=== PATIENT | male | born 1965 | race Caucasian/White ===

== ENCOUNTER → 2020-02-16 16:06 | Outpatient (BNVA) | payer BC, SELFPAY | PROVIDERS: Family Provider Family Medicine; PCP Family Medicine; Visit Provider Internal Medicine | DX: K70.31 Alcoholic cirrhosis of liver with ascites (principal); B19.20 Unspecified viral hepatitis C without hepatic coma; F10.10 Alcohol abuse, uncomplicated; K72.90 Hepatic failure, unspecified without coma | CPT/HCPCS: 80053; 82105; 85025 ==

== ENCOUNTER → 2020-02-18 09:19 | Day surgery (SDC) | payer BC, SELFPAY ==
--- NOTE | 2020-02-18 09:30 | US_ITS ---
WS: [id number] US abdomen lmt fluid [id number] REASON FOR EXAM: MIREYA FOR PARA FINDINGS: Ultrasound guidance for localization of ascites. Utilizing ultrasound at a depth of 2.13 cm and 4.51 cm paracentesis was performed. US/US abdomen lmt fluid [id number] IMPRESSION: Ultrasound localization for paracentesis.
[2020-02-18 09:59] VITALS: BP 116/68; PULSE 129; RESP 18; TEMP 36.9; BMI 41.5
--- NOTE | 2020-02-21 09:44 | PM.ACPR ---
Acute Procedures Paracentesis: Time out performed: Yes Indication: Ascites Procedure: therapeutic paracentesis Location: RLQ Local anesthetic used: lidocaine 1% Bedside ultrasound used: yes, Ascites confirmed and location marked Preparation: sterile prep and drape and 11 blade used to make angela in skin Amount of fluid obtained (ml): 4,200 Fluid: clear Post procedure exam: awake, alert Patient tolerated procedure: well
== END ==
PROVIDERS: Family Provider Family Medicine; PCP Family Medicine; Visit Provider Internal Medicine
DX: K70.31 Alcoholic cirrhosis of liver with ascites (principal)
CPT/HCPCS: 12345; 49082; 76705

== ENCOUNTER → 2020-05-05 11:19 | Day surgery (SDC) | payer BC, SELFPAY ==
--- NOTE | 2020-05-05 11:21 | US_ITS ---
WS: [id number] Abdominal ultrasound, limited. History: Evaluate for ascites. Comparison: None. All 4 quadrants are imaged by ultrasound to evaluate for ascites. Large amount of peritoneal ascites is identified. Abdominal wall is marked for paracentesis for Dr. Villalobos. US/US abdomen limited [id number] IMPRESSION: Large amount of ascites.
[2020-05-05 11:30] VITALS: BP 150/100; PULSE 97; RESP 20; TEMP 36.3; O2SAT 97; BMI 41.5
[2020-05-05 12:20] VITALS: BP 116/75; PULSE 81; RESP 20; O2SAT 96
[2020-05-05 13:21] VITALS: BP 146/84; PULSE 85; RESP 18; TEMP 36.3; O2SAT 98
--- NOTE | 2020-05-12 14:08 | PM.ACPR ---
Acute Procedures Paracentesis: Time out performed: Yes Indication: Ascites Procedure: therapeutic paracentesis Location: RLQ Local anesthetic used: lidocaine 1% Amount of anesthesia used (ml): 10 Bedside ultrasound used: yes, Ascites confirmed and location marked Preparation: sterile prep and drape Amount of fluid obtained (ml): 9,500 Fluid: clear Post procedure exam: awake, alert Patient tolerated procedure: well Complications: none
== END ==
PROVIDERS: PCP Family Medicine; Visit Provider Internal Medicine
DX: R18.8 Other ascites (principal)
CPT/HCPCS: 12345; 49082; 76705; J1100; J2405; J2704; J2710; J3010; J3490

== ENCOUNTER 2020-05-06 15:34 | Emergency (ER) | payer BC, SELFPAY ==
[2020-05-06 16:22] VITALS: BP 121/71; PULSE 97; RESP 19; TEMP 36.5; O2SAT 98; BMI 39.5
--- NOTE | 2020-05-06 17:06 | PC.NURSE ---
Read and agree with assessment
--- NOTE | 2020-05-06 17:29 | ED_ITS ---
HPI - General Adult General: Chief complaint: General Medical Stated complaint: leaking paracentesis site Time Seen by Provider: 05/06/20 16:52 Source: patient Mode of arrival: ambulatory Limitations: no limitations History of Present Illness: HPI narrative: Patient had a paracentesis performed yesterday by Dr. Villalobos. This is routine done for liver disease. Patient states since that time he has had persistent leaking of the fluid from his abdomen. He denies any lightheadedness, dizziness, fever, abdominal pain, chills or other complaints. He just has this persistent leak. Because he could not get it to stop he chose to come here for further evaluation and care. Associated symptoms: Deny chest pain, dyspnea, headache(s), nausea, rash, palpitations, syncope or vomiting Review of Systems Const: Denies: fever(s) Eyes: Denies: change in vision or blurry vision ENMT: Denies: throat pain or hoarseness Card: Denies: chest pain, palpitations, syncope, pre-syncope or dyspnea on exertion Resp: Denies: dyspnea, productive cough or non-productive cough GI: Denies: abdominal pain, nausea, vomiting or diarrhea : Denies: flank pain, dysuria, urinary frequency or urinary urgency Musc: Denies: neck pain, back pain or extremity pain Skin/Breast: Denies: rash or pruritus Neuro: Denies: headache(s), numbness in extremities, weakness in extremities or dizziness PFSH ED PFSH: Medical History Charcot's arthropathy Erectile dysfunction History of abdominal paracentesis Hx of esophageal varices Neuropathy Peyronie disease PVD (peripheral vascular disease) Surgical History Hx of umbilical hernia repair Hx of vasectomy Family History Grandfather CAD (coronary artery disease) Grandmother CAD (coronary artery disease) Cancer Father Cancer Social History Smoking and tobacco status: light tobacco smoker Alcohol intake: current Alcohol intake frequency: 0-2 Drinks per Day Alcohol type: beer Substance/Drug Use: never Adopted: No Caregiver/support person: No Lives independently: No Marital status: Current occupational status: employed History of recent travel: No Current gender identity: Male Physical Exam Const: COMMON NORMALS: no acute distress, patient oriented x3, no limitations, healthy appearing and well nourished GENERAL APPEARANCE: cooperative, well kempt and well developed HENMT: COMMON NORMALS: normocephalic, atraumatic, external ears normal, EAC's normal and Normal external nose present HEAD & SCALP: normal to inspection, normocephalic and atraumatic FACE & SINUS: normal facial exam and face symmetric NOSE: Normal external nose present and Normal nares present EXTERNAL EAR: Yes external ears normal EXTERNAL AUDITORY CANAL: EAC's normal MOUTH: Normal oral and palatal mucosa present, lip normal and tongue normal Eye: COMMON NORMALS: Equal, round and reactive pupils present and conjunctivae normal GENERAL EYE: appearance normal, both eyes and all related structures ALIGNMENT: Yes alignment normal PERIORBITAL: periorbital findings normal EYELID: eyelids normal CONJUNCTIVA: Yes conjunctivae normal SCLERA: sclerae normal PUPIL: Yes Equal, round and reactive pupils present Neck/C-Spine: COMMON NORMALS: full ROM, no lymphadenopathy, supple, no meningeal signs and no JVD GENERAL: Yes normal visual inspection and Yes trachea midline Chest: COMMONS NORMALS: normal inspection of the chest and normal palpation of entire chest wall Resp: COMMON NORMALS: normal respiratory effort, No retractions, No use of accessory muscles and clear to auscultation bilaterally EFFORT & INSPECTION: Yes able to speak in complete sentences and Yes symmetric chest movement AUSCULTATION: clear to auscultation bilaterally, no crackles, no rales, no rhonchi and no wheezes Cardio: COMMON NORMALS: no JVD, regular rate, regular rhythm, S1 normal heart sound present and S2 normal heart sound present RATE: regular rate RHYTHM: regular rhythm HEART SOUNDS: S1 normal heart sound present, S2 normal heart sound present, no click, no gallops, no murmurs, no rubs and abnormal split S2 GI: COMMON NORMALS: Soft to palpation and No hepatosplenomegaly present INSPECTION: Yes other (Small steady ascitic fluid leak from right lower quadrant of the abdomen) PALPATION: Yes Soft to palpation, No Tenderness to palpation present (GI), No Guarding due to palpation present (GI), No Rigid due to palpation, Yes No hepatosplenomegaly present, No Hernia present, No Palpable mass present and No Pulsatile mass present : COMMON NORMALS: Yes no CVA tenderness BLADDER/KIDNEY EXAM: Yes no CVA tenderness Back/Pelvis: COMMON NORMALS: no CVA tenderness, thoracic and lumbar spine normal to inspection, no thoracic nor lumbar tenderness and thoraco-lumbar ROM normal Extremity: COMMON NORMALS: normal to inspection, full ROM, capillary refill normal, no joint enlargement, no clubbing, cyanosis or edema and no calf tenderness Neuro: COMMON NORMALS: patient oriented x3, CN's II-XII intact bilaterally, moves all extremities, no focal motor deficits and no sensory deficits noted MENINGEAL SIGNS: Yes no meningeal signs SPEECH: speech normal Psych: COMMON NORMALS: mental status grossly normal, Normal thought process present, cooperative, normal affect, speech normal and activity/motor behavior normal APPEARANCE: Yes well kempt SPEECH: Yes normal speech THOUGHT PROCESS: Normal thought process present Skin: COMMON NORMALS: no rashes or lesions noted, turgor normal, no jaundice, no petechiae and no mottling GENERAL SKIN EXAM: no rashes or lesions noted and turgor normal Procedures Laceration Laceration 1: Description: stellate Depth: simple, single layer Local Anesthetic: lidocaine 1% Amount of anesthesia used (mL): 10 Skin layer closed with: nylon Size (cm): 4-0 Number of sutures: 1 Technique: other ([id number]) Course Vital Signs: Vital signs: Vital Signs Temperature 97.7 F 05/06/20 16:22 Pulse Rate 97 05/06/20 16:22 Respiratory Rate 19 H 05/06/20 16:22 Blood Pressure 121/71 05/06/20 16:22 Pulse Oximetry 98 05/06/20 16:22 MDM - General Adult MDM Narrative: Medical decision making narrative: Patient tolerated the [id number] stitch well. There is no further leaking or bleeding present. Patient was advised to return to the ER in 7 days to have this removed or to follow-up with Dr. Villalobos for removal. Discharge Plan Discharge Patient Disposition: Home Clinical Impression: Status post abdominal paracentesis Condition: Stable Prescriptions: New ciprofloxacin HCl [Cipro] 500 mg tablet 500 mg PO BID Qty: 20 RF: 0 metronidazole [Flagyl] 500 mg tablet 500 mg PO TID 10 Days Qty: 30 RF: 0 No Action vitamin E (dl, acetate) 400 unit capsule 400 unit PO DAILY RF: 0 pentoxifylline 400 mg tablet extended release 400 mg PO TID RF: 0 sildenafil 100 mg tablet 100 mg PO DAILY PRN (Reason: OTHER) RF: 0 potassium chloride [Klor-Con M20] 20 mEq tablet,ER particles/crystals 20 meq PO DAILY RF: 0 furosemide [Lasix] 40 mg tablet 40 mg PO BID RF: 0 ferrous sulfate 325 mg (65 mg iron) tablet 325 mg PO DAILY RF: 0 folic acid 400 mcg tablet 0.4 mg PO DAILY RF: 0 pantoprazole 40 mg tablet,delayed release (DR/EC) 40 mg PO DAILY RF: 0 meloxicam 7.5 mg tablet 7.5 mg PO DAILY RF: 0 vitamin B complex [B Complex-Vitamin B12] Tablet 1 tab PO DAILY RF: 0 thiamine HCl (vitamin B1) 500 mg tablet 500 mg PO DAILY RF: 0 spironolactone [Aldactone] 100 mg tablet 100 mg PO DAILY Qty: 90 RF: 3 tadalafil 20 mg tablet 20 mg PO DAILY PRN (Reason: sexual activity) Qty: 20 RF: 12 Cardizem 120 mg PO RF: 0 tramadol 50 mg PO DAILY RF: 0 Referrals: Yosvany Segovia MD [Primary Care Provider] - 7-10 days Jerry Villalobos MD [Physician] - 7-10 days Discharge Diet: Usual diet Discharge Activity: Increase activity as tolerated Patient Instructions: Laceration (ED) Activity Restrictions/Additional Instructions: Please return to the ER immediately for any of the signs or symptoms listed on your discharge instruction sheets, worsening/changing of your symptoms, you are not getting better as quickly as expected, or for ANY other cause or concerns. Return here, see Dr. Segovia or Dr. Villalobos for removal of your stitches in 7 to 10 days. Return to the ER for fever, return of leaking, or for any other cause for concern. 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
[2020-05-06] MEDS: lidocaine 1% INJ 20 mL INJECTION (17:56)
[2020-05-06 17:57] VITALS: BP 142/88; PULSE 96; RESP 18; O2SAT 96
== END 2020-05-06 18:00 | disposition home or self-care (01) ==
PROVIDERS: Emergency Provider Emergency Medicine; PCP Family Medicine
DX: T81.89XA Other complications of procedures, not elsewhere classified, initial encounter (principal); F17.210 Nicotine dependence, cigarettes, uncomplicated
CPT/HCPCS: 12001; 12345; 99281; 99282

== ENCOUNTER → 2020-05-12 11:13 | Day surgery (SDC) | payer BC, SELFPAY ==
--- NOTE | 2020-05-12 11:37 | US_ITS ---
WS: [id number] Limited abdomen ultrasound, 05/12/2020 Clinical Data: ascites Comparison: Limited abdomen ultrasound, 05/05/2020. Findings: There was a large amount of ascites in all 4 quadrants of the abdomen. Dr. Villalobos will perform the p aracentesis. US/US abdomen limited [id number] Impression: Large amount of ascites.
[2020-05-12 11:49] VITALS: BP 125/80; PULSE 101; RESP 18; TEMP 36.5; O2SAT 98; BMI 39.5
--- NOTE | 2020-05-12 14:05 | PM.ACPR ---
Acute Procedures Paracentesis: Time out performed: Yes Indication: Ascites Procedure: therapeutic paracentesis Location: LLQ Local anesthetic used: lidocaine 1% Amount of anesthesia used (ml): 10 Bedside ultrasound used: yes, Ascites confirmed and location marked Amount of fluid obtained (ml): 11,000 Fluid: clear Post procedure exam: awake, alert Patient tolerated procedure: well Complications: none Additional comments: Since he has a propensity towards leakage after his procedure I closed the stoma with 1 vertical mattress suture with 2-0 suture.
== END ==
LOC: RAD 11:17 → OPS 11:41
PROVIDERS: PCP Family Medicine; Visit Provider Internal Medicine
DX: R18.8 Other ascites (principal)
CPT/HCPCS: 12345; 49082; 76705

== ENCOUNTER → 2020-05-19 12:42 | Outpatient (BNVA) | payer BC, SELFPAY | PROVIDERS: PCP Family Medicine | DX: Z01.818 Encounter for other preprocedural examination (principal); K72.90 Hepatic failure, unspecified without coma; Z20.828 Contact with and (suspected) exposure to other viral communicable diseases | CPT/HCPCS: 87635 ==

== ENCOUNTER 2020-05-24 07:06 | Day surgery (SDC) | payer BC, SELFPAY ==
[2020-05-23 14:44] VITALS: BMI 40.6
[2020-05-24] VITALS (12 sets, daily range): BP systolic 98–142; BP diastolic 67–86; PULSE 94–118; RESP 12–20; TEMP 36.1–36.6; O2SAT 95–98
[2020-05-24] MEDS: sodium chloride 0.9% 1,000 ML 30 ML IV (07:53)
[2020-05-24] MEDS: vancomycin 1,000 MG in sodium chloride 0.9% 250 ML 250 MG IV (07:53)
--- NOTE | 2020-05-24 07:58 | P.ANESASSM_ITS ---
Pre-Anesthetic Assessment Pre-Anesthetic Assessment: Height/Weight: Height 1.83 m Weight 136.078 kg Temp Pulse Resp BP Pulse Ox 97.7 F 100 18 139/86 98 05/24/20 07:25 05/24/20 07:25 05/24/20 07:25 05/24/20 07:25 05/24/20 07:25 Preop Diagnosis: Ascites Proposed Procedure: Operation Date: 05/24/20 08:20 Proposed Procedures p Peritoneal Catheter [id number]/ K70.310 ascites(Not Applicable) - Keith Brown MD Familial anesthetic complications: Said he developed irregular heartbeat during his egd w/ banding of his varices Was Beta Rosana taken within 24 hours: N/A Last intake: Intake Last Liquid Date 05/24/20 Last Liquid Time 06:00 Last Solid Date 05/23/20 Last Solid Time 18:30 Social: Social History: Alcohol and Tobacco Comment: heavy drinker in past (cirrhosis) Exam: Pre-Anes Outpt Exam: alert, oriented x 3, clear to auscultation b ilaterally and regular rate & rhythm Airway: Cervical ROM: WNL MP: 2 Dentition: Chipped Additional comments: large neck circumference CV/HEM: CV/HEM: Afib, HTN and PVD : : None reported Hepatic: Hepatic: Cirrohsis Comments: esophageal varices Metabolic: Metabolic: Morbid obesity and Thyroid Musc/skel: Musc/skel: OA/DJD Neuropsych: Neuropsych: Neuropathy and Seizure (several years ago d/t etoh withdrawal) Anesthetic Plan: ASA status: 4 Anesthesia: MAC Risk of > 500 ml blood loss (7ml/kg in children): No Meds/Allergies Current Medications: Current Medications Generic Name Dose Route Start Last Admin Trade Name Freq PRN Reason Stop Dose Admin Vancomycin HCl 1,0 00 mg/ 250 mls @ 250 mls /hr 05/24/20 07:04 05/24/20 07:53 Sodium Chloride IV 05/24/20 08:03 250 mls/hr ONCE ONE Administration Protocol Sodium Chloride 1,000 mls @ 30 ml s/hr 05/24/20 07:15 05/24/20 07:53 Sodium Chloride 0.9% IV 05/25/20 07:14 30 mls/hr .Q24H DHAVAL Administration PFSH Anesthesia PFSH: Medical History Charcot's arthropathy End-stage liver disease Erectile dysfunction History of abdominal paracentesis Hx of esophageal varices Neuropathy Peyronie disease PVD (peripheral vascular disease) Surgical History H/O colonoscopy 10-12 yrs H/O esophagogastroduodenoscopy History of tonsillectomy Hx of umbilical hernia repair Hx of vasectomy Family History Grandfather CAD (coronary artery disease) Grandmother CAD (coronary artery disease) Cancer Father Cancer Denies family history of Anesthesia complication Bleeding disorder Social History Smoking and tobacco status: light tobacco smoker Alcohol intake: current Alcohol intake frequency: 0-2 Drinks per Day Alcohol type: beer Adopted: No Caregiver/support person: No Lives independently: No Marital status: Current occupational status: employed History of recent travel: No Current gender identity: Male Data Anesthesia CBC & Chem 7: 05/24/20 07:51 05/24/20 07:51 Cardiac Studies: No Data to Display
[2020-05-24 07:59] LABS: Basophils # 0.1 10^3/uL (0.0-0.1); Basophils % 0.9 %; Eosinophils # 0.1 10^3/uL (0.0-0.8); Eosinophils % 1.7 %; Hematocrit 39.6 % (42.0-52.0); Hemoglobin 13.9 g/dL (11.7-16.6); Lymphocytes # 0.9 10^3/uL (0.8-4.8); Lymphocytes % 11.5 %; Mean Corpuscular HGB Conc 35.1 g/dL (30.0-36.0); Mean Corpuscular Hemoglobin 36.1 pg (28.0-34.0); Mean Corpuscular Volume 102.9 fL (80-94); Mean Platelet Volume 9.7 fL (7.4-10.4); Monocytes # 1.1 10^3/uL (0.2-0.9); Monocytes % 14.8 %; Neutrophils # 5.35 10^3/uL (1.8-7.7); Neutrophils % 70.8 %; Nucleated Red Blood Cells % 0 %; Platelet Count 131 10^3/cmm (130-400); Red Blood Count 3.85 10^6/uL (4.1-5.3); Red Cell Distribution Width 13.6 % (12.1-15.1); White Blood Count 7.6 10^3/uL (4.0-10.0)
--- NOTE | 2020-05-24 08:00 | ECG_ITS ---
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 Measurements Intervals [place] Rate: 110 P: VT: -1 QRS: 75 QRSD: 102 T: 33 QT: 349 QTc: 474 Interpretive Statements ATRIAL FIBRILLATION WITH RAPID VENTRICULAR RESPONSE LOW QRS VOLTAGE [QRS DEFLECTION < 0.5/1.0 mV IN LIMB/CHEST LEADS] Compared to ECG 06/19/2018 15:25:26 Sinus rhythm no longer present Myocardial infarct finding no longer present Electronically Signed On 05-24-2020 19:38:03 CDT by Odin Eddy M.D. [id number]
[2020-05-24 08:23] LABS: Blood Urea Nitrogen 26 mg/dL (6-20); Calcium 8.6 mg/dL (8.5-10.5); Carbon Dioxide 26 mmol/L (22-29); Chloride 88 mmol/L (98-107); Glomerular Filtration Rate 44.9 mL/min (90-130); Glucose 105 mg/dL (65-115); Osmolality Calculated 251 mOsm/kg (285-295); Sodium 122 mmol/L (136-145)
--- NOTE | 2020-05-24 08:46 | W.PM.OPSUD ---
Surgery/Procedure H&P Update DATE OF PROCEDURE: May 24, 2020 DATE H&P PERFORMED: 05/19/20 H&P UPDATE INFORMATION: I have reviewed H&P completed within last 30 days, I have examined patient prior to procedure and No changes to prior documentation PREOP DIAGNOSIS: Ascites PLANNED PROCEDURE: Operation Date: 05/24/20 08:20 Proposed Procedures p Peritoneal Catheter [id number]/ K70.310 ascites(Not Applicable) - Keith Brown MD
--- NOTE | 2020-05-24 09:48 | ECG_ITS ---
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 Measurements Intervals [place] Rate: 106 P: CO: -1 QRS: 71 QRSD: 100 T: 17 QT: 345 QTc: 460 Interpretive Statements ATRIAL FIBRILLATION WITH RAPID VENTRICULAR RESPONSE LOW QRS VOLTAGE IN EXTREMITY LEADS [QRS DEFLECTION < 0.5 mV IN LIMB LEADS] POSSIBLE ANTERIOR MYOCARDIAL INFARCTION [30 ms Q WAVE IN V3/V4, OR R < 0.2 mV IN V4], PROBABLY OLD ABNORMAL RHYTHM ECG Compared to ECG 05/24/2020 08:28:50 Myocardial infarct finding now present Electronically Signed On 05-24-2020 19:41:49 CDT by Odin Eddy M.D. [id number]
--- NOTE | 2020-05-24 09:51 | PM.OP ---
Operative Report Date of procedure: May 24, 2020 Pre-op Diagnosis: Ascites secondary to end-stage liver disease Post-op diagnosis: same Post-op Diagnosis: 9 L of ascites fluid drained Procedure Done: Placement of tunneled peritoneal catheter for ascites Pathology: none sent Surgeon: Keith Brown Anesthesia: General Condition: stable Disposition: PACU Procedure: The patient was taken to the operating room and intubated under general anesthesia after IV antibiotic had been administered. The abdomen was prepped and draped in a sterile manner. Under ultrasound guidance an introducer needle was used to access the peritoneal cavity with drainage of ascitic fluid. A guidewire was passed through the introducer needle and the introducer needle was removed. The skin incision was extended using 11 blade and a dilator sheath was passed over the guidewire and inner dilator and the guidewire was removed. A peritoneal catheter was introduced as a dilator peel-away sheath was removed. The proximal end of the catheter was attached to a tunneler and a subcutaneous tunnel was created to exit the catheter site about 5 cm from the entry site into the peritoneal cavity. 9 L of ascites fluid was drained. The skin incision was closed with 4-0 Monocryl and surgical glue. The patient was extubated and transferred to recovery room in stable condition.
[2020-05-24] MEDS: dilTIAZem ER (24HR) 120 mg Capsule PO (10:20)
--- NOTE | 2020-05-24 11:12 | P.ANESPOST_ITS ---
Inpatient post-anesthesia follow up: Airway intact: Yes Vital signs: Temperature 97.9 F Pulse Rate 101 Respiratory Rate 18 Blood Pressure 114/75 Pulse Oximetry 96 Oxygen Delivery Me thod Room Air Oxygen Flow Rate 8 Fraction of Inspir ed Oxygen Hydration adequate: Yes Nausea and vomiting: No Pain level: 1 Mental status: Baseline Additional Comments: Patient had increased tachycardia immediately post op. Given esmolol 70 mg in divided doses and diltazem ER 120 mg PO. Repeat EKG concerning for mention of Q waves, but non seen by this provider. Consulted Dr. Sanchez automotive repair technician collections technician to evaluate EKG. he agreed with no Q waves. Patients HR remained < 110 in phase II. Patient was discharged with instructions to f/u with primary care provider regarding his afib and Scr and instructed to merchandise pickup/receiving associate his refill for diltiazem
--- NOTE | 2020-05-24 11:44 | SUR.PHASEII ---
1105 dressing removed from peritoneal catheter from abdomen per lakia ely combination technician and instructed pt and mother on how to drain fluid from abdomen and new dsg with 4x4's and tegederm applied, pt and mother verbalized understanding
--- NOTE | 2020-05-24 11:50 | SUR.PHASEII ---
1130 instructed pt to f/u with dr li if needed and to call for any problems and verbalized understanding
== END 2020-05-24 11:30 | disposition home or self-care (01) ==
PROVIDERS: Anesthesiology; PCP Family Medicine; Visit Provider Surgery
PROC: (CPT 49421; principal; 2020-05-24 08:20)
DX: R18.8 Other ascites (principal); K72.90 Hepatic failure, unspecified without coma; I48.91 Unspecified atrial fibrillation; I10 Essential (primary) hypertension; I73.9 Peripheral vascular disease, unspecified; E66.01 Morbid (severe) obesity due to excess calories; M19.90 Unspecified osteoarthritis, unspecified site; F17.210 Nicotine dependence, cigarettes, uncomplicated; M14.60 Charcot's joint, unspecified site; N52.9 Male erectile dysfunction, unspecified; G62.9 Polyneuropathy, unspecified
CPT/HCPCS: 49421; 12345; 36415; 80048; 85025; 93005; 96365; C1750; J3370; J3490; J7030; J7050

== ENCOUNTER 2020-05-28 20:24 | Inpatient (IN) | payer BC, SELFPAY ==
[2020-05-28 20:24] VITALS: BP 132/72; PULSE 91; RESP 18; O2SAT 96
[2020-05-28 20:27] VITALS: BP 114/79; PULSE 112; RESP 18; TEMP 36.7; O2SAT 99; BMI 40.6
--- NOTE | 2020-05-28 20:34 | W.ED.GENADLT ---
HPI - General Adult General: Chief complaint: General Medical Stated complaint: Abd Drain Complication Time Seen by Provider: 05/28/20 20:29 Source: patient and EMS Mode of arrival: EMS Limitations: no limitations History of Present Illness: HPI narrative: 55-year-old male who has a history of end-stage liver disease. Patient states that he has had leakage from his peritoneal drainage tube that was placed last week. He states that a slight leakage around it. He denies any pain or fever. Denies any worsening or improving factors. Is no leaking at the time. Associated symptoms: Deny chest pain, dyspnea, headache(s), nausea, rash or vomiting Review of Systems Const: Denies: fever(s), chills, body aches or change in appetite Eyes: Denies: blurry vision or eye discomfort ENMT: Denies: throat pain or dental pain Card: Denies: chest pain Resp: Denies: dyspnea GI: Denies: abdominal pain, nausea, vomiting or diarrhea : Denies: dysuria Musc: Denies: neck pain or back pain Skin/Breast: Denies: rash Neuro: Denies: headache(s) Psych: Denies: depression Avinash/Lymph: Denies: easy bruising All/Imm: Denies: urticaria PFSH ED PFSH: Medical History (Updated 05/29/20 @ 09:13 by Wanda Salazar MD) Charcot's arthropathy End-stage liver disease Erectile dysfunction History of abdominal paracentesis Hx of esophageal varices Neuropathy Peyronie disease PVD (peripheral vascular disease) Surgical History (Updated 05/29/20 @ 09:16 by Wanda Salazar MD) H/O colonoscopy 10-12 yrs H/O esophagogastroduodenoscopy History of tonsillectomy Hx of umbilical hernia repair Hx of vasectomy Status post surgery (05/24/20) peritoneal catheter for ascites Family History Grandfather CAD (coronary artery disease) Grandmother CAD (coronary artery disease) Cancer Father Cancer Denies family history of Anesthesia complication Bleeding disorder Social History Smoking and tobacco status: light tobacco smoker Alcohol intake: current Alcohol intake frequency: 0-2 Drinks per Day Alcohol type: beer Adopted: No Caregiver/support person: No Lives independently: No Marital status: Current occupational status: employed History of recent travel: No Current gender identity: Male Physical Exam Const: COMMON NORMALS: no acute distress, patient oriented x3 and healthy appearing HENMT: COMMON NORMALS: normocephalic and atraumatic HEAD & SCALP: normocephalic and atraumatic Eye: COMMON NORMALS: Equal, round and reactive pupils present and EOMs intact bilaterally PUPIL: Yes Equal, round and reactive pupils present Neck/C-Spine: COMMON NORMALS: full ROM and supple Chest: COMMONS NORMALS: normal inspection of the chest and normal palpation of entire chest wall Resp: COMMON NORMALS: normal respiratory effort, No retractions, No use of accessory muscles and clear to auscultation bilaterally AUSCULTATION: clear to auscultation bilaterally Cardio: COMMON NORMALS: regular rate, regular rhythm and No murmurs present (Cardio) RATE: regular rate RHYTHM: regular rhythm GI: COMMON NORMALS: Normal to inspection, nondistended, normoactive bowel sounds present, Soft to palpation, non-tender and no masses PALPATION: Yes Soft to palpation OTHER: Peritoneal drain placed in the right lower quadrant with no drainage at this time. Extremity: COMMON NORMALS: normal to inspection and full ROM Neuro: COMMON NORMALS: patient oriented x3, moves all extremities and no focal motor deficits Psych: COMMON NORMALS: mental status grossly normal, Normal thought process present and cooperative THOUGHT PROCESS: Normal thought process present Skin: COMMON NORMALS: no rashes or lesions noted and no wounds GENERAL SKIN EXAM: no rashes or lesions noted Course Vital Signs: Vital signs: Vital Signs Temperature 98.5 F 05/29/20 11:44 Pulse Rate 92 05/29/20 11:44 Respiratory Rate 20 H 05/29/20 11:44 Blood Pressure 128/70 05/29/20 11:44 Pulse Oximetry 98 05/29/20 11:44 MDM - General Adult MDM Narrative: Medical decision making narrative: Patient presents here with end-stage liver disease also has draining from his paracentesis site. Patient is well-appearing here. He does have a hyponatremia and when I walked him he was quite ataxic. This is been going on for days. His CT head here is normal. I spoke to hospitalist and will admit for observation. Lab Data: Labs: Lab Results 05/28/20 05/28/20 05/28/20 Range/Units 20:40 20:40 20:40 WBC 8.2 (4.0-10.0) 10^3/ uL RBC 3.90 L (4.1-5.3) 10^6/u L Hgb 14.2 (11.7-16.6) g/dL Hct 40.3 L (42.0-52.0) % MCV 103.3 H (80-94) fL MCH 36.4 H (28.0-34.0) pg MCHC 35.2 (30.0-36.0) g/dL RDW 14.1 (12.1-15.1) % Plt Count 124 L (130-400) 10^3/c mm MPV 9.9 (7.4-10.4) fL Neut % (Auto) 82.9 % Lymph % (Auto) 6.2 % Spencer % (Auto) 9.0 % Eos % (Auto) 0.9 % Baso % (Auto) 0.5 % Neut # (Auto) 6.78 (1.8-7.7) 10^3/u L Lymph # (Auto) 0.5 L (0.8-4.8) 10^3/u L Spencer # (Auto) 0.7 (0.2-0.9) 10^3/u L Eos # (Auto) 0.1 (0.0-0.8) 10^3/u L Baso # (Auto) 0.0 (0.0-0.1) 10^3/u L Nucleated RBC % (a uto) 0 % Nucleated RBCs # 0.0 /100WBC Sodium 126 L (136-145) mmol/L Potassium 4.9 (3.5-5.1) mmol/L Chloride 92 L (98-107) mmol/L Carbon Dioxide 26 (22-29) mmol/L Anion Gap 12.9 (5-19) BUN 25 H (6-20) mg/dL Creatinine 1.6 H (0.7-1.2) mg/dL GFR Calculation 44.9 L (90-130) mL/min Glucose 109 (65-115) mg/dL Calculated Osmolal ity 259 L (285-295) mOsm/k g Calcium 8.7 (8.5-10.5) mg/dL Total Bilirubin 2.4 H (0.15-1.2) mg/dL AST 57 H (0-40) U/L ALT 42 H (0-41) U/L Alkaline Phosphata se 92 (40-130) IU/L Ammonia 38 (16-60) umol/L Total Protein 6.7 (6.6-8.7) g/dL Albumin 3.4 L (3.5-5.2) g/dL Globulin 3.3 (1.3-4.6) g/dL Ethyl Alcohol (0-10) mg/dL 05/28/20 Range/Units 20:40 WBC (4.0-10.0) 10^3/ uL RBC (4.1-5.3) 10^6/u L Hgb (11.7-16.6) g/dL Hct (42.0-52.0) % MCV (80-94) fL MCH (28.0-34.0) pg MCHC (30.0-36.0) g/dL RDW (12.1-15.1) % Plt Count (130-400) 10^3/c mm MPV (7.4-10.4) fL Neut % (Auto) % Lymph % (Auto) % Spencer % (Auto) % Eos % (Auto) % Baso % (Auto) % Neut # (Auto) (1.8-7.7) 10^3/u L Lymph # (Auto) (0.8-4.8) 10^3/u L Spencer # (Auto) (0.2-0.9) 10^3/u L Eos # (Auto) (0.0-0.8) 10^3/u L Baso # (Auto) (0.0-0.1) 10^3/u L Nucleated RBC % (a uto) % Nucleated RBCs # /100WBC Sodium (136-145) mmol/L Potassium (3.5-5.1) mmol/L Chloride (98-107) mmol/L Carbon Dioxide (22-29) mmol/L Anion Gap (5-19) BUN (6-20) mg/dL Creatinine (0.7-1.2) mg/dL GFR Calculation (90-130) mL/min Glucose (65-115) mg/dL Calculated Osmolal ity (285-295) mOsm/k g Calcium (8.5-10.5) mg/dL Total Bilirubin (0.15-1.2) mg/dL AST (0-40) U/L ALT (0-41) U/L Alkaline Phosphata se (40-130) IU/L Ammonia (16-60) umol/L Total Protein (6.6-8.7) g/dL Albumin (3.5-5.2) g/dL Globulin (1.3-4.6) g/dL Ethyl Alcohol < 10 (0-10) mg/dL Discharge Plan Discharge Patient Disposition: Admitted As Inpatient Admit Provider: Wanda Salazar Clinical Impression: End-stage liver disease, Ataxia, Acute hyponatremia Condition: Stable Referrals: Yosvany Segovia MD [Primary Care Provider] - Discharge Date/Time: 05/29/20 05:00 Coding Level of Care Code ED Service Mechanic for Chg Fwd Exam Comprehensive
[2020-05-28 20:45] LABS: Basophils % 0.5 %; Eosinophils # 0.1 10^3/uL (0.0-0.8); Eosinophils % 0.9 %; Hematocrit 40.3 % (42.0-52.0); Hemoglobin 14.2 g/dL (11.7-16.6); Lymphocytes # 0.5 10^3/uL (0.8-4.8); Lymphocytes % 6.2 %; Mean Corpuscular HGB Conc 35.2 g/dL (30.0-36.0); Mean Corpuscular Hemoglobin 36.4 pg (28.0-34.0); Mean Corpuscular Volume 103.3 fL (80-94); Mean Platelet Volume 9.9 fL (7.4-10.4); Monocytes # 0.7 10^3/uL (0.2-0.9); Neutrophils # 6.78 10^3/uL (1.8-7.7); Neutrophils % 82.9 %; Nucleated Red Blood Cells % 0 %; Platelet Count 124 10^3/cmm (130-400); Red Cell Distribution Width 14.1 % (12.1-15.1); White Blood Count 8.2 10^3/uL (4.0-10.0)
[2020-05-28 21:11] LABS: Alanine Aminotransferase 42 U/L (0-41); Albumin Level 3.4 g/dL (3.5-5.2); Alkaline Phosphatase 92 IU/L (40-130); Ammonia 38 umol/L (16-60); Anion Gap 12.9 (5-19); Aspartate Amino Transferase 57 U/L (0-40); Blood Urea Nitrogen 25 mg/dL (6-20); Calcium 8.7 mg/dL (8.5-10.5); Carbon Dioxide 26 mmol/L (22-29); Chloride 92 mmol/L (98-107); Globulin 3.3 g/dL (1.3-4.6); Glomerular Filtration Rate 44.9 mL/min (90-130); Glucose 109 mg/dL (65-115); Osmolality Calculated 259 mOsm/kg (285-295); Potassium 4.9 mmol/L (3.5-5.1); Sodium 126 mmol/L (136-145); Total Bilirubin 2.4 mg/dL (0.15-1.2); Total Protein 6.7 g/dL (6.6-8.7)
[2020-05-28 21:24] VITALS: BP 124/83; PULSE 84; RESP 17; O2SAT 96
[2020-05-28 22:21] VITALS: BP 139/82; PULSE 97; RESP 18; O2SAT 97
--- NOTE | 2020-05-28 22:21 | CTR_ITS ---
PROCEDURE INFORMATION: Exam: CT Head Without Contrast Exam date and time: 05/28/2020 10:29 PM Age: 55 years old Clinical indication: Dizziness; Additional info: Dizzy TECHNIQUE: Imaging protocol: Computed tomography of the head without contrast. Radiation optimization: All CT scans at this facility use at least one of these dose optimization techniques: automated exposure control; mA and/or kV adjustment per patient size (includes targeted exams where dose is matched to clinical indication); or iterative reconstruction. Other technique: STROKE PROTOCOL was implemented. COMPARISON: CT head wo con* [id number] 2018-06-19 16:27 RADIATION DOSE METRICS: Total DLP (mGy-cm): 720.55 FINDINGS: Brain: Normal. No hemorrhage. Unremarkable white matter. No mass effect. Ventricles: No ventriculomegaly. Bones/joints: Chronic left orbital floor fracture. Paranasal sinuses: Visualized sinuses are unremarkable. No fluid levels. Mastoid air cells: Visualized mastoid air cells are well aerated. Soft tissues: Unremarkable. CT/CT head wo con* [id number] IMPRESSION: 1. No acute intracranial abnormality. 2. [place] Stroke Program Early CT Score (ASPECTS) = 10. 3. Chronic left orbital floor fracture. Radiation Dose CTDIVOL = (mGy): DLP = 720.55 (mGy-cm)
[2020-05-28] MEDS: sodium chloride 0.9% 500 ML 999 ML IV (23:06)
[2020-05-28 23:53] LABS: Alcohol Level < 10 mg/dL (0-10)
--- NOTE | 2020-05-29 00:10 | P.HP_ITS ---
Providers/Chief Complaint Primary Care Provider: Yosvany Segovia MD Chief Complaint: Abd Drain Complication History of Present Illness Yosvany Soto is a 55 year old male who presented to the emergency room due to alteration of mental status. He has been excessively sleepy the last day or 2 and today just would not wake up. His mother kept trying to reach him and eventually had somebody go check on him. He had a peritoneal drain placed recently and he has continued to leak fluid around the drain causing him to be constantly wet. He has had increasing difficulty with his gait which on talking with him has progressively worsened over the last few months as well as increasing shaking in his hands. I am unable to get a specific last date of alcohol intake from him. He states that he has quit and will tell me that it is sometime recently. In the emergency room he was noted to have a normal ammonia level. His sodium was found to be low and he received some IV fluids and initially plan was for him to be discharged home however he was quite ataxic. He lives alone and was not felt safe for discharge. He reports taking his medication as prescribed. No recent fever. Denies abdominal pain beyond some discomfort at the site where the drain is. He has continued to have output from his peritoneal drain but I am unable to get a clear sense of how often and how much is being drained. Patient was seen at 11:45 PM in the emergency room on May 28 Review of Systems Const: Reports: change in appetite, change in weight, fatigue and malaise; Denies: fever(s) or chills Eyes: Denies: change in vision ENMT: Reports: nasal congestion; Denies: throat pain or dry mouth Card: Reports: edema and dyspnea on exertion; Denies: chest pain or palpitations Resp: Denies: productive cough or non-productive cough GI: Reports: other (Frequent draining of clear fluid from the drain site); Denies: nausea, vomiting, diarrhea or constipation : Denies: difficulty urinating Musc: Reports: other (Mild aches and pains, nothing specific) Skin/Breast: Denies: rash or pruritus Neuro: Reports: weakness in extremities, difficulty walking, dizziness and confusion; Denies: headache(s), numbness in extremities or frequent falls Psych: Denies: anxiety or depression Avinash/Lymph: Denies: easy bruising or easy bleeding Medications/Allergies Home Medications Medication Instructions Recorded Confirmed Last Taken Type ferrous sulfate 325 mg (65 mg 325 mg PO DAILY 01/04/20 05/24/20 05/22/20 History iron) tablet folic acid 400 mcg tablet 0.4 mg PO DAILY 01/04/20 05/24/20 05/23/20 History furosemide 40 mg tablet 60 mg PO BID 01/04/20 05/24/20 05/23/20 History meloxicam 7.5 mg tablet 7.5 mg PO DAILY 01/04/20 05/24/20 05/23/20 History pantoprazole 40 mg tablet,delayed 40 mg PO DAILY 01/04/20 05/24/20 05/23/20 History release pentoxifylline 400 mg 400 mg PO TID 01/04/20 05/24/20 05/23/20 History tablet,extended release potassium chloride 20 mEq 20 meq PO DAILY 01/04/20 05/24/20 05/23/20 History tablet,extended release(part/cryst) sildenafil 100 mg tablet 100 mg PO DAILY PRN 01/04/20 05/23/20 Unknown History thiamine HCl (vitamin B1) 500 mg 500 mg PO DAILY 01/04/20 05/24/20 05/23/20 History tablet vitamin B complex 1 tab PO DAILY 01/04/20 05/24/20 05/23/20 History vitamin E (dl, acetate) 400 unit 400 unit PO DAILY 01/04/20 05/24/20 05/23/20 History capsule tadalafil 20 mg tablet 20 mg PO DAILY PRN #20 tab 01/10/20 05/23/20 Unknown Rx spironolactone 100 mg tablet 100 mg PO DAILY #90 tab 02/16/20 05/24/20 05/23/20 Rx tramadol 50 mg PO BID PRN 05/05/20 05/24/20 05/23/20 History diltiazem HCl 120 mg PO Q6H 05/12/20 05/24/20 05/23/20 06:00 History levothyroxine 25 mcg PO DAILY 05/12/20 05/24/20 05/22/20 History Allergies Allergy/AdvReac Type Severity Reaction Status Date / Time Penicillins Allergy ALGY-Difficulty Verified 05/24/20 07:25 Breathing Sulfa (Sulfonamide Allergy Unknown Verified 05/24/20 07:25 Antibiotics) PFSH Acute PFSH: Medical History Charcot's arthropathy End-stage liver disease Erectile dysfunction History of abdominal paracentesis Hx of esophageal varices Neuropathy Peyronie disease PVD (peripheral vascular disease) Surgical History H/O colonoscopy 10-12 yrs H/O esophagogastroduodenoscopy History of tonsillectomy Hx of umbilical hernia repair Hx of vasectomy Status post surgery (05/24/20) peritoneal catheter for ascites Family History Grandfather CAD (coronary artery disease) Grandmother CAD (coronary artery disease) Cancer Father Cancer Denies family history of Anesthesia complication Bleeding disorder Social History Smoking and tobacco status: light tobacco smoker Alcohol intake: current Alcohol intake frequency: 0-2 Drinks per Day Alcohol type: beer Adopted: No Caregiver/support person: No Lives independently: No Marital status: Current occupational status: employed History of recent travel: No Current gender identity: Male Vitals/I&O/Wt Last Vital Signs Temp 98.1 F 05/28/20 20:27 Pulse 97 05/28/20 22:21 Resp 18 05/28/20 22:21 BP 139/82 05/28/20 22:21 Pulse Ox 97 05/28/20 22:21 Weight last 48 hrs Weight 136.078 kg Physical Exam Const: OTHER: Alert, oriented x3, cooperative HENMT: OTHER: Normocephalic atraumatic, moist mucus membranes Eye: OTHER: Pupils equally round and reactive to light Neck/C-Spine: OTHER: Supple, no thyromegaly or lymphadenopathy Resp: OTHER: Clear to auscultation bilaterally although with some decreased in aeration, no rales, rhonchi or wheezes noted, no accessory muscle use noted. Able to lie flatter than I would expect based on the degree of edema that he has Cardio: OTHER: Regular rate and rhythm, no murmurs gallops or rubs. Heart sounds are slightly distant GI: OTHER: Abdomen is soft, there is some mild tenderness around the drain site but there is no erythema, no rebound or guarding. Patient has a peritoneal drain in the right lower quadrant with oozing of serous material by pressing on the abdomen. The abdominal pannus is peau d'orange in appearance and edematous. There is no ecchymoses noted. Bowel sounds are positive. : OTHER: There is some scrotal edema as well as penile edema noted the penile edema primarily involves the foreskin but the urethral meatus is visible. Despite the edema of the foreskin is retractable. Extremity: NARRATIVE EXTREMITY EXAM: Pitting edema noted to both lower extremities Neuro: OTHER: Face is symmetric, speech is clear when he does talk though he is a little bit confused at times, handgrip is equal. He has some flapping asterixis. I did not currently assess gait. Psych: OTHER: Sleepy, tries to answer questions appropriately but cannot find the answers all the time. Cooperative when he is awake enough to be so Skin: OTHER: Chronic stasis changes noted to lower extremity Data : 05/28/20 20:40 05/28/20 20:40 Other Labs: Liver Function 05/28/20 Range/Units 20:40 Total Bilirubin 2.4 H (0.15-1.2) mg/dL AST 57 H (0-40) U/L ALT 42 H (0-41) U/L Alkaline Phosphatase 92 (40-130) IU/L Albumin 3.4 L (3.5-5.2) g/dL A&P Assessment and plan (1) Acute encephalopathy: I suspect this is metabolic in nature related to acute renal failure. No current evidence of hepatic encephalopathy or acute alcohol intoxication. Patient sodium is slightly low but not low enough that I would expect it to cause no alteration in mental status described Status: Acute (2) Acute renal failure: Patient reports being hospitalized within the past month and [facility]. He says he had some type of a CT scan done there. In February of this year his creatinine was 0.4 and today it is up to 1.6. Blood pressures are currently okay but 1 does wonder if he has been having hypotension and some ATN. Contrast-induced nephropathy is another consideration and do have to keep in mind the possibility of hepatorenal syndrome. Urinalysis is still pending as well. Status: Acute Qualifiers: Acute renal failure type: with acute tubular necrosis Qualified Code(s): N17.0 - Acute kidney failure with tubular necrosis (3) Ataxia: According to the mother this is a new finding but in talking with the pat ient has been progressively worsening over time. He describes a unsteady gait. In addition he has had increasing flapping tremors of his upper extremities. My strong suspicion is that this is related to chronic alcohol use. Status: Acute (4) Ascites due to alcoholic cirrhosis: Status post recent peritoneal drain placement. He has continued to have oozing around the peritoneal drain site fairly continuously. Is not known how much he is draining or what the schedule is at home. Status: Chronic (5) End-stage liver disease: Related to chronic alcohol use. He has chronically elevated liver enzymes, slightly low albumin, some mild thrombocytopenia, macrocytosis, ascites, as well as esophageal varices. Status: Chronic (6) ETOH abuse: History of chronic alcoholism though patient denies current alcohol use. Blood alcohol level was negative today. I am not sure exactly when he quit. Status: Chronic Additional A&P Information Observation admission presently Serial neuro exams Received thiamine in the emergency room, will continue along with folate and multivitamin Patient received some IV fluids in the emergency room but he clinically appears to be total body volume overloaded to me We will give him a dose of Lasix and see how he responds to this PT evaluation in the morning We will need to clarify home medications and resume as appropriate, begin mind current renal dysfunction Consider discussing with Dr. Brown for continued fluid leak from the peritoneal drain site as well as to clarify instructions for her chronic drainage needs Strict I's and O's and daily weights Urinalysis has been ordered Fluid restricted diet I have requested medical records from [facility] where patient has been hospitalized within the past month to get an idea of how he was there and what they did. His mother describes him having some banding of his esophageal varices. She states they were not bleeding. Subcu heparin for DVT prophylaxis Protonix Supportive care otherwise Plans discussed with patient as well as his mother and both were given an opp ortunity to ask questions Full code Attestations Medical Necessity Statement*: Currently anticipated stay less than 2 midnights in gentleman with a history of alcoholic cirrhosis associated with ascites p resenting with some alteration of mental status and ataxia. Sounds like some of this is been present to some degree over the last few months but worse in the last couple of days. He does have some significant edema on examination as well as evidence of some acute renal failure compared to our prior available labs from February of this year. We will see if he improves after some IV diuresis. His mother states that this is very different for him so he may ultimately require transition to inpatient depending on clinical course Coding Level of Care Code Acute Finance Mgr for [facility] Fwd Diagnoses Acute encephalopathy G93.40 Acute renal failure N17.0 Acute renal failure type: with acute tubular necrosis Ataxia R27.0 Ascites due to alcoholic cirrhosis K70.31 End-stage liver disease K72.90 ETOH abuse F10.10
--- NOTE | 2020-05-29 00:10 | PC.NURSE ---
REPORT GIVEN TO KAREY .
[2020-05-29 05:08] VITALS: BP 134/83; BP 136/78; PULSE 102; PULSE 74; RESP 18; RESP 20; TEMP 36.6; O2SAT 98; O2SAT 99
[2020-05-29] MEDS: heparin 5,000 unit/mL INJ 1 mL 5000 UNIT SUBCUT ×2 (05:25→17:23)
[2020-05-29] MEDS: FUROsemide 10 mg/mL SDV 4mL 40 MG IVP (05:26)
[2020-05-29 06:29] LABS: Add Urine Microscopic? NO; Urine Color Yellow (Yellow)
[2020-05-29 06:30] LABS: Bilirubin Urine Neg (Negative); Blood Urine Neg (Negative); Glucose Urine UA Norm (Normal); Ketones Urine Negative (Negative); Leukocyte Esterase Urine Negative (Negative); Nitrate Urine Negative (Negative); Protein Urine Neg (Negative); Urine Appearance Clear (CLEAR); Urobilinogen Urine Norm (Negative); pH Urine 6.5 (5-7)
[2020-05-29 07:54] VITALS: BP 122/72; PULSE 96; RESP 18; TEMP 36.9; O2SAT 99
[2020-05-29] MEDS: multivitamin therapeutic Tablet 1 TAB PO (10:10)
[2020-05-29] MEDS: pantoprazole DR 40 mg Tablet PO (10:10)
[2020-05-29] MEDS: folic acid 1 mg Tablet PO (10:10)
[2020-05-29] MEDS: thiamine 100 mg Tablet PO (10:10)
[2020-05-29 11:06] LABS: Basophils # 0.1 10^3/uL (0.0-0.1); Basophils % 0.9 %; Eosinophils # 0.2 10^3/uL (0.0-0.8); Eosinophils % 2.5 %; Hematocrit 37.3 % (42.0-52.0); Hemoglobin 12.9 g/dL (11.7-16.6); Lymphocytes # 1.1 10^3/uL (0.8-4.8); Lymphocytes % 13.3 %; Mean Corpuscular HGB Conc 34.6 g/dL (30.0-36.0); Mean Corpuscular Hemoglobin 36.4 pg (28.0-34.0); Mean Corpuscular Volume 105.4 fL (80-94); Mean Platelet Volume 10.2 fL (7.4-10.4); Monocytes # 1.1 10^3/uL (0.2-0.9); Monocytes % 13.4 %; Neutrophils # 5.58 10^3/uL (1.8-7.7); Neutrophils % 69.4 %; Nucleated Red Blood Cells % 0 %; Platelet Count 117 10^3/cmm (130-400); Red Blood Count 3.54 10^6/uL (4.1-5.3); Red Cell Distribution Width 14.2 % (12.1-15.1)
--- NOTE | 2020-05-29 11:17 | PC.NURSE ---
notified Dr Watson that patient is requesting pain medication and a nicotine patch because he chews.
[2020-05-29 11:24] LABS: Alanine Aminotransferase 35 U/L (0-41); Albumin Level 2.8 g/dL (3.5-5.2); Alkaline Phosphatase 81 IU/L (40-130); Anion Gap 13.3 (5-19); Aspartate Amino Transferase 49 U/L (0-40); Blood Urea Nitrogen 23 mg/dL (6-20); Calcium 8.4 mg/dL (8.5-10.5); Carbon Dioxide 25 mmol/L (22-29); Chloride 95 mmol/L (98-107); Globulin 3.1 g/dL (1.3-4.6); Glomerular Filtration Rate 52.4 mL/min (90-130); Glucose 110 mg/dL (65-115); INR 1.18 (0.8-1.2); Osmolality Calculated 265 mOsm/kg (285-295); Potassium 4.3 mmol/L (3.5-5.1); Sodium 129 mmol/L (136-145); Total Protein 5.9 g/dL (6.6-8.7)
[2020-05-29 11:44] VITALS: BP 128/70; PULSE 92; RESP 20; TEMP 36.9; O2SAT 98
--- NOTE | 2020-05-29 12:06 | PC.RESP ---
Smoking Cessation information and a schedule of classes to patient.
[2020-05-29] MEDS: nicotine 14 mg Patch 1 PATCH TRANSDERMA (12:41)
[2020-05-29] MEDS: TRAMadol 50 mg Tablet PO (12:41)
[2020-05-29] MEDS: dilTIAZem 60 mg Tablet PO ×2 (12:41→17:23)
--- NOTE | 2020-05-29 13:21 | PC.CHAP ---
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 clinical therapist visit [] Patient/Family/Request visit [] Outpatient visit [] Follow-up visit [] Physician referral [] Code/Alert [x] Routine visit [] Staff referral [] Actively dying [] Patient sleeping [] Family support [] [] Out of room [] Palliative care [] [] Receiving care in room [] Pre-surgical visit [] Trauma [] Long length of stay [] ICU visit [] Other: Relational/Emotional Strength [x] Patient feels connected with others/family/visitors/staff [] Distress [] Loneliness/isolation [] Abandonment Spirituality of Patient [] Person of Jana [] Attends Judaism of their Jana [x] Believes in Prayer [] Reads Bible or Rastafarian materials [] There are Spiritual issues to be addressed Bobbin Cleaner Interventions [x] Prayer [x] Active listening [x] Non-anxious presence [x] Spiritual/emotional support [] Crisis/trauma care [] Spiritual counseling [] Bereavement support [] Provided bereavement packet [] Provided Bible/devotional materials [] Provided toy/stuffed animal, coloring book to patient or family member [] Provided Communion [] Anointing/[place] [] Salvation [] Completed spiritual assessment [] Other: Impact on Illness or Injury [] Angry [] Fearful [] Anxious [] Often cries [] Exhaustion [] Unable to work [] Unable to attend yazidi [] Unable to walk/stand [] Unable to read [] Unable to drive [] Unable to eat/drink [] Unable to sleep [x] Unable to be with family [] Patient intubated [] Other: Summary Patient explained the events that lead to him being hospitalized but stated that he doesn't have any memory of those events happening to him. He stated that he felt good and was waiting to hear from medical staff as to what may have caused the incident. Bobbin Cleaner visited with patient and then prayed with him. Patient was visited by Bobbin Cleaner Yobani De La Rosa. Time spent with patient 8 minutes
[2020-05-29 15:46] VITALS: BP 124/73; PULSE 96; RESP 18; TEMP 36.6; O2SAT 97
--- NOTE | 2020-05-29 16:36 | P.CONIM_ITS ---
Providers/Reason For Consult Consulting Physican/Specialty*: Dr. Watson Reason for Consult*: Leaking around peritoneal catheter for ascites Attending Physician: Marlene Watson MD Primary Care Provider: Yosvany Segovia MD History of Present Illness History of Present Illness Yosvany Soto is a 55 year old male who had undergone peritoneal catheter for ascites secondary to alcoholic liver disease. Patient was admitted to the hospital with altered mental status. I was consulted for leakage around the peritoneal catheter. Patient denies any significant pain and states that the catheter has been functioning well Review of Systems General: Reports: 10 or more systems reviewed and unremarkable except in HPI and below Meds/Allergies Home Medications and Allergies Home Medications Medication Instructions Recorded Confirmed Last Taken Type ferrous sulfate 325 mg (65 mg 325 mg PO DAILY 01/04/20 05/29/20 05/22/20 History iron) tablet folic acid 400 mcg tablet 0.4 mg PO DAILY 01/04/20 05/29/20 05/23/20 History furosemide 40 mg tablet 60 mg PO BID 01/04/20 05/29/20 05/23/20 History meloxicam 7.5 mg tablet 7.5 mg PO DAILY 01/04/20 05/29/20 05/23/20 History pantoprazole 40 mg tablet,delayed 40 mg PO DAILY 01/04/20 05/29/20 05/23/20 History release pentoxifylline 400 mg 400 mg PO TID 01/04/20 05/29/20 05/23/20 History tablet,extended release potassium chloride 20 mEq 20 meq PO DAILY 01/04/20 05/29/20 05/23/20 History tablet,extended release(part/cryst) sildenafil 100 mg tablet 100 mg PO DAILY PRN 01/04/20 05/29/20 Unknown History thiamine HCl (vitamin B1) 500 mg 500 mg PO DAILY 01/04/20 05/29/20 05/23/20 History tablet vitamin B complex 1 tab PO DAILY 01/04/20 05/29/20 05/23/20 History vitamin E (dl, acetate) 400 unit 400 unit PO BID 01/04/20 05/29/20 05/23/20 History capsule tadalafil 20 mg tablet 20 mg PO DAILY PRN #20 tab 01/10/20 05/29/20 Unknown Rx spironolactone 100 mg tablet 100 mg PO DAILY #90 tab 02/16/20 05/29/20 05/23/20 Rx tramadol 50 mg PO BID PRN 05/05/20 05/29/20 05/23/20 History diltiazem HCl 120 mg PO Q6H 05/12/20 05/29/20 05/23/20 06:00 History levothyroxine 25 mcg PO DAILY 05/12/20 05/29/20 05/22/20 History Allergies Allergy/AdvReac Type Severity Reaction Status Date / Time Penicillins Allergy ALGY-Difficulty Verified 05/24/20 07:25 Breathing Sulfa (Sulfonamide Allergy Unknown Verified 05/24/20 07:25 Antibiotics) Current Medications Current Medications Generic Name Dose Route Start Last Admin Trade Name Freq PRN Reason Stop Dose Admin Diltiazem HCl 60 mg 05/29/20 13:00 05/29/20 12:41 Cardizem PO 60 mg Q6H DHAVAL Administration Folic Acid 1 mg 05/29/20 09:30 05/29/20 10:10 Folic Acid PO 1 mg DAILY DHAVAL Administration Heparin Sodium (Beef Lung) 5,000 unit 05/29/20 05:08 05/29/20 05:25 Heparin SUBCUT 5,000 unit Q12H DHAVAL Administration Multivitamins Therapeutic 1 tab 05/29/20 09:30 05/29/20 10:10 Multivitamin Tab PO 1 tab DAILY DHAVAL Administration Nicotine 1 patch 05/29/20 12:15 05/29/20 12:41 Nicoderm 14 Mg Patch TRANSDERMA 1 patch DAILY DHAVAL Administration Non-Formulary Medication 400 mg 05/29/20 15:00 05/29/20 15:48 Pentoxifylline PO Not Given TID DHAVAL Pantoprazole Sodium 40 mg 05/29/20 09:00 05/29/20 10:10 Protonix PO 40 mg DAILY DHAVAL Administration Thiamine Mononitrate 100 mg 05/29/20 09:30 05/29/20 10:10 Vitamin B-1 PO 100 mg DAILY DHAVAL Administration Tramadol HCl 50 mg 05/29/20 12:12 05/29/20 12:41 Ultram PO 50 mg BID PRN Administration Pain PFSH Acute PFSH: Medical History Charcot's arthropathy End-stage liver disease Erectile dysfunction History of abdominal paracentesis Hx of esophageal varices Neuropathy Peyronie disease PVD (peripheral vascular disease) Surgical History H/O colonoscopy 10-12 yrs H/O esophagogastroduodenoscopy History of tonsillectomy Hx of umbilical hernia repair Hx of vasectomy Status post surgery (05/24/20) peritoneal catheter for ascites Family History Grandfather CAD (coronary artery disease) Grandmother CAD (coronary artery disease) Cancer Father Cancer Denies family history of Anesthesia complication Bleeding disorder Social History Smoking and tobacco status: light tobacco smoker Alcohol intake: current Alcohol intake frequency: 0-2 Drinks per Day Alcohol type: beer Adopted: No Caregiver/support person: No Lives independently: No Marital status: Current occupational status: employed History of recent travel: No Current gender identity: Male Vitals/I&O/Wt Last Vital Signs Temp 97.9 F 05/29/20 15:46 Pulse 96 05/29/20 15:46 Resp 18 05/29/20 15:46 BP 124/73 05/29/20 15:46 Pulse Ox 97 05/29/20 15:46 05/29/20 05/29/20 05/29/20 06:59 14:59 22:59 Intake Total 240 / 240 Output Total 1175 / 1175 Balance -935 / -935 Weight last 48 hrs Weight 282 lb 3.2 oz Weight 300 lb Physical Exam Narrative: EXAM NARRATIVE: HEENT: Normocephalic Eye: Sclera /conjunctiva normal Abdomen: Soft to palpation peritoneal catheter right lower quadrant, no erythema, mild amount of ascites fluid draining around the catheter, abdomen distended Neurological: Oriented to place person and time Skin: Intact, no lesions appreciated on gross exam A&P Assessment and plan (1) Status post surgery: 55-year-old gentleman with tunneled peritoneal catheter for drainage of ascites secondary to alcoholic liver disease, has been complaining of leakage around the catheter. No evidence of dislodgment of the catheter or concerns about infection. I have therefore recommended that the abdomen be decompressed by attaching the catheter to a drainage bag, to enable the subcutaneous tissue to heal around the catheter. No further surgical intervention required Status: Acute Coding Level of Care Code Acute Gaming Surveillance Observer for Chg Fwd Diagnoses Status post surgery Z98.890
[2020-05-29] MEDS: FUROsemide 40 mg Tablet PO (17:23)
[2020-05-29 20:00] VITALS: BP 120/73; PULSE 112; RESP 18; TEMP 37.1; O2SAT 98
--- NOTE | 2020-05-29 21:29 | PM.PN ---
Subjective Subjective: Interval history: patient is alert and awake when examined at 1pm this afternoon. States he does not recall the events leading up to admission. His mother had noted him to be more somnolent and was concerned therefore brought him here. He is currently orriented x 3 with no acute distress Medications: Reviewed: Yes Vitals/I&O/Wt Last Vital Signs Temp 98.8 F 05/29/20 20:00 Pulse 112 H 05/29/20 20:00 Resp 18 05/29/20 20:00 BP 120/73 05/29/20 20:00 Pulse Ox 98 05/29/20 20:00 05/29/20 05/29/20 05/29/20 06:59 14:59 22:59 Intake Total 240 / 240 Output Total 1175 / 1175 700 / 1875 Balance -935 / -935 -700 / -1635 Weight last 48 hrs Weight 128.004 kg Weight 136.078 kg Physical Exam Narrative: EXAM NARRATIVE: GEN: Awake, alert and oriented, no acute distress CVS: S1S2 N RS: CTA B/L Abd: Soft, nt/nd , bs+ MICROWAVE REMOTE SENSING SCIENTIST: no focal neuro deficits Data : 05/29/20 10:57 05/29/20 10:57 A&P Assessment and plan (1) Acute encephalopathy: Now resolved. Patient is alert and awake , oriented x 3, does not know why he is at the hospital. may have been related to hyponatremia Status: Acute (2) Acute renal failure: May be relate dto transient hypotension vs ATN Status: Acute Qualifiers: Acute renal failure type: with acute tubular necrosis Qualified Code(s): N17.0 - Acute kidney failure with tubular necrosis (3) Ataxia: May be related to underlying chronic liver failure. Continue thiamine supplementation. Pt/ot assessment Status: Acute (4) Ascites due to alcoholic cirrhosis: Status post recent peritoneal drain placement. He has continued to have oozing around the peritoneal drain site fairly continuously. I Status: Chronic (5) End-stage liver disease: Related to chronic alcohol use. He has chronically elevated liver enzymes, slightly low albumin, some mild thrombocytopenia, macrocytosis, ascites, as well as esophageal varices. Status: Chronic (6) ETOH abuse: History of chronic alcoholism though patient denies current alcohol use. Blood alcohol level was negative today. I am not sure exactly when he quit. Status: Chronic Additional A&P Information Surgery consult for peritoneal drain leakge which has been bothersome for the patient Serial neuro exams Received thiamine in the emergency room, will continue along with folate and multivitamin PT evaluation Strict I's and O's and daily weights Fluid restricted diet Plans discussed with patient as well as his mother Full code Attestations Medical Necessity Statement*: continued observation for mentation changes, surgical drain assessment Coding Level of Care Code Acute Preparation Plant Repairer for g Fwd Diagnoses Acute encephalopathy G93.40 Acute renal failure N17.0 Acute renal failure type: with acute tubular necrosis Ataxia R27.0 Ascites due to alcoholic cirrhosis K70.31 End-stage liver disease K72.90 ETOH abuse F10.10
[2020-05-30] VITALS (146 sets, daily range): BP systolic 81–149; BP diastolic 58–115; PULSE 93–138; RESP 9–19; TEMP 36.2–37.3; O2SAT 94–100
[2020-05-30 01:49] LABS: Glucose Point of Care 105 mg/dL (70-110)
[2020-05-30] MEDS: etomidate 20 ML 20 MG (02:10)
[2020-05-30] MEDS: rocuronium 10 mg/mL INJ 5mL 100 MG (02:10)
[2020-05-30 02:27] LABS: Basophils % 0.4 %; Eosinophils # 0.1 10^3/uL (0.0-0.8); Eosinophils % 1.2 %; Hematocrit 42.3 % (42.0-52.0); Lymphocytes # 0.8 10^3/uL (0.8-4.8); Lymphocytes % 7.5 %; Mean Corpuscular HGB Conc 35.5 g/dL (30.0-36.0); Mean Corpuscular Hemoglobin 36.1 pg (28.0-34.0); Mean Corpuscular Volume 101.9 fL (80-94); Mean Platelet Volume 10.4 fL (7.4-10.4); Monocytes # 1.1 10^3/uL (0.2-0.9); Monocytes % 11.3 %; Neutrophils # 7.87 10^3/uL (1.8-7.7); Neutrophils % 79.1 %; Nucleated Red Blood Cells % 0 %; Platelet Count 148 10^3/cmm (130-400); Red Blood Count 4.15 10^6/uL (4.1-5.3); Red Cell Distribution Width 14.4 % (12.1-15.1)
[2020-05-30] MEDS: propofol 1,000 MG/100 ML INJ 23 MG IV ×2 (02:30→06:36)
--- NOTE | 2020-05-30 02:30 | XR_ITS ---
WS: [id number] EXAM: AP CHEST: PORTABLE SUPINE DATE OF EXAM: 05/30/2020, 0226 hours COMPARISON: Chest x-ray from 07/04/2018. HISTORY: Patient is 55 years old with alcohol involvement. Respiratory failure. Status post intubation and ent srini tube placement.. FINDINGS: The cardiac silhouette is stable. Considered upper limits of normal in size. The mediastinal contou rs show an endotracheal tube ending about 1 cm above the level of the scottie. Enteric tube crosses t he thoracic esophagus overlies the area of the stomach. The pulmonary vascularity is normal. Lung volume is poor. Lungs are clear of consolidation. Right costophrenic angle has been excluded from the image. There is no effusion or pneumothorax. No acute bony abnormality is seen. XR/XR chest 1V portable [id number] IMPRESSION: Endotracheal tube ending slightly above the scottie. Withdrawing slightly recomm ended. Enteric tube in satisfactory position. No definite pulmonary edema or pulmonary infiltrate
--- NOTE | 2020-05-30 02:39 | PC.NURSE ---
AT THE BEGINNIING OF SHIFT THIS NURSE CHECKED NEURO'S ON PT. NEURO'S WERE GOOD, HE TOLD ME HIS NAME, ANSWERED QUESTIONS, BUT WAS A LITTLE LETHARGIC. THIS NURSE ROUNDED THROUGHOUT THE NIGHT AND PT APPEARED TO BE SLEEPING, EYES CLOSED AND SNORING. AT AROUND 0100 THE HYDRO PNEUMATIC TESTER WAS FINISHING UP ON VITALS AND MENTIONED THE PT WAS NOT WAKING UP DURING VITALS, BUT WAS SNORING AND VITALS WERE GOOD. THIS NURSE WENT TO ASSESS THE PT, HIS EYES WERE OPEN BUT ROLLING BACK AND FORTH AND WERE NOT RESPONSIVE TO LIGHT, HE WAS SNORING, BUT WHEN AN ATTEMPT WAS MADE TO GET HIM TO ANSWER QUESTIONS HE WAS UNRESPONSIVE AND WOULD NOT ANSWER. NURSE THEN DID A STERNAL RUB AND LOUDLY SAID HIS NAME. STILL NO RESPONSE. VITALS WERE OBTAINED AND WERE FOLLOWS: BP-149/87, HR-114, RR-16, O2- 95% ROOM AIR. THE CHARGE NURSE, PLASTIC SHEETING CUTTER, AND DOCTOR DENIA WAS NOTIFIED. THE DOCTOR ORDERED AN ABG AND GLUCOSE LEVEL AND THEN BOTH CAME TO THE FLOOR TO ASSESS THE PATIENT. AT THIS TIME ANOTHER IV WAS OBTAINED, THE DOCTOR WAS SHOWN THE RESULTS OF THE ABG, AND DECISION TO TRANSFER PT TO ICU WAS MADE. PT WAS IMMEDIATELY TRANSFERRED TO ICU, AND BEDSIDE REPORT WAS GIVEN.
[2020-05-30 02:46] LABS: Alanine Aminotransferase 43 U/L (0-41); Albumin Level 3.4 g/dL (3.5-5.2); Alkaline Phosphatase 122 IU/L (40-130); Aspartate Amino Transferase 59 U/L (0-40); Blood Urea Nitrogen 22 mg/dL (6-20); Calcium 8.8 mg/dL (8.5-10.5); Carbon Dioxide 22 mmol/L (22-29); Chloride 93 mmol/L (98-107); Globulin 3.7 g/dL (1.3-4.6); Glomerular Filtration Rate 52.4 mL/min (90-130); Glucose 130 mg/dL (65-115); Osmolality Calculated 264 mOsm/kg (285-295); Partial Thromboplastin Time 32.1 SECONDS (23.9-36.7); Sodium 128 mmol/L (136-145); Total Bilirubin 2.1 mg/dL (0.15-1.2); Total Protein 7.1 g/dL (6.6-8.7)
--- NOTE | 2020-05-30 02:55 | PM.ACPR ---
Procedure/Consent Consent: Consent for Procedure: Consent obtained from other (indicate) Additional Consent Information: Mother Procedure Narrative: Patient required intubation for GCS of 7 Hepatic encephalopathy Consent taken from his mother Decision was made to intubate the patient for GCS of 7 for airway protection, he was transferred to ICU and was intubated [place] scope assisted intubation Acute Procedures Intubation: Time out performed: Yes Sedative: etomidate Mg given: 30 Paralytic: rocuronium Mg given: 100 Laryngoscope: Eric ET tube size: 8 Tube secured depth (cm): 23 Tube secured location: teeth Tube placement confirmation: visualized tube passing through cords, equal breath sounds bilaterally, no breath sounds over epigastrium and color change noted Patient tolerated procedure: no complications Intubation complications: none Additional comments: ET confirmed via chest xray OG advanced 3cm
[2020-05-30 03:26] LABS: ABG PCO2 33.4 mmHg (35-45); ABG PH Result 7.46 (7.35-7.45); Arterial Blood Gas Hematocrit 44.7 % (42-52); Base Excess ABG 0.8 mmol/L (-2.0-2.0); Blood Gas Allen Test Pos; Blood Gas Sample Site Radial, right; Blood Gas Sample Type Arterial; Blood Gas Tidal Volume 0.55; Oxygen Device VENT
[2020-05-30 03:29] LABS: ABG PCO2 30.6 mmHg (35-45); Arterial Blood Gas Hematocrit 46.6 % (42-52); Base Excess ABG 1.7 mmol/L (-2.0-2.0); Blood Gas Allen Test POS; Blood Gas Sample Type ARTERIAL; Oxygen Device ROOM AIR; PO2 ABG 77.1 mmHg (80.0-100.0)
[2020-05-30 04:46] LABS: Alanine Aminotransferase 40 U/L (0-41); Albumin Level 3.1 g/dL (3.5-5.2); Alkaline Phosphatase 108 IU/L (40-130); Anion Gap 16.7 (5-19); Aspartate Amino Transferase 56 U/L (0-40); Blood Urea Nitrogen 22 mg/dL (6-20); Calcium 8.5 mg/dL (8.5-10.5); Carbon Dioxide 23 mmol/L (22-29); Chloride 94 mmol/L (98-107); Globulin 3.4 g/dL (1.3-4.6); Glomerular Filtration Rate 48.4 mL/min (90-130); Glucose 128 mg/dL (65-115); Magnesium 1.8 mg/dL (1.7-2.3); Osmolality Calculated 266 mOsm/kg (285-295); Phosphorus 4.4 mg/dL (2.5-4.5); Potassium 4.7 mmol/L (3.5-5.1); Sodium 129 mmol/L (136-145); Total Bilirubin 2.1 mg/dL (0.15-1.2); Total Protein 6.5 g/dL (6.6-8.7)
[2020-05-30] MEDS: cefTRIAXone 1,000 MG in sodium chloride 0.9% (plus) 50 ML 100 MG IV (05:09)
[2020-05-30] MEDS: bumetanide 0.25 mg/mL SDV 10 mL 1 MG IV (05:10)
--- NOTE | 2020-05-30 05:42 | PC.NURSE ---
0210 Pt transfered from floor to room ICU 8. Pt obtunded no response to pain. Loud snoring breathing. Dr. Cardona at bedside plans for intubation. 021 Administered Etomidate and Dev IVP. RT at bedside. ETT 8.0 placed. Diprivan started. Called for Xray. Restraints ordered. Placed Weir catheter. VSS see full assessment
--- NOTE | 2020-05-30 08:14 | ECG_ITS ---
[facility] Test Date: 2020-05-30 Pat Name: Yosvany Soto Department: Room: ICU08 Gender: Male Car Lubricator: : 1965 Requested By: Marlene Watson Order Number: [id number] Cade MD: Binta Pitt M.D. Measurements Intervals [place] Rate: 115 P: [place]: -1 QRS: 88 QRSD: 93 T: 64 QT: 333 QTc: 462 Interpretive Statements ATRIAL FIBRILLATION WITH RAPID VENTRICULAR RESPONSE LOW QRS VOLTAGE IN EXTREMITY LEADS [QRS DEFLECTION < 0.5 mV IN LIMB LEADS] ANTEROSEPTAL MYOCARDIAL INFARCTION [40+ ms Q WAVE IN V1-V4], PROBABLY OLD Compared to ECG 05/24/2020 09:51:47 No significant changes Electronically Signed On 05-30-2020 14:57:50 CDT by Binta Pitt M.D. [id number]
--- NOTE | 2020-05-30 08:33 | CT_ITS ---
WS: [id number] CT HEAD NONCONTRAST HISTORY: change in mental status TECHNIQUE: Contiguous axial imaging performed through the brain in 2.5 mm imaging. Bone and soft tiss ue windows. Sagittal and coronal reformats reviewed. All CT scans at [facility] use at ast one of these dose optimization techniques: automated exposure control; mA and/or kV adjustment pe r patient size (includes targeted exams where dose is matched to clinical indication); or iterative r econstruction. DLP: 888.79 mGy.cm COMPARISON: 05/28/2020 No acute intracranial hemorrhage, midline shift or mass effect. Mild atrophy and mild chronic microvascular ischemic disease. No sulcal effacement. Ventricles: Normal size with no hydrocephalus. Paranasal sinuses: Findings cavities are otherwise clear. Chronic LEFT orbital floor fracture with he rniation of orbital fat. Mastoid air cells: Well pneumatized. Calvarium and scalp: Skull is intact with no soft tissue edema or swelling. CT/CT head wo con* [id number] IMPRESSION: Mild atrophy and chronic microvascular ischemic disease. No acute interval vargas app2you.
--- NOTE | 2020-05-30 08:36 | CT_ITS ---
WS: [id number] EXAM: CT OF THE ABDOMEN AND PELVIS WITHOUT CONTRAST DATE OF EXAMINATION: 05/30/2020, 0906 hours COMPARISON: Prior CT from 11/23/2018 HISTORY: 55 years old with elevated creatinine. Abdominal drain in place. Patient is intubated and unresponsiv e. Evaluate for obstructive uropathy secondary to the elevated creatinine level. TECHNIQUE: Transaxial computed tomography images obtained through the abdomen and pelvis without utilization of contrast viewed in multiple windows with reconstructions. DLP: 2285.[address] scans at [facility] use at least one of these dose optimization techniques: automat ed exposure control; mA and/or kV adjustment per patient size (includes targeted exams where dose is matched to clinical indication); or iterative reconstruction. FINDINGS: There are findings of slight bilateral lower lobe and lingular infiltrates. Vast majority is most lik kaylynn atelectasis. Small left pleural effusion. Trace right pleural fluid. Heart size is normal. Calcif ied lymph nodes in the right hilar and subcarinal region. Enteric tube crosses the distal thoracic es ophagus and ends in the C-loop of the duodenum. The aorta is normal in caliber. Without IV contrast e valuation of the lumen is considered inadequate. Liver is small in size with extensive irregular sero dali surface consistent with extensive cirrhosis. No mass within the liver is seen within the limits o f no IV contrast. Gallbladder is normally distended. No pericholecystic inflammatory changes are seen . No biliary dilatation is noted. Spleen is enlarged 15 cm in length. The pancreas is normal appearance. Slight adrenal hyperplasia bilaterally. Both kidneys are normal in size and attenuation. Minimal perinephric stranding most likely related to chronic change. No renal or ureteral calculi. No obstructive uropathy. There are extensive paraesophageal varices in the lower chest. Additional varices in the area of the falciform ligament, portal kasia hepatis region, splenorenal varices as well as varices in the mesent tori. Stomach is decompressed. Small bowel is normal in caliber. Colon is fairly normal in caliber. Th ere are scattered diverticulosis changes most concentrated in the sigmoid colon region. No bowel obst ruction seen. The amount of ascites is slightly increased as compared to the prior exam. There has be en interval placement of a Tenckhoff type catheter in the right false pelvis region. Presumably for p eritoneal dialysis. Please correlate. The umbilical hernia has been reduced. No groin hernia. No intraperitoneal or retroperitoneal adenopathy or masses seen. Bladder is decompressed by a Weir. Otherwise unremarkable. Small amount of air in the bladder lumen is presumably iatrogenic. Prostate is essentially absent. Scattered degenerative changes are seen in the spine. Bilateral L4 pars interarticularis defects are demonstrated with a grade 1 anterolisthesis of L4 on 5. No central canal stenosis at this level. Ther e are however findings of bilateral neural foraminal stenosis at this level. CT/CT kidney stone [id number] IMPRESSION: Findings of fairly extensive liver cirrhosis with portal hypertension and varic es. Amount of fluid within the abdomen has increased in the interim. There is a drainage catheter in the right false pelvis region presumably a Tenckhoff cath eter for peritoneal dialysis. Please correlate. No findings of renal or uretera l calculus or obstructive uropathy. Bibasilar infiltrates as well as small effusions. Other nonemergent findings as described in the body of the report.
--- NOTE | 2020-05-30 08:36 | PM.PN ---
Subjective Subjective: Interval history: Patient became unresponsive last night with a GCS of 7 and was intubated and transferred to the ICU. His abdomen is slightly distended, minimal drainage around the peritoneal catheter Vitals/I&O/Wt Last Vital Signs Temp 98.6 F 05/30/20 03:58 Pulse 123 H 05/30/20 03:55 Resp 14 05/30/20 08:13 BP 132/92 05/30/20 03:55 Pulse Ox 100 05/30/20 03:55 05/29/20 05/30/20 05/30/20 22:59 06:59 14:59 Intake Total 60 / 394.3 94.3 / 394.3 Output Total 700 / 2175 300 / 2175 Balance -640 / -1780.7 -205.7 / -1780.7 Weight last 48 hrs Weight 279 lb Weight 282 lb 3.2 oz Weight 300 lb Physical Exam Narrative: EXAM NARRATIVE: Abdomen: Soft, distended, ascites present Urinary Catheter Management^: Weir: Cath Placed During This Visit: yes Urinary Catheter Date of Insertion: 05/30/20 Urinary Catheter Time of Insertion: 02:30 Data : 05/30/20 02:10 05/30/20 03:20 A&P Assessment and plan (1) Ascites due to alcoholic cirrhosis: 55-year-old gentleman with ascites secondary to alcoholic liver disease on home I will place the tunneled peritoneal catheter for drainage of ascites couple of weeks ago. Patient has been having drainage around the catheter suggesting that the catheter has not had a time to heal around it. We will therefore leave the catheter to drainage to limit drainage around the catheter Status: Chronic Attestations Medical Necessity Statement*: Acute encephalopathy requiring continued ICU stay Coding Level of Care Code Acute Marine Driller for Tay Rust Diagnoses Ascites due to alcoholic cirrhosis K70.31
[2020-05-30 09:28] LABS: Troponin(5th) Baseline 22 ng/L (0-15)
[2020-05-30] MEDS: folic acid 1 mg Tablet PO (09:43)
[2020-05-30] MEDS: multivitamin therapeutic Tablet 1 TAB PO (09:43)
[2020-05-30] MEDS: thiamine 100 mg Tablet PO (09:43)
[2020-05-30] MEDS: levothyroxine 25 mcg Tablet PO (09:43)
[2020-05-30] MEDS: pantoprazole 40 mg SDV IVP (09:43)
--- NOTE | 2020-05-30 10:38 | ECG_ITS ---
[facility] Test Date: 2020-05-30 Pat Name: Yosvany Soto Department: Room: ICU08 Gender: Male It Support Technician: : 1965 Requested By: Marlene Watson Order Number: [id number] Cade MD: Binta Pitt M.D. Measurements Intervals [place] Rate: 110 P: [place]: -1 QRS: 96 QRSD: 98 T: 35 QT: 362 QTc: 491 Interpretive Statements ATRIAL FIBRILLATION WITH RAPID VENTRICULAR RESPONSE BORDERLINE RIGHT AXIS DEVIATION [QRS AXIS > 90] LOW QRS VOLTAGE [QRS DEFLECTION < 0.5/1.0 mV IN LIMB/CHEST LEADS] ANTEROSEPTAL MYOCARDIAL INFARCTION [40+ ms Q WAVE IN V1-V4], PROBABLY OLD Compared to ECG 05/30/2020 08:28:33 No significant changes Electronically Signed On 05-30-2020 14:56:56 CDT by Binta Pitt M.D. [id number]
[2020-05-30] MEDS: dexmedetomidine 400 MCG in sodium chloride 0.9% (100 ml) 100 ML IV (10:47)
[2020-05-30] MEDS: FUROsemide 10 mg/mL SDV 4mL 40 MG IVP ×2 (12:08→20:44)
[2020-05-30 12:09] LABS: Troponin 5 2HR 20.23 ng/L (0-15)
[2020-05-30 12:49] LABS: Troponin 5 2HR Delta -1.77 ABS# (0-10)
--- NOTE | 2020-05-30 14:38 | ECG_ITS ---
[facility] Test Date: 2020-05-30 Pat Name: Yosvany Soto Department: Room: ICU08 Gender: Male Clinical Editor: : 1965 Requested By: Marlene Watson Order Number: [id number] Cade MD: Binta Pitt M.D. Measurements Intervals [place] Rate: 132 P: [place]: -1 QRS: 93 QRSD: 94 T: 30 QT: 314 QTc: 466 Interpretive Statements ATRIAL FIBRILLATION WITH RAPID VENTRICULAR RESPONSE BORDERLINE RIGHT AXIS DEVIATION [QRS AXIS > 90] LOW QRS VOLTAGE [QRS DEFLECTION < 0.5/1.0 mV IN LIMB/CHEST LEADS] ANTEROSEPTAL MYOCARDIAL INFARCTION [40+ ms Q WAVE IN V1-V4], PROBABLY OLD Compared to ECG 05/30/2020 11:40:04 No significant changes Electronically Signed On 05-30-2020 14:56:18 CDT by Binta Pitt M.D. [id number]
[2020-05-30 15:39] LABS: Troponin 5 6HR 20.65 ng/L (0-15)
[2020-05-30 16:16] LABS: Troponin 5 6HR Delta -1.35 ng/L (0-12)
[2020-05-30 16:38] LABS: Glucose Point of Care 115 mg/dL (70-110)
[2020-05-30 17:08] LABS: Ammonia 76 umol/L (16-60)
--- NOTE | 2020-05-30 17:59 | P.PN_ITS ---
Subjective Subjective: Interval history: Overnight events noted, patient overnight noted to be obtunded to GCS7 following which he was intubated for airway protection. No other details available at this time. Also with new onset A fib with RVR Medications: Reviewed: Yes Vitals/I&O/Wt Last Vital Signs Temp 97.2 F L 05/30/20 11:20 Pulse 100 05/30/20 16:50 Resp 11 L 05/30/20 17:03 BP 81/61 05/30/20 16:50 Pulse Ox 98 05/30/20 16:50 05/30/20 05/30/20 05/30/20 06:59 14:59 22:59 Intake Total 94.3 / 394.3 750 / 750 Output Total 300 / 2175 4550 / 4550 200 / 4750 Balance -205.7 / -1780.7 -3800 / -3800 -200 / -4000 Weight last 48 hrs Weight 126.552 kg Weight 128.004 kg Weight 136.078 kg Physical Exam Narrative: EXAM NARRATIVE: GEN: intubated, sedated CVS: S1S2 N RS: CTA B/L Abd: Soft,distended, bS+ PLATE GLASS GRINDER: unable to assess Urinary Catheter Management^: Weir: Cath Placed During This Visit: yes Reason for Continuing Indwelling Catheter: Accurate Measurement of Urinary Output in Critically Ill Patients Urinary Catheter Date of Insertion: 05/30/20 Urinary Catheter Time of Insertion: 02:30 Data : 05/30/20 02:10 05/30/20 03:20 A&P Assessment and plan (1) Acute encephalopathy: yesetrday evening patient was AAOx3, then overnight suddenly found with GCS [address] head stat, stat ammonia level, EEG for possibility of withdrawal seziures d/c propofol, start precedex instaed and monitor for improvement in mentation Na correction 126-->129 over 2 days, less likely to be pontine myelinolysis Status: Acute (2) Acute renal failure: May be relate dto transient hypotension vs ATN cr rising today, check CT renal to evalute for obstruction Status: Acute Qualifiers: Acute renal failure type: with acute tubular necrosis Qualified Code(s): N17.0 - Acute kidney failure with tubular necrosis (3) Ataxia: May be related to underlying chronic liver failure. Continue thiamine supplementation. Pt/ot assessment Status: Acute (4) Ascites due to alcoholic cirrhosis: Status post recent peritoneal drain placement. He has continued to have oozing around the peritoneal drain site fairly continuously. Appreciate surgical evalutaion Status: Chronic (5) End-stage liver disease: Related to chronic alcohol use. He has chronically elevated liver enzymes, slightly low albumin, some mild thrombocytopenia, macrocytosis, ascites, as well as esophageal varices. Status: Chronic (6) ETOH abuse: History of chronic alcoholism, per son today still actively drinking 6-8 beers per day Status: Chronic (7) Atrial fibrillation with RVR: start cardizem infusion check EKG and troponin series 2d echocardiogram Status: Acute Additional A&P Information Serial neuro exams Received thiamine in the emergency room, will continue along with folate and multivitamin PT evaluation Strict I's and O's and daily weights Full code Attestations Medical Necessity Statement*: requiring ventilator for respiratory support, acute change in mental status Coding Level of Care Code Acute Boom Worker for [facility] Fwd Diagnoses Acute encephalopathy G93.40 Acute renal failure N17.0 Acute renal failure type: with acute tubular necrosis Ataxia R27.0 Ascites due to alcoholic cirrhosis K70.31 End-stage liver disease K72.90 ETOH abuse F10.10 Atrial fibrillation with RVR I48.91
[2020-05-30] MEDS: lactulose oral liq 20 gm/30 mL UDC PO (18:38)
--- NOTE | 2020-05-30 20:22 | PC.NURSE ---
CIWA difficult to assess due to intubation, GCS 6, did not observe tremor, perspiration or anxiety
--- NOTE | 2020-05-30 22:28 | PC.NURSE ---
Mental status eyes opened spontaneously to verbal command. Pt start thrashing head side to side , disconnecting tubing from ET tube several times. thrashing arms and legs. Pt is still not follow commands at this time. Precedex at 0.3mcg/kg/min. Dr. Cardona was called and recommended consult with RT and if patient is able to stay alert then can extubate. After speaking with Dr. Cardona entered patient room and he is again lethargic and difficult to arouse. Precedex titrated to 0.2mcg/kg/hr. Will continue to monitor mental status.
[2020-05-31] VITALS (15 sets, daily range): BP systolic 88–121; BP diastolic 39–76; PULSE 77–105; RESP 13–18; TEMP 36.6–37.2; O2SAT 93–100
[2020-05-31] MEDS: lactulose oral liq 20 gm/30 mL UDC PO ×5 (00:08→23:17)
[2020-05-31] MEDS: dexmedetomidine 400 MCG in sodium chloride 0.9% (100 ml) 100 ML 6.6 MCG IV (02:33)
--- NOTE | 2020-05-31 03:00 | PC.NURSE ---
Mental Status Pt awakened to verbal stimuli. Pt is anxious while awake on ventilator. Voiced with lips around ET tube I can't breathe .Explained to patient needs to be able to stay aroused and follow commands prior to extubation. Pt then squeezed hands when commanded to.
[2020-05-31] MEDS: cefTRIAXone 1,000 MG in sodium chloride 0.9% (plus) 50 ML 100 MG IV (03:28)
[2020-05-31 04:26] LABS: Basophils % 0.4 %; Eosinophils # 0.1 10^3/uL (0.0-0.8); Eosinophils % 1.2 %; Hematocrit 38.2 % (42.0-52.0); Hemoglobin 13.4 g/dL (11.7-16.6); Lymphocytes % 10.3 %; Mean Corpuscular HGB Conc 35.1 g/dL (30.0-36.0); Mean Corpuscular Volume 102.7 fL (80-94); Mean Platelet Volume 10.7 fL (7.4-10.4); Monocytes # 1.2 10^3/uL (0.2-0.9); Monocytes % 12.9 %; Neutrophils # 6.96 10^3/uL (1.8-7.7); Neutrophils % 74.8 %; Nucleated Red Blood Cells % 0 %; Platelet Count 122 10^3/cmm (130-400); Red Blood Count 3.72 10^6/uL (4.1-5.3); Red Cell Distribution Width 14.1 % (12.1-15.1); White Blood Count 9.3 10^3/uL (4.0-10.0)
[2020-05-31 04:50] LABS: Alanine Aminotransferase 31 U/L (0-41); Albumin Level 2.7 g/dL (3.5-5.2); Alkaline Phosphatase 81 IU/L (40-130); Anion Gap 19.3 (5-19); Aspartate Amino Transferase 38 U/L (0-40); Blood Urea Nitrogen 32 mg/dL (6-20); Calcium 8.9 mg/dL (8.5-10.5); Carbon Dioxide 22 mmol/L (22-29); Chloride 97 mmol/L (98-107); Globulin 3.3 g/dL (1.3-4.6); Glomerular Filtration Rate 36.9 mL/min (90-130); Glucose 115 mg/dL (65-115); Osmolality Calculated 276 mOsm/kg (285-295); Potassium 4.3 mmol/L (3.5-5.1); Sodium 134 mmol/L (136-145); Total Bilirubin 2.8 mg/dL (0.15-1.2)
--- NOTE | 2020-05-31 05:30 | PC.NURSE ---
Extubated Pt more alert kicking legs, eyes open and following commands. Pt increasingly agitated, communicating with lip movements around ET tube I can't breathe . Pt extubated by RT at 0530 to 2L NC. Pt tolerated well, lungs clear and diminished throughout. Pt awake and oriented to person and place. Some confusion is still present. Breathing is even and non-labored. Shallow with RR 16. O2 sat 94%.
--- NOTE | 2020-05-31 08:39 | USCV_ITS ---
Yosvany Soto Age: 55 Gender: M : 1965 Exam Date: 05/31/2020 06:40 Ordering Phys: Marlene Watson MD Technologist: Mandeep Arroyo [place]am Location[place] [facility] [place]: AFIB BP: 100 / 67 HR: 107 Rhythm: Sinus Technical Quality: Very technically difficult study MEASUREMENTS (Male / Female) Normal Values 2D ECHO LV Diastolic Diameter PLAX 4.1 cm 4.2 - 5.9 / 3.9 - 5.3 cm LV Systolic Diameter PLAX 2.2 cm IVS Diastolic Thickness 1.1 cm 0.6 - 1.0 / 0.6 - 0.9 cm IVS Systolic Thickness 1.5 cm LVPW Diastolic Thickness 1.1 cm 0.6 - 1.0 / 0.6 - 0.9 cm LVPW Systolic Thickness 1.5 cm LVOT Diameter 2.0 cm LV Ejection Fraction 2D Teich 79.0 % LV Ejection Fraction MOD 2C 63.8 % LV Ejection Fraction 2C AL 65.7 % LA Diameter 5.1 cm LA Width 4.2 cm LA Height 5.4 cm RA Width 4.2 cm RA Height 5.5 cm M-MODE LV Diastolic Diameter MM 5.4 cm 4.2 - 5.9 / 3.9 - 5.3 cm LV Systolic Diameter MM 3.8 cm LV Ejection Fraction MM Teich 54.8 % IVS Diastolic Thickness MM 1.4 cm 0.6 - 1.0 / 0.6 - 0.9 cm IVS Systolic Thickness MM 1.8 cm LVPW Diastolic Thickness MM 1.4 cm 0.6 - 1.0 / 0.6 - 0.9 cm LVPW Systolic Thickness MM 1.7 cm RV Diastolic Diameter MM 1.9 cm Aortic Annulus Diameter 3.5 cm LA Ao Ratio MM 1.5 MV E Point Septal Separation 2.3 cm DOPPLER AV Peak Velocity 98.0 cm/s LVOT Peak Velocity 71.0 cm/s AV Area Cont Eq vti 1.8 cm squared AV Area Cont Eq pk 2.3 cm squared MV Area PHT 5.0 cm squared Mitral E to A Ratio 3.4 MV E' Velocity 13.0 cm/s Mitral E to MV E' Ratio 4.9 Mitral E to LV E' Lateral Ratio 4.3 Mitral E to LV E' Septal Ratio 5.6 TR Peak Velocity 137.0 cm/s TR Peak Gradient 7.6 mmHg Right Atrial Pressure 3.0 mmHg Pulmonary Artery Systolic Pressu 10.5 mmHg FINDINGS Left Ventricle Because of the poor ultrasonic window and the arrhythmia, the segmental wall motion analysis difficult. The septum, anteroseptum and the inferior wall segments appear to be hypokinetic. Overall ejection fraction around 40-45% Right Ventricle Possibly of normal size ejection fraction Right Atrium Mildly dilated Left Atrium Mildly increased left atrial size. Mitral Valve Thickened mitral valve. Aortic Valve No gross abnormalities noted Tricuspid Valve Not visualized well Pulmonic Valve Pulmonic valve not well visualized. Pericardium No pericardial effusion. Aorta Normal aortic annulus size. CONCLUSIONS Possibly of normal LV size with diminished ejection fraction of 40 to 45%. Wall motion normalities as mentioned above. Mild biatrial enlargement Minimally thickened mitral valves. There is no pericardial effusion. Technically difficult study because of the poor ultrasonic window. No previous study is available for comparison. Dr Odni Eddy MD FACC (Electronically Signed) Final Date: 31 May 2020 08:44 S
[2020-05-31] MEDS: FUROsemide 10 mg/mL SDV 4mL 40 MG IVP ×2 (09:06→20:17)
[2020-05-31] MEDS: pantoprazole 40 mg SDV IVP (09:06)
[2020-05-31] MEDS: levothyroxine 25 mcg Tablet PO (09:07)
[2020-05-31] MEDS: multivitamin therapeutic Tablet 1 TAB PO (09:07)
[2020-05-31] MEDS: thiamine 100 mg Tablet PO (09:07)
[2020-05-31] MEDS: folic acid 1 mg Tablet PO (09:07)
--- NOTE | 2020-05-31 10:40 | PC.NURSE ---
Weir cath removed, after removing 10 ml from balloon. Cath tip intact, no discharge noted. Pt tolerated.
--- NOTE | 2020-05-31 12:15 | PC.NURSE ---
Report faxed to CSU . Further verbal report given to Eda Monroe. Pt going to finish lunch, then transfer.
--- NOTE | 2020-05-31 12:35 | PC.NURSE ---
Pt transfered to [place] [id number] via W/C. All personal belongings with pt.
--- NOTE | 2020-05-31 13:12 | PC.NURSE ---
pt received from icu. pt helped to bathroom using walker. after pt was finished, assisted back to bed. vitals taken. needs within reach. pt denies needing anything else at this time. call light within reach. will continue to monitor.
[2020-05-31] MEDS: albumin 12.5 GM/250 ML VIAL IV (13:29)
--- NOTE | 2020-05-31 16:44 | P.PN_ITS ---
Subjective Subjective: Interval history: Elevated at 5:30 AM this morning. Since extubation he is having well otherwise. His heart rate is much better controlled now between 110. He is on Cardizem 5 mg/h. He is currently alert awake and oriented. He has had 2-3 bowel movements with lactulose. Medications: Reviewed: Yes Vitals/I&O/Wt Last Vital Signs Temp 97.8 F 05/31/20 14:45 Pulse 87 05/31/20 14:45 Resp 18 05/31/20 14:45 BP 94/39 05/31/20 14:45 Pulse Ox 98 05/31/20 14:45 05/31/20 05/31/20 05/31/20 06:59 14:59 22:59 Intake Total 132.555 / 882.555 863.465 / 863.465 Output Total 875 / 6425 700 / 700 Balance -742.445 / -5542.445 163.465 / 163.465 Weight last 48 hrs Weight 127.142 kg Weight 126.552 kg Physical Exam Narrative: EXAM NARRATIVE: GEN: awake, alert and oriented x3 , no acute distress CVS: S1S2 N RS: CTA B/L Abd: Soft,distended, bS+ WOUND TREATMENT RN: awake, alert and oriented. no focal motor deficits Urinary Catheter Management^: Weir: Cath Placed During This Visit: yes, but has since been removed by the nurse Reason for Continuing Indwelling Catheter: Decision to DC Catheter Urinary Catheter Date of Insertion: 05/30/20 Urinary Catheter Time of Insertion: 02:30 Date Urinary Catheter Removed: 05/31/20 Time Urinary Catheter Discontinued: 10:39 Data : 05/31/20 04:08 05/31/20 04:08 A&P Assessment and plan (1) Acute encephalopathy: 2 nights ago patient was noted to have a GCS of 7, following which he was intubated. Thereafter CT head was normal. Ammonia had been increased to 78. Lactulose patient has been much more alert. He was extubated successfully at 5:30 AM this morning. At this present time he is alert awake and oriented. Continue lactulose. It is possible that may he may have been experiencing alcohol withdrawal and po ssibly seizures with postictal state. However because no seizure has been witnessed, will hold off on starting Keppra at this time. Status: Acute (2) Acute renal failure: May be relate dto transient hypotension vs ATN Creatinine 1.9 today. No obstruction noted on CT of the abdomen. Fairly extensive liver cirrhosis with portal hypertension and varices are seen. Status: Acute Qualifiers: Acute renal failure type: with acute tubular necrosis Qualified C ode(s): N17.0 - Acute kidney failure with tubular necrosis (3) Ataxia: May be related to underlying chronic liver failure. Continue thiamine supplementation. Pt/ot assessment Status: Acute (4) Ascites due to alcoholic cirrhosis: Status post recent peritoneal drain placement. He has continued to have oozing around the peritoneal drain site fairly continuously. Appreciate surgical evalutaion Status: Chronic (5) End-stage liver disease: Related to chronic alcohol use. He has chronically elevated liver enzymes, slightly low albumin, some mild thrombocytopenia, macrocytosis, ascite s, as well as esophageal varices. Status: Chronic (6) ETOH abuse: History of chronic alcoholism, per son today still actively drinking 6-8 beers per day Status: Chronic (7) Atrial fibrillation with RVR: Patient continues on Cardizem infusion heart rate is currently rate 100-1 20, he is on 5 mg/h infusion. Restart oral Cardizem and overlap with the IV drip. To improve blood pressure we will give him albumin. Echocardiogram shows normal LV size with diminished EF of 40-40. There is noted to be some hypokinesis of the inferior wall segments. Mild biatrial enlargement. Status: Acute Additional A&P Information Serial neuro exams Received thiamine in the emergency room, will continue along with folate and multivitamin PT evaluation Strict I's and O's and daily weights Full code Attestations Medical Necessity Statement*: Extubated today, needs close monitoring of respiratory status and neuro checks while patient is here. Also needs to be titrated off of Cardizem drip. 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
[2020-05-31] MEDS: heparin 5,000 unit/mL INJ 1 mL 5000 UNIT SUBCUT (17:09)
[2020-05-31] MEDS: FUROsemide 40 mg Tablet PO (17:09)
[2020-05-31] MEDS: TRAMadol 50 mg Tablet PO (17:09)
--- NOTE | 2020-05-31 20:00 | PC.NURSE ---
Called Dr. Cardona and verified MAR order of PO cardizem concurrent with the Cardizem drip, Dr gave telephone verbal orders to administer PO cardizem as scheduled and titrate drip to turn off. Continue care
[2020-05-31] MEDS: dilTIAZem 60 mg Tablet PO (20:17)
--- NOTE | 2020-05-31 21:15 | PC.NURSE ---
Patient resting in semi fowlers position in bed. Patient is alert and orientated x3. Patient requesting frequent snacks and consumed a sandwich, pudding, applesauce, icy, and requested more snacks whenever staff had time. Patient is cooperative with cares, nurse emptied 325 mL from intraperitoneal drain bag, Patient did have an episode of bowel incontinence so far thus shift and staff assisted with clean up. Cardizem running at 5 mg, patient still in afib, Patients lung sounds are clear in all lobes. Continue care
--- NOTE | 2020-05-31 23:11 | PC.NURSE ---
Called Dr Cardona to verify administration on BID order for tramadol. Doctor ok with administration of tramadol for pain control.
[2020-06-01] VITALS: BP 122/73; PULSE 102; RESP 22; TEMP 36.8; O2SAT 100
[2020-06-01] MEDS: dilTIAZem 60 mg Tablet PO ×2 (00:17→06:07)
--- NOTE | 2020-06-01 00:38 | PC.NURSE ---
Patient very reliant on staff for ADL's when patient is able to perform most with supervision. Patient can void in urinal unassisted but if staff is present, patient asks staff to help uncover self, and help position urinal. Nurse emptied 300 mL's of fluid from peritoneal drain. Continue care.
[2020-06-01] MEDS: TRAMadol 50 mg Tablet PO (01:56)
[2020-06-01] MEDS: cefTRIAXone 1,000 MG in sodium chloride 0.9% (plus) 50 ML 100 MG IV (02:37)
--- NOTE | 2020-06-01 02:43 | PC.NURSE ---
Patient states his right great proximal toe joint is hurting and feels like he may be having a gout flareup. Patient doesn't like to take allpurinol due to being hard on the liver and would like to talk to the doctor about an alternative medication to help alleviate gout pain. Continue care.
[2020-06-01 03:14] VITALS: BP 113/69; PULSE 102; RESP 16; TEMP 36.8; O2SAT 100
--- NOTE | 2020-06-01 03:57 | PC.NURSE ---
Patient is also interested in receiving some kind of topical ointment for his gout flare up on right foot. Continue care.
[2020-06-01] MEDS: heparin 5,000 unit/mL INJ 1 mL 5000 UNIT SUBCUT (04:08)
[2020-06-01] MEDS: lactulose oral liq 20 gm/30 mL UDC PO ×2 (05:18→12:05)
--- NOTE | 2020-06-01 05:24 | PC.NURSE ---
Patient also requested crackers and some chips, staff informed patient that we did not have any chips but try to find something else for him to eat. Patient has made several requests from staff tonight and staff has obliged. Patient has had 1 ham sandwich, 2 cartons of milk, two boxes of cheerios, 2 chocolate puddings, 2 apple sauces, 2 jello's, 2 ice creams. Patient is very reliant on staff and does not like to perform any ADL's or movements on his own, including urinating, rolling over in bed, unwrapping coban dressings, plug cell phone in, move bedside table up and down, hold his water cup to get a drink of water. Patient needs to work on performing ADL's and tasks more independently when possible.
--- NOTE | 2020-06-01 05:36 | PC.NURSE ---
Patient continues to run afib with cardizem gtt at 5 mg, and cardizem PO 60 mg every 6 hours. Patient's heart rate currently running 110-120
--- NOTE | 2020-06-01 06:23 | PC.NURSE ---
Patient up to BSC, medium sized BM, fresh lines, gown, and blankets all changed, and patient weighed, drain bag emptied, Patient back in bed. Continue care.
[2020-06-01 06:56] VITALS: BP 118/85; PULSE 102; RESP 18; TEMP 37; O2SAT 98
[2020-06-01] MEDS: ferrous sulfate EC 325 mg Tablet PO (08:54)
[2020-06-01] MEDS: thiamine 100 mg Tablet PO (08:54)
[2020-06-01] MEDS: levothyroxine 25 mcg Tablet PO (08:54)
[2020-06-01] MEDS: nicotine 14 mg Patch 1 PATCH TRANSDERMA (08:56)
[2020-06-01] MEDS: dilTIAZem 60 mg Tablet 90 MG PO (10:34)
[2020-06-01] MEDS: FUROsemide 40 mg Tablet PO (10:35)
[2020-06-01] MEDS: pantoprazole DR 40 mg Tablet PO (11:18)
[2020-06-01] MEDS: folic acid 1 mg Tablet PO (11:18)
[2020-06-01] MEDS: multivitamin therapeutic Tablet 1 TAB PO (11:19)
[2020-06-01 12:00] VITALS: BP 132/85; PULSE 106; RESP 20; TEMP 37; O2SAT 96
--- NOTE | 2020-06-01 12:07 | PC.NURSE ---
cardizem drip turned off at this time.
[2020-06-01 15:05] VITALS: BP 122/71; PULSE 95; RESP 24; TEMP 36.9; O2SAT 95
--- NOTE | 2020-06-01 15:30 | P.DS_ITS ---
Discharge Providers Date of Admission: 05/30/20 02:55 Date of Discharge: June 01, 2020 Attending Provider at Admission: Wanda Salazar MD Attending Provider at Discharge: Marlene Watson MD Primary Care Provider: Yosvany Segovia MD Diagnoses at Discharge Discharge Diagnosis (1) Status post surgery: Status: Acute Problem details: peritoneal catheter for ascites Reason for Visit Reason for Visit: Abd Drain Complication Hospital Course Discharge Summary: Yosvany Soto is a 55-year-old male with a past medical history of end-stage liver disease, portal hypertension, extensive diuresis, chronic ascites with a recent placement of peritoneal drain on May 24, 2020 who presented to the emergency room after being noted to have altered mental status. Per his mother who had been trying to reach him, she states that patient had been excessively sleepy for the past 2 days and she was unable to wake him up and eventually brought him to the ER. On presentation here he was initially noted to be obtunded but by the next morning he was alert awake and oriented x3. Per further history obtained from the son patient is still drinking alcohol about 6-8 beers per day. Surgical consult was sought because of constant drainage around the peritoneal drain which he had been complaining of. He was evaluated by surgery and it was felt that the leakage. Once the family has had a chance to heal over. On the night of , patient was again noted to have altered mental status on the floor suddenly. His GCS was 7 following which she was intubated for airway protection. Thereafter CT head was normal, on the ammonia which was normal on arrival had increased to 78. He was started on lactulose every 6 hours and his mental status improved significantly. He was successfully extubated on the morning of at 5:30 AM. Since then he has remained alert awake and oriented. No seizure activity was ever noted. It is possible that he may have been experiencing alcohol withdrawal. He was also noted to have acute kidney injury, likely secondary to third spacing, creatinine peaked at 1.9. Meloxicam which she had been taking as an outpatient was discontinued. Spironolactone was also discontinued for this reason. It is also possible he may have had ATN related to transient hypotension. CT of the abdomen did not cigar packer and picker any obstruction of the tract. Extensive liver cirrhosis with portal hypertension and releases were seen. He is recommended to continue thiamine and folic acid supplementation on discharge to minimize the risk of Wernicke's encephalopathy. Hospital course was also complicated by Laura. marta with RVR, which was resolved after being placed on Cardizem drip for around 24 hours. It was finally able to be weaned off on the morning of 917 and has been overlapped with his p.o. Cardizem. At the time of discharge his heart rate is in the 90s and blood pressure is within range. He is being discharged in a chronically ill but currently stable condition. Active issues have resolved. He is being discharged to go home and will live with his son. Physical Exam Narrative: EXAM NARRATIVE: GEN: Awake, alert and oriented, no acute distress CVS: S1S2 N RS: CTA B/L Abd: Soft, distended, peritoneal drain with bag attached draining clear fluid. DOLL DRESSER: no focal neuro deficits Urinary Catheter Management^: Weir: Cath Placed During This Visit: yes, but has since been removed by the nurse Reason for Continuing Indwelling Catheter: Decision to DC Catheter Urinary Catheter Date of Insertion: 05/30/20 Urinary Catheter Time of Insertion: 02:30 Date Urinary Catheter Removed: 05/31/20 Time Urinary Catheter Discontinued: 10:39 Discharge Data Data Completed and Pending: Completed Studies During Hospitalization Category Date Time Status CT head wo con* 7 0450 Stat Cat Scan 05/30/20 08:[address] head wo con* 7 0450 Urgent Cat Scan 05/28/20 22:[address] kidney stone 7 4176 Routine Cat Scan 05/30/20 08:36 Completed XR chest 1V kasia ble [id number] Routine Exams 05/30/20 02:30 Completed CV echo complete* [id number] Routine Ultrasound 05/31/20 08:39 Completed Pending at discharge Category Date Time Status EEG electroenceph alogram Routine Exams 05/30/20 08:33 Ordered Sputum Culture Ro utine Lab 05/30/20 17:00 Results Vitals: Last Vital Signs Temp 98.4 F 06/01/20 15:05 Pulse 95 06/01/20 15:05 Resp 24 H 06/01/20 15:05 BP 122/71 06/01/20 15:05 Pulse Ox 95 06/01/20 15:05 Discharge Plan Discharge Patient Disposition: Home Condition: Stable Prescriptions: New lactulose 20 gram/30 mL Solution 20 g PO Q6H 30 Days Qty: 3600 RF: 0 thiamine mononitrate (vit B1) [Vitamin B-1 (mononitrate)] 100 mg Tablet 100 mg PO DAILY Qty: 0 RF: 0 Continued vitamin E (dl, acetate) 400 unit capsule 400 unit PO BID RF: 0 pentoxifylline 400 mg tablet extended release 400 mg PO TID RF: 0 sildenafil 100 mg tablet 100 mg PO DAILY PRN (Reason: OTHER) RF: 0 potassium chloride [Klor-Con M20] 20 mEq tablet,ER particles/crystals 20 meq PO DAILY RF: 0 ferrous sulfate 325 mg (65 mg iron) tablet 325 mg PO DAILY RF: 0 folic acid 400 mcg tablet 0.4 mg PO DAILY RF: 0 pantoprazole 40 mg tablet,delayed release (DR/EC) 40 mg PO DAILY RF: 0 meloxicam 7.5 mg tablet 7.5 mg PO DAILY RF: 0 vitamin B complex [B Complex-Vitamin B12] Tablet 1 tab PO DAILY RF: 0 thiamine HCl (vitamin B1) 500 mg tablet 500 mg PO DAILY RF: 0 tadalafil 20 mg tablet 20 mg PO DAILY PRN (Reason: sexual activity) Qty: 20 RF: 12 tramadol 50 mg Tablet 50 mg PO BID PRN (Reason: Pain) RF: 0 levothyroxine 25 mcg tablet 25 mcg PO DAILY RF: 0 diltiazem HCl 120 mg tablet 120 mg PO Q6H RF: 0 Changed furosemide [Lasix] 40 mg tablet 40 mg PO BID Qty: 0 RF: 0 Discontinued spironolactone [Aldactone] 100 mg tablet 100 mg PO DAILY Qty: 90 RF: 3 Discharge Orders: Discharge Order (Routine); Ordered 06/01/20 Ordered By: Marlene Watson Referrals: Yosvany Segovia MD [Primary Care Provider] - 7-10 days Discharge Diet: Usual diet Discharge Activity: Resume usual activity Discharge Attestations Time Spent in Discharge Care*: greater than 30 min Quality Metrics Clinical Quality Measures During this hospital stay, did patient experience: None Coding Level of Care Code Acute [place] Instructor for [facility] Diagnoses Status post surgery Z98.890
[2020-06-01 16:33] VITALS: BP 122/71; PULSE 95; RESP 24; TEMP 36.9; O2SAT 95
== END 2020-06-01 16:56 | disposition home or self-care (01) | DRG 432 ==
LOC: ER 23:01 → MEDSURG 05-29 01:38 → ICU 05-30 07:14 → CSU 05-31 12:28
PROVIDERS: Internal Medicine; Admitting Provider Hospitalist; Emergency Provider Emergency Medicine; PCP Family Medicine; Visit Provider Student in an Organized Health Care Education/Training Program
DX: K70.31 Alcoholic cirrhosis of liver with ascites (principal); N17.0 Acute kidney failure with tubular necrosis; E51.2 Wernicke's encephalopathy; K76.6 Portal hypertension; I48.91 Unspecified atrial fibrillation; K72.90 Hepatic failure, unspecified without coma; M14.60 Charcot's joint, unspecified site; I73.9 Peripheral vascular disease, unspecified; F17.210 Nicotine dependence, cigarettes, uncomplicated
CPT/HCPCS: 12345; 36415; 36416; 36600; 51702; 70450; 71045; 74176; 80053; 80307; 81003; 82140; 82803; 82962; 83735; 84100; 84484; 85025; 85610; 85730; 87070; 93005; 93306; 94002; 94799; 96372; 96375; 97161; 97530; 99281; C9113; G0378; J0696; J1644; J1940; J2704; J3411; J3490; J7040; P9041

== ENCOUNTER 2020-06-08 13:13 | Emergency (ER) | payer BC, SELFPAY ==
[2020-06-08 13:14] VITALS: BP 109/58; PULSE 82; RESP 16; TEMP 36.8; O2SAT 100; BMI 34.8
--- NOTE | 2020-06-08 13:17 | XR_ITS ---
WS: [id number] TAWANDA, 06/08/2020 Clinical Data: paracentesis drain Comparison: None. Findings: No abnormal intraabdominal masses or calcifications are seen. There is no dilatated small bowel or ev idence of obstruction. Result large amount of fecal material throughout the colon. Degenerative change of the L3-L4 level is seen. XR/XR KUB [id number] Impression: Large amount of fecal material throughout colon.
--- NOTE | 2020-06-08 13:18 | ED_ITS ---
HPI - General Adult General: Chief complaint: General Medical Stated complaint: G TUBE PULLED OUT Time Seen by Provider: 06/08/20 13:14 Source: patient and EMS Mode of arrival: EMS Limitations: no limitations History of Present Illness: HPI narrative: 55-year-old male that has a paracentesis drain in place the right side of the abdomen. He states that he pulled a portion of it out today on accident. He still has some in place. He denies any pain. Denies any fever. Dr. Brown did place the drain. Associated symptoms: Deny chest pain, dyspnea, headache(s), nausea, rash or vomiting Review of Systems Const: Denies: fever(s), chills, body aches or change in appetite Eyes: Denies: blurry vision or eye discomfort ENMT: Denies: throat pain or dental pain Card: Denies: chest pain Resp: Denies: dyspnea GI: Denies: abdominal pain, nausea, vomiting or diarrhea : Denies: dysuria Musc: Denies: neck pain or back pain Skin/Breast: Denies: rash Neuro: Denies: headache(s) Psych: Denies: depression Avinash/Lymph: Denies: easy bruising All/Imm: Denies: urticaria PFSH ED PFSH: Medical History Charcot's arthropathy End-stage liver disease Erectile dysfunction History of abdominal paracentesis Hx of esophageal varices Neuropathy Peyronie disease PVD (peripheral vascular disease) Surgical History H/O colonoscopy 10-12 yrs H/O esophagogastroduodenoscopy History of tonsillectomy Hx of umbilical hernia repair Hx of vasectomy Status post surgery (05/24/20) peritoneal catheter for ascites Family History Grandfather CAD (coronary artery disease) Grandmother CAD (coronary artery disease) Cancer Father Cancer Denies family history of Anesthesia complication Bleeding disorder Social History Smoking and tobacco status: light tobacco smoker Alcohol intake: current Alcohol intake frequency: 0-2 Drinks per Day Alcohol type: beer Adopted: No Caregiver/support person: No Lives independently: No Marital status: Current occupational status: employed History of recent travel: No Current gender identity: Male Physical Exam Const: COMMON NORMALS: no acute distress, patient oriented x3 and healthy appearing HENMT: COMMON NORMALS: normocephalic and atraumatic HEAD & SCALP: normocephalic and atraumatic Eye: COMMON NORMALS: Equal, round and reactive pupils present and EOMs intact bilaterally PUPIL: Yes Equal, round and reactive pupils present Neck/C-Spine: COMMON NORMALS: full ROM and supple Chest: COMMONS NORMALS: normal inspection of the chest and normal palpation of entire chest wall Resp: COMMON NORMALS: normal respiratory effort, No retractions, No use of accessory muscles and clear to auscultation bilaterally AUSCULTATION: clear to auscultation bilaterally Cardio: COMMON NORMALS: regular rate, regular rhythm and No murmurs present (Cardio) RATE: regular rate RHYTHM: regular rhythm GI: COMMON NORMALS: Soft to palpation, non-tender and no masses PALPATION: Yes Soft to palpation OTHER: Drain in place to right lower abdomen is slightly further out but is still in place. Extremity: COMMON NORMALS: normal to inspection and full ROM Neuro: COMMON NORMALS: patient oriented x3, moves all extremities and no focal motor deficits Psych: COMMON NORMALS: mental status grossly normal, Normal thought process present and cooperative THOUGHT PROCESS: Normal thought process present Skin: COMMON NORMALS: no rashes or lesions noted and no wounds GENERAL SKIN EXAM: no rashes or lesions noted Course Vital Signs: Vital signs: Vital Signs Temperature 98.2 F 06/08/20 13:14 Pulse Rate 82 06/08/20 13:14 Respiratory Rate 16 06/08/20 13:14 Blood Pressure 109/58 06/08/20 13:14 Pulse Oximetry 100 06/08/20 13:14 MDM - General Adult MDM Narrative: Medical decision making narrative: Patient presents here with dislodgment of his paracentesis tube. He while he was here totally removed it. Patient had a lot of drainage from the sites I did place a [id number] stitch and he no longer has any drainage. I spoke to Dr. Brown who placed the paracentesis tube and he did recommend a [id number] stitch and he will follow him up in clinic in 1 to 2 days. Patient is to return if worsening. Discharge Plan Discharge Patient Disposition: Home Clinical Impression: Abdominal ascites Qualifiers: Ascites type: other type Qualified Code(s): R18.8 - Other ascites Condition: Stable Prescriptions: No Action vitamin E (dl, acetate) 400 unit capsule 400 unit PO BID RF: 0 pentoxifylline 400 mg tablet extended release 400 mg PO TID RF: 0 sildenafil 100 mg tablet 100 mg PO DAILY PRN (Reason: OTHER) RF: 0 potassium chloride [Klor-Con M20] 20 mEq tablet,ER particles/crystals 20 meq PO DAILY RF: 0 ferrous sulfate 325 mg (65 mg iron) tablet 325 mg PO DAILY RF: 0 folic acid 400 mcg tablet 0.4 mg PO DAILY RF: 0 pantoprazole 40 mg tablet,delayed release (DR/EC) 40 mg PO DAILY RF: 0 meloxicam 7.5 mg tablet 7.5 mg PO DAILY RF: 0 vitamin B complex [B Complex-Vitamin B12] Tablet 1 tab PO DAILY RF: 0 thiamine HCl (vitamin B1) 500 mg tablet 500 mg PO DAILY RF: 0 tadalafil 20 mg tablet 20 mg PO DAILY PRN (Reason: sexual activity) Qty: 20 RF: 12 tramadol 50 mg Tablet 50 mg PO BID PRN (Reason: Pain) RF: 0 levothyroxine 25 mcg tablet 25 mcg PO DAILY RF: 0 diltiazem HCl 120 mg tablet 120 mg PO Q6H RF: 0 Vitamin B-1 (mononitrate) 100 mg Tablet 100 mg PO DAILY Qty: 0 RF: 0 lactulose 20 gram/30 mL Solution 20 g PO Q6H 30 Days Qty: 3600 RF: 0 Lasix 40 mg tablet 40 mg PO BID Qty: 0 RF: 0 Discharge Orders: Discharge Order (Routine); Ordered 06/08/20 Ordered By: Melanie Aldana Referrals: Keith Brown MD [Physician] - 1-3 days Yosvany Segovia MD [Primary Care Provider] - Discharge Diet: Advance as tolerated Discharge Activity: Resume usual activity Patient Instructions: Ascites (ED) Coding Level of Care Code ED Family Medicine Physician Assistant for Chg Fwd Exam Comprehensive
--- NOTE | 2020-06-08 14:05 | PC.NURSE ---
Took patient to the restroom. Some how will transferring patient the Peritoneal drain was pulled completely out.
[2020-06-08] MEDS: HYDROcodone-acetaminophen 5-325 mg Tablet 1 TAB PO (14:21)
[2020-06-08] MEDS: ondansetron 4 MG Tablet PO (14:21)
[2020-06-08 14:24] VITALS: BP 100/86; PULSE 92; RESP 18; O2SAT 99
--- NOTE | 2020-06-09 09:18 | DCPLANNER ---
heavy equipment service manager had message to schedule a follow up appointment for patient with Dr. Brown at [facility]. heavy equipment service manager called the [facility], spoke with Marilee. heavy equipment service manager was told that patients information would be printed and given to Maddy for review. Clinic will call patient with appointment information.
--- NOTE | 2020-06-12 07:58 | DCPLANNER ---
Patient had follow up appointment scheduled for 06.09.20 with [facility] - patient did attend appointment.
== END 2020-06-08 14:45 | disposition home or self-care (01) ==
PROVIDERS: Emergency Provider Emergency Medicine; PCP Family Medicine
DX: R18.8 Other ascites (principal); F17.210 Nicotine dependence, cigarettes, uncomplicated
CPT/HCPCS: 12345; 74018; 99282; 99283; Q0162

== ENCOUNTER → 2020-06-11 17:07 | Outpatient (BNVA) | payer BC, SELFPAY | PROVIDERS: PCP Family Medicine; Visit Provider Nurse Practitioner | DX: K70.31 Alcoholic cirrhosis of liver with ascites (principal) | CPT/HCPCS: 87635 ==

== ENCOUNTER 2020-06-13 13:06 | Inpatient (IN) | payer BC, SELFPAY ==
[2020-06-13] VITALS (16 sets, daily range): BP systolic 106–131; BP diastolic 55–76; PULSE 61–104; RESP 12–23; TEMP 36.7–36.8; O2SAT 93–100; BMI 34.7
[2020-06-13 13:30] LABS: Basophils # 0.1 10^3/uL (0.0-0.1); Basophils % 0.5 %; Eosinophils # 0.1 10^3/uL (0.0-0.8); Eosinophils % 1.1 %; Hemoglobin 13.8 g/dL (11.7-16.6); Lymphocytes # 1.1 10^3/uL (0.8-4.8); Lymphocytes % 9.2 %; Mean Corpuscular HGB Conc 36.3 g/dL (30.0-36.0); Mean Corpuscular Hemoglobin 35.9 pg (28.0-34.0); Mean Platelet Volume 9.9 fL (7.4-10.4); Monocytes # 1.3 10^3/uL (0.2-0.9); Monocytes % 11.1 %; Neutrophils # 8.87 10^3/uL (1.8-7.7); Neutrophils % 77.3 %; Nucleated Red Blood Cells % 0 %; Platelet Count 195 10^3/cmm (130-400); Red Blood Count 3.84 10^6/uL (4.1-5.3); Red Cell Distribution Width 12.5 % (12.1-15.1); White Blood Count 11.5 10^3/uL (4.0-10.0)
--- NOTE | 2020-06-13 13:42 | W.ED.GENADLT ---
Documented by User: Melanie Aldana MD 06/13/20 14:49 HPI - General Adult General: Source: patient Mode of arrival: ambulatory Limitations: no limitations History of Present Illness: HPI narrative: 55-year-old male with a history of cirrhosis along with ascites. Patient seen his PCP and had outpatient labs drawn with a sodium level of 116. I had seen patient roughly a week ago and his sodium at that time was 134. Patient states that his abdominal swelling is improved. He has had some slight weakness. He has no confusion at this time. He denies any fever or abdominal pain. Associated symptoms: Deny chest pain, dyspnea, headache(s), nausea, rash or vomiting Review of Systems Const: Denies: fever(s), chills, body aches or change in appetite Eyes: Denies: blurry vision or eye discomfort ENMT: Denies: throat pain or dental pain Card: Denies: chest pain Resp: Denies: dyspnea GI: Denies: abdominal pain, nausea, vomiting or diarrhea : Denies: dysuria Musc: Denies: neck pain or back pain Skin/Breast: Denies: rash Neuro: Denies: headache(s) Psych: Denies: depression Avinash/Lymph: Denies: easy bruising All/Imm: Denies: urticaria PFSH ED PFSH: Medical History (Updated 07/05/20 @ 08:16 by Keith Brown MD) Atrial fibrillation and flutter Atrial fibrillation with RVR Charcot's arthropathy End-stage liver disease Erectile dysfunction History of abdominal paracentesis Hx of esophageal varices Neuropathy Peyronie disease PVD (peripheral vascular disease) Surgical History (Updated 07/05/20 @ 08:16 by Keith Brown MD) H/O colonoscopy 10-12 yrs H/O esophagogastroduodenoscopy History of tonsillectomy Hx of umbilical hernia repair Hx of vasectomy Status post surgery (07/05/20) peritoneal catheter for ascites Family History Grandfather CAD (coronary artery disease) Grandmother CAD (coronary artery disease) Cancer Father Cancer Denies family history of Anesthesia complication Bleeding disorder Social History Smoking and tobacco status: light tobacco smoker Alcohol intake: current Alcohol intake frequency: 0-2 Drinks per Day Alcohol type: beer Adopted: No Caregiver/support person: No Lives independently: No Marital status: Current occupational status: employed History of recent travel: No Current gender identity: Male Physical Exam Const: COMMON NORMALS: no acute distress, patient oriented x3 and healthy appearing HENMT: COMMON NORMALS: normocephalic and atraumatic HEAD & SCALP: normocephalic and atraumatic Eye: COMMON NORMALS: Equal, round and reactive pupils present and EOMs intact bilaterally PUPIL: Yes Equal, round and reactive pupils present Neck/C-Spine: COMMON NORMALS: full ROM and supple Chest: COMMONS NORMALS: normal inspection of the chest and normal palpation of entire chest wall Resp: COMMON NORMALS: normal respiratory effort, No retractions, No use of accessory muscles and clear to auscultation bilaterally AUSCULTATION: clear to auscultation bilaterally Cardio: COMMON NORMALS: regular rate, regular rhythm and No murmurs present (Cardio) RATE: regular rate RHYTHM: regular rhythm GI: COMMON NORMALS: Normal to inspection, nondistended, normoactive bowel sounds present, Soft to palpation, non-tender and no masses PALPATION: Yes Soft to palpation Extremity: COMMON NORMALS: normal to inspection and full ROM Neuro: COMMON NORMALS: patient oriented x3, moves all extremities and no focal motor deficits Psych: COMMON NORMALS: mental status grossly normal, Normal thought process present and cooperative THOUGHT PROCESS: Normal thought process present Skin: COMMON NORMALS: no rashes or lesions noted and no wounds GENERAL SKIN EXAM: no rashes or lesions noted Course Vital Signs: Vital signs: Vital Signs Temperature 98.6 F 06/17/20 11:05 Pulse Rate 84 06/17/20 11:05 Respiratory Rate 18 06/17/20 11:05 Blood Pressure 116/70 06/17/20 11:05 Pulse Oximetry 97 06/17/20 11:05 MDM - General Adult MDM Narrative: Medical decision making narrative: Patient presents here with hyponatremia that is severe in nature. Patient is asymptomatic here. Spoke to hospitalist will admit to the ICU. Patient given Lasix here. He has no signs of peritonitis. Lab Data: Labs: Lab Results 06/13/20 06/13/20 Range/Units 13:21 13:21 WBC 11.5 H (4.0-10.0) 10^3/ uL RBC 3.84 L (4.1-5.3) 10^6/u L Hgb 13.8 (11.7-16.6) g/dL Hct 38.0 L (42.0-52.0) % MCV 99.0 H (80-94) fL MCH 35.9 H (28.0-34.0) pg MCHC 36.3 H (30.0-36.0) g/dL RDW 12.5 (12.1-15.1) % Plt Count 195 (130-400) 10^3/c mm MPV 9.9 (7.4-10.4) fL Neut % (Auto) 77.3 % Lymph % (Auto) 9.2 % Wilkes % (Auto) 11.1 % Eos % (Auto) 1.1 % Baso % (Auto) 0.5 % Neut # (Auto) 8.87 H (1.8-7.7) 10^3/u L Lymph # (Auto) 1.1 (0.8-4.8) 10^3/u L Wilkes # (Auto) 1.3 H (0.2-0.9) 10^3/u L Eos # (Auto) 0.1 (0.0-0.8) 10^3/u L Baso # (Auto) 0.1 (0.0-0.1) 10^3/u L Nucleated RBC % (a uto) 0 % Nucleated RBCs # 0.0 /100WBC Sodium 115 L* (136-145) mmol/L Potassium 4.4 (3.5-5.1) mmol/L Chloride 81 L (98-107) mmol/L Carbon Dioxide 21 L (22-29) mmol/L Anion Gap 17.4 (5-19) BUN 15 (6-20) mg/dL Creatinine 1.2 (0.7-1.2) mg/dL GFR Calculation 62.6 L (90-130) mL/min Glucose 142 H (65-115) mg/dL Calculated Osmolal ity 243 L (285-295) mOsm/k g Calcium 9.2 (8.5-10.5) mg/dL Total Bilirubin 1.8 H (0.15-1.2) mg/dL AST 51 H (0-40) U/L ALT 38 (0-41) U/L Alkaline Phosphata se 139 H (40-130) IU/L Total Protein 6.4 L (6.6-8.7) g/dL Albumin 3.3 L (3.5-5.2) g/dL Globulin 3.1 (1.3-4.6) g/dL Critical Care Time Critical Care Time: Critical Care Time: Yes Total Critical Care Time: 36 Attestation: This case had a high probability of a clinically significant, sudden, or life threatening deterioration of this patient's condition which required my full and direct attention, intervention and personal management. Discharge Plan Discharge Patient Disposition: Admitted As Inpatient Admit Provider: Warren Weir Clinical Impression: End-stage liver disease, Acute hyponatremia Condition: Stable Referrals: Yosvany Segovia MD [Primary Care Provider] - 06/21/20 9:15 am Discharge Diet: Cardiac Discharge Activity: Increase activity as tolerated Patient Instructions: Furosemide (By mouth), Hyponatremia (GEN) Additional Instructions: Follow-up with primary care provider by Friday with a [facility] Fluid restriction 1200 cc max Take Lasix 60 mg twice daily Discharge Date/Time: 06/13/20 16:11 Coding Level of Care Code ED Bioinformatics Analyst for Chg Fwd Exam Comprehensive Documented by User: Marlene Watson MD 07/12/20 21:01 [facility] ED PFS: Medical History (Updated 07/05/20 @ 08:16 by Keith Brown MD) Atrial fibrillation and flutter Atrial fibrillation with RVR Charcot's arthropathy End-stage liver disease Erectile dysfunction History of abdominal paracentesis Hx of esophageal varices Neuropathy Peyronie disease PVD (peripheral vascular disease) Surgical History (Updated 07/05/20 @ 08:16 by Keith Brown MD) H/O colonoscopy 10-12 yrs H/O esophagogastroduodenoscopy History of tonsillectomy Hx of umbilical hernia repair Hx of vasectomy Status post surgery (07/05/20) peritoneal catheter for ascites Family History Grandfather CAD (coronary artery disease) Grandmother CAD (coronary artery disease) Cancer Father Cancer Denies family history of Anesthesia complication Bleeding disorder Social History Smoking and tobacco status: light tobacco smoker Alcohol intake: current Alcohol intake frequency: 0-2 Drinks per Day Alcohol type: beer Adopted: No Caregiver/support person: No Lives independently: No Marital status: Current occupational status: employed History of recent travel: No Current gender identity: Male Course Consultations: Consultation #1: Added by Dr. Marlene Watson: For unclear reason, patient's note showed up in my sign queue to cosign and listed under deficient documents. This note attests that I was not involved in the patient's care on this visit. I have not seen or examined the patient or otherwise discussed care with other physicians. There does not appear to be a way to remove this visit from my list after discussion with IT, hence this note added. Vital Signs: Vital signs: Vital Signs Temperature 98.6 F 06/17/20 11:05 Pulse Rate 84 06/17/20 11:05 Respiratory Rate 18 06/17/20 11:05 Blood Pressure 116/70 06/17/20 11:05 Pulse Oximetry 97 06/17/20 11:05 MDM - General Adult Lab Data: Labs: Lab Results 06/13/20 06/13/20 Range/Units 13:21 13:21 WBC 11.5 H (4.0-10.0) 10^3/ uL RBC 3.84 L (4.1-5.3) 10^6/u L Hgb 13.8 (11.7-16.6) g/dL Hct 38.0 L (42.0-52.0) % MCV 99.0 H (80-94) fL MCH 35.9 H (28.0-34.0) pg MCHC 36.3 H (30.0-36.0) g/dL RDW 12.5 (12.1-15.1) % Plt Count 195 (130-400) 10^3/c mm MPV 9.9 (7.4-10.4) fL Neut % (Auto) 77.3 % Lymph % (Auto) 9.2 % Wilkes % (Auto) 11.1 % Eos % (Auto) 1.1 % Baso % (Auto) 0.5 % Neut # (Auto) 8.87 H (1.8-7.7) 10^3/u L Lymph # (Auto) 1.1 (0.8-4.8) 10^3/u L Wilkes # (Auto) 1.3 H (0.2-0.9) 10^3/u L Eos # (Auto) 0.1 (0.0-0.8) 10^3/u L Baso # (Auto) 0.1 (0.0-0.1) 10^3/u L Nucleated RBC % (a uto) 0 % Nucleated RBCs # 0.0 /100WBC Sodium 115 L* (136-145) mmol/L Potassium 4.4 (3.5-5.1) mmol/L Chloride 81 L (98-107) mmol/L Carbon Dioxide 21 L (22-29) mmol/L Anion Gap 17.4 (5-19) BUN 15 (6-20) mg/dL Creatinine 1.2 (0.7-1.2) mg/dL GFR Calculation 62.6 L (90-130) mL/min Glucose 142 H (65-115) mg/dL Calculated Osmolal ity 243 L (285-295) mOsm/k g Calcium 9.2 (8.5-10.5) mg/dL Total Bilirubin 1.8 H (0.15-1.2) mg/dL AST 51 H (0-40) U/L ALT 38 (0-41) U/L Alkaline Phosphata se 139 H (40-130) IU/L Total Protein 6.4 L (6.6-8.7) g/dL Albumin 3.3 L (3.5-5.2) g/dL Globulin 3.1 (1.3-4.6) g/dL Discharge Plan Discharge Patient Disposition: Admitted As Inpatient Admit Provider: Warren Weir Clinical Impression: End-stage liver disease, Acute hyponatremia Condition: Stable Referrals: Yosvany Segovia MD [Primary Care Provider] - 06/21/20 9:15 am Discharge Diet: Cardiac Discharge Activity: Increase activity as tolerated Patient Instructions: Furosemide (By mouth), Hyponatremia (GEN) Additional Instructions: Follow-up with primary care provider by Friday with a BMP Fluid restriction 1200 cc max Take Lasix 60 mg twice daily Discharge Date/Time: 06/13/20 16:11 Coding Level of Care Code ED Bioinformatics Analyst for Chg Fwd Exam Comprehensive
[2020-06-13 13:50] LABS: Alanine Aminotransferase 38 U/L (0-41); Albumin Level 3.3 g/dL (3.5-5.2); Alkaline Phosphatase 139 IU/L (40-130); Anion Gap 17.4 (5-19); Aspartate Amino Transferase 51 U/L (0-40); Blood Urea Nitrogen 15 mg/dL (6-20); Calcium 9.2 mg/dL (8.5-10.5); Carbon Dioxide 21 mmol/L (22-29); Chloride 81 mmol/L (98-107); Globulin 3.1 g/dL (1.3-4.6); Glomerular Filtration Rate 62.6 mL/min (90-130); Glucose 142 mg/dL (65-115); Osmolality Calculated 243 mOsm/kg (285-295); Potassium 4.4 mmol/L (3.5-5.1); Total Bilirubin 1.8 mg/dL (0.15-1.2); Total Protein 6.4 g/dL (6.6-8.7)
[2020-06-13 13:53] LABS: Sodium 115 mmol/L (136-145)
[2020-06-13] MEDS: morphine 4 mg/mL SDV 1 mL IVP (14:45)
[2020-06-13] MEDS: FUROsemide 10 mg/mL SDV 4mL 40 MG IVP (15:39)
--- NOTE | 2020-06-13 16:40 | PM.HP ---
Providers/Chief Complaint Admitting Physician: Warren Weir MD Primary Care Provider: Yosvany Segovia MD Chief Complaint: LOW SODIUM History of Present Illness Yosvany Soto is a 55 year old male that presented to the emergency department with history of abnormal labs. According to the patient he was called by his primary care provider and told he had a sodium level of 116. He was referred to the ER. Patient reports he has been feeling okay. He reports he feels little tired and dizzy when he stands up. No shortness of breath, chest pain, significant swelling. Last alcohol intake shot of hard liquor 1 or 2 days ago. Reports his alcohol use is very infrequent currently. He reports he is not on any fluid restriction. He does report he has been taking his diuretic Lasix but does not take Aldactone. No fever, abdominal pain, exposure to COVID, personal history of COVID. Recently discharged from the hospital June 01 at which time he had encephalopathy and need for intubation for airway protection, acute kidney injury, episode of atrial fibrillation. Review of Systems General: Reports: 10 or more systems reviewed and unremarkable except in HPI and below Const: Denies: fever(s) Eyes: Denies: change in vision ENMT: Denies: throat pain Card: Denies: chest pain Resp: Denies: dyspnea GI: Denies: abdominal pain : Denies: flank pain Musc: Denies: neck pain Skin/Breast: Denies: rash Psych: Denies: anxiety Endo: Denies: polyuria Avinash/Lymph: Denies: easy bruising All/Imm: Denies: urticaria Medications/Allergies Home Medications Medication Instructions Recorded Confirmed Last Taken Type ferrous sulfate 325 mg (65 mg 325 mg PO DAILY 01/04/20 06/13/20 06/12/20 History iron) tablet folic acid 400 mcg tablet 0.4 mg PO DAILY 01/04/20 06/13/20 06/12/20 History meloxicam 7.5 mg tablet 7.5 mg PO DAILY 01/04/20 06/13/20 05/23/20 History pantoprazole 40 mg tablet,delayed 40 mg PO DAILY 01/04/20 06/13/20 06/13/20 History release pentoxifylline 400 mg 400 mg PO TID 01/04/20 06/13/20 06/13/20 History tablet,extended release potassium chloride 20 mEq 20 meq PO DAILY 01/04/20 06/13/20 05/23/20 History tablet,extended release(part/cryst) sildenafil 100 mg tablet 100 mg PO DAILY PRN 01/04/20 06/13/20 Unknown History thiamine HCl (vitamin B1) 500 mg 500 mg PO DAILY 01/04/20 06/13/20 06/13/20 History tablet vitamin B complex 1 tab PO DAILY 01/04/20 06/13/20 06/13/20 History vitamin E (dl, acetate) 400 unit 400 unit PO BID 01/04/20 06/13/20 06/13/20 History capsule tadalafil 20 mg tablet 20 mg PO DAILY PRN #20 tab 01/10/20 06/13/20 Unknown Rx tramadol 50 mg PO BID PRN 05/05/20 06/13/20 06/13/20 History diltiazem HCl 120 mg PO Q6H 05/12/20 06/13/20 06/13/20 History levothyroxine 25 mcg PO DAILY 05/12/20 06/13/20 05/22/20 History furosemide [Lasix] 40 mg PO BID #0 tab 06/01/20 06/13/20 06/13/20 Rx lactulose 20 g PO Q6H 30 Days #3600 ml 06/01/20 06/13/20 06/13/20 Rx thiamine mononitrate (vit B1) 100 mg PO DAILY #0 tab 06/01/20 06/13/20 06/12/20 Rx [Vitamin B-1 (mononitrate)] spironolactone 100 mg PO DAILY 06/13/20 06/13/20 Unknown History Allergies Allergy/AdvReac Type Severity Reaction Status Date / Time Penicillins Allergy ALGY-Difficulty Verified 06/13/20 13:48 Breathing Sulfa (Sulfonamide Allergy Unknown Verified 06/13/20 13:48 Antibiotics) PFSH Acute PFSH: Medical History Atrial fibrillation with RVR Charcot's arthropathy End-stage liver disease Erectile dysfunction History of abdominal paracentesis Hx of esophageal varices Neuropathy Peyronie disease PVD (peripheral vascular disease) Surgical History H/O colonoscopy 10-12 yrs H/O esophagogastroduodenoscopy History of tonsillectomy Hx of umbilical hernia repair Hx of vasectomy Status post surgery (05/24/20) peritoneal catheter for ascites Family History Grandfather CAD (coronary artery disease) Grandmother CAD (coronary artery disease) Cancer Father Cancer Denies family history of Anesthesia complication Bleeding disorder Social History Smoking and tobacco status: light tobacco smoker Alcohol intake: current Alcohol intake frequency: 0-2 Drinks per Day Alcohol type: beer Adopted: No Caregiver/support person: No Lives independently: No Marital status: Current occupational status: employed History of recent travel: No Current gender identity: Male Vitals/I&O/Wt Last Vital Signs Temp 98.1 F 06/13/20 13:13 Pulse 104 H 06/13/20 16:35 Resp 19 H 06/13/20 16:35 BP 120/70 06/13/20 16:35 Pulse Ox 93 06/13/20 16:35 Weight last 48 hrs Weight 119.295 kg Physical Exam Narrative: EXAM NARRATIVE: General exam is a white male, no apparent distress, conversant HEENT: Pupils equally round. Oropharynx clear. Neck is supple no lymphadenopathy or thyromegaly Cardiovascular regular rate and rhythm without murmur Lungs clear no wheezing or crackles Abdomen is soft. No tenderness. Positive bowel sounds. Enlarged liver and spleen palpable. Probable mild ascites with fluid wave. Extremities no cyanosis clubbing or edema Skin without rash Neuro no obvious focal deficits Data : 06/13/20 13:21 06/13/20 13:21 Other data: Bilirubin 1.8, AST 51, ALT 38, alk phos 139, albumin 3.3 A&P Assessment and plan (1) Acute hyponatremia: At this point we will repeat his sodium, in 4 hours I believe he has some extra volume, in the form of ascites. Lasix 40 mg IV x1 fluid restriction 1000 cc Further treatment depending upon repeat sodium Initially placed in the ICU secondary to his protracted last hospital course of atrial fibrillation, encephalopathy, intubation, etc. Status: Acute (2) End-stage liver disease: Continue close monitoring of liver function Status: Chronic (3) ETOH abuse: Discussed with him to avoid all alcohol Monitor for withdrawal Thiamine daily Status: Chronic Additional A&P Information History of atrial fibrillation. Continue diltiazem. He is taking 120 mg every 8 hours per his reed polisher. History of hepatic encephalopathy. Continue lactulose History of hypothyroidism History of peripheral vascular disease Full code Heparin for DVT prophylaxis. Attestations Medical Necessity Statement*: Will need greater than 2 midnight stay for treatment of hyponatremia, severe Time Spent in Patient Care: Greater than 35 minutes Coding Level of Care Code Acute Blower And Compressor Assembler for Tay Rust Diagnoses Acute hyponatremia E87.1 End-stage liver disease K72.90 ETOH abuse F10.10
[2020-06-13] MEDS: dilTIAZem 60 mg Tablet 120 MG PO (17:42)
[2020-06-13] MEDS: FUROsemide 40 mg Tablet PO (17:42)
[2020-06-13] MEDS: heparin 5,000 unit/mL INJ 1 mL 5000 UNIT SUBCUT (17:43)
[2020-06-13] MEDS: lactulose oral liq 20 gm/30 mL UDC PO ×2 (17:43→23:39)
--- NOTE | 2020-06-13 18:12 | PC.NURSE ---
Home Meds removed from Pyxis, placed at bedside for impending transfer.
[2020-06-13 19:04] LABS: Anion Gap 16.3 (5-19); Blood Urea Nitrogen 15 mg/dL (6-20); Calcium 9.4 mg/dL (8.5-10.5); Carbon Dioxide 24 mmol/L (22-29); Chloride 80 mmol/L (98-107); Glomerular Filtration Rate 62.6 mL/min (90-130); Glucose 116 mg/dL (65-115); Osmolality Calculated 244 mOsm/kg (285-295); Potassium 4.3 mmol/L (3.5-5.1)
[2020-06-13 19:13] LABS: Sodium 116 mmol/L (136-145)
[2020-06-13 22:46] LABS: Potassium, Radom Urine 37 mmol/L; Urine Random Chloride 35 mmol/L
[2020-06-13 22:57] LABS: Urine Random Sodium < 10 mmol/L
[2020-06-13 23:05] LABS: Anion Gap 13.7 (5-19); Blood Urea Nitrogen 17 mg/dL (6-20); Calcium 8.8 mg/dL (8.5-10.5); Carbon Dioxide 26 mmol/L (22-29); Chloride 83 mmol/L (98-107); Glomerular Filtration Rate 62.6 mL/min (90-130); Glucose 113 mg/dL (65-115); Osmolality Calculated 248 mOsm/kg (285-295); Potassium 4.7 mmol/L (3.5-5.1)
[2020-06-13 23:33] LABS: Sodium 118 mmol/L (136-145)
[2020-06-14] VITALS (21 sets, daily range): BP systolic 99–144; BP diastolic 58–89; PULSE 60–88; RESP 10–23; TEMP 36.4–36.9; O2SAT 96–100
[2020-06-14] MEDS: heparin 5,000 unit/mL INJ 1 mL 5000 UNIT SUBCUT ×3 (01:56→17:44)
[2020-06-14] MEDS: dilTIAZem 60 mg Tablet 120 MG PO ×3 (01:56→17:42)
--- NOTE | 2020-06-14 02:47 | PC.NURSE ---
DRAIN SITE Patient's abdominal drain site is draining large amounts of fluid and saturating through dressings and bed linens. This nurse applied ostomy bag to site to collect fluid.
[2020-06-14 03:36] LABS: Basophils # 0.1 10^3/uL (0.0-0.1); Basophils % 0.8 %; Eosinophils # 0.2 10^3/uL (0.0-0.8); Eosinophils % 1.8 %; Hematocrit 34.9 % (42.0-52.0); Hemoglobin 12.6 g/dL (11.7-16.6); Lymphocytes # 0.8 10^3/uL (0.8-4.8); Lymphocytes % 8.5 %; Mean Corpuscular HGB Conc 36.1 g/dL (30.0-36.0); Mean Corpuscular Volume 99.7 fL (80-94); Mean Platelet Volume 10.3 fL (7.4-10.4); Monocytes # 1.3 10^3/uL (0.2-0.9); Monocytes % 12.7 %; Neutrophils # 7.51 10^3/uL (1.8-7.7); Neutrophils % 75.5 %; Nucleated Red Blood Cells % 0 %; Platelet Count 164 10^3/cmm (130-400); Red Cell Distribution Width 12.8 % (12.1-15.1); White Blood Count 9.9 10^3/uL (4.0-10.0)
[2020-06-14 03:58] LABS: Alanine Aminotransferase 38 U/L (0-41); Albumin Level 3.2 g/dL (3.5-5.2); Alkaline Phosphatase 125 IU/L (40-130); Anion Gap 13.1 (5-19); Aspartate Amino Transferase 44 U/L (0-40); Blood Urea Nitrogen 17 mg/dL (6-20); Calcium 8.7 mg/dL (8.5-10.5); Carbon Dioxide 25 mmol/L (22-29); Chloride 84 mmol/L (98-107); Globulin 2.8 g/dL (1.3-4.6); Glomerular Filtration Rate 62.6 mL/min (90-130); Glucose 116 mg/dL (65-115); Osmolality Calculated 249 mOsm/kg (285-295); Potassium 4.1 mmol/L (3.5-5.1); Total Bilirubin 1.8 mg/dL (0.15-1.2)
[2020-06-14 04:07] LABS: Sodium 118 mmol/L (136-145)
--- NOTE | 2020-06-14 05:51 | PC.NURSE ---
DRAIN SITE Emptied 600 mL out of ostomy bag covering drain site for PM shift 06/13/20. This was charted under other on output for I/O flow sheet.
[2020-06-14] MEDS: thiamine 100 mg Tablet PO (08:19)
[2020-06-14] MEDS: levothyroxine 25 mcg Tablet PO (08:19)
[2020-06-14] MEDS: pantoprazole DR 40 mg Tablet PO (08:20)
[2020-06-14] MEDS: FUROsemide 40 mg Tablet PO ×2 (08:20→17:42)
[2020-06-14] MEDS: lactulose oral liq 20 gm/30 mL UDC PO ×2 (11:52→17:46)
[2020-06-14] MEDS: acetaminophen 325 mg Tablet 650 MG PO (13:44)
[2020-06-14 14:02] LABS: Anion Gap 15.1 (5-19); Blood Urea Nitrogen 17 mg/dL (6-20); Carbon Dioxide 23 mmol/L (22-29); Chloride 85 mmol/L (98-107); Glomerular Filtration Rate 57.1 mL/min (90-130); Glucose 119 mg/dL (65-115); Osmolality Calculated 251 mOsm/kg (285-295); Potassium 4.1 mmol/L (3.5-5.1)
--- NOTE | 2020-06-14 14:19 | P.PN_ITS ---
Subjective Subjective: Interval history: Zhou reports no significant symptoms overnight. No nausea. Denies any dizziness currently. Medications: Reviewed: Yes Vitals/I&O/Wt Last Vital Signs Temp 98.2 F 06/14/20 10:00 Pulse 88 06/14/20 12:00 Resp 17 06/14/20 12:00 BP 133/76 06/14/20 12:00 Pulse Ox 98 06/14/20 12:00 06/13/20 06/14/20 06/14/20 22:59 06:59 14:59 Intake Total 240 / 240 290 / 290 Output Total 750 / 750 875 / 1625 700 / 700 Balance -750 / -750 -635 / -1385 -410 / -410 Weight last 48 hrs Weight 120.4 kg Weight 119.295 kg Physical Exam Narrative: EXAM NARRATIVE: General exam no apparent distress Cardiovascular regular rate and rhythm without murmur Lungs clear no wheezing or crackles Abdomen is soft. No tenderness. Positive bowel sounds. Enlarged liver and spleen palpable. Probable mild ascites with fluid wave. Extremities no cyanosis clubbing or edema Data : 06/14/20 03:15 06/14/20 13:15 A&P Assessment and plan (1) Acute hyponatremia: Awaiting repeat sodium this afternoon. I visited with him earlier this morning as well. If sodium is slightly better we will transfer out of ICU Continue oral Lasix Continue fluid restriction Status: Acute (2) End-stage liver disease: Continue close monitoring of liver function Status: Chronic (3) ETOH abuse: Discussed with him to avoid all alcohol Monitor for withdrawal Thiamine daily Status: Chronic Additional A&P Information History of atrial fibrillation. Continue diltiazem. 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 History of hepatic encephalopathy. Continue lactulose History of hypothyroidism History of peripheral vascular disease Full code Heparin for DVT prophylaxis. Attestations Medical Necessity Statement*: Needs continued hospitalization for close monitoring secondary to significant severe hyponatremia Coding Level of Care Code Acute Casualty Claims Supervisor for Chg Fwd Diagnoses Acute hyponatremia E87.1 End-stage liver disease K72.90 ETOH abuse F10.10
[2020-06-14 14:22] LABS: Sodium 119 mmol/L (136-145)
[2020-06-15] VITALS (8 sets, daily range): BP systolic 101–123; BP diastolic 61–81; PULSE 67–103; RESP 16–20; TEMP 36.5–37; O2SAT 96–99
[2020-06-15] MEDS: lactulose oral liq 20 gm/30 mL UDC PO ×5 (00:13→23:59)
[2020-06-15] MEDS: heparin 5,000 unit/mL INJ 1 mL 5000 UNIT SUBCUT ×3 (00:13→18:28)
[2020-06-15] MEDS: dilTIAZem 60 mg Tablet 120 MG PO ×3 (00:14→18:27)
[2020-06-15 05:41] LABS: Alanine Aminotransferase 43 U/L (0-41); Albumin Level 3.4 g/dL (3.5-5.2); Alkaline Phosphatase 131 IU/L (40-130); Anion Gap 14.1 (5-19); Aspartate Amino Transferase 50 U/L (0-40); Blood Urea Nitrogen 20 mg/dL (6-20); Calcium 8.7 mg/dL (8.5-10.5); Carbon Dioxide 26 mmol/L (22-29); Chloride 86 mmol/L (98-107); Glomerular Filtration Rate 52.4 mL/min (90-130); Glucose 97 mg/dL (65-115); Osmolality Calculated 257 mOsm/kg (285-295); Potassium 4.1 mmol/L (3.5-5.1); Sodium 122 mmol/L (136-145); Total Protein 6.4 g/dL (6.6-8.7)
[2020-06-15] MEDS: FUROsemide 40 mg Tablet PO ×2 (08:55→18:27)
[2020-06-15] MEDS: levothyroxine 25 mcg Tablet PO (08:56)
[2020-06-15] MEDS: pantoprazole DR 40 mg Tablet PO (08:56)
[2020-06-15] MEDS: thiamine 100 mg Tablet PO (08:56)
--- NOTE | 2020-06-15 16:16 | PM.PN ---
Subjective Subjective: Interval history: Panchito reports he is feeling okay today. No specific symptoms. No dizziness. Trying to stick with his fluid restriction. Medications: Reviewed: Yes Vitals/I&O/Wt Last Vital Signs Temp 98.6 F 06/15/20 15:28 Pulse 78 06/15/20 15:28 Resp 16 06/15/20 15:28 BP 105/66 06/15/20 15:28 Pulse Ox 99 06/15/20 15:28 06/15/20 06/15/20 06/15/20 06:59 14:59 22:59 Intake Total 480 / 480 Output Total 350 / 1500 Balance -350 / -923 480 / 480 Weight last 48 hrs Weight 120.202 kg Weight 120.4 kg Physical Exam Narrative: EXAM NARRATIVE: General exam no apparent distress Cardiovascular regular rate and rhythm without murmur Lungs clear no wheezing or crackles Abdomen is soft. No tenderness. Positive bowel sounds. Enlarged liver and spleen palpable. Probable mild ascites with fluid wave. Extremities no cyanosis clubbing or edema Data : 06/14/20 03:15 06/15/20 04:43 A&P Assessment and plan (1) Acute hyponatremia: Sodium is slowly improving Continue oral Lasix Continue fluid restriction If sodium continues to improve we will discharge tomorrow He will need to continue to follow fluid restriction at home. Status: Acute (2) End-stage liver disease: Continue close monitoring of liver function Status: Chronic (3) ETOH abuse: Discussed with him to avoid all alcohol Monitor for withdrawal Thiamine daily Status: Chronic Additional A&P Information History of atrial fibrillation. Continue diltiazem. He is taking 120 mg every 8 hours per his shift superintendent. History of hepatic encephalopathy. Continue lactulose History of hypothyroidism History of peripheral vascular disease Full code Heparin for DVT prophylaxis. Attestations Medical Necessity Statement*: Needs continued hospitalization for close follow-up of his hyponatremia Coding Level of Care Code Acute Associate Justice for Chg Fwd Diagnoses Acute hyponatremia E87.1 End-stage liver disease K72.90 ETOH abuse F10.10
[2020-06-15 16:57] LABS: Blood Urea Nitrogen 19 mg/dL (6-20); Calcium 8.3 mg/dL (8.5-10.5); Carbon Dioxide 24 mmol/L (22-29); Chloride 89 mmol/L (98-107); Glomerular Filtration Rate 69.2 mL/min (90-130); Glucose 102 mg/dL (65-115); Osmolality Calculated 258 mOsm/kg (285-295); Sodium 123 mmol/L (136-145)
[2020-06-15 17:05] LABS: Anion Gap 13.9 (5-19); Potassium 3.9 mmol/L (3.5-5.1)
[2020-06-16] VITALS (7 sets, daily range): BP systolic 101–127; BP diastolic 55–79; PULSE 79–95; RESP 18–20; TEMP 36.5–37; O2SAT 95–100
[2020-06-16] MEDS: dilTIAZem 60 mg Tablet 120 MG PO ×3 (00:01→17:48)
[2020-06-16 05:29] LABS: Alanine Aminotransferase 32 U/L (0-41); Albumin Level 2.8 g/dL (3.5-5.2); Alkaline Phosphatase 129 IU/L (40-130); Anion Gap 13.8 (5-19); Aspartate Amino Transferase 44 U/L (0-40); Blood Urea Nitrogen 19 mg/dL (6-20); Calcium 8.6 mg/dL (8.5-10.5); Carbon Dioxide 22 mmol/L (22-29); Chloride 89 mmol/L (98-107); Globulin 2.6 g/dL (1.3-4.6); Glomerular Filtration Rate 41.9 mL/min (90-130); Glucose 122 mg/dL (65-115); Osmolality Calculated 256 mOsm/kg (285-295); Potassium 3.8 mmol/L (3.5-5.1); Sodium 121 mmol/L (136-145); Total Bilirubin 1.3 mg/dL (0.15-1.2); Total Protein 5.4 g/dL (6.6-8.7)
[2020-06-16] MEDS: lactulose oral liq 20 gm/30 mL UDC PO ×3 (05:54→17:47)
[2020-06-16 07:15] LABS: Cortisol Random 6.84 ug/mL (2.47-19.5)
[2020-06-16 07:16] LABS: Thyroid Stimulating Hormone 4.78 uIU/mL (0.27-4.20)
[2020-06-16] MEDS: levothyroxine 25 mcg Tablet PO (09:19)
[2020-06-16] MEDS: pantoprazole DR 40 mg Tablet PO (09:19)
[2020-06-16] MEDS: FUROsemide 40 mg Tablet PO (09:20)
[2020-06-16] MEDS: thiamine 100 mg Tablet PO (09:20)
[2020-06-16] MEDS: heparin 5,000 unit/mL INJ 1 mL 5000 UNIT SUBCUT ×3 (09:20→17:48)
[2020-06-16] MEDS: acetaminophen 325 mg Tablet 650 MG PO (11:03)
[2020-06-16 12:21] LABS: Bilirubin Urine Neg (Negative); Blood Urine Neg (Negative); Glucose Urine UA Norm (Normal); Ketones Urine Negative (Negative); Leukocyte Esterase Urine Negative (Negative); Nitrate Urine Negative (Negative); Protein Urine Neg (Negative); Specific Gravity, Urine 1.015 (1.005-1.030); Urine Appearance Clear (CLEAR); Urine Color Yellow (Yellow); Urobilinogen Urine Neg (Negative); pH Urine 5 (5-7)
[2020-06-16 12:30] LABS: Add Urine Culture? No; Bacteria Urine TRACE /hpf; Squamous Epithelial Cell Urine 0-4 /hpf (0-5); WBC Urine 0-4 /hpf (0-5)
[2020-06-16 13:36] LABS: Anion Gap 13.8 (5-19); Blood Urea Nitrogen 19 mg/dL (6-20); Calcium 8.6 mg/dL (8.5-10.5); Carbon Dioxide 23 mmol/L (22-29); Chloride 88 mmol/L (98-107); Glomerular Filtration Rate 62.6 mL/min (90-130); Glucose 120 mg/dL (65-115); Osmolality Calculated 255 mOsm/kg (285-295); Potassium 3.8 mmol/L (3.5-5.1); Sodium 121 mmol/L (136-145)
--- NOTE | 2020-06-16 14:47 | P.PN_ITS ---
Subjective Subjective: Interval history: Panchito is feeling okay. No concerns. Medications: Reviewed: Yes Vitals/I&O/Wt Last Vital Signs Temp 97.7 F 06/16/20 11:37 Pulse 84 06/16/20 11:37 Resp 20 H 06/16/20 11:37 BP 107/71 06/16/20 11:37 Pulse Ox 98 06/16/20 11:37 06/15/20 06/16/20 06/16/20 22:59 06:59 14:59 Intake Total 240 / 720 716 / 716 Output Total 560 / 560 200 / 200 Balance 240 / 720 -560 / 160 516 / 516 Weight last 48 hrs Weight 122.697 kg Weight 120.202 kg Physical Exam Narrative: EXAM NARRATIVE: General exam no apparent distress Cardiovascular regular rate and rhythm without murmur Lungs clear no wheezing or crackles Abdomen is soft. No tenderness. Positive bowel sounds. Enlarged liver and spleen palpable. Probable mild ascites with fluid wave. Peritoneal leak he had, right abdomen has stopped Extremities no cyanosis clubbing or edema Data : 06/14/20 03:15 06/16/20 13:10 A&P Assessment and plan (1) Acute hyponatremia: Sodium decreased slightly from yesterday. Hold p.o. Lasix this afternoon Lasix 40 mg IV now Continue fluid restriction BMP in the morning, potential discharge Status: Acute (2) End-stage liver disease: Continue close monitoring of liver function Status: Chronic (3) ETOH abuse: Discussed with him to avoid all alcohol Monitor for withdrawal Thiamine daily Status: Chronic Additional A&P Information History of atrial fibrillation. Continue diltiazem. He is taking 120 mg every 8 hours per his marine plumber. History of hepatic encephalopathy. Continue lactulose History of hypothyroidism History of peripheral vascular disease Full code Heparin for DVT prophylaxis. Attestations Medical Necessity Statement*: Needs continued hospitalization for moderate hyponatremia Coding Level of Care Code Acute Senior Maintenance Technician for Tay Fwbrenda Diagnoses Acute hyponatremia E87.1 End-stage liver disease K72.90 ETOH abuse F10.10
[2020-06-16] MEDS: FUROsemide 10 mg/mL SDV 4mL 40 MG IVP (15:14)
--- NOTE | 2020-06-16 18:36 | PC.NURSE ---
Pt has had 960 fluids in this shift, pt has had complained of pain in hips and legs rating 6/10, prn tylenol was given which brought pain down to a 3-4/10 per pt. pt has had no other complaints of pain or discomfort this shift.
[2020-06-17] VITALS: BP 112/71; PULSE 80; RESP 20; TEMP 37; O2SAT 99
[2020-06-17] MEDS: dilTIAZem 60 mg Tablet 120 MG PO ×2 (00:21→08:44)
[2020-06-17] MEDS: heparin 5,000 unit/mL INJ 1 mL 5000 UNIT SUBCUT ×2 (00:21→08:43)
[2020-06-17] MEDS: lactulose oral liq 20 gm/30 mL UDC PO ×3 (00:21→11:32)
[2020-06-17 04:00] VITALS: BP 120/69; PULSE 74; RESP 18; TEMP 37.2; O2SAT 96
[2020-06-17] MEDS: ondansetron 2 mg/ML SDV 2 mL 4 MG IVP (05:15)
[2020-06-17 05:40] LABS: Anion Gap 11.2 (5-19); Blood Urea Nitrogen 20 mg/dL (6-20); Calcium 8.2 mg/dL (8.5-10.5); Carbon Dioxide 23 mmol/L (22-29); Chloride 93 mmol/L (98-107); Creatinine Clr Calc Pharmacy 102.8987; Glomerular Filtration Rate 69.2 mL/min (90-130); Glucose 105 mg/dL (65-115); Osmolality Calculated 259 mOsm/kg (285-295); Potassium 4.2 mmol/L (3.5-5.1); Sodium 123 mmol/L (136-145)
[2020-06-17 08:00] VITALS: BP 116/70; PULSE 84; RESP 18; TEMP 37; O2SAT 97
[2020-06-17] MEDS: pantoprazole DR 40 mg Tablet PO (08:44)
[2020-06-17] MEDS: levothyroxine 25 mcg Tablet PO (08:44)
[2020-06-17] MEDS: thiamine 100 mg Tablet PO (08:44)
--- NOTE | 2020-06-17 10:46 | PM.DCS ---
Discharge Providers Date of Admission: 06/13/20 14:40 Date of Discharge: June 17, 2020 Attending Provider at Admission: Warren Weir MD Attending Provider at Discharge: Warren Weir MD Primary Care Provider: Yosvany Segovia MD Diagnoses at Discharge Discharge Diagnosis (1) Acute hyponatremia: Status: Acute Problem details: Improved, 123 on discharge. (2) End-stage liver disease: Status: Chronic (3) ETOH abuse: Status: Chronic Reason for Visit Reason for Visit: LOW SODIUM Hospital Course Hospital Course: Panchito presented to the hospital with severe hyponatremia, checked by his physician's office. He was not following any fluid restriction. He was not taking his Aldactone. He reported he occasionally would miss his Lasix dose. He was still drinking alcohol. While in the hospital he was placed on fluid restriction. He was given his Lasix. Sodium slowly climbed. At the end of hospitalization and seem to stagnate and drop back, therefore an IV dose of Lasix was given and oral Lasix was increased. At discharge I discussed with him multiple times regarding fluid restriction and the importance thereof. I did not restart his Aldactone as he does not seem to want to take it. He did not have recurrence of significant ascites while he was inpatient. He had no evidence of alcohol withdrawal. I believe if he is compliant with treatment he will not need a peritoneal tube for draining of ascites, and his sodium will continue to increase. The plan is to recheck his electrolytes in approximately 3 days. Lasix was increased to 60 mg twice a day Physical Exam Narrative: EXAM NARRATIVE: General exam no apparent distress Cardiovascular regular rate and rhythm without murmur Lungs clear Abdomen is soft, positive bowel sounds, no real significant ascites today. Extremities no cyanosis clubbing or edema Discharge Data Data Completed and Pending: Labs from last 24 hours 06/17/20 06/16/20 06/16/20 04:35 13:10 11:55 Sodium 123 L 121 L Potassium 4.2 3.8 Chloride 93 L 88 L Carbon Dioxide 23 23 Anion Gap 11.2 13.8 BUN 20 19 Creatinine 1.1 1.2 GFR Calculation 69.2 L 62.6 L Glucose 105 120 H Calculated Osmolal ity 259 L 255 L Calcium 8.2 L 8.6 Urine Color Yellow Urine Appearance Clear Urine pH 5 Ur Specific Gravit y 1.015 Urine Protein Neg Urine Glucose (UA) Norm Urine Ketones Negative Urine Blood Neg Urine Nitrate Negative Urine Bilirubin Neg Urine Urobilinogen Neg Ur Leukocyte Kristy ase Negative Urine RBC None Urine WBC 0-4 H Ur Squamous Epith Cells 0-4 H Amorphous Sediment Not Reportable Urine Bacteria Trace Vitals: Last Vital Signs Temp 98.6 F 06/17/20 08:00 Pulse 84 06/17/20 08:00 Resp 18 06/17/20 08:00 BP 116/70 06/17/20 08:00 Pulse Ox 97 06/17/20 08:00 Discharge Plan Discharge Patient Disposition: Home Condition: Stable Prescriptions: New furosemide [Lasix] 40 mg tablet 60 mg PO BID Qty: 90 RF: 0 Continued vitamin E (dl, acetate) 400 unit capsule 400 unit PO BID RF: 0 pentoxifylline 400 mg tablet extended release 400 mg PO TID RF: 0 sildenafil 100 mg tablet 100 mg PO DAILY PRN (Reason: OTHER) RF: 0 potassium chloride [Klor-Con M20] 20 mEq tablet,ER particles/crystals 20 meq PO DAILY RF: 0 ferrous sulfate 325 mg (65 mg iron) tablet 325 mg PO DAILY RF: 0 folic acid 400 mcg tablet 0.4 mg PO DAILY RF: 0 pantoprazole 40 mg tablet,delayed release (DR/EC) 40 mg PO DAILY RF: 0 vitamin B complex [B Complex-Vitamin B12] Tablet 1 tab PO DAILY RF: 0 thiamine HCl (vitamin B1) 500 mg tablet 500 mg PO DAILY RF: 0 tadalafil 20 mg tablet 20 mg PO DAILY PRN (Reason: sexual activity) Qty: 20 RF: 12 tramadol 50 mg Tablet 50 mg PO BID PRN (Reason: Pain) RF: 0 levothyroxine 25 mcg tablet 25 mcg PO DAILY RF: 0 thiamine mononitrate (vit B1) [Vitamin B-1 (mononitrate)] 100 mg Tablet 100 mg PO DAILY Qty: 0 RF: 0 lactulose 20 gram/30 mL Solution 20 g PO Q6H 30 Days Qty: 3600 RF: 0 Changed diltiazem HCl 120 mg tablet 120 mg PO Q8H Qty: 0 RF: 0 Discontinued meloxicam 7.5 mg tablet 7.5 mg PO DAILY RF: 0 furosemide [Lasix] 40 mg tablet 40 mg PO BID Qty: 0 RF: 0 spironolactone 100 mg tablet 100 mg PO DAILY RF: 0 Referrals: Roylance,Yosvany F, MD [Primary Care Provider] - 1-3 days Discharge Diet: Cardiac Discharge Activity: Increase activity as tolerated Activity Restrictions/Additional Instructions: Follow-up with primary care provider by Friday with a BMP Fluid restriction 1200 cc max Take Lasix 60 mg twice daily Discharge Attestations Time Spent in Discharge Care*: greater than 30 min Quality Metrics Clinical Quality Measures During this hospital stay, did patient experience: None Coding Level of Care Code Acute Multiple Resaw Operator for Tay Fwd Diagnoses Acute hyponatremia E87.1 End-stage liver disease K72.90 ETOH abuse F10.10
[2020-06-17 11:05] VITALS: BP 116/70; PULSE 84; RESP 18; TEMP 37; O2SAT 97
[2020-06-17] MEDS: FUROsemide 40 mg Tablet 60 MG PO (11:36)
--- NOTE | 2020-06-17 11:48 | PC.NURSE ---
Discharge instructions provided and paperwork signed. Discussed medication changes in detail, as well as follow-up appointment. All questions answered. IV removed. Belongings placed in bags. Pt to be transported via wheelchair to hospital entrance, where his ride is waiting. No s/s distress; pt denied any further questions or concerns at this time.
== END 2020-06-17 12:15 | disposition home or self-care (01) | DRG 641 ==
LOC: ER 14:31 → ICU 15:07 → MEDSURG 06-14 16:32
PROVIDERS: Emergency Medicine; Admitting Provider Internal Medicine; PCP Family Medicine; Visit Provider Internal Medicine
DX: E87.1 Hypo-osmolality and hyponatremia (principal); K72.90 Hepatic failure, unspecified without coma; F10.10 Alcohol abuse, uncomplicated; I48.91 Unspecified atrial fibrillation; N52.9 Male erectile dysfunction, unspecified; I73.9 Peripheral vascular disease, unspecified; G62.9 Polyneuropathy, unspecified; F17.210 Nicotine dependence, cigarettes, uncomplicated; E03.9 Hypothyroidism, unspecified
CPT/HCPCS: 12345; 36415; 80048; 80053; 81001; 82436; 82533; 84133; 84300; 84443; 85025; 96372; 96375; 99281; J1644; J1940; J2270; J2405

== ENCOUNTER → 2020-06-30 13:32 | Outpatient (BNVA) | payer BC, SELFPAY | PROVIDERS: PCP Family Medicine; Visit Provider Surgery | DX: Z11.59 Encounter for screening for other viral diseases (principal) | CPT/HCPCS: 87635 ==

== ENCOUNTER 2020-07-05 06:24 | Day surgery (SDC) | payer BC, SELFPAY ==
[2020-07-04 13:44] VITALS: BMI 35.6
[2020-07-05 06:44] VITALS: BP 115/84; PULSE 106; RESP 18; TEMP 36.9; O2SAT 98
--- NOTE | 2020-07-05 06:54 | W.PM.OPSUD ---
Surgery/Procedure H&P Update DATE OF PROCEDURE: July 05, 2020 DATE H&P PERFORMED: 06/30/20 H&P UPDATE INFORMATION: I have reviewed H&P completed within last 30 days, I have examined patient prior to procedure and No changes to prior documentation PREOP DIAGNOSIS: Ascites PLANNED PROCEDURE: Operation Date: 07/05/20 08:05 Proposed Procedures p Peritoneal Catheter Insertion [id number] R18.8(Not Applicable) - Keith Brown MD
--- NOTE | 2020-07-05 07:04 | ANES.PREANE2 ---
Pre-Anesthetic Assessment Pre-Anesthetic Assessment: Height/Weight: Height 1.85 m Weight 122.47 kg Temp Pulse Resp BP Pulse Ox 98.4 F 106 H 18 115/84 98 07/05/20 06:44 07/05/20 06:44 07/05/20 06:44 07/05/20 06:44 07/05/20 06:44 Preop Diagnosis: Ascites Proposed Procedure: Operation Date: 07/05/20 08:05 Proposed Procedures p Peritoneal Catheter Insertion [id number] R18.8(Not Applicable) - Keith Brown MD Familial anesthetic complications: None Was Beta Rosana taken within 24 hours: N/A Last intake: Intake Last Liquid Date 07/04/20 Last Liquid Time 23:00 Last Solid Date 07/04/20 Last Solid Time 20:00 Social: Social History: Alcohol (past etoh abuse (cirrhosis)) and Tobacco Exam: Pre-Anes Outpt Exam: alert, oriented x 3 and clear to auscultation bilaterally Additional Exam Findings (including area of procedure): a fib Airway: Cervical ROM: WNL MP: 2 Dentition: Chipped Additional comments: large neck circumference CV/HEM: CV/HEM: Afib, HTN and PVD Hepatic: Hepatic: Cirrohsis GI: Comments: esophageal varices Metabolic: Metabolic: Morbid obesity and Thyroid Neuropsych: Neuropsych: Neuropathy and Seizure (d/t etoh withdrawal) Anesthetic Plan: ASA status: 4 Anesthesia: General Risk of > 500 ml blood loss (7ml/kg in children): No PFSH Anesthesia PFSH: Medical History Atrial fibrillation with RVR Charcot's arthropathy End-stage liver disease Erectile dysfunction History of abdominal paracentesis Hx of esophageal varices Neuropathy Peyronie disease PVD (peripheral vascular disease) Surgical History H/O colonoscopy 10-12 yrs H/O esophagogastroduodenoscopy History of tonsillectomy Hx of umbilical hernia repair Hx of vasectomy Status post surgery (05/24/20) peritoneal catheter for ascites Family History Grandfather CAD (coronary artery disease) Grandmother CAD (coronary artery disease) Cancer Father Cancer Denies family history of Anesthesia complication Bleeding disorder Social History Smoking and tobacco status: light tobacco smoker Alcohol intake: current Alcohol intake frequency: 0-2 Drinks per Day Alcohol type: beer Adopted: No Caregiver/support person: No Lives independently: No Marital status: Current occupational status: employed History of recent travel: No Current gender identity: Male Data Anesthesia Cardiac Studies: No Data to Display
[2020-07-05] MEDS: sodium chloride 0.9% 1,000 ML 30 ML IV (07:08)
[2020-07-05] MEDS: vancomycin 1,000 MG in sodium chloride 0.9% 250 ML 250 MG IV (07:33)
--- NOTE | 2020-07-05 08:17 | P.OP_ITS ---
Operative Report Date of procedure: July 05, 2020 Pre-op Diagnosis: Ascites secondary to end-stage liver disease Post-op diagnosis: same Procedure Done: Placement of peritoneal catheter for ascites Ultrasound guidance and interpretation for placement of catheter in the peritoneal cavity Surgeon: Keith Brown Condition: stable Procedure: The patient was taken to the operating room and placed under MAC after IV antibiotic had been administered. The abdomen was prepped and draped in a sterile manner. Under ultrasound guidance an introducer needle was used to access the peritoneal cavity with drainage of ascites fluid in the right lower quadrant. A guidewire was passed through the introducer needle and the introducer needle was removed. The skin incision was extended using 11 blade and a dilator sheath was passed over the guidewire and inner dilator and the guidewire was removed. A peritoneal catheter was introduced as a dilator peel- away sheath was removed. The proximal end of the catheter was attached to a tunneler and a subcutaneous tunnel was created to exit the catheter site about 5 cm from the entry site into the peritoneal cavity. Subcutaneous tissues were approximated using 3-0 Vicryl suture and skin incision was closed with 4-0 Monocryl and surgical glue. The catheter exit site was closed with a pursestrin g 3-0 Prolene suture. The patient was transferred to recovery room in stable condition.
[2020-07-05 08:25] VITALS: BP 109/68; PULSE 95; RESP 18; TEMP 36.3; O2SAT 98
[2020-07-05 08:33] VITALS: BP 118/75; PULSE 83; RESP 18; TEMP 36.5; O2SAT 98
[2020-07-05 09:09] VITALS: BP 115/67; PULSE 82; RESP 18; TEMP 36.5; O2SAT 97
--- NOTE | 2020-07-05 09:55 | ANE.PACU2 ---
Inpatient post-anesthesia follow up: Airway intact: Yes Vital signs: Temperature 97.7 F Pulse Rate 82 Respiratory Rate 18 Blood Pressure 115/67 Pulse Oximetry 97 Oxygen Delivery Me thod Room Air Oxygen Flow Rate Fraction of Inspir ed Oxygen Hydration adequate: Yes Nausea and vomiting: No Pain level: 1 Mental status: Baseline
== END 2020-07-05 09:58 | disposition home or self-care (01) ==
PROVIDERS: PCP Family Medicine; Visit Provider Surgery
PROC: (CPT 49421; principal; 2020-07-05 08:05)
DX: N18.6 End stage renal disease (principal); R18.8 Other ascites; I48.91 Unspecified atrial fibrillation; I10 Essential (primary) hypertension; E66.01 Morbid (severe) obesity due to excess calories; Z68.35 Body mass index [BMI] 35.0-35.9, adult; F17.210 Nicotine dependence, cigarettes, uncomplicated
CPT/HCPCS: 49421; 12345; 96365; C1750; J2250; J2704; J3010; J3370; J3490; J7030; J7050

== ENCOUNTER → 2020-07-13 10:28 | Outpatient (BNVA) | payer BC, SELFPAY | PROVIDERS: PCP Family Medicine; Visit Provider Podiatrist Foot & Ankle Surgery | DX: M79.673 Pain in unspecified foot (principal) | CPT/HCPCS: 73630 ==

== ENCOUNTER 2020-07-13 11:13 | Outpatient (CLI) | payer BC, SELFPAY | END 2020-07-13 11:14 | disposition home or self-care (01) | LOC: SPT 11:14 | PROVIDERS: PCP Family Medicine; Visit Provider Podiatrist Foot & Ankle Surgery | DX: Z46.89 Encounter for fitting and adjustment of other specified devices (principal); M14.679 Charcot's joint, unspecified ankle and foot | CPT/HCPCS: 97760; L4361 ==

== ENCOUNTER 2020-08-04 14:17 | Emergency (ER) | payer BC, SELFPAY ==
[2020-08-04 14:22] VITALS: BP 107/70; PULSE 84; RESP 24; TEMP 36.9; O2SAT 97; BMI 34.9
--- NOTE | 2020-08-04 14:25 | ECG_ITS ---
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 Measurements Intervals [place] Rate: 70 P: [place]: QRS: 49 QRSD: 81 T: 51 QT: 379 QTc: 410 Interpretive Statements ATRIAL FIBRILLATION LOW QRS VOLTAGE IN PRECORDIAL LEADS [QRS DEFLECTION < 1.0 mV IN CHEST LEADS] SEPTAL MYOCARDIAL INFARCTION [40+ ms Q WAVE IN V1/V2], PROBABLY OLD Compared to ECG 05/30/2020 14:26:27 No significant changes Electronically Signed On 08-04-2020 19:47:25 ENGINEERING SYSTEMS ANALYST by Binta Pitt M.D. [email or web address] [email or web address] medical [email or web address] Masterour lady of mercy hospital.[id number]
--- NOTE | 2020-08-04 15:13 | XR_ITS ---
WS: [id number] Exam: XR chest 1V portable [id number] Date/Time of Exam: 08/04/2020 3:13 PM Reason For Exam: dyspnea/cough Comparison 05/30/2020. There is consolidation and atelectasis in the left lower lobe. Small left pleural effusion is noted. Heart size is normal. The right lung is clear and fully expanded. The mediastinum is not widened. Thi ckening and probably fluid in the left major fissure. Old fracture of the posterior right eighth rib. XR/XR chest 1V portable [id number] IMPRESSION: 1. Left lower lobe atelectasis and probable infiltrate. Small left pleural effu tomi.
[2020-08-04 15:52] LABS: ABG PCO2 38.5 mmHg (35-45); ABG PH Result 7.43 (7.35-7.45); Alveolar-Arterial Oxygen Gradi 2.3 mmHg (5-10); Arterial Blood Gas Hematocrit 37.9 % (42-52); Base Excess ABG 0.9 mmol/L (-2.0-2.0); Blood Gas Allen Test Pos; Blood Gas Operator Identificat CAK; Blood Gas Sample Site Brachial, left; Blood Gas Sample Type Arterial; Carboxyhemoglobin 1.8 %THgb (0.4-20.1); HCO3 ABG 25.3 mmol/L (22-26); HGB O2 Sat 94.4 % (95-100); Ionized Calcium Level - ABG 1.1 mmol/L (1.1-1.4); Methemoglobin 0.6 % (0.4-1.5); Oxygen Device ROOM AIR; Oxygen Saturation ABG 96.8; Potassium Level - ABG 4.6 mmol/L (3.5-5.0); Total Hemoglobin 12.4 g/dL (14-18)
[2020-08-04 16:33] VITALS: BP 106/78; PULSE 76; RESP 18; O2SAT 97
--- NOTE | 2020-08-04 16:38 | W.ED.SOB ---
HPI - SOB/Dyspnea General: Chief Complaint: Shortness of Breath/Dyspnea Stated Complaint: SOB Time Seen by Provider: 08/04/20 15:11 History of Present Illness: HPI Narrative: 55-year-old male presents emergency room complaining of shortness of breath. Has been increasing for the last 4 days. Denies fever sweats chills myalgias. Is not had any diarrhea. He has had this intermittently in the past as well as quite a bit worse today he says than usual has not had any chest pain. He denies any GI or symptoms. MD elicited complaint: shortness of breath and cough Pertinent past history: other (Atrial fibrillation) Onset (ago): day(s) (4) Context: occurred during exertion Timing: intermittent Severity: moderate Exacerbating factors: exertion Relieving factors: rest Associated symptoms: Reports chest congestion; Deny abdominal pain, chest pain, cough, diaphoresis, dizziness, extremity pain, fever(s), hemoptysis, lightheadedness, myalgias, nausea, orthopnea, palpitations, paresthesias, polydipsia, polyuria, rash, sense of impending doom, syncope or vomiting Treatment prior to arrival: none Review of Systems Const: Denies: fever(s) or diaphoresis ENMT: Denies: throat pain, ear or mastoid pain, nasal discharge or nasal congestion Card: Denies: chest pain, palpitations, lightheadedness, syncope or orthopnea Resp: Reports: chest congestion; Denies: hemoptysis GI: Denies: abdominal pain, nausea or vomiting : Denies: flank pain, dysuria, urinary frequency or urinary urgency Musc: Denies: extremity pain Skin/Breast: Denies: rash or pruritus Endo: Denies: polyuria or polydipsia [facility] PFSH: Medical History (Updated 08/04/20 @ 17:13 by Ghassan Cedeno DO) Atrial fibrillation and flutter Atrial fibrillation with RVR Charcot's arthropathy End-stage liver disease Erectile dysfunction History of abdominal paracentesis Hx of esophageal varices Neuropathy Peyronie disease PVD (peripheral vascular disease) Surgical History H/O colonoscopy 10-12 yrs H/O esophagogastroduodenoscopy History of tonsillectomy Hx of umbilical hernia repair Hx of vasectomy Status post surgery (07/05/20) peritoneal catheter for ascites Family History Grandfather CAD (coronary artery disease) Grandmother CAD (coronary artery disease) Cancer Father Cancer Denies family history of Anesthesia complication Bleeding disorder Social History Smoking and tobacco status: light tobacco smoker Alcohol intake: current Alcohol intake frequency: 0-2 Drinks per Day Alcohol type: beer Adopted: No Caregiver/support person: No Lives independently: No Marital status: Current occupational status: employed History of recent travel: No Current gender identity: Male Physical Exam Const: COMMON NORMALS: no acute distress GENERAL APPEARANCE: cooperative and comfortable ORIENTATION/CONSCIOUSNESS: Yes awake, Yes oriented to person, Yes oriented to place and Yes oriented to time HENMT: COMMON NORMALS: normocephalic, atraumatic and hearing grossly normal bilaterally HEAD & SCALP: normocephalic and atraumatic Eye: COMMON NORMALS: Equal, round and reactive pupils present, EOMs intact bilaterally, conjunctivae normal and no scleral icterus CONJUNCTIVA: Yes conjunctivae normal PUPIL: Yes Equal, round and reactive pupils present Neck/C-Spine: COMMON NORMALS: full ROM, no lymphadenopathy, supple and no JVD Lymph: LYMPHATIC: no lymphadenopathy noted and no lymphedema noted Resp: COMMON NORMALS: normal respiratory effort, No retractions, No use of accessory muscles and clear to auscultation bilaterally AUSCULTATION: clear to auscultation bilaterally Cardio: COMMON NORMALS: no JVD, regular rate, regular rhythm and No murmurs present (Cardio) RATE: regular rate RHYTHM: regular rhythm GI: COMMON NORMALS: Soft to palpation and No hepatosplenomegaly present AUSCULTATION: Yes normoactive bowel sounds PALPATION: Yes Soft to palpation, No Tenderness to palpation present (GI), No Guarding due to palpation present (GI) and Yes No hepatosplenomegaly present Extremity: COMMON NORMALS: normal to inspection, capillary refill normal and no calf tenderness GENERAL: Yes edema (+1) Neuro: SENSORIUM/ORIENTATION: Yes oriented to person, Yes oriented to place and Yes oriented to time Skin: COMMON NORMALS: no rashes or lesions noted GENERAL SKIN EXAM: no rashes or lesions noted Course Vital Signs: Vital signs: Vital Signs Temperature 98.4 F 08/04/20 14:22 Pulse Rate 84 08/04/20 14:22 Respiratory Rate 24 H 08/04/20 14:22 Blood Pressure 107/70 08/04/20 14:22 Pulse Oximetry 97 08/04/20 14:22 MDM - SOB/Dyspnea MDM Narrative: Medical decision making narrative: This x-ray shows left lower lobe pneumonia we will treat with IV antibiotics here for an initial dose then start on oral antibiotics beginning tomorrow for 1 week. Discharge home with an albuterol inhaler if not improving return or follow-up with primary care next week. Lab Data: Labs: Lab Results 08/04/20 08/04/20 08/04/20 Range/Units 15:40 16:31 16:31 WBC 6.8 (4.0-10.0) 10^3/ uL RBC 3.18 L (4.1-5.3) 10^6/u L Hgb 11.9 (11.7-16.6) g/dL Hct 35.0 L (42.0-52.0) % MCV 110.1 H (80-94) fL MCH 37.4 H (28.0-34.0) pg MCHC 34.0 (30.0-36.0) g/dL RDW 14.0 (12.1-15.1) % Plt Count 136 (130-400) 10^3/c mm MPV 9.1 (7.4-10.4) fL Neut % (Auto) 68.1 % Lymph % (Auto) 14.8 % Hudspeth % (Auto) 11.7 % Eos % (Auto) 3.6 % Baso % (Auto) 1.2 % Neut # (Auto) 4.60 (1.8-7.7) 10^3/u L Lymph # (Auto) 1.0 (0.8-4.8) 10^3/u L [place]eth # (Auto) 0.8 (0.2-0.9) 10^3/u L Eos # (Auto) 0.2 (0.0-0.8) 10^3/u L Baso # (Auto) 0.1 (0.0-0.1) 10^3/u L Nucleated RBC % (a uto) 0 % Nucleated RBCs # 0.0 /100WBC Specimen Type Arterial Sample Site Brachial, left ABG pH 7.43 (7.35-7.45) ABG pCO2 38.5 (35-45) mmHg ABG pO2 85.0 (80.0-100.0) mmH g ABG HCO3 25.3 (22-26) mmol/L ABG O2 Saturation 96.8 ABG Base Excess 0.9 (-2.0-2.0) mmol/ L Marcelo Test Pos A-a O2 Gradient 2.3 L (5-10) mmHg Hematocrit 37.9 L (42-52) % Hgb O2 Saturation 94.4 L (95-100) % Carboxyhemoglobin 1.8 (0.4-20.1) %THgb Methemoglobin 0.6 (0.4-1.5) % Total Hemoglobin 12.4 L (14-18) g/dL Sodium 128.0 L 125 L (131-143) mmol/L Potassium 4.6 4.3 (3.5-5.0) mmol/L Glucose 98.0 104 (70-115) mg/dL Ionized Calcium 1.1 (1.1-1.4) mmol/L O2 Delivery Device Room air FiO2 21.0 % Engine Wiper ID Cak Chloride 93 L (98-107) mmol/L Carbon Dioxide 24 (22-29) mmol/L Anion Gap 12.3 (5-19) BUN 12 (6-20) mg/dL Creatinine 1.1 (0.7-1.2) mg/dL GFR Calculation 69.2 L (90-130) mL/min Calculated Osmolal ity 260 L (285-295) mOsm/k g Lactic Acid (0.5-2.2) mmol/L Calcium 8.0 L (8.5-10.5) mg/dL Total Bilirubin 1.1 (0.15-1.2) mg/dL AST 36 (0-40) U/L ALT 22 (0-41) U/L Alkaline Phosphata se 135 H (40-130) IU/L Creatine Kinase 65 (39-308) U/L Total Protein 5.6 L (6.6-8.7) g/dL Albumin 3.1 L (3.5-5.2) g/dL Globulin 2.5 (1.3-4.6) g/dL Lipase 19 (13-60) U/L SARS-CoV-2 Ag (Rap id) (Negative) 08/04/20 08/04/20 Range/Units 16:31 16:35 WBC (4.0-10.0) 10^3/ uL RBC (4.1-5.3) 10^6/u L Hgb (11.7-16.6) g/dL Hct (42.0-52.0) % MCV (80-94) fL MCH (28.0-34.0) pg MCHC (30.0-36.0) g/dL RDW (12.1-15.1) % Plt Count (130-400) 10^3/c mm MPV (7.4-10.4) fL Neut % (Auto) % Lymph % (Auto) % [place] % (Auto) % Eos % (Auto) % Baso % (Auto) % Neut # (Auto) (1.8-7.7) 10^3/u L Lymph # (Auto) (0.8-4.8) 10^3/u L [place]ud[place]eth # (Auto) (0.2-0.9) 10^3/u L Eos # (Auto) (0.0-0.8) 10^3/u L Baso # (Auto) (0.0-0.1) 10^3/u L Nucleated RBC % (a uto) % Nucleated RBCs # /100WBC Specimen Type Sample Site ABG pH (7.35-7.45) ABG pCO2 (35-45) mmHg ABG pO2 (80.0-100.0) mmH g ABG HCO3 (22-26) mmol/L ABG O2 Saturation ABG Base Excess (-2.0-2.0) mmol/ L Marcelo Test A-a O2 Gradient (5-10) mmHg Hematocrit (42-52) % Hgb O2 Saturation (95-100) % Carboxyhemoglobin (0.4-20.1) %THgb Methemoglobin (0.4-1.5) % Total Hemoglobin (14-18) g/dL Sodium (131-143) mmol/L Potassium (3.5-5.0) mmol/L Glucose (70-115) mg/dL Ionized Calcium (1.1-1.4) mmol/L O2 Delivery Device FiO2 % Engine Wiper ID Chloride (98-107) mmol/L Carbon Dioxide (22-29) mmol/L Anion Gap (5-19) BUN (6-20) mg/dL Creatinine (0.7-1.2) mg/dL GFR Calculation (90-130) mL/min Calculated Osmolal ity (285-295) mOsm/k g Lactic Acid 1.1 (0.5-2.2) mmol/L Calcium (8.5-10.5) mg/dL Total Bilirubin (0.15-1.2) mg/dL AST (0-40) U/L ALT (0-41) U/L Alkaline Phosphata se (40-130) IU/L Creatine Kinase (39-308) U/L Total Protein (6.6-8.7) g/dL Albumin (3.5-5.2) g/dL Globulin (1.3-4.6) g/dL Lipase (13-60) U/L SARS-CoV-2 Ag (Rap id) Negative (Negative) Discharge Plan Discharge Patient Disposition: Home Clinical Impression: Community acquired pneumonia Condition: Stable Prescriptions: New albuterol sulfate 90 mcg/actuation HFA aerosol inhaler 2 inh INHALATION Q4H PRN (Reason: shortness of breath or wheezing) Qty: 18 RF: 0 levofloxacin 750 mg tablet 750 mg PO DAILY 7 Days RF: 0 No Action vitamin E (dl, acetate) 400 unit capsule 400 unit PO BID RF: 0 pentoxifylline 400 mg tablet extended release 400 mg PO TID RF: 0 sildenafil 100 mg tablet 100 mg PO DAILY PRN (Reason: OTHER) RF: 0 potassium chloride [Klor-Con M20] 20 mEq tablet,ER particles/crystals 20 meq PO BID RF: 0 ferrous sulfate 325 mg (65 mg iron) tablet 325 mg PO DAILY RF: 0 folic acid 400 mcg tablet 0.4 mg PO DAILY RF: 0 pantoprazole 40 mg tablet,delayed release (DR/EC) 40 mg PO DAILY RF: 0 vitamin B complex [B Complex-Vitamin B12] Tablet 1 tab PO DAILY RF: 0 (DME) [employer] See Rx Instructions .ROUTE .MEDSUPPLY Qty: 1 RF: 0 (DME) [place] [employer] See Rx Instructions .Route .MEDSUPPLY Qty: 1 RF: 0 mupirocin 2 % ointment 1 applic TOPICAL BID Qty: 22 RF: 0 tadalafil 20 mg tablet 20 mg PO DAILY PRN (Reason: sexual activity) Qty: 20 RF: 12 tramadol 50 mg Tablet 50 mg PO BID PRN (Reason: Pain) RF: 0 meloxicam 7.5 mg tablet 7.5 mg PO DAILY RF: 0 Ocuvite Adult 50 Plus 250-5-1 mg Capsule 1 cap PO DAILY RF: 0 thiamine mononitrate (vit B1) [Vitamin B-1 (mononitrate)] 100 mg Tablet 100 mg PO DAILY Qty: 0 RF: 0 furosemide [Lasix] 40 mg tablet 60 mg PO BID Qty: 90 RF: 0 diltiazem HCl 120 mg tablet 120 mg PO Q8H Qty: 0 RF: 0 Discharge Orders: Discharge Order (Routine); Ordered 08/04/20 Ordered By: Ghassan Cedeno Referrals: Yosvany Segovia MD [Primary Care Provider] - Activity Restrictions/Additional Instructions: Follow-up with your doctor early next week if you are not improving. If you worsen significantly return to the emergency room at any time. 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
[2020-08-04 16:51] LABS: Basophils # 0.1 10^3/uL (0.0-0.1); Basophils % 1.2 %; Eosinophils # 0.2 10^3/uL (0.0-0.8); Eosinophils % 3.6 %; Hemoglobin 11.9 g/dL (11.7-16.6); Lymphocytes % 14.8 %; Mean Corpuscular Hemoglobin 37.4 pg (28.0-34.0); Mean Corpuscular Volume 110.1 fL (80-94); Mean Platelet Volume 9.1 fL (7.4-10.4); Monocytes # 0.8 10^3/uL (0.2-0.9); Monocytes % 11.7 %; Neutrophils % 68.1 %; Nucleated Red Blood Cells % 0 %; Platelet Count 136 10^3/cmm (130-400); Red Blood Count 3.18 10^6/uL (4.1-5.3); White Blood Count 6.8 10^3/uL (4.0-10.0)
[2020-08-04 17:00] VITALS: BP 121/74; PULSE 73; RESP 18; O2SAT 96
[2020-08-04 17:02] LABS: SARS Covid-2 Antigen Negative (Negative)
[2020-08-04 17:03] LABS: Lactic Sepsis W/Reflex 1.1 mmol/L (0.5-2.2)
[2020-08-04 17:04] LABS: Alanine Aminotransferase 22 U/L (0-41); Albumin Level 3.1 g/dL (3.5-5.2); Alkaline Phosphatase 135 IU/L (40-130); Anion Gap 12.3 (5-19); Aspartate Amino Transferase 36 U/L (0-40); Blood Urea Nitrogen 12 mg/dL (6-20); Carbon Dioxide 24 mmol/L (22-29); Chloride 93 mmol/L (98-107); Creatine Phosphokinase 65 U/L (39-308); Globulin 2.5 g/dL (1.3-4.6); Glomerular Filtration Rate 69.2 mL/min (90-130); Glucose 104 mg/dL (65-115); Lipase 19 U/L (13-60); Osmolality Calculated 260 mOsm/kg (285-295); Potassium 4.3 mmol/L (3.5-5.1); Sodium 125 mmol/L (136-145); Total Bilirubin 1.1 mg/dL (0.15-1.2); Total Protein 5.6 g/dL (6.6-8.7)
[2020-08-04] MEDS: levofloxacin-dextrose 5 % 750 MG/150 ML PREMIX 100 MG IV (17:30)
[2020-08-04 18:00] VITALS: BP 107/68; PULSE 93; RESP 18; O2SAT 97
[2020-08-04 19:00] VITALS: BP 123/79; PULSE 94; RESP 18; O2SAT 98
[2020-08-04 19:10] VITALS: BP 123/79; PULSE 81; RESP 20; O2SAT 98
== END 2020-08-04 19:19 | disposition home or self-care (01) ==
PROVIDERS: Emergency Provider Family Medicine; PCP Family Medicine
DX: J18.9 Pneumonia, unspecified organism (principal); I48.91 Unspecified atrial fibrillation; F17.210 Nicotine dependence, cigarettes, uncomplicated
CPT/HCPCS: 12345; 36600; 71045; 80051; 80053; 82330; 82550; 82805; 83605; 83690; 85025; 87426; 93005; 96365; 99282; 99284; J1956

== ENCOUNTER 2020-08-23 10:01 | Inpatient (IN) | payer BC, SELFPAY ==
[2020-08-23] VITALS (14 sets, daily range): BP systolic 110–122; BP diastolic 62–83; PULSE 75–92; RESP 16–20; TEMP 35.9–37.3; O2SAT 91–99; BMI 34.9
--- NOTE | 2020-08-23 10:19 | W.ED.PSYCH ---
HPI - Psych General: Chief Complaint: Alcohol Stated Complaint: Alcohol/Self Harm Time Seen by Provider: 08/23/20 10:12 Source: patient Mode of arrival: ambulatory Limitations: no limitations History of Present Illness: HPI Narrative: 55-year-old male has a long history of alcoholism states he has been having increased depression. His son is here and states that he had made suicidal statements and told her son he wanted him just to shoot him but he manages misery. Patient is voluntarily wanting to get help. He denies any specific plan today but states he does have severe depression. Denies any worsening or improving factors. Associated symptoms: Reports depression and suicidal ideation Review of Systems Const: Denies: fever(s), chills, body aches or change in appetite Eyes: Denies: blurry vision or eye discomfort ENMT: Denies: throat pain or dental pain Card: Denies: chest pain Resp: Denies: dyspnea GI: Denies: abdominal pain, nausea, vomiting or diarrhea : Denies: dysuria Musc: Denies: neck pain or back pain Skin/Breast: Denies: rash Neuro: Denies: headache(s) Psych: Reports: depression and suicidal ideation Avinash/Lymph: Denies: easy bruising All/Imm: Denies: urticaria PFSH ED PFSH: Medical History (Updated 08/23/20 @ 13:01 by Melanie Aldana MD) Atrial fibrillation and flutter Atrial fibrillation with RVR Charcot's arthropathy End-stage liver disease Erectile dysfunction History of abdominal paracentesis Hx of esophageal varices Neuropathy Peyronie disease PVD (peripheral vascular disease) Surgical History H/O colonoscopy 10-12 yrs H/O esophagogastroduodenoscopy History of tonsillectomy Hx of umbilical hernia repair Hx of vasectomy Status post surgery (07/05/20) peritoneal catheter for ascites Family History Grandfather CAD (coronary artery disease) Grandmother CAD (coronary artery disease) Cancer Father Cancer Denies family history of Anesthesia complication Bleeding disorder Social History (Updated 08/23/20 @ 10:21 by Mohinder Iglesias RN) Smoking and tobacco status: former smoker Alcohol intake: current Alcohol intake frequency: 3 or more drinks per day Alcohol type: beer Substance/Drug Use: never Adopted: No Caregiver/support person: No Lives independently: No Marital status: Current occupational status: employed History of recent travel: No Current gender identity: Male Physical Exam Const: COMMON NORMALS: no acute distress, patient oriented x3 and healthy appearing HENMT: COMMON NORMALS: normocephalic and atraumatic HEAD & SCALP: normocephalic and atraumatic Eye: COMMON NORMALS: Equal, round and reactive pupils present and EOMs intact bilaterally PUPIL: Yes Equal, round and reactive pupils present Neck/C-Spine: COMMON NORMALS: full ROM and supple Chest: COMMONS NORMALS: normal inspection of the chest and normal palpation of entire chest wall Resp: COMMON NORMALS: normal respiratory effort, No retractions, No use of accessory muscles and clear to auscultation bilaterally AUSCULTATION: clear to auscultation bilaterally Cardio: COMMON NORMALS: regular rate, regular rhythm and No murmurs present (Cardio) RATE: regular rate RHYTHM: regular rhythm GI: COMMON NORMALS: Normal to inspection, nondistended, normoactive bowel sounds present, Soft to palpation, non-tender and no masses PALPATION: Yes Soft to palpation Extremity: COMMON NORMALS: normal to inspection and full ROM Neuro: COMMON NORMALS: patient oriented x3, moves all extremities and no focal motor deficits Psych: COMMON NORMALS: mental status grossly normal, Normal thought process present and cooperative MOOD & AFFECT: Yes depressed mood THOUGHT PROCESS: Normal thought process present Skin: COMMON NORMALS: no rashes or lesions noted and no wounds GENERAL SKIN EXAM: no rashes or lesions noted MDM - Psych MDM Narrative: Medical decision making narrative: Patient presents for suicidal ideations and depression. He does have a history of alcoholism he denies no signs of withdrawals here. Spoke to psychiatrist and will admit to the psych unit. He does have chronic hyponatremia and had patient seen by hospitalist down the ER who cleared him for admission to the psych unit. Lab Data: Labs: Lab Results 08/23/20 08/23/20 Range/Units 10:35 10:35 WBC 5.5 (4.0-10.0) 10^3/ uL RBC 3.39 L (4.1-5.3) 10^6/u L Hgb 12.8 (11.7-16.6) g/dL Hct 35.4 L (42.0-52.0) % MCV 104.4 H (80-94) fL MCH 37.8 H (28.0-34.0) pg MCHC 36.2 H (30.0-36.0) g/dL RDW 13.4 (12.1-15.1) % Plt Count 153 (130-400) 10^3/c mm MPV 9.6 (7.4-10.4) fL Neut % (Auto) 66.8 % Lymph % (Auto) 16.0 % Hutchinson % (Auto) 12.1 % Eos % (Auto) 3.3 % Baso % (Auto) 1.1 % Neut # (Auto) 3.64 (1.8-7.7) 10^3/u L Lymph # (Auto) 0.9 (0.8-4.8) 10^3/u L [place]inson # (Auto) 0.7 (0.2-0.9) 10^3/u L Eos # (Auto) 0.2 (0.0-0.8) 10^3/u L Baso # (Auto) 0.1 (0.0-0.1) 10^3/u L Nucleated RBC % (a uto) 0 % Nucleated RBCs # 0.0 /100WBC Sodium 121 L (136-145) mmol/L Potassium 4.3 (3.5-5.1) mmol/L Chloride 84 L (98-107) mmol/L Carbon Dioxide 25 (22-29) mmol/L Anion Gap 16.3 (5-19) BUN 11 (6-20) mg/dL Creatinine 1.4 H (0.7-1.2) mg/dL GFR Calculation 52.4 L (90-130) mL/min Glucose 91 (65-115) mg/dL Calculated Osmolal ity 251 L (285-295) mOsm/k g Calcium 8.7 (8.5-10.5) mg/dL Total Bilirubin 1.3 H (0.15-1.2) mg/dL AST 40 (0-40) U/L ALT 23 (0-41) U/L Alkaline Phosphata se 152 H (40-130) IU/L Total Protein 6.2 L (6.6-8.7) g/dL Albumin 3.5 (3.5-5.2) g/dL Globulin 2.7 (1.3-4.6) g/dL Salicylates < 0.3 L (3-10) mg/dL Acetaminophen < 5.0 L (10-30) ug/mL Ethyl Alcohol 202 H (0-10) mg/dL Discharge Plan Discharge Patient Disposition: Admitted As Inpatient Clinical Impression: ETOH abuse, Depression, Hyponatremia Condition: Stable Coding Level of Care Code ED Director Of Distance Learning for Tay Fwd Exam Comprehensive
[2020-08-23] MEDS: multivitamin therapeutic Tablet 1 TAB PO (10:43)
[2020-08-23 11:13] LABS: Basophils # 0.1 10^3/uL (0.0-0.1); Basophils % 1.1 %; Eosinophils # 0.2 10^3/uL (0.0-0.8); Eosinophils % 3.3 %; Hematocrit 35.4 % (42.0-52.0); Hemoglobin 12.8 g/dL (11.7-16.6); Lymphocytes # 0.9 10^3/uL (0.8-4.8); Mean Corpuscular HGB Conc 36.2 g/dL (30.0-36.0); Mean Corpuscular Hemoglobin 37.8 pg (28.0-34.0); Mean Corpuscular Volume 104.4 fL (80-94); Mean Platelet Volume 9.6 fL (7.4-10.4); Monocytes # 0.7 10^3/uL (0.2-0.9); Monocytes % 12.1 %; Neutrophils # 3.64 10^3/uL (1.8-7.7); Neutrophils % 66.8 %; Nucleated Red Blood Cells % 0 %; Platelet Count 153 10^3/cmm (130-400); Red Blood Count 3.39 10^6/uL (4.1-5.3); Red Cell Distribution Width 13.4 % (12.1-15.1); White Blood Count 5.5 10^3/uL (4.0-10.0)
[2020-08-23 11:50] LABS: Alanine Aminotransferase 23 U/L (0-41); Albumin Level 3.5 g/dL (3.5-5.2); Alcohol Level 202 mg/dL (0-10); Alkaline Phosphatase 152 IU/L (40-130); Anion Gap 16.3 (5-19); Aspartate Amino Transferase 40 U/L (0-40); Blood Urea Nitrogen 11 mg/dL (6-20); Calcium 8.7 mg/dL (8.5-10.5); Carbon Dioxide 25 mmol/L (22-29); Chloride 84 mmol/L (98-107); Globulin 2.7 g/dL (1.3-4.6); Glomerular Filtration Rate 52.4 mL/min (90-130); Glucose 91 mg/dL (65-115); Osmolality Calculated 251 mOsm/kg (285-295); Potassium 4.3 mmol/L (3.5-5.1); Sodium 121 mmol/L (136-145); Total Bilirubin 1.3 mg/dL (0.15-1.2); Total Protein 6.2 g/dL (6.6-8.7)
[2020-08-23 11:51] LABS: Acetaminophen < 5.0 ug/mL (10-30); Salicylate < 0.3 mg/dL (3-10)
--- NOTE | 2020-08-23 13:21 | PM.CONSULT ---
Providers/Reason For Consult Consulting Physican/Specialty*: Marlene Watson MD/Hospitalist Reason for Consult*: hyponatremia Attending Physician: Nikunj Dickey MD Primary Care Provider: Yosvany Segovia MD History of Present Illness History of Present Illness Yosvany Soto is a 55 year old male past medical history of end-stage liver disease, portal hypertension, extensive varices, chronic ascites, chronic Afib, chronic hyponatremia, alcohol dependence, h/o hepatic encephalopathy who presented today to ER for depression, SI and voluntary psych admission. Medicine service consulted for hyponatremia. Per review of past values, patient has had chronic hyponatremia ranging between 116-129 since 02/2020. No recent changes in diuretic regimen, states he sometimes forgets to take lasix BID but consistently takes it once a day. He is no longer on aldactone. He drains his peritoneal fluid twice a week, approx 4L removed each time. Last drainage was 2 days ago. He is currently awake, alert and oriented. No headaches, no confusion. He has not been taking lactulose as it gives him bothersome diarrhea. Bowel movements are regular soft brown. no current c/o chest pain, dyspnea, palpitations. He continues to consume alcohol, 2-3 hard lemonade everyday Review of Systems General: Reports: 10 or more systems reviewed and unremarkable except in HPI and below Const: Denies: fever(s), chills or body aches Eyes: Denies: change in vision, blurry vision or photophobia ENMT: Reports: hoarseness; Denies: throat pain, enlarged tonsils, odynophagia or nasal congestion Card: Denies: chest pain, palpitations, irregular heart rhythm, edema, swelling of feet/ankles, lightheadedness, pre-syncope, dyspnea on exertion or orthopnea Resp: Denies: dyspnea, productive cough, non-productive cough, wheezing, stridor, pain on inspiration, change in phlegm color, hemoptysis or chest congestion GI: Denies: abdominal pain, nausea, vomiting, hematemesis, coffee ground emesis, dysphagia, heartburn, diarrhea, constipation, GI cramping, change in stool character, hematochezia or melena : Denies: flank pain, dysuria, urinary frequency, urinary urgency, urinary hesitancy or hematuria Musc: Denies: neck pain, back pain, extremity pain, joint swelling, joint warmth or deformity Neuro: Denies: headache(s), numbness in extremities, weakness in extremities, sensory changes, difficulty walking, frequent falls, dizziness, vertigo, behavioral changes, Slurred speech present or seizure-like activity Psych: Denies: anxiety, depression, suicidal ideation or homicidal ideation Endo: Denies: polyuria, polydipsia, tired all the time, cold intolerance or hot flashes Avinash/Lymph: Denies: easy bruising or easy bleeding Meds/Allergies Home Medications and Allergies Home Medications Medication Instructions Recorded Confirmed Last Taken Type ferrous sulfate 325 mg (65 mg 325 mg PO DAILY@16 01/04/20 08/23/20 08/22/20 History iron) tablet pantoprazole 40 mg tablet,delayed 40 mg PO DAILY@10 01/04/20 08/23/20 08/22/20 History release potassium chloride 20 mEq 20 meq PO BID@10,01/04/20 08/23/20 08/23/20 History tablet,extended release(part/cryst) sildenafil 100 mg tablet 100 mg PO DAILY PRN 01/04/20 08/23/20 Unknown History vitamin B complex 1 tab PO DAILY@16 01/04/20 08/23/20 08/22/20 History tadalafil 20 mg tablet 20 mg PO DAILY PRN #20 tab 01/10/20 08/23/20 Unknown Rx tramadol 50 mg PO BID PRN 05/05/20 08/23/20 08/03/20 History diltiazem HCl 120 mg PO Q8H #0 tab 06/17/20 08/23/20 08/23/20 Rx C,E,zinc,copper [id number] 2 cap PO DAILY@10 08/04/20 08/23/20 08/22/20 History [Ocuvite Adult 50 Plus] albuterol sulfate 2 inh INHALATION Q4H PRN #18 gm 08/04/20 08/23/20 Unknown Rx meloxicam 7.5 mg PO DAILY PRN 08/04/20 08/23/20 08/03/20 History Lasix 60 mg PO BID@10,16 08/23/20 08/23/20 08/22/20 History Vitamin B-1 (mononitrate) 100 mg PO DAILY@10 08/23/20 08/23/2008/22/20 History folic acid 1 mg PO DAILY@10 08/23/20 08/23/20 08/22/20 History Allergies Allergy/AdvReac Type Severity Reaction Status Date / Time Penicillins Allergy ALGY-Difficulty Verified 08/03/20 14:27 Breathing Sulfa (Sulfonamide Allergy Unknown Verified 08/03/20 14:27 Antibiotics) PFSH Acute PFSH: Medical History Atrial fibrillation and flutter Atrial fibrillation with RVR Charcot's arthropathy End-stage liver disease Erectile dysfunction History of abdominal paracentesis Hx of esophageal varices Neuropathy Peyronie disease PVD (peripheral vascular disease) Surgical History H/O colonoscopy 10-12 yrs H/O esophagogastroduodenoscopy History of tonsillectomy Hx of umbilical hernia repair Hx of vasectomy Status post surgery (07/05/20) peritoneal catheter for ascites Family History Grandfather CAD (coronary artery disease) Grandmother CAD (coronary artery disease) Cancer Father Cancer Denies family history of Anesthesia complication Bleeding disorder Social History Smoking and tobacco status: former smoker Alcohol intake: current Alcohol intake frequency: 3 or more drinks per day Alcohol type: beer Substance/Drug Use: never Adopted: No Caregiver/support person: No Lives independently: No Marital status: Current occupational status: employed History of recent travel: No Current gender identity: Male Vitals/I&O/Wt Last Vital Signs Temp 97.7 F 08/23/20 10:10 Pulse 82 08/23/20 12:58 Resp 16 08/23/20 12:58 BP 122/64 08/23/20 12:58 Pulse Ox 91 08/23/20 12:58 Weight last 48 hrs Weight 120.202 kg Physical Exam Narrative: EXAM NARRATIVE: GEN: Awake, alert and oriented, no acute distress CVS: S1S2 N RS: CTA B/L Abd: Soft, distended, peritoneal drain in place, bs+ 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 Hypotonic hyponatremia in this case most likely related to chronic liver disease and extensive third spacing He is currently asymptomatic in this regard and as such does not need directed treatment at this time Continue Lasix 60mg po BID at home dose Continue other home medications including cardizem 120mg TID tramadol prn for pain control Status: Acute (2) End-stage liver disease: Status: Chronic (3) Ascites due to alcoholic cirrhosis: Status: Chronic Coding Level of Care Code Acute S[employer] for Tya Rust Diagnoses Hyponatremia E87.1 End-stage liver disease K72.90 Ascites due to alcoholic cirrhosis K70.31
[2020-08-23 14:05] LABS: Amphetamines Screen Urine Negative (Negative); Barbiturates Screen Urine Negative (Negative); Benzodiazepines Screen Urine Negative (Negative); Cocaine Screen Urine Negative (Negative); Opiate Screen Urine Negative (Negative); PCP Screen Urine Negative (Negative); THC Screen Urine Negative (Negative)
[2020-08-23] MEDS: dilTIAZem 60 mg Tablet 120 MG PO ×2 (15:44→21:30)
[2020-08-23] MEDS: potassium chloride ER 20 mEq Tablet PO (15:44)
[2020-08-23] MEDS: FUROsemide 40 mg Tablet 60 MG PO (15:44)
[2020-08-23] MEDS: ferrous sulfate EC 325 mg Tablet PO (15:44)
[2020-08-23 16:29] LABS: Chol HDL Ratio 1.63 mg/dL (1.0-5.00); Cholesterol 150 mg/dL (0-200); HDL Cholesterol 92 mg/dL (60-100); LDL Cholesterol Calculated 47 mg/dL (50-129); LDL HDL Ratio 0.51 RATIO (0.00-3.22); Triglycerides 55 mg/dL (0-150)
--- NOTE | 2020-08-23 16:31 | PC.NURSE ---
Per Dr Dickey no need to order a sitter for patient with paracentesis catheter at this time.
[2020-08-23] MEDS: albuterol 8 gm MDI 1 PUFF INHALATION ×2 (17:27→21:25)
[2020-08-23] MEDS: nicotine 2 mg Gum BUCCAL (18:10)
--- NOTE | 2020-08-23 21:42 | PC.NURSE ---
Pm assessment Pt reports having a drinking problem and needing rehab. Pt states he will have to perform paracentesis on himself in the morning and will need a drainage container. Pt reports both kidney/liver malfunction. Both of his knees give him trouble while walking. Pt reports falling many times at home and knows that the drinking is a factor in the number of times that he falls. Pt is using his wheelchair but reports the ability to walk on his own with an unsteady gait. Pt denies AH/VH/SI/HI at this time. Will continue to monitor this pt.
--- NOTE | 2020-08-23 21:50 | NUR.SHIFT ---
CIWA is a 0
[2020-08-23] MEDS: trazodone 50 mg Tablet PO (22:40)
[2020-08-24 06:00] VITALS: BP 105/69; PULSE 90; RESP 18; TEMP 37.6; O2SAT 94
[2020-08-24 08:01] VITALS: PULSE 90; RESP 18; O2SAT 94
[2020-08-24] MEDS: albuterol 8 gm MDI 1 PUFF INHALATION ×2 (08:01→20:12)
[2020-08-24] MEDS: dilTIAZem 60 mg Tablet 120 MG PO ×3 (08:33→20:34)
[2020-08-24] MEDS: thiamine 100 mg Tablet PO (08:34)
[2020-08-24] MEDS: potassium chloride ER 20 mEq Tablet PO ×2 (08:34→14:27)
[2020-08-24] MEDS: multivitamin therapeutic Tablet 1 TAB PO (08:34)
[2020-08-24] MEDS: pantoprazole DR 40 mg Tablet PO (08:34)
[2020-08-24] MEDS: folic acid 1 mg Tablet PO (08:35)
[2020-08-24] MEDS: FUROsemide 40 mg Tablet 60 MG PO ×2 (08:35→14:27)
--- NOTE | 2020-08-24 10:00 | PM.NHP ---
Providers/Chief Complaint Admitting Physician: Nikunj Dickey MD Primary Care Provider: Yosvany Segovia MD Chief Complaint: Alcohol/Self Harm HPI NPU History of Present Illness Yosvany Soto is a 55 year old male who presents to the emergency department with the following report: Chief Complaint: Alcohol Stated Complaint: Alcohol/Self Harm Time Seen by Provider: 08/23/20 10:12 Source: patient Mode of arrival: ambulatory Limitations: no limitations History of Present Illness: HPI Narrative: 55-year-old male has a long history of alcoholism states he has been having increased depression. His son is here and states that he had made suicidal statements and told her son he wanted him just to shoot him but he manages misery. Patient is voluntarily wanting to get help. He denies any specific plan today but states he does have severe depression. Denies any worsening or improving factors. Associated symptoms: Reports depression and suicidal ideation. He was admitted to the neuropsychiatric unit for definitive treatment of those issues. He reports that recently his oldest son has been coming to see him because he has been having frequent falls. He reports that it is secondary to weakness in his legs. However his son and his family had concerns that it had to do with his alcohol use. He reports that he had a really rough time with alcohol in the past. He had about 2 years sober but then about 8-9 months ago he started drinking whiskey. Last 2-4 months he has been drinking like Zhou's hard lemonade 3-4 16 ounce cans daily. His family essentially had an intervention and his mother and son felt strongly if he stopped drinking he would stop having falls. They decided they would no longer enable him to either he needed to go get help or they were not helping anymore and so that how he ended up at [facility]. He reports that he does not smoke cigarettes, smoked marijuana or use any other illicit drugs. He's never been to rehabilitation and he did have one DUI on his records starting in 1983 but he has had 2 other charges that were reduced away from DUI. He endorses financial issues having not worked since February. He denies any need for any medications for depression or anxiety or any other mental health issues. He did report an openness to work with the social worker psychiatric to possibly get some options in place and we discussed possible discharge planning for tomorrow morning. Psychiatric history: As above. He's never had any inpatient psychiatric services in the past. Substance abuse history: As above. Family history: He denies any family history of addiction or mental health issues except addiction on his mother's side. He denies any suicide attempts or completions. He denies any he's ever had any suicide attempts. Development history: He denies any problems with his mom's or delivery at home, he learned a walk and talk him at his developmental milestones on time, he reports that he did not need speech therapy, learning support, emotional support for special education classes during his school years. Psychosocial history: 's mother father were together when he was born and they have 3 sons together. He reports that his childhood was excellent and he denied emotional, physical or sexual abuse. He graduated from high school and got an Associates degree. He endorses being a heterosexual with his Joshua relationship being 15 years. He's been 2 times and twice. He has 3 children. 34-year-old son from his first marriage and a 19-year-old daughter and 17-year-old son from his second marriage. 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 He reports that he has always been gainfully employed during his life. He currently lives in a house alone. Legal history: He's been a retirement one time overnight for the DWI. Medical history: Please see the ED note for details of his significant medical history. Meds NPU Home Medications Medication Instructions Recorded Confirmed Last Taken Type ferrous sulfate 325 mg (65 mg 325 mg PO DAILY@16 01/04/20 08/23/20 08/22/20 History iron) tablet pantoprazole 40 mg tablet,delayed 40 mg PO DAILY@10 01/04/20 08/23/20 08/22/20 History release potassium chloride 20 mEq 20 meq PO BID@10,16 01/04/20 08/23/20 08/23/20 History tablet,extended release(part/cryst) sildenafil 100 mg tablet 100 mg PO DAILY PRN 01/04/20 08/23/20 Unknown History vitamin B complex 1 tab PO DAILY@16 01/04/20 08/23/20 08/22/20 History tadalafil 20 mg tablet 20 mg PO DAILY PRN #20 tab 01/10/20 08/23/20 Unknown Rx tramadol 50 mg PO BID PRN 05/05/20 08/23/20 08/03/20 History diltiazem HCl 120 mg PO Q8H #0 tab 06/17/20 08/23/20 08/23/20 Rx C,E,zinc,copper [id number] 2 cap PO DAILY@10 08/04/20 08/23/20 08/22/20 History [Ocuvite Adult 50 Plus] albuterol sulfate 2 inh INHALATION Q4H PRN #18 gm 08/04/20 08/23/20 Unknown Rx meloxicam 7.5 mg PO DAILY PRN 08/04/20 08/23/20 08/03/20 History Lasix 60 mg PO BID@,16 08/23/20 08/23/20 08/22/20 History Vitamin B-1 (mononitrate) 100 mg PO DAILY@10 08/23/20 08/23/20 08/22/20 History folic acid 1 mg PO DAILY@10 08/23/20 08/23/20 08/22/20 History Allergies Allergy/AdvReac Type Severity Reaction Status Date / Time Penicillins Allergy ALGY-Difficulty Verified 08/03/20 14:27 Breathing Sulfa (Sulfonamide Allergy Unknown Verified 08/03/20 14:27 Antibiotics) PFSH NPU PFSH: Medical History Atrial fibrillation and flutter Atrial fibrillation with RVR Charcot's arthropathy End-stage liver disease Erectile dysfunction History of abdominal paracentesis Hx of esophageal varices Neuropathy Peyronie disease PVD (peripheral vascular disease) Surgical History H/O colonoscopy 10-12 yrs H/O esophagogastroduodenoscopy History of tonsillectomy Hx of umbilical hernia repair Hx of vasectomy Status post surgery (07/05/20) peritoneal catheter for ascites Family History Grandfather CAD (coronary artery disease) Grandmother CAD (coronary artery disease) Cancer Father Cancer Denies family history of Anesthesia complication Bleeding disorder Social History Smoking and tobacco status: former smoker Alcohol intake: current Alcohol intake frequency: 3 or more drinks per day Alcohol type: beer Substance/Drug Use: never Adopted: No Caregiver/support person: No Lives independently: No Marital status: Current occupational status: employed History of recent travel: No Current gender identity: Male Mental Status Exam MSE Comments: This is an obese white male with hospital scrubs on, with adequate grooming contact. Significant rash on his exposed arms. No abnormal movements except for mild psychomotor retardation. Cooperative with exam in no acute distress. Speech was decreased rate normal volume. Mood described as okay, affect slightly subdued. Thought process organized. Thought content: Patient denied any suicidal or homicidal ideations, there were no delusions reported noted, he denied any auditory or visual hallucinations. Attention and concentration were intact and memory was mostly reliable but no more formally tested. He is alert and oriented ?3. Insight and judgment appeared fair, impulse control was impaired. Vitals/I&O/Wt Last Vital Signs Temp 99.7 F H 08/24/20 06:00 Pulse 90 08/24/20 08:01 Resp 18 08/24/20 08:01 BP 105/69 08/24/20 06:00 Pulse Ox 94 08/24/20 08:01 Weight last 48 hrs Weight 120.202 kg Data NPU : 08/23/20 10:35 08/23/20 10:35 A&P Assessment and plan (1) Depression: Status: Acute (2) Hyponatremia: Status: Acute (3) Non-pressure chronic ulcer of other part of left foot limited to breakdown of skin: Status: Acute (4) Charcot's joint of left foot: Status: Acute (5) Acute hyponatremia: Status: Acute (6) Acute encephalopathy: Status: Acute (7) Acute renal failure: Status: Acute Qualifiers: Acute renal failure type: with acute tubular necrosis Qualified Code(s): N17.0 - Acute kidney failure with tubular necrosis (8) Ataxia: Status: Acute (9) End-stage liver disease: Status: Chronic (10) Ascites due to alcoholic cirrhosis: Status: Chronic (11) ETOH abuse: Status: Chronic (12) Erectile dysfunction: Status: Chronic Qualifiers: Erectile dysfunction type: due to other cause Qualified Code(s): N52.8 - Other male erectile dysfunction (13) Peyronie disease: Status: Chronic Additional A&P Information This is an obese white male with a long history of alcohol use and sequela from the alcohol addiction with recent increase in falls at home with concerns for safety by the family, economic challenges and some depression reported that not currently wanting to start antidepressant. He endorses a plan to be connected with treatment for his alcohol addiction. 1. Continue current medication. We'll continue to offer antidepressant. 2. Continue every 15 minute checks for safety. 3. Continue CIWA protocol. 4. Encourage individual, group and milieu therapy. 5. Encourage sober living treatment after discharge at the highest level of care to which he is willing to commit. Involuntary Hold Information 96 Hour Hold: 96 Hour Involuntary Admission: No Attestations NPU Medical Necessity Statement*: Inpatient hospitalization is medically necessary and clinically appropriate interventions at this time. We will monitor medications and make changes as indicated. He will be in the hospital for over to midnight. Likely length of stay 1-3 days. Coding Level of Care Code Acute Nutrition Services Worker for Tay Rust Diagnoses Depression F32.9 Hyponatremia E87.1 Non-pressure chronic ulcer of other part of left foot limited to breakdown of skin L97.521 Charcot's joint of left foot M14.672 Acute hyponatremia E87.1 Acute encephalopathy G93.40 Acute renal failure N17.0 Acute renal failure type: with acute tubular necrosis Ataxia R27.0 End-stage liver disease K72.90 Ascites due to alcoholic cirrhosis K70.31 ETOH abuse F10.10 Erectile dysfunction N52.8 Erectile dysfunction type: due to other cause Peyronie disease N48.6
[2020-08-24] MEDS: TRAMadol 50 mg Tablet PO (11:53)
[2020-08-24 14:00] VITALS: BP 126/83; PULSE 97; RESP 20; TEMP 36.5; O2SAT 93
[2020-08-24] MEDS: ferrous sulfate EC 325 mg Tablet PO (14:27)
[2020-08-24 19:27] VITALS: BP 129/74; PULSE 82; RESP 18; TEMP 36.9; O2SAT 95
[2020-08-24 20:13] VITALS: PULSE 104; RESP 16; O2SAT 96
[2020-08-24] MEDS: trazodone 50 mg Tablet PO (20:35)
--- NOTE | 2020-08-24 20:35 | PC.NURSE ---
PRN TRAZODONE ADMINISTERED TRAZODONE 50MG PO PER PT REQUEST FOR SLEEP AID. WILL MONITOR FOR MEDICATION EFFECTIVENESS.
--- NOTE | 2020-08-24 21:10 | PC.NURSE ---
PM assessment Pt is calm this evening, he does complain that his arms are tired from using the wheelchair to move around. He denies HI/SI. Pt is now sitting in his room quietly working on word puzzles. He is smiling and interacts with staff well. He requested Trazodone for sleep this evening. Med nurse notified.
--- NOTE | 2020-08-24 21:13 | PC.NURSE ---
CIWA 0
--- NOTE | 2020-08-25 03:41 | PC.NURSE ---
Follow up Pt did not choose to use the paracentesis drainage containers this evening. He believes that he will be discharged soon and will self treat when he is home unless he experiences any discomfort from fluid while he is here. Pt has used his wheelchair all night but is fatigued when he uses it from the room to the dayroom. Pt has slept well this evening with the trazodone and continues to sleep. He has been up to the bathroom one time this evening. Pt does not seem to be experiencing any alcohol withdrawl s/s at this time. Will continue to monitor.
[2020-08-25 06:00] VITALS: BP 133/102; PULSE 67; RESP 17; TEMP 36.6; O2SAT 93
[2020-08-25] MEDS: multivitamin therapeutic Tablet 1 TAB PO (07:50)
[2020-08-25] MEDS: potassium chloride ER 20 mEq Tablet PO (07:50)
[2020-08-25] MEDS: pantoprazole DR 40 mg Tablet PO (07:51)
[2020-08-25] MEDS: FUROsemide 40 mg Tablet 60 MG PO (07:51)
[2020-08-25] MEDS: dilTIAZem 60 mg Tablet 120 MG PO ×2 (09:35→14:34)
--- NOTE | 2020-08-25 12:37 | PM.NDC ---
Diagnoses at Discharge Discharge Diagnosis (1) Depression: Status: Resolved (2) Hyponatremia: Status: Acute (3) Non-pressure chronic ulcer of other part of left foot limited to breakdown of skin: Status: Acute (4) Charcot's joint of left foot: Status: Acute (5) Acute hyponatremia: Status: Acute Permanent problem details: Improved, 123 on discharge. (6) Acute encephalopathy: Status: Acute (7) Acute renal failure: Status: Acute Qualifiers: Acute renal failure type: with acute tubular necrosis Qualified Code(s): N17.0 - Acute kidney failure with tubular necrosis (8) Ataxia: Status: Acute (9) End-stage liver disease: Status: Chronic (10) Ascites due to alcoholic cirrhosis: Status: Chronic (11) ETOH abuse: Status: Chronic (12) Erectile dysfunction: Status: Chronic Qualifiers: Erectile dysfunction type: due to other cause Qualified Code(s): N52.8 - Other male erectile dysfunction (13) Peyronie disease: Status: Chronic Reason for Visit Reason for Visit: Alcohol/Self Harm Brief History: History of Present Illness Yosvany Soto is a 55 year old male who presents to the emergency department with the following report: Chief Complaint: Alcohol Stated Complaint: Alcohol/Self Harm Time Seen by Provider: 08/23/20 10:12 Source: patient Mode of arrival: ambulatory Limitations: no limitations History of Present Illness: HPI Narrative: 55-year-old male has a long history of alcoholism states he has been having increased depression. His son is here and states that he had made suicidal statements and told her son he wanted him just to shoot him but he manages misery. Patient is voluntarily wanting to get help. He denies any specific plan today but states he does have severe depression. Denies any worsening or improving factors. Associated symptoms: Reports depression and suicidal ideation. He was admitted to the neuropsychiatric unit for definitive treatment of those issues. He reports that recently his oldest son has been coming to see him because he has been having frequent falls. He reports that it is secondary to weakness in his legs. However his son and his family had concerns that it had to do with his alcohol use. He reports that he had a really rough time with alcohol in the past. He had about 2 years sober but then about 8-9 months ago he started drinking whiskey. Last 2-4 months he has been drinking like [employer]'s hard lemonade 3-4 16 ounce cans daily. His family essentially had an intervention and his mother and son felt strongly if he stopped drinking he would stop having falls. They decided they would no longer enable him to either he needed to go get help or they were not helping anymore and so that how he ended up at [facility]. He reports that he does not smoke cigarettes, smoked marijuana or use any other illicit drugs. He's never been to rehabilitation and he did have one DUI on his records starting in 1983 but he has had 2 other charges that were reduced away from DUI. He endorses financial issues having not worked since February. He denies any need for any medications for depression or anxiety or any other mental health issues. He did report an openness to work with the drug abuse social worker to possibly get some options in place and we discussed possible discharge planning for tomorrow morning. Psychiatric history: As above. He's never had any inpatient psychiatric services in the past. Substance abuse history: As above. Family history: He denies any family history of addiction or mental health issues except addiction on his mother's side. He denies any suicide attempts or completions. He denies any he's ever had any suicide attempts. Development history: He denies any problems with his mom's or delivery at home, he learned a walk and talk him at his developmental milestones on time, he reports that he did not need speech therapy, learning support, emotional support for special education classes during his school years. Psychosocial history: 's mother father were together when he was born and they have 3 sons together. He reports that his childhood was excellent and he denied emotional, physical or sexual abuse. He graduated from high school and got an Associates degree. He endorses being a heterosexual with his Joshua relationship being 15 years. He's been 2 times and twice. He has 3 children. 34-year-old son from his first marriage and a 19-year-old daughter and 17-year-old son from his second marriage. He's never been in the and he endorses being a [employer] attending [employer]. He reports that he has always been gainfully employed during his life. He currently lives in a house alone. Legal history: He's been a shelter one time overnight for the DWI. Medical history: Please see the ED note for details of his significant medical history. Hospital Course Hospital Course Yosvany presented to the emergency department on behalf of his family with great concerns about his falls, alcohol use and possible lethality. He endorsed some concerns at the emergency department and was admitted to the neuropsychiatric unit for definitive treatment of those issues. However on evaluation he was very resistant to there being any significant issues that needed addressed. Reported that his family was concerned but he denied there being a reason for concern. He vacillated between endorsing some depression and denying significant difficulties. He had no interest in remaining in the hospital and was not on hold. He was able to contract for safety prior to discharge. During The hospitalization, the patient had routine laboratory studies which were within normal limits except for a few outliers. Additionally there was a general medical evaluation, which was also within normal limits revealed no processes. Discharge summary: At the time of discharge the patient was absent lethality, there was no psychosis reported or noted. Mood and anxiety were well managed. The patient endorsed the plan to avoid all drugs of abuse and follow-up with the recommendations of the treatment team. The patient was evaluated and deemed to be absent credible lethality, and had achieved the maximum benefit from an inpatient hospitalization, so he/she was discharged. Involuntary Hold Information 96 Hour Hold: 96 Hour Involuntary Admission: No Mental Status Exam MSE Comments: This is an obese white male with hospital scrubs on, with adequate grooming contact. Significant rash on his exposed arms. No abnormal movements except for mild psychomotor retardation. Cooperative with exam in no acute distress. Speech was more normal rate normal volume. Mood described as pretty good, affect slightly brighter. Thought process organized. Thought content: Patient denied any suicidal or homicidal ideations, there were no delusions reported noted, he denied any auditory or visual hallucinations. Attention and concentration were intact and memory was mostly reliable but no more formally tested. He is alert and oriented ?3. Insight and judgment appeared fair, impulse control was impaired. Discharge Data Vitals: Last Vital Signs Temp 97.9 F 08/25/20 06:00 Pulse 67 08/25/20 06:00 Resp 17 08/25/20 06:00 BP 133/102 08/25/20 06:00 Pulse Ox 93 08/25/20 06:00 Discharge Plan Discharge Patient Disposition: Home Condition: Stable Prescriptions: Continued sildenafil 100 mg tablet 100 mg PO DAILY PRN (Reason: OTHER) RF: 0 potassium chloride [Klor-Con M20] 20 mEq tablet,ER particles/crystals 20 meq PO BID@10,16 RF: 0 ferrous sulfate 325 mg (65 mg iron) tablet 325 mg PO DAILY@16 RF: 0 pantoprazole 40 mg tablet,delayed release (DR/EC) 40 mg PO DAILY@10 RF: 0 vitamin B complex [B Complex-Vitamin B12] Tablet 1 tab PO DAILY@16 RF: 0 tadalafil 20 mg tablet 20 mg PO DAILY PRN (Reason: sexual activity) Qty: 20 RF: 12 tramadol 50 mg Tablet 50 mg PO BID PRN (Reason: Pain) RF: 0 meloxicam 7.5 mg tablet 7.5 mg PO DAILY PRN (Reason: Pain) RF: 0 Ocuvite Adult 50 Plus 250-5-1 mg Capsule 2 cap PO DAILY@10 RF: 0 albuterol sulfate 90 mcg/actuation HFA aerosol inhaler 2 inh INHALATION Q4H PRN (Reason: shortness of breath or wheezing) Qty: 18 RF: 0 folic acid 1 mg tablet 1 mg PO DAILY@10 RF: 0 Lasix 40 mg tablet 60 mg PO BID@10,16 RF: 0 Vitamin B-1 (mononitrate) 100 mg tablet 100 mg PO DAILY@10 RF: 0 diltiazem HCl 120 mg tablet 120 mg PO Q8H Qty: 0 RF: 0 No Action (DME) [place] boot See Rx Instructions .Route .MEDSUPPLY Qty: 1 RF: 0 Discharge Orders: Discharge Order (Routine); Ordered 08/25/20 Ordered By: Nikunj Dickey Referrals: [facility] [place] [facility] [Outside] (If interested, [facility] provides individual therapy. Call and request initial intake to start services.) [facility] [Outside] ([facility] provides outpatient and residential treatment for substance abuse. call for intake if you are interested) Yosvany Segovia MD [Primary Care Provider] - (follow-up with your primary care provider as needed and as already directed. Also, follow with all your current providers as scheduled. ) Discharge Diet: Cardiac and Low Salt Discharge Activity: Resume usual activity Activity Restrictions/Additional Instructions: Options to possibly help recovery: Group [facility] (0.1 mi) [address] [place] [address] contact: Al Chacko Meeting Time: 7:00 PM AA meeting in [place], [place] Friday 7 p.m. Friday no meeting Friday 7 p.m. 7 p.m. Friday 7 p.m. Friday noon Friday 7 p.m. AA [address] [place] [address] Discharge Attestations NPU Time Spent in Discharge Care*: less than 30 min Specific Discharge Activities: Specific discharge activities: educating patient, discussing with caseworker protective services/social workers/dc planners, documenting/other paperwork and evaluating patient/reviewing data Coding Level of Care Code Acute Safety Professional for Chg Fwd Diagnoses Depression F32.9 Hyponatremia E87.1 Non-pressure chronic ulcer of other part of left foot limited to breakdown of skin L97.521 Charcot's joint of left foot M14.672 Acute hyponatremia E87.1 Acute encephalopathy G93.40 Acute renal failure N17.0 Acute renal failure type: with acute tubular necrosis Ataxia R27.0 End-stage liver disease K72.90 Ascites due to alcoholic cirrhosis K70.31 ETOH abuse F10.10 Erectile dysfunction N52.8 Erectile dysfunction type: due to other cause Peyronie disease N48.6
[2020-08-25 13:01] VITALS: BP 133/102; PULSE 67; RESP 17; TEMP 36.6; O2SAT 93
[2020-08-25 13:12] VITALS: BP 117/57; PULSE 98; RESP 18; TEMP 36.9; O2SAT 98
== END 2020-08-25 15:25 | disposition home or self-care (01) | DRG 881 ==
LOC: ER 10:19 → NP 13:06
PROVIDERS: Student in an Organized Health Care Education/Training Program; Admitting Provider Psychiatry & Neurology Psychiatry; Emergency Provider Emergency Medicine; PCP Family Medicine; Visit Provider Psychiatry & Neurology Psychiatry
DX: F32.9 Major depressive disorder, single episode, unspecified (principal); N17.0 Acute kidney failure with tubular necrosis; K76.6 Portal hypertension; I48.20 Chronic atrial fibrillation, unspecified; E87.1 Hypo-osmolality and hyponatremia; R45.851 Suicidal ideations; G93.40 Encephalopathy, unspecified; K72.90 Hepatic failure, unspecified without coma; K70.31 Alcoholic cirrhosis of liver with ascites; F10.20 Alcohol dependence, uncomplicated; M14.60 Charcot's joint, unspecified site; N52.9 Male erectile dysfunction, unspecified; G62.9 Polyneuropathy, unspecified; N48.6 Induration penis plastica; I73.9 Peripheral vascular disease, unspecified; Z87.891 Personal history of nicotine dependence; R29.6 Repeated falls; L97.521 Non-pressure chronic ulcer of other part of left foot limited to breakdown of skin; E66.9 Obesity, unspecified; Z68.35 Body mass index [BMI] 35.0-35.9, adult; R27.0 Ataxia, unspecified
CPT/HCPCS: 12345; 80053; 80061; 80306; 80307; 85025; 94640; 96372; 99281; J3411; J3535

== ENCOUNTER 2020-09-08 12:05 | Emergency (ER) | payer BC, SELFPAY ==
[2020-09-08] VITALS (9 sets, daily range): BP systolic 98–135; BP diastolic 56–98; PULSE 73–103; RESP 17–24; TEMP 36.7–36.9; O2SAT 96–100; BMI 33.1
--- NOTE | 2020-09-08 12:22 | XRR_ITS ---
PROCEDURE INFORMATION: Exam: XR Chest, 1 View Exam date and time: 09/08/2020 1:01 PM Age: 55 years old Clinical indication: Chest pain; Additional info: Dyspnea TECHNIQUE: Imaging protocol: XR of the chest Views: 1 view. COMPARISON: CR XR chest 1V portable [id number] 2020-08-04 15:16 FINDINGS: Limitations: Limited by patient's body habitus. Lungs: See Pleural space finding. Pleural space: Large left-sided pleural effusion and associated atelectasis. Heart/Mediastinum: Unremarkable. No cardiomegaly. Bones/joints: Unremarkable. XR/XR chest 1V portable [id number] IMPRESSION: Large left-sided pleural effusion and associated atelectasis.
--- NOTE | 2020-09-08 12:29 | ECG_ITS ---
[facility] Test Date: 2020-09-08 Pat Name: Yosvany Soto Department: Room: Gender: Male Retail Support Manager: : 1965 Requested By: Sang Hernandez Order Number: [id number] Mohamud MD: Compa Escamilla M.D. Measurements Intervals [place] Rate: 80 P: SD: QRS: 28 QRSD: 94 T: 33 QT: 388 QTc: 448 Interpretive Statements ATRIAL FIBRILLATION LOW QRS VOLTAGE IN PRECORDIAL LEADS [QRS DEFLECTION < 1.0 mV IN CHEST LEADS] ANTEROSEPTAL MYOCARDIAL INFARCTION , PROBABLY OLD [40+ ms Q WAVE IN V1-V4] Compared to ECG 08/04/2020 14:29:08 No significant changes Electronically Signed On 09-08-2020 17:51:51 CORPORATE RECYCLING MANAGER by Compa Escamilla M.D. [id number]
[2020-09-08 12:55] LABS: Basophils # 0.1 10^3/uL (0.0-0.1); Basophils % 1.3 %; Eosinophils # 0.1 10^3/uL (0.0-0.8); Eosinophils % 1.2 %; Hematocrit 38.5 % (42.0-52.0); Hemoglobin 13.3 g/dL (11.7-16.6); Lymphocytes # 0.8 10^3/uL (0.8-4.8); Lymphocytes % 12.3 %; Mean Corpuscular HGB Conc 34.5 g/dL (30.0-36.0); Mean Corpuscular Hemoglobin 35.9 pg (28.0-34.0); Mean Corpuscular Volume 104.1 fL (80-94); Mean Platelet Volume 8.8 fL (7.4-10.4); Monocytes # 0.6 10^3/uL (0.2-0.9); Monocytes % 8.8 %; Neutrophils # 5.19 10^3/uL (1.8-7.7); Nucleated Red Blood Cells % 0 %; Platelet Count 203 10^3/cmm (130-400); Red Cell Distribution Width 12.7 % (12.1-15.1); White Blood Count 6.8 10^3/uL (4.0-10.0)
[2020-09-08 13:03] LABS: INR 1.12 (0.8-1.2)
[2020-09-08 13:09] LABS: Alanine Aminotransferase 24 U/L (0-41); Albumin Level 3.3 g/dL (3.5-5.2); Alkaline Phosphatase 175 IU/L (40-130); Anion Gap 14.5 (5-19); Aspartate Amino Transferase 35 U/L (0-40); Blood Urea Nitrogen 6 mg/dL (6-20); Calcium 8.3 mg/dL (8.5-10.5); Carbon Dioxide 27 mmol/L (22-29); Chloride 90 mmol/L (98-107); Globulin 2.8 g/dL (1.3-4.6); Glomerular Filtration Rate 69.2 mL/min (90-130); Glucose 136 mg/dL (65-115); Lactate (Lactic Acid level) 2.4 mmol/L (0.5-2.2); Osmolality Calculated 264 mOsm/kg (285-295); Potassium 4.5 mmol/L (3.5-5.1); Sodium 127 mmol/L (136-145); Total Protein 6.1 g/dL (6.6-8.7)
[2020-09-08 13:11] LABS: Troponin(5th) Baseline 24 ng/L (0-15)
[2020-09-08 13:17] LABS: Alcohol Level 390 mg/dL (0-10)
--- NOTE | 2020-09-08 14:35 | W.ED.WEAKNES ---
HPI - Weakness General: Chief complaint: Weakness Stated complaint: dehydration Time Seen by Provider: 09/08/20 12:08 History of Present Illness: HPI Narrative: The patient is a 55-year-old male with chronic liver failure/end-stage liver disease related to alcoholism. He also has atrial fibrillation. He comes to the ER this morning because his son visited him and said he was not responding. He says he thinks he was asleep. He says he drank a lot of alcohol yesterday and he thinks it was too much perhaps that is what is causing this. Denies chest pain but he does admit shortness of breath. Complaint: lack of energy Duration: intermittent Location: generalized Severity: moderate Associated symptoms: Reports short of breath; Denies chest pain, chills, fever(s), headache(s), nausea, syncope or vomiting Review of Systems General: Reports: 10 or more systems reviewed and unremarkable except in HPI and below Const: Denies: fever(s) or chills Eyes: Denies: change in vision, blurry vision or eye redness ENMT: Denies: throat pain, swelling of lips/tongue, ear or mastoid pain or nasal congestion Card: Denies: chest pain or syncope Resp: Denies: dyspnea, productive cough or non-productive cough GI: Denies: nausea or vomiting : Denies: flank pain, urinary frequency or urinary urgency Musc: Denies: neck pain, back pain, extremity pain, joint pain, joint redness, limited range of motion or muscle weakness Skin/Breast: Denies: rash, pruritus, erythema, skin pain or skin tenderness Neuro: Denies: headache(s) Psych: Denies: anxiety or depression Endo: Denies: polyuria All/Imm: Denies: urticaria, throat swelling or tongue swelling PFSH ED PFSH: Medical History (Updated 09/08/20 @ 22:51 by Sang Hernandez MD) Atrial fibrillation and flutter Atrial fibrillation with RVR Charcot's arthropathy End-stage liver disease Erectile dysfunction History of abdominal paracentesis Hx of esophageal varices Neuropathy Peyronie disease PVD (peripheral vascular disease) Surgical History H/O colonoscopy 10-12 yrs H/O esophagogastroduodenoscopy History of tonsillectomy Hx of umbilical hernia repair Hx of vasectomy Status post surgery (07/05/20) peritoneal catheter for ascites Family History Grandfather CAD (coronary artery disease) Grandmother CAD (coronary artery disease) Cancer Father Cancer Denies family history of Anesthesia complication Bleeding disorder Social History Smoking and tobacco status: former smoker Alcohol intake: current Alcohol intake frequency: 3 or more drinks per day Alcohol type: beer Adopted: No Caregiver/support person: No Lives independently: No Marital status: Current occupational status: employed History of recent travel: No Current gender identity: Male Physical Exam Const: COMMON NORMALS: no acute distress, average body habitus, patient oriented x3, no limitations, healthy appearing, alert and well nourished GENERAL APPEARANCE: cooperative, comfortable, well kempt and well developed ORIENTATION/CONSCIOUSNESS: Yes awake, Yes oriented to person, Yes oriented to place and Yes oriented to time HENMT: COMMON NORMALS: normocephalic, external ears normal and Normal external nose present HEAD & SCALP: normal to inspection and normocephalic NOSE: Normal external nose present EXTERNAL EAR: Yes external ears normal MOUTH: Normal oral and palatal mucosa present THROAT: posterior oropharynx normal Eye: COMMON NORMALS: Equal, round and reactive pupils present and EOMs intact bilaterally GENERAL EYE: appearance normal, both eyes and all related structures PUPIL: Yes Equal, round and reactive pupils present Neck/C-Spine: COMMON NORMALS: full ROM, no lymphadenopathy, no meningeal signs and no JVD GENERAL: Yes normal visual inspection Lymph: LYMPHATIC: no lymphadenopathy noted Chest: COMMONS NORMALS: normal inspection of the chest and normal palpation of entire chest wall Resp: COMMON NORMALS: normal respiratory effort, No retractions, No use of accessory muscles, clear to auscultation bilaterally and percussion normal EFFORT & INSPECTION: Yes able to speak in complete sentences AUSCULTATION: clear to auscultation bilaterally PERCUSSION: percussion normal Cardio: COMMON NORMALS: no JVD, regular rate, regular rhythm, S1 normal heart sound present, S2 normal heart sound present and Peripheral pulses 2+ throughout RATE: regular rate RHYTHM: regular rhythm HEART SOUNDS: S1 normal heart sound present and S2 normal heart sound present PERIPHERAL PULSES: Peripheral pulses 2+ throughout GI: COMMON NORMALS: Soft to palpation, non-tender and no masses INSPECTION: Yes normal to inspection (He has a valve to release his ascites. clean non-tender. mild distension) and Yes caput medusae present PALPATION: Yes Soft to palpation : COMMON NORMALS: Yes no CVA tenderness BLADDER/KIDNEY EXAM: Yes no CVA tenderness Back/Pelvis: COMMON NORMALS: no CVA tenderness, thoracic and lumbar spine normal to inspection, no thoracic nor lumbar tenderness and thoraco-lumbar ROM normal Extremity: COMMON NORMALS: normal to inspection, full ROM, capillary refill normal, no joint enlargement and no pedal edema GENERAL: Yes normal exam except as noted Neuro: COMMON NORMALS: patient oriented x3, CN's II-XII intact bilaterally, moves all extremities, no focal motor deficits, no sensory deficits noted and gait normal SENSORIUM/ORIENTATION: Yes alert, Yes oriented to person, Yes oriented to place and Yes oriented to time MENINGEAL SIGNS: Yes no meningeal signs Psych: COMMON NORMALS: mental status grossly normal, Normal thought process present, cooperative, normal affect and speech normal APPEARANCE: Yes well kempt ATTITUDE: Yes calm SPEECH: Yes normal speech THOUGHT PROCESS: Normal thought process present Skin: COMMON NORMALS: no rashes or lesions noted GENERAL SKIN EXAM: no rashes or lesions noted Course Vital Signs: Vital signs: Vital Signs Temperature 98.5 F 09/08/20 18:08 Pulse Rate 80 09/08/20 18:08 Respiratory Rate 18 09/08/20 18:08 Blood Pressure 127/74 09/08/20 18:08 Pulse Oximetry 98 09/08/20 18:08 MDM - Weakness MDM Narrative: Medical decision making narrative: The patient has severe end-stage liver disease with a peritoneal port. He came in intoxicated which is likely the reason he was not responding to his son this morning however he also has an increasing and large pleural effusion on the left side. He is also complaining of shortness of breath. It is worrisome to send him home with that as it could severely worsen quickly and cause problems at home. I discussed with the hospitalist upstairs and we do not have the recommended specialist available to care for this patient. I discussed with [facility] hospitalist Dr. Gardner who accepted for his care and the patient was transported to [facility]. Differential Diagnosis: Weakness Differential Diagnosis: Likely acute myocardial infarction, sepsis and dehydration Lab Data: Labs: Lab Results 09/08/20 09/08/20 09/08/20 Range/Units 12:40 12:40 12:40 WBC 6.8 (4.0-10.0) 10^3/ uL RBC 3.70 L (4.1-5.3) 10^6/u L Hgb 13.3 (11.7-16.6) g/dL Hct 38.5 L (42.0-52.0) % MCV 104.1 H (80-94) fL MCH 35.9 H (28.0-34.0) pg MCHC 34.5 (30.0-36.0) g/dL RDW 12.7 (12.1-15.1) % Plt Count 203 (130-400) 10^3/c mm MPV 8.8 (7.4-10.4) fL Neut % (Auto) 76.0 % Lymph % (Auto) 12.3 % [place] % (Auto) 8.8 % Eos % (Auto) 1.2 % Baso % (Auto) 1.3 % Neut # (Auto) 5.19 (1.8-7.7) 10^3/u L Lymph # (Auto) 0.8 (0.8-4.8) 10^3/u L [place] # (Auto) 0.6 (0.2-0.9) 10^3/u L Eos # (Auto) 0.1 (0.0-0.8) 10^3/u L Baso # (Auto) 0.1 (0.0-0.1) 10^3/u L Nucleated RBC % (a uto) 0 % Nucleated RBCs # 0.0 /100WBC PT 14.80 (12.1-14.9) SECO NDS INR 1.12 (0.8-1.2) Sodium 127 L (136-145) mmol/L Potassium 4.5 (3.5-5.1) mmol/L Chloride 90 L (98-107) mmol/L Carbon Dioxide 27 (22-29) mmol/L Anion Gap 14.5 (5-19) BUN 6 (6-20) mg/dL Creatinine 1.1 (0.7-1.2) mg/dL GFR Calculation 69.2 L (90-130) mL/min Glucose 136 H (65-115) mg/dL Calculated Osmolal ity 264 L (285-295) mOsm/k g Lactate (0.5-2.2) mmol/L Calcium 8.3 L (8.5-10.5) mg/dL Total Bilirubin 2.0 H (0.15-1.2) mg/dL AST 35 (0-40) U/L ALT 24 (0-41) U/L Alkaline Phosphata se 175 H (40-130) IU/L Ammonia (16-60) umol/L Troponin T Baselin e (0-15) ng/L Total Protein 6.1 L (6.6-8.7) g/dL Albumin 3.3 L (3.5-5.2) g/dL Globulin 2.8 (1.3-4.6) g/dL Ethyl Alcohol 390 H* (0-10) mg/dL 09/08/20 09/08/20 09/08/20 Range/Units 12:40 12:40 15:42 WBC (4.0-10.0) 10^3/ uL RBC (4.1-5.3) 10^6/u L Hgb (11.7-16.6) g/dL Hct (42.0-52.0) % MCV (80-94) fL MCH (28.0-34.0) pg MCHC (30.0-36.0) g/dL RDW (12.1-15.1) % Plt Count (130-400) 10^3/c mm MPV (7.4-10.4) fL Neut % (Auto) % Lymph % (Auto) % [place] % (Auto) % Eos % (Auto) % Baso % (Auto) % Neut # (Auto) (1.8-7.7) 10^3/u L Lymph # (Auto) (0.8-4.8) 10^3/u L [place] # (Auto) (0.2-0.9) 10^3/u L Eos # (Auto) (0.0-0.8) 10^3/u L Baso # (Auto) (0.0-0.1) 10^3/u L Nucleated RBC % (a uto) % Nucleated RBCs # /100WBC PT (12.1-14.9) SECO NDS INR (0.8-1.2) Sodium (136-145) mmol/L Potassium (3.5-5.1) mmol/L Chloride (98-107) mmol/L Carbon Dioxide (22-29) mmol/L Anion Gap (5-19) BUN (6-20) mg/dL Creatinine (0.7-1.2) mg/dL GFR Calculation (90-130) mL/min Glucose (65-115) mg/dL Calculated Osmolal ity (285-295) mOsm/k g Lactate 2.4 H (0.5-2.2) mmol/L Calcium (8.5-10.5) mg/dL Total Bilirubin (0.15-1.2) mg/dL AST (0-40) U/L ALT (0-41) U/L Alkaline Phosphata se (40-130) IU/L Ammonia 52 (16-60) umol/L Troponin T Baselin e 24 H (0-15) ng/L Total Protein (6.6-8.7) g/dL Albumin (3.5-5.2) g/dL Globulin (1.3-4.6) g/dL Ethyl Alcohol (0-10) mg/dL Discharge Plan Discharge Patient Disposition: Xfer Other Clinical Impression: Hyponatremia, ETOH abuse, End-stage liver disease Condition: Stable Referrals: Yosvany Segovia MD [Primary Care Provider] - Activity Restrictions/Additional Instructions: pt transferred to [facility] for further care. Coding Level of Care Code ED Radiology Assistant for Chg Fwd Exam Comprehensive
[2020-09-08 16:03] LABS: Ammonia 52 umol/L (16-60)
== END 2020-09-08 18:12 | disposition other institution (70) ==
LOC: ER 12:19
PROVIDERS: Emergency Provider Family Medicine; PCP Family Medicine
DX: K72.90 Hepatic failure, unspecified without coma (principal); F10.10 Alcohol abuse, uncomplicated; E87.1 Hypo-osmolality and hyponatremia; Y90.8 Blood alcohol level of 240 mg/100 ml or more; I48.91 Unspecified atrial fibrillation; Z87.891 Personal history of nicotine dependence
CPT/HCPCS: 12345; 71045; 80053; 80307; 82140; 83605; 84484; 85025; 85610; 93005; 99283

== ENCOUNTER → 2020-10-02 15:04 | Outpatient (BNVA) | payer OTHER, SELFPAY | PROVIDERS: PCP Family Medicine; Visit Provider Podiatrist Foot & Ankle Surgery | DX: S92.322A Displaced fracture of second metatarsal bone, left foot, initial encounter for closed fracture (principal); S92.332A Displaced fracture of third metatarsal bone, left foot, initial encounter for closed fracture; M79.672 Pain in left foot; X58.XXXA Exposure to other specified factors, initial encounter | CPT/HCPCS: 73630 ==

== ENCOUNTER 2020-10-02 16:20 | Outpatient (CLI) | payer OTHER, SELFPAY | END 2020-10-02 16:21 | disposition home or self-care (01) | LOC: SPT 16:20 | PROVIDERS: PCP Family Medicine; Visit Provider Podiatrist Foot & Ankle Surgery | DX: Z46.89 Encounter for fitting and adjustment of other specified devices (principal); M14.672 Charcot's joint, left ankle and foot | CPT/HCPCS: L4361 ==

== ENCOUNTER → 2020-10-06 13:17 | Outpatient (BNVA) | payer OTHER, SELFPAY | PROVIDERS: PCP Family Medicine; Visit Provider Podiatrist Foot & Ankle Surgery | DX: S92.325A Nondisplaced fracture of second metatarsal bone, left foot, initial encounter for closed fracture (principal); S92.335A Nondisplaced fracture of third metatarsal bone, left foot, initial encounter for closed fracture; X58.XXXA Exposure to other specified factors, initial encounter; M19.072 Primary osteoarthritis, left ankle and foot; M21.42 Flat foot [pes planus] (acquired), left foot; R22.42 Localized swelling, mass and lump, left lower limb | CPT/HCPCS: 73630 ==

== ENCOUNTER → 2020-10-11 11:09 | Outpatient (BNVA) | payer OTHER, SELFPAY | PROVIDERS: PCP Family Medicine; Visit Provider Podiatrist Foot & Ankle Surgery | DX: S92.345D Nondisplaced fracture of fourth metatarsal bone, left foot, subsequent encounter for fracture with routine healing (principal); S92.335D Nondisplaced fracture of third metatarsal bone, left foot, subsequent encounter for fracture with routine healing; S92.325D Nondisplaced fracture of second metatarsal bone, left foot, subsequent encounter for fracture with routine healing; W19.XXXD Unspecified fall, subsequent encounter; M14.672 Charcot's joint, left ankle and foot | CPT/HCPCS: 73630 ==

== ENCOUNTER → 2020-10-27 15:13 | Outpatient (BNVA) | payer OTHER, SELFPAY | PROVIDERS: PCP Family Medicine; Visit Provider Podiatrist Foot & Ankle Surgery | DX: S91.312D Laceration without foreign body, left foot, subsequent encounter (principal); S92.345D Nondisplaced fracture of fourth metatarsal bone, left foot, subsequent encounter for fracture with routine healing; S92.335D Nondisplaced fracture of third metatarsal bone, left foot, subsequent encounter for fracture with routine healing; S92.325D Nondisplaced fracture of second metatarsal bone, left foot, subsequent encounter for fracture with routine healing; M79.89 Other specified soft tissue disorders; X58.XXXD Exposure to other specified factors, subsequent encounter | CPT/HCPCS: 73630 ==

== ENCOUNTER 2020-11-23 00:18 | Inpatient (IN) | payer OTHER, SELFPAY ==
[2020-11-23] VITALS (42 sets, daily range): BP systolic 94–149; BP diastolic 62–86; PULSE 67–112; RESP 10–28; TEMP 36.6–36.9; O2SAT 91–100
--- NOTE | 2020-11-23 00:25 | XR_ITS ---
WS: [id number] Portable AP supine chest, 11/23/2020 Clinical Data: sob Comparison: PA and lateral chest, 11/16/2020. Findings: There is a large left pleural effusion which has accumulated since the prior x-ray. Underly ing consolidation may be present. The right lung is clear. The heart size is normal. XR/XR chest 1V portable [id number] Impression: 1. Accumulation of large left pleural effusion. 2. Clear right lung.
--- NOTE | 2020-11-23 00:25 | ECG_ITS ---
[facility] Test Date: 2020-11-23 Pat Name: Yosvany Soto Department: Room: Gender: Male Security Guard: : 1965 Requested By: Melanie Aldana Order Number: [id number] Cade MD: Compa Escamilla M.D. Measurements Intervals [place] Rate: 84 P: ID: QRS: 34 QRSD: 85 T: 64 QT: 365 QTc: 432 Interpretive Statements ATRIAL FIBRILLATION LOW QRS VOLTAGE [QRS DEFLECTION < 0.5/1.0 mV IN LIMB/CHEST LEADS] ANTEROSEPTAL MYOCARDIAL INFARCTION , PROBABLY OLD [40+ ms Q WAVE IN V1-V4] Compared to ECG 09/08/2020 12:39:51 No significant changes Electronically Signed On 11-23-2020 17:15:20 AUTOMOTIVE HEAVY MECHANIC by Compa Escamilla M.D. [id number]
--- NOTE | 2020-11-23 00:36 | PC.NURSE ---
Initial EKG done at 0030 and shown to ER doctor. He requested a repeat, it was done at 0034 and shown to ER doctor.
--- NOTE | 2020-11-23 00:42 | W.ED.SOB ---
HPI - SOB/Dyspnea General: Chief Complaint: Shortness of Breath/Dyspnea Stated Complaint: diff breathing Time Seen by Provider: 11/23/20 00:22 Source: patient and EMS Mode of arrival: EMS Limitations: no limitations History of Present Illness: HPI Narrative: 55-year-old male who has a history of cirrhosis and ascites states he has been having increasing shortness of breath today. EMS states he was 94% on room air but did have some wheezing. He does have a peritoneal drain states he drained 3 L 2 days ago and has not drained recently. He does have some distention in his abdomen. He states his dyspnea is worse when he lays flat and improved if he sits up. He denies any cough or fever. Associated symptoms: Deny abdominal pain, chest pain, fever(s), nausea or vomiting Review of Systems Const: Denies: fever(s), chills, body aches or change in appetite Eyes: Denies: blurry vision or eye discomfort ENMT: Denies: throat pain or dental pain Card: Denies: chest pain Resp: Reports: dyspnea GI: Denies: abdominal pain, nausea, vomiting or diarrhea : Denies: dysuria Musc: Denies: neck pain or back pain Skin/Breast: Denies: rash Neuro: Denies: headache(s) Psych: Denies: depression Avinash/Lymph: Denies: easy bruising All/Imm: Denies: urticaria PFSH ED PFSH: Medical History (Updated 11/23/20 @ 02:44 by Melanie Aldana MD) Atrial fibrillation and flutter Atrial fibrillation with RVR Charcot's arthropathy End-stage liver disease Erectile dysfunction History of abdominal paracentesis Hx of esophageal varices Neuropathy Peyronie disease PVD (peripheral vascular disease) Surgical History H/O colonoscopy 10-12 yrs H/O esophagogastroduodenoscopy History of tonsillectomy Hx of umbilical hernia repair Hx of vasectomy Status post surgery (07/05/20) peritoneal catheter for ascites Family History Grandfather CAD (coronary artery disease) Grandmother CAD (coronary artery disease) Cancer Father Cancer Denies family history of Anesthesia complication Bleeding disorder Social History Smoking and tobacco status: former smoker Alcohol intake: current Alcohol intake frequency: 3 or more drinks per day Alcohol type: beer Adopted: No Caregiver/support person: No Lives independently: No Marital status: Current occupational status: employed History of recent travel: No Current gender identity: Male Physical Exam Const: COMMON NORMALS: no acute distress, patient oriented x3 and healthy appearing HENMT: COMMON NORMALS: normocephalic and atraumatic HEAD & SCALP: normocephalic and atraumatic Eye: COMMON NORMALS: Equal, round and reactive pupils present and EOMs intact bilaterally PUPIL: Yes Equal, round and reactive pupils present Neck/C-Spine: COMMON NORMALS: full ROM and supple Chest: COMMONS NORMALS: normal inspection of the chest and normal palpation of entire chest wall Resp: COMMON NORMALS: normal respiratory effort, No retractions and No use of accessory muscles AUSCULTATION: wheezes OTHER: Decreased breath sounds to the left lung Cardio: COMMON NORMALS: regular rate, regular rhythm and No murmurs present (Cardio) RATE: regular rate RHYTHM: regular rhythm GI: COMMON NORMALS: Soft to palpation, non-tender and no masses PALPATION: Yes Soft to palpation and Yes Ascites present Extremity: COMMON NORMALS: normal to inspection and full ROM Neuro: COMMON NORMALS: patient oriented x3, moves all extremities and no focal motor deficits Psych: COMMON NORMALS: mental status grossly normal, Normal thought process present and cooperative THOUGHT PROCESS: Normal thought process present Skin: COMMON NORMALS: no rashes or lesions noted and no wounds GENERAL SKIN EXAM: no rashes or lesions noted Course Vital Signs: Vital signs: Vital Signs Temperature 98.2 F 11/23/20 00:23 Pulse Rate 84 11/23/20 01:07 Respiratory Rate 18 11/23/20 01:02 Blood Pressure 127/85 11/23/20 00:23 Pulse Oximetry 97 11/23/20 01:02 MDM - SOB/Dyspnea MDM Narrative: Medical decision making narrative: Patient presents here with shortness of breath. His x-ray and CT shows a large pleural effusion likely causing his dyspnea. Patient has possible pneumonia as well and will treat with IV antibiotics. I spoke to the hospitalist and will admit at this time. Lab Data: Labs: Lab Results 11/23/20 11/23/20 11/23/20 Range/Units 00:39 00:39 00:39 WBC 7.5 (4.0-10.0) 10^3/ uL RBC 3.46 L (4.1-5.3) 10^6/u L Hgb 11.4 L (11.7-16.6) g/dL Hct 32.5 L (42.0-52.0) % MCV 93.9 (80-94) fL MCH 32.9 (28.0-34.0) pg MCHC 35.1 (30.0-36.0) g/dL RDW 13.8 (12.1-15.1) % Plt Count 228 (130-400) 10^3/c mm MPV 9.5 (7.4-10.4) fL Neut % (Auto) 72.7 % Lymph % (Auto) 13.6 % [place] % (Auto) 11.3 % Eos % (Auto) 0.9 % Baso % (Auto) 0.8 % Neut # (Auto) 5.45 (1.8-7.7) 10^3/u L Lymph # (Auto) 1.0 (0.8-4.8) 10^3/u L [place] # (Auto) 0.9 (0.2-0.9) 10^3/u L Eos # (Auto) 0.1 (0.0-0.8) 10^3/u L Baso # (Auto) 0.1 (0.0-0.1) 10^3/u L Nucleated RBC % (a uto) 0 % Nucleated RBCs # 0.0 /100WBC Sodium 119 L* (136-145) mmol/L Potassium 4.2 (3.5-5.1) mmol/L Chloride 82 L (98-107) mmol/L Carbon Dioxide 26 (22-29) mmol/L Anion Gap 15.2 (5-19) BUN 8 (6-20) mg/dL Creatinine 1.2 (0.7-1.2) mg/dL GFR Calculation 62.6 L (90-130) mL/min Glucose 134 H (65-115) mg/dL Calculated Osmolal ity 248 L (285-295) mOsm/k g Calcium 7.9 L (8.5-10.5) mg/dL Total Bilirubin 1.3 H (0.15-1.2) mg/dL AST 36 (0-40) U/L ALT 22 (0-41) U/L Alkaline Phosphata se 156 H (40-130) IU/L NT-Pro-B Natriuret Pep 255 H (0-125) pg/mL Total Protein 6.2 L (6.6-8.7) g/dL Albumin 3.0 L (3.5-5.2) g/dL Globulin 3.2 (1.3-4.6) g/dL Influenza Type A A g Negative (Negative) Influenza Type B A g Negative (Negative) SARS-CoV-2 Ag (Rap id) (Negative) 11/23/20 Range/Units 00:39 WBC (4.0-10.0) 10^3/ uL RBC (4.1-5.3) 10^6/u L Hgb (11.7-16.6) g/dL Hct (42.0-52.0) % MCV (80-94) fL MCH (28.0-34.0) pg MCHC (30.0-36.0) g/dL RDW (12.1-15.1) % Plt Count (130-400) 10^3/c mm MPV (7.4-10.4) fL Neut % (Auto) % Lymph % (Auto) % [place] % (Auto) % Eos % (Auto) % Baso % (Auto) % Neut # (Auto) (1.8-7.7) 10^3/u L Lymph # (Auto) (0.8-4.8) 10^3/u L [place] # (Auto) (0.2-0.9) 10^3/u L Eos # (Auto) (0.0-0.8) 10^3/u L Baso # (Auto) (0.0-0.1) 10^3/u L Nucleated RBC % (a uto) % Nucleated RBCs # /100WBC Sodium (136-145) mmol/L Potassium (3.5-5.1) mmol/L Chloride (98-107) mmol/L Carbon Dioxide (22-29) mmol/L Anion Gap (5-19) BUN (6-20) mg/dL Creatinine (0.7-1.2) mg/dL GFR Calculation (90-130) mL/min Glucose (65-115) mg/dL Calculated Osmolal ity (285-295) mOsm/k g Calcium (8.5-10.5) mg/dL Total Bilirubin (0.15-1.2) mg/dL AST (0-40) U/L ALT (0-41) U/L Alkaline Phosphata se (40-130) IU/L NT-Pro-B Natriuret Pep (0-125) pg/mL Total Protein (6.6-8.7) g/dL Albumin (3.5-5.2) g/dL Globulin (1.3-4.6) g/dL Influenza Type A A g (Negative) Influenza Type B A g (Negative) SARS-CoV-2 Ag (Rap id) Negative (Negative) Imaging Data^: CT Chest: Radiologist's impression: [address] [address] [address] Scan Report Signed Patient: Yosvany Soto Unit #: [id number] : 1965 Age/Sex: 55 / M ADM Date: 11/23/20 Loc: ER Room/Bed: Attending Dr: Ordering Provider/Ordering MD: Melanie Aldana MD Date of Service: 11/23/20 Procedure(s): CT angio chest w abd pel w con Accession Number(s): [id number] Report Number: [id number] PROCEDURE INFORMATION: Exam: CT Angiography Chest With Contrast Exam date and time: 11/23/2020 12:58 AM Age: 55 years old Clinical indication: Bloating; Cough and shortness of breath; Prior surgery; Surgery type: Peritoneal drain; Patient HX: Cough with SOB. Distended abdomen. History of cirrhosis. TECHNIQUE: Imaging protocol: Computed tomographic angiography of the chest with contrast. 3D rendering (Not supervised by radiologist): MIP and/or 3D reconstructed images were created by the technologist. Radiation optimization: All CT scans at this facility use at least one of these dose optimization techniques: automated exposure control; mA and/or kV adjustment per patient size (includes targeted exams where dose is matched to clinical indication); or iterative reconstruction. Contrast material: OMNI 350; Contrast volume: 95 ml; Contrast route: INTRAVENOUS (IV); COMPARISON: CTA Chest-Pulmonary Emb [id number] 01/25/2015 1:27 PM RADIATION DOSE METRICS: Total DLP (mGy-cm): 2465.22 FINDINGS: Pulmonary arteries: No pulmonary embolism. Aorta: Unremarkable. No aortic aneurysm. No aortic dissection. Lungs: There is consolidation portions of the left upper and left lower lobes. Pleural spaces: Large left pleural effusion Heart: Unremarkable. No cardiomegaly. No pericardial effusion. Mediastinal space: Large varices are present in the lower mediastinum. Lymph nodes: Unremarkable. No enlarged lymph nodes. Bones/joints: Unremarkable. No acute fracture. Soft tissues: Unremarkable. IMPRESSION: 1. Large left pleural effusion 2. No pulmonary embolism. 3. Consolidation in the left upper lower lobes which could be secondary to pneumonia versus atelectasis. PROCEDURE INFORMATION: Exam: CT Abdomen And Pelvis With Contrast Exam date and time: 11/23/2020 12:58 AM Age: 55 years old Clinical indication: Bloating; Cough and shortness of breath; Prior surgery; Surgery type: Peritoneal drain; Patient HX: Cough with SOB. Distended abdomen. History of cirrhosis. TECHNIQUE: Imaging protocol: Computed tomography of the abdomen and pelvis with contrast. Radiation optimization: All CT scans at this facility use at least one of these dose optimization techniques: automated exposure control; mA and/or kV adjustment per patient size (includes targeted exams where dose is matched to clinical indication); or iterative reconstruction. Contrast material: OMNI 350; Contrast volume: 95 ml; Contrast route: INTRAVENOUS (IV); COMPARISON: CTA Chest-Pulmonary Emb [id number] 01/25/2015 1:27 PM RADIATION DOSE METRICS: Total DLP (mGy-cm): 2465.22 FINDINGS: Tubes, catheters and devices: There is a right-sided drainage catheter coiled in the anterior abdomen. Lungs: The lung bases are clear. No effusion Liver: There is cirrhotic morphology of the liver. Gallbladder and bile ducts: No wall thickening, pericholecystic fluid or stones. Pancreas: Normal. No ductal dilation. Spleen: Normal. No splenomegaly. Adrenal glands: Normal. No mass. Kidneys and ureters: Normal. No hydronephrosis. Stomach and bowel: Diverticulosis without diverticulitis. Appendix: No evidence of appendicitis. Intraperitoneal space: Moderate amount of ascites is present in the abdomen and pelvis. Vasculature: Unremarkable. No abdominal aortic aneurysm. Lymph nodes: Unremarkable. No enlarged lymph nodes. Urinary bladder: Unremarkable as visualized. Reproductive: Unremarkable as visualized. Bones/joints: Unremarkable. No acute fracture. Soft tissues: Unremarkable. CT/CT angio chest w abd pel w con IMPRESSION: 1. Moderate amount of ascites is present in the abdomen and pelvis. 2. Diverticulosis without diverticulitis. 3. Cirrhosis with portal venous hypertension and large mediastinal varices. EKG Data^: EKG 1: Attestation: I personally reviewed and interpreted this EKG as follows: EKG Interpretation Date: 11/23/20 EKG interpretation time: 00:31 Interpretation: afib hr [address] or t wave abnormalities qrs 85 Discharge Plan Discharge Patient Disposition: Admitted As Inpatient Clinical Impression: Pleural effusion, Acute dyspnea, Ascites Condition: Stable Coding Level of Care Code ED Senior Marketing Engineer for g Fwd Exam Comprehensive
--- NOTE | 2020-11-23 00:52 | CTR_ITS ---
PROCEDURE INFORMATION: Exam: CT Angiography Chest With Contrast Exam date and time: 11/23/2020 12:58 AM Age: 55 years old Clinical indication: Bloating; Cough and shortness of breath; Prior surgery; Surgery type: Peritoneal drain; Patient HX: Cough with SOB. Distended abdomen. History of cirrhosis. TECHNIQUE: Imaging protocol: Computed tomographic angiography of the chest with contrast. 3D rendering (Not supervised by radiologist): MIP and/or 3D reconstructed images were created by the technologist. Radiation optimization: All CT scans at this facility use at least one of these dose optimization techniques: automated exposure control; mA and/or kV adjustment per patient size (includes targeted exams where dose is matched to clinical indication); or iterative reconstruction. Contrast material: OMNI 350; Contrast volume: 95 ml; Contrast route: INTRAVENOUS (IV); COMPARISON: CTA Chest-Pulmonary Emb [id number] 01/25/2015 1:27 PM RADIATION DOSE METRICS: Total DLP (mGy-cm): 2465.22 FINDINGS: Pulmonary arteries: No pulmonary embolism. Aorta: Unremarkable. No aortic aneurysm. No aortic dissection. Lungs: There is consolidation portions of the left upper and left lower lobes. Pleural spaces: Large left pleural effusion Heart: Unremarkable. No cardiomegaly. No pericardial effusion. Mediastinal space: Large varices are present in the lower mediastinum. Lymph nodes: Unremarkable. No enlarged lymph nodes. Bones/joints: Unremarkable. No acute fracture. Soft tissues: Unremarkable. IMPRESSION: 1. Large left pleural effusion 2. No pulmonary embolism. 3. Consolidation in the left upper lower lobes which could be secondary to pneumonia versus atelectasis. PROCEDURE INFORMATION: Exam: CT Abdomen And Pelvis With Contrast Exam date and time: 11/23/2020 12:58 AM Age: 55 years old Clinical indication: Bloating; Cough and shortness of breath; Prior surgery; Surgery type: Peritoneal drain; Patient HX: Cough with SOB. Distended abdomen. History of cirrhosis. TECHNIQUE: Imaging protocol: Computed tomography of the abdomen and pelvis with contrast. Radiation optimization: All CT scans at this facility use at least one of these dose optimization techniques: automated exposure control; mA and/or kV adjustment per patient size (includes targeted exams where dose is matched to clinical indication); or iterative reconstruction. Contrast material: OMNI 350; Contrast volume: 95 ml; Contrast route: INTRAVENOUS (IV); COMPARISON: CTA Chest-Pulmonary Emb [id number] 01/25/2015 1:27 PM RADIATION DOSE METRICS: Total DLP (mGy-cm): 2465.22 FINDINGS: Tubes, catheters and devices: There is a right-sided drainage catheter coiled in the anterior abdomen. Lungs: The lung bases are clear. No effusion Liver: There is cirrhotic morphology of the liver. Gallbladder and bile ducts: No wall thickening, pericholecystic fluid or stones. Pancreas: Normal. No ductal dilation. Spleen: Normal. No splenomegaly. Adrenal glands: Normal. No mass. Kidneys and ureters: Normal. No hydronephrosis. Stomach and bowel: Diverticulosis without diverticulitis. Appendix: No evidence of appendicitis. Intraperitoneal space: Moderate amount of ascites is present in the abdomen and pelvis. Vasculature: Unremarkable. No abdominal aortic aneurysm. Lymph nodes: Unremarkable. No enlarged lymph nodes. Urinary bladder: Unremarkable as visualized. Reproductive: Unremarkable as visualized. Bones/joints: Unremarkable. No acute fracture. Soft tissues: Unremarkable. CT/CT angio chest w abd pel w con IMPRESSION: 1. Moderate amount of ascites is present in the abdomen and pelvis. 2. Diverticulosis without diverticulitis. 3. Cirrhosis with portal venous hypertension and large mediastinal varices. Radiation Dose CTDIVOL = (mGy): DLP = 2465.22~2465.22 (mGy-cm)
[2020-11-23] MEDS: ipratropium-albuterol 3 mL Neb INHALATION ×2 (01:05→06:34)
[2020-11-23 01:06] LABS: Influenza A by IFA Negative (Negative); Influenza B by IFA Negative (Negative)
[2020-11-23 01:07] LABS: SARS Covid-2 Antigen Negative (Negative)
[2020-11-23 01:16] LABS: Alanine Aminotransferase 22 U/L (0-41); Alkaline Phosphatase 156 IU/L (40-130); Anion Gap 15.2 (5-19); Aspartate Amino Transferase 36 U/L (0-40); Blood Urea Nitrogen 8 mg/dL (6-20); Calcium 7.9 mg/dL (8.5-10.5); Carbon Dioxide 26 mmol/L (22-29); Chloride 82 mmol/L (98-107); Creatinine Clr Calc Pharmacy 123.4781; Globulin 3.2 g/dL (1.3-4.6); Glomerular Filtration Rate 62.6 mL/min (90-130); Glucose 134 mg/dL (65-115); NT Pro B Type Natriuretic Pept 255 pg/mL (0-125); Osmolality Calculated 248 mOsm/kg (285-295); Potassium 4.2 mmol/L (3.5-5.1); Total Bilirubin 1.3 mg/dL (0.15-1.2); Total Protein 6.2 g/dL (6.6-8.7)
[2020-11-23 01:20] LABS: Sodium 119 mmol/L (136-145)
[2020-11-23 01:26] LABS: Basophils # 0.1 10^3/uL (0.0-0.1); Basophils % 0.8 %; Eosinophils # 0.1 10^3/uL (0.0-0.8); Eosinophils % 0.9 %; Hematocrit 32.5 % (42.0-52.0); Hemoglobin 11.4 g/dL (11.7-16.6); Lymphocytes % 13.6 %; Mean Corpuscular HGB Conc 35.1 g/dL (30.0-36.0); Mean Corpuscular Hemoglobin 32.9 pg (28.0-34.0); Mean Corpuscular Volume 93.9 fL (80-94); Mean Platelet Volume 9.5 fL (7.4-10.4); Monocytes # 0.9 10^3/uL (0.2-0.9); Monocytes % 11.3 %; Neutrophils # 5.45 10^3/uL (1.8-7.7); Neutrophils % 72.7 %; Nucleated Red Blood Cells % 0 %; Platelet Count 228 10^3/cmm (130-400); Red Blood Count 3.46 10^6/uL (4.1-5.3); Red Cell Distribution Width 13.8 % (12.1-15.1); White Blood Count 7.5 10^3/uL (4.0-10.0)
[2020-11-23] MEDS: iohexol 350 mg/mL 100 mL Btl IV (01:42)
--- NOTE | 2020-11-23 02:28 | PC.NURSE ---
One liter of peritoneal fluid drained from abdominal drain at this time.
[2020-11-23] MEDS: aztreonam 2,000 MG in sodium chloride 0.9% (plus) 100 ML 200 MG IV (03:24)
[2020-11-23] MEDS: vancomycin 1,000 MG in sodium chloride 0.9% 250 ML 250 MG IV (03:57)
--- NOTE | 2020-11-23 04:36 | PM.HP ---
Providers/Chief Complaint Admitting Physician: Girish Hansen MD Primary Care Provider: Yosvany Segovia MD Chief Complaint: diff breathing History of Present Illness Yosvany Soto is a 55 year old male with a past medical history of end-stage liver disease, with peritoneal catheter for ascites, history of esophageal varices, continued alcohol use last drink yesterday afternoon, history of atrial fibrillation not on anticoagulation due to risk of bleeding, chronic hyponatremia secondary to liver disease, alcoholism and noncompliance with Lasix therapy, who presents to [facility] due to shortness of breath. Patient tells me that he has a history of liver cirrhosis, the last time he had his ascites drains was a few days ago, he does not remember how much fluid was taken off, but roughly 3 L, he also had some fluid taken off in the emergency room which did not help his shortness of breath. No fevers, no chills, no nausea, no vomiting, no chest pain, no palpitations, no lightheadedness, dizziness, no cough, no known exposure to COVID-19. Patient tells me that he lives alone, he has been feeling more weak, but no falls. He does have a fracture of the left foot, managed by Dr. Carrera. In the emergency room he was found to have a fairly extensive left pleural effusion. Hospitalist team was called for admission, he was also given vancomycin and aztreonam for possible pneumonia. He is found to be hyponatremic serum 119 Review of Systems Const: Denies: fever(s), chills, fatigue or malaise Eyes: Denies: change in vision or blurry vision ENMT: Denies: nasal congestion Card: Denies: chest pain or palpitations Resp: Reports: dyspnea; Denies: productive cough, non-productive cough or wheezing GI: Denies: abdominal pain, nausea, vomiting, hematemesis, diarrhea, constipation, hematochezia or melena : Denies: flank pain, difficulty urinating, dysuria or urinary frequency Musc: Denies: neck pain or back pain Skin/Breast: Denies: rash Neuro: Denies: headache(s), dizziness or vertigo Endo: Denies: polyuria or polydipsia Medications/Allergies Home Medications Medication Instructions Recorded Confirmed Last Taken Type ferrous sulfate 325 mg (65 mg 325 mg PO DAILY@16 01/04/20 11/20/20 09/07/20 History iron) tablet pantoprazole 40 mg tablet,delayed 40 mg PO DAILY@10 01/04/20 11/20/20 09/07/20 History release potassium chloride 20 mEq 20 meq PO BID@,01/04/20 11/20/20 09/07/20 History tablet,extended release(part/cryst) sildenafil 100 mg tablet 100 mg PO DAILY PRN 01/04/20 11/20/20 Unknown History vitamin B complex 1 tab PO DAILY@01/04/20 11/20/20 09/07/20 History tadalafil 20 mg tablet 20 mg PO DAILY PRN #20 tab 01/10/20 11/20/20 Unknown Rx tramadol 50 mg PO BID PRN 05/05/20 11/20/20 09/07/20 History diltiazem HCl 120 mg PO Q8H #0 tab 06/17/20 11/20/20 09/07/20 Rx Ocuvite Adult 50 Plus 2 cap PO DAILY@08/04/20 11/20/20 09/07/20 History albuterol sulfate 2 inh INHALATION Q4H PRN #18 gm 08/04/20 11/20/20 09/07/20 Rx meloxicam 7.5 mg PO DAILY PRN 08/04/20 11/20/20 09/07/20 History folic acid 1 mg PO DAILY@08/23/20 11/20/20 09/07/20 History furosemide [Lasix] 60 mg PO BID@,08/23/20 11/20/20 09/07/20 History thiamine mononitrate (vit B1) 100 mg PO DAILY@08/23/20 11/20/20 09/07/20 History [Vitamin B-1 (mononitrate)] Mcgrath boot #1 ea 09/01/20 11/20/20 Unknown Rx fluticasone propionate See Rx Instructions .ROUTE .COMPLEX 09/08/20 11/20/20 Unknown History Eliezer Hagen #1 ea NS 10/02/20 11/20/20 Unknown Rx doxycycline hyclate 100 mg tablet 100 mg PO BID #28 tab 11/14/20 11/20/20 Unknown Rx Allergies Allergy/AdvReac Type Severity Reaction Status Date / Time Penicillins Allergy ALGY-Difficulty Verified 11/23/20 00:26 Breathing Sulfa (Sulfonamide Allergy Unknown Verified 11/23/20 00:26 Antibiotics) PFSH Acute PFSH: Medical History (Updated 11/23/20 @ 04:47 by Girish Hansen MD) Atrial fibrillation and flutter Atrial fibrillation with RVR Charcot's arthropathy End-stage liver disease Erectile dysfunction History of abdominal paracentesis Hx of esophageal varices Neuropathy Peyronie disease PVD (peripheral vascular disease) Surgical History H/O colonoscopy 10-12 yrs H/O esophagogastroduodenoscopy History of tonsillectomy Hx of umbilical hernia repair Hx of vasectomy Status post surgery (07/05/20) peritoneal catheter for ascites Family History Grandfather CAD (coronary artery disease) Grandmother CAD (coronary artery disease) Cancer Father Cancer Denies family history of Anesthesia complication Bleeding disorder Social History Smoking and tobacco status: former smoker Alcohol intake: current Alcohol intake frequency: 3 or more drinks per day Alcohol type: beer Adopted: No Caregiver/support person: No Lives independently: No Marital status: Current occupational status: employed History of recent travel: No Current gender identity: Male Vitals/I&O/Wt Last Vital Signs Temp 98.2 F 11/23/20 00:23 Pulse 98 11/23/20 03:55 Resp 18 11/23/20 03:55 BP 108/65 11/23/20 03:55 Pulse Ox 98 11/23/20 03:55 11/22/20 11/22/20 11/23/20 14:59 22:59 06:59 Intake Total 100 / 100 Balance 100 / 100 Weight last 48 hrs Weight 127.006 kg Physical Exam Const: COMMON NORMALS: no acute distress and patient oriented x3 GENERAL APPEARANCE: cooperative and comfortable HENMT: COMMON NORMALS: normocephalic HEAD & SCALP: normocephalic Eye: COMMON NORMALS: Equal, round and reactive pupils present and EOMs intact bilaterally GENERAL EYE: appearance normal, both eyes and all related structures PUPIL: Yes Equal, round and reactive pupils present Neck/C-Spine: COMMON NORMALS: full ROM, no lymphadenopathy, no JVD and Thyroid normal THYROID: Thyroid normal Lymph: LYMPHATIC: no lymphadenopathy noted Resp: COMMON NORMALS: normal respiratory effort, No retractions, No use of accessory muscles and clear to auscultation bilaterally AUSCULTATION: diminished lung sounds on the left Cardio: COMMON NORMALS: no JVD, regular rate, regular rhythm, S1 normal heart sound present, S2 normal heart sound present, No gallops present (Cardio), No clicks present (Cardio) and No murmurs present (Cardio) RATE: regular rate RHYTHM: regular rhythm HEART SOUNDS: S1 normal heart sound present and S2 normal heart sound present GI: COMMON NORMALS: Normal to inspection, nondistended, normoactive bowel sounds present, Soft to palpation, non-tender and No hepatosplenomegaly present INSPECTION: Yes abdominal distension PALPATION: Yes Soft to palpation Extremity: COMMON NORMALS: normal to inspection, full ROM and no pedal edema OTHER: Left lower extremity wrapped Neuro: COMMON NORMALS: patient oriented x3, CN's II-XII intact bilaterally, moves all extremities and no focal motor deficits Psych: COMMON NORMALS: mental status grossly normal, Normal thought process present and cooperative THOUGHT PROCESS: Normal thought process present Data : 11/23/20 00:39 11/23/20 00:39 Micro: Microbiology 11/23/20 01:30 Blood Culture - Preliminary Blood SPECIMEN COLLECTED 11/23/20 01:07 Blood Culture - Preliminary Blood SPECIMEN COLLECTED A&P Assessment and plan (1) Pleural effusion: Large left pleural effusion 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 Plan: -Consult radiology in the morning for thoracocentesis Status: Acute (2) Pneumonia: -Patient has consolidation of left upper and left lower lobes, possible atelectasis versus pneumonia -Patient already received vancomycin aztreonam -Switch to Levaquin Status: Acute (3) Ascites: Recurrent ascites secondary to alcoholic liver cirrhosis, peritoneal catheter in place, was drained in the ER Status: Acute (4) Hyponatremia: Acute on chronic hyponatremia secondary to liver cirrhosis, beers Poto jefferson, Lasix noncompliance Plan: -Continue Lasix 60 twice daily, fluid restrictions, serum sodiums every 6 hours Status: Acute (5) Fracture of fourth metatarsal bone of left foot: Status: Acute Qualifiers: Encounter type: subsequent encounter Fracture type: closed Fracture alignment: nondisplaced Fracture healing: with routine healing Qualified Code(s): S92.345D - Nondisplaced fracture of fourth metatarsal bone, left foot, subsequent encounter for fracture with routine healing (6) End-stage liver disease: Status: Chronic (7) ETOH abuse: [facility] protocol Status: Chronic Additional A&P Information PT OT, full code, SCDs for DVT prophylaxis, anticoagulation contraindicated given liver cirrhosis and varices Attestations Medical Necessity Statement*: Patient requires hospitalization, inpatient, greater than 2 midnights, for large left pleural effusion, pneumonia, ascites, ethanol abuse Coding Level of Care Code Acute 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
--- NOTE | 2020-11-23 04:48 | US_ITS ---
WS: [id number] ULTRASOUND-GUIDED THORACENTESIS CLINICAL INFORMATION: left pleural eff COMPARISON: None. PROCEDURE: Informed consent: The risks, benefits, and alternatives of the procedure were discussed with the doug ent. Verbal and written consent was obtained. Timeout: A timeout was performed to confirm the correct patient, procedure, and site. Site: LEFT Preparation: A suitable skin site was identified. The patient was prepped and draped in usual sterile fashion. Lidocaine 1% was used for local anesthesia. Catheter: 4 Bengali One-Step catheter. Fluid Volume: 1000 ml Color: Yellow Discarded safely. Complications: None. US/ thoracentesis [id number] IMPRESSION: Uncomplicated ultrasound-guided thoracentesis. Removal 1000cc pleural fluid
[2020-11-23] MEDS: TRAMadol 50 mg Tablet PO (06:02)
[2020-11-23] MEDS: dilTIAZem 60 mg Tablet 120 MG PO ×3 (06:02→22:26)
[2020-11-23] MEDS: FUROsemide 40 mg Tablet 60 MG PO ×2 (06:02→16:33)
[2020-11-23 06:15] LABS: Procalcitonin 0.14 ng/mL (0-0.5)
[2020-11-23 06:27] LABS: Sodium 120 mmol/L (136-145)
[2020-11-23 06:55] LABS: Thyroid Stimulating Hormone 6.81 uIU/mL (0.27-4.20)
[2020-11-23] MEDS: levofloxacin-dextrose 5 % 750 MG/150 ML PREMIX 100 MG IV (09:14)
[2020-11-23] MEDS: multivitamin therapeutic Tablet 1 TAB PO (09:14)
[2020-11-23] MEDS: potassium chloride ER 20 mEq Tablet PO ×2 (09:14→16:34)
[2020-11-23] MEDS: pantoprazole DR 40 mg Tablet PO (09:14)
[2020-11-23] MEDS: thiamine 100 mg Tablet PO (09:14)
[2020-11-23] MEDS: folic acid 1 mg Tablet PO (09:14)
[2020-11-23 09:19] LABS: INR 1.26 (0.8-1.2)
--- NOTE | 2020-11-23 11:22 | PM.PN ---
Subjective Subjective: Interval history: Overnight labs and H&P reviewed, underwent thoracentesis with removal of 1 L of fluid earlier today. Tolerated procedure well Medications: Reviewed: Yes Vitals/I&O/Wt Last Vital Signs Temp 97.8 F 11/23/20 08:00 Pulse 80 11/23/20 10:00 Resp 23 H 11/23/20 10:00 BP 110/74 11/23/20 08:00 Pulse Ox 98 11/23/20 10:00 11/22/20 11/23/20 11/23/20 22:59 06:59 14:59 Intake Total 350 / 350 300 / 300 Balance 350 / 350 300 / 300 Weight last 48 hrs Weight 127.006 kg Data : 11/23/20 Unknown Micro: Microbiology 11/23/20 01:30 Blood Culture - Preliminary Blood SPECIMEN COLLECTED 11/23/20 01:07 Blood Culture - Preliminary Blood SPECIMEN COLLECTED A&P Assessment and plan (1) Pleural effusion: Large left pleural effusion 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 Awaiting pleural fluid analysis Patient reports some improvement, though still complaining of dyspnea, may need more paracentesis, check chest x-ray tomorrow morning anasarca. Status: Acute (2) Pneumonia: -Patient has consolidation of left upper and left lower lobes, possible atelectasis versus pneumonia -Patient already received vancomycin aztreonam -Switch to Levaquin, continue until Gram stain culture and pleural fluid analysis available Status: Acute (3) Ascites: Recurrent ascites secondary to alcoholic liver cirrhosis, peritoneal catheter in place, was drained in the ER, large volume removal to be attempted again today Status: Acute (4) Hyponatremia: Acute on chronic hyponatremia secondary to liver cirrhosis, beers Poto jefferson, Lasix noncompliance Plan: -Continue Lasix 60 twice daily, fluid restrictions, serum sodiums every 6 hours Status: Acute (5) Fracture of fourth metatarsal bone of left foot: Status: Acute Qualifiers: Encounter type: subsequent encounter Fracture type: closed Fracture alignment: nondisplaced Fracture healing: with routine healing Qualified Code(s): S92.345D - Nondisplaced fracture of fourth metatarsal bone, left foot, subsequent encounter for fracture with routine healing (6) End-stage liver disease: Status: Chronic (7) ETOH abuse: [facility] protocol Status: Chronic Additional A&P Information PT OT, full code, SCDs for DVT prophylaxis, anticoagulation contraindicated given liver cirrhosis and varices Attestations Medical Necessity Statement*: Status post thoracentesis today, monitor for improvement in respiratory status, may need repeat thoracentesis pending chest x-ray in a.m. 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
[2020-11-23] MEDS: ondansetron 2 mg/ML SDV 2 mL 4 MG IVP (11:29)
[2020-11-23] MEDS: morphine 4 mg/mL SDV 1 mL 2 MG IVP (11:29)
--- NOTE | 2020-11-23 11:43 | PC.NURSE ---
Consent signed for thoracentesis. Patient assisted to the sitting position for procedure. Will be present in the room, monitoring the patient through out the procedure.
[2020-11-23 11:50] LABS: Sodium 118 mmol/L (136-145)
--- NOTE | 2020-11-23 11:57 | XR_ITS ---
WS: [id number] CHEST XRAY TECHNIQUE: Portable chest. CLINICAL INFORMATION: post thoracentesis COMPARISON: November 23, 2020 FINDINGS: Heart: Cardiomegaly. Lungs: Improved left pleural effusion status post thoracentesis. Small residual left pleural effusion with subsegmental atelectasis. Right lung is well aerated. No pneumothorax. Bones: Normal visualized bony structures. XR/XR chest 1V [id number] IMPRESSION: 1. Improved left pleural effusion status post thoracentesis. Residual small la yering left pleural effusion with subsegmental atelectasis. 2. No pneumothorax.
[2020-11-23] MEDS: TRAMadol 50 mg Tablet 100 MG PO (14:28)
[2020-11-23] MEDS: LORazepam 2 mg Tablet PO (14:29)
[2020-11-23 15:09] LABS: Appearance, Pleural Fluid CLEAR (CLEAR); Color, Pleural Fluid Colorless (Pale Yellow); Creatinine Body Fluid 1.07 (0.7-1.2); Pleural Fluid Albumin 0.3 g/dL; Triglycerides, Pleural Fluid 52 mg/dL; WBC Pleural Fluid 92 /uL (0-1000)
[2020-11-23 15:10] LABS: LDH Pleural Fluid 38 U/L; Mononuclear %, Pleural Fluid 71 %; PATH Referal YES; Polynuclear Cells, Pleural % 29 %; Total Protein Pleural Fluid 0.6 g/dL
[2020-11-23] MEDS: ferrous sulfate EC 325 mg Tablet PO (16:33)
[2020-11-23] MEDS: LORazepam 2 mg/mL INJ 1 mL IM (16:46)
[2020-11-23 17:53] LABS: Sodium 116 mmol/L (136-145)
[2020-11-23 23:07] LABS: Sodium 118 mmol/L (136-145)
[2020-11-24] VITALS (11 sets, daily range): BP systolic 121–160; BP diastolic 63–89; PULSE 78–93; RESP 14–20; TEMP 36.4–36.9; O2SAT 93–96
[2020-11-24] MEDS: TRAMadol 50 mg Tablet 100 MG PO ×2 (00:36→16:20)
[2020-11-24] MEDS: LORazepam 2 mg Tablet PO (03:19)
[2020-11-24 05:13] LABS: Basophils % 0.4 %; Eosinophils % 0.4 %; Hematocrit 30.6 % (42.0-52.0); Hemoglobin 10.5 g/dL (11.7-16.6); Lymphocytes # 0.7 10^3/uL (0.8-4.8); Lymphocytes % 10.4 %; Mean Corpuscular HGB Conc 34.3 g/dL (30.0-36.0); Mean Corpuscular Hemoglobin 32.8 pg (28.0-34.0); Mean Corpuscular Volume 95.6 fL (80-94); Mean Platelet Volume 8.9 fL (7.4-10.4); Monocytes # 0.8 10^3/uL (0.2-0.9); Neutrophils # 5.35 10^3/uL (1.8-7.7); Neutrophils % 77.2 %; Nucleated Red Blood Cells % 0 %; Platelet Count 158 10^3/cmm (130-400); White Blood Count 6.9 10^3/uL (4.0-10.0)
[2020-11-24] MEDS: FUROsemide 40 mg Tablet 60 MG PO ×2 (05:21→16:20)
[2020-11-24] MEDS: dilTIAZem 60 mg Tablet 120 MG PO ×3 (05:22→20:53)
[2020-11-24 05:46] LABS: INR 1.29 (0.8-1.2)
[2020-11-24 05:57] LABS: Alanine Aminotransferase 21 U/L (0-41); Albumin Level 2.7 g/dL (3.5-5.2); Alkaline Phosphatase 144 IU/L (40-130); Ammonia 65 umol/L (16-60); Anion Gap 10.7 (5-19); Aspartate Amino Transferase 34 U/L (0-40); Blood Urea Nitrogen 9 mg/dL (6-20); Calcium 7.9 mg/dL (8.5-10.5); Carbon Dioxide 29 mmol/L (22-29); Chloride 83 mmol/L (98-107); Creatinine Clr Calc Pharmacy 134.7033; Globulin 3.2 g/dL (1.3-4.6); Glomerular Filtration Rate 69.2 mL/min (90-130); Glucose 92 mg/dL (65-115); Magnesium 1.5 mg/dL (1.7-2.3); Osmolality Calculated 244 mOsm/kg (285-295); Phosphorus 3.6 mg/dL (2.5-4.5); Potassium 4.7 mmol/L (3.5-5.1); Total Bilirubin 2.3 mg/dL (0.15-1.2); Total Protein 5.9 g/dL (6.6-8.7)
[2020-11-24 06:00] LABS: Sodium 118 mmol/L (136-145)
[2020-11-24] MEDS: thiamine 100 mg Tablet PO (12:25)
[2020-11-24] MEDS: potassium chloride ER 20 mEq Tablet PO ×2 (12:26→16:19)
[2020-11-24] MEDS: multivitamin therapeutic Tablet 1 TAB PO (12:26)
[2020-11-24] MEDS: fluticasone nasal spray 16gm Btl 1 SPRAY INTRANASAL (12:26)
[2020-11-24] MEDS: levofloxacin-dextrose 5 % 750 MG/150 ML PREMIX 100 MG IV (12:26)
[2020-11-24] MEDS: pantoprazole DR 40 mg Tablet PO (12:26)
[2020-11-24] MEDS: folic acid 1 mg Tablet PO (12:26)
--- NOTE | 2020-11-24 13:22 | XR_ITS ---
WS: [id number] Portable AP upright chest, 11/24/2020 Clinical Data: f/up pleural effusion Comparison: Portable chest, 11/23/2020. Findings: The patient has reaccumulated the left pleural effusion. There is only a small amount of ae rated left lung. The right lung is clear. XR/XR chest 1V portable [id number] Impression: Increasing left pleural effusion.
--- NOTE | 2020-11-24 14:04 | PC.CHAP ---
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 illustrator set visit [] Patient/Family/Request visit [] Outpatient visit [] Follow-up visit [] Physician referral [] Code/Alert [] Routine visit [] Staff referral [] Actively dying [xx] Patient sleeping [] Family support [] [] Out of room [] Palliative care [] [] Receiving care in room [] Pre-surgical visit [] Trauma [] Long length of stay [] ICU visit [] Other: Relational/Emotional Strength [] Patient feels connected with others/family/visitors/staff [] Distress [] Loneliness/isolation [] Abandonment Spirituality of Patient [] Person of Jana [] Attends Voodoo of their Jana [] Believes in Prayer [] Reads Bible or Taoism materials [] There are Spiritual issues to be addressed Contact Worker Lithography Interventions [] Prayer [] Active listening [] Non-anxious presence [] Spiritual/emotional support [] Crisis/trauma care [] Spiritual counseling [] Bereavement support [] Provided bereavement packet [] Provided Bible/devotional materials [] Provided toy/stuffed animal, coloring book to patient or family member [] Provided Communion [] Anointing/[place] [] Salvation [] Completed spiritual assessment [] Other: Impact on Illness or Injury [] Angry [] Fearful [] Anxious [] Often cries [] Exhaustion [] Unable to work [] Unable to attend christianity [] Unable to walk/stand [] Unable to read [] Unable to drive [] Unable to eat/drink [] Unable to sleep [] Unable to be with family [] Patient intubated [] Other: Summary Patient sedated. Follow up needed Time spent with patient 2 minutes
[2020-11-24] MEDS: ferrous sulfate EC 325 mg Tablet PO (16:20)
--- NOTE | 2020-11-24 17:21 | P.PN_ITS ---
Subjective Subjective: Interval history: States that breathing is improved, continues on 2 L/min nasal cannula, transudative fluid per lights criteria, patient unable to drain from his peritoneal drain yesterday, will attempt again today. Chest x- ray shows increasing left pleural effusion, reaccumulated. Medications: Reviewed: Yes Vitals/I&O/Wt Last Vital Signs Temp 98.4 F 11/24/20 16:00 Pulse 78 11/24/20 16:00 Resp 18 11/24/20 16:00 BP 128/63 11/24/20 16:00 Pulse Ox 94 11/24/20 15:30 11/24/20 11/24/20 11/24/20 06:59 14:59 22:59 Intake Total 1180 / 1180 150 / 1330 Output Total 300 / 2400 200 / 200 225 / 425 Balance -300 / -1450 980 / 980 -75 / 905 Weight last 48 hrs Weight 127.006 kg Physical Exam Narrative: EXAM NARRATIVE: GEN: Awake, alert and oriented, no acute distress, patient has been noted to be lying flat, no gross respiratory distress, oxygen requirements remain stable CVS: S1S2 N RS: Reduced air entry at lung bases bilaterally Abd: Soft, nt/nd , bs+ 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: 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 neuro deficits Extremities anasarca present Data : 11/24/20 04:58 11/24/20 04:58 Micro: Microbiology 11/23/20 Unknown Gram Stain - Final Pleural Fluid Body Fluid Culture - Preliminary 11/23/20 01:30 Blood Culture - Preliminary Blood NEGATIVE TO DATE 11/23/20 01:07 Blood Culture - Preliminary Blood NEGATIVE TO DATE A&P Assessment and plan (1) Pleural effusion: Large left pleural effusion 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 Patient reports that he has been noncompliant with draining the peritoneum, he often goes 2 to 3 weeks without draining anything. Lites criteria shows transudate of effusion, no other signs of pneumonia, discontinue empiric antibiotics. Plan to perform large-volume paracentesis from already existing peritoneal drain. Status: Acute (2) Pneumonia: -Pneumonia is now excluded. Pleural fluid analysis does not show exudative effusion. Fluid analysis is with transudate of effusion. Discontinue antibiotics. Status: Acute (3) Ascites: Recurrent ascites secondary to alcoholic liver cirrhosis, peritoneal catheter in place, was drained in the ER, large volume removal to be attempted again today, patient did not perform paracentesis as advised yesterday. He has been counseled extensively that translocation of fluid between the abdomen and will pleural can only be effectively reduced if he performs frequent paracentesis. Status: Acute (4) Hyponatremia: Acute on chronic hyponatremia secondary to liver cirrhosis, beers Poto jefferson, Lasix noncompliance Plan: -Continue Lasix 60 twice daily, fluid restrictions Status: Acute (5) Fracture of fourth metatarsal bone of left foot: Status: Acute Qualifiers: Encounter type: subsequent encounter Fracture type: closed Fracture alignment: nondisplaced Fracture healing: with routine healing Qualified Code(s): S92.345D - Nondisplaced fracture of fourth metatarsal bone, left foot, subsequent encounter for fracture with routine healing (6) End-stage liver disease: Status: Chronic (7) ETOH abuse: [facility] protocol Status: Chronic Additional A&P Information PT OT, full code, SCDs for DVT prophylaxis, anticoagulation contraindicated given liver cirrhosis and varices Attestations Medical Necessity Statement*: Large-volume paracentesis today, monitor respiratory status over the next 24 hours, discontinue antibiotics Coding Level of Care Code 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
--- NOTE | 2020-11-24 19:09 | PC.OT ---
OT tx attempted. Pt lying flat in bed and declines to participate in OT stating he was not feeling well and having difficulty breathing. Nursing came in to start an IV. Therapist talking to pt's mother who was in the room, regarding pts bathing setup at home. Mother asking if son could get help bathing when he goes home as he is afraid of transferring by himself. OT was planning on working with pt on bath bench transfers today but he declined. OT to try again tomorrow to work on bath bench transfers to assess pts skill level and make recommendations for increased safety.
[2020-11-25] VITALS (12 sets, daily range): BP systolic 111–129; BP diastolic 72–84; PULSE 81–102; RESP 17–20; TEMP 36.4–37.2; O2SAT 92–97
[2020-11-25 05:28] LABS: Ammonia 30 umol/L (16-60)
[2020-11-25 05:29] LABS: Alanine Aminotransferase 19 U/L (0-41); Albumin Level 2.6 g/dL (3.5-5.2); Alkaline Phosphatase 134 IU/L (40-130); Aspartate Amino Transferase 35 U/L (0-40); Blood Urea Nitrogen 13 mg/dL (6-20); Carbon Dioxide 30 mmol/L (22-29); Chloride 81 mmol/L (98-107); Creatinine Clr Calc Pharmacy 123.4781; Globulin 3.2 g/dL (1.3-4.6); Glomerular Filtration Rate 62.6 mL/min (90-130); Glucose 95 mg/dL (65-115); Magnesium 1.6 mg/dL (1.7-2.3); Osmolality Calculated 244 mOsm/kg (285-295); Phosphorus 3.2 mg/dL (2.5-4.5); Total Bilirubin 2.3 mg/dL (0.15-1.2); Total Protein 5.8 g/dL (6.6-8.7)
[2020-11-25 05:32] LABS: Basophils % 0.6 %; Eosinophils % 0.6 %; Hematocrit 29.8 % (42.0-52.0); Hemoglobin 10.1 g/dL (11.7-16.6); Lymphocytes # 0.9 10^3/uL (0.8-4.8); Lymphocytes % 12.9 %; Mean Corpuscular HGB Conc 33.9 g/dL (30.0-36.0); Mean Corpuscular Hemoglobin 32.8 pg (28.0-34.0); Mean Corpuscular Volume 96.8 fL (80-94); Mean Platelet Volume 9.2 fL (7.4-10.4); Monocytes # 0.7 10^3/uL (0.2-0.9); Monocytes % 11.1 %; Neutrophils % 74.3 %; Nucleated Red Blood Cells % 0 %; Platelet Count 138 10^3/cmm (130-400); Red Blood Count 3.08 10^6/uL (4.1-5.3); Red Cell Distribution Width 14.1 % (12.1-15.1); White Blood Count 6.6 10^3/uL (4.0-10.0)
[2020-11-25 05:35] LABS: Anion Gap 11.2 (5-19); Potassium 5.2 mmol/L (3.5-5.1)
[2020-11-25 05:37] LABS: Sodium 117 mmol/L (136-145)
[2020-11-25] MEDS: fluticasone nasal spray 16gm Btl 1 SPRAY INTRANASAL (08:17)
[2020-11-25] MEDS: dilTIAZem 60 mg Tablet 120 MG PO ×3 (08:17→23:58)
[2020-11-25] MEDS: multivitamin therapeutic Tablet 1 TAB PO (08:17)
[2020-11-25] MEDS: FUROsemide 40 mg Tablet 60 MG PO ×2 (08:17→21:26)
[2020-11-25] MEDS: TRAMadol 50 mg Tablet 100 MG PO ×2 (08:18→21:29)
[2020-11-25] MEDS: levofloxacin-dextrose 5 % 750 MG/150 ML PREMIX 100 MG IV (08:19)
[2020-11-25] MEDS: potassium chloride ER 20 mEq Tablet PO (10:53)
[2020-11-25] MEDS: thiamine 100 mg Tablet PO (10:53)
[2020-11-25] MEDS: pantoprazole DR 40 mg Tablet PO (10:53)
--- NOTE | 2020-11-25 15:07 | P.PN_ITS ---
Subjective Subjective: Interval history: Patient stated he felt slightly better today after paracentesis, was weaning off oxygen. No fever, or chills overnight. No nausea or vomiting. 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 Extremities anasarca present Data : 11/25/20 04:40 11/25/20 04:40 Micro: Microbiology 11/23/20 Unknown Gram Stain - Final Pleural Fluid Body Fluid Culture - Preliminary A&P Assessment and plan (1) Pleural effusion: Large recurrent left pleural effusion s/p thoracentesis Repeat chest-xray on 11/24 - increasing left pleural effusion Weaning off oxygen Plan for repeat thoracentesis outpatient - to follow up with Home o2 eval prior to d/c Repeat chest x-ray in am No clear evidence of underlying infection Monitoring off abx Status: Acute (2) Pneumonia: -Low suspicion of underlying pneumonia - Fluid consistent with transudative - Continue to monitor off abx Status: Acute (3) Ascites: S/p Paracentesis Status: Acute (4) Hyponatremia: Acute on chronic hyponatremia secondary to liver cirrhosis, beers Poto jefferson, Lasix noncompliance Plan: -Continue Lasix 60 twice daily, fluid restrictions -Consider addition of aldactone one hyperkalemia resolved. -May also consider adding -valptan at discharge - not on hospital formulary Status: Acute (5) Fracture of fourth metatarsal bone of left foot: Status: Acute Qualifiers: Encounter type: subsequent encounter Fracture type: closed Fracture alignment: nondisplaced Fracture healing: with routine healing Qualified Code(s): S92.345D - Nondisplaced fracture of fourth metatarsal bone, left foot, subsequent encounter for fracture with routine healing (6) End-stage liver disease: Status: Chronic (7) ETOH abuse: [facility] protocol Status: Chronic (8) Hyponatremia with excess extracellular fluid volume: Management as noted abovel Status: Acute (9) Hyperkalemia: Kayelelate 15g PO x 1 Status: Acute Additional A&P Information PT OT, full code, SCDs for DVT prophylaxis, anticoagulation contraindicated given liver cirrhosis and varices Attestations Medical Necessity Statement*: Will require further hospitalization for management of anasarca, hyperkalemia, hyponatremia Time Spent in Patient Care: Greater than 35 minutes (>than 50% of time spent in counselling and/or direct pt care on unit) . 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
[2020-11-25] MEDS: ferrous sulfate EC 325 mg Tablet PO (17:19)
[2020-11-26] VITALS (10 sets, daily range): BP systolic 101–165; BP diastolic 63–77; PULSE 79–102; RESP 17–20; TEMP 36.3–37.1; O2SAT 95–98
[2020-11-26 06:47] LABS: INR 1.28 (0.8-1.2)
[2020-11-26 07:02] LABS: Alanine Aminotransferase 16 U/L (0-41); Albumin Level 2.4 g/dL (3.5-5.2); Alkaline Phosphatase 131 IU/L (40-130); Anion Gap 10.4 (5-19); Aspartate Amino Transferase 32 U/L (0-40); Blood Urea Nitrogen 15 mg/dL (6-20); Calcium 8.2 mg/dL (8.5-10.5); Carbon Dioxide 28 mmol/L (22-29); Chloride 83 mmol/L (98-107); Creatinine Clr Calc Pharmacy 123.4781; Globulin 3.3 g/dL (1.3-4.6); Glomerular Filtration Rate 62.6 mL/min (90-130); Glucose 95 mg/dL (65-115); Magnesium 1.6 mg/dL (1.7-2.3); Osmolality Calculated 245 mOsm/kg (285-295); Phosphorus 3.2 mg/dL (2.5-4.5); Potassium 4.4 mmol/L (3.5-5.1); Total Bilirubin 1.5 mg/dL (0.15-1.2); Total Protein 5.7 g/dL (6.6-8.7)
[2020-11-26 07:05] LABS: Sodium 117 mmol/L (136-145)
--- NOTE | 2020-11-26 07:06 | PC.NURSE ---
notified Dr Mcgovern that patient has critical Sodium of 117.
[2020-11-26 07:10] LABS: Ammonia 65 umol/L (16-60)
[2020-11-26] MEDS: dilTIAZem 60 mg Tablet 120 MG PO ×3 (09:19→23:27)
[2020-11-26] MEDS: thiamine 100 mg Tablet PO (09:19)
[2020-11-26] MEDS: folic acid 1 mg Tablet PO (09:19)
[2020-11-26] MEDS: fluticasone nasal spray 16gm Btl 1 SPRAY INTRANASAL (09:19)
[2020-11-26] MEDS: FUROsemide 40 mg Tablet 60 MG PO ×2 (09:20→19:21)
[2020-11-26] MEDS: pantoprazole DR 40 mg Tablet PO (09:20)
[2020-11-26] MEDS: multivitamin therapeutic Tablet 1 TAB PO (09:20)
[2020-11-26 09:34] LABS: Basophils # 0.1 10^3/uL (0.0-0.1); Basophils % 0.7 %; Eosinophils # 0.1 10^3/uL (0.0-0.8); Eosinophils % 1.4 %; Hematocrit 32.5 % (42.0-52.0); Lymphocytes # 0.8 10^3/uL (0.8-4.8); Mean Corpuscular HGB Conc 30.8 g/dL (30.0-36.0); Mean Corpuscular Hemoglobin 33.2 pg (28.0-34.0); Mean Platelet Volume 9.2 fL (7.4-10.4); Monocytes # 0.8 10^3/uL (0.2-0.9); Monocytes % 11.7 %; Neutrophils % 74.5 %; Nucleated Red Blood Cells % 0 %; Platelet Count 124 10^3/cmm (130-400); Red Blood Count 3.01 10^6/uL (4.1-5.3); Red Cell Distribution Width 14.4 % (12.1-15.1); White Blood Count 7.1 10^3/uL (4.0-10.0)
[2020-11-26 10:06] LABS: Albumin Level 2.2 g/dL (3.5-5.2); Alkaline Phosphatase 116 IU/L (40-130); Blood Urea Nitrogen 14 mg/dL (6-20); Calcium 7.9 mg/dL (8.5-10.5); Carbon Dioxide 24 mmol/L (22-29); Chloride 83 mmol/L (98-107); Globulin 3.2 g/dL (1.3-4.6); Glomerular Filtration Rate 57.1 mL/min (90-130); Glucose 109 mg/dL (65-115); Osmolality Calculated 241 mOsm/kg (285-295); Total Bilirubin 1.3 mg/dL (0.15-1.2); Total Protein 5.4 g/dL (6.6-8.7)
[2020-11-26 10:12] LABS: Alanine Aminotransferase 16 U/L (0-41); Anion Gap 12.4 (5-19); Aspartate Amino Transferase 38 U/L (0-40); Potassium 4.4 mmol/L (3.5-5.1)
[2020-11-26 10:13] LABS: Sodium 115 mmol/L (136-145)
--- NOTE | 2020-11-26 10:14 | PC.NURSE ---
Patient Sodium level is 115 this morning. sba underwriter notified Dr Watson
--- NOTE | 2020-11-26 11:35 | PC.NURSE ---
Notified Dr Watson patient has order for Kayexalate scheduled for this morning. He is getting Lasix also and his potassium is 4.4. Just wanted to make sure you wanted him to have the Kayexalate this morning. Per Dr Watson, hold Kayexalate this morning
[2020-11-26] MEDS: ferrous sulfate EC 325 mg Tablet PO (16:23)
--- NOTE | 2020-11-26 16:44 | PC.NURSE ---
patient requesting lidocaine shot for shoulder and neck. Clipper Machine notified Dr Watson of request. Per Dr Watson, we don't do lidocaine shots inpatient. Patient then requesting additional pain meds and states Tramadol doesn't work. Dr Watson said to ask patient if now that his mother is here if he is going to be able to take him home today. Clipper Machine talked to patient and he said his mother wouldn't have enough time to take him home prior to going to sikhism so he said he was staying. Clipper Machine notified Dr Watson of response.
--- NOTE | 2020-11-26 17:18 | PM.PN ---
Subjective Subjective: Interval history: Sodium dropped to 115 today. No mental status changes. Drained approximately 4 L of peritoneal fluid yesterday. Currently on room air. 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 Extremities anasarca present Data : 11/26/20 09:16 11/26/20 09:16 Micro: Microbiology 11/23/20 Unknown Mycobacterial Smear - Preliminary Body Fluids - Pleura 11/23/20 Unknown Gram Stain - Final Pleural Fluid Body Fluid Culture - Preliminary A&P Assessment and plan (1) Pleural effusion: Large left pleural effusion 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 Patient reports that he has been noncompliant with draining the peritoneum, he often goes 2 to 3 weeks without draining anything. Lites criteria shows transudate of effusion, no other signs of pneumonia, discontinued empiric antibiotics. Perform paracentesis on November 24 with removal of 4 L of fluid. Attempt again today Chest x-ray in a.m. Discussed with patient that we will arrange for outpatient follow-up with pulmonology for follow-up of the left pleural effusion and if he needs further larger volume thoracentesis this can be assessed after the consultation, however patient states that if he leaves the hospital he does not have a way of returning for outpatient follow-up and would rather get pulm opinion as inpatient. continue lasix Status: Acute (2) Pneumonia: -Low suspicion of underlying pneumonia - Fluid consistent with transudative - Continue to monitor off abx Status: Acute (3) Ascites: S/p Paracentesis on 11/24 Status: Acute (4) Hyponatremia: Acute on chronic hyponatremia secondary to liver cirrhosis, beers Poto jefferson, Lasix noncompliance Plan: -Continue Lasix 60 twice daily, fluid restrictions -holding aldactone due to hyperkalemia 5.2 on 11/25 - start po salt tablets once daily as reduced to 115 today Status: Acute (5) Fracture of fourth metatarsal bone of left foot: Status: Acute Qualifiers: Encounter type: subsequent encounter Fracture type: closed Fracture alignment: nondisplaced Fracture healing: with routine healing Qualified Code(s): S92.345D - Nondisplaced fracture of fourth metatarsal bone, left foot, subsequent encounter for fracture with routine healing (6) End-stage liver disease: Status: Chronic (7) ETOH abuse: [facility] protocol Status: Chronic (8) Hyponatremia with excess extracellular fluid volume: Management as noted abovel Status: Acute (9) Hyperkalemia: Status: Acute Additional A&P Information PT OT, full code, SCDs for DVT prophylaxis, anticoagulation contraindicated given liver cirrhosis and varices Attestations Medical Necessity Statement*: Na dropped 115, added salt supplements, pulomonary eval to assess for further thoracentsis Coding Level of Care Code Acute Concrete 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
[2020-11-26] MEDS: TRAMadol 50 mg Tablet 100 MG PO ×2 (18:10→23:29)
[2020-11-26] MEDS: sodium chloride 1 gm Tablet PO (18:10)
[2020-11-27] VITALS (7 sets, daily range): BP systolic 115–135; BP diastolic 57–72; PULSE 88–102; RESP 17–19; TEMP 35.8–36.9; O2SAT 92–98
--- NOTE | 2020-11-27 04:00 | XR_ITS ---
WS: [id number] XR chest 1V portable [id number] REASON FOR EXAM: left pleural effusion FINDINGS: Compared to the previous examination of 11/24/2020 there appears to be a decreased amount of pleural f luid and an increased amount of expanded lung. Considerable pleural effusion and lung atelectasis rem ain in the left hemithorax. The right hemithorax remains clear. XR/XR chest 1V portable [id number] IMPRESSION: Left pleural effusion as above.
[2020-11-27 06:42] LABS: Alanine Aminotransferase 16 U/L (0-41); Albumin Level 2.7 g/dL (3.5-5.2); Alkaline Phosphatase 115 IU/L (40-130); Anion Gap 11.5 (5-19); Aspartate Amino Transferase 31 U/L (0-40); Blood Urea Nitrogen 13 mg/dL (6-20); Calcium 8.2 mg/dL (8.5-10.5); Carbon Dioxide 32 mmol/L (22-29); Chloride 84 mmol/L (98-107); Globulin 3.1 g/dL (1.3-4.6); Glomerular Filtration Rate 57.1 mL/min (90-130); Glucose 90 mg/dL (65-115); Osmolality Calculated 258 mOsm/kg (285-295); Potassium 3.5 mmol/L (3.5-5.1); Sodium 124 mmol/L (136-145); Total Bilirubin 1.2 mg/dL (0.15-1.2); Total Protein 5.8 g/dL (6.6-8.7)
[2020-11-27] MEDS: dilTIAZem 60 mg Tablet 120 MG PO (08:27)
[2020-11-27] MEDS: multivitamin therapeutic Tablet 1 TAB PO (08:28)
[2020-11-27] MEDS: FUROsemide 40 mg Tablet 60 MG PO (08:28)
[2020-11-27] MEDS: pantoprazole DR 40 mg Tablet PO (08:28)
[2020-11-27] MEDS: sodium chloride 1 gm Tablet PO (08:28)
[2020-11-27] MEDS: folic acid 1 mg Tablet PO (08:29)
[2020-11-27] MEDS: thiamine 100 mg Tablet PO (08:29)
[2020-11-27] MEDS: fluticasone nasal spray 16gm Btl 1 SPRAY INTRANASAL (08:32)
[2020-11-27] MEDS: TRAMadol 50 mg Tablet 100 MG PO (08:32)
--- NOTE | 2020-11-27 09:30 | PM.CONSULT ---
Providers/Reason For Consult Consulting Physican/Specialty*: John Del Valle M.D / Pulmonary Critical Care Reason for Consult*: Hepatic Hydrothorax Requesting Physcian: Marlene Watson MD Attending Physician: Matthew Koroma MD Primary Care Provider: Yosvany Segovia MD History of Present Illness History of Present Illness Yosvany Soto is a 55 year old male PMH end-stage liver disease with peritoneal catheter for ascites, h/O of esophageal varices, continued alcohol use last drink yesterday afternoon, h/o atrial fibrillation not on anticoagulation due to risk of bleeding, chronic hyponatremia secondary to liver disease, alcoholism and noncompliance with Lasix therapy, presented to [facility] due to shortness of breath. Patient reported had end-stage liver disease due to chronic alcoholism and had several episodes of paracentesis. He quits taking alcohol for 2 years and did not have much ascitic fluid during those 2 years. Recently started drinking alcohol again and had recurrent ascites for which a peritoneal catheter was placed in [place]. In August 2020 he had left-sided thoracentesis and 2 L of fluid was taken out. Patient reported that he drains his peritoneal catheter infrequently as he does not see any visible ascites. This time during admission imaging showed significant left pleural effusion causing dyspnea requiring 3 L nasal cannula initially and so underwent thoracentesis and 1 L of fluid was removed. Fluid analysis shows transudative and patient was on Lasix and spironolactone. Spironolactone held due to hyperkalemia and also patient had hyponatremia and was getting salt tablets. Mentation is intact since his admission and he denied fevers, no chills, no nausea, no vomiting, no chest pain, no palpitations, no lightheadedness, dizziness, no cough, no known exposure to COVID-19. He does have a fracture of the left foot, managed by Dr. Carrera. Patient aware sure that all of the fluid on the left side was not taken out and wanted to talk to director internal control before he was discharged regarding his pleural effusion and hence consult was placed. Patient seen at bedside today morning. Denied any new complaints and is saturating more than 92% on room air. He is concerned about his left over left pleural effusion and the definitive plan to stop pleural effusion from recurring. Labs and imaging reviewed Review of Systems General: Reports: 10 or more systems reviewed and unremarkable except in HPI and below Meds/Allergies Home Medications and Allergies Home Medications Medication Instructions Recorded Confirmed Last Taken Type ferrous sulfate 325 mg (65 mg 325 mg PO DAILY@01/04/20 11/23/20 09/07/20 History iron) tablet pantoprazole 40 mg tablet,delayed 40 mg PO DAILY@01/04/20 11/23/20 09/07/20 History release potassium chloride 20 mEq 20 meq PO DAILY@01/04/20 11/23/20 09/07/20 History tablet,extended release(part/cryst) sildenafil 100 mg tablet 100 mg PO DAILY PRN 01/04/20 11/23/20 Unknown History vitamin B complex 1 tab PO DAILY@01/04/20 11/23/20 09/07/20 History tadalafil 20 mg tablet 20 mg PO DAILY PRN #20 tab 01/10/20 11/23/20 Unknown Rx tramadol 50 mg PO BID PRN 05/05/20 11/23/20 09/07/20 History diltiazem HCl 120 mg PO Q8H #0 tab 06/17/20 11/23/20 09/07/20 Rx Ocuvite Adult 50 Plus 2 cap PO DAILY@08/04/20 11/23/20 09/07/20 History albuterol sulfate 2 inh INHALATION Q4H PRN #18 gm 08/04/20 11/23/20 09/07/20 Rx folic acid 1 mg PO DAILY@08/23/20 11/23/20 09/07/20 History furosemide [Lasix] 60 mg PO DAILY@08/23/20 11/23/20 09/07/20 History Cachil Dehe boot #1 ea 09/01/20 11/23/20 Unknown Rx fluticasone propionate See Rx Instructions .ROUTE .COMPLEX 09/08/20 11/23/20 Unknown History Cam Walker #1 ea NS 10/02/20 11/23/20 Unknown Rx doxycycline hyclate 100 mg tablet 100 mg PO BID #28 tab 11/14/20 11/23/20 Unknown Rx spironolactone 25 mg PO DAILY@10 11/23/20 11/23/20 Unknown History Allergies Allergy/AdvReac Type Severity Reaction Status Date / Time Penicillins Allergy ALGY-Difficulty Verified 11/23/20 00:26 Breathing Sulfa (Sulfonamide Allergy Unknown Verified 11/23/20 00:26 Antibiotics) Current Medications Current Medications Generic Name Dose Route Start Last Admin Trade Name Freq PRN Reason Stop Dose Admin Albuterol/Ipratropium 3 ml 11/23/20 06:26 11/23/20 06:34 Ipratropium-Albuterol 3 Ml Neb INHALATION 3 ml Q4H.RESPIRATORY PRN Administration SHORTNESS OF BREATH Diltiazem HCl 120 mg 11/23/20 05:30 11/27/20 08:27 Diltiazem 60 Mg Tablet PO 120 mg Q8H DHAVAL Administration Ferrous Sulfate 325 mg 11/23/20 16:00 11/26/20 16:23 Ferrous Sulfate Ec 325 Mg Tablet PO 325 mg DAILY@16 DHAVAL Administration Fluticasone Propionate 1 spray 11/23/20 09:00 11/27/20 08:32 Fluticasone Nasal [place] 16gm Btl INTRANASAL 1 spray DAILY DHAVAL Administration Folic Acid 1 mg 11/23/20 10:00 11/27/20 08:29 Folic Acid 1 Mg Tablet PO 1 mg DAILY@10 DHAVAL Administration Furosemide 60 mg 11/23/20 04:48 11/27/20 08:28 Furosemide 40 Mg Tablet PO 60 mg Q12H DHAVAL Administration Multivitamins Therapeutic 1 tab 11/23/20 09:00 11/27/20 08:28 Multivitamin Therapeutic Tablet PO 1 tab DAILY DHAVAL Administration Ondansetron HCl 4 mg 11/23/20 04:48 11/23/20 11:29 Ondansetron 2 Mg/Ml Sdv 2 Ml IVP 4 mg Q8H PRN Administration vomiting, or N/V if npo Pantoprazole Sodium 40 mg 11/23/20 10:00 11/27/20 08:[address] 40 Mg Tablet PO 40 mg DAILY@10 DHAVAL Administration Sodium Chloride 1 gm 11/26/20 17:20 11/27/20 08:28 Sodium Chloride 1 Gm Tablet PO 1 gm DAILY DHAVAL Administration Sodium Polystyrene Sulfonate 15 gm 11/26/20 09:00 11/26/20 11:36 Sodium Polystyrene Sulfonate 15 Gm/60 Ml Btl PO Not Given DAILY DHAVAL Thiamine Mononitrate 100 mg 11/23/20 10:00 11/27/20 08:29 Thiamine 100 Mg Tablet PO 100 mg DAILY@10 DHAVAL Administration Tramadol HCl 100 mg 11/23/20 10:41 11/27/20 08:32 Tramadol 50 Mg Tablet PO 100 mg TID PRN Administration MODERATE PAIN PFSH Acute PFSH: Medical History Atrial fibrillation and flutter Atrial fibrillation with RVR Charcot's arthropathy End-stage liver disease Erectile dysfunction History of abdominal paracentesis Hx of esophageal varices Neuropathy Peyronie disease PVD (peripheral vascular disease) Surgical History H/O colonoscopy 10-12 yrs H/O esophagogastroduodenoscopy History of tonsillectomy Hx of umbilical hernia repair Hx of vasectomy Status post surgery (07/05/20) peritoneal catheter for ascites Family History Grandfather CAD (coronary artery disease) Grandmother CAD (coronary artery disease) Cancer Father Cancer Denies family history of Anesthesia complication Bleeding disorder Social History Smoking and tobacco status: former smoker Alcohol intake: current Alcohol intake frequency: 3 or more drinks per day Alcohol type: beer Adopted: No Caregiver/support person: No Lives independently: No Marital status: Current occupational status: employed History of recent travel: No Current gender identity: Male Vitals/I&O/Wt Last Vital Signs Temp 97.7 F 11/27/20 07:32 Pulse 88 11/27/20 09:29 Resp 18 11/27/20 09:29 BP 135/65 11/27/20 07:32 Pulse Ox 96 11/27/20 09:29 11/26/20 11/27/20 11/27/20 22:59 06:59 14:59 Intake Total 240 / 790 Output Total 550 / 550 1500 / 0 375 / 375 Balance -310 / 240 -1500 / -1260 -375 / -375 Physical Exam Narrative: EXAM NARRATIVE: General: alert, NAD HEENT: conj clear, EOMI, PERRL, mmm, Neck: supple, no meningismus Heme: no cervical LAP Pulmonary: Reduced the left lower lung breath sounds, otherwise normal air entry with no wheeze, crepitations, rhonchi Cardiovascular: rrr, nl s1s2, no mrg Abdomen: soft, nt, nd, no r/g, bs+ Extremities: pulses +, 1+ pitting edema, no c/c : no CVA tenderness Skin: intact, no rash MSK: no back or neck pain Neurologic: grossly intact Data Labs: Other Labs: Laboratory Results WBC 7.1 10^3/uL (4.0- 10.0) 11/26/20 09:16 Corrected WBC Cancelled 11/26/20 06:08 RBC 3.01 10^6/uL (4.1 -5.3) L 11/26/20 09:16 Hgb 10.0 g/dL (11.7-1 6.6) L 11/26/20 09:16 Hct 32.5 % (42.0-52.0 ) L 11/26/20 09:16 MCV 108.0 fL (80-94) H 11/26/20 09:16 MCH 33.2 pg (28.0-34. 0) 11/26/20 09:16 MCHC 30.8 g/dL (30.0-3 6.0) 11/26/20 09:16 RDW 14.4 % (12.1-15.1 ) 11/26/20 09:16 Plt Count 124 10^3/cmm (130 -400) L 11/26/20 09:16 MPV 9.2 fL (7.4-10.4) 11/26/20 09:16 Gran % Cancelled 11/26/20 06:08 Neut % (Auto) 74.5 % 11/26/20 09:16 Lymph % (Auto) 11.0 % 11/26/20 09:16 [place] % (Auto) 11.7 % 11/26/20 09:16 Eos % (Auto) 1.4 % 11/26/20 09:16 Baso % (Auto) 0.7 % 11/26/20 09:16 Neut # (Auto) 5.30 10^3/uL (1.8 -7.7) 11/26/20 09:16 Lymph # (Auto) 0.8 10^3/uL (0.8- 4.8) 11/26/20 09:16 [place] # (Auto) 0.8 10^3/uL (0.2- 0.9) 11/26/20 09:16 Eos # (Auto) 0.1 10^3/uL (0.0- 0.8) 11/26/20 09:16 Baso # (Auto) 0.1 10^3/uL (0.0- 0.1) 11/26/20 09:16 Absolute Gran (aut o) Cancelled 11/26/20 06:08 Nucleated RBC % (a uto) 0 % 11/26/20 09:16 Total Counted Not Reportable 11/23/20 04:48 Nucleated RBCs # 0.0 /100WBC 11/26/20 09:16 Differential Comme nt Cancelled 11/23/20 Unknown PT 16.40 SECONDS (12 .1-14.9) H 11/26/20 06:08 INR 1.28 (0.8-1.2) H 11/26/20 06:08 Sodium 124 mmol/L (136-1 45) L 11/27/20 05:25 Potassium 3.5 mmol/L (3.5-5 .1) 11/27/20 05:25 Chloride 84 mmol/L (98-107 ) L 11/27/20 05:25 Carbon Dioxide 32 mmol/L (22-29) H 11/27/20 05:25 Anion Gap 11.5 (5-19) 11/27/20 05:25 BUN 13 mg/dL (6-20) 11/27/20 05:25 Creatinine 1.3 mg/dL (0.7-1. 2) H 11/27/20 05:25 GFR Calculation 57.1 mL/min (90-1 30) L 11/27/20 05:25 Glucose 90 mg/dL (65-115) 11/27/20 05:25 Calculated Osmolal ity 258 mOsm/kg (285- 295) L 11/27/20 05:25 Calcium 8.2 mg/dL (8.5-10 .5) L 11/27/20 05:25 Phosphorus 3.2 mg/dL (2.5-4. 5) 11/26/20 06:08 Magnesium 1.6 mg/dL (1.7-2. 3) L 11/26/20 06:08 Total Bilirubin 1.2 mg/dL (0.15-1 .2) 11/27/20 05:25 AST 31 U/L (0-40) 11/27/20 05:25 ALT 16 U/L (0-41) 11/27/20 05:25 Alkaline Phosphata se 115 IU/L (40-130) 11/27/20 05:25 Ammonia 65 umol/L (16-60) H 11/26/20 06:08 NT-Pro-B Natriuret Pep 255 pg/mL (0-125) H 11/23/20 00:39 Total Protein 5.8 g/dL (6.6-8.7 ) L 11/27/20 05:25 Albumin 2.7 g/dL (3.5-5.2 ) L 11/27/20 05:25 Globulin 3.1 g/dL (1.3-4.6 ) 11/27/20 05:25 Procalcitonin 0.14 ng/mL (0-0.5 ) 11/23/20 05:31 TSH 6.81 uIU/mL (0.27 -4.20) H 11/23/20 05:31 Fluid Color Cancelled 11/23/20 Unknown Fluid Appearance Cancelled 11/23/20 Unknown Fluid WBC Cancelled 11/23/20 Unknown Fluid RBC Cancelled 11/23/20 Unknown Fluid Tot Cell Cou nt Cancelled 11/23/20 Unknown Fld Polynuclear WB Cs # Cancelled 11/23/20 Unknown Fld Polynuclear WB Cs % Cancelled 11/23/20 Unknown Fl Mononucl WBCs # (Auto) Cancelled 11/23/20 Unknown Fl Mononuclear % A uto Cancelled 11/23/20 Unknown Fluid Albumin Cancelled 11/23/20 Unknown Fluid Creatinine Cancelled 11/23/20 Unknown Pleural Color Colorless (Pale Yellow) 11/23/20 04:48 Pleural Appearance Clear (CLEAR) 11/23/20 04:48 Pleural pH Cancelled 11/23/20 Unknown Pleural WBC 92 /uL (0-1000) 11/23/20 04:48 Pleural RBC 0.000 10^3/uL 11/23/20 04:48 Pleural Other Cell s Not Reportable 11/23/20 04:48 Pleural Polynuclea r % 29 % 11/23/20 04:48 Pleural Mononuclea r % 71 % 11/23/20 04:48 Pleural Total Prot ein Cancelled 11/23/20 Unknown Pleural Albumin 0.3 g/dL 11/23/20 04:48 Pleural LDH Cancelled 11/23/20 Unknown Pleural Glucose Cancelled 11/23/20 Unknown Pleural Amylase Cancelled 11/23/20 Unknown Pleural Triglyceri augusto Cancelled 11/23/20 Unknown Influenza Type A A g Negative (Negati ve) 11/23/20 00:39 Influenza Type B A g Negative (Negati ve) 11/23/20 00:39 SARS-CoV-2 Ag (Rap id) Negative (Negati ve) 11/23/20 00:39 Path Cons w/Slide Yes 11/23/20 04:48 Impressions Chest/Abdomen/Pelvis CT 11/23/20 00:52 IMPRESSION: 1. Moderate amount of ascites is present in the abdomen and pelvis. 2. Diverticulosis without diverticulitis. 3. Cirrhosis with portal venous hypertension and large mediastinal varices. Radiation Dose CTDIVOL = (mGy): DLP = 2465.22~2465.22 (mGy-cm) Thoracentesis Ultrasound 11/23/20 04:48 IMPRESSION: Uncomplicated ultrasound-guided thoracentesis. Removal 1000cc pleural fluid Chest X-Ray 11/27/20 04:00 IMPRESSION: Left pleural effusion as above. Micro: Micro: Microbiology 11/23/20 Unknown Gram Stain - Final Pleural Fluid Body Fluid Culture - Final 11/23/20 Unknown Mycobacterial Smea r - Preliminary Body Fluids - Ple ura A&P Assessment and plan (1) Pleural effusion: Status: Acute (2) Hyponatremia with excess extracellular fluid volume: Status: Acute (3) Acute dyspnea: Status: Acute (4) Ascites due to alcoholic cirrhosis: Status: Chronic (5) End-stage liver disease: Status: Chronic (6) ETOH abuse: Status: Chronic #Acute dyspnea due to left pleural effusion #Pleural effusion-most likely hepatic hydrothorax in patient with ascites due to end-stage liver disease due to alcoholic liver cirrhosis #Counseling for EtOH abuse #Hyponatremia-secondary to end-stage liver disease-improved with salt tablets -Currently on room air saturating well with no signs of dyspnea -S/p thoracentesis on November 24-1000 cc transudative fluid -Bedside ultrasound 11/27/2020 showed moderate left pleural effusion -Drained 4 L of ascitic fluid on November 24, 2020 and again 1. 2 L on 11/26/2020 -Recommended to drain ascitic fluid once in every 2 to 3 days to prevent hepatic hydrothorax -Once hyponatremia corrected, recommended to follow salt restriction less than 2 to 4 g/day -Continue diuretics with Lasix 60 mg every 12 and add spironolactone 25 mg p.o. daily -Counseled extensively to quit alcohol. -Follow-up in pulmonary clinic in 2 weeks to evaluate for left pleural effusion -For recurrent hepatic hydrothorax chest tube placement has been avoided due to risk of complications and poor outcomes. -For refractory hepatic hydrothorax, one of the long-term strategies to consider is TIPS placement and is beneficial in patients during the early stages. Although there are several serious complications like cardiac arrhythmias, traversal of liver capsule, portosystemic encephalopathy and TIPS stenosis, selected patients with child-wharton score < 13 (patient score 9), patient's younger than 70 years of age(patient is 55 years old) and with no hepatic encephalopathy. - Once child wharton score is > 10 -there is high morbidity and mortality. -However with indwelling peritoneal catheter-placement of TIPS is controversial -Another option will be chemical pleurodesis-little information is available to guide and management of recurrent symptomatic nonmalignant pleural effusions. Based on clinical experience hepatic hydrothorax is more difficult form of nonmalignant pleural effusion to treat with chemical pleurodesis -Diaphragmatic repair involving pleural flap and surgical mesh has been described but experience is limited. This approach may be an option for patients or not candidate for TIPS but have low meld scores. -Liver transplantation is the definitive treatment of hepatic hydrothorax. Patient being a an active alcoholic he may not be a candidate for liver transplant at this point of time. Counseled extensively to quit alcohol and would benefit from referral to [facility] for TIPS & Liver transplant Medical condition, labs, investigations, medications, counseling regarding medication compliance, side effects, importance of follow-up appointments, alcohol consumption-its adverse effects and importance of cessation and plan of care-everything explained in detail to the patient. Patient verbalized understanding and agreed with the plan of care. Reviewed old medical records and summarized as above Reviewed medications in detail and reconciled as necessary Reviewed the labs in detail with the patient Recommendations conveyed to hospitalist covering the patient Consult Attestations Medical Necessity Statement: Recurrent left pleural effusion in patient with refractory ascites due to alcoholic liver cirrhosis end-stage liver disease Time Spent in Patient Care: Greater than 35 minutes (>than 50% of time spent in counselling and/or direct pt care on unit). Including bedside ultrasound examination Critical Care Time: Including bedside ultrasound examination Critical Care Time (min): 45 Procedures Procedure Narrative Mild to moderate left PLEURAL EFFUSION; on inspiration movement of lung towards diaphragm making it difficult for optimal window to tap Coding Level of Care Code New Pt Acute Paper Testing Supervisor for Chg Fwd Patient Type New History Comprehensive Exam Comprehensive Medical Decision Making Moderate Complexity Diagnoses Pleural effusion J90 Hyponatremia with excess extracellular fluid volume E87.1 Acute dyspnea R06.00 Ascites due to alcoholic cirrhosis K70.31 End-stage liver disease K72.90 ETOH abuse F10.10 Time Spent (min) 45
--- NOTE | 2020-11-27 11:00 | P.DS_ITS ---
Discharge Providers Date of Admission: 11/23/20 02:41 Date of Discharge: November 27, 2020 Attending Provider at Admission: Girish Hansen MD Attending Provider at Discharge: Matthew Koroma MD Primary Care Provider: Yosvany Segovia MD Diagnoses at Discharge Discharge Diagnosis (1) Pleural effusion: Status: Chronic Permanent problem details: S/P Left thoracentesis wit removal of 1L,Transduative fluid (2) Hyponatremia with excess extracellular fluid volume: Status: Chronic (3) Acute dyspnea: Status: Resolved (4) Ascites due to alcoholic cirrhosis: Status: Chronic (5) End-stage liver disease: Status: Chronic (6) ETOH abuse: Status: Chronic Reason for Visit Reason for Visit: diff breathing Hospital Course Hospital Course 55 year old male with a past medical history of end-stage liver disease, with peritoneal catheter for ascites, history of esophageal varices, continued alcohol use, history of atrial fibrillation not on anticoagulation due to risk of bleeding, chronic hyponatremia secondary to liver disease, alcoholism and noncompliance with Lasix therapy, who presents to [facility] due to shortness of breath. Patient tells that he has a history of liver cirrhosis, the last time he had his ascites drains was a few days ago, prior to that admission he does not remember how much fluid was taken off, but roughly 3 L. 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 Patient reports that he has been noncompliant with draining the peritoneum, he often goes 2 to 3 weeks without draining anything. Lights criteria showed transudate of effusion, no other signs of pneumonia, discontinued empiric antibiotics. On admission he was started on vancomycin aztreonam and was then switched to levofloxacin.at the time of discharge bedside ultrasound showed mild to moderate left pleural effusion. Paracentesis was also performed on November 24 with removal of 4 L of fluid. Patient insisted to see pulmonary as an inpatient for the chronic management of pleural effusion.Dr. Duke saw the patient in house advised him to continue with the routine paracentesis and avoid being noncompliant, wanted to continue with spironolactone as well as Lasix.He will follow as an outpatient in 2 weeks.Acute on chronic hyponatremia secondary to liver cirrhosis, beers [place], Lasix noncompliance he was continued Lasix 60 twice daily, fluid restrictions.He is being discharged on Lasix 60 p.o. daily to avoid overdiuresis. At the time of discharge acute hyponatremia has resolved, patient was at the baseline of serum sodium which usually range in the upper 120s. Patient responded well to the above medical management and he will follow pulmonary as an outpatient, and likely will need referral to [facility] as an outpatient, once he is sober. Physical Exam Const: COMMON NORMALS: patient oriented x3 HENMT: COMMON NORMALS: normocephalic and atraumatic HEAD & SCALP: normocephalic and atraumatic Chest: COMMONS NORMALS: normal inspection of the chest and normal palpation of entire chest wall CHEST: Yes Symmetrical chest wall rise Resp: COMMON NORMALS: normal respiratory effort, No retractions and No use of accessory muscles EFFORT & INSPECTION: Yes symmetric chest movement OTHER: Diminished air entry bilaterally left greater than right Cardio: COMMON NORMALS: regular rate, regular rhythm, S1 normal heart sound present, S2 normal heart sound present, No gallops present (Cardio), No murmurs present (Cardio), No rub (Cardio) and Peripheral pulses 2+ throughout RATE: regular rate RHYTHM: regular rhythm HEART SOUNDS: S1 normal heart sound present and S2 normal heart sound present PERIPHERAL PULSES: Peripheral pulses 2+ throughout GI: COMMON NORMALS: Normal to inspection, nondistended, normoactive bowel sounds present, Soft to palpation, non-tender, No hepatosplenomegaly present and no masses AUSCULTATION: Yes normoactive bowel sounds PALPATION: Yes Soft to palpation and Yes No hepatosplenomegaly present RECTAL EXAM: Yes deferred Extremity: NARRATIVE EXTREMITY EXAM: 1+ bilateral lower extremity pitting edema Neuro: COMMON NORMALS: patient oriented x3 Discharge Data Data Completed and Pending: Completed Studies During Hospitalization Category Date Time Status CT angio chest w abd pel w con Urge nt Cat Scan 11/23/20 00:52 Completed XR chest 1V [id number] Routine Exams 11/23/20 11:57 Completed XR chest 1V kasia ble [id number] AM LABS Exams 11/27/20 04:00 Completed XR chest 1V kasia ble [id number] Stat Exams 11/24/20 13:22 Completed XR chest 1V kasia ble [id number] Urgent Exams 11/23/20 00:25 Completed US thoracentesis [id number] Routine Ultrasound 11/23/20 04:48 Completed Pending at discharge Category Date Time Status Blood Culture Sta t Lab 11/23/20 01:30 Results Mycobacteria, Cul ture w/Fluor Routi ne Lab 11/23/20 Results Labs from last 24 hours 11/27/20 05:25 Sodium 124 L Potassium 3.5 Chloride 84 L Carbon Dioxide 32 H Anion Gap 11.5 BUN 13 Creatinine 1.3 H GFR Calculation 57.1 L Glucose 90 Calculated Osmolal ity 258 L Calcium 8.2 L Total Bilirubin 1.2 AST 31 ALT 16 Alkaline Phosphata se 115 Total Protein 5.8 L Albumin 2.7 L Globulin 3.1 Vitals: Last Vital Signs Temp 97.7 F 11/27/20 07:32 Pulse 88 11/27/20 09:29 Resp 18 11/27/20 09:29 BP 135/65 11/27/20 07:32 Pulse Ox 96 11/27/20 09:29 Discharge Plan Discharge Patient Disposition: Home Condition: Stable Prescriptions: Continued sildenafil 100 mg tablet 100 mg PO DAILY PRN (Reason: OTHER) RF: 0 ferrous sulfate 325 mg (65 mg iron) tablet 325 mg PO DAILY@16 RF: 0 pantoprazole 40 mg tablet,delayed release (DR/EC) 40 mg PO DAILY@10 RF: 0 vitamin B complex [B Complex-Vitamin B12] Tablet 1 tab PO DAILY@16 RF: 0 (DME) [facility] See Rx Instructions .Route .MEDSUPPLY Qty: 1 RF: 0 tadalafil 20 mg tablet 20 mg PO DAILY PRN (Reason: sexual activity) Qty: 20 RF: 12 (DME) [place] See Rx Instructions .Route .MEDSUPPLY Qty: 1 RF: 0 tramadol 50 mg Tablet 50 mg PO BID PRN (Reason: Pain) RF: 0 Ocuvite Adult 50 Plus 250-5-1 mg Capsule 2 cap PO DAILY@10 RF: 0 albuterol sulfate 90 mcg/actuation HFA aerosol inhaler 2 inh INHALATION Q4H PRN (Reason: shortness of breath or wheezing) Qty: 18 RF: 0 folic acid 1 mg tablet 1 mg PO DAILY@10 RF: 0 furosemide [Lasix] 40 mg tablet 60 mg PO DAILY@10 RF: 0 spironolactone 25 mg Tablet 25 mg PO DAILY@10 RF: 0 diltiazem HCl 120 mg tablet 120 mg PO Q8H Qty: 0 RF: 0 fluticasone propionate 50 mcg/actuation spray,suspension See Rx Instructions .ROUTE .COMPLEX RF: 0 Discontinued potassium chloride [Klor-Con M20] 20 mEq tablet,ER particles/crystals 20 meq PO DAILY@10 RF: 0 doxycycline hyclate 100 mg tablet 100 mg PO BID Qty: 28 RF: 0 Referrals: John Del Valle MD [Physician] - 2 weeks Yosvany Segovia MD [Primary Care Provider] - Discharge Activity: Resume usual activity Discharge Attestations Time Spent in Discharge Care*: less than 30 min Specific Discharge Activities: educating patient, educating and/or supporting family/caregiver, discussing with pcp/other providers, discussing with rehabilitation caseworker/social workers/dc planners, documenting/other paperwork and evaluating patient/reviewing data Status at Discharge: Cognitive status at discharge: cognitively intact , Behavioral status at discharge: cooperative , Functional status at discharge: independent ambulation Overall status at discharge: patient is back to baseline Quality Metrics Clinical Quality Measures During this hospital stay, did patient experience: None Coding Level of Care Code Acute Chg FW DC note Diagnoses Pleural effusion J90 Hyponatremia with excess extracellular fluid volume E87.1 Acute dyspnea R06.00 Ascites due to alcoholic cirrhosis K70.31 End-stage liver disease K72.90 ETOH abuse F10.10
--- NOTE | 2020-11-27 13:18 | PC.NURSE ---
Patient drained his peritoneum at 0715 this morning and drained 1200ml. Notified Dr Del Valle and Dr Koroma of amount drained.
--- NOTE | 2020-11-27 14:37 | PC.NURSE ---
called and updated patient's mother that patient is being discharged today. she said she will pick him up.
--- NOTE | 2020-11-27 14:59 | PC.NURSE ---
Patient has been asked several times by staff if we can assist him with a shower or bath. Patient refused all times.
--- NOTE | 2020-11-27 15:23 | PC.NURSE ---
patient and mother given discharge instructions and both verbalized understanding of instructions. patient taken to private vehicle via wheelchair by staff.
== END 2020-11-27 15:40 | disposition home or self-care (01) | DRG 187 ==
LOC: ER 02:44 → ICU 02:58 → MEDSURG 20:39
PROVIDERS: Hospitalist; Radiology Neuroradiology; Student in an Organized Health Care Education/Training Program; Admitting Provider Family Medicine; Emergency Provider Emergency Medicine; PCP Family Medicine; Visit Provider Internal Medicine
DX: J90 Pleural effusion, not elsewhere classified (principal); E87.1 Hypo-osmolality and hyponatremia; K72.90 Hepatic failure, unspecified without coma; K70.31 Alcoholic cirrhosis of liver with ascites; F10.10 Alcohol abuse, uncomplicated; I48.91 Unspecified atrial fibrillation; S92.342D Displaced fracture of fourth metatarsal bone, left foot, subsequent encounter for fracture with routine healing; X58.XXXD Exposure to other specified factors, subsequent encounter; M14.60 Charcot's joint, unspecified site; N52.9 Male erectile dysfunction, unspecified; G62.9 Polyneuropathy, unspecified; N48.6 Induration penis plastica; I73.9 Peripheral vascular disease, unspecified; Z87.891 Personal history of nicotine dependence; R06.03 Acute respiratory distress; Z91.19 Patient's noncompliance with other medical treatment and regimen; E87.5 Hyperkalemia
CPT/HCPCS: 32555; 36415; 71045; 71275; 74177; 80053; 80500; 82042; 82140; 82150; 82570; 82945; 83615; 83735; 83880; 83986; 84100; 84145; 84157; 84295; 84443; 84478; 85014; 85025; 85610; 87015; 87040; 87070; 87075; 87116; 87205; 87206; 87426; 87801; 87804; 89050; 93005; 94640; 94664; 96365; 96367; 96372; 97161; 97165; 97530; 97535; 99285; J1956; J2060; J2270; J2405; J3370; J3411; J3490; J7050; Q9967

== ENCOUNTER → 2020-12-04 15:48 | Outpatient (BNVA) | payer OTHER, SELFPAY | PROVIDERS: PCP Family Medicine; Visit Provider Podiatrist Foot & Ankle Surgery | DX: S91.312D Laceration without foreign body, left foot, subsequent encounter (principal); S92.325D Nondisplaced fracture of second metatarsal bone, left foot, subsequent encounter for fracture with routine healing; S92.335D Nondisplaced fracture of third metatarsal bone, left foot, subsequent encounter for fracture with routine healing; S92.345D Nondisplaced fracture of fourth metatarsal bone, left foot, subsequent encounter for fracture with routine healing | CPT/HCPCS: 73630 ==

== ENCOUNTER 2020-12-11 01:42 | Inpatient (IN) | payer OTHER, SELFPAY ==
[2020-12-11] VITALS (22 sets, daily range): BP systolic 107–142; BP diastolic 60–90; PULSE 69–87; RESP 14–22; TEMP 36.7–37.6; O2SAT 74–98; BMI 35.9
--- NOTE | 2020-12-11 01:56 | XRR_ITS ---
PROCEDURE INFORMATION: Exam: XR Chest Exam date and time: 12/11/2020 2:05 AM Age: 55 years old Clinical indication: Chest pain; Type not specified TECHNIQUE: Imaging protocol: XR of the chest Views: 1 view. COMPARISON: CR XR chest 1V portable [id number] 11/27/2020 6:20 AM FINDINGS: Lungs: Minor interstitial opacity of right lower lung. Pleural spaces: No pneumothorax. Heart/Mediastinum: Accentuation of the cardiac silhouette. Bones/joints: Unremarkable. Soft tissues: Increasing hazy density of the left chest diffusely most suspicious for pleural effusion with underlying left perihilar consolidation. XR/XR chest 1V portable [id number] IMPRESSION: 1. Increasing suspected moderate to large left effusion and underlying left perihilar pulmonary consolidation. 2. Interstitial opacity of right lower lung.
--- NOTE | 2020-12-11 01:57 | ECG_ITS ---
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 Measurements Intervals [place] Rate: 65 P: [place]: QRS: 47 QRSD: 93 T: 62 QT: 366 QTc: 383 Interpretive Statements ATRIAL FIBRILLATION LOW QRS VOLTAGE [QRS DEFLECTION < 0.5/1.0 mV IN LIMB/CHEST LEADS] ANTEROSEPTAL MYOCARDIAL INFARCTION [40+ ms Q WAVE IN V1-V4], PROBABLY OLD Compared to ECG 11/23/2020 00:31:54 No significant changes Electronically Signed On 12-11-2020 19:15:46 CDT by Compa Escamilla M.D. [email or web address]
--- NOTE | 2020-12-11 02:19 | W.ED.CHESTPA ---
Documented by User: YASMIN Argueta 12/11/20 02:55 HPI - Chest Pain General: Chief Complaint: Chest Pain Stated Complaint: chest pain Time Seen by Provider: 12/11/20 01:56 Source: patient and EMS Mode of arrival: ambulatory Limitations: no limitations History of Present Illness: HPI narrative: 55-year-old male patient presents to the emergency department via EMS transport with complaints of left rib pain that radiates to the middle of his chest. He reports onset started approximately 1 day ago, comes and goes, states lay down at approximately 9 PM tonight when the pain woke him up. He denies fever, reports chills, he reports shortness of breath but is chronic and has not increased. He reports nausea, denies vomiting or diarrhea. He reports history of atrial fibrillation and asthma. He reports use of his inhaler due to wheezing, could use an inhaler now . He denies cough or change of sputum. He continues with tobacco abuse, smokes 1 cigarette every 2 to 3 days. He has liver drain, last drained 3 to 4 days ago. He denies abdominal pain or change of skin color, increased abdominal girth. MD complaint: chest pain, chest discomfort and other Pertinent past history: other (Atrial fibrillation) Onset (ago): day(s) (1) Timing of current episode: episodic and still present Onset: during rest Pain location: left chest Pain radiation: other (Left rib to the center chest) Quality: sharp Relieving factors: nothing Exacerbating factors: nothing Associated symptoms: Reports dyspnea (Chronic) and nausea; Deny abdominal pain, diaphoresis, fever(s), palpitations or vomiting Review of Systems General: Reports: 10 or more systems reviewed and unremarkable except in HPI and below Const: Reports: fatigue and malaise; Denies: fever(s), chills or diaphoresis Eyes: Denies: change in vision, blurry vision, eye discomfort or eye redness ENMT: Denies: throat pain, dental pain, disequilibrium, nasal discharge, nasal congestion or nasal obstruction Card: Reports: chest pain, irregular heart rhythm (History of atrial fibrillation), dyspnea on exertion (Chronic) and orthopnea (Chronic not increased); Denies: palpitations, swelling of feet/ankles or lightheadedness Resp: Reports: dyspnea (Chronic) and wheezing (Chronic); Denies: productive cough, non-productive cough, hemoptysis or chest congestion GI: Reports: nausea; Denies: abdominal pain, vomiting, diarrhea, constipation or pain on defecation : Denies: dysuria Musc: Denies: neck pain or back pain Skin/Breast: Denies: rash, pruritus, erythema, skin tenderness or changes in skin color Neuro: Denies: headache(s), weakness in extremities or behavioral changes Psych: Denies: anxiety, depression or irritability Avinash/Lymph: Denies: easy bruising PFSH ED PFSH: Medical History Acute dyspnea Ascites Ascites due to alcoholic cirrhosis Atrial fibrillation and flutter Atrial fibrillation with RVR Charcot's arthropathy End-stage liver disease Erectile dysfunction ETOH abuse Fracture of fourth metatarsal bone of left foot History of abdominal paracentesis Hx of esophageal varices Hyperkalemia Hyponatremia Hyponatremia with excess extracellular fluid volume Neuropathy Peyronie disease Pleural effusion S/P Left thoracentesis wit removal of 1L,Transduative fluid Pneumonia PVD (peripheral vascular disease) Surgical History H/O colonoscopy 10-12 yrs H/O esophagogastroduodenoscopy History of tonsillectomy Hx of umbilical hernia repair Hx of vasectomy Status post surgery (07/05/20) peritoneal catheter for ascites Family History Grandfather CAD (coronary artery disease) Grandmother CAD (coronary artery disease) Cancer Father Cancer Denies family history of Anesthesia complication Bleeding disorder Social History Smoking and tobacco status: former smoker Alcohol intake: current Alcohol intake frequency: 3 or more drinks per day Alcohol type: beer Adopted: No Caregiver/support person: No Lives independently: No Marital status: Current occupational status: employed History of recent travel: No Current gender identity: Male Physical Exam Const: COMMON NORMALS: no acute distress, patient oriented x3 and alert GENERAL APPEARANCE: cooperative and well hydrated; not anxious and not ill appearing NUTRITIONAL APPEARANCE: obese ORIENTATION/CONSCIOUSNESS: Yes awake, Yes oriented to person, Yes oriented to place and Yes oriented to time HENMT: COMMON NORMALS: normocephalic, atraumatic, Normal external nose present and moist oral mucous membranes HEAD & SCALP: normocephalic and atraumatic FACE & SINUS: normal facial exam and face symmetric NOSE: Normal external nose present Eye: COMMON NORMALS: Equal, round and reactive pupils present and EOMs intact bilaterally GENERAL EYE: appearance normal, both eyes and all related structures PUPIL: Yes Equal, round and reactive pupils present Neck/C-Spine: COMMON NORMALS: full ROM, no lymphadenopathy and supple GENERAL: Yes normal visual inspection and Yes trachea midline CERVICAL SPINE: Yes cervical ROM normal Lymph: LYMPHATIC: no lymphadenopathy noted Chest: COMMONS NORMALS: normal inspection of the chest and normal palpation of entire chest wall CHEST: Yes Symmetrical chest wall rise and No localized rib tenderness with anteroposterior compression Resp: EFFORT & INSPECTION: Yes able to speak in complete sentences, Yes symmetric chest movement, No tachypneic, No respiratory distress, No labored, No retractions and Yes audible wheezes AUSCULTATION: wheezes Cardio: COMMON NORMALS: S1 normal heart sound present, S2 normal heart sound present and Peripheral pulses 2+ throughout RHYTHM: abnormal rhythm irregularly irregular HEART SOUNDS: S1 normal heart sound present and S2 normal heart sound present PERIPHERAL PULSES: Peripheral pulses 2+ throughout GI: COMMON NORMALS: Soft to palpation and non-tender INSPECTION: No Abdominal wall edema, No Anasarca, No abdominal distension, Yes central obesity, No visible pulsation, Yes Fluid wave present, No Localized GI swelling present and Yes GI ostomy present (hepatic) PALPATION: Yes Soft to palpation PERCUSSION: Fluid wave present : COMMON NORMALS: Yes no CVA tenderness BLADDER/KIDNEY EXAM: Yes no CVA tenderness Back/Pelvis: COMMON NORMALS: no CVA tenderness and thoracic and lumbar spine normal to inspection Extremity: COMMON NORMALS: normal to inspection and capillary refill normal Neuro: COMMON NORMALS: patient oriented x3 and no focal motor deficits SENSORIUM/ORIENTATION: Yes alert, Yes oriented to person, Yes oriented to place and Yes oriented to time Psych: COMMON NORMALS: mental status grossly normal, Normal thought process present and cooperative ACTIVITY/MOTOR BEHAVIOR: Yes appropriate eye contact THOUGHT PROCESS: Normal thought process present Skin: COMMON NORMALS: no rashes or lesions noted and turgor normal GENERAL SKIN EXAM: no rashes or lesions noted and turgor normal Course Vital Signs: Vital signs: Vital Signs Temperature 98.4 F 12/11/20 01:47 Pulse Rate 79 12/11/20 04:00 Respiratory Rate 19 H 12/11/20 04:00 Blood Pressure 116/90 12/11/20 04:00 Pulse Oximetry 94 12/11/20 04:00 MDM - Chest Pain MDM Narrative: Medical decision making narrative: 55-year-old male patient presents to the emergency department with complaints of left rib pain with radiation to the left center chest. He reports onset x1 day, pain is described on and off until worsening during the night. Chest x-ray reveals opacity left upper and lower lobe, CTA chest pending, history of pleural effusion with thoracentesis. Remaining labs are pending, transfer of care to Dr. Dupont as potential for admission is high. DuoNeb administered for wheezing. Lab Data: Labs: Lab Results 12/11/20 12/11/20 12/11/20 Range/Units 02:50 02:50 02:50 WBC 8.9 (4.0-10.0) 10^3/ uL RBC 3.52 L (4.1-5.3) 10^6/u L Hgb 11.8 (11.7-16.6) g/dL Hct 31.9 L (42.0-52.0) % MCV 90.6 (80-94) fL MCH 33.5 (28.0-34.0) pg MCHC 37.0 H (30.0-36.0) g/dL RDW 14.2 (12.1-15.1) % Plt Count 228 (130-400) 10^3/c mm MPV 9.0 (7.4-10.4) fL Neut % (Auto) 84.5 % Lymph % (Auto) 5.9 % Webster % (Auto) 8.3 % Eos % (Auto) 0.3 % Baso % (Auto) 0.3 % Neut # (Auto) 7.49 (1.8-7.7) 10^3/u L Lymph # (Auto) 0.5 L (0.8-4.8) 10^3/u L Webster # (Auto) 0.7 (0.2-0.9) 10^3/u L Eos # (Auto) 0.0 (0.0-0.8) 10^3/u L Baso # (Auto) 0.0 (0.0-0.1) 10^3/u L Nucleated RBC % (a uto) 0 % Nucleated RBCs # 0.0 /100WBC D-Dimer 2.91 H (0-0.59) ug/mIFE U Sodium 114 L* (136-145) mmol/L Potassium 3.0 L (3.5-5.1) mmol/L Chloride 71 L (98-107) mmol/L Carbon Dioxide 29 (22-29) mmol/L Anion Gap 17.0 (5-19) BUN 12 (6-20) mg/dL Creatinine 1.2 (0.7-1.2) mg/dL GFR Calculation 62.6 L (90-130) mL/min Glucose 108 (65-115) mg/dL Calculated Osmolal ity 238 L (285-295) mOsm/k g Calcium 8.4 L (8.5-10.5) mg/dL Total Bilirubin 2.3 H (0.15-1.2) mg/dL AST 31 (0-40) U/L ALT 16 (0-41) U/L Alkaline Phosphata se 138 H (40-130) IU/L Troponin T Baselin e (0-15) ng/L Total Protein 6.3 L (6.6-8.7) g/dL Albumin 2.9 L (3.5-5.2) g/dL Globulin 3.4 (1.3-4.6) g/dL Lipase 17 (13-60) U/L 12/11/ Range/Units 02:50 WBC (4.0-10.0) 10^3/ uL RBC (4.1-5.3) 10^6/u L Hgb (11.7-16.6) g/dL Hct (42.0-52.0) % MCV (80-94) fL MCH (28.0-34.0) pg MCHC (30.0-36.0) g/dL RDW (12.1-15.1) % Plt Count (130-400) 10^3/c mm MPV (7.4-10.4) fL Neut % (Auto) % Lymph % (Auto) % Webster % (Auto) % Eos % (Auto) % Baso % (Auto) % Neut # (Auto) (1.8-7.7) 10^3/u L Lymph # (Auto) (0.8-4.8) 10^3/u L Webster # (Auto) (0.2-0.9) 10^3/u L Eos # (Auto) (0.0-0.8) 10^3/u L Baso # (Auto) (0.0-0.1) 10^3/u L Nucleated RBC % (a uto) % Nucleated RBCs # /100WBC D-Dimer (0-0.59) ug/mIFE U Sodium (136-145) mmol/L Potassium (3.5-5.1) mmol/L Chloride (98-107) mmol/L Carbon Dioxide (22-29) mmol/L Anion Gap (5-19) BUN (6-20) mg/dL Creatinine (0.7-1.2) mg/dL GFR Calculation (90-130) mL/min Glucose (65-115) mg/dL Calculated Osmolal ity (285-295) mOsm/k g Calcium (8.5-10.5) mg/dL Total Bilirubin (0.15-1.2) mg/dL AST (0-40) U/L ALT (0-41) U/L Alkaline Phosphata se (40-130) IU/L Troponin T Baselin e 20 H (0-15) ng/L Total Protein (6.6-8.7) g/dL Albumin (3.5-5.2) g/dL Globulin (1.3-4.6) g/dL Lipase (13-60) U/L Discharge Plan Discharge Clinical Impression: Acute hyponatremia, Pleural effusion associated with hepatic disorder, Acute hypokalemia Chest pain Qualifiers: Chest pain type: unspecified Qualified Code(s): R07.9 - Chest pain, unspecified Condition: Stable Prescriptions: No Action sildenafil 100 mg tablet 100 mg PO DAILY PRN (Reason: OTHER) RF: 0 ferrous sulfate 325 mg (65 mg iron) tablet 325 mg PO DAILY@16 RF: 0 pantoprazole 40 mg tablet,delayed release (DR/EC) 40 mg PO DAILY@10 RF: 0 vitamin B complex [B Complex-Vitamin B12] Tablet 1 tab PO DAILY@16 RF: 0 (DME) Cam Walker See Rx Instructions .Route .MEDSUPPLY Qty: 1 RF: 0 tadalafil 20 mg tablet 20 mg PO DAILY PRN (Reason: sexual activity) Qty: 20 RF: 12 (DME) [place] See Rx Instructions .Route .MEDSUPPLY Qty: 1 RF: 0 tramadol 50 mg Tablet 50 mg PO BID PRN (Reason: Pain) RF: 0 Ocuvite Adult 50 Plus 250-5-1 mg Capsule 2 cap PO DAILY@10 RF: 0 albuterol sulfate 90 mcg/actuation HFA aerosol inhaler 2 inh INHALATION Q4H PRN (Reason: shortness of breath or wheezing) Qty: 18 RF: 0 folic acid 1 mg tablet 1 mg PO DAILY@10 RF: 0 furosemide [Lasix] 40 mg tablet 60 mg PO DAILY@10 RF: 0 spironolactone 25 mg Tablet 25 mg PO DAILY@10 RF: 0 diltiazem HCl 120 mg tablet 120 mg PO Q8H Qty: 0 RF: 0 fluticasone propionate 50 mcg/actuation spray,suspension See Rx Instructions .ROUTE .COMPLEX RF: 0 Referrals: Yosvany Segovia MD [Primary Care Provider] - Coding Level of Care Code ED Paste Mixing Supervisor for Chg Fwd Exam Comprehensive Documented by User: Reji Dupont DO 12/11/20 04:51 HPI - Chest Pain General: Chief Complaint: Chest Pain Stated Complaint: chest pain Time Seen by Provider: 12/11/20 01:56 PFSH ED PFSH: Medical History Acute dyspnea Ascites Ascites due to alcoholic cirrhosis Atrial fibrillation and flutter Atrial fibrillation with RVR Charcot's arthropathy End-stage liver disease Erectile dysfunction ETOH abuse Fracture of fourth metatarsal bone of left foot History of abdominal paracentesis Hx of esophageal varices Hyperkalemia Hyponatremia Hyponatremia with excess extracellular fluid volume Neuropathy Peyronie disease Pleural effusion S/P Left thoracentesis wit removal of 1L,Transduative fluid Pneumonia PVD (peripheral vascular disease) Surgical History H/O colonoscopy 10-12 yrs H/O esophagogastroduodenoscopy History of tonsillectomy Hx of umbilical hernia repair Hx of vasectomy Status post surgery (07/05/20) peritoneal catheter for ascites Family History Grandfather CAD (coronary artery disease) Grandmother CAD (coronary artery disease) Cancer Father Cancer Denies family history of Anesthesia complication Bleeding disorder Social History Smoking and tobacco status: former smoker Alcohol intake: current Alcohol intake frequency: 3 or more drinks per day Alcohol type: beer Adopted: No Caregiver/support person: No Lives independently: No Marital status: Current occupational status: employed History of recent travel: No Current gender identity: Male Course Vital Signs: Vital signs: Vital Signs Temperature 98.4 F 12/11/20 01:47 Pulse Rate 79 12/11/20 04:00 Respiratory Rate 19 H 12/11/20 04:00 Blood Pressure 116/90 12/11/20 04:00 Pulse Oximetry 94 12/11/20 04:00 MDM - Chest Pain MDM Narrative: Medical decision making narrative: 55-year-old male originally seen by ValerieFÉLIX. I agree with her history, evaluation, and treatment. This gentleman has pleuritic left-sided chest pain his hemoglobin is 11.8. His white blood cell count is 8.9. His sodium is down to 114 again. His potassium is low at 3.0 chest x-ray shows return of a left-sided effusion. CT without contrast, shows a moderate to large left pleural effusion. There is also ascites in the belly. With hyponatremia, hypokalemia, and return of effusion, he will be admitted. Lab Data: Labs: Lab Results 12/11/20 12/11/20 12/11/20 Range/Units 02:50 02:50 02:50 WBC 8.9 (4.0-10.0) 10^3/ uL RBC 3.52 L (4.1-5.3) 10^6/u L Hgb 11.8 (11.7-16.6) g/dL Hct 31.9 L (42.0-52.0) % MCV 90.6 (80-94) fL MCH 33.5 (28.0-34.0) pg MCHC 37.0 H (30.0-36.0) g/dL RDW 14.2 (12.1-15.1) % Plt Count 228 (130-400) 10^3/c mm MPV 9.0 (7.4-10.4) fL Neut % (Auto) 84.5 % Lymph % (Auto) 5.9 % Webster % (Auto) 8.3 % Eos % (Auto) 0.3 % Baso % (Auto) 0.3 % Neut # (Auto) 7.49 (1.8-7.7) 10^3/u L Lymph # (Auto) 0.5 L (0.8-4.8) 10^3/u L Webster # (Auto) 0.7 (0.2-0.9) 10^3/u L Eos # (Auto) 0.0 (0.0-0.8) 10^3/u L Baso # (Auto) 0.0 (0.0-0.1) 10^3/u L Nucleated RBC % (a uto) 0 % Nucleated RBCs # 0.0 /100WBC D-Dimer 2.91 H (0-0.59) ug/mIFE U Sodium 114 L* (136-145) mmol/L Potassium 3.0 L (3.5-5.1) mmol/L Chloride 71 L (98-107) mmol/L Carbon Dioxide 29 (22-29) mmol/L Anion Gap 17.0 (5-19) BUN 12 (6-20) mg/dL Creatinine 1.2 (0.7-1.2) mg/dL GFR Calculation 62.6 L (90-130) mL/min Glucose 108 (65-115) mg/dL Calculated Osmolal ity 238 L (285-295) mOsm/k g Calcium 8.4 L (8.5-10.5) mg/dL Total Bilirubin 2.3 H (0.15-1.2) mg/dL AST 31 (0-40) U/L ALT 16 (0-41) U/L Alkaline Phosphata se 138 H (40-130) IU/L Troponin T Baselin e (0-15) ng/L Total Protein 6.3 L (6.6-8.7) g/dL Albumin 2.9 L (3.5-5.2) g/dL Globulin 3.4 (1.3-4.6) g/dL Lipase 17 (13-60) U/L 12/11/20 Range/Units 02:50 WBC (4.0-10.0) 10^3/ uL RBC (4.1-5.3) 10^6/u L Hgb (11.7-16.6) g/dL Hct (42.0-52.0) % MCV (80-94) fL MCH (28.0-34.0) pg MCHC (30.0-36.0) g/dL RDW (12.1-15.1) % Plt Count (130-400) 10^3/c mm MPV (7.4-10.4) fL Neut % (Auto) % Lymph % (Auto) % Webster % (Auto) % Eos % (Auto) % Baso % (Auto) % Neut # (Auto) (1.8-7.7) 10^3/u L Lymph # (Auto) (0.8-4.8) 10^3/u L Webster # (Auto) (0.2-0.9) 10^3/u L Eos # (Auto) (0.0-0.8) 10^3/u L Baso # (Auto) (0.0-0.1) 10^3/u L Nucleated RBC % (a uto) % Nucleated RBCs # /100WBC D-Dimer (0-0.59) ug/mIFE U Sodium (136-145) mmol/L Potassium (3.5-5.1) mmol/L Chloride (98-107) mmol/L Carbon Dioxide (22-29) mmol/L Anion Gap (5-19) BUN (6-20) mg/dL Creatinine (0.7-1.2) mg/dL GFR Calculation (90-130) mL/min Glucose (65-115) mg/dL Calculated Osmolal ity (285-295) mOsm/k g Calcium (8.5-10.5) mg/dL Total Bilirubin (0.15-1.2) mg/dL AST (0-40) U/L ALT (0-41) U/L Alkaline Phosphata se (40-130) IU/L Troponin T Baselin e 20 H (0-15) ng/L Total Protein (6.6-8.7) g/dL Albumin (3.5-5.2) g/dL Globulin (1.3-4.6) g/dL Lipase (13-60) U/L Discharge Plan Discharge Clinical Impression: Acute hyponatremia, Pleural effusion associated with hepatic disorder, Acute hypokalemia Chest pain Qualifiers: Chest pain type: unspecified Qualified Code(s): R07.9 - Chest pain, unspecified Condition: Stable Prescriptions: No Action sildenafil 100 mg tablet 100 mg PO DAILY PRN (Reason: OTHER) RF: 0 ferrous sulfate 325 mg (65 mg iron) tablet 325 mg PO DAILY@16 RF: 0 pantoprazole 40 mg tablet,delayed release (DR/EC) 40 mg PO DAILY@10 RF: 0 vitamin B complex [B Complex-Vitamin B12] Tablet 1 tab PO DAILY@16 RF: 0 (DME) [place] [employer] See Rx Instructions .Route .MEDSUPPLY Qty: 1 RF: 0 tadalafil 20 mg tablet 20 mg PO DAILY PRN (Reason: sexual activity) Qty: 20 RF: 12 (DME) [place] See Rx Instructions .Route .MEDSUPPLY Qty: 1 RF: 0 tramadol 50 mg Tablet 50 mg PO BID PRN (Reason: Pain) RF: 0 Ocuvite Adult 50 Plus 250-5-1 mg Capsule 2 cap PO DAILY@10 RF: 0 albuterol sulfate 90 mcg/actuation HFA aerosol inhaler 2 inh INHALATION Q4H PRN (Reason: shortness of breath or wheezing) Qty: 18 RF: 0 folic acid 1 mg tablet 1 mg PO DAILY@10 RF: 0 furosemide [Lasix] 40 mg tablet 60 mg PO DAILY@10 RF: 0 spironolactone 25 mg Tablet 25 mg PO DAILY@10 RF: 0 diltiazem HCl 120 mg tablet 120 mg PO Q8H Qty: 0 RF: 0 fluticasone propionate 50 mcg/actuation spray,suspension See Rx Instructions .ROUTE .COMPLEX RF: 0 Referrals: Yosvany Segovia MD [Primary Care Provider] - Coding Level of Care Code ED Paste Mixing Supervisor for Chg Fwd Exam Comprehensive
[2020-12-11] MEDS: ondansetron 2 mg/ML SDV 2 mL 4 MG IVP ×3 (02:26→21:30)
[2020-12-11] MEDS: ipratropium-albuterol 3 mL Neb INHALATION ×3 (02:34→23:33)
--- NOTE | 2020-12-11 02:34 | CTR_ITS ---
PROCEDURE INFORMATION: Exam: CT Chest Without Contrast; Diagnostic Exam date and time: 12/11/2020 2:49 AM Age: 55 years old Clinical indication: Pain and condition or disease; Lung condition and disease; Pleural effusion; Other: Unknown; Chest pain; Additional info: Pleural effusion, chest pain TECHNIQUE: Imaging protocol: Diagnostic computed tomography of the chest without contrast. Radiation optimization: All CT scans at this facility use at least one of these dose optimization techniques: automated exposure control; mA and/or kV adjustment per patient size (includes targeted exams where dose is matched to clinical indication); or iterative reconstruction. COMPARISON: CT angio chest w abd pel w con 11/23/2020 1:55 AM RADIATION DOSE METRICS: Total DLP (mGy-cm): 1061.71 FINDINGS: Lungs: Unremarkable. No consolidation. No masses. Pleural spaces: Moderate to large left pleural effusion. Heart: Unremarkable. No cardiomegaly. No pericardial effusion. Mediastinal space: Multiple upper abdominal collateral vessels are present. Esophageal varices are present. Multiple old right-sided rib fractures are present. Aorta: Unremarkable. No aortic aneurysm. Lymph nodes: Unremarkable. No enlarged lymph nodes. Liver: There is cirrhotic morphology of the liver. Intraperitoneal space: There is a moderate amount of ascites . Bones/joints: See Mediastinal space finding. Soft tissues: Unremarkable. CT/CT chest con [id number] IMPRESSION: 1. Moderate to large left pleural effusion. 2. There is a moderate amount of ascites . 3. Cirrhosis. Radiation Dose CTDIVOL = (mGy): DLP = 1061.71 (mGy-cm)
[2020-12-11 02:57] LABS: Basophils % 0.3 %; Eosinophils % 0.3 %; Hematocrit 31.9 % (42.0-52.0); Hemoglobin 11.8 g/dL (11.7-16.6); Lymphocytes # 0.5 10^3/uL (0.8-4.8); Lymphocytes % 5.9 %; Mean Corpuscular Hemoglobin 33.5 pg (28.0-34.0); Mean Corpuscular Volume 90.6 fL (80-94); Monocytes # 0.7 10^3/uL (0.2-0.9); Monocytes % 8.3 %; Neutrophils # 7.49 10^3/uL (1.8-7.7); Neutrophils % 84.5 %; Nucleated Red Blood Cells % 0 %; Platelet Count 228 10^3/cmm (130-400); Red Blood Count 3.52 10^6/uL (4.1-5.3); Red Cell Distribution Width 14.2 % (12.1-15.1); White Blood Count 8.9 10^3/uL (4.0-10.0)
[2020-12-11 03:08] LABS: D Dimer 2.91 ug/mIFEU (0-0.59)
[2020-12-11 03:11] LABS: Alanine Aminotransferase 16 U/L (0-41); Albumin Level 2.9 g/dL (3.5-5.2); Alkaline Phosphatase 138 IU/L (40-130); Aspartate Amino Transferase 31 U/L (0-40); Blood Urea Nitrogen 12 mg/dL (6-20); Calcium 8.4 mg/dL (8.5-10.5); Carbon Dioxide 29 mmol/L (22-29); Chloride 71 mmol/L (98-107); Globulin 3.4 g/dL (1.3-4.6); Glomerular Filtration Rate 62.6 mL/min (90-130); Glucose 108 mg/dL (65-115); Lipase 17 U/L (13-60); Osmolality Calculated 238 mOsm/kg (285-295); Total Bilirubin 2.3 mg/dL (0.15-1.2); Total Protein 6.3 g/dL (6.6-8.7)
[2020-12-11 03:14] LABS: Troponin(5th) Baseline 20 ng/L (0-15)
[2020-12-11 03:17] LABS: Sodium 114 mmol/L (136-145)
--- NOTE | 2020-12-11 03:57 | ECG_ITS ---
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 Measurements Intervals Stringer Rate: 81 P: DC: QRS: 46 QRSD: 93 T: 70 QT: 351 QTc: 408 Interpretive Statements ATRIAL FIBRILLATION LOW QRS VOLTAGE [QRS DEFLECTION < 0.5/1.0 mV IN LIMB/CHEST LEADS] MINIMAL ST DEPRESSION [0.025+ mV ST DEPRESSION] Compared to ECG 12/11/2020 01:55:21 ST (T wave) deviation now present Myocardial infarct finding no longer present Electronically Signed On 12-11-2020 19:23:17 CDT by Compa Escamilla M.D. [email or web address]
--- NOTE | 2020-12-11 04:43 | PM.HP ---
Providers/Chief Complaint Primary Care Provider: Yosvany Segovia MD Chief Complaint: chest pain History of Present Illness Yosvany Soto is a 55 year old male who has history of end-stage renal disease with peritoneal catheter for ascites history of esophageal varices atrial fibrillation not on any long-term anticoagulation due to risk of bleeding in the past history of hyponatremia secondary to liver disease alcoholism and noncompliance was recently discharged from the hospital after 1 L left-sided thoracentesis on 11/23 with reaccumulation. He has been noncompliant with his medication and did not drain his peritoneum very well in the past. He also has chronic hyponatremia secondary to volume overload from liver cirrhosis and beer portomania, sodium improved with Lasix and fluid restriction on last visit. Patient is stating that today he started experiencing left-sided chest discomfort, initially it was located around left side of his chest and then later it started radiating towards anterior of his chest at that time and said to come to the hospital. This chest discomfort was associated with shortness of breath however he is denying fever, sinus infection, recent diarrhea change in bowel movement. He is endorsing drinking 50 ounces of alcohol almost daily. Compliance with medication is also questionable. In the ER he had normal hemodynamics normal CBC stable hemoglobin, high D-dimer 2.9, hyponatremia 114 hypokalemia hypochloremia however no recurrent nausea or vomiting endorsed by the patient, bilirubin 2.3, I have requested alcohol level and drug screen, he is afebrile, saturating well on room air, EKG unremarkable CT chest chest x-ray unremarkable other than recurrence of left-sided pleural effusion Review of Systems Const: Reports: chills, body aches, fatigue and malaise; Denies: fever(s) Eyes: Denies: change in vision ENMT: Denies: throat pain Card: Reports: chest pain, dyspnea on exertion and orthopnea Resp: Reports: dyspnea and non-productive cough GI: Denies: abdominal pain : Denies: flank pain Musc: Denies: neck pain Skin/Breast: Denies: rash Neuro: Denies: weakness in extremities Psych: Denies: anxiety Endo: Denies: polyuria or cold intolerance Avinash/Lymph: Denies: easy bruising or easy bleeding All/Imm: Denies: urticaria Medications/Allergies Home Medications Medication Instructions Recorded Confirmed Last Taken Type ferrous sulfate 325 mg (65 mg 325 mg PO DAILY@16 01/04/20 12/04/20 09/07/20 History iron) tablet pantoprazole 40 mg tablet,delayed 40 mg PO DAILY@10 01/04/20 12/04/20 09/07/20 History release sildenafil 100 mg tablet 100 mg PO DAILY PRN 01/04/20 12/04/20 Unknown History vitamin B complex 1 tab PO DAILY@16 01/04/20 12/04/20 09/07/20 History tadalafil 20 mg tablet 20 mg PO DAILY PRN #20 tab 01/10/20 12/04/20 Unknown Rx tramadol 50 mg PO BID PRN 05/05/20 12/04/20 09/07/20 History diltiazem HCl 120 mg PO Q8H #0 tab 06/17/20 12/04/20 09/07/20 Rx Ocuvite Adult 50 Plus 2 cap PO DAILY@10 08/04/20 12/04/20 09/07/20 History albuterol sulfate 2 inh INHALATION Q4H PRN #18 gm 08/04/20 12/04/20 09/07/20 Rx folic acid 1 mg PO DAILY@10 08/23/20 12/04/20 09/07/20 History furosemide [Lasix] 60 mg PO DAILY@08/23/20 12/04/20 09/07/20 History [place] boot #1 ea 09/01/20 12/04/20 Unknown Rx fluticasone propionate See Rx Instructions .ROUTE .COMPLEX 09/08/20 12/04/20 Unknown History [place] #1 ea NS 10/02/20 12/04/20 Unknown Rx spironolactone 25 mg PO DAILY@10 11/23/20 12/04/20 Unknown History Allergies Allergy/AdvReac Type Severity Reaction Status Date / Time Penicillins Allergy ALGY-Difficulty Verified 12/11/20 01:54 Breathing Sulfa (Sulfonamide Allergy Unknown Verified 12/11/20 01:54 Antibiotics) PFSH Acute PFSH: Medical History (Updated 12/11/20 @ 06:31 by Abdiel Cardona MD) Acute dyspnea Ascites Ascites due to alcoholic cirrhosis Atrial fibrillation and flutter Atrial fibrillation with RVR Charcot's arthropathy End-stage liver disease Erectile dysfunction ETOH abuse Fracture of fourth metatarsal bone of left foot History of abdominal paracentesis Hx of esophageal varices Hyperkalemia Hyponatremia Hyponatremia with excess extracellular fluid volume Neuropathy Peyronie disease Pleural effusion S/P Left thoracentesis wit removal of 1L,Transduative fluid Pneumonia PVD (peripheral vascular disease) Surgical History H/O colonoscopy 10-12 yrs H/O esophagogastroduodenoscopy History of tonsillectomy Hx of umbilical hernia repair Hx of vasectomy Status post surgery (07/05/20) peritoneal catheter for ascites Family History Grandfather CAD (coronary artery disease) Grandmother CAD (coronary artery disease) Cancer Father Cancer Denies family history of Anesthesia complication Bleeding disorder Social History Smoking and tobacco status: former smoker Alcohol intake: current Alcohol intake frequency: 3 or more drinks per day Alcohol type: beer Adopted: No Caregiver/support person: No Lives independently: No Marital status: Current occupational status: employed History of recent travel: No Current gender identity: Male Vitals/I&O/Wt Last Vital Signs Temp 98.4 F 12/11/20 01:47 Pulse 79 12/11/20 04:00 Resp 19 H 12/11/20 04:00 BP 116/90 12/11/20 04:00 Pulse Ox 94 12/11/20 04:00 Weight last 48 hrs Weight 120.202 kg Physical Exam Narrative: EXAM NARRATIVE: Patient was laying comfortably in his bed in supine position was saturating well on room air No active chest pain fever or headache S1, S2 variable with signs of heart failure Looks fluid overloaded, appears more than stated age Abdomen is soft distended no active tenderness on deep palpation peritoneal drain in place without any active drainage. Left second toe with good granulation tissue without any active signs of cellulitis on dorsal side Patient is wearing compression stockings Noticed venous stasis dermatitis EOMI, PERRLA No neurological deficit Data : 12/11/20 02:50 12/11/20 02:50 A&P Assessment and plan (1) Chest pain: Status: Acute Qualifiers: Chest pain type: unspecified Qualified Code(s): R07.9 - Chest pain, unspecified (2) Chronic hyponatremia: Status: Acute (3) Pleural effusion associated with hepatic disorder: Status: Acute (4) Laceration of left foot: Status: Acute Qualifiers: Encounter type: subsequent encounter Qualified Code(s): S91.312D - Laceration without foreign body, left foot, subsequent encounter Additional A&P Information Pleuritic chest Patient recently had 1 L left-sided thoracentesis Recurrence of left-sided pleural effusion, I do believe he will benefit from a cardiothoracic consult for pleurodesis versus drain placement We will keep him on low-dose Lasix because of hypokalemia No active chest pain, EKG without ischemic or infarctive changes, troponin not similarly high Chronic hyponatremia Sodium check every every 6 hours No active neurological signs or symptoms Patient is drinking 50 ounces of beer every day which seems to be the etiology I would not repeat hyponatremia work-up Check alcohol level Fluid restriction along with use of Lasix Laceration of left foot Good granulation tissue without any active signs related Chronic liver disease without acute decompensation No active hepatic encephalopathy I will keep him on lactulose and rifaximin along ceftriaxone Patient manages his peritoneal catheter for recurrent ascites Abdomen nontender, SBP less likely Hypokalemia: Repleted Cardiac diet DVT prophylaxis currently on hold in case he would go for any intervention we will keep him on SCDs for now Resume anticoagulating agent after the procedure Full code Attestations Medical Necessity Statement*: Anticipating stay in the hospital cross on the 2 midnights for acute on chronic hyponatremia and pleuritic chest pain Time Spent in Patient Care: (>than 50% of time spent in counselling and/or direct pt care on unit). 40mins Coding Level of Care Code Acute Integration Manager for Chg Fwd Diagnoses Chest pain R07.9 Chest pain type: unspecified Chronic hyponatremia E87.1 Pleural effusion associated with hepatic disorder K76.9; J91.8 Laceration of left foot S91.312D Encounter type: subsequent encounter
[2020-12-11] MEDS: potassium chloride ER 20 mEq Tablet 60 MEQ PO (05:10)
[2020-12-11 05:31] LABS: INR 1.15 (0.8-1.2)
[2020-12-11 05:46] LABS: Alcohol Level 59 mg/dL (0-10)
[2020-12-11] MEDS: dilTIAZem 60 mg Tablet 120 MG PO ×3 (06:19→23:44)
[2020-12-11 06:50] LABS: Troponin 5 2HR 19.89 ng/L (0-15)
[2020-12-11 06:52] LABS: Troponin 5 2HR Delta -0.11 ABS# (0-10)
[2020-12-11 07:36] LABS: Sodium 114 mmol/L (136-145)
--- NOTE | 2020-12-11 07:57 | ECG_ITS ---
[facility] ED Test Date: 2020-12-11 Pat Name: Yosvany Soto Department: Room: 255 Gender: Male Books Salesperson: : 1965 Requested By: Mariana Sherwood Order Number: [id number] Cade MD: Binta Pitt M.D. Measurements Intervals [place] Rate: 73 P: NV: QRS: 44 QRSD: 92 T: 41 QT: 399 QTc: 443 Interpretive Statements ATRIAL FIBRILLATION LOW QRS VOLTAGE [QRS DEFLECTION < 0.5/1.0 mV IN LIMB/CHEST LEADS] ANTEROSEPTAL MYOCARDIAL INFARCTION [40+ ms Q WAVE IN V1-V4], PROBABLY OLD Compared to ECG 12/11/2020 05:04:59 Myocardial infarct finding now present ST (T wave) deviation no longer present Electronically Signed On 12-14-2020 22:43:26 CDT by Binta Pitt M.D. [email or web address]
--- NOTE | 2020-12-11 09:36 | PM.PN ---
Subjective Subjective: Interval history: Patient was seen and examined this morning, currently he is complaining of ongoing lt sided chest pain, though he clearly don not give history consistent with pleuritic component.Currently he was seen comfortably eating his breakfast. Saturating well on R/A. Bedside ultrasound done: Moderate to large left-sided pleural effusion Vitals/I&O/Wt Last Vital Signs Temp 98.0 F 12/11/20 07:44 Pulse 73 12/11/20 08:10 Resp 15 12/11/20 08:10 BP 111/60 12/11/20 07:44 Pulse Ox 94 12/11/20 08:10 12/10/20 12/11/20 12/11/20 22:59 06:59 14:59 Intake Total 120 / 120 Balance 120 / 120 Weight last 48 hrs Weight 120.202 kg Physical Exam Const: COMMON NORMALS: patient oriented x3 HENMT: COMMON NORMALS: normocephalic and atraumatic HEAD & SCALP: normocephalic and atraumatic Chest: CHEST: Yes Symmetrical chest wall rise Resp: COMMON NORMALS: normal respiratory effort EFFORT & INSPECTION: Yes symmetric chest movement OTHER: Diminished air entry b/l lt > rt Cardio: COMMON NORMALS: regular rate, regular rhythm, S1 normal heart sound present, S2 normal heart sound present, No gallops present (Cardio), No murmurs present (Cardio), No rub (Cardio) and Peripheral pulses 2+ throughout RATE: regular rate RHYTHM: regular rhythm HEART SOUNDS: S1 normal heart sound present and S2 normal heart sound present PERIPHERAL PULSES: Peripheral pulses 2+ throughout GI: COMMON NORMALS: Normal to inspection, nondistended, normoactive bowel sounds present, Soft to palpation, non-tender, No hepatosplenomegaly present and no masses AUSCULTATION: Yes normoactive bowel sounds PALPATION: Yes Soft to palpation and Yes No hepatosplenomegaly present RECTAL EXAM: Yes deferred Extremity: COMMON NORMALS: no clubbing, cyanosis or edema and no pedal edema Neuro: COMMON NORMALS: patient oriented x3 Data : 12/11/20 02:50 12/11/20 12:18 A&P Assessment and plan (1) Chest pain: Status: Acute Qualifiers: Chest pain type: unspecified Qualified Code(s): R07.9 - Chest pain, unspecified (2) Chronic hyponatremia: Status: Acute (3) Pleural effusion associated with hepatic disorder: Status: Acute (4) Ascites: Status: Acute (5) Atrial fibrillation and flutter: Status: Acute (6) Laceration of left foot: Status: Acute Qualifiers: Encounter type: subsequent encounter Qualified Code(s): S91.312D - Laceration without foreign body, left foot, subsequent encounter Additional A&P Information Pleuritic chest Patient recently had 1 L left-sided thoracentesis. Will Plan for lt sided thoracentesis Recurrence of left-sided pleural effusion, will consider cardiothoracic consult for pleurodesis versus drain placement No active chest pain, EKG without ischemic or infarctive changes, troponin not similarly high Bedside ultrasound done: Moderate to large left-sided simple pleural effusion. Lasix 40 mg I.V Q12 H Daily Acute on chronic asymptomatic hypervolemic hyponatremia: Sodium check every every 6 hours No active neurological signs or symptoms Patient is drinking 50 ounces of beer every day which seems to be the etiology I would not repeat hyponatremia work-up Check alcohol level Fluid restriction along with use of Lasix #A.fib : Currently in sinus Not on Ac Due to high risk for bleeding # Ascites : Patient manages his peritoneal catheter for recurrent ascites Lasix 40 mg I.V Q12 H Daily Spironolactone 25 mg p.o. 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 Continue lasix 40 mg I.V Q12 H Daily Daily I/O Daily weight 2D ECHO : 05/2020: The septum, anteroseptum and the inferior wall segments appear to be hypokinetic.Overall ejection fraction around 40-45%. Repeat Echo. Repeat 2D echo Laceration of left foot Good granulation tissue without any active signs related #Chronic liver disease without acute decompensation No active hepatic encephalopathy lactulose 30 mg po TID and rifaximin Patient manages his peritoneal catheter for recurrent ascites Abdomen nontender, SBP less likely #Hypokalemia: Repleted Cardiac diet DVT prophylaxis currently on hold in case he would go for any intervention we will keep him on SCDs for now Resume anticoagulating agent after the procedure Full code Attestations Medical Necessity Statement*: Patient needs to be in hospital for management of recurrent pleural effusion, pleuritic chest pain, hyponatremia. Coding Level of Care Code Acute Industrial Sales Manager for Chg Fwd Exam Detailed Diagnoses Chest pain R07.9 Chest pain type: unspecified Chronic hyponatremia E87.1 Pleural effusion associated with hepatic disorder K76.9; J91.8 Ascites R18.8 Atrial fibrillation and flutter I48.91; I48.92 Laceration of left foot S91.312D Encounter type: subsequent encounter
[2020-12-11 09:42] LABS: Troponin 5 6HR 20.15 ng/L (0-15); Troponin 5 6HR Delta 0.15 ng/L (0-12)
[2020-12-11] MEDS: pantoprazole DR 40 mg Tablet PO (09:56)
[2020-12-11] MEDS: spironolactone 25 mg Tablet PO (09:56)
[2020-12-11] MEDS: FUROsemide 40 mg Tablet PO (09:56)
--- NOTE | 2020-12-11 09:58 | PC.CHAP ---
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 global program manager visit [] Patient/Family/Request visit [] Outpatient visit [] Follow-up visit [] Physician referral [] Code/Alert [x] Routine visit [] Staff referral [] Actively dying [x] Patient sleeping [] Family support [] [] Out of room [] Palliative care [] [] Receiving care in room [] Pre-surgical visit [] Trauma [] Long length of stay [] ICU visit [] Other: Relational/Emotional Strength [] Patient feels connected with others/family/visitors/staff [] Distress [] Loneliness/isolation [] Abandonment Spirituality of Patient [] Person of Jana [] Attends Orthodoxy of their Jana [] Believes in Prayer [] Reads Bible or Confucianist materials [] There are Spiritual issues to be addressed Water Reclamation Systems Operator Interventions [] Prayer [] Active listening [] Non-anxious presence [] Spiritual/emotional support [] Crisis/trauma care [] Spiritual counseling [] Bereavement support [] Provided bereavement packet [] Provided Bible/devotional materials [] Provided toy/stuffed animal, coloring book to patient or family member [] Provided Communion [] Anointing/[place] [] Salvation [] Completed spiritual assessment [] Other: Impact on Illness or Injury [] Angry [] Fearful [] Anxious [] Often cries [] Exhaustion [] Unable to work [] Unable to attend druze [] Unable to walk/stand [] Unable to read [] Unable to drive [] Unable to eat/drink [] Unable to sleep [] Unable to be with family [] Patient intubated [] Other: Summary Time spent with patient
[2020-12-11] MEDS: acetaminophen 325 mg Tablet 650 MG PO (13:04)
[2020-12-11 13:27] LABS: Sodium 112 mmol/L (136-145)
[2020-12-11 14:48] LABS: Amphetamines Screen Urine Negative (Negative); Barbiturates Screen Urine Negative (Negative); Benzodiazepines Screen Urine Negative (Negative); Cocaine Screen Urine Negative (Negative); Opiate Screen Urine Negative (Negative); PCP Screen Urine Negative (Negative); THC Screen Urine Negative (Negative)
[2020-12-11] MEDS: potassium chloride ER 20 mEq Tablet 40 MEQ PO (17:37)
[2020-12-11] MEDS: FUROsemide 10 mg/mL SDV 4mL 40 MG IVP (17:37)
[2020-12-11] MEDS: sodium chloride 1 gm Tablet 2 GM PO (17:38)
[2020-12-11] MEDS: lactulose oral liq 20 gm/30 mL UDC 30 GM PO (21:30)
[2020-12-11] MEDS: fluticasone nasal spray 16gm Btl 2 SPRAY NASAL (21:30)
[2020-12-11] MEDS: TRAMadol 50 mg Tablet PO (21:36)
[2020-12-12] VITALS (9 sets, daily range): BP systolic 100–138; BP diastolic 64–77; PULSE 71–83; RESP 15–18; TEMP 36.7–37.1; O2SAT 91–98
[2020-12-12] MEDS: ondansetron 2 mg/ML SDV 2 mL 4 MG IVP ×4 (04:24→21:57)
[2020-12-12] MEDS: FUROsemide 10 mg/mL SDV 4mL 40 MG IVP ×2 (04:24→17:17)
--- NOTE | 2020-12-12 05:00 | US_ITS ---
WS: [id number] ULTRASOUND-GUIDED THORACENTESIS HISTORY: Recurrent lt pleural effusion Procedure, risks, and complications were explained to the patient. With the patient in an upright pos ition, the skin over the LEFT posterior thorax was cleansed with ChloraPrep and anesthetized with 1% buffered lidocaine. A 5 [place] Yueh needle is inserted into the pleural fluid without complication. A pproximately 1800 cc of clear pleural fluid is removed without difficulty. / thoracentesis [id number] IMPRESSION: 1. LEFT thoracentesis yielding 1800 cc of fluid. 2. Chest radiograph to follow to evaluate for pneumothorax.
[2020-12-12] MEDS: dilTIAZem 60 mg Tablet 120 MG PO ×3 (06:23→21:56)
[2020-12-12 06:45] LABS: Basophils % 0.5 %; Eosinophils # 0.1 10^3/uL (0.0-0.8); Eosinophils % 1.3 %; Hematocrit 30.3 % (42.0-52.0); Lymphocytes # 0.9 10^3/uL (0.8-4.8); Lymphocytes % 10.6 %; Mean Corpuscular HGB Conc 36.3 g/dL (30.0-36.0); Mean Corpuscular Hemoglobin 33.4 pg (28.0-34.0); Mean Corpuscular Volume 92.1 fL (80-94); Mean Platelet Volume 9.7 fL (7.4-10.4); Monocytes # 0.8 10^3/uL (0.2-0.9); Monocytes % 9.7 %; Neutrophils # 6.57 10^3/uL (1.8-7.7); Neutrophils % 77.3 %; Nucleated Red Blood Cells % 0 %; Platelet Count 163 10^3/cmm (130-400); Red Blood Count 3.29 10^6/uL (4.1-5.3); Red Cell Distribution Width 14.6 % (12.1-15.1); White Blood Count 8.5 10^3/uL (4.0-10.0)
[2020-12-12 07:07] LABS: Alanine Aminotransferase 16 U/L (0-41); Albumin Level 2.9 g/dL (3.5-5.2); Alkaline Phosphatase 146 IU/L (40-130); Anion Gap 11.7 (5-19); Aspartate Amino Transferase 29 U/L (0-40); Blood Urea Nitrogen 16 mg/dL (6-20); Calcium 8.1 mg/dL (8.5-10.5); Carbon Dioxide 31 mmol/L (22-29); Chloride 75 mmol/L (98-107); Globulin 3.1 g/dL (1.3-4.6); Glomerular Filtration Rate 52.4 mL/min (90-130); Glucose 96 mg/dL (65-115); Magnesium 1.5 mg/dL (1.7-2.3); Osmolality Calculated 239 mOsm/kg (285-295); Potassium 3.7 mmol/L (3.5-5.1); Total Bilirubin 3.2 mg/dL (0.15-1.2)
[2020-12-12 07:15] LABS: Creatinine Clr Calc Pharmacy 78.8673; Sodium 114 mmol/L (136-145)
[2020-12-12 07:16] LABS: NT Pro B Type Natriuretic Pept 906 pg/mL (0-125)
--- NOTE | 2020-12-12 09:15 | XR_ITS ---
WS: [id number] PORTABLE CHEST HISTORY: thoracentesis COMPARISON: 12/11/2020 Status post LEFT thoracentesis. No pneumothorax. There is a small amount of fluid remaining. There is also linear atelectasis in the mid and lower LEFT lung. RIGHT lung is clear. Cardiac size: Normal. Mediastinum/Aorta: Normal mediastinum. No osseous abnormality seen. XR/XR chest 1V portable [id number] IMPRESSION: 1. No pneumothorax status post LEFT thoracentesis. 2. Small amount of residual pleural fluid with areas of subsegmental atelectas is throughout the LEFT lung.
[2020-12-12] MEDS: fluticasone nasal spray 16gm Btl 2 SPRAY NASAL ×2 (09:40→17:19)
[2020-12-12] MEDS: sodium chloride 1 gm Tablet PO ×2 (09:40→17:18)
[2020-12-12] MEDS: pantoprazole DR 40 mg Tablet PO (09:41)
[2020-12-12] MEDS: spironolactone 25 mg Tablet PO (09:41)
[2020-12-12] MEDS: lactulose oral liq 20 gm/30 mL UDC 30 GM PO (09:41)
[2020-12-12] MEDS: potassium chloride ER 20 mEq Tablet 40 MEQ PO (09:41)
[2020-12-12] MEDS: TRAMadol 50 mg Tablet PO ×2 (09:49→21:56)
--- NOTE | 2020-12-12 11:47 | PM.PN ---
Subjective Subjective: Interval history: Patient was seen and examined this morning, status post left-sided pleural effusion thoracentesis. 1800 cc straw-colored fluid removed. Post thoracentesis chest x-ray: No pneumothorax: Appropriate lung expansion. Currently deny chest pain, sob has improved, was seen laying flat. Saturating well on R/A. Vitals/I&O/Wt Last Vital Signs Temp 98.7 F 12/12/20 08:00 Pulse 83 12/12/20 08:00 Resp 16 12/12/20 08:00 BP 123/70 12/12/20 08:00 Pulse Ox 91 12/12/20 07:56 12/11/20 12/12/20 12/12/20 22:59 06:59 14:59 Intake Total 360 / 480 Output Total 350 / 550 675 / 1225 Balance 10 70 -675 / -745 Weight last 48 hrs Weight 120.202 kg Physical Exam Const: COMMON NORMALS: patient oriented x3 HENMT: COMMON NORMALS: normocephalic and atraumatic HEAD & SCALP: normocephalic and atraumatic Chest: CHEST: Yes Symmetrical chest wall rise Resp: COMMON NORMALS: normal respiratory effort EFFORT & INSPECTION: Yes symmetric chest movement OTHER: Diminished air entry b/l lt > rt Cardio: COMMON NORMALS: regular rate, regular rhythm, S1 normal heart sound present, S2 normal heart sound present, No gallops present (Cardio), No murmurs present (Cardio), No rub (Cardio) and Peripheral pulses 2+ throughout RATE: regular rate RHYTHM: regular rhythm HEART SOUNDS: S1 normal heart sound present and S2 normal heart sound present PERIPHERAL PULSES: Peripheral pulses 2+ throughout GI: COMMON NORMALS: Normal to inspection, nondistended, normoactive bowel sounds present, Soft to palpation, non-tender, No hepatosplenomegaly present and no masses AUSCULTATION: Yes normoactive bowel sounds PALPATION: Yes Soft to palpation and Yes No hepatosplenomegaly present RECTAL EXAM: Yes deferred Extremity: COMMON NORMALS: no clubbing, cyanosis or edema and no pedal edema Neuro: COMMON NORMALS: patient oriented x3 Data : 12/12/20 06:27 12/12/20 06:27 A&P Assessment and plan (1) Chest pain: Status: Acute Qualifiers: Chest pain type: unspecified Qualified Code(s): R07.9 - Chest pain, unspecified (2) Chronic hyponatremia: Status: Acute (3) Pleural effusion associated with hepatic disorder: Status: Acute (4) Ascites: Status: Acute (5) Atrial fibrillation and flutter: Status: Acute (6) Laceration of left foot: Status: Acute Qualifiers: Encounter type: subsequent encounter Qualified Code(s): S91.312D - Laceration without foreign body, left foot, subsequent encounter Additional A&P Information Pleuritic chest Patient recently had 1 L left-sided thoracentesis. Will Plan for lt sided thoracentesis Recurrence of left-sided pleural effusion, will consider cardiothoracic consult for pleurodesis versus drain placement No active chest pain, EKG without ischemic or infarctive changes, troponin not similarly high Bedside ultrasound done: Moderate to large left-sided simple pleural effusion. s/p status post left-sided pleural effusion thoracentesis. 1800 cc straw-colored fluid removed. Post thoracentesis chest x-ray: No pneumothorax: Appropriate lung expansion. Will monitor for reexpansion pulmonary effusion. Lasix 40 mg I.V Q12 H Daily Acute on chronic asymptomatic hypervolemic hyponatremia: Sodium check every every 6 hours No active neurological signs or symptoms Patient is drinking 50 ounces of beer every day which seems to be the etiology I would not repeat hyponatremia work-up Check alcohol level Fluid restriction along with use of Lasix Salt tablet 1 gm q12 h Daily. #A.fib : Currently in sinus Not on Ac Due to high risk for bleeding # Ascites : Patient manages his peritoneal catheter for recurrent ascites Lasix 40 mg I.V Q12 H Daily Spironolactone 25 mg p.o. 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 Continue lasix 40 mg I.V Q12 H Daily Daily I/O Daily weight 2D ECHO : 05/2020: The septum, anteroseptum and the inferior wall segments appear to be hypokinetic.Overall ejection fraction around 40-45%. Repeat 2D echo Laceration of left foot Good granulation tissue without any active signs related #Chronic liver disease without acute decompensation No active hepatic encephalopathy lactulose 30 mg po TID and rifaximin Patient manages his peritoneal catheter for recurrent ascites. Albumin 25 gm q12 h for 2 doses today. Abdomen nontender, SBP less likely #Hypokalemia: Repleted Cardiac diet DVT prophylaxis currently on hold in case he would go for any intervention we will keep him on SCDs for now Resume anticoagulating agent after the procedure Full code Attestations Medical Necessity Statement*: Patient needs to be in hospital for the management of recurrent pleural effusion, severe chronic hyponatremia. Coding Level of Care Code Acute Auto Glass Technician for [facility] Fwd Exam Detailed Diagnoses Chest pain R07.9 Chest pain type: unspecified Chronic hyponatremia E87.1 Pleural effusion associated with hepatic disorder K76.9; J91.8 Ascites R18.8 Atrial fibrillation and flutter I48.91; I48.92 Laceration of left foot S91.312D Encounter type: subsequent encounter
--- NOTE | 2020-12-12 12:25 | PC.CHAP ---
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 shop fitter visit [] Patient/Family/Request visit [] Outpatient visit [] Follow-up visit [] Physician referral [] Code/Alert [x] Routine visit [] Staff referral [] Actively dying [x] Patient sleeping [] Family support [] [] Out of room [] Palliative care [] [] Receiving care in room [] Pre-surgical visit [] Trauma [] Long length of stay [] ICU visit [] Other: Relational/Emotional Strength [] Patient feels connected with others/family/visitors/staff [] Distress [] Loneliness/isolation [] Abandonment Spirituality of Patient [] Person of Jana [] Attends Jehovah'S Witness of their Jana [] Believes in Prayer [] Reads Bible or Jewish materials [] There are Spiritual issues to be addressed Body Stylist Interventions [] Prayer [] Active listening [] Non-anxious presence [] Spiritual/emotional support [] Crisis/trauma care [] Spiritual counseling [] Bereavement support [] Provided bereavement packet [] Provided Bible/devotional materials [] Provided toy/stuffed animal, coloring book to patient or family member [] Provided Communion [] Anointing/[place] [] Salvation [] Completed spiritual assessment [] Other: Impact on Illness or Injury [] Angry [] Fearful [] Anxious [] Often cries [] Exhaustion [] Unable to work [] Unable to attend church [] Unable to walk/stand [] Unable to read [] Unable to drive [] Unable to eat/drink [] Unable to sleep [] Unable to be with family [] Patient intubated [] Other: Summary Time spent with patient
[2020-12-12] MEDS: ipratropium-albuterol 3 mL Neb INHALATION (20:38)
[2020-12-13] VITALS (10 sets, daily range): BP systolic 95–122; BP diastolic 58–75; PULSE 74–88; RESP 14–18; TEMP 36.6–37.2; O2SAT 94–98
[2020-12-13] MEDS: ondansetron 2 mg/ML SDV 2 mL 4 MG IVP ×4 (05:06→22:13)
[2020-12-13] MEDS: FUROsemide 10 mg/mL SDV 4mL 40 MG IVP (05:07)
[2020-12-13 05:44] LABS: Alanine Aminotransferase 12 U/L (0-41); Albumin Level 3.3 g/dL (3.5-5.2); Alkaline Phosphatase 118 IU/L (40-130); Aspartate Amino Transferase 27 U/L (0-40); Blood Urea Nitrogen 15 mg/dL (6-20); Calcium 8.6 mg/dL (8.5-10.5); Carbon Dioxide 33 mmol/L (22-29); Chloride 81 mmol/L (98-107); Globulin 2.7 g/dL (1.3-4.6); Glomerular Filtration Rate 52.4 mL/min (90-130); Glucose 87 mg/dL (65-115); Osmolality Calculated 250 mOsm/kg (285-295); Sodium 120 mmol/L (136-145); Total Bilirubin 2.8 mg/dL (0.15-1.2)
[2020-12-13 05:47] LABS: Creatinine Clr Calc Pharmacy 78.8673
[2020-12-13 05:48] LABS: Anion Gap 10.4 (5-19); Potassium 4.4 mmol/L (3.5-5.1)
[2020-12-13] MEDS: dilTIAZem 60 mg Tablet 120 MG PO ×3 (06:06→22:00)
[2020-12-13] MEDS: potassium chloride ER 20 mEq Tablet 40 MEQ PO (08:09)
[2020-12-13] MEDS: TRAMadol 50 mg Tablet PO ×2 (08:13→22:05)
[2020-12-13] MEDS: lactulose oral liq 20 gm/30 mL UDC 30 GM PO (08:13)
[2020-12-13] MEDS: sodium chloride 1 gm Tablet PO ×2 (08:13→17:14)
[2020-12-13] MEDS: fluticasone nasal spray 16gm Btl 2 SPRAY NASAL ×2 (08:13→17:14)
[2020-12-13] MEDS: ipratropium-albuterol 3 mL Neb INHALATION ×2 (09:08→20:31)
--- NOTE | 2020-12-13 09:36 | P.PN_ITS ---
Subjective Subjective: Interval history: Patient was seen and examined this morning,sob has improved,he is able to lie comfortably flat in bed.Did self paracentesis yesterday. Vitals/I&O/Wt Last Vital Signs Temp 98.8 F 12/13/20 07:54 Pulse 74 12/13/20 09:14 Resp 16 12/13/20 09:05 BP 113/66 12/13/20 07:54 Pulse Ox 98 12/13/20 09:05 12/12/20 12/13/20 12/13/20 22:59 06:59 14:59 Intake Total 580 / 820 220 / 1040 120 / 120 Output Total 5075 / 5075 650 / 5725 Balance -4495 / -4255 -430 / -4685 120 / 120 Physical Exam Const: COMMON NORMALS: patient oriented x3 HENMT: COMMON NORMALS: normocephalic and atraumatic HEAD & SCALP: normocephalic and atraumatic Chest: CHEST: Yes Symmetrical chest wall rise Resp: COMMON NORMALS: normal respiratory effort EFFORT & INSPECTION: Yes sy mmetric chest movement OTHER: Diminished air entry b/l lt > rt Cardio: COMMON NORMALS: regular rate, regular rhythm, S1 normal heart sound present, S2 normal heart sound present, No gallops present (Cardio), No murmurs present (Cardio), No rub (Cardio) and Peripheral pulses 2+ throughout RATE: regular rate RHYTHM: regular rhythm HEART SOUNDS: S1 normal heart sound present and S2 normal heart sound present PERIPHERAL PULSES: Peripheral pulses 2+ throughout GI: COMMON NORMALS: Normal to inspection, nondistended, normoactive bowel sounds present, Soft to palpation, non-tender, No hepatosplenomegaly present and no masses AUSCULTATION: Yes normoactive bowel sounds PALPATION: Yes Soft to palpation and Yes No hepatosplenomegaly present RECTAL EXAM: Yes deferred Extremity: COMMON NORMALS: no clubbing, cyanosis or edema and no pedal edema Neuro: COMMON NORMALS: patient oriented x3 Data : 12/12/20 06:27 12/13/20 05:08 A&P Assessment and plan (1) Chest pain: Status: Acute Qualifiers: Chest pain type: unspecified Qualified Code(s): R07.9 - Chest pain, unspecified (2) Chronic hyponatremia: Status: Acute (3) Pleural effusion associated with hepatic disorder: Status: Acute (4) Ascites: Status: Acute (5) Atrial fibrillation and flutter: Status: Acute (6) Laceration of left foot: Status: Acute Qualifiers: Encounter type: subsequent encounter Qualified Code(s): S91.312D - Laceration without foreign body, left foot, subsequent encounter Additional A&P Information Pleuritic chest: Resolved Patient recently had 1 L left-sided thoracentesis. Will Plan for lt sided thoracentesis Recurrence of left-sided pleural effusion, will consider cardiothoracic consult for pleurodesis versus drain placement No active chest pain, EKG without ischemic or infarctive changes, troponin not similarly high Bedside ultrasound done: Moderate to large left-sided simple pleural effusion. s/p status post left-sided pleural effusion thoracentesis. 1800 cc straw-colored fluid removed. Post thoracentesis chest x-ray: No pneumothorax: Appropriate lung expansion. Will monitor for reexpansion pulmonary effusion. Intially on Lasix 40 mg I.V Q12 H Daily.was Transitioned to lasix 40 mg po daily Acute on chronic asymptomatic hypervolemic hyponatremia:Improved : Current Serum Sodium is : 120 No active neurological signs or symptoms. Monitor BMP Fluid restriction along with use of Lasix Salt tablet 1 gm q12 h Daily. #A.fib : Currently in sinus Not on Ac Due to high risk for bleeding # Ascites : Patient manages his peritoneal catheter for recurrent ascites Lasix 40 mg Po Daily Spironolactone 25 mg p.o. 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 Continue lasix 40 mg I.V Q12 H Daily Daily I/O Daily weight 2D ECHO : 05/2020: The septum, anteroseptum and the inferior wall segments appear to be hypokinetic.Overall ejection fraction around 40-45%. Laceration of left foot Good granulation tissue without any active signs related #Chronic liver disease without acute decompensation No active hepatic encephalopathy lactulose 30 mg po TID and rifaximin Patient manages his peritoneal catheter for recurrent ascites. Albumin 25 gm q12 h for 2 doses today. Abdomen nontender, SBP less likely #Hypokalemia: Repleted Cardiac diet DVT prophylaxis currently on hold in case he would go for any intervention we will keep him on SCDs for now Resume anticoagulating agent after the procedure Full code Attestations Medical Necessity Statement*: Patient needs to be in hospital for the management of recurrent pleural effusion, ascites, hyponatremia Coding Level of Care Code Acute [employer] for [facility]g Fwd Diagnoses Chest pain R07.9 Chest pain type: unspecified Chronic hyponatremia E87.1 Pleural effusion associated with hepatic disorder K76.9; J91.8 Ascites R18.8 Atrial fibrillation and flutter I48.91; I48.92 Laceration of left foot S91.312D Encounter type: subsequent encounter
[2020-12-13] MEDS: pantoprazole DR 40 mg Tablet PO (10:51)
[2020-12-13] MEDS: spironolactone 25 mg Tablet PO (10:52)
[2020-12-14] VITALS: BP 102/63; PULSE 80; RESP 17; TEMP 36.9; O2SAT 97
[2020-12-14] MEDS: ondansetron 2 mg/ML SDV 2 mL 4 MG IVP ×2 (03:48→10:28)
[2020-12-14 04:00] VITALS: BP 106/63; PULSE 67; RESP 17; TEMP 36.9; O2SAT 97
[2020-12-14] MEDS: dilTIAZem 60 mg Tablet 120 MG PO (06:11)
[2020-12-14 06:51] LABS: Alanine Aminotransferase 12 U/L (0-41); Albumin Level 3.1 g/dL (3.5-5.2); Alkaline Phosphatase 130 IU/L (40-130); Blood Urea Nitrogen 16 mg/dL (6-20); Calcium 8.3 mg/dL (8.5-10.5); Carbon Dioxide 31 mmol/L (22-29); Chloride 80 mmol/L (98-107); Globulin 2.2 g/dL (1.3-4.6); Glomerular Filtration Rate 44.9 mL/min (90-130); Glucose 92 mg/dL (65-115); Osmolality Calculated 249 mOsm/kg (285-295); Total Bilirubin 1.8 mg/dL (0.15-1.2); Total Protein 5.3 g/dL (6.6-8.7)
[2020-12-14 07:13] LABS: Anion Gap 12.5 (5-19); Potassium 4.5 mmol/L (3.5-5.1); Sodium 119 mmol/L (136-145)
[2020-12-14 07:14] LABS: Aspartate Amino Transferase 32 U/L (0-40)
[2020-12-14 07:41] VITALS: BP 114/67; PULSE 74; RESP 18; TEMP 530.9; TEMP 987.6; O2SAT 97
[2020-12-14] MEDS: sodium chloride 1 gm Tablet PO (08:14)
[2020-12-14] MEDS: lactulose oral liq 20 gm/30 mL UDC 30 GM PO (08:14)
[2020-12-14] MEDS: potassium chloride ER 20 mEq Tablet 40 MEQ PO (08:14)
[2020-12-14] MEDS: fluticasone nasal spray 16gm Btl 2 SPRAY NASAL (08:15)
[2020-12-14] MEDS: TRAMadol 50 mg Tablet PO (08:36)
[2020-12-14 10:21] VITALS: PULSE 83; RESP 17; O2SAT 95
--- NOTE | 2020-12-14 10:23 | P.DS_ITS ---
Discharge Providers Date of Admission: 12/11/20 06:02 Date of Discharge: December 14, 2020 Attending Provider at Admission: Abdiel Cardona MD Attending Provider at Discharge: Matthew Koroma MD Primary Care Provider: Yosvany Segovia MD Diagnoses at Discharge Discharge Diagnosis (1) Chest pain: Status: Acute Permanent problem details: Pleuritic chest pain: Resolved; Qualifiers: Chest pain type: unspecified Qualified Code(s): R07.9 - Chest pain, unspecified (2) Chronic hyponatremia: Status: Chronic (3) Pleural effusion associated with hepatic disorder: Status: Chronic (4) Ascites: Status: Chronic (5) Atrial fibrillation and flutter: Status: Chronic Reason for Visit Reason for Visit: chest pain Hospital Course Hospital Course past medical history of end-stage liver disease, with peritoneal catheter for ascites, history of esophageal varices, continued alcohol use, history of atrial fibrillation not on anticoagulation due to risk of bleeding, chronic hyponatremia secondary to liver disease, alcoholism and noncompliance with Lasix therapy, who presents to [facility] with pleuritic chest pain likely secondary to left-sided pleural effusion. Patient has a history of recurrent pleural effusion, likely secondary to decompensated liver cirrhosis and ascites, Currently the pleural effusion has been attributed to hepatic hydrothorax, even though it is left-sided, during this hospital stay he underwent left-sided thoracentesis, with removal of 1.8 Ls straw-colored effusion. His pleuritic chest pain had resolved, EKG and troponin trends, were not indicative of any acute myocardial insult.Patient prior 2D echo done in May 2020: The septum, anteroseptum and the inferior wall segments appear to be hypokinetic.Overall ejection fraction around 40-45%, he also has history of A. fib and a flutter, he will need to follow cardiology as an outpatient, for further work-up. Patient has history of chronic hypervolemic hyponatremia, secondary to end-stage liver disease. He came in with us serum sodium of 114 at the time of discharge serum sodium was close to 119 ,he was asymptomatic. He has been advised to indulge in healthy diet and eat extra meals, avoid alcohol intake. For his chronic recurrent ascites Patient self manages his peritoneal catheter. Patient has been advised to noted pulmonary medicine as an outpatient management of recurrent left-sided pleural effusion as well as being compliant with his ascites drainage.Patient responded well to the above medical management and is being discharged in stable condition. Physical Exam Const: COMMON NORMALS: patient oriented x3 HENMT: COMMON NORMALS: normocephalic and atraumatic HEAD & SCALP: normocephalic and atraumatic Chest: CHEST: Yes Symmetrical chest wall rise Resp: COMMON NORMALS: normal respiratory effort EFFORT & INSPECTION: Yes symmetric chest movement OTHER: Diminished air entry b/l lt > rt Cardio: COMMON NORMALS: regular rate, regular rhythm, S1 normal heart sound present, S2 normal heart sound present, No gallops present (Cardio), No murmurs present (Cardio), No rub (Cardio) and Peripheral pulses 2+ throughout RATE: regular rate RHYTHM: regular rhythm HEART SOUNDS: S1 normal heart sound present and S2 normal heart sound present PERIPHERAL PULSES: Peripheral pulses 2+ throughout GI: COMMON NORMALS: Normal to inspection, nondistended, normoactive bowel sounds present, Soft to palpation, non-tender, No hepatosplenomegaly present and no masses AUSCULTATION: Yes normoactive bowel sounds PALPATION: Yes Soft to palpation and Yes No hepatosplenomegaly present RECTAL EXAM: Yes deferred Extremity: COMMON NORMALS: no clubbing, cyanosis or edema and no pedal edema Neuro: COMMON NORMALS: patient oriented x3 Discharge Data Data Completed and Pending: Completed Studies During Hospitalization Category Date Time Status CT chest wo con 7 1250 Urgent Cat Scan 12/11/20 02:34 Completed XR chest 1V kasia ble [id number] Stat Exams 12/11/20 01:56 Completed XR chest 1V kasia ble [id number] Stat Exams 12/12/20 09:15 Completed US thoracentesis [id number] Routine Ultrasound 12/12/20 05:00 Completed Labs from last 24 hours 12/14/20 05:30 Sodium 119 L* Potassium 4.5 Chloride 80 L Carbon Dioxide 31 H Anion Gap 12.5 BUN 16 Creatinine 1.6 H GFR Calculation 44.9 L Glucose 92 Calculated Osmolal ity 249 L Calcium 8.3 L Total Bilirubin 1.8 H AST 32 ALT 12 Alkaline Phosphata se 130 Total Protein 5.3 L Albumin 3.1 L Globulin 2.2 Vitals: Last Vital Signs Temp 987.6 F H 12/14/20 07:41 Pulse 83 12/14/20 10:21 Resp 17 12/14/20 10:21 BP 114/67 12/14/20 07:41 Pulse Ox 95 12/14/20 10:21 Discharge Plan Discharge Patient Disposition: Home Condition: Stable Prescriptions: Continued sildenafil 100 mg tablet 100 mg PO DAILY PRN (Reason: OTHER) RF: 0 ferrous sulfate 325 mg (65 mg iron) tablet 325 mg PO DAILY@16 RF: 0 pantoprazole 40 mg tablet,delayed release (DR/EC) 40 mg PO DAILY@10 RF: 0 vitamin B complex [B Complex-Vitamin B12] Tablet 1 tab PO DAILY@16 RF: 0 (DME) [employer] See Rx Instructions .Route .MEDSUPPLY Qty: 1 RF: 0 tadalafil 20 mg tablet 20 mg PO DAILY PRN (Reason: sexual activity) Qty: 20 RF: 12 (DME) [place] [employer] boot See Rx Instructions .Route .MEDSUPPLY Qty: 1 RF: 0 tramadol 50 mg Tablet 50 mg PO BID PRN (Reason: Pain) RF: 0 Ocuvite Adult 50 Plus 250-5-1 mg Capsule 2 cap PO DAILY@10 RF: 0 folic acid 1 mg tablet 1 mg PO DAILY@10 RF: 0 spironolactone 25 mg Tablet 25 mg PO DAILY@10 RF: 0 fluticasone propionate 50 mcg/actuation spray,suspension See Rx Instructions .ROUTE .COMPLEX RF: 0 diltiazem HCl 120 mg tablet 120 mg PO Q8H RF: 0 albuterol sulfate 90 mcg/actuation HFA aerosol inhaler 2 inh INHALATION Q4H PRN (Reason: shortness of breath/wheezing) RF: 0 Vitamin B-1 1 tab PO DAILY@1000 RF: 0 Held furosemide [Lasix] 40 mg tablet 60 mg PO DAILY@10 RF: 0 Hold Instructions: Resume on 12/18/20. Discharge Orders: Discharge Order (Routine); Ordered 12/14/20 Ordered By: Matthew Koroma Referrals: John Del Valle MD [Physician] - 12/28/20 9:30 am Yosvany Segovia MD [Primary Care Provider] - 12/25/20 3:15 pm Binta Pitt MD [Physician] - 12/28/20 8:30 am Discharge Diet: Low Salt Discharge Activity: Resume usual activity Patient Instructions: Ascites, Hyponatremia, Thoracentesis (DC), Pleural Effusion Discharge Attestations Time Spent in Discharge Care*: less than 30 min Specific Discharge Activities: educating patient, educating and/or supporting family/caregiver, discussing with pcp/other providers, discussing with bilingual patient support caseworker/social workers/dc planners, documenting/other paperwork and evaluating patient/reviewing data Status at Discharge: Cognitive status at discharge: cognitively intact , Behavioral status at discharge: cooperative , Quality Metrics Clinical Quality Measures During this hospital stay, did patient experience: None Coding Level of Care Code Acute Chg FW DC note Exam Detailed Diagnoses Chest pain R07.9 Chest pain type: unspecified Chronic hyponatremia E87.1 Pleural effusion associated with hepatic disorder K76.9; J91.8 Ascites R18.8 Atrial fibrillation and flutter I48.91; I48.92
[2020-12-14] MEDS: pantoprazole DR 40 mg Tablet PO (10:28)
[2020-12-14] MEDS: spironolactone 25 mg Tablet PO (10:28)
[2020-12-14 11:38] VITALS: BP 108/64; PULSE 76; RESP 18; TEMP 37.1; O2SAT 95
[2020-12-14 13:37] VITALS: BP 108/64; PULSE 76; RESP 18; TEMP 37.1; O2SAT 95
== END 2020-12-14 13:47 | disposition home or self-care (01) | DRG 641 ==
LOC: ER 04:50 → MEDSURG 06:43
PROVIDERS: Nurse Practitioner Family; Admitting Provider Internal Medicine; Emergency Provider Emergency Medicine; PCP Family Medicine; Visit Provider Internal Medicine
DX: E87.1 Hypo-osmolality and hyponatremia (principal); I42.6 Alcoholic cardiomyopathy; J91.8 Pleural effusion in other conditions classified elsewhere; R07.81 Pleurodynia; I48.91 Unspecified atrial fibrillation; T50.1X6A Underdosing of loop [high-ceiling] diuretics, initial encounter; Z91.128 Patient's intentional underdosing of medication regimen for other reason; E86.1 Hypovolemia; K72.90 Hepatic failure, unspecified without coma; K70.31 Alcoholic cirrhosis of liver with ascites; F10.10 Alcohol abuse, uncomplicated; Y90.9 Presence of alcohol in blood, level not specified; M14.60 Charcot's joint, unspecified site; N52.9 Male erectile dysfunction, unspecified; G62.9 Polyneuropathy, unspecified; N48.6 Induration penis plastica; Z87.01 Personal history of pneumonia (recurrent); I73.9 Peripheral vascular disease, unspecified; Z87.891 Personal history of nicotine dependence; S91.312D Laceration without foreign body, left foot, subsequent encounter; E87.6 Hypokalemia; Z79.891 Long term (current) use of opiate analgesic; Z96.89 Presence of other specified functional implants
CPT/HCPCS: 32555; 36415; 71045; 71250; 80053; 80306; 80307; 83690; 83735; 83880; 84295; 84484; 85025; 85378; 85610; 93005; 94640; 96374; 99285; J1940; J2405; P9047

== ENCOUNTER 2020-12-28 10:38 | Outpatient (CLI) | payer OTHER, SELFPAY ==
--- NOTE | 2020-12-28 10:51 | XR_ITS ---
WS: [id number] PA and lateral chest, 12/28/2020 Clinical Data: rule out pleural effusion Comparison: Portable chest, 12/12/2020. Findings: There is a patchy opacity in left lower lobe. On the lateral film this may recommend presen t a loculated effusion. The right lung is clear. The heart size is at the upper limits of normal. No nodules or masses are seen. XR/XR chest 2V* [id number] Impression: Patchy opacity in left lower lobe which may represent loculated pleural effusio n.
== END 2020-12-28 10:39 | disposition home or self-care (01) ==
LOC: RAD 10:45
PROVIDERS: PCP Family Medicine; Visit Provider Internal Medicine Pulmonary Disease
DX: J90 Pleural effusion, not elsewhere classified (principal)
CPT/HCPCS: 71046

== ENCOUNTER → 2021-01-04 15:54 | Outpatient (BNVA) | payer OTHER, SELFPAY | PROVIDERS: PCP Family Medicine; Visit Provider Podiatrist Foot & Ankle Surgery | DX: M14.672 Charcot's joint, left ankle and foot (principal); M79.672 Pain in left foot | CPT/HCPCS: 73630 ==

== ENCOUNTER → 2021-01-11 16:19 | Outpatient (BNVA) | payer OTHER, SELFPAY | PROVIDERS: PCP Family Medicine; Visit Provider Internal Medicine Pulmonary Disease | DX: Z20.822 Contact with and (suspected) exposure to COVID-19 (principal); R06.00 Dyspnea, unspecified | CPT/HCPCS: 87635 ==

== ENCOUNTER 2021-01-12 15:21 | Observation (INO) | payer OTHER, SELFPAY ==
[2021-01-12 15:24] VITALS: BP 123/74; PULSE 86; RESP 18; TEMP 37.4; O2SAT 99; BMI 36.3
--- NOTE | 2021-01-12 17:11 | ED_ITS ---
Documented by User: Ghassan Cedeno DO 01/18/21 06:18 HPI - Weakness General: Chief complaint: Weakness Stated complaint: PCP RECOMEND COME FOR LOW SODIUM AND SOB Time Seen by Provider: 01/12/21 16:48 History of Present Illness: HPI Narrative: 55-year-old male presents to the emergency room with complaints of low sodium. Patient has a history ofAlcoholic liver cirrhosis. Some problems with ascites in the past has a history of congestive heart failure as well. Is been recommended he see a high speed warper tender but he has not yet seen one. He has recently seen pulmonology and cardiology. He supposed to be on lactulose but has not been taking it. He does not describe any confusion or disorientation. His mother is here with him he has no reports of abnormal behavior from her. Past medical history was reviewed. MD Complaint: generalized weakness Onset (ago): day(s) Duration: constant Location: generalized Migration: none Severity: severe Relieving factors: none Exacerbating factors: none Associated symptoms: Denies chest pain, chills, confusion, melena, decreased appetite, diaphoresis, dysuria, easy bruising, fever(s), headache(s), myalgias, nausea, rash, short of breath, syncope or vomiting Review of Systems Const: Denies: fever(s), chills or diaphoresis Card: Denies: chest pain or syncope GI: Denies: nausea, vomiting or melena : Denies: dysuria Neuro: Denies: headache(s) or confusion Avinash/Lymph: Denies: easy bruising PFSH ED PFSH: Medical History Acute dyspnea Acute hypokalemia Acute hyponatremia Ascites Ascites due to alcoholic cirrhosis Atrial fibrillation and flutter Atrial fibrillation with RVR Charcot's arthropathy Chest pain Pleuritic chest pain: Resolved; Chronic hyponatremia End-stage liver disease Erectile dysfunction ETOH abuse Fracture of fourth metatarsal bone of left foot History of abdominal paracentesis Hx of esophageal varices Hyperkalemia Hyponatremia Hyponatremia with excess extracellular fluid volume Laceration of left foot Neuropathy Peyronie disease Pleural effusion S/P Left thoracentesis wit removal of 1L,Transduative fluid Pleural effusion associated with hepatic disorder Pneumonia PVD (peripheral vascular disease) Surgical History H/O colonoscopy 10-12 yrs H/O esophagogastroduodenoscopy History of tonsillectomy Hx of umbilical hernia repair Hx of vasectomy Status post surgery (07/05/20) peritoneal catheter for ascites Family History Grandfather CAD (coronary artery disease) Grandmother CAD (coronary artery disease) Cancer Father Cancer Denies family history of Anesthesia complication Bleeding disorder Social History Smoking and tobacco status: former smoker Quit status (tobacco): has quit using tobacco Year quit tobacco: 2014 less than a [id number] Second hand smoke exposure: No Smoking risk assessment/counseling performed?: Yes Alcohol intake: current Alcohol intake frequency: 3 or more drinks per day Alcohol type: beer Adopted: No Caregiver/support person: Yes Lives independently: Yes Household members: children Marital status: Current occupational status: unemployed Pets and animals: Yes History of recent travel: No Current gender identity: Male Physical Exam Const: COMMON NORMALS: no acute distress GENERAL APPEARANCE: cooperative and comfortable ORIENTATION/CONSCIOUSNESS: Yes awake, Yes oriented to person, Yes oriented to place and Yes oriented to time HENMT: COMMON NORMALS: normocephalic, atraumatic and hearing grossly normal bilaterally HEAD & SCALP: normocephalic and atraumatic Eye: COMMON NORMALS: Equal, round and reactive pupils present, EOMs intact bilaterally, conjunctivae normal and no scleral icterus CONJUNCTIVA: Yes conjunctivae normal PUPIL: Yes Equal, round and reactive pupils present Neck/C-Spine: COMMON NORMALS: full ROM, no lymphadenopathy, supple and no JVD Lymph: LYMPHATIC: no lymphadenopathy noted and no lymphedema noted Resp: COMMON NORMALS: normal respiratory effort, No retractions, No use of accessory muscles and clear to auscultation bilaterally AUSCULTATION: clear t o auscultation bilaterally Cardio: COMMON NORMALS: no JVD, regular rate, regular rhythm and No murmurs present (Cardio) RATE: regular rate RHYTHM: regular rhythm GI: COMMON NORMALS: Soft to palpation and No hepatosplenomegaly present AUSCULTATION: Yes normoactive bowel sounds PALPATION: Yes Soft to palpation, No Tenderness to palpation present (GI), No Guarding due to palpation present (GI) and Yes No hepatosplenomegaly present Extremity: COMMON NORMALS: normal to inspection, capillary refill normal, no clubbing, cyanosis or edema, no calf tenderness and no pedal edema Neuro: SENSORIUM/ORIENTATION: Yes oriented to person, Yes oriented to place and Yes oriented to time Skin: COMMON NORMALS: no rashes or lesions noted GENERAL SKIN EXAM: no rashes or lesions noted Course Vital Signs: Vital signs: Vital Signs Temperature 98.7 F 01/14/21 19:50 Pulse Rate 86 01/14/21 19:50 Respiratory Rate 17 01/14/21 19:50 Blood Pressure 118/72 01/14/21 19:50 Pulse Oximetry 98 01/14/21 19:50 MDM - Weakness MDM Narrative: Medical decision making narrative: Laboratory work ordered. Care turned over to Dr. Dupont at change of shift please see his notes for final diagnosis and disposition Lab Data: Labs: Lab Results 01/12/21 01/12/21 01/12/21 Range/Units 17:30 17:30 17:30 WBC 8.0 (4.0-10.0) 10^3/ uL RBC 3.47 L (4.1-5.3) 10^6/u L Hgb 11.5 L (11.7-16.6) g/dL Hct 32.6 L (42.0-52.0) % MCV 93.9 (80-94) fL MCH 33.1 (28.0-34.0) pg MCHC 35.3 (30.0-36.0) g/dL RDW 14.6 (12.1-15.1) % Plt Count 160 (130-400) 10^3/c mm MPV 8.8 (7.4-10.4) fL Neut % (Auto) 83.7 % Lymph % (Auto) 4.0 % [place] % (Auto) 10.8 % Eos % (Auto) 0.3 % Baso % (Auto) 0.4 % Neut # (Auto) 6.70 (1.8-7.7) 10^3/u L Lymph # (Auto) 0.3 L (0.8-4.8) 10^3/u L [place] # (Auto) 0.9 (0.2-0.9) 10^3/u L Eos # (Auto) 0.0 (0.0-0.8) 10^3/u L Baso # (Auto) 0.0 (0.0-0.1) 10^3/u L Nucleated RBC % (a uto) 0 % Nucleated RBCs # 0.0 /100WBC PT (12.1-14.9) SECO NDS INR (0.8-1.2) APTT (23.9-36.7) SECO NDS Sodium 114 L* (136-145) mmol/L Potassium 4.5 (3.5-5.1) mmol/L Chloride 79 L (98-107) mmol/L Carbon Dioxide 28 (22-29) mmol/L Anion Gap 11.5 (5-19) BUN 11 (6-20) mg/dL Creatinine 1.3 H (0.7-1.2) mg/dL GFR Calculation 57.1 L (90-130) mL/min Glucose 121 H (65-115) mg/dL Calculated Osmolal ity 239 L (285-295) mOsm/k g Calcium 8.1 L (8.5-10.5) mg/dL Total Bilirubin 3.5 H (0.15-1.2) mg/dL AST 24 (0-40) U/L ALT 17 (0-41) U/L Alkaline Phosphata se 199 H (40-130) IU/L Ammonia 30 (16-60) umol/L Creatine Kinase 44 (39-308) U/L Total Protein 6.2 L (6.6-8.7) g/dL Albumin 3.2 L (3.5-5.2) g/dL Globulin 3.0 (1.3-4.6) g/dL Ethyl Alcohol < 10 (0-10) mg/dL 01/12/21 Range/Units 18:45 WBC (4.0-10.0) 10^3/ uL RBC (4.1-5.3) 10^6/u L Hgb (11.7-16.6) g/dL Hct (42.0-52.0) % MCV (80-94) fL MCH (28.0-34.0) pg MCHC (30.0-36.0) g/dL RDW (12.1-15.1) % Plt Count (130-400) 10^3/c mm MPV (7.4-10.4) fL Neut % (Auto) % Lymph % (Auto) % [place] % (Auto) % Eos % (Auto) % Baso % (Auto) % Neut # (Auto) (1.8-7.7) 10^3/u L Lymph # (Auto) (0.8-4.8) 10^3/u L [place] # (Auto) (0.2-0.9) 10^3/u L Eos # (Auto) (0.0-0.8) 10^3/u L Baso # (Auto) (0.0-0.1) 10^3/u L Nucleated RBC % (a uto) % Nucleated RBCs # /100WBC PT 15.60 H (12.1-14.9) SECO NDS INR 1.20 (0.8-1.2) APTT 35.1 (23.9-36.7) SECO NDS Sodium (136-145) mmol/L Potassium (3.5-5.1) mmol/L Chloride (98-107) mmol/L Carbon Dioxide (22-29) mmol/L Anion Gap (5-19) BUN (6-20) mg/dL Creatinine (0.7-1.2) mg/dL GFR Calculation (90-130) mL/min Glucose (65-115) mg/dL Calculated Osmolal ity (285-295) mOsm/k g Calcium (8.5-10.5) mg/dL Total Bilirubin (0.15-1.2) mg/dL AST (0-40) U/L ALT (0-41) U/L Alkaline Phosphata se (40-130) IU/L Ammonia (16-60) umol/L Creatine Kinase (39-308) U/L Total Protein (6.6-8.7) g/dL Albumin (3.5-5.2) g/dL Globulin (1.3-4.6) g/dL Ethyl Alcohol (0-10) mg/dL Discharge Plan Discharge Patient Disposition: Admitted As Inpatient Admit Provider: Abdiel Cardona Clinical Impression: Acute hyponatremia, Acute encephalopathy Condition: Stable Discharge Diet: Usual diet Discharge Activity: Resume usual activity Coding Level of Care Code 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 Fwd Documented by User: Reji Dupont DO 01/13/21 03:27 HPI - Weakness General: Chief complaint: Weakness Stated complaint: PCP RECOMEND COME FOR LOW SODIUM AND SOB Time Seen by Provider: 01/12/21 16:48 PFSH ED PFSH: Medical History Acute dyspnea Acute hypokalemia Acute hyponatremia Ascites Ascites due to alcoholic cirrhosis Atrial fibrillation and flutter Atrial fibrillation with RVR Charcot's arthropathy Chest pain Pleuritic chest pain: Resolved; Chronic hyponatremia End-stage liver disease Erectile dysfunction ETOH abuse Fracture of fourth metatarsal bone of left foot History of abdominal paracentesis Hx of esophageal varices Hyperkalemia Hyponatremia Hyponatremia with excess extracellular fluid volume Laceration of left foot Neuropathy Peyronie disease Pleural effusion S/P Left thoracentesis wit removal of 1L,Transduative fluid Pleural effusion associated with hepatic disorder Pneumonia PVD (peripheral vascular disease) Surgical History H/O colonoscopy 10-12 yrs H/O esophagogastroduodenoscopy History of tonsillectomy Hx of umbilical hernia repair Hx of vasectomy Status post surgery (07/05/20) peritoneal catheter for ascites Family History Grandfather CAD (coronary artery disease) Grandmother CAD (coronary artery disease) Cancer Father Cancer Denies family history of Anesthesia complication Bleeding disorder Social History Smoking and tobacco status: former smoker Quit status (tobacco): has quit using tobacco Year quit tobacco: 2014 less than a [id number] Second hand smoke exposure: No Smoking risk assessment/counseling performed?: Yes Alcohol intake: current Alcohol intake frequency: 3 or more drinks per day Alcohol type: beer Adopted: No Caregiver/support person: Yes Lives independently: Yes Household members: children Marital status: Current occupational status: unemployed Pets and animals: Yes History of recent travel: No Current gender identity: Male Course Consultations: Consultation #1: adrien Vital Signs: Vital signs: Vital Signs Temperature 98.7 F 01/14/21 19:50 Pulse Rate 86 01/14/21 19:50 Respiratory Rate 17 01/14/21 19:50 Blood Pressure 118/72 01/14/21 19:50 Pulse Oximetry 98 01/14/21 19:50 MDM - Weakness MDM Narrative: Medical decision making narrative: 55-year-old male checked out to me at shift change by Dr. Cedeno. This gentleman has a history of hyponatremia, likely due to history of alcoholism. He is here for weakness. His sodium level is quite low at 114. His hemoglobin is 11.5. White blood cell count of 8. He will be admitted for significant hyponatremia. He will be diuresed as well. Lab Data: Labs: Lab Results 01/12/21 01/12/21 01/12/21 Range/Units 17:30 17:30 17:30 WBC 8.0 (4.0-10.0) 10^3/ uL RBC 3.47 L (4.1-5.3) 10^6/u L Hgb 11.5 L (11.7-16.6) g/dL Hct 32.6 L (42.0-52.0) % MCV 93.9 (80-94) fL MCH 33.1 (28.0-34.0) pg MCHC 35.3 (30.0-36.0) g/dL RDW 14.6 (12.1-15.1) % Plt Count 160 (130-400) 10^3/c mm MPV 8.8 (7.4-10.4) fL Neut % (Auto) 83.7 % Lymph % (Auto) 4.0 % [place] % (Auto) 10.8 % Eos % (Auto) 0.3 % Baso % (Auto) 0.4 % Neut # (Auto) 6.70 (1.8-7.7) 10^3/u L Lymph # (Auto) 0.3 L (0.8-4.8) 10^3/u L [place] # (Auto) 0.9 (0.2-0.9) 10^3/u L Eos # (Auto) 0.0 (0.0-0.8) 10^3/u L Baso # (Auto) 0.0 (0.0-0.1) 10^3/u L Nucleated RBC % (a uto) 0 % Nucleated RBCs # 0.0 /100WBC PT (12.1-14.9) SECO NDS INR (0.8-1.2) APTT (23.9-36.7) SECO NDS Sodium 114 L* (136-145) mmol/L Potassium 4.5 (3.5-5.1) mmol/L Chloride 79 L (98-107) mmol/L Carbon Dioxide 28 (22-29) mmol/L Anion Gap 11.5 (5-19) BUN 11 (6-20) mg/dL Creatinine 1.3 H (0.7-1.2) mg/dL GFR Calculation 57.1 L (90-130) mL/min Glucose 121 H (65-115) mg/dL Calculated Osmolal ity 239 L (285-295) mOsm/k g Calcium 8.1 L (8.5-10.5) mg/dL Total Bilirubin 3.5 H (0.15-1.2) mg/dL AST 24 (0-40) U/L ALT 17 (0-41) U/L Alkaline Phosphata se 199 H (40-130) IU/L Ammonia 30 (16-60) umol/L Creatine Kinase 44 (39-308) U/L Total Protein 6.2 L (6.6-8.7) g/dL Albumin 3.2 L (3.5-5.2) g/dL Globulin 3.0 (1.3-4.6) g/dL Ethyl Alcohol < 10 (0-10) mg/dL 01/12/21 Range/Units 18:45 WBC (4.0-10.0) 10^3/ uL RBC (4.1-5.3) 10^6/u L Hgb (11.7-16.6) g/dL Hct (42.0-52.0) % MCV (80-94) fL MCH (28.0-34.0) pg MCHC (30.0-36.0) g/dL RDW (12.1-15.1) % Plt Count (130-400) 10^3/c mm MPV (7.4-10.4) fL Neut % (Auto) % Lymph % (Auto) % [place] % (Auto) % Eos % (Auto) % Baso % (Auto) % Neut # (Auto) (1.8-7.7) 10^3/u L Lymph # (Auto) (0.8-4.8) 10^3/u L [place] # (Auto) (0.2-0.9) 10^3/u L Eos # (Auto) (0.0-0.8) 10^3/u L Baso # (Auto) (0.0-0.1) 10^3/u L Nucleated RBC % (a uto) % Nucleated RBCs # /100WBC PT 15.60 H (12.1-14.9) SECO NDS INR 1.20 (0.8-1.2) APTT 35.1 (23.9-36.7) SECO NDS Sodium (136-145) mmol/L Potassium (3.5-5.1) mmol/L Chloride (98-107) mmol/L Carbon Dioxide (22-29) mmol/L Anion Gap (5-19) BUN (6-20) mg/dL Creatinine (0.7-1.2) mg/dL GFR Calculation (90-130) mL/min Glucose (65-115) mg/dL Calculated Osmolal ity (285-295) mOsm/k g Calcium (8.5-10.5) mg/dL Total Bilirubin (0.15-1.2) mg/dL AST (0-40) U/L ALT (0-41) U/L Alkaline Phosphata se (40-130) IU/L Ammonia (16-60) umol/L Creatine Kinase (39-308) U/L Total Protein (6.6-8.7) g/dL Albumin (3.5-5.2) g/dL Globulin (1.3-4.6) g/dL Ethyl Alcohol (0-10) mg/dL Discharge Plan Discharge Patient Disposition: Admitted As Inpatient Admit Provider: Abdiel Cardona Clinical Impression: Acute hyponatremia, Acute encephalopathy Condition: Stable Discharge Diet: Usual diet Discharge Activity: Resume usual activity Coding Level of Care Code 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
[2021-01-12 17:41] LABS: Basophils % 0.4 %; Eosinophils % 0.3 %; Hematocrit 32.6 % (42.0-52.0); Hemoglobin 11.5 g/dL (11.7-16.6); Lymphocytes # 0.3 10^3/uL (0.8-4.8); Mean Corpuscular HGB Conc 35.3 g/dL (30.0-36.0); Mean Corpuscular Hemoglobin 33.1 pg (28.0-34.0); Mean Corpuscular Volume 93.9 fL (80-94); Mean Platelet Volume 8.8 fL (7.4-10.4); Monocytes # 0.9 10^3/uL (0.2-0.9); Monocytes % 10.8 %; Neutrophils % 83.7 %; Nucleated Red Blood Cells % 0 %; Platelet Count 160 10^3/cmm (130-400); Red Blood Count 3.47 10^6/uL (4.1-5.3); Red Cell Distribution Width 14.6 % (12.1-15.1)
[2021-01-12 18:12] LABS: Alanine Aminotransferase 17 U/L (0-41); Albumin Level 3.2 g/dL (3.5-5.2); Alkaline Phosphatase 199 IU/L (40-130); Anion Gap 11.5 (5-19); Aspartate Amino Transferase 24 U/L (0-40); Blood Urea Nitrogen 11 mg/dL (6-20); Calcium 8.1 mg/dL (8.5-10.5); Carbon Dioxide 28 mmol/L (22-29); Chloride 79 mmol/L (98-107); Creatine Phosphokinase 44 U/L (39-308); Glomerular Filtration Rate 57.1 mL/min (90-130); Glucose 121 mg/dL (65-115); Osmolality Calculated 239 mOsm/kg (285-295); Potassium 4.5 mmol/L (3.5-5.1); Total Bilirubin 3.5 mg/dL (0.15-1.2); Total Protein 6.2 g/dL (6.6-8.7)
[2021-01-12 18:13] LABS: Ammonia 30 umol/L (16-60)
[2021-01-12 18:15] LABS: Alcohol Level < 10 mg/dL (0-10)
[2021-01-12 18:21] LABS: Sodium 114 mmol/L (136-145)
--- NOTE | 2021-01-12 19:02 | PC.NURSE ---
report received from GLEN Miller and care transferred to GLEN Johnson
[2021-01-12 19:08] LABS: Partial Thromboplastin Time 35.1 SECONDS (23.9-36.7)
[2021-01-12] MEDS: ondansetron 2 mg/ML SDV 2 mL 4 MG IVP (19:13)
[2021-01-12 19:15] VITALS: BP 113/79; PULSE 90; RESP 14; O2SAT 98
--- NOTE | 2021-01-12 19:35 | PC.NURSE ---
patient given small amount of ice chips by nurse with hcp approval.
--- NOTE | 2021-01-12 19:50 | PM.HP ---
Providers/Chief Complaint Primary Care Provider: Yosvany Segovia MD Chief Complaint: PCP RECOMEND COME FOR LOW SODIUM AND SOB History of Present Illness Yosvany Soto is a 55 year old male who has history of alcoholic liver disease presented today with chief complaint of generalized weakness and lethargy. Patient is stating that he abstained from alcohol for about 2 years but unfortunately relapsed and started drinking again, he is drinking 24 ounces of whiskey which would be 3 to 4 cans a day and when he drinks he would do so for 3 to 4 days in a week, he stating that he did not drink at all last month. He has not noticed any fever, shortness of breath, chest pain, he has a peritoneal drain which he manages himself no recent constipation, cough, sinus infection. He has not used lactulose and Lasix for quite some time. He is not on rifaximin. He is endorsing 1 bowel movement a day. He went to his PCP on Friday for blood work and results came back today which were consistent with sodium level of 114, he was asked to go to the ER for further evaluation. Is no distress any other symptoms other than generalized fatigue. Diagnostics in the ER revealed normal CBC, INR 1.2, sodium 114, low chloride 79, creatinine 1.3, bilirubin 3.5, alcohol level less than 10 Review of Systems Const: Reports: body aches, change in weight, fatigue and malaise; Denies: fever(s) Eyes: Denies: change in vision ENMT: Denies: throat pain Card: Denies: chest pain Resp: Reports: dyspnea GI: Reports: nausea; Denies: abdominal pain or vomiting : Denies: flank pain Musc: Denies: neck pain Skin/Breast: Reports: changing lesions Neuro: Denies: headache(s) Psych: Denies: anxiety Endo: Denies: polyuria Avinash/Lymph: Denies: easy bruising All/Imm: Denies: urticaria Medications/Allergies Home Medications Medication Instructions Recorded Confirmed Last Taken Type ferrous sulfate 325 mg (65 mg 325 mg PO DAILY@16 01/04/20 01/12/21 01/11/21 History iron) tablet pantoprazole 40 mg tablet,delayed 40 mg PO DAILY@10 01/04/20 01/12/21 01/12/21 History release sildenafil 100 mg tablet 100 mg PO DAILY PRN 01/04/20 01/12/21 Unknown History vitamin B complex 1 tab PO DAILY@16 01/04/20 01/12/21 12/10/20 History tadalafil 20 mg tablet 20 mg PO DAILY PRN #20 tab 01/10/20 01/12/21 Unknown Rx tramadol 50 mg PO BID PRN 05/05/20 01/12/21 01/12/21 History Ocuvite Adult 50 Plus 2 cap PO DAILY@10 08/04/20 01/12/21 01/12/21 History folic acid 1 mg PO DAILY@08/23/20 01/12/21 01/12/21 History furosemide [Lasix] 60 mg PO DAILY@08/23/20 01/12/21 01/12/21 History [place] boot #1 ea 09/01/20 01/12/21 Unknown Rx fluticasone propionate See Rx Instructions .ROUTE .COMPLEX 09/08/20 01/12/21 Unknown History [place] Walker #1 ea NS 10/02/20 01/12/21 Unknown Rx spironolactone 25 mg PO DAILY@10 11/23/20 01/12/21 01/12/21 History Vitamin B-1 1 tab PO DAILY@1000 12/11/20 01/12/21 01/12/21 History albuterol sulfate 2 inh INHALATION Q4H PRN 12/11/20 01/12/21 Unknown History diltiazem HCl 120 mg PO Q8H 12/11/20 01/12/21 01/12/21 History tiotropium bromide 2.5 2 puff INHALATION DAILY #4 g 12/28/20 01/12/21 Unknown Rx mcg/actuation mist for inhalation [place] Boot to the left and an #1 ea 01/04/21 01/12/21 Unknown Rx even-up applied to the right foot lactulose 10 g PO DAILY 01/12/21 01/12/21 Unknown History potassium chloride 20 meq PO BID 01/12/21 01/12/21 01/12/21 History Allergies Allergy/AdvReac Type Severity Reaction Status Date / Time Penicillins Allergy ALGY-Difficulty Verified 01/04/21 15:53 Breathing Sulfa (Sulfonamide Allergy Unknown Verified 01/04/21 15:53 Antibiotics) PFSH Acute PFSH: Medical History Acute dyspnea Acute hypokalemia Acute hyponatremia Ascites Ascites due to alcoholic cirrhosis Atrial fibrillation and flutter Atrial fibrillation with RVR Charcot's arthropathy Chest pain Pleuritic chest pain: Resolved; Chronic hyponatremia End-stage liver disease Erectile dysfunction ETOH abuse Fracture of fourth metatarsal bone of left foot History of abdominal paracentesis Hx of esophageal varices Hyperkalemia Hyponatremia Hyponatremia with excess extracellular fluid volume Laceration of left foot Neuropathy Peyronie disease Pleural effusion S/P Left thoracentesis wit removal of 1L,Transduative fluid Pleural effusion associated with hepatic disorder Pneumonia PVD (peripheral vascular disease) Surgical History H/O colonoscopy 10-12 yrs H/O esophagogastroduodenoscopy History of tonsillectomy Hx of umbilical hernia repair Hx of vasectomy Status post surgery (07/05/20) peritoneal catheter for ascites Family History Grandfather CAD (coronary artery disease) Grandmother CAD (coronary artery disease) Cancer Father Cancer Denies family history of Anesthesia complication Bleeding disorder Social History Smoking and tobacco status: former smoker Quit status (tobacco): has quit using tobacco Year quit tobacco: 2014 less than a [id number] Second hand smoke exposure: No Smoking risk assessment/counseling performed?: Yes Alcohol intake: current Alcohol intake frequency: 3 or more drinks per day Alcohol type: beer Adopted: No Caregiver/support person: Yes Lives independently: Yes Household members: children Marital status: Current occupational status: unemployed Pets and animals: Yes History of recent travel: No Current gender identity: Male Vitals/I&O/Wt Last Vital Signs Temp 99.3 F 01/12/21 15:24 Pulse 90 01/12/21 19:15 Resp 14 01/12/21 19:15 BP 113/79 01/12/21 19:15 Pulse Ox 98 01/12/21 19:15 Weight last 48 hrs Weight 124.738 kg Physical Exam Narrative: EXAM NARRATIVE: Pleasant cooperative middle-age male, morbidly obese, laying supine without any orthopnea or PND saturating well on room air No active chest pain shortness of breath fever or abdominal pain Mother is at the bedside S1, S2 no murmur appreciated Clinically looks fluid overloaded No acute respiratory distress no audible stridor or wheezing Nontender abdomen, distended, central obesity, ascites, prominent veins, right-sided peritoneal drain, no signs of cellulitis Lower extremity wrinkled skin however 1+ pitting edema Awake alert oriented x3 GCS 15 Scleral icterus positive No asterixis Data : 01/12/21 17:30 01/12/21 17:30 A&P Assessment and plan (1) Chronic hyponatremia: Status: Acute (2) Ascites due to alcoholic cirrhosis: Status: Acute (3) ETOH abuse: Status: Acute (4) End-stage liver disease: Status: Acute (5) CHF (congestive heart failure), NYHA class III: Status: Acute Qualifiers: Congestive heart failure type: systolic Congestive heart failure chronicity: unspecified Qualified Code(s): I50.20 - Unspecified systolic (congestive) heart failure (6) Acute renal failure: Status: Acute Qualifiers: Acute renal failure type: with acute tubular necrosis Qualified Code(s): N17.0 - Acute kidney failure with tubular necrosis Additional A&P Information Chronic hyponatremia Patient is clinically fluid overloaded Actively drinking alcohol 3-4 times a week drinks 4 cans of 24 ounces of whiskey Patient complaining of generalized malaise and fatigue, otherwise he is awake and alert oriented x3 GCS 15, asterixis negative I would initiate Lasix along spironolactone, would not request hyponatremia work-up, seem like his sodium stays between 114 -120s, Sodium level check every 6 hours Decompensated liver cirrhosis Asterixis negative no active signs of hepatic encephalopathy He has not been using lactulose or rifaximin I would add ceftriaxone along lactulose regimen and rifaximin No active abdominal pain, he is not septic, using ceftriaxone because of portal hypertension Has peritoneal drain which he manages himself MELD score Alcohol abuse: Patient unfortunately relapsed to drinking alcohol 3-4 times a week, in the past he was being considered for liver transplant CIWA protocol New class III congestive heart failure Clinically fluid overloaded with underlying end-stage liver disease, SAMI seems secondary to prerenal Anticipating improvement with diuresis Patient was able to lay flat no orthopnea or PND however require thoracentesis in the past, will request chest x-ray to monitor any pleural effusion recurrence Fluid restricted regular diet Full code DVT prophylaxis Lovenox,In case of worsening of creatinine can be switched to heparin, Attestations Medical Necessity Statement*: Anticipating discharge in less than 48 hours he has chronic hyponatremia currently drinking alcohol and needs overnight monitoring because of low sodium level 114 Time Spent in Patient Care: 40mins Coding Level of Care Code 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
[2021-01-12 20:02] VITALS: BP 119/86; PULSE 91; O2SAT 98
[2021-01-12 20:18] VITALS: BP 119/86; PULSE 101; RESP 18; O2SAT 98
[2021-01-12 20:30] VITALS: BP 134/77; PULSE 58; RESP 16; TEMP 36.4; O2SAT 99
--- NOTE | 2021-01-12 20:34 | PC.NURSE ---
hospitalist in room
[2021-01-12] MEDS: cefTRIAXone 2,000 MG in sodium chloride 0.9% (plus) 50 ML 100 MG IV (22:50)
[2021-01-12] MEDS: enoxaparin 40 mg/0.4 mL Syringe SUBCUT (22:52)
[2021-01-12] MEDS: TRAMadol 50 mg Tablet PO (22:56)
[2021-01-12 23:43] VITALS: BP 144/75; PULSE 93; RESP 20; TEMP 36.3; O2SAT 95
[2021-01-13] VITALS (9 sets, daily range): BP systolic 116–131; BP diastolic 65–83; PULSE 74–96; RESP 16–20; TEMP 36.6–36.9; O2SAT 92–97
[2021-01-13 00:38] LABS: Sodium 117 mmol/L (136-145)
[2021-01-13] MEDS: dilTIAZem 60 mg Tablet 120 MG PO ×3 (07:58→21:55)
[2021-01-13] MEDS: thiamine 100 mg Tablet PO (07:58)
[2021-01-13] MEDS: multivitamin therapeutic Tablet 1 TAB PO (07:59)
[2021-01-13] MEDS: potassium chloride ER 20 mEq Tablet PO ×2 (07:59→17:26)
[2021-01-13] MEDS: TRAMadol 50 mg Tablet PO ×2 (07:59→17:25)
[2021-01-13] MEDS: folic acid 1 mg Tablet PO (07:59)
[2021-01-13] MEDS: lactulose oral liq 20 gm/30 mL UDC 10 GM PO ×2 (08:00→17:25)
[2021-01-13 08:43] LABS: Blood Urea Nitrogen 12 mg/dL (6-20); Calcium 7.9 mg/dL (8.5-10.5); Carbon Dioxide 27 mmol/L (22-29); Chloride 80 mmol/L (98-107); Glomerular Filtration Rate 57.1 mL/min (90-130); Glucose 103 mg/dL (65-115); Osmolality Calculated 242 mOsm/kg (285-295)
[2021-01-13 09:25] LABS: Anion Gap 13.8 (5-19)
[2021-01-13 09:26] LABS: Potassium 4.8 mmol/L (3.5-5.1)
[2021-01-13 09:28] LABS: Sodium 116 mmol/L (136-145)
[2021-01-13] MEDS: spironolactone 25 mg Tablet PO (11:43)
[2021-01-13] MEDS: FUROsemide 40 mg Tablet 60 MG PO (11:43)
[2021-01-13] MEDS: pantoprazole DR 40 mg Tablet PO (11:43)
--- NOTE | 2021-01-13 14:06 | PM.PN ---
Subjective Subjective: Interval history: Overnight labs and H&P reviewed, currently on room air, however still complaining of subjective dyspnea. 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0 - Acute kidney failure with tubular necrosis Additional A&P Information Chronic hyponatremia Patient is clinically fluid overloaded Actively drinking alcohol 3-4 times a week drinks 4 cans of 24 ounces of whiskey Continue Lasix along spironolactone, baseline sodium stays between 114 -120s, not very different from his usual Decompensated liver cirrhosis Asterixis negative no active signs of hepatic encephalopathy He has not been using lactulose or rifaximin, currently ordered for inpatient use No active abdominal pain, he is not septic, discontinue ceftriaxone as no other signs of infection Has peritoneal drain which he manages himself Alcohol abuse: Patient unfortunately relapsed to drinking alcohol 3-4 times a week, in the past he was being considered for liver transplant [facility] protocol New class III congestive heart failure Clinically fluid overloaded with underlying end-stage liver disease, Renal function currently at baseline Anticipating improvement with diuresis Left pleural effusion, wheezing on exam today, add duo nebs inhalation every 4 as needed, Additional lasix 40m g iv today Fluid restricted regular diet Full code DVT prophylaxis Lovenox,In case of worsening of creatinine can be switched to heparin, Attestations Medical Necessity Statement*: Need for IV diuresis today, wheezing on exam, addition of nebulization, monitor for improvement Coding Level of Care Code Acute Layer Out for martin Fwd Diagnoses Chronic hyponatremia E87.1 Ascites due to alcoholic cirrhosis K70.31 ETOH abuse F10.10 End-stage liver disease K72.90 CHF (congestive heart failure), NYHA class III I50.20 Congestive heart failure type: systolic Congestive heart failure chronicity: unspecified Acute renal failure N17.0 Acute renal failure type: with acute tubular necrosis
[2021-01-13] MEDS: sodium chloride 1 gm Tablet PO (14:56)
[2021-01-13] MEDS: FUROsemide 10 mg/mL SDV 2mL 40 MG IVP (14:56)
--- NOTE | 2021-01-13 19:00 | PC.NURSE ---
Report to Addie HEBERT at this time.
[2021-01-13] MEDS: ipratropium-albuterol 3 mL Neb INHALATION (19:45)
[2021-01-13] MEDS: enoxaparin 40 mg/0.4 mL Syringe SUBCUT (21:54)
[2021-01-14 03:20] VITALS: BP 125/70; PULSE 86; RESP 18; TEMP 36.8; O2SAT 95
[2021-01-14 07:12] VITALS: BP 114/70; PULSE 88; RESP 16; TEMP 37.1; O2SAT 97
[2021-01-14 07:33] VITALS: PULSE 85; RESP 17; O2SAT 94
[2021-01-14 07:42] LABS: Alanine Aminotransferase 12 U/L (0-41); Albumin Level 2.8 g/dL (3.5-5.2); Alkaline Phosphatase 175 IU/L (40-130); Anion Gap 14.5 (5-19); Aspartate Amino Transferase 22 U/L (0-40); Blood Urea Nitrogen 14 mg/dL (6-20); Calcium 7.6 mg/dL (8.5-10.5); Carbon Dioxide 25 mmol/L (22-29); Chloride 83 mmol/L (98-107); Globulin 2.7 g/dL (1.3-4.6); Glomerular Filtration Rate 52.4 mL/min (90-130); Glucose 92 mg/dL (65-115); Osmolality Calculated 246 mOsm/kg (285-295); Total Bilirubin 1.8 mg/dL (0.15-1.2); Total Protein 5.5 g/dL (6.6-8.7)
[2021-01-14 07:51] LABS: Potassium 4.5 mmol/L (3.5-5.1)
[2021-01-14 07:53] LABS: Sodium 118 mmol/L (136-145)
[2021-01-14] MEDS: dilTIAZem 60 mg Tablet 120 MG PO ×2 (08:02→17:12)
[2021-01-14] MEDS: multivitamin therapeutic Tablet 1 TAB PO (08:03)
[2021-01-14] MEDS: thiamine 100 mg Tablet PO (08:03)
[2021-01-14] MEDS: lactulose oral liq 20 gm/30 mL UDC 10 GM PO (08:03)
[2021-01-14] MEDS: TRAMadol 50 mg Tablet PO (08:03)
[2021-01-14] MEDS: potassium chloride ER 20 mEq Tablet PO ×2 (08:03→17:12)
[2021-01-14] MEDS: folic acid 1 mg Tablet PO (10:16)
[2021-01-14] MEDS: spironolactone 25 mg Tablet PO (10:16)
[2021-01-14] MEDS: pantoprazole DR 40 mg Tablet PO (10:16)
[2021-01-14] MEDS: FUROsemide 40 mg Tablet 60 MG PO (10:18)
[2021-01-14 11:18] VITALS: BP 114/72; PULSE 91; RESP 15; TEMP 37; O2SAT 95
[2021-01-14 16:00] VITALS: BP 118/72; PULSE 86; RESP 17; TEMP 37.1; O2SAT 98
--- NOTE | 2021-01-14 17:18 | PM.DCS ---
Discharge Providers Date of Admission: 01/12/21 22:25 Date of Discharge: January 14, 2021 Attending Provider at Admission: Abdiel Cardona MD Attending Provider at Discharge: Marlene Watson MD Primary Care Provider: Yosvany Segovia MD Diagnoses at Discharge Discharge Diagnosis (1) Chronic hyponatremia: Status: Acute (2) Ascites due to alcoholic cirrhosis: Status: Acute (3) ETOH abuse: Status: Acute (4) End-stage liver disease: Status: Acute (5) CHF (congestive heart failure), NYHA class III: Status: Acute Qualifiers: Congestive heart failure type: systolic Congestive heart failure chronicity: unspecified Qualified Code(s): I50.20 - Unspecified systolic (congestive) heart failure (6) Acute renal failure: Status: Acute Qualifiers: Acute renal failure type: with acute tubular necrosis Qualified Code(s): N17.0 - Acute kidney failure with tubular necrosis Reason for Visit Reason for Visit: PCP RECOMEND COME FOR LOW SODIUM AND SOB Hospital Course Hospital Course Mr. Soto is a 55-year-old male with a history of alcoholic liver disease who presented to the hospital on January 12, 2021 after undergoing routine labs with his primary care provider and being found to have hyponatremia with a sodium level of 114. He has complained of longstanding fatigue and generalized weakness which has been progressively getting worse. He recently relapsed into drinking alcohol again. Patient also come started complaining of feeling bloated and being short of breath, during course of admission has remained on room air no noted tachypnea or dyspnea. Diagnostics in the ER revealed normal CBC, INR 1.2, sodium 114, low chloride 79, creatinine 1.3, bilirubin 3.5, alcohol level less than 10. Patient is previously known to have chronic hyponatremia with Na ranging between 114-120 in the past. Diuresis was continued, he was placed on fluid restriction, Na improved to 118 which has been close to recent baseline. Patient did not have any neurological complaints. Being discharged today at baseline state of health. He reports needing assistance to manage his ADLs and help with medications, home health services referral has been generated at discharge. 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 Discharge Data Data Completed and Pending: Labs from last 24 hours 01/14/21 05:21 Sodium 118 L* Potassium 4.5 Chloride 83 L Carbon Dioxide 25 Anion Gap 14.5 BUN 14 Creatinine 1.4 H GFR Calculation 52.4 L Glucose 92 Calculated Osmolal ity 246 L Calcium 7.6 L Total Bilirubin 1.8 H AST 22 ALT 12 Alkaline Phosphata se 175 H Total Protein 5.5 L Albumin 2.8 L Globulin 2.7 Vitals: Last Vital Signs Temp 98.7 F 01/14/21 16:00 Pulse 86 01/14/21 16:00 Resp 17 01/14/21 16:00 BP 118/72 01/14/21 16:00 Pulse Ox 98 01/14/21 16:00 Discharge Plan Discharge Patient Disposition: Home Health Service Condition: Stable Prescriptions: Continued sildenafil 100 mg tablet 100 mg PO DAILY PRN (Reason: OTHER) RF: 0 ferrous sulfate 325 mg (65 mg iron) tablet 325 mg PO DAILY@16 RF: 0 pantoprazole 40 mg tablet,delayed release (DR/EC) 40 mg PO DAILY@10 RF: 0 vitamin B complex [B Complex-Vitamin B12] Tablet 1 tab PO DAILY@16 RF: 0 (DME) Cam Walker See Rx Instructions .Route .MEDSUPPLY Qty: 1 RF: 0 Spiriva Respimat 2.5 mcg/actuation mist 2 puff inhalation DAILY Qty: 4 RF: 3 (DME) [place] Boot to the left and an even-up applied to the right foot See Rx Instructions .Route .MEDSUPPLY Qty: 1 RF: 0 tadalafil 20 mg tablet 20 mg PO DAILY PRN (Reason: sexual activity) Qty: 20 RF: 12 (DME) Mi[place]maq boot See Rx Instructions .Route .MEDSUPPLY Qty: 1 RF: 0 tramadol 50 mg Tablet 50 mg PO BID PRN (Reason: Pain) RF: 0 Ocuvite Adult 50 Plus 250-5-1 mg Capsule 2 cap PO DAILY@10 RF: 0 folic acid 1 mg tablet 1 mg PO DAILY@10 RF: 0 furosemide [Lasix] 40 mg tablet 60 mg PO DAILY@10 RF: 0 Hold Instructions: Resume on 12/18/20. spironolactone 25 mg Tablet 25 mg PO DAILY@10 RF: 0 fluticasone propionate 50 mcg/actuation spray,suspension See Rx Instructions .ROUTE .COMPLEX RF: 0 diltiazem HCl 120 mg tablet 120 mg PO Q8H RF: 0 albuterol sulfate 90 mcg/actuation HFA aerosol inhaler 2 inh INHALATION Q4H PRN (Reason: shortness of breath/wheezing) RF: 0 Vitamin B-1 1 tab PO DAILY@1000 RF: 0 lactulose 10 gram/15 mL Solution 10 g PO DAILY RF: 0 potassium chloride 20 mEq Tablet Extended Release 20 meq PO BID RF: 0 Discharge Orders: Discharge Order (Routine); Ordered 01/14/21 Ordered By: Marlene Watson Referrals: Yosvany Segovia MD [Primary Care Provider] - 1 week Discharge Diet: Usual diet Discharge Activity: Resume usual activity Patient Instructions: Opioid Safety Discharge Attestations Time Spent in Discharge Care*: other Status at Discharge: Cognitive status at discharge: cognitively intact, Behavioral status at discharge: cooperative, Quality Metrics Clinical Quality Measures During this hospital stay, did patient experience: None Coding Level of Care Code Acute Chg [facility] note Diagnoses Chronic hyponatremia E87.1 Ascites due to alcoholic cirrhosis K70.31 ETOH abuse F10.10 End-stage liver disease K72.90 CHF (congestive heart failure), NYHA class III I50.20 Congestive heart failure type: systolic Congestive heart failure chronicity: unspecified Acute renal failure N17.0 Acute renal failure type: with acute tubular necrosis
--- NOTE | 2021-01-14 19:15 | PC.NURSE ---
183 Discharge reviewed with patient at this time. Patient verbalized understanding of discharge instructions. Patient states that his ride will be here in 30 minutes. IV removed intact. Patient tolerated well. 1914- Patient assisted into wheel chair and taken to private car at this time. Patient is A&Ox3. Respirations even and non-labored on room air. No obvious distress noted.
[2021-01-14 19:50] VITALS: BP 118/72; PULSE 86; RESP 17; TEMP 37.1; O2SAT 98
== END 2021-01-14 19:15 | disposition home health service (06) ==
LOC: ER 16:48 → MEDSURG 20:21
PROVIDERS: Family Medicine; Admitting Provider Internal Medicine; Emergency Provider Emergency Medicine; PCP Family Medicine; Visit Provider Student in an Organized Health Care Education/Training Program
DX: E87.1 Hypo-osmolality and hyponatremia (principal); K70.31 Alcoholic cirrhosis of liver with ascites; F10.10 Alcohol abuse, uncomplicated; K72.90 Hepatic failure, unspecified without coma; I50.20 Unspecified systolic (congestive) heart failure; N17.0 Acute kidney failure with tubular necrosis; Z87.891 Personal history of nicotine dependence
CPT/HCPCS: 36415; 80048; 80053; 80307; 82140; 82550; 84295; 85025; 85610; 85730; 94640; 96365; 96372; 96375; 99285; G0378; J0696; J1650; J1940; J2405; J3411

== ENCOUNTER 2021-01-15 11:29 | Outpatient (CLI) | payer OTHER, SELFPAY ==
--- NOTE | 2021-01-15 12:47 | PFTS_ITS ---
Date of Study:01/15/21 Date of Dictation: MECHANICS: Forced vital capacity (FVC) is reduced. Forced expiratory volume in one second (FEV1) is reduced. FEV1/FVC is normal. FLOW VOLUME LOOP: Narrow. LUNG VOLUMES: Total lung capacity (TLC) is reduced. Residual volume (RV) is reduced. DIFFUSING CAPACITY FOR CARBON MONOXIDE: Moderately reduced. INTERPRETATION: The pulmonary function tests are consistent with moderately severe restrictive ventilatory defect. There is no significant postbronchodilator response. Lung volumes are consistent with restrictive lung disease. Gas exchange (DLCO) is moderately reduced. MTDD
== END 2021-01-15 11:30 | disposition home or self-care (01) ==
LOC: RT 11:30
PROVIDERS: PCP Family Medicine; Visit Provider Internal Medicine Pulmonary Disease
DX: R06.00 Dyspnea, unspecified (principal)
CPT/HCPCS: 94060; 94726; 94729; J7611

== ENCOUNTER 2021-02-11 11:59 | Inpatient (IN) | payer OTHER, SELFPAY ==
[2021-02-11] VITALS (19 sets, daily range): BP systolic 104–147; BP diastolic 57–96; PULSE 55–83; RESP 13–32; TEMP 36.4–37.1; O2SAT 95–100; BMI 33.9
--- NOTE | 2021-02-11 12:09 | CTR_ITS ---
PROCEDURE INFORMATION: Exam: CT Head Without Contrast Exam date and time: 02/11/2021 1:04 PM Age: 55 years old Clinical indication: Syncope and collapse; Patient HX: AMS TECHNIQUE: Imaging protocol: Computed tomography of the head without contrast. Radiation optimization: All CT scans at this facility use at least one of these dose optimization techniques: automated exposure control; mA and/or kV adjustment per patient size (includes targeted exams where dose is matched to clinical indication); or iterative reconstruction. COMPARISON: CT head wo con* [id number] 05/30/2020 3:16 PM RADIATION DOSE METRICS: Total DLP (mGy-cm): 947.46 FINDINGS: Brain: There is moderate cortical atrophy. Low-density changes in the white matter are consistent with nonspecific small vessel chronic ischemic change. There is no intracranial mass, hemorrhage or edema. Cerebral ventricles: No ventriculomegaly. Paranasal sinuses: Visualized sinuses are unremarkable. No fluid levels. Mastoid air cells: Visualized mastoid air cells are well aerated. Bones/joints: Unremarkable. No acute fracture. Soft tissues: Unremarkable. CT/CT head wo con* [id number] IMPRESSION: No acute intracranial finding. No significant change from 05/30/2020. Radiation Dose CTDIVOL = (mGy): DLP = 947.46 (mGy-cm)
--- NOTE | 2021-02-11 12:09 | XRR_ITS ---
PROCEDURE INFORMATION: Exam: XR Chest Exam date and time: 02/11/2021 12:10 PM Age: 55 years old Clinical indication: Other: AMS TECHNIQUE: Imaging protocol: XR of the chest. Views: 1 view. COMPARISON: CR XR chest 2V* [id number] 12/28/2020 11:12 AM FINDINGS: Lungs: Retrocardiac density may represent some left lower lobe atelectasis or infiltrate. This is less than on 12/12/2020. Visualized portions of the right lung are clear. There are few small calcified granulomas in the right lung. Pleural spaces: There is a cyst in the left lung base and blunting of left costophrenic angle consistent with small residual left pleural effusion. Heart/Mediastinum: Unremarkable. No cardiomegaly. Bones/joints: Unremarkable. XR/XR chest 1V portable [id number] IMPRESSION: 1. Small left pleural effusion. 2. Small left lower lobe atelectasis or infiltrate. 3. Findings are improved compared with 12/28/2020.
--- NOTE | 2021-02-11 12:10 | ECG_ITS ---
[facility] Test Date: 2021-02-11 Pat Name: Yosvany Soto Department: Room: Gender: Male Fur Dyer: : 1965 Requested By: Sandeep Plasencia Order Number: [id number] Mohamud MD: Compa Escamilla M.D. Measurements Intervals [place] Rate: 67 P: FL: QRS: 55 QRSD: 90 T: 59 QT: 375 QTc: 397 Interpretive Statements ATRIAL FIBRILLATION LOW QRS VOLTAGE [QRS DEFLECTION < 0.5/1.0 mV IN LIMB/CHEST LEADS] SEPTAL MYOCARDIAL INFARCTION , PROBABLY OLD [40+ ms Q WAVE IN V1/V2] Compared to ECG 12/11/2020 08:05:22 No significant changes Electronically Signed On 02-11-2021 15:59:31 CDT by Compa Escamilla M.D. [id number]
[2021-02-11 12:33] LABS: Basophils % 0.2 %; Eosinophils % 0.3 %; Hematocrit 32.6 % (42.0-52.0); Hemoglobin 11.8 g/dL (11.7-16.6); Lymphocytes # 0.7 10^3/uL (0.8-4.8); Lymphocytes % 4.9 %; Mean Corpuscular HGB Conc 36.2 g/dL (30.0-36.0); Mean Corpuscular Hemoglobin 33.8 pg (28.0-34.0); Mean Corpuscular Volume 93.4 fL (80-94); Mean Platelet Volume 9.5 fL (7.4-10.4); Monocytes % 6.9 %; Neutrophils # 12.65 10^3/uL (1.8-7.7); Neutrophils % 86.3 %; Nucleated Red Blood Cells % 0.1 %; Platelet Count 291 10^3/cmm (130-400); Red Blood Count 3.49 10^6/uL (4.1-5.3); Red Cell Distribution Width 14.5 % (12.1-15.1); White Blood Count 14.7 10^3/uL (4.0-10.0)
[2021-02-11 12:43] LABS: INR 1.21 (0.8-1.2)
[2021-02-11 12:44] LABS: Partial Thromboplastin Time 34.9 SECONDS (23.9-36.7)
[2021-02-11 12:54] LABS: Alanine Aminotransferase 12 U/L (0-41); Albumin Level 3.1 g/dL (3.5-5.2); Alkaline Phosphatase 158 IU/L (40-130); Aspartate Amino Transferase 26 U/L (0-40); Blood Urea Nitrogen 24 mg/dL (6-20); Calcium 8.6 mg/dL (8.5-10.5); Carbon Dioxide 21 mmol/L (22-29); Chloride 72 mmol/L (98-107); Glomerular Filtration Rate 29.6 mL/min (90-130); Glucose 91 mg/dL (65-115); Osmolality Calculated 228 mOsm/kg (285-295); Total Bilirubin 1.9 mg/dL (0.15-1.2); Total Protein 6.1 g/dL (6.6-8.7)
--- NOTE | 2021-02-11 13:04 | ED_ITS ---
HPI - Altered Mental Status General: Chief Complaint: Altered Mental Status Stated Complaint: AMS Time Seen by Provider: 02/11/21 12:00 Source: patient and EMS Mode of arrival: EMS Limitations: no limitations History of Present Illness: HPI narrative: Patient with confusion and altered mental status since this morning. States that yesterday he was feeling fine. Does have a history of cirrhosis and recurrent hyponatremia as well as hepatic encephalopathy. Review of Systems Const: Denies: fever(s) Eyes: Denies: change in vision ENMT: Denies: throat pain Card: Denies: chest pain Resp: Denies: dyspnea GI: Denies: abdominal pain : Denies: flank pain Musc: Denies: neck pain Neuro: Reports: lack of coordination, dizziness and confusion; Denies: headache(s) PFSH ED PFSH: Medical History Acute dyspnea Acute hypokalemia Acute hyponatremia Ascites Ascites due to alcoholic cirrhosis Atrial fibrillation and flutter Atrial fibrillation with RVR Charcot's arthropathy Chest pain Pleuritic chest pain: Resolved; Chronic hyponatremia End-stage liver disease Erectile dysfunction ETOH abuse Fracture of fourth metatarsal bone of left foot History of abdominal paracentesis Hx of esophageal varices Hyperkalemia Hyponatremia Hyponatremia with excess extracellular fluid volume Laceration of left foot Neuropathy Peyronie disease Pleural effusion S/P Left thoracentesis wit removal of 1L,Transduative fluid Pleural effusion associated with hepatic disorder Pneumonia PVD (peripheral vascular disease) Surgical History H/O colonoscopy 10-12 yrs H/O esophagogastroduodenoscopy History of tonsillectomy Hx of umbilical hernia repair Hx of vasectomy Status post surgery (07/05/20) peritoneal catheter for ascites Family History Grandfather CAD (coronary artery disease) Grandmother CAD (coronary artery disease) Cancer Father Cancer Denies family history of Anesthesia complication Bleeding disorder Social History Smoking and tobacco status: former smoker Quit status (tobacco): has quit using tobacco Year quit tobacco: 2014 less than a [id number] Second hand smoke exposure: No Smoking risk assessment/counseling performed?: Yes Alcohol intake: current Alcohol intake frequency: 3 or more drinks per day Alcohol type: beer Adopted: No Caregiver/support person: Yes Lives independently: Yes Household members: children Marital status: Current occupational status: unemployed Pets and animals: Yes History of recent travel: No Current gender identity: Male Physical Exam Const: COMMON NORMALS: patient oriented x3 HENMT: COMMON NORMALS: normocephalic, atraumatic, hearing grossly normal bilaterally, external ears normal, EAC's normal, TM's normal bilaterally, Normal external nose present, Normal nasal mucous membranes and turbinates present, moist oral mucous membranes, oropharynx normal, dentition normal and gingiva normal HEAD & SCALP: normocephalic and atraumatic NOSE: Normal external nose present and Normal nasal mucous membranes and turbinates present EXTERNAL EAR: Yes external ears normal EXTERNAL AUDITORY CANAL: EAC's normal TYMPANIC MEMBRANE: TM's normal bilaterally Eye: COMMON NORMALS: Equal, round and reactive pupils present, EOMs intact bilaterally, conjunctivae normal, no scleral icterus, no papilledema, normal visual negrete by confrontation and fundi normal bilaterally CONJUNCTIVA: Yes conjunctivae normal PUPIL: Yes Equal, round and reactive pupils present DIRECT OPHTHALMOSCOPY: Yes no papilledema and Yes fundi normal bilaterally Neck/C-Spine: COMMON NORMALS: full ROM, no lymphadenopathy, supple, no meningeal signs, Thyroid normal and No carotid bruits THYROID: Thyroid normal Resp: COMMON NORMALS: normal respiratory effort, No retractions, No use of accessory muscles, clear to auscultation bilaterally and percussion normal AUSCULTATION: clear to auscultation bilaterally PERCUSSION: percussion normal Neuro: ALESIA COMA SCALE: other (Patient is oriented just confused and takes longer to answer questions then would be normal.) COMMON NORMALS: patient oriented x3, CN's II-XII intact bilaterally, moves all extremities, no focal motor deficits and no sensory deficits noted MENINGEAL SIGNS: Yes no meningeal signs Course Vital Signs: Vital signs: Vital Signs Pulse Rate 76 02/11/21 12:23 Respiratory Rate 18 02/11/21 12:07 Blood Pressure 120/77 02/11/21 12:23 Pulse Oximetry 99 02/11/21 12:23 MDM - Altered Mental Status MDM Narrative: Medical decision making narrative: Patient does have severe hyponatremia. Discussed with Dr. Koroma. Will admit patient to the ICU for further evaluation and treatment. Lab Data: Labs: Lab Results 02/11/21 02/11/21 02/11/21 Range/Units 11:30 11:30 11:30 WBC 14.7 H (4.0-10.0) 10^3/ uL RBC 3.49 L (4.1-5.3) 10^6/u L Hgb 11.8 (11.7-16.6) g/dL Hct 32.6 L (42.0-52.0) % MCV 93.4 (80-94) fL MCH 33.8 (28.0-34.0) pg MCHC 36.2 H (30.0-36.0) g/dL RDW 14.5 (12.1-15.1) % Plt Count 291 (130-400) 10^3/c mm MPV 9.5 (7.4-10.4) fL Neut % (Auto) 86.3 % Lymph % (Auto) 4.9 % [place] % (Auto) 6.9 % Eos % (Auto) 0.3 % Baso % (Auto) 0.2 % Neut # (Auto) 12.65 H (1.8-7.7) 10^3/u L Lymph # (Auto) 0.7 L (0.8-4.8) 10^3/u L [place] # (Auto) 1.0 H (0.2-0.9) 10^3/u L Eos # (Auto) 0.0 (0.0-0.8) 10^3/u L Baso # (Auto) 0.0 (0.0-0.1) 10^3/u L Nucleated RBC % (a uto) 0.1 % Nucleated RBCs # 0.0 /100WBC PT 15.60 H (12.1-14.9) SECO NDS INR 1.21 H (0.8-1.2) APTT 34.9 (23.9-36.7) SECO NDS Sodium 107 L* (136-145) mmol/L Potassium 5.7 H (3.5-5.1) mmol/L Chloride 72 L (98-107) mmol/L Carbon Dioxide 21 L (22-29) mmol/L Anion Gap 19.7 H (5-19) BUN 24 H (6-20) mg/dL Creatinine 2.3 H (0.7-1.2) mg/dL GFR Calculation 29.6 L (90-130) mL/min Glucose 91 (65-115) mg/dL Calculated Osmolal ity 228 L (285-295) mOsm/k g Calcium 8.6 (8.5-10.5) mg/dL Total Bilirubin 1.9 H (0.15-1.2) mg/dL AST 26 (0-40) U/L ALT 12 (0-41) U/L Alkaline Phosphata se 158 H (40-130) IU/L Total Protein 6.1 L (6.6-8.7) g/dL Albumin 3.1 L (3.5-5.2) g/dL Globulin 3.0 (1.3-4.6) g/dL Ethyl Alcohol < 10 (0-10) mg/dL Discharge Plan Discharge Patient Disposition: Admitted As Inpatient Clinical Impression: Acute hyponatremia Condition: Stable Coding Level of Care Code ED [employer] Supervisor for Tay Fwd Exam Detailed
[2021-02-11 13:28] LABS: Alcohol Level < 10 mg/dL (0-10); Anion Gap 19.7 (5-19); Potassium 5.7 mmol/L (3.5-5.1)
[2021-02-11 13:30] LABS: Sodium 107 mmol/L (136-145)
--- NOTE | 2021-02-11 13:53 | PC.PHAR ---
PT STATES HE TAKES CARE OF HIS OWN MEDICATIONS-PT BROUGHT IN MED BOTTLES-PT BROUGHT IN MED BOTTLE SPIRONOLACTONE DATED 09/12/2020 FOR 100MG DAILY-EXT MED HISTORY SHOWS 25MG DAILY LAST FILLED ON 12/11/20 30D/S-PT STATES HE IS UNSURE WHAT HE HAS BEEN TAKING-[facility]TER IS CLOSED TO VERIFY WHAT WAS LAST FILLED-COMMENTS ARE MADE IN THE PHARMACY COMMENTS ON SOME RXS-Pt BROUGHT IN DILTIAZEM 120MG AND states he takes [id number] pt brought in dated 01/22/21 for 120mg po q6h-pt states his insurance wont pay for q6h so he takes q8h
--- NOTE | 2021-02-11 14:13 | PM.CONSULT ---
Providers/Reason For Consult Consulting Physician/Specialty*: rodolfo ayala md / telenephrology Reason for Consult*: acute on chronic renal failure and acote on chronic hyponatremia, and hyperkalemia Primary Care Provider: Yosvany Segovia MD History of Present Illness History of Present Illness Yosvany Soto is a 55 year old male with a PMH of end-stage liver disease, with peritoneal catheter for ascites, history of esophageal varices, continued alcohol use, history of atrial fibrillation not on anticoagulation due to risk of bleeding, chronic hyponatremia secondary to liver disease, EF 40-45%, and noncompliance with Lasix therapy. He has had multiple admissions for volume overload and hyponatremia. Most recenly one month ago w/ na of 114- improved w/ diuretics and fluid restriction. Pt is being admitted again w/ AMS and confusion. Pt has not eaten well and nausea. also dec uop. Pt is confused and mom brought him to ER. he is comfortable, ascites and satuarating well. Review of Systems General: Reports: 10 or more systems reviewed and unremarkable except in HPI and below and ROS unobtainable due to mental status Narrative: confusion, weak, nausea, palps, abd less distended then usual Meds/Allergies Home Medications and Allergies Home Medications Medication Instructions Recorded Confirmed Last Taken Type pantoprazole 40 mg tablet,delayed 40 mg PO DAILY@01/04/20 02/11/21 02/11/21 07:00 History release sildenafil 100 mg tablet 100 mg PO PRN 01/04/20 02/11/21 Unknown History vitamin B complex 1 tab PO DAILY@16 01/04/20 02/11/21 02/10/21 History tadalafil 20 mg tablet 20 mg PO DAILY PRN #20 tab 01/10/20 02/11/21 Unknown Rx tramadol 100 mg PO DAILY PRN 05/05/20 02/11/21 02/11/21 07:00 History Ocuvite Adult 50 Plus 1 cap PO PRN 08/04/20 02/11/21 01/12/21 History folic acid 1 mg PO DAILY@10 08/23/20 02/11/21 02/11/21 History furosemide [Lasix] 60 mg PO DAILY@10 08/23/20 02/11/21 02/11/21 07:00 History [place] boot #1 ea 09/01/20 02/11/21 Unknown Rx fluticasone propionate 1 - 2 spray INTRANASAL DAILY 09/08/20 02/11/21 02/10/21 History [place] #1 ea NS 10/02/20 02/11/21 Unknown Rx albuterol sulfate 2 inh INHALATION Q4H PRN 12/11/20 02/11/21 Unknown History diltiazem HCl 120 mg PO Q8H 12/11/20 02/11/21 02/11/21 07:00 History tiotropium bromide 2.5 2 puff INHALATION DAILY #4 g 12/28/20 02/11/21 Unknown Rx mcg/actuation mist for inhalation [place] Boot to the left and an #1 ea 01/04/21 02/11/21 Unknown Rx even-up applied to the right foot potassium chloride 20 meq PO BID 01/12/21 02/11/21 02/10/21 History ferrous sulfate 27 mg PO DAILY 02/11/21 02/11/21 02/10/21 History meloxicam See Rx Instructions .ROUTE .COMPLEX 02/11/21 02/11/21 Unknown History spironolactone 100 mg PO DAILY 02/11/21 02/11/21 Unknown History thiamine HCl (vitamin B1) [Vitamin 250 mg PO DAILY 02/11/21 02/11/21 02/11/21 History B-1] vitamins A,C,X-ljnf-xiallt 1 cap PO DAILY 02/11/21 02/11/21 Unknown History [PreserVision AREDS] Allergies Allergy/AdvReac Type Severity Reaction Status Date / Time Penicillins Allergy ALGY-Difficulty Verified 02/11/21 13:38 Breathing Sulfa (Sulfonamide Allergy Unknown Verified 02/11/21 13:38 Antibiotics) PFSH Acute PFSH: Medical History Acute dyspnea Acute hypokalemia Acute hyponatremia Ascites Ascites due to alcoholic cirrhosis Atrial fibrillation and flutter Atrial fibrillation with RVR Charcot's arthropathy Chest pain Pleuritic chest pain: Resolved; Chronic hyponatremia End-stage liver disease Erectile dysfunction ETOH abuse Fracture of fourth metatarsal bone of left foot History of abdominal paracentesis Hx of esophageal varices Hyperkalemia Hyponatremia Hyponatremia with excess extracellular fluid volume Laceration of left foot Neuropathy Peyronie disease Pleural effusion S/P Left thoracentesis wit removal of 1L,Transduative fluid Pleural effusion associated with hepatic disorder Pneumonia PVD (peripheral vascular disease) Surgical History H/O colonoscopy 10-12 yrs H/O esophagogastroduodenoscopy History of tonsillectomy Hx of umbilical hernia repair Hx of vasectomy Status post surgery (07/05/20) peritoneal catheter for ascites Family History Grandfather CAD (coronary artery disease) Grandmother CAD (coronary artery disease) Cancer Father Cancer Denies family history of Anesthesia complication Bleeding disorder Social History Smoking and tobacco status: former smoker Quit status (tobacco): has quit using tobacco Year quit tobacco: 2014 less than a [id number] Second hand smoke exposure: No Smoking risk assessment/counseling performed?: Yes Alcohol intake: current Alcohol intake frequency: 3 or more drinks per day Alcohol type: beer Adopted: No Caregiver/support person: Yes Lives independently: Yes Household members: children Marital status: Current occupational status: unemployed Pets and animals: Yes History of recent travel: No Current gender identity: Male Vitals/I&O/Wt Last Vital Signs Pulse 76 02/11/21 12:23 Resp 18 02/11/21 12:07 BP 120/77 02/11/21 12:23 Pulse Ox 99 02/11/21 12:23 Weight last 48 hrs Weight 113.398 kg Physical Exam Narrative: EXAM NARRATIVE: swollen, comfortable in bed, NARD VS noted heent- nc/at, eomi, anicteric neck supple lung clar b/l heart irreg irreg abd soft, distended, +BC, NT, + rt sided Tenkoff catheter ext b/l edema, red neuro- a,a, o x 1-2 A&P Additional A&P Information 55 yr old man 1. ALcoholic cirrhosis 2. acute on chronic hyponatremia- check tsh, cortisol, urine lytes -likely from diuretics and SAMI chronic hyponatremia from liver disease- low ur na in 2019 as AMS and hyponatrmeia- give 3% saline 100 ml, then ns ivf -monitor chem -7 every 4 hrs- call me w/ results 3. SAMI- likely HRS vs prerneal vs ATN- hold diuretics -give ivf - agree w/ albumin, octreotide, mididrine, and norepinephrine if needed -renal us -consider renal us -check urine studies 4. hyperkalemia- on aldactone and k at home and SAMI -rx medically -monitor k every 4 hrs 5. chronic a f ib 6, chronic systolic CHF- EF 40-45% 7. leukocytosis- estrada- culture- eval for infection 8. needs to stop etoh use discussed w/ pt, family, and hospitalist seen w/ RN- telehealth visit Consult Attestations Medical Necessity Statement: SAMI, hyponatremia, AMS, hyperkalemia, infection eval Time Spent in Patient Care: Greater than 35 minutes (>than 50% of time spent in counselling and/or direct pt care on unit). 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
--- NOTE | 2021-02-11 15:09 | PM.HP ---
Providers/Chief Complaint Primary Care Provider: Yosvany Segovia MD Chief Complaint: AMS History of Present Illness Yosvany Soto is a 55 year old male past medical history of end-stage liver disease, with peritoneal catheter for ascites, history of esophageal varices, continued alcohol use, history of atrial fibrillation not on anticoagulation due to risk of bleeding, chronic hyponatremia secondary to liver disease, alcoholism and noncompliance with Lasix therapy, who presents to ER with the chief complaint of Worsening confusion for the last 2 days according to him, been compliant with his medications, last time he drained through his peritoneal catheter was yesterday, and he was planning to drain the ascitic fluid today also, but unfortunately was unable to do that, because of the worsening confusion, he decided to come to the hospital.On arrival in the ER he was worked up for above-mentioned complaint. Imaging studies: CT head without contrast: No acute intracranial Chest x-ray: Small left pleural effusion, small left lower lobe infiltrates EKG: Atrial fibrillation, with rate of 67. Pertinent labs: WBC count 14,000, H&H:11/32, platelet count:291 , PT/INR: 15/1.21 Serum sodium:107, serum potassium:5.7 , BUN: 26, serum creatinine: 2.6, fingerstick glucose: 88, Total bilirubin: 1.9, AST normal ALT normal, alk phos 158, TSH: 4.30, random cortisol:23, U tox negative, urinalysis: Clean, Review of Systems Const: Denies: fever(s) or chills Card: Denies: palpitations Resp: Denies: productive cough, wheezing or pain on inspiration GI: Denies: abdominal pain, nausea or vomiting Neuro: Denies: headache(s) Medications/Allergies Home Medications Medication Instructions Recorded Confirmed Last Taken Type pantoprazole 40 mg tablet,delayed 40 mg PO DAILY@10 01/04/20 02/11/21 02/11/21 07:00 History release sildenafil 100 mg tablet 100 mg PO PRN 01/04/20 02/11/21 Unknown History vitamin B complex 1 tab PO DAILY@16 01/04/20 02/11/21 02/10/21 History tadalafil 20 mg tablet 20 mg PO DAILY PRN #20 tab 01/10/20 02/11/21 Unknown Rx tramadol 100 mg PO DAILY PRN 05/05/20 02/11/21 02/11/21 07:00 History Ocuvite Adult 50 Plus 1 cap PO PRN 08/04/20 02/11/21 01/12/21 History folic acid 1 mg PO DAILY@10 08/23/20 02/11/21 02/11/21 History furosemide [Lasix] 60 mg PO DAILY@10 08/23/20 02/11/21 02/11/21 07:00 History [place] boot #1 ea 09/01/20 02/11/21 Unknown Rx fluticasone propionate 1 - 2 spray INTRANASAL DAILY 09/08/20 02/11/21 02/10/21 History [place] #1 ea NS 10/02/20 02/11/21 Unknown Rx albuterol sulfate 2 inh INHALATION Q4H PRN 12/11/20 02/11/21 Unknown History diltiazem HCl 120 mg PO Q8H 12/11/20 02/11/21 02/11/21 07:00 History tiotropium bromide 2.5 2 puff INHALATION DAILY #4 g 12/28/20 02/11/21 Unknown Rx mcg/actuation mist for inhalation [place] Boot to the left and an #1 ea 01/04/21 02/11/21 Unknown Rx even-up applied to the right foot potassium chloride 20 meq PO BID 01/12/21 02/11/21 02/10/21 History ferrous sulfate 27 mg PO DAILY 02/11/21 02/11/21 02/10/21 History meloxicam See Rx Instructions .ROUTE .COMPLEX 02/11/21 02/11/21 Unknown History spironolactone 100 mg PO DAILY 02/11/21 02/11/21 Unknown History thiamine HCl (vitamin B1) [Vitamin 250 mg PO DAILY 02/11/21 02/11/21 02/11/21 History B-1] vitamins A,C,T-hnuq-xjfvvu 1 cap PO DAILY 02/11/21 02/11/21 Unknown History [PreserVision AREDS] Allergies Allergy/AdvReac Type Severity Reaction Status Date / Time Penicillins Allergy ALGY-Difficulty Verified 02/11/21 13:38 Breathing Sulfa (Sulfonamide Allergy Unknown Verified 02/11/21 13:38 Antibiotics) PFSH Acute PFSH: Medical History Acute dyspnea Acute hypokalemia Acute hyponatremia Ascites Ascites due to alcoholic cirrhosis Atrial fibrillation and flutter Atrial fibrillation with RVR Charcot's arthropathy Chest pain Pleuritic chest pain: Resolved; Chronic hyponatremia End-stage liver disease Erectile dysfunction ETOH abuse Fracture of fourth metatarsal bone of left foot History of abdominal paracentesis Hx of esophageal varices Hyperkalemia Hyponatremia Hyponatremia with excess extracellular fluid volume Laceration of left foot Neuropathy Peyronie disease Pleural effusion S/P Left thoracentesis wit removal of 1L,Transduative fluid Pleural effusion associated with hepatic disorder Pneumonia PVD (peripheral vascular disease) Surgical History H/O colonoscopy 10-12 yrs H/O esophagogastroduodenoscopy History of tonsillectomy Hx of umbilical hernia repair Hx of vasectomy Status post surgery (07/05/20) peritoneal catheter for ascites Family History Grandfather CAD (coronary artery disease) Grandmother CAD (coronary artery disease) Cancer Father Cancer Denies family history of Anesthesia complication Bleeding disorder Social History Smoking and tobacco status: former smoker Quit status (tobacco): has quit using tobacco Year quit tobacco: 2014 less than a [id number] Second hand smoke exposure: No Smoking risk assessment/counseling performed?: Yes Alcohol intake: current Alcohol intake frequency: 3 or more drinks per day Alcohol type: beer Adopted: No Caregiver/support person: Yes Lives independently: Yes Household members: children Marital status: Current occupational status: unemployed Pets and animals: Yes History of recent travel: No Current gender identity: Male Vitals/I&O/Wt Last Vital Signs Pulse 76 02/11/21 12:23 Resp 18 02/11/21 12:07 BP 120/77 02/11/21 12:23 Pulse Ox 99 02/11/21 12:23 Weight last 48 hrs Weight 113.398 kg Physical Exam Const: COMMON NORMALS: patient oriented x3 HENMT: COMMON NORMALS: normocephalic and external ears normal HEAD & SCALP: normocephalic and atraumatic Chest: CHEST: Yes Symmetrical chest wall rise Resp: COMMON NORMALS: normal respiratory effort and clear to auscultation bilaterally EFFORT & INSPECTION: Yes symmetric chest movement AUSCULTATION: clear to auscultation bilaterally Cardio: COMMON NORMALS: regular rate, regular rhythm, S1 normal heart sound present, S2 normal heart sound present, No gallops present (Cardio), No murmurs present (Cardio), No rub (Cardio) and Peripheral pulses 2+ throughout RATE: regular rate RHYTHM: regular rhythm HEART SOUNDS: S1 normal heart sound present and S2 normal heart sound present PERIPHERAL PULSES: Peripheral pulses 2+ throughout GI: COMMON NORMALS: Normal to inspection, nondistended, normoactive bowel sounds present, Soft to palpation, non-tender, No hepatosplenomegaly present and no masses AUSCULTATION: Yes normoactive bowel sounds PALPATION: Yes Soft to palpation and Yes No hepatosplenomegaly present RECTAL EXAM: Yes deferred Extremity: NARRATIVE EXTREMITY EXAM: 1+ bilateral pitting edema in both lower extremities Neuro: COMMON NORMALS: patient oriented x3 Data : 02/11/21 11:30 02/11/21 20:21 A&P Assessment and plan (1) Hyponatremia: Acute on chronic symptomatic hyponatremia. Multifactorial Patient admitted with serum sodium of 107: He was given 3% hypertonic saline 100 mL, and then started on IV fluids, BMP every 4 hours. on board, thanks for his input and expertise.Much appreciated Status: Acute (2) Acute metabolic encephalopathy: Acute metabolic encephalopathy. CT head without contrast: Normal Continue to monitor mentation for now Status: Acute (3) Acute renal failure: SAMI likely HRS V/S prerenal: Current plan is to hold diuretics: Which includes Lasix and spironolactone. Started on albumin and octreotide protocol. Blood pressure is stable: Chances of using midodrine or Levophed is less likely Renal on board Status: Acute Qualifiers: Acute renal failure type: with acute tubular necrosis Qualified Code(s): N17.0 - Acute kidney failure with tubular necrosis (4) Atrial fibrillation and flutter: Currently rate controlled, Continue diltiazem: 120 mg p.o. every 8 hours Telemetry Not on anticoagulation, because of prior history of GI bleed Status: Acute (5) Ascites due to alcoholic cirrhosis: Status: Acute (6) CHF (congestive heart failure), NYHA class III: Heart failure with preservation fraction: Currently compensated. 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
[2021-02-11 15:48] LABS: Ammonia 24 umol/L (16-60)
[2021-02-11 15:58] LABS: Lactic Sepsis W/Reflex 1.7 mmol/L (0.5-2.2)
[2021-02-11 16:08] LABS: Anion Gap 18.9 (5-19); Blood Urea Nitrogen 25 mg/dL (6-20); Calcium 8.5 mg/dL (8.5-10.5); Carbon Dioxide 24 mmol/L (22-29); Chloride 74 mmol/L (98-107); Cortisol Random 23.13 ug/dL (2.47-19.5); Glomerular Filtration Rate 25.7 mL/min (90-130); Glucose 87 mg/dL (65-115); Osmolality Calculated 236 mOsm/kg (285-295); Potassium 5.9 mmol/L (3.5-5.1)
[2021-02-11] MEDS: sodium chloride 3% 500 ML 100 ML IV (16:10)
[2021-02-11 16:11] LABS: Sodium 111 mmol/L (136-145)
[2021-02-11 16:30] LABS: Blood Urea Nitrogen 26 mg/dL (6-20); Calcium 8.6 mg/dL (8.5-10.5); Carbon Dioxide 22 mmol/L (22-29); Chloride 72 mmol/L (98-107); Glomerular Filtration Rate 26.8 mL/min (90-130); Glucose 88 mg/dL (65-115); Osmolality Calculated 228 mOsm/kg (285-295)
[2021-02-11 16:37] LABS: Sodium 107 mmol/L (136-145)
[2021-02-11 18:29] LABS: Glucose Point of Care 101 mg/dL (70-110)
[2021-02-11] MEDS: calcium gluconate 0.1 gm/mL 10% SDV 10mL 1 GM IVP (18:43)
[2021-02-11] MEDS: insulin regular-human 10 UNIT in SYRINGE 1 EACH IVP (18:44)
[2021-02-11] MEDS: dextrose 50% syringe 50 mL IVP (18:44)
[2021-02-11 18:46] LABS: Amphetamines Screen Urine Negative (Negative); Barbiturates Screen Urine Negative (Negative); Benzodiazepines Screen Urine Negative (Negative); Cocaine Screen Urine Negative (Negative); Opiate Screen Urine Negative (Negative); PCP Screen Urine Negative (Negative); THC Screen Urine Negative (Negative)
[2021-02-11 18:49] LABS: Bilirubin Urine Neg (Negative); Blood Urine Neg (Negative); Glucose Urine UA Norm (Normal); Ketones Urine Negative (Negative); Leukocyte Esterase Urine Negative (Negative); Nitrate Urine Negative (Negative); Protein Urine Neg (Negative); Urine Appearance Clear (CLEAR); Urine Color Yellow (Yellow); Urobilinogen Urine Norm (Negative); pH Urine 5 (5-7)
[2021-02-11 18:50] LABS: Mononuclear #, Pertinoneal Fl 0.255 10^3/uL; Polynuclear # Cells, Perit 1.743 10^3/uL
[2021-02-11 18:53] LABS: Bacteria Urine TRACE /hpf; Squamous Epithelial Cell Urine RARE /hpf (0-5); WBC Urine RARE /hpf (0-5)
[2021-02-11 18:54] LABS: Mucus Urine TRACE /hpf
--- NOTE | 2021-02-11 18:54 | PC.NURSE ---
Patient was admitted to unit at 1700 via bed. Patient is alert and oriented to self, place and situation but has trouble recalling events. Lungs are clear and abd is large, firm and distended. Dr. Brizuela gave verbal orders to drain 1,000ml of fluid from peritoneal cavity. Insulin and D50 was given per orders. Blood sugar was 101.
[2021-02-11 18:55] LABS: Add Urine Culture? No
[2021-02-11 18:57] LABS: Potassium, Radom Urine 61 mmol/L; Urine Creatinine 92 mg/dL (39-259); Urine Protein Random 13 mg/dL; Urine Random Chloride 38 mmol/L
[2021-02-11 19:00] LABS: Urine Random Sodium 10 mmol/L
[2021-02-11 19:23] LABS: Appearance, Peritoneal Fluid Cloudy (Clear); Color, Peritoneal Fluid Yellow (Pale Yellow)
[2021-02-11 19:25] LABS: RBC Pertioneal Fluid 0 10^3/uL; WBC Peritoneal Fluid 1998 /uL
[2021-02-11] MEDS: octreotide 500 MCG in sodium chloride 0.9% (100 ml) 100 ML 10.1 MCG IV (19:55)
[2021-02-11] MEDS: Dianeal low Ca w/1.5% dex 2,000 mL Bag 1000 ML INTRAPERIT (20:02)
[2021-02-11] MEDS: vancomycin 1,000 MG in sodium chloride 0.9% 250 ML 250 MG IV (20:13)
[2021-02-11 20:19] LABS: Eosinophil Urine No Eosinophils Seen; Urine Eosinophil Count 0 (0-0)
[2021-02-11 20:49] LABS: Anion Gap 15.3 (5-19); Blood Urea Nitrogen 26 mg/dL (6-20); Calcium 8.6 mg/dL (8.5-10.5); Carbon Dioxide 23 mmol/L (22-29); Chloride 77 mmol/L (98-107); Glomerular Filtration Rate 26.8 mL/min (90-130); Osmolality Calculated 231 mOsm/kg (285-295); Potassium 5.3 mmol/L (3.5-5.1)
[2021-02-11 21:04] LABS: Glucose 26 mg/dL (65-115); Sodium 110 mmol/L (136-145)
[2021-02-11 21:10] LABS: Glucose Point of Care 43 mg/dL (70-110)
[2021-02-11] MEDS: dextrose 50% syringe 50 mL (21:19)
[2021-02-11] MEDS: dextrose 10% 1,000 ML 50 ML IV (21:19)
[2021-02-11] MEDS: lactulose oral liq 20 gm/30 mL UDC 30 GM PO (21:37)
[2021-02-11 22:05] LABS: Glucose Point of Care 153 mg/dL (70-110)
--- NOTE | 2021-02-11 22:08 | PC.NURSE ---
1929 - Verified with Dr. Koroma, Dr. Brizuela, and Dialysis nurse elementary special education teacher orders to do PD through abdominal drain and discussed connecting the dialysis fluid to the drain. Also discussed starting patient on prophylactic antibiotics before using drain for PD. 2019 - Abdomen and abdominal drain cleaned with chlorhexadine. 1000 mL Low Ca+ 1.5% dextrose dialysis fluid instilled into abdomen via drain using sterile technique. Patient tolerated well. 2102 - Lab called with Sodium level of 110 and glucose level of 26. Currently on the phone with Dr. Brizuela, notified of labs. Patient wakes up easily, order given for 1 amp d50, start D10 at 50ml/hr and may repeat D50 if needed. 2109 - 1 Amp D50 given IVP, D10 started at 50ml/hr, patient awake and drank 2 juice boxes of cranberry/grape juice. 2199 - Recheck blood glucose 153.
[2021-02-12] VITALS (53 sets, daily range): BP systolic 92–136; BP diastolic 52–108; PULSE 51–89; RESP 14–25; TEMP 36–36.8; O2SAT 88–100
[2021-02-12] MEDS: Dianeal low Ca w/1.5% dex 2,000 mL Bag 1000 ML INTRAPERIT (00:01)
[2021-02-12 01:25] LABS: Glucose Point of Care 168 mg/dL (70-110)
--- NOTE | 2021-02-12 02:01 | PC.NURSE ---
Dr. Brizuela called to check on patients status. Notified that patients blood sugar is currently 168, D10 placed on hold. Midnight labs not drawn and currently trying to contact lab. Dr. Brizuela states to notify him of sodium level NICOLAS.
[2021-02-12 02:27] LABS: Anion Gap 18.2 (5-19); Blood Urea Nitrogen 24 mg/dL (6-20); Calcium 8.5 mg/dL (8.5-10.5); Carbon Dioxide 22 mmol/L (22-29); Chloride 77 mmol/L (98-107); Glomerular Filtration Rate 31.1 mL/min (90-130); Glucose 142 mg/dL (65-115); Osmolality Calculated 240 mOsm/kg (285-295); Potassium 5.2 mmol/L (3.5-5.1)
[2021-02-12 02:28] LABS: Sodium 112 mmol/L (136-145)
[2021-02-12] MEDS: TRAMadol 50 mg Tablet 100 MG PO (02:47)
[2021-02-12] MEDS: octreotide 500 MCG in sodium chloride 0.9% (100 ml) 100 ML 10.1 MCG IV ×2 (05:02→19:46)
[2021-02-12] MEDS: dilTIAZem 60 mg Tablet 120 MG PO (06:13)
[2021-02-12 06:15] LABS: Basophils % 0.1 %; Eosinophils % 0.5 %; Hematocrit 25.1 % (42.0-52.0); Lymphocytes # 0.6 10^3/uL (0.8-4.8); Lymphocytes % 6.9 %; Mean Corpuscular HGB Conc 35.9 g/dL (30.0-36.0); Mean Corpuscular Hemoglobin 34.1 pg (28.0-34.0); Mean Corpuscular Volume 95.1 fL (80-94); Mean Platelet Volume 9.4 fL (7.4-10.4); Monocytes # 0.7 10^3/uL (0.2-0.9); Monocytes % 7.9 %; Neutrophils # 7.24 10^3/uL (1.8-7.7); Neutrophils % 83.3 %; Nucleated Red Blood Cells % 0 %; Platelet Count 164 10^3/cmm (130-400); Red Blood Count 2.64 10^6/uL (4.1-5.3); Red Cell Distribution Width 14.5 % (12.1-15.1); White Blood Count 8.7 10^3/uL (4.0-10.0)
[2021-02-12 06:16] LABS: INR 1.32 (0.8-1.2)
[2021-02-12 06:30] LABS: Alanine Aminotransferase 9 U/L (0-41); Albumin Level 3.7 g/dL (3.5-5.2); Alkaline Phosphatase 113 IU/L (40-130); Aspartate Amino Transferase 20 U/L (0-40); Blood Urea Nitrogen 22 mg/dL (6-20); Calcium 8.5 mg/dL (8.5-10.5); Carbon Dioxide 26 mmol/L (22-29); Chloride 77 mmol/L (98-107); Globulin 1.7 g/dL (1.3-4.6); Glomerular Filtration Rate 29.6 mL/min (90-130); Glucose 114 mg/dL (65-115); Magnesium 2.2 mg/dL (1.7-2.3); Osmolality Calculated 240 mOsm/kg (285-295); Phosphorus 4.5 mg/dL (2.5-4.5); Total Protein 5.4 g/dL (6.6-8.7)
[2021-02-12 06:34] LABS: Procalcitonin 0.32 ng/mL (0-0.5)
[2021-02-12 06:52] LABS: Anion Gap 15.2 (5-19); Potassium 5.2 mmol/L (3.5-5.1); Sodium 113 mmol/L (136-145)
--- NOTE | 2021-02-12 07:26 | P.PN_ITS ---
Subjective Subjective: Interval history: more alert, swollen, confortable- tolerate d2 PD exchanges overnight Medications: Reviewed: Yes Medication Review Details: Current Medications Albuterol Sulfate (Albuterol 8 Gm Mdi) 2 puff INHALATION Q4H PRN PRN Reason: shortness of breath/wheezing Diltiazem HCl (Diltiazem 60 Mg Tablet) 120 mg PO Q8H [facility] Last Admin: 02/12/21 06:13 Dose: 120 mg Documented by: Fluticasone Propionate (Fluticasone Nasal [place] 16gm Btl) 1 spray INTRANASAL DAILY [facility] Folic Acid (Folic Acid 1 Mg Tablet) 1 mg PO DAILY@10 [facility] Albumin Human (Albumin) 25 gm in 100 mls @ 60 mls/hr IV Q6H [facility] Stop: 02/12/21 10:39 Last Infusion: 02/12/21 04:20 Dose: Infused Documented by: Octreotide Acetate 500 mcg/ (Sodium Chloride) 101 mls @ 10.1 mls/hr IV .Q10H [facility] Last Admin: 02/12/21 05:02 Dose: 50 mcg/hr, 10.1 mls/hr Documented by: Dextrose (D10w) 1,000 mls @ 50 mls/hr IV .Q20H [facility] Last Admin: 02/11/21 21:19 Dose: 50 mls/hr Documented by: Imipenem/Cilastatin Sodium 250 (mg/ Sodium Chloride) 100 mls @ 200 mls/hr IV BID DHAVAL; Protocol Last Infusion: 02/11/21 22:35 Dose: Infused Documented by: Lactulose (Lactulose Oral Liq 20 Gm/30 Ml Udc) 30 gm PO TID [facility] Last Admin: 02/11/21 21:37 Dose: 30 gm Documented by: Non-Formulary Medication (Ferrous Sulfate) 27 mg PO DAILY [facility] Non-Formulary Medication (Tiotropium [place] [Spiriva Respimat]) 2 puff INHALATION DAILY [facility] Non-Formulary Medication (Vitamins A,C,Y-Rnsd-Unbqnj [Preservision Areds]) 1 cap PO DAILY [facility] Non-Formulary Medication (Vitamin B Complex [B Complex-Vitamin B12]) 1 tab PO D AILY@16 [facility] Ondansetron HCl (Ondansetron 2 Mg/Ml Sdv 2 Ml) 4 mg IVP Q8H PRN PRN Reason: vomiting, or N/V if npo Pantoprazole Sodium (Pantoprazole Dr 40 Mg Tablet) 40 mg PO DAILY [facility] Peritoneal Dialysis Solution (Dianeal Low Ca W/1.5% Dex 2,000 Ml Bag) 1,000 ml INTRAPERIT 6XD [facility] Last Admin: 02/12/21 04:21 Dose: Not Given Documented by: Thiamine Mononitrate (Thiamine 100 Mg Tablet) 250 mg PO DAILY [facility] Tramadol HCl (Tramadol 50 Mg Tablet) 100 mg PO DAILY PRN PRN Reason: Pain Last Admin: 02/12/21 02:47 Dose: 100 mg Documented by: Vitals/I&O/Wt Last Vital Signs Temp 97.8 F 02/12/21 04:00 Pulse 68 02/12/21 06:00 Resp 18 02/12/21 06:00 BP 96/63 02/12/21 06:00 Pulse Ox 97 02/12/21 04:30 02/11/21 02/12/21 02/12/21 22:59 06:59 14:59 Intake Total 1356.667 / 9270.992 7522.411 / 3842.078 Output Total 1000 / 1000 3800 / 4800 Balance 356.667 / 356.667 -1314.589 / -957.922 Weight last 48 hrs Weight 120.021 kg Weight 113.398 kg Physical Exam Narrative: EXAM NARRATIVE: swollen, comfortable in bed, NARD VS noted heent- nc/at, eomi, anicteric neck supple lung clear b/l heart irreg irreg abd soft, distended, NT, + rt sided Tenkoff catheter- redness by site ext b/l edema, red lesions neuro- a,a, o x 2 Urinary Catheter Management^: Weir: Cath Placed During This Visit: yes Reason for Continuing Indwelling Catheter: Accurate Measurement of Urinary Output in Critically Ill Patients Urinary Catheter Date of Insertion: 02/11/21 Urinary Catheter Time of Insertion: 17:32 Data : 02/12/21 05:15 02/12/21 05:15 Micro: Microbiology 02/11/21 16:03 Blood Culture - Preliminary Blood SPECIMEN COLLECTED 02/11/21 15:20 Blood Culture - Preliminary Blood SPECIMEN COLLECTED A&P Additional A&P Information 55 yr old man 1. ALcoholic cirrhosis 2. acute on chronic hyponatremia- check tsh, cortisol, urine lytes -likely from diuretics and SAMI -na from 107 to 113- attempt to correct 6-8 meq/ l per 24 hrs -cont check chem 7 q 4- 6 hrs -normal tsh -cortisol appropriate at 23 -ur na 10- prerenal chronic hyponatremia from liver disease- low ur na in 2019 -AMS improving 3. SAMI- likely HRS vs prerneal vs ATN- hold diuretics -cont iv albumin, octreotide, mididrine, and norepinephrine if needed -renal us -check urine studies 4. hyperkalemia- on aldactone and k at home and SAMI -improved off aldactone and potassium. also had 2 cycles of PD -monitor k every 4 hrs 5. chronic a f ib 6, chronic systolic CHF- EF 40-45% 7. leukocytosis- estrada- culture- eval for infection- s/p vanco yesterday- as tenkoff catheter appeared dirty- repeat level and redose for level <19 -wbc improving -pd fluid 1997- c/w Peritonitis- vanco and gram neg coverage 8. needs to stop etoh use 9. anemia- check iron studies 10. 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
--- NOTE | 2021-02-12 07:34 | USR_ITS ---
PROCEDURE INFORMATION: Exam: US Retroperitoneal; Complete; Kidneys and Bladder Exam date and time: 02/12/2021 8:10 AM Age: 55 years old Clinical indication: Other: Abnormal labs; Additional info: Adarsh TECHNIQUE: Imaging protocol: Real-time ultrasound of the retroperitoneum with image documentation. Complete exam focused on the kidneys and bladder. COMPARISON: US abdomen lmt fluid [id number] 02/18/2020 10:07 AM FINDINGS: Right kidney: The right kidney is smaller than the left measuring 8.9 cm in length. The echotexture of the kidney is appropriate. The right renal cortex measures 1.4 cm in thickness. No stones. No hydronephrosis. Left kidney: Normal. The left kidney measures 11.4 cm in length. The cortex measures 1.5 cm in thickness. No stones. No hydronephrosis. Urinary bladder: Unremarkable. Other findings: The exam is limited by bowel gas artifact. US/US renal BI* [id number] IMPRESSION: The right kidney is smaller than the left. Otherwise unremarkable kidneys and bladder.
[2021-02-12] MEDS: pantoprazole DR 40 mg Tablet PO (08:57)
[2021-02-12] MEDS: fluticasone nasal spray 16gm Btl 1 SPRAY INTRANASAL (08:58)
[2021-02-12] MEDS: thiamine 100 mg Tablet 250 MG PO (09:01)
[2021-02-12] MEDS: folic acid 1 mg Tablet PO (09:01)
--- NOTE | 2021-02-12 10:25 | PM.PN ---
Subjective Subjective: Interval history: Started PD overnight, received 2 exchanges, still remains significantly fluid overloaded. Sodium Improved to 113 this morning. Patient is alert awake and oriented. Potassium at 5.2. Noted bradycardia with HR ranging 40-50s, BP maintained, pt asymptomatic, has not attempted to get out of bed Medications: Reviewed: Yes Medication Review Details: Current Medications Albuterol Sulfate (Albuterol 8 Gm Mdi) 2 puff INHALATION Q4H PRN PRN Reason: shortness of breath/wheezing Diltiazem HCl (Diltiazem 60 Mg Tablet) 120 mg PO Q8H [facility] Last Admin: 02/12/21 06:13 Dose: 120 mg Documented by: Fluticasone Propionate (Fluticasone Nasal [place] 16gm Btl) 1 spray INTRANASAL DAILY [facility] Folic Acid (Folic Acid 1 Mg Tablet) 1 mg PO DAILY@10 [facility] Albumin Human (Albumin) 25 gm in 100 mls @ 60 mls/hr IV Q6H [facility] Stop: 02/12/21 10:39 Last Infusion: 02/12/21 04:20 Dose: Infused Documented by: Octreotide Acetate 500 mcg/ (Sodium Chloride) 101 mls @ 10.1 mls/hr IV .Q10H [facility] Last Admin: 02/12/21 05:02 Dose: 50 mcg/hr, 10.1 mls/hr Documented by: Dextrose (D10w) 1,000 mls @ 50 mls/hr IV .Q20H [facility] Last Admin: 02/11/21 21:19 Dose: 50 mls/hr Documented by: Imipenem/Cilastatin Sodium 250 (mg/ Sodium Chloride) 100 mls @ 200 mls/hr IV BID [facility]; Protocol Last Infusion: 02/11/21 22:35 Dose: Infused Documented by: Lactulose (Lactulose Oral Liq 20 Gm/30 Ml Udc) 30 gm PO TID [facility] Last Admin: 02/11/21 21:37 Dose: 30 gm Documented by: Non-Formulary Medication (Ferrous Sulfate) 27 mg PO DAILY [facility] Non-Formulary Medication (Tiotropium [place] [Spiriva Respimat]) 2 puff INHALATION DAILY [facility] Non-Formulary Medication (Vitamins A,C,A-Ftck-Nswlqn [Preservision Areds]) 1 cap PO DAILY [facility] Non-Formulary Medication (Vitamin B Complex [B Complex-Vitamin B12]) 1 tab PO DAILY@16 [facility] Ondansetron HCl (Ondansetron 2 Mg/Ml Sdv 2 Ml) 4 mg IVP Q8H PRN PRN Reason: vomiting, or N/V if npo Pantoprazole Sodium (Pantoprazole Dr 40 Mg Tablet) 40 mg PO DAILY [facility] Peritoneal Dialysis Solution (Dianeal Low Ca W/1.5% Dex 2,000 Ml Bag) 1,000 ml INTRAPERIT 6XD [facility] Last Admin: 02/12/21 04:21 Dose: Not Given Documented by: Thiamine Mononitrate (Thiamine 100 Mg Tablet) 250 mg PO DAILY [facility] Tramadol HCl (Tramadol 50 Mg Tablet) 100 mg PO DAILY PRN PRN Reason: Pain Last Admin: 02/12/21 02:47 Dose: 100 mg Documented by: Vitals/I&O/Wt Last Vital Signs Temp 97.8 F 02/12/21 04:00 Pulse 59 L 02/12/21 10:00 Resp 23 H 02/12/21 10:00 BP 102/52 02/12/21 08:30 Pulse Ox 95 02/12/21 10:00 02/11/21 02/12/21 02/12/21 22:59 06:59 14:59 Intake Total 1356.667 / 0964.096 6865.411 / 3842.078 240 / 240 Output Total 1000 / 1000 3800 / 4800 Balance 356.667 / 356.667 -1314.589 / -957.922 240 / 240 Weight last 48 hrs Weight 120.021 kg Weight 113.398 kg Physical Exam Narrative: EXAM NARRATIVE: GEN: Awake, alert and oriented, no acute distress CVS: S1S2 N RS: B/L scattered crackles in lung bases Abd: Soft, nt/nd , bs+ FASHION MARKETER: no focal neuro deficits EXT: 2+ pitting edema B/L Urinary Catheter Management^: Weir: Cath Placed During This Visit: yes Reason for Continuing Indwelling Catheter: Accurate Measurement of Urinary Output in Critically Ill Patients Urinary Catheter Date of Insertion: 02/11/21 Urinary Catheter Time of Insertion: 17:32 Data : 02/12/21 05:15 02/12/21 05:15 Micro: Microbiology 02/11/21 18:00 Gram Stain - Final Ascites Fluid 02/11/21 16:03 Blood Culture - Preliminary Blood SPECIMEN COLLECTED 02/11/21 15:20 Blood Culture - Preliminary Blood SPECIMEN COLLECTED A&P Assessment and plan (1) Hyponatremia: Acute on chronic symptomatic hyponatremia. Multifactorial Patient admitted with serum sodium of 107:s/p 3% saline , Na improved to 113, traget increase of 6-8 per 24 hours period. No current neurological deficits likely related to diuretics and SAMI Continue CMP check every 6 hours Status: Acute (2) Acute metabolic encephalopathy: Acute metabolic encephalopathy. CT head without contrast: Normal Now back at baseline mentation Status: Acute (3) Acute renal failure: SAMI likely HRS V/S prerenal: Current plan is to hold diuretics: Which includes Lasix and spironolactone. Started on albumin and octreotide Blood pressure is stable: Chances of using midodrine or Levophed is less likely Appreciate renal recommendations Status: Acute Qualifiers: Acute renal failure type: with acute tubular necrosis Qualified Code(s): N17.0 - Acute kidney failure with tubular necrosis (4) Atrial fibrillation and flutter: Currently bradycardic, hold Cardizem, last dose at 02/12 at 6: 00AM. Telemetry Not on anticoagulation, because of prior history of GI bleed Status: Acute (5) Ascites due to alcoholic cirrhosis: Status: Acute (6) CHF (congestive heart failure), NYHA class III: Heart failure with preservation fraction Diuretics on hold due to SAMI Patient with overall fluid overload S/p 2 cycles of PD overnight Status: Acute Qualifiers: Congestive heart failure type: systolic Congestive heart failure chronicity: unspecified Qualified Code(s): I50.20 - Unspecified systolic (congestive) heart failure (7) Decompensation of cirrhosis of liver: Follows with hepatoligist in [place], does not recall name, was referred to [facility] for liver transplant. however he has since relapsed and currently consuming daily alcohol for the past 1.5 years. Status: Acute (8) Bradycardia: As abive, hold cardizem Status: Acute (9) Hypoglycemia: S/p insulin 10 units yesterday, unable to ascertain if received concomitant dextrose . This am he is euglycemic Status: Acute (10) Peritonitis: PD cell count 1997, gram stain with GPC in pairs ans clusters Currently on imipenem ---> change to Ceftriaxone, listed allergy to PCN , however has tolerated ceftriaxone in the past Continue sytemic vancomycin based on levels Status: Acute Additional A&P Information CODE STATUS: Full code DVT prophylaxis: SCDs Disposition: ongoing planning - SNF vs home. Unable to arrange HH for patient in spite of multiple attempts on recent last visit. Attestations Medical Necessity Statement*: hyponatremia, PD peritonitis needs iv abx, octreotide infusion Critical Care Time: The high probability of a clinically significant, sudden or life threatening deterioration of the patient's [renal, hepatic,infectious] system(s) required my full and direct attention, intervention and personal management. The critical care time is as shown. 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
[2021-02-12 11:06] LABS: Free T4 Free Thyroxine 0.95 ng/dL (0.82-1.77); T3 Free 1.5 PG/ML (2.0-4.4)
[2021-02-12 11:50] LABS: Glucose Point of Care 176 mg/dL (70-110)
--- NOTE | 2021-02-12 12:12 | PC.NURSE ---
Blood glucose was checked due to low blood sugar previous shift.
[2021-02-12] MEDS: cefTRIAXone 1,000 MG in sodium chloride 0.9% (plus) 50 ML 100 MG IV (12:13)
--- NOTE | 2021-02-12 12:54 | PC.NURSE ---
IV was removed from patients left AC due to pain with flushes and cool skin. When venaguard was removed the skin became torn from the adhesive. Patient stated that it happens very frequently. Telfa was applied with ointment and wrapped with coban.
[2021-02-12 13:01] LABS: Calcium 8.5 mg/dL (8.5-10.5)
[2021-02-12 13:02] LABS: Blood Urea Nitrogen 23 mg/dL (6-20); Calcium 8.6 mg/dL (8.5-10.5); Carbon Dioxide 25 mmol/L (22-29); Chloride 78 mmol/L (98-107); Ferritin 983 ng/mL (30-400); Glomerular Filtration Rate 29.6 mL/min (90-130); Glucose 102 mg/dL (65-115); Iron 80 ug/dL (59-158); Osmolality Calculated 240 mOsm/kg (285-295); Percent Saturation 71.4 % (20-50); Total Iron Binding Capacity 112 mcg/dl; Unsaturated Iron Binding 32 ug/dL (112-347)
[2021-02-12 13:08] LABS: Parathyroid Hormone 29.8 pg/mL (15-65)
[2021-02-12 13:18] LABS: 25 Hydroxy Vitamin D 6 ng/mL (30-100)
[2021-02-12 13:29] LABS: Sodium 113 mmol/L (136-145)
[2021-02-12] MEDS: lactulose oral liq 20 gm/30 mL UDC 30 GM PO (14:11)
[2021-02-12] MEDS: ergocalciferol (vitamin D2) 50,000 Unit Capsule 50000 UNIT PO (14:11)
[2021-02-12] MEDS: sodium chloride 0.9% 1,000 ML 100 ML IV (14:12)
--- NOTE | 2021-02-12 17:29 | PC.NURSE ---
Patient has been sleeping most of this shift. Lunch and dinner have been taken into room and patient stated he wanted to rest and he will eat when he woke up later. Manasy is at bedside.
[2021-02-12] MEDS: neomycin-poly-bacitracin oint 28 gm 1 APPLIC TOPICAL (17:39)
[2021-02-12] MEDS: ondansetron 2 mg/ML SDV 2 mL 4 MG IVP (17:40)
[2021-02-12 18:30] LABS: Anion Gap 17.8 (5-19); Blood Urea Nitrogen 24 mg/dL (6-20); Calcium 8.6 mg/dL (8.5-10.5); Carbon Dioxide 24 mmol/L (22-29); Chloride 78 mmol/L (98-107); Glomerular Filtration Rate 25.7 mL/min (90-130); Glucose 94 mg/dL (65-115); Osmolality Calculated 244 mOsm/kg (285-295); Potassium 4.8 mmol/L (3.5-5.1)
--- NOTE | 2021-02-12 18:31 | PC.NURSE ---
Octreotide still running. Will scan new bag when needed
[2021-02-12 18:32] LABS: Sodium 115 mmol/L (136-145)
[2021-02-13] VITALS (39 sets, daily range): BP systolic 103–138; BP diastolic 61–82; PULSE 72–98; RESP 10–24; TEMP 36.1–36.4; O2SAT 95–100
[2021-02-13] MEDS: ondansetron 2 mg/ML SDV 2 mL 4 MG IVP (01:30)
[2021-02-13 01:33] LABS: Blood Urea Nitrogen 22 mg/dL (6-20); Calcium 8.4 mg/dL (8.5-10.5); Carbon Dioxide 23 mmol/L (22-29); Chloride 79 mmol/L (98-107); Glomerular Filtration Rate 29.6 mL/min (90-130); Glucose 93 mg/dL (65-115); Osmolality Calculated 241 mOsm/kg (285-295)
[2021-02-13 01:36] LABS: Sodium 114 mmol/L (136-145)
[2021-02-13] MEDS: FUROsemide 10 mg/mL SDV 4mL 40 MG IVP (03:14)
[2021-02-13] MEDS: sodium chloride 0.9% 1,000 ML 125 ML IV (03:14)
[2021-02-13 04:10] LABS: Basophils % 0.3 %; Eosinophils % 0.3 %; Hematocrit 28.3 % (42.0-52.0); Hemoglobin 9.9 g/dL (11.7-16.6); Lymphocytes # 0.3 10^3/uL (0.8-4.8); Mean Corpuscular Volume 97.3 fL (80-94); Mean Platelet Volume 9.2 fL (7.4-10.4); Monocytes # 0.4 10^3/uL (0.2-0.9); Neutrophils # 12.95 10^3/uL (1.8-7.7); Neutrophils % 93.7 %; Nucleated Red Blood Cells % 0 %; Platelet Count 154 10^3/cmm (130-400); Red Blood Count 2.91 10^6/uL (4.1-5.3); Red Cell Distribution Width 14.8 % (12.1-15.1); White Blood Count 13.8 10^3/uL (4.0-10.0)
[2021-02-13 04:33] LABS: Alanine Aminotransferase 8 U/L (0-41); Albumin Level 3.9 g/dL (3.5-5.2); Alkaline Phosphatase 102 IU/L (40-130); Aspartate Amino Transferase 17 U/L (0-40); Blood Urea Nitrogen 22 mg/dL (6-20); Calcium 8.6 mg/dL (8.5-10.5); Carbon Dioxide 23 mmol/L (22-29); Chloride 79 mmol/L (98-107); Globulin 1.8 g/dL (1.3-4.6); Glomerular Filtration Rate 29.6 mL/min (90-130); Glucose 86 mg/dL (65-115); Magnesium 2.3 mg/dL (1.7-2.3); Osmolality Calculated 243 mOsm/kg (285-295); Phosphorus 4.1 mg/dL (2.5-4.5); Total Bilirubin 2.4 mg/dL (0.15-1.2); Total Protein 5.7 g/dL (6.6-8.7)
[2021-02-13 04:36] LABS: Sodium 115 mmol/L (136-145)
[2021-02-13 04:40] LABS: Vancomycin Random 7.8 ug/mL (20.0-40.0)
[2021-02-13] MEDS: octreotide 500 MCG in sodium chloride 0.9% (100 ml) 100 ML 10.1 MCG IV (05:04)
--- NOTE | 2021-02-13 08:16 | P.PN_ITS ---
Subjective Subjective: Interval history: diarrhea, abd distention, weak, less swollen. + c diff -on oral vanco Medications: Reviewed: Yes Medication Review Details: Current Medications Albuterol Sulfate (Albuterol 8 Gm Mdi) 2 puff INHALATION Q4H PRN PRN Reason: shortness of breath/wheezing Diltiazem HCl (Diltiazem 60 Mg Tablet) 120 mg PO Q8H [facility] Last Admin: 02/12/21 06:13 Dose: 120 mg Documented by: Ergocalciferol (Ergocalciferol (Vitamin D2) 50,000 Unit Capsule) 50,000 unit PO Q7D [facility] Last Admin: 02/12/21 14:11 Dose: 50,000 unit Documented by: Fluticasone Propionate (Fluticasone Nasal [place] 16gm Btl) 1 spray INTRANASAL DAILY [facility] Last Admin: 02/12/21 08:58 Dose: 1 applic Documented by: Folic Acid (Folic Acid 1 Mg Tablet) 1 mg PO DAILY@10 [facility] Last Admin: 02/12/21 09:01 Dose: 1 mg Documented by: Octreotide Acetate 500 mcg/ (Sodium Chloride) 101 mls @ 10.1 mls/hr IV .Q10H [facility] Last Admin: 02/13/21 05:04 Dose: 50 mcg/hr, 10.1 mls/hr Documented by: Dextrose (D10w) 1,000 mls @ 50 mls/hr IV .Q20H [facility] Last Admin: 02/11/21 21:19 Dose: 50 mls/hr Documented by: Ceftriaxone Sodium 1,000 mg/ (Sodium Chloride) 50 mls @ 100 mls/hr IV Q24H [facility]; Protocol Last Infusion: 02/12/21 13:00 Dose: Infused Documented by: Albumin Human (Albumin) 25 gm in 100 mls @ 60 mls/hr IV Q8H [facility] Last Infusion: 02/13/21 03:05 Dose: Infused Documented by: Sodium Chloride (Sodium Chloride 0.9%) 1,000 mls @ 125 mls/hr IV .Q8H [facility] Last Admin: 02/13/21 03:14 Dose: 125 mls/hr Documented by: Vancomycin HCl 1,000 mg/ (Sodium Chloride) 250 mls @ 250 mls/hr IV ONCE ONE; Protocol Stop: 02/13/21 09:14 Lactulose (Lactulose Oral Liq 20 Gm/30 Ml Udc) 30 gm PO TID [facility] Last Admin: 02/12/21 21:28 Dose: Not Given Documented by: Neomycin/Polymyxin/Bacitracin (Sylvxhnw-Qmpx-Tvbidhqdcj Oint 28 Gm) 1 applic TOPICAL BID [facility] Last Admin: 02/12/21 17:39 Dose: 1 applic Documented by: Non-Formulary Medication (Ferrous Sulfate) 27 mg PO DAILY [facility] Non-Formulary Medication (Tiotropium [place] [Spiriva Respimat]) 2 puff INHALATION DAILY [facility] Non-Formulary Medication (Vitamins A,C,E-Acav-Nouzfs [Preservision Areds]) 1 cap PO DAILY [facility] Non-Formulary Medication (Vitamin B Complex [B Complex-Vitamin B12]) 1 tab PO DAILY@16 [facility] Ondansetron HCl (Ondansetron 2 Mg/Ml Sdv 2 Ml) 4 mg IVP Q8H PRN PRN Reason: vomiting, or N/V if npo Last Admin: 02/13/21 01:30 Dose: 4 mg Documented by: Pantoprazole Sodium (Pantoprazole Dr 40 Mg Tablet) 40 mg PO DAILY [facility] Last Admin: 02/12/21 08:57 Dose: 40 mg Documented by: Peritoneal Dialysis Solution (Dianeal Low Ca W/1.5% Dex 2,000 Ml Bag) 1,000 ml INTRAPERIT 6XD [facility] Last Admin: 02/13/21 08:12 Dose: Not Given Documented by: Thiamine Mononitrate (Thiamine 100 Mg Tablet) 250 mg PO DAILY [facility] Last Admin: 02/12/21 09:01 Dose: 250 mg Documented by: Tramadol HCl (Tramadol 50 Mg Tablet) 100 mg PO DAILY PRN PRN Reason: Pain Last Admin: 02/12/21 02:47 Dose: 100 mg Documented by: Vancomycin HCl (Vancomycin 1,000 Mg Oral [place]ess[place] (Btl)) 125 mg PO Q6H [facility] Last Admin: 02/13/21 04:39 Dose: 125 mg Documented by: Vitals/I&O/Wt Last Vital Signs Temp 98.2 F 02/12/21 19:48 Pulse 77 02/13/21 07:51 Resp 16 02/13/21 07:51 BP 131/65 02/13/21 08:00 Pulse Ox 97 02/13/21 07:51 02/12/21 02/13/21 02/13/21 22:59 06:59 14:59 Intake Total 261 / 751.1 1293.93 / 2045.03 Output Total 650 / 650 350 / 1000 Balance -389 / 101.1 943.93 / 1045.03 Weight last 48 hrs Weight 125.844 kg Weight 120.021 kg Weight 113.398 kg Physical Exam Narrative: EXAM NARRATIVE: swollen, comfortable in bed, NARD VS noted heent- nc/at, eomi, anicteric neck supple lung clear b/l heart irreg irreg abd soft, distended, NT, + rt sided Tenkoff catheter- redness by site ext b/l edema improving, red lesions neuro- a,a, o x 2+ Urinary Catheter Management^: Weir: Cath Placed During This Visit: yes Reason for Continuing Indwelling Catheter: Accurate Measurement of Urinary Output in Critically Ill Patients Urinary Catheter Date of Insertion: 02/11/21 Urinary Catheter Time of Insertion: 17:32 Data : 02/13/21 03:30 02/13/21 03:30 Micro: Microbiology 02/11/21 17:30 Urine Culture - Preliminary Urine Catheterized Gram Negative Rods 02/11/21 16:03 Blood Culture - Preliminary Blood NEGATIVE TO DATE 02/11/21 15:20 Blood Culture - Preliminary Blood NEGATIVE TO DATE 02/11/21 07:15 C.difficile Toxin B Gene (PCR) - Final Stool - Stool Aspirate 02/11/21 18:00 Gram Stain - Final Ascites Fluid A&P Additional A&P Information 55 yr old man 1. ALcoholic cirrhosis 2. acute on chronic hyponatremia- -likely from diuretics, diarrhea, and SAMI -na from 107 to 113- to 115- attempt to correct 6-8 meq/ l per 24 hrs -cont check chem 7 q 6 hrs -normal tsh -cortisol appropriate at 23 -ur na 10- prerenal chronic hyponatremia from liver disease- low ur na in 2020 -AMS improving 3. SAMI- likely HRS vs prerneal vs ATN- hold diuretics -cont iv albumin, octreotide, mididrine, and norepinephrine if needed -renal us- Right kidney: The right kidney is smaller than the left measuring 8.9 cm in length. The echotexture of the kidney is appropriate. The right renal cortex measures 1.4 cm in thickness. No stones. No hydronephrosis. Left kidney: Normal. The left kidney measures 11.4 cm in length. The cortex measures 1.5 cm in thickness. No stones. No hydronephrosis. Urinary bladder: Unremarkable -check urine studies- low ur na 10 -CR STABLE 4. hyperkalemia- on aldactone and k at home and SAMI -improved off aldactone and potassium. also had 2 cycles of PD -monitor k every 6 hrs 5. chronic a f ib 6, chronic systolic CHF- EF 40-45%- will likely drain Peritoneal fluids today based on BP and blood work- bp excellent now 7. leukocytosis- likely from c diff colitis - also urine cx w/ gram neg rods -also Peritoneal draining catheter appeared dirty- redose iv vanco for level <19 -pd fluid 1997- c/w Peritonitis- vanco and gram neg coverage 8. needs to stop etoh use 9. anemia- check iron studies- ferritin 983 10. DM- hypoglycemia improved PTH 30 discussed w/ pt and rn seen w/ RN- telehealth visit Attestations Medical Necessity Statement*: SAMI, HYPONATREMIA, C DIFF COLITIS, UTI Time Spent in Patient Care: 16 - 35 minutes Coding Level of Care Code Acute Rehabilitation Medicine Physician for [facility] Y[facility]
[2021-02-13] MEDS: vancomycin 1,000 MG in sodium chloride 0.9% 250 ML 250 MG IV (08:34)
[2021-02-13] MEDS: thiamine 100 mg Tablet 250 MG PO (08:34)
[2021-02-13] MEDS: pantoprazole DR 40 mg Tablet PO (08:34)
[2021-02-13] MEDS: fluticasone nasal spray 16gm Btl 1 SPRAY INTRANASAL (08:36)
[2021-02-13] MEDS: neomycin-poly-bacitracin oint 28 gm 1 APPLIC TOPICAL ×2 (08:36→17:49)
--- NOTE | 2021-02-13 09:15 | PC.NURSE ---
Patient requested to use bedpan because he was to weak and tired. This nurse suggested that he attempted to use bedside commode and another nurse would assist. Patient was able to use the bedside commode with one assist. This nurse got a chair and placed it next to patient and suggested he sit up in chair today. Patient stated, No honey I'm to weak. Not today. Breakfast was refused. Will offer assistance to chair again before lunch.
[2021-02-13] MEDS: TRAMadol 50 mg Tablet 100 MG PO (09:53)
[2021-02-13] MEDS: folic acid 1 mg Tablet PO (09:54)
--- NOTE | 2021-02-13 10:31 | PC.CHAP ---
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 recreation instructor visit [] Patient/Family/Request visit [] Outpatient visit [] Follow-up visit [] Physician referral [] Code/Alert [x] Routine visit [] Staff referral [] Actively dying [] Patient sleeping [] Family support [] [] Out of room [] Palliative care [] [] Receiving care in room [] Pre-surgical visit [] Trauma [] Long length of stay [x] ICU visit [] Other: Relational/Emotional Strength [] Patient feels connected with others/family/visitors/staff [] Distress [] Loneliness/isolation [] Abandonment Spirituality of Patient [] Person of Jana [] Attends Voodoo of their Jana [] Believes in Prayer [] Reads Bible or Pentecostal materials [] There are Spiritual issues to be addressed Radiology Supervisor Interventions [x] Prayer [x] Active listening [x] Non-anxious presence [x] Spiritual/emotional support [] Crisis/trauma care [] Spiritual counseling [] Bereavement support [] Provided bereavement packet [] Provided Bible/devotional materials [] Provided toy/stuffed animal, coloring book to patient or family member [] Provided Communion [] Anointing/[place] [] Salvation [x] Completed spiritual assessment [] Other: Impact on Illness or Injury [] Angry [] Fearful [] Anxious [] Often cries [] Exhaustion [] Unable to work [] Unable to attend mosque [] Unable to walk/stand [] Unable to read [] Unable to drive [] Unable to eat/drink [] Unable to sleep [] Unable to be with family [] Patient intubated [] Other: Summary patient doing better Time spent with patient 5 min
--- NOTE | 2021-02-13 11:47 | XRR_ITS ---
PROCEDURE INFORMATION: Exam: XR Chest Exam date and time: 02/13/2021 11:52 AM Age: 55 years old Clinical indication: Device placement; Picc; Additional info: Midline placement TECHNIQUE: Imaging protocol: XR of the chest. Views: 1 view. COMPARISON: CR (CHEST, ) 02/11/2021 1:09 PM FINDINGS: Tubes, catheters and devices: A right arm PICC is present with the tip projecting in the right axilla. Lungs: The left lung base is opacified consistent with lower lobe atelectasis and pleural effusion. Allowing for differences in position this is probably unchanged. The right lung is clear. Pleural spaces: Left pleural effusion. No pneumothorax. Heart/Mediastinum: Unremarkable. No cardiomegaly. Bones/joints: Unremarkable. XR/XR chest 1V portable [id number] IMPRESSION: 1. Satisfactory midline PICC position. 2. Opacification of the left base consistent with lower lobe atelectasis with pleural effusion. No significant change allowing for differences in position
[2021-02-13] MEDS: cefTRIAXone 1,000 MG in sodium chloride 0.9% (plus) 50 ML 100 MG IV (12:00)
[2021-02-13 12:26] LABS: Blood Urea Nitrogen 22 mg/dL (6-20); Calcium 8.2 mg/dL (8.5-10.5); Carbon Dioxide 23 mmol/L (22-29); Chloride 80 mmol/L (98-107); Glomerular Filtration Rate 31.1 mL/min (90-130); Glucose 87 mg/dL (65-115); Osmolality Calculated 245 mOsm/kg (285-295)
[2021-02-13 12:31] LABS: Anion Gap 17.7 (5-19); Potassium 4.7 mmol/L (3.5-5.1); Sodium 116 mmol/L (136-145)
[2021-02-13] MEDS: sodium chloride 0.9% 1,000 ML 80 ML IV (13:58)
[2021-02-13] MEDS: sodium chloride 1 gm Tablet PO ×2 (15:27→20:27)
[2021-02-13] MEDS: midodrine 5 mg TABLET PO ×2 (15:27→20:27)
[2021-02-13] MEDS: lactulose oral liq 20 gm/30 mL UDC 30 GM PO ×2 (15:27→20:26)
--- NOTE | 2021-02-13 16:31 | PC.NURSE ---
Right groin sheath was pulled at 1545. Pressure was held for 20 minuets. Hematoma was noted and marked. Dressing was applied and sand bag was placed over the site.
--- NOTE | 2021-02-13 16:57 | P.PN_ITS ---
Subjective Subjective: Interval history: C diff PCR returned positive, started on po vancomycin , refusing liquid form today. Started on midodrine alongside octreotide, NA improving, cr stable , picc line to be placed today Medications: Medication Review Details: Current Medications Albuterol Sulfate (Albuterol 8 Gm Mdi) 2 puff INHALATION Q4H PRN PRN Reason: shortness of breath/wheezing Diltiazem HCl (Diltiazem 60 Mg Tablet) 120 mg PO Q8H [facility] Last Admin: 02/12/21 06:13 Dose: 120 mg Documented by: Ergocalciferol (Ergocalciferol (Vitamin D2) 50,000 Unit Capsule) 50,000 unit PO Q7D [facility] Last Admin: 02/12/21 14:11 Dose: 50,000 unit Documented by: Fluticasone Propionate (Fluticasone Nasal [place] 16gm Btl) 1 spray INTRANASAL DAILY [facility] Last Admin: 02/12/21 08:58 Dose: 1 applic Documented by: Folic Acid (Folic Acid 1 Mg Tablet) 1 mg PO DAILY@10 [facility] Last Admin: 02/12/21 09:01 Dose: 1 mg Documented by: Octreotide Acetate 500 mcg/ (Sodium Chloride) 101 mls @ 10.1 mls/hr IV .Q10H [facility] Last Admin: 02/13/21 05:04 Dose: 50 mcg/hr, 10.1 mls/hr Documented by: Dextrose (D10w) 1,000 mls @ 50 mls/hr IV .Q20H [facility] Last Admin: 02/11/21 21:19 Dose: 50 mls/hr Documented by: Ceftriaxone Sodium 1,000 mg/ (Sodium Chloride) 50 mls @ 100 mls/hr IV Q24H [facility]; Protocol Last Infusion: 02/12/21 13:00 Dose: Infused Documented by: Albumin Human (Albumin) 25 gm in 100 mls @ 60 mls/hr IV Q8H [facility] Last Infusion: 02/13/21 03:05 Dose: Infused Documented by: Sodium Chloride (Sodium Chloride 0.9%) 1,000 mls @ 125 mls/hr IV .Q8H [facility] Last Admin: 02/13/21 03:14 Dose: 125 mls/hr Documented by: Vancomycin HCl 1,000 mg/ (Sodium Chloride) 250 mls @ 250 mls/hr IV ONCE ONE; Protocol Stop: 02/13/21 09:14 Lactulose (Lactulose Oral Liq 20 Gm/30 Ml Udc) 30 gm PO TID [facility] Last Admin: 02/12/21 21:28 Dose: Not Given Documented by: Neomycin/Polymyxin/Bacitracin (Cccvqrmp-Vkqw-Djkgqqybhx Oint 28 Gm) 1 applic TOPICAL BID [facility] Last Admin: 02/12/21 17:39 Dose: 1 applic Documented by: Non-Formulary Medication (Ferrous Sulfate) 27 mg PO DAILY [facility] Non-Formulary Medication (Tiotropium [place] [Spiriva Respimat]) 2 puff INHALATION DAILY [facility] Non-Formulary Medication (Vitamins A,C,X-Lvah-Jbrpmc [Preservision Areds]) 1 cap PO DAILY [facility] Non-Formulary Medication (Vitamin B Complex [B Complex-Vitamin B12]) 1 tab PO DAILY@16 [facility] Ondansetron HCl (Ondansetron 2 Mg/Ml Sdv 2 Ml) 4 mg IVP Q8H PRN PRN Reason: vomiting, or N/V if npo Last Admin: 02/13/21 01:30 Dose: 4 mg Documented by: Pantoprazole Sodium (Pantoprazole Dr 40 Mg Tablet) 40 mg PO DAILY [facility] Last Admin: 02/12/21 08:57 Dose: 40 mg Documented by: Peritoneal Dialysis Solution (Dianeal Low Ca W/1.5% Dex 2,000 Ml Bag) 1,000 ml INTRAPERIT 6XD [facility] Last Admin: 02/13/21 08:12 Dose: Not Given Documented by: Thiamine Mononitrate (Thiamine 100 Mg Tablet) 250 mg PO DAILY [facility] Last Admin: 02/12/21 09:01 Dose: 250 mg Documented by: Tramadol HCl (Tramadol 50 Mg Tablet) 100 mg PO DAILY PRN PRN Reason: Pain Last Admin: 02/12/21 02:47 Dose: 100 mg Documented by: Vancomycin HCl (Vancomycin 1,000 Mg Oral Alessandra (Btl)) 125 mg PO Q6H [facility] Last Admin: 02/13/21 04:39 Dose: 125 mg Documented by: Vitals/I&O/Wt Last Vital Signs Temp 98.2 F 02/12/21 19:48 Pulse 81 02/13/21 16:00 Resp 14 02/13/21 16:00 BP 108/73 02/13/21 11:30 Pulse Ox 96 02/13/21 14:00 02/13/21 02/13/21 02/13/21 06:59 14:59 22:59 Intake Total 1293.93 / 2045.03 1240 / 1240 Output Total 350 / 1000 1999 Balance 943.93 / 1045.03 -760 / -760 Weight last 48 hrs Weight 125.844 kg Weight 120.021 kg Physical Exam Narrative: EXAM NARRATIVE: GEN: Awake, alert and oriented, no acute distress CVS: S1S2 N RS: B/L scattered crackles in lung bases Abd: Soft, nt/nd , bs+ 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 EXT: 2+ pitting edema B/L Urinary Catheter Management^: Weir: Cath Placed During This Visit: yes Reason for Continuing Indwelling Catheter: Accurate Measurement of Urinary Output in Critically Ill Patients Urinary Catheter Date of Insertion: 02/11/21 Urinary Catheter Time of Insertion: 17:32 Data : 02/13/21 03:30 02/13/21 11:53 Micro: Microbiology 02/11/21 18:00 Gram Stain - Final Ascites Fluid Body Fluid Culture - Preliminary 02/11/21 17:30 Urine Culture - Preliminary Urine Catheterized Gram Negative Rods 02/11/21 16:03 Blood Culture - Preliminary Blood NEGATIVE TO DATE 02/11/21 15:20 Blood Culture - Preliminary Blood NEGATIVE TO DATE 02/11/21 07:15 C.difficile Toxin B Gene (PCR) - Final Stool - Stool Aspirate A&P Assessment and plan (1) Hyponatremia: Acute on chronic symptomatic hyponatremia. Multifactorial Patient admitted with serum sodium of 107:s/p 3% saline , Na improved to 116, traget increase of 6-8 per 24 hours period. Per discussion with nephrology, target improvement to 130 No current neurological deficits likely related to diuretics and SAMI Continue CMP check every 6 hours Status: Acute (2) Acute metabolic encephalopathy: Acute metabolic encephalopath related to hyponatremia. Resolved CT head without contrast: Normal Status: Acute (3) Acute renal failure: SAMI likely hepatorenal syndrome Started on albumin and octreotide, added midodrine Cr currently stable renal US The right kidney is smaller than the left. Otherwise unremarkable kidneys and bladder. Status: Acute Qualifiers: Acute renal failure type: with acute tubular necrosis Qualified Code(s): N17.0 - Acute kidney failure with tubular necrosis (4) Atrial fibrillation and flutter: holding Cardizem, last dose at 02/12 at 6: 00AM, currently rate controlled Telemetry Not on anticoagulation, because of prior history of GI bleed Status: Acute (5) Ascites due to alcoholic cirrhosis: Status: Acute (6) CHF (congestive heart failure), NYHA class III: Heart failure with preservation fraction Diuretics on hold due to SAMI Patient with overall fluid overload S/p 2 cycles of PD overnight Status: Acute Qualifiers: Congestive heart failure type: systolic Congestive heart failure chronicity: unspecified Qualified Code(s): I50.20 - Unspecified systolic (congestive) heart failure (7) Decompensation of cirrhosis of liver: Follows with hepatoligist in [place], does not recall name, was referred to [facility] for liver transplant. however he has since relapsed and currently consuming daily alcohol for the past 1.5 years. Will likely benefit from inetrim TIPSS procedure, waiting for callback from patient's mother to obtain name of heaptologist and assess for potential transfer Status: Acute (8) Bradycardia: As above, hold cardizem Status: Acute (9) Hypoglycemia: now resolved Status: Acute (10) Peritonitis: PD cell count 1997, gram stain with GPC in pairs ans clusters pending identification Continue Ceftriaxone, and sytemic vancomycin based on levels Status: Acute (11) C. difficile diarrhea: po vancomycin 125mg q6h, patient refsuing liquid form, pills ordered to outpatient pharmacy, to be re labelled for use here Status: Acute Additional A&P Information CODE STATUS: Full code DVT prophylaxis: SCDs Disposition: ongoing planning - SNF vs home. Unable to arrange HH for patient in spite of multiple attempts on recent last visit. Transfer out of ICU to med/surg Attestations Medical Necessity Statement*: close monitoring for Na, ongoing octreotide infusion for HRS, C diff, iv abx for peritonitis Critical Care Time: The high probability of a clinically significant, sudden or life threatening deterioration of the patient's [renal,hepatic,GI] system(s) required my full and direct attention, intervention and personal management. The critical care time is as shown. 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 difficile diarrhea A04.72
--- NOTE | 2021-02-13 17:15 | PC.NURSE ---
2ML of air was released from TR band at 1300. Bleeding was noted at the site and 2ML of air was placed back in the TR band. Will recheck
[2021-02-13 18:29] LABS: Anion Gap 18.1 (5-19); Blood Urea Nitrogen 23 mg/dL (6-20); Calcium 8.2 mg/dL (8.5-10.5); Carbon Dioxide 21 mmol/L (22-29); Chloride 81 mmol/L (98-107); Glomerular Filtration Rate 32.8 mL/min (90-130); Glucose 84 mg/dL (65-115); Osmolality Calculated 245 mOsm/kg (285-295); Potassium 4.1 mmol/L (3.5-5.1)
[2021-02-13 18:30] LABS: Sodium 116 mmol/L (136-145)
[2021-02-13] MEDS: octreotide 500 MCG in sodium chloride 0.9% (100 ml) 100 ML IV (20:26)
[2021-02-13] MEDS: sodium chloride 3% 500 ML 50 ML IV (20:27)
[2021-02-13] MEDS: VANCOMYCIN 125MG CAPSULE 1 EACH PO (21:11)
--- NOTE | 2021-02-13 21:54 | PC.NURSE ---
Report given to ANUP Valenzuela. Pt transferred to med surg room 260-1 via bed.
[2021-02-14] VITALS (9 sets, daily range): BP systolic 98–127; BP diastolic 54–78; PULSE 74–98; RESP 16–20; TEMP 36.2–37.1; O2SAT 94–98
[2021-02-14 01:13] LABS: Anion Gap 15.8 (5-19); Blood Urea Nitrogen 22 mg/dL (6-20); Calcium 8.2 mg/dL (8.5-10.5); Carbon Dioxide 21 mmol/L (22-29); Chloride 84 mmol/L (98-107); Glomerular Filtration Rate 34.7 mL/min (90-130); Glucose 94 mg/dL (65-115); Osmolality Calculated 247 mOsm/kg (285-295); Potassium 3.8 mmol/L (3.5-5.1)
[2021-02-14 01:15] LABS: Sodium 117 mmol/L (136-145)
--- NOTE | 2021-02-14 05:38 | PC.NURSE ---
Addendum entered by Jenn Lama LPN 02/14/21 05:59: Na Chloride will stop at 0630 not 0530 Original Note: SHIFT SUMMARY Pt came to floor from ICU at 2145 last evening. Is alert and oriented. Only c/o pain was that his feet hurt. Abd is large with ascites present. Drain to right abdomen and had 2 liters fluid drained yesterday per ICU nurse report. IV Octreotide infusing at 5ml/hr rate and had 3% Na Chloride infusing at 50ml/hr until 0530 this am when stopped per Dr Schuler. Weir has drained 800m urine tonight and taking po well.
[2021-02-14 06:21] LABS: Basophils % 0.2 %; Eosinophils # 0.3 10^3/uL (0.0-0.8); Eosinophils % 2.8 %; Hematocrit 23.4 % (42.0-52.0); Hemoglobin 8.1 g/dL (11.7-16.6); Lymphocytes # 0.4 10^3/uL (0.8-4.8); Lymphocytes % 4.3 %; Mean Corpuscular HGB Conc 34.6 g/dL (30.0-36.0); Mean Corpuscular Hemoglobin 34.2 pg (28.0-34.0); Mean Corpuscular Volume 98.7 fL (80-94); Mean Platelet Volume 9.3 fL (7.4-10.4); Monocytes # 0.6 10^3/uL (0.2-0.9); Monocytes % 5.8 %; Neutrophils # 8.28 10^3/uL (1.8-7.7); Neutrophils % 86.1 %; Nucleated Red Blood Cells % 0 %; Platelet Count 110 10^3/cmm (130-400); Red Blood Count 2.37 10^6/uL (4.1-5.3); Red Cell Distribution Width 15.1 % (12.1-15.1); White Blood Count 9.6 10^3/uL (4.0-10.0)
[2021-02-14 06:54] LABS: Vancomycin Random 11.9 ug/mL (20.0-40.0)
[2021-02-14 07:42] LABS: Alanine Aminotransferase < 5 U/L (0-41); Albumin Level 3.7 g/dL (3.5-5.2); Alkaline Phosphatase 66 IU/L (40-130); Anion Gap 17.6 (5-19); Aspartate Amino Transferase 12 U/L (0-40); Blood Urea Nitrogen 20 mg/dL (6-20); Calcium 7.9 mg/dL (8.5-10.5); Carbon Dioxide 19 mmol/L (22-29); Chloride 85 mmol/L (98-107); Globulin 0.9 g/dL (1.3-4.6); Glomerular Filtration Rate 36.9 mL/min (90-130); Glucose 70 mg/dL (65-115); Magnesium 1.9 mg/dL (1.7-2.3); Osmolality Calculated 247 mOsm/kg (285-295); Phosphorus 3.4 mg/dL (2.5-4.5); Potassium 3.6 mmol/L (3.5-5.1); Total Bilirubin 1.4 mg/dL (0.15-1.2); Total Protein 4.6 g/dL (6.6-8.7)
[2021-02-14 07:52] LABS: Sodium 118 mmol/L (136-145)
[2021-02-14] MEDS: fluticasone nasal spray 16gm Btl 1 SPRAY INTRANASAL (08:32)
[2021-02-14] MEDS: lactulose oral liq 20 gm/30 mL UDC 30 GM PO ×2 (08:32→22:34)
[2021-02-14] MEDS: thiamine 100 mg Tablet 250 MG PO (08:33)
[2021-02-14] MEDS: neomycin-poly-bacitracin oint 28 gm 1 APPLIC TOPICAL (08:33)
[2021-02-14] MEDS: VANCOMYCIN 125MG CAPSULE 1 EACH PO ×4 (08:34→22:35)
[2021-02-14] MEDS: pantoprazole DR 40 mg Tablet PO (08:34)
[2021-02-14] MEDS: midodrine 5 mg TABLET PO ×3 (08:34→22:40)
[2021-02-14] MEDS: TRAMadol 50 mg Tablet 100 MG PO (08:35)
--- NOTE | 2021-02-14 08:39 | P.PN_ITS ---
Subjective Subjective: Interval history: hungry, less swollen- though requests drainage of tenkoff catheter, + diarrhea, hungry Medications: Reviewed: Yes Medication Review Details: Current Medications Albuterol Sulfate (Albuterol 8 Gm Mdi) 2 puff INHALATION Q4H PRN PRN Reason: shortness of breath/wheezing Diltiazem HCl (Diltiazem 60 Mg Tablet) 120 mg PO Q8H [facility] Last Admin: 02/12/21 06:13 Dose: 120 mg Documented by: Ergocalciferol (Ergocalciferol (Vitamin D2) 50,000 Unit Capsule) 50,000 unit PO Q7D [facility] Last Admin: 02/12/21 14:11 Dose: 50,000 unit Documented by: Fluticasone Propionate (Fluticasone Nasal [place] 16gm Btl) 1 spray INTRANASAL DAILY [facility] Last Admin: 02/13/21 08:36 Dose: 1 applic Documented by: Folic Acid (Folic Acid 1 Mg Tablet) 1 mg PO DAILY@10 [facility] Last Admin: 02/13/21 09:54 Dose: 1 mg Documented by: Dextrose (D10w) 1,000 mls @ 50 mls/hr IV .Q20H [facility] Last Infusion: 02/14/21 02:28 Dose: Infused Documented by: Ceftriaxone Sodium 1,000 mg/ (Sodium Chloride) 50 mls @ 100 mls/hr IV Q24H [facility]; Protocol Last Infusion: 02/13/21 12:30 Dose: Infused Documented by: Albumin Human (Albumin) 25 gm in 100 mls @ 60 mls/hr IV Q8H [facility] Last Infusion: 02/14/21 02:38 Dose: Infused Documented by: Octreotide Acetate 500 mcg/ (Sodium Chloride) 101 mls @ 5 mls/hr IV .[id number] [facility] Last Admin: 02/13/21 20:26 Dose: 5 mls/hr Documented by: Lactulose (Lactulose Oral Liq 20 Gm/30 Ml Udc) 30 gm PO TID [facility] Last Admin: 02/13/21 20:26 Dose: 30 gm Documented by: Midodrine (Midodrine 5 Mg Tablet) 5 mg PO TID [facility] Last Admin: 02/13/21 20:27 Dose: 5 mg Documented by: Neomycin/Polymyxin/Bacitracin (Nztijikj-Zakf-Xhjevhbwtu Oint 28 Gm) 1 applic TOPICAL BID [facility] Last Admin: 02/13/21 17:49 Dose: 1 applic Documented by: Non-Formulary Medication (Ferrous Sulfate) 27 mg PO DAILY [facility] Non-Formulary Medication (Tiotropium [place] [Spiriva Respimat]) 2 puff INHALATION DAILY [facility] Non-Formulary Medication (Vitamins A,C,J-Nkbi-Jqkffq [Preservision Areds]) 1 cap PO DAILY [facility] Non-Formulary Medication (Vitamin B Complex [B Complex-Vitamin B12]) 1 tab PO DAILY@16 [facility] Last Admin: 02/14/21 07:32 Dose: Not Given Documented by: Vancomycin 125mg (Capsule) 1 each PO QID [facility] Last Admin: 02/13/21 21:11 Dose: 1 each Documented by: Ondansetron HCl (Ondansetron 2 Mg/Ml Sdv 2 Ml) 4 mg IVP Q8H PRN PRN Reason: vomiting, or N/V if npo Last Admin: 02/13/21 01:30 Dose: 4 mg Documented by: Pantoprazole Sodium (Pantoprazole Dr 40 Mg Tablet) 40 mg PO DAILY [facility] Last Admin: 02/13/21 08:34 Dose: 40 mg Documented by: Peritoneal Dialysis Solution (Dianeal Low Ca W/1.5% Dex 2,000 Ml Bag) 1,000 ml INTRAPERIT 6XD [facility] Last Admin: 02/14/21 07:35 Dose: Not Given Documented by: Sodium Chloride (Sodium Chloride 1 Gm Tablet) 2 gm PO TID [facility] Thiamine Mononitrate (Thiamine 100 Mg Tablet) 250 mg PO DAILY [facility] Last Admin: 02/13/21 08:34 Dose: 250 mg Documented by: Tramadol HCl (Tramadol 50 Mg Tablet) 100 mg PO DAILY PRN PRN Reason: Pain Last Admin: 02/13/21 09:53 Dose: 100 mg Documented by: Vitals/I&O/Wt Last Vital Signs Temp 98.8 F 02/14/21 07:23 Pulse 91 02/14/21 07:23 Resp 18 02/14/21 07:23 BP 98/54 02/14/21 07:23 Pulse Ox 97 02/14/21 07:23 02/13/21 02/14/21 02/14/21 22:59 06:59 14:59 Intake Total 931 / 2321 3030 / 5351 Output Total 625 / 2625 800 / 3425 Balance 306 / -304 2230 / 1926 Weight last 48 hrs Weight 126.008 kg Weight 125.844 kg Physical Exam Narrative: EXAM NARRATIVE: swollen, comfortable in bed, NARD VS noted heent- nc/at, eomi, anicteric neck supple lung clear b/l heart irreg irreg abd soft, distended, NT, + rt sided Tenkoff catheter- redness by site ext b/l edema improving, red lesions neuro- a,a, o x 2-3 Urinary Catheter Management^: Weir: Cath Placed During This Visit: yes Reason for Continuing Indwelling Catheter: Other Urinary Catheter Date of Insertion: 02/11/21 Urinary Catheter Time of Insertion: 17:32 Data : 02/14/21 05:52 02/14/21 05:52 Micro: Microbiology 02/11/21 18:00 Gram Stain - Final Ascites Fluid Body Fluid Culture - Preliminary 02/11/21 17:30 Urine Culture - Preliminary Urine Catheterized Gram Negative Rods A&P Additional A&P Information 55 yr old man 1. ALcoholic cirrhosis -per medicine- considering TIPPS or liver eval- pt still drinking etoh 2. acute on chronic hyponatremia- -likely from diuretics, diarrhea, and SAMI -na from 107 to 113- to 115- to 118- attempt to correct 6-8 meq/ l per 24 hrs -cont check chem 7 q 6 hrs -normal tsh -cortisol appropriate at 23 -ur na 10- prerenal -will give 3% saline gently nacl tabs- may need to change to sodium bicarb due to acidosis chronic hyponatremia from liver disease- low ur na in 2019 -AMS improving 3. SAMI- likely HRS vs prerneal vs ATN- hold diuretics -cont iv albumin, octreotide, mididrine, and norepinephrine if needed -renal us- Right kidney: The right kidney is smaller than the left measuring 8.9 cm in length. The echotexture of the kidney is appropriate. The right renal cortex measures 1.4 cm in thickness. No stones. No hydronephrosis. Left kidney: Normal. The left kidney measures 11.4 cm in length. The cortex measures 1.5 cm in thickness. No stones. No hydronephrosis. Urinary bladder: Unremarkable -check urine studies- low ur na 10 -CR improving 4. hyperkalemia- on aldactone and k at home and SAMI -improved off aldactone and potassium. also had 2 cycles of PD -now k is low- gentle repletion 5. chronic a f ib 6, chronic systolic CHF- EF 40-45%- will likely drain Peritoneal fluids today based on BP and blood work- bp excellent now 7. leukocytosis- likely from c diff colitis - also urine cx w/ gram neg rods -also Peritoneal draining catheter appeared dirty- redose iv vanco for level <19 -pd fluid 1997- c/w Peritonitis- vanco and gram neg coverage - dose vanco today- not sure if needs further iv vanco -c diff per medicine/ ID 8. needs to stop etoh use 9. anemia- iron studies- ferritin 983, % sat 71- frim liver disease- no iv iron -likely from liver failure 10. 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
[2021-02-14 10:30] LABS: Glucose Point of Care 125 mg/dL (70-110)
[2021-02-14] MEDS: sodium chloride 3% 500 ML 40 ML IV (10:55)
[2021-02-14] MEDS: cefTRIAXone 1,000 MG in sodium chloride 0.9% (plus) 50 ML 100 MG IV (10:56)
[2021-02-14] MEDS: sodium bicarbonate 650 mg Tablet 1300 MG PO ×3 (10:59→22:35)
[2021-02-14] MEDS: folic acid 1 mg Tablet PO (11:00)
[2021-02-14] MEDS: vancomycin 1,000 MG in sodium chloride 0.9% 250 ML 250 MG IV (12:12)
[2021-02-14 12:24] LABS: Anion Gap 15.6 (5-19); Blood Urea Nitrogen 18 mg/dL (6-20); Calcium 7.7 mg/dL (8.5-10.5); Carbon Dioxide 20 mmol/L (22-29); Chloride 84 mmol/L (98-107); Glomerular Filtration Rate 39.2 mL/min (90-130); Glucose 91 mg/dL (65-115); Osmolality Calculated 243 mOsm/kg (285-295); Potassium 3.6 mmol/L (3.5-5.1)
[2021-02-14 12:28] LABS: Glucose Point of Care 107 mg/dL (70-110)
[2021-02-14 12:38] LABS: Sodium 116 mmol/L (136-145)
[2021-02-14] MEDS: octreotide 500 MCG in sodium chloride 0.9% (100 ml) 100 ML IV (16:32)
[2021-02-14 16:52] LABS: Glucose Point of Care 104 mg/dL (70-110)
[2021-02-14 18:53] LABS: Anion Gap 13.5 (5-19); Blood Urea Nitrogen 16 mg/dL (6-20); Calcium 7.5 mg/dL (8.5-10.5); Carbon Dioxide 21 mmol/L (22-29); Chloride 87 mmol/L (98-107); Glomerular Filtration Rate 44.9 mL/min (90-130); Glucose 92 mg/dL (65-115); Osmolality Calculated 247 mOsm/kg (285-295); Potassium 3.5 mmol/L (3.5-5.1)
[2021-02-14 19:03] LABS: Sodium 118 mmol/L (136-145)
--- NOTE | 2021-02-14 21:12 | PM.PN ---
Subjective Subjective: Interval history: Na improving, no new complaints today , renal function improving , 1 loose BM Medications: Reviewed: Yes Medication Review Details: Current Medications Albuterol Sulfate (Albuterol 8 Gm Mdi) 2 puff INHALATION Q4H PRN PRN Reason: shortness of breath/wheezing Diltiazem HCl (Diltiazem 60 Mg Tablet) 120 mg PO Q8H [facility] Last Admin: 02/12/21 06:13 Dose: 120 mg Documented by: Ergocalciferol (Ergocalciferol (Vitamin D2) 50,000 Unit Capsule) 50,000 unit PO Q7D [facility] Last Admin: 02/12/21 14:11 Dose: 50,000 unit Documented by: Fluticasone Propionate (Fluticasone Nasal [place] 16gm Btl) 1 spray INTRANASAL DAILY [facility] Last Admin: 02/13/21 08:36 Dose: 1 applic Documented by: Folic Acid (Folic Acid 1 Mg Tablet) 1 mg PO DAILY@10 [facility] Last Admin: 02/13/21 09:54 Dose: 1 mg Documented by: Dextrose (D10w) 1,000 mls @ 50 mls/hr IV .Q20H [facility] Last Infusion: 02/14/21 02:28 Dose: Infused Documented by: Ceftriaxone Sodium 1,000 mg/ (Sodium Chloride) 50 mls @ 100 mls/hr IV Q24H [facility]; Protocol Last Infusion: 02/13/21 12:30 Dose: Infused Documented by: Albumin Human (Albumin) 25 gm in 100 mls @ 60 mls/hr IV Q8H [facility] Last Infusion: 02/14/21 02:38 Dose: Infused Documented by: Octreotide Acetate 500 mcg/ (Sodium Chloride) 101 mls @ 5 mls/hr IV .[id number] [facility] Last Admin: 02/13/21 20:26 Dose: 5 mls/hr Documented by: Lactulose (Lactulose Oral Liq 20 Gm/30 Ml Udc) 30 gm PO TID [facility] Last Admin: 02/13/21 20:26 Dose: 30 gm Documented by: Midodrine (Midodrine 5 Mg Tablet) 5 mg PO TID [facility] Last Admin: 02/13/21 20:27 Dose: 5 mg Documented by: Neomycin/Polymyxin/Bacitracin (Lgcovjfj-Tdvw-Kiqtlkvlrc Oint 28 Gm) 1 applic TOPICAL BID [facility] Last Admin: 02/13/21 17:49 Dose: 1 applic Documented by: Non-Formulary Medication (Ferrous Sulfate) 27 mg PO DAILY [facility] Non-Formulary Medication (Tiotropium [place] [Spiriva Respimat]) 2 puff INHALATION DAILY [facility] Non-Formulary Medication (Vitamins A,C,G-Ddxo-Kjrhpq [Preservision Areds]) 1 cap PO DAILY [facility] Non-Formulary Medication (Vitamin B Complex [B Complex-Vitamin B12]) 1 tab PO DAILY@16 [facility] Last Admin: 02/14/21 07:32 Dose: Not Given Documented by: Vancomycin 125mg (Capsule) 1 each PO QID [facility] Last Admin: 02/13/21 21:11 Dose: 1 each Documented by: Ondansetron HCl (Ondansetron 2 Mg/Ml Sdv 2 Ml) 4 mg IVP Q8H PRN PRN Reason: vomiting, or N/V if npo Last Admin: 02/13/21 01:30 Dose: 4 mg Documented by: Pantoprazole Sodium (Pantoprazole Dr 40 Mg Tablet) 40 mg PO DAILY [facility] Last Admin: 02/13/21 08:34 Dose: 40 mg Documented by: Peritoneal Dialysis Solution (Dianeal Low Ca W/1.5% Dex 2,000 Ml Bag) 1,000 ml INTRAPERIT 6XD [facility] Last Admin: 02/14/21 07:35 Dose: Not Given Documented by: Sodium Chloride (Sodium Chloride 1 Gm Tablet) 2 gm PO TID [facility] Thiamine Mononitrate (Thiamine 100 Mg Tablet) 250 mg PO DAILY [facility] Last Admin: 02/13/21 08:34 Dose: 250 mg Documented by: Tramadol HCl (Tramadol 50 Mg Tablet) 100 mg PO DAILY PRN PRN Reason: Pain Last Admin: 02/13/21 09:53 Dose: 100 mg Documented by: Vitals/I&O/Wt Last Vital Signs Temp 97.8 F 02/14/21 15:56 Pulse 98 02/14/21 18:40 Resp 18 02/14/21 18:40 BP 107/64 02/14/21 15:56 Pulse Ox 98 02/14/21 18:40 02/14/21 02/14/21 02/14/21 06:59 14:59 22:59 Intake Total 3030 / 5351 1157.333 / 1157.333 440.5 / 1597.833 Output Total 800 / 3425 1800 / 1800 Balance 2230 / 1926 1157.333 / 1157.333 -1359.5 / -202.167 Weight last 48 hrs Weight 126.008 kg Weight 125.844 kg Physical Exam Narrative: EXAM NARRATIVE: GEN: Awake, alert and oriented, no acute distress CVS: S1S2 N RS: CTA B/L Abd: Soft, nt/nd , 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 Multifactorial Patient admitted with serum sodium of 107:s/p 3% saline , Na improved to 116, traget increase of 6-8 per 24 hours period. Per discussion with nephrology, target improvement to 130 No current neurological deficits likely related to diuretics and SAMI Continue CMP check every 6 hours Status: Acute (2) Acute metabolic encephalopathy: Acute metabolic encephalopath related to hyponatremia. Resolved CT head without contrast: Normal Status: Acute (3) Acute renal failure: SAMI likely hepatorenal syndrome Started on albumin and octreotide + midodrine Cr currently improving renal US The right kidney is smaller than the left. Otherwise unremarkable kidneys and bladder. Status: Acute Qualifiers: Acute renal failure type: with acute tubular necrosis Qualified Code(s): N17.0 - Acute kidney failure with tubular necrosis (4) Atrial fibrillation and flutter: holding Cardizem, last dose at 02/12 at 6: 00AM, currently rate controlled Telemetry Not on anticoagulation, because of prior history of GI bleed Status: Acute (5) Ascites due to alcoholic cirrhosis: Portal HTN+ MELD score 29 - 20% mortality at 3 months Previosuly recommended TIPSS- will contact patient's outpatient GI Dr. King at [facility] to discuss if patient will benefit from early procedure Status: Acute (6) CHF (congestive heart failure), NYHA class III: Heart failure with preservation fraction Diuretics on hold due to SAMI Patient with overall fluid overload S/p 2 cycles of PD overnight Status: Acute Qualifiers: Congestive heart failure type: systolic Congestive heart failure chronicity: unspecified Qualified Code(s): I50.20 - Unspecified systolic (congestive) heart failure (7) Decompensation of cirrhosis of liver: Status: Acute (8) Bradycardia: As above, hold cardizem Status: Acute (9) Hypoglycemia: now resolved Status: Acute (10) Peritonitis: PD cell count 1997, gram stain with GPC in pairs ans clusters pending identification D/c Ceftriaxone, continue systemic vancomycin based on levels, aim 5 day course (02/12-) Status: Acute (11) C. difficile diarrhea: po vancomycin 125mg q6h Status: Acute Additional A&P Information CODE STATUS: Full code DVT prophylaxis: SCDs iv access : PICC left arm placed 02/13 Disposition: ongoing planning - SNF vs home. Unable to arrange HH for patient in spite of multiple attempts on recent last visit. Attestations Medical Necessity Statement*: iv octreotide, hypertonic saline , ongoing, close monitoring of cr , NA Coding Level of Care Code Acute Surgical Rn for Chg Fwd Diagnoses Hyponatremia E87.1 Acute metabolic encephalopathy G93.41 Acute renal failure N17.0 Acute renal failure type: with acute tubular necrosis Atrial fibrillation and flutter I48.91; I48.92 Ascites due to alcoholic cirrhosis K70.31 CHF (congestive heart failure), NYHA class III I50.20 Congestive heart failure type: systolic Congestive heart failure chronicity: unspecified Decompensation of cirrhosis of liver K72.90; K74.60 Bradycardia R00.1 Hypoglycemia E16.2 Peritonitis K65.9 C. difficile diarrhea A04.72
[2021-02-14 21:26] LABS: Glucose Point of Care 105 mg/dL (70-110)
[2021-02-14] MEDS: sodium chloride 3% 500 ML 75 ML IV (22:34)
[2021-02-15] VITALS (10 sets, daily range): BP systolic 103–141; BP diastolic 63–90; PULSE 92–107; RESP 16–23; TEMP 36.7–37.5; O2SAT 96–99
[2021-02-15 01:06] LABS: Anion Gap 13.4 (5-19); Blood Urea Nitrogen 14 mg/dL (6-20); Calcium 7.9 mg/dL (8.5-10.5); Carbon Dioxide 22 mmol/L (22-29); Chloride 93 mmol/L (98-107); Glomerular Filtration Rate 52.4 mL/min (90-130); Glucose 110 mg/dL (65-115); Osmolality Calculated 261 mOsm/kg (285-295); Potassium 3.4 mmol/L (3.5-5.1); Sodium 125 mmol/L (136-145)
[2021-02-15] MEDS: dextrose 5 % 500 ML IV (01:45)
[2021-02-15] MEDS: dextrose 5% 1,000 ML 100 ML IV (02:28)
[2021-02-15 05:17] LABS: Anion Gap 13.5 (5-19); Blood Urea Nitrogen 13 mg/dL (6-20); Calcium 7.9 mg/dL (8.5-10.5); Carbon Dioxide 22 mmol/L (22-29); Chloride 91 mmol/L (98-107); Glomerular Filtration Rate 52.4 mL/min (90-130); Glucose 133 mg/dL (65-115); Osmolality Calculated 258 mOsm/kg (285-295); Potassium 3.5 mmol/L (3.5-5.1); Sodium 123 mmol/L (136-145)
[2021-02-15 05:24] LABS: Vancomycin Random 13.8 ug/mL (20.0-40.0)
[2021-02-15 06:53] LABS: Glucose Point of Care 137 mg/dL (70-110)
--- NOTE | 2021-02-15 07:41 | PC.NURSE ---
MORNING LABS: DR. SHOEMAKER CALLED THIS NURSE WITH ORDER CHANGES TO PATIENT'S FLUIDS. A ONE TIME ORDER FOR D-5W 500 ML BOLUS FOLLOWED BY D-5W 100 ML/HR. THESE WERE PLACED BY PHYSICIAN. THEN, AT 0530 THIS NURSE CALLED WITH THE 0430 AM LABS AND NO CHANGES WERE MADE AT THIS TIME. AT APPROXIMATELY 0615 TELENEPH CALL WAS MADE WITH THE PATIENT. THERE WERE VERBAL ORDERS GIVEN TO THIS NURSE TO D/C CURRENT FLUIDS. THEN ORDERS WERE PLACED TO REMOVED 2 LITERS FROM PATIENT'S HEPATIC DRAIN ONE TIME FOLLOWING THE INFUSION OF ALBUMIN. THIS WAS VERBALLY PASSED ON TO NEXT SHIFT NURSE.
--- NOTE | 2021-02-15 08:32 | P.PN_ITS ---
Subjective Subjective: Interval history: more awake, still swollen w/ ascites. feels better- dec diarrhea Medications: Reviewed: Yes Medication Review Details: Current Medications Albuterol Sulfate (Albuterol 8 Gm Mdi) 2 puff INHALATION Q4H PRN PRN Reason: shortness of breath/wheezing Diltiazem HCl (Diltiazem 60 Mg Tablet) 120 mg PO Q8H [facility] Last Admin: 02/12/21 06:13 Dose: 120 mg Documented by: Ergocalciferol (Ergocalciferol (Vitamin D2) 50,000 Unit Capsule) 50,000 unit PO Q7D [facility] Last Admin: 02/12/21 14:11 Dose: 50,000 unit Documented by: Fluticasone Propionate (Fluticasone Nasal [place] 16gm Btl) 1 spray INTRANASAL DAILY [facility] Last Admin: 02/14/21 08:32 Dose: 1 applic Documented by: Folic Acid (Folic Acid 1 Mg Tablet) 1 mg PO DAILY@10 [facility] Last Admin: 02/14/21 11:00 Dose: 1 mg Documented by: Albumin Human (Albumin) 25 gm in 100 mls @ 60 mls/hr IV Q8H [facility] Last Infusion: 02/15/21 05:54 Dose: Infused Documented by: Lactulose (Lactulose Oral Liq 20 Gm/30 Ml Udc) 30 gm PO TID [facility] Last Admin: 02/14/21 22:34 Dose: 30 gm Documented by: Midodrine (Midodrine 5 Mg Tablet) 5 mg PO TID [facility] Last Admin: 02/14/21 22:40 Dose: 5 mg Documented by: Neomycin/Polymyxin/Bacitracin (Klimmzxl-[place]-Igqxchsdmw Oint 28 Gm) 1 applic TOPICAL BID [facility] Last Admin: 02/14/21 16:32 Dose: Not Given Documented by: Non-Formulary Medication (Ferrous Sulfate) 27 mg PO DAILY [facility] Non-Formulary Medication (Tiotropium [place] [Spiriva Respimat]) 2 puff INHALATION DAILY [facility] Last Admin: 02/14/21 08:45 Dose: Not Given Documented by: Non-Formulary Medication (Vitamins A,C,T-Ibbp-Pluzms [Preservision Areds]) 1 cap PO DAILY [facility] Non-Formulary Medication (Vitamin B Complex [B Complex-Vitamin B12]) 1 tab PO DAILY@16 [facility] Last Admin: 02/14/21 14:56 Dose: Not Given Documented by: Vancomycin 125mg (Capsule) 1 each PO QID [facility] Last Admin: 02/14/21 22:35 Dose: 1 each Documented by: Ondansetron HCl (Ondansetron 2 Mg/Ml Sdv 2 Ml) 4 mg IVP Q8H PRN PRN Reason: vomiting, or N/V if npo Last Admin: 02/13/21 01:30 Dose: 4 mg Documented by: Pantoprazole Sodium (Pantoprazole Dr 40 Mg Tablet) 40 mg PO DAILY [facility] Last Admin: 02/14/21 08:34 Dose: 40 mg Documented by: Peritoneal Dialysis Solution (Dianeal Low Ca W/1.5% Dex 2,000 Ml Bag) 1,000 ml INTRAPERIT 6XD [facility] Last Admin: 02/14/21 14:52 Dose: Not Given Documented by: Thiamine Mononitrate (Thiamine 100 Mg Tablet) 250 mg PO DAILY [facility] Last Admin: 02/14/21 08:33 Dose: 250 mg Documented by: Tramadol HCl (Tramadol 50 Mg Tablet) 100 mg PO DAILY PRN PRN Reason: Pain Last Admin: 02/14/21 08:35 Dose: 100 mg Documented by: Vitals/I&O/Wt Last Vital Signs Temp 98.8 F 02/15/21 08:00 Pulse 92 02/15/21 08:00 Resp 18 02/15/21 08:00 BP 103/63 02/15/21 08:00 Pulse Ox 98 02/15/21 08:00 02/14/21 02/15/21 02/15/21 22:59 06:59 14:59 Intake Total 783.167 / 3717.378 9415 / 3040.500 650.083 / 650.083 Output Total 1800 / 1800 800 / 2600 Balance -1016.833 / 140.500 300 / 440.500 650.083 / 650.083 Weight last 48 hrs Weight 134.762 kg Weight 126.008 kg Physical Exam Narrative: EXAM NARRATIVE: swollen, comfortable in bed, NARD VS noted heent- nc/at, eomi, anicteric neck supple lung clear b/l heart irreg irreg abd soft, distended, NT, + rt sided Tenkoff catheter ext b/l edema improving, red lesions neuro- a,a, o x 3 Urinary Catheter Management^: Weir: Cath Placed During This Visit: yes Reason for Continuing Indwelling Catheter: Other Urinary Catheter Date of Insertion: 02/11/21 Urinary Catheter Time of Insertion: 17:32 Data : 02/14/21 05:52 02/15/21 04:45 Micro: Microbiology 02/11/21 18:00 Gram Stain - Final Ascites Fluid Body Fluid Culture - Preliminary 02/11/21 17:30 Urine Culture - Final Urine Catheterized Escherichia coli A&P Additional A&P Information 55 yr old man 1. ALcoholic cirrhosis -per medicine- considering TIPPS or liver eval- pt still drinking etoh 2. acute on chronic hyponatremia- -likely from diuretics, diarrhea, and SAMI -na from 107 to 113- to 115- to 118 to 125 w/ 3% saline now 123- attempt to correct 6-8 meq/ l per 24 hrs -small correction in sodium today -cont check chem 7 q 6 hrs -normal tsh -cortisol appropriate at 23 -ur na 10- prerenal -bicarb improved off of nacl tabs -can use sodium bicarb if needed- due to acidosis chronic hyponatremia from liver disease- and effective intravascular volume depletion low ur na in 2019 -AMS improved 3. SAMI- likely HRS vs prerneal -cont iv albumin, will hold octreotide -cont mididrine -cr improving -renal us- Right kidney: The right kidney is smaller than the left measuring 8.9 cm in length. The echotexture of the kidney is appropriate. The right renal cortex measures 1.4 cm in thickness. No stones. No hydronephrosis. Left kidney: Normal. The left kidney measures 11.4 cm in length. The cortex measures 1.5 cm in thickness. No stones. No hydronephrosis. Urinary bladder: Unremarkable urine studies- low ur na 10 4. hyperkalemia- on aldactone and k at home and SAMI -improved off aldactone and potassium. also had 2 cycles of PD -now k is low- gentle repletion 5. chronic a f ib 6, chronic systolic CHF- EF 40-45%- will likely drain Peritoneal fluids today based on BP and blood work- bp excellent now 7. leukocytosis- likely from c diff colitis - also urine cx w/ gram neg rods -also Peritoneal draining catheter appeared dirty- redose iv vanco for level <19 -pd fluid 1997- c/w Peritonitis- vanco and gram neg coverage - dose vanco today- not sure if needs further iv vanco -c diff per medicine/ ID 8. needs to stop etoh use -can tap 1- 2 l ascites today w/ albumin 9. anemia- iron studies- ferritin 983, % sat 71- frim liver disease- no iv iron -likely from liver failure 10. DM- hypoglycemia improved PTH 30 discussed w/ pt and rn seen w/ RN- telehealth visit Attestations Medical Necessity Statement*: improving sami and hyponatremia Time Spent in Patient Care: 16 - 35 minutes Coding Level of Care Code Acute Aging Room Operator for Chg Yocasta
[2021-02-15] MEDS: thiamine 100 mg Tablet 250 MG PO (09:02)
[2021-02-15] MEDS: folic acid 1 mg Tablet PO (09:03)
[2021-02-15] MEDS: midodrine 5 mg TABLET PO ×3 (09:03→20:11)
[2021-02-15] MEDS: fluticasone nasal spray 16gm Btl 1 SPRAY INTRANASAL (09:03)
[2021-02-15] MEDS: VANCOMYCIN 125MG CAPSULE 1 EACH PO ×4 (09:03→20:13)
[2021-02-15] MEDS: pantoprazole DR 40 mg Tablet PO ×2 (09:03→17:41)
[2021-02-15 10:27] LABS: Basophils % 0.4 %; Eosinophils # 0.2 10^3/uL (0.0-0.8); Eosinophils % 3.4 %; Hematocrit 23.2 % (42.0-52.0); Hemoglobin 7.9 g/dL (11.7-16.6); Lymphocytes # 0.3 10^3/uL (0.8-4.8); Lymphocytes % 4.3 %; Mean Corpuscular HGB Conc 34.1 g/dL (30.0-36.0); Mean Corpuscular Hemoglobin 33.9 pg (28.0-34.0); Mean Corpuscular Volume 99.6 fL (80-94); Mean Platelet Volume 9.5 fL (7.4-10.4); Monocytes # 0.6 10^3/uL (0.2-0.9); Monocytes % 9.1 %; Neutrophils # 5.59 10^3/uL (1.8-7.7); Neutrophils % 82.2 %; Nucleated Red Blood Cells % 0 %; Platelet Count 101 10^3/cmm (130-400); Red Blood Count 2.33 10^6/uL (4.1-5.3); Red Cell Distribution Width 15.2 % (12.1-15.1); White Blood Count 6.8 10^3/uL (4.0-10.0)
[2021-02-15 10:48] LABS: Anion Gap 14.4 (5-19); Blood Urea Nitrogen 11 mg/dL (6-20); Calcium 7.5 mg/dL (8.5-10.5); Carbon Dioxide 20 mmol/L (22-29); Chloride 90 mmol/L (98-107); Glomerular Filtration Rate 69.2 mL/min (90-130); Glucose 121 mg/dL (65-115); Osmolality Calculated 253 mOsm/kg (285-295); Potassium 3.4 mmol/L (3.5-5.1); Sodium 121 mmol/L (136-145)
[2021-02-15] MEDS: potassium chloride ER 20 mEq Tablet 40 MEQ PO ×2 (11:55→20:11)
[2021-02-15 12:07] LABS: Glucose Point of Care 137 mg/dL (70-110)
[2021-02-15] MEDS: sodium chloride 3% 500 ML 40 ML IV (12:27)
--- NOTE | 2021-02-15 13:32 | PC.NURSE ---
Two liters pulled from drain. Fluid sent per orders. Changed central line dressing.
[2021-02-15 14:27] LABS: Mononuclear #, Pertinoneal Fl 0.105 10^3/uL; Polynuclear # Cells, Perit 0.064 10^3/uL
[2021-02-15 14:59] LABS: Appearance, Peritoneal Fluid Clear (Clear); Color, Peritoneal Fluid Yellow (Pale Yellow); Pathology Referral Yes
[2021-02-15 15:00] LABS: RBC Pertioneal Fluid 0 10^3/uL; WBC Peritoneal Fluid 169 /uL
[2021-02-15] MEDS: dilTIAZem 30 mg Tablet PO ×2 (16:32→22:08)
[2021-02-15] MEDS: sodium bicarbonate 650 mg Tablet PO ×2 (16:32→20:10)
[2021-02-15 17:08] LABS: Glucose Point of Care 134 mg/dL (70-110)
--- NOTE | 2021-02-15 17:44 | P.PN_ITS ---
Subjective Subjective: Interval history: no new complaints, NA 121. Hb drifting down to 7.9 Medications: Reviewed: Yes Medication Review Details: Current Medications Albuterol Sulfate (Albuterol 8 Gm Mdi) 2 puff INHALATION Q4H PRN PRN Reason: shortness of breath/wheezing Diltiazem HCl (Diltiazem 60 Mg Tablet) 120 mg PO Q8H [facility] Last Admin: 02/12/21 06:13 Dose: 120 mg Documented by: Ergocalciferol (Ergocalciferol (Vitamin D2) 50,000 Unit Capsule) 50,000 unit PO Q7D [facility] Last Admin: 02/12/21 14:11 Dose: 50,000 unit Documented by: Fluticasone Propionate (Fluticasone Nasal [place] 16gm Btl) 1 spray INTRANASAL DAILY [facility] Last Admin: 02/14/21 08:32 Dose: 1 applic Documented by: Folic Acid (Folic Acid 1 Mg Tablet) 1 mg PO DAILY@10 [facility] Last Admin: 02/14/21 11:00 Dose: 1 mg Documented by: Albumin Human (Albumin) 25 gm in 100 mls @ 60 mls/hr IV Q8H [facility] Last Infusion: 02/15/21 05:54 Dose: Infused Documented by: Lactulose (Lactulose Oral Liq 20 Gm/30 Ml Udc) 30 gm PO TID [facility] Last Admin: 02/14/21 22:34 Dose: 30 gm Documented by: Midodrine (Midodrine 5 Mg Tablet) 5 mg PO TID [facility] Last Admin: 02/14/21 22:40 Dose: 5 mg Documented by: Neomycin/Polymyxin/Bacitracin (Gvqmbqpv-Vadp-Xttdjksnbh Oint 28 Gm) 1 applic TOPICAL BID [facility] Last Admin: 02/14/21 16:32 Dose: Not Given Documented by: Non-Formulary Medication (Ferrous Sulfate) 27 mg PO DAILY [facility] Non-Formulary Medication (Tiotropium [place] [Spiriva Respimat]) 2 puff INHALATION DAILY [facility] Last Admin: 02/14/21 08:45 Dose: Not Given Documented by: Non-Formulary Medication (Vitamins A,C,G-Nxnh-Hzczfa [Preservision Areds]) 1 cap PO DAILY [facility] Non-Formulary Medication (Vitamin B Complex [B Complex-Vitamin B12]) 1 tab PO DAILY@16 [facility] Last Admin: 02/14/21 14:56 Dose: Not Given Documented by: Vancomycin 125mg (Capsule) 1 each PO QID [facility] Last Admin: 02/14/21 22:35 Dose: 1 each Documented by: Ondansetron HCl (Ondansetron 2 Mg/Ml Sdv 2 Ml) 4 mg IVP Q8H PRN PRN Reason: vomiting, or N/V if npo Last Admin: 02/13/21 01:30 Dose: 4 mg Documented by: Pantoprazole Sodium (Pantoprazole Dr 40 Mg Tablet) 40 mg PO DAILY [facility] Last Admin: 02/14/21 08:34 Dose: 40 mg Documented by: Peritoneal Dialysis Solution (Dianeal Low Ca W/1.5% Dex 2,000 Ml Bag) 1,000 ml INTRAPERIT 6XD [facility] Last Admin: 02/14/21 14:52 Dose: Not Given Documented by: Thiamine Mononitrate (Thiamine 100 Mg Tablet) 250 mg PO DAILY [facility] Last Admin: 02/14/21 08:33 Dose: 250 mg Documented by: Tramadol HCl (Tramadol 50 Mg Tablet) 100 mg PO DAILY PRN PRN Reason: Pain Last Admin: 02/14/21 08:35 Dose: 100 mg Documented by: Vitals/I&O/Wt Last Vital Signs Temp 98.9 F 02/15/21 16:00 Pulse 107 H 02/15/21 16:00 Resp 18 02/15/21 16:00 BP 126/70 02/15/21 16:00 Pulse Ox 98 02/15/21 16:00 02/15/21 02/15/21 02/15/21 06:59 14:59 22:59 Intake Total 1100 / 3040.500 1350.083 / 1350.083 Output Total 800 / 2600 1999 / 1999 Balance 300 / 440.500 -649.917 / -649.917 Weight last 48 hrs Weight 134.762 kg Weight 126.008 kg Physical Exam Narrative: EXAM NARRATIVE: GEN: Awake, alert and oriented, no acute distress CVS: S1S2 N RS: CTA B/L Abd: Soft, nt/nd , bs+ MANAGER MARKET: no focal neuro deficits EXT: improving LE edema today Urinary Catheter Management^: Weir: Cath Placed During This Visit: yes Reason for Continuing Indwelling Catheter: Other Urinary Catheter Date of Insertion: 02/11/21 Urinary Catheter Time of Insertion: 17:32 Data : 02/15/21 10:08 02/15/21 10:08 Micro: Microbiology 02/11/21 18:00 Gram Stain - Final Ascites Fluid Body Fluid Culture - Preliminary Enterococcus species A&P Assessment and plan (1) Hyponatremia: Acute on chronic symptomatic hyponatremia. Multifactorial Patient admitted with serum sodium of 107:s/p 3% saline , Na improved to 116, traget increase of 6-8 per 24 hours period. Per discussion with nephrology, target improvement to 130 No current neurological deficits likely related to diuretics and SAMI Continue CMP check every 6 hours Status: Acute (2) Acute metabolic encephalopathy: Acute metabolic encephalopath related to hyponatremia. Resolved CT head without contrast: Normal Status: Acute (3) Acute renal failure: SAMI likely hepatorenal syndrome Started on albumin and octreotide + midodrine Cr currently improving renal US The right kidney is smaller than the left. Otherwise unremarkable kidneys and bladder. Status: Acute Qualifiers: Acute renal failure type: with acute tubular necrosis Qualified Code(s): N17.0 - Acute kidney failure with tubular necrosis (4) Atrial fibrillation and flutter: holding Cardizem, last dose at 02/12 at 6: 00AM, currently rate controlled Telemetry Not on anticoagulation, because of prior history of GI bleed Status: Acute (5) Ascites due to alcoholic cirrhosis: Portal HTN+ MELD score 29 - 20% mortality at 3 months Previosuly recommended TIPSS- will contact patient's outpatient GI Dr. King at [facility] to discuss if patient will benefit from early procedure Status: Acute (6) CHF (congestive heart failure), NYHA class III: Heart failure with preservation fraction Diuretics on hold due to SAMI Patient with overall fluid overload S/p 2 cycles of PD overnight Status: Acute Qualifiers: Congestive heart failure type: systolic Congestive heart failure chronicity: unspecified Qualified Code(s): I50.20 - Unspecified systolic (congestive) heart failure (7) Decompensation of cirrhosis of liver: Status: Acute (8) Bradycardia: As above, hold cardizem Status: Acute (9) Hypoglycemia: now resolved Status: Acute (10) Peritonitis: PD cell count 1997, gram stain with GPC in pairs ans clusters pending identification D/c Ceftriaxone, continue systemic vancomycin based on levels, aim 5 day course (02/12-) Status: Acute (11) C. difficile diarrhea: po vancomycin 125mg q6h Status: Acute Additional A&P Information CODE STATUS: Full code DVT prophylaxis: SCDs iv access : PICC left arm placed 02/13 Disposition: ongoing planning - SNF vs home. Unable to arrange HH for patient in spite of multiple attempts on recent last visit. Call placed to patient;s outpatient GI Dr. King to discuss feasibility of TIPSS on current admission Attestations Medical Necessity Statement*: needs close monitoring of Na, Cr, HRS Coding Level of Care Code Acute Lottery Clerk for Chg Fwd Diagnoses Hyponatremia E87.1 Acute metabolic encephalopathy G93.41 Acute renal failure N17.0 Acute renal failure type: with acute tubular necrosis Atrial fibrillation and flutter I48.91; I48.92 Ascites due to alcoholic cirrhosis K70.31 CHF (congestive heart failure), NYHA class III I50.20 Congestive heart failure type: systolic Congestive heart failure chronicity: unspecified Decompensation of cirrhosis of liver K72.90; K74.60 Bradycardia R00.1 Hypoglycemia E16.2 Peritonitis K65.9 C. difficile diarrhea A04.72
[2021-02-15 17:51] LABS: Anion Gap 13.4 (5-19); Blood Urea Nitrogen 10 mg/dL (6-20); Calcium 7.8 mg/dL (8.5-10.5); Carbon Dioxide 20 mmol/L (22-29); Chloride 94 mmol/L (98-107); Glomerular Filtration Rate 69.2 mL/min (90-130); Glucose 112 mg/dL (65-115); Osmolality Calculated 258 mOsm/kg (285-295); Potassium 3.4 mmol/L (3.5-5.1); Sodium 124 mmol/L (136-145)
[2021-02-15] MEDS: sodium chloride 3% 500 ML 50 ML IV (20:11)
[2021-02-15] MEDS: TRAMadol 50 mg Tablet 100 MG PO (20:11)
[2021-02-15 21:16] LABS: Glucose Point of Care 139 mg/dL (70-110)
[2021-02-16] VITALS (9 sets, daily range): BP systolic 103–152; BP diastolic 64–88; PULSE 72–110; RESP 16–21; TEMP 36.4–36.9; O2SAT 92–99
[2021-02-16 01:14] LABS: Anion Gap 12.6 (5-19); Blood Urea Nitrogen 8 mg/dL (6-20); Calcium 7.6 mg/dL (8.5-10.5); Carbon Dioxide 21 mmol/L (22-29); Chloride 95 mmol/L (98-107); Glomerular Filtration Rate 69.2 mL/min (90-130); Glucose 128 mg/dL (65-115); Osmolality Calculated 260 mOsm/kg (285-295); Potassium 3.6 mmol/L (3.5-5.1); Sodium 125 mmol/L (136-145)
[2021-02-16] MEDS: dilTIAZem 30 mg Tablet PO ×4 (04:21→23:20)
[2021-02-16 06:39] LABS: Glucose Point of Care 123 mg/dL (70-110)
[2021-02-16] MEDS: thiamine 100 mg Tablet 250 MG PO (09:03)
[2021-02-16] MEDS: midodrine 5 mg TABLET PO ×3 (09:04→23:20)
[2021-02-16] MEDS: pantoprazole DR 40 mg Tablet PO ×2 (09:04→17:32)
[2021-02-16] MEDS: folic acid 1 mg Tablet PO (09:04)
[2021-02-16] MEDS: sodium bicarbonate 650 mg Tablet PO (09:04)
[2021-02-16] MEDS: neomycin-poly-bacitracin oint 28 gm 1 APPLIC TOPICAL ×2 (09:05→17:32)
[2021-02-16] MEDS: fluticasone nasal spray 16gm Btl 1 SPRAY INTRANASAL (09:07)
[2021-02-16] MEDS: VANCOMYCIN 125MG CAPSULE 1 EACH PO ×4 (09:10→23:20)
[2021-02-16 11:15] LABS: Glucose Point of Care 122 mg/dL (70-110)
--- NOTE | 2021-02-16 11:16 | P.PN_ITS ---
Subjective Subjective: Interval history: Mr. Soto feels well today. He is having a lot of diarrhea from the lactulose that we are giving to him. No other specific complaints, he still feels a little bit weak and is having some trouble mobilizing, however, he is otherwise quite close to baseline. He still has some mild anasarca, ascites remains mild and well controlled. No other confusion at this time. Sodium level noted to be 125, he is adhering to a low water intake. Vitals/I&O/Wt Last Vital Signs Temp 98.1 F 02/16/21 08:00 Pulse 85 02/16/21 08:00 Resp 17 02/16/21 08:00 BP 103/64 02/16/21 08:00 Pulse Ox 99 02/16/21 08:00 02/15/21 02/16/21 02/16/21 22:59 06:59 14:59 Intake Total 1400 / 2750.083 1600 / 4350.083 240 / 240 Output Total 1000 / 3000 200 / 3200 Balance 400 / -206.028 4377 / 1150.083 240 / 240 Weight last 48 hrs Weight 134.762 kg Physical Exam Narrative: EXAM NARRATIVE: Constitutional: Awake, comfortable HEENT: Wet mucosa, no jvp, non icteric Lungs: Bilaterally clear without discernible wheeze, rales in all lung zones CVS: S1 S2, no murmurs Abdo: Soft, BS ok Ext 4: 1+ edema, peripheral perfusion with no cyanosis Neurological: Grossly non-focal Urinary Catheter Management^: Weir: Cath Placed During This Visit: yes Reason for Continuing Indwelling Catheter: Assist Healing of Perineal & Sacral Wounds- Incontinent Patients Urinary Catheter Date of Insertion: 02/11/21 Urinary Catheter Time of Insertion: 17:32 Data : 02/15/21 10:08 02/16/21 00:50 Micro: Microbiology 02/11/21 18:00 Gram Stain - Final Ascites Fluid Body Fluid Culture - Preliminary Enterococcus species A&P Additional A&P Information 1. Hypervolemic Hyponatremia Secondary to advanced liver disease. Continue fluid restriction, continue mido drine, today I will resume his Lasix and spironolactone that he takes as an outpatient. 2. Hepatic encephalopathy and confusion Ammonia levels on the lower side at the time of hospitalization, hence, his confusion was likely a manifestation of the hyponatremia. He does not want to take his lactulose is causing diarrhea and so he may be a candidate for rifaximin. 3. Advanced liver disease Follows with Dr. King as an outpatient in [place], I have asked him to follow with him expeditiously following discharge. He had questions about TIPS procedure, I asked him to defer to Dr. King. I encourage sobriety and enrollment in a liver transplant program to monitor him to monitor his alcohol intake. 4. Disposition He is okay for discharge from my own perspective, during his hospitalization we will continue to follow him. Delfino Hebert MD Nephrology [phone] Patient seen and examined via telemedicine, with the assistance of the bedside RN > 25 min spent in evaluation and mgmt of patient Attestations Medical Necessity Statement*: Eval for hypoNa Coding Level of Care Code Acute Mass Communications Instructor for Tay Rust
[2021-02-16] MEDS: FUROsemide 20 mg Tablet 60 MG PO (11:55)
[2021-02-16] MEDS: spironolactone 25 mg Tablet 100 MG PO (11:55)
[2021-02-16] MEDS: TRAMadol 50 mg Tablet 100 MG PO (14:11)
[2021-02-16 17:14] LABS: Glucose Point of Care 119 mg/dL (70-110)
[2021-02-16] MEDS: potassium chloride ER 20 mEq Tablet PO (17:32)
--- NOTE | 2021-02-16 19:07 | PM.PN ---
Subjective Subjective: Interval history: No new complaints today, feels better, cr normalized, NA continue sto improve, stopped midodrine, octreotide and albumin Medications: Reviewed: Yes Medication Review Details: Current Medications Albuterol Sulfate (Albuterol 8 Gm Mdi) 2 puff INHALATION Q4H PRN PRN Reason: shortness of breath/wheezing Diltiazem HCl (Diltiazem 60 Mg Tablet) 120 mg PO Q8H [facility] Last Admin: 02/12/21 06:13 Dose: 120 mg Documented by: Ergocalciferol (Ergocalciferol (Vitamin D2) 50,000 Unit Capsule) 50,000 unit PO Q7D [facility] Last Admin: 02/12/21 14:11 Dose: 50,000 unit Documented by: Fluticasone Propionate (Fluticasone Nasal [place] 16gm Btl) 1 spray INTRANASAL DAILY [facility] Last Admin: 02/14/21 08:32 Dose: 1 applic Documented by: Folic Acid (Folic Acid 1 Mg Tablet) 1 mg PO DAILY@10 [facility] Last Admin: 02/14/21 11:00 Dose: 1 mg Documented by: Albumin Human (Albumin) 25 gm in 100 mls @ 60 mls/hr IV Q8H [facility] Last Infusion: 02/15/21 05:54 Dose: Infused Documented by: Lactulose (Lactulose Oral Liq 20 Gm/30 Ml Udc) 30 gm PO TID [facility] Last Admin: 02/14/21 22:34 Dose: 30 gm Documented by: Midodrine (Midodrine 5 Mg Tablet) 5 mg PO TID [facility] Last Admin: 02/14/21 22:40 Dose: 5 mg Documented by: Neomycin/Polymyxin/Bacitracin (Evkinlbe-Bjaz-Hzhlzzdpvx Oint 28 Gm) 1 applic TOPICAL BID [facility] Last Admin: 02/14/21 16:32 Dose: Not Given Documented by: Non-Formulary Medication (Ferrous Sulfate) 27 mg PO DAILY [facility] Non-Formulary Medication (Tiotropium [place] [Spiriva Respimat]) 2 puff INHALATION DAILY [facility] Last Admin: 02/14/21 08:45 Dose: Not Given Documented by: Non-Formulary Medication (Vitamins A,C,E-Zkhv-Gyccuc [Preservision Areds]) 1 cap PO DAILY [facility] Non-Formulary Medication (Vitamin B Complex [B Complex-Vitamin B12]) 1 tab PO DAILY@16 [facility] Last Admin: 02/14/21 14:56 Dose: Not Given Documented by: Vancomycin 125mg (Capsule) 1 each PO QID [facility] Last Admin: 02/14/21 22:35 Dose: 1 each Documented by: Ondansetron HCl (Ondansetron 2 Mg/Ml Sdv 2 Ml) 4 mg IVP Q8H PRN PRN Reason: vomiting, or N/V if npo Last Admin: 02/13/21 01:30 Dose: 4 mg Documented by: Pantoprazole Sodium (Pantoprazole Dr 40 Mg Tablet) 40 mg PO DAILY [facility] Last Admin: 02/14/21 08:34 Dose: 40 mg Documented by: Peritoneal Dialysis Solution (Dianeal Low Ca W/1.5% Dex 2,000 Ml Bag) 1,000 ml INTRAPERIT 6XD [facility] Last Admin: 02/14/21 14:52 Dose: Not Given Documented by: Thiamine Mononitrate (Thiamine 100 Mg Tablet) 250 mg PO DAILY [facility] Last Admin: 02/14/21 08:33 Dose: 250 mg Documented by: Tramadol HCl (Tramadol 50 Mg Tablet) 100 mg PO DAILY PRN PRN Reason: Pain Last Admin: 02/14/21 08:35 Dose: 100 mg Documented by: Vitals/I&O/Wt Last Vital Signs Temp 98.3 F 02/16/21 16:00 Pulse 98 02/16/21 18:41 Resp 18 02/16/21 18:41 BP 105/68 02/16/21 16:00 Pulse Ox 96 02/16/21 18:41 02/16/21 02/16/21 02/16/21 06:59 14:59 22:59 Intake Total 1600 / 4350.083 480 / 480 580 / 1060 Output Total 200 / 3200 700 / 700 1450 / 2150 Balance 1400 / 1150.083 -220 / -220 -870 / -1090 Weight last 48 hrs Weight 125.554 kg Weight 134.762 kg Physical Exam Narrative: EXAM NARRATIVE: GEN: Awake, alert and oriented, no acute distress CVS: S1S2 N RS: CTA B/L Abd: Soft, nt/nd , bs+ TURNTABLE WORKER: no focal neuro deficits EXT: improving LE edema today Urinary Catheter Management^: Weir: Cath Placed During This Visit: yes Reason for Continuing Indwelling Catheter: Required Immobilization for Trauma or Surgery or Anesthesia Urinary Catheter Date of Insertion: 02/11/21 Urinary Catheter Time of Insertion: 17:32 Data : 02/15/21 10:08 02/16/21 00:50 Micro: Microbiology 02/11/21 16:03 Blood Culture - Final Blood NO GROWTH AFTER 5 DAYS 02/11/21 15:20 Blood Culture - Final Blood NO GROWTH AFTER 5 DAYS 02/11/21 18:00 Gram Stain - Final Ascites Fluid Body Fluid Culture - Final Enterococcus faecalis A&P Assessment and plan (1) Hyponatremia: Acute on chronic symptomatic hyponatremia. Multifactorial Patient admitted with serum sodium of 107:s/p 3% saline , Na improved to 125 now No current neurological deficits likely related to diuretics and SAMI Currently improving Status: Acute (2) Acute metabolic encephalopathy: Acute metabolic encephalopath related to hyponatremia. Resolved CT head without contrast: Normal Status: Acute (3) Acute renal failure: SAMI likely hepatorenal syndrome s/p albumin and octreotide + midodrine Cr now back at baseline renal US The right kidney is smaller than the left. Otherwise unremarkable kidneys and bladder. Status: Acute Qualifiers: Acute renal failure type: with acute tubular necrosis Qualified Code(s): N17.0 - Acute kidney failure with tubular necrosis (4) Atrial fibrillation and flutter: resumed cardizem Status: Acute (5) Ascites due to alcoholic cirrhosis: Portal HTN+ MELD score 29 - 20% mortality at 3 months Previosuly recommended TIPSS- will contact patient's outpatient GI Dr. King at [facility] to discuss if patient will benefit from early procedure Status: Acute (6) CHF (congestive heart failure), NYHA class III: Heart failure with preservation fraction Diuretics on hold due to SAMI Patient with overall fluid overload S/p 2 cycles of PD during course of admission Status: Acute Qualifiers: Congestive heart failure chronicity: unspecified Congestive heart failure type: systolic Qualified Code(s): I50.20 - Unspecified systolic (congestive) heart failure (7) Decompensation of cirrhosis of liver: Status: Acute (8) Bradycardia: now resolved, cardizem resumed Status: Acute (9) Hypoglycemia: now resolved Status: Acute (10) Peritonitis: PD cell count 1997, gram stain with GPC in pairs ans clusters identified as E.fecalis s/p systemic vancomycin based on levels, 5 day course, cell count down to 169 Status: Acute (11) C. difficile diarrhea: po vancomycin 125mg q6h Status: Acute Additional A&P Information CODE STATUS: Full code DVT prophylaxis: SCDs iv access : PICC left arm placed 02/13 Disposition: ongoing planning - declined by multiple SNF, attempting home home arrangements Call placed to patient;s outpatient GI Dr. King to discuss feasibility of TIPSS on current admission, left messages with office, awaiting call back Attestations Medical Necessity Statement*: hyponatremia, na monitoring, upcoming discharge likely in the next 24-48 hrs Coding Level of Care Code Acute Home Furnishings Sales Representative for g Fwd Diagnoses Hyponatremia E87.1 Acute metabolic encephalopathy G93.41 Acute renal failure N17.0 Acute renal failure type: with acute tubular necrosis Atrial fibrillation and flutter I48.91; I48.92 Ascites due to alcoholic cirrhosis K70.31 CHF (congestive heart failure), NYHA class III I50.20 Congestive heart failure chronicity: unspecified Congestive heart failure type: systolic Decompensation of cirrhosis of liver K72.90; K74.60 Bradycardia R00.1 Hypoglycemia E16.2 Peritonitis K65.9 C. difficile diarrhea A04.72
[2021-02-16 21:52] LABS: Glucose Point of Care 152 mg/dL (70-110)
[2021-02-16] MEDS: lactulose oral liq 20 gm/30 mL UDC 15 GM PO (23:21)
[2021-02-17] VITALS (7 sets, daily range): BP systolic 100–121; BP diastolic 62–76; PULSE 76–99; RESP 16–18; TEMP 35.7–37.2; O2SAT 95–98
[2021-02-17] MEDS: dilTIAZem 30 mg Tablet PO ×3 (03:25→14:59)
[2021-02-17 06:24] LABS: Glucose Point of Care 105 mg/dL (70-110)
[2021-02-17] MEDS: neomycin-poly-bacitracin oint 28 gm 1 APPLIC TOPICAL (09:25)
[2021-02-17] MEDS: VANCOMYCIN 125MG CAPSULE 1 EACH PO ×2 (09:31→14:57)
[2021-02-17] MEDS: potassium chloride ER 20 mEq Tablet PO (09:31)
[2021-02-17] MEDS: pantoprazole DR 40 mg Tablet PO (09:32)
[2021-02-17] MEDS: FUROsemide 20 mg Tablet 60 MG PO (09:32)
[2021-02-17] MEDS: spironolactone 25 mg Tablet 100 MG PO (09:32)
[2021-02-17] MEDS: midodrine 5 mg TABLET PO ×2 (09:32→14:58)
[2021-02-17] MEDS: thiamine 100 mg Tablet 250 MG PO (09:33)
[2021-02-17] MEDS: fluticasone nasal spray 16gm Btl 1 SPRAY INTRANASAL (09:38)
[2021-02-17] MEDS: lactulose oral liq 20 gm/30 mL UDC 15 GM PO (09:39)
--- NOTE | 2021-02-17 10:20 | P.PN_ITS ---
Subjective Subjective: Interval history: Mr. Soto feels well today with no acute new issues. Diuretics were started this morning, and he is yet to have a robust diuresis in response to these. Minimal extremity edema, his belly feels nice and soft, no pain. Still having some loose bowel movements and does not like to take his lactulose. Otherwise no acute new issues. Medications: Reviewed: Yes Medication Review Details: Current Medications Albuterol Sulfate (Albuterol 8 Gm Mdi) 2 puff INHALATION Q4H PRN PRN Reason: shortness of breath/wheezing Diltiazem HCl (Diltiazem 60 Mg Tablet) 120 mg PO Q8H REPLACED BY [facility] Last Admin: 02/12/21 06:13 Dose: 120 mg Documented by: Ergocalciferol (Ergocalciferol (Vitamin D2) 50,000 Unit Capsule) 50,000 unit PO Q7D [facility]PLACED BY [facility] Last Admin: 02/12/21 14:11 Dose: 50,000 unit Documented by: Fluticasone Propionate (Fluticasone Nasal [place] 16gm Btl) 1 spray INTRANASAL DAILY [facility]PLAC[facility] Last Admin: 02/14/21 08:32 Dose: 1 applic Documented by: Folic Acid (Folic Acid 1 Mg Tablet) 1 mg PO DAILY@10 [facility]PLACED [facility] Last Admin: 02/14/21 11:00 Dose: 1 mg Documented by: Albumin Human (Albumin) 25 gm in 100 mls @ 60 mls/hr IV Q8H REPLACED BY [facility] Last Infusion: 02/15/21 05:54 Dose: Infused Documented by: Lactulose (Lactulose Oral Liq 20 Gm/30 Ml Udc) 30 gm PO TID REPLACED BY [facility] Last Admin: 02/14/21 22:34 Dose: 30 gm Documented by: Midodrine (Midodrine 5 Mg Tablet) 5 mg PO TID REPLACED BY [facility] Last Admin: 02/14/21 22:40 Dose: 5 mg Documented by: Neomycin/Polymyxin/Bacitracin (Aseqwhcu-Rrcr-Prpkxomzyx Oint 28 Gm) 1 applic TOPICAL BID REPLACED BY [facility] Last Admin: 02/14/21 16:32 Dose: Not Given Documented by: Non-Formulary Medication (Ferrous Sulfate) 27 mg PO DAILY REPLACED BY [facility] Non-Formulary Medication (Tiotropium [place] [Spiriva Respimat]) 2 puff INHALATION DAILY REPLACED BY [facility] Last Admin: 02/14/21 08:45 Dose: Not Given Documented by: Non-Formulary Medication (Vitamins A,C,Q-Cqie-Vixfrl [Preservision Areds]) 1 cap PO DAILY REPLACED BY [facility] Non-Formulary Medication (Vitamin B Complex [B Complex-Vitamin B12]) 1 tab PO DAILY@16 REPLACED [facility] Last Admin: 02/14/21 14:56 Dose: Not Given Documented by: Vancomycin 125mg (Capsule) 1 each PO QID REPLACED BY [facility] Last Admin: 02/14/21 22:35 Dose: 1 each Documented by: Ondansetron HCl (Ondansetron 2 Mg/Ml Sdv 2 Ml) 4 mg IVP Q8H PRN PRN Reason: vomiting, or N/V if npo Last Admin: 02/13/21 01:30 Dose: 4 mg Documented by: Pantoprazole Sodium (Pantoprazole Dr 40 Mg Tablet) 40 mg PO DAILY REPLACED BY [facility] Last Admin: 02/14/21 08:34 Dose: 40 mg Documented by: Peritoneal Dialysis Solution (Dianeal Low Ca W/1.5% Dex 2,000 Ml Bag) 1,000 ml INTRAPERIT 6XD REPLACED BY [facility] Last Admin: 02/14/21 14:52 Dose: Not Given Documented by: Thiamine Mononitrate (Thiamine 100 Mg Tablet) 250 mg PO DAILY REPLACED BY [facility] Last Admin: 02/14/21 08:33 Dose: 250 mg Documented by: Tramadol HCl (Tramadol 50 Mg Tablet) 100 mg PO DAILY PRN PRN Reason: Pain Last Admin: 02/14/21 08:35 Dose: 100 mg Documented by: Vitals/I&O/Wt Last Vital Signs Temp 98.0 F 02/17/21 08:00 Pulse 99 02/17/21 09:40 Resp 18 02/17/21 09:40 BP 121/76 02/17/21 08:00 Pulse Ox 98 02/17/21 09:40 02/16/21 02/17/21 02/17/21 22:59 06:59 14:59 Intake Total 680 / 1160 580 / 1740 Output Total 1450 / 2150 1000 / 3150 Balance -770 / -990 -420 / -1410 Weight last 48 hrs Weight 125.554 kg Physical Exam Narrative: EXAM NARRATIVE: Constitutional: Awake, comfortable HEENT: Wet mucosa, no jvp, non icteric Lungs: Bilaterally clear without discernible wheeze, rales in all lung zones CVS: S1 S2, no murmurs Abdo: Soft, BS ok Ext 4: 1+ edema, peripheral perfusion with no cyanosis Neurological: Grossly non-focal Urinary Catheter Management^: Weir: Cath Placed During This Visit: yes Reason for Continuing Indwelling Catheter: Acute Urinary Retention or Obstruction Urinary Catheter Date of Insertion: 02/11/21 Urinary Catheter Time of Insertion: 17:32 Data : 02/15/21 10:08 02/16/21 00:50 Micro: Microbiology 02/11/21 16:03 Blood Culture - Final Blood NO GROWTH AFTER 5 DAYS 02/11/21 15:20 Blood Culture - Final Blood NO GROWTH AFTER 5 DAYS 02/11/21 18:00 Gram Stain - Final Ascites Fluid Body Fluid Culture - Final Enterococcus faecalis A&P Additional A&P Information 1. Hypervolemic Hyponatremia Labs pending for today Secondary to advanced liver disease. Continue fluid restriction, continue midodrine, Lasix and spironolactone are resumed. 2. Hepatic encephalopathy and confusion Ammonia levels on the lower side at the time of hospitalization, hence, his confusion was likely a manifestation of the hyponatremia. He does not want to take his lactulose is causing diarrhea and so he may be a candidate for rifaximin. 3. Advanced liver disease Follows with Dr. King as an outpatient in [place], I have asked him to follow with him expeditiously following discharge. He had questions about TIPS procedure, I asked him to defer to Dr. King. I encourage sobriety and enrollment in a liver transplant program to monitor him to monitor his alcohol intake. 4. Disposition He is okay for discharge from my own perspective, during his hospitalization we will continue to follow him. Delfino Hebert MD Nephrology [phone] Patient seen and examined via telemedicine, with the assistance of the bedside RN > 25 min spent in evaluation and mgmt of patient Attestations Medical Necessity Statement*: Eval for HypoNA Coding Level of Care Code Acute Hair Or Beauty Salon Assistant for Tay Rust
[2021-02-17 10:58] LABS: Glucose Point of Care 149 mg/dL (70-110)
[2021-02-17] MEDS: folic acid 1 mg Tablet PO (10:58)
[2021-02-17] MEDS: TRAMadol 50 mg Tablet 100 MG PO (14:58)
--- NOTE | 2021-02-19 22:57 | P.DS_ITS ---
Discharge Providers Date of Admission: 02/11/21 15:04 Date of Discharge: February 17, 2021 Attending Provider at Admission: Matthew Koroma MD Attending Provider at Discharge: Marlene Watson MD Primary Care Provider: Yosvany Segovia MD Diagnoses at Discharge Discharge Diagnosis (1) Hyponatremia: Status: Resolved (2) Acute metabolic encephalopathy: Status: Resolved (3) Acute renal failure: Status: Resolved Qualifiers: Acute renal failure type: with acute tubular necrosis Qualified Code(s): N17.0 - Acute kidney failure with tubular necrosis (4) Atrial fibrillation and flutter: (5) Ascites due to alcoholic cirrhosis: (6) CHF (congestive heart failure), NYHA class III: Qualifiers: Congestive heart failure chronicity: unspecified Congestive heart failure type: systolic Qualified Code(s): I50.20 - Unspecified systolic (congestive) heart failure (7) Decompensation of cirrhosis of liver: Status: Acute (8) Bradycardia: Status: Resolved (9) Hypoglycemia: Status: Resolved (10) Peritonitis: Status: Resolved (11) C. difficile diarrhea: Status: Acute Reason for Visit Reason for Visit: AMS Hospital Course Hospital Course 55 year old male with PMH chronic liver disease, cirrhosis, chronic hyponatremia presented with AMS and worsened hyponatremia. Hospital course as below: (1) Hyponatremia: Acute on chronic symptomatic hyponatremia. Multifactorial Patient admitted with serum sodium of 107:s/p 3% saline , po salt supplementation added and fluids restricted No current neurological deficits likely related to diuretics and SAMI Improved at discharge, back at recent baseline (2) Acute metabolic encephalopathy: Acute metabolic encephalopath related to hyponatremia. Resolved CT head without contrast: Normal (3) Acute renal failure: SAMI likely hepatorenal syndrome Received albumin and octreotide + midodrine Cr now back at baseline, good urine output renal US The right kidney is smaller than the left. Otherwise unremarkable kidneys and bladder. (4) Atrial fibrillation and flutter: resumed cardizem at discharge, dose adjusted to 120mg po daily. Was on hold for an extended time during admission due to bradycardia, which later resolved, restarted on 30mg q6h during admission (5) Ascites due to alcoholic cirrhosis: Portal HTN+ MELD score 29 - 20% mortality at 3 months Previosuly recommended TIPSS- attempted to contact patient's outpatient GI Dr. King at [facility] to discuss if patient will benefit from early procedure, however did not receive call back. Encouraged to follow up as outpatient. (6) CHF (congestive heart failure), NYHA class III: Heart failure with preserved ejection fraction Diuretics on hold due to SAMI, resumed once SAMI resolved HE received 2 cycles of PD during course of admission due to fluid overload (7) Decompensation of cirrhosis of liver: (8) Bradycardia: resolved, cardizem resumed (9) Hypoglycemia: resolved (10) Peritonitis: PD cell count 1997, gram stain with GPC in pairs and clusters identified as E.fecalis s/p systemic vancomycin based on levels, 5 day course, cell count down to 169 (11) C. difficile diarrhea: po vancomycin 125mg q6h x 14 days Disposition: attempted SNF placement given extensive deconditioning from multiple comorbidities, recurrent hospital admissions, declined at multiple facilities. Physical Exam Narrative: EXAM NARRATIVE: GEN: Awake, alert and oriented, no acute distress CVS: S1S2 N RS: CTA B/L Abd: Soft,distended, nt/nd , bs+ CORRECTIONAL TREATMENT SPECIALIST: no focal neuro deficits Urinary Catheter Management^: Weir: Cath Placed During This Visit: yes Reason for Continuing Indwelling Catheter: Acute Urinary Retention or Obstruction Urinary Catheter Date of Insertion: 02/11/21 Urinary Catheter Time of Insertion: 17:32 Discharge Data Data Completed and Pending: Completed Studies During Hospitalization Category Date Time Status CT head wo con* 7 0450 Urgent Cat Scan 02/11/21 12:09 Completed XR chest 1V kasia ble [id number] Stat Exams 02/13/21 11:47 Completed XR chest 1V kasia ble [id number] Urgent Exams 02/11/21 12:09 Completed US renal BI* [id number] Stat Ultrasound 02/12/21 07:34 Completed Vitals: Last Vital Signs Temp 96.2 F L 02/17/21 17:26 Pulse 87 02/17/21 17:26 Resp 17 02/17/21 17:26 BP 100/62 02/17/21 17:26 Pulse Ox 98 02/17/21 17:26 Discharge Plan Discharge Patient Disposition: Home Condition: Stable Prescriptions: New vancomycin 125 mg capsule 125 mg PO QID 14 Days Qty: 56 RF: 0 Cardizem CD 120 mg capsule,extended release 24hr 120 mg PO DAILY 30 Days Qty: 30 RF: 0 rifaximin 550 mg tablet 550 mg PO BID 30 Days Qty: 60 RF: 0 midodrine 5 mg Tablet 5 mg PO TID 30 Days Qty: 90 RF: 0 lactulose 20 gram/30 mL Solution 15 g PO TID Qty: 0 RF: 0 Continued sildenafil 100 mg tablet 100 mg PO PRN RF: 0 pantoprazole 40 mg tablet,delayed release (DR/EC) 40 mg PO DAILY@10 RF: 0 vitamin B complex [B Complex-Vitamin B12] Tablet 1 tab PO DAILY@16 RF: 0 (DME) Cam Walker See Rx Instructions .Route .MEDSUPPLY Qty: 1 RF: 0 Spiriva Respimat 2.5 mcg/actuation mist 2 puff inhalation DAILY Qty: 4 RF: 3 (DME) [place] Boot to the left and an even-up applied to the right foot See Rx Instructions .Route .MEDSUPPLY Qty: 1 RF: 0 tadalafil 20 mg tablet 20 mg PO DAILY PRN (Reason: sexual activity) Qty: 20 RF: 12 (DME) [place] boot See Rx Instructions .Route .MEDSUPPLY Qty: 1 RF: 0 tramadol 50 mg Tablet 100 mg PO DAILY PRN (Reason: Pain) RF: 0 Ocuvite Adult 50 Plus 250-5-1 mg Capsule 1 cap PO PRN RF: 0 folic acid 1 mg tablet 1 mg PO DAILY@10 RF: 0 furosemide [Lasix] 40 mg tablet 60 mg PO DAILY@10 RF: 0 Hold Instructions: Resume on 12/18/20. fluticasone propionate 50 mcg/actuation spray,suspension 1 - 2 spray intranasal DAILY RF: 0 albuterol sulfate 90 mcg/actuation HFA aerosol inhaler 2 inh INHALATION Q4H PRN (Reason: shortness of breath/wheezing) RF: 0 potassium chloride 20 mEq Tablet Extended Release 20 meq PO BID RF: 0 spironolactone 100 mg Tablet 100 mg PO DAILY RF: 0 Vitamin B-1 250 mg Tablet 250 mg PO DAILY RF: 0 PreserVision AREDS [id number] Capsule 1 cap PO DAILY RF: 0 ferrous sulfate 27 mg iron Tablet 27 mg PO DAILY RF: 0 Discontinued diltiazem HCl 120 mg tablet 120 mg PO Q8H RF: 0 meloxicam 7.5 mg tablet See Rx Instructions .ROUTE .COMPLEX RF: 0 Discharge Orders: Discharge Order (Routine); Ordered 02/17/21 Ordered By: Marlene Watson Referrals: Yosvany Segovia MD [Primary Care Provider] - 4-7 days (Please call Friday to schedule a follow up appointment. hospital discharge follow up for hepatorenal syndrome ) Discharge Diet: As Directed Discharge Activity: Resume usual activity Patient Instructions: Clostridium Difficile, Diltiazem (By mouth), Lactulose (By mouth), Midodrine (By mouth), Vancomycin (By mouth), Rifaximin (By mouth), Heart Failure (DC), Hepatic Encephalopathy (GEN), CHF Stoplight, Opioid Safety Discharge Attestations Time Spent in Discharge Care*: greater than 30 min Status at Discharge: Cognitive status at discharge: cognitively intact , Behavioral status at discharge: cooperative , Quality Metrics Clinical Quality Measures During this hospital stay, did patient experience: None Coding Level of Care Code Acute Chg FW DC note Diagnoses Hyponatremia E87.1 Acute metabolic encephalopathy G93.41 Acute renal failure N17.0 Acute renal failure type: with acute tubular necrosis Atrial fibrillation and flutter I48.91; I48.92 Ascites due to alcoholic cirrhosis K70.31 CHF (congestive heart failure), NYHA class III I50.20 Congestive heart failure chronicity: unspecified Congestive heart failure type: systolic Decompensation of cirrhosis of liver K72.90; K74.60 Bradycardia R00.1 Hypoglycemia E16.2 Peritonitis K65.9 C. difficile diarrhea A04.72
== END 2021-02-17 17:28 | disposition home or self-care (01) | DRG 640 ==
LOC: ER 14:53 → ICU 15:25 → MEDSURG 02-13 21:55
PROVIDERS: Internal Medicine; Internal Medicine Nephrology; Admitting Provider Internal Medicine; Emergency Provider Emergency Medicine; PCP Family Medicine; Visit Provider Student in an Organized Health Care Education/Training Program
DX: E87.1 Hypo-osmolality and hyponatremia (principal); K65.9 Peritonitis, unspecified; N17.0 Acute kidney failure with tubular necrosis; G93.41 Metabolic encephalopathy; K76.7 Hepatorenal syndrome; I48.20 Chronic atrial fibrillation, unspecified; I50.20 Unspecified systolic (congestive) heart failure; K76.6 Portal hypertension; B95.2 Enterococcus as the cause of diseases classified elsewhere; K72.90 Hepatic failure, unspecified without coma; K70.31 Alcoholic cirrhosis of liver with ascites; F10.20 Alcohol dependence, uncomplicated; Z91.14 Patient's other noncompliance with medication regimen; M14.60 Charcot's joint, unspecified site; N52.9 Male erectile dysfunction, unspecified; G62.9 Polyneuropathy, unspecified; N48.6 Induration penis plastica; Z87.01 Personal history of pneumonia (recurrent); I73.9 Peripheral vascular disease, unspecified; Z87.891 Personal history of nicotine dependence; E87.5 Hyperkalemia; B96.89 Other specified bacterial agents as the cause of diseases classified elsewhere; E16.2 Hypoglycemia, unspecified; R00.1 Bradycardia, unspecified
CPT/HCPCS: 36415; 36416; 36569; 36592; 51702; 70450; 71045; 76770; 80048; 80053; 80202; 80306; 80307; 80500; 81001; 82140; 82306; 82310; 82436; 82533; 82570; 82728; 82962; 83540; 83550; 83605; 83615; 83735; 83970; 83986; 84100; 84133; 84145; 84156; 84300; 84439; 84443; 84481; 85025; 85610; 85730; 85999; 87040; 87070; 87075; 87077; 87086; 87186; 87205; 87493; 89050; 93005; 96365; 96366; 99285; J0610; J0696; J0743; J1815; J1940; J2354; J2405; J3370; J7030; J7050; J7131; P9047; Q3014

== ENCOUNTER → 2021-03-02 13:36 | Outpatient (BNVA) | payer OTHER, SELFPAY | PROVIDERS: PCP Family Medicine; Visit Provider Nurse Practitioner Family | DX: N39.9 Disorder of urinary system, unspecified (principal); N40.1 Benign prostatic hyperplasia with lower urinary tract symptoms | CPT/HCPCS: 81003; 87086 ==

== ENCOUNTER 2021-03-30 18:53 | Inpatient (IN) | payer OTHER, SELFPAY ==
[2021-03-30 19:05] VITALS: BP 109/60; PULSE 61; RESP 17; TEMP 36.6; O2SAT 100; BMI 36.3
[2021-03-30 20:00] VITALS: BP 110/68; PULSE 103; RESP 20; O2SAT 987
--- NOTE | 2021-03-30 20:05 | W.ED.RECABL ---
HPI - Recheck/Abnormal Lab/Rx General: Chief Complaint: Recheck/Abnormal Lab/Rx Stated Complaint: LOW SODIUM LEVEL Time Seen by Provider: 03/30/21 19:47 History of Present Illness: HPI narrative: Patient arrived via ambulance with a history of chronic hyponatremia and liver failure. Patient was notify Dr. Segovia's office today that his sodium was 114 was requested to come to the ER. Patient has felt fine but has started being nauseated once arriving here. Review of Systems Const: Denies: fever(s), chills or body aches Eyes: Denies: change in vision or blurry vision ENMT: Denies: throat pain or nasal congestion Card: Denies: chest pain or dyspnea on exertion Resp: Denies: dyspnea, productive cough or non-productive cough GI: Reports: nausea; Denies: abdominal pain or vomiting : Denies: difficulty urinating Musc: Denies: extremity pain Skin/Breast: Denies: rash Neuro: Denies: headache(s) Psych: Denies: anxiety or depression Avinash/Lymph: Denies: easy bruising PFSH ED PFSH: Medical History (Updated 03/02/21 @ 12:05 by Boogie Echavarria MD) Acute dyspnea Acute hypokalemia Acute hyponatremia Ascites Ascites due to alcoholic cirrhosis Atrial fibrillation and flutter Atrial fibrillation with RVR BPH loc w urin obs/LUTS Charcot's arthropathy Chest pain Pleuritic chest pain: Resolved; CHF (congestive heart failure), NYHA class III Chronic hyponatremia End-stage liver disease Erectile dysfunction ETOH abuse Fracture of fourth metatarsal bone of left foot History of abdominal paracentesis Hx of esophageal varices Hyperkalemia Hyponatremia Hyponatremia with excess extracellular fluid volume Laceration of left foot Neuropathy Peyronie disease Pleural effusion S/P Left thoracentesis wit removal of 1L,Transduative fluid Pleural effusion associated with hepatic disorder Pneumonia PVD (peripheral vascular disease) Surgical History H/O colonoscopy 10-12 yrs H/O esophagogastroduodenoscopy History of tonsillectomy Hx of umbilical hernia repair Hx of vasectomy Status post surgery (07/05/20) peritoneal catheter for ascites Family History Grandfather CAD (coronary artery disease) Grandmother CAD (coronary artery disease) Cancer Father Cancer Denies family history of Anesthesia complication Bleeding disorder Social History Smoking and tobacco status: current some day smoker Quit status (tobacco): has quit using tobacco Year quit tobacco: 2014 less than a [id number] Second hand smoke exposure: No Smoking risk assessment/counseling performed?: Yes Alcohol intake: current Alcohol intake frequency: 3 or more drinks per day Alcohol type: beer Adopted: No Caregiver/support person: Yes Lives independently: Yes Household members: children Marital status: Current occupational status: unemployed Pets and animals: Yes History of recent travel: No Current gender identity: Male Physical Exam Const: COMMON NORMALS: no acute distress EXAM LIMITATIONS: no altered mental status GENERAL APPEARANCE: cooperative Resp: COMMON NORMALS: normal respiratory effort Cardio: COMMON NORMALS: regular rate RATE: regular rate OTHER: 2+ edema lower extremities Psych: COMMON NORMALS: mental status grossly normal Course Vital Signs: Vital signs: Vital Signs Temperature 97.9 F 03/30/21 19:05 Pulse Rate 61 03/30/21 19:05 Respiratory Rate 17 03/30/21 19:05 Blood Pressure 109/60 03/30/21 19:05 Pulse Oximetry 100 03/30/21 19:05 MDM - Recheck/Abnormal Lab/Rx EKG Data^: EKG 1: EKG interpretation date: 03/30/21 EKG interpretation time: 20:40 Computer generated interpretation: A. fib with slow ventricular response. Ventricular rate 51 bpm, QRS duration 88 ms QT is 454 ms old septal [place] with a 40+ Q wave in V1 V2 Discharge Plan Discharge Prescriptions: No Action sildenafil 100 mg tablet 100 mg PO PRN RF: 0 pantoprazole 40 mg tablet,delayed release (DR/EC) 40 mg PO DAILY@10 RF: 0 vitamin B complex [B Complex-Vitamin B12] Tablet 1 tab PO DAILY@16 RF: 0 (DME) Eliezer Hagen See Rx Instructions .Route .MEDSUPPLY Qty: 1 RF: 0 Spiriva Respimat 2.5 mcg/actuation mist 2 puff inhalation DAILY Qty: 4 RF: 3 alfuzosin 10 mg tablet extended release 24 hr 10 mg PO DAILY Qty: 30 RF: 12 tadalafil 20 mg tablet 20 mg PO DAILY PRN (Reason: sexual activity) Qty: 20 RF: 12 (DME) Douglas boot See Rx Instructions .Route .MEDSUPPLY Qty: 1 RF: 0 (DME) Douglas Boot to the left and an even-up applied to the right foot See Rx Instructions .Route .MEDSUPPLY Qty: 1 RF: 0 tramadol 50 mg Tablet 100 mg PO DAILY PRN (Reason: Pain) RF: 0 Ocuvite Adult 50 Plus 250-5-1 mg Capsule 1 cap PO PRN RF: 0 folic acid 1 mg tablet 1 mg PO DAILY@10 RF: 0 furosemide [Lasix] 40 mg tablet 60 mg PO DAILY@10 RF: 0 Hold Instructions: Resume on 12/18/20. fluticasone propionate 50 mcg/actuation spray,suspension 1 - 2 spray intranasal DAILY RF: 0 albuterol sulfate 90 mcg/actuation HFA aerosol inhaler 2 inh INHALATION Q4H PRN (Reason: shortness of breath/wheezing) RF: 0 potassium chloride 20 mEq Tablet Extended Release 20 meq PO BID RF: 0 spironolactone 100 mg Tablet 100 mg PO DAILY RF: 0 Vitamin B-1 250 mg Tablet 250 mg PO DAILY RF: 0 PreserVision AREDS [id number],320-226-200 [id number] Capsule 1 cap PO DAILY RF: 0 ferrous sulfate 27 mg iron Tablet 27 mg PO DAILY RF: 0 lactulose 20 gram/30 mL Solution 15 g PO TID Qty: 0 RF: 0 Coding Level of Care Code ED Senior Librarian for Chg Fwd Exam Expanded Problem Focused
--- NOTE | 2021-03-30 20:07 | XRR_ITS ---
PROCEDURE INFORMATION: Exam: XR Chest Exam date and time: 03/30/2021 8:07 PM Age: 55 years old Clinical indication: Abnormal findings; Abnormal diagnostic tests; Other: Low sodium; Additional info: Hyponatremia TECHNIQUE: Imaging protocol: XR of the chest. Views: 1 view. COMPARISON: CR XR chest 1V portable [id number] 02/13/2021 11:59 AM FINDINGS: Lungs: Left lung base opacities are nonspecific. Pleural spaces: Negative for pneumothorax. Suspect left effusion. Heart/Mediastinum: Unremarkable. No cardiomegaly. Bones/joints: Unremarkable. XR/XR chest 1V portable [id number] IMPRESSION: 1. Left pleural effusion is suspected. 2. There is some opacification of the left lower lobe which is nonspecific. Most likely atelectasis.
--- NOTE | 2021-03-30 20:07 | ECG_ITS ---
[facility] Test Date: 2021-03-30 Pat Name: Yosvany Soto Department: Room: Gender: Male Picker: : [phone] Requested By: Jules Paz Order Number: [id number] Cade MD: Odin Eddy M.D. Measurements Intervals [place] Rate: 60 P: VT: QRS: 23 QRSD: 89 T: 4 QT: 429 QTc: 430 Interpretive Statements ATRIAL FIBRILLATION LOW QRS VOLTAGE IN PRECORDIAL LEADS [QRS DEFLECTION < 1.0 mV IN CHEST LEADS] ANTEROSEPTAL MYOCARDIAL INFARCTION [40+ ms Q WAVE IN V1-V4], PROBABLY OLD Lead V6 is missing WARNING: DATA QUALITY MAY AFFECT INTERPRETATION Compared to ECG 02/11/2021 12:40:36 No significant changes Electronically Signed On 03-31-2021 19:28:12 CDT by Odin Eddy M.D. [email or web address]
[2021-03-30 21:00] VITALS: BP 103/65; PULSE 62; RESP 20; O2SAT 100
[2021-03-30 21:29] LABS: Basophils % 0.3 %; Eosinophils # 0.1 10^3/uL (0.0-0.8); Eosinophils % 1.1 %; Hemoglobin 8.7 g/dL (11.7-16.6); Lymphocytes # 0.5 10^3/uL (0.8-4.8); Lymphocytes % 7.2 %; Mean Corpuscular HGB Conc 34.8 g/dL (30.0-36.0); Mean Corpuscular Hemoglobin 33.7 pg (28.0-34.0); Mean Corpuscular Volume 96.9 fL (80-94); Mean Platelet Volume 9.8 fL (7.4-10.4); Monocytes # 0.6 10^3/uL (0.2-0.9); Neutrophils # 5.99 10^3/uL (1.8-7.7); Neutrophils % 82.4 %; Nucleated Red Blood Cells % 0 %; Platelet Count 193 10^3/cmm (130-400); Red Blood Count 2.58 10^6/uL (4.1-5.3); Red Cell Distribution Width 15.4 % (12.1-15.1); White Blood Count 7.3 10^3/uL (4.0-10.0)
[2021-03-30 22:00] VITALS: BP 104/73; PULSE 62; RESP 18; O2SAT 99
[2021-03-30 22:28] LABS: Alanine Aminotransferase 13 U/L (0-41); Albumin Level 3.1 g/dL (3.5-5.2); Alkaline Phosphatase 131 IU/L (40-130); Blood Urea Nitrogen 31 mg/dL (6-20); Carbon Dioxide 20 mmol/L (22-29); Chloride 84 mmol/L (98-107); Globulin 1.8 g/dL (1.3-4.6); Glomerular Filtration Rate 32.8 mL/min (90-130); Glucose 116 mg/dL (65-115); Osmolality Calculated 246 mOsm/kg (285-295); Total Bilirubin 0.9 mg/dL (0.15-1.2); Total Protein 4.9 g/dL (6.6-8.7)
[2021-03-30 22:30] LABS: Creatinine Clr Calc Pharmacy 52.8807
[2021-03-30 22:34] LABS: Anion Gap 15.7 (5-19); Aspartate Amino Transferase 24 U/L (0-40); Potassium 5.7 mmol/L (3.5-5.1)
[2021-03-30] MEDS: ondansetron 2 mg/ML SDV 2 mL 4 MG IVP (22:34)
[2021-03-30 22:35] LABS: Sodium 114 mmol/L (136-145)
[2021-03-30] MEDS: sodium chloride 0.9% 1,000 ML 125 ML IV (22:35)
[2021-03-30 23:00] VITALS: BP 129/64; PULSE 60; RESP 20; O2SAT 98
[2021-03-30 23:02] LABS: Add Urine Microscopic? NO; Charge for UA Resulting for Rev
[2021-03-30 23:22] LABS: Bilirubin Urine Neg (Negative); Blood Urine Neg (Negative); Glucose Urine UA Norm (Normal); Ketones Urine Negative (Negative); Leukocyte Esterase Urine Negative (Negative); Nitrate Urine Negative (Negative); Protein Urine Neg (Negative); Specific Gravity, Urine 1.015 (1.005-1.030); Urine Appearance Clear (CLEAR); Urine Color Amber (Yellow); Urobilinogen Urine Norm (Negative); pH Urine 5 (5-7)
--- NOTE | 2021-03-30 23:24 | PM.HP ---
Providers/Chief Complaint Admitting Physician: Marlene Watson MD Primary Care Provider: Yosvany Segovia MD Chief Complaint: LOW SODIUM LEVEL History of Present Illness Yosvany Soto is a 55 year old male with PMH chronic liver disease, cirrhosis, chronic hyponatremia with recurrent hospital admissions recently admitted here between 02/15-02/19 with hepatorenal syndrome, hyponatremia, bacterial peritonitis sent over from PCPs office for Na again dropping to 114 and cr trended up to 2.0. He remains at baseline mentation today, on last admission was recommended early follow up with GI to get TIPSS. Home health and SNF placement has been attempted to be arranged on multiple occassions but this has never been successful. Review of Systems General: Reports: 10 or more systems reviewed and unremarkable except in HPI and below Const: Reports: fever(s) and chills; Denies: body aches Eyes: Denies: change in vision, blurry vision or photophobia ENMT: Reports: hoarseness; Denies: throat pain, enlarged tonsils, odynophagia or nasal congestion Card: Denies: chest pain, palpitations, irregular heart rhythm, edema, swelling of feet/ankles, lightheadedness, pre-syncope, dyspnea on exertion or orthopnea Resp: Denies: dyspnea, productive cough, non-productive cough, wheezing, stridor, pain on inspiration, change in phlegm color, hemoptysis or chest congestion GI: Denies: abdominal pain, nausea, vomiting, hematemesis, coffee ground emesis, dysphagia, heartburn, diarrhea, constipation, GI cramping, change in stool character, hematochezia or melena : Denies: flank pain, dysuria, urinary frequency, urinary urgency, urinary hesitancy or hematuria Musc: Denies: neck pain, back pain, extremity pain, joint swelling, joint warmth or deformity Neuro: Denies: headache(s), numbness in extremities, weakness in extremities, sensory changes, difficulty walking, frequent falls, dizziness, vertigo, behavioral changes, Slurred speech present or seizure-like activity Psych: Denies: anxiety, depression, suicidal ideation or homicidal ideation Endo: Denies: polyuria, polydipsia, tired all the time, cold intolerance or hot flashes Avinash/Lymph: Denies: easy bruising or easy bleeding Medications/Allergies Home Medications Medication Instructions Recorded Confirmed Last Taken Type pantoprazole 40 mg tablet,delayed 40 mg PO DAILY@10 01/04/20 03/30/21 03/30/21 History release sildenafil 100 mg tablet 100 mg PO PRN 01/04/20 03/30/21 Unknown History vitamin B complex 1 tab PO DAILY@16 01/04/20 03/30/21 03/30/21 History tadalafil 20 mg tablet 20 mg PO DAILY PRN #20 tab 01/10/20 03/30/21 Unknown Rx tramadol 100 mg PO DAILY PRN 05/05/20 03/30/21 03/30/21 History Ocuvite Adult 50 Plus 1 cap PO PRN 08/04/20 03/30/21 01/12/21 History folic acid 1 mg PO DAILY@08/23/20 03/30/21 03/30/21 History furosemide [Lasix] 60 mg PO DAILY@08/23/20 03/30/21 03/30/21 History [place] boot #1 ea 09/01/20 03/30/21 Unknown Rx fluticasone propionate 1 - 2 spray INTRANASAL DAILY 09/08/20 03/30/21 03/30/21 History Cam Walker #1 ea NS 10/02/20 03/30/21 Unknown Rx albuterol sulfate 2 inh INHALATION Q4H PRN 12/11/20 03/30/21 Unknown History tiotropium bromide 2.5 2 puff INHALATION DAILY #4 g 12/28/20 03/30/21 Unknown Rx mcg/actuation mist for inhalation potassium chloride 20 meq PO BID 01/12/21 03/30/21 03/30/21 History PreserVision AREDS 1 cap PO DAILY 02/11/21 03/30/21 03/30/21 History ferrous sulfate 27 mg PO DAILY 02/11/21 03/30/21 03/30/21 History thiamine HCl (vitamin B1) [Vitamin 250 mg PO DAILY 02/11/21 03/30/21 03/30/21 History B-1] lactulose 15 g PO TID #0 ml 02/17/21 03/30/21 Unknown Rx alfuzosin 10 mg tablet,extended 10 mg PO DAILY #30 tab 03/02/21 03/30/21 03/30/21 Rx release 24 hr [place] Boot to the left and an #1 ea 03/23/21 03/30/21 Unknown Rx even-up applied to the right foot diltiazem HCl 120 mg PO DAILY 03/30/21 03/30/21 03/30/21 History midodrine 5 mg PO TID 03/30/21 03/30/21 03/30/21 History spironolactone 25 mg PO DAILY 03/30/21 03/30/21 03/30/21 History Allergies Allergy/AdvReac Type Severity Reaction Status Date / Time Penicillins Allergy ALGY-Difficulty Verified 03/02/21 11:20 Breathing Sulfa (Sulfonamide Allergy Unknown Verified 03/02/21 11:20 Antibiotics) PFSH Acute PFSH: Medical History Acute dyspnea Acute hypokalemia Acute hyponatremia Ascites Ascites due to alcoholic cirrhosis Atrial fibrillation and flutter Atrial fibrillation with RVR BPH loc w urin obs/LUTS Charcot's arthropathy Chest pain Pleuritic chest pain: Resolved; CHF (congestive heart failure), NYHA class III Chronic hyponatremia End-stage liver disease Erectile dysfunction ETOH abuse Fracture of fourth metatarsal bone of left foot History of abdominal paracentesis Hx of esophageal varices Hyperkalemia Hyponatremia Hyponatremia with excess extracellular fluid volume Laceration of left foot Neuropathy Peyronie disease Pleural effusion S/P Left thoracentesis wit removal of 1L,Transduative fluid Pleural effusion associated with hepatic disorder Pneumonia PVD (peripheral vascular disease) Surgical History H/O colonoscopy 10-12 yrs H/O esophagogastroduodenoscopy History of tonsillectomy Hx of umbilical hernia repair Hx of vasectomy Status post surgery (07/05/20) peritoneal catheter for ascites Family History Grandfather CAD (coronary artery disease) Grandmother CAD (coronary artery disease) Cancer Father Cancer Denies family history of Anesthesia complication Bleeding disorder Social History Smoking and tobacco status: current some day smoker Quit status (tobacco): has quit using tobacco Year quit tobacco: 2013 less than a [id number] Second hand smoke exposure: No Smoking risk assessment/counseling performed?: Yes Alcohol intake: current Alcohol intake frequency: 3 or more drinks per day Alcohol type: beer Adopted: No Caregiver/support person: Yes Lives independently: Yes Household members: children Marital status: Current occupational status: unemployed Pets and animals: Yes History of recent travel: No Current gender identity: Male Vitals/I&O/Wt Last Vital Signs Temp 97.9 F 03/30/21 19:05 Pulse 61 03/30/21 19:05 Resp 17 03/30/21 19:05 BP 109/60 03/30/21 19:05 Pulse Ox 100 03/30/21 19:05 Weight last 48 hrs Weight 121.563 kg Physical Exam Narrative: EXAM NARRATIVE: General: No acute distress, AO x3 HEENT: PERRLA, pupils bilaterally equal and reactive, pallors not present Chest: Normal vesicular breath sounds, no added sounds, equal good air entry bilaterally CVS: S1-S2 regular, no murmurs, no tachycardia, no gallops, no rubs Abdomen: Soft, nontender, no organomegaly, bowel sounds present Neuro: No focal deficits, no facial deformity, AO x3, power 5/5 in all limbs Extremities: edema Data : 03/31/21 06:29 03/31/21 06:29 A&P Assessment and plan (1) Hepatorenal syndrome: start treatment with albumin, octreotide, midodrine monitor urine outut and cr trend closely recent renal US right kidney is smaller than the left. Otherwise unremarkable kidneys and bladder. Status: Acute (2) Chronic hyponatremia: Acute on chronic symptomatic hyponatremia. Multifactorial Patient admitted with serum sodium of 114 po salt supplementation, fluids restricted to 1200cc/day No current neurological deficits Status: Acute (3) Hyperkalemia: currently at 5.7 insulin dextrose now monitor with am labs Status: Acute (4) Pleural effusion: Transudative effusion on previous thoracentesis Saturating well on room air Status: Acute (5) Charcot's joint of left foot: Chronic Status: Acute (6) Alcoholic cirrhosis of liver with ascites: Portal HTN+ MELD score 29 - 20% mortality at 3 months Previosuly recommended TIPSS Status: Acute Attestations Medical Necessity Statement*: >2midnight admission anticipated for management of acute on chronic hyponatremia and hepatorenal syndrome. Coding Level of Care Code Acute Stretching Machine Tender Frame for Chg Fwd Diagnoses Hepatorenal syndrome K76.7 Chronic hyponatremia E87.1 Hyperkalemia E87.5 Pleural effusion J90 Charcot's joint of left foot M14.672 Alcoholic cirrhosis of liver with ascites K70.31
[2021-03-30 23:55] VITALS: BP 137/83; PULSE 58; RESP 20; O2SAT 98
[2021-03-31] VITALS (10 sets, daily range): BP systolic 100–137; BP diastolic 61–86; PULSE 58–82; RESP 14–20; TEMP 36.4–36.9; O2SAT 97–99
[2021-03-31 00:13] LABS: Potassium, Radom Urine 51 mmol/L; Urine Random Chloride 22 mmol/L
[2021-03-31 00:19] LABS: Urine Random Sodium < 10 mmol/L
[2021-03-31 01:02] LABS: Glucose Point of Care 124 mg/dL (70-110)
[2021-03-31] MEDS: dextrose 50% syringe 50 mL IVP ×2 (01:29→23:17)
[2021-03-31] MEDS: insulin regular-human 10 UNIT in SYRINGE 1 EACH IVP ×2 (01:34→23:19)
[2021-03-31] MEDS: octreotide 500 MCG in sodium chloride 0.9% (100 ml) 100 ML 10.1 MCG IV ×3 (03:25→19:30)
[2021-03-31 07:06] LABS: Basophils % 0.5 %; Eosinophils # 0.1 10^3/uL (0.0-0.8); Eosinophils % 1.4 %; Hemoglobin 8.5 g/dL (11.7-16.6); Lymphocytes # 0.4 10^3/uL (0.8-4.8); Lymphocytes % 6.3 %; Mean Corpuscular Hemoglobin 33.2 pg (28.0-34.0); Mean Corpuscular Volume 97.7 fL (80-94); Mean Platelet Volume 9.3 fL (7.4-10.4); Monocytes # 0.6 10^3/uL (0.2-0.9); Monocytes % 8.9 %; Neutrophils # 5.46 10^3/uL (1.8-7.7); Nucleated Red Blood Cells % 0 %; Platelet Count 155 10^3/cmm (130-400); Red Blood Count 2.56 10^6/uL (4.1-5.3); Red Cell Distribution Width 14.6 % (12.1-15.1); White Blood Count 6.7 10^3/uL (4.0-10.0)
[2021-03-31 07:27] LABS: Alanine Aminotransferase 13 U/L (0-41); Albumin Level 2.9 g/dL (3.5-5.2); Alkaline Phosphatase 102 IU/L (40-130); Anion Gap 17.2 (5-19); Aspartate Amino Transferase 18 U/L (0-40); Blood Urea Nitrogen 31 mg/dL (6-20); Calcium 8.5 mg/dL (8.5-10.5); Carbon Dioxide 21 mmol/L (22-29); Chloride 86 mmol/L (98-107); Creatinine Clr Calc Pharmacy 52.8807; Globulin 2.3 g/dL (1.3-4.6); Glomerular Filtration Rate 32.8 mL/min (90-130); Glucose 67 mg/dL (65-115); Osmolality Calculated 253 mOsm/kg (285-295); Potassium 5.2 mmol/L (3.5-5.1); Total Bilirubin 1.1 mg/dL (0.15-1.2); Total Protein 5.2 g/dL (6.6-8.7)
[2021-03-31 07:48] LABS: Sodium 119 mmol/L (136-145)
--- NOTE | 2021-03-31 08:08 | P.PN_ITS ---
Subjective Subjective: Interval history: No acute interim events. Sodium this morning at 119. Corrected 5 mEq since last night. Potassium improved at 5.2. Creatinine at 2.1. urine output 475 cc Medications: Reviewed: Yes Vitals/I&O/Wt Last Vital Signs Temp 97.7 F 03/31/21 03:13 Pulse 68 03/31/21 03:13 Resp 16 03/31/21 03:13 BP 109/61 03/31/21 03:13 Pulse Ox 98 03/31/21 03:13 03/30/21 03/31/21 03/31/21 22:59 06:59 14:59 Intake Total 100 / 100 Output Total 475 / 475 Balance -375 / -375 Weight last 48 hrs Weight 121.563 kg Physical Exam Narrative: EXAM NARRATIVE: General: No acute distress, AO x3 HEENT: PERRLA, pupils bilaterally equal and reactive, pallors not present Chest: Normal vesicular breath sounds, no added sounds, equal good air entry bilaterally CVS: S1-S2 regular, no murmurs, no tachycardia, no gallops, no rubs Abdomen: Soft, nontender, no organomegaly, bowel sounds present Neuro: No focal deficits, no facial deformity, AO x3, power 5/5 in all limbs Extremities: edema Data : 03/31/21 06:29 03/31/21 06:29 A&P Assessment and plan (1) Hepatorenal syndrome: Continue treatment with albumin, octreotide, midodrine monitor urine outut and cr trend closely recent renal US right kidney is smaller than the left. Otherwise unremarkable kidneys and bladder. Holding diuretics for now On last admission needed one session of PD. Status: Acute (2) Chronic hyponatremia: Acute on chronic hyponatremia. Multifactorial Patient admitted with serum sodium of 114, corrected to 119 this morning. Had received NS in ER. Hold salt tablets for now, recheck CMP in 12 hrs. fluids restricted to 1200cc/day No current neurological deficits Status: Acute (3) Hyperkalemia: currently at 5.2, s/p insulin dextrose insulin dextrose now monitor with am labs Status: Acute (4) Pleural effusion: Transudative effusion on previous thoracentesis Saturating well on room air monitor for now without thoracentesis Status: Acute (5) Charcot's joint of left foot: Chronic Status: Acute (6) Alcoholic cirrhosis of liver with ascites: Portal HTN+ MELD score 29 - 20% mortality at 3 months Previosuly recommended TIPSS Drains approx 1L from peritoneal drain daily D/c cardizem, start propranolol for portal HTN Status: Acute (7) A-fib: D/c Cardizem. Start propranolol 10 mg 3 times daily for heart rate control, also a better agent for portal hypertension. Status: Acute Attestations Medical Necessity Statement*: Hepatorenal syndrome, monitor creatinine and urine output closely, hyponatremia needing close monitoring Coding Level of Care Code Acute Diesel Service Technician for Chg Fwd Diagnoses Hepatorenal syndrome K76.7 Chronic hyponatremia E87.1 Hyperkalemia E87.5 Pleural effusion J90 Charcot's joint of left foot M14.672 Alcoholic cirrhosis of liver with ascites K70.31 A-fib I48.91
[2021-03-31] MEDS: lactulose oral liq 20 gm/30 mL UDC 15 GM PO ×2 (08:13→15:06)
[2021-03-31] MEDS: midodrine 5 mg TABLET PO ×2 (08:14→15:07)
[2021-03-31] MEDS: thiamine 100 mg Tablet PO (08:16)
[2021-03-31] MEDS: pantoprazole DR 40 mg Tablet PO (08:16)
[2021-03-31] MEDS: TRAMadol 50 mg Tablet 100 MG PO (08:24)
[2021-03-31] MEDS: propranolol 20 mg Tablet 10 MG PO ×2 (09:09→15:06)
[2021-03-31] MEDS: folic acid 1 mg Tablet PO (09:09)
[2021-03-31] MEDS: alfuzosin 10 mg ER Tablet PO (10:19)
[2021-03-31 18:18] LABS: Alanine Aminotransferase 11 U/L (0-41); Albumin Level 3.2 g/dL (3.5-5.2); Alkaline Phosphatase 84 IU/L (40-130); Anion Gap 16.9 (5-19); Aspartate Amino Transferase 18 U/L (0-40); Blood Urea Nitrogen 31 mg/dL (6-20); Calcium 8.3 mg/dL (8.5-10.5); Carbon Dioxide 21 mmol/L (22-29); Chloride 87 mmol/L (98-107); Globulin 1.9 g/dL (1.3-4.6); Glomerular Filtration Rate 29.6 mL/min (90-130); Glucose 118 mg/dL (65-115); Osmolality Calculated 256 mOsm/kg (285-295); Potassium 5.9 mmol/L (3.5-5.1); Total Bilirubin 0.9 mg/dL (0.15-1.2); Total Protein 5.1 g/dL (6.6-8.7)
[2021-03-31 18:23] LABS: Sodium 119 mmol/L (136-145)
[2021-04-01] VITALS (8 sets, daily range): BP systolic 100–117; BP diastolic 62–81; PULSE 64–88; RESP 13–18; TEMP 36.3–36.8; O2SAT 95–99
--- NOTE | 2021-04-01 05:29 | PC.NURSE ---
Shift Summary At beginning of shift patient got out of bed wanting to stand but seemed to be a bit confused. Patient was placed back in bed and was awake and orientated. Patient went to sleep, and upon med pass patient became uncooperative and would not take evening medication. Patient would open his eyes and yell I hear you then close his eyes every time this nurse would try to wake him. Throughout the shift this nurse would get the same response from patient when trying to awaken him. Message sent to hospitalist to notify of this change from patient. Patient is currently resting in bed.
[2021-04-01 07:47] LABS: Glucose Point of Care 100 mg/dL (70-110)
[2021-04-01 08:55] LABS: Basophils % 0.3 %; Eosinophils % 0.6 %; Hematocrit 23.3 % (42.0-52.0); Hemoglobin 7.9 g/dL (11.7-16.6); Lymphocytes # 0.4 10^3/uL (0.8-4.8); Lymphocytes % 5.6 %; Mean Corpuscular HGB Conc 33.9 g/dL (30.0-36.0); Mean Corpuscular Hemoglobin 32.9 pg (28.0-34.0); Mean Corpuscular Volume 97.1 fL (80-94); Mean Platelet Volume 9.4 fL (7.4-10.4); Monocytes # 0.7 10^3/uL (0.2-0.9); Monocytes % 9.6 %; Neutrophils # 5.64 10^3/uL (1.8-7.7); Neutrophils % 83.2 %; Nucleated Red Blood Cells % 0 %; Platelet Count 165 10^3/cmm (130-400); Red Cell Distribution Width 14.8 % (12.1-15.1); White Blood Count 6.8 10^3/uL (4.0-10.0)
[2021-04-01] MEDS: octreotide 500 MCG in sodium chloride 0.9% (100 ml) 100 ML 10.1 MCG IV (09:13)
[2021-04-01] MEDS: midodrine 5 mg TABLET PO ×3 (09:27→21:11)
[2021-04-01 09:28] LABS: Ammonia 70 umol/L (16-60)
[2021-04-01] MEDS: alfuzosin 10 mg ER Tablet PO (09:28)
[2021-04-01] MEDS: folic acid 1 mg Tablet PO (09:28)
[2021-04-01] MEDS: thiamine 100 mg Tablet PO (09:28)
[2021-04-01] MEDS: propranolol 20 mg Tablet 10 MG PO ×3 (09:28→21:10)
[2021-04-01] MEDS: lactulose oral liq 20 gm/30 mL UDC 15 GM PO (09:28)
[2021-04-01] MEDS: pantoprazole DR 40 mg Tablet PO (09:28)
[2021-04-01 09:31] LABS: Alanine Aminotransferase 12 U/L (0-41); Albumin Level 3.4 g/dL (3.5-5.2); Alkaline Phosphatase 78 IU/L (40-130); Anion Gap 13.4 (5-19); Aspartate Amino Transferase 18 U/L (0-40); Blood Urea Nitrogen 31 mg/dL (6-20); Calcium 8.5 mg/dL (8.5-10.5); Carbon Dioxide 23 mmol/L (22-29); Chloride 89 mmol/L (98-107); Globulin 1.8 g/dL (1.3-4.6); Glomerular Filtration Rate 29.6 mL/min (90-130); Glucose 103 mg/dL (65-115); Osmolality Calculated 257 mOsm/kg (285-295); Potassium 5.4 mmol/L (3.5-5.1); Sodium 120 mmol/L (136-145); Total Bilirubin 1.1 mg/dL (0.15-1.2); Total Protein 5.2 g/dL (6.6-8.7)
--- NOTE | 2021-04-01 10:44 | P.PN_ITS ---
Subjective Subjective: Interval history: Patient noted to be more somnolent today. He is intermittently confused, takes longer than usual to wake him up and slower to respond. Sodium is stable at 120. Ammonia level noted to be elevated at 7 0. No fever, hemodynamically stable. Creatinine at 2.3, urine output 1.6 L over last 24 hours. Medications: Reviewed: Yes Vitals/I&O/Wt Last Vital Signs Temp 98.2 F 04/01/21 07:32 Pulse 64 04/01/21 10:30 Resp 16 04/01/21 10:30 BP 117/71 04/01/21 07:32 Pulse Ox 96 04/01/21 10:30 03/31/21 04/01/21 04/01/21 22:59 06:59 14:59 Intake Total 192.752 / 1232.442 143.935 / 1376.377 57.165 / 57.165 Output Total 400 / 1325 275 / 275 Balance 192.752 / 307.442 -256.065 / 51.377 -217.835 / -217.835 Weight last 48 hrs Weight 121.563 kg Physical Exam Narrative: EXAM NARRATIVE: GEN: somnolent, slow to respond however will answer questions appropriately. CVS: S1S2 N RS: CTA B/L except crackles over RUL Abd: Soft, nt/nd , bs+ CURBING STONECUTTER: no focal neuro deficits , moving all extremities in bed Data : 04/01/21 08:40 04/01/21 08:40 A&P Assessment and plan (1) Hepatorenal syndrome: Continue treatment with albumin, octreotide, midodrine monitor urine outut and cr trend closely recent renal US right kidney is smaller than the left. Otherwise unremarkable kidneys and bladder. Holding diuretics for now On last admission needed one session of PD. Renal consult today given SAMI, advise regarding resumption of diuretics. Status: Acute (2) Chronic hyponatremia: Acute on chronic hyponatremia. Multifactorial Patient admitted with serum sodium of 114, corrected to 120 now. fluids restricted to 1200cc/day Patient noted to be more lethargic today, somnolent, however wakes up to talk appropriately. Sodium correction 1 mEq in the last 24 hours. Suspect his mental status change today related more to hepatic encephalopathy as ammonia is now at 70 and patient has not had a bowel movement, less likely related to changes from acute hyponatremia Status: Acute (3) Hyperkalemia: Status: Acute (4) Pleural effusion: Transudative effusion on previous thoracentesis Saturating well on room air monitor for now without thoracentesis Status: Acute (5) Charcot's joint of left foot: Chronic Status: Acute (6) Alcoholic cirrhosis of liver with ascites: Portal HTN+ MELD score 29 - 20% mortality at 3 months Previosuly recommended TIPSS Drains approx 1L from peritoneal drain daily drain from peritoneal drain today. D/c cardizem, started propranolol for portal HTN Status: Acute (7) A-fib: D/c Cardizem. Started propranolol 10 mg 3 times daily for heart rate control, also a better agent for portal hypertension. Status: Acute (8) Hepatic encephalopathy: Ammonia level at 70 today. He has only been intermittently taking his lactulose. Added rectal lactulose, has not had a bowel movement since admission. If no bowel movement by this afternoon to get a rectal enema. Additionally start rifaximin Status: Acute Additional A&P Information Given mental status changes today, will obtain peritoneal fluid analysis. Thania ent was recently treated for peritonitis related with chronic indwelling peritoneal drain. Culture with Enterococcus, treated appropriately on last admission. Hold off on antibiotics until results of analysis available. Recent history of C. difficile: No current diarrhea Anemia, at recent baseline of 7.9. Transfusion threshold at 7 Full code DVT prophylaxis Lovenox Attestations Medical Necessity Statement*: Needs ongoing inpatient care for treatment of hepatorenal syndrome, closely monitor creatinine, mental status changes related to hepatic encephalopathy Coding Level of Care Code Acute Asbestos Handler for [facility] Diagnoses Hepatorenal syndrome K76.7 Chronic hyponatremia E87.1 Hyperkalemia E87.5 Pleural effusion J90 Charcot's joint of left foot M14.672 Alcoholic cirrhosis of liver with ascites K70.31 A-fib I48.91 Hepatic encephalopathy K72.90
[2021-04-01] MEDS: lactulose oral liq 20 gm/30 mL UDC PO ×2 (11:24→17:52)
[2021-04-01 12:14] LABS: Mononuclear #, Pertinoneal Fl 0.148 10^3/uL; Polynuclear # Cells, Perit 0.076 10^3/uL
[2021-04-01 12:15] LABS: Appearance, Peritoneal Fluid Clear (Clear); Color, Peritoneal Fluid Pale Yellow (Pale Yellow); RBC Pertioneal Fluid 1 10^3/uL; WBC Peritoneal Fluid 224 /uL
[2021-04-01 12:16] LABS: Pathology Referral Yes
[2021-04-01] MEDS: enoxaparin 30 mg/0.3 mL Syringe SUBCUT (14:25)
--- NOTE | 2021-04-01 20:46 | P.CONIM_ITS ---
Providers/Reason For Consult Consulting Physician/Specialty*: [place]/Telenephrology Reason for Consult*: Renal failure, hyponatremia,Hyperkalemia Attending Physician: Marlene Watson MD Primary Care Provider: Yosvany Segovia MD History of Present Illness History of Present Illness Yosvany Soto is a 55 year old male who was sent to [facility] with abnormal labs, mainly low sodium(114), renal failure(Cr 2.3) and hyperkalemia, so telenephrology was consulted. Pt is a poor historian and very non compliant. No mention of any nausea,vomiting or diarrhea prior to admission. No significant NSAID use. No recent imaging with iv dye Review of Systems General: Reports: ROS unobtainable due to mental status Const: Reports: malaise; Denies: fever(s) or chills Card: Denies: chest pain or palpitations Resp: Denies: dyspnea or productive cough GI: Reports: abdominal pain; Denies: nausea, vomiting or diarrhea : Denies: difficulty urinating Skin/Breast: Denies: rash Avinash/Lymph: Denies: easy bleeding All/Imm: Denies: urticaria Meds/Allergies Home Medications and Allergies Home Medications Medication Instructions Recorded Confirmed Last Taken Type pantoprazole 40 mg tablet,delayed 40 mg PO DAILY@01/04/20 03/30/21 03/30/21 History release sildenafil 100 mg tablet 100 mg PO PRN 01/04/20 03/30/21 Unknown History vitamin B complex 1 tab PO DAILY@01/04/20 03/30/21 03/30/21 History tadalafil 20 mg tablet 20 mg PO DAILY PRN #20 tab 01/10/20 03/30/21 Unknown Rx tramadol 100 mg PO DAILY PRN 05/05/20 03/30/21 03/30/21 History Ocuvite Adult 50 Plus 1 cap PO PRN 08/04/20 03/30/21 01/12/21 History folic acid 1 mg PO DAILY@08/23/20 03/30/21 03/30/21 History furosemide [Lasix] 60 mg PO DAILY@08/23/20 03/30/21 03/30/21 History Washoe boot #1 ea 09/01/20 03/30/21 Unknown Rx fluticasone propionate 1 - 2 spray INTRANASAL DAILY 09/08/20 03/30/21 03/30/21 History Cam Walker #1 ea NS 10/02/20 03/30/21 Unknown Rx albuterol sulfate 2 inh INHALATION Q4H PRN 12/11/20 03/30/21 Unknown History tiotropium bromide 2.5 2 puff INHALATION DAILY #4 g 12/28/20 03/30/21 Unknown Rx mcg/actuation mist for inhalation potassium chloride 20 meq PO BID 01/12/21 03/30/21 03/30/21 History PreserVision AREDS 1 cap PO DAILY 02/11/21 03/30/21 03/30/21 History ferrous sulfate 27 mg PO DAILY 02/11/21 03/30/21 03/30/21 History thiamine HCl (vitamin B1) [Vitamin 250 mg PO DAILY 02/11/21 03/30/21 03/30/21 History B-1] lactulose 15 g PO TID #0 ml 02/17/21 03/30/21 Unknown Rx alfuzosin 10 mg tablet,extended 10 mg PO DAILY #30 tab 03/02/21 03/30/21 1 Rx release 24 hr Washoe Boot to the left and an #1 ea 03/23/21 03/30/21 Unknown Rx even-up applied to the right foot diltiazem HCl 120 mg PO DAILY 03/30/21 03/30/21 03/30/21 History midodrine 5 mg PO TID 03/30/21 03/30/21 03/30/21 History spironolactone 25 mg PO DAILY 03/30/21 03/30/21 03/30/21 History Allergies Allergy/AdvReac Type Severity Reaction Status Date / Time Penicillins Allergy ALGY-Difficulty Verified 03/02/21 11:20 Breathing Sulfa (Sulfonamide Allergy Unknown Verified 03/02/21 11:20 Antibiotics) Current Medications Current Medications Generic Name Dose Route Start Last Admin Trade Name Freq PRN Reason Stop Dose Admin Alfuzosin HCl 10 mg 03/31/21 09:00 04/01/21 09:28 Alfuzosin 10 Mg Er Tablet PO 10 mg DAILY DHAVAL Administration Enoxaparin Sodium 30 mg 04/01/21 14:00 04/01/21 14:25 Enoxaparin 30 Mg/0.3 Ml Syringe SUBCUT 30 mg Q24H DHAVAL Administration Folic Acid 1 mg 03/31/21 10:00 04/01/21 09:28 Folic Acid 1 Mg Tablet PO 1 mg DAILY@10 DHAVAL Administration Octreotide Acetate 500 mcg/ 101 mls @ 10.1 mls/hr 03/30/21 23:45 04/01/21 09:13 Sodium Chloride IV 50 mcg/hr .Q10H DHAVAL 10.1 mls/hr Administration 50 MCG/HR Albumin Human 25 gm in 100 mls @ 60 mls/hr 03/30/21 23:45 04/01/21 20:36 Albumin IV 60 mls/hr Q8H DHAVAL Administration Lactulose 20 gm 04/01/21 11:00 04/01/21 17:52 Lactulose Oral Liq 20 Gm/30 Ml Udc PO 20 gm Q6H DHAVAL Administration Midodrine 5 mg 03/31/21 09:00 04/01/21 14:26 Midodrine 5 Mg Tablet PO 5 mg TID DHAVAL Administration Pantoprazole Sodium 40 mg 03/31/21 09:00 04/01/21 09:[address] 40 Mg Tablet PO 40 mg DAILY DHAVAL Administration Propranolol HCl 10 mg 03/31/21 09:00 04/01/21 14:25 Propranolol 20 Mg Tablet PO 10 mg TID DHAVAL Administration Rifaximin 550 mg 04/01/21 18:00 04/01/21 17:52 Rifaximin 550 Mg Tablet PO 550 mg BID DHAVAL Administration Protocol Thiamine Mononitrate 100 mg 03/31/21 09:00 04/01/21 09:28 Thiamine 100 Mg Tablet PO 100 mg DAILY DHAVAL Administration Tramadol HCl 100 mg 03/30/21 23:51 03/31/21 08:24 Tramadol 50 Mg Tablet PO 100 mg DAILY PRN Administration Pain PFSH Acute PFSH: Medical History Acute dyspnea Acute hypokalemia Acute hyponatremia Ascites Ascites due to alcoholic cirrhosis Atrial fibrillation and flutter Atrial fibrillation with RVR BPH loc w urin obs/LUTS Charcot's arthropathy Chest pain Pleuritic chest pain: Resolved; CHF (congestive heart failure), NYHA class III Chronic hyponatremia End-stage liver disease Erectile dysfunction ETOH abuse Fracture of fourth metatarsal bone of left foot History of abdominal paracentesis Hx of esophageal varices Hyperkalemia Hyponatremia Hyponatremia with excess extracellular fluid volume Laceration of left foot Neuropathy Peyronie disease Pleural effusion Pleural effusion associated with hepatic disorder Pneumonia PVD (peripheral vascular disease) Surgical History H/O colonoscopy 10-12 yrs H/O esophagogastroduodenoscopy History of tonsillectomy Hx of umbilical hernia repair Hx of vasectomy Status post surgery (07/05/20) peritoneal catheter for ascites Family History Grandfather CAD (coronary artery disease) Grandmother CAD (coronary artery disease) Cancer Father Cancer Denies family history of Anesthesia complication Bleeding disorder Social History Smoking and tobacco status: current some day smoker Quit status (tobacco): has quit using tobacco Year quit tobacco: 2014 less than a [id number] Second hand smoke exposure: No Smoking risk assessment/counseling performed?: Yes Alcohol intake: current Alcohol intake frequency: 3 or more drinks per day Alcohol type: beer Adopted: No Caregiver/support person: Yes Lives independently: Yes Household members: children Marital status: Current occupational status: unemployed Pets and animals: Yes History of recent travel: No Current gender identity: Male Vitals/I&O/Wt Last Vital Signs Temp 97.7 F 04/01/21 20:00 Pulse 68 04/01/21 20:27 Resp 18 04/01/21 20:27 BP 117/75 04/01/21 20:00 Pulse Ox 96 04/01/21 20:27 04/01/21 04/01/21 04/01/21 06:59 14:59 22:59 Intake Total 143.935 / 1376.377 217.165 / 217.165 Output Total 400 / 1325 825 / 825 300 / 1125 Balance -256.065 / 51.377 -607.835 / -607.835 -300 / -907.835 Physical Exam Narrative: EXAM NARRATIVE: Telesteth did not connect Const: COMMON NORMALS: no acute distress EXAM LIMITATIONS: altered mental status ORIENTATION/CONSCIOUSNESS: Yes confused Extremity: GENERAL: Yes edema Data Micro: Micro: Microbiology 04/01/21 11:27 Gram Stain - Final Peritoneal Fluid A&P Assessment and plan (1) ARF (acute renal failure): probably pre-renal but cannot rule out hepato-renal syndrome. Will give iv fluids to see the response. Hold diuretics for now. Will check urine studies. If no improvement with iv fluids then we will get ultrasound of the kidney Status: Acute (2) Chronic hyponatremia: Low sodium due to liver cirrhosis. Sodium level is at baseline. No need for any further work up. Status: Acute (3) Hyperkalemia: Hold aldactone. Strict low k diet Status: Acute (4) Alcoholic cirrhosis of liver with ascites: Once kidney function improves then we should be ok to restart lasix Status: Acute (5) Anemia: Follow hb Status: Acute Consult Attestations Medical Necessity Statement: Renal failure Coding Level of Care Code Acute Bank Reconciliator for Tay Fwbrenda Diagnoses ARF (acute renal failure) N17.9 Chronic hyponatremia E87.1 Hyperkalemia E87.5 Alcoholic cirrhosis of liver with ascites K70.31 Anemia D64.9
[2021-04-01] MEDS: sodium chloride 0.9% 1,000 ML 75 ML IV (22:47)
[2021-04-02] VITALS (8 sets, daily range): BP systolic 105–153; BP diastolic 55–77; PULSE 75–126; RESP 14–20; TEMP 36.4–36.8; O2SAT 96–99
[2021-04-02] MEDS: cefTRIAXone 1,000 MG in sodium chloride 0.9% (plus) 100 ML 100 MG IV ×2 (00:25→22:36)
[2021-04-02] MEDS: lactulose oral liq 20 gm/30 mL UDC PO ×5 (00:26→22:36)
[2021-04-02] MEDS: octreotide 500 MCG in sodium chloride 0.9% (100 ml) 100 ML 10.1 MCG IV ×2 (00:41→11:52)
[2021-04-02] MEDS: TRAMadol 50 mg Tablet 100 MG PO (03:37)
[2021-04-02 06:47] LABS: Basophils % 0.6 %; Eosinophils # 0.1 10^3/uL (0.0-0.8); Eosinophils % 1.8 %; Hematocrit 21.1 % (42.0-52.0); Hemoglobin 7.1 g/dL (11.7-16.6); Lymphocytes # 0.7 10^3/uL (0.8-4.8); Lymphocytes % 14.3 %; Mean Corpuscular HGB Conc 33.6 g/dL (30.0-36.0); Mean Corpuscular Hemoglobin 33.5 pg (28.0-34.0); Mean Corpuscular Volume 99.5 fL (80-94); Mean Platelet Volume 9.8 fL (7.4-10.4); Monocytes # 0.7 10^3/uL (0.2-0.9); Monocytes % 14.5 %; Neutrophils # 3.48 10^3/uL (1.8-7.7); Neutrophils % 68.2 %; Nucleated Red Blood Cells % 0 %; Platelet Count 156 10^3/cmm (130-400); Red Blood Count 2.12 10^6/uL (4.1-5.3); Red Cell Distribution Width 14.8 % (12.1-15.1); White Blood Count 5.1 10^3/uL (4.0-10.0)
[2021-04-02 07:26] LABS: Alanine Aminotransferase 8 U/L (0-41); Albumin Level 3.6 g/dL (3.5-5.2); Alkaline Phosphatase 65 IU/L (40-130); Anion Gap 16.6 (5-19); Aspartate Amino Transferase 14 U/L (0-40); Blood Urea Nitrogen 29 mg/dL (6-20); Calcium 8.5 mg/dL (8.5-10.5); Carbon Dioxide 21 mmol/L (22-29); Chloride 94 mmol/L (98-107); Globulin 1.4 g/dL (1.3-4.6); Glomerular Filtration Rate 36.9 mL/min (90-130); Glucose 85 mg/dL (65-115); Osmolality Calculated 269 mOsm/kg (285-295); Potassium 4.6 mmol/L (3.5-5.1); Sodium 127 mmol/L (136-145); Total Bilirubin 1.3 mg/dL (0.15-1.2)
[2021-04-02 07:51] LABS: Slide Review Slide Review Perform
[2021-04-02] MEDS: midodrine 5 mg TABLET PO ×3 (08:25→20:28)
[2021-04-02] MEDS: alfuzosin 10 mg ER Tablet PO (08:26)
[2021-04-02] MEDS: pantoprazole DR 40 mg Tablet PO ×2 (08:26→17:00)
[2021-04-02] MEDS: folic acid 1 mg Tablet PO (08:26)
[2021-04-02] MEDS: thiamine 100 mg Tablet PO (08:26)
[2021-04-02] MEDS: propranolol 20 mg Tablet 10 MG PO ×2 (08:26→14:26)
--- NOTE | 2021-04-02 11:05 | PM.PN ---
Subjective Subjective: Interval history: Mr. Soto feels okay with no specific complaints. He still a little drowsy, a little confused. He did receive some intravenous fluid, this is now held. Good oral intake of food so far today. Passing urine with some urinary incontinence but no obstruction. No extremity edema, shortness of breath or other hypervolemic symptoms. Vitals/I&O/Wt Last Vital Signs Temp 98.2 F 04/02/21 08:00 Pulse 82 04/02/21 10:19 Resp 20 H 04/02/21 10:19 BP 105/66 04/02/21 08:00 Pulse Ox 99 04/02/21 10:19 04/01/21 04/02/21 04/02/21 22:59 06:59 14:59 Intake Total 201 / 418.165 300 / 718.165 Output Total 300 / 1125 275 / 1400 Balance -99 / -706.835 25 / -681.835 Physical Exam Narrative: EXAM NARRATIVE: Constitutional: Awake, comfortable HEENT: Wet mucosa, no jvp, non icteric Lungs: Bilaterally clear without discernible wheeze, rales in all lung zones CVS: S1 S2, no murmurs Abdo: Soft, BS ok Ext 4: Minimal edema, peripheral perfusion with no cyanosis Neurological: Grossly non-focal Data : 04/02/21 05:22 04/02/21 05:22 Micro: Microbiology 04/01/21 11:27 Gram Stain - Final Peritoneal Fluid A&P Additional A&P Information 1. Acute kidney injury Low urinary sodium consistent with hepatorenal syndrome, currently being treated with octreotide, midodrine, IV albumin Renal function remains stable, continue these therapies for the time being. A.m. labs Avoid usual nephrotoxic agents Dose medications for GFR less than 30 2. Altered mental status High ammonia from liver cirrhosis, being treated with lactulose and rifaximin 3. ID issues Peritoneal cell count at 224, Enterococcus faecalis, sensitive species, consistent with bacterial peritonitis, on Rocephin 1 g IV daily. 4. Hyponatremia Hypovolemic hyponatremia secondary to liver disease Sodium levels now increasing appropriately and nicely. We will continue to monitor closely. Delfino Hebert MD Nephrology [phone] Patient seen and examined via telemedicine, with the assistance of the bedside RN > 25 min spent in evaluation and mgmt of patient Attestations Medical Necessity Statement*: SAMI anf hypoNa mgmt Coding Level of Care Code Acute Systems Admin for g Yocasta
--- NOTE | 2021-04-02 13:32 | PC.NURSE ---
1332 patients mother updated on patient condition.
[2021-04-02] MEDS: enoxaparin 30 mg/0.3 mL Syringe SUBCUT (14:26)
--- NOTE | 2021-04-02 14:57 | P.PN_ITS ---
Subjective Subjective: Interval history: Zhou stack wakes up appropriately with stimulation. He reports he feels okay but not great. Medications: Reviewed: Yes Vitals/I&O/Wt Last Vital Signs Temp 97.9 F 04/02/21 12:00 Pulse 81 04/02/21 12:00 Resp 14 04/02/21 12:00 BP 153/73 04/02/21 12:00 Pulse Ox 97 04/02/21 12:00 04/01/21 04/02/21 04/02/21 22:59 06:59 14:59 Intake Total 201 / 418.165 300 / 718.165 201 / 201 Output Total 300 / 1125 275 / 1400 225 / 225 Balance -99 / -706.835 25 / -681.835 -24 / -24 Physical Exam Narrative: EXAM NARRATIVE: General exam no apparent distress Neck supple no lymphadenopathy or thyromegaly Cardiovascular regular rate and rhythm, no murmur Lungs clear Abdomen is soft, positive bowel sounds. Peritoneal drain noted Extremities no cyanosis clubbing. 1+ to 2+ edema noted bilaterally Data : 04/02/21 05:22 04/02/21 05:22 Micro: Microbiology 04/01/21 11:27 Gram Stain - Final Peritoneal Fluid Body Fluid Culture - Preliminary Gram Negative Rods A&P Assessment and plan (1) Hepatorenal syndrome: Appreciate nephrology help Discontinue IV fluids currently as renal function improving Recent previous ultrasound did not demonstrate any obstruction Continue albumin octreotide, midodrine Status: Acute (2) Chronic hyponatremia: Sodium improved Discontinue IV fluids Continue fluid restriction Possible restart diuretics tomorrow if continued improvement in renal function. Status: Acute (3) Hyperkalemia: Resolved Status: Acute (4) Pleural effusion: Transudate of on previous thoracentesis. On room air. No plans for thoracentesis currently. Status: Acute (5) Alcoholic cirrhosis of liver with ascites: High meld score. Previously recommended TIPS Has intraperitoneal drain Restart Cardizem for atrial fibrillation. Consider propranolol at a later date, when peritonitis is not present(increased mortality risk) Status: Acute (6) A-fib: Cardizem Status: Acute (7) Hepatic encephalopathy: Improved Status: Acute (8) Anemia: Repeat hemoglobin tomorrow No further Lovenox Monitor for any bleeding, check stool Hemoccult Status: Acute Additional A&P Information Peritonitis. Continue IV antibiotics in the form of ceftriaxone. Discontinue propranolol. Gram-negative rods growing in peritoneal culture Full code SCDs for DVT prophylaxis. No Lovenox secondary to decreasing hemoglobin Attestations Medical Necessity Statement*: Needs continued hospitalization for IV antibiotics secondary to peritonitis Coding Level of Care Code Acute Instrumentation Fitter for Chg Fwd Diagnoses Hepatorenal syndrome K76.7 Chronic hyponatremia E87.1 Hyperkalemia E87.5 Pleural effusion J90 Alcoholic cirrhosis of liver with ascites K70.31 A-fib I48.91 Hepatic encephalopathy K72.90 Anemia D64.9
[2021-04-02] MEDS: dilTIAZem 30 mg Tablet PO ×2 (17:01→20:28)
--- NOTE | 2021-04-02 18:41 | PC.RESP ---
SMOKING CESSATION INFORMATION SENT TO PATIENT.
[2021-04-03] VITALS (10 sets, daily range): BP systolic 109–138; BP diastolic 65–76; PULSE 70–98; RESP 16–20; TEMP 36.6–36.9; O2SAT 94–99
[2021-04-03] MEDS: octreotide 500 MCG in sodium chloride 0.9% (100 ml) 100 ML 10.1 MCG IV (00:07)
[2021-04-03] MEDS: TRAMadol 50 mg Tablet 100 MG PO ×2 (00:45→18:09)
[2021-04-03] MEDS: lactulose oral liq 20 gm/30 mL UDC PO ×4 (04:32→22:48)
--- NOTE | 2021-04-03 05:14 | PC.NURSE ---
SHIFT SUMMARY Has done well tonight. Has been oriented except for the time and date. Knows month & year but says can't keep up with days. Has been pleasant and cooperative. Remains on 1200ml fluid restriction and does not like it at all. Somehow got his IV pulled out and required restarting this am. Continues to receive IV meds. Was up to BSC X1 this am and had a very large BM. Gets po Lactulose q6h.
[2021-04-03 06:59] LABS: Basophils % 0.8 %; Eosinophils # 0.1 10^3/uL (0.0-0.8); Eosinophils % 2.1 %; Hematocrit 23.5 % (42.0-52.0); Hemoglobin 7.5 g/dL (11.7-16.6); Lymphocytes # 0.7 10^3/uL (0.8-4.8); Lymphocytes % 12.5 %; Mean Corpuscular HGB Conc 31.9 g/dL (30.0-36.0); Mean Corpuscular Hemoglobin 32.8 pg (28.0-34.0); Mean Corpuscular Volume 102.6 fL (80-94); Mean Platelet Volume 9.6 fL (7.4-10.4); Monocytes # 0.8 10^3/uL (0.2-0.9); Monocytes % 14.8 %; Neutrophils # 3.67 10^3/uL (1.8-7.7); Neutrophils % 69.4 %; Nucleated Red Blood Cells % 0 %; Platelet Count 153 10^3/cmm (130-400); Red Blood Count 2.29 10^6/uL (4.1-5.3); White Blood Count 5.3 10^3/uL (4.0-10.0)
[2021-04-03 07:27] LABS: Alanine Aminotransferase 10 U/L (0-41); Albumin Level 4.1 g/dL (3.5-5.2); Alkaline Phosphatase 79 IU/L (40-130); Anion Gap 15.3 (5-19); Aspartate Amino Transferase 17 U/L (0-40); Blood Urea Nitrogen 26 mg/dL (6-20); Calcium 8.6 mg/dL (8.5-10.5); Carbon Dioxide 22 mmol/L (22-29); Chloride 101 mmol/L (98-107); Globulin 1.5 g/dL (1.3-4.6); Glomerular Filtration Rate 41.9 mL/min (90-130); Glucose 106 mg/dL (65-115); Osmolality Calculated 283 mOsm/kg (285-295); Potassium 4.3 mmol/L (3.5-5.1); Sodium 134 mmol/L (136-145); Total Bilirubin 0.8 mg/dL (0.15-1.2); Total Protein 5.6 g/dL (6.6-8.7)
[2021-04-03] MEDS: pantoprazole DR 40 mg Tablet PO ×2 (08:51→17:27)
[2021-04-03] MEDS: midodrine 5 mg TABLET PO ×3 (08:51→21:28)
[2021-04-03] MEDS: thiamine 100 mg Tablet PO (08:51)
[2021-04-03] MEDS: dilTIAZem 30 mg Tablet PO ×4 (08:51→21:28)
[2021-04-03] MEDS: alfuzosin 10 mg ER Tablet PO (08:53)
--- NOTE | 2021-04-03 09:14 | PC.NURSE ---
Breakfast Unable to document amount, TOMMIE Guajardo removed tray from room
--- NOTE | 2021-04-03 09:34 | PM.PN ---
Subjective Subjective: Interval history: Mr. Soto feels much better today, much more lucid. Eating and drinking well. Minimal extremity edema, no shortness of breath. Medications: Reviewed: Yes Vitals/I&O/Wt Last Vital Signs Temp 98.4 F 04/03/21 07:30 Pulse 85 04/03/21 07:30 Resp 20 H 04/03/21 07:30 BP 127/76 04/03/21 07:30 Pulse Ox 99 04/03/21 07:30 04/02/21 04/03/21 04/03/21 22:59 06:59 14:59 Intake Total 521 / 1722 440 / 2162 300 / 300 Output Total 225 / 650 300 / 950 Balance 296 / 1072 140 / 1212 300 / 300 Physical Exam Narrative: EXAM NARRATIVE: Constitutional: Awake, comfortable HEENT: Wet mucosa, no jvp, non icteric Lungs: Bilaterally clear without discernible wheeze, rales in all lung zones CVS: S1 S2, no murmurs Abdo: Soft, BS ok Ext 4: Minimal edema, peripheral perfusion with no cyanosis Neurological: Grossly non-focal Data : 04/03/21 05:55 04/03/21 05:55 Micro: Microbiology 04/01/21 11:27 Gram Stain - Final Peritoneal Fluid Body Fluid Culture - Preliminary Gram Negative Rods A&P Additional A&P Information 1. Acute kidney injury Creatinine now recovering nicely DC ocreotide, cont midodrine for now A.m. labs Avoid usual nephrotoxic agents Dose medications for GFR less than 30 2. Altered mental status High ammonia from liver cirrhosis, being treated with lactulose and rifaximin, clinically improved today 3. ID issues Peritoneal cell count at 224, Enterococcus faecalis, sensitive species, consistent with bacterial peritonitis, on Rocephin 1 g IV daily. 4. Hyponatremia Hypovolemic hyponatremia secondary to liver disease Sodium levels now increasing appropriately and nicely. We will continue to monitor closely. OK to liberalize water intake to 2L daily Acute renal issues have now mostly resolved. I will continue to follow peripherally at this time. Please not hesitate to call our team should we be of further assistance in his care. Delfino Hebert MD Nephrology [phone] Patient seen and examined via telemedicine, with the assistance of the bedside RN > 25 min spent in evaluation and mgmt of patient Attestations Medical Necessity Statement*: eval for SAMI, hypoNA Coding Level of Care Code Acute Community Facilitator for Chg Yocasta
--- NOTE | 2021-04-03 10:10 | PC.CHAP ---
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 marketing liaison visit [] Patient/Family/Request visit [] Outpatient visit [] Follow-up visit [] Physician referral [] Code/Alert [x] Routine visit [] Staff referral [] Actively dying [] Patient sleeping [] Family support [] [] Out of room [] Palliative care [] [] Receiving care in room [] Pre-surgical visit [] Trauma [] Long length of stay [] ICU visit [] Other: Relational/Emotional Strength [x] Patient feels connected with others/family/visitors/staff [] Distress [] Loneliness/isolation [] Abandonment Spirituality of Patient [x] Person of Jana [] Attends Sabianism of their Jana [] Believes in Prayer [] Reads Bible or Methodist materials [x] There are Spiritual issues to be addressed x Production Maintenance Technician Interventions [x] Prayer [x] Active listening [x] Non-anxious presence [] Spiritual/emotional support [] Crisis/trauma care [] Spiritual counseling [] Bereavement support [] Provided bereavement packet [] Provided Bible/devotional materials [] Provided toy/stuffed animal, coloring book to patient or family member [] Provided Communion [] Anointing/[place] [] Salvation [x] Completed spiritual assessment [] Other: Impact on Illness or Injury [] Angry [] Fearful [] Anxious [] Often cries [] Exhaustion [] Unable to work [] Unable to attend rastafari [] Unable to walk/stand [] Unable to read [] Unable to drive [] Unable to eat/drink [] Unable to sleep [] Unable to be with family [] Patient intubated [] Other: Summary Time spent with patient 15 min
[2021-04-03] MEDS: folic acid 1 mg Tablet PO (11:06)
--- NOTE | 2021-04-03 13:26 | PM.PN ---
Subjective Subjective: Interval history: Patient reports he is feeling better today more alert. Denies any pain. Medications: Reviewed: Yes Vitals/I&O/Wt Last Vital Signs Temp 98.2 F 04/03/21 11:31 Pulse 83 04/03/21 11:31 Resp 20 H 04/03/21 11:31 BP 116/65 04/03/21 11:31 Pulse Ox 99 04/03/21 11:31 04/02/21 04/03/21 04/03/21 22:59 06:59 14:59 Intake Total 521 / 1722 440 / 2162 698 / 698 Output Total 225 / 650 300 / 950 Balance 296 / 1072 140 / 1212 698 / 698 Physical Exam Narrative: EXAM NARRATIVE: General exam no apparent distress Neck supple no lymphadenopathy or thyromegaly Cardiovascular regular rate and rhythm, no murmur Lungs clear Abdomen is soft, positive bowel sounds. Peritoneal drain noted Extremities no cyanosis clubbing. 1 edema noted bilaterally Data : 04/03/21 05:55 04/03/21 05:55 Micro: Microbiology 04/01/21 11:27 Gram Stain - Final Peritoneal Fluid Body Fluid Culture - Preliminary Klebsiella oxytoca esbl A&P Assessment and plan (1) Hepatorenal syndrome: Appreciate nephrology help Discontinue IV fluids currently as renal function improving Recent previous ultrasound did not demonstrate any obstruction Continue albumin octreotide, midodrine Status: Acute (2) Chronic hyponatremia: Greatly improved. Continue fluid restriction IV fluids have been discontinuedestriction Hold diuretics again today. Possible restart tomorrow after evaluation of electrolytes. Status: Acute (3) Hyperkalemia: Resolved Status: Acute (4) Pleural effusion: Transudate of on previous thoracentesis. On room air. No plans for thoracentesis currently. Status: Acute (5) Alcoholic cirrhosis of liver with ascites: High meld score. Previously recommended TIPS Has intraperitoneal drain Restart Cardizem for atrial fibrillation. Consider propranolol at a later date, when peritonitis is not present(increased mortality risk) Status: Acute (6) A-fib: Cardizem Status: Acute (7) Hepatic encephalopathy: Improved Status: Acute (8) Anemia: Hemoglobin improved today No further Lovenox Monitor for any bleeding, check stool Hemoccult Status: Acute Additional A&P Information Peritonitis. Discontinue propranolol. Culture positive for ESBL. Change to imipenem Full code SCDs for DVT prophylaxis. No Lovenox secondary to decreasing hemoglobin Attestations Medical Necessity Statement*: Needs continued hospital stay for IV antibiotics for peritonitis. Coding Level of Care Code Acute Propeller Tester for Chg Fwd Diagnoses Hepatorenal syndrome K76.7 Chronic hyponatremia E87.1 Hyperkalemia E87.5 Pleural effusion J90 Alcoholic cirrhosis of liver with ascites K70.31 A-fib I48.91 Hepatic encephalopathy K72.90 Anemia D64.9
[2021-04-03] MEDS: guaiFENesin-dextromethorphan UDC 10 mL 5 ML PO (16:29)
[2021-04-03] MEDS: ipratropium-albuterol 3 mL Neb INHALATION (19:57)
[2021-04-04 04:00] VITALS: BP 112/71; PULSE 82; RESP 18; TEMP 36.9; O2SAT 98
[2021-04-04] MEDS: lactulose oral liq 20 gm/30 mL UDC PO (04:40)
[2021-04-04 05:41] LABS: Basophils # 0.1 10^3/uL (0.0-0.1); Basophils % 1.2 %; Eosinophils # 0.2 10^3/uL (0.0-0.8); Eosinophils % 4.1 %; Hemoglobin 7.2 g/dL (11.7-16.6); Lymphocytes # 0.6 10^3/uL (0.8-4.8); Mean Corpuscular HGB Conc 31.3 g/dL (30.0-36.0); Mean Corpuscular Hemoglobin 32.4 pg (28.0-34.0); Mean Corpuscular Volume 103.6 fL (80-94); Mean Platelet Volume 9.4 fL (7.4-10.4); Monocytes # 0.8 10^3/uL (0.2-0.9); Monocytes % 15.5 %; Neutrophils # 3.39 10^3/uL (1.8-7.7); Neutrophils % 66.4 %; Nucleated Red Blood Cells % 0 %; Platelet Count 148 10^3/cmm (130-400); Red Blood Count 2.22 10^6/uL (4.1-5.3); Red Cell Distribution Width 15.3 % (12.1-15.1); White Blood Count 5.1 10^3/uL (4.0-10.0)
[2021-04-04 06:03] LABS: Anion Gap 14.4 (5-19); Blood Urea Nitrogen 18 mg/dL (6-20); Calcium 8.4 mg/dL (8.5-10.5); Carbon Dioxide 23 mmol/L (22-29); Chloride 100 mmol/L (98-107); Glomerular Filtration Rate 52.2 mL/min (90-130); Glucose 132 mg/dL (65-115); Osmolality Calculated 280 mOsm/kg (285-295); Potassium 4.4 mmol/L (3.5-5.1); Sodium 133 mmol/L (136-145)
[2021-04-04 07:32] VITALS: PULSE 115; RESP 16; O2SAT 95
[2021-04-04 07:40] VITALS: BP 150/90; PULSE 96; RESP 18; TEMP 37.2; O2SAT 99
--- NOTE | 2021-04-04 08:18 | P.DS_ITS ---
Discharge Providers Date of Admission: 03/31/21 00:32 Date of Discharge: April 04, 2021 Attending Provider at Admission: Marlene Watson MD Attending Provider at Discharge: Warren Weir MD Primary Care Provider: Yosvany Segovia MD Diagnoses at Discharge Discharge Diagnosis (1) Hepatorenal syndrome: Status: Acute (2) Chronic hyponatremia: Status: Acute (3) Hyperkalemia: Status: Acute (4) Pleural effusion: Status: Acute (5) Alcoholic cirrhosis of liver with ascites: Status: Acute (6) A-fib: Status: Acute (7) Hepatic encephalopathy: Status: Acute (8) Anemia: Status: Acute Reason for Visit Reason for Visit: LOW SODIUM LEVEL Hospital Course Hospital Course Yosvany is a 56-year-old male with history of previous peritonitis with a peritoneal drain secondary to ascites and end-stage liver disease who presented to the hospital with confusion, evidence of hepatic encephalopathy, hepatorenal syndrome and hyperkalemia. Sodium was markedly low as well at 119. On admission he was treated with albumin, octreotide, midodrine. Fluids were restricted. Peritoneal fluid was analyzed and consistent with bacterial peritonitis. Nephrology was consulted and diuretics were held, and IV fluid was cautiously given. Rifaximin was given for his hepatic encephalopathy along with the lactulose. With the above treatment he gradually improved. By the end of hospital stay renal function had returned to near normal. Mental function was at baseline. Peritoneal fluid had grown Klebsiella, ESBL. He will finish up 5 days of Cipro orally, and then go on 500 mg once daily for prophylaxis. He will follow-up with his primary care provider in 4 to 7 days with a CBC and BMP. Discharge hemoglobin was 7.2, with no evidence of active bleeding and creatinine was 1.4. He will follow a fluid restriction. He will resume his Lasix but not his potassium and Aldactone initially. Rifaximin will be added to his regimen as an outpatient as well. He will follow-up with his loan officer assistant as soon as possible. Physical Exam Narrative: EXAM NARRATIVE: General exam is no apparent distress Neck is supple no lymphadenopathy or thyromegaly Cardiovascular regular rate and rhythm without murmur Lungs clear Abdomen is soft, positive bowel sounds. Drain noted. Extremities no cyanosis clubbing. Only trace edema. Discharge Data Data Completed and Pending: Completed Studies During Hospitalization Category Date Time Status XR chest 1V kasia ble [id number] Stat Exams 03/30/21 20:07 Completed Pending at discharge Category Date Time Status Body Fluid Cultur e & GS Routine Lab 04/01/21 11:27 Results Labs from last 24 hours 04/04/21 04/04/21 04:55 04:55 WBC 5.1 RBC 2.22 L Hgb 7.2 L Hct 23.0 L MCV 103.6 H MCH 32.4 MCHC 31.3 RDW 15.3 H Plt Count 148 MPV 9.4 Neut % (Auto) 66.4 Lymph % (Auto) 12.0 [place] % (Auto) 15.5 Eos % (Auto) 4.1 Baso % (Auto) 1.2 Neut # (Auto) 3.39 Lymph # (Auto) 0.6 L [place] # (Auto) 0.8 Eos # (Auto) 0.2 Baso # (Auto) 0.1 Nucleated RBC % (a uto) 0 Nucleated RBCs # 0.0 Sodium 133 L Potassium 4.4 Chloride 100 Carbon Dioxide 23 Anion Gap 14.4 BUN 18 Creatinine 1.4 H GFR Calculation 52.2 L Glucose 132 H Calculated Osmolal ity 280 L Calcium 8.4 L Vitals: Last Vital Signs Temp 98.9 F 04/04/21 07:40 Pulse 96 04/04/21 07:40 Resp 18 04/04/21 07:40 BP 150/90 04/04/21 07:40 Pulse Ox 99 04/04/21 07:40 Discharge Plan Discharge Patient Disposition: Home Condition: Stable Prescriptions: New Xifaxan 550 mg Tablet 550 mg PO BID Qty: 60 RF: 0 furosemide 40 mg Tablet 40 mg PO DAILY@0800 Qty: 30 RF: 0 ciprofloxacin HCl [Cipro] 500 mg tablet 500 mg PO BID Qty: 35 RF: 0 Continued sildenafil 100 mg tablet 100 mg PO PRN RF: 0 pantoprazole 40 mg tablet,delayed release (DR/EC) 40 mg PO DAILY@10 RF: 0 vitamin B complex [B Complex-Vitamin B12] Tablet 1 tab PO DAILY@16 RF: 0 (DME) Eliezer Hagen See Rx Instructions .Route .MEDSUPPLY Qty: 1 RF: 0 Spiriva Respimat 2.5 mcg/actuation mist 2 puff inhalation DAILY Qty: 4 RF: 3 alfuzosin 10 mg tablet extended release 24 hr 10 mg PO DAILY Qty: 30 RF: 12 (DME) [place] boot See Rx Instructions .Route .MEDSUPPLY Qty: 1 RF: 0 (DME) [place] Boot to the left and an even-up applied to the right foot See Rx Instructions .Route .MEDSUPPLY Qty: 1 RF: 0 tramadol 50 mg Tablet 100 mg PO DAILY PRN (Reason: Pain) RF: 0 Ocuvite Adult 50 Plus 250-5-1 mg Capsule 1 cap PO PRN RF: 0 folic acid 1 mg tablet 1 mg PO DAILY@10 RF: 0 midodrine 5 mg tablet 5 mg PO TID RF: 0 diltiazem HCl 120 mg tablet 120 mg PO DAILY RF: 0 fluticasone propionate 50 mcg/actuation spray,suspension 1 - 2 spray intranasal DAILY RF: 0 albuterol sulfate 90 mcg/actuation HFA aerosol inhaler 2 inh INHALATION Q4H PRN (Reason: shortness of breath/wheezing) RF: 0 thiamine HCl (vitamin B1) [Vitamin B-1] 250 mg Tablet 250 mg PO DAILY RF: 0 PreserVision AREDS [id number] Capsule 1 cap PO DAILY RF: 0 ferrous sulfate 27 mg iron Tablet 27 mg PO DAILY RF: 0 Changed lactulose 20 gram/30 mL Solution 15 g PO QID Qty: 0 RF: 0 Discontinued tadalafil 20 mg tablet 20 mg PO DAILY PRN (Reason: sexual activity) Qty: 20 RF: 12 furosemide [Lasix] 40 mg tablet 60 mg PO DAILY@10 RF: 0 Hold Instructions: Resume on 12/18/20. spironolactone 25 mg tablet 25 mg PO DAILY RF: 0 potassium chloride 20 mEq Tablet Extended Release 20 meq PO BID RF: 0 Discharge Orders: Discharge Order (Routine); Ordered 04/04/21 Ordered By: Warren Weir Referrals: Yosvany Segovia MD [Primary Care Provider] - 4-7 days (BMP, CBC on follow- up) Discharge Diet: Cardiac and Low Salt Discharge Activity: Increase activity as tolerated Patient Instructions: Opioid Safety Activity Restrictions/Additional Instructions: 1500 cc fluid restriction Avoid salt Follow-up with your loan officer assistant as soon as possible Drain peritoneal fluid prior to discharge. Discharge Attestations Time Spent in Discharge Care*: greater than 30 min Status at Discharge: Cognitive status at discharge: cognitively intact , Behavioral status at discharge: cooperative , Quality Metrics Clinical Quality Measures During this hospital stay, did patient experience: None Coding Level of Care Code Acute g FW VT note Diagnoses Hepatorenal syndrome K76.7 Chronic hyponatremia E87.1 Hyperkalemia E87.5 Pleural effusion J90 Alcoholic cirrhosis of liver with ascites K70.31 A-fib I48.91 Hepatic encephalopathy K72.90 Anemia D64.9
[2021-04-04 09:00] VITALS: BP 130/74; PULSE 88; RESP 18; TEMP 36.9; O2SAT 97
[2021-04-04] MEDS: midodrine 5 mg TABLET PO (09:00)
[2021-04-04] MEDS: FUROsemide 40 mg Tablet PO (09:00)
[2021-04-04] MEDS: dilTIAZem ER (24HR) 120 mg Capsule PO (09:00)
[2021-04-04] MEDS: pantoprazole DR 40 mg Tablet PO (09:01)
[2021-04-04] MEDS: spironolactone 25 mg Tablet PO (09:01)
[2021-04-04] MEDS: thiamine 100 mg Tablet PO (09:01)
[2021-04-04] MEDS: folic acid 1 mg Tablet PO (09:01)
[2021-04-04 10:59] VITALS: BP 142/80; PULSE 86; RESP 18; TEMP 36.5; O2SAT 97
[2021-04-04] MEDS: alfuzosin 10 mg ER Tablet PO (11:22)
--- NOTE | 2021-04-04 12:06 | PC.NURSE ---
Drain 1600 ml drained by patient while in the shower. Patient does this himself at home.
[2021-04-04 14:19] VITALS: BP 142/80; PULSE 86; RESP 18; TEMP 36.5; O2SAT 97
== END 2021-04-04 13:45 | disposition home or self-care (01) | DRG 442 ==
LOC: ER 23:01 → MEDSURG 03-31 00:32
PROVIDERS: Emergency Medicine; Admitting Provider Student in an Organized Health Care Education/Training Program; Emergency Provider Nurse Practitioner Family; PCP Family Medicine; Visit Provider Internal Medicine
DX: K76.7 Hepatorenal syndrome (principal); T85.79XA Infection and inflammatory reaction due to other internal prosthetic devices, implants and grafts, initial encounter; E87.1 Hypo-osmolality and hyponatremia; N17.9 Acute kidney failure, unspecified; K76.6 Portal hypertension; K70.31 Alcoholic cirrhosis of liver with ascites; I48.91 Unspecified atrial fibrillation; N40.1 Benign prostatic hyperplasia with lower urinary tract symptoms; M14.672 Charcot's joint, left ankle and foot; G62.9 Polyneuropathy, unspecified; Z87.01 Personal history of pneumonia (recurrent); I73.9 Peripheral vascular disease, unspecified; F17.210 Nicotine dependence, cigarettes, uncomplicated; Y81.1 Therapeutic (nonsurgical) and rehabilitative general- and plastic-surgery devices associated with adverse incidents; K72.90 Hepatic failure, unspecified without coma; D64.9 Anemia, unspecified; B95.2 Enterococcus as the cause of diseases classified elsewhere; E87.5 Hyperkalemia; B96.1 Klebsiella pneumoniae [K. pneumoniae] as the cause of diseases classified elsewhere; Z79.51 Long term (current) use of inhaled steroids
CPT/HCPCS: 36415; 36416; 51701; 71045; 80048; 80053; 80500; 81003; 82140; 82274; 82436; 82962; 83735; 84133; 84300; 85025; 87070; 87075; 87077; 87186; 87205; 89050; 93005; 94640; 96361; 96365; 96372; 96375; 97116; 97162; 99285; J0696; J0743; J1650; J1815; J2354; J2405; J7030; P9047; Q3014

== ENCOUNTER → 2021-05-07 15:25 | Outpatient (BNVA) | payer OTHER, SELFPAY | PROVIDERS: PCP Family Medicine; Visit Provider Podiatrist Foot & Ankle Surgery | DX: S92.335D Nondisplaced fracture of third metatarsal bone, left foot, subsequent encounter for fracture with routine healing (principal); S92.345D Nondisplaced fracture of fourth metatarsal bone, left foot, subsequent encounter for fracture with routine healing; S92.325D Nondisplaced fracture of second metatarsal bone, left foot, subsequent encounter for fracture with routine healing; M14.672 Charcot's joint, left ankle and foot; X58.XXXD Exposure to other specified factors, subsequent encounter | CPT/HCPCS: 73630 ==

== ENCOUNTER 2021-05-24 13:17 | Inpatient (IN) | payer OTHER, SELFPAY ==
[2021-05-24 13:20] VITALS: BP 93/54; PULSE 93; RESP 16; TEMP 36.4; O2SAT 98; BMI 35.9
--- NOTE | 2021-05-24 13:32 | ECG_ITS ---
[facility] Test Date: 2021-05-24 Pat Name: Yosvany Soto Department: Room: Gender: Male Wet Washer Machine: : [id number] Requested By: Ghassan Brooks Order Number: [id number] Cade MD: Compa Escamilla M.D. Measurements Intervals [place] Rate: 73 P: NM: QRS: 100 QRSD: 133 T: 15 QT: 374 QTc: 413 Interpretive Statements ATRIAL FIBRILLATION BORDERLINE RIGHT AXIS DEVIATION [QRS AXIS > 90] INTRAVENTRICULAR CONDUCTION DELAY [130+ ms QRS DURATION] ANTEROSEPTAL MYOCARDIAL INFARCTION , PROBABLY OLD [40+ ms Q WAVE IN V1-V4] Compared to ECG 03/30/2021 22:52:44 Intraventricular conduction delay now present Myocardial infarct finding still present Electronically Signed On 05-24-2021 20:04:28 CDT by Compa Escamilla M.D. [id number]
--- NOTE | 2021-05-24 13:32 | XR_ITS ---
WS: [id number] Portable AP semiupright chest, 05/24/2021 Clinical Data: dyspnea/cough Comparison: Portable chest, 03/30/2021. Findings: No nodules, masses or effusions are seen. The heart is normal. The pulmonary vascularity is not increased. No pneumonia or pneumothorax is seen. XR/XR chest 1V portable [id number] Impression: Negative chest.
--- NOTE | 2021-05-24 13:42 | ED_ITS ---
HPI - Nausea/Vomiting/Diarrhea General: Chief complaint: Weakness Stated complaint: GENERALIZED WEAKNESS Time Seen by Provider: 05/24/21 13:23 History of Present Illness: HPI Narrative: 56-year-old male presents to the emergency room with complaints of generally not feeling well and weak. A few days ago he was seen by his primary care doc was told he was hyponatremic and advised to come to the hospital he chose not to do so and returns today because he is getting progressively worse. He denies any chest pain or shortness of breath. MD elicited complaint: nausea and vomiting Onset (ago): week(s) Description of vomiting: watery Associated nausea: No Location of pain: None Exacerbating factors: none Relieving factors: none Associated symtoms: Reports bloating, anorexia, malaise and weakness; Denies altered mental status, anxiety, change in vision, chest pain, cough, diaphoresis, decreased urine output, dizziness, dysuria, epistaxis, fatigue, fecal incontinence, fevers/chills, headache(s), myalgias, nausea, numbness, palpitations, rash, short of breath, syncope, tenesmus or tinnitus Review of Systems Const: Reports: malaise; Denies: fatigue or diaphoresis Eyes: Denies: change in vision ENMT: Denies: tinnitus or epistaxis Card: Denies: chest pain, palpitations or syncope Resp: Denies: dyspnea, productive cough or non-productive cough GI: Reports: bloating; Denies: nausea or fecal incontinence : Denies: dysuria Skin/Breast: Denies: rash or pruritus Neuro: Denies: headache(s) or dizziness Psych: Denies: anxiety PFSH ED PFSH: Medical History Acute dyspnea Acute encephalopathy Acute hypokalemia Acute hyponatremia Ascites Ascites due to alcoholic cirrhosis Ataxia Atrial fibrillation and flutter Atrial fibrillation with RVR BPH loc w urin obs/LUTS Charcot's arthropathy Charcot's joint of left foot Chest pain Pleuritic chest pain: Resolved; CHF (congestive heart failure), NYHA class III Chronic hyponatremia End-stage liver disease Erectile dysfunction ETOH abuse Fracture of fourth metatarsal bone of left foot Fracture of second metatarsal bone of left foot Fracture of third metatarsal bone of left foot Hepatorenal syndrome History of abdominal paracentesis Hx of esophageal varices Hyperkalemia Hyponatremia Hyponatremia with excess extracellular fluid volume Laceration of left foot Neuropathy Non-pressure chronic ulcer of other part of left foot limited to breakdown of skin Peritoneal dialysis catheter in situ Peyronie disease Pleural effusion Pleural effusion associated with hepatic disorder Pneumonia PVD (peripheral vascular disease) Surgical History H/O colonoscopy 10-12 yrs H/O esophagogastroduodenoscopy History of tonsillectomy Hx of umbilical hernia repair Hx of vasectomy Status post surgery (07/05/20) peritoneal catheter for ascites Family History Grandfather CAD (coronary artery disease) Grandmother CAD (coronary artery disease) Cancer Father Cancer Denies family history of Anesthesia complication Bleeding disorder Social History Quit status (tobacco): has quit using tobacco Year quit tobacco: 2014 less than a [id number] Second hand smoke exposure: No Smoking risk assessment/counseling performed?: Yes Alcohol intake: current Alcohol intake frequency: 3 or more drinks per day Alcohol type: beer Adopted: No Caregiver/support person: Yes Lives independently: Yes Household members: children Marital status: Current occupational status: unemployed Pets and animals: Yes History of recent travel: No Current gender identity: Male Physical Exam Const: COMMON NORMALS: no acute distress EXAM LIMITATIONS: no altered mental status GENERAL APPEARANCE: cooperative and comfortable ORIENTATION/CONSCIOUSNESS: Yes awake, Yes oriented to person, Yes oriented to place and Yes oriented to time HENMT: COMMON NORMALS: normocephalic, atraumatic and hearing grossly normal bilaterally HEAD & SCALP: normocephalic and atraumatic Neck/C-Spine: COMMON NORMALS: no JVD Resp: COMMON NORMALS: normal respiratory effort, No retractions, No use of accessory muscles and clear to auscultation bilaterally AUSCULTATION: clear to auscultation bilaterally Cardio: COMMON NORMALS: no JVD, regular rate, regular rhythm and No murmurs present (Cardio) RATE: regular rate RHYTHM: regular rhythm GI: PALPATION: No Tenderness to palpation present (GI), No Guarding due to palpation present (GI), Yes Hepatomegaly present and Yes Ascites present Extremity: COMMON NORMALS: normal to inspection, capillary refill normal, no clubbing, cyanosis or edema, no calf tenderness and no pedal edema Neuro: SENSORIUM/ORIENTATION: Yes oriented to person, Yes oriented to place and Yes oriented to time Skin: COMMON NORMALS: no rashes or lesions noted GENERAL SKIN EXAM: no rashes or lesions noted Course Vital Signs: Vital signs: Vital Signs Temperature 97.6 F 05/24/21 13:20 Pulse Rate 63 05/24/21 14:28 Respiratory Rate 20 H 05/24/21 14:28 Blood Pressure 98/55 05/24/21 14:28 Pulse Oximetry 91 05/24/21 14:28 MDM - Nausea/Vomiting/Diarrhea Lab Data: Labs: Lab Results 05/24/21 05/24/21 05/24/21 Range/Units 14:05 14:05 14:05 WBC 12.8 H (4.0-10.0) 10^3/ uL RBC 2.31 L (4.1-5.3) 10^6/u L Hgb 7.3 L (11.7-16.6) g/dL Hct 21.1 L (42.0-52.0) % MCV 91.3 (80-94) fl MCH 31.6 (28.0-34.0) pg MCHC 34.6 (30.0-36.0) g/dL RDW 14.6 (12.1-15.1) % Plt Count 171 (130-400) 10^3/c mm MPV 9.1 (7.4-10.4) fL Neut % (Auto) 83.5 % Lymph % (Auto) 2.5 % [place] % (Auto) 11.7 % Eos % (Auto) 0.9 % Baso % (Auto) 0.2 % Neut # (Auto) 10.68 H (1.8-7.7) 10^3/u L Lymph # (Auto) 0.3 L (0.8-4.8) 10^3/u L [place] # (Auto) 1.5 H (0.2-0.9) 10^3/u L Eos # (Auto) 0.1 (0.0-0.8) 10^3/u L Baso # (Auto) 0.0 (0.0-0.1) 10^3/u L Nucleated RBC % (a uto) 0 % Nucleated RBCs # 0.0 /100WBC PT 18.70 H (12.1-14.9) SECO NDS INR 1.52 H (0.8-1.2) APTT 48.6 H (23.9-36.7) SECO NDS Sodium 113 L* (136-145) mmol/L Potassium 7.1 H* (3.5-5.1) mmol/L Chloride 82 L (98-107) mmol/L Carbon Dioxide 22 (22-29) mmol/L Anion Gap 16.1 (5-19) BUN 28 H (6-20) mg/dL Creatinine 2.0 H (0.7-1.2) mg/dL GFR Calculation 34.6 L (90-130) mL/min Glucose 71 (65-115) mg/dL Calculated Osmolal ity 240 L (285-295) mOsm/k g Calcium 8.1 L (8.5-10.5) mg/dL Magnesium 1.9 (1.7-2.3) mg/dL Total Bilirubin 1.1 (0.15-1.2) mg/dL AST 22 (0-40) U/L ALT 12 (0-41) U/L Alkaline Phosphata se 109 (40-130) IU/L Ammonia (16-60) umol/L Creatine Kinase 15 L (39-308) U/L Total Protein 5.2 L (6.6-8.7) g/dL Albumin 2.4 L (3.5-5.2) g/dL Globulin 2.8 (1.3-4.6) g/dL Lipase 12 L (13-60) U/L Urine Color (Yellow) Urine Appearance (CLEAR) Urine pH (5-7) Ur Specific Gravit y (1.005-1.030) Urine Protein (Negative) Urine Glucose (UA) (Normal) Urine Ketones (Negative) Urine Blood (Negative) Urine Nitrate (Negative) Urine Bilirubin (Negative) Urine Urobilinogen (Negative) mg/dL Ur Leukocyte Kristy ase (Negative) 05/24/21 05/24/21 Range/Units 14:05 15:45 WBC (4.0-10.0) 10^3/ uL RBC (4.1-5.3) 10^6/u L Hgb (11.7-16.6) g/dL Hct (42.0-52.0) % MCV (80-94) fl MCH (28.0-34.0) pg MCHC (30.0-36.0) g/dL RDW (12.1-15.1) % Plt Count (130-400) 10^3/c mm MPV (7.4-10.4) fL Neut % (Auto) % Lymph % (Auto) % [place] % (Auto) % Eos % (Auto) % Baso % (Auto) % Neut # (Auto) (1.8-7.7) 10^3/u L Lymph # (Auto) (0.8-4.8) 10^3/u L [place] # (Auto) (0.2-0.9) 10^3/u L Eos # (Auto) (0.0-0.8) 10^3/u L Baso # (Auto) (0.0-0.1) 10^3/u L Nucleated RBC % (a uto) % Nucleated RBCs # /100WBC PT (12.1-14.9) SECO NDS INR (0.8-1.2) APTT (23.9-36.7) SECO NDS Sodium (136-145) mmol/L Potassium (3.5-5.1) mmol/L Chloride (98-107) mmol/L Carbon Dioxide (22-29) mmol/L Anion Gap (5-19) BUN (6-20) mg/dL Creatinine (0.7-1.2) mg/dL GFR Calculation (90-130) mL/min Glucose (65-115) mg/dL Calculated Osmolal ity (285-295) mOsm/k g Calcium (8.5-10.5) mg/dL Magnesium (1.7-2.3) mg/dL Total Bilirubin (0.15-1.2) mg/dL AST (0-40) U/L ALT (0-41) U/L Alkaline Phosphata se (40-130) IU/L Ammonia 29 (16-60) umol/L Creatine Kinase (39-308) U/L Total Protein (6.6-8.7) g/dL Albumin (3.5-5.2) g/dL Globulin (1.3-4.6) g/dL Lipase (13-60) U/L Urine Color Yellow (Yellow) Urine Appearance Clear (CLEAR) Urine pH 5 (5-7) Ur Specific Gravit y 1.005 (1.005-1.030) Urine Protein Neg (Negative) Urine Glucose (UA) Norm (Normal) Urine Ketones Negative (Negative) Urine Blood Neg (Negative) Urine Nitrate Negative (Negative) Urine Bilirubin Neg (Negative) Urine Urobilinogen Norm (Negative) mg/dL Ur Leukocyte Kristy ase Negative (Negative) Discharge Plan Discharge Patient Disposition: Admitted As Inpatient Clinical Impression: Hyponatremia, Hyperkalemia, End-stage liver disease, Alcoholic cirrhosis of liver with ascites, Peritoneal dialysis catheter in situ Condition: Stable Coding Level of Care Code ED Stock Patch Sawyer for Tay Rust
[2021-05-24 14:11] LABS: Basophils % 0.2 %; Eosinophils # 0.1 10^3/uL (0.0-0.8); Eosinophils % 0.9 %; Hematocrit 21.1 % (42.0-52.0); Hemoglobin 7.3 g/dL (11.7-16.6); Lymphocytes # 0.3 10^3/uL (0.8-4.8); Lymphocytes % 2.5 %; Mean Corpuscular HGB Conc 34.6 g/dL (30.0-36.0); Mean Corpuscular Hemoglobin 31.6 pg (28.0-34.0); Mean Corpuscular Volume 91.3 fl (80-94); Mean Platelet Volume 9.1 fL (7.4-10.4); Monocytes # 1.5 10^3/uL (0.2-0.9); Monocytes % 11.7 %; Neutrophils # 10.68 10^3/uL (1.8-7.7); Neutrophils % 83.5 %; Nucleated Red Blood Cells % 0 %; Platelet Count 171 10^3/cmm (130-400); Red Blood Count 2.31 10^6/uL (4.1-5.3); Red Cell Distribution Width 14.6 % (12.1-15.1); White Blood Count 12.8 10^3/uL (4.0-10.0)
[2021-05-24] MEDS: ondansetron 2 mg/ML SDV 2 mL 4 MG IVP (14:17)
[2021-05-24] MEDS: sodium chloride 0.9% 1,000 ML 999 ML IV (14:18)
[2021-05-24 14:28] VITALS: BP 98/55; PULSE 63; RESP 20; O2SAT 91
[2021-05-24 14:32] LABS: INR 1.52 (0.8-1.2)
[2021-05-24 14:34] LABS: Ammonia 29 umol/L (16-60); Partial Thromboplastin Time 48.6 SECONDS (23.9-36.7)
[2021-05-24 14:38] LABS: Alanine Aminotransferase 12 U/L (0-41); Albumin Level 2.4 g/dL (3.5-5.2); Alkaline Phosphatase 109 IU/L (40-130); Anion Gap 16.1 (5-19); Aspartate Amino Transferase 22 U/L (0-40); Blood Urea Nitrogen 28 mg/dL (6-20); Calcium 8.1 mg/dL (8.5-10.5); Carbon Dioxide 22 mmol/L (22-29); Chloride 82 mmol/L (98-107); Creatine Phosphokinase 15 U/L (39-308); Globulin 2.8 g/dL (1.3-4.6); Glomerular Filtration Rate 34.6 mL/min (90-130); Glucose 71 mg/dL (65-115); Lipase 12 U/L (13-60); Magnesium 1.9 mg/dL (1.7-2.3); Osmolality Calculated 240 mOsm/kg (285-295); Total Bilirubin 1.1 mg/dL (0.15-1.2); Total Protein 5.2 g/dL (6.6-8.7)
[2021-05-24 14:42] LABS: Sodium 113 mmol/L (136-145)
[2021-05-24 14:43] LABS: Potassium 7.1 mmol/L (3.5-5.1)
--- NOTE | 2021-05-24 15:55 | PM.CONSULT ---
Providers/Reason For Consult Consulting Physician/Specialty*: rodolfo ayala md/ telenephrology Reason for Consult*: SAMI, ckd stage3, hyperkalemia, hyponatremia Requesting Physician: Dr. Memo Weir Primary Care Provider: Yosvany Segovia MD History of Present Illness History of Present Illness Yosvany Soto is a 56 year old male cirrhosis, chronic liver disease, hyponatremia, multiple episodes of SAMI, left metatarsal fx. pt here w/ weakness, thirsty. on home diuretics including lasix, aldactone amd home potassium. he has a peritoneal drainage catheter Review of Systems General: Reports: 10 or more systems reviewed and unremarkable except in HPI and below Narrative: weak, lethargic, thirsty, abd rash, dec fluid removal from abd cirrhosis Meds/Allergies Home Medications and Allergies Home Medications Medication Instructions Recorded Confirmed Last Taken Type pantoprazole 40 mg tablet,delayed 40 mg PO DAILY@10 01/04/20 05/07/21 03/30/21 History release vitamin B complex 1 tab PO DAILY@16 01/04/20 05/07/21 03/30/21 History tramadol 100 mg PO DAILY PRN 05/05/20 05/07/21 03/30/21 History Ocuvite Adult 50 Plus 1 cap PO PRN 08/04/20 05/07/21 01/12/21 History folic acid 1 mg PO DAILY@10 08/23/20 05/07/21 03/30/21 History [place] boot #1 ea 09/01/20 05/07/21 Unknown Rx fluticasone propionate 1 - 2 spray INTRANASAL DAILY 09/08/20 05/07/21 03/30/21 History [place] #1 ea NS 10/02/20 05/07/21 Unknown Rx albuterol sulfate 2 inh INHALATION Q4H PRN 12/11/20 05/07/21 Unknown History PreserVision AREDS 1 cap PO DAILY 02/11/21 05/07/21 03/30/21 History ferrous sulfate 27 mg PO DAILY 02/11/21 05/07/21 03/30/21 History thiamine HCl (vitamin B1) [Vitamin 250 mg PO DAILY 02/11/21 05/07/21 03/30/21 History B-1] [place] Boot to the left and an #1 ea 03/23/21 05/07/21 Unknown Rx even-up applied to the right foot midodrine 5 mg PO TID 03/30/21 05/07/21 03/30/21 History diltiazem HCl 120 mg 120 mg PO DAILY 04/24/21 05/07/21 Unknown History capsule,extended release 24 hr tiotropium bromide 2.5 2 puff INHALATION DAILY #4 g 05/02/21 05/07/21 Unknown Rx mcg/actuation mist for inhalation alfuzosin 10 mg PO DAILY@13 05/24/21 05/24/21 05/23/21 History cetirizine [Zyrtec] 10 mg PO DAILY PRN 05/24/21 05/24/21 Unknown History ciprofloxacin HCl [Cipro] 500 mg PO DAILY 05/24/21 05/24/21 05/24/21 10:30 History furosemide 60 mg PO QAM 05/24/21 05/24/21 05/24/21 History 60 MG lactulose 30 ml PO TID PRN 05/24/21 05/24/21 Unknown History meloxicam 7.5 mg PO DAILY 05/24/21 05/24/21 05/24/21 10:30 History potassium chloride 20 meq PO BID 05/24/21 05/24/21 05/24/21 10:30 History spironolactone 50 mg PO QAM 05/24/21 05/24/21 05/24/21 10:30 History Allergies Allergy/AdvReac Type Severity Reaction Status Date / Time Penicillins Allergy ALGY-Difficulty Verified 05/24/21 15:57 Breathing Sulfa (Sulfonamide Allergy Unknown Verified 05/24/21 15:57 Antibiotics) PFSH Acute PFSH: Medical History Acute dyspnea Acute hypokalemia Acute hyponatremia Ascites Ascites due to alcoholic cirrhosis Atrial fibrillation and flutter Atrial fibrillation with RVR BPH loc w urin obs/LUTS Charcot's arthropathy Chest pain Pleuritic chest pain: Resolved; CHF (congestive heart failure), NYHA class III Chronic hyponatremia End-stage liver disease Erectile dysfunction ETOH abuse Fracture of fourth metatarsal bone of left foot Hepatorenal syndrome History of abdominal paracentesis Hx of esophageal varices Hyperkalemia Hyponatremia Hyponatremia with excess extracellular fluid volume Laceration of left foot Neuropathy Peyronie disease Pleural effusion Pleural effusion associated with hepatic disorder Pneumonia PVD (peripheral vascular disease) Surgical History H/O colonoscopy 10-12 yrs H/O esophagogastroduodenoscopy History of tonsillectomy Hx of umbilical hernia repair Hx of vasectomy Status post surgery (07/05/20) peritoneal catheter for ascites Family History Grandfather CAD (coronary artery disease) Grandmother CAD (coronary artery disease) Cancer Father Cancer Denies family history of Anesthesia complication Bleeding disorder Social History Quit status (tobacco): has quit using tobacco Year quit tobacco: 2014 less than a [id number] Second hand smoke exposure: No Smoking risk assessment/counseling performed?: Yes Alcohol intake: current Alcohol intake frequency: 3 or more drinks per day Alcohol type: beer Adopted: No Caregiver/support person: Yes Lives independently: Yes Household members: children Marital status: Current occupational status: unemployed Pets and animals: Yes History of recent travel: No Current gender identity: Male Vitals/I&O/Wt Last Vital Signs Temp 97.6 F 05/24/21 13:20 Pulse 63 05/24/21 14:28 Resp 20 H 05/24/21 14:28 BP 98/55 05/24/21 14:28 Pulse Ox 91 05/24/21 14:28 Weight last 48 hrs Weight 120.202 kg Physical Exam Narrative: EXAM NARRATIVE: swollen in bed, NARD vs noted- hr stable heent- nc/at, eomi neck supple lung -dull bases heart- irreg irreg, +MÓNICA abd soft, nt, +BS, + peritoneal dialysis catheter ext 1+ b/l leg edema neuro- a,a,o x 2+ A&P Additional A&P Information 56 yr old man 1. acute on chronic hyponatremia- -likely from diuretics, and SAMI -na from 107 to 113- to 115- to 118 to 125 w/ 3% saline now 123- attempt to correct 6-8 meq/ l per 24 hrs -cont check chem 7 q 6 hrs -normal tsh and cortisol on recent hospitalizations -had low ur na in past, will repeat 2. SAMI- likely HRS vs prerneal -cont iv albumin -may need octreotide -start midodrine for BP support -stop aldactone and lasiz -monitor chemistries -recent-renal us- Right kidney: The right kidney is smaller than the left measuring 8.9 cm in length. The echotexture of the kidney is appropriate. The right renal cortex measures 1.4 cm in thickness. No stones. No hydronephrosis. Left kidney: Normal. The left kidney measures 11.4 cm in length. The cortex measures 1.5 cm in thickness. No stones. No hydronephrosis. Urinary bladder: Unremarkable u/a SG 1005- likely high water intake and minimal salt and food, while on diuretics 3. hyperkalemia- on aldactone and k at home and SAMI -monitor off aldactone and potassium. -he has a PD catheter- if no improvement can do CAPD 4. chronic a f ib 5. chronic systolic CHF- EF 40-45%- no eduardo-i, arb, aldactone, lasix w/ sami, and hyperkalemia 6. anemia- check iron studies, b12, folate levels 7. leukocytosis- evaluate per medicine 8. DM- hypoglycemia likely from SAMI discussed w/ pt and rn seen and examined w/ RN- telehealth visit -informed consent for telehealth visist obtained time spent 55 minutes Consult Attestations Medical Necessity Statement: sami, hyperkalemia, hyponatremia Time Spent in Patient Care: Greater than 35 minutes Coding Level of Care Code Acute Conference Planning Manager for Tay Rust
[2021-05-24 15:57] LABS: Add Urine Microscopic? NO; Charge for UA Resulting for Rev
[2021-05-24 16:07] LABS: Bilirubin Urine Neg (Negative); Blood Urine Neg (Negative); Glucose Urine UA Norm (Normal); Ketones Urine Negative (Negative); Leukocyte Esterase Urine Negative (Negative); Nitrate Urine Negative (Negative); Protein Urine Neg (Negative); Specific Gravity, Urine 1.005 (1.005-1.030); Urine Appearance Clear (CLEAR); Urine Color Yellow (Yellow); Urobilinogen Urine Norm (Negative); pH Urine 5 (5-7)
--- NOTE | 2021-05-24 16:10 | PC.PHAR ---
PT STATES HE TAKES CARE OF HIS OWN MEDICATIONS-[facility] LAST FILLED LASIX 40MG DAILY ON 04/24/21 30D/S-PT STATES DR SOTO INCREASED TO 60MG DAILY-PT STATES HE IS SUPPOSE TO TAKE LACTULOSE TID PT STATES HE ONLY TAKES PRN-PT STATES IT GIVES HIM DIARRHEA.-[facility] STATES THEY LAST FILLED 06/02/2020 STATES THEY HAVE A RX ON HOLD FROM DR SOTO FOR 30ML TID-RX FILLED ON 04/30/21 30D/S FOR MIDODRINE 5MG TID PT STATES HE ONLY TAKES 5MG BID-PT STATES HE WILL SOMETIMES TAKE AN EXTRA 50MG TAB AT HS OF SPIRONOLACTONE -PT STATES HE HAS A SPIRIVA RESPIMAT INHALER BUT DOESNT NOW HOW TO USE IT-NOTES ARE MADE IN THE PHARMACY COMMENTS
--- NOTE | 2021-05-24 16:19 | USR_ITS ---
PROCEDURE INFORMATION: Exam: US Retroperitoneal; Complete; Kidneys and Bladder Exam date and time: 05/24/2021 4:19 PM Age: 56 years old Clinical indication: Other: Adarsh TECHNIQUE: Imaging protocol: Real-time ultrasound of the retroperitoneum with image documentation. Complete exam focused on the kidneys and bladder. COMPARISON: US renal BI* [id number] 02/12/2021 8:36 AM FINDINGS: Right kidney: The right kidney is suboptimally visualized and measures 11.1 x 5.1 x 4.7 cm. No visible mass, cyst, calculus, or hydronephrosis. Left kidney: The left kidney is suboptimally visualized and measures 10.5 x 4.7 x 5.0 cm. No visible mass, cyst, calculus, or hydronephrosis. Urinary bladder: The urinary bladder is of normal size and contour. US/US renal BI* [id number] IMPRESSION: 1. No acute finding. 2. Suboptimal visualization of the kidneys.
[2021-05-24] MEDS: calcium gluconate 0.1 gm/mL 10% SDV 10mL 2 GM IVP (16:24)
[2021-05-24] MEDS: sodium chloride 0.9% (100 ml) 100 ML 600 ML (16:25)
[2021-05-24] MEDS: sodium polystyrene sulfonate 15 gm/60 mL Btl 30 GM PO (16:25)
--- NOTE | 2021-05-24 16:46 | P.HP_ITS ---
Providers/Chief Complaint Primary Care Provider: Yosvany Segovia MD Chief Complaint: GENERALIZED WEAKNESS History of Present Illness Yosvany Soto is a 56 year old male with PMH chronic liver disease, cirrhosis, chronic hyponatremia with recurrent hospital admissions, hepatorenal syndrome, bacterial peritonitis, s/p peritoneal catheter for recurrent ascites, history of esophageal varices, chronic alcohol abuse, noncompliance presented to the ER today because of worsening weakness for 2 days. Patient states his weakness has been increasing for the last 1 week but for last 2 days he has not even been able to get out of the bed. States no recent changes in medications though has not been able to take his lactulose for last 2 days. Last bowel movement was 3 days ago. Denies any dysuria daughter states decline in urine output. Also states his peritoneal fluid has become blood-tinged over last 2 draws over the week. Blood work in the ER showed a white count 12.8, hemoglobin of 7.3, INR of 1.5, sodium of 113, potassium of 7.1, creatinine of 2, BUN of 28, UA negative for any signs of infection Review of Systems General: Reports: 10 or more systems reviewed and unremarkable except in HPI and below Const: Denies: fever(s), chills, body aches, change in appetite, change in weight, malaise, night sweats, diaphoresis, change in sleep pattern, daytime sleepiness or snoring Eyes: Denies: change in vision, blurry vision, photophobia, eye discomfort or eye discharge ENMT: Denies: throat pain, enlarged tonsils, hoarseness, mouth pain, oral sores, dry mouth, tinnitus, nasal congestion or post nasal drip Card: Denies: chest pain, palpitations, irregular heart rhythm, edema, swelling of feet/ankles, lightheadedness, syncope, pre-syncope, dyspnea on exertion, orthopnea, leg pain with exertion or acrocyanosis Resp: Denies: dyspnea, productive cough, non-productive cough, wheezing, stridor, pain on inspiration, change in phlegm color, hemoptysis or chest congestion GI: Denies: abdominal pain, nausea, vomiting, hematemesis, coffee ground emesis, dysphagia, heartburn, diarrhea, constipation, bloating, GI cramping, change in bowel habits, pain on defecation, hematochezia or melena : Denies: flank pain, difficulty urinating, dysuria, urinary frequency, urinary urgency, urinary hesitancy, urinary dribbling, difficulty starting urination, change in urine stream, nocturia or hematuria Musc: Denies: neck pain, back pain, extremity pain, joint pain, joint swelling, joint redness, joint stiffness or limited range of motion Neuro: Denies: headache(s), numbness in extremities, weakness in extremities, sensory changes, lack of coordination, difficulty walking, frequent falls, dizziness, vertigo, confusion, Slurred speech present, difficulty communicating thoughts or seizure-like activity Psych: Denies: anxiety, depression, mood swings, panic attacks, hopelessness or irritability Endo: Denies: polyuria, polydipsia, tired all the time, cold intolerance, excessive sweating, flushing or heat intolerance Avinash/Lymph: Denies: easy bruising or easy bleeding All/Imm: Denies: tongue swelling, facial swelling or acute wheezing Medications/Allergies Home Medications Medication Instructions Recorded Confirmed Last Taken Type pantoprazole 40 mg tablet,delayed 40 mg PO DAILY@10 01/04/20 05/24/21 05/24/21 10:30 History release vitamin B complex 1 tab PO DAILY@16 01/04/20 05/24/21 05/23/21 History tramadol 100 mg PO DAILY PRN 05/05/20 05/24/21 05/24/21 10:30 History 50 MG Ocuvite Adult 50 Plus 1 cap PO PRN 08/04/20 05/24/21 01/12/21 History folic acid 1 mg PO DAILY@10 08/23/20 05/24/21 05/24/21 10:30 History [place] boot #1 ea 09/01/20 05/24/21 Unknown Rx fluticasone propionate 1 - 2 spray INTRANASAL DAILY PRN 09/08/20 05/24/21 03/30/21 History [place] #1 ea NS 10/02/20 05/24/21 Unknown Rx albuterol sulfate 2 inh INHALATION Q4H PRN 12/11/20 05/24/21 Unknown History PreserVision AREDS 1 cap PO DAILY 02/11/21 05/24/21 03/30/21 History ferrous sulfate 27 mg PO DAILY 02/11/21 05/24/21 05/23/21 History thiamine HCl (vitamin B1) [Vitamin 250 mg PO QAM 02/11/21 05/24/21 05/24/21 10:30 History B-1] [place] Boot to the left and an #1 ea 03/23/21 05/24/21 Unknown Rx even-up applied to the right foot midodrine 5 mg PO BID 03/30/21 05/24/21 05/24/21 10:30 History diltiazem HCl 120 mg 120 mg PO QAM 04/24/21 05/24/21 05/24/21 10:30 History capsule,extended release 24 hr tiotropium bromide 2.5 2 puff INHALATION DAILY #4 g 05/02/21 05/24/21 Unknown Rx mcg/actuation mist for inhalation alfuzosin 10 mg PO DAILY@13 05/24/21 05/24/21 05/23/21 History cetirizine [Zyrtec] 10 mg PO DAILY PRN 05/24/21 05/24/21 Unknown History ciprofloxacin HCl [Cipro] 500 mg PO DAILY 05/24/21 05/24/21 05/24/21 10:30 History furosemide 60 mg PO QAM 05/24/21 05/24/21 05/24/21 History 60 MG lactulose 30 ml PO TID PRN 05/24/21 05/24/21 Unknown History meloxicam 7.5 mg PO DAILY 05/24/21 05/24/21 05/24/21 10:30 History potassium chloride 20 meq PO BID 05/24/21 05/24/21 05/24/21 10:30 History spironolactone 50 mg PO QAM 05/24/21 05/24/21 05/24/21 10:30 History Allergies Allergy/AdvReac Type Severity Reaction Status Date / Time Penicillins Allergy ALGY-Difficulty Verified 05/24/21 15:57 Breathing Sulfa (Sulfonamide Allergy Unknown Verified 05/24/21 15:57 Antibiotics) PFSH Acute PFSH: Medical History (Updated 05/24/21 @ 17:08 by Sourav Meyer MD) Acute dyspnea Acute encephalopathy Acute hypokalemia Acute hyponatremia Ascites Ascites due to alcoholic cirrhosis Ataxia Atrial fibrillation and flutter Echocardiogram done in 2019 shows an EF of 40 to 45% with hypokinetic septum, anteroseptum and inferior wall, biatrial enlargement Atrial fibrillation with RVR BPH loc w urin obs/LUTS Charcot's arthropathy Charcot's joint of left foot Chest pain Pleuritic chest pain: Resolved; CHF (congestive heart failure), NYHA class III Chronic hyponatremia End-stage liver disease Erectile dysfunction ETOH abuse Fracture of fourth metatarsal bone of left foot Fracture of second metatarsal bone of left foot Fracture of third metatarsal bone of left foot Hepatorenal syndrome History of abdominal paracentesis Hx of esophageal varices Hyperkalemia Hyponatremia Hyponatremia with excess extracellular fluid volume Laceration of left foot Neuropathy Non-pressure chronic ulcer of other part of left foot limited to breakdown of skin Peritoneal dialysis catheter in situ Peyronie disease Pleural effusion Pleural effusion associated with hepatic disorder Pneumonia PVD (peripheral vascular disease) Surgical History H/O colonoscopy 10-12 yrs H/O esophagogastroduodenoscopy History of tonsillectomy Hx of umbilical hernia repair Hx of vasectomy Status post surgery (07/05/20) peritoneal catheter for ascites Family History Grandfather CAD (coronary artery disease) Grandmother CAD (coronary artery disease) Cancer Father Cancer Denies family history of Anesthesia complication Bleeding disorder Social History Quit status (tobacco): has quit using tobacco Year quit tobacco: 2014 less than a [id number] Second hand smoke exposure: No Smoking risk assessment/counseling performed?: Yes Alcohol intake: current Alcohol intake frequency: 3 or more drinks per day Alcohol type: beer Adopted: No Caregiver/support person: Yes Lives independently: Yes Household members: children Marital status: Current occupational status: unemployed Pets and animals: Yes History of recent travel: No Current gender identity: Male Vitals/I&O/Wt Last Vital Signs Temp 97.6 F 05/24/21 13:20 Pulse 63 05/24/21 14:28 Resp 20 H 05/24/21 14:28 BP 98/55 05/24/21 14:28 Pulse Ox 91 05/24/21 14:28 Weight last 48 hrs Weight 120.202 kg Physical Exam Narrative: EXAM NARRATIVE: General: No acute distress, AO x3, pale, dehydrated, was chronically sick appearing HEENT: PERRLA, pupils bilaterally equal and reactive Chest: Normal vesicular breath sounds, no added sounds, equal good air entry bilaterally CVS: S1-S2 irregularly irregular, no murmurs, no tachycardia, no gallops, no rubs Abdomen: Soft, nontender, mildly distended, no organomegaly, bowel sounds present, redness present in the lower quadrant up to the navel area, peritoneal catheter present without any sign of granulation Neuro: No focal deficits, no facial deformity, AO x3, power 5/5 in all limbs Data : 05/24/21 14:05 05/24/21 14:05 A&P Assessment and plan (1) Acute hyponatremia: Status: Acute (2) Hyperkalemia: Status: Acute (3) Hepatorenal syndrome: Status: Acute (4) Peritonitis: Status: Suspected (5) End-stage liver disease: Status: Acute (6) Alcoholic cirrhosis of liver with ascites: Status: Acute (7) Atrial fibrillation and flutter: Status: Acute (8) CHF (congestive heart failure), NYHA class III: Status: Acute Qualifiers: Congestive heart failure type: systolic Congestive heart failure chronicity: unspecified Qualified Code(s): I50.20 - Unspecified systolic (congestive) heart failure (9) ETOH abuse: Status: Acute (10) Peritoneal dialysis catheter in situ: Status: Acute (11) Anemia: Status: Acute Additional A&P Information Acute hyponatremia: Baseline sodium around 1 30-1 35. Currently 113. Symptomatic. Check urine lites, urine creatinine, urine osmolality. Patient mildly dehydrated. Normal saline gentle hydration at 50 cc/h. Hyperkalemia: Kayexalate. Albuterol, sodium bicarbonate, calcium gluconate as per protocol. Nephrology has been consulted. Repeat labs every 6 hourly. Telemetry. End-stage liver disease/alcoholic liver cirrhosis: Hepatorenal syndrome: Peritoneal dialysis catheter in situ: High suspicion of PD peritonitis. Fluid studies along with Gram stain and culture and pathology. Start empirically on ceftriaxone. Patient allergic to penicillin. Check blood culture, fluid culture. Will de-escalate antibiotics accordingly. Continue with home dose of lactulose 3 times daily as needed. We will try to get at least 2-3 soft bowel movements every shift. Continue with home dose of empiric ciprofloxacin for now. Continue with home dose of midodrine 5 mg 3 times daily. History of alcohol abuse: [facility] protocol. Oral thiamine, folic acid. Atrial fibrillation: Rate controlled. Continue home dose of Cardizem. Not on anticoagulation for chronic anemia. Congestive heart failure: Echocardiogram done in 2019 shows a multi wall hypokinesia with EF of 40 to 45% with biatrial enlargement. Currently well compensated. Hold off on Lasix. We will continue to monitor fluid status. Anemia: Hemoglobin at baseline. Check iron panel, reticulocyte count, folic acid, vitamin B12 levels. Continue home dose of oral iron supplementation. Continue with home dose of Lasix. CODE STATUS: Full code. Dialysis low potassium diet. Protonix for PUD prophylaxis. Continue other chronic medications. Admit to CSU. Attestations Medical Necessity Statement*: Admission for more than 2 midnights for acute hyponatremia, hyperkalemia, possible bacterial peritonitis Time Spent in Patient Care: Greater than 35 minutes (>than 50% of time spent in counselling and/or direct pt care on unit) . 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
[2021-05-24 16:59] VITALS: BP 149/95; PULSE 96; RESP 12; O2SAT 98
[2021-05-24] MEDS: cefTRIAXone 1,000 MG in sodium chloride 0.9% (plus) 50 ML 100 MG IV (17:41)
[2021-05-24 19:38] LABS: Reticulocyte % 2.6 % (0.5-2.0)
[2021-05-24 20:00] VITALS: BP 114/73; PULSE 82; RESP 17; O2SAT 98
[2021-05-24 20:11] LABS: Potassium, Radom Urine 19 mmol/L; Urine Creatinine 30 mg/dL (39-259); Urine Random Chloride 32 mmol/L; Urine Random Sodium 31 mmol/L
[2021-05-24 20:28] LABS: Alanine Aminotransferase 12 U/L (0-41); Albumin Level 2.4 g/dL (3.5-5.2); Alkaline Phosphatase 102 IU/L (40-130); Aspartate Amino Transferase 22 U/L (0-40); Blood Urea Nitrogen 27 mg/dL (6-20); Calcium 8.4 mg/dL (8.5-10.5); Carbon Dioxide 21 mmol/L (22-29); Chloride 82 mmol/L (98-107); Glomerular Filtration Rate 34.6 mL/min (90-130); Glucose 69 mg/dL (65-115); Magnesium 1.9 mg/dL (1.7-2.3); Osmolality Calculated 241 mOsm/kg (285-295); Total Bilirubin 1.1 mg/dL (0.15-1.2); Total Protein 5.4 g/dL (6.6-8.7)
[2021-05-24 20:49] LABS: Sodium 114 mmol/L (136-145)
[2021-05-24 23:04] VITALS: BP 108/62; PULSE 84; RESP 23; O2SAT 94
[2021-05-24 23:11] VITALS: BP 108/63; PULSE 82; RESP 16; O2SAT 80
[2021-05-24 23:27] LABS: Iron 37 ug/dL (59-158); Total Iron Binding Capacity 112 mcg/dl; Unsaturated Iron Binding 75 ug/dL (112-347)
[2021-05-24 23:33] LABS: Procalcitonin 0.72 ng/mL (0-0.5)
[2021-05-25] VITALS (15 sets, daily range): BP systolic 88–111; BP diastolic 52–65; PULSE 83–108; RESP 14–20; TEMP 36.6–37; O2SAT 94–99
[2021-05-25] MEDS: midodrine 5 mg TABLET PO ×4 (00:05→20:17)
[2021-05-25] MEDS: sodium polystyrene sulfonate 15 gm/60 mL Btl 30 GM PO (00:06)
[2021-05-25] MEDS: Dianeal low Ca w/1.5% dex 2,000 mL Bag 2000 ML INTRAPERIT ×5 (00:11→22:37)
[2021-05-25] MEDS: heparin 5,000 unit/mL INJ 1 mL 5000 UNIT SUBCUT ×3 (00:12→22:37)
[2021-05-25] MEDS: insulin regular-human 10 UNIT in SYRINGE 1 EACH 100 UNIT IVP (00:48)
[2021-05-25] MEDS: dextrose 50% syringe 50 mL IVP (00:48)
[2021-05-25] MEDS: sodium chloride 3% 500 ML 30 ML IV (00:49)
[2021-05-25 01:15] LABS: Appearance, Peritoneal Fluid Cloudy (Clear); Color, Peritoneal Fluid Slight Pink (Pale Yellow)
[2021-05-25 01:20] LABS: Alanine Aminotransferase 11 U/L (0-41); Albumin Level 2.2 g/dL (3.5-5.2); Alkaline Phosphatase 133 IU/L (40-130); Anion Gap 15.1 (5-19); Aspartate Amino Transferase 24 U/L (0-40); Blood Urea Nitrogen 24 mg/dL (6-20); Calcium 7.8 mg/dL (8.5-10.5); Carbon Dioxide 22 mmol/L (22-29); Chloride 83 mmol/L (98-107); Globulin 2.9 g/dL (1.3-4.6); Glomerular Filtration Rate 34.6 mL/min (90-130); Glucose 80 mg/dL (65-115); Magnesium 1.8 mg/dL (1.7-2.3); Osmolality Calculated 239 mOsm/kg (285-295); Total Bilirubin 1.1 mg/dL (0.15-1.2); Total Protein 5.1 g/dL (6.6-8.7)
[2021-05-25 01:22] LABS: Mononuclear #, Pertinoneal Fl 1.106 10^3/uL; Polynuclear # Cells, Perit 4.391 10^3/uL
[2021-05-25 01:25] LABS: Peritoneal Fluid Spec Gravity 1.005
[2021-05-25 01:26] LABS: RBC Pertioneal Fluid 23 10^3/uL; WBC Peritoneal Fluid 5497 /uL
[2021-05-25 01:35] LABS: Potassium 7.1 mmol/L (3.5-5.1); Sodium 113 mmol/L (136-145)
[2021-05-25 01:47] LABS: Total Protein Peritoneal Fluid 1.8 g/dL
[2021-05-25] MEDS: HYDROcodone-acetaminophen 5-325 mg Tablet 1 TAB PO ×2 (01:57→13:19)
[2021-05-25 02:47] LABS: Alanine Aminotransferase 11 U/L (0-41); Albumin Level 2.3 g/dL (3.5-5.2); Alkaline Phosphatase 101 IU/L (40-130); Anion Gap 16.1 (5-19); Aspartate Amino Transferase 21 U/L (0-40); Blood Urea Nitrogen 23 mg/dL (6-20); Calcium 7.9 mg/dL (8.5-10.5); Carbon Dioxide 20 mmol/L (22-29); Chloride 84 mmol/L (98-107); Creatine Phosphokinase 24 U/L (39-308); Globulin 2.7 g/dL (1.3-4.6); Glomerular Filtration Rate 34.6 mL/min (90-130); Glucose 50 mg/dL (65-115); Osmolality Calculated 239 mOsm/kg (285-295); Potassium 6.1 mmol/L (3.5-5.1); Total Bilirubin 0.9 mg/dL (0.15-1.2)
[2021-05-25 02:49] LABS: Sodium 114 mmol/L (136-145)
[2021-05-25 03:26] LABS: Glucose Point of Care 62 mg/dL (70-110)
[2021-05-25 04:29] LABS: Glucose Point of Care 76 mg/dL (70-110)
[2021-05-25] MEDS: morphine 4 mg/mL SDV 1 mL 2 MG IVP ×2 (04:29→20:28)
[2021-05-25 05:01] LABS: Basophils % 0.3 %; Eosinophils # 0.1 10^3/uL (0.0-0.8); Eosinophils % 0.6 %; Hematocrit 21.3 % (42.0-52.0); Hemoglobin 7.3 g/dL (11.7-16.6); Lymphocytes # 0.3 10^3/uL (0.8-4.8); Lymphocytes % 2.2 %; Mean Corpuscular HGB Conc 34.3 g/dL (30.0-36.0); Mean Corpuscular Hemoglobin 31.2 pg (28.0-34.0); Mean Platelet Volume 9.5 fL (7.4-10.4); Monocytes # 1.4 10^3/uL (0.2-0.9); Monocytes % 9.8 %; Neutrophils # 11.85 10^3/uL (1.8-7.7); Neutrophils % 85.8 %; Nucleated Red Blood Cells % 0 %; Platelet Count 197 10^3/cmm (130-400); Red Blood Count 2.34 10^6/uL (4.1-5.3); Red Cell Distribution Width 14.6 % (12.1-15.1); White Blood Count 13.8 10^3/uL (4.0-10.0)
[2021-05-25 05:19] LABS: Alanine Aminotransferase 12 U/L (0-41); Albumin Level 2.2 g/dL (3.5-5.2); Alkaline Phosphatase 99 IU/L (40-130); Anion Gap 17.2 (5-19); Aspartate Amino Transferase 24 U/L (0-40); Blood Urea Nitrogen 27 mg/dL (6-20); Carbon Dioxide 21 mmol/L (22-29); Chloride 85 mmol/L (98-107); Globulin 2.6 g/dL (1.3-4.6); Glomerular Filtration Rate 32.7 mL/min (90-130); Glucose 61 mg/dL (65-115); Iron 31 ug/dL (59-158); Magnesium 1.8 mg/dL (1.7-2.3); Osmolality Calculated 247 mOsm/kg (285-295); Percent Saturation 29.8 % (20-50); Phosphorus 4.4 mg/dL (2.5-4.5); Potassium 6.2 mmol/L (3.5-5.1); Total Iron Binding Capacity 104 mcg/dl; Total Protein 4.8 g/dL (6.6-8.7); Unsaturated Iron Binding 73 ug/dL (112-347)
[2021-05-25] MEDS: dilTIAZem ER (24HR) 120 mg Capsule PO (05:24)
[2021-05-25] MEDS: thiamine 100 mg Tablet 250 MG PO (05:24)
[2021-05-25 05:34] LABS: 25 Hydroxy Vitamin D 11 ng/mL (30-100); Vitamin B12 1826 pg/mL (232-1245)
[2021-05-25 05:39] LABS: Ferritin 1127 ng/mL (30-400)
[2021-05-25 05:41] LABS: Sodium 117 mmol/L (136-145)
[2021-05-25 05:54] LABS: Folate Level > 20.0 ng/mL (4.5-32.2)
[2021-05-25 06:59] LABS: Anion Gap 15.2 (5-19); Blood Urea Nitrogen 26 mg/dL (6-20); Calcium 7.8 mg/dL (8.5-10.5); Carbon Dioxide 23 mmol/L (22-29); Chloride 85 mmol/L (98-107); Glomerular Filtration Rate 34.6 mL/min (90-130); Glucose 76 mg/dL (65-115); Osmolality Calculated 248 mOsm/kg (285-295); Potassium 6.2 mmol/L (3.5-5.1)
[2021-05-25 07:10] LABS: Sodium 117 mmol/L (136-145)
[2021-05-25] MEDS: dextrose 50% syringe 50 mL 25 ML IVP (07:46)
--- NOTE | 2021-05-25 07:56 | PC.OT ---
OT EVALUATION HELD TODAY DUE TO LOW HGB AND NA. WILL ATTEMPT AGAIN TOMORROW.
--- NOTE | 2021-05-25 07:57 | PC.NURSE ---
Shift Note Frequent safety and comfort rounds continue. Orders and/or nursing care completed as indicated. Patient monitored for response to intervention and treatment(s). Education provided includes plan of care. Patient and/or telephone sales representative verbalized understanding. Will continue to monitor.
[2021-05-25] MEDS: pantoprazole DR 40 mg Tablet PO ×2 (09:33→17:02)
[2021-05-25] MEDS: ciprofloxacin 500 mg Tablet PO (09:33)
[2021-05-25] MEDS: folic acid 1 mg Tablet PO (09:33)
[2021-05-25] MEDS: ferrous sulfate EC 325 mg Tablet PO (09:34)
[2021-05-25] MEDS: sodium chloride 1 gm Tablet PO ×3 (09:34→20:17)
--- NOTE | 2021-05-25 09:36 | PC.NURSE ---
called store room to provide us Dianeal 1.5% bag
--- NOTE | 2021-05-25 11:30 | PC.NURSE ---
Tele-Senior Software Systems Engineer call Updated doctor via ipad on pt's status. Pt noted to have PD cath at lower quadrant abdomen. Informed doctor on the pink to orange tinged color on the PD fluid, pt's abdominal cramps and redness around the abdominal area. Verified to Dr. Hebert regarding Vancomycin infusion through PD. He said he will put the orders in.
[2021-05-25] MEDS: vancomycin 1,000 MG SDV 1000 MG INTRAPERIT (12:00)
--- NOTE | 2021-05-25 12:04 | PM.PN ---
Subjective Subjective: Interval history: Mr. Soto is seen and examined. We are providing peritoneal dialysis for him during his hospitalization. This is via the peritoneal catheter tubing that he has that he uses for his recurrent ascites. He still feels very weak. Mild lower extremity edema. Peritoneal dialysis is actually going well, however, the effluent appears cloudy and slightly blood-tinged. Of note back in March he had a number of bacteria grown out from the fluid that was draining from his peritoneal catheter. This included Enterococcus faecalis, a pansensitive bacteria, Klebsiella, sensitive to imipenem and Cipro and he also had E. coli in his urine. This was also sensitive species. Currently he is being treated with combination antibiotic therapy including Primaxin and ciprofloxacin. Vitals/I&O/Wt Last Vital Signs Temp 98.2 F 05/25/21 12:00 Pulse 88 05/25/21 12:00 Resp 18 05/25/21 12:00 BP 102/65 05/25/21 12:00 Pulse Ox 94 05/25/21 12:00 05/24/21 05/25/21 05/25/21 22:59 06:59 14:59 Intake Total 1050 / 1050 5350.1 / 6400.1 100 / 100 Output Total 1250 / 1250 Balance 1050 / 1050 4100.1 / 5150.1 100 / 100 Weight last 48 hrs Weight 128.73 kg Weight 129.274 kg Weight 127.459 kg Weight 120.202 kg Physical Exam Narrative: EXAM NARRATIVE: Constitutional: Awake, comfortable HEENT: Wet mucosa, no jvp, non icteric Lungs: Bilaterally clear without discernible wheeze, rales in all lung zones CVS: S1 S2, no murmurs Abdo: Soft, BS ok, PD exit site looks good Ext 4: 1+ edema, peripheral perfusion with no cyanosis Neurological: Grossly non-focal Data : 05/25/21 04:19 05/25/21 06:25 Micro: Microbiology 05/25/21 00:20 Gram Stain - Final Ascites Fluid 05/25/21 00:45 Gram Stain - Final Abdomen 05/24/21 19:59 Blood Culture - Preliminary Blood SPECIMEN COLLECTED 05/24/21 19:36 Blood Culture - Preliminary Blood SPECIMEN COLLECTED A&P Additional A&P Information 1. Acute kidney injury Likely to be prerenal in nature, urine sodium 31, urine creatinine 30, although this is nondiagnostic given his recent exposure to diuretics. Could be hepatorenal physiology also present. Diuretics are now held, he is receiving sodium chloride tablets and also peritoneal dialysis. Continue midodrine. Hold octreotide given hyperkalemia. Current PD prescription is 2 L of 1.5% solution 6 times per day, changes to 5 times per day to give him a long, 8-hour dwell. Daily renal panel, strict I's and O's Avoid usual nephrotoxic agents. 2. Peritonitis Of note back in March he had a number of bacteria grown out from the fluid that was draining from his peritoneal catheter. This included Enterococcus faecalis, a pansensitive bacteria, Klebsiella, sensitive to imipenem and Cipro and he also had E. coli in his urine. This was also sensitive species. Culture of peritoneal fluid sent and pending. Blood cultures pending. He is currently on Primaxin and Cipro, will add IP vancomycin with his longest well. We will do peritoneal cell count, Gram stain and culture every few days to ensure response to antibiotics. This appears to be a recurrent issue, he did have this 2 months ago, at this time we need to start thinking about removing this peritoneal catheter altogether. 3. Chemistry This is likely consequence of diuretic therapy as well as potassium supplementation. In the setting of liver failure Sodium levels are slowly drifting up, potassium levels are slowly drifting down. Currently on salt tablets Peritoneal dialysis should also help to correct these electrolyte abnormalities and with this in mind he should not need any additional the intervention. 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
[2021-05-25] MEDS: alfuzosin 10 mg ER Tablet PO (13:19)
--- NOTE | 2021-05-25 13:51 | P.PN_ITS ---
Subjective Subjective: Interval history: No acute events overnight. Patient states he is feeling little better but still very weak. Sodium increased to 117, potassium better at 6.2 but still high. Denies any nausea, vomiting, headache, dizziness. Has remained hemodynamically stable and afebrile. Started on PD dialysis as per nephrology overnight. Vitals/I&O/Wt Last Vital Signs Temp 98.2 F 05/25/21 12:00 Pulse 93 05/25/21 12:04 Resp 18 05/25/21 12:00 BP 102/65 05/25/21 12:00 Pulse Ox 94 05/25/21 12:00 05/24/21 05/25/21 05/25/21 22:59 06:59 14:59 Intake Total 1050 / 1050 5350.1 / 6400.1 100 / 100 Output Total 1250 / 1250 Balance 1050 / 1050 4100.1 / 5150.1 100 / 100 Weight last 48 hrs Weight 128.73 kg Weight 129.274 kg Weight 127.459 kg Weight 120.202 kg Physical Exam Narrative: EXAM NARRATIVE: General: No acute distress, AO x3, pale, dehydrated, chronically sick appearing HEENT: PERRLA, pupils bilaterally equal and reactive Chest: Normal vesicular breath sounds, no added sounds, equal good air entry bilaterally CVS: S1-S2 irregularly irregular, no murmurs, no tachycardia, no gallops, no rubs Abdomen: Soft, nontender, mildly distended, no organomegaly, bowel sounds present, redness present in the lower quadrant up to the navel area, peritoneal catheter present without any sign of granulation Neuro: No focal deficits, no facial deformity, AO x3, power 5/5 in all limbs Data : 05/25/21 04:19 05/25/21 06:25 Micro: Microbiology 05/25/21 00:20 Gram Stain - Final Ascites Fluid 05/25/21 00:45 Gram Stain - Final Abdomen 05/24/21 19:59 Blood Culture - Preliminary Blood SPECIMEN COLLECTED 05/24/21 19:36 Blood Culture - Preliminary Blood SPECIMEN COLLECTED A&P Assessment and plan (1) Acute hyponatremia: Status: Acute (2) Hyperkalemia: Status: Acute (3) Hepatorenal syndrome: Status: Acute (4) Peritonitis: Status: Suspected (5) End-stage liver disease: Status: Acute (6) Alcoholic cirrhosis of liver with ascites: Status: Acute (7) Atrial fibrillation and flutter: Status: Acute (8) CHF (congestive heart failure), NYHA class III: Status: Acute Qualifiers: Congestive heart failure type: systolic Congestive heart failure chronicity: unspecified Qualified Code(s): I50.20 - Unspecified systolic (co ngestive) heart failure (9) ETOH abuse: Status: Acute (10) Peritoneal dialysis catheter in situ: Status: Acute (11) Anemia: Status: Acute Additional A&P Information Acute hyponatremia: Baseline sodium around 130-1 35. Symptomatic. Check urine lites, urine creatinine, urine osmolality. Stop IV fluids. Fluid restriction to 1200 cc. Salt tablets 1 g every 8 hourly. Recheck BMP every 6 hour. Hyperkalemia: Most likely a combination of home dose of spironolactone, oral potassium supplementation. Repeat Kayexalate. Nephrology has been consulted. Telemetry. End-stage liver disease/alcoholic liver cirrhosis: Hepatorenal syndrome: Per itoneal dialysis catheter in situ: PD fluid analysis consistent with PD peritonitis. On culture review has a history of PD peritonitis with Enterobacter and Klebsiella earlier this year. Start patient on imipenem IV, vancomycin intraperitoneal. Will await fluid culture and Gram stain results before de-escalating antibiotics. Blood cultures so far negative. Continue with midodrine 5 mg 3 times daily. Continue with home dose of empiric ciprofloxacin. Continue with home dose of lactulose 3 times daily as needed. We will try to get at least 2-3 soft bowel movements every shift. History of alcohol abuse: [facility] protocol. Oral thiamine, folic acid. Atrial fibrillation: Rate controlled. Continue home dose of Cardizem. Not on anticoagulation for chronic anemia. Congestive heart failure: Echocardiogram done in 2020 shows a multi wall hypokinesia with EF of 40 to 45% with biatrial enlargement. Currently well compensated. Hold off on Lasix. We will continue to monitor fluid status. Anemia: Hemoglobin at baseline. Iron panel, folic acid and vitamin B12 levels appreciated. Continue home dose of oral iron supplementation. Stool for occult blood positive in the past. Protonix 40 mg twice daily, Carafate. Most likely patient will benefit from EGD and colonoscopy once medically stable. CODE STATUS: Full code. Dialysis low potassium diet. Protonix for PUD prophylaxis. Attestations Medical Necessity Statement*: Requires further hospitalization for management of severe hyponatremia, hyperkalemia, hepatorenal syndrome Time Spent in Patient Care: Greater than 35 minutes (>than 50% of time spent in counselling and/or direct pt care on unit) . 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
--- NOTE | 2021-05-25 14:11 | PC.CHAP ---
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 channel marketing coordinator visit [] Patient/Family/Request visit [] Outpatient visit [] Follow-up visit [] Physician referral [] Code/Alert [] Routine visit [] Staff referral [] Actively dying [xx] Patient sleeping [] Family support [] [] Out of room [] Palliative care [] [] Receiving care in room [] Pre-surgical visit [] Trauma [] Long length of stay [] ICU visit [] Other: Relational/Emotional Strength [] Patient feels connected with others/family/visitors/staff [] Distress [] Loneliness/isolation [] Abandonment Spirituality of Patient [] Person of Jana [] Attends Taoist of their Jana [] Believes in Prayer [] Reads Bible or Advent materials [] There are Spiritual issues to be addressed Accounting Intern Interventions [] Prayer [] Active listening [] Non-anxious presence [] Spiritual/emotional support [] Crisis/trauma care [] Spiritual counseling [] Bereavement support [] Provided bereavement packet [] Provided Bible/devotional materials [] Provided toy/stuffed animal, coloring book to patient or family member [] Provided Communion [] Anointing/[facility] [] Salvation [] Completed spiritual assessment [] Other: Impact on Illness or Injury [] Angry [] Fearful [] Anxious [] Often cries [] Exhaustion [] Unable to work [] Unable to attend rastafari [] Unable to walk/stand [] Unable to read [] Unable to drive [] Unable to eat/drink [] Unable to sleep [] Unable to be with family [] Patient intubated [] Other: Summary Follow up needed Time spent with patient 1 minute
[2021-05-25 15:34] LABS: Anion Gap 24.6 (5-19); Blood Urea Nitrogen 27 mg/dL (6-20); Carbon Dioxide 17 mmol/L (22-29); Chloride 82 mmol/L (98-107); Glucose 106 mg/dL (65-115); Osmolality Calculated 252 mOsm/kg (285-295); Potassium 5.6 mmol/L (3.5-5.1)
[2021-05-25 15:37] LABS: Sodium 118 mmol/L (136-145)
[2021-05-25] MEDS: sucralfate 1 gm/10 mL Oral Liq UDC PO ×2 (17:02→20:18)
[2021-05-25] MEDS: ondansetron 2 mg/ML SDV 2 mL 4 MG IVP (17:02)
--- NOTE | 2021-05-25 17:10 | PC.PT ---
ATTEMPTED PT EVALUATION AT THIS TIME,Pt VOMITTING AND UNABLE ,WILL RE-ATTEMPT TOMORROW
--- NOTE | 2021-05-25 20:13 | PC.NURSE ---
Shift Note Frequent safety and comfort rounds continue. Orders and/or nursing care completed as indicated. Patient monitored for response to intervention and treatment(s). Education provided includes PD exchanges and starting IV antibiotic, GI prophylaxis. Patient and/or sales representative supervisor verbalizes understanding. Will continue to monitor.
--- NOTE | 2021-05-25 20:15 | PC.NURSE ---
PD minicap extended PD transfer clamp attached to PD catheter
[2021-05-25] MEDS: lactulose oral liq 20 gm/30 mL UDC PO (20:18)
[2021-05-25 20:54] LABS: Anion Gap 17.7 (5-19); Blood Urea Nitrogen 27 mg/dL (6-20); Calcium 7.5 mg/dL (8.5-10.5); Carbon Dioxide 22 mmol/L (22-29); Chloride 83 mmol/L (98-107); Glomerular Filtration Rate 29.5 mL/min (90-130); Glucose 86 mg/dL (65-115); Osmolality Calculated 248 mOsm/kg (285-295); Potassium 5.7 mmol/L (3.5-5.1)
[2021-05-25 21:04] LABS: Sodium 117 mmol/L (136-145)
[2021-05-26] VITALS (22 sets, daily range): BP systolic 90–113; BP diastolic 47–72; PULSE 70–96; RESP 15–24; TEMP 36.4–36.8; O2SAT 90–100
[2021-05-26 01:27] LABS: Blood Urea Nitrogen 24 mg/dL (6-20); Calcium 7.5 mg/dL (8.5-10.5); Carbon Dioxide 22 mmol/L (22-29); Chloride 84 mmol/L (98-107); Glomerular Filtration Rate 29.5 mL/min (90-130); Glucose 104 mg/dL (65-115); Magnesium 1.6 mg/dL (1.7-2.3); Osmolality Calculated 248 mOsm/kg (285-295); Phosphorus 5.2 mg/dL (2.5-4.5)
[2021-05-26 01:45] LABS: Anion Gap 16.4 (5-19); Potassium 5.4 mmol/L (3.5-5.1)
[2021-05-26 01:47] LABS: Sodium 117 mmol/L (136-145)
[2021-05-26 04:58] LABS: Basophils % 0.1 %; Eosinophils % 0.2 %; Hemoglobin 6.9 g/dL (11.7-16.6); Lymphocytes # 0.5 10^3/uL (0.8-4.8); Lymphocytes % 2.9 %; Mean Corpuscular HGB Conc 34.3 g/dL (30.0-36.0); Mean Corpuscular Hemoglobin 31.2 pg (28.0-34.0); Mean Platelet Volume 9.8 fL (7.4-10.4); Monocytes # 1.1 10^3/uL (0.2-0.9); Monocytes % 6.9 %; Neutrophils # 13.91 10^3/uL (1.8-7.7); Neutrophils % 89.1 %; Nucleated Red Blood Cells % 0 %; Platelet Count 195 10^3/cmm (130-400); Red Blood Count 2.21 10^6/uL (4.1-5.3); Red Cell Distribution Width 14.8 % (12.1-15.1); White Blood Count 15.6 10^3/uL (4.0-10.0)
[2021-05-26 05:11] LABS: Hematocrit 20.1 % (42.0-52.0)
[2021-05-26 05:27] LABS: Alanine Aminotransferase 12 U/L (0-41); Albumin Level 1.9 g/dL (3.5-5.2); Alkaline Phosphatase 98 IU/L (40-130); Blood Urea Nitrogen 23 mg/dL (6-20); Calcium 7.4 mg/dL (8.5-10.5); Carbon Dioxide 22 mmol/L (22-29); Chloride 85 mmol/L (98-107); Creatinine Clr Calc Pharmacy 46.2083; Globulin 2.9 g/dL (1.3-4.6); Glomerular Filtration Rate 26.8 mL/min (90-130); Glucose 100 mg/dL (65-115); Osmolality Calculated 248 mOsm/kg (285-295); Total Bilirubin 0.8 mg/dL (0.15-1.2); Total Protein 4.8 g/dL (6.6-8.7)
[2021-05-26 05:35] LABS: Anion Gap 15.4 (5-19); Aspartate Amino Transferase 26 U/L (0-40); Potassium 5.4 mmol/L (3.5-5.1); Sodium 117 mmol/L (136-145)
[2021-05-26] MEDS: Dianeal low Ca w/1.5% dex 2,000 mL Bag 2000 ML INTRAPERIT ×4 (06:20→23:23)
[2021-05-26] MEDS: sucralfate 1 gm/10 mL Oral Liq UDC PO ×4 (06:24→20:51)
[2021-05-26] MEDS: thiamine 100 mg Tablet 250 MG PO (06:25)
[2021-05-26] MEDS: dilTIAZem ER (24HR) 120 mg Capsule PO (06:25)
--- NOTE | 2021-05-26 07:59 | P.PN_ITS ---
Subjective Subjective: Interval history: Mr. Soto is doing okay today. He still has diffuse abdominal pain. The peritoneal drain effluent looks slightly pink- tinged but is clearing up. Mild extremity edema. He has not passed any urine yet today. Sodium noted to be 117, potassium is coming down. Blood pressure remains somewhat soft. No other acute issues today. Vitals/I&O/Wt Last Vital Signs Temp 98.3 F 05/26/21 07:16 Pulse 90 05/26/21 07:16 Resp 15 05/26/21 07:16 BP 102/69 05/26/21 07:16 Pulse Ox 94 05/26/21 07:16 05/25/21 05/26/21 05/26/21 22:59 06:59 14:59 Intake Total 2718 / 2936 2100 / 5036 Output Total 1150 / 2300 1400 / 3700 Balance 1568 / 636 700 / 1336 Weight last 48 hrs Weight 134.127 kg Weight 128.73 kg Weight 129.274 kg Weight 127.459 kg Weight 120.202 kg Physical Exam Narrative: EXAM NARRATIVE: Constitutional: Awake, comfortable HEENT: Wet mucosa, no jvp, non icteric Lungs: Bilaterally clear without discernible wheeze, rales in all lung zones CVS: S1 S2, no murmurs Abdo: Soft, BS ok, PD exit site looks good Ext 4: 1+ edema, peripheral perfusion with no cyanosis Neurological: Grossly non-focal Data : 05/26/21 04:05 05/26/21 04:05 Micro: Microbiology 05/24/21 19:59 Blood Culture - Preliminary Blood NEGATIVE TO DATE 05/24/21 19:36 Blood Culture - Preliminary Blood NEGATIVE TO DATE 05/25/21 00:20 Gram Stain - Final Ascites Fluid 05/25/21 00:45 Gram Stain - Final Abdomen A&P Additional A&P Information 1. Acute kidney injury Likely to be prerenal in nature, urine sodium 31, urine creatinine 30, although this is nondiagnostic given his recent exposure to diuretics. Could be hepatorenal physiology also present. Renal function is relatively stable. Increase midodrine to 10mg tid Lasix x 1 iv today Current PD prescription is 2 L of 1.5% solution 6 times per day, changes to 5 times per day to give him a long, 8-hour dwell. Daily renal panel, strict I's and O's Avoid usual nephrotoxic agents. 2. Peritonitis Of note back in March he had a number of bacteria grown out from the fluid that was draining from his peritoneal catheter. This included Enterococcus faecalis, a pansensitive bacteria, Klebsiella, sensitive to imipenem and Cipro and he also had E. coli in his urine. This was also sensitive species. Culture of peritoneal fluid sent and pending. Blood cultures pending. He is currently on Primaxin and Cipro, will add IP vancomycin with his longest well. We will do peritoneal cell count, Gram stain and culture every few days to ensure response to antibiotics > repeat today This appears to be a recurrent issue, he did have this 2 months ago, at this time we need to start thinking about removing this peritoneal catheter alto gether. 3. Chemistry This is likely consequence of diuretic therapy as well as potassium supplemen tation. 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
--- NOTE | 2021-05-26 08:13 | CTR_ITS ---
PROCEDURE INFORMATION: Exam: CT Chest Without Contrast; Diagnostic Exam date and time: 05/26/2021 8:13 AM Age: 56 years old Clinical indication: Other: Sepsis; Shortness of breath TECHNIQUE: Imaging protocol: Diagnostic computed tomography of the chest without contrast. Total images: 583 Radiation optimization: All CT scans at this facility use at least one of these dose optimization techniques: automated exposure control; mA and/or kV adjustment per patient size (includes targeted exams where dose is matched to clinical indication); or iterative reconstruction. COMPARISON: CT chest [facility] [id number] 12/11/2020 3:24 AM RADIATION DOSE METRICS: Total DLP (mGy-cm): 2621.3 FINDINGS: Lungs: Compressive atelectasis of the left lung base. Compressive atelectasis of the right lung base. Benign granulomatous disease of the lung is noted. Pleural spaces: Moderate left pleural effusion. Small right pleural effusion. Heart: Unremarkable. No cardiomegaly. No pericardial effusion. Aorta: Unremarkable. No aortic aneurysm. Lymph nodes: Unremarkable. No enlarged lymph nodes. Bones/joints: Old right rib fractures are evident. Soft tissues: Unremarkable. IMPRESSION: 1. Moderate left pleural effusion with compressive atelectasis. 2. Small right pleural effusion with compressive atelectasis. PROCEDURE INFORMATION: Exam: CT Abdomen And Pelvis Without Contrast Exam date and time: 05/26/2021 8:13 AM Age: 56 years old Clinical indication: Other: Sepsis; Shortness of breath TECHNIQUE: Imaging protocol: Computed tomography of the abdomen and pelvis without contrast. Radiation optimization: All CT scans at this facility use at least one of these dose optimization techniques: automated exposure control; mA and/or kV adjustment per patient size (includes targeted exams where dose is matched to clinical indication); or iterative reconstruction. COMPARISON: CT chest [facility] [id number] 12/11/2020 3:24 AM RADIATION DOSE METRICS: Total DLP (mGy-cm): 2621.3 FINDINGS: Liver: Hepatic cirrhosis is evident. Gallbladder and bile ducts: Normal. No calcified stones. No ductal dilation. Pancreas: Normal. No ductal dilation. Spleen: Incidental splenic granuloma. Adrenal glands: Normal. No mass. Kidneys and ureters: Normal. No hydronephrosis. Stomach and bowel: Colonic diverticulosis is present without diverticulitis. Appendix: No evidence of appendicitis. Intraperitoneal space: Peritoneal dialysis catheter is located in the right lower quadrant with large amount of free fluid in the abdomen. Small amount of free air is seen within the abdomen felt to be secondary to peritoneal dialysis. Vasculature: Incidental phleboliths noted. Mild atherosclerotic disease is evident. Lymph nodes: Unremarkable. No enlarged lymph nodes. Urinary bladder: Unremarkable as visualized. Reproductive: Unremarkable as visualized. Bones/joints: Old right transverse process fractures in the lumbar spine. Soft tissues: Unremarkable. CT/CT chest abd pel wo con IMPRESSION: 1. Hepatic cirrhosis is evident. 2. Peritoneal dialysis catheter is located in the right lower quadrant with large amount of free fluid in the abdomen. 3. Small amount of free air is seen within the abdomen felt to be secondary to peritoneal dialysis. 4. Colonic diverticulosis is present without diverticulitis. Radiation Dose CTDIVOL = (mGy): DLP = 2621.3~2621.3 (mGy-cm)
[2021-05-26] MEDS: FUROsemide 10 mg/mL SDV 4mL 40 MG IVP (09:59)
[2021-05-26] MEDS: sodium chloride 1 gm Tablet 2 GM PO ×3 (10:01→20:50)
[2021-05-26] MEDS: folic acid 1 mg Tablet PO (10:02)
[2021-05-26] MEDS: midodrine 5 mg TABLET 10 MG PO ×3 (10:02→20:50)
[2021-05-26] MEDS: ferrous sulfate EC 325 mg Tablet PO (10:02)
[2021-05-26] MEDS: pantoprazole DR 40 mg Tablet PO ×2 (10:02→16:59)
[2021-05-26] MEDS: ciprofloxacin 500 mg Tablet PO (10:03)
[2021-05-26 10:29] LABS: Procalcitonin 2.49 ng/mL (0-0.5)
[2021-05-26 10:44] LABS: Polynuclear # Cells, Perit 0.856 10^3/uL
[2021-05-26 11:08] LABS: Appearance, Peritoneal Fluid Cloudy (Clear); Color, Peritoneal Fluid Slight Pink (Pale Yellow)
[2021-05-26] MEDS: heparin 5,000 unit/mL INJ 1 mL 5000 UNIT SUBCUT ×2 (11:15→23:23)
[2021-05-26 11:17] LABS: RBC Pertioneal Fluid 2 10^3/uL; WBC Peritoneal Fluid 1046 /uL
--- NOTE | 2021-05-26 11:30 | PC.OT ---
OT Eval held, as hgb too low for therapy per protocol, will attempt tomorrow if improves.
[2021-05-26] MEDS: HYDROcodone-acetaminophen 5-325 mg Tablet 1 TAB PO ×2 (12:50→20:52)
[2021-05-26] MEDS: alfuzosin 10 mg ER Tablet PO (12:50)
[2021-05-26] MEDS: sodium chloride 0.9% (100 ml) 100 ML (12:51)
--- NOTE | 2021-05-26 13:08 | P.PN_ITS ---
Subjective Subjective: Interval history: No events overnight. Today morning examination he feels bloated. Denies any nausea, vomiting, headache. States he is feeling weak but better than on admission. Sodium level has improved mildly 217 potassium has improved as well. Blood pressures have remained borderline and patient has remained afebrile. Vitals/I&O/Wt Last Vital Signs Temp 98 F 05/26/21 12:59 Pulse 87 05/26/21 12:59 Resp 18 05/26/21 12:59 BP 95/72 05/26/21 12:59 Pulse Ox 95 05/26/21 12:59 05/25/21 05/26/21 05/26/21 22:59 06:59 14:59 Intake Total 2718 / 2936 2100 / 5036 0 / 0 Output Total 1150 / 2300 1400 / 3700 175 / 175 Balance 1568 / 636 700 / 1336 -175 / -175 Weight last 48 hrs Weight 134.127 kg Weight 128.73 kg Weight 129.274 kg Weight 127.459 kg Weight 120.202 kg Physical Exam Narrative: EXAM NARRATIVE: General: No acute distress, AO x3, pale, dehydrated, chronically sick appearing HEENT: PERRLA, pupils bilaterally equal and reactive Chest: Normal vesicular breath sounds, no added sounds, equal good air entry bilaterally CVS: S1-S2 irregularly irregular, no murmurs, no tachycardia, no gallops, no rubs Abdomen: Soft, nontender, mildly distended, no organomegaly, bowel sounds present, redness present in the lower quadrant up to the navel area, peritoneal catheter present without any sign of granulation Neuro: No focal deficits, no facial deformity, AO x3, power 5/5 in all limbs Data : 05/26/21 04:05 05/26/21 04:05 Micro: Microbiology 05/25/21 00:20 Gram Stain - Final Ascites Fluid Body Fluid Culture - Preliminary Gram Negative Rods 05/25/21 22:00 Gram Stain - Final Peritoneal Fluid 05/24/21 19:59 Blood Culture - Preliminary Blood NEGATIVE TO DATE 05/24/21 19:36 Blood Culture - Preliminary Blood NEGATIVE TO DATE 05/25/21 00:45 Gram Stain - Final Abdomen A&P Assessment and plan (1) Acute hyponatremia: Status: Acute (2) Hyperkalemia: Status: Acute (3) Hepatorenal syndrome: Status: Acute (4) Peritonitis: Status: Acute (5) End-stage liver disease: Status: Acute (6) Alcoholic cirrhosis of liver with ascites: Status: Acute (7) Atrial fibrillation and flutter: Status: Acute (8) CHF (congestive heart failure), NYHA class III: Status: Acute Qualifiers: Congestive heart failure chronicity: unspecified Congestive heart failure type: systolic Qualified Code(s): I50.20 - Unspecified systolic (congestive) heart failure (9) ETOH abuse: Status: Acute (10) Peritoneal dialysis catheter in situ: Status: Acute (11) Anemia: Status: Acute Additional A&P Information Acute hyponatremia: Baseline sodium around 130-1 35. Symptomatic. Fluid restriction to 1200 cc. Increase Salt tablets 2 g every 8 hourly. Recheck BMP every 6 hour. Hyperkalemia:Improving. Most likely a combination of home dose of spironolactone, oral potassium supplementation. Repeat Kayexalate. Telemetry. [facility] nephrology recs. End-stage liver disease/alcoholic liver cirrhosis: Hepatorenal syndrome: Peritoneal dialysis catheter in situ: PD fluid analysis consistent with PD peritonitis. On culture review has a history of PD peritonitis with Enterobacter and Klebsiella earlier this year. Start patient on imipenem IV, vancomycin intraperitoneal. Fluid Cx for now consistent with GNR. This is his 3rd PD peritonitis this year and most likely will need for PD catheter to be removed. Possible transition to HD. Blood cultures so far negative. Increase midodrine to 10 mg 3 times daily. Continue with home dose of empiric ciprofloxacin. Continue with home dose of lactulose 3 times daily as needed. We will try to get at least 2-3 soft bowel movements every shift. Check CT abdomen pelvis chest. History of alcohol abuse: [facility] protocol. Oral thiamine, folic acid. Atrial fibrillation: Rate controlled. Continue home dose of Cardizem. Not on anticoagulation for chronic anemia. Congestive heart failure: Echocardiogram done in 2020 shows a multi wall hypokinesia with EF of 40 to 45% with biatrial enlargement. Currently well compensated. Will dose 40 mg IV lasix today. We will continue to monitor fluid status. Anemia:Hb trending down. Less than 7 today. Will transfuse 2 units PRBC today and give one lasix in between. Target Hb more than 8. Continue home dose of oral iron supplementation. Stool for occult blood positive in the past. Protonix 40 mg twice daily, Carafate. Will consult Sx for possible EGD and colonoscopy. CODE STATUS: Full code. Dialysis low potassium diet. Protonix for PUD prophylaxis. Attestations Medical Necessity Statement*: Further hospitalization for hyponatremia, hyperkalemia, hepato-renal syndrome, anemia due to GI bleed in setting of CHF. Time Spent in Patient Care: Greater than 35 minutes (>than 50% of time spent in counselling and/or direct pt care on unit) . Coding Level of Care Code Acute Slab Conditioner Supervisor for g Fwd Diagnoses Acute hyponatremia E87.1 Hyperkalemia E87.5 Hepatorenal syndrome K76.7 Peritonitis K65.9 End-stage liver disease K72.90 Alcoholic cirrhosis of liver with ascites K70.31 Atrial fibrillation and flutter I48.91; I48.92 CHF (congestive heart failure), NYHA class III I50.20 Congestive heart failure chronicity: unspecified Congestive heart failure type: systolic ETOH abuse F10.10 Peritoneal dialysis catheter in situ Z99.2 Anemia D64.9
--- NOTE | 2021-05-26 13:52 | PM.CONSULT ---
Providers/Reason For Consult Consulting Physician/Specialty*: Gabino Clark MD Reason for Consult*: GI bleed Requesting Physician: Attending Physician: Sourav Meyer MD Primary Care Provider: Yosvany Segovia MD History of Present Illness History of Present Illness Chief complaint Feeling weak HPI Mr Yosvany Soto is a 56 year old male the past medical history of multiple medical comorbidities in the form of chronic liver disease associated with cirrhosis, chronic hyponatremia, hepatorenal syndrome, spontaneous bacterial peritonitis and history of peritoneal dialysis catheter placement. Also patient does give history of esophageal varices as a sequelae of liver cirrhosis secondary to chronic alcohol abuse. Patient have history of recurrent hospital admissions and appears that he has worsening weakness over the past few days and as his symptoms got worse, presented to the emergency department and he was admitted to the hospitalist service for further evaluation and care. Blood work in the ER showed a white count 12.8, hemoglobin of 7.3, INR of 1.5, sodium of 113, potassium of 7.1, creatinine of 2, BUN of 28, UA negative for any signs of infection. Occult blood positive in stool was detected and in the presence of worsening drop in hemoglobin down to 6.9 g. General surgery was consulted for potential intervention in the form of EGD and colonoscopy Patient reports that he has been following with Dr. Cleaning in [facility] for surveillance for his esophageal varices and last time he had an EGD about 6 months ago and no rubber band ligation was required at that time but before that he did have some. Also had a colonoscopy few years ago and he found what he described it as varicose veins in his colon . Likely the patient has shunting that showed secondary hemorrhoids of the rectum due to portal hypertension. Patient recalls before few days he had a nonbloody bowel movement. CT Chest IMPRESSION: 1. Moderate left pleural effusion with compressive atelectasis. 2. Small right pleural effusion with compressive atelectasis. CT ABdomen and Pelvis: 1. Hepatic cirrhosis is evident. 2. Peritoneal dialysis catheter is located in the right lower quadrant with large amount of free fluid in the abdomen. 3. Small amount of free air is seen within the abdomen felt to be secondary to peritoneal dialysis. 4. Colonic diverticulosis is present without diverticulitis. Renal U/S 1. No acute finding. 2. Suboptimal visualization of the kidneys. Calculated MELD score 30 points with 52.6 estimated 3-month mortality Review of Systems General: Reports: 10 or more systems reviewed and unremarkable except in HPI and below Meds/Allergies Home Medications and Allergies Home Medications Medication Instructions Recorded Confirmed Last Taken Type pantoprazole 40 mg tablet,delayed 40 mg PO DAILY@10 01/04/20 05/24/21 05/24/21 10:30 History release vitamin B complex 1 tab PO DAILY@16 01/04/20 05/24/21 05/23/21 History tramadol 100 mg PO DAILY PRN 05/05/20 05/24/21 05/24/21 10:30 History 50 MG Ocuvite Adult 50 Plus 1 cap PO PRN 08/04/20 05/24/21 01/12/21 History folic acid 1 mg PO DAILY@10 08/23/20 05/24/21 05/24/21 10:30 History [place] boot #1 ea 09/01/20 05/24/21 Unknown Rx fluticasone propionate 1 - 2 spray INTRANASAL DAILY PRN 09/08/20 05/24/21 03/30/21 History [place] #1 ea NS 10/02/20 05/24/21 Unknown Rx albuterol sulfate 2 inh INHALATION Q4H PRN 12/11/20 05/24/21 Unknown History PreserVision AREDS 1 cap PO DAILY 02/11/21 05/24/21 03/30/21 History ferrous sulfate 27 mg PO DAILY 02/11/21 05/24/21 05/23/21 History thiamine HCl (vitamin B1) [Vitamin 250 mg PO QAM 02/11/21 05/24/21 05/24/21 10:30 History B-1] [place] Boot to the left and an #1 ea 03/23/21 05/24/21 Unknown Rx even-up applied to the right foot midodrine 5 mg PO BID 03/30/21 05/24/21 05/24/21 10:30 History diltiazem HCl 120 mg 120 mg PO QAM 04/24/21 05/24/21 05/24/21 10:30 History capsule,extended release 24 hr tiotropium bromide 2.5 2 puff INHALATION DAILY #4 g 05/02/21 05/24/21 Unknown Rx mcg/actuation mist for inhalation alfuzosin 10 mg PO DAILY@13 05/24/21 05/24/21 05/23/21 History cetirizine [Zyrtec] 10 mg PO DAILY PRN 05/24/21 05/24/21 Unknown History ciprofloxacin HCl [Cipro] 500 mg PO DAILY 05/24/21 05/24/21 05/24/21 10:30 History furosemide 60 mg PO QAM 05/24/21 05/24/21 05/24/21 History 60 MG lactulose 30 ml PO TID PRN 05/24/21 05/24/21 Unknown History meloxicam 7.5 mg PO DAILY 05/24/21 05/24/21 05/24/21 10:30 History potassium chloride 20 meq PO BID 05/24/21 05/24/21 05/24/21 10:30 History spironolactone 50 mg PO QAM 05/24/21 05/24/21 05/24/21 10:30 History Allergies Allergy/AdvReac Type Severity Reaction Status Date / Time Penicillins Allergy ALGY-Difficulty Verified 05/26/21 15:16 Breathing Sulfa (Sulfonamide Allergy Unknown Verified 05/26/21 15:16 Antibiotics) Current Medications Current Medications Generic Name Dose Route Start Last Admin Trade Name Freq PRN Reason Stop Dose Admin Hydrocodone Bitart/Acetaminophen 1 tab 05/24/21 23:04 05/26/21 12:50 Hydrocodone-Acetaminophen 5-325 Mg Tablet PO 1 tab Q8H PRN Administration MODERATE TO SEVERE PAIN Alfuzosin HCl 10 mg 05/25/21 13:00 05/26/21 12:50 Alfuzosin 10 Mg Er Tablet PO 10 mg DAILY@13 DHAVAL Administration Ciprofloxacin HCl 500 mg 05/25/21 09:00 05/26/21 10:03 Ciprofloxacin 500 Mg Tablet PO 500 mg DAILY DHAVAL Administration Protocol Diltiazem HCl 120 mg 05/25/21 06:00 05/26/21 06:25 Diltiazem Er (24hr) 120 Mg Capsule PO 120 mg QAM DHAVAL Administration Ferrous Sulfate 325 mg 05/25/21 09:00 05/26/21 10:02 Ferrous Sulfate Ec 325 Mg Tablet PO 325 mg DAILY DHAVAL Administration Folic Acid 1 mg 05/25/21 10:00 05/26/21 10:02 Folic Acid 1 Mg Tablet PO 1 mg DAILY@10 DHAVAL Administration Heparin Sodium (Beef Lung) 5,000 unit 05/24/21 23:04 05/26/21 11:15 Heparin 5,000 Unit/Ml Inj 1 Ml SUBCUT 5,000 unit Q12H DHAVAL Administration Imipenem/Cilastatin Sodium 250 100 mls @ 200 mls/hr 05/25/21 09:15 05/26/21 10:00 mg/ Sodium Chloride IV 200 mls/hr Q6H DHAVAL Administration Protocol Lactulose 20 gm 05/24/21 23:04 05/25/21 20:18 Lactulose Oral Liq 20 Gm/30 Ml Udc PO 20 gm TID PRN Administration SEE PHARMACY COMMENTS Midodrine 10 mg 05/26/21 09:00 05/26/21 10:02 Midodrine 5 Mg Tablet PO 10 mg TID DHAVAL Administration Morphine Sulfate 2 mg 05/24/21 16:46 05/25/21 20:28 Morphine 4 Mg/Ml Sdv 1 Ml IVP 2 mg Q4H PRN Administration SEVERE PAIN Ondansetron HCl 4 mg 05/24/21 16:46 05/25/21 17:02 Ondansetron 2 Mg/Ml Sdv 2 Ml IVP 4 mg Q6H PRN Administration NAUSEA AND VOMITING Pantoprazole Sodium 40 mg 05/25/21 18:00 05/26/21 10:[address] 40 Mg Tablet PO 40 mg BID DHAVAL Administration Peritoneal Dialysis Solution 2,000 ml 05/25/21 20:00 05/26/21 10:42 Dianeal Low Ca W/1.5% Dex 2,000 Ml Bag INTRAPERIT 2,000 ml 5XD DHAVAL Administration Fluticasone/Salmeterol 1 puff 05/25/21 08:00 05/26/21 08:38 Fluticasone-Salmeterol 250-50 Diskus INHALATION 1 puff BID.RESPIRATORY DHAVAL Administration Sodium Chloride 2 gm 05/26/21 09:00 05/26/21 10:01 Sodium Chloride 1 Gm Tablet PO 2 gm TID DHAVAL Administration Sucralfate 1 gm 05/25/21 17:00 05/26/21 11:15 Sucralfate 1 Gm/10 Ml Oral Liq Udc PO 1 gm AC&BEDTIME DHAVAL Administration Thiamine Mononitrate 250 mg 05/25/21 06:00 05/26/21 06:25 Thiamine 100 Mg Tablet PO 250 mg QAM DHAVAL Administration PFSH Acute PFSH: Medical History Acute dyspnea Acute encephalopathy Acute hypokalemia Acute hyponatremia Ascites Ascites due to alcoholic cirrhosis Ataxia Atrial fibrillation and flutter Echocardiogram done in 2019 shows an EF of 40 to 45% with hypokinetic septum, anteroseptum and inferior wall, biatrial enlargement Atrial fibrillation with RVR BPH loc w urin obs/LUTS Charcot's arthropathy Charcot's joint of left foot Chest pain Pleuritic chest pain: Resolved; CHF (congestive heart failure), NYHA class III Chronic hyponatremia End-stage liver disease Erectile dysfunction ETOH abuse Fracture of fourth metatarsal bone of left foot Fracture of second metatarsal bone of left foot Fracture of third metatarsal bone of left foot Hepatorenal syndrome History of abdominal paracentesis Hx of esophageal varices Hyperkalemia Hyponatremia Hyponatremia with excess extracellular fluid volume Laceration of left foot Neuropathy Non-pressure chronic ulcer of other part of left foot limited to breakdown of skin Peritoneal dialysis catheter in situ Peyronie disease Pleural effusion Pleural effusion associated with hepatic disorder Pneumonia PVD (peripheral vascular disease) Surgical History H/O colonoscopy 10-12 yrs H/O esophagogastroduodenoscopy History of tonsillectomy Hx of umbilical hernia repair Hx of vasectomy Status post surgery (07/05/20) peritoneal catheter for ascites Family History Grandfather CAD (coronary artery disease) Grandmother CAD (coronary artery disease) Cancer Father Cancer Denies family history of Anesthesia complication Bleeding disorder Social History Quit status (tobacco): has quit using tobacco Year quit tobacco: 2014 less than a [id number] Second hand smoke exposure: No Smoking risk assessment/counseling performed?: Yes Alcohol intake: current Alcohol intake frequency: 3 or more drinks per day Alcohol type: beer Adopted: No Caregiver/support person: Yes Lives independently: Yes Household members: children Marital status: Current occupational status: unemployed Pets and animals: Yes History of recent travel: No Current gender identity: Male Vitals/I&O/Wt Last Vital Signs Temp 98 F 05/26/21 13:15 Pulse 81 05/26/21 13:15 Resp 18 05/26/21 13:15 BP 95/52 05/26/21 13:15 Pulse Ox 96 05/26/21 13:15 05/25/21 05/26/21 05/26/21 22:59 06:59 14:59 Intake Total 2718 / 2936 2100 / 5036 230 / 230 Output Total 1150 / 2300 1400 / 3700 175 / 175 Balance 1568 / 636 700 / 1336 55 / 55 Weight last 48 hrs Weight 295 lb 11.2 oz Weight 283 lb 12.8 oz Weight 285 lb Weight 281 lb Physical Exam Narrative: EXAM NARRATIVE: Patient is conscious alert oriented X3 No apparent distress BMI 40 Head and neck examination PERRLA no masses no cervical lymphadenopathy no jaundice Cardiac examination audible S1-S2 no murmurs no gallops no arrhythmias Chest is clear bilateral,abscence of Rhonchi or wheezes,no surgical emphysema Abdomen nontender.distended soft no organomegaly clinically appreciated otherwise no guarding or rigidity/no signs of peritonitis Present of right-sided peritoneal dialysis catheter in place with clear fluid Morbidly obese Bedside IV pole has a unit of packed RBCs infusing Data Micro: Micro: Microbiology 05/25/21 00:45 Gram Stain - Final Abdomen Abscess Culture - Preliminary 05/25/21 00:20 Gram Stain - Final Ascites Fluid Body Fluid Culture - Preliminary Gram Negative R ods 05/25/21 22:00 Gram Stain - Final Peritoneal Fluid 05/24/21 19:59 Blood Culture - Pr eliminary Blood NEGATIVE TO [facility] 05/24/21 19:36 Blood Culture - Pr eliminary Blood NEGATIVE TO [facility] A&P Assessment and plan (1) Occult blood in stools: After thorough history physical exam and reviewing the CT scan images with my personal interpretation that shows substantial anasarca and ascites. I did college admissions counselor the patient for diagnostic EGD. Plan of care; After thorough history and physical examination and reviewing the chart, plan to perform a diagnostic esophagogastroduodenoscopy with possible biopsy in the GI lab. I discussed with the patient in detail the risk,benefits,alternatives and indications.The risk of aspiration, bleeding, soft tissue injury, perforation of the stomach/esophagus and other potential concomitant complications were explained to the patient in details,aslo the potential need for Thoracic and or Abdominal surgery to repair any complications.The patient understood this well and did agree to proceed. Rationale was carefully and clearly discussed with the patient.Appropriate informed consent have been reviewed and signed All questions have been answered and all concerns have been addressed to patient's satisfaction. At this point I do not think performing a colonoscopy would be appropriate due to the fact of potential underlying spontaneous bacterial peritonitis with the colon prep and colonoscopy translocation of bacteria can be an issue that can make the condition worsened. Likely the patient would benefit from a colonoscopy down the road. I also explained for the patient that if there is esophageal varices appears on the EGD tomorrow likely would benefit from rubber band ligation, yet we do not carry the equipment in our facility and he has to be potentially transferred to [place] with that regard. Status: Acute Consult Attestations Medical Necessity Statement: Patient requiring inpatient hospitalization passing 2 midnights, for blood transfusion peritoneal dialysis and endoscopic intervention. Time Spent in Patient Care: 16 - 35 minutes (>than 50% of time spent in counselling and/or direct pt care on unit). 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
[2021-05-26] MEDS: vancomycin 1,000 MG SDV 1000 MG INTRAPERIT (14:02)
--- NOTE | 2021-05-26 14:34 | PC.NURSE ---
pt asked this nurse,if i knew where he could obtain a cap for the end of his peritoneal catheter.states he lost his cap a long time ago and has called his doctor office..and they didnt know what i was talking about .so,from what pt has said...pt has not had a sterile cap on the end of his peritoneal catheter for many weeks.i spoke with case management regarding this,as consideration at discharge.
[2021-05-26 15:37] LABS: Blood Urea Nitrogen 28 mg/dL (6-20); Calcium 7.1 mg/dL (8.5-10.5); Carbon Dioxide 24 mmol/L (22-29); Chloride 86 mmol/L (98-107); Glomerular Filtration Rate 25.6 mL/min (90-130); Glucose 103 mg/dL (65-115); Osmolality Calculated 256 mOsm/kg (285-295); Sodium 120 mmol/L (136-145)
[2021-05-26 15:40] LABS: Anion Gap 14.9 (5-19); Potassium 4.9 mmol/L (3.5-5.1)
[2021-05-26] MEDS: FUROsemide 10 mg/mL SDV 2mL 20 MG IVP (16:59)
--- NOTE | 2021-05-26 19:58 | PC.NURSE ---
Shift Note Frequent safety and comfort rounds continue. Orders and/or nursing care completed as indicated. Patient monitored for response to intervention and treatment(s). Education provided includes[prbc infusions,imipenin administration]. Patient and/or commissary representative verb understanding of instruction]. vancomycin instilled with dialysate as ordered.to dwell x 8 hrs.Will continue to monitor.
[2021-05-26 21:02] LABS: Anion Gap 15.6 (5-19); Blood Urea Nitrogen 27 mg/dL (6-20); Calcium 7.2 mg/dL (8.5-10.5); Carbon Dioxide 23 mmol/L (22-29); Chloride 87 mmol/L (98-107); Glomerular Filtration Rate 24.5 mL/min (90-130); Glucose 87 mg/dL (65-115); Osmolality Calculated 256 mOsm/kg (285-295); Potassium 4.6 mmol/L (3.5-5.1); Sodium 121 mmol/L (136-145)
--- NOTE | 2021-05-26 22:32 | PC.NURSE ---
Around 1904: Patients IV to right AC infitrated. PRBCs stopped. Removed IV, held pressure on site 2 minutes. GLEN Hunter, attempted to initiate IV access x 2 attempts, unsuccessfully. Requested assistance from ICU for ultrasound guided IV initiation. Around 2129: No assistance has been received for ultrasound guided IV initiation from ICU. Remainder of the blood product discarded in biohazard. Notified notified Dr. Watson, hospitalist. Orders received to re-order type and screen and 1 unit of PRBCs after IV access in obtained.
[2021-05-27] VITALS (36 sets, daily range): BP systolic 84–119; BP diastolic 56–71; PULSE 72–102; RESP 13–24; TEMP 36.2–36.8; O2SAT 20–99
[2021-05-27 00:34] LABS: Basophils % 0.3 %; Eosinophils # 0.2 10^3/uL (0.0-0.8); Eosinophils % 2.2 %; Hematocrit 22.2 % (42.0-52.0); Hemoglobin 7.5 g/dL (11.7-16.6); Lymphocytes # 0.6 10^3/uL (0.8-4.8); Lymphocytes % 5.8 %; Mean Corpuscular HGB Conc 33.8 g/dL (30.0-36.0); Mean Corpuscular Hemoglobin 30.9 pg (28.0-34.0); Mean Corpuscular Volume 91.4 fl (80-94); Mean Platelet Volume 9.3 fL (7.4-10.4); Monocytes # 1.3 10^3/uL (0.2-0.9); Neutrophils % 78.6 %; Nucleated Red Blood Cells % 0 %; Platelet Count 179 10^3/cmm (130-400); Red Blood Count 2.43 10^6/uL (4.1-5.3); Red Cell Distribution Width 14.6 % (12.1-15.1); White Blood Count 10.9 10^3/uL (4.0-10.0)
--- NOTE | 2021-05-27 03:17 | PC.NURSE ---
Around 0145: Patient requested eye drops for dry eyes. Notified Dr. Watson, Hosptalist. Orders received, see NOV.
[2021-05-27] MEDS: sucralfate 1 gm/10 mL Oral Liq UDC PO ×4 (05:05→20:14)
[2021-05-27] MEDS: HYDROcodone-acetaminophen 5-325 mg Tablet 1 TAB PO (05:06)
[2021-05-27] MEDS: thiamine 100 mg Tablet 250 MG PO (05:07)
[2021-05-27 05:35] LABS: Basophils % 0.3 %; Eosinophils # 0.2 10^3/uL (0.0-0.8); Eosinophils % 2.3 %; Hematocrit 25.8 % (42.0-52.0); Hemoglobin 8.8 g/dL (11.7-16.6); Lymphocytes # 0.7 10^3/uL (0.8-4.8); Lymphocytes % 6.4 %; Mean Corpuscular HGB Conc 34.1 g/dL (30.0-36.0); Mean Corpuscular Hemoglobin 30.6 pg (28.0-34.0); Mean Corpuscular Volume 89.6 fl (80-94); Mean Platelet Volume 9.3 fL (7.4-10.4); Monocytes # 1.4 10^3/uL (0.2-0.9); Monocytes % 12.7 %; Neutrophils % 77.1 %; Nucleated Red Blood Cells % 0 %; Platelet Count 198 10^3/cmm (130-400); Red Blood Count 2.88 10^6/uL (4.1-5.3); Red Cell Distribution Width 14.4 % (12.1-15.1); White Blood Count 10.6 10^3/uL (4.0-10.0)
[2021-05-27] MEDS: artificial tears Op Soln 15 mL Btl 1 DROP EYE-BOTH (05:45)
[2021-05-27] MEDS: dilTIAZem ER (24HR) 120 mg Capsule PO (05:47)
[2021-05-27 06:14] LABS: Procalcitonin 2.47 ng/mL (0-0.5)
[2021-05-27 06:15] LABS: Alanine Aminotransferase 13 U/L (0-41); Alkaline Phosphatase 91 IU/L (40-130); Anion Gap 16.2 (5-19); Aspartate Amino Transferase 25 U/L (0-40); Blood Urea Nitrogen 27 mg/dL (6-20); Calcium 7.1 mg/dL (8.5-10.5); Carbon Dioxide 22 mmol/L (22-29); Chloride 87 mmol/L (98-107); Globulin 2.5 g/dL (1.3-4.6); Glomerular Filtration Rate 24.5 mL/min (90-130); Glucose 80 mg/dL (65-115); Osmolality Calculated 256 mOsm/kg (285-295); Potassium 4.2 mmol/L (3.5-5.1); Sodium 121 mmol/L (136-145); Total Bilirubin 1.2 mg/dL (0.15-1.2); Total Protein 4.5 g/dL (6.6-8.7)
--- NOTE | 2021-05-27 07:12 | PM.PN ---
Subjective Subjective: Interval history: feels better. nervous about EGD- as has h/o esophageal varices and banding Medications: Reviewed: Yes Medication Review Details: Current Medications Hydrocodone Bitart/Acetaminophen (Hydrocodone-Acetaminophen 5-325 Mg Tablet) 1 tab PO Q8H PRN PRN Reason: MODERATE TO SEVERE PAIN Last Admin: 05/27/21 05:06 Dose: 1 tab Documented by: Alfuzosin HCl (Alfuzosin 10 Mg Er Tablet) 10 mg PO DAILY@13 [facility] Last Admin: 05/26/21 12:50 Dose: 10 mg Documented by: Artificial Tears (Artificial Tears Op Soln 15 Ml Btl) 1 drop EYE-BOTH Q4H PRN PRN Reason: DRY EYE(S) Last Admin: 05/27/21 05:45 Dose: 1 drop Documented by: Ciprofloxacin HCl (Ciprofloxacin 500 Mg Tablet) 500 mg PO DAILY [facility]; Protocol Last Admin: 05/26/21 10:03 Dose: 500 mg Documented by: Diltiazem HCl (Diltiazem Er (24hr) 120 Mg Capsule) 120 mg PO QAM [facility] Last Admin: 05/27/21 05:47 Dose: 120 mg Documented by: Ferrous Sulfate (Ferrous Sulfate Ec 325 Mg Tablet) 325 mg PO DAILY [facility] Last Admin: 05/26/21 10:02 Dose: 325 mg Documented by: Folic Acid (Folic Acid 1 Mg Tablet) 1 mg PO DAILY@10 [facility] Last Admin: 05/26/21 10:02 Dose: 1 mg Documented by: Heparin Sodium (Beef Lung) (Heparin 5,000 Unit/Ml Inj 1 Ml) 5,000 unit SUBCUT Q12H [facility] Last Admin: 05/26/21 23:23 Dose: 5,000 unit Documented by: Imipenem/Cilastatin Sodium 250 (mg/ Sodium Chloride) 100 mls @ 200 mls/hr IV Q6H [facility]; Protocol Last Admin: 05/27/21 04:28 Dose: 200 mls/hr Documented by: Sodium Chloride (Sodium Chloride 0.9%) 1,000 mls @ 30 mls/hr IV .Q24H ONE Stop: 05/27/21 15:23 Last Admin: 05/26/21 17:02 Dose: Not Given Documented by: Lactulose (Lactulose Oral Liq 20 Gm/30 Ml Udc) 20 gm PO TID PRN PRN Reason: SEE PHARMACY COMMENTS Last Admin: 05/25/21 20:18 Dose: 20 gm Documented by: Midodrine (Midodrine 5 Mg Tablet) 10 mg PO TID [facility] Last Admin: 05/26/21 20:50 Dose: 10 mg Documented by: Morphine Sulfate (Morphine 4 Mg/Ml Sdv 1 Ml) 2 mg IVP Q4H PRN PRN Reason: SEVERE PAIN Last Admin: 05/25/21 20:28 Dose: 2 mg Documented by: Ondansetron HCl (Ondansetron 2 Mg/Ml Sdv 2 Ml) 4 mg IVP Q6H PRN PRN Reason: NAUSEA AND VOMITING Last Admin: 05/25/21 17:02 Dose: 4 mg Documented by: Pantoprazole Sodium (Pantoprazole Dr 40 Mg Tablet) 40 mg PO BID [facility] Last Admin: 05/26/21 16:59 Dose: 40 mg Documented by: Peritoneal Dialysis Solution (Dianeal Low Ca W/1.5% Dex 2,000 Ml Bag) 2,000 ml INTRAPERIT 5XD [facility] Last Admin: 05/26/21 23:23 Dose: 2,000 ml Documented by: Fluticasone/Salmeterol (Fluticasone-Salmeterol 250-50 Diskus) 1 puff INHALATION BID.RESPIRATORY [facility] Last Admin: 05/26/21 21:20 Dose: 1 puff Documented by: Sodium Chloride (Sodium Chloride 1 Gm Tablet) 2 gm PO TID [facility] Last Admin: 05/26/21 20:50 Dose: 2 gm Documented by: Sucralfate (Sucralfate 1 Gm/10 Ml Oral Liq Udc) 1 gm PO AC&BEDTIME [facility] Last Admin: 05/27/21 05:05 Dose: 1 gm Documented by: Thiamine Mononitrate (Thiamine 100 Mg Tablet) 250 mg PO QAM [facility] Last Admin: 05/27/21 05:07 Dose: 250 mg Documented by: Vitals/I&O/Wt Last Vital Signs Temp 98.3 F 05/27/21 04:25 Pulse 102 H 05/27/21 06:00 Resp 18 05/27/21 04:25 BP 96/69 05/27/21 04:25 Pulse Ox 99 05/27/21 04:25 05/26/21 05/27/21 05/27/21 22:59 06:59 14:59 Intake Total 616.75 / 946.75 450 / 1396.75 Output Total 350 / 525 Balance 616.75 / 771.75 100 / 871.75 Weight last 48 hrs Weight 135.261 kg Weight 134.127 kg Physical Exam Narrative: EXAM NARRATIVE: swollen in bed, NARD vs noted- hr high, low bp heent- nc/at, eomi neck supple lung -dull bases heart- irreg irreg, +MÓNICA abd soft, nt, +BS, + peritoneal dialysis catheter ext 1+ b/l leg edema neuro- a,a,o x 3 skin- eryethema on lower abd wall Data : 05/27/21 04:35 05/27/21 04:35 Micro: Microbiology 05/26/21 10:12 Gram Stain - Final Peritoneal Fluid 05/26/21 09:45 MRSA Culture - Final Nose 05/25/21 00:45 Gram Stain - Final Abdomen Abscess Culture - Preliminary 05/25/21 00:20 Gram Stain - Final Ascites Fluid Body Fluid Culture - Preliminary Gram Negative Rods 05/25/21 22:00 Gram Stain - Final Peritoneal Fluid A&P Additional A&P Information 1. Acute kidney injury Likely to be prerenal in nature, urine sodium 31, urine creatinine 30, although this is nondiagnostic given his recent exposure to diuretics. Could be hepatorenal physiology also present. - will hold PD- as going for ESGD- repeat chemistries this afternoon Daily renal panel, strict I's and O's Avoid usual nephrotoxic agents. 2. gram negative nicolette Peritonitis Of note back in March he had a number of bacteria grown out from the fluid that was draining from his peritoneal catheter. This included Enterococcus faecalis, a pansensitive bacteria, Klebsiella, sensitive to imipenem and Cipro and he also had E. coli in his urine. This was also sensitive species. Culture of peritoneal fluid sent and pending. Blood cultures pending. He is currently on Primaxin and Cipro, -s/p IP vancomycin yesterday. WPD cell count improved to 1046- check daily count, may need to remove PD catheter This appears to be a recurrent issue, he did have this 2 months ago, at this time we need to start thinking about removing this peritoneal catheter altogether. 3. anemia- ferritin 1127- not iron def -start ALYSA 4. hypoantremia - hold PD- give ns ivf and monitor 5. 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
--- NOTE | 2021-05-27 07:46 | ANES.PREANE2 ---
Pre-Anesthetic Assessment Pre-Anesthetic Assessment: Height/Weight: Height 1.83 m Weight 135.261 kg Temp Pulse Resp BP Pulse Ox 98.2 F 87 18 102/60 20 L 05/27/21 07:31 05/27/21 07:31 05/27/21 07:31 05/27/21 07:31 05/27/21 07:31 Preop Diagnosis: Ascites secondary to end-stage liver disease Proposed Procedure: Operation Date: 05/27/21 08:00 Proposed Procedures p EGD(Not Applicable) - Gabino Clark MD Was Beta Rosana taken within 24 hours: N/A Was Clonidine taken within 24 hours: N/A Social: Social History: Alcohol and Tobacco Exam: Pre-Anes Outpt Exam: alert and oriented x 3 Airway: Submandibular: WNL Cervical ROM: WNL MP: 2 Pulmonary: Pulmonary: COPD CV/HEM: CV/HEM: Afib and CHF : : Chronic renal failure Hepatic: Hepatic: Cirrohsis GI: GI: GERD Metabolic: Metabolic: None reported Musc/skel: Musc/skel: None reported Neuropsych: Neuropsych: None reported Anesthetic Plan: ASA status: 4E Anesthesia: MAC Meds/Allergies Current Medications: Current Medications Generic Name Dose Route Start Last Admin Trade Name Freq PRN Reason Stop Dose Admin Hydrocodone Bitart /Acetaminophen 1 tab 05/24/21 23:04 05/27/21 05:06 Hydrocodone-Acet aminophen 5-325 Mg Tablet PO 1 tab Q8H PRN Administration MODERATE TO SEVER E PAIN Alfuzosin HCl 10 mg 05/25/21 13:00 05/26/21 12:50 Alfuzosin 10 Mg Er Tablet PO 10 mg DAILY@13 DHAVAL Administration Artificial Tears 1 drop 05/27/21 04:51 05/27/21 05:45 Artificial Tears Op Soln 15 Ml Btl EYE-BOTH 1 drop Q4H PRN Administration DRY EYE(S) Ciprofloxacin HCl 500 mg 05/25/21 09:00 05/26/21 10:03 Ciprofloxacin 50 0 Mg Tablet PO 500 mg DAILY DHAVAL Administration Protocol Diltiazem HCl 120 mg 05/25/21 06:00 05/27/21 05:47 Diltiazem Er (24 hr) 120 Mg Capsule PO 120 mg QAM DHAVAL Administration Ferrous Sulfate 325 mg 05/25/21 09:00 05/26/21 10:02 Ferrous Sulfate Ec 325 Mg Tablet PO 325 mg DAILY DHAVAL Administration Folic Acid 1 mg 05/25/21 10:00 05/26/21 10:02 Folic Acid 1 Mg Tablet PO 1 mg DAILY@10 DHAVAL Administration Heparin Sodium (Be ef Lung) 5,000 unit 05/24/21 23:04 05/26/21 23:23 Heparin 5,000 Un it/Ml Inj 1 Ml SUBCUT 5,000 unit Q12H DHAVAL Administration Imipenem/Cilastati n Sodium 250 100 mls @ 200 mls /hr 05/25/21 09:15 05/27/21 04:28 mg/ Sodium Chlor danni IV 200 mls/hr Q6H DHAVAL Administration Protocol Lactulose 20 gm 05/24/21 23:04 05/25/21 20:18 Lactulose Oral L iq 20 Gm/30 Ml Udc PO 20 gm TID PRN Administration SEE PHARMACY COMM ENTS Midodrine 10 mg 05/26/21 09:00 05/26/21 20:50 Midodrine 5 Mg T ablet PO 10 mg TID DHAVAL Administration Morphine Sulfate 2 mg 05/24/21 16:46 05/25/21 20:28 Morphine 4 Mg/Ml Sdv 1 Ml IVP 2 mg Q4H PRN Administration SEVERE PAIN Ondansetron HCl 4 mg 05/24/21 16:46 05/25/21 17:02 Ondansetron 2 Mg /Ml Sdv 2 Ml IVP 4 mg Q6H PRN Administration NAUSEA AND VOMITI NG Pantoprazole Sodiu m 40 mg 05/25/21 18:00 05/26/21 16:[address] 40 Mg Tablet PO 40 mg BID DHAVAL Administration Peritoneal Dialysi s Solution 2,000 ml 05/25/21 20:00 05/26/21 23:23 Dianeal Low Ca W /1.5% Dex 2,000 Ml Bag INTRAPERIT 2,000 ml 5XD DHAVAL Administration Fluticasone/Salmet queta 1 puff 05/25/21 08:00 05/27/21 07:39 Fluticasone-Salm eterol 250-50 Disk us INHALATION Not Given BID.RESPIRATORY S CH Sodium Chloride 2 gm 05/26/21 09:00 05/26/21 20:50 Sodium Chloride 1 Gm Tablet PO 2 gm TID DHAVAL Administration Sucralfate 1 gm 05/25/21 17:00 05/27/21 05:05 Sucralfate 1 Gm/ 10 Ml Oral Liq Udc PO 1 gm AC&BEDTIME [facility] Administration Thiamine Mononitra te 250 mg 05/25/21 06:00 05/27/21 05:07 Thiamine 100 Mg Tablet PO 250 mg QAM DHAVAL Administration Additional Medication Information: Current Medications Hydrocodone Bitart/Acetaminophen (Hydrocodone-Acetaminophen 5-325 Mg Tablet) 1 tab PO Q8H PRN PRN Reason: MODERATE TO SEVERE PAIN Last Admin: 05/27/21 05:06 Dose: 1 tab Documented by: Alfuzosin HCl (Alfuzosin 10 Mg Er Tablet) 10 mg PO DAILY@13 [facility] Last Admin: 05/26/21 12:50 Dose: 10 mg Documented by: Artificial Tears (Artificial Tears Op Soln 15 Ml Btl) 1 drop EYE-BOTH Q4H PRN PRN Reason: DRY EYE(S) Last Admin: 05/27/21 05:45 Dose: 1 drop Documented by: Ciprofloxacin HCl (Ciprofloxacin 500 Mg Tablet) [address] [facility]; Protocol Last Admin: 05/26/21 10:03 Dose: 500 mg Documented by: Diltiazem HCl (Diltiazem Er (24hr) 120 Mg Capsule) [address] [facility] Last Admin: 05/27/21 05:47 Dose: 120 mg Documented by: Ferrous Sulfate (Ferrous Sulfate Ec 325 Mg Tablet) [address] [facility] Last Admin: 05/26/21 10:02 Dose: 325 mg Documented by: Folic Acid (Folic Acid 1 Mg Tablet) 1 mg PO DAILY@10 [facility] Last Admin: 05/26/21 10:02 Dose: 1 mg Documented by: Heparin Sodium (Beef Lung) (Heparin 5,000 Unit/Ml Inj 1 Ml) 5,[address] [facility] Last Admin: 05/26/21 23:23 Dose: 5,000 unit Documented by: Imipenem/Cilastatin Sodium 250 (mg/ Sodium Chloride) 100 mls @ 200 mls/hr IV Q6H [facility]; Protocol Last Admin: 05/27/21 04:28 Dose: 200 mls/hr Documented by: Sodium Chloride (Sodium Chloride 0.9%) 1,000 mls @ 30 mls/hr IV .Q24H ONE Stop: 05/27/21 15:23 Last Admin: 05/26/21 17:02 Dose: Not Given Documented by: Lactulose (Lactulose Oral Liq 20 Gm/30 Ml Udc) 20 gm PO TID PRN PRN Reason: SEE PHARMACY COMMENTS Last Admin: 05/25/21 20:18 Dose: 20 gm Documented by: Midodrine (Midodrine 5 Mg Tablet) [address] [facility] Last Admin: 05/26/21 20:50 Dose: 10 mg Documented by: Morphine Sulfate (Morphine 4 Mg/Ml Sdv 1 Ml) 2 mg IVP Q4H PRN PRN Reason: SEVERE PAIN Last Admin: 05/25/21 20:28 Dose: 2 mg Documented by: Ondansetron HCl (Ondansetron 2 Mg/Ml Sdv 2 Ml) 4 mg IVP Q6H PRN PRN Reason: NAUSEA AND VOMITING Last Admin: 05/25/21 17:02 Dose: 4 mg Documented by: Pantoprazole Sodium (Pantoprazole Dr 40 Mg Tablet) [address] [facility] Last Admin: 05/26/21 16:59 Dose: 40 mg Documented by: Peritoneal Dialysis Solution (Dianeal Low Ca W/1.5% Dex 2,000 Ml Bag) 2,[address] [facility] Last Admin: 05/26/21 23:23 Dose: 2,000 ml Documented by: Fluticasone/Salmeterol (Fluticasone-Salmeterol 250-50 Diskus) 1 puff INHALATION BID.RESPIRATORY [facility] Last Admin: 05/26/21 21:20 Dose: 1 puff Documented by: Sodium Chloride (Sodium Chloride 1 Gm Tablet) [address] [facility] Last Admin: 05/26/21 20:50 Dose: 2 gm Documented by: Sucralfate (Sucralfate 1 Gm/10 Ml Oral Liq Udc) 1 gm PO AC&BEDTIME [facility] Last Admin: 05/27/21 05:05 Dose: 1 gm Documented by: Thiamine Mononitrate (Thiamine 100 Mg Tablet) [address] [facility] Last Admin: 05/27/21 05:07 Dose: 250 mg Documented by: PFSH Anesthesia [facility]: Medical History Acute dyspnea Acute encephalopathy Acute hypokalemia Acute hyponatremia Ascites Ascites due to alcoholic cirrhosis Ataxia Atrial fibrillation and flutter Echocardiogram done in 2020 shows an EF of 40 to 45% with hypokinetic septum, anteroseptum and inferior wall, biatrial enlargement Atrial fibrillation with RVR BPH loc w urin obs/LUTS Charcot's arthropathy Charcot's joint of left foot Chest pain Pleuritic chest pain: Resolved; CHF (congestive heart failure), NYHA class III Chronic hyponatremia End-stage liver disease Erectile dysfunction ETOH abuse Fracture of fourth metatarsal bone of left foot Fracture of second metatarsal bone of left foot Fracture of third metatarsal bone of left foot Hepatorenal syndrome History of abdominal paracentesis Hx of esophageal varices Hyperkalemia Hyponatremia Hyponatremia with excess extracellular fluid volume Laceration of left foot Neuropathy Non-pressure chronic ulcer of other part of left foot limited to breakdown of skin Peritoneal dialysis catheter in situ Peyronie disease Pleural effusion Pleural effusion associated with hepatic disorder Pneumonia PVD (peripheral vascular disease) Surgical History H/O colonoscopy 10-12 yrs H/O esophagogastroduodenoscopy History of tonsillectomy Hx of umbilical hernia repair Hx of vasectomy Status post surgery (07/05/20) peritoneal catheter for ascites Family History Grandfather CAD (coronary artery disease) Grandmother CAD (coronary artery disease) Cancer Father Cancer Denies family history of Anesthesia complication Bleeding disorder Social History Quit status (tobacco): has quit using tobacco Year quit tobacco: 2014 less than a [id number] Second hand smoke exposure: No Smoking risk assessment/counseling performed?: Yes Alcohol intake: current Alcohol intake frequency: 3 or more drinks per day Alcohol type: beer Adopted: No Caregiver/support person: Yes Lives independently: Yes Household members: children Marital status: Current occupational status: unemployed Pets and animals: Yes History of recent travel: No Current gender identity: Male Data Anesthesia CBC & Chem 7: 05/27/21 04:35 05/27/21 04:35 Other Labs: Laboratory Results - last 48 hr 05/25/21 05/25/21 05/26/21 15:00 19:45 00:40 WBC RBC Hgb Hct MCV MCH MCHC RDW Plt Count MPV Neut % (Auto) Lymph % (Auto) [place] % (Auto) Eos % (Auto) Baso % (Auto) Neut # (Auto) Lymph # (Auto) [place] # (Auto) Eos # (Auto) Baso # (Auto) Nucleated RBC % (auto) Nucleated RBCs # Sodium 118 L* 117 L* 117 L* Potassium 5.6 H 5.7 H 5.4 H Chloride 82 L 83 L 84 L Carbon Dioxide 17 L 22 22 Anion Gap 24.6 H 17.7 16.4 BUN 27 H 27 H 24 H Creatinine 2.2 H 2.3 H 2.3 H GFR Calculation 31.0 L 29.5 L 29.5 L Glucose 106 86 104 Calculated Osmolality 252 L 248 L 248 L Calcium 8.0 L 7.5 L 7.5 L Phosphorus 5.2 H Magnesium 1.6 L Total Bilirubin AST ALT Alkaline Phosphatase Total Protein Albumin Globulin Procalcitonin Peritoneal Color Peritoneal Appearance Peritoneal WBC Peritoneal RBC Periton Mononu # Auto Mononuclear WBCs % Polynuclear WBCs % Perit Polynuc WBCs # Vancomycin Trough Blood Type Rho(D) Type Antibody Screen Crossmatch 05/26/21 05/26/21 05/26/21 04:05 04:05 08:41 WBC 15.6 H RBC 2.21 L Hgb 6.9 L Hct 20.1 L* MCV 91.0 MCH 31.2 MCHC 34.3 RDW 14.8 Plt Count 195 MPV 9.8 Neut % (Auto) 89.1 Lymph % (Auto) 2.9 [place] % (Auto) 6.9 Eos % (Auto) 0.2 Baso % (Auto) 0.1 Neut # (Auto) 13.91 H Lymph # (Auto) 0.5 L [place] # (Auto) 1.1 H Eos # (Auto) 0.0 Baso # (Auto) 0.0 Nucleated RBC % (auto) 0 Nucleated RBCs # 0.0 Sodium 117 L* Potassium 5.4 H Chloride 85 L Carbon Dioxide 22 Anion Gap 15.4 BUN 23 H Creatinine 2.5 H GFR Calculation 26.8 L Glucose 100 Calculated Osmolality 248 L Calcium 7.4 L Phosphorus Magnesium Total Bilirubin 0.8 AST 26 ALT 12 Alkaline Phosphatase 98 Total Protein 4.8 L Albumin 1.9 L Globulin 2.9 Procalcitonin Peritoneal Color Peritoneal Appearance Peritoneal WBC Peritoneal RBC Periton Mononu # Auto Mononuclear WBCs % Polynuclear WBCs % Perit Polynuc WBCs # Vancomycin Trough Blood Type O Positive Rho(D) Type Positive Antibody Screen Negative Crossmatch See Detail 05/26/21 05/26/21 05/26/21 08:41 09:45 11:57 WBC RBC Hgb Hct MCV MCH MCHC RDW Plt Count MPV Neut % (Auto) Lymph % (Auto) [place] % (Auto) Eos % (Auto) Baso % (Auto) Neut # (Auto) Lymph # (Auto) [place] # (Auto) Eos # (Auto) Baso # (Auto) Nucleated RBC % (auto) Nucleated RBCs # Sodium Potassium Chloride Carbon Dioxide Anion Gap BUN Creatinine GFR Calculation Glucose Calculated Osmolality Calcium Phosphorus Magnesium Total Bilirubin AST ALT Alkaline Phosphatase Total Protein Albumin Globulin Procalcitonin 2.49 H Peritoneal Color Slight pink Peritoneal Appearance Cloudy Peritoneal WBC 1046 Peritoneal RBC 2 Periton Mononu # Auto 0.190 Mononuclear WBCs % 18.200 Polynuclear WBCs % 81.800 Perit Polynuc WBCs # 0.856 Vancomycin Trough 8.0 L Blood Type Rho(D) Type Antibody Screen Crossmatch 05/26/21 05/26/21 05/27/21 14:58 20:15 00:17 WBC 10.9 H RBC 2.43 L Hgb 7.5 L Hct 22.2 L MCV 91.4 MCH 30.9 MCHC 33.8 RDW 14.6 Plt Count 179 MPV 9.3 Neut % (Auto) 78.6 Lymph % (Auto) 5.8 [place] % (Auto) 12.0 Eos % (Auto) 2.2 Baso % (Auto) 0.3 Neut # (Auto) 8.60 H Lymph # (Auto) 0.6 L [place] # (Auto) 1.3 H Eos # (Auto) 0.2 Baso # (Auto) 0.0 Nucleated RBC % (auto) 0 Nucleated RBCs # 0.0 Sodium 120 L 121 L Potassium 4.9 4.6 Chloride 86 L 87 L Carbon Dioxide 24 23 Anion Gap 14.9 15.6 BUN 28 H 27 H Creatinine 2.6 H 2.7 H GFR Calculation 25.6 L 24.5 L Glucose 103 87 Calculated Osmolality 256 L 256 L Calcium 7.1 L 7.2 L Phosphorus Magnesium Total Bilirubin AST ALT Alkaline Phosphatase Total Protein Albumin Globulin Procalcitonin Peritoneal Color Peritoneal Appearance Peritoneal WBC Peritoneal RBC Periton Mononu # Auto Mononuclear WBCs % Polynuclear WBCs % Perit Polynuc WBCs # Vancomycin Trough Blood Type Rho(D) Type Antibody Screen Crossmatch 05/27/21 05/27/21 04:35 04:35 WBC 10.6 H RBC 2.88 L Hgb 8.8 L Hct 25.8 L MCV 89.6 MCH 30.6 MCHC 34.1 RDW 14.4 Plt Count 198 MPV 9.3 Neut % (Auto) 77.1 Lymph % (Auto) 6.4 [place] % (Auto) 12.7 Eos % (Auto) 2.3 Baso % (Auto) 0.3 Neut # (Auto) 8.20 H Lymph # (Auto) 0.7 L [place] # (Auto) 1.4 H Eos # (Auto) 0.2 Baso # (Auto) 0.0 Nucleated RBC % (auto) 0 Nucleated RBCs # 0.0 Sodium 121 L Potassium 4.2 Chloride 87 L Carbon Dioxide 22 Anion Gap 16.2 BUN 27 H Creatinine 2.7 H GFR Calculation 24.5 L Glucose 80 Calculated Osmolality 256 L Calcium 7.1 L Phosphorus Magnesium Total Bilirubin 1.2 AST 25 ALT 13 Alkaline Phosphatase 91 Total Protein 4.5 L Albumin 2.0 L Globulin 2.5 Procalcitonin 2.47 H Peritoneal Color Peritoneal Appearance Peritoneal WBC Peritoneal RBC Periton Mononu # Auto Mononuclear WBCs % Polynuclear WBCs % Perit Polynuc WBCs # Vancomycin Trough Blood Type Rho(D) Type Antibody Screen Crossmatch Micro: Microbiology 05/26/21 10:12 Gram Stain - Final Peritoneal Fluid 05/26/21 09:45 MRSA Culture - Final Nose 05/25/21 00:45 Gram Stain - Final Abdomen Abscess Culture - Preliminary 05/25/21 00:20 Gram Stain - Final Ascites Fluid Body Fluid Culture - Preliminary Gram Negative Rods 05/25/21 22:00 Gram Stain - Final Peritoneal Fluid Cardiac Studies: No Data to Display
[2021-05-27] MEDS: sodium chloride 0.9% 1,000 ML 30 ML IV (08:02)
[2021-05-27] MEDS: EPINEPHrine 1 mg/mL INJ XX (08:27)
[2021-05-27] MEDS: ondansetron 2 mg/ML SDV 2 mL 4 MG IVP (09:11)
[2021-05-27] MEDS: ciprofloxacin 500 mg Tablet PO (09:14)
[2021-05-27] MEDS: ferrous sulfate EC 325 mg Tablet PO (09:14)
[2021-05-27] MEDS: midodrine 5 mg TABLET 10 MG PO ×3 (09:14→20:14)
[2021-05-27] MEDS: pantoprazole DR 40 mg Tablet PO ×2 (09:14→17:27)
[2021-05-27] MEDS: folic acid 1 mg Tablet PO (09:16)
[2021-05-27] MEDS: sodium chloride 1 gm Tablet 2 GM PO ×3 (09:21→20:14)
--- NOTE | 2021-05-27 09:55 | PM.PN ---
Subjective Subjective: Interval history: No acute events overnight. Patient states he is feeling a lot better since blood transfusion. Got 2 units of PRBC yesterday. Overnight has remained hemodynamically stable. Today morning seen port EGD. Found to have bleeding ulcer near the pylorus. Vitals/I&O/Wt Last Vital Signs Temp 97.6 F 05/27/21 08:25 Pulse 91 05/27/21 08:25 Resp 16 05/27/21 08:25 BP 119/68 05/27/21 08:25 Pulse Ox 98 05/27/21 08:25 05/26/21 05/27/21 05/27/21 22:59 06:59 14:59 Intake Total 616.75 / 946.75 550 / 1496.75 100 / 100 Output Total 350 / 525 Balance 616.75 / 771.75 200 / 971.75 100 / 100 Weight last 48 hrs Weight 135.261 kg Weight 134.127 kg Physical Exam Narrative: EXAM NARRATIVE: General: No acute distress, AO x3, pale, dehydrated, chronically sick appearing HEENT: PERRLA, pupils bilaterally equal and reactive Chest: Normal vesicular breath sounds, no added sounds, equal good air entry bilaterally CVS: S1-S2 irregularly irregular, no murmurs, no tachycardia, no gallops, no rubs Abdomen: Soft, nontender, mildly distended, no organomegaly, bowel sounds present, redness present in the lower quadrant up to the navel area, peritoneal catheter present without any sign of granulation Neuro: No focal deficits, no facial deformity, AO x3, power 5/5 in all limbs Data : 05/27/21 04:35 05/27/21 04:35 Micro: Microbiology 05/25/21 00:45 Gram Stain - Final Abdomen Abscess Culture - Preliminary 05/26/21 10:12 Gram Stain - Final Peritoneal Fluid Body Fluid Culture - Preliminary 05/26/21 09:45 MRSA Culture - Final Nose 05/25/21 00:20 Gram Stain - Final Ascites Fluid Body Fluid Culture - Preliminary Gram Negative Rods 05/25/21 22:00 Gram Stain - Final Peritoneal Fluid A&P Assessment and plan (1) Acute hyponatremia: Status: Acute (2) Upper gastrointestinal hemorrhage due to gastritis: Status: Acute (3) Anemia: Status: Acute (4) Hyperkalemia: Status: Acute (5) Hepatorenal syndrome: Status: Acute (6) Peritonitis: Status: Acute (7) Atrial fibrillation and flutter: Status: Acute (8) CHF (congestive heart failure), NYHA class III: Status: Acute Qualifiers: Congestive heart failure chronicity: unspecified Congestive heart failure type: systolic Qualified Code(s): I50.20 - Unspecified systolic (congestive) heart failure (9) Peritoneal dialysis catheter in situ: Status: Acute (10) End-stage liver disease: Status: Acute (11) Alcoholic cirrhosis of liver with ascites: Status: Acute (12) ETOH abuse: Status: Acute Additional A&P Information Acute hyponatremia: Improving. Baseline sodium around 130-1 35. Symptomatic. Fluid restriction to 1200 cc. Increase Salt tablets 2 g every 8 hourly. Recheck BMP every 6 hour. Hyperkalemia: Resolved. Most likely a combination of home dose of spironolactone, oral potassium supplementation. Repeat Kayexalate. Telemetry. [facility] nephrology recs. PD peritonitis: End-stage liver disease/alcoholic liver cirrhosis: Hepatorenal syndrome: Peritoneal dialysis catheter in situ: PD fluid analysis consistent with PD peritonitis. On culture review has a history of PD peritonitis with Enterobacter and Klebsiella earlier this year. Fluid consistent with gram-negative rods. Continue with imipenem. Most likely can stop peritoneal vancomycin. Will add second gram-negative coverage with levofloxacin given history of ESBL Klebsiella. Levofloxacin to 750 mg stat followed by 5 mg every 48 hours. This is his 3rd PD peritonitis this year and most likely will need for PD catheter to be removed. Possible transition to HD. Blood cultures so far negative. Increase midodrine to 10 mg 3 times daily. Continue with home dose of lactulose 3 times daily as needed. We will try to get at least 2-3 soft bowel movements every shift. History of alcohol abuse: [facility] protocol. Oral thiamine, folic acid. Atrial fibrillation: Rate controlled. Continue home dose of Cardizem. Not on anticoagulation for chronic anemia. Congestive heart failure: Echocardiogram done in 2019 shows a multi wall hypokinesia with EF of 40 to 45% with biatrial enlargement. Currently well compensated. We will continue to monitor fluid status. Anemia: Target hemoglobin around 8. Post renal blood transfusion. Continue home dose of oral iron supplementation. Protonix 40 mg twice daily, Carafate. Upper GI bleed: As seen on EGD. Monitor hemoglobin daily. CODE STATUS: Full code. Dialysis low potassium diet. Protonix for PUD prophylaxis. Attestations Medical Necessity Statement*: Requires further hospitalization for management of hyponatremia, PD peritonitis, blood loss anemia secondary to GI bleed Time Spent in Patient Care: Greater than 35 minutes (>than 50% of time spent in counselling and/or direct pt care on unit). Coding Level of Care Code Acute [facility] Fwd Diagnoses Acute hyponatremia E87.1 Upper gastrointestinal hemorrhage due to gastritis K29.71 Anemia D64.9 Hyperkalemia E87.5 Hepatorenal syndrome K76.7 Peritonitis K65.9 Atrial fibrillation and flutter I48.91; I48.92 CHF (congestive heart failure), NYHA class III I50.20 Congestive heart failure chronicity: unspecified Congestive heart failure type: systolic Peritoneal dialysis catheter in situ Z99.2 End-stage liver disease K72.90 Alcoholic cirrhosis of liver with ascites K70.31 ETOH abuse F10.10
--- NOTE | 2021-05-27 11:26 | PC.NURSE ---
pt had egd at 0800 this am.returned to room at 0850.report received.pt is awake but groggy.vss.c/o nausea.zofran given as ordered w/relief of nausea achieved.
[2021-05-27 11:43] LABS: Mononuclear #, Pertinoneal Fl 0.461 10^3/uL; Polynuclear # Cells, Perit 2.025 10^3/uL
[2021-05-27 11:44] LABS: Appearance, Peritoneal Fluid Hazy (Clear); Color, Peritoneal Fluid Slight Pink (Pale Yellow); Pathology Referral Yes; RBC Pertioneal Fluid 10 10^3/uL; WBC Peritoneal Fluid 2486 /uL
[2021-05-27] MEDS: alfuzosin 10 mg ER Tablet PO (14:13)
[2021-05-27 14:48] LABS: Blood Urea Nitrogen 28 mg/dL (6-20); Calcium 7.3 mg/dL (8.5-10.5); Carbon Dioxide 24 mmol/L (22-29); Chloride 88 mmol/L (98-107); Glomerular Filtration Rate 26.8 mL/min (90-130); Glucose 73 mg/dL (65-115); Osmolality Calculated 254 mOsm/kg (285-295); Sodium 120 mmol/L (136-145)
[2021-05-27 14:55] LABS: Anion Gap 12.8 (5-19); Potassium 4.8 mmol/L (3.5-5.1)
[2021-05-27] MEDS: levoFLOXacin 750 mg Tablet PO (15:20)
[2021-05-27 20:53] LABS: Anion Gap 14.6 (5-19); Blood Urea Nitrogen 24 mg/dL (6-20); Calcium 7.2 mg/dL (8.5-10.5); Carbon Dioxide 23 mmol/L (22-29); Chloride 88 mmol/L (98-107); Glomerular Filtration Rate 26.8 mL/min (90-130); Glucose 87 mg/dL (65-115); Osmolality Calculated 255 mOsm/kg (285-295); Potassium 4.6 mmol/L (3.5-5.1); Sodium 121 mmol/L (136-145)
[2021-05-28] VITALS (9 sets, daily range): BP systolic 90–112; BP diastolic 53–73; PULSE 77–94; RESP 16–22; TEMP 36.5–36.8; O2SAT 90–97
[2021-05-28 03:01] LABS: Basophils % 0.4 %; Eosinophils # 0.1 10^3/uL (0.0-0.8); Eosinophils % 1.5 %; Hematocrit 24.5 % (42.0-52.0); Hemoglobin 8.5 g/dL (11.7-16.6); Lymphocytes # 0.6 10^3/uL (0.8-4.8); Lymphocytes % 6.1 %; Mean Corpuscular HGB Conc 34.7 g/dL (30.0-36.0); Mean Corpuscular Hemoglobin 31.1 pg (28.0-34.0); Mean Corpuscular Volume 89.7 fl (80-94); Mean Platelet Volume 8.8 fL (7.4-10.4); Monocytes # 1.2 10^3/uL (0.2-0.9); Monocytes % 12.7 %; Neutrophils # 7.38 10^3/uL (1.8-7.7); Neutrophils % 78.4 %; Nucleated Red Blood Cells % 0 %; Platelet Count 159 10^3/cmm (130-400); Red Blood Count 2.73 10^6/uL (4.1-5.3); Red Cell Distribution Width 14.7 % (12.1-15.1); White Blood Count 9.4 10^3/uL (4.0-10.0)
[2021-05-28] MEDS: HYDROcodone-acetaminophen 5-325 mg Tablet 1 TAB PO ×2 (03:10→22:45)
[2021-05-28] MEDS: ondansetron 2 mg/ML SDV 2 mL 4 MG IVP (03:11)
[2021-05-28 03:20] LABS: Vancomycin Random 10.4 ug/mL (20.0-40.0)
[2021-05-28 03:21] LABS: Alanine Aminotransferase 11 U/L (0-41); Albumin Level 1.9 g/dL (3.5-5.2); Alkaline Phosphatase 85 IU/L (40-130); Anion Gap 15.7 (5-19); Aspartate Amino Transferase 21 U/L (0-40); Blood Urea Nitrogen 29 mg/dL (6-20); Calcium 7.4 mg/dL (8.5-10.5); Carbon Dioxide 21 mmol/L (22-29); Chloride 90 mmol/L (98-107); Globulin 2.6 g/dL (1.3-4.6); Glucose 72 mg/dL (65-115); Magnesium 1.6 mg/dL (1.7-2.3); Osmolality Calculated 258 mOsm/kg (285-295); Phosphorus 4.6 mg/dL (2.5-4.5); Potassium 4.7 mmol/L (3.5-5.1); Sodium 122 mmol/L (136-145); Total Protein 4.5 g/dL (6.6-8.7)
[2021-05-28] MEDS: dilTIAZem ER (24HR) 120 mg Capsule PO (06:17)
[2021-05-28] MEDS: sucralfate 1 gm/10 mL Oral Liq UDC PO ×4 (06:18→21:01)
[2021-05-28] MEDS: thiamine 100 mg Tablet 250 MG PO (06:18)
--- NOTE | 2021-05-28 07:28 | PM.PN ---
Subjective Subjective: Interval history: has some swelling. no n/v/f/c/peralta/d. has edema Medications: Reviewed: Yes Medication Review Details: Current Medications Hydrocodone Bitart/Acetaminophen (Hydrocodone-Acetaminophen 5-325 Mg Tablet) 1 tab PO Q8H PRN PRN Reason: MODERATE TO SEVERE PAIN Last Admin: 05/28/21 03:10 Dose: 1 tab Documented by: Alfuzosin HCl (Alfuzosin 10 Mg Er Tablet) 10 mg PO DAILY@13 [facility] Last Admin: 05/27/21 14:13 Dose: 10 mg Documented by: Artificial Tears (Artificial Tears Op Soln 15 Ml Btl) 1 drop EYE-BOTH Q4H PRN PRN Reason: DRY EYE(S) Last Admin: 05/27/21 05:45 Dose: 1 drop Documented by: Diltiazem HCl (Diltiazem Er (24hr) 120 Mg Capsule) 120 mg PO QAM [facility] Last Admin: 05/28/21 06:17 Dose: 120 mg Documented by: Ferrous Sulfate (Ferrous Sulfate Ec 325 Mg Tablet) 325 mg PO DAILY [facility] Last Admin: 05/27/21 09:14 Dose: 325 mg Documented by: Folic Acid (Folic Acid 1 Mg Tablet) 1 mg PO DAILY@10 [facility] Last Admin: 05/27/21 09:16 Dose: 1 mg Documented by: Imipenem/Cilastatin Sodium 250 (mg/ Sodium Chloride) 100 mls @ 200 mls/hr IV Q6H [facility]; Protocol Last Infusion: 05/28/21 03:30 Dose: 0 mls/hr Documented by: Lactulose (Lactulose Oral Liq 20 Gm/30 Ml Udc) 20 gm PO TID PRN PRN Reason: SEE PHARMACY COMMENTS Last Admin: 05/25/21 20:18 Dose: 20 gm Documented by: Levofloxacin (Levofloxacin 500 Mg Tablet) 500 mg PO Q48H [facility]; Protocol Stop: 06/12/21 14:29 Midodrine (Midodrine 5 Mg Tablet) 10 mg PO TID [facility] Last Admin: 05/27/21 20:14 Dose: 10 mg Documented by: Morphine Sulfate (Morphine 4 Mg/Ml Sdv 1 Ml) 2 mg IVP Q4H PRN PRN Reason: SEVERE PAIN Last Admin: 05/25/21 20:28 Dose: 2 mg Documented by: Ondansetron HCl (Ondansetron 2 Mg/Ml Sdv 2 Ml) 4 mg IVP Q6H PRN PRN Reason: NAUSEA AND VOMITING Last Admin: 05/28/21 03:11 Dose: 4 mg Documented by: Pantoprazole Sodium (Pantoprazole Dr 40 Mg Tablet) 40 mg PO BID [facility] Last Admin: 05/27/21 17:27 Dose: 40 mg Documented by: Peritoneal Dialysis Solution (Dianeal Low Ca W/1.5% Dex 2,000 Ml Bag) 2,000 ml INTRAPERIT 5XD [facility] Last Admin: 05/28/21 06:16 Dose: Not Given Documented by: Fluticasone/Salmeterol (Fluticasone-Salmeterol 250-50 Diskus) 1 puff INHALATION BID.RESPIRATORY [facility] Last Admin: 05/27/21 20:27 Dose: 1 puff Documented by: Sodium Chloride (Sodium Chloride 1 Gm Tablet) 2 gm PO TID [facility] Last Admin: 05/27/21 20:14 Dose: 2 gm Documented by: Sucralfate (Sucralfate 1 Gm/10 Ml Oral Liq Udc) 1 gm PO AC&BEDTIME [facility] Last Admin: 05/28/21 06:18 Dose: 1 gm Documented by: Thiamine Mononitrate (Thiamine 100 Mg Tablet) 250 mg PO QAM [facility] Last Admin: 05/28/21 06:18 Dose: 250 mg Documented by: Vitals/I&O/Wt Last Vital Signs Temp 98 F 05/28/21 03:56 Pulse 83 05/28/21 05:00 Resp 22 H 05/28/21 03:56 BP 90/53 05/28/21 03:56 Pulse Ox 97 05/28/21 03:56 05/27/21 05/28/21 05/28/21 22:59 06:59 14:59 Intake Total 690 / 1250 463.333 / 1713.333 Output Total 625 / 625 200 / 825 Balance 65 / 625 263.333 / 888.333 Weight last 48 hrs Weight 179.895 kg Weight 135.261 kg Physical Exam Narrative: EXAM NARRATIVE: swollen in bed, NARD vs noted- HR normal, low bp heent- nc/at, eomi neck supple lung -dull bases heart- irreg irreg, +MÓNICA abd soft, nt, +BS, + peritoneal dialysis catheter ext 1+ b/l leg edema neuro- a,a,o x 3 pulses weak Data : 05/28/21 02:45 05/28/21 02:45 Micro: Microbiology 05/25/21 00:20 Gram Stain - Final Ascites Fluid Body Fluid Culture - Preliminary Stenotrophomonas maltophilia 05/25/21 22:00 Gram Stain - Final Peritoneal Fluid Body Fluid Culture - Preliminary Gram Negative Rods 05/25/21 00:45 Gram Stain - Final Abdomen Abscess Culture - Preliminary 05/26/21 10:12 Gram Stain - Final Peritoneal Fluid Body Fluid Culture - Preliminary A&P Additional A&P Information 1. Acute kidney injury Likely to be prerenal in nature, urine sodium 31, urine creatinine 30, although this is nondiagnostic given his recent exposure to diuretics. Could be hepatorenal physiology also present. - pt is urinating and cr stable- off of PD for a day. continue off of PD Daily renal panel, strict I's and O's Avoid usual nephrotoxic agents. 2. gram negative nicolette Peritonitis Of note back in March he had a number of bacteria grown out from the fluid that was draining from his peritoneal catheter. This included Enterococcus faecalis, a pansensitive bacteria, Klebsiella, sensitive to imipenem and Cipro and he also had E. coli in his urine. This was also sensitive species. Culture of peritoneal fluid sent and stenotrhomonas maltophilia and gram neg rods. can use levaquin or vanco -Blood cultures neg. He is currently on Primaxin and Cipro, -s/p IP vancomycin 05-26-21- vanco level =10- redose if needed PD cell count up again to 2486- i recommend removing Peritoneal catheter as wbc rising- however, he will likely need a new catheter w/in 2- 4 weeks as he has been draining approx a liter a day 3. anemia- ferritin 1127- not iron def -start ALYSA 4. hypoantremia - hold PD- salt tabs and monitor -free water restrict 1500 ml/ day 5. 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
[2021-05-28] MEDS: midodrine 5 mg TABLET 10 MG PO ×3 (08:00→21:01)
[2021-05-28] MEDS: sodium chloride 1 gm Tablet 2 GM PO ×3 (08:32→21:01)
[2021-05-28] MEDS: folic acid 1 mg Tablet PO (08:32)
[2021-05-28] MEDS: pantoprazole DR 40 mg Tablet PO ×2 (08:32→19:05)
[2021-05-28] MEDS: ferrous sulfate EC 325 mg Tablet PO (08:42)
[2021-05-28 09:23] LABS: Blood Urea Nitrogen 23 mg/dL (6-20); Calcium 7.1 mg/dL (8.5-10.5); Carbon Dioxide 19 mmol/L (22-29); Chloride 89 mmol/L (98-107); Glucose 106 mg/dL (65-115); Osmolality Calculated 254 mOsm/kg (285-295); Sodium 120 mmol/L (136-145)
[2021-05-28 09:28] LABS: Anion Gap 16.5 (5-19); Potassium 4.5 mmol/L (3.5-5.1)
--- NOTE | 2021-05-28 11:44 | PC.OT ---
OT TREATMENT ATTEMPTED; PATIENT IS CURRENTLY EATING LUNCH AND DOES NOT WISH TO PARTICIPATE IN TREATMENT AT THIS TIME.
[2021-05-28] MEDS: alfuzosin 10 mg ER Tablet PO (13:42)
[2021-05-28] MEDS: lactulose oral liq 20 gm/30 mL UDC PO (14:30)
[2021-05-28 15:42] LABS: Blood Urea Nitrogen 23 mg/dL (6-20); Calcium 7.4 mg/dL (8.5-10.5); Carbon Dioxide 21 mmol/L (22-29); Chloride 89 mmol/L (98-107); Glucose 99 mg/dL (65-115); Osmolality Calculated 254 mOsm/kg (285-295); Sodium 120 mmol/L (136-145)
[2021-05-28 15:46] LABS: Anion Gap 14.6 (5-19); Potassium 4.6 mmol/L (3.5-5.1)
[2021-05-28] MEDS: nystatin cream 30 gm 1 APPLIC TOPICAL (20:06)
--- NOTE | 2021-05-28 21:49 | P.PN_ITS ---
Subjective Subjective: Interval history: He is overall doing better. Less abdominal pain. Still some pain and cramping persisting. No nausea or vomiting. Vitals/I&O/Wt Last Vital Signs Temp 98.3 F 05/28/21 19:11 Pulse 84 05/28/21 20:25 Resp 16 05/28/21 20:25 BP 98/61 05/28/21 19:11 Pulse Ox 94 05/28/21 20:25 05/28/21 05/28/21 05/28/21 06:59 14:59 22:59 Intake Total 463.333 / 1713.333 610 / 610 460 / 1070 Output Total 200 / 825 350 / 350 150 / 500 Balance 263.333 / 888.333 260 / 260 310 / 570 Weight last 48 hrs Weight 179.895 kg Weight 135.261 kg Physical Exam Const: COMMON NORMALS: no acute distress, patient oriented x3 and alert GENERAL APPEARANCE: cooperative NUTRITIONAL APPEARANCE: obese ORIENTATION/CONSCIOUSNESS: Yes awake HENMT: COMMON NORMALS: oropharynx normal Neck/C-Spine: COMMON NORMALS: no JVD Resp: COMMON NORMALS: normal respiratory effort and clear to auscultation bilaterally AUSCULTATION: clear to auscultation bilaterally Cardio: COMMON NORMALS: no JVD, regular rhythm, S1 normal heart sound present, S2 normal heart sound present and No murmurs present (Cardio) RHYTHM: regular rhythm HEART SOUNDS: S1 normal heart sound present and S2 normal heart sound present GI: COMMON NORMALS: Normal to inspection, nondistended, normoactive bowel sounds present and Soft to palpation PALPATION: Yes Soft to palpation and Yes Tenderness to palpation present (GI) (mild) Extremity: COMMON NORMALS: no joint enlargement and no pedal edema Neuro: COMMON NORMALS: patient oriented x3 and moves all extremities SENSORIUM/ORIENTATION: Yes alert Skin: COMMON NORMALS: no rashes or lesions noted GENERAL SKIN EXAM: no rashes or lesions noted Data : 05/28/21 02:45 05/28/21 14:30 Micro: Microbiology 05/25/21 00:20 Gram Stain - Final Ascites Fluid Body Fluid Culture - Final Stenotrophomonas maltophilia 05/25/21 22:00 Gram Stain - Final Peritoneal Fluid Body Fluid Culture - Preliminary Gram Negative Rods A&P Assessment and plan (1) Peritonitis: Symptomatically some improvement. Leukocytosis persistent. Recurrent infection. Appreciate nephrology recommendation. Discussed with him regarding removal of catheter. He states would be willing to remove it on a temporary basis, but not on permanent basis given that he states is needing to be able to drain ascitic fluid to ensure quality of life. He does state he was not taking good care of the current catheter, after losing the cath, as well as misplacing the bag of spare caps, he was for a while doing very well on disinfecting the port, but subsequently would drain the ascitic fluid, and perhaps wipe the access with a napkin. States that he is intent on keeping pristine care of the catheter from here on realizing the importance. Understands peritonitis is a very serious and potentially life-threatening illness. Discussed with surgery. N.p.o. after midnight for catheter removal. Stenotrophomonas, previously Klebsiella, Enterococcus Status: Acute (2) Acute hyponatremia: Continue salt tablets, water restriction. Status: Acute (3) Upper gastrointestinal hemorrhage due to gastritis: Status post EGD with findings of esophagitis, gastritis, Duodenal ulcer noted with active oozing. Injected. Status: Acute (4) Anemia: Status: Acute (5) Hyperkalemia: Resolved. Status: Acute (6) Hepatorenal syndrome: Status: Acute (7) Atrial fibrillation and flutter: Status: Acute (8) CHF (congestive heart failure), NYHA class III: EF of 40 to 45% Status: Acute Qualifiers: Congestive heart failure type: systolic Congestive heart failure chronicity: unspecified Qualified Code(s): I50.20 - Unspecified systolic (congestive) heart failure (9) Peritoneal dialysis catheter in situ: Status: Acute (10) End-stage liver disease: Status: Acute (11) Alcoholic cirrhosis of liver with ascites: Status: Acute (12) ETOH abuse: Status: Acute Additional A&P Information Attestations Medical Necessity Statement*: Continue admission for assessment of management of gram-negative nicolette peritonitis in setting of PD catheter, recurrent ascites with liver cirrhosis. 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
[2021-05-29] VITALS (73 sets, daily range): BP systolic 92–142; BP diastolic 57–92; PULSE 75–124; RESP 12–98; TEMP 36.2–37.4; O2SAT 78–100
[2021-05-29] MEDS: dilTIAZem ER (24HR) 120 mg Capsule PO (05:08)
[2021-05-29] MEDS: sucralfate 1 gm/10 mL Oral Liq UDC PO ×3 (05:08→19:32)
[2021-05-29] MEDS: thiamine 100 mg Tablet 250 MG PO (05:08)
[2021-05-29 05:24] LABS: Basophils % 0.5 %; Eosinophils # 0.2 10^3/uL (0.0-0.8); Eosinophils % 2.3 %; Hematocrit 26.3 % (42.0-52.0); Hemoglobin 8.9 g/dL (11.7-16.6); Lymphocytes # 0.6 10^3/uL (0.8-4.8); Lymphocytes % 6.5 %; Mean Corpuscular HGB Conc 33.8 g/dL (30.0-36.0); Mean Corpuscular Hemoglobin 31.6 pg (28.0-34.0); Mean Corpuscular Volume 93.3 fl (80-94); Mean Platelet Volume 8.8 fL (7.4-10.4); Monocytes # 1.3 10^3/uL (0.2-0.9); Monocytes % 14.7 %; Neutrophils # 6.65 10^3/uL (1.8-7.7); Neutrophils % 74.9 %; Nucleated Red Blood Cells % 0 %; Platelet Count 144 10^3/cmm (130-400); Red Blood Count 2.82 10^6/uL (4.1-5.3); Red Cell Distribution Width 14.7 % (12.1-15.1); White Blood Count 8.9 10^3/uL (4.0-10.0)
[2021-05-29 05:40] LABS: Alanine Aminotransferase 11 U/L (0-41); Albumin Level 1.9 g/dL (3.5-5.2); Alkaline Phosphatase 85 IU/L (40-130); Anion Gap 13.5 (5-19); Aspartate Amino Transferase 30 U/L (0-40); Blood Urea Nitrogen 28 mg/dL (6-20); Calcium 7.4 mg/dL (8.5-10.5); Carbon Dioxide 23 mmol/L (22-29); Chloride 92 mmol/L (98-107); Globulin 2.5 g/dL (1.3-4.6); Glomerular Filtration Rate 29.5 mL/min (90-130); Glucose 80 mg/dL (65-115); Magnesium 1.8 mg/dL (1.7-2.3); Osmolality Calculated 262 mOsm/kg (285-295); Phosphorus 3.9 mg/dL (2.5-4.5); Potassium 4.5 mmol/L (3.5-5.1); Sodium 124 mmol/L (136-145); Total Bilirubin 1.1 mg/dL (0.15-1.2); Total Protein 4.4 g/dL (6.6-8.7)
--- NOTE | 2021-05-29 06:14 | PC.NURSE ---
Patient has had a good night, patient is currently NPO at this time for surgical procedure scheduled for this afternoon.
[2021-05-29 06:53] LABS: Glucose Point of Care 143 mg/dL (70-110)
--- NOTE | 2021-05-29 06:53 | PM.PN ---
Subjective Subjective: Interval history: Patient overall feels well Medications: Reviewed: Yes Vitals/I&O/Wt Last Vital Signs Temp 98.3 F 05/28/21 19:11 Pulse 83 05/29/21 06:00 Resp 17 05/29/21 04:59 BP 98/61 05/28/21 19:11 Pulse Ox 94 05/28/21 20:25 05/28/21 05/28/21 05/29/21 14:59 22:59 06:59 Intake Total 610 / 610 560 / 1170 100 / 1270 Output Total 350 / 350 325 / 675 250 / 925 Balance 260 / 260 235 / 495 -150 / 345 Weight last 48 hrs Weight 299 lb Weight 396 lb 9.6 oz Physical Exam Narrative: EXAM NARRATIVE: Patient is conscious alert oriented X3 No apparent distress BMI 40 Head and neck examination PERRLA no masses no cervical lymphadenopathy no jaundice Abdomen nontender.less distended soft no organomegaly clinically appreciated otherwise no guarding or rigidity/no signs of peritonitis Present of right-sided peritoneal dialysis catheter in place with clear fluid Morbidly obese Data : 05/29/21 05:05 05/29/21 05:05 Micro: Microbiology 05/25/21 00:20 Gram Stain - Final Ascites Fluid Body Fluid Culture - Final Stenotrophomonas maltophilia 05/25/21 22:00 Gram Stain - Final Peritoneal Fluid Body Fluid Culture - Preliminary Gram Negative Rods A&P Assessment and plan (1) Peritonitis: Based on the fact that the patient does have chronic peritonitis and infection likely related to the peritoneal dialysis catheter. Nephrology service had recommended removal of the catheter for better treatment of the source of underlying infection. I was approached by the hospitalist service questing removal of the catheter. Plan to perform explantation of peritoneal dialysis catheter today in the OR Indications, risks, benefits and alternatives all discussed with the patient and he did agree to proceed accordingly. Assurance and education All questions have been answered and all concerns have been addressed to patient's satisfaction. Status: Acute Attestations Medical Necessity Statement*: Per admitting service Time Spent in Patient Care: (>than 50% of time spent in counselling and/or direct pt care on unit). 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
--- NOTE | 2021-05-29 07:01 | PM.PN ---
Subjective Subjective: Interval history: swollen, abd pain, no sob. rest of ROS unchanged. Medications: Reviewed: Yes Medication Review Details: Current Medications Hydrocodone Bitart/Acetaminophen (Hydrocodone-Acetaminophen 5-325 Mg Tablet) 1 tab PO Q8H PRN PRN Reason: MODERATE TO SEVERE PAIN Last Admin: 05/28/21 22:45 Dose: 1 tab Documented by: Alfuzosin HCl (Alfuzosin 10 Mg Er Tablet) 10 mg PO DAILY@13 [facility] Last Admin: 05/28/21 13:42 Dose: 10 mg Documented by: Artificial Tears (Artificial Tears Op Soln 15 Ml Btl) 1 drop EYE-BOTH Q4H PRN PRN Reason: DRY EYE(S) Last Admin: 05/27/21 05:45 Dose: 1 drop Documented by: Diltiazem HCl (Diltiazem Er (24hr) 120 Mg Capsule) 120 mg PO QAM [facility] Last Admin: 05/29/21 05:08 Dose: 120 mg Documented by: Ferrous Sulfate (Ferrous Sulfate Ec 325 Mg Tablet) 325 mg PO DAILY [facility] Last Admin: 05/28/21 08:42 Dose: 325 mg Documented by: Folic Acid (Folic Acid 1 Mg Tablet) 1 mg PO DAILY@10 [facility] Last Admin: 05/28/21 08:32 Dose: 1 mg Documented by: Imipenem/Cilastatin Sodium 250 (mg/ Sodium Chloride) 100 mls @ 200 mls/hr IV Q6H [facility]; Protocol Last Infusion: 05/29/21 04:49 Dose: Infused Documented by: Lactulose (Lactulose Oral Liq 20 Gm/30 Ml Udc) 20 gm PO TID PRN PRN Reason: SEE PHARMACY COMMENTS Last Admin: 05/28/21 14:30 Dose: 20 gm Documented by: Levofloxacin (Levofloxacin 500 Mg Tablet) 500 mg PO Q48H [facility]; Protocol Stop: 06/12/21 14:29 Midodrine (Midodrine 5 Mg Tablet) 10 mg PO TID [facility] Last Admin: 05/28/21 21:01 Dose: 10 mg Documented by: Nystatin (Nystatin Cream 30 Gm) 1 applic TOPICAL BID [facility] Last Admin: 05/28/21 20:06 Dose: 1 applic Documented by: Ondansetron HCl (Ondansetron 2 Mg/Ml Sdv 2 Ml) 4 mg IVP Q6H PRN PRN Reason: NAUSEA AND VOMITING Last Admin: 05/28/21 03:11 Dose: 4 mg Documented by: Pantoprazole Sodium (Pantoprazole Dr 40 Mg Tablet) 40 mg PO BID [facility] Last Admin: 05/28/21 19:05 Dose: 40 mg Documented by: Fluticasone/Salmeterol (Fluticasone-Salmeterol 250-50 Diskus) 1 puff INHALATION BID.RESPIRATORY [facility] Last Admin: 05/28/21 20:25 Dose: 1 puff Documented by: Sodium Chloride (Sodium Chloride 1 Gm Tablet) 2 gm PO TID [facility] Last Admin: 05/28/21 21:01 Dose: 2 gm Documented by: Sucralfate (Sucralfate 1 Gm/10 Ml Oral Liq Udc) 1 gm PO AC&BEDTIME [facility] Last Admin: 05/29/21 05:08 Dose: 1 gm Documented by: Thiamine Mononitrate (Thiamine 100 Mg Tablet) 250 mg PO QAM [facility] Last Admin: 05/29/21 05:08 Dose: 250 mg Documented by: Vitals/I&O/Wt Last Vital Signs Temp 98.3 F 05/28/21 19:11 Pulse 83 05/29/21 06:00 Resp 17 05/29/21 04:59 BP 98/61 05/28/21 19:11 Pulse Ox 94 05/28/21 20:25 05/28/21 05/29/21 05/29/21 22:59 06:59 14:59 Intake Total 560 / 1170 100 / 1270 Output Total 325 / 675 250 / 925 Balance 235 / 495 -150 / 345 Weight last 48 hrs Weight 135.624 kg Weight 179.895 kg Physical Exam Narrative: EXAM NARRATIVE: swollen in bed, NARD vs noted- HR normal, low to normal bp heent- nc/at, eomi neck supple lung -dull bases heart- irreg irreg, +MÓNICA abd soft, distended w/ ascites, some tenderness, +BS, + peritoneal dialysis catheter ext 2+ b/l leg edema neuro- a,a,o x 3 pulses weak Data : 05/29/21 05:05 05/29/21 05:05 Micro: Microbiology 05/25/21 00:20 Gram Stain - Final Ascites Fluid Body Fluid Culture - Final Stenotrophomonas maltophilia 05/25/21 22:00 Gram Stain - Final Peritoneal Fluid Body Fluid Culture - Preliminary Gram Negative Rods A&P Additional A&P Information 1. Acute kidney injury Likely to be prerenal in nature, urine sodium 31, urine creatinine 30, although this is nondiagnostic given his recent exposure to diuretics. Could be hepatorenal physiology also present. - pt is urinating and cr stable- off of PD for 2 day. continue off of PD -drain abd and may need lasix Daily renal panel, strict I's and O's Avoid usual nephrotoxic agents. 2. gram negative nicolette Peritonitis Of note back in March he had a number of bacteria grown out from the fluid that was draining from his peritoneal catheter. This included Enterococcus faecalis, a pansensitive bacteria, Klebsiella, sensitive to imipenem and Cipro and he also had E. coli in his urine. This was also sensitive species. Culture of peritoneal fluid sent and stenotrhomonas maltophilia and gram neg rods. can use levaquin or vanco -Blood cultures neg. He is currently on Primaxin and Cipro, -s/p IP vancomycin 05-26-21- vanco level =10- redose if needed PD cell count up again to 2486- i recommend removing Peritoneal catheter as wbc rising- however, he will likely need a new catheter w/in 2- 4 weeks as he has been draining approx a liter a day 3. anemia- ferritin 1127- not iron def - ALYSA 4. hypoantremia - hold PD- salt tabs and monitor -na improved to 124 -free water restrict 1500 ml/ day -consider tolvaptan and lasix 5. renal BMD- monitor phos -normal -replace vit d 6. 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
[2021-05-29] MEDS: folic acid 1 mg Tablet PO (09:28)
[2021-05-29] MEDS: pantoprazole DR 40 mg Tablet PO (09:28)
[2021-05-29] MEDS: ferrous sulfate EC 325 mg Tablet PO (09:29)
[2021-05-29] MEDS: sodium chloride 1 gm Tablet 2 GM PO ×2 (09:29→19:32)
[2021-05-29] MEDS: nystatin cream 30 gm 1 APPLIC TOPICAL (09:32)
[2021-05-29] MEDS: HYDROcodone-acetaminophen 5-325 mg Tablet 1 TAB PO ×2 (09:45→19:33)
--- NOTE | 2021-05-29 14:52 | P.ANESUD_ITS ---
Pre-Anesthetic Update Pre-Anesthetic Assessment: Date of Surgery/Procedure: 05/29/21 Preop Francesca gnosis: CHRONIC PERITONITIS Proposed Procedure: Operation Date: 05/27/21 08:00 Proposed Procedures p EGD(Not Applicable) - Gabino Clark MD Operation Date: 05/29/21 14:00 Proposed Procedures p Peritoneal Catheter Removal(Left) - Gabino Clark MD Any changes to Pre-Anesthetic Assessment?: No Last Intake: midnight Labs Last 48hrs: Laboratory Results - last 48 hr 05/27/21 05/27/21 05/28/21 14:03 20:05 02:45 WBC RBC Hgb Hct MCV MCH MCHC RDW Plt Count MPV Neut % (Auto) Lymph % (Auto) [place] % (Auto) Eos % (Auto) Baso % (Auto) Neut # (Auto) Lymph # (Auto) [place] # (Auto) Eos # (Auto) Baso # (Auto) Nucleated RBC % (a uto) Nucleated RBCs # Sodium 120 L 121 L Potassium 4.8 4.6 Chloride 88 L 88 L Carbon Dioxide 23 Anion Gap 12.8 14.6 BUN 28 H 24 H Creatinine 2.5 H 2.5 H GFR Calculation 26.8 L 26.8 L Glucose 87 POC Glucose Calculated Osmolal ity 254 L 255 L Calcium 7.3 L 7.2 L Phosphorus Magnesium Total Bilirubin AST ALT Alkaline Phosphata se Total Protein Albumin Globulin Random Vancomycin 10.4 L 05/28/21 05/28/21 05/28/21 02:45 02:45 08:18 WBC 9.4 RBC 2.73 L Hgb 8.5 L Hct 24.5 L MCV 89.7 MCH 31.1 MCHC 34.7 RDW 14.7 Plt Count 159 MPV 8.8 Neut % (Auto) 78.4 Lymph % (Auto) 6.1 [place] % (Auto) 12.7 Eos % (Auto) 1.5 Baso % (Auto) 0.4 Neut # (Auto) 7.38 Lymph # (Auto) 0.6 L [place] # (Auto) 1.2 H Eos # (Auto) 0.1 Baso # (Auto) 0.0 Nucleated RBC % (a uto) 0 Nucleated RBCs # 0.0 Sodium 122 L 120 L Potassium 4.7 4.5 Chloride 90 L 89 L Carbon Dioxide 21 L 19 L Anion Gap 15.7 16.5 BUN 29 H 23 H Creatinine 2.4 H 2.4 H GFR Calculation 28.0 L 28.0 L Glucose 72 106 POC Glucose Calculated Osmolal ity 258 L 254 L Calcium 7.4 L 7.1 L Phosphorus 4.6 H Magnesium 1.6 L Total Bilirubin 1.0 AST 21 ALT 11 Alkaline Phosphata se 85 Total Protein 4.5 L Albumin 1.9 L Globulin 2.6 Random Vancomycin 05/28/21 05/29/21 05/29/21 14:30 05:05 05:05 WBC 8.9 RBC 2.82 L Hgb 8.9 L Hct 26.3 L MCV 93.3 MCH 31.6 MCHC 33.8 RDW 14.7 Plt Count 144 MPV 8.8 Neut % (Auto) 74.9 Lymph % (Auto) 6.5 [place] % (Auto) 14.7 Eos % (Auto) 2.3 Baso % (Auto) 0.5 Neut # (Auto) 6.65 Lymph # (Auto) 0.6 L [place] # (Auto) 1.3 H Eos # (Auto) 0.2 Baso # (Auto) 0.0 Nucleated RBC % (a uto) 0 Nucleated RBCs # 0.0 Sodium 120 L 124 L Potassium 4.6 4.5 Chloride 89 L 92 L Carbon Dioxide 21 L 23 Anion Gap 14.6 13.5 BUN 23 H 28 H Creatinine 2.2 H 2.3 H GFR Calculation 31.0 L 29.5 L Glucose 99 80 POC Glucose Calculated Osmolal ity 254 L 262 L Calcium 7.4 L 7.4 L Phosphorus 3.9 Magnesium 1.8 Total Bilirubin 1.1 AST 30 ALT 11 Alkaline Phosphata se 85 Total Protein 4.4 L Albumin 1.9 L Globulin 2.5 Random Vancomycin 05/29/21 06:50 WBC RBC Hgb Hct MCV MCH MCHC RDW Plt Count MPV Neut % (Auto) Lymph % (Auto) [place] % (Auto) Eos % (Auto) Baso % (Auto) Neut # (Auto) Lymph # (Auto) [place] # (Auto) Eos # (Auto) Baso # (Auto) Nucleated RBC % (a uto) Nucleated RBCs # Sodium Potassium Chloride Carbon Dioxide Anion Gap BUN Creatinine GFR Calculation Glucose POC Glucose 143 H Calculated Osmolal ity Calcium Phosphorus Magnesium Total Bilirubin AST ALT Alkaline Phosphata se Total Protein Albumin Globulin Random Vancomycin Vitals: Temperature 97.1 F L 05/29/21 13:42 Temperature Source Temporal Artery S can 05/29/21 13:42 Pulse Rate 75 05/29/21 13:42 Pulse Rhythm 05/27/21 04:25 Pulse Strength 2+ Slightly Dimin ished 05/29/21 12:00 Respiratory Rate 18 05/29/21 13:42 Respiratory Effort Non-Labored 05/29/21 12:00 Respiratory Depth Normal 05/29/21 12:00 Respiratory Patter n 05/27/21 04:25 Blood Pressure 103/65 05/29/21 13:42 Blood Pressure Zaina n 77 05/29/21 13:42 Blood Pressure Pos ition Supine 05/28/21 19:11 Pulse Oximetry 99 05/29/21 13:42 Oxygen Delivery Me thod 05/29/21 13:42 Oxygen Flow Rate 3 05/27/21 08:25 Fraction of Inspir ed Oxygen 21 05/29/21 12:00 Sepsis Recent Feve r Within 48 Hours No 05/24/21 13:20 Cardiac Studies: No Data to Display
--- NOTE | 2021-05-29 14:52 | ANES.PREANE2 ---
Pre-Anesthetic Assessment Pre-Anesthetic Assessment: Height/Weight: Height 1.83 m Weight 135.624 kg Temp Pulse Resp BP Pulse Ox 97.1 F L 75 18 103/65 99 05/29/21 13:42 05/29/21 13:42 05/29/21 13:42 05/29/21 13:42 05/29/21 13:42 Preop Diagnosis: CHRONIC PERITONITIS Proposed Procedure: Operation Date: 05/27/21 08:00 Proposed Procedures p EGD(Not Applicable) - Gabino Clark MD Operation Date: 05/29/21 14:00 Proposed Procedures p Peritoneal Catheter Removal(Left) - Gabino Clark MD Was Beta Rosana taken within 24 hours: N/A Was Clonidine taken within 24 hours: N/A Social: Social History: No alcohol and No tobacco Exam: Pre-Anes Outpt Exam: alert, oriented x 3 and clear to auscultation bilaterally Airway: Submandibular: WNL Cervical ROM: WNL MP: 2 Dentition: Chipped Pulmonary: Pulmonary: COPD CV/HEM: CV/HEM: Afib, Anemia, Arrythmia and CHF Hepatic: Hepatic: Cirrohsis GI: GI: GERD Comments: gastritis Metabolic: Metabolic: Morbid obesity Anesthetic Plan: ASA status: 3 Anesthesia: General Risk of > 500 ml blood loss (7ml/kg in children): No Meds/Allergies Current Medications: Current Medications Generic Name Dose Route Start Last Admin Trade Name Freq PRN Reason Stop Dose Admin Hydrocodone Bitart /Acetaminophen 1 tab 05/24/21 23:04 05/29/21 09:45 Hydrocodone-Acet aminophen 5-325 Mg Tablet PO 1 tab Q8H PRN Administration MODERATE TO SEVER E PAIN Alfuzosin HCl 10 mg 05/25/21 13:00 05/28/21 13:42 Alfuzosin 10 Mg Er Tablet PO 10 mg DAILY@13 DHAVAL Administration Artificial Tears 1 drop 05/27/21 04:51 05/27/21 05:45 Artificial Tears Op Soln 15 Ml Btl EYE-BOTH 1 drop Q4H PRN Administration DRY EYE(S) Diltiazem HCl 120 mg 05/25/21 06:00 05/29/21 05:08 Diltiazem Er (24 hr) 120 Mg Capsule PO 120 mg QAM DHAVAL Administration Ferrous Sulfate 325 mg 05/25/21 09:00 05/29/21 09:29 Ferrous Sulfate Ec 325 Mg Tablet PO 325 mg DAILY DHAVAL Administration Folic Acid 1 mg 05/25/21 10:00 05/29/21 09:28 Folic Acid 1 Mg Tablet PO 1 mg DAILY@10 DHAVAL Administration Lactulose 20 gm 05/24/21 23:04 05/28/21 14:30 Lactulose Oral L iq 20 Gm/30 Ml Udc PO 20 gm TID PRN Administration SEE PHARMACY COMM ENTS Midodrine 10 mg 05/26/21 09:00 05/29/21 11:41 Midodrine 5 Mg T ablet PO Not Given TID DHAVAL Nystatin 1 applic 05/28/21 18:00 05/29/21 09:32 Nystatin Cream 3 0 Gm TOPICAL 1 applic BID DHAVAL Administration Ondansetron HCl 4 mg 05/24/21 16:46 05/28/21 03:11 Ondansetron 2 Mg /Ml Sdv 2 Ml IVP 4 mg Q6H PRN Administration NAUSEA AND VOMITI NG Pantoprazole Sodiu m 40 mg 05/25/21 18:00 05/29/21 09:[address] 40 Mg Tablet PO 40 mg BID DHAVAL Administration Fluticasone/Salmet qutea 1 puff 05/25/21 08:00 05/29/21 08:10 Fluticasone-Salm eterol 250-50 Disk us INHALATION 1 puff BID.RESPIRATORY S CH Administration Sodium Chloride 2 gm 05/26/21 09:00 05/29/21 09:29 Sodium Chloride 1 Gm Tablet PO 2 gm TID DHAVAL Administration Sucralfate 1 gm 05/25/21 17:00 05/29/21 12:21 Sucralfate 1 Gm/ 10 Ml Oral Liq Udc PO 1 gm AC&BEDTIME DHAVAL Administration Thiamine Mononitra te 250 mg 05/25/21 06:00 05/29/21 05:08 Thiamine 100 Mg Tablet PO 250 mg QAM DHAVAL Administration PFSH Anesthesia PFSH: Medical History (Updated 05/27/21 @ 14:23 by Sourav Meyer MD) Acute dyspnea Acute encephalopathy Acute hypokalemia Acute hyponatremia Ascites Ascites due to alcoholic cirrhosis Ataxia Atrial fibrillation and flutter Echocardiogram done in 2019 shows an EF of 40 to 45% with hypokinetic septum, anteroseptum and inferior wall, biatrial enlargement Atrial fibrillation with RVR BPH loc w urin obs/LUTS Charcot's arthropathy Charcot's joint of left foot Chest pain Pleuritic chest pain: Resolved; CHF (congestive heart failure), NYHA class III Chronic hyponatremia End-stage liver disease Erectile dysfunction ETOH abuse Fracture of fourth metatarsal bone of left foot Fracture of second metatarsal bone of left foot Fracture of third metatarsal bone of left foot Hepatorenal syndrome History of abdominal paracentesis Hx of esophageal varices Hyperkalemia Hyponatremia Hyponatremia with excess extracellular fluid volume Laceration of left foot Neuropathy Non-pressure chronic ulcer of other part of left foot limited to breakdown of skin Occult blood in stools Peritoneal dialysis catheter in situ Peyronie disease Pleural effusion Pleural effusion associated with hepatic disorder Pneumonia PVD (peripheral vascular disease) Surgical History H/O colonoscopy 10-12 yrs H/O esophagogastroduodenoscopy History of tonsillectomy Hx of umbilical hernia repair Hx of vasectomy Status post surgery (07/05/20) peritoneal catheter for ascites Family History Grandfather CAD (coronary artery disease) Grandmother CAD (coronary artery disease) Cancer Father Cancer Denies family history of Anesthesia complication Bleeding disorder Social History Quit status (tobacco): has quit using tobacco Year quit tobacco: 2014 less than a [id number] Second hand smoke exposure: No Smoking risk assessment/counseling performed?: Yes Alcohol intake: current Alcohol intake frequency: 3 or more drinks per day Alcohol type: beer Adopted: No Caregiver/support person: Yes Lives independently: Yes Household members: children Marital status: Current occupational status: unemployed Pets and animals: Yes History of recent travel: No Current gender identity: Male Data Anesthesia CBC & Chem 7: 05/29/21 05:05 05/29/21 05:05 Other Labs: Laboratory Results - last 48 hr 05/27/21 05/27/21 05/28/21 14:03 20:05 02:45 WBC RBC Hgb Hct MCV MCH MCHC RDW Plt Count MPV Neut % (Auto) Lymph % (Auto) [place] % (Auto) Eos % (Auto) Baso % (Auto) Neut # (Auto) Lymph # (Auto) [place] # (Auto) Eos # (Auto) Baso # (Auto) Nucleated RBC % (auto) Nucleated RBCs # Sodium 120 L 121 L Potassium 4.8 4.6 Chloride 88 L 88 L Carbon Dioxide 23 Anion Gap 12.8 14.6 BUN 28 H 24 H Creatinine 2.5 H 2.5 H GFR Calculation 26.8 L 26.8 L Glucose 87 POC Glucose Calculated Osmolality 254 L 255 L Calcium 7.3 L 7.2 L Phosphorus Magnesium Total Bilirubin AST ALT Alkaline Phosphatase Total Protein Albumin Globulin Random Vancomycin 10.4 L 05/28/21 05/28/21 05/28/21 02:45 02:45 08:18 WBC 9.4 RBC 2.73 L Hgb 8.5 L Hct 24.5 L MCV 89.7 MCH 31.1 MCHC 34.7 RDW 14.7 Plt Count 159 MPV 8.8 Neut % (Auto) 78.4 Lymph % (Auto) 6.1 [place] % (Auto) 12.7 Eos % (Auto) 1.5 Baso % (Auto) 0.4 Neut # (Auto) 7.38 Lymph # (Auto) 0.6 L [place] # (Auto) 1.2 H Eos # (Auto) 0.1 Baso # (Auto) 0.0 Nucleated RBC % (auto) 0 Nucleated RBCs # 0.0 Sodium 122 L 120 L Potassium 4.7 4.5 Chloride 90 L 89 L Carbon Dioxide 21 L 19 L Anion Gap 15.7 16.5 BUN 29 H 23 H Creatinine 2.4 H 2.4 H GFR Calculation 28.0 L 28.0 L Glucose 72 106 POC Glucose Calculated Osmolality 258 L 254 L Calcium 7.4 L 7.1 L Phosphorus 4.6 H Magnesium 1.6 L Total Bilirubin 1.0 AST 21 ALT 11 Alkaline Phosphatase 85 Total Protein 4.5 L Albumin 1.9 L Globulin 2.6 Random Vancomycin 05/28/21 05/29/21 05/29/21 14:30 05:05 05:05 WBC 8.9 RBC 2.82 L Hgb 8.9 L Hct 26.3 L MCV 93.3 MCH 31.6 MCHC 33.8 RDW 14.7 Plt Count 144 MPV 8.8 Neut % (Auto) 74.9 Lymph % (Auto) 6.5 [place] % (Auto) 14.7 Eos % (Auto) 2.3 Baso % (Auto) 0.5 Neut # (Auto) 6.65 Lymph # (Auto) 0.6 L [place] # (Auto) 1.3 H Eos # (Auto) 0.2 Baso # (Auto) 0.0 Nucleated RBC % (auto) 0 Nucleated RBCs # 0.0 Sodium 120 L 124 L Potassium 4.6 4.5 Chloride 89 L 92 L Carbon Dioxide 21 L 23 Anion Gap 14.6 13.5 BUN 23 H 28 H Creatinine 2.2 H 2.3 H GFR Calculation 31.0 L 29.5 L Glucose 99 80 POC Glucose Calculated Osmolality 254 L 262 L Calcium 7.4 L 7.4 L Phosphorus 3.9 Magnesium 1.8 Total Bilirubin 1.1 AST 30 ALT 11 Alkaline Phosphatase 85 Total Protein 4.4 L Albumin 1.9 L Globulin 2.5 Random Vancomycin 05/29/21 06:50 WBC RBC Hgb Hct MCV MCH MCHC RDW Plt Count MPV Neut % (Auto) Lymph % (Auto) [place] % (Auto) Eos % (Auto) Baso % (Auto) Neut # (Auto) Lymph # (Auto) [place] # (Auto) Eos # (Auto) Baso # (Auto) Nucleated RBC % (auto) Nucleated RBCs # Sodium Potassium Chloride Carbon Dioxide Anion Gap BUN Creatinine GFR Calculation Glucose POC Glucose 143 H Calculated Osmolality Calcium Phosphorus Magnesium Total Bilirubin AST ALT Alkaline Phosphatase Total Protein Albumin Globulin Random Vancomycin Micro: Microbiology 05/26/21 10:12 Gram Stain - Final Peritoneal Fluid Body Fluid Culture - Preliminary 05/25/21 22:00 Gram Stain - Final Peritoneal Fluid Body Fluid Culture - Final Stenotrophomonas maltophilia 05/25/21 00:20 Gram Stain - Final Ascites Fluid Body Fluid Culture - Final Stenotrophomonas maltophilia Cardiac Studies: No Data to Display
[2021-05-29 14:56] LABS: Peritoneal Fld Adenosine Deami 18.2 U/L (<7.6)
--- NOTE | 2021-05-29 15:59 | PM.OP ---
Operative Report Date of procedure: May 29, 2021 Pre-op Diagnosis: CHRONIC PERITONITIS Post-op diagnosis: other (PD catheter in place) Procedure Done: Explantation of peritoneal dialysis catheter Specimens removed/disposition: Tip of peritoneal dialysis catheter sent for cultures and sensitivities Surgeon: Gabino Clark Gear Keeper: aircraft systems technician Haley Circulating nurse Yarelis DILL Anesthesia: General (GETA MANAGER LEARNING Demetrio) Estimated blood loss (mL): 5 Condition: stable Disposition: floor Brief History: Chronic peritonitis with concern of infected PD catheter Procedure: After identifying the patient in the holding area, was taken to the operating room, placed in supine position, intubated by anesthesia, patient was already on antibiotics. Time-out was done verifying the patient's name/date of /planned procedure and destination after the procedure, all were in agreement Prep and drape of the abdomen was done under the usual sterile technique, after palpation of the site of the catheter towards the right side of the abdomen skin incision was created and dissection further to the subcutaneous layer was done and exteriorization of the catheter was achieved after taking all adhesions down.I decided at this point to create a counter stab incision further inferior to bring about the catheter at its exit from the fascia at this point the catheter was completely exteriorized and the tip of the catheter was sent for cultures and sensitivities, and the fascia was closed by #1 PDS interrupted sutures, both incisions were closed in layers after copious and thorough irrigation, and skin jerrod were then placed approximate the skin edges followed by dry dressing. Patient tolerated the procedure well and was taken to the recovery area I was present for the whole entire procedure
[2021-05-29] MEDS: sodium chloride 0.9% 1,000 ML 30 ML IV (16:08)
--- NOTE | 2021-05-29 16:42 | PC.NURSE ---
Patient was extubated from the vent at 1638. Both anesthesia and respiratory were present, beginning process of putting patient on bypap.
[2021-05-29] MEDS: midazolam 1 mg/mL INJ 2 mL IVP (16:45)
--- NOTE | 2021-05-29 16:57 | PC.NUTR ---
Nutrition assessment completed for LOS. NPO at this time, with poor average po intake prior to NPO status. Recommend to advance diet as tolerated after procedure. If dialysis to be continued, recommend renal dialysis diet, otherwise recommend renal non-dialysis diet. Suggest Nepro once daily for additional protein/kcal to aid in meeting estimated needs. See full RD assessment for further details.
--- NOTE | 2021-05-29 16:59 | PC.NUTR ---
Nutrition assessment completed for LOS. NPO, with poor po intakes prior to NPO status. Recommend to advance diet as tolerated after procedure. If dialysis to be continued, recommend renal dialysis diet, otherwise recommend renal non-dialysis diet. Pt may benefit from Nepro supplement, however has previously told dietary staff that he would prefer only water as his beverage. See full RD assessment for further details.
--- NOTE | 2021-05-29 17:00 | PC.NURSE ---
Pt returned from surgery to room 112-1. Pts drsg dry and intact. Pt on bipap at 30%. Pt resp even and non-labored. Pt had no c/o pain or discomfort at the present time. Call light in reach. Will cont to monitor.
--- NOTE | 2021-05-29 17:06 | PM.PACU ---
PACU note PACU note: patient placed on Bipap after extubation. O2 saturation maintaining 95%. Will let patient keep Bipap on the floor for the night. Post-Anesthesia Exam: awake Disposition: back to floor
--- NOTE | 2021-05-29 17:31 | SUR.PHASEI ---
1611 PT RECIEVED TO PACU SLEEPING INTUBATED WITH 7.5 ET SECURED AT 23 AT LIP, RESP STAFF AND ANESTHESIA STAFF HERE, PT PLACED ON VENT PER RESP STAFF FIO2 AT100% RATE 16 TV 450 . VSS PT OPENS EYES BUT OTHERWISE TO WEAK TO MOVE. ABD LARGE SOFT
[2021-05-29] MEDS: midodrine 5 mg TABLET 10 MG PO (19:32)
--- NOTE | 2021-05-29 19:38 | PC.NURSE ---
Dr. Goodson ordered to restart renal dialysis diet. Notified that patient states that [place] isn't cutting it. Ordered Morphine PRN for pain 2 mg q6hr.
--- NOTE | 2021-05-29 19:50 | PC.NURSE ---
Addendum entered by Maria Elena Zamora RN 05/29/21 22:24: BASSAM Ash ordered. Original Note: Dr. Hansen notified of patient asking for Tums or Malanta for heartburn.
[2021-05-29] MEDS: morphine 4 mg/mL SDV 1 mL 2 MG IVP (20:52)
[2021-05-29] MEDS: alum-mag-hydroxide-sime 30 mL UDC 15 ML PO (21:20)
--- NOTE | 2021-05-29 21:21 | PM.PN ---
Subjective Subjective: Interval history: States has been bothered by heartburn for several days. Abdomen still bothering him today. Awaiting procedure for catheter removal. Vitals/I&O/Wt Last Vital Signs Temp 99.3 F 05/29/21 17:25 Pulse 92 05/29/21 19:47 Resp 15 05/29/21 20:52 BP 92/57 05/29/21 19:47 Pulse Ox 92 05/29/21 19:47 05/29/21 05/29/21 05/29/21 06:59 14:59 22:59 Intake Total 100 / 1270 100 / 100 0 / 100 Output Total 250 / 925 100 / 100 5 / 105 Balance -150 / 345 0 / 0 -5 / -5 Weight last 48 hrs Weight 135.624 kg Weight 179.895 kg Physical Exam Const: COMMON NORMALS: no acute distress and patient oriented x3 GENERAL APPEARANCE: cooperative NUTRITIONAL APPEARANCE: obese OTHER: Sleeping, wakes up to voice. HENMT: COMMON NORMALS: oropharynx normal Neck/C-Spine: COMMON NORMALS: no JVD Resp: COMMON NORMALS: normal respiratory effort and clear to auscultation bilaterally AUSCULTATION: clear to auscultation bilaterally Cardio: COMMON NORMALS: no JVD, regular rhythm, S1 normal heart sound present, S2 normal heart sound present and No murmurs present (Cardio) RHYTHM: regular rhythm HEART SOUNDS: S1 normal heart sound present and S2 normal heart sound present GI: COMMON NORMALS: Normal to inspection, nondistended, normoactive bowel sounds present and Soft to palpation PALPATION: Yes Soft to palpation and Yes Tenderness to palpation present (GI) (mild) Extremity: COMMON NORMALS: no joint enlargement and no pedal edema Neuro: COMMON NORMALS: patient oriented x3 and moves all extremities Skin: COMMON NORMALS: no rashes or lesions noted GENERAL SKIN EXAM: no rashes or lesions noted Data : 05/29/21 05:05 05/29/21 05:05 Micro: Microbiology 05/24/21 19:59 Blood Culture - Final Blood NO GROWTH AFTER 5 DAYS 05/24/21 19:36 Blood Culture - Final Blood NO GROWTH AFTER 5 DAYS 05/25/21 00:45 Gram Stain - Final Abdomen Abscess Culture - Final 05/26/21 10:12 Gram Stain - Final Peritoneal Fluid Body Fluid Culture - Preliminary 05/25/21 22:00 Gram Stain - Final Peritoneal Fluid Body Fluid Culture - Final Stenotrophomonas maltophilia A&P Assessment and plan (1) Peritonitis: Stenotrophomonas again growing in culture from 05/25. Overall would suspect this may likely be colonizer off the catheter itself. Would suspect peritonitis may be polymicrobial, although in rare cases may be caused by stenotrophomonas. Catheter removed today. Continue antibiotics. Reasonable to cover with Levaquin which should cover stenotrophomonas as well. He overall would like to have the catheter replaced at some point, although there has been discussion regarding TIPS as well, although it appears this discussion has been going on for quite a while without successful reassessment by GI of the patient. Appears she is not actually making it to see GI. Stenotrophomonas, previously Klebsiella, Enterococcus Status: Acute (2) Acute hyponatremia: Continue salt tablets, water restriction. Status: Acute (3) Upper gastrointestinal hemorrhage due to gastritis: Status post EGD with findings of esophagitis, gastritis, Duodenal ulcer noted with active oozing. Injected. PPI, sucralfate. Status: Acute (4) Anemia: Status: Acute (5) Hyperkalemia: Resolved. Status: Acute (6) Hepatorenal syndrome: Status: Acute (7) Atrial fibrillation and flutter: Status: Acute (8) CHF (congestive heart failure), NYHA class III: EF of 40 to 45% Status: Acute Qualifiers: Congestive heart failure type: systolic Congestive heart failure chronicity: unspecified Qualified Code(s): I50.20 - Unspecified systolic (congestive) heart failure (9) Peritoneal dialysis catheter in situ: Status: Acute (10) End-stage liver disease: Status: Acute (11) Alcoholic cirrhosis of liver with ascites: Status: Acute (12) ETOH abuse: Status: Acute Additional A&P Information Charcot deformities of feet: It has been relayed to me he has not been ambulatory for a while according to his mother. Attestations Medical Necessity Statement*: Continue admission for cyst management of peritonitis. Coding Level of Care Code Acute Carbon Brushes Assembler for [facility] Fwd Diagnoses Peritonitis K65.9 Acute hyponatremia E87.1 Upper gastrointestinal hemorrhage due to gastritis K29.71 Anemia D64.9 Hyperkalemia E87.5 Hepatorenal syndrome K76.7 Atrial fibrillation and flutter I48.91; I48.92 CHF (congestive heart failure), NYHA class III I50.20 Congestive heart failure type: systolic Congestive heart failure chronicity: unspecified Peritoneal dialysis catheter in situ Z99.2 End-stage liver disease K72.90 Alcoholic cirrhosis of liver with ascites K70.31 ETOH abuse F10.10
--- NOTE | 2021-05-29 22:10 | PC.NURSE ---
Dr. Hansen came to see patient. Ordered okay to move patient to Med-Surg.
[2021-05-30] VITALS (8 sets, daily range): BP systolic 97–120; BP diastolic 55–70; PULSE 73–103; RESP 14–20; TEMP 36.6–36.8; O2SAT 92–98
[2021-05-30 05:38] LABS: Basophils # 0.1 10^3/uL (0.0-0.1); Basophils % 0.5 %; Eosinophils # 0.1 10^3/uL (0.0-0.8); Eosinophils % 1.4 %; Hematocrit 26.3 % (42.0-52.0); Hemoglobin 8.6 g/dL (11.7-16.6); Lymphocytes # 0.5 10^3/uL (0.8-4.8); Lymphocytes % 5.6 %; Mean Corpuscular HGB Conc 32.7 g/dL (30.0-36.0); Mean Corpuscular Hemoglobin 30.7 pg (28.0-34.0); Mean Corpuscular Volume 93.9 fl (80-94); Mean Platelet Volume 9.2 fL (7.4-10.4); Monocytes # 1.4 10^3/uL (0.2-0.9); Monocytes % 14.8 %; Neutrophils # 7.22 10^3/uL (1.8-7.7); Neutrophils % 76.7 %; Nucleated Red Blood Cells % 0 %; Platelet Count 151 10^3/cmm (130-400); Red Cell Distribution Width 14.7 % (12.1-15.1); White Blood Count 9.4 10^3/uL (4.0-10.0)
[2021-05-30 05:53] LABS: Alanine Aminotransferase 9 U/L (0-41); Alkaline Phosphatase 80 IU/L (40-130); Anion Gap 13.8 (5-19); Aspartate Amino Transferase 19 U/L (0-40); Blood Urea Nitrogen 30 mg/dL (6-20); Calcium 7.6 mg/dL (8.5-10.5); Carbon Dioxide 22 mmol/L (22-29); Chloride 93 mmol/L (98-107); Globulin 2.6 g/dL (1.3-4.6); Glomerular Filtration Rate 29.5 mL/min (90-130); Glucose 100 mg/dL (65-115); Magnesium 1.8 mg/dL (1.7-2.3); Osmolality Calculated 264 mOsm/kg (285-295); Phosphorus 4.2 mg/dL (2.5-4.5); Potassium 4.8 mmol/L (3.5-5.1); Sodium 124 mmol/L (136-145); Total Bilirubin 0.8 mg/dL (0.15-1.2); Total Protein 4.6 g/dL (6.6-8.7)
[2021-05-30] MEDS: thiamine 100 mg Tablet 250 MG PO (06:26)
[2021-05-30] MEDS: dilTIAZem ER (24HR) 120 mg Capsule PO (06:26)
[2021-05-30] MEDS: HYDROcodone-acetaminophen 5-325 mg Tablet 1 TAB PO ×2 (06:29→20:02)
[2021-05-30] MEDS: sucralfate 1 gm/10 mL Oral Liq UDC PO ×4 (06:30→20:02)
[2021-05-30] MEDS: pantoprazole DR 40 mg Tablet PO ×2 (08:07→17:52)
[2021-05-30] MEDS: ferrous sulfate EC 325 mg Tablet PO (08:07)
[2021-05-30] MEDS: nystatin cream 30 gm 1 APPLIC TOPICAL ×2 (08:07→17:52)
[2021-05-30] MEDS: midodrine 5 mg TABLET 10 MG PO ×3 (08:07→20:03)
[2021-05-30] MEDS: sodium chloride 1 gm Tablet 2 GM PO ×3 (08:07→20:05)
[2021-05-30] MEDS: alum-mag-hydroxide-sime 30 mL UDC 15 ML PO ×2 (08:17→20:02)
[2021-05-30] MEDS: lidocaine 2% INJ 20 mL INJECTION (08:34)
--- NOTE | 2021-05-30 09:27 | PC.RESP ---
RT Shift Note Frequent safety and respiratory rounds continue. Orders completed as indicated. Patient monitored pre and post treatments throughout shift. Patient [Did.] tolerate treatments appropriately. Condition [DidNotChange]. Patient and/or retail sales representative educated on respiratory treatment and medications. Patient and/or retail sales representative [verbalized understanding]. Will continue to monitor patient progress.
--- NOTE | 2021-05-30 09:29 | P.PN_ITS ---
Documented by User: TON Gibson STDTIFFANIE 05/30/21 15:25 Subjective Subjective: Interval history: Patient reports he feels better this morning after peritoneal catheter removed yesterday. Reports his heartburn and abdominal pain have improved. Is unhappy with the meals and requests a regular diet. He has been working with PT and is able to transition from the bed to chair. Reports he was able to walk at home with his walker but is unable to do so now without assistance. Medications: Reviewed: Yes Vitals/I&O/Wt Last Vital Signs Temp 98.0 F 05/30/21 07:56 Pulse 83 05/30/21 09:26 Resp 17 05/30/21 09:26 BP 97/63 05/30/21 07:56 Pulse Ox 95 05/30/21 09:26 05/29/21 05/30/21 05/30/21 22:59 06:59 14:59 Intake Total 100 / 200 680 / 880 841.5 / 841.5 Output Total 155 / 255 Balance -55 / -55 680 / 625 841.5 / 841.5 Weight last 48 hrs Weight 134.83 kg Weight 135.624 kg Physical Exam Narrative: EXAM NARRATIVE: General obese male in no acute distress HEENT pupils reactive oropharynx clear. Neck supple. No JVD or lymphadenopathy. Respiratory clear to auscultation bilaterally. No wheezes rales or rhonchi. Cardiac regular rate and rhythm. No murmurs rubs or gallops. GI abdomen distended. Mildly tender. Incision noted on RUQ clean and dry. Bowel sounds present. deferred Extremities no cyanosis clubbing or edema Skin no rash. Data : 05/30/21 05:00 05/30/21 05:00 Other Labs: Calcium 7.6. Phosphorus 4.2. Magnesium 1.8. Albumin 2. Culture catheter tip no organisms seen Peritoneal fluid culture growing gram-negative rods. Micro: Microbiology 05/24/21 19:59 Blood Culture - Final Blood NO GROWTH AFTER 5 DAYS 05/24/21 19:36 Blood Culture - Final Blood NO GROWTH AFTER 5 DAYS 05/25/21 00:45 Gram Stain - Final Abdomen Abscess Culture - Final 05/26/21 10:12 Gram Stain - Final Peritoneal Fluid Body Fluid Culture - Preliminary 05/25/21 22:00 Gram Stain - Final Peritoneal Fluid Body Fluid Culture - Final Stenotrophomonas maltophilia A&P Assessment and plan (1) Peritonitis: Catheter removed yesterday. Continue antibiotics. Culture of catheter tip negative. Peritoneal fluid culture growing a gram-negative rods. Stenotrophomonas again growing in culture from 05/25. Would suspect peritonitis may be polymicrobial, although in rare cases may be caused by stenotrophomonas. He overall would like to have the catheter replaced at some point, although there has been discussion regarding TIPS as well, although it appears this discussion has been going on for quite a while without successful reassessment by GI of the patient. Appears he is not actually making it to see GI. Stenotrophomonas, previously Klebsiella, Enterococcus Status: Resolved (2) Acute hyponatremia: 124 today. Continue salt tablets, water restriction. Status: Acute (3) Upper gastrointestinal hemorrhage due to gastritis: Status post EGD with findings of esophagitis, gastritis, Duodenal ulcer noted with active oozing. Injected. PPI, sucralfate. Status: Acute (4) Anemia: Status: Acute (5) Hyperkalemia: Resolved. Status: Acute (6) Hepatorenal syndrome: Status: Acute (7) Atrial fibrillation and flutter: Status: Acute (8) CHF (congestive heart failure), NYHA class III: EF of 40 to 45% Status: Acute Qualifiers: Congestive heart failure chronicity: unspecified Congestive heart failure type: systolic Qualified Code(s): I50.20 - Unspecified systolic (congestive) heart failure (9) Peritoneal dialysis catheter in situ: Catheter removed yesterday. Patient reports he feels much since catheter has been removed. Abdominal pain has improved. Incision is clean and dry. Patient states he would like the catheter reinserted in future. Status: Acute (10) End-stage liver disease: Status: Acute (11) Alcoholic cirrhosis of liver with ascites: Status: Acute (12) ETOH abuse: Status: Acute Additional A&P Information Charcot deformities of feet: It has been relayed to me he has not been ambulatory for a while according to his mother. 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 Peritonitis K65.9 Acute hyponatremia E87.1 Upper gastrointestinal hemorrhage due to gastritis K29.71 Anemia D64.9 Hyperkalemia E87.5 Hepatorenal syndrome K76.7 Atrial fibrillation and flutter I48.91; I48.92 CHF (congestive heart failure), NYHA class III I50.20 Congestive heart failure chronicity: unspecified Congestive heart failure type: systolic Peritoneal dialysis catheter in situ Z99.2 End-stage liver disease K72.90 Alcoholic cirrhosis of liver with ascites K70.31 ETOH abuse F10.10 Documented by User: Max Goodson MD 05/30/21 18:15 Data : 05/30/21 05:00 05/30/21 05:00 Attestations Medical Necessity Statement*: Continue admission for treatment of peritonitis following removal of Tenckhoff catheter, de-escalation of antibiotic therapy, discharge planning and arrangements. Other Attestations: Patient seen and examined independently. Discussed his condition and findings with medical student. Reports after removal of the catheter today he is feeling quite significantly better. Cramping in his abdomen gone. Abdominal discomfort overall significantly improved. Discussed with him continuation of therapy with levofloxacin. Discussed the possibility that the stenotrophomonas is not the pathogen, but other pathogen may be present. Ofloxacin should target the stenotrophomonas as well. Discussed oral therapy. Will stop Primaxin. If continues to do well may be able to discharge tomorrow. Sodium continues to gradually improve. Up to 124 currently. Discussed with him and with case management also. We are working [facility] due to loss of ADLs, immobilization. He is in agreement with the plan of action. PE GEN: Awake, alert, reclined in chair, reports feeling well. Much better than before. Denies any complaints. Conversant. HEENT: NC, AT, PERRL, MMM Neck: No JVD Card: RRR, no murmur Lung: CTAB Abdomen: Incisions following removal of Tenckhoff catheter and lower incision to allow for the removal appear clean, no discharge, no bleeding. Skin: Some bruising noted. No rash. 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
[2021-05-30] MEDS: FUROsemide 40 mg Tablet PO (10:43)
[2021-05-30] MEDS: folic acid 1 mg Tablet PO (10:43)
--- NOTE | 2021-05-30 12:51 | P.PN_ITS ---
Subjective Subjective: Interval history: Patient overall feels better Medications: Reviewed: Yes Vitals/I&O/Wt Last Vital Signs Temp 98.1 F 05/30/21 11:50 Pulse 83 05/30/21 11:50 Resp 20 H 05/30/21 11:50 BP 120/60 05/30/21 11:50 Pulse Ox 97 05/30/21 11:50 05/29/21 05/30/21 05/30/21 22:59 06:59 14:59 Intake Total 100 / 200 680 / 880 901.5 / 901.5 Output Total 155 / 255 Balance -55 / -55 680 / 625 901.5 / 901.5 Weight last 48 hrs Weight 297 lb 4 oz Weight 299 lb Physical Exam Narrative: EXAM NARRATIVE: Patient is conscious alert oriented X3 BMI 40 Head and neck examination PERRLA no masses no cervical lymphadenopathy no jaundice Abdomen nontender moderately distended soft no organomegaly guarding or rigidity/no signs of peritonitis Incisions are clean dry and intact and skin jerrod in place Data : 05/30/21 05:00 05/30/21 05:00 Micro: Microbiology 05/29/21 12:45 Body Fluid Culture - Preliminary Peritoneal Fluid 05/24/21 19:59 Blood Culture - Final Blood NO GROWTH AFTER 5 DAYS 05/24/21 19:36 Blood Culture - Final Blood NO GROWTH AFTER 5 DAYS 05/25/21 00:45 Gram Stain - Final Abdomen Abscess Culture - Final 05/26/21 10:12 Gram Stain - Final Peritoneal Fluid Body Fluid Culture - Preliminary 05/25/21 22:00 Gram Stain - Final Peritoneal Fluid Body Fluid Culture - Final Stenotrophomonas maltophilia A&P Assessment and plan (1) Peritonitis: Assessment 56 years old gentleman status post explantation of PD catheter 05/29/2021 Plan DC dressing Skin jerrod to be removed 10 days postoperatively Patient can shower Avoid heavy lifting Assurance and education All questions have been answered and all concerns have been addressed to patient's satisfaction. Status: Resolved Attestations Medical Necessity Statement*: Per admitting service Time Spent in Patient Care: (>than 50% of time spent in counselling and/or direct pt care on unit) . 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
[2021-05-30] MEDS: alfuzosin 10 mg ER Tablet PO (14:54)
--- NOTE | 2021-05-30 15:34 | PM.PN ---
Subjective Subjective: Interval history: Mr. Soto has no new issues today. He does feel somewhat cranky after not eating the food that he wants to eat. Abdominal discomfort is significantly improved. Has mild lower extremity edema but this not severe. Otherwise no new complaints. Medications: Reviewed: Yes Medication Review Details: Current Medications Hydrocodone Bitart/Acetaminophen (Hydrocodone-Acetaminophen 5-325 Mg Tablet) 1 tab PO Q8H PRN PRN Reason: MODERATE TO SEVERE PAIN Last Admin: 05/28/21 22:45 Dose: 1 tab Documented by: Alfuzosin HCl (Alfuzosin 10 Mg Er Tablet) 10 mg PO DAILY@13 [facility] Last Admin: 05/28/21 13:42 Dose: 10 mg Documented by: Artificial Tears (Artificial Tears Op Soln 15 Ml Btl) 1 drop EYE-BOTH Q4H PRN PRN Reason: DRY EYE(S) Last Admin: 05/27/21 05:45 Dose: 1 drop Documented by: Diltiazem HCl (Diltiazem Er (24hr) 120 Mg Capsule) 120 mg PO QAM [facility] Last Admin: 05/29/21 05:08 Dose: 120 mg Documented by: Ferrous Sulfate (Ferrous Sulfate Ec 325 Mg Tablet) 325 mg PO DAILY [facility] Last Admin: 05/28/21 08:42 Dose: 325 mg Documented by: Folic Acid (Folic Acid 1 Mg Tablet) 1 mg PO DAILY@10 [facility] Last Admin: 05/28/21 08:32 Dose: 1 mg Documented by: Imipenem/Cilastatin Sodium 250 (mg/ Sodium Chloride) 100 mls @ 200 mls/hr IV Q6H [facility]; Protocol Last Infusion: 05/29/21 04:49 Dose: Infused Documented by: Lactulose (Lactulose Oral Liq 20 Gm/30 Ml Udc) 20 gm PO TID PRN PRN Reason: SEE PHARMACY COMMENTS Last Admin: 05/28/21 14:30 Dose: 20 gm Documented by: Levofloxacin (Levofloxacin 500 Mg Tablet) 500 mg PO Q48H [facility]; Protocol Stop: 06/12/21 14:29 Midodrine (Midodrine 5 Mg Tablet) 10 mg PO TID [facility] Last Admin: 05/28/21 21:01 Dose: 10 mg Documented by: Nystatin (Nystatin Cream 30 Gm) 1 applic TOPICAL BID [facility] Last Admin: 05/28/21 20:06 Dose: 1 applic Documented by: Ondansetron HCl (Ondansetron 2 Mg/Ml Sdv 2 Ml) 4 mg IVP Q6H PRN PRN Reason: NAUSEA AND VOMITING Last Admin: 05/28/21 03:11 Dose: 4 mg Documented by: Pantoprazole Sodium (Pantoprazole Dr 40 Mg Tablet) 40 mg PO BID [facility] Last Admin: 05/28/21 19:05 Dose: 40 mg Documented by: Fluticasone/Salmeterol (Fluticasone-Salmeterol 250-50 Diskus) 1 puff INHALATION BID.RESPIRATORY DHAVAL Last Admin: 05/28/21 20:25 Dose: 1 puff Documented by: Sodium Chloride (Sodium Chloride 1 Gm Tablet) 2 gm PO TID [facility] Last Admin: 05/28/21 21:01 Dose: 2 gm Documented by: Sucralfate (Sucralfate 1 Gm/10 Ml Oral Liq Udc) 1 gm PO AC&BEDTIME [facility]AVAL Last Admin: 05/29/21 05:08 Dose: 1 gm Documented by: Thiamine Mononitrate (Thiamine 100 Mg Tablet) 250 mg PO QAM [facility] Last Admin: 05/29/21 05:08 Dose: 250 mg Documented by: Vitals/I&O/Wt Last Vital Signs Temp 98.1 F 05/30/21 11:50 Pulse 83 05/30/21 11:50 Resp 20 H 05/30/21 11:50 BP 120/60 05/30/21 11:50 Pulse Ox 97 05/30/21 11:50 05/30/21 05/30/21 05/30/21 06:59 14:59 22:59 Intake Total 680 / 880 901.5 / 901.5 Balance 680 / 625 901.5 / 901.5 Weight last 48 hrs Weight 134.83 kg Weight 135.624 kg Physical Exam Narrative: EXAM NARRATIVE: Constitutional: Awake, comfortable HEENT: Wet mucosa, no jvp, non icteric Lungs: Bilaterally clear without discernible wheeze, rales in all lung zones CVS: S1 S2, no murmurs Abdo: Soft, BS ok, PD exit site looks good Ext 4: 1+ edema, peripheral perfusion with no cyanosis Neurological: Grossly non-focal Data : 05/30/21 05:00 05/30/21 05:00 Micro: Microbiology 05/29/21 12:45 Gram Stain - Final Peritoneal Fluid Body Fluid Culture - Preliminary Gram Negative Rods 05/29/21 15:31 Gram Stain - Final Abdomen 05/26/21 10:12 Gram Stain - Final Peritoneal Fluid Body Fluid Culture - Final Stenotrophomonas maltophilia 05/24/21 19:59 Blood Culture - Final Blood NO GROWTH AFTER 5 DAYS 05/24/21 19:36 Blood Culture - Final Blood NO GROWTH AFTER 5 DAYS 05/25/21 00:45 Gram Stain - Final Abdomen Abscess Culture - Final 05/25/21 22:00 Gram Stain - Final Peritoneal Fluid Body Fluid Culture - Final Stenotrophomonas maltophilia A&P Additional A&P Information 1. Acute kidney injury Likely to be prerenal in nature, urine sodium 31, urine creatinine 30, although this is nondiagnostic given his recent exposure to diuretics. Could be hepatorenal physiology also present. Renal function is relatively stable. Daily renal panel, strict I's and O's Avoid usual nephrotoxic agents. 2. Peritonitis Stenotrophomonas growing in peritoneal fluid. Catheter now out. He is currently on Primaxin and Levaquin. 3. Chemistry This is likely consequence of diuretic therapy as well as potassium supplementation. 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
[2021-05-31] VITALS (12 sets, daily range): BP systolic 100–118; BP diastolic 60–74; PULSE 77–122; RESP 15–18; TEMP 36.4–37; O2SAT 92–99
[2021-05-31 05:28] LABS: Basophils % 0.5 %; Eosinophils # 0.1 10^3/uL (0.0-0.8); Eosinophils % 1.7 %; Hematocrit 25.1 % (42.0-52.0); Hemoglobin 8.2 g/dL (11.7-16.6); Lymphocytes # 0.6 10^3/uL (0.8-4.8); Mean Corpuscular HGB Conc 32.7 g/dL (30.0-36.0); Mean Corpuscular Hemoglobin 30.4 pg (28.0-34.0); Mean Platelet Volume 9.4 fL (7.4-10.4); Monocytes % 12.6 %; Neutrophils # 6.42 10^3/uL (1.8-7.7); Neutrophils % 77.5 %; Nucleated Red Blood Cells % 0 %; Platelet Count 139 10^3/cmm (130-400); Red Cell Distribution Width 14.9 % (12.1-15.1); White Blood Count 8.3 10^3/uL (4.0-10.0)
[2021-05-31] MEDS: sucralfate 1 gm/10 mL Oral Liq UDC PO ×4 (06:15→21:39)
[2021-05-31] MEDS: dilTIAZem ER (24HR) 120 mg Capsule PO (06:15)
[2021-05-31] MEDS: thiamine 100 mg Tablet 250 MG PO (06:15)
[2021-05-31] MEDS: HYDROcodone-acetaminophen 5-325 mg Tablet 1 TAB PO ×2 (06:21→23:26)
[2021-05-31] MEDS: pantoprazole DR 40 mg Tablet PO ×2 (08:31→17:34)
[2021-05-31] MEDS: sodium chloride 1 gm Tablet 2 GM PO ×3 (08:31→21:40)
[2021-05-31] MEDS: ferrous sulfate EC 325 mg Tablet PO (08:31)
[2021-05-31] MEDS: nystatin cream 30 gm 1 APPLIC TOPICAL (08:31)
[2021-05-31] MEDS: midodrine 5 mg TABLET 10 MG PO ×3 (08:31→21:39)
[2021-05-31] MEDS: folic acid 1 mg Tablet PO (08:31)
[2021-05-31 12:10] LABS: Alanine Aminotransferase 8 U/L (0-41); Albumin Level 2.1 g/dL (3.5-5.2); Alkaline Phosphatase 91 IU/L (40-130); Aspartate Amino Transferase 19 U/L (0-40); Blood Urea Nitrogen 26 mg/dL (6-20); Calcium 7.2 mg/dL (8.5-10.5); Carbon Dioxide 22 mmol/L (22-29); Chloride 93 mmol/L (98-107); Globulin 2.3 g/dL (1.3-4.6); Glomerular Filtration Rate 32.7 mL/min (90-130); Glucose 96 mg/dL (65-115); Osmolality Calculated 263 mOsm/kg (285-295); Sodium 124 mmol/L (136-145); Total Bilirubin 0.7 mg/dL (0.15-1.2); Total Protein 4.4 g/dL (6.6-8.7)
--- NOTE | 2021-05-31 12:11 | P.PN_ITS ---
Subjective Subjective: Interval history: States that he had a great day yesterday, but after sitting in a chair for a while he had to have assistance to transfer back to bed. Today he is feeling a bit weaker. Breathing is okay. Denies chest pain or pressure. No severe abdominal pain. Vitals/I&O/Wt Last Vital Signs Temp 98.5 F 05/31/21 07:53 Pulse 89 05/31/21 08:22 Resp 18 05/31/21 08:22 BP 103/60 05/31/21 07:53 Pulse Ox 96 05/31/21 08:22 05/30/21 05/31/21 05/31/21 22:59 06:59 14:59 Intake Total 340 / 1241.5 240 / 1481.5 240 / 240 Output Total 300 / 300 360 / 660 Balance 40 / 941.5 -120 / 821.5 240 / 240 Weight last 48 hrs Weight 163.293 kg Weight 134.83 kg Physical Exam Const: COMMON NORMALS: no acute distress and patient oriented x3 GENERAL APPEARANCE: cooperative NUTRITIONAL APPEARANCE: obese ORIENTATION/CONSCIOUSNESS: Yes awake HENMT: COMMON NORMALS: oropharynx normal Neck/C-Spine: COMMON NORMALS: no JVD Resp: COMMON NORMALS: normal respiratory effort and clear to auscultation bilaterally AUSCULTATION: clear to auscultation bilaterally Cardio: COMMON NORMALS: no JVD, regular rhythm, S1 normal heart sound present, S2 normal heart sound present and No murmurs present (Cardio) RHYTHM: regular rhythm HEART SOUNDS: S1 normal heart sound present and S2 normal heart sound present GI: COMMON NORMALS: Normal to inspection, nondistended, normoactive bowel so unds present and Soft to palpation PALPATION: Yes Soft to palpation and Yes Tenderness to palpation present (GI) (mild) Extremity: COMMON NORMALS: no joint enlargement and no pedal edema Neuro: COMMON NORMALS: patient oriented x3 and moves all extremities Skin: COMMON NORMALS: no rashes or lesions noted GENERAL SKIN EXAM: no rashes or lesions noted Data : 05/31/21 04:43 05/31/21 04:43 Micro: Microbiology 05/29/21 15:31 Gram Stain - Final Abdomen Wound Culture - Preliminary 05/29/21 16:20 Gram Stain - Final Sputum - Expectorated Sputum Sputum Culture - Preliminary 05/29/21 12:45 Gram Stain - Final Peritoneal Fluid Body Fluid Culture - Preliminary Gram Negative Rods 05/26/21 10:12 Gram Stain - Final Peritoneal Fluid Body Fluid Culture - Final Stenotrophomonas maltophilia A&P Assessment and plan (1) Peritonitis: Follow-up additional culture from 05/29. Growing gram-negative rods. Prior culture 05/26 with stenotrophomonas. Continue Levaquin. Mild episodes of tachycardia, although he has been upset about his diet recently. Monitor for development of sepsis. Stenotrophomonas again growing in culture from 05/25. Overall would suspect this may likely be colonizer of the catheter itself. Would suspect peritonitis may be polymicrobial, although in rare cases may be caused by stenotrophomonas. Otherwise follow-up there in progress culture with gram-negative rods. Catheter removed 05/29. Continue antibiotics. Reasonable to cover with Levaquin which should cover stenotrophomonas as well. He overall would like to have the catheter replaced at some point, although there has been discussion regarding TIPS as well, although it appears this discussion has been going on for quite a while without successful reassessment by GI of the patient. Appears she is not actually making it to see GI. Stenotrophomonas, previously Klebsiella, Enterococcus He is quite deconditioned also, having issues transferring from chair to bed last night. Case management continues to work on options for him to be able to continue rehabilitation after discharge. Status: Resolved (2) Acute hyponatremia: Continue salt tablets, water restriction. Status: Acute (3) Upper gastrointestinal hemorrhage due to gastritis: Status post EGD with findings of esophagitis, gastritis, Duodenal ulcer noted with active oozing. Injected. PPI, sucralfate. Status: Acute (4) Anemia: Status: Acute (5) Hyperkalemia: Resolved. Status: Acute (6) Hepatorenal syndrome: Status: Acute (7) Atrial fibrillation and flutter: Status: Acute (8) CHF (congestive heart failure), NYHA class III: EF of 40 to 45% Status: Acute Qualifiers: Congestive heart failure type: systolic Congestive heart failure chronicity: unspecified Qualified Code(s): I50.20 - Unspecified systolic (congestive) heart failure (9) Peritoneal dialysis catheter in situ: Status: Acute (10) End-stage liver disease: Status: Acute (11) Alcoholic cirrhosis of liver with ascites: Status: Acute (12) ETOH abuse: Status: Acute Additional A&P Information Charcot deformities of feet: It has been relayed to me he has not been ambulatory for a while according to his mother. Attestations Medical Necessity Statement*: Continue admission for assessment of management of bacterial peritonitis following removal of Tenckhoff catheter, microbiologic identification, disposition planning and arrangements for additional rehabilitation. 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
[2021-05-31] MEDS: FUROsemide 40 mg Tablet 60 MG PO (12:12)
[2021-05-31] MEDS: alfuzosin 10 mg ER Tablet PO (12:12)
[2021-05-31 12:13] LABS: Anion Gap 13.7 (5-19); Potassium 4.7 mmol/L (3.5-5.1)
[2021-05-31] MEDS: levoFLOXacin 500 mg Tablet PO (14:30)
--- NOTE | 2021-05-31 17:14 | PC.NURSE ---
DOCUMENTED ON WRONG PT!
[2021-05-31] MEDS: nystatin 100,000 unit/mL UDC 5 mL 500000 UNIT PO ×2 (17:34→21:39)
--- NOTE | 2021-05-31 20:01 | P.PN_ITS ---
Subjective Subjective: Interval history: feels better, requesting regular diet (no K restriction), also requesting resumption of diuretics Medications: Reviewed: Yes Vitals/I&O/Wt Last Vital Signs Temp 98.3 F 05/31/21 17:17 Pulse 96 05/31/21 17:17 Resp 18 05/31/21 17:17 BP 101/68 05/31/21 17:17 Pulse Ox 99 05/31/21 17:17 05/31/21 05/31/21 05/31/21 06:59 14:59 22:59 Intake Total 240 / 1481.5 480 / 480 Output Total 360 / 660 250 / 250 Balance -120 / 821.5 480 / 480 -250 / 230 Weight last 48 hrs Weight 163.293 kg Weight 134.83 kg Physical Exam Const: COMMON NORMALS: no acute distress GENERAL APPEARANCE: cooperative Extremity: GENERAL: Yes edema Data : 05/31/21 04:43 05/31/21 04:43 Micro: Microbiology 05/29/21 12:45 Gram Stain - Final Peritoneal Fluid Body Fluid Culture - Final Stenotrophomonas maltophilia 05/29/21 15:31 Gram Stain - Final Abdomen Wound Culture - Preliminary 05/29/21 16:20 Gram Stain - Final Sputum - Expectorated Sputum Sputum Culture - Preliminary A&P Additional A&P Information 1. Chronic HRS, chronic hyponatremia 2. Peritonitis s/p removal peritoneal catheter 3. Anemia, iron replete 4. Chronic hypotension, taking midodrine Rec; Continue furosemide 60 mg daily, resume low dose spironolactone 25 mg daily. 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
[2021-05-31] MEDS: alum-mag-hydroxide-sime 30 mL UDC 15 ML PO (21:39)
[2021-05-31] MEDS: ondansetron 2 mg/ML SDV 2 mL 4 MG IVP (22:49)
[2021-06-01] VITALS (11 sets, daily range): BP systolic 97–109; BP diastolic 60–73; PULSE 56–113; RESP 14–18; TEMP 36.7–36.9; O2SAT 93–98
[2021-06-01] MEDS: alum-mag-hydroxide-sime 30 mL UDC 15 ML PO (03:55)
[2021-06-01 05:17] LABS: Basophils % 0.4 %; Eosinophils # 0.1 10^3/uL (0.0-0.8); Eosinophils % 1.4 %; Hematocrit 25.1 % (42.0-52.0); Hemoglobin 8.3 g/dL (11.7-16.6); Lymphocytes # 0.6 10^3/uL (0.8-4.8); Mean Corpuscular HGB Conc 33.1 g/dL (30.0-36.0); Mean Corpuscular Hemoglobin 30.7 pg (28.0-34.0); Mean Platelet Volume 9.6 fL (7.4-10.4); Monocytes # 1.1 10^3/uL (0.2-0.9); Monocytes % 13.1 %; Neutrophils # 6.22 10^3/uL (1.8-7.7); Neutrophils % 77.2 %; Nucleated Red Blood Cells % 0 %; Platelet Count 144 10^3/cmm (130-400)
[2021-06-01 05:37] LABS: Anion Gap 13.8 (5-19); Blood Urea Nitrogen 30 mg/dL (6-20); Calcium 7.7 mg/dL (8.5-10.5); Carbon Dioxide 22 mmol/L (22-29); Chloride 94 mmol/L (98-107); Glomerular Filtration Rate 34.6 mL/min (90-130); Glucose 74 mg/dL (65-115); Osmolality Calculated 265 mOsm/kg (285-295); Potassium 4.8 mmol/L (3.5-5.1); Sodium 125 mmol/L (136-145)
[2021-06-01 05:38] LABS: Creatinine Clr Calc Pharmacy 64.4848
[2021-06-01] MEDS: sucralfate 1 gm/10 mL Oral Liq UDC PO ×4 (06:05→20:17)
[2021-06-01] MEDS: thiamine 100 mg Tablet 250 MG PO (06:06)
[2021-06-01] MEDS: dilTIAZem ER (24HR) 120 mg Capsule PO (06:06)
[2021-06-01] MEDS: morphine 4 mg/mL SDV 1 mL 2 MG IVP (08:02)
--- NOTE | 2021-06-01 09:00 | P.PN_ITS ---
Subjective Subjective: Interval history: This morning he feels like there is a food bolus stuck in his upper GI tract. He has been trying to cough it up, but so far no luck. He describes he feels similar to how his father was feeling due to his hiatal hernia, although states that usually he himself has had no issues getting rid of food that felt like it was not moving. But not this morning. Vitals/I&O/Wt Last Vital Signs Temp 98.2 F 06/01/21 07:11 Pulse 91 06/01/21 07:55 Resp 14 06/01/21 08:02 BP 103/67 06/01/21 07:11 Pulse Ox 93 06/01/21 07:55 05/31/21 06/01/21 06/01/21 22:59 06:59 14:59 Output Total 250 / 250 650 / 900 280 / 280 Balance -250 / 230 -650 / -420 -280 / -280 Weight last 48 hrs Weight 163.293 kg Weight 163.293 kg Physical Exam Const: COMMON NORMALS: no acute distress and patient oriented x3 GENERAL APPEARANCE: cooperative NUTRITIONAL APPEARANCE: obese ORIENTATION/CONSCIOUSNESS: Yes awake HENMT: COMMON NORMALS: oropharynx normal Neck/C-Spine: COMMON NORMALS: no JVD Resp: COMMON NORMALS: normal respiratory effort and clear to auscultation bilaterally AUSCULTATION: clear to auscultation bilaterally Cardio: COMMON NORMALS: no JVD, regular rhythm, S1 normal heart sound present, S2 normal heart sound present and No murmurs present (Cardio) RHYTHM: regular rhythm HEART SOUNDS: S1 normal heart sound present and S2 normal heart sound present GI: COMMON NORMALS: Normal to inspection, nondistended, normoactive bowel sounds present and Soft to palpation PALPATION: Yes Soft to palpation and Yes Tenderness to palpation present (GI) (mild) Extremity: COMMON NORMALS: no joint enlargement and no pedal edema Neuro: COMMON NORMALS: patient oriented x3 and moves all extremities Skin: COMMON NORMALS: no rashes or lesions noted GENERAL SKIN EXAM: no rashes or lesions noted Data : 06/01/21 04:08 06/01/21 04:08 Micro: Microbiology 05/29/21 12:45 Gram Stain - Final Peritoneal Fluid Body Fluid Culture - Final Stenotrophomonas maltophilia 05/29/21 15:31 Gram Stain - Final Abdomen Wound Culture - Preliminary 05/29/21 16:20 Gram Stain - Final Sputum - Expectorated Sputum Sputum Culture - Preliminary A&P Assessment and plan (1) Peritonitis: States that today he is doing worse. He is nauseated, with food that feels like it is not moving in his upper GI tract. Feels weaker than yesterday. Discussed with him and requested Reglan. Otherwise he is afebrile, without leukocytosis, without signs of sepsis. Continue to biotic coverage with Levaquin for peritonitis. Cultures from this admission repeatedly growing stenotrophomonas including on catheter tip culture. Overall would suspect this may likely be colonizer of the catheter itself. Would suspect peritonitis may be polymicrobial, although in rare cases may be caused by stenotrophomonas. Catheter removed 05/29. Continue antibiotics. Reasonable to cover with Levaquin which should cover stenotrophomonas as well. He overall would like to have the catheter replaced at some point, although there has been discussion regarding TIPS as well, although it appears this discussion has been going on for quite a while without successful reassessment by GI of the patient. Appears she is not actually making it to see GI. Stenotrophomonas currently, previously Klebsiella, Enterococcus He is quite deconditioned also, having issues transferring from chair to bed last night. Case management continues to work on options for him to be able to continue rehabilitation after discharge. Status: Resolved (2) Acute hyponatremia: Continue salt tablets, water restriction. Status: Acute (3) Upper gastrointestinal hemorrhage due to gastritis: Status post EGD with findings of esophagitis, gastritis, Duodenal ulcer noted with active oozing. Injected. PPI, sucralfate. Status: Acute (4) Anemia: Status: Acute (5) Hyperkalemia: Resolved. Status: Acute (6) Hepatorenal syndrome: Status: Acute (7) Atrial fibrillation and flutter: Status: Acute (8) CHF (congestive heart failure), NYHA class III: EF of 40 to 45% Status: Acute Qualifiers: Congestive heart failure type: systolic Congestive heart failure chronicity: unspecified Qualified Code(s): I50.20 - Unspecified systolic (congestive) heart failure (9) Peritoneal dialysis catheter in situ: Status: Acute (10) End-stage liver disease: Status: Acute (11) Alcoholic cirrhosis of liver with ascites: Status: Acute (12) ETOH abuse: Status: Acute Additional A&P Information Charcot deformities of feet: It has been relayed to me he has not been am bulatory for a while according to his mother. Attestations Medical Necessity Statement*: Continue admission for cyst management of peritonitis, hyponatremia, as well as disposition planning and arrangements for additional rehabilitation due to significant deconditioning, immobility. Coding Level of Care Code Acute Price Economist for [facility] Fwd Diagnoses Peritonitis K65.9 Acute hyponatremia E87.1 Upper gastrointestinal hemorrhage due to gastritis K29.71 Anemia D64.9 Hyperkalemia E87.5 Hepatorenal syndrome K76.7 Atrial fibrillation and flutter I48.91; I48.92 CHF (congestive heart failure), NYHA class III I50.20 Congestive heart failure type: systolic Congestive heart failure chronicity: unspecified Peritoneal dialysis catheter in situ Z99.2 End-stage liver disease K72.90 Alcoholic cirrhosis of liver with ascites K70.31 ETOH abuse F10.10
[2021-06-01] MEDS: ferrous sulfate EC 325 mg Tablet PO (09:54)
[2021-06-01] MEDS: folic acid 1 mg Tablet PO (09:54)
[2021-06-01] MEDS: midodrine 5 mg TABLET 10 MG PO ×3 (09:54→20:17)
[2021-06-01] MEDS: sodium chloride 1 gm Tablet 2 GM PO ×3 (09:55→20:18)
[2021-06-01] MEDS: pantoprazole DR 40 mg Tablet PO ×2 (09:55→17:00)
[2021-06-01] MEDS: spironolactone 25 mg Tablet PO (09:55)
[2021-06-01] MEDS: metoclopramide 5 mg/mL SDV 2 mL IVP (09:55)
[2021-06-01] MEDS: FUROsemide 40 mg Tablet 60 MG PO (09:55)
[2021-06-01] MEDS: diphenhydrAMINE 50 mg/mL SDV 1mL 12.5 MG IVP (09:57)
[2021-06-01] MEDS: nystatin 100,000 unit/mL UDC 5 mL 500000 UNIT PO ×4 (09:58→20:17)
[2021-06-01] MEDS: nystatin cream 30 gm 1 APPLIC TOPICAL ×2 (09:59→17:00)
--- NOTE | 2021-06-01 10:41 | PM.PN ---
Subjective Subjective: Interval history: No new issues. Some issues swallowing. Mild LE edema remains stable. No belly pain Passing urine comfortably Medications: Reviewed: Yes Medication Review Details: Current Medications Hydrocodone Bitart/Acetaminophen (Hydrocodone-Acetaminophen 5-325 Mg Tablet) 1 tab PO Q8H PRN PRN Reason: MODERATE TO SEVERE PAIN Last Admin: 05/28/21 22:45 Dose: 1 tab Documented by: Alfuzosin HCl (Alfuzosin 10 Mg Er Tablet) 10 mg PO DAILY@13 [facility] Last Admin: 05/28/21 13:42 Dose: 10 mg Documented by: Artificial Tears (Artificial Tears Op Soln 15 Ml Btl) 1 drop EYE-BOTH Q4H PRN PRN Reason: DRY EYE(S) Last Admin: 05/27/21 05:45 Dose: 1 drop Documented by: Diltiazem HCl (Diltiazem Er (24hr) 120 Mg Capsule) 120 mg PO QAM [facility] Last Admin: 05/29/21 05:08 Dose: 120 mg Documented by: Ferrous Sulfate (Ferrous Sulfate Ec 325 Mg Tablet) 325 mg PO DAILY [facility] Last Admin: 05/28/21 08:42 Dose: 325 mg Documented by: Folic Acid (Folic Acid 1 Mg Tablet) 1 mg PO DAILY@10 [facility] Last Admin: 05/28/21 08:32 Dose: 1 mg Documented by: Imipenem/Cilastatin Sodium 250 (mg/ Sodium Chloride) 100 mls @ 200 mls/hr IV Q6H [facility]; Protocol Last Infusion: 05/29/21 04:49 Dose: Infused Documented by: Lactulose (Lactulose Oral Liq 20 Gm/30 Ml Udc) 20 gm PO TID PRN PRN Reason: SEE PHARMACY COMMENTS Last Admin: 05/28/21 14:30 Dose: 20 gm Documented by: Levofloxacin (Levofloxacin 500 Mg Tablet) 500 mg PO Q48H [facility]; Protocol Stop: 06/12/21 14:29 Midodrine (Midodrine 5 Mg Tablet) 10 mg PO TID [facility] Last Admin: 05/28/21 21:01 Dose: 10 mg Documented by: Nystatin (Nystatin Cream 30 Gm) 1 applic TOPICAL BID [facility] Last Admin: 05/28/21 20:06 Dose: 1 applic Documented by: Ondansetron HCl (Ondansetron 2 Mg/Ml Sdv 2 Ml) 4 mg IVP Q6H PRN PRN Reason: NAUSEA AND VOMITING Last Admin: 05/28/21 03:11 Dose: 4 mg Documented by: Pantoprazole Sodium (Pantoprazole Dr 40 Mg Tablet) 40 mg PO BID [facility] Last Admin: 05/28/21 19:05 Dose: 40 mg Documented by: Fluticasone/Salmeterol (Fluticasone-Salmeterol 250-50 Diskus) 1 puff INHALATION BID.RESPIRATORY [facility] Last Admin: 05/28/21 20:25 Dose: 1 puff Documented by: Sodium Chloride (Sodium Chloride 1 Gm Tablet) 2 gm PO TID [facility] Last Admin: 05/28/21 21:01 Dose: 2 gm Documented by: Sucralfate (Sucralfate 1 Gm/10 Ml Oral Liq Udc) 1 gm PO AC&BEDTIME [facility] Last Admin: 05/29/21 05:08 Dose: 1 gm Documented by: Thiamine Mononitrate (Thiamine 100 Mg Tablet) 250 mg PO QAM [facility] Last Admin: 05/29/21 05:08 Dose: 250 mg Documented by: Vitals/I&O/Wt Last Vital Signs Temp 98.2 F 06/01/21 07:11 Pulse 91 06/01/21 07:55 Resp 14 06/01/21 08:02 BP 103/67 06/01/21 07:11 Pulse Ox 93 06/01/21 07:55 05/31/21 06/01/21 06/01/21 22:59 06:59 14:59 Output Total 250 / 250 650 / 900 280 / 280 Balance -250 / 230 -650 / -420 -280 / -280 Weight last 48 hrs Weight 163.293 kg Weight 163.293 kg Physical Exam Narrative: EXAM NARRATIVE: Constitutional: Awake, comfortable HEENT: Wet mucosa, no jvp, non icteric Lungs: Bilaterally clear without discernible wheeze, rales in all lung zones CVS: S1 S2, no murmurs Abdo: Soft, BS ok, PD exit site looks good Ext 4: 1+ edema, peripheral perfusion with no cyanosis Neurological: Grossly non-focal Data : 06/01/21 04:08 06/01/21 04:08 Micro: Microbiology 05/29/21 15:31 Gram Stain - Final Abdomen Wound Culture - Preliminary 05/29/21 16:20 Gram Stain - Final Sputum - Expectorated Sputum Sputum Culture - Final 05/29/21 12:45 Gram Stain - Final Peritoneal Fluid Body Fluid Culture - Final Stenotrophomonas maltophilia A&P Additional A&P Information 1. Acute kidney injury Creatinine slowly imporving now Likely to be prerenal in nature, urine sodium 31, urine creatinine 30, although this is nondiagnostic given his recent exposure to diuretics. Could be hepatorenal physiology also present. Daily renal panel, strict I's and O's Avoid usual nephrotoxic agents. 2. Peritonitis Stenotrophomonas growing in peritoneal fluid. Catheter now out. He is currently on Primaxin and Levaquin. 3. Chemistry This is likely consequence of diuretic therapy as well as potassium supplementation. 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
--- NOTE | 2021-06-01 11:03 | PC.OT ---
OT NOTE: OT TREATMENT ATTEMPTED. PATIENT REPORTS THAT HE HAS A HIATAL HERNIA AND HIS FOOD HAS BEEN HUNG UP SINCE DINNER LAST NIGHT. REPORTS N/V SINCE THEN AND REQUESTS TO HOLD AT THIS TIME.
[2021-06-01] MEDS: alfuzosin 10 mg ER Tablet PO (13:56)
[2021-06-01] MEDS: HYDROcodone-acetaminophen 5-325 mg Tablet 1 TAB PO (14:09)
--- NOTE | 2021-06-01 14:46 | PC.NUTR ---
Nutrition reassessment: Recommend clarification of current weight, as weight record indicates a significant upward trend, including 61 lbs gained over past 3 days. Also recommend SALES FORCE DEVELOPER evaluation d/t c/o swallowing difficulty. Noted that Ensure was added to diet order today, however unable to locate rationale per EMR, as po intakes appear fair to good and weight trending up significantly (possibly, if accurate). See full RD assessment for further details.
--- NOTE | 2021-06-01 15:13 | PC.CHAP ---
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 crown ironer operator visit [] Patient/Family/Request visit [] Outpatient visit [xx] Follow-up visit [] Physician referral [] Code/Alert [xx] Routine visit [] Staff referral [] Actively dying [] Patient sleeping [] Family support [] [] Out of room [] Palliative care [] [] Receiving care in room [] Pre-surgical visit [] Trauma [xx] Long length of stay [] ICU visit [] Other: Relational/Emotional Strength [xx] Patient feels connected with others/family/visitors/staff [] Distress [] Loneliness/isolation [] Abandonment Spirituality of Patient [xx] Person of Jana [xx] Attends Scientology of their Jana [xx] Believes in Prayer [xx] Reads Bible or Restorationist materials [] There are Spiritual issues to be addressed Structural Steel Painter Interventions [xx] Prayer [xx] Active listening [xx] Non-anxious presence [] Spiritual/emotional support [] Crisis/trauma care [] Spiritual counseling [] Bereavement support [] Provided bereavement packet [xx] Provided Bible/devotional materials [] Provided toy/stuffed animal, coloring book to patient or family member [] Provided Communion [] Anointing/[place] [] Salvation [xx] Completed spiritual assessment [] Other: Impact on Illness or Injury [] Angry [] Fearful [] Anxious [] Often cries [] Exhaustion [] Unable to work [] Unable to attend presybeterian [] Unable to walk/stand [] Unable to read [] Unable to drive [] Unable to eat/drink [] Unable to sleep [] Unable to be with family [] Patient intubated [] Other: Summary Patient feeling better. He is concerned about wayward daughter who won't talk to him. She turned 20 today but refuses to visit him. We discussed possible ways of communication. Structural Steel Painter suggested he send a basic greeting card with just a couple lines of text to her to break the ice. The text should be simple, nonjudgmental and encouraging without any form of blame. He likes the idea and said he would start with a belated birthday card with a financial gift in it. As was leaving, his mother called and they discussed doing exactly that. Time spent with patient 17 minutes
[2021-06-02] VITALS (10 sets, daily range): BP systolic 92–99; BP diastolic 53–64; PULSE 78–114; RESP 14–18; TEMP 36.7–37; O2SAT 93–98; BMI 41.6
[2021-06-02 05:13] LABS: Basophils # 0.1 10^3/uL (0.0-0.1); Eosinophils # 0.2 10^3/uL (0.0-0.8); Eosinophils % 2.1 %; Hemoglobin 7.4 g/dL (11.7-16.6); Lymphocytes # 0.7 10^3/uL (0.8-4.8); Lymphocytes % 9.5 %; Mean Corpuscular HGB Conc 32.2 g/dL (30.0-36.0); Mean Corpuscular Volume 96.2 fl (80-94); Mean Platelet Volume 9.4 fL (7.4-10.4); Monocytes # 1.1 10^3/uL (0.2-0.9); Monocytes % 15.4 %; Neutrophils # 5.04 10^3/uL (1.8-7.7); Neutrophils % 71.3 %; Nucleated Red Blood Cells % 0 %; Platelet Count 143 10^3/cmm (130-400); Red Blood Count 2.39 10^6/uL (4.1-5.3); White Blood Count 7.1 10^3/uL (4.0-10.0)
[2021-06-02 05:34] LABS: Blood Urea Nitrogen 27 mg/dL (6-20); Calcium 7.6 mg/dL (8.5-10.5); Carbon Dioxide 22 mmol/L (22-29); Chloride 95 mmol/L (98-107); Glomerular Filtration Rate 41.8 mL/min (90-130); Glucose 98 mg/dL (65-115); Osmolality Calculated 263 mOsm/kg (285-295); Sodium 124 mmol/L (136-145)
[2021-06-02] MEDS: sucralfate 1 gm/10 mL Oral Liq UDC PO ×4 (06:06→20:32)
[2021-06-02] MEDS: thiamine 100 mg Tablet 250 MG PO (06:07)
[2021-06-02] MEDS: dilTIAZem ER (24HR) 120 mg Capsule PO (06:08)
[2021-06-02] MEDS: ferrous sulfate EC 325 mg Tablet PO (08:01)
[2021-06-02] MEDS: FUROsemide 40 mg Tablet 60 MG PO (08:01)
[2021-06-02] MEDS: spironolactone 25 mg Tablet PO (08:01)
[2021-06-02] MEDS: nystatin 100,000 unit/mL UDC 5 mL 500000 UNIT PO ×4 (08:01→20:32)
[2021-06-02] MEDS: nystatin cream 30 gm 1 APPLIC TOPICAL ×2 (08:02→17:54)
[2021-06-02] MEDS: pantoprazole DR 40 mg Tablet PO ×2 (08:02→17:53)
[2021-06-02] MEDS: midodrine 5 mg TABLET 10 MG PO ×3 (08:02→20:32)
[2021-06-02] MEDS: folic acid 1 mg Tablet PO (08:03)
[2021-06-02] MEDS: HYDROcodone-acetaminophen 5-325 mg Tablet 1 TAB PO (08:03)
[2021-06-02] MEDS: sodium chloride 1 gm Tablet 2 GM PO ×3 (08:05→20:32)
--- NOTE | 2021-06-02 11:46 | PM.PN ---
Subjective Subjective: Interval history: Severe edema of lower extremities, today reports having difficulties getting to and from the commode. Edema up to and including thighs, lower belly. Reports incision wounds and jerrod are getting somewhat dry and sticky/itchy. He feels like he continues wanting to scratch them. Discussed with him not to put any lotions or creams over the incisions. Vitals/I&O/Wt Last Vital Signs Temp 98.1 F 06/02/21 11:27 Pulse 88 06/02/21 11:27 Resp 18 06/02/21 11:27 BP 99/64 06/02/21 11:27 Pulse Ox 94 06/02/21 11:27 06/01/21 06/02/21 06/02/21 22:59 06:59 14:59 Intake Total 480 / 960 650 / 1610 240 / 240 Output Total 710 / 990 320 / 1310 200 / 200 Balance -230 / -30 330 / 300 40 / 40 Weight last 48 hrs Weight 139.298 kg Weight 45.359 g Weight 163.293 kg Physical Exam Const: COMMON NORMALS: no acute distress, patient oriented x3 and alert GENERAL APPEARANCE: cooperative NUTRITIONAL APPEARANCE: obese ORIENTATION/CONSCIOUSNESS: Yes awake HENMT: COMMON NORMALS: oropharynx normal Neck/C-Spine: COMMON NORMALS: no JVD Resp: COMMON NORMALS: normal respiratory effort and clear to auscultation bilaterally AUSCULTATION: clear to auscultation bilaterally Cardio: COMMON NORMALS: no JVD, regular rhythm, S1 normal heart sound present, S2 normal heart sound present and No murmurs present (Cardio) RHYTHM: regular rhythm HEART SOUNDS: S1 normal heart sound present and S2 normal heart sound present GI: COMMON NORMALS: Normal to inspection, nondistended, normoactive bowel sounds present and Soft to palpation PALPATION: Yes Soft to palpation and Yes Tenderness to palpation present (GI) (mild) Extremity: COMMON NORMALS: no joint enlargement GENERAL: Yes edema (Anasarca, lower extremities, thighs, lower abdomen) Neuro: COMMON NORMALS: patient oriented x3 and moves all extremities SENSORIUM/ORIENTATION: Yes alert Skin: GENERAL SKIN EXAM: ecchymosis and Excoriation WOUNDS: Yes surgical site (Clean incisions, jerrod, no bleeding or drainage, mild bruising of sup inc) Data : 06/02/21 04:16 06/02/21 04:16 Micro: Microbiology 05/29/21 15:31 Gram Stain - Final Abdomen Wound Culture - Final 05/29/21 16:20 Gram Stain - Final Sputum - Expectorated Sputum Sputum Culture - Final A&P Assessment and plan (1) Anasarca: He is quite edematous, causing also significant difficulty for him to get around even just to and from the commode. Anasarca up to lower belly. Has been on oral Lasix, but appears is not absorbing the medication well. Continue to track I&O. Daily weights. We will change Lasix to IV formulation. Give 40 mg currently. Continue IV 40 daily for now. Monitor response. Hold spironolactone for now due to rising potassium. Monitor renal function. Blood pressures. Status: Acute (2) Anemia: Decrease in hemoglobin down to 7.4 today. No outward bleeding. Suspect dilutional secondary to continued accumulation of extra fluid, anasarca. Some decrease across all cell lines. Diuresis as above. Monitor for any signs of blood loss. Status: Acute (3) Peritonitis: Continue Levaquin for peritonitis. Cultures from this admission repeatedly growing stenotrophomonas including on catheter tip culture. Overall would suspect this may likely be colonizer of the catheter itself. Would suspect peritonitis may be polymicrobial, although in rare cases may be caused by stenotrophomonas. Catheter removed 05/29. Continue antibiotics. Reasonable to cover with Levaquin which should cover stenotrophomonas as well. He overall would like to have the catheter replaced at some point, although there has been discussion regarding TIPS as well, although it appears this discussion has been going on for quite a while without successful reassessment by GI of the patient. Appears she is not actually making it to see GI. Stenotrophomonas currently, previously Klebsiella, Enterococcus He is quite deconditioned also, having issues transferring from chair to bed last night. Case management continues to work on options for him to be able to continue rehabilitation after discharge. Status: Resolved (4) Acute hyponatremia: Continue salt tablets, water restriction. Status: Acute (5) Upper gastrointestinal hemorrhage due to gastritis: Status post EGD with findings of esophagitis, gastritis, Duodenal ulcer noted with active oozing. Injected. PPI, sucralfate. Status: Acute (6) Hyperkalemia: Resolved. Status: Acute (7) Hepatorenal syndrome: Status: Acute (8) Atrial fibrillation and flutter: Status: Acute (9) CHF (congestive heart failure), NYHA class III: EF of 40 to 45% Status: Acute Qualifiers: Congestive heart failure chronicity: unspecified Congestive heart failure type: systolic Qualified Code(s): I50.20 - Unspecified systolic (congestive) heart failure (10) Peritoneal dialysis catheter in situ: Status: Acute (11) End-stage liver disease: Status: Acute (12) Alcoholic cirrhosis of liver with ascites: Status: Acute (13) ETOH abuse: Status: Acute Additional A&P Information Charcot deformities of feet: It has been relayed to me he has not been ambulatory for a while according to his mother. Attestations Medical Necessity Statement*: Continue admission for management of anasarca, severe edema limiting transitions/ambulation. IV diuresis in the setting of chronic kidney disease, liver cirrhosis, soft blood pressures, hyponatremia. Needs monitoring, adjustment depending on response. Continue disposition planning, arrangements for rehabilitation due to generalized deconditioning, immobility. Coding Level of Care Code Acute Facilities Management Executive for g Fwd Exam Comprehensive Diagnoses Anasarca R60.1 Anemia D64.9 Peritonitis K65.9 Acute hyponatremia E87.1 Upper gastrointestinal hemorrhage due to gastritis K29.71 Hyperkalemia E87.5 Hepatorenal syndrome K76.7 Atrial fibrillation and flutter I48.91; I48.92 CHF (congestive heart failure), NYHA class III I50.20 Congestive heart failure chronicity: unspecified Congestive heart failure type: systolic Peritoneal dialysis catheter in situ Z99.2 End-stage liver disease K72.90 Alcoholic cirrhosis of liver with ascites K70.31 ETOH abuse F10.10
[2021-06-02] MEDS: alfuzosin 10 mg ER Tablet PO (11:48)
[2021-06-02] MEDS: lactulose oral liq 20 gm/30 mL UDC PO (11:48)
[2021-06-02] MEDS: levoFLOXacin 500 mg Tablet PO (15:56)
[2021-06-02] MEDS: FUROsemide 10 mg/mL SDV 4mL 40 MG IVP (15:57)
[2021-06-02] MEDS: neomycin-poly-bacitracin oint 0.9 gm Pkt 1 APPLIC TOPICAL (17:53)
[2021-06-03] VITALS (17 sets, daily range): BP systolic 90–115; BP diastolic 52–72; PULSE 78–112; RESP 16–18; TEMP 36.6–37.3; O2SAT 95–98
[2021-06-03] MEDS: ondansetron 2 mg/ML SDV 2 mL 4 MG IVP (02:43)
[2021-06-03] MEDS: HYDROcodone-acetaminophen 5-325 mg Tablet 1 TAB PO ×2 (02:43→12:59)
[2021-06-03 05:55] LABS: Basophils # 0.1 10^3/uL (0.0-0.1); Basophils % 0.9 %; Eosinophils # 0.1 10^3/uL (0.0-0.8); Eosinophils % 1.9 %; Lymphocytes # 0.6 10^3/uL (0.8-4.8); Lymphocytes % 8.5 %; Mean Corpuscular HGB Conc 31.8 g/dL (30.0-36.0); Mean Corpuscular Hemoglobin 30.6 pg (28.0-34.0); Mean Corpuscular Volume 96.1 fl (80-94); Mean Platelet Volume 9.7 fL (7.4-10.4); Monocytes # 1.3 10^3/uL (0.2-0.9); Monocytes % 18.4 %; Neutrophils # 4.76 10^3/uL (1.8-7.7); Neutrophils % 69.6 %; Nucleated Red Blood Cells % 0 %; Platelet Count 142 10^3/cmm (130-400); Red Blood Count 2.29 10^6/uL (4.1-5.3); Red Cell Distribution Width 15.4 % (12.1-15.1); White Blood Count 6.8 10^3/uL (4.0-10.0)
[2021-06-03] MEDS: thiamine 100 mg Tablet 250 MG PO (06:00)
[2021-06-03] MEDS: dilTIAZem ER (24HR) 120 mg Capsule PO (06:00)
[2021-06-03] MEDS: sucralfate 1 gm/10 mL Oral Liq UDC PO ×4 (06:00→20:02)
[2021-06-03 06:26] LABS: Anion Gap 12.7 (5-19); Blood Urea Nitrogen 30 mg/dL (6-20); Calcium 7.3 mg/dL (8.5-10.5); Carbon Dioxide 23 mmol/L (22-29); Chloride 94 mmol/L (98-107); Creatinine Clr Calc Pharmacy 0.0324; Glomerular Filtration Rate 44.8 mL/min (90-130); Glucose 99 mg/dL (65-115); Osmolality Calculated 266 mOsm/kg (285-295); Potassium 4.7 mmol/L (3.5-5.1); Sodium 125 mmol/L (136-145)
[2021-06-03] MEDS: folic acid 1 mg Tablet PO (08:19)
[2021-06-03] MEDS: midodrine 5 mg TABLET 10 MG PO ×3 (08:19→20:02)
[2021-06-03] MEDS: FUROsemide 10 mg/mL SDV 4mL 40 MG IVP (08:19)
[2021-06-03] MEDS: nystatin 100,000 unit/mL UDC 5 mL 500000 UNIT PO ×4 (08:19→20:02)
[2021-06-03] MEDS: sodium chloride 1 gm Tablet 2 GM PO ×3 (08:19→20:46)
[2021-06-03] MEDS: pantoprazole DR 40 mg Tablet PO ×2 (08:19→17:22)
[2021-06-03] MEDS: ferrous sulfate EC 325 mg Tablet PO (08:19)
--- NOTE | 2021-06-03 11:17 | P.PN_ITS ---
Subjective Subjective: Interval history: He is having quite a bit of edema in his legs, feet are swelling up more. Appears to be responding much better to IV diuretics compared to oral. Still, states his feet swelled like balloons . Discussed with him escalating diuretic therapy. Elevating lower extremities. Vitals/I&O/Wt Last Vital Signs Temp 97.8 F 06/03/21 08:19 Pulse 78 06/03/21 09:17 Resp 16 06/03/21 09:17 BP 93/53 06/03/21 08:19 Pulse Ox 96 06/03/21 09:17 06/02/21 06/03/21 06/03/21 22:59 06:59 14:59 Intake Total 740 / 980 580 / 1560 240 / 240 Output Total 400 / 600 1400 / 2000 850 / 850 Balance 340 / 380 -820 / -440 -610 / -610 Weight last 48 hrs Weight 139.298 kg Weight 45.359 g Physical Exam Const: COMMON NORMALS: no acute distress, patient oriented x3 and alert GENERAL APPEARANCE: cooperative NUTRITIONAL APPEARANCE: obese ORIENTATION/CONSCIOUSNESS: Yes awake OTHER: Sleeping, wakes up to voice. HENMT: COMMON NORMALS: oropharynx normal Neck/C-Spine: COMMON NORMALS: no JVD Resp: COMMON NORMALS: normal respiratory effort and clear to auscultation bilaterally AUSCULTATION: clear to auscultation bilaterally Cardio: COMMON NORMALS: no JVD, regular rhythm, S1 normal heart sound present, S2 normal heart sound present and No murmurs present (Cardio) RHYTHM: regular rhythm HEART SOUNDS: S1 normal heart sound present and S2 normal heart sound present GI: COMMON NORMALS: Normal to inspection, nondistended, normoactive bowel sounds present and Soft to palpation PALPATION: Yes Soft to palpation and Yes Tenderness to palpation present (GI) (mild) Extremity: COMMON NORMALS: no joint enlargement GENERAL: Yes edema (Anasarca 3+, lower extremities, thighs, lower abdomen) Neuro: COMMON NORMALS: patient oriented x3 and moves all extremities SENSORIUM/ORIENTATION: Yes alert Skin: GENERAL SKIN EXAM: ecchymosis and Excoriation Data : 06/03/21 04:40 06/03/21 04:40 Micro: Microbiology 05/29/21 15:31 Gram Stain - Final Abdomen Wound Culture - Final A&P Assessment and plan (1) Anasarca: Increase diuretic dose to 60 mg every 12 hours IV. Appears is not absorbing Lasix well due to edema. Fluid restriction. Spironolactone on hold due to hyperkalemia. Continue to track I&O. Daily weights. Monitor renal function. Blood pressures. Status: Acute (2) Anemia: Is not on blood thinner or antiplatelet. Continue PPI twice daily. Status post injected oozing duodenal ulcer. We will request 1 unit PRBC transfusion. Possible slow GI bleed combined with fluid overload. Status: Acute (3) Peritonitis: Continue Levaquin for peritonitis. Cultures from this admission repeatedly growing stenotrophomonas including on catheter tip culture. Overall would suspect this may likely be colonizer of the catheter itself. Would suspect peritonitis may be polymicrobial, although in rare cases may be caused by stenotrophomonas. Catheter removed 05/29. Continue antibiotics. Reasonable to cover with Levaquin which should cover stenotrophomonas as well. He overall would like to have the catheter replaced at some point, although there has been discussion regarding TIPS as well, although it appears this discussion has been going on for quite a while without successful reassessment by GI of the patient. Appears she is not actually making it to see GI. Stenotrophomonas currently, previously Klebsiella, Enterococcus He is quite deconditioned also, having issues transferring from chair to bed last night. Case management continues to work on options for him to be able to continue rehabilitation after discharge. Status: Resolved (4) Acute hyponatremia: Continue salt tablets, water restriction. Status: Acute (5) Upper gastrointestinal hemorrhage due to gastritis: Status post EGD with findings of esophagitis, gastritis, Duodenal ulcer noted with active oozing. Injected. PPI, sucralfate. Status: Acute (6) Hyperkalemia: Resolved. Status: Acute (7) Hepatorenal syndrome: Status: Acute (8) Atrial fibrillation and flutter: Status: Acute (9) CHF (congestive heart failure), NYHA class III: EF of 40 to 45% Status: Acute Qualifiers: Congestive heart failure type: systolic Congestive heart failure chronicity: unspecified Qualified Code(s): I50.20 - Unspecified systolic (congestive) heart failure (10) Peritoneal dialysis catheter in situ: Status: Acute (11) End-stage liver disease: Status: Acute (12) Alcoholic cirrhosis of liver with ascites: Status: Acute (13) ETOH abuse: Status: Acute Additional A&P Information Charcot deformities of feet: It has been relayed to me he has not been ambulatory for a while according to his mother. Attestations Medical Necessity Statement*: Continue admission for cyst management of a nasarca, diuresis, in the setting of CKD, liver cirrhosis, PBC transfusion due to worsening anemia, disposition planning and arrangements. Coding Level of Care Code Acute Email Marketing Assistant for [employer] Fwd Diagnoses Anasarca R60.1 Anemia D64.9 Peritonitis K65.9 Acute hyponatremia E87.1 Upper gastrointestinal hemorrhage due to gastritis K29.71 Hyperkalemia E87.5 Hepatorenal syndrome K76.7 Atrial fibrillation and flutter I48.91; I48.92 CHF (congestive heart failure), NYHA class III I50.20 Congestive heart failure type: systolic Congestive heart failure chronicity: unspecified Peritoneal dialysis catheter in situ Z99.2 End-stage liver disease K72.90 Alcoholic cirrhosis of liver with ascites K70.31 ETOH abuse F10.10
[2021-06-03] MEDS: FUROsemide 10 mg/mL SDV 10mL 60 MG IVP (13:03)
[2021-06-03] MEDS: alfuzosin 10 mg ER Tablet PO (13:10)
[2021-06-03] MEDS: neomycin-poly-bacitracin oint 0.9 gm Pkt 1 APPLIC TOPICAL (17:31)
--- NOTE | 2021-06-03 19:55 | PC.NURSE ---
i reported high pulse 110 to nurse
[2021-06-03] MEDS: morphine 4 mg/mL SDV 1 mL 2 MG IVP (20:02)
[2021-06-04] VITALS (12 sets, daily range): BP systolic 91–110; BP diastolic 51–69; PULSE 79–108; RESP 16–18; TEMP 36.4–37.3; O2SAT 94–98
--- NOTE | 2021-06-04 00:14 | PC.NURSE ---
i reported high pulse 102 to nurse
--- NOTE | 2021-06-04 04:22 | PC.NURSE ---
i reported high pulse 105 to nurse
[2021-06-04 05:18] LABS: Basophils # 0.1 10^3/uL (0.0-0.1); Basophils % 0.8 %; Eosinophils # 0.1 10^3/uL (0.0-0.8); Eosinophils % 2.2 %; Hematocrit 24.1 % (42.0-52.0); Hemoglobin 7.8 g/dL (11.7-16.6); Lymphocytes # 0.6 10^3/uL (0.8-4.8); Lymphocytes % 10.1 %; Mean Corpuscular HGB Conc 32.4 g/dL (30.0-36.0); Mean Corpuscular Hemoglobin 31.5 pg (28.0-34.0); Mean Corpuscular Volume 97.2 fl (80-94); Mean Platelet Volume 9.8 fL (7.4-10.4); Monocytes # 1.2 10^3/uL (0.2-0.9); Monocytes % 18.4 %; Nucleated Red Blood Cells % 0 %; Platelet Count 150 10^3/cmm (130-400); Red Blood Count 2.48 10^6/uL (4.1-5.3); Red Cell Distribution Width 15.1 % (12.1-15.1); White Blood Count 6.3 10^3/uL (4.0-10.0)
[2021-06-04 05:38] LABS: Anion Gap 12.6 (5-19); Blood Urea Nitrogen 28 mg/dL (6-20); Calcium 7.4 mg/dL (8.5-10.5); Carbon Dioxide 23 mmol/L (22-29); Chloride 95 mmol/L (98-107); Glomerular Filtration Rate 48.2 mL/min (90-130); Glucose 100 mg/dL (65-115); Osmolality Calculated 268 mOsm/kg (285-295); Potassium 4.6 mmol/L (3.5-5.1); Sodium 126 mmol/L (136-145)
[2021-06-04] MEDS: sucralfate 1 gm/10 mL Oral Liq UDC PO ×4 (06:01→22:05)
[2021-06-04] MEDS: FUROsemide 10 mg/mL SDV 10mL 60 MG IVP ×2 (06:01→14:15)
[2021-06-04] MEDS: dilTIAZem ER (24HR) 120 mg Capsule PO (06:01)
[2021-06-04] MEDS: thiamine 100 mg Tablet 250 MG PO (06:01)
[2021-06-04] MEDS: pantoprazole DR 40 mg Tablet PO ×2 (09:13→17:25)
[2021-06-04] MEDS: midodrine 5 mg TABLET 10 MG PO ×3 (09:13→22:04)
[2021-06-04] MEDS: ferrous sulfate EC 325 mg Tablet PO (09:13)
[2021-06-04] MEDS: folic acid 1 mg Tablet PO (09:13)
[2021-06-04] MEDS: nystatin 100,000 unit/mL UDC 5 mL 500000 UNIT PO ×4 (09:14→22:05)
[2021-06-04] MEDS: nystatin cream 30 gm 1 APPLIC TOPICAL ×2 (09:16→17:25)
[2021-06-04] MEDS: sodium chloride 1 gm Tablet 2 GM PO ×3 (09:19→22:03)
--- NOTE | 2021-06-04 10:04 | PC.NUTR ---
Nutrition reassessment: Continue to recommend BRUSH LOADER AND HANDLE ATTACHER evaluation d/t c/o swallowing difficulty. Ensure rationale remains unclear, as po intakes appear good and weight trending up. See full assessment for further details.
--- NOTE | 2021-06-04 10:10 | PC.OT ---
OT TREATMENT ATTEMPTED; PATIENT REPORTS FEELING TIRED AND FULL OF FLUID . PREVIOUS NOTES FROM TODAY REPORT ELEVATED HR. CURRENT HR IS 100-108 WHILE RESTING IN BED. WILL HOLD FOR TODAY AND ATTEMPT AGAIN TOMORROW.
[2021-06-04] MEDS: alfuzosin 10 mg ER Tablet PO (14:15)
[2021-06-04] MEDS: levoFLOXacin 500 mg Tablet PO (14:15)
--- NOTE | 2021-06-04 16:50 | PM.PN ---
Subjective Subjective: Interval history: Hospital course, labs appreciated. Has had fairly good amount of urine response to IV Lasix. On examination patient lying comfortably in bed. Denies any nausea vomiting, headache. States he is eating okay. Currently on room air saturating 96%. Has remained hemodynamically stable and afebrile. States he is sitting up in chair for around an hour a day. We discussed the need for him to be more bed as much as possible. We discussed for him to be sitting up in chair for as long as possible. We also discussed that going forward what he needs is to follow-up with his title abstractor for TIPS procedure and he should try to arrange that as soon as possible. We also discussed that unfortunately given his insurance it is difficult to have him placed to SNF currently and none of the home health companies are covered by his insurance. He verbalizes understanding and states he will try to talk to his brother to get an appointment with the title abstractor as soon as possible and also states he is trying to get help [id number] at home. Medications: Reviewed: Yes Vitals/I&O/Wt Last Vital Signs Temp 99.2 F 06/04/21 15:24 Pulse 97 06/04/21 15:24 Resp 18 06/04/21 15:24 BP 109/67 06/04/21 15:24 Pulse Ox 98 06/04/21 15:24 06/04/21 06/04/21 06/04/21 06:59 14:59 22:59 Intake Total 240 / 1310 236 / 236 Output Total 800 / 2625 1225 / 1225 550 / 1775 Balance -560 / -1315 -989 / -989 -550 / -1539 Weight last 48 hrs Weight 141.838 kg Weight 143.426 kg Physical Exam Narrative: EXAM NARRATIVE: General: No acute distress, AO x3, pale, dehydrated, chronically sick appearing HEENT: PERRLA, pupils bilaterally equal and reactive Chest: Normal vesicular breath sounds, no added sounds, equal good air entry bilaterally CVS: S1-S2 irregularly irregular, no murmurs, no tachycardia, no gallops, no rubs Abdomen: Soft, nontender, mildly distended, no organomegaly, bowel sounds present, redness present in the lower quadrant up to the navel area, peritoneal catheter present without any sign of granulation Neuro: No focal deficits, no facial deformity, AO x3, power 5/5 in all limbs Data : 06/04/21 04:10 06/04/21 04:10 A&P Assessment and plan (1) Anasarca: Continue with Lasix 60 mg IV twice daily. Appears is not absorbing Lasix well due to edema. Fluid restriction. Spironolactone on hold due to hyperkalemia. Continue to track I&O. Daily weights. Monitor renal function. Blood pressures. Status: Acute (2) Anemia: Is not on blood thinner or antiplatelet. Continue PPI twice daily. Status post injected oozing duodenal ulcer. We will request 1 unit PRBC transfusion. Possible slow GI bleed combined with fluid overload. Status: Acute (3) Peritonitis: Continue Levaquin for peritonitis. Would most likely need a 14-day course. Cultures from this admission repeatedly growing stenotrophomonas including on catheter tip culture. Overall would suspect this may likely be colonizer of the catheter itself. Would suspect peritonitis may be polymicrobial, although in rare cases may be caused by stenotrophomonas. Catheter removed 05/29. Continue antibiotics. Reasonable to cover with Levaquin which should cover stenotrophomonas as well. He overall would like to have the catheter replaced at some point, although there has been discussion regarding TIPS as well, although it appears this discussion has been going on for quite a while without successful reassessment by GI of the patient. Appears she is not actually making it to see GI. Stenotrophomonas currently, previously Klebsiella, Enterococcus He is quite deconditioned also, having issues transferring from chair to bed last night. Case management continues to work on options for him to be able to continue rehabilitation after discharge. Status: Resolved (4) Acute hyponatremia: Continue salt tablets, water restriction. Status: Acute (5) Upper gastrointestinal hemorrhage due to gastritis: Status post EGD with findings of esophagitis, gastritis, Duodenal ulcer noted with active oozing. Injected. PPI, sucralfate. Status: Acute (6) Hyperkalemia: Resolved. Status: Acute (7) Hepatorenal syndrome: Status: Acute (8) Atrial fibrillation and flutter: Status: Acute (9) CHF (congestive heart failure), NYHA class III: EF of 40 to 45% Status: Acute Qualifiers: Congestive heart failure type: systolic Congestive heart failure chronicity: unspecified Qualified Code(s): I50.20 - Unspecified systolic (congestive) heart failure (10) Peritoneal dialysis catheter in situ: Status: Acute (11) End-stage liver disease: Status: Acute (12) Alcoholic cirrhosis of liver with ascites: Status: Acute (13) ETOH abuse: Status: Acute Additional A&P Information Charcot deformities of feet: It has been relayed to me he has not been ambulatory for a while according to his mother. Full Code SCDs Protonix for PUD Regular low potassium diet Discharge planning: Discussed in detail with patient and his mother on phone. We discussed that unfortunately with his insurance we are finding it difficult for SNF placement and home health because most of the companies are not covered by the insurance company. We also discussed going forward what is most important is for him to follow-up with his title abstractor at at [facility] for possible TIPS procedure. We discussed that unfortunately we had to take the peritoneal catheter out because of recurrent infections and getting out of procedure will prevent him from getting a new catheter replaced. Both patient and mother verbalized understanding and state they have an appointment to see Dr. King on . They also state that they are trying to arrange for help at home and would like to speak to behavioral health case manager regarding the same. Attestations Medical Necessity Statement*: Requires further hospitalization for management for anasarca, diuresis, peritonitis in setting of chronic liver disease. Time Spent in Patient Care: Greater than 35 minutes (>than 50% of time spent in counselling and/or direct pt care on unit). Coding Level of Care Code Acute Hotel Services Supervisor for [facility] Fwd Diagnoses Anasarca R60.1 Anemia D64.9 Peritonitis K65.9 Acute hyponatremia E87.1 Upper gastrointestinal hemorrhage due to gastritis K29.71 Hyperkalemia E87.5 Hepatorenal syndrome K76.7 Atrial fibrillation and flutter I48.91; I48.92 CHF (congestive heart failure), NYHA class III I50.20 Congestive heart failure type: systolic Congestive heart failure chronicity: unspecified Peritoneal dialysis catheter in situ Z99.2 End-stage liver disease K72.90 Alcoholic cirrhosis of liver with ascites K70.31 ETOH abuse F10.10
[2021-06-04] MEDS: lactulose oral liq 20 gm/30 mL UDC PO ×2 (17:24→23:08)
[2021-06-04] MEDS: neomycin-poly-bacitracin oint 0.9 gm Pkt 1 APPLIC TOPICAL (17:25)
[2021-06-04] MEDS: ondansetron 2 mg/ML SDV 2 mL 4 MG IVP (20:01)
[2021-06-04] MEDS: morphine 4 mg/mL SDV 1 mL 2 MG IVP (20:05)
[2021-06-04] MEDS: alum-mag-hydroxide-sime 30 mL UDC 15 ML PO (23:09)
[2021-06-05] VITALS (10 sets, daily range): BP systolic 93–119; BP diastolic 55–72; PULSE 84–106; RESP 16–20; TEMP 36.5–36.8; O2SAT 94–97
[2021-06-05 05:44] LABS: Basophils # 0.1 10^3/uL (0.0-0.1); Basophils % 0.8 %; Eosinophils # 0.2 10^3/uL (0.0-0.8); Eosinophils % 2.6 %; Hematocrit 24.5 % (42.0-52.0); Lymphocytes # 0.6 10^3/uL (0.8-4.8); Lymphocytes % 9.3 %; Mean Corpuscular HGB Conc 32.7 g/dL (30.0-36.0); Mean Corpuscular Hemoglobin 31.7 pg (28.0-34.0); Mean Corpuscular Volume 97.2 fl (80-94); Mean Platelet Volume 9.4 fL (7.4-10.4); Monocytes % 16.7 %; Neutrophils # 4.27 10^3/uL (1.8-7.7); Neutrophils % 69.9 %; Nucleated Red Blood Cells % 0 %; Platelet Count 164 10^3/cmm (130-400); Red Blood Count 2.52 10^6/uL (4.1-5.3); Red Cell Distribution Width 15.5 % (12.1-15.1); White Blood Count 6.1 10^3/uL (4.0-10.0)
[2021-06-05] MEDS: dilTIAZem ER (24HR) 120 mg Capsule PO (06:04)
[2021-06-05] MEDS: thiamine 100 mg Tablet 250 MG PO (06:04)
[2021-06-05] MEDS: sucralfate 1 gm/10 mL Oral Liq UDC PO ×4 (06:06→20:54)
[2021-06-05 06:09] LABS: Alanine Aminotransferase 18 U/L (0-41); Alkaline Phosphatase 95 IU/L (40-130); Anion Gap 10.4 (5-19); Aspartate Amino Transferase 40 U/L (0-40); Blood Urea Nitrogen 24 mg/dL (6-20); Calcium 7.7 mg/dL (8.5-10.5); Carbon Dioxide 26 mmol/L (22-29); Chloride 98 mmol/L (98-107); Globulin 2.7 g/dL (1.3-4.6); Glomerular Filtration Rate 48.2 mL/min (90-130); Glucose 104 mg/dL (65-115); Osmolality Calculated 274 mOsm/kg (285-295); Potassium 4.4 mmol/L (3.5-5.1); Sodium 130 mmol/L (136-145); Total Bilirubin 0.7 mg/dL (0.15-1.2); Total Protein 4.7 g/dL (6.6-8.7)
[2021-06-05] MEDS: FUROsemide 10 mg/mL SDV 10mL 60 MG IVP ×2 (06:39→13:57)
[2021-06-05] MEDS: sodium chloride 1 gm Tablet 2 GM PO ×3 (09:29→20:54)
[2021-06-05] MEDS: ferrous sulfate EC 325 mg Tablet PO (09:29)
[2021-06-05] MEDS: nystatin cream 30 gm 1 APPLIC TOPICAL ×2 (09:30→17:44)
[2021-06-05] MEDS: pantoprazole DR 40 mg Tablet PO ×2 (09:30→17:42)
[2021-06-05] MEDS: midodrine 5 mg TABLET 10 MG PO ×3 (09:30→20:54)
[2021-06-05] MEDS: HYDROcodone-acetaminophen 5-325 mg Tablet 1 TAB PO (09:30)
[2021-06-05] MEDS: folic acid 1 mg Tablet PO (09:30)
[2021-06-05] MEDS: nystatin 100,000 unit/mL UDC 5 mL 500000 UNIT PO ×3 (09:30→20:54)
[2021-06-05] MEDS: alfuzosin 10 mg ER Tablet PO (12:56)
--- NOTE | 2021-06-05 13:24 | PM.PN ---
Subjective Subjective: Interval history: No acute events overnight. Patient denies any nausea, vomiting, headache. On examination laying comfortably in bed talking on the phone. Still continues to refuse to work with physical therapy. Medications: Reviewed: Yes Vitals/I&O/Wt Last Vital Signs Temp 98.2 F 06/05/21 11:57 Pulse 88 06/05/21 11:57 Resp 20 H 06/05/21 11:57 BP 98/59 06/05/21 11:57 Pulse Ox 97 06/05/21 11:57 06/04/21 06/05/21 06/05/21 22:59 06:59 14:59 Intake Total 720 / 956 1440 / 1440 Output Total 1150 / 2375 300 / 2675 550 / 550 Balance -430 / -1419 -300 / -1719 890 / 890 Weight last 48 hrs Weight 141.929 kg Weight 141.838 kg Weight 143.426 kg Physical Exam Narrative: EXAM NARRATIVE: General: No acute distress, AO x3, pale, dehydrated, chronically sick appearing HEENT: PERRLA, pupils bilaterally equal and reactive Chest: Normal vesicular breath sounds, no added sounds, equal good air entry bilaterally CVS: S1-S2 irregularly irregular, no murmurs, no tachycardia, no gallops, no rubs Abdomen: Soft, nontender, mildly distended, no organomegaly, bowel sounds present, redness present in the lower quadrant up to the navel area, peritoneal catheter present without any sign of granulation Neuro: No focal deficits, no facial deformity, AO x3, power 5/5 in all limbs Data : 06/05/21 04:52 06/05/21 04:52 A&P Assessment and plan (1) Anasarca: Continue with Lasix 60 mg IV twice daily. Fluid restriction. Spironolactone on hold due to hyperkalemia. Continue to track I&O. Daily weights. Monitor renal function. Blood pressures. Status: Acute (2) Anemia: Is not on blood thinner or antiplatelet. Continue PPI twice daily. Status post injected oozing duodenal ulcer. We will request 1 unit PRBC transfusion. Possible slow GI bleed combined with fluid overload. Status: Acute (3) Peritonitis: Continue Levaquin for peritonitis. Would most likely need a 14-day course. Cultures from this admission repeatedly growing stenotrophomonas including on catheter tip culture. Overall would suspect this may likely be colonizer of the catheter itself. Would suspect peritonitis may be polymicrobial, although in rare cases may be caused by stenotrophomonas. Catheter removed 05/29. Continue antibiotics. Reasonable to cover with Levaquin which should cover stenotrophomonas as well. He overall would like to have the catheter replaced at some point, although there has been discussion regarding TIPS as well, although it appears this discussion has been going on for quite a while without successful reassessment by GI of the patient. Appears she is not actually making it to see GI. Stenotrophomonas currently, previously Klebsiella, Enterococcus He is quite deconditioned also, having issues transferring from chair to bed last night. Case management continues to work on options for him to be able to continue rehabilitation after discharge. Status: Resolved (4) Acute hyponatremia: Continue salt tablets, water restriction. Status: Acute (5) Upper gastrointestinal hemorrhage due to gastritis: Status post EGD with findings of esophagitis, gastritis, Duodenal ulcer noted with active oozing. Injected. PPI, sucralfate. Status: Acute (6) Hyperkalemia: Resolved. Status: Acute (7) Hepatorenal syndrome: Status: Acute (8) Atrial fibrillation and flutter: Status: Acute (9) CHF (congestive heart failure), NYHA class III: EF of 40 to 45% Status: Acute Qualifiers: Congestive heart failure type: systolic Congestive heart failure chronicity: unspecified Qualified Code(s): I50.20 - Unspecified systolic (congestive) heart failure (10) Peritoneal dialysis catheter in situ: Status: Acute (11) End-stage liver disease: Status: Acute (12) Alcoholic cirrhosis of liver with ascites: Status: Acute (13) ETOH abuse: Status: Acute Additional A&P Information Charcot deformities of feet: It has been relayed to me he has not been ambulatory for a while according to his mother. Full Code SCDs Protonix for PUD Regular low potassium diet Discharge planning: Discussed in detail with patient and his mother on phone. We discussed that unfortunately with his insurance we are finding it difficult for SNF placement and home health because most of the companies are not covered by the insurance company. We also discussed going forward what is most important is for him to follow-up with his offset label rewinder at at [facility] for possible TIPS procedure. We discussed that unfortunately we had to take the peritoneal catheter out because of recurrent infections and getting out of procedure will prevent him from getting a new catheter replaced. Both patient and mother verbalized understanding and state they have an appointment to see Dr. King on . They also state that they are trying to arrange for help at home and would like to speak to manager case management regarding the same. Plan for the day: Continue with IV diuresis, fluid restriction up to 1200 cc. Repeat labs in the a.m. Continue to find placement with case management. If remains stable plan to discharge tomorrow. Attestations Medical Necessity Statement*: Requires further hospitalization for management of anasarca, liver cirrhosis, hepatorenal syndrome, peritonitis, resolving hyponatremia. Time Spent in Patient Care: Greater than 35 minutes (>than 50% of time spent in counselling and/or direct pt care on unit). Coding Level of Care Code Acute [employer] 1 [employer] 6 Teacher for [facility] Fwd Diagnoses Anasarca R60.1 Anemia D64.9 Peritonitis K65.9 Acute hyponatremia E87.1 Upper gastrointestinal hemorrhage due to gastritis K29.71 Hyperkalemia E87.5 Hepatorenal syndrome K76.7 Atrial fibrillation and flutter I48.91; I48.92 CHF (congestive heart failure), NYHA class III I50.20 Congestive heart failure type: systolic Congestive heart failure chronicity: unspecified Peritoneal dialysis catheter in situ Z99.2 End-stage liver disease K72.90 Alcoholic cirrhosis of liver with ascites K70.31 ETOH abuse F10.10
[2021-06-05] MEDS: levoFLOXacin 750 mg Tablet PO (13:57)
--- NOTE | 2021-06-05 16:49 | PC.NURSE ---
OT gave patient a bed bath.
[2021-06-05] MEDS: neomycin-poly-bacitracin oint 0.9 gm Pkt 1 APPLIC TOPICAL (17:43)
[2021-06-05] MEDS: morphine 4 mg/mL SDV 1 mL 2 MG IVP (19:57)
[2021-06-05] MEDS: alum-mag-hydroxide-sime 30 mL UDC 15 ML PO (21:10)
[2021-06-06] VITALS: BP 96/58; PULSE 102; RESP 16; TEMP 37; O2SAT 96
[2021-06-06 03:22] VITALS: BP 92/57; PULSE 100; RESP 16; TEMP 36.8; O2SAT 95
[2021-06-06] MEDS: alum-mag-hydroxide-sime 30 mL UDC 15 ML PO (04:16)
[2021-06-06 05:40] LABS: Alanine Aminotransferase 14 U/L (0-41); Alkaline Phosphatase 102 IU/L (40-130); Anion Gap 10.3 (5-19); Aspartate Amino Transferase 26 U/L (0-40); Blood Urea Nitrogen 31 mg/dL (6-20); Calcium 7.5 mg/dL (8.5-10.5); Carbon Dioxide 26 mmol/L (22-29); Chloride 97 mmol/L (98-107); Globulin 2.6 g/dL (1.3-4.6); Glomerular Filtration Rate 48.2 mL/min (90-130); Glucose 89 mg/dL (65-115); Osmolality Calculated 274 mOsm/kg (285-295); Potassium 4.3 mmol/L (3.5-5.1); Sodium 129 mmol/L (136-145); Total Bilirubin 0.6 mg/dL (0.15-1.2); Total Protein 4.6 g/dL (6.6-8.7)
--- NOTE | 2021-06-06 06:37 | PC.NURSE ---
Spoke with Dr. Watson regarding pt's low bp this a.m., she advised me to give the cardizem and lasix as ordered
[2021-06-06] MEDS: FUROsemide 10 mg/mL SDV 10mL 60 MG IVP ×2 (06:40→13:40)
[2021-06-06] MEDS: dilTIAZem ER (24HR) 120 mg Capsule PO (06:41)
[2021-06-06] MEDS: thiamine 100 mg Tablet 250 MG PO (06:41)
[2021-06-06 07:16] VITALS: BP 97/60; PULSE 115; RESP 17; TEMP 36.7; O2SAT 95
[2021-06-06 07:39] VITALS: RESP 18
[2021-06-06] MEDS: morphine 4 mg/mL SDV 1 mL 2 MG IVP (07:39)
[2021-06-06] MEDS: pantoprazole DR 40 mg Tablet PO (07:40)
[2021-06-06] MEDS: sucralfate 1 gm/10 mL Oral Liq UDC PO ×2 (07:40→10:45)
[2021-06-06] MEDS: midodrine 5 mg TABLET 10 MG PO ×2 (07:40→13:40)
[2021-06-06] MEDS: ferrous sulfate EC 325 mg Tablet PO (07:40)
[2021-06-06] MEDS: nystatin 100,000 unit/mL UDC 5 mL 500000 UNIT PO ×2 (07:40→13:40)
[2021-06-06] MEDS: folic acid 1 mg Tablet PO (08:26)
[2021-06-06] MEDS: sodium chloride 1 gm Tablet 2 GM PO ×2 (08:26→13:40)
[2021-06-06] MEDS: nystatin cream 30 gm 1 APPLIC TOPICAL (08:27)
[2021-06-06] MEDS: neomycin-poly-bacitracin oint 0.9 gm Pkt 1 APPLIC TOPICAL (08:27)
[2021-06-06 11:22] LABS: Glucose Point of Care 132 mg/dL (70-110)
[2021-06-06 12:00] VITALS: BP 104/68; PULSE 80; RESP 16; TEMP 36.9; O2SAT 96
--- NOTE | 2021-06-06 13:14 | PM.DCS ---
Discharge Providers Date of Admission: 05/24/21 22:38 Date of Discharge: June 06, 2021 Attending Provider at Admission: Marlene Watson MD Attending Provider at Discharge: Sourav Meyer MD Consults: Surgery: Dr. Clark Nephrology: [facility] nephrology Primary Care Provider: Yosvany Segovia MD Diagnoses at Discharge Discharge Diagnosis (1) Anasarca: Status: Acute (2) Anemia: Status: Acute (3) Peritonitis: Status: Resolved (4) Acute hyponatremia: Status: Acute (5) Upper gastrointestinal hemorrhage due to gastritis: Status: Acute (6) Hyperkalemia: Status: Acute (7) Hepatorenal syndrome: Status: Acute (8) Atrial fibrillation and flutter: Status: Acute Permanent problem details: Echocardiogram done in 2019 shows an EF of 40 to 45% with hypokinetic septum, anteroseptum and inferior wall, biatrial enlargement (9) CHF (congestive heart failure), NYHA class III: Status: Acute Qualifiers: Congestive heart failure type: systolic Congestive heart failure chronicity: unspecified Qualified Code(s): I50.20 - Unspecified systolic (congestive) heart failure (10) Peritoneal dialysis catheter in situ: Status: Acute (11) End-stage liver disease: Status: Acute (12) Alcoholic cirrhosis of liver with ascites: Status: Acute (13) ETOH abuse: Status: Acute Reason for Visit Reason for Visit: GENERALIZED WEAKNESS Hospital Course Hospital Course Yosvany Soto is a 56 year old male with PMH chronic liver disease, cirrhosis, chronic hyponatremia with recurrent hospital admissions, hepatorenal syndrome, bacterial peritonitis, s/p peritoneal catheter for recurrent ascites, history of esophageal varices, chronic alcohol abuse, noncompliance presented to the ER today because of worsening weakness for 2 days. Patient states his weakness has been increasing for the last 1 week but for last 2 days he has not even been able to get out of the bed. States no recent changes in medications though has not been able to take his lactulose for last 2 days. Last bowel movement was 3 days ago. Denies any dysuria daughter states decline in urine output. Also states his peritoneal fluid has become blood-tinged over last 2 draws over the week. Blood work in the ER showed a white count 12.8, hemoglobin of 7.3, INR of 1.5, sodium of 113, potassium of 7.1, creatinine of 2, BUN of 28, UA negative for any signs of infection. Patient went to the hospital for further management of severe hyponatremia, hyperkalemia. Patient was started on treatment for SIADH with fluid restriction and oral salt supplementation. Nephrology was consulted. He was started on Kayexalate for hyperkalemia. He responded well to the treatment and his sodium levels have improved gradually to 129 with fluid restriction up to 1200 cc with occasional diuresis with Lasix. During hospitalization patient was found to have peritonitis for which she was initially started on broad-spectrum antibiotics and was later transitioned over to oral Levaquin as per culture sensitivities. Fluid cultures were consistent with stenotrophomonas. His hospitalization was also complicated by patient developing generalized anasarca which was treated with aggressive IV diuresis. Patient has responded well to the treatment. During hospitalization patient was found to have ongoing anemia with history of recent occult blood positive surgery was consulted and he underwent endoscopy which was consistent with erosive gastritis with oozing blood for which he was treated with localized epinephrine injection. During hospitalization patient required 2 units of PRBC transfusion and his hemoglobin remained stable. Because of recurrent episodes of peritonitis within the last 4 months patient's peritoneal dialysis catheter was explanted on May 29. Because of multiple hospitalization, prolonged hospitalization and generalized deconditioning further discharge planning were discussed with patient's mother and patient himself and multiple attempts were made to different facilities for placement to SNF for further rehabitation and management but unfortunately patient's insurance could not approve both for SNF or home health. Further assistance was provided to the patient and patient's family and they opted to go home with in-home services which family is trying to arrange for themselves. 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 for a possible TIPS as soon as possible to help him with hepatorenal syndrome. Patient's mother and patient verbalized understanding. Patient worked on and off with physical therapy during hospitalization. 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 Physical Exam Narrative: EXAM NARRATIVE: General: No acute distress, AO x3, pale chronically sick appearing HEENT: PERRLA, pupils bilaterally equal and reactive Chest: Normal vesicular breath sounds, no added sounds, equal good air entry bilaterally CVS: S1-S2 irregularly irregular, no murmurs, no tachycardia, no gallops, no rubs Abdomen: Soft, nontender, mildly distended, no organomegaly, bowel sounds present, redness present in the lower quadrant up to the navel area, peritoneal catheter present without any sign of granulation Neuro: No focal deficits, no facial deformity, AO x3, power 5/5 in all limbs Discharge Data Data Completed and Pending: Completed Studies During Hospitalization Category Date Time Status CT chest abd pel wo con Routine Cat Scan 05/26/21 08:13 Completed XR chest 1V kasia ble [id number] Stat Exams 05/24/21 13:32 Completed US renal BI* [id number] Routine Ultrasound 05/24/21 16:19 Completed Pending at discharge Category Date Time Status Comprehensive Met abolic Panel AM LA BS Lab 06/07/21 04:00 Ordered Labs from last 24 hours 06/06/21 06/06/21 11:10 04:59 Sodium 129 L Potassium 4.3 Chloride 97 L Carbon Dioxide 26 Anion Gap 10.3 BUN 31 H Creatinine 1.5 H GFR Calculation 48.2 L Glucose 89 POC Glucose 132 H Calculated Osmolal ity 274 L Calcium 7.5 L Total Bilirubin 0.6 AST 26 ALT 14 Alkaline Phosphata se 102 Total Protein 4.6 L Albumin 2.0 L Globulin 2.6 Addt'l Data from Hospital Stay: Laboratory Results WBC 6.1 10^3/uL (4.0- 10.0) 06/05/21 04:52 RBC 2.52 10^6/uL (4.1 -5.3) L 06/05/21 04:52 Hgb 8.0 g/dL (11.7-16 .6) L 06/05/21 04:52 Hct 24.5 % (42.0-52.0 ) L 06/05/21 04:52 MCV 97.2 fl (80-94) H 06/05/21 04:52 MCH 31.7 pg (28.0-34. 0) 06/05/21 04:52 MCHC 32.7 g/dL (30.0-3 6.0) 06/05/21 04:52 RDW 15.5 % (12.1-15.1 ) H 06/05/21 04:52 Plt Count 164 10^3/cmm (130 -400) 06/05/21 04:52 MPV 9.4 fL (7.4-10.4) 06/05/21 04:52 Neut % (Auto) 69.9 % 06/05/21 04:52 Lymph % (Auto) 9.3 % 06/05/21 04:52 [place] % (Auto) 16.7 % 06/05/21 04:52 Eos % (Auto) 2.6 % 06/05/21 04:52 Baso % (Auto) 0.8 % 06/05/21 04:52 Reticulocyte % (Au to) 2.6 % (0.5-2.0) H 05/24/21 19:20 Neut # (Auto) 4.27 10^3/uL (1.8 -7.7) 06/05/21 04:52 Lymph # (Auto) 0.6 10^3/uL (0.8- 4.8) L 06/05/21 04:52 [place] # (Auto) 1.0 10^3/uL (0.2- 0.9) H 06/05/21 04:52 Eos # (Auto) 0.2 10^3/uL (0.0- 0.8) 06/05/21 04:52 Baso # (Auto) 0.1 10^3/uL (0.0- 0.1) 06/05/21 04:52 Nucleated RBC % (a uto) 0 % 06/05/21 04:52 Nucleated RBCs # 0.0 /100WBC 06/05/21 04:52 PT 18.70 SECONDS (12 .1-14.9) H 05/24/21 14:05 INR 1.52 (0.8-1.2) H 05/24/21 14:05 APTT 48.6 SECONDS (23. 9-36.7) H 05/24/21 14:05 Sodium 129 mmol/L (136-1 45) L 06/06/21 04:59 Potassium 4.3 mmol/L (3.5-5 .1) 06/06/21 04:59 Chloride 97 mmol/L (98-107 ) L 06/06/21 04:59 Carbon Dioxide 26 mmol/L (22-29) 06/06/21 04:59 Anion Gap 10.3 (5-19) 06/06/21 04:59 BUN 31 mg/dL (6-20) H 06/06/21 04:59 Creatinine 1.5 mg/dL (0.7-1. 2) H 06/06/21 04:59 GFR Calculation 48.2 mL/min (90-1 30) L 06/06/21 04:59 Glucose 89 mg/dL (65-115) 06/06/21 04:59 POC Glucose 132 mg/dL (70-110 ) H 06/06/21 11:10 Calculated Osmolal ity 274 mOsm/kg (285- 295) L 06/06/21 04:59 Uric Acid 9.0 mg/dL (3.4-7. 0) H 05/24/21 19:20 Calcium 7.5 mg/dL (8.5-10 .5) L 06/06/21 04:59 Phosphorus 4.2 mg/dL (2.5-4. 5) 05/30/21 05:00 Magnesium 1.8 mg/dL (1.7-2. 3) 05/30/21 05:00 Iron 31 ug/dL (59-158) L 05/25/21 04:19 TIBC 104 mcg/dl 05/25/21 04:19 % Saturation 29.8 % (20-50) 05/25/21 04:19 Unsat Iron Binding 73 ug/dL (112-347 ) L 05/25/21 04:19 Ferritin 1127 ng/mL (30-40 0) H 05/25/21 04:19 Total Bilirubin 0.6 mg/dL (0.15-1 .2) 06/06/21 04:59 AST 26 U/L (0-40) 06/06/21 04:59 ALT 14 U/L (0-41) 06/06/21 04:59 Alkaline Phosphata se 102 IU/L (40-130) 06/06/21 04:59 Ammonia 29 umol/L (16-60) 05/24/21 14:05 Creatine Kinase 24 U/L (39-308) L 05/25/21 02:20 Total Protein 4.6 g/dL (6.6-8.7 ) L 06/06/21 04:59 Albumin 2.0 g/dL (3.5-5.2 ) L 06/06/21 04:59 Globulin 2.6 g/dL (1.3-4.6 ) 06/06/21 04:59 Lipase 12 U/L (13-60) L 05/24/21 14:05 Vitamin B12 1826 pg/mL (232-1 245) H 05/25/21 04:19 25-OH Vitamin D To laureano 11 ng/mL (30-100) L 05/25/21 04:19 Folate > 20.0 ng/mL (4.5 -32.2) 05/25/21 04:19 Procalcitonin 2.47 ng/mL (0-0.5 ) H 05/27/21 04:35 Urine Color Yellow (Yellow) 05/24/21 15:45 Urine Appearance Clear (CLEAR) 05/24/21 15:45 Urine pH 5 (5-7) 05/24/21 15:45 Ur Specific Gravit y 1.005 (1.005-1.0 30) 05/24/21 15:45 Urine Protein Neg (Negative) 05/24/21 15:45 Urine Glucose (UA) Norm (Normal) 05/24/21 15:45 Urine Ketones Negative (Negati ve) 05/24/21 15:45 Urine Blood Neg (Negative) 05/24/21 15:45 Urine Nitrate Negative (Negati ve) 05/24/21 15:45 Urine Bilirubin Neg (Negative) 05/24/21 15:45 Urine Urobilinogen Norm mg/dL (Negat regina) 05/24/21 15:45 Ur Leukocyte Kristy ase Negative (Negati ve) 05/24/21 15:45 Ur Random Sodium 31 mmol/L 05/24/21 19:15 Ur Random Potassiu m 19 mmol/L 05/24/21 19:15 Ur Random Chloride 32 mmol/L 05/24/21 19:15 Urine Creatinine 30 mg/dL (39-259) L 05/24/21 19:15 Peritoneal Color Slight pink (Pal e Yellow) 05/27/21 11:00 Peritoneal Appeara nce Hazy (Clear) 05/27/21 11:00 Peritoneal pH 8.0 05/25/21 00:20 Peritoneal Spec Gr avity 1.005 05/25/21 00:20 Peritoneal WBC 2486 /uL 05/27/21 11:00 Peritoneal RBC 10 10^3/uL 05/27/21 11:00 Periton Mononu # A uto 0.461 10^3/uL 05/27/21 11:00 Mononuclear WBCs % 18.500 % 05/27/21 11:00 Polynuclear WBCs % 81.500 % 05/27/21 11:00 Perit Polynuc WBCs # 2.025 10^3/uL 05/27/21 11:00 Peritoneal Diff Co mmnt Yes 05/27/21 11:00 Peritoneal Tot Pro tein 1.8 g/dL 05/25/21 00:20 Peritoneal LDH 466.0 U/L 05/25/21 00:20 Peritoneal Glucose 41.0 mg/dL 05/25/21 00:20 Perit Adenosine De mariscal 18.2 U/L (<7.6) H 05/25/21 00:20 Vancomycin Trough 8.0 ug/mL (10-15) L 05/26/21 11:57 Random Vancomycin 10.4 ug/mL (20.0- 40.0) L 05/28/21 02:45 Blood Type O Positive 06/03/21 11:40 Rho(D) Type Positive 06/03/21 11:40 Antibody Screen Negative 06/03/21 11:40 Crossmatch See Detail 06/03/21 11:40 Impressions Chest X-Ray 05/24/21 13:32 Impression: Negative chest. Renal Ultrasound 05/24/21 16:19 IMPRESSION: 1. No acute finding. 2. Suboptimal visualization of the kidneys. Chest/Abdomen/Pelvis CT 05/26/21 08:13 IMPRESSION: 1. Hepatic cirrhosis is evident. 2. Peritoneal dialysis catheter is located in the right lower quadrant with large amount of free fluid in the abdomen. 3. Small amount of free air is seen within the abdomen felt to be secondary to peritoneal dialysis. 4. Colonic diverticulosis is present without diverticulitis. Radiation Dose CTDIVOL = (mGy): DLP = 2621.3~2621.3 (mGy-cm) Microbiology 05/29/21 15:31 Abdomen Gram Stain - Final 05/29/21 15:31 Abdomen Wound Culture - Final 05/29/21 16:20 Sputum - Expectorated Sputum Gram Stain - Final 05/29/21 16:20 Sputum - Expectorated Sputum Sputum Culture - Final 05/29/21 12:45 Peritoneal Fluid Gram Stain - Final 05/29/21 12:45 Peritoneal Fluid Body Fluid Culture - Final Stenotrophomonas maltophilia 05/26/21 10:12 Peritoneal Fluid Gram Stain - Final 05/26/21 10:12 Peritoneal Fluid Body Fluid Culture - Final Stenotrophomonas maltophilia 05/24/21 19:59 Blood Blood Culture - Final NO GROWTH AFTER 5 DAYS 05/24/21 19:36 Blood Blood Culture - Final NO GROWTH AFTER 5 DAYS 05/25/21 00:45 Abdomen Gram Stain - Final 05/25/21 00:45 Abdomen Abscess Culture - Final 05/25/21 22:00 Peritoneal Fluid Gram Stain - Final 05/25/21 22:00 Peritoneal Fluid Body Fluid Culture - Final Stenotrophomonas maltophilia 05/25/21 00:20 Ascites Fluid Gram Stain - Final 05/25/21 00:20 Ascites Fluid Body Fluid Culture - Final Stenotrophomonas maltophilia 05/26/21 09:45 Nose MRSA Culture - Final Vitals: Last Vital Signs Temp 98.5 F 06/06/21 12:00 Pulse 80 06/06/21 12:00 Resp 16 06/06/21 12:00 BP 104/68 06/06/21 12:00 Pulse Ox 96 06/06/21 12:00 Discharge Plan Discharge Patient Disposition: Home Condition: Stable Prescriptions: New nystatin 100,000 unit/mL Suspension 500,000 unit PO QID 10 Days Qty: 200 RF: 0 sucralfate 100 mg/mL Suspension 1 g PO AC&BEDTIME 30 Days Qty: 300 RF: 0 sodium chloride 1 gram Tablet 2 g PO TID 30 Days Qty: 180 RF: 0 levofloxacin 750 mg Tablet 750 mg PO Q24H 7 Days Qty: 7 RF: 0 Continued vitamin B complex [B Complex-Vitamin B12] Tablet 1 tab PO DAILY@16 RF: 0 (DME) Eliezer Walker See Rx Instructions .Route .MEDSUPPLY Qty: 1 RF: 0 diltiazem HCl [Cartia XT] 120 mg capsule,extended release 24hr 120 mg PO QAM RF: 0 (DME) [place] [facility] See Rx Instructions .Route .MEDSUPPLY Qty: 1 RF: 0 (DME) [place] [employer] to the left and an even-up applied to the right foot See Rx Instructions .Route .MEDSUPPLY Qty: 1 RF: 0 Spiriva Respimat 2.5 mcg/actuation mist 2 puff inhalation DAILY Qty: 4 RF: 0 tramadol 50 mg Tablet 100 mg PO DAILY PRN (Reason: Pain) RF: 0 Ocuvite Adult 50 Plus 250-5-1 mg Capsule 1 cap PO PRN RF: 0 folic acid 1 mg tablet 1 mg PO DAILY@10 RF: 0 fluticasone propionate 50 mcg/actuation spray,suspension 1 - 2 spray intranasal DAILY PRN (Reason: Allergy Symptoms) RF: 0 albuterol sulfate 90 mcg/actuation HFA aerosol inhaler 2 inh INHALATION Q4H PRN (Reason: shortness of breath/wheezing) RF: 0 thiamine HCl (vitamin B1) [Vitamin B-1] 250 mg Tablet 250 mg PO QAM RF: 0 PreserVision AREDS [id number]-[id number] Capsule 1 cap PO DAILY RF: 0 ferrous sulfate 27 mg iron Tablet 27 mg PO DAILY RF: 0 Zyrtec 10 mg Tablet 10 mg PO DAILY PRN (Reason: Allergy Symptoms) RF: 0 alfuzosin 10 mg tablet extended release 24 hr 10 mg PO DAILY@13 RF: 0 lactulose 20 gram/30 mL solution 30 ml PO TID PRN (Reason: SEE PHARMACY COMMENTS) RF: 0 Changed midodrine 5 mg tablet 10 mg PO TID 30 Days Qty: 180 RF: 0 pantoprazole 40 mg tablet,delayed release (DR/EC) 40 mg PO BID Qty: 0 RF: 0 furosemide 40 mg tablet 60 mg PO BID Qty: 0 RF: 0 Discontinued meloxicam 7.5 mg tablet 7.5 mg PO DAILY RF: 0 potassium chloride 20 mEq tablet,ER particles/crystals 20 meq PO BID RF: 0 spironolactone 50 mg tablet 50 mg PO QAM RF: 0 Cipro 500 mg tablet 500 mg PO DAILY RF: 0 Discharge Orders: Discharge Order (Routine); Ordered 06/06/21 Ordered By: Sourav Meyer Referrals: [facility] [Other] (Speak with Arturo) [facility] [Other] (Speak with Jasmina) Yosvany Segovia MD [Primary Care Provider] - 1-3 days Discharge Diet: Regular Discharge Activity: Resume usual activity and Increase activity as tolerated Patient Instructions: GI Discharge Instructions, Opioid Safety Activity Restrictions/Additional Instructions: fluid restriction up to 1200 cc, 2 g oral salt tablets 3 times a day, midodrine 10 mg 3 times a day, oral Lasix 60 mg twice daily 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 as soon as possible and to follow-up with his primary care provider within 1 to 3 days Discharge Attestations Time Spent in Discharge Care*: greater than 30 min Specific Discharge Activities: educating patient, educating and/or supporting family/caregiver, discussing with pcp/other providers, discussing with case manager specialist/social workers/dc planners, documenting/other paperwork and evaluating patient/reviewing data Status at Discharge: Cognitive status at discharge: cognitively intact, Behavioral status at discharge: cooperative, Functional status at discharge: other assisted ambulation Overall status at discharge: patient is progressing back to baseline Quality Metrics Clinical Quality Measures During this hospital stay, did patient experience: None Coding Level of Care Code Acute Chg FW DC note Diagnoses Anasarca R60.1 Anemia D64.9 Peritonitis K65.9 Acute hyponatremia E87.1 Upper gastrointestinal hemorrhage due to gastritis K29.71 Hyperkalemia E87.5 Hepatorenal syndrome K76.7 Atrial fibrillation and flutter I48.91; I48.92 CHF (congestive heart failure), NYHA class III I50.20 Congestive heart failure type: systolic Congestive heart failure chronicity: unspecified Peritoneal dialysis catheter in situ Z99.2 End-stage liver disease K72.90 Alcoholic cirrhosis of liver with ascites K70.31 ETOH abuse F10.10
[2021-06-06] MEDS: levoFLOXacin 750 mg Tablet PO (13:40)
[2021-06-06] MEDS: alfuzosin 10 mg ER Tablet PO (13:40)
--- NOTE | 2021-06-06 16:42 | PC.OT ---
PATIENT SCHEDULED FOR DISCHARGE TODAY.
[2021-06-06 17:17] VITALS: BP 104/68; PULSE 80; RESP 16; TEMP 36.9; O2SAT 96
--- NOTE | 2021-06-07 09:39 | PC.SOCIAL ---
discharge follow up call made, spoke with patient. patient reports he is doing well. patient is having trouble getting in and out of his chair but his son is going to help today to get chair where patient can get in and out. patient picked up medications from pharmacy, all except sodium tabs but will be getting those today, pharmacy had to order. patient is aware of medication changes and discontinued medications. patient is aware of fluid restriction but he states he isn't sure he can do, he is going to try. patients pcp is getting patient into rewrite editor. patient is wanting to do at home PT or something in the area, patient reports he also would be willing be an inpatient in a facility for rehab. comic writer will speak to case management.
== END 2021-06-06 17:18 | disposition home or self-care (01) | DRG 907 ==
LOC: ER 20:34 → CSU 22:40 → ER IP 05-29 06:18 → CSU 05-29 06:19 → MEDSURG 05-29 23:19
PROVIDERS: Internal Medicine; Internal Medicine Nephrology; Surgery; Admitting Provider Student in an Organized Health Care Education/Training Program; Emergency Provider Family Medicine; PCP Family Medicine; Visit Provider Student in an Organized Health Care Education/Training Program
PROC: 0DJ08ZZ Inspection of Upper Intestinal Tract, Via Natural or Artificial Opening Endoscopic (ICD-10-PCS; CPT 43235; principal; 2021-05-27 08:00)
PROC: (CPT 49422; principal; 2021-05-29 13:50)
DX: T85.71XA Infection and inflammatory reaction due to peritoneal dialysis catheter, initial encounter (principal); K25.0 Acute gastric ulcer with hemorrhage; E22.2 Syndrome of inappropriate secretion of antidiuretic hormone; I48.20 Chronic atrial fibrillation, unspecified; I50.22 Chronic systolic (congestive) heart failure; N17.9 Acute kidney failure, unspecified; Y73.1 Therapeutic (nonsurgical) and rehabilitative gastroenterology and urology devices associated with adverse incidents; K70.31 Alcoholic cirrhosis of liver with ascites; F10.10 Alcohol abuse, uncomplicated; K21.00 Gastro-esophageal reflux disease with esophagitis, without bleeding; K21.9 Gastro-esophageal reflux disease without esophagitis; D64.9 Anemia, unspecified; E87.5 Hyperkalemia; N40.1 Benign prostatic hyperplasia with lower urinary tract symptoms; Z87.01 Personal history of pneumonia (recurrent); E11.22 Type 2 diabetes mellitus with diabetic chronic kidney disease; N18.30 Chronic kidney disease, stage 3 unspecified; E11.610 Type 2 diabetes mellitus with diabetic neuropathic arthropathy; E11.51 Type 2 diabetes mellitus with diabetic peripheral angiopathy without gangrene; E11.40 Type 2 diabetes mellitus with diabetic neuropathy, unspecified; Z87.891 Personal history of nicotine dependence; E86.0 Dehydration; B96.89 Other specified bacterial agents as the cause of diseases classified elsewhere; Z91.19 Patient's noncompliance with other medical treatment and regimen
CPT/HCPCS: 36415; 36416; 36430; 43235; 43255; 71045; 71250; 74176; 76770; 80048; 80053; 80202; 80500; 81003; 82140; 82306; 82436; 82550; 82570; 82607; 82728; 82746; 82945; 82962; 83540; 83550; 83615; 83690; 83735; 83986; 84100; 84133; 84145; 84157; 84300; 84311; 84315; 84550; 85025; 85045; 85610; 85730; 86850; 86900; 86920; 87040; 87070; 87075; 87077; 87186; 87205; 87641; 89050; 93005; 94002; 94640; 94660; 94799; 96372; 96374; 96375; 97110; 97116; 97161; 97166; 97530; 97535; 99285; J0171; J0610; J0696; J0743; J1200; J1644; J1815; J1940; J2250; J2270; J2370; J2405; J2704; J2765; J3010; J3370; J3475; J3490; J7030; J7131; P9016; P9047; Q3014

== ENCOUNTER 2021-06-27 13:26 | Outpatient (CLI) | payer OTHER, SELFPAY | END 2021-06-27 13:27 | disposition home or self-care (01) | LOC: WOUND 13:27 | PROVIDERS: PCP Family Medicine; Visit Provider Thoracic Surgery (Cardiothoracic Vascular Surgery) | DX: L97.821 Non-pressure chronic ulcer of other part of left lower leg limited to breakdown of skin (principal); Z87.891 Personal history of nicotine dependence | CPT/HCPCS: 97597; 99213; G0463 ==

== ENCOUNTER 2021-07-04 06:00 | Outpatient (RCR) | payer OTHER, SELFPAY | END 2021-07-15 23:59 | disposition home or self-care (01) | LOC: SPT 06:00 | PROVIDERS: PCP Family Medicine; Referring Provider Nurse Practitioner Family; Visit Provider Nurse Practitioner Family | DX: I89.0 Lymphedema, not elsewhere classified (principal) | CPT/HCPCS: 29581; 97140; 97161 ==

== ENCOUNTER 2021-07-04 14:48 | Outpatient (CLI) | payer OTHER, SELFPAY | END 2021-07-04 14:49 | disposition home or self-care (01) | LOC: WOUND 14:51 | PROVIDERS: PCP Family Medicine; Visit Provider Nurse Practitioner Family | DX: I96 Gangrene, not elsewhere classified (principal); L97.821 Non-pressure chronic ulcer of other part of left lower leg limited to breakdown of skin; Z87.891 Personal history of nicotine dependence | CPT/HCPCS: 11042; A6252; A6253 ==

== ENCOUNTER → 2021-07-10 10:23 | Day surgery (SDC) | payer OTHER, SELFPAY ==
[2021-07-10 10:30] VITALS: BP 111/73; PULSE 107; RESP 18; TEMP 36.1; O2SAT 97
--- NOTE | 2021-07-10 11:00 | US_ITS ---
WS: [id number] Abdominal ultrasound, limited. History: Evaluate for ascites. Comparison: None. All 4 quadrants are imaged by ultrasound to evaluate for ascites. There is a small amount of ascites in all 4 quadrants. US/US abdomen limited [id number] IMPRESSION: Small amount of ascites.
[2021-07-10 11:04] VITALS: BMI 42.3
--- NOTE | 2021-07-10 11:45 | PC.NURSE ---
AFTER VIEWING ABDOMEN IT WAS DETERMINED THERE WAS NOT A SUFFICIENT AMOUNT OF FLUID TO PROCEED WITH PARACENTESIS, PER DR. ANDRADE
== END ==
PROVIDERS: PCP Family Medicine; Visit Provider Internal Medicine
DX: R18.8 Other ascites (principal)
CPT/HCPCS: 76705

== ENCOUNTER 2021-07-11 14:36 | Outpatient (CLI) | payer OTHER, SELFPAY | END 2021-07-11 14:37 | disposition home or self-care (01) | LOC: WOUND 14:36 | PROVIDERS: PCP Family Medicine; Visit Provider Thoracic Surgery (Cardiothoracic Vascular Surgery) | DX: I87.2 Venous insufficiency (chronic) (peripheral) (principal); L97.821 Non-pressure chronic ulcer of other part of left lower leg limited to breakdown of skin; I89.0 Lymphedema, not elsewhere classified; Z87.891 Personal history of nicotine dependence | CPT/HCPCS: 99213; A6252; A6253; G0463 ==

== ENCOUNTER 2021-07-16 06:00 | Outpatient (RCR) | payer OTHER, SELFPAY | END 2021-08-14 23:59 | disposition home or self-care (01) | LOC: SPT 06:00 | PROVIDERS: PCP Family Medicine; Visit Provider Nurse Practitioner Family | DX: I89.0 Lymphedema, not elsewhere classified (principal) | CPT/HCPCS: 29581; 97140 ==

== ENCOUNTER 2021-07-18 10:53 | Outpatient (CLI) | payer OTHER, SELFPAY | END 2021-07-18 10:54 | disposition home or self-care (01) | LOC: WOUND 10:53 | PROVIDERS: PCP Family Medicine; Visit Provider Thoracic Surgery (Cardiothoracic Vascular Surgery) | DX: I87.2 Venous insufficiency (chronic) (peripheral) (principal); L97.821 Non-pressure chronic ulcer of other part of left lower leg limited to breakdown of skin; L97.822 Non-pressure chronic ulcer of other part of left lower leg with fat layer exposed; Z87.891 Personal history of nicotine dependence | CPT/HCPCS: 97597; 97598 ==

== ENCOUNTER 2021-07-25 10:53 | Outpatient (CLI) | payer OTHER, SELFPAY | END 2021-07-25 10:54 | disposition home or self-care (01) | LOC: WOUND 10:54 | PROVIDERS: PCP Family Medicine; Visit Provider Thoracic Surgery (Cardiothoracic Vascular Surgery) | DX: I87.2 Venous insufficiency (chronic) (peripheral) (principal); L97.822 Non-pressure chronic ulcer of other part of left lower leg with fat layer exposed; L97.812 Non-pressure chronic ulcer of other part of right lower leg with fat layer exposed; Z87.891 Personal history of nicotine dependence | CPT/HCPCS: 97597 ==

== ENCOUNTER 2021-08-08 10:20 | Outpatient (CLI) | payer OTHER, SELFPAY | END 2021-08-08 10:21 | disposition home or self-care (01) | LOC: WOUND 10:20 | PROVIDERS: PCP Family Medicine; Visit Provider Nurse Practitioner Family | DX: I87.2 Venous insufficiency (chronic) (peripheral) (principal); L97.821 Non-pressure chronic ulcer of other part of left lower leg limited to breakdown of skin; L97.812 Non-pressure chronic ulcer of other part of right lower leg with fat layer exposed; Z87.891 Personal history of nicotine dependence | CPT/HCPCS: 99213; 99214 ==

== ENCOUNTER 2021-08-15 06:00 | Outpatient (RCR) | payer OTHER, SELFPAY | END 2021-08-20 23:59 | disposition home or self-care (01) | LOC: SPT 06:00 | PROVIDERS: PCP Family Medicine; Visit Provider Nurse Practitioner Family | DX: I89.0 Lymphedema, not elsewhere classified (principal) | CPT/HCPCS: 97140 ==

== ENCOUNTER 2021-08-15 14:13 | Outpatient (CLI) | payer OTHER, SELFPAY | END 2021-08-15 14:14 | disposition home or self-care (01) | LOC: WOUND 14:14 | PROVIDERS: PCP Family Medicine; Visit Provider Nurse Practitioner Family | DX: Z09 Encounter for follow-up examination after completed treatment for conditions other than malignant neoplasm (principal); Z87.891 Personal history of nicotine dependence | CPT/HCPCS: 99212 ==

== ENCOUNTER 2021-09-01 12:35 | Inpatient (IN) | payer OTHER, SELFPAY ==
[2021-09-01] VITALS (9 sets, daily range): BP systolic 102–145; BP diastolic 69–89; PULSE 100–114; RESP 16–20; TEMP 36.2–36.8; O2SAT 95–98; BMI 37.7
--- NOTE | 2021-09-01 12:53 | W.ED.GENADLT ---
HPI - General Adult General: Chief complaint: Altered Mental Status Stated complaint: GENERAL WEAKNESS/ POSSIBLY DEHYDRATED Time Seen by Provider: 09/01/21 12:37 History of Present Illness: HPI narrative: Patient is a 56-year-old male history of alcoholic cirrhosis presenting to the emergency room with concerns for altered mental status since 8 hrs ago. Patient per family, patient became confused this morning and has been unable to perform his ADLs. Patient had no fever/chills, hematemesis, abdominal pain, nausea/vomiting, diarrhea, melena or hematochezia. Onset: 8 hrs ago Duration:8 hrs Location:ongoing Severity:moderate Review of Systems Narrative: Constitutional: No fever, no chills. HEENT: No vision changes CV: No chest pain, no palpitations PULM: no cough, no dyspnea. GI: No abdominal pain, no N/V/D. : No dysuria MSKEL: No muscle pain SKIN: No new rashes, no lesions. NEURO: No headache, no focal weakness. +altered mental status HEME: No visible bruises PSYCH: Normal mood PFSH ED PFSH: Medical History (Updated 09/01/21 @ 17:37 by Sourav Meyer MD) Acute dyspnea Acute encephalopathy Acute hypokalemia Acute hyponatremia Alcoholic cirrhosis of liver with ascites Ascites Ascites due to alcoholic cirrhosis Ataxia Atrial fibrillation and flutter Echocardiogram done in 2019 shows an EF of 40 to 45% with hypokinetic septum, anteroseptum and inferior wall, biatrial enlargement Atrial fibrillation with RVR BPH loc w urin obs/LUTS C. difficile diarrhea Charcot's arthropathy Charcot's joint of left foot Chest pain Pleuritic chest pain: Resolved; CHF (congestive heart failure), NYHA class III Chronic hyponatremia Chronic hyponatremia Dyspnea on exertion End-stage liver disease Erectile dysfunction ETOH abuse Ex-smoker Fracture of fourth metatarsal bone of left foot Fracture of second metatarsal bone of left foot Fracture of third metatarsal bone of left foot Hepatorenal syndrome History of abdominal paracentesis Hx of esophageal varices Hyperkalemia Hyponatremia Hyponatremia with excess extracellular fluid volume Laceration of left foot Neuropathy Non-pressure chronic ulcer of other part of left foot limited to breakdown of skin Occult blood in stools Peritoneal dialysis catheter in situ Peyronie disease Pleural effusion Pleural effusion associated with hepatic disorder Pneumonia PVD (peripheral vascular disease) Upper gastrointestinal hemorrhage due to gastritis Surgical History H/O colonoscopy 10-12 yrs H/O esophagogastroduodenoscopy History of tonsillectomy Hx of umbilical hernia repair Hx of vasectomy Status post surgery (07/05/20) peritoneal catheter for ascites Family History Grandfather CAD (coronary artery disease) Grandmother CAD (coronary artery disease) Cancer Father Cancer Denies family history of Anesthesia complication Bleeding disorder Social History Quit status (tobacco): has quit using tobacco Year quit tobacco: 2014 less than a [id number] Second hand smoke exposure: No Smoking risk assessment/counseling performed?: Yes Alcohol intake: current Alcohol intake frequency: 3 or more drinks per day Alcohol type: beer Adopted: No Caregiver/support person: Yes Lives independently: Yes Household members: children Marital status: Current occupational status: unemployed Pets and animals: Yes History of recent travel: No Current gender identity: Male Physical Exam Narrative: EXAM NARRATIVE: Head: Atraumatic Eyes: PERRL, conjunctiva without injection ENT: Mucous membrane moist NECK: Supple, ROM intact LUNGS: LCTAB, no crackles/rhonchi CV: Irregular irregular tachycardia ABDOMEN: Soft, +mild abdominal distension, no focal TTP. NO guarding rebound, guarding, rigidity. No CVA tenderness to percussion. Neg Hinson/Neg McBurney's point tenderness, no suprabupic tenderness to palpation EXTREMITY: Normal ROM SKIN: No rash or erythema NEURO: Awake and alert x 2, confusion PSYCH: Normal mood and affect Course Vital Signs: Vital signs: Vital Signs Temperature 97.6 F 09/02/21 07:53 Pulse Rate 96 09/02/21 07:53 Respiratory Rate 16 09/02/21 07:53 Blood Pressure 146/80 09/02/21 07:53 Pulse Oximetry 98 09/02/21 07:53 MDM - General Adult MDM Narrative: Medical decision making narrative: 56-year-old male with a history of colic cirrhosis complicated hepatic encephalopathy presenting to emergency room with concerns for altered mental status, arrival, patient is noted to be tachycardic to the low 100s. Patient is GCS 14, AAO x2. Hemoglobin 10.2 consistent with baseline. Patient is noted to have creatinine of 2.5 above baseline 1.61.7. Ammonia of 117 highest compared to prior presentation. Suspect the patient may be in hepatic encephalopathy. Do not suspect SBP, as patient did not have any significant abdominal tenderness, fever, white count. Patient on ultrasound does not appear to have any significant ascites. G-tube was attempted to be placed however patient had bilateral nosebleed. Patient received Afrin with cessation of nosebleed. Patient will be fed p.o. lactulose. He will be admitted for hepatic encephalopathy and possible hepatorenal syndrome. Disposition: Admission Lab Data: Labs: Lab Results 09/01/21 09/01/21 09/01/21 12:52 13:11 13:11 WBC RBC Hgb Hct MCV MCH MCHC RDW Plt Count MPV Neut % (Auto) Lymph % (Auto) Treasure % (Auto) Eos % (Auto) Baso % (Auto) Neut # (Auto) Lymph # (Auto) Treasure # (Auto) Eos # (Auto) Baso # (Auto) Nucleated RBC % (a uto) Nucleated RBCs # Sodium Potassium Chloride Carbon Dioxide Anion Gap BUN Creatinine GFR Calculation Glucose POC Glucose 101 mg/dL mg/dL (70-110) Calculated Osmolal ity Calcium Magnesium Total Bilirubin AST ALT Alkaline Phosphata se Ammonia Troponin T Baselin e Total Protein Albumin Globulin Lipase Urine Color Yellow (Yellow) Urine Appearance Clear (CLEAR) Urine pH 7 (5-7) Ur Specific Gravit y 1.005 (1.005-1.030) Urine Protein Neg (Negative) Urine Glucose (UA) Norm (Normal) Urine Ketones Negative (Negative) Urine Blood Neg (Negative) Urine Nitrate Negative (Negative) Urine Bilirubin Neg (Negative) Urine Urobilinogen Norm mg/dL mg/dL (Negative) Ur Leukocyte Kristy ase Negative (Negative) Ur Random Sodium 68 mmol/L mmol/L Ur Random Potassiu m 26 mmol/L mmol/L Ur Random Chloride 58 mmol/L mmol/L Urine Creatinine 42 mg/dL mg/dL (39-259) Salicylates Acetaminophen 09/01/21 09/01/21 09/01/21 13:50 13:50 13:50 WBC 4.5 10^3/uL 10^3/ uL (4.0-10.0) RBC 2.90 10^6/uL L 10 ^6/uL (4.1-5.3) Hgb 9.2 g/dL L g/dL (11.7-16.6) Hct 27.4 % L % (42.0-52.0) MCV 94.5 fl H fl (80-94) MCH 31.7 pg pg (28.0-34.0) MCHC 33.6 g/dL g/dL (30.0-36.0) RDW 15.5 % H % (12.1-15.1) Plt Count 169 10^3/cmm 10^3 /cmm (130-400) MPV 8.7 fL fL (7.4-10.4) Neut % (Auto) 67.6 % % Lymph % (Auto) 13.7 % % Treasure % (Auto) 15.4 % % Eos % (Auto) 2.2 % % Baso % (Auto) 0.9 % % Neut # (Auto) 3.07 10^3/uL 10^3 /uL (1.8-7.7) Lymph # (Auto) 0.6 10^3/uL L 10^ 3/uL (0.8-4.8) Treasure # (Auto) 0.7 10^3/uL 10^3/ uL (0.2-0.9) Eos # (Auto) 0.1 10^3/uL 10^3/ uL (0.0-0.8) Baso # (Auto) 0.0 10^3/uL 10^3/ uL (0.0-0.1) Nucleated RBC % (a uto) 0 % % Nucleated RBCs # 0.0 /100WBC /100W BC Sodium 131 mmol/L L mmol /L (136-145) Potassium 4.5 mmol/L mmol/L (3.5-5.1) Chloride 93 mmol/L L mmol/ L (98-107) Carbon Dioxide 22 mmol/L mmol/L (22-29) Anion Gap 20.5 H (5-19) BUN 38 mg/dL H mg/dL (6-20) Creatinine 2.5 mg/dL H mg/dL (0.7-1.2) GFR Calculation 26.8 mL/min L mL/ min (90-130) Glucose 97 mg/dL mg/dL (65-115) POC Glucose Calculated Osmolal ity 281 mOsm/kg L mOs m/kg (285-295) Calcium 8.4 mg/dL L mg/dL (8.5-10.5) Magnesium 1.9 mg/dL mg/dL (1.7-2.3) Total Bilirubin 0.7 mg/dL mg/dL (0.15-1.2) AST 20 U/L U/L (0-40) ALT 8 U/L U/L (0-41) Alkaline Phosphata se 106 IU/L IU/L (40-130) Ammonia Troponin T Baselin e 57 ng/L H ng/L (0-15) Total Protein 6.5 g/dL L g/dL (6.6-8.7) Albumin 3.1 g/dL L g/dL (3.5-5.2) Globulin 3.4 g/dL g/dL (1.3-4.6) Lipase 18 U/L U/L (13-60) Urine Color Urine Appearance Urine pH Ur Specific Gravit y Urine Protein Urine Glucose (UA) Urine Ketones Urine Blood Urine Nitrate Urine Bilirubin Urine Urobilinogen Ur Leukocyte Kristy ase Ur Random Sodium Ur Random Potassiu m Ur Random Chloride Urine Creatinine Salicylates < 0.3 mg/dL L mg/ dL (3-10) Acetaminophen < 5.0 ug/mL L ug/ mL (10-30) 09/01/21 14:50 WBC RBC Hgb Hct MCV MCH MCHC RDW Plt Count MPV Neut % (Auto) Lymph % (Auto) Treasure % (Auto) Eos % (Auto) Baso % (Auto) Neut # (Auto) Lymph # (Auto) Treasure # (Auto) Eos # (Auto) Baso # (Auto) Nucleated RBC % (a uto) Nucleated RBCs # Sodium Potassium Chloride Carbon Dioxide Anion Gap BUN Creatinine GFR Calculation Glucose POC Glucose Calculated Osmolal ity Calcium Magnesium Total Bilirubin AST ALT Alkaline Phosphata se Ammonia 115 umol/L H umol /L (16-60) Troponin T Baselin e Total Protein Albumin Globulin Lipase Urine Color Urine Appearance Urine pH Ur Specific Gravit y Urine Protein Urine Glucose (UA) Urine Ketones Urine Blood Urine Nitrate Urine Bilirubin Urine Urobilinogen Ur Leukocyte Kristy ase Ur Random Sodium Ur Random Potassiu m Ur Random Chloride Urine Creatinine Salicylates Acetaminophen Discharge Plan Discharge Patient Disposition: Admitted As Inpatient Admit Provider: Sourav Meyer Clinical Impression: Encephalopathy, hepatic, Altered mental status Condition: Stable Coding Level of Care Code 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
[2021-09-01 12:54] LABS: Glucose Point of Care 101 mg/dL (70-110)
--- NOTE | 2021-09-01 12:56 | ECG_ITS ---
[facility] Test Date: 2021-09-01 Pat Name: Yosvany Soto Department: Room: Gender: Male Physical Therapy Technician: : 1965 Requested By: Mercy Larios Order Number: [id number] Reading MD: TEDDY HOLLEY Measurements Intervals [place] Rate: 121 P: ND: QRS: 97 QRSD: 90 T: 16 QT: 343 QTc: 487 Interpretive Statements ATRIAL FIBRILLATION WITH RAPID VENTRICULAR RESPONSE BORDERLINE RIGHT AXIS DEVIATION [QRS AXIS > 90] LOW QRS VOLTAGE [QRS DEFLECTION < 0.5/1.0 mV IN LIMB/CHEST LEADS] ANTEROSEPTAL MYOCARDIAL INFARCTION , PROBABLY OLD [40+ ms Q WAVE IN V1-V4] Compared to ECG 05/24/2021 14:17:52 Low QRS voltage now present Intraventricular conduction delay no longer present Myocardial infarct finding still present Electronically Signed On 09-02-2021 19:59:02 CONE BAKER MACHINE by TEDDY HOLLEY [email or web address]
--- NOTE | 2021-09-01 12:56 | XRR_ITS ---
PROCEDURE INFORMATION: Exam: XR Chest Exam date and time: 09/01/2021 12:56 PM Age: 56 years old Clinical indication: Other: Weakness, AMS TECHNIQUE: Imaging protocol: XR of the chest. Views: 1 view. COMPARISON: CT chest abd pel wo con 05/26/2021 10:19 AM FINDINGS: Lungs: Unremarkable. No consolidation. Pleural spaces: Trace left pleural effusion. Heart/Mediastinum: Cardiomegaly. Bones/joints: Unremarkable. XR/XR chest 1V portable [id number] IMPRESSION: 1. Cardiomegaly. 2. Trace left pleural effusion.
--- NOTE | 2021-09-01 12:56 | CTR_ITS ---
PROCEDURE INFORMATION: Exam: CT Head Without Contrast Exam date and time: 09/01/2021 12:56 PM Age: 56 years old Clinical indication: Altered mental status/memory loss; Additional info: AMS TECHNIQUE: Imaging protocol: Computed tomography of the head without contrast. Radiation optimization: All CT scans at this facility use at least one of these dose optimization techniques: automated exposure control; mA and/or kV adjustment per patient size (includes targeted exams where dose is matched to clinical indication); or iterative reconstruction. COMPARISON: CT head wo con* [id number] 02/11/2021 1:09 PM RADIATION DOSE METRICS: Total DLP (mGy-cm): 1566.22 FINDINGS: Brain: Symmetric prominence of the frontal sulci. No acute cortical infarct, mass effect, or intracranial hemorrhage. Cerebral ventricles: Normal configuration of the ventricles. Paranasal sinuses: No sinus fluid. Mastoid air cells: No mastoid effusion. Vasculature: Vascular and dural calcifications. Bones/joints: No acute calvarial pathology. Old left orbital floor fracture. Soft tissues: Unremarkable soft tissues. CT/CT head wo con* [id number] IMPRESSION: No acute intracranial pathology.
[2021-09-01 13:58] LABS: Basophils % 0.9 %; Eosinophils # 0.1 10^3/uL (0.0-0.8); Eosinophils % 2.2 %; Hematocrit 27.4 % (42.0-52.0); Hemoglobin 9.2 g/dL (11.7-16.6); Lymphocytes # 0.6 10^3/uL (0.8-4.8); Lymphocytes % 13.7 %; Mean Corpuscular HGB Conc 33.6 g/dL (30.0-36.0); Mean Corpuscular Hemoglobin 31.7 pg (28.0-34.0); Mean Corpuscular Volume 94.5 fl (80-94); Mean Platelet Volume 8.7 fL (7.4-10.4); Monocytes # 0.7 10^3/uL (0.2-0.9); Monocytes % 15.4 %; Neutrophils # 3.07 10^3/uL (1.8-7.7); Neutrophils % 67.6 %; Nucleated Red Blood Cells % 0 %; Platelet Count 169 10^3/cmm (130-400); Red Cell Distribution Width 15.5 % (12.1-15.1); White Blood Count 4.5 10^3/uL (4.0-10.0)
[2021-09-01] MEDS: sodium chloride 0.9% 1,000 ML 999 ML IV (14:04)
[2021-09-01 14:07] LABS: Add Urine Microscopic? NO; Charge for UA Resulting for Rev
[2021-09-01 14:08] LABS: Bilirubin Urine Neg (Negative); Blood Urine Neg (Negative); Glucose Urine UA Norm (Normal); Ketones Urine Negative (Negative); Leukocyte Esterase Urine Negative (Negative); Nitrate Urine Negative (Negative); Protein Urine Neg (Negative); Specific Gravity, Urine 1.005 (1.005-1.030); Urine Appearance Clear (CLEAR); Urine Color Yellow (Yellow); Urobilinogen Urine Norm (Negative); pH Urine 7 (5-7)
[2021-09-01 14:17] LABS: Alanine Aminotransferase 8 U/L (0-41); Albumin Level 3.1 g/dL (3.5-5.2); Alkaline Phosphatase 106 IU/L (40-130); Anion Gap 20.5 (5-19); Aspartate Amino Transferase 20 U/L (0-40); Blood Urea Nitrogen 38 mg/dL (6-20); Calcium 8.4 mg/dL (8.5-10.5); Carbon Dioxide 22 mmol/L (22-29); Chloride 93 mmol/L (98-107); Globulin 3.4 g/dL (1.3-4.6); Glomerular Filtration Rate 26.8 mL/min (90-130); Glucose 97 mg/dL (65-115); Lipase 18 U/L (13-60); Magnesium 1.9 mg/dL (1.7-2.3); Osmolality Calculated 281 mOsm/kg (285-295); Potassium 4.5 mmol/L (3.5-5.1); Sodium 131 mmol/L (136-145); Total Bilirubin 0.7 mg/dL (0.15-1.2); Total Protein 6.5 g/dL (6.6-8.7); Troponin(5th) Baseline 57 ng/L (0-15)
[2021-09-01 14:18] LABS: Acetaminophen < 5.0 ug/mL (10-30); Salicylate < 0.3 mg/dL (3-10)
--- NOTE | 2021-09-01 14:30 | PC.NURSE ---
RHINO ROCKETS PLACED BY DR ERNANDEZ ON 09/01/21.
[2021-09-01 15:20] LABS: Ammonia 115 umol/L (16-60)
[2021-09-01] MEDS: oxymetazoline 0.05% Nasal Spray 15 mL 2 SPRAY NOSTRIL-B (16:01)
[2021-09-01] MEDS: cetacaine Spray 5 gm Can 1 SPRAY TOPICAL (16:01)
--- NOTE | 2021-09-01 16:04 | PC.NURSE ---
ATTEMPTED TO PLACE NG TUBE. CETACAINE APPLIED TO PATIENT NOSTRILS. BEFORE ATTEMPTING INSERTION A SECOND TIME, PATIENT NOSE BEGAN TO BLEED. PATIENT BEGAN TO SPIT UP LARGE AMOUNTS OF BLOOD AND NOSE BEGIN TO DRIP. PROVIDER NOTIFIED OF CHANGES. AFRIN USED BY GLEN WEEMS. EPISTAXIS SLOWED, BUT CONTINUED. NOSE CLAMP APPLIED, PROVIDER NOTIFIED OF CHANGES.
[2021-09-01] MEDS: lactulose oral liq 20 gm/30 mL UDC 30 GM PO (16:46)
--- NOTE | 2021-09-01 17:23 | P.HP_ITS ---
Providers/Chief Complaint Primary Care Provider: Yosvany Segovia MD Chief Complaint: GENERAL WEAKNESS/ POSSIBLY DEHYDRATED History of Present Illness Yosvany Soto is a 56 year old male with PMH chronic liver disease, cirrhosis, chronic hyponatremia with recurrent hospital admissions, hepatorenal syndrome, bacterial peritonitis, s/p peritoneal catheter for recurrent ascites removed on 05/29 due to recurrent bacterial peritonitis, history of esophageal varices, chronic alcohol abuse, noncompliance presented to the ER today because of worsening weakness for 2 days. As per the mother patient has also been getting more confused since today morning. Today morning when he was walking he fell and hit his left hip. He denied any injury to the head. As per the mother patient has actually been doing well since the discharge and has not been hospitalized over 3 months. He has followed up with his distribution technician at [facility]. Mother also states patient has been complaining of occasional difficulty in passing urine for last 2 to 3 days. Patient states he is not taking his lactulose as he needs to because that keeps him diarrhea. Blood work in the ER showed a white no 4.5, hemoglobin of 9.2, platelet of 169, sodium of 131, chloride of 93, BUN of 38, creatinine of 2.5, AST/ALT of 20/8, ammonia of 115, UA negative for any signs of infection. In the ER NG tube placement was tried after which patient started having epistaxis and my examination patient has bilateral Rhino Rocket's present. Patient is co mfortable asking for Rhino Rocket to be removed but is current with occasional confusion. Review of Systems General: Reports: 10 or more systems reviewed and unremarkable except in HPI and below Const: Denies: fever(s), chills, body aches, change in appetite, change in weight, malaise, night sweats, diaphoresis, change in sleep pattern, daytime sleepiness or snoring Eyes: Denies: change in vision, blurry vision, photophobia, eye discomfort or eye discharge ENMT: Denies: throat pain, enlarged tonsils, hoarseness, mouth pain, oral sores, dry mouth, tinnitus, nasal congestion or post nasal drip Card: Denies: chest pain, palpitations, irregular heart rhythm, edema, swelli ng of feet/ankles, lightheadedness, syncope, pre-syncope, dyspnea on exertion, orthopnea, leg pain with exertion or acrocyanosis Resp: Denies: dyspnea, productive cough, non-productive cough, wheezing, stridor, pain on inspiration, change in phlegm color, hemoptysis or chest congestion GI: Denies: abdominal pain, nausea, vomiting, hematemesis, coffee ground emesis, dysphagia, heartburn, diarrhea, constipation, bloating, GI cramping, change in bowel habits, pain on defecation, hematochezia or melena : Denies: flank pain, difficulty urinating, dysuria, urinary frequency, urinary urgency, urinary hesitancy, urinary dribbling, difficulty starting urination, change in urine stream, nocturia or hematuria Musc: Denies: neck pain, back pain, extremity pain, joint pain, joint swelling, joint redness, joint stiffness or limited range of motion Neuro: Denies: headache(s), numbness in extremities, weakness in extremities, sensory changes, lack of coordination, difficulty walking, frequent falls, dizziness, vertigo, confusion, Slurred speech present, difficulty communicating thoughts or seizure-like activity Psych: Denies: anxiety, depression, mood swings, panic attacks, hopelessness or irritability Endo: Denies: polyuria, polydipsia, tired all the time, cold intolerance, excessive sweating, flushing or heat intolerance Avinash/Lymph: Denies: easy bruising or easy bleeding All/Imm: Denies: tongue swelling, facial swelling or acute wheezing Medications/Allergies Home Medications Medication Instructions Recorded Confirmed Last Taken Type vitamin B complex 1 tab PO DAILY@16 01/04/20 09/01/21 08/31/21 History tramadol 100 mg PO DAILY PRN 05/05/20 09/01/21 07/09/21 History folic acid 1 mg PO DAILY@10 08/23/20 09/01/21 08/31/21 History [place] boot #1 ea 09/01/20 09/01/21 Unknown Rx fluticasone propionate 1 - 2 spray INTRANASAL DAILY PRN 09/08/20 09/01/21 07/09/21 History Eliezer Walker #1 ea NS 10/02/20 09/01/21 Unknown Rx albuterol sulfate 2 inh INHALATION Q4H PRN 12/11/20 09/01/21 07/09/21 History PreserVision AREDS 1 cap PO DAILY 05/09/01/21 08/31/21 History ferrous sulfate 27 mg PO DAILY 02/11/21 09/01/21 08/31/21 History [place] Boot to the left and an #1 ea 03/23/21 09/01/21 Unknown Rx even-up applied to the right foot diltiazem HCl 120 mg 120 mg PO QAM 04/24/21 09/01/21 08/31/21 History capsule,extended release 24 hr tiotropium bromide 2.5 2 puff INHALATION DAILY #4 g 05/02/21 09/01/21 08/31/21 Rx mcg/actuation mist for inhalation alfuzosin 10 mg PO DAILY@13 05/24/21 09/01/21 08/31/21 History cetirizine [Zyrtec] 10 mg PO DAILY PRN 05/24/21 09/01/21 07/09/21 History lactulose 15 ml PO TID PRN 05/24/21 09/01/21 07/09/21 History levothyroxine 50 mcg tablet 1 tab PO DAILY 08/15/21 09/01/21 08/31/21 History rifaximin 550 mg tablet 1 tab PO DAILY 08/15/21 09/01/21 08/31/21 History furosemide 60 mg PO BID 09/01/21 09/01/21 08/31/21 History meloxicam 15 mg PO DAILY 09/01/21 09/01/21 08/31/21 History midodrine 10 mg PO TID 09/01/21 09/01/21 08/31/21 History pantoprazole 40 mg PO DAILY 09/01/21 09/01/21 08/31/21 History potassium chloride 20 meq PO BID 09/01/21 09/01/21 08/31/21 History spironolactone 50 mg PO DAILY 09/01/21 09/01/21 08/31/21 History Allergies Allergy/AdvReac Type Severity Reaction Status Date / Time Penicillins Allergy ALGY-Difficulty Verified 08/15/21 15:20 Breathing Sulfa (Sulfonamide Allergy Unknown Verified 08/15/21 15:20 Antibiotics) PFSH Acute PFSH: Medical History (Updated 09/01/21 @ 17:37 by Sourav Meyer MD) Acute dyspnea Acute encephalopathy Acute hypokalemia Acute hyponatremia Alcoholic cirrhosis of liver with ascites Ascites Ascites due to alcoholic cirrhosis Ataxia Atrial fibrillation and flutter Echocardiogram done in 2020 shows an EF of 40 to 45% with hypokinetic septum, anteroseptum and inferior wall, biatrial enlargement Atrial fibrillation with RVR BPH loc w urin obs/LUTS C. difficile diarrhea Charcot's arthropathy Charcot's joint of left foot Chest pain Pleuritic chest pain: Resolved; CHF (congestive heart failure), NYHA class III Chronic hyponatremia Chronic hyponatremia Dyspnea on exertion End-stage liver disease Erectile dysfunction ETOH abuse Ex-smoker Fracture of fourth metatarsal bone of left foot Fracture of second metatarsal bone of left foot Fracture of third metatarsal bone of left foot Hepatorenal syndrome History of abdominal paracentesis Hx of esophageal varices Hyperkalemia Hyponatremia Hyponatremia with excess extracellular fluid volume Laceration of left foot Neuropathy Non-pressure chronic ulcer of other part of left foot limited to breakdown of skin Occult blood in stools Peritoneal dialysis catheter in situ Peyronie disease Pleural effusion Pleural effusion associated with hepatic disorder Pneumonia PVD (peripheral vascular disease) Upper gastrointestinal hemorrhage due to gastritis Surgical History H/O colonoscopy 10-12 yrs H/O esophagogastroduodenoscopy History of tonsillectomy Hx of umbilical hernia repair Hx of vasectomy Status post surgery (07/05/20) peritoneal catheter for ascites Family History Grandfather CAD (coronary artery disease) Grandmother CAD (coronary artery disease) Cancer Father Cancer Denies family history of Anesthesia complication Bleeding disorder Social History Quit status (tobacco): has quit using tobacco Year quit tobacco: 2014 less than a [id number] Second hand smoke exposure: No Smoking risk assessment/counseling performed?: Yes Alcohol intake: current Alcohol intake frequency: 3 or more drinks per day Alcohol type: beer Adopted: No Caregiver/support person: Yes Lives independently: Yes Household members: children Marital status: Current occupational status: unemployed Pets and animals: Yes History of recent travel: No Current gender identity: Male Vitals/I&O/Wt Last Vital Signs Temp 97.8 F 09/01/21 12:51 Pulse 100 09/01/21 16:46 Resp 16 09/01/21 16:46 BP 141/89 09/01/21 16:46 Pulse Ox 97 09/01/21 14:27 09/01/21 09/01/21 09/01/21 06:59 14:59 22:59 Intake Total 1000 / 1000 Balance 1000 / 1000 Weight last 48 hrs Weight 126.099 kg Physical Exam Narrative: EXAM NARRATIVE: General: No acute distress, AO x 2-3, slow to respond, pale, dehydrated, was chronically sick appearing HEENT: PERRLA, pupils bilaterally equal and reactive Chest: Normal vesicular breath sounds, no added sounds, equal good air entry bilaterally CVS: S1-S2 irregularly irregular, no murmurs, no tachycardia, no gallops, no rubs Abdomen: Soft, nontender, mildly distended, no organomegaly, bowel sounds present, redness present in the lower quadrant up to the navel area, peritoneal catheter present without any sign of granulation Neuro: No focal deficits, no facial deformity, AO x3, power 5/5 in all limbs Urinary Catheter Management^: Weir: Cath Placed During This Visit: yes Urinary Catheter Date of Insertion: 09/01/21 Urinary Catheter Time of Insertion: 14:00 Data : 09/01/21 13:50 09/01/21 13:50 A&P Assessment and plan (1) Encephalopathy, hepatic: Status: Acute (2) Altered mental status: Status: Acute (3) Hepatorenal syndrome: Status: Acute (4) Anemia: Status: Acute (5) A-fib: Status: Acute (6) BPH loc w urin obs/LUTS: Status: Acute (7) Epistaxis due to trauma: Status: Acute Additional A&P Information Altered mental status: Most likely secondary to hepatic encephalopathy: Less likely infectious. No white count. Denies any abdominal pain. No tenderness. UA negative for any signs of infection. Lactulose 30 mg every 6 hourly. Will continue at least for the patient has 2-3 good bowel movements daily. Repeat ammonia levels tomorrow morning. Continue with home dose of rifaximin. Hepatorenal syndrome: Continue with home dose of spironolactone, rifaximin. Lactulose as above. For now hold off on Lasix. Will reassess tomorrow morning and dose accordingly. No IV fluids. Continue other chronic medications including Cardizem, folic acid, Synthroid, midodrine, Protonix, potassium, Spiriva. History of anemia: Hemoglobin at baseline. A. fib: Telemetry. Cardizem. Epistaxis: Traumatic while trial of NG tube. Has bilateral Rhino Rocket. Start on Augmentin as per creatinine clearance. We will reassess tomorrow morning. DC Weir catheter tomorrow morning. Full code. Renal nondialysis cardiac diet. Fluid restriction up to 1500 cc. Hold off on DVT prophylaxis given epistaxis. SCDs. Protonix for PUD prophylaxis. Attestations Medical Necessity Statement*: Admission for more than 2 midnights for management of altered mental status secondary to hepatic encephalopathy in setting of hepatorenal syndrome Time Spent in Patient Care: Greater than 35 minutes (>than 50% of time spent in counselling and/or direct pt care on unit) . Coding Level of Care Code Acute Cloth Neutralizer for [facility] Fwd Diagnoses Encephalopathy, hepatic K72.90 Altered mental status R41.82 Hepatorenal syndrome K76.7 Anemia D64.9 A-fib I48.91 BPH loc w urin obs/LUTS N40.1 Epistaxis due to trauma R04.0
--- NOTE | 2021-09-01 17:39 | CTR_ITS ---
PROCEDURE INFORMATION: Exam: CT Abdomen And Pelvis Without Contrast Exam date and time: 09/01/2021 5:39 PM Age: 56 years old Clinical indication: Other: Ascites; Prior surgery; Surgery date: 6+ months; Surgery type: Peritoneal catheter; Additional info: Ascitis TECHNIQUE: Imaging protocol: Computed tomography of the abdomen and pelvis without contrast. Radiation optimization: All CT scans at this facility use at least one of these dose optimization techniques: automated exposure control; mA and/or kV adjustment per patient size (includes targeted exams where dose is matched to clinical indication); or iterative reconstruction. COMPARISON: CT chest abd pel wo con 05/26/2021 10:19 AM RADIATION DOSE METRICS: Total DLP (mGy-cm): 1397.15 FINDINGS: Lungs: Left lower lobe atelectasis versus infiltrate. Pleural spaces: Small left pleural effusion. Heart: Coronary artery atherosclerotic calcifications. Liver: Cirrhotic liver. Gallbladder and bile ducts: Normal. No calcified stones. No ductal dilation. Pancreas: Normal. No ductal dilation. Spleen: Normal. No splenomegaly. Adrenal glands: Normal. No mass. Kidneys and ureters: Normal. No hydronephrosis. Stomach and bowel: Prominent fluid in the small bowel without dilation may reflect an enteritis. Diverticulosis without diverticulitis. Appendix: No evidence of appendicitis. Intraperitoneal space: Ascites in the upper abdomen. Vasculature: Unremarkable. No abdominal aortic aneurysm. Lymph nodes: Mildly enlarged lymph nodes suspected near the gastroesophageal junction measuring up to 15 mm suspected, nonspecific Urinary bladder: Weir catheter in the urinary bladder. Reproductive: Unremarkable as visualized. Bones/joints: Unremarkable. No acute fracture. Soft tissues: Unremarkable. CT/CT abdomen pelvis wo con [id number] IMPRESSION: 1. Prominent fluid in the small bowel without dilation may reflect an enteritis. 2. Mildly enlarged lymph nodes suspected near the gastroesophageal junction measuring up to 15 mm suspected, nonspecific 3. Small left pleural effusion. 4. Left lower lobe atelectasis versus infiltrate. 5. Coronary artery atherosclerotic calcifications. 6. Cirrhotic liver. 7. Ascites in the upper abdomen. 8. Weir catheter in the urinary bladder. 9. Diverticulosis without diverticulitis.
[2021-09-01 18:08] LABS: Potassium, Radom Urine 26 mmol/L; Urine Creatinine 42 mg/dL (39-259); Urine Random Chloride 58 mmol/L; Urine Random Sodium 68 mmol/L
[2021-09-01 18:45] LABS: Troponin 5 2HR 55.71 ng/L (0-15)
[2021-09-01 18:55] LABS: Troponin 5 2HR Delta -1.29 ABS# (0-10)
--- NOTE | 2021-09-01 18:56 | ECG_ITS ---
[facility] Test Date: 2021-09-01 Pat Name: Yosvany Soto Department: Room: Gender: Male Play Writer: : 1965 Requested By: Mercy Larios Order Number: [id number] Reading MD: TEDDY HOLLEY Measurements Intervals [place] Rate: 121 P: RI: QRS: 90 QRSD: 98 T: -8 QT: 337 QTc: 478 Interpretive Statements ATRIAL FIBRILLATION WITH RAPID VENTRICULAR RESPONSE LOW QRS VOLTAGE [QRS DEFLECTION < 0.5/1.0 mV IN LIMB/CHEST LEADS] SEPTAL MYOCARDIAL INFARCTION , PROBABLY OLD [40+ ms Q WAVE IN V1/V2] Compared to ECG 09/01/2021 13:42:32 No significant changes Electronically Signed On 09-02-2021 19:59:48 SCRAP BALLER by TEDDY HOLLEY [id number]
[2021-09-01 20:03] LABS: Troponin 5 6HR 54.88 ng/L (0-15); Troponin 5 6HR Delta -2.12 ng/L (0-12)
--- NOTE | 2021-09-01 22:58 | PC.NURSE ---
2114 Called [facility] funeral location manager Dr. Watson as patient is stating he can not swallow and will not take any medication until we remove the things in his nose. Dr. Watson advised to chart patient refusal and leave Rhino bullets in place.
[2021-09-02] MEDS: TRAMadol 50 mg Tablet 100 MG PO (01:09)
[2021-09-02] MEDS: lactulose oral liq 20 gm/30 mL UDC 30 GM PO ×5 (01:09→18:23)
[2021-09-02 03:20] VITALS: BP 139/76; PULSE 109; RESP 16; TEMP 36.5; O2SAT 98
[2021-09-02] MEDS: dilTIAZem ER (24HR) 120 mg Capsule PO (05:07)
[2021-09-02 05:52] LABS: Basophils # 0.1 10^3/uL (0.0-0.1); Basophils % 0.7 %; Eosinophils # 0.2 10^3/uL (0.0-0.8); Eosinophils % 3.1 %; Hematocrit 26.6 % (42.0-52.0); Hemoglobin 8.9 g/dL (11.7-16.6); Lymphocytes # 1.2 10^3/uL (0.8-4.8); Lymphocytes % 17.4 %; Mean Corpuscular HGB Conc 33.5 g/dL (30.0-36.0); Mean Corpuscular Hemoglobin 31.3 pg (28.0-34.0); Mean Corpuscular Volume 93.7 fl (80-94); Mean Platelet Volume 9.1 fL (7.4-10.4); Monocytes # 1.1 10^3/uL (0.2-0.9); Monocytes % 16.1 %; Neutrophils # 4.27 10^3/uL (1.8-7.7); Neutrophils % 62.6 %; Nucleated Red Blood Cells % 0 %; Platelet Count 182 10^3/cmm (130-400); Red Blood Count 2.84 10^6/uL (4.1-5.3); Red Cell Distribution Width 15.6 % (12.1-15.1); White Blood Count 6.8 10^3/uL (4.0-10.0)
[2021-09-02 06:23] LABS: Alanine Aminotransferase 8 U/L (0-41); Albumin Level 2.7 g/dL (3.5-5.2); Alkaline Phosphatase 76 IU/L (40-130); Anion Gap 18.4 (5-19); Aspartate Amino Transferase 21 U/L (0-40); Blood Urea Nitrogen 40 mg/dL (6-20); Calcium 8.5 mg/dL (8.5-10.5); Carbon Dioxide 20 mmol/L (22-29); Chloride 99 mmol/L (98-107); Globulin 3.5 g/dL (1.3-4.6); Glucose 90 mg/dL (65-115); Osmolality Calculated 285 mOsm/kg (285-295); Potassium 4.4 mmol/L (3.5-5.1); Sodium 133 mmol/L (136-145); Total Bilirubin 0.7 mg/dL (0.15-1.2); Total Protein 6.2 g/dL (6.6-8.7)
[2021-09-02 07:32] LABS: Phosphorus 3.4 mg/dL (2.5-4.5); Thyroid Stimulating Hormone 3.75 uIU/mL (0.27-4.20)
[2021-09-02 07:53] VITALS: BP 146/80; PULSE 96; RESP 16; TEMP 36.4; O2SAT 98
--- NOTE | 2021-09-02 10:06 | PC.NURSE ---
attempted to give medication to patient multiple times (x5) since 0800, pt refused medication each time
[2021-09-02] MEDS: sodium chloride 0.9% 1,000 ML 50 ML IV (11:42)
[2021-09-02 12:00] VITALS: BP 124/80; PULSE 103; RESP 18; TEMP 36.4; O2SAT 98
--- NOTE | 2021-09-02 12:03 | PC.NURSE ---
Per wait until tomorrow 09/03/21 to remove cath.
--- NOTE | 2021-09-02 14:08 | P.PN_ITS ---
Subjective Subjective: Interval history: No acute events overnight. Sitter at bedside. Patient looks more confused today. Rhino Rocket in place. Has remained hemodynamically stable and afebrile. Looks like he has had 2 bowel movements since admission. Took lactulose today morning but refused last night. Vitals/I&O/Wt Last Vital Signs Temp 97.6 F 09/02/21 12:00 Pulse 103 H 09/02/21 12:00 Resp 18 09/02/21 12:00 BP 124/80 09/02/21 12:00 Pulse Ox 98 09/02/21 12:00 09/01/21 09/02/21 09/02/21 22:59 06:59 14:59 Intake Total 1000 / 999 Output Total 1999 2450 / 2450 Balance 1000 / 999 -1999 / -2450 / -2450 Weight last 48 hrs Weight 126.099 kg Physical Exam Narrative: EXAM NARRATIVE: General: No acute distress, AO x 2-3, slow to re spond, pale, dehydrated, was chronically sick appearing HEENT: PERRLA, pupils bilaterally equal and reactive Chest: Normal vesicular breath sounds, no added sounds, equal good air entry bilaterally CVS: S1-S2 irregularly irregular, no murmurs, no tachycardia, no gallops, no rubs Abdomen: Soft, nontender, mildly distended, no organomegaly, bowel sounds present, redness present in the lower quadrant up to the navel area, peritoneal catheter present without any sign of granulation Neuro: No focal deficits, no facial deformity, AO x3, power 5/5 in all limbs Urinary Catheter Management^: Weir: Cath Placed During This Visit: yes Reason for Continuing Indwelling Catheter: Other Urinary Catheter Date of Insertion: 09/01/21 Urinary Catheter Time of Insertion: 14:00 Data : 09/02/21 05:26 09/02/21 05:26 Micro: Microbiology 09/01/21 13:11 Bacterial Antigens - Final Urine Kidney 09/01/21 14:50 Blood Culture - Preliminary Blood SPECIMEN COLLECTED 09/01/21 14:55 Blood Culture - Preliminary Blood SPECIMEN COLLECTED A&P Assessment and plan (1) Encephalopathy, hepatic: Status: Acute (2) Altered mental status: Status: Acute (3) Hepatorenal syndrome: Status: Acute (4) Anemia: Status: Acute (5) A-fib: Status: Acute (6) BPH loc w urin obs/LUTS: Status: Acute (7) Epistaxis due to trauma: Status: Acute Additional A&P Information Altered mental status: Most likely secondary to hepatic encephalopathy: Less likely infectious. No white count. Denies any abdominal pain. No tenderness. UA negative for any signs of infection. Lactulose 30 mg every 6 hourly. Will continue at least for the patient has 2-3 good bowel movements daily. Repeat ammonia levels tomorrow morning. Continue with home dose of rifaximin. Hepatorenal syndrome: Continue with home dose of spironolactone, rifaximin. Lactulose as above. For now hold off on Lasix. Will reassess tomorrow morning and dose accordingly. No IV fluids. Continue other chronic medications including Cardizem, folic acid, Synthroid, midodrine, Protonix, potassium, Spiriva. History of anemia: Hemoglobin at baseline. A. fib: Telemetry. Cardizem. Epistaxis: Traumatic while trial of NG tube. Has bilateral Rhino Rocket. Start on Augmentin as per creatinine clearance. We will reassess tomorrow morning. SAMI on CKD: Creatinine mildly elevated. 2.5. Trending of 2.3. Most likely secondary dehydration. Urine lites appreciated. Medical reconciliation done for nephrotoxic drugs. Gentle IV hydration with normal saline at 50 cc/h for 1 bag. DC Weir catheter tomorrow morning. Full code. Renal nondialysis cardiac diet. Fluid restriction up to 1500 cc. Hold off on DVT prophylaxis given epistaxis. SCDs. Protonix for PUD prophylaxis. Plan for day: Start on gentle IV hydration with normal saline 50 cc/h. Continue lactulose. Repeat ammonia levels tomorrow morning. Will request ER physician for possible removal of Rhino Rocket. Attestations Medical Necessity Statement*: Requires further hospitalization for management of altered mental status secondary to hepatic encephalopathy in setting of hepatorenal syndrome, epistaxis Time Spent in Patient Care: Greater than 35 minutes (>than 50% of time spent in counselling and/or direct pt care on unit) . Coding Level of Care Code Acute Pipe And Test Supervisor for [facility] Diagnoses Encephalopathy, hepatic K72.90 Altered mental status R41.82 Hepatorenal syndrome K76.7 Anemia D64.9 A-fib I48.91 BPH loc w urin obs/LUTS N40.1 Epistaxis due to trauma R04.0
[2021-09-02 16:00] VITALS: BP 106/78; PULSE 113; RESP 16; TEMP 36.4; O2SAT 99
[2021-09-02 20:00] VITALS: BP 128/89; PULSE 98; RESP 17; TEMP 36.8; O2SAT 99
[2021-09-03] VITALS (7 sets, daily range): BP systolic 116–161; BP diastolic 54–97; PULSE 62–115; RESP 16–20; TEMP 36.6–37.3; O2SAT 94–99
[2021-09-03 04:58] LABS: Basophils # 0.1 10^3/uL (0.0-0.1); Basophils % 0.9 %; Eosinophils # 0.2 10^3/uL (0.0-0.8); Eosinophils % 2.8 %; Hematocrit 24.5 % (42.0-52.0); Hemoglobin 8.1 g/dL (11.7-16.6); Lymphocytes % 12.7 %; Mean Corpuscular HGB Conc 33.1 g/dL (30.0-36.0); Mean Corpuscular Hemoglobin 31.4 pg (28.0-34.0); Mean Platelet Volume 8.7 fL (7.4-10.4); Monocytes % 12.7 %; Neutrophils % 70.6 %; Nucleated Red Blood Cells % 0 %; Platelet Count 181 10^3/cmm (130-400); Red Blood Count 2.58 10^6/uL (4.1-5.3); Red Cell Distribution Width 16.1 % (12.1-15.1); White Blood Count 7.8 10^3/uL (4.0-10.0)
[2021-09-03 05:14] LABS: Ammonia 175 umol/L (16-60)
[2021-09-03 05:19] LABS: Alanine Aminotransferase 10 U/L (0-41); Albumin Level 2.8 g/dL (3.5-5.2); Alkaline Phosphatase 72 IU/L (40-130); Anion Gap 17.4 (5-19); Aspartate Amino Transferase 22 U/L (0-40); Blood Urea Nitrogen 33 mg/dL (6-20); Calcium 8.5 mg/dL (8.5-10.5); Carbon Dioxide 18 mmol/L (22-29); Chloride 104 mmol/L (98-107); Globulin 3.3 g/dL (1.3-4.6); Glomerular Filtration Rate 39.1 mL/min (90-130); Glucose 88 mg/dL (65-115); Osmolality Calculated 287 mOsm/kg (285-295); Potassium 4.4 mmol/L (3.5-5.1); Sodium 135 mmol/L (136-145); Total Bilirubin 0.8 mg/dL (0.15-1.2); Total Protein 6.1 g/dL (6.6-8.7)
[2021-09-03] MEDS: sodium chloride 0.9% 1,000 ML 50 ML IV (06:57)
[2021-09-03] MEDS: folic acid 1 mg Tablet PO (08:42)
[2021-09-03] MEDS: potassium chloride ER 20 mEq Tablet PO ×2 (08:42→16:55)
[2021-09-03] MEDS: midodrine 5 mg TABLET 10 MG PO ×2 (08:42→20:36)
[2021-09-03] MEDS: pantoprazole DR 40 mg Tablet PO (08:42)
[2021-09-03] MEDS: doxycycline 100 mg Tablet PO ×2 (08:42→16:55)
[2021-09-03] MEDS: spironolactone 25 mg Tablet 50 MG PO (08:43)
[2021-09-03] MEDS: levothyroxine 50 mcg Tablet PO (08:43)
[2021-09-03] MEDS: lactulose oral liq 20 gm/30 mL UDC 30 GM PO ×2 (12:19→16:55)
[2021-09-03] MEDS: alfuzosin 10 mg ER Tablet PO (12:19)
--- NOTE | 2021-09-03 20:44 | PC.NURSE ---
Shift report received from Damaris HEBERT. Patient in bed/awake. Denies pain or discomfort. IV patent/NS infusing at 50mL/hr. No other needs voiced at this time.
--- NOTE | 2021-09-03 21:00 | P.PN_ITS ---
Subjective Subjective: Interval history: Awake, alert, trying to eat lunch, confused. Mother at bedside. Vitals/I&O/Wt Last Vital Signs Temp 98.4 F 09/03/21 19:32 Pulse 113 H 09/03/21 19:32 Resp 16 09/03/21 19:32 BP 118/67 09/03/21 19:32 Pulse Ox 97 09/03/21 19:32 09/03/21 09/03/21 09/03/21 06:59 14:59 22:59 Intake Total 1202.5 / 1202.5 360 / 360 Output Total 1280 / 4230 Balance -77.5 / -3027.5 360 / 360 Weight last 48 hrs Weight 124.829 kg Weight 124.829 kg Physical Exam Const: COMMON NORMALS: no acute distress; negative for patient oriented x3 GENERAL APPEARANCE: cooperative NUTRITIONAL APPEARANCE: overweight ORIENTATION/CONSCIOUSNESS: Yes awake HENMT: COMMON NORMALS: oropharynx normal Neck/C-Spine: COMMON NORMALS: no JVD Resp: COMMON NORMALS: normal respiratory effort and clear to auscultation bilaterally AUSCULTATION: clear to auscultation bilaterally Cardio: COMMON NORMALS: no JVD, regular rhythm, S1 normal heart sound present, S2 normal heart sound present and No murmurs present (Cardio) RHYTHM: regular rhythm HEART SOUNDS: S1 normal heart sound present and S2 normal heart sound present GI: COMMON NORMALS: Normal to inspection, nondistended, normoactive bowel sounds present, Soft to palpation and non-tender PALPATION: Yes Soft to palpation Extremity: COMMON NORMALS: no joint enlargement and no pedal edema Neuro: COMMON NORMALS: moves all extremities; negative for patient oriented x3 Skin: COMMON NORMALS: no rashes or lesions noted GENERAL SKIN EXAM: no ra shes or lesions noted Urinary Catheter Management^: Weir: Cath Placed During This Visit: yes Reason for Continuing Indwelling Catheter: Accurate Measurement of Urinary Output in Critically Ill Patients Urinary Catheter Date of Insertion: 09/01/21 Urinary Catheter Time of Insertion: 14:00 Data : 09/03/21 04:46 09/03/21 04:46 Micro: Microbiology 09/01/21 14:50 Blood Culture - Preliminary Blood NEGATIVE TO DATE 09/01/21 14:55 Blood Culture - Preliminary Blood NEGATIVE TO DATE A&P Assessment and plan (1) Encephalopathy, hepatic: Confused. Ammonia worse today. Continue lactulose. Target 3 soft bowel movements a day. Rifaximin. Status: Acute (2) Altered mental status: Status: Acute (3) Hepatorenal syndrome: Improving. Continue midodrine, spironolactone. Hold off further IVF. Status: Acute (4) Anemia: Status: Acute (5) A-fib: Status: Acute (6) BPH loc w urin obs/LUTS: Status: Acute (7) Epistaxis due to trauma: Without recurrence. Empiric doxycycline. Status: Acute Additional A&P Information History of anemia SAMI on CKD: Improving. Hold further IVF. Attestations Medical Necessity Statement*: Continue admission for assessment management of hepatic encephalopathy. Coding Level of Care Code Acute Assistant Administrator for Tay Rust Diagnoses Encephalopathy, hepatic K72.90 Altered mental status R41.82 Hepatorenal syndrome K76.7 Anemia D64.9 A-fib I48.91 BPH loc w urin obs/LUTS N40.1 Epistaxis due to trauma R04.0
[2021-09-03] MEDS: TRAMadol 50 mg Tablet 100 MG PO (23:59)
[2021-09-04] VITALS (7 sets, daily range): BP systolic 110–130; BP diastolic 71–81; PULSE 86–119; RESP 15–19; TEMP 36.5–37.2; O2SAT 94–99
[2021-09-04] MEDS: lactulose oral liq 20 gm/30 mL UDC 30 GM PO ×4 (00:31→18:27)
--- NOTE | 2021-09-04 01:37 | PC.NURSE ---
Patient sleeping at this time/ no s/s of pain or discomfort.
[2021-09-04] MEDS: morphine 4 mg/mL SDV 1 mL 1 MG IVP (01:44)
--- NOTE | 2021-09-04 04:32 | PC.NURSE ---
Patient had requested pain medication from tech/ when this nurse went to offer PRN tylenlol patient was sleeping.
--- NOTE | 2021-09-04 05:41 | PC.NURSE ---
Patient ask tech again for pain medication/ patient is sleeping. Will wake to offer tylenol at this time.
[2021-09-04] MEDS: dilTIAZem ER (24HR) 120 mg Capsule PO (05:43)
[2021-09-04] MEDS: acetaminophen 325 mg Tablet 650 MG PO (05:44)
[2021-09-04 06:14] LABS: Basophils # 0.1 10^3/uL (0.0-0.1); Basophils % 0.9 %; Eosinophils # 0.4 10^3/uL (0.0-0.8); Eosinophils % 5.4 %; Hematocrit 23.4 % (42.0-52.0); Hemoglobin 7.6 g/dL (11.7-16.6); Lymphocytes # 1.1 10^3/uL (0.8-4.8); Lymphocytes % 17.5 %; Mean Corpuscular HGB Conc 32.5 g/dL (30.0-36.0); Mean Corpuscular Hemoglobin 31.3 pg (28.0-34.0); Mean Corpuscular Volume 96.3 fl (80-94); Monocytes % 15.5 %; Neutrophils # 3.94 10^3/uL (1.8-7.7); Neutrophils % 60.4 %; Nucleated Red Blood Cells % 0 %; Platelet Count 167 10^3/cmm (130-400); Red Blood Count 2.43 10^6/uL (4.1-5.3); Red Cell Distribution Width 15.9 % (12.1-15.1); White Blood Count 6.5 10^3/uL (4.0-10.0)
[2021-09-04 06:30] LABS: Ammonia 49 umol/L (16-60)
[2021-09-04 06:34] LABS: Alanine Aminotransferase 11 U/L (0-41); Albumin Level 2.8 g/dL (3.5-5.2); Alkaline Phosphatase 71 IU/L (40-130); Anion Gap 16.5 (5-19); Aspartate Amino Transferase 24 U/L (0-40); Blood Urea Nitrogen 23 mg/dL (6-20); Calcium 8.2 mg/dL (8.5-10.5); Carbon Dioxide 17 mmol/L (22-29); Chloride 107 mmol/L (98-107); Globulin 2.8 g/dL (1.3-4.6); Glomerular Filtration Rate 44.8 mL/min (90-130); Glucose 70 mg/dL (65-115); Osmolality Calculated 284 mOsm/kg (285-295); Potassium 4.5 mmol/L (3.5-5.1); Sodium 136 mmol/L (136-145); Total Bilirubin 0.9 mg/dL (0.15-1.2); Total Protein 5.6 g/dL (6.6-8.7)
[2021-09-04] MEDS: folic acid 1 mg Tablet PO (09:16)
[2021-09-04] MEDS: midodrine 5 mg TABLET 10 MG PO ×3 (09:16→21:28)
[2021-09-04] MEDS: potassium chloride ER 20 mEq Tablet PO ×2 (09:16→18:27)
[2021-09-04] MEDS: spironolactone 25 mg Tablet 50 MG PO (09:17)
[2021-09-04] MEDS: doxycycline 100 mg Tablet PO ×2 (09:17→18:27)
[2021-09-04] MEDS: pantoprazole DR 40 mg Tablet PO (09:17)
[2021-09-04] MEDS: levothyroxine 50 mcg Tablet PO (09:17)
--- NOTE | 2021-09-04 11:20 | PC.CHAP ---
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 account development executive visit [] Patient/Family/Request visit [] Outpatient visit [] Follow-up visit [] Physician referral [] Code/Alert [x] Routine visit [] Staff referral [] Actively dying [] Patient sleeping [] Family support [] [] Out of room [] Palliative care [] [] Receiving care in room [] Pre-surgical visit [] Trauma [] Long length of stay [] ICU visit [] Other: Relational/Emotional Strength [] Patient feels connected with others/family/visitors/staff [] Distress [] Loneliness/isolation [] Abandonment Spirituality of Patient [x] Person of Jana [] Attends Yarsani of their Jana [x] Believes in Prayer [] Reads Bible or Uatsdin materials [] There are Spiritual issues to be addressed Reinforcement Maker Interventions [x] Prayer [x] Active listening [x] Non-anxious presence [x] Spiritual/emotional support [] Crisis/trauma care [] Spiritual counseling [] Bereavement support [] Provided bereavement packet [] Provided Bible/devotional materials [] Provided toy/stuffed animal, coloring book to patient or family member [] Provided Communion [] Anointing/[place] [] Salvation [x] Completed spiritual assessment [] Other: Impact on Illness or Injury [] Angry [] Fearful [] Anxious [] Often cries [] Exhaustion [] Unable to work [] Unable to attend buddhist [] Unable to walk/stand [] Unable to read [] Unable to drive [] Unable to eat/drink [] Unable to sleep [] Unable to be with family [] Patient intubated [] Other: Summary Pt has had several family and friends during hospital stay. Plans to spend Jace with parents if he is out of hospital. Pt says he feels better than when he came in, but he still feels poorly. During visit, he laid back and shut his eyes. He suggested to Reinforcement Maker that I pray for him. Time spent with patient 5m
[2021-09-04] MEDS: TRAMadol 50 mg Tablet 100 MG PO (11:26)
[2021-09-04] MEDS: alfuzosin 10 mg ER Tablet PO (14:03)
--- NOTE | 2021-09-04 19:27 | PC.NURSE ---
Shift report received from Nisha HEBERT. Patient in bed/sleeping. No s/s of pain or discomfort. IV patent/SL. No needs noted at this time.
--- NOTE | 2021-09-04 21:09 | PM.PN ---
Subjective Subjective: Interval history: Today he reports feeling much better. He is much more alert, awake, has gotten up to the commode, although has not been doing much walking. Family very concerned regarding him living only with his son with limited support. Discussed with them consideration [place] [facility], although would have to be [id number] given not covered by insurance as per multiple prior attempts. They state are aware of the very limited coverage. Unable to get home health, discussed consideration of [id number]. We will get PT assessment, may benefit from home exercise program. Otherwise plan for return home. Encouraged to provide continued family support given his chronic progressive debilitating condition. We went over again significant importance of continued lactulose and rifaximin therapy and making sure he has bowel movements daily. Vitals/I&O/Wt Last Vital Signs Temp 98.0 F 09/04/21 19:35 Pulse 88 09/04/21 19:35 Resp 18 09/04/21 19:35 BP 117/71 09/04/21 19:35 Pulse Ox 98 09/04/21 19:35 09/04/21 09/04/21 09/04/21 06:59 14:59 22:59 Intake Total 200 / 920 360 / 360 500 / 860 Output Total 625 / 975 325 / 325 420 / 745 Balance -425 / -55 35 / 35 80 / 115 Weight last 48 hrs Weight 126.053 kg Weight 124.829 kg Weight 124.829 kg Physical Exam Const: COMMON NORMALS: no acute distress and patient oriented x3 GENERAL APPEARANCE: cooperative NUTRITIONAL APPEARANCE: overweight ORIENTATION/CONSCIOUSNESS: Yes awake HENMT: COMMON NORMALS: oropharynx normal Neck/C-Spine: COMMON NORMALS: no JVD Resp: COMMON NORMALS: normal respiratory effort and clear to auscultation bilaterally AUSCULTATION: clear to auscultation bilaterally Cardio: COMMON NORMALS: no JVD, regular rhythm, S1 normal heart sound present, S2 normal heart sound present and No murmurs present (Cardio) RHYTHM: regular rhythm HEART SOUNDS: S1 normal heart sound present and S2 normal heart sound present GI: COMMON NORMALS: Normal to inspection, nondistended, normoactive bowel sounds present, Soft to palpation and non-tender PALPATION: Yes Soft to palpation Extremity: COMMON NORMALS: no joint enlargement and no pedal edema Neuro: COMMON NORMALS: patient oriented x3 and moves all extremities Skin: COMMON NORMALS: no rashes or lesions noted GENERAL SKIN EXAM: no rashes or lesions noted Urinary Catheter Management^: Weir: Cath Placed During This Visit: yes Reason for Continuing Indwelling Catheter: Accurate Measurement of Urinary Output in Critically Ill Patients Urinary Catheter Date of Insertion: 09/01/21 Urinary Catheter Time of Insertion: 14:00 Data : 09/04/21 05:02 09/04/21 05:02 A&P Assessment and plan (1) Encephalopathy, hepatic: Improving acute encephalopathy. Ammonia appears normalized. However, no bowel movements today yet. Continue lactulose. Discussed need for 2-3 bowel movements a day without exception. Continue rifaximin. PT assessment. Status: Acute (2) Altered mental status: Status: Acute (3) Hepatorenal syndrome: Improving. Continue midodrine, spironolactone. Hold off further IVF. Status: Acute (4) Anemia: Status: Acute (5) A-fib: Status: Acute (6) BPH loc w urin obs/LUTS: Status: Acute (7) Epistaxis due to trauma: Without recurrence. Empiric doxycycline. Discussed with him and family action plan in case of recurrence of epistaxis. Status: Acute Additional A&P Information History of anemia SAMI on CKD: Improving. Hold further IVF. Attestations Medical Necessity Statement*: Continue admission for assessment management of improving hepatic encephalopathy, hepatorenal syndrome with acute kidney injury, in a gentleman with underlying liver cirrhosis, mobilization and physical therapy evaluation, disposition planning and arrangement. Coding Level of Care Code Acute Quarry Supervisor Open Pit for Tay Rust Diagnoses Encephalopathy, hepatic K72.90 Altered mental status R41.82 Hepatorenal syndrome K76.7 Anemia D64.9 A-fib I48.91 BPH loc w urin obs/LUTS N40.1 Epistaxis due to trauma R04.0
[2021-09-05] MEDS: lactulose oral liq 20 gm/30 mL UDC 30 GM PO ×2 (01:32→06:21)
[2021-09-05 03:53] VITALS: BP 127/76; PULSE 99; RESP 20; TEMP 37.1; O2SAT 96
[2021-09-05 05:11] LABS: Basophils # 0.1 10^3/uL (0.0-0.1); Basophils % 1.1 %; Eosinophils # 0.3 10^3/uL (0.0-0.8); Eosinophils % 5.5 %; Hematocrit 21.6 % (42.0-52.0); Hemoglobin 7.2 g/dL (11.7-16.6); Lymphocytes # 1.1 10^3/uL (0.8-4.8); Lymphocytes % 17.8 %; Mean Corpuscular HGB Conc 33.3 g/dL (30.0-36.0); Mean Corpuscular Hemoglobin 32.1 pg (28.0-34.0); Mean Corpuscular Volume 96.4 fl (80-94); Mean Platelet Volume 8.8 fL (7.4-10.4); Monocytes % 15.5 %; Neutrophils # 3.67 10^3/uL (1.8-7.7); Neutrophils % 59.8 %; Nucleated Red Blood Cells % 0 %; Platelet Count 147 10^3/cmm (130-400); Red Blood Count 2.24 10^6/uL (4.1-5.3); Red Cell Distribution Width 15.4 % (12.1-15.1); White Blood Count 6.1 10^3/uL (4.0-10.0)
[2021-09-05 05:40] LABS: Ammonia 52 umol/L (16-60)
[2021-09-05 05:46] LABS: Alanine Aminotransferase 11 U/L (0-41); Albumin Level 2.5 g/dL (3.5-5.2); Alkaline Phosphatase 71 IU/L (40-130); Anion Gap 14.5 (5-19); Aspartate Amino Transferase 23 U/L (0-40); Blood Urea Nitrogen 17 mg/dL (6-20); Calcium 8.1 mg/dL (8.5-10.5); Carbon Dioxide 18 mmol/L (22-29); Chloride 102 mmol/L (98-107); Glomerular Filtration Rate 48.2 mL/min (90-130); Glucose 91 mg/dL (65-115); Osmolality Calculated 271 mOsm/kg (285-295); Potassium 4.5 mmol/L (3.5-5.1); Sodium 130 mmol/L (136-145); Total Bilirubin 0.8 mg/dL (0.15-1.2); Total Protein 5.5 g/dL (6.6-8.7)
[2021-09-05] MEDS: dilTIAZem ER (24HR) 120 mg Capsule PO (06:21)
[2021-09-05] MEDS: TRAMadol 50 mg Tablet 100 MG PO (06:30)
[2021-09-05 07:18] VITALS: BP 100/61; PULSE 101; RESP 16; TEMP 37; O2SAT 99
[2021-09-05 09:40] VITALS: PULSE 98; RESP 17; O2SAT 99
[2021-09-05] MEDS: midodrine 5 mg TABLET 10 MG PO ×2 (09:54→14:46)
[2021-09-05] MEDS: folic acid 1 mg Tablet PO (09:54)
[2021-09-05] MEDS: potassium chloride ER 20 mEq Tablet PO (09:54)
[2021-09-05] MEDS: spironolactone 25 mg Tablet 50 MG PO (09:54)
[2021-09-05] MEDS: doxycycline 100 mg Tablet PO (09:54)
[2021-09-05] MEDS: pantoprazole DR 40 mg Tablet PO (09:54)
[2021-09-05] MEDS: levothyroxine 50 mcg Tablet PO (09:55)
[2021-09-05 12:00] VITALS: BP 117/77; PULSE 104; RESP 18; TEMP 36.6; O2SAT 97
[2021-09-05 13:37] VITALS: BP 117/77; PULSE 104; RESP 18; TEMP 36.6; O2SAT 97
--- NOTE | 2021-09-05 13:47 | PM.DCS ---
Discharge Providers Date of Admission: 09/01/21 15:53 Date of Discharge: September 05, 2021 Attending Provider at Admission: Sourav Meyer MD Attending Provider at Discharge: Max Goodson Primary Care Provider: Yosvany Segovia MD Diagnoses at Discharge Discharge Diagnosis (1) Encephalopathy, hepatic: Status: Acute (2) Altered mental status: Status: Acute (3) Hepatorenal syndrome: Status: Acute (4) Anemia: Status: Acute (5) A-fib: Status: Acute (6) BPH loc w urin obs/LUTS: Status: Acute (7) Epistaxis due to trauma: Status: Acute Reason for Visit Reason for Visit: GENERAL WEAKNESS/ POSSIBLY DEHYDRATED Hospital Course Hospital Course 56-year gentleman with history of liver cirrhosis, hepatorenal syndrome, multiple episodes of hepatic encephalopathy, past history also including ascites and bacterial peritonitis, previously with peritoneal catheter in place, since catheter removal without further admissions for peritonitis, admitted on 09/01 due to hepatic encephalopathy with hyperammonemia, with traumatic epistaxis with attempt for NG tube placement, requiring Rhino Rocket placement bilaterally, empirically was on doxycycline for 5 days. With also noticeable hepatorenal syndrome, with acute kidney injury on presentation, creatinine 2.5. Treat with midodrine, spironolactone, meloxicam was withheld. With continued gradual improvement in kidney injury. He is asked to discontinue meloxicam and avoid NSAIDs at discharge. Epistaxis resolved, Rhino Rocket removed, without recurrence of epistaxis while in the hospital. Noted acute anemia, although has not required transfusion hemoglobin has come down to 7.2. He is asked to follow-up with primary provider in office for reassessment of anemia. His encephalopathy resolved. Ammonia normalized. He remained afebrile, without leukocytosis or other signs of acute infection. He is awake alert and feeling much better. He has been getting up in the room, PT assessment is obtained prior to discharge, and he is to initiate outpatient physical therapy. He has not been keeping up with lactulose like he is supposed to at home as per discussion. Discussed with him and his family importance of strict continuation of lactulose to achieve 2-3 bowel movements in a day to control hyperammonemia. Continuation of rifaximin. Discussed consideration of closer supervision, close family support given this difficult, chronic, progressive condition. Encouraged continuation of follow-up with his GI specialist. Physical Exam Const: COMMON NORMALS: no acute distress, patient oriented x3 and alert GENERAL APPEARANCE: cooperative and comfortable ORIENTATION/CONSCIOUSNESS: Yes awake HENMT: COMMON NORMALS: oropharynx normal Neck/C-Spine: COMMON NORMALS: no JVD Resp: COMMON NORMALS: normal respiratory effort and clear to auscultation bilaterally AUSCULTATION: clear to auscultation bilaterally Cardio: COMMON NORMALS: no JVD, regular rhythm, S1 normal heart sound present, S2 normal heart sound present and No murmurs present (Cardio) RHYTHM: regular rhythm HEART SOUNDS: S1 normal heart sound present and S2 normal heart sound present GI: COMMON NORMALS: Normal to inspection, nondistended, normoactive bowel sounds present, Soft to palpation and non-tender PALPATION: Yes Soft to palpation Extremity: COMMON NORMALS: no joint enlargement and no pedal edema Neuro: COMMON NORMALS: patient oriented x3 and moves all extremities SENSORIUM/ORIENTATION: Yes alert Skin: COMMON NORMALS: no rashes or lesions noted GENERAL SKIN EXAM: no rashes or lesions noted Urinary Catheter Management^: Weir: Cath Placed During This Visit: yes Reason for Continuing Indwelling Catheter: Accurate Measurement of Urinary Output in Critically Ill Patients Urinary Catheter Date of Insertion: 09/01/21 Urinary Catheter Time of Insertion: 14:00 Discharge Data Data Completed and Pending: Completed Studies During Hospitalization Category Date Time Status CT abdomen pelvis wo con [id number] Urge nt Cat Scan 09/01/21 17:[address] head wo con* [id number] 0450 Urgent Cat Scan 09/01/21 12:56 Completed XR chest 1V kasia ble [id number] Urgent Exams 09/01/21 12:56 Completed Pending at discharge Category Date Time Status Blood Culture Sta t Lab 09/01/21 14:50 Results Complete Blood Co unt w/Auto AM LABS Lab 09/06/21 04:00 Ordered Comprehensive Met abolic Panel AM LA BS Lab 09/06/21 04:00 Ordered Urine Eosinophils Stat Lab 09/01/21 Ordered Labs from last 24 hours 09/05/21 09/05/21 09/05/21 04:53 04:53 04:53 WBC 6.1 RBC 2.24 L Hgb 7.2 L Hct 21.6 L MCV 96.4 H MCH 32.1 MCHC 33.3 RDW 15.4 H Plt Count 147 MPV 8.8 Neut % (Auto) 59.8 Lymph % (Auto) 17.8 [place] % (Auto) 15.5 Eos % (Auto) 5.5 Baso % (Auto) 1.1 Neut # (Auto) 3.67 Lymph # (Auto) 1.1 [place] # (Auto) 1.0 H Eos # (Auto) 0.3 Baso # (Auto) 0.1 Nucleated RBC % (a uto) 0 Nucleated RBCs # 0.0 Sodium 130 L Potassium 4.5 Chloride 102 Carbon Dioxide 18 L Anion Gap 14.5 BUN 17 Creatinine 1.5 H GFR Calculation 48.2 L Glucose 91 Calculated Osmolal ity 271 L Calcium 8.1 L Total Bilirubin 0.8 AST 23 ALT 11 Alkaline Phosphata se 71 Ammonia 52 Total Protein 5.5 L Albumin 2.5 L Globulin 3.0 Vitals: Last Vital Signs Temp 97.9 F 09/05/21 13:37 Pulse 104 H 09/05/21 13:37 Resp 18 09/05/21 13:37 BP 117/77 09/05/21 13:37 Pulse Ox 97 09/05/21 13:37 Discharge Plan Discharge Patient Disposition: Home Condition: Stable Prescriptions: Continued vitamin B complex [B Complex-Vitamin B12] Tablet 1 tab PO DAILY@16 RF: 0 (DME) Eliezer Walker See Rx Instructions .Route .MEDSUPPLY Qty: 1 RF: 0 diltiazem HCl [Cartia XT] 120 mg capsule,extended release 24hr 120 mg PO QAM RF: 0 levothyroxine 50 mcg tablet 1 tab PO DAILY RF: 0 rifaximin 550 mg tablet 1 tab PO DAILY RF: 0 (DME) [place] boot See Rx Instructions .Route .MEDSUPPLY Qty: 1 RF: 0 (DME) [place] Boot to the left and an even-up applied to the right foot See Rx Instructions .Route .MEDSUPPLY Qty: 1 RF: 0 Spiriva Respimat 2.5 mcg/actuation mist 2 puff inhalation DAILY Qty: 4 RF: 0 tramadol 50 mg Tablet 100 mg PO DAILY PRN (Reason: Pain) RF: 0 folic acid 1 mg tablet 1 mg PO DAILY@10 RF: 0 fluticasone propionate 50 mcg/actuation spray,suspension 1 - 2 spray intranasal DAILY PRN (Reason: Allergy Symptoms) RF: 0 albuterol sulfate 90 mcg/actuation HFA aerosol inhaler 2 inh INHALATION Q4H PRN (Reason: shortness of breath/wheezing) RF: 0 PreserVision AREDS [phone] [id number]-[id number] Capsule 1 cap PO DAILY RF: 0 ferrous sulfate 27 mg iron Tablet 27 mg PO DAILY RF: 0 cetirizine [Zyrtec] 10 mg Tablet 10 mg PO DAILY PRN (Reason: Allergy Symptoms) RF: 0 alfuzosin 10 mg tablet extended release 24 hr 10 mg PO DAILY@13 RF: 0 furosemide 40 mg tablet 60 mg PO BID RF: 0 midodrine 5 mg tablet 10 mg PO TID RF: 0 pantoprazole 40 mg tablet,delayed release (DR/EC) 40 mg PO DAILY RF: 0 spironolactone 50 mg Tablet 50 mg PO DAILY RF: 0 potassium chloride 20 mEq Tablet Extended Release 20 meq PO BID RF: 0 Changed lactulose 20 gram/30 mL solution 15 ml PO Q6H PRN (Reason: CONSTIPATION) Qty: 0 RF: 0 Discontinued meloxicam 15 mg Tablet 15 mg PO DAILY RF: 0 Discharge Orders: Discharge Order (Routine); Ordered 09/05/21 Ordered By: Max Goodson Referrals: Yosvany Segovia MD [Primary Care Provider] - 09/13/21 10:00 am Discharge Diet: Regular Discharge Activity: As per PT/OT instructions Patient Instructions: Lactulose (By mouth), Nosebleed (GEN), Hepatic Encephalopathy (GEN), Opioid Safety Activity Restrictions/Additional Instructions: Please continue lactulose without exception every day every 6 hours until you achieve 2-3 bowel movements to keep ammonia level down. Also continue rifaximin. Continue follow-up with your gastroenterology specialist. Please note your kidney function has been improving. Please follow-up with your primary doctor for reassessment of kidney function. Please stop meloxicam and avoid any NSAIDs including ibuprofen, Aleve, etc. Continue outpatient physical therapy. As discussed, please have your primary doctor follow-up blood count levels for anemia in office at next visit to reassess anemia which worsened after nosebleed. In case of recurrence of nosebleed, leaning forward, blood pressure from outside and hold at least 10 minutes. Do not insert anything into your nose. Do not blow your nose. Do not lean your head back. In case of lack of resolution, seek medical attention without further delay. Discharge Attestations Time Spent in Discharge Care*: greater than 30 min Status at Discharge: Cognitive status at discharge: cognitively intact, Behavioral status at discharge: cooperative, Quality Metrics Clinical Quality Measures During this hospital stay, did patient experience: None Coding Level of Care Code Acute Chg FW DC note Diagnoses Encephalopathy, hepatic K72.90 Altered mental status R41.82 Hepatorenal syndrome K76.7 Anemia D64.9 A-fib I48.91 BPH loc w urin obs/LUTS N40.1 Epistaxis due to trauma R04.0
[2021-09-05] MEDS: alfuzosin 10 mg ER Tablet PO (14:47)
== END 2021-09-05 15:05 | disposition home or self-care (01) | DRG 432 ==
LOC: ER 17:37 → MEDSURG 19:07
PROVIDERS: Admitting Provider Student in an Organized Health Care Education/Training Program; Emergency Provider Emergency Medicine; PCP Family Medicine; Visit Provider Internal Medicine
DX: K70.40 Alcoholic hepatic failure without coma (principal); K76.7 Hepatorenal syndrome; N13.8 Other obstructive and reflux uropathy; E87.1 Hypo-osmolality and hyponatremia; N17.9 Acute kidney failure, unspecified; F10.10 Alcohol abuse, uncomplicated; R04.0 Epistaxis; T85.9XXA Unspecified complication of internal prosthetic device, implant and graft, initial encounter; Y73.1 Therapeutic (nonsurgical) and rehabilitative gastroenterology and urology devices associated with adverse incidents; I48.91 Unspecified atrial fibrillation; N40.1 Benign prostatic hyperplasia with lower urinary tract symptoms; M14.672 Charcot's joint, left ankle and foot; I50.9 Heart failure, unspecified; Z87.891 Personal history of nicotine dependence; G62.9 Polyneuropathy, unspecified; Z87.01 Personal history of pneumonia (recurrent); I73.9 Peripheral vascular disease, unspecified; D63.1 Anemia in chronic kidney disease; E86.0 Dehydration; N18.9 Chronic kidney disease, unspecified
CPT/HCPCS: 36415; 36416; 51702; 70450; 71045; 74176; 80053; 80307; 81003; 82140; 82436; 82570; 82962; 83690; 83735; 84100; 84133; 84300; 84443; 84484; 85025; 86403; 87040; 93005; 94664; 97110; 97161; 99285; J2270; J7030

== ENCOUNTER 2021-10-20 12:56 | Inpatient (IN) | payer OTHER, SELFPAY ==
[2021-10-20 13:00] VITALS: BP 107/59; PULSE 98; RESP 22; TEMP 36.7; O2SAT 96; BMI 50.8
--- NOTE | 2021-10-20 13:12 | ED_ITS ---
HPI - Extremity Problem General: Chief complaint: ER Hold Stated complaint: FLUID RETENTION BLAIRE LOWER EXT Time Seen by Provider: 10/20/21 12:57 Source: patient Mode of arrival: EMS History of Present Illness: 56-year-old male comes in complaining of lower extremity edema and swelling. He seen his primary care doctor earlier this week and they increased his Lasix he has not had any increased urinary output has significant increase of swelling. He reports his penis and scrotum are are very edematous. He denies any chest pain. He does have some orthopnea. MD Complaint: extremity swelling Onset (ago): day(s) Location: left, right and lower extremity Quality: aching Relieving factors: rest and other (Sitting upright) Exacerbating factors: walking and exertion Associated symptoms: Reports short of breath; Deny chest pain, fever(s), myalgias or rash Review of Systems Const: Denies: fever(s) ENMT: Denies: throat pain, ear or mastoid pain, nasal discharge or nasal congestion Card: Denies: chest pain Resp: Denies: dyspnea, productive cough or non-productive cough GI: Denies: abdominal pain, nausea, vomiting, hematemesis, coffee ground emesis, diarrhea, constipation, bloating, hematochezia or melena : Denies: flank pain, dysuria, urinary frequency or urinary urgency Skin/Breast: Denies: rash PFSH ED PFSH: Medical History A-fib Acute dyspnea Acute encephalopathy Acute hypokalemia Acute hyponatremia Alcoholic cirrhosis of liver with ascites Ascites Ascites due to alcoholic cirrhosis Ataxia Atrial fibrillation and flutter Echocardiogram done in 2019 shows an EF of 40 to 45% with hypokinetic septum, anteroseptum and inferior wall, biatrial enlargement Atrial fibrillation with RVR BPH loc w urin obs/LUTS C. difficile diarrhea Charcot's arthropathy Charcot's joint of left foot Chest pain Pleuritic chest pain: Resolved; CHF (congestive heart failure), NYHA class III Chronic hyponatremia Chronic hyponatremia Dyspnea on exertion Encephalopathy, hepatic End-stage liver disease Erectile dysfunction ETOH abuse Ex-smoker Fracture of fourth metatarsal bone of left foot Fracture of second metatarsal bone of left foot Fracture of third metatarsal bone of left foot Hepatorenal syndrome History of abdominal paracentesis Hx of esophageal varices Hyperkalemia Hyponatremia Hyponatremia with excess extracellular fluid volume Laceration of left foot Neuropathy Non-pressure chronic ulcer of other part of left foot limited to breakdown of skin Occult blood in stools Peritoneal dialysis catheter in situ Peyronie disease Pleural effusion Pleural effusion associated with hepatic disorder Pneumonia PVD (peripheral vascular disease) Upper gastrointestinal hemorrhage due to gastritis Surgical History H/O colonoscopy 10-12 yrs H/O esophagogastroduodenoscopy History of tonsillectomy Hx of umbilical hernia repair Hx of vasectomy Status post surgery (07/05/20) peritoneal catheter for ascites Family History Grandfather CAD (coronary artery disease) Grandmother CAD (coronary artery disease) Cancer Father Cancer Denies family history of Anesthesia complication Bleeding disorder Social History Quit status (tobacco): has quit using tobacco Year quit tobacco: 2014 less than a [id number] Second hand smoke exposure: No Smoking risk assessment/counseling performed?: Yes Alcohol intake: current Alcohol intake frequency: 3 or more drinks per day Alcohol type: beer Adopted: No Caregiver/support person: Yes Lives independently: Yes Household members: children Marital status: Current occupational status: unemployed Pets and animals: Yes History of recent travel: No Current gender identity: Male Physical Exam Const: COMMON NORMALS: no acute distress GENERAL APPEARANCE: cooperative and comfortable ORIENTATION/CONSCIOUSNESS: Yes awake, Yes oriented to person, Yes oriented to place and Yes oriented to time HENMT: COMMON NORMALS: normocephalic, atraumatic and hearing grossly normal bilaterally HEAD & SCALP: normocephalic and atraumatic Resp: COMMON NORMALS: normal respiratory effort, No retractions, No use of accessory muscles and clear to auscultation bilaterally AUSCULTATION: clear to auscultation bilaterally Cardio: COMMON NORMALS: regular rate, regular rhythm and No murmurs present (Cardio) RATE: regular rate RHYTHM: regular rhythm GI: COMMON NORMALS: Soft to palpation and No hepatosplenomegaly present AUSCULTATION: Yes normoactive bowel sounds PALPATION: Yes Soft to palpation, No Tenderness to palpation present (GI), No Guarding due to palpation present (GI) and Yes No hepatosplenomegaly present Extremity: NARRATIVE EXTREMITY EXAM: 3+ edema of the lower extremities bilaterally OTHER: Anasarca that extends to the level of the shoulders posteriorly and to the level of the nipple line anteriorly Neuro: SENSORIUM/ORIENTATION: Yes oriented to person, Yes oriented to place and Yes oriented to time Course Vital Signs: Vital signs: Vital Signs Temperature 97.7 F 10/22/21 04:00 Pulse Rate 92 10/22/21 04:00 Respiratory Rate 18 10/22/21 04:00 Blood Pressure 112/69 10/22/21 04:00 Pulse Oximetry 94 10/22/21 04:00 MDM - Extremity (Nontraumatic) Medical Decision Making Increased fluid retention with moderate congestive heart failure. Failure of outpatient therapy. Admit for diuresis. Mild acute kidney injury and mild anemia as well as hyponatremia. Medical Records I reviewed the patient's medical records. Lab Data I reviewed the patient's lab results. : 10/21/21 05:22 10/21/21 02:14 Radiology Impressions Chest X-Ray 10/20/21 13:26 IMPRESSION: 1. Mild cardiomegaly. 2. Mild left basilar atelectasis and/or infiltrate and/or effusion. Laboratory Results WBC 4.9 10^3/uL (4.0-10.0) 10/20/21 14:42 RBC 2.48 10^6/uL (4.1-5.3) L 10/20/21 14:42 Hgb 8.1 g/dL (11.7-16.6) L 10/20/21 14:42 Hct 27.2 % (42.0-52.0) L 10/20/21 14:42 MCV 109.7 fl (80-94) H 10/20/21 14:42 MCH 32.7 pg (28.0-34.0) 10/20/21 14:42 MCHC 29.8 g/dL (30.0-36.0) L 10/20/21 14:42 RDW 16.4 % (12.1-15.1) H 10/20/21 14:42 Plt Count 125 10^3/cmm (130-400) L 10/20/21 14:42 MPV 9.4 fL (7.4-10.4) 10/20/21 14:42 Neut % (Auto) 59.5 % 10/20/21 14:42 Lymph % (Auto) 16.0 % 10/20/21 14:42 [place] % (Auto) 16.0 % 10/20/21 14:42 Eos % (Auto) 7.1 % 10/20/21 14:42 Baso % (Auto) 1.0 % 10/20/21 14:42 Neut # (Auto) 2.93 10^3/uL (1.8-7.7) 10/20/21 14:42 Lymph # (Auto) 0.8 10^3/uL (0.8-4.8) 10/20/21 14:42 [place] # (Auto) 0.8 10^3/uL (0.2-0.9) 10/20/21 14:42 Eos # (Auto) 0.4 10^3/uL (0.0-0.8) 10/20/21 14:42 Baso # (Auto) 0.1 10^3/uL (0.0-0.1) 10/20/21 14:42 Nucleated RBC % (auto) 0 % 10/20/21 14:42 Nucleated RBCs # 0.0 /100WBC 10/20/21 14:42 Sodium 134 mmol/L (136-145) L 10/20/21 14:42 Potassium 4.8 mmol/L (3.5-5.1) 10/20/21 14:42 Chloride 96 mmol/L (98-107) L 10/20/21 14:42 Carbon Dioxide 25 mmol/L (22-29) 10/20/21 14:42 Anion Gap 17.8 (5-19) 10/20/21 14:42 BUN 38 mg/dL (6-20) H 10/20/21 14:42 Creatinine 2.6 mg/dL (0.7-1.2) H 10/20/21 14:42 GFR Calculation 25.6 mL/min (90-130) L 10/20/21 14:42 Glucose 98 mg/dL (65-115) 10/20/21 14:42 Calculated Osmolality 287 mOsm/kg (285-295) 10/20/21 14:42 Calcium 8.3 mg/dL (8.5-10.5) L 10/20/21 14:42 Total Bilirubin 0.8 mg/dL (0.15-1.2) 10/20/21 14:42 AST 19 U/L (0-40) 10/20/21 14:42 ALT 9 U/L (0-41) 10/20/21 14:42 Alkaline Phosphatase 98 IU/L (40-130) 10/20/21 14:42 Troponin T Baseline 70 ng/L (0-15) H 10/20/21 14:42 Troponin T 120 Minute 67.27 ng/L (0-15) H 10/20/21 16:40 Delta Troponin T -2.73 ABS# (0-10) L 10/20/21 16:40 NT-Pro-B Natriuret Pep 3316 pg/mL (0-125) H 10/20/21 14:42 Total Protein 6.1 g/dL (6.6-8.7) L 10/20/21 14:42 Albumin 3.3 g/dL (3.5-5.2) L 10/20/21 14:42 Globulin 2.8 g/dL (1.3-4.6) 10/20/21 14:42 Urine Color Straw (Yellow) 10/20/21 14:35 Urine Appearance Clear (CLEAR) 10/20/21 14:35 Urine pH 5 (5-7) 10/20/21 14:35 Ur Specific [place] 1.010 (1.005-1.030) 10/20/21 14:35 Urine Protein Neg (Negative) 10/20/21 14:35 Urine Glucose (UA) Norm (Normal) 10/20/21 14:35 Urine Ketones Negative (Negative) 10/20/21 14:35 Urine Blood Neg (Negative) 10/20/21 14:35 Urine Nitrate Negative (Negative) 10/20/21 14:35 Urine Bilirubin Neg (Negative) 10/20/21 14:35 Urine Urobilinogen Norm mg/dL (Negative) 10/20/21 14:35 Ur Leukocyte Esterase Negative (Negative) 10/20/21 14:35 Discharge Plan Discharge Patient Disposition: Admitted As Inpatient Admit Provider: Abdiel Cardona Clinical Impression: CHF (congestive heart failure), Anasarca, SAMI (acute kidney injury), Anemia, Hyponatremia Condition: Stable Coding Level of Care Code ED Retina Subspecialist for Tay Rust
--- NOTE | 2021-10-20 13:14 | ECG_ITS ---
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 Measurements Intervals [place] Rate: 87 P: WI: QRS: 131 QRSD: 88 T: -12 QT: 374 QTc: 450 Interpretive Statements ATRIAL FIBRILLATION POSSIBLE RIGHT VENTRICULAR HYPERTROPHY [SOME/ALL OF: PROMINENT R IN V1, LATE TRANSITION, RAD, LUCINDA, SSS] ANTEROLATERAL MYOCARDIAL INFARCTION , PROBABLY OLD [40+ ms Q WAVE IN I/aVL/V3-V6] Compared to ECG 09/01/2021 19:04:06 Atrial abnormality now present Myocardial infarct finding still present Electronically Signed On 10-21-2021 17:01:14 JUNIOR ACCOUNT EXECUTIVE by Binta Pitt M.D. [id number]
--- NOTE | 2021-10-20 13:26 | XRR_ITS ---
PROCEDURE INFORMATION: Exam: XR Chest Exam date and time: 10/20/2021 1:26 PM Age: 56 years old Clinical indication: Cough and dyspnea; Patient HX: Cough/dyspnea; Additional info: Dyspnea/cough TECHNIQUE: Imaging protocol: XR of the chest. Views: 1 view. COMPARISON: CR XR chest 1V portable [id number] 09/01/2021 1:08 PM FINDINGS: Lungs: Mild left basilar atelectasis and/or infiltrate and/or effusion. Mild left perihilar pneumonia. Pleural spaces: Unremarkable. No pleural effusion. No pneumothorax. Heart/Mediastinum: Mild cardiomegaly. Bones/joints: Unremarkable. XR/XR chest 1V portable [id number] IMPRESSION: 1. Mild cardiomegaly. 2. Mild left basilar atelectasis and/or infiltrate and/or effusion.
--- NOTE | 2021-10-20 13:37 | PC.NURSE ---
PATIENT HERE FOR INCREASED SWELLING IN THE LAST COUPLE OF DAYS, PATIENT SCROTUM SWOLLEN SO MUCH THAT HE IS ONLY ABLE TO URINATE IN SMALL AMOUNTS . PATIENT ASKING FOR A VANEGAS.
[2021-10-20 13:47] VITALS: BP 107/59; PULSE 106; RESP 20; O2SAT 96
[2021-10-20 14:48] LABS: Basophils # 0.1 10^3/uL (0.0-0.1); Eosinophils # 0.4 10^3/uL (0.0-0.8); Eosinophils % 7.1 %; Hematocrit 27.2 % (42.0-52.0); Hemoglobin 8.1 g/dL (11.7-16.6); Lymphocytes # 0.8 10^3/uL (0.8-4.8); Mean Corpuscular HGB Conc 29.8 g/dL (30.0-36.0); Mean Corpuscular Hemoglobin 32.7 pg (28.0-34.0); Mean Corpuscular Volume 109.7 fl (80-94); Mean Platelet Volume 9.4 fL (7.4-10.4); Monocytes # 0.8 10^3/uL (0.2-0.9); Neutrophils # 2.93 10^3/uL (1.8-7.7); Neutrophils % 59.5 %; Nucleated Red Blood Cells % 0 %; Platelet Count 125 10^3/cmm (130-400); Red Blood Count 2.48 10^6/uL (4.1-5.3); Red Cell Distribution Width 16.4 % (12.1-15.1); White Blood Count 4.9 10^3/uL (4.0-10.0)
[2021-10-20] MEDS: FUROsemide 10 mg/mL SDV 10mL 80 MG IVP (14:54)
--- NOTE | 2021-10-20 15:14 | ECG_ITS ---
[facility] Test Date: 2021-10-20 Pat Name: Yosvany Soto Department: Room: Gender: Male Computer Game Designer: : 1965 Requested By: Ghassan Brooks Order Number: [id number] Cade MD: Binta Pitt M.D. Measurements Intervals [place] Rate: 87 P: [place]: QRS: 127 QRSD: 89 T: 26 QT: 368 QTc: 445 Interpretive Statements ATRIAL FIBRILLATION POSSIBLE RIGHT VENTRICULAR HYPERTROPHY ANTEROLATERAL MYOCARDIAL INFARCTION , PROBABLY OLD Compared to ECG 10/20/2021 13:51:26 No significant changes Electronically Signed On 10-22-2021 8:55:53 CARD SCRAPER by Binta Pitt M.D. [id number]
[2021-10-20 15:19] LABS: Troponin(5th) Baseline 70 ng/L (0-15)
[2021-10-20 15:42] LABS: Alanine Aminotransferase 9 U/L (0-41); Albumin Level 3.3 g/dL (3.5-5.2); Alkaline Phosphatase 98 IU/L (40-130); Anion Gap 17.8 (5-19); Aspartate Amino Transferase 19 U/L (0-40); Blood Urea Nitrogen 38 mg/dL (6-20); Calcium 8.3 mg/dL (8.5-10.5); Carbon Dioxide 25 mmol/L (22-29); Chloride 96 mmol/L (98-107); Globulin 2.8 g/dL (1.3-4.6); Glomerular Filtration Rate 25.6 mL/min (90-130); Glucose 98 mg/dL (65-115); NT Pro B Type Natriuretic Pept 3316 pg/mL (0-125); Osmolality Calculated 287 mOsm/kg (285-295); Potassium 4.8 mmol/L (3.5-5.1); Sodium 134 mmol/L (136-145); Total Bilirubin 0.8 mg/dL (0.15-1.2); Total Protein 6.1 g/dL (6.6-8.7)
[2021-10-20 15:51] VITALS: BP 115/59; PULSE 101; RESP 16; O2SAT 96
[2021-10-20 16:58] LABS: Add Urine Microscopic? NO; Charge for UA Resulting for Rev
[2021-10-20 17:03] LABS: Bilirubin Urine Neg (Negative); Blood Urine Neg (Negative); Glucose Urine UA Norm (Normal); Ketones Urine Negative (Negative); Leukocyte Esterase Urine Negative (Negative); Nitrate Urine Negative (Negative); Protein Urine Neg (Negative); Urine Appearance Clear (CLEAR); Urine Color Straw (Yellow); Urobilinogen Urine Norm (Negative); pH Urine 5 (5-7)
[2021-10-20 17:28] LABS: Troponin 5 2HR 67.27 ng/L (0-15)
--- NOTE | 2021-10-20 17:41 | P.HP_ITS ---
Providers/Chief Complaint Primary Care Provider: Yosvany Segovia MD Chief Complaint: FLUID RETENTION BLAIRE LOWER EXT History of Present Illness Yosvany Soto is a 56 year old male who has history of alcohol-related liver cirrhosis, hepatorenal syndrome, recurrent ascites, bacterial peritonitis was on chronic antibiotics, removal of peritoneal drain after peritonitis present to the hospital for worsening of anasarca. Patient is stating that he came to the hospital because he is not able to ambulate and function normally at home. He has noticed decreased urine output in the last few days. He is taking spironolactone and Lasix on daily basis. He has missed some of his lactulose at home as well. He is vaccinated for COVID-19. He has not noticed any fever, nausea, vomiting, chest pain. His anasarca has worsened and there is worsening of scrotal swelling. In the ER he was given 80 mg of Lasix, he was able to void 1 L of urine, Weir catheter was not attempted Patient was saturating well on room air at the time of evaluation Generalized anasarca Review of Systems Const: Reports: body aches and fatigue; Denies: chills Eyes: Denies: change in vision ENMT: Denies: throat pain Card: Denies: chest pain Resp: Reports: dyspnea GI: Reports: nausea; Denies: diarrhea : Reports: difficulty urinating Musc: Denies: neck pain Skin/Breast: Reports: lesions Neuro: Denies: headache(s) Endo: Denies: polyuria Avinash/Lymph: Denies: easy bruising All/Imm: Denies: urticaria Medications/Allergies Home Medications Medication Instructions Recorded Confirmed Last Taken Type vitamin B complex (B 1 tab PO DAILY@16 01/04/20 09/01/21 08/31/21 History Complex-Vitamin B12) tramadol 50 mg tablet 100 mg PO DAILY PRN 05/05/20 09/01/21 07/09/21 History folic acid 1 mg tablet 1 mg PO DAILY@10 08/23/20 09/01/21 08/31/21 History [place] boot #1 ea 09/01/20 09/01/21 Unknown Rx fluticasone propionate 50 1 - 2 spray INTRANASAL DAILY PRN 09/08/20 09/01/21 07/09/21 History mcg/actuation nasal spray,suspension [place] #1 ea NS 10/02/20 09/01/21 Unknown Rx albuterol sulfate 90 mcg/actuation 2 inh INHALATION Q4H PRN 12/11/20 09/01/21 07/09/21 History aerosol inhaler ferrous sulfate 27 mg iron tablet 27 mg PO DAILY 02/11/21 09/01/21 08/31/21 History vitamins A,C,X-ljtl-yfvsbb 14,320 1 cap PO DAILY 02/11/21 09/01/21 08/31/21 History unit-226 mg-200 unit capsule (PreserVision AREDS) [place] Boot to the left and an #1 ea 03/23/21 09/01/21 Unknown Rx even-up applied to the right foot diltiazem HCl 120 mg 120 mg PO QAM 04/24/21 09/01/21 08/31/21 History capsule,extended release 24 hr (Cartia XT) alfuzosin 10 mg tablet,extended 10 mg PO DAILY@13 05/24/21 09/01/21 08/31/21 History release 24 hr cetirizine 10 mg tablet (Zyrtec) 10 mg PO DAILY PRN 05/24/21 09/01/21 07/09/21 History levothyroxine 50 mcg tablet 1 tab PO DAILY 08/15/21 09/01/21 08/31/21 History rifaximin 550 mg tablet 1 tab PO DAILY 08/15/21 09/01/21 08/31/21 History furosemide 40 mg tablet 60 mg PO BID 09/01/21 09/01/21 08/31/21 History midodrine 5 mg tablet 10 mg PO TID 09/01/21 09/01/21 08/31/21 History pantoprazole 40 mg tablet,delayed 40 mg PO DAILY 09/01/21 09/01/21 08/31/21 History release potassium chloride 20 mEq 20 meq PO BID 09/01/21 09/01/21 08/31/21 History tablet,extended release spironolactone 50 mg tablet 50 mg PO DAILY 09/01/21 09/01/21 08/31/21 History lactulose 20 gram/30 mL oral 15 ml PO Q6H PRN #0 ml 09/05/21 09/01/21 07/09/21 Rx solution tiotropium bromide 2.5 2 puff INHALATION DAILY #4 g 10/11/21 Unknown Rx mcg/actuation mist for inhalation (Spiriva Respimat) gabapentin 100 mg capsule 100 mg PO TID 10/20/21 10/20/21 10/20/21 History meloxicam 15 mg tablet 15 mg PO DAILY 10/20/21 10/20/21 10/20/21 History Allergies Allergy/AdvReac Type Severity Reaction Status Date / Time Penicillins Allergy ALGY-Difficulty Verified 10/20/21 12:59 Breathing Sulfa (Sulfonamide Allergy Unknown Verified 10/20/21 12:59 Antibiotics) PFSH Acute PFSH: Medical History A-fib Acute dyspnea Acute encephalopathy Acute hypokalemia Acute hyponatremia Alcoholic cirrhosis of liver with ascites Ascites Ascites due to alcoholic cirrhosis Ataxia Atrial fibrillation and flutter Echocardiogram done in 2019 shows an EF of 40 to 45% with hypokinetic septum, anteroseptum and inferior wall, biatrial enlargement Atrial fibrillation with RVR BPH loc w urin obs/LUTS C. difficile diarrhea Charcot's arthropathy Charcot's joint of left foot Chest pain Pleuritic chest pain: Resolved; CHF (congestive heart failure), NYHA class III Chronic hyponatremia Chronic hyponatremia Dyspnea on exertion Encephalopathy, hepatic End-stage liver disease Erectile dysfunction ETOH abuse Ex-smoker Fracture of fourth metatarsal bone of left foot Fracture of second metatarsal bone of left foot Fracture of third metatarsal bone of left foot Hepatorenal syndrome History of abdominal paracentesis Hx of esophageal varices Hyperkalemia Hyponatremia Hyponatremia with excess extracellular fluid volume Laceration of left foot Neuropathy Non-pressure chronic ulcer of other part of left foot limited to breakdown of skin Occult blood in stools Peritoneal dialysis catheter in situ Peyronie disease Pleural effusion Pleural effusion associated with hepatic disorder Pneumonia PVD (peripheral vascular disease) Upper gastrointestinal hemorrhage due to gastritis Surgical History H/O colonoscopy 10-12 yrs H/O esophagogastroduodenoscopy History of tonsillectomy Hx of umbilical hernia repair Hx of vasectomy Status post surgery (07/05/20) peritoneal catheter for ascites Family History Grandfather CAD (coronary artery disease) Grandmother CAD (coronary artery disease) Cancer Father Cancer Denies family history of Anesthesia complication Bleeding disorder Social History Quit status (tobacco): has quit using tobacco Year quit tobacco: 2014 less than a [id number] Second hand smoke exposure: No Smoking risk assessment/counseling performed?: Yes Alcohol intake: current Alcohol intake frequency: 3 or more drinks per day Alcohol type: beer Adopted: No Caregiver/support person: Yes Lives independently: Yes Household members: children Marital status: Current occupational status: unemployed Pets and animals: Yes History of recent travel: No Current gender identity: Male Vitals/I&O/Wt Last Vital Signs Temp 98.1 F 10/20/21 13:00 Pulse 101 H 10/20/21 15:51 Resp 16 10/20/21 15:51 BP 115/59 10/20/21 15:51 Pulse Ox 96 10/20/21 15:51 Weight last 48 hrs Weight 170.097 kg Physical Exam Narrative: EXAM NARRATIVE: Generalized anasarca Scrotal swelling Venous dermatitis Charcot foot Abdominal wall edema S1, S2 Breathing well on room air Awake and alert No active hepatic encephalopathy Patient is awake and alert Nonfocal neuro exam Morbidly obese Data : 10/20/21 14:42 10/20/21 14:42 A&P Assessment and plan (1) Anasarca: Status: Acute (2) Acute kidney injury superimposed on chronic kidney disease: Status: Acute (3) Anemia: Status: Acute (4) Decompensation of cirrhosis of liver: Status: Acute (5) Pleural effusion: Status: Acute Plan Worsening of anasarca Resistant hypervolemia Related to liver cirrhosis Mild pleural effusion His symptoms are consistent with decompensated liver cirrhosis We will give him high-dose Bumex along albumin Blood pressure is stable For resistant hypervolemia he might need nephrology consultation in case his creatinine worsens he does carry history of hepatorenal syndrome Worsening creatinine noted Place Weir catheter for accurate output Hold spironolactone Patient has not been able to void at home however in the ER he was able to void 1 L, monitor for now, in case of further reduction in urine output will scan his kidneys to rule out hydronephrosis bladder outlet obstruction Genital edema: Asked patient to put towel under his scrotal area Abdomen ascites positive without signs of peritonitis continue ceftriaxone Has history of SBP stopped taking chronic suppressive therapy He is full code Cardiac fluid restricted DVT prophylaxis Heparin Troponin leak like related to SAMI type II NE For recurrent ascites he is an ideal candidate for TIPS procedure, child Worthington score consistent with class B Attestations Medical Necessity Statement*: More than 2 midnights anticipated for resistant hypervolemia Time Spent in Patient Care: 35mins Coding Level of Care Code 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
[2021-10-20 17:47] LABS: Troponin 5 2HR Delta -2.73 ABS# (0-10)
[2021-10-20 19:30] VITALS: BP 97/68; PULSE 98; RESP 16; TEMP 36.7; O2SAT 96
[2021-10-20] MEDS: albumin 12.5 GM/250 ML VIAL IV (19:39)
[2021-10-20] MEDS: heparin 5,000 unit/mL INJ 1 mL 5000 UNIT SUBCUT (19:59)
[2021-10-20] MEDS: potassium chloride ER 20 mEq Tablet PO (19:59)
[2021-10-20] MEDS: bumetanide 0.25 mg/mL SDV 10 mL 2 MG IVP (21:21)
[2021-10-20] MEDS: midodrine 5 mg TABLET 10 MG PO (21:21)
[2021-10-20] MEDS: TRAMadol 50 mg Tablet 100 MG PO (21:21)
[2021-10-20 21:45] LABS: Ammonia 124 umol/L (16-60)
[2021-10-20 21:48] LABS: Troponin 5 6HR 67.69 ng/L (0-15)
[2021-10-20 21:49] LABS: Troponin 5 6HR Delta -2.31 ng/L (0-12)
[2021-10-20 23:30] VITALS: BP 127/81; PULSE 78; RESP 18; O2SAT 95
[2021-10-21] VITALS (7 sets, daily range): BP systolic 104–138; BP diastolic 63–87; PULSE 68–111; RESP 16–19; TEMP 36.4–36.9; O2SAT 93–99; BMI 51.6
[2021-10-21 03:06] LABS: Alanine Aminotransferase 9 U/L (0-41); Albumin Level 3.2 g/dL (3.5-5.2); Alkaline Phosphatase 85 IU/L (40-130); Blood Urea Nitrogen 39 mg/dL (6-20); C Reactive Protein 23.3 mg/L (0.0-4.9); Calcium 8.6 mg/dL (8.5-10.5); Carbon Dioxide 26 mmol/L (22-29); Chloride 96 mmol/L (98-107); Globulin 2.8 g/dL (1.3-4.6); Glomerular Filtration Rate 29.5 mL/min (90-130); Glucose 94 mg/dL (65-115); Magnesium 2.2 mg/dL (1.7-2.3); Osmolality Calculated 283 mOsm/kg (285-295); Sodium 132 mmol/L (136-145)
[2021-10-21 03:17] LABS: Anion Gap 14.9 (5-19); Aspartate Amino Transferase 26 U/L (0-40); Potassium 4.9 mmol/L (3.5-5.1)
[2021-10-21 05:36] LABS: Basophils # 0.1 10^3/uL (0.0-0.1); Basophils % 1.6 %; Eosinophils # 0.4 10^3/uL (0.0-0.8); Eosinophils % 11.4 %; Hematocrit 23.8 % (42.0-52.0); Hemoglobin 7.6 g/dL (11.7-16.6); Lymphocytes # 0.8 10^3/uL (0.8-4.8); Lymphocytes % 21.2 %; Mean Corpuscular HGB Conc 31.9 g/dL (30.0-36.0); Mean Corpuscular Hemoglobin 32.8 pg (28.0-34.0); Mean Corpuscular Volume 102.6 fl (80-94); Mean Platelet Volume 9.6 fL (7.4-10.4); Monocytes # 0.8 10^3/uL (0.2-0.9); Monocytes % 19.9 %; Neutrophils # 1.71 10^3/uL (1.8-7.7); Neutrophils % 45.4 %; Nucleated Red Blood Cells % 0 %; Platelet Count 115 10^3/cmm (130-400); Red Blood Count 2.32 10^6/uL (4.1-5.3); Red Cell Distribution Width 16.2 % (12.1-15.1); White Blood Count 3.8 10^3/uL (4.0-10.0)
[2021-10-21 06:14] LABS: Slide Review Slide Review Perform
[2021-10-21] MEDS: dilTIAZem ER (24HR) 120 mg Capsule PO (06:22)
[2021-10-21] MEDS: heparin 5,000 unit/mL INJ 1 mL 5000 UNIT SUBCUT ×2 (06:22→18:40)
--- NOTE | 2021-10-21 10:58 | P.PN_ITS ---
Subjective Subjective: Interval history: Patient is stating that he has not noticed significant difference however he was able to put out 400 mL on his own Weir catheter placement was difficult in the ER it was not tried overnight by the [facility] nursing staff I requested his nurse to attempt placing a Weir catheter Hemoglobin 7.6 Patient is awake and alert Creatinine improved from 2.6-2.3 Vitals/I&O/Wt Last Vital Signs Temp 98.5 F 10/21/21 07:30 Pulse 86 10/21/21 07:30 Resp 18 10/21/21 07:30 BP 104/65 10/21/21 07:30 Pulse Ox 96 10/21/21 07:30 10/20/21 10/21/21 10/21/21 22:59 06:59 14:59 Intake Total 250 / 250 240 / 240 Output Total 400 / 400 Balance 250 / 250 -400 / -150 240 / 240 Weight last 48 hrs Weight 173.499 kg Weight 172.819 kg Weight 170.097 kg Physical Exam Narrative: EXAM NARRATIVE: Patient laying supine Anasarca No significant improvement Scrotal edema Less tense as compared to yesterday No signs of hepatic encephalopathy Awake and alert Nonfocal neuro exam Ascites Breathing well on room air No acute respite distress or chest pain Data : 10/21/21 05:22 10/21/21 02:14 A&P Assessment and plan (1) Acute kidney injury superimposed on chronic kidney disease: Status: Acute (2) Anasarca: Status: Acute (3) Anemia: Status: Acute (4) Decompensation of cirrhosis of liver: Status: Acute (5) Chronic hyponatremia: Status: Acute (6) Pleural effusion: Status: Acute Plan Worsening anasarca Alcohol-related liver cirrhosis No hepatic encephalopathy Ammonia level is high Continue lactulose rifaximin and ceftriaxone he does carry history of SBP in the past I would add aggressive diuretic regimen along albumin Weir catheter placement Might need urology help if unsuccessful with Weir catheter placement Patient seems to have history of hepatorenal syndrome Creatinine improved with diuretics yesterday hold off on octreotide at this point I did discuss with the patient that for resistant hypervolemia he should get TIPS otherwise he might end up on dialysis No active bleed, Continue ceftriaxone empirical coverage Patient is breathing well on room air, I do not suspect heart failure exacerbation at this point lungs are clear except mild pleural effusion Full code Fluids active cardiac diet He can have high-protein intake DVT prophylaxis Heparin Attestations Medical Necessity Statement*: Continue medical management for aggressive diuresis and management of anasarca Time Spent in Patient Care: 15 Coding Level of Care Code 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
[2021-10-21] MEDS: bumetanide 0.25 mg/mL SDV 10 mL 2 MG IVP ×2 (11:08→18:39)
[2021-10-21] MEDS: cefTRIAXone 1,000 MG in sodium chloride 0.9% (plus) 50 ML 100 MG IV (11:09)
[2021-10-21] MEDS: midodrine 5 mg TABLET 10 MG PO ×3 (11:09→21:45)
[2021-10-21] MEDS: sennosides-docusate Tablet 1 TAB PO (11:10)
[2021-10-21] MEDS: pantoprazole DR 40 mg Tablet PO (11:10)
[2021-10-21] MEDS: potassium chloride ER 20 mEq Tablet PO ×2 (11:10→18:40)
[2021-10-21] MEDS: levothyroxine 50 mcg Tablet PO (11:10)
[2021-10-21] MEDS: lactulose oral liq 20 gm/30 mL UDC 10 GM PO (18:41)
[2021-10-21] MEDS: TRAMadol 50 mg Tablet 100 MG PO (22:32)
[2021-10-22] VITALS: BP 119/71; PULSE 82; RESP 18; TEMP 36.6; O2SAT 93
[2021-10-22] MEDS: bumetanide 0.25 mg/mL SDV 10 mL 2 MG IVP ×3 (01:56→15:27)
[2021-10-22] MEDS: ondansetron 2 mg/ML SDV 2 mL 4 MG IVP (01:56)
[2021-10-22 04:00] VITALS: BP 112/69; PULSE 92; RESP 18; TEMP 36.5; O2SAT 94
[2021-10-22] MEDS: dilTIAZem ER (24HR) 120 mg Capsule PO (06:00)
[2021-10-22] MEDS: heparin 5,000 unit/mL INJ 1 mL 5000 UNIT SUBCUT ×2 (06:01→17:42)
--- NOTE | 2021-10-22 06:33 | PC.NURSE ---
SHIFT SUMMARY Has had a good night. Is very edematous tejinder in bilat legs, abdomen and scrotum/penis. Has urinated well and have assisted him with using urinal. Is difficult for him to do himself due to the edema. Receiving IV Bumex as ordered. Remains on 1200ml fluid restriction.
[2021-10-22 08:00] VITALS: BP 136/75; PULSE 86; RESP 18; TEMP 36.6; O2SAT 96
[2021-10-22] MEDS: cefTRIAXone 1,000 MG in sodium chloride 0.9% (plus) 50 ML 50 MG IV (08:32)
[2021-10-22] MEDS: sennosides-docusate Tablet 1 TAB PO (08:32)
[2021-10-22] MEDS: potassium chloride ER 20 mEq Tablet PO ×2 (08:32→17:42)
[2021-10-22] MEDS: pantoprazole DR 40 mg Tablet PO (08:32)
[2021-10-22] MEDS: levothyroxine 50 mcg Tablet PO (08:32)
[2021-10-22 08:37] LABS: Basophils # 0.1 10^3/uL (0.0-0.1); Basophils % 1.2 %; Eosinophils # 0.5 10^3/uL (0.0-0.8); Eosinophils % 9.2 %; Hematocrit 22.9 % (42.0-52.0); Hemoglobin 7.1 g/dL (11.7-16.6); Lymphocytes % 19.9 %; Mean Corpuscular Volume 103.2 fl (80-94); Mean Platelet Volume 9.6 fL (7.4-10.4); Monocytes # 0.8 10^3/uL (0.2-0.9); Monocytes % 16.8 %; Neutrophils # 2.56 10^3/uL (1.8-7.7); Neutrophils % 52.7 %; Nucleated Red Blood Cells % 0 %; Platelet Count 126 10^3/cmm (130-400); Red Blood Count 2.22 10^6/uL (4.1-5.3); Red Cell Distribution Width 16.3 % (12.1-15.1); White Blood Count 4.9 10^3/uL (4.0-10.0)
[2021-10-22 08:45] LABS: Alanine Aminotransferase 9 U/L (0-41); Alkaline Phosphatase 75 IU/L (40-130); Anion Gap 16.9 (5-19); Aspartate Amino Transferase 21 U/L (0-40); Blood Urea Nitrogen 35 mg/dL (6-20); Carbon Dioxide 24 mmol/L (22-29); Chloride 98 mmol/L (98-107); Globulin 2.8 g/dL (1.3-4.6); Glomerular Filtration Rate 29.5 mL/min (90-130); Glucose 82 mg/dL (65-115); Osmolality Calculated 285 mOsm/kg (285-295); Potassium 4.9 mmol/L (3.5-5.1); Sodium 134 mmol/L (136-145); Total Bilirubin 0.8 mg/dL (0.15-1.2); Total Protein 5.8 g/dL (6.6-8.7)
--- NOTE | 2021-10-22 10:44 | PC.CHAP ---
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 stereotyper helper visit [] Patient/Family/Request visit [] Outpatient visit [] Follow-up visit [] Physician referral [] Code/Alert [x] Routine visit [] Staff referral [] Actively dying [] Patient sleeping [] Family support [] [] Out of room [] Palliative care [] [] Receiving care in room [] Pre-surgical visit [] Trauma [] Long length of stay [] ICU visit [] Other: Relational/Emotional Strength [x] Patient feels connected with others/family/visitors/staff [] Distress [] Loneliness/isolation [] Abandonment Spirituality of Patient [x] Person of Jana [x] Attends Jainism of their Jana [x Believes in Prayer [] Reads Bible or Latter Day materials [] There are Spiritual issues to be addressed 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 Interventions [x] Prayer [x Active listening [x] Non-anxious presence [x Spiritual/emotional support [] Crisis/trauma care [x] Spiritual counseling [] Bereavement support [] Provided bereavement packet [] Provided Bible/devotional materials [] Provided toy/stuffed animal, coloring book to patient or family member [] Provided Communion [] Anointing/[place] [] Salvation [x] Completed spiritual assessment [] Other: Impact on Illness or Injury [] Angry [] Fearful [] Anxious [] Often cries [] Exhaustion [] Unable to work [] Unable to attend anabaptist [] Unable to walk/stand [] Unable to read [] Unable to drive [] Unable to eat/drink [] Unable to sleep [] Unable to be with family [] Patient intubated [] Other: Summary Time spent with patient 10 min
[2021-10-22] MEDS: fluticasone nasal spray 16gm Btl 2 SPRAY NASAL (11:44)
[2021-10-22 12:00] VITALS: BP 109/68; PULSE 89; RESP 18; TEMP 36.7; O2SAT 92
[2021-10-22] MEDS: spironolactone 25 mg Tablet 100 MG PO (13:44)
--- NOTE | 2021-10-22 15:54 | P.PN_ITS ---
Subjective Subjective: Interval history: Upon entering the room patient requesting assistance with urination. He stated he needed me to hold the urinal for him due to the scrotal edema and penile edema. Patient states he is extremely uncomfortable due to this edema. Vitals/I&O/Wt Last Vital Signs Temp 98.0 F 10/22/21 12:00 Pulse 89 10/22/21 12:00 Resp 18 10/22/21 12:00 BP 109/68 10/22/21 12:00 Pulse Ox 92 10/22/21 12:00 10/22/21 10/22/21 10/22/21 06:59 14:59 22:59 Intake Total 360 / 1130 50 / 50 Output Total 900 / 2320 300 / 300 Balance -540 / -1190 -250 / -250 Weight last 48 hrs Weight 173.499 kg Weight 172.819 kg Physical Exam Narrative: EXAM NARRATIVE: Patient in mild distress during rest but increased distress during urination. Patient is extremely edematous with diffuse anasarca. He is lying with his hips externally rotated to allow for room for the scrotum. Heart: Regular normal S1-S2 without murmurs clicks gallops or rubs Lungs: Clear to auscultation without wheezes rales or rhonchi Abdomen: Anasarca up to abdomen with dependent edema in his pannus. Marshal appearance to his pannus. : Severe scrotal and penile edema Extremities +4 pitting edema to groin and abdomen. Neurologic alert oriented to person place time and situation Psychiatric: Patient does not seem to grasp the seriousness of his condition nor does he wish appear willing to help himself Data : 10/22/21 08:07 10/22/21 08:07 A&P Assessment and plan (1) Anasarca: According to his records this is due to alcohol induced cirrhosis. Patient's Bumex and albumin were correlated such that the albumin was given 30 minutes prior over prior to Bumex. I discussed this with pharmacy. Also added spironolactone 100 mg with the intention to increase by 100 mg every 3 to 5 days. Status: Acute (2) Decompensation of cirrhosis of liver: As above I am unclear if patient is still using alcohol at this time. Status: Acute (3) Chronic hyponatremia: Current sodium level is adequate at 134. Status: Acute (4) Acute kidney injury superimposed on chronic kidney disease: Patient's BUN and creatinine are stable at 35 and 2.3 Although last documented BUN and creatinine on 09/05/2021 was 17/1.5. Status: Acute (5) Anemia: Patient's hemoglobin on admission was 8.1 and now it is 7.1. Will follow. Status: Acute (6) Thrombocytopenia: Patient's platelet count is also lower this admission. His discharge platelet count was 147 on 09/05/2021 and currently is 125. Status: Acute Attestations Medical Necessity Statement*: Patient is with severe anasarca and unable to ambulate patient will require IV medications to adjudicate. 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
[2021-10-22 16:00] VITALS: BP 118/73; PULSE 88; RESP 18; TEMP 36.6; O2SAT 94
[2021-10-22 20:00] VITALS: BP 122/76; PULSE 90; RESP 18; TEMP 36.6; O2SAT 95
[2021-10-22] MEDS: midodrine 5 mg TABLET 10 MG PO (20:24)
[2021-10-22] MEDS: TRAMadol 50 mg Tablet 100 MG PO (20:24)
[2021-10-23] VITALS (7 sets, daily range): BP systolic 111–137; BP diastolic 71–79; PULSE 77–108; RESP 16–18; TEMP 36.6–37.1; O2SAT 94–95
[2021-10-23] MEDS: bumetanide 0.25 mg/mL SDV 10 mL 2 MG IVP ×3 (01:18→17:01)
[2021-10-23] MEDS: heparin 5,000 unit/mL INJ 1 mL 5000 UNIT SUBCUT ×2 (06:40→19:02)
[2021-10-23] MEDS: dilTIAZem ER (24HR) 120 mg Capsule PO (06:45)
[2021-10-23] MEDS: levothyroxine 50 mcg Tablet PO (08:10)
[2021-10-23] MEDS: midodrine 5 mg TABLET 10 MG PO ×2 (08:10→20:07)
[2021-10-23] MEDS: potassium chloride ER 20 mEq Tablet PO ×2 (08:10→17:01)
[2021-10-23] MEDS: spironolactone 25 mg Tablet 100 MG PO (08:11)
[2021-10-23] MEDS: pantoprazole DR 40 mg Tablet PO (08:11)
[2021-10-23] MEDS: ipratropium-albuterol 3 mL Neb INHALATION (09:15)
[2021-10-23] MEDS: cefTRIAXone 1,000 MG in sodium chloride 0.9% (plus) 50 ML 50 MG IV (10:21)
[2021-10-23] MEDS: fluticasone nasal spray 16gm Btl 2 SPRAY NASAL (10:28)
--- NOTE | 2021-10-23 17:26 | P.PN_ITS ---
Subjective Subjective: Requests multiple things. wants something for sleep. something more for pain and albuterol Pt reports his usual weight is 250 and he was 360 in the office the other day. Vitals/I&O/Wt Last Vital Signs Temp 98.7 F 10/23/21 12:00 Pulse 87 10/23/21 12:00 Resp 17 10/23/21 12:00 BP 137/79 10/23/21 12:00 Pulse Ox 95 10/23/21 12:00 10/23/21 10/23/21 10/23/21 06:59 14:59 22:59 Intake Total 350 / 620 150 / 150 Output Total 1455 / 2605 100 / 100 Balance -1105 / -1985 50 / 50 Physical Exam Narrative: Patient in no distress today. He is very comfortable. He is about to fall off to sleep when I see him. Heart: Regular normal S1-S2 without murmurs clicks gallops or rubs Lungs: Clear to auscultation without wheezes rales or rhonchi Abdomen: Anasarca up to abdomen with dependent edema in his pannus. Marshal appearance to his pannus. : Severe scrotal and penile edema; now wrapped Extremities +4 pitting edema to groin and abdomen.- currently wrapped. Neurologic alert oriented to person place time and situation Data : 10/22/21 08:07 10/22/21 08:07 A&P Assessment and plan (1) Anasarca: According to his records this is due to alcohol induced cirrhosis. He reports he has not used alcohol in over a year. Patient now has Weir catheter and will be able to assess Bumex and albumin effectiveness. Patient's Bumex and albumin were correlated such that the albumin was given 30 minutes prior over prior to Bumex. I discussed this with pharmacy. Also added spironolactone 100 mg with the intention to increase by 100 mg every 3 to 5 days. Status: Acute (2) Decompensation of cirrhosis of liver: As above Status: Acute (3) Chronic hyponatremia: Current sodium level is adequate at 134. Pt on cardiac diet 2 gm sodium restriction. He is not happy with this diet but as below we discussed what he needs to do to help himself and preventing this severe anasarca. Status: Acute (4) Acute kidney injury superimposed on chronic kidney disease: Patient's BUN and creatinine are stable Although last documented BUN and creatinine on 09/05/2021 was 17/1.5. Status: Acute (5) Anemia: Will follow. Status: Acute (6) Thrombocytopenia: Patient's platelet count is also lower this admission. His discharge platelet count was 147 on 09/05/2021 and currently is 125. Status: Acute Plan I spoke with patient with RN present. I explained to him that there is much she can do to avoid this severe anasarca in the future. He needs to purchase a scale. eventually we will determine his dry weight and he will weigh himself daily. When he is above his dry weight he will need to double his Lasix for a couple of days. We also discussed dietary changes sodium restriction and fluid restriction. Today Mariana CARROLL and pillowcase turner assisted patient with calling Dr. King unfortunately we were not able to get him an earlier appointment but Mariana did obtain information for him to start a clinic visit with the transplant center. Attestations Medical Necessity Statement*: Patient with extensive lymphedema wraps of his lower extremities as well as scrotum and penis. He is unable to ambulate with these wraps. He is requiring IV diuresis. He is fluid overloaded by 100 pounds suspected. Will need aggressive diuresis for many more days. 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
[2021-10-23] MEDS: TRAMadol 50 mg Tablet 100 MG PO (20:07)
[2021-10-23] MEDS: hyDROXYzine 25 mg Capsule PO (22:32)
[2021-10-24] VITALS (9 sets, daily range): BP systolic 110–131; BP diastolic 69–77; PULSE 63–104; RESP 12–20; TEMP 36.6–37; O2SAT 91–97
[2021-10-24] MEDS: bumetanide 0.25 mg/mL SDV 10 mL 2 MG IVP ×3 (00:32→17:21)
[2021-10-24] MEDS: dilTIAZem ER (24HR) 120 mg Capsule PO (06:15)
[2021-10-24] MEDS: heparin 5,000 unit/mL INJ 1 mL 5000 UNIT SUBCUT (06:16)
[2021-10-24] MEDS: cefTRIAXone 1,000 MG in sodium chloride 0.9% (plus) 50 ML 100 MG IV (08:53)
[2021-10-24] MEDS: sennosides-docusate Tablet 1 TAB PO (09:00)
[2021-10-24] MEDS: midodrine 5 mg TABLET 10 MG PO ×3 (09:01→20:04)
[2021-10-24] MEDS: pantoprazole DR 40 mg Tablet PO (09:01)
[2021-10-24] MEDS: fluticasone nasal spray 16gm Btl 2 SPRAY NASAL (09:02)
[2021-10-24] MEDS: levothyroxine 50 mcg Tablet PO (09:02)
[2021-10-24] MEDS: potassium chloride ER 20 mEq Tablet PO ×2 (09:03→17:21)
[2021-10-24] MEDS: spironolactone 25 mg Tablet 100 MG PO (09:09)
[2021-10-24] MEDS: ipratropium-albuterol 3 mL Neb INHALATION ×2 (09:12→16:55)
--- NOTE | 2021-10-24 13:08 | PM.PN ---
Subjective Subjective: Patient was seen and examined this morning, he has lymphedema wraps around his scrotal and legs Adequate diuresis Edema has not improved significantly He is agreeable to get transferred for liver transplant evaluation No lab work from today Not complaining of pain, no active shortness of breath Saturating well on room air I have added Ambien for his insomnia Hemoglobin 7.1, check FOBT Vitals/I&O/Wt Last Vital Signs Temp 98.6 F 10/24/21 12:00 Pulse 88 10/24/21 12:00 Resp 16 10/24/21 12:00 BP 131/77 10/24/21 12:00 Pulse Ox 93 10/24/21 12:00 10/23/21 10/24/21 10/24/21 22:59 06:59 14:59 Intake Total 100 / 250 100 / 350 364 / 364 Output Total 1375 / 1475 2550 / 4025 Balance -1275 / -1225 -2450 / -3675 364 / 364 Physical Exam Narrative: Patient laying comfortably in his bed Anasarca Upper chest, upper extremities less swollen, scrotal edema and leg edema pretty much the same however Weir catheter draining adequate urine Awake and alert Satting well on room air S1, S2 Pleasant and cooperative during my evaluation Scrotal area with no signs of cellulitis Urinary Catheter Management: 2-way Urethral: Cath Placed During This Visit: yes Urinary Catheter Date of Insertion: 10/23/21 Data : 10/22/21 08:07 10/22/21 08:07 A&P Assessment and plan (1) Thrombocytopenia: Status: Acute (2) Hyponatremia: Status: Acute (3) Acute kidney injury superimposed on chronic kidney disease: Status: Acute (4) CHF (congestive heart failure): Status: Acute (5) SAMI (acute kidney injury): Status: Acute (6) Anasarca: Status: Acute (7) Anemia: Status: Acute (8) Decompensation of cirrhosis of liver: Status: Acute (9) Chronic hyponatremia: Status: Acute Plan Anasarca: Adequate diuresis noticed with albumin and diuretic regimen , Hold albumin, check CBC CMP tomorrow morning, continue IV diuretics Spironolactone added yesterday Acute on chronic anemia: No active GI bleed Check FOBT If hemoglobin less than 7 will need transfusion Likely related to portal hypertension No active hemoptysis or hematemesis Hypervolemic hyponatremia Anticipating provement with diuresis Acute on chronic kidney disease Creatinine did improve with diuresis, will follow up with BMP tomorrow Thrombocytopenia no active bleed platelet count stable Patient will need TIPS and liver transplant, will try to present his case to [facility] or [facility] Attestations Medical Necessity Statement*: Continue medical management Time Spent in Patient Care: 15 minutes Coding Level of Care Code 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
[2021-10-24] MEDS: lactulose oral liq 20 gm/30 mL UDC 10 GM PO (16:01)
[2021-10-24] MEDS: TRAMadol 50 mg Tablet 100 MG PO (20:04)
[2021-10-25] VITALS (12 sets, daily range): BP systolic 110–126; BP diastolic 60–78; PULSE 78–109; RESP 16–18; TEMP 36.4–36.9; O2SAT 90–96
[2021-10-25] MEDS: oxyCODONE 5 mg IR Tab/Cap PO ×2 (00:27→11:05)
[2021-10-25] MEDS: ondansetron 2 mg/ML SDV 2 mL 4 MG IVP ×2 (00:39→20:16)
[2021-10-25] MEDS: bumetanide 0.25 mg/mL SDV 10 mL 2 MG IVP ×3 (00:39→17:37)
[2021-10-25 05:33] LABS: Basophils # 0.1 10^3/uL (0.0-0.1); Basophils % 0.9 %; Eosinophils # 0.4 10^3/uL (0.0-0.8); Eosinophils % 7.2 %; Hematocrit 22.9 % (42.0-52.0); Hemoglobin 7.2 g/dL (11.7-16.6); Lymphocytes # 0.8 10^3/uL (0.8-4.8); Mean Corpuscular HGB Conc 31.4 g/dL (30.0-36.0); Mean Corpuscular Hemoglobin 32.6 pg (28.0-34.0); Mean Corpuscular Volume 103.6 fl (80-94); Mean Platelet Volume 9.4 fL (7.4-10.4); Monocytes % 17.2 %; Neutrophils # 3.38 10^3/uL (1.8-7.7); Neutrophils % 60.5 %; Nucleated Red Blood Cells % 0 %; Platelet Count 134 10^3/cmm (130-400); Red Blood Count 2.21 10^6/uL (4.1-5.3); Red Cell Distribution Width 16.5 % (12.1-15.1); White Blood Count 5.6 10^3/uL (4.0-10.0)
[2021-10-25 05:55] LABS: Alanine Aminotransferase 9 U/L (0-41); Albumin Level 4.1 g/dL (3.5-5.2); Alkaline Phosphatase 70 IU/L (40-130); Anion Gap 13.6 (5-19); Aspartate Amino Transferase 19 U/L (0-40); Blood Urea Nitrogen 31 mg/dL (6-20); Calcium 8.4 mg/dL (8.5-10.5); Carbon Dioxide 30 mmol/L (22-29); Chloride 93 mmol/L (98-107); Globulin 2.3 g/dL (1.3-4.6); Glomerular Filtration Rate 32.7 mL/min (90-130); Glucose 92 mg/dL (65-115); Osmolality Calculated 280 mOsm/kg (285-295); Potassium 4.6 mmol/L (3.5-5.1); Sodium 132 mmol/L (136-145); Total Bilirubin 0.8 mg/dL (0.15-1.2); Total Protein 6.4 g/dL (6.6-8.7)
[2021-10-25 05:56] LABS: Creatinine Clr Calc Pharmacy 63.6551
[2021-10-25] MEDS: dilTIAZem ER (24HR) 120 mg Capsule PO (06:08)
[2021-10-25] MEDS: pantoprazole DR 40 mg Tablet PO (08:34)
[2021-10-25] MEDS: sennosides-docusate Tablet 1 TAB PO (08:34)
[2021-10-25] MEDS: levothyroxine 50 mcg Tablet PO (08:34)
[2021-10-25] MEDS: fluticasone nasal spray 16gm Btl 2 SPRAY NASAL (08:34)
[2021-10-25] MEDS: spironolactone 25 mg Tablet 100 MG PO (08:34)
[2021-10-25] MEDS: midodrine 5 mg TABLET 10 MG PO ×3 (08:34→20:18)
[2021-10-25] MEDS: potassium chloride ER 20 mEq Tablet PO ×2 (08:34→20:19)
[2021-10-25] MEDS: cefTRIAXone 1,000 MG in sodium chloride 0.9% (plus) 50 ML 100 MG IV (08:35)
--- NOTE | 2021-10-25 09:44 | P.PN_ITS ---
Subjective Subjective: Negative Weir to balance, will transfuse 1 unit PRBC Patient is not endorsing any overnight events Still not able to get up and use a bedside commode because of scrotal edema I will discontinue albumin today Vitals/I&O/Wt Last Vital Signs Temp 97.9 F 10/25/21 04:00 Pulse 94 10/25/21 04:00 Resp 17 10/25/21 04:00 BP 112/60 10/25/21 04:00 Pulse Ox 90 10/25/21 04:00 10/24/21 10/25/21 10/25/21 22:59 06:59 14:59 Intake Total 464 / 828 600 / 1428 Output Total 2200 / 2200 3650 / 5850 Balance -1736 / -1372 -3050 / -4422 Physical Exam Narrative: Generalized anasarca Scrotal edema Massive ascites No signs of hepatic encephalopathy S1, S2 Awake and alert Breathing well on room air Urinary Catheter Management: 2-way Urethral: Cath Placed During This Visit: yes Urinary Catheter Date of Insertion: 10/23/21 Data : 10/25/21 04:42 10/25/21 04:42 A&P Assessment and plan (1) Thrombocytopenia: Status: Acute (2) Hyponatremia: Status: Acute (3) Acute kidney injury superimposed on chronic kidney disease: Status: Acute (4) Anasarca: Status: Acute (5) Anemia: Status: Acute (6) Decompensation of cirrhosis of liver: Status: Acute Plan Anasarca secondary to liver cirrhosis Discontinue albumin today Adequate urine output Continue Bumex Blood pressure stable We will give 1 unit PRBC No active hematemesis or hemoptysis Check FOBT Hold DVT prophylaxis Continue midodrine He gets Ambien for insomnia DuoNeb for as needed use Doing well on room air Left a voicemail for hotel administrative assistant Dr. Rachel FAY he needs evaluation for TIPS & liver transplant Attestations Medical Necessity Statement*: Continue medical management Time Spent in Patient Care: 15 Coding Level of Care Code Acute Government Affairs Specialist for Tay Rust Diagnoses Thrombocytopenia D69.6 Hyponatremia E87.1 Acute kidney injury superimposed on chronic kidney disease N17.9; N18.9 Anasarca R60.1 Anemia D64.9 Decompensation of cirrhosis of liver K72.90; K74.60
--- NOTE | 2021-10-25 10:17 | PC.NURSE ---
There is a delay in starting patient's blood as he lost his # 20 gauage IV. Attempting to start another as soon as possible
--- NOTE | 2021-10-25 10:53 | US_ITS ---
WS: [id number] INDICATION: Ascites TECHNIQUE: 4 quadrant ultrasound FINDINGS: Four-quadrant ultrasound of the abdomen. No significant ascites is visualized. US/US abdomen lmt fluid [id number] IMPRESSION: No ascites.
--- NOTE | 2021-10-25 18:49 | PC.NURSE ---
Report to Hetal HEBERT at this time.
[2021-10-25] MEDS: TRAMadol 50 mg Tablet 100 MG PO (20:20)
[2021-10-25] MEDS: zolpidem 5 mg Tablet PO (20:21)
[2021-10-25] MEDS: lactulose oral liq 20 gm/30 mL UDC 10 GM PO (20:22)
[2021-10-26] VITALS (7 sets, daily range): BP systolic 112–130; BP diastolic 66–75; PULSE 78–90; RESP 13–20; TEMP 36.5–36.9; O2SAT 92–98
[2021-10-26] MEDS: bumetanide 0.25 mg/mL SDV 10 mL 2 MG IVP ×3 (00:42→18:23)
[2021-10-26] MEDS: dilTIAZem ER (24HR) 120 mg Capsule PO (05:47)
[2021-10-26 06:05] LABS: Basophils # 0.1 10^3/uL (0.0-0.1); Basophils % 0.9 %; Eosinophils # 0.5 10^3/uL (0.0-0.8); Eosinophils % 9.1 %; Hematocrit 25.3 % (42.0-52.0); Lymphocytes # 0.8 10^3/uL (0.8-4.8); Lymphocytes % 14.3 %; Mean Corpuscular HGB Conc 31.6 g/dL (30.0-36.0); Mean Corpuscular Hemoglobin 32.3 pg (28.0-34.0); Mean Platelet Volume 9.6 fL (7.4-10.4); Monocytes % 17.4 %; Neutrophils # 3.24 10^3/uL (1.8-7.7); Neutrophils % 58.1 %; Nucleated Red Blood Cells % 0 %; Platelet Count 132 10^3/cmm (130-400); Red Blood Count 2.48 10^6/uL (4.1-5.3); Red Cell Distribution Width 16.8 % (12.1-15.1); White Blood Count 5.6 10^3/uL (4.0-10.0)
[2021-10-26 06:24] LABS: Anion Gap 14.8 (5-19); Blood Urea Nitrogen 33 mg/dL (6-20); Calcium 9.7 mg/dL (8.5-10.5); Carbon Dioxide 30 mmol/L (22-29); Chloride 93 mmol/L (98-107); Glucose 89 mg/dL (65-115); Osmolality Calculated 283 mOsm/kg (285-295); Potassium 4.8 mmol/L (3.5-5.1); Sodium 133 mmol/L (136-145)
[2021-10-26 06:27] LABS: Creatinine Clr Calc Pharmacy 60.7617
[2021-10-26] MEDS: cefTRIAXone 1,000 MG in sodium chloride 0.9% (plus) 50 ML 100 MG IV (08:00)
[2021-10-26] MEDS: potassium chloride ER 20 mEq Tablet PO ×2 (09:04→18:24)
[2021-10-26] MEDS: spironolactone 25 mg Tablet 100 MG PO (09:04)
[2021-10-26] MEDS: midodrine 5 mg TABLET 10 MG PO ×3 (09:04→20:45)
[2021-10-26] MEDS: levothyroxine 50 mcg Tablet PO (09:05)
[2021-10-26] MEDS: pantoprazole DR 40 mg Tablet PO (09:05)
[2021-10-26] MEDS: sennosides-docusate Tablet 1 TAB PO (09:05)
[2021-10-26] MEDS: fluticasone nasal spray 16gm Btl 2 SPRAY NASAL (09:06)
--- NOTE | 2021-10-26 09:08 | PM.PN ---
Subjective Subjective: Patient is endorsing feeling we did discuss disposition plan home health services versus residential and wound care clinic appointment, patient stated that he would only opt for residential or home with services if insurance would cover it Paracentesis canceled not enough fluid to be drained Vitals/I&O/Wt Last Vital Signs Temp 97.7 F 10/26/21 07:21 Pulse 90 10/26/21 07:21 Resp 17 10/26/21 07:21 BP 130/67 10/26/21 07:21 Pulse Ox 96 10/26/21 07:21 10/25/21 10/26/21 10/26/21 22:59 06:59 14:59 Output Total 3300 / 3300 Balance -3300 / -2700 Physical Exam Narrative: Sitting in bed eating breakfast Did do some exercises in his bed with PT No significant improvement in lower extremity edema or scrotal edema Weir catheter draining dilute urine Awake and alert No active signs of encephalopathy S1, S2 No active audible stridor or wheezing Saturate well on room air Urinary Catheter Management: 2-way Urethral: Cath Placed During This Visit: yes Reason for Continuing Indwelling Catheter: Accurate Measurement of Urinary Output in Critically Ill Patients Urinary Catheter Date of Insertion: 10/23/21 Data : 10/26/21 05:12 10/26/21 05:12 A&P Assessment and plan (1) Hyponatremia: Status: Acute (2) Acute kidney injury superimposed on chronic kidney disease: Status: Acute (3) Anasarca: Status: Acute (4) Anasarca: Status: Acute (5) Anemia: Status: Acute Plan Liver cirrhosis secondary to alcohol abuse Status post albumin and aggressive diuretic regimen No significant improvement in his anasarca Patient does need TIPS procedure for which referral has been sent out and patient has been updated Now we are planning to safely discharge patient from the hospital, he is reluctant to go to residential or pay for home health services out of pocket, he would only offer these options if insurance would cover We will discuss with supervisor case loading PT to see him today Low-sodium diet We will discharge him with the Weir catheter and wound care clinic follow-up for lymphedema of his legs and scrotal area Full code Will need Lasix and spironolactone Macrocytic anemia check B12 and folic acid level, status post 1 unit PRBC hemoglobin stable today 8.0 This most likely is related to hypersplenism related to portal hypertension No active GI bleed Attestations Medical Necessity Statement*: Depending on PT evaluation next disposition plan will be made Time Spent in Patient Care: 15 minutes Coding Level of Care Code Acute Supervisor Electronic Coils for Chg Fwd Diagnoses Hyponatremia E87.1 Acute kidney injury superimposed on chronic kidney disease N17.9; N18.9 Anasarca R60.1 Anasarca R60.1 Anemia D64.9
--- NOTE | 2021-10-26 10:45 | PM.DCS ---
Discharge Providers Date of Admission: 10/20/21 17:54 Date of Discharge: October 26, 2021 Attending Provider at Admission: Abdiel Cardona MD Attending Provider at Discharge: Abdiel Cardona MD Primary Care Provider: Yosvany Segovia MD Diagnoses at Discharge Discharge Diagnosis (1) Hyponatremia: Status: Acute (2) Acute kidney injury superimposed on chronic kidney disease: Status: Acute (3) Anasarca: Status: Acute (4) Anasarca: Status: Acute (5) Anemia: Status: Acute Reason for Visit Reason for Visit: FLUID RETENTION BLAIRE LOWER EXT Hospital Course Hospital Course Admitting note Yosvany Soto is a 56 year old male who has history of alcohol-related liver cirrhosis, hepatorenal syndrome, recurrent ascites, bacterial peritonitis was on chronic antibiotics, removal of peritoneal drain after peritonitis present to the hospital for worsening of anasarca.? Patient is stating that he came to the hospital because he is not able to ambulate and function normally at home.? He has noticed decreased urine output in the last few days.? He is taking spironolactone and Lasix on daily basis.? He has missed some of his lactulose at home as well.? He is vaccinated for COVID-19.? He has not noticed any fever, nausea, vomiting, chest pain.? His anasarca has worsened and there is worsening of scrotal swelling. In the ER he was given 80 mg of Lasix, he was able to void 1 L of urine, Weir catheter was not attempted Patient was saturating well on room air at the time of evaluation Generalized anasarca Hospital course Patient was admitted for management evaluation of worsening anasarca, scrotal edema, inability to void urine. Weir catheter was placed and he was diuresed aggressively. IV albumin scheduled doses were given, adequate urine output obtained however his anasarca did not show significant improvement. Ultrasound of abdomen did not show any drainable peritoneal fluid, abdomen was soft, no signs of hepatic encephalopathy, he was given lactulose on a as needed basis. He was given 1 unit PRBC however he did not show any signs of hemoptysis, hematemesis, active GI bleed. Likely related to hypersplenism. Patient is reluctant to go to any snf, however minimal assist with PT, he wants to go home with home health services, [facility] home health services has been arranged, he will need wound care clinic for scrotal and leg wraps for lymphedema. I am discharging him on diuretics, lactulose. His case was presented to Dr. Ramos liver transplant customer relations consultant at [facility]. Facesheet has been faxed, his clinic will call him as well to make an appointment for further evaluation. Patient is stating that he lives with his son but right now his pain his friend whose name is Cindy to come help him at home. He will make arrangements to go to wound care clinic He is high risk for readmissions because of worsening of edema. Because of scrotal edema decision was made to not remove Weir catheter at the time of discharge Patient is an ideal candidate for TIPS procedure in the interim before liver transplant, alcohol abstinence since 1-1/2 years Child [place]thing[place] class B In case of worsening symptoms would recommend transfer to [facility] or [facility] for TIPS procedure from the ER Physical Exam Narrative: Laying in bed, worked with physical therapist in his bed with some exercises during supine phase No significant improvement in lower extremity edema or scrotal edema Weir catheter draining dilute urine Awake and alert No active signs of encephalopathy S1, S2 No active audible stridor or wheezing Saturate well on room air Scrotal edema, Weir catheter draining dilute urine Urinary Catheter Management: 2-way Urethral: Cath Placed During This Visit: yes Reason for Continuing Indwelling Catheter: Accurate Measurement of Urinary Output in Critically Ill Patients Urinary Catheter Date of Insertion: 10/23/21 Discharge Data Studies Completed and Pending Completed Studies During Hospitalization Category Date Time Status XR chest 1V portable [id number] Stat Exams 10/20/21 13:26 Completed US abdomen lmt fluid [id number] Routine Ultrasound 10/25/21 10:53 Completed Pending at discharge Category Date Time Status LDH Peritoneal Fluid Routine Lab 10/25/21 10:53 Uncollected Occult Blood Stool [Immunochemical Fecal OCB] Routine Lab 10/24/21 13:16 Ordered Peritoneal Fluid Analysis Routine Lab 10/25/21 10:53 Uncollected pH Peritoneal Fluid Routine Lab 10/25/21 10:53 Uncollected Radiology Impressions Chest X-Ray 10/20/21 13:26 IMPRESSION: 1. Mild cardiomegaly. 2. Mild left basilar atelectasis and/or infiltrate and/or effusion. Abdomen Ultrasound 10/25/21 10:53 IMPRESSION: No ascites. Laboratory Results WBC 5.6 10^3/uL (4.0-10.0) 10/26/21 05:12 Corrected WBC Cancelled 10/22/21 04:46 RBC 2.48 10^6/uL (4.1-5.3) L 10/26/21 05:12 Hgb 8.0 g/dL (11.7-16.6) L 10/26/21 05:12 Hct 25.3 % (42.0-52.0) L 10/26/21 05:12 MCV 102.0 fl (80-94) H 10/26/21 05:12 MCH 32.3 pg (28.0-34.0) 10/26/21 05:12 MCHC 31.6 g/dL (30.0-36.0) 10/26/21 05:12 RDW 16.8 % (12.1-15.1) H 10/26/21 05:12 Plt Count 132 10^3/cmm (130-400) 10/26/21 05:12 MPV 9.6 fL (7.4-10.4) 10/26/21 05:12 Gran % Cancelled 10/22/21 04:46 Neut % (Auto) 58.1 % 10/26/21 05:12 Lymph % (Auto) 14.3 % 10/26/21 05:12 Rabun % (Auto) 17.4 % 10/26/21 05:12 Eos % (Auto) 9.1 % 10/26/21 05:12 Baso % (Auto) 0.9 % 10/26/21 05:12 Neut # (Auto) 3.24 10^3/uL (1.8-7.7) 10/26/21 05:12 Lymph # (Auto) 0.8 10^3/uL (0.8-4.8) 10/26/21 05:12 Rabun # (Auto) 1.0 10^3/uL (0.2-0.9) H 10/26/21 05:12 Eos # (Auto) 0.5 10^3/uL (0.0-0.8) 10/26/21 05:12 Baso # (Auto) 0.1 10^3/uL (0.0-0.1) 10/26/21 05:12 Absolute Gran (auto) Cancelled 10/22/21 04:46 Nucleated RBC % (auto) 0 % 10/26/21 05:12 Nucleated RBCs # 0.0 /100WBC 10/26/21 05:12 Sodium 133 mmol/L (136-145) L 10/26/21 05:12 Potassium 4.8 mmol/L (3.5-5.1) 10/26/21 05:12 Chloride 93 mmol/L (98-107) L 10/26/21 05:12 Carbon Dioxide 30 mmol/L (22-29) H 10/26/21 05:12 Anion Gap 14.8 (5-19) 10/26/21 05:12 BUN 33 mg/dL (6-20) H 10/26/21 05:12 Creatinine 2.2 mg/dL (0.7-1.2) H 10/26/21 05:12 GFR Calculation 31.0 mL/min (90-130) L 10/26/21 05:12 Glucose 89 mg/dL (65-115) 10/26/21 05:12 Calculated Osmolality 283 mOsm/kg (285-295) L 10/26/21 05:12 Calcium 9.7 mg/dL (8.5-10.5) 10/26/21 05:12 Magnesium 2.2 mg/dL (1.7-2.3) 10/21/21 02:14 Total Bilirubin 0.8 mg/dL (0.15-1.2) 10/25/21 04:42 AST 19 U/L (0-40) 10/25/21 04:42 ALT 9 U/L (0-41) 10/25/21 04:42 Alkaline Phosphatase 70 IU/L (40-130) 10/25/21 04:42 Ammonia 124 umol/L (16-60) H 10/20/21 20:55 Troponin T Baseline 70 ng/L (0-15) H 10/20/21 14:42 Troponin T 120 Minute 67.27 ng/L (0-15) H 10/20/21 16:40 Delta Troponin T -2.73 ABS# (0-10) L 10/20/21 16:40 Troponin T Hi Sens 6Hr 67.69 ng/L (0-15) H 10/20/21 20:55 Troponin T Hi Sens 6Hr Delta -2.31 ng/L (0-12) L 10/20/21 20:55 C-Reactive Protein 23.3 mg/L (0.0-4.9) H 10/21/21 02:14 NT-Pro-B Natriuret Pep 3316 pg/mL (0-125) H 10/20/21 14:42 Total Protein 6.4 g/dL (6.6-8.7) L 10/25/21 04:42 Albumin 4.1 g/dL (3.5-5.2) 10/25/21 04:42 Globulin 2.3 g/dL (1.3-4.6) 10/25/21 04:42 Urine Color Straw (Yellow) 10/20/21 14:35 Urine Appearance Clear (CLEAR) 10/20/21 14:35 Urine pH 5 (5-7) 10/20/21 14:35 Ur Specific Goodman 1.010 (1.005-1.030) 10/20/21 14:35 Urine Protein Neg (Negative) 10/20/21 14:35 Urine Glucose (UA) Norm (Normal) 10/20/21 14:35 Urine Ketones Negative (Negative) 10/20/21 14:35 Urine Blood Neg (Negative) 10/20/21 14:35 Urine Nitrate Negative (Negative) 10/20/21 14:35 Urine Bilirubin Neg (Negative) 10/20/21 14:35 Urine Urobilinogen Norm mg/dL (Negative) 10/20/21 14:35 Ur Leukocyte Esterase Negative (Negative) 10/20/21 14:35 Blood Type O Positive 10/25/21 07:42 Rho(D) Type Positive 10/25/21 07:42 Antibody Screen Negative 10/25/21 07:42 Crossmatch See Detail 10/25/21 07:42 Vitals Last Vital Signs Temp 97.7 F 10/26/21 07:21 Pulse 90 10/26/21 07:21 Resp 17 10/26/21 07:21 BP 130/67 10/26/21 07:21 Pulse Ox 96 10/26/21 07:21 Discharge Plan Discharge Patient Disposition: Home Condition: Stable Prescriptions: New bumetanide 1 mg tablet 1 mg PO BID Qty: 120 3RF lactulose 10 gram/15 mL solution 10 g PO DAILY PRN (Reason: laxative effect) Qty: 946 4RF spironolactone 100 mg tablet 100 mg PO DAILY Qty: 90 3RF Continued vitamin B complex [B Complex-Vitamin B12] Tablet 1 tab PO DAILY@16 0RF (DME) Eliezer Hagen See Rx Instructions .Route .MEDSUPPLY Qty: 1 0RF Rx Instructions: As directed diltiazem HCl [Cartia XT] 120 mg capsule,extended release 24hr 120 mg PO QAM 0RF levothyroxine 50 mcg tablet 1 tab PO DAILY 0RF rifaximin 550 mg tablet 1 tab PO DAILY 0RF (DME) [place] bodelonte See Rx Instructions .Route .MEDSUPPLY Qty: 1 0RF Rx Instructions: As directed (DME) [place] Boot to the left and an even-up applied to the right foot See Rx Instructions .Route .MEDSUPPLY Qty: 1 0RF Rx Instructions: As directed by Laureen Spiriva Respimat 2.5 mcg/actuation mist 2 puff inhalation DAILY Qty: 4 0RF tramadol 50 mg Tablet 100 mg PO DAILY PRN (Reason: Pain) 0RF folic acid 1 mg tablet 1 mg PO DAILY@10 0RF fluticasone propionate 50 mcg/actuation spray,suspension 1 - 2 spray intranasal DAILY PRN (Reason: Allergy Symptoms) 0RF albuterol sulfate 90 mcg/actuation HFA aerosol inhaler 2 inh INHALATION Q4H PRN (Reason: shortness of breath/wheezing) 0RF PreserVision AREDS [id number] [id number] Capsule 1 cap PO DAILY 0RF ferrous sulfate 27 mg iron Tablet 27 mg PO DAILY 0RF cetirizine [Zyrtec] 10 mg Tablet 10 mg PO DAILY PRN (Reason: Allergy Symptoms) 0RF alfuzosin 10 mg tablet extended release 24 hr 10 mg PO DAILY@13 0RF Rx Instructions: administer after the same meal each day midodrine 5 mg tablet 10 mg PO TID 0RF pantoprazole 40 mg tablet,delayed release (DR/EC) 40 mg PO DAILY 0RF potassium chloride 20 mEq Tablet Extended Release 20 meq PO BID 0RF lactulose 20 gram/30 mL solution 15 ml PO Q6H PRN (Reason: CONSTIPATION) Qty: 0 0RF meloxicam 15 mg Tablet 15 mg PO DAILY 0RF gabapentin 100 mg Capsule 100 mg PO TID 0RF Changed spironolactone 50 mg Tablet 100 mg PO DAILY Qty: 0 4RF Discontinued furosemide 40 mg tablet 60 mg PO BID 0RF Discharge Orders: Discharge Order (Routine); Ordered 10/26/21 Ordered By: Abdiel Cardona Referrals: Dr. Neal King [Other] - 02/04/22 3:20 pm (You have a current appt with Dr King on date indicated. Please call their office at number listed a few times a week in the afternoon to see if there have been any cancellations so you can be worked in sooner than current scheduled appt. The staff said this would help greatly. You are on the waitlist but this will remind them to move you up.) Yosvany Segovia MD [Primary Care Provider] - 11/01/21 9:45 am WOUND CARE CLINIC, [Staff Physician] - 10/31/21 8:30 am Discharge Diet: Cardiac Discharge Activity: Use walker/crutches as instructed Patient Instructions: Spironolactone (By mouth), Bumetanide (By mouth) (Bumex), Lactulose (By mouth), Thrombocytopenia (ED), CHF Stoplight, Opioid Safety Activity Restrictions/Additional Instructions: A new referral was sent from Dr King office to start another review of liver transplant. You will need to ensure you adhere to all the requirments in order to be a viable candidate to undergo and receive the liver transplant. If you have not been given those Guidelines please reach out to Dr King's office to inquire. Without compliance you will not be eligible. Case was presented to [facility] Dr. Ramos as well, if you prefer to go to [place] They have your phone number, they will contact you in next few weeks Discharge Attestations Time Spent in Discharge Care*: less than 30 min Status at Discharge: Cognitive status at discharge: cognitively intact, Behavioral status at discharge: cooperative, Quality Metrics Clinical Quality Measures [ No reported AMI, CVA or VTE this stay] Coding Level of Care Code Acute Chg FW DC note Diagnoses Hyponatremia E87.1 Acute kidney injury superimposed on chronic kidney disease N17.9; N18.9 Anasarca R60.1 Anasarca R60.1 Anemia D64.9
--- NOTE | 2021-10-26 19:50 | PC.NURSE ---
End of Shift report Patient was to be discharged today. Patient states, I do not fill like I am ready today. I will go tomorrow. I do not know how you expect me to go home when I can not walk with my nut sack the way it is! I feel like I should get some home health or i am not going home. I know my rights and you can not make me. Patient has spoken to marriage and family social worker. No home health company is able to that the patient's insurance. Patient has follow with wound clinic for his scrotal edema.
[2021-10-26] MEDS: TRAMadol 50 mg Tablet 100 MG PO (20:44)
[2021-10-26] MEDS: zolpidem 5 mg Tablet PO (20:45)
[2021-10-27] VITALS (7 sets, daily range): BP systolic 114–120; BP diastolic 65–79; PULSE 93–110; RESP 16–20; TEMP 36.3–36.8; O2SAT 90–97
[2021-10-27] MEDS: bumetanide 0.25 mg/mL SDV 10 mL 2 MG IVP ×2 (00:05→08:10)
[2021-10-27] MEDS: lactulose oral liq 20 gm/30 mL UDC 10 GM PO (00:43)
[2021-10-27] MEDS: oxyCODONE 5 mg IR Tab/Cap PO ×2 (00:43→08:10)
[2021-10-27] MEDS: dilTIAZem ER (24HR) 120 mg Capsule PO (06:17)
[2021-10-27] MEDS: pantoprazole DR 40 mg Tablet PO (08:10)
[2021-10-27] MEDS: sennosides-docusate Tablet 1 TAB PO (08:10)
[2021-10-27] MEDS: levothyroxine 50 mcg Tablet PO (08:10)
[2021-10-27] MEDS: spironolactone 25 mg Tablet 100 MG PO (08:10)
[2021-10-27] MEDS: potassium chloride ER 20 mEq Tablet PO (08:11)
[2021-10-27] MEDS: midodrine 5 mg TABLET 10 MG PO ×2 (08:11→16:07)
--- NOTE | 2021-10-27 10:55 | PC.NURSE ---
discussed discharge with patient. patient verbalized understanding of discharge instructions, home medications, and follow up appointments. patient stated that his mom who will be his ride will be here at 2PM.
--- NOTE | 2021-10-27 16:17 | PC.NURSE ---
patient stated that his son stated he would be here shortly two hours ago. I attempted to call pts son Cr twice with no answer, and his voicemail is not set up.
--- NOTE | 2021-10-27 16:23 | PC.NURSE ---
patients mother called and she also did not answer.
== END 2021-10-27 17:11 | disposition home health service (06) | DRG 433 ==
LOC: ER 17:57 → MEDSURG 23:51
PROVIDERS: Admitting Provider Internal Medicine; Emergency Provider Family Medicine; PCP Family Medicine; Visit Provider Internal Medicine
DX: K70.31 Alcoholic cirrhosis of liver with ascites (principal); N17.9 Acute kidney failure, unspecified; E87.1 Hypo-osmolality and hyponatremia; K76.6 Portal hypertension; D53.9 Nutritional anemia, unspecified; N50.89 Other specified disorders of the male genital organs; N18.9 Chronic kidney disease, unspecified; D69.6 Thrombocytopenia, unspecified; I48.91 Unspecified atrial fibrillation; N40.1 Benign prostatic hyperplasia with lower urinary tract symptoms; M14.672 Charcot's joint, left ankle and foot; G62.9 Polyneuropathy, unspecified; I73.9 Peripheral vascular disease, unspecified; I50.9 Heart failure, unspecified; D73.1 Hypersplenism; Z87.891 Personal history of nicotine dependence
CPT/HCPCS: 36415; 36430; 49083; 51702; 51798; 71045; 76705; 80048; 80053; 81003; 82140; 83735; 83880; 84484; 85025; 86140; 86850; 86900; 86920; 93005; 94640; 96365; 96372; 96375; 97110; 97124; 97140; 97161; 97167; 97530; 99285; J0696; J1644; J1940; J2405; J3490; P9016; P9041; P9047

== ENCOUNTER 2021-10-31 09:32 | Outpatient (CLI) | payer OTHER, SELFPAY | END 2021-10-31 09:33 | disposition home or self-care (01) | LOC: WOUND 09:34 | PROVIDERS: PCP Family Medicine; Visit Provider Thoracic Surgery (Cardiothoracic Vascular Surgery) | DX: I89.0 Lymphedema, not elsewhere classified (principal); M79.89 Other specified soft tissue disorders; Z87.891 Personal history of nicotine dependence | CPT/HCPCS: 99212 ==

== ENCOUNTER 2021-11-15 13:30 | Inpatient (IN) | payer OTHER, MEDICAID, SELFPAY ==
[2021-11-15] VITALS (7 sets, daily range): BP systolic 120–143; BP diastolic 64–98; PULSE 85–121; RESP 13–17; TEMP 36.7–36.9; O2SAT 93–97; BMI 40.6; BMI 39.2
--- NOTE | 2021-11-15 14:09 | W.ED.AMS ---
HPI - Altered Mental Status General: Chief Complaint: Altered Mental Status Stated Complaint: AMS Time Seen by Provider: 11/15/21 13:45 PFSH ED PFSH: Medical History A-fib Acute dyspnea Acute encephalopathy Acute hypokalemia Acute hyponatremia Alcoholic cirrhosis of liver with ascites Ascites Ascites due to alcoholic cirrhosis Ataxia Atrial fibrillation and flutter Echocardiogram done in 2019 shows an EF of 40 to 45% with hypokinetic septum, anteroseptum and inferior wall, biatrial enlargement Atrial fibrillation with RVR BPH loc w urin obs/LUTS C. difficile diarrhea Charcot's arthropathy Charcot's joint of left foot Chest pain Pleuritic chest pain: Resolved; CHF (congestive heart failure), NYHA class III Chronic hyponatremia Chronic hyponatremia Dyspnea on exertion Encephalopathy, hepatic End-stage liver disease Erectile dysfunction ETOH abuse Ex-smoker Fracture of fourth metatarsal bone of left foot Fracture of second metatarsal bone of left foot Fracture of third metatarsal bone of left foot Hepatorenal syndrome History of abdominal paracentesis Hx of esophageal varices Hyperkalemia Hyponatremia Hyponatremia with excess extracellular fluid volume Laceration of left foot Neuropathy Non-pressure chronic ulcer of other part of left foot limited to breakdown of skin Occult blood in stools Peritoneal dialysis catheter in situ Peyronie disease Pleural effusion Pleural effusion associated with hepatic disorder Pneumonia PVD (peripheral vascular disease) Upper gastrointestinal hemorrhage due to gastritis Surgical History H/O colonoscopy 10-12 yrs H/O esophagogastroduodenoscopy History of tonsillectomy Hx of umbilical hernia repair Hx of vasectomy Status post surgery (07/05/20) peritoneal catheter for ascites Family History Grandfather CAD (coronary artery disease) Grandmother CAD (coronary artery disease) Cancer Father Cancer Denies family history of Anesthesia complication Bleeding disorder Social History Quit status (tobacco): has quit using tobacco Year quit tobacco: 2014 less than a [id number] Second hand smoke exposure: No Smoking risk assessment/counseling performed?: Yes Alcohol intake: current Alcohol intake frequency: 3 or more drinks per day Alcohol type: beer Adopted: No Caregiver/support person: Yes Lives independently: Yes Household members: children Marital status: Current occupational status: unemployed Pets and animals: Yes History of recent travel: No Current gender identity: Male Course Vital Signs: Vital signs: Vital Signs Temperature 98.5 F 11/15/21 13:33 Pulse Rate 105 H 11/15/21 13:33 Respiratory Rate 15 11/15/21 13:33 Blood Pressure 136/77 11/15/21 13:33 Pulse Oximetry 97 11/15/21 13:33 Discharge Plan Discharge Condition: Stable Prescriptions: No Action vitamin B complex [B Complex-Vitamin B12] Tablet 1 tab PO DAILY@16 0RF (DME) [place] Walker See Rx Instructions .Route .MEDSUPPLY Qty: 1 0RF Rx Instructions: As directed diltiazem HCl [Cartia XT] 120 mg capsule,extended release 24hr 120 mg PO QAM 0RF levothyroxine 50 mcg tablet 1 tab PO DAILY 0RF rifaximin 550 mg tablet 1 tab PO DAILY 0RF (DME) [place] boot See Rx Instructions .Route .MEDSUPPLY Qty: 1 0RF Rx Instructions: As directed (DME) [place] Boot to the left and an even-up applied to the right foot See Rx Instructions .Route .MEDSUPPLY Qty: 1 0RF Rx Instructions: As directed by Laureen Spiriva Respimat 2.5 mcg/actuation mist 2 puff inhalation DAILY Qty: 4 0RF tramadol 50 mg Tablet 100 mg PO DAILY PRN (Reason: Pain) 0RF folic acid 1 mg tablet 1 mg PO DAILY@10 0RF fluticasone propionate 50 mcg/actuation spray,suspension 1 - 2 spray intranasal DAILY PRN (Reason: Allergy Symptoms) 0RF albuterol sulfate 90 mcg/actuation HFA aerosol inhaler 2 inh INHALATION Q4H PRN (Reason: shortness of breath/wheezing) 0RF PreserVision AREDS [id number] Capsule 1 cap PO DAILY 0RF ferrous sulfate 27 mg iron Tablet 27 mg PO DAILY 0RF cetirizine [Zyrtec] 10 mg Tablet 10 mg PO DAILY PRN (Reason: Allergy Symptoms) 0RF alfuzosin 10 mg tablet extended release 24 hr 10 mg PO DAILY@13 0RF Rx Instructions: administer after the same meal each day midodrine 5 mg tablet 10 mg PO TID 0RF pantoprazole 40 mg tablet,delayed release (DR/EC) 40 mg PO DAILY 0RF potassium chloride 20 mEq Tablet Extended Release 20 meq PO BID 0RF lactulose 20 gram/30 mL solution 15 ml PO Q6H PRN (Reason: CONSTIPATION) Qty: 0 0RF meloxicam 15 mg Tablet 15 mg PO DAILY 0RF gabapentin 100 mg Capsule 100 mg PO TID 0RF bumetanide 1 mg tablet 1 mg PO BID Qty: 120 3RF lactulose 10 gram/15 mL solution 10 g PO DAILY PRN (Reason: laxative effect) Qty: 946 4RF spironolactone 50 mg Tablet 100 mg PO DAILY Qty: 0 4RF spironolactone 100 mg tablet 100 mg PO DAILY Qty: 90 3RF Referrals: Yosvany Segovia MD [Primary Care Provider] - Coding Level of Care Code ED Watershed Engineer for Tay Rust
--- NOTE | 2021-11-15 14:15 | CT_ITS ---
WS: [id number] CT HEAD TECHNIQUE: Noncontrast CT of the head obtained from the skullbase to the vertex. CLINICAL INFORMATION: AMS COMPARISON: CT 09/04 DLP: 952.[address] scans at [facility] use at least one of these dose optimization techniques: automated e xposure control; mA and/or kV adjustment per patient size (includes targeted exams where dose is matc hed to clinical indication); or iterative reconstruction. FINDINGS: No evidence of intracranial hemorrhage or mass effect. Ventricular system and basal cisterns are velásquez nt. Mild small vessel changes with mild parenchymal volume loss. No extra-axial fluid collections. No evidence of mass or mass effect. Normal arroyo-white differentiation. Paranasal sinuses and mastoid air cells are well aerated. .Normal visualized soft tissues. CT/CT head wo con* [id number] IMPRESSION: 1. No evidence of intracranial hemorrhage or mass effect. 2. Mild small vessel changes with mild parenchymal volume loss. 3. No acute intracranial findings.
--- NOTE | 2021-11-15 14:15 | XR_ITS ---
WS: [id number] Portable AP upright chest, 11/15/2021 Clinical Data: dyspnea/cough Comparison: Portable chest, 11/09/2021. Findings: No nodules, masses or effusions are seen. There is pleural reaction at the left lung base b ut the left lower lobe patchy atelectasis and/or pneumonia has almost totally cleared. Right diaphrag m is elevated. The heart is enlarged. XR/XR chest 1V portable [id number] Impression: 1. Left pleural reaction with almost total clearing of left lower lobe opacity. 2. Cardiomegaly.
--- NOTE | 2021-11-15 14:15 | ECG_ITS ---
[facility] Test Date: 2021-11-15 Pat Name: Yosvany Soto Department: Room: Gender: Male Donor Floor Technician: : 1965 Requested By: Ghassan Brooks Order Number: [id number] Cade MD: Odin Eddy M.D. Measurements Intervals [place] Rate: 99 P: [place]: QRS: 108 QRSD: 98 T: 67 QT: 360 QTc: 463 Interpretive Statements ATRIAL FIBRILLATION LOW QRS VOLTAGE IN PRECORDIAL LEADS [QRS DEFLECTION < 1.0 mV IN CHEST LEADS] INCOMPLETE RIGHT BUNDLE BRANCH BLOCK [90+ ms QRS DURATION, TERMINAL R IN V1/V2, 40+ ms S IN I/aVL/V4/V5/V6] ANTEROLATERAL MYOCARDIAL INFARCTION , PROBABLY RECENT [40+ ms Q WAVE IN I/aVL/V3-V6] ACUTE CA Compared to ECG 11/15/2021 15:17:58 Low QRS voltage now present Myocardial infarct finding still present Electronically Signed On 11-15-2021 17:47:50 GUNITE NOZZLE OPERATOR by Odin Eddy M.D. [id number]
--- NOTE | 2021-11-15 14:25 | W.ED.SEIZURE ---
HPI - Seizure General: Chief Complaint: Altered Mental Status Stated Complaint: AMS Time Seen by Provider: 11/15/21 13:45 Source: patient Mode of arrival: EMS Limitations: altered mental status History of Present Illness: HPI Narrative: 56-old male presents emergency room via EMS with complaints of generally not feeling well and mild confusion. He is able to tell me the year and where he is at but when I pressed him much further than that he is unable to really answer he thinks it is October not November although it is only October 18 today. He cannot specifically tell me what is wrong other than he does not feel well. He has a persistent twitching rhythmic motion in the left arm and shoulder that varies in rate. He states he is not had this before it is not new. There is no family members at the bedside to confirm. He denies chest pain or abdominal pain. Denies any nausea vomiting or diarrhea. He had related that this is how he feels in the past when his potassium and sodium levels are abnormal. complaint: possible seizure Onset (ago): hour(s) Witnessed: No Trauma: No Seizure History: No Place: Home Possible Precipitating Event: none Associated symptoms: Reports confusion, malaise and weakness; Deny chest pain, chills, cough, fever(s) or short of breath Treatments prior to arrival: none Review of Systems General: Reports: Other (Difficult to obtain due to patient's altered mental status patient is able ) Const: Reports: malaise; Denies: fever(s) or chills Card: Denies: chest pain Resp: Denies: dyspnea, productive cough or non-productive cough GI: Denies: abdominal pain, nausea, vomiting, diarrhea or constipation : Denies: flank pain or dysuria Neuro: Reports: confusion PFSH ED PFSH: Medical History (Updated 11/15/21 @ 19:49 by Max Goodson MD) A-fib Acute dyspnea Acute encephalopathy Acute hypokalemia Acute hyponatremia Acute kidney injury superimposed on chronic kidney disease SAMI (acute kidney injury) Alcoholic cirrhosis of liver with ascites Anasarca Anasarca Anemia Ascites Ascites due to alcoholic cirrhosis Ataxia Atrial fibrillation and flutter Echocardiogram done in 2019 shows an EF of 40 to 45% with hypokinetic septum, anteroseptum and inferior wall, biatrial enlargement Atrial fibrillation with RVR BPH loc w urin obs/LUTS C. difficile diarrhea Charcot's arthropathy Charcot's joint of left foot Chest pain Pleuritic chest pain: Resolved; CHF (congestive heart failure) CHF (congestive heart failure), NYHA class III Chronic hyponatremia Chronic hyponatremia Decompensation of cirrhosis of liver Dyspnea on exertion Encephalopathy, hepatic End-stage liver disease Erectile dysfunction ETOH abuse Ex-smoker Fracture of fourth metatarsal bone of left foot Fracture of second metatarsal bone of left foot Fracture of third metatarsal bone of left foot Hepatorenal syndrome History of abdominal paracentesis Hx of esophageal varices Hyperkalemia Hyponatremia Hyponatremia Hyponatremia with excess extracellular fluid volume Laceration of left foot Neuropathy Non-pressure chronic ulcer of other part of left foot limited to breakdown of skin Occult blood in stools Peritoneal dialysis catheter in situ Peyronie disease Pleural effusion Pleural effusion associated with hepatic disorder Pneumonia PVD (peripheral vascular disease) Upper gastrointestinal hemorrhage due to gastritis Surgical History H/O colonoscopy 10-12 yrs H/O esophagogastroduodenoscopy History of tonsillectomy Hx of umbilical hernia repair Hx of vasectomy Status post surgery (07/05/20) peritoneal catheter for ascites Family History Grandfather CAD (coronary artery disease) Grandmother CAD (coronary artery disease) Cancer Father Cancer Denies family history of Anesthesia complication Bleeding disorder Social History Quit status (tobacco): has quit using tobacco Year quit tobacco: 2014 less than a [id number] Second hand smoke exposure: No Smoking risk assessment/counseling performed?: Yes Alcohol intake: current Alcohol intake frequency: 3 or more drinks per day Alcohol type: beer Adopted: No Caregiver/support person: Yes Lives independently: Yes Household members: children Marital status: Current occupational status: unemployed Pets and animals: Yes History of recent travel: No Current gender identity: Male Physical Exam Const: GENERAL APPEARANCE: lethargic NUTRITIONAL APPEARANCE: obese ORIENTATION/CONSCIOUSNESS: Yes awake, Yes oriented to person, Yes oriented to place and Yes lethargic HENMT: COMMON NORMALS: normocephalic, atraumatic, hearing grossly normal bilaterally, EAC's normal, TM's normal bilaterally and Normal external nose present HEAD & SCALP: normocephalic and atraumatic NOSE: Normal external nose present EXTERNAL AUDITORY CANAL: EAC's normal TYMPANIC MEMBRANE: TM's normal bilaterally MOUTH: Normal oral and palatal mucosa present, lip normal and tongue normal THROAT: posterior oropharynx normal and tonsils normal Eye: COMMON NORMALS: Equal, round and reactive pupils present, EOMs intact bilaterally, conjunctivae normal and no scleral icterus CONJUNCTIVA: Yes conjunctivae normal PUPIL: Yes Equal, round and reactive pupils present Neck/C-Spine: COMMON NORMALS: no meningeal signs, no JVD and Thyroid normal THYROID: Thyroid normal and asymmetrical Lymph: LYMPHATIC: no lymphadenopathy noted Resp: COMMON NORMALS: normal respiratory effort, No retractions, No use of accessory muscles and clear to auscultation bilaterally AUSCULTATION: clear to auscultation bilaterally Cardio: COMMON NORMALS: no JVD, regular rate, regular rhythm and No murmurs present (Cardio) RATE: regular rate RHYTHM: regular rhythm HEART SOUNDS: no murmurs GI: COMMON NORMALS: Soft to palpation and No hepatosplenomegaly present AUSCULTATION: Yes normoactive bowel sounds PALPATION: Yes Soft to palpation, No Tenderness to palpation present (GI), No Guarding due to palpation present (GI) and Yes No hepatosplenomegaly present : COMMON NORMALS: Yes no CVA tenderness BLADDER/KIDNEY EXAM: Yes no CVA tenderness Back/Pelvis: COMMON NORMALS: no CVA tenderness LUMBAR SPINE/LOWER BACK: Yes normal to inspection Extremity: COMMON NORMALS: normal to inspection, capillary refill normal, no clubbing, cyanosis or edema, no calf tenderness and no pedal edema Neuro: SENSORIUM/ORIENTATION: Yes oriented to person, Yes oriented to place and Yes lethargic MENINGEAL SIGNS: Yes no meningeal signs Skin: COMMON NORMALS: no rashes or lesions noted GENERAL SKIN EXAM: no rashes or lesions noted Course Vital Signs: Vital signs: Vital Signs Temperature 98.2 F 11/16/21 04:00 Pulse Rate 90 11/16/21 07:25 Respiratory Rate 16 11/16/21 07:25 Blood Pressure 144/74 11/16/21 04:00 Pulse Oximetry 97 11/16/21 07:25 MDM - Seizure MDM Narrative Medical decision making narrative: Patient has liver cirrhosis but his ammonia level is actually near his baseline I do not think that that is causing his symptoms he seems to be having focal seizure with some alteration of mental status. However given his other medical problems or other potentials labs reviewed no obvious findings. Patient had ongoing seizing he was unable to tell me when this started his mother was came to the bedside later and still was not able to tell me a solid time when it began suspect this been going on for at least a day from what I could gather. Patient was given Ativan and Keppra which did stop the focal seizure. Discussed with Dr. Muniz she recommends admission and starting Keppra thousand twice daily discussed with hospitalist orders written Medical Records Attestation: I reviewed the patient's medical records. Lab Data Attestation: I reviewed the patient's lab results. Result diagrams: 11/16/21 05:15 11/16/21 05:15 Labs: Radiology Impressions Chest X-Ray 11/15/21 14:15 Impression: 1. Left pleural reaction with almost total clearing of left lower lobe opacity. 2. Cardiomegaly. Head CT 11/15/21 14:15 IMPRESSION: 1. No evidence of intracranial hemorrhage or mass effect. 2. Mild small vessel changes with mild parenchymal volume loss. 3. No acute intracranial findings. Laboratory Results WBC 4.3 10^3/uL (4.0-10.0) 11/15/21 13:55 RBC 3.21 10^6/uL (4.1-5.3) L 11/15/21 13:55 Hgb 10.1 g/dL (11.7-16.6) L 11/15/21 13:55 Hct 31.8 % (42.0-52.0) L 11/15/21 13:55 MCV 99.1 fl (80-94) H 11/15/21 13:55 MCH 31.5 pg (28.0-34.0) 11/15/21 13:55 MCHC 31.8 g/dL (30.0-36.0) 11/15/21 13:55 RDW 15.6 % (12.1-15.1) H 11/15/21 13:55 Plt Count 165 10^3/cmm (130-400) 11/15/21 13:55 MPV 9.9 fL (7.4-10.4) 11/15/21 13:55 Neut % (Auto) 63.6 % 11/15/21 13:55 Lymph % (Auto) 15.2 % 11/15/21 13:55 Mclennan % (Auto) 15.2 % 11/15/21 13:55 Eos % (Auto) 4.4 % 11/15/21 13:55 Baso % (Auto) 1.4 % 11/15/21 13:55 Neut # (Auto) 2.71 10^3/uL (1.8-7.7) 11/15/21 13:55 Lymph # (Auto) 0.7 10^3/uL (0.8-4.8) L 11/15/21 13:55 Mclennan # (Auto) 0.7 10^3/uL (0.2-0.9) 11/15/21 13:55 Eos # (Auto) 0.2 10^3/uL (0.0-0.8) 11/15/21 13:55 Baso # (Auto) 0.1 10^3/uL (0.0-0.1) 11/15/21 13:55 Nucleated RBC % (auto) 0 % 11/15/21 13:55 Nucleated RBCs # 0.0 /100WBC 11/15/21 13:55 Specimen Type Arterial 11/15/21 14:44 Sample Site Radial, left 11/15/21 14:44 ABG pH 7.43 (7.35-7.45) 11/15/21 14:44 ABG pCO2 40.6 mmHg (35-45) 11/15/21 14:44 ABG pO2 84.0 mmHg (80.0-100.0) 11/15/21 14:44 ABG HCO3 27.0 mmol/L (22-26) H 11/15/21 14:44 ABG O2 Saturation 96.8 11/15/21 14:44 ABG Base Excess 2.5 mmol/L (-2.0-2.0) H 11/15/21 14:44 Marcelo Test Pos 11/15/21 14:44 A-a O2 Gradient 2.0 mmHg (5-10) L 11/15/21 14:44 Hematocrit 32.2 % (42-52) L 11/15/21 14:44 Hgb O2 Saturation 95.0 % (95-100) 11/15/21 14:44 Carboxyhemoglobin 1.6 %THgb (0.4-20.1) 11/15/21 14:44 Methemoglobin 0.3 % (0.4-1.5) L 11/15/21 14:44 Total Hemoglobin 10.5 g/dL (14-18) L 11/15/21 14:44 Sodium 138.0 mmol/L (131-143) 11/15/21 14:44 Potassium 4.5 mmol/L (3.5-5.0) 11/15/21 14:44 Glucose 97.0 mg/dL (70-115) 11/15/21 14:44 Ionized Calcium 1.2 mmol/L (1.1-1.4) 11/15/21 14:44 O2 Delivery Device Room air 11/15/21 14:44 FiO2 21.0 % 11/15/21 14:44 Computer Instructor ID Monro 11/15/21 14:44 Sodium 133 mmol/L (136-145) L 11/15/21 13:55 Potassium 4.5 mmol/L (3.5-5.1) 11/15/21 13:55 Chloride 97 mmol/L (98-107) L 11/15/21 13:55 Carbon Dioxide 25 mmol/L (22-29) 11/15/21 13:55 Anion Gap 15.5 (5-19) 11/15/21 13:55 BUN 34 mg/dL (6-20) H 11/15/21 13:55 Creatinine 2.1 mg/dL (0.7-1.2) H 11/15/21 13:55 GFR Calculation 32.7 mL/min (90-130) L 11/15/21 13:55 Glucose 100 mg/dL (65-115) 11/15/21 13:55 Calculated Osmolality 284 mOsm/kg (285-295) L 11/15/21 13:55 Lactic Acid 1.1 mmol/L (0.5-2.2) 11/15/21 14:43 Calcium 8.6 mg/dL (8.5-10.5) 11/15/21 13:55 Magnesium 1.9 mg/dL (1.7-2.3) 11/15/21 13:55 Total Bilirubin 1.0 mg/dL (0.15-1.2) 11/15/21 13:55 AST 20 U/L (0-40) 11/15/21 13:55 ALT 8 U/L (0-41) 11/15/21 13:55 Alkaline Phosphatase 89 IU/L (40-130) 11/15/21 13:55 Ammonia 82 umol/L (16-60) H 11/15/21 16:35 Creatine Kinase 39 U/L (39-308) 11/15/21 13:55 Troponin T Baseline 70 ng/L (0-15) H 11/15/21 13:55 Troponin T 120 Minute 64.01 ng/L (0-15) H 11/15/21 15:57 Delta Troponin T -5.99 ABS# (0-10) L 11/15/21 15:57 Total Protein 6.8 g/dL (6.6-8.7) 11/15/21 13:55 Albumin 3.9 g/dL (3.5-5.2) 11/15/21 13:55 Globulin 2.9 g/dL (1.3-4.6) 11/15/21 13:55 Urine Color Yellow (Yellow) 11/15/21 14:49 Urine Appearance Cloudy (CLEAR) 11/15/21 14:49 Urine pH 8 (5-7) H 11/15/21 14:49 Ur Specific [place] 1.015 (1.005-1.030) 11/15/21 14:49 Urine Protein Neg (Negative) 11/15/21 14:49 Urine Glucose (UA) Norm (Normal) 11/15/21 14:49 Urine Ketones Negative (Negative) 11/15/21 14:49 Urine Blood 2+ (Negative) H 11/15/21 14:49 Urine Nitrate Positive (Negative) H 11/15/21 14:49 Urine Bilirubin Neg (Negative) 11/15/21 14:49 Prot Sulfosalicylic Acd Negative (Negative) 11/15/21 14:49 Urine Urobilinogen Norm mg/dL (Negative) 11/15/21 14:49 Ur Leukocyte Esterase 1+ (Negative) H 11/15/21 14:49 Urine RBC 15-25 /hpf (0-2) H 11/15/21 14:49 Urine WBC 15-25 /hpf (0-5) H 11/15/21 14:49 Ur Squamous Epith Cells 0-4 /hpf (0-5) H 11/15/21 14:49 Amorphous Sediment Not Reportable 11/15/21 14:49 Urine Bacteria 3+ /hpf (NONE) H 11/15/21 14:49 Urine Yeast 3+ /hpf H 11/15/21 14:49 Serum Ketones Negative (Negative) 11/15/21 14:43 Discharge Plan Discharge Patient Disposition: Admitted As Inpatient Admit Provider: Max Goodson Condition: Stable Coding Level of Care Code ED Yarn Preparation Supervisor for Chg Fwd Exam Comprehensive
[2021-11-15 14:30] LABS: Basophils # 0.1 10^3/uL (0.0-0.1); Basophils % 1.4 %; Eosinophils # 0.2 10^3/uL (0.0-0.8); Eosinophils % 4.4 %; Hematocrit 31.8 % (42.0-52.0); Hemoglobin 10.1 g/dL (11.7-16.6); Lymphocytes # 0.7 10^3/uL (0.8-4.8); Lymphocytes % 15.2 %; Mean Corpuscular HGB Conc 31.8 g/dL (30.0-36.0); Mean Corpuscular Hemoglobin 31.5 pg (28.0-34.0); Mean Corpuscular Volume 99.1 fl (80-94); Mean Platelet Volume 9.9 fL (7.4-10.4); Monocytes # 0.7 10^3/uL (0.2-0.9); Monocytes % 15.2 %; Neutrophils # 2.71 10^3/uL (1.8-7.7); Neutrophils % 63.6 %; Nucleated Red Blood Cells % 0 %; Platelet Count 165 10^3/cmm (130-400); Red Blood Count 3.21 10^6/uL (4.1-5.3); Red Cell Distribution Width 15.6 % (12.1-15.1); White Blood Count 4.3 10^3/uL (4.0-10.0)
[2021-11-15] MEDS: LORazepam 2 mg/mL INJ 1 mL IVP (14:41)
[2021-11-15 14:43] LABS: Alanine Aminotransferase 8 U/L (0-41); Albumin Level 3.9 g/dL (3.5-5.2); Alkaline Phosphatase 89 IU/L (40-130); Anion Gap 15.5 (5-19); Aspartate Amino Transferase 20 U/L (0-40); Blood Urea Nitrogen 34 mg/dL (6-20); Calcium 8.6 mg/dL (8.5-10.5); Carbon Dioxide 25 mmol/L (22-29); Chloride 97 mmol/L (98-107); Creatine Phosphokinase 39 U/L (39-308); Globulin 2.9 g/dL (1.3-4.6); Glomerular Filtration Rate 32.7 mL/min (90-130); Glucose 100 mg/dL (65-115); Magnesium 1.9 mg/dL (1.7-2.3); Osmolality Calculated 284 mOsm/kg (285-295); Potassium 4.5 mmol/L (3.5-5.1); Sodium 133 mmol/L (136-145); Total Protein 6.8 g/dL (6.6-8.7)
[2021-11-15 14:44] LABS: Troponin(5th) Baseline 70 ng/L (0-15)
[2021-11-15 14:55] LABS: ABG PCO2 40.6 mmHg (35-45); ABG PH Result 7.43 (7.35-7.45); Arterial Blood Gas Hematocrit 32.2 % (42-52); Base Excess ABG 2.5 mmol/L (-2.0-2.0); Blood Gas Allen Test Pos; Blood Gas Operator Identificat MONRO; Blood Gas Sample Site Radial, left; Blood Gas Sample Type Arterial; Carboxyhemoglobin 1.6 %THgb (0.4-20.1); Ionized Calcium Level - ABG 1.2 mmol/L (1.1-1.4); Methemoglobin 0.3 % (0.4-1.5); Oxygen Device ROOM AIR; Oxygen Saturation ABG 96.8; Potassium Level - ABG 4.5 mmol/L (3.5-5.0); Total Hemoglobin 10.5 g/dL (14-18)
[2021-11-15 15:06] LABS: Ketone (Acetest) Serum Negative (Negative)
[2021-11-15 15:11] LABS: Lactic Sepsis W/Reflex 1.1 mmol/L (0.5-2.2)
[2021-11-15 15:15] LABS: Blood Urine 2+ (Negative); Glucose Urine UA Norm (Normal); Ketones Urine Negative (Negative); Nitrate Urine Positive (Negative); Protein Urine Neg (Negative); Specific Gravity, Urine 1.015 (1.005-1.030); Urine Appearance Cloudy (CLEAR); Urine Color Yellow (Yellow); pH Urine 8 (5-7)
[2021-11-15 15:16] LABS: Add Urine Microscopic? YES; Bilirubin Urine Neg (Negative); Leukocyte Esterase Urine 1+ (Negative); Sulfosalicylic Acid Urine Negative (Negative); Urobilinogen Urine Norm (Negative)
[2021-11-15 15:37] LABS: Add Urine Culture? Yes; Bacteria Urine 3+ /hpf; RBC Urine 15-25 /hpf (0-2); Squamous Epithelial Cell Urine 0-4 /hpf (0-5); WBC Urine 15-25 /hpf (0-5)
--- NOTE | 2021-11-15 16:15 | ECG_ITS ---
[facility] Test Date: 2021-11-15 Pat Name: Yosvany Soto Department: Room: Gender: Male Circular Clerk: : 1965 Requested By: Ghassan Brooks Order Number: [id number] aCde MD: Odin Eddy M.D. Measurements Intervals [place] Rate: 111 P: [place]: QRS: 131 QRSD: 91 T: 13 QT: 307 QTc: 419 Interpretive Statements ATRIAL FIBRILLATION WITH RAPID VENTRICULAR RESPONSE INCOMPLETE RIGHT BUNDLE BRANCH BLOCK [90+ ms QRS DURATION, TERMINAL R IN V1/V2, 40+ ms S IN I/aVL/V4/V5/V6] POSSIBLE RIGHT VENTRICULAR HYPERTROPHY [SOME/ALL OF: PROMINENT R IN V1, LATE TRANSITION, RAD, LUCINDA, SSS] ANTEROSEPTAL MYOCARDIAL INFARCTION , OF INDETERMINATE AGE [40+ ms Q WAVE IN V1-V4] Compared to ECG 10/20/2021 15:38:00 Incomplete right bundle-branch block now present Myocardial infarct finding still present Electronically Signed On 11-15-2021 17:51:18 VEST FRONT PRESSER by Odin Eddy M.D. [id number]
[2021-11-15 17:12] LABS: Ammonia 82 umol/L (16-60)
[2021-11-15 17:46] LABS: Troponin 5 2HR 64.01 ng/L (0-15); Troponin 5 2HR Delta -5.99 ABS# (0-10)
[2021-11-15] MEDS: cefTRIAXone 1,000 MG in sodium chloride 0.9% (plus) 50 ML 100 MG IV (18:24)
--- NOTE | 2021-11-15 19:42 | PM.HP ---
Providers/Chief Complaint Admitting Physician: Max Goodson Primary Care Provider: Yosvany Segovia MD Chief Complaint: AMS History of Present Illness 56-year-old gentleman with history of liver cirrhosis with remote history of alcohol use disorder, hepatorenal syndrome, decompensated cirrhosis with recurrent ascites, transiently peritoneal drain, however, with recurrent peritonitis drain has since been removed, currently his mother tells me he is following with [facility] hepatology for consideration of liver transplantation, presents to the ER generally not feeling well, with mild confusion, with noted persistent twitching and stereotyped movements of left arm and shoulder with concern for possible partial seizure he is started on Keppra infusion. The twitching/rhythmic/start out movement of the left shoulder reported resolved. He is moving his left arm, left leg intermittently flexing both, but then repositions and extends them without rhythmic movements, although seems to be doing this on the left side alone. He denies pain, states he is feeling cold. Noted hyperammonemia, ammonia 82. Mother reports he lives alone, but she checks on him, and he has not had a bowel movement yesterday. CT of the head without acute findings. UA with positive nitrate, 15-25 RBC, 50-25 WBC, 3+ bacteria, 3+ yeast. He is started on ceftriaxone. His mother states that otherwise yesterday he was doing well. Review of Systems General: Reports: ROS unobtainable due to mental status Medications/Allergies Home Medications Medication Instructions Recorded Confirmed Last Taken Type vitamin B complex (B 1 tab PO DAILY@16 01/04/20 11/15/21 10/19/21 History Complex-Vitamin B12) tramadol 50 mg tablet 100 mg PO DAILY PRN 05/05/20 11/15/21 07/09/21 History folic acid 1 mg tablet 1 mg PO DAILY@10 08/23/20 11/15/21 10/19/21 History Nenana boot #1 ea 09/01/20 11/15/21 Unknown Rx fluticasone propionate 50 1 - 2 spray INTRANASAL DAILY PRN 09/08/20 11/15/21 07/09/21 History mcg/actuation nasal spray,suspension Cam Walker #1 ea NS 10/02/20 11/15/21 Unknown Rx albuterol sulfate 90 mcg/actuation 2 inh INHALATION Q4H PRN 12/11/20 11/15/21 07/09/21 History aerosol inhaler ferrous sulfate 27 mg iron tablet 27 mg PO DAILY 02/11/21 11/15/21 10/19/21 History vitamins A,C,M-trkd-ktjbau 14,320 1 cap PO DAILY 02/11/21 11/15/21 10/19/21 History unit-226 mg-200 unit capsule (PreserVision AREDS) Nenana Boot to the left and an #1 ea 03/23/21 11/15/21 Unknown Rx even-up applied to the right foot diltiazem HCl 120 mg 120 mg PO QAM 04/24/21 11/15/21 10/19/21 History capsule,extended release 24 hr (Cartia XT) alfuzosin 10 mg tablet,extended 10 mg PO DAILY@13 05/24/21 11/15/21 10/19/21 History release 24 hr cetirizine 10 mg tablet (Zyrtec) 10 mg PO DAILY PRN 05/24/21 11/15/21 07/09/21 History levothyroxine 50 mcg tablet 1 tab PO DAILY 08/15/21 11/15/21 10/19/21 History rifaximin 550 mg tablet 1 tab PO DAILY 08/15/21 11/15/21 10/19/21 History midodrine 5 mg tablet 10 mg PO TID 09/01/21 11/15/21 10/19/21 History pantoprazole 40 mg tablet,delayed 40 mg PO DAILY 09/01/21 11/15/21 10/19/21 History release potassium chloride 20 mEq 20 meq PO BID 09/01/21 11/15/21 10/19/21 History tablet,extended release lactulose 20 gram/30 mL oral 15 ml PO Q6H PRN #0 ml 09/05/21 11/15/21 07/09/21 Rx solution tiotropium bromide 2.5 2 puff INHALATION DAILY #4 g 10/11/21 11/15/21 10/19/21 Rx mcg/actuation mist for inhalation (Spiriva Respimat) gabapentin 100 mg capsule 100 mg PO TID 10/20/21 11/15/21 10/20/21 History meloxicam 15 mg tablet 15 mg PO DAILY 10/20/21 11/15/21 10/20/21 History bumetanide 1 mg tablet 1 mg PO BID #120 tab 10/26/21 11/15/21 Unknown Rx lactulose 10 gram/15 mL oral 10 g (15 mL) PO DAILY PRN #946 ml 10/26/21 11/15/21 Unknown Rx solution spironolactone 100 mg tablet 100 mg PO DAILY #90 tab 10/26/21 11/15/21 Unknown Rx spironolactone 50 mg tablet 100 mg PO DAILY #0 tab 10/26/21 11/15/21 10/19/21 Rx Allergies Allergy/AdvReac Type Severity Reaction Status Date / Time Penicillins Allergy ALGY-Difficulty Verified 11/15/21 16:25 Breathing Sulfa (Sulfonamide Allergy Unknown Verified 11/15/21 16:25 Antibiotics) PFSH Acute PFSH: Medical History (Updated 11/15/21 @ 19:49 by Max Goodson MD) A-fib Acute dyspnea Acute encephalopathy Acute hypokalemia Acute hyponatremia Acute kidney injury superimposed on chronic kidney disease SAMI (acute kidney injury) Alcoholic cirrhosis of liver with ascites Anasarca Anasarca Anemia Ascites Ascites due to alcoholic cirrhosis Ataxia Atrial fibrillation and flutter Echocardiogram done in 2019 shows an EF of 40 to 45% with hypokinetic septum, anteroseptum and inferior wall, biatrial enlargement Atrial fibrillation with RVR BPH loc w urin obs/LUTS C. difficile diarrhea Charcot's arthropathy Charcot's joint of left foot Chest pain Pleuritic chest pain: Resolved; CHF (congestive heart failure) CHF (congestive heart failure), NYHA class III Chronic hyponatremia Chronic hyponatremia Decompensation of cirrhosis of liver Dyspnea on exertion Encephalopathy, hepatic End-stage liver disease Erectile dysfunction ETOH abuse Ex-smoker Fracture of fourth metatarsal bone of left foot Fracture of second metatarsal bone of left foot Fracture of third metatarsal bone of left foot Hepatorenal syndrome History of abdominal paracentesis Hx of esophageal varices Hyperkalemia Hyponatremia Hyponatremia Hyponatremia with excess extracellular fluid volume Laceration of left foot Neuropathy Non-pressure chronic ulcer of other part of left foot limited to breakdown of skin Occult blood in stools Peritoneal dialysis catheter in situ Peyronie disease Pleural effusion Pleural effusion associated with hepatic disorder Pneumonia PVD (peripheral vascular disease) Upper gastrointestinal hemorrhage due to gastritis Surgical History H/O colonoscopy 10-12 yrs H/O esophagogastroduodenoscopy History of tonsillectomy Hx of umbilical hernia repair Hx of vasectomy Status post surgery (07/05/20) peritoneal catheter for ascites Family History Grandfather CAD (coronary artery disease) Grandmother CAD (coronary artery disease) Cancer Father Cancer Denies family history of Anesthesia complication Bleeding disorder Social History Quit status (tobacco): has quit using tobacco Year quit tobacco: 2014 less than a [id number] Second hand smoke exposure: No Smoking risk assessment/counseling performed?: Yes Alcohol intake: current Alcohol intake frequency: 3 or more drinks per day Alcohol type: beer Adopted: No Caregiver/support person: Yes Lives independently: Yes Household members: children Marital status: Current occupational status: unemployed Pets and animals: Yes History of recent travel: No Current gender identity: Male Vitals/I&O/Wt Last Vital Signs Temp 98.5 F 11/15/21 13:33 Pulse 94 11/15/21 19:32 Resp 13 11/15/21 19:32 BP 143/65 11/15/21 19:32 Pulse Ox 93 11/15/21 19:32 11/15/21 11/15/21 11/15/21 06:59 14:59 22:59 Intake Total 110 / 110 50 / 160 Balance 110 / 110 50 / 160 Weight last 48 hrs Weight 136.078 kg Physical Exam Narrative: Mother at bedside Const: COMMON NORMALS: no acute distress GENERAL APPEARANCE: lethargic and other (Wakes up to loud voice, some brief answers, but hard to tell if reliable) NUTRITIONAL APPEARANCE: obese ORIENTATION/CONSCIOUSNESS: Yes confused and Yes lethargic HENMT: COMMON NORMALS: oropharynx normal Neck/C-Spine: COMMON NORMALS: no JVD Resp: COMMON NORMALS: normal respiratory effort and clear to auscultation bilaterally AUSCULTATION: clear to auscultation bilaterally Cardio: COMMON NORMALS: no JVD, regular rhythm, S1 normal heart sound present, S2 normal heart sound present and No murmurs present (Cardio) RHYTHM: regular rhythm HEART SOUNDS: S1 normal heart sound present and S2 normal heart sound present GI: COMMON NORMALS: Normal to inspection, nondistended, normoactive bowel sounds present, Soft to palpation and non-tender PALPATION: Yes Soft to palpation Extremity: COMMON NORMALS: no joint enlargement GENERAL: Yes edema (2+, but mother states significantly less) Neuro: COMMON NORMALS: patient oriented x3 and moves all extremities Skin: COMMON NORMALS: no rashes or lesions noted GENERAL SKIN EXAM: no rashes or lesions noted OTHER: Maceration of skin anterior lowery, no weeping, wrinkling with decreased edema Data : 11/15/21 13:55 11/15/21 13:55 A&P Assessment and plan (1) Stereotyped movements: Possible seizure with twitching, reported rapid repeat start of movements of the left shoulder, arm, received Keppra. Continue. Continues intermittently flexing left arm, left hip. Denies pain. Afebrile. No leukocytosis, mild tachycardia. No sign of sepsis at this time. Treat UTI. He and mother denies any recent medication changes. Status: Acute (2) UTI (urinary tract infection): Continue ceftriaxone. Follow-up urine culture. Status: Acute (3) SAMI (acute kidney injury): Has meloxicam listed on medication list, unclear if he is taking is. Hold and discontinue. Hold diuretics for now History of CKD, hepatorenal syndrome. Status: Acute (4) Acute encephalopathy: Acute metabolic encephalopathy secondary to hepatic encephalopathy with elevated ammonia, 82, as well as urinary tract infection. Continue lactulose, rifaximin. Follow-up ammonia level. Treat UTI. Status: Acute Plan Atrial fibrillation: Mild RVR, heart rates 108-115. Continue diltiazem. Is not on anticoagulation. Mild hyponatremia Recurrent ascites and anasarca, recently has lost quite a bit of water edema per his mother Anemia Liver cirrhosis: Reported to be followed with [facility] with consideration of liver transplantation Other chronic conditions noted Attestations Medical Necessity Statement*: Admission of over 2 midnights is anticipated for assessment management of possible seizure, acute encephalopathy, UTI, SAMI and gentleman with underlying liver cirrhosis, hepatorenal syndrome. 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
--- NOTE | 2021-11-15 20:15 | ECG_ITS ---
[facility] Test Date: 2021-11-15 Pat Name: Yosvany Soto Department: Room: Gender: Male Grind Operator: : 1965 Requested By: Ghassan Brooks Order Number: [id number] Cade MD: Odin Eddy M.D. Measurements Intervals [place] Rate: 115 P: [place]: QRS: 110 QRSD: 93 T: 83 QT: 344 QTc: 477 Interpretive Statements ATRIAL FIBRILLATION WITH RAPID VENTRICULAR RESPONSE LOW QRS VOLTAGE [QRS DEFLECTION < 0.5/1.0 mV IN LIMB/CHEST LEADS] INCOMPLETE RIGHT BUNDLE BRANCH BLOCK [90+ ms QRS DURATION, TERMINAL R IN V1/V2, 40+ ms S IN I/aVL/V4/V5/V6] ANTEROLATERAL MYOCARDIAL INFARCTION , OF INDETERMINATE AGE [40+ ms Q WAVE IN I/aVL/V3-V6] WARNING: DATA QUALITY MAY AFFECT INTERPRETATION Compared to ECG 11/15/2021 15:35:58 No significant changes Electronically Signed On 11-15-2021 17:51:56 PICK UP TRUCK DRIVER by Odin Eddy M.D. [id number]
[2021-11-15] MEDS: heparin 5,000 unit/mL INJ 1 mL 5000 UNIT SUBCUT (20:29)
[2021-11-15] MEDS: gabapentin 100 mg Capsule PO (20:29)
[2021-11-15] MEDS: lactulose oral liq 20 gm/30 mL UDC 10 GM PO ×2 (20:37→23:39)
[2021-11-15 21:19] LABS: Troponin 5 6HR 71.18 ng/L (0-15)
[2021-11-15 21:21] LABS: Troponin 5 6HR Delta 1.18 ng/L (0-12)
--- NOTE | 2021-11-15 23:28 | PC.NURSE ---
2030 Pt reports that Home health changed dressing today to BLE. Dressings D/I to BLE. Will leave in place until doctor see pt in am to provide orders for dressings.
--- NOTE | 2021-11-15 23:34 | PC.NURSE ---
2230 Pt more alert. Talks to mother on cell phone. Oriented x 3. No distress.
--- NOTE | 2021-11-15 23:46 | PC.NURSE ---
i reported high pulse 101 to nurse
[2021-11-16 04:00] VITALS: BP 144/74; PULSE 95; RESP 17; TEMP 36.8; O2SAT 92
[2021-11-16] MEDS: dilTIAZem ER (24HR) 120 mg Capsule PO (04:43)
[2021-11-16] MEDS: lactulose oral liq 20 gm/30 mL UDC 10 GM PO ×4 (04:43→16:00)
[2021-11-16 05:24] LABS: Basophils # 0.1 10^3/uL (0.0-0.1); Basophils % 1.4 %; Eosinophils # 0.4 10^3/uL (0.0-0.8); Hematocrit 32.4 % (42.0-52.0); Lymphocytes # 1.1 10^3/uL (0.8-4.8); Lymphocytes % 22.6 %; Mean Corpuscular HGB Conc 30.9 g/dL (30.0-36.0); Mean Corpuscular Hemoglobin 31.6 pg (28.0-34.0); Mean Corpuscular Volume 102.5 fl (80-94); Mean Platelet Volume 9.3 fL (7.4-10.4); Monocytes # 0.7 10^3/uL (0.2-0.9); Neutrophils # 2.74 10^3/uL (1.8-7.7); Neutrophils % 54.8 %; Nucleated Red Blood Cells % 0 %; Platelet Count 151 10^3/cmm (130-400); Red Blood Count 3.16 10^6/uL (4.1-5.3); Red Cell Distribution Width 15.4 % (12.1-15.1)
[2021-11-16 05:44] LABS: Alanine Aminotransferase 8 U/L (0-41); Albumin Level 3.7 g/dL (3.5-5.2); Alkaline Phosphatase 74 IU/L (40-130); Anion Gap 15.2 (5-19); Aspartate Amino Transferase 18 U/L (0-40); Blood Urea Nitrogen 31 mg/dL (6-20); Calcium 8.7 mg/dL (8.5-10.5); Carbon Dioxide 23 mmol/L (22-29); Chloride 98 mmol/L (98-107); Globulin 2.6 g/dL (1.3-4.6); Glomerular Filtration Rate 39.1 mL/min (90-130); Glucose 89 mg/dL (65-115); Osmolality Calculated 280 mOsm/kg (285-295); Potassium 4.2 mmol/L (3.5-5.1); Sodium 132 mmol/L (136-145); Total Bilirubin 1.3 mg/dL (0.15-1.2); Total Protein 6.3 g/dL (6.6-8.7)
[2021-11-16 05:45] LABS: Ammonia 91 umol/L (16-60)
[2021-11-16 06:00] VITALS: PULSE 98
[2021-11-16 07:25] VITALS: PULSE 90; RESP 16; O2SAT 97
[2021-11-16 08:00] VITALS: BP 115/74; PULSE 86; RESP 18; TEMP 36.6; O2SAT 98
--- NOTE | 2021-11-16 08:25 | NUR.SHIFT ---
Mr. Rodriguez reported a constant dull/sharp pain of 7-8 in abdomen and legs. He stated that he normally takes 1-2 tramadol in the morning PRN. He reports being hungry & would like his clear liquid diet to be reevaluated.
[2021-11-16] MEDS: pantoprazole DR 40 mg Tablet PO (09:35)
[2021-11-16] MEDS: heparin 5,000 unit/mL INJ 1 mL 5000 UNIT SUBCUT ×2 (09:36→20:49)
[2021-11-16] MEDS: gabapentin 100 mg Capsule PO ×3 (09:36→20:49)
[2021-11-16] MEDS: levothyroxine 50 mcg Tablet PO (09:36)
--- NOTE | 2021-11-16 10:20 | PC.CHAP ---
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 automatic tire tester visit [] Patient/Family/Request visit [] Outpatient visit [] Follow-up visit [] Physician referral [] Code/Alert [x] Routine visit [] Staff referral [] Actively dying [] Patient sleeping [] Family support [] [] Out of room [] Palliative care [] [] Receiving care in room [] Pre-surgical visit [] Trauma [] Long length of stay [] ICU visit [] Other: Relational/Emotional Strength [] Patient feels connected with others/family/visitors/staff [] Distress [] Loneliness/isolation [] Abandonment Spirituality of Patient [] Person of Jana [] Attends [employer] of their Jana [] Believes in Prayer [] Reads Bible or Bahai materials [] There are Spiritual issues to be addressed Director Of Vendor Management Interventions [] Prayer [] Active listening [] Non-anxious presence [] Spiritual/emotional support [] Crisis/trauma care [] Spiritual counseling [] Bereavement support [] Provided bereavement packet [] Provided Bible/devotional materials [] Provided toy/stuffed animal, coloring book to patient or family member [] Provided Communion [] Anointing/[place] [] Salvation [] Completed spiritual assessment [] Other: Impact on Illness or Injury [] Angry [] Fearful [] Anxious [] Often cries [] Exhaustion [] Unable to work [] Unable to attend restoration [] Unable to walk/stand [] Unable to read [] Unable to drive [] Unable to eat/drink [] Unable to sleep [] Unable to be with family [] Patient intubated [] Other: Summary Time spent with patient
--- NOTE | 2021-11-16 11:41 | P.PN_ITS ---
Subjective Subjective: He is feeling better today. He denies any additional twitching/repetitive movements today. States it was quite bothersome yesterday. Is not aware of having prior history of seizures. He does feel weak today, somewhat tremulous, states his hands have been shaking recently. Feels too weak and concerned about going home. Vitals/I&O/Wt Last Vital Signs Temp 97.9 F 11/16/21 08:00 Pulse 86 11/16/21 08:00 Resp 18 11/16/21 08:00 BP 115/74 11/16/21 08:00 Pulse Ox 98 11/16/21 08:00 11/15/21 11/16/21 11/16/21 22:59 06:59 14:59 Intake Total 350 / 460 110 / 570 1450 / 1450 Output Total 900 / 900 625 / 625 Balance 350 / 460 -790 / -330 825 / 825 Weight last 48 hrs Weight 135.227 kg Weight 131.117 kg Weight 136.078 kg Physical Exam Const: COMMON NORMALS: no acute distress and patient oriented x3 NUTRITIONAL APPEARANCE: obese ORIENTATION/CONSCIOUSNESS: Yes awake OTHER: weak HENMT: COMMON NORMALS: oropharynx normal Neck/C-Spine: COMMON NORMALS: no JVD Resp: COMMON NORMALS: normal respiratory effort and clear to auscultation bilaterally AUSCULTATION: clear to auscultation bilaterally Cardio: COMMON NORMALS: no JVD, regular rhythm, S1 normal heart sound present, S2 normal heart sound present and No murmurs present (Cardio) RHYTHM: regular rhythm HEART SOUNDS: S1 normal heart sound present and S2 normal heart sound present GI: COMMON NORMALS: Normal to inspection, nondistended, normoactive bowel sounds present, Soft to palpation and non-tender PALPATION: Yes Soft to palpation Extremity: COMMON NORMALS: no joint enlargement and no pedal edema GENERAL: Yes edema (2+, but mother states significantly less) Neuro: COMMON NORMALS: patient oriented x3 and moves all extremities Skin: COMMON NORMALS: no rashes or lesions noted GENERAL SKIN EXAM: no rashes or lesions noted OTHER: Maceration of skin anterior lowery, no weeping, wrinkling with decreased edema Data : 11/16/21 05:15 11/16/21 05:15 A&P Assessment and plan (1) Stereotyped movements: These have so far resolved with initiation of Keppra. He is agreeable with continuation of anticonvulsant at this time, referral for outpatient EEG and MRI. We have resumed his gabapentin. He is also asking to resume tramadol as he states it is only medication alongside gabapentin that works for his neuropathy. We will monitor with resumption of the medication. Possible partial complex seizure on presentation. Treat UTI. Resumed and reinforced lactulose given hyperammonemia. He and mother denies any recent medication changes. Status: Acute (2) UTI (urinary tract infection): Continue ceftriaxone. Follow-up urine culture. Status: Acute (3) SAMI (acute kidney injury): Says he is still taking meloxicam. Hold and discontinue. Resume spironolactone History of CKD, hepatorenal syndrome. Status: Acute (4) Acute encephalopathy: No overall improving. He is awake and alert today, feels weak, tremulous. Improving. Acute metabolic encephalopathy secondary to hepatic encephalopathy with elevated ammonia, as well as urinary tract infection. Continue lactulose, rifaximin. Follow-up ammonia level. Treat UTI. He does not feel safe returning home today. We will try to mobilize, transition him to oral medications, resume home medications. Monitor and discussed with him plan tentatively for discharge tomorrow morning. Status: Acute Plan Atrial fibrillation: Mild RVR, heart rates 102. Continue diltiazem. Is not on anticoagulation. Mild hyponatremia Recurrent ascites and anasarca, recently has lost quite a bit of water edema per his mother Anemia Liver cirrhosis: Reported to be followed with [facility] with consideration of liver transplantation Other chronic conditions noted Attestations Medical Necessity Statement*: Continue admission for assessment of management of acute encephalopathy, possible seizure, transition to oral antibiotics, mobilization and post discharge planning. 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
[2021-11-16 11:44] VITALS: BP 125/76; PULSE 102; RESP 18; TEMP 36.3; O2SAT 96
[2021-11-16] MEDS: TRAMadol 50 mg Tablet 100 MG PO (11:58)
[2021-11-16] MEDS: fluticasone nasal spray 16gm Btl 1 SPRAY INTRANASAL (15:03)
[2021-11-16] MEDS: cefTRIAXone 1,000 MG in sodium chloride 0.9% (plus) 50 ML 100 MG IV (18:14)
[2021-11-16] MEDS: levETIRAcetam 500 mg Tablet 1000 MG PO (18:15)
[2021-11-16 19:52] VITALS: BP 124/70; PULSE 85; RESP 18; TEMP 36.7; O2SAT 98
--- NOTE | 2021-11-16 21:24 | PC.NURSE ---
Voalte message sent to Dr. Lezama regarding patient request for pain medication c/o generalized pain at 5. No new orders at this time.
[2021-11-16] MEDS: acetaminophen 325 mg Tablet 650 MG PO (22:02)
--- NOTE | 2021-11-16 23:19 | PC.NURSE ---
Voalte message sent to Dr. Lezama regarding patient c/o back itching-requesting anti-itch cream. No new orders at this time.
[2021-11-16] MEDS: diphenhydrAMINE 25 mg Capsule PO (23:52)
[2021-11-17] VITALS (7 sets, daily range): BP systolic 107–126; BP diastolic 56–78; PULSE 80–101; RESP 15–19; TEMP 36.8–37.4; O2SAT 95–97
[2021-11-17] MEDS: lactulose oral liq 20 gm/30 mL UDC 10 GM PO (04:04)
[2021-11-17 05:57] LABS: Basophils # 0.1 10^3/uL (0.0-0.1); Basophils % 1.2 %; Eosinophils # 0.4 10^3/uL (0.0-0.8); Eosinophils % 8.7 %; Hematocrit 29.2 % (42.0-52.0); Hemoglobin 9.6 g/dL (11.7-16.6); Lymphocytes # 0.9 10^3/uL (0.8-4.8); Lymphocytes % 18.8 %; Mean Corpuscular HGB Conc 32.9 g/dL (30.0-36.0); Mean Corpuscular Hemoglobin 32.4 pg (28.0-34.0); Mean Corpuscular Volume 98.6 fl (80-94); Mean Platelet Volume 9.8 fL (7.4-10.4); Monocytes # 0.8 10^3/uL (0.2-0.9); Monocytes % 16.1 %; Neutrophils # 2.65 10^3/uL (1.8-7.7); Neutrophils % 54.8 %; Nucleated Red Blood Cells % 0 %; Platelet Count 149 10^3/cmm (130-400); Red Blood Count 2.96 10^6/uL (4.1-5.3); White Blood Count 4.8 10^3/uL (4.0-10.0)
[2021-11-17 06:08] LABS: Ammonia 69 umol/L (16-60)
[2021-11-17] MEDS: dilTIAZem ER (24HR) 120 mg Capsule PO (06:10)
[2021-11-17 06:18] LABS: Alanine Aminotransferase 9 U/L (0-41); Albumin Level 3.6 g/dL (3.5-5.2); Alkaline Phosphatase 84 IU/L (40-130); Blood Urea Nitrogen 24 mg/dL (6-20); Calcium 9.5 mg/dL (8.5-10.5); Carbon Dioxide 23 mmol/L (22-29); Chloride 100 mmol/L (98-107); Creatinine Clr Calc Pharmacy 71.8999; Globulin 3.2 g/dL (1.3-4.6); Glomerular Filtration Rate 44.8 mL/min (90-130); Glucose 93 mg/dL (65-115); Osmolality Calculated 282 mOsm/kg (285-295); Sodium 134 mmol/L (136-145); Total Protein 6.8 g/dL (6.6-8.7)
[2021-11-17 06:48] LABS: Anion Gap 15.8 (5-19); Potassium 4.8 mmol/L (3.5-5.1)
[2021-11-17 06:49] LABS: Aspartate Amino Transferase 24 U/L (0-40)
[2021-11-17] MEDS: levothyroxine 50 mcg Tablet PO (09:12)
[2021-11-17] MEDS: pantoprazole DR 40 mg Tablet PO (09:12)
[2021-11-17] MEDS: heparin 5,000 unit/mL INJ 1 mL 5000 UNIT SUBCUT (09:12)
[2021-11-17] MEDS: gabapentin 100 mg Capsule PO (09:12)
[2021-11-17] MEDS: spironolactone 25 mg Tablet 50 MG PO (09:12)
[2021-11-17] MEDS: levETIRAcetam 500 mg Tablet 1000 MG PO (09:14)
[2021-11-17] MEDS: TRAMadol 50 mg Tablet 100 MG PO (09:14)
--- NOTE | 2021-11-17 12:32 | PC.NURSE ---
Pulled patients merlos at 1215. IV discontinued. Medications were delivered to patients bedside. Discharge teaching and education given to patient, all questions were answered at this time. Patient refused all doses of lactulose this shift, education given. Patients family member is picking patient up.
--- NOTE | 2021-11-17 21:12 | PM.DCS ---
Discharge Providers Date of Admission: 11/15/21 18:14 Date of Discharge: November 17, 2021 Attending Provider at Admission: Max Goodson Attending Provider at Discharge: Max Goodson Primary Care Provider: Yosvany Segovia MD Diagnoses at Discharge Discharge Diagnosis (1) Stereotyped movements: Status: Acute (2) UTI (urinary tract infection): Status: Acute (3) SAMI (acute kidney injury): Status: Acute (4) Acute encephalopathy: Status: Acute Reason for Visit Reason for Visit: AMS Brief History: 56-year-old gentleman with history of liver cirrhosis with remote history of alcohol use disorder, hepatorenal syndrome, decompensated cirrhosis with recurrent ascites, transiently peritoneal drain, however, with recurrent peritonitis drain has since been removed, currently his mother tells me he is following with [facility] hepatology for consideration of liver transplantation, presents to the ER generally not feeling well, with mild confusion, with noted persistent twitching and stereotyped movements of left arm and shoulder with concern for possible partial seizure he is started on Keppra infusion.? The twitching/rhythmic/start out movement of the left shoulder reported resolved.? He is moving his left arm, left leg intermittently flexing both, but then repositions and extends them without rhythmic movements, although seems to be doing this on the left side alone.? He denies pain, states he is feeling cold. Noted hyperammonemia, ammonia 82.? Mother reports he lives alone, but she checks on him, and he has not had a bowel movement yesterday. CT of the head without acute findings.? UA with positive nitrate, 15-25 RBC, 50-25 WBC, 3+ bacteria, 3+ yeast.? He is started on ceftriaxone. His mother states that otherwise yesterday he was doing well. Hospital Course Hospital Course He had resolution of the start of movements. He remained lethargic through the evening after insertion of Ativan, and possibly also with additional treatments given confusion presentation, with ammonia level. He was more alert on 11/16, although still weak, tremulous. Likely also acute metabolic encephalopathy secondary to urinary tract infection but he is currently growing gram-negative rods in urine. Treated with ceftriaxone and hospitalization. Was transitioned to oral Keppra. Had no recurrence of seizure like activity. Today awake and alert, doing well. Ammonia level decreased. First several times with him and his mother to make sure he is taking lactulose and targeting at least 2-3 soft bowel movements per day to prevent hepatic encephalopathy. Given his symptoms resolved he states he is not sure that he actually had a seizure last week was more due to metabolic encephalopathy, declined to continue Keppra scheduled, recommend you to have it available as needed in case your symptoms restart, discussed with him in case of complete procedure prompt treatment is important and avoid recalcitrant convulsions. He verbalized understanding and agreement. He is referred for additional assessment with MRI brain, EEG, and follow-up with neurology. He is discharged to complete antibiotic course with cefdinir. Identification and sensitivities of gram-negative rods are pending corrected for culture. He is encouraged to continue follow-up with primary hospital with regards to consideration of liver transplantation. He is instructed to discontinue meloxicam due to risks to his liver, as well as kidneys with history of hepatorenal syndrome with recent SAMI. Physical Exam Narrative: Mother at bedside Const: COMMON NORMALS: no acute distress, patient oriented x3 and alert NUTRITIONAL APPEARANCE: obese ORIENTATION/CONSCIOUSNESS: Yes awake HENMT: COMMON NORMALS: oropharynx normal Neck/C-Spine: COMMON NORMALS: no JVD Resp: COMMON NORMALS: normal respiratory effort and clear to auscultation bilaterally EFFORT & INSPECTION: Yes able to speak in complete sentences AUSCULTATION: clear to auscultation bilaterally Cardio: COMMON NORMALS: no JVD, regular rhythm, S1 normal heart sound present, S2 normal heart sound present and No murmurs present (Cardio) RHYTHM: regular rhythm HEART SOUNDS: S1 normal heart sound present and S2 normal heart sound present GI: COMMON NORMALS: Normal to inspection, nondistended, normoactive bowel sounds present, Soft to palpation and non-tender PALPATION: Yes Soft to palpation Extremity: COMMON NORMALS: no joint enlargement and no pedal edema GENERAL: Yes edema (2+, but mother states significantly less) Neuro: COMMON NORMALS: patient oriented x3 and moves all extremities SENSORIUM/ORIENTATION: Yes alert Skin: COMMON NORMALS: no rashes or lesions noted GENERAL SKIN EXAM: no rashes or lesions noted OTHER: Maceration of skin anterior lowery, no weeping, wrinkling with decreased edema Discharge Data Studies Completed and Pending Completed Studies During Hospitalization Category Date Time Status CT head wo con* [id number] Stat Cat Scan 11/15/21 14:15 Completed XR chest 1V portable [id number] Stat Exams 11/15/21 14:15 Completed Pending at discharge Category Date Time Status Urine Culture Stat Lab 11/15/21 14:49 Results Radiology Impressions Chest X-Ray 11/15/21 14:15 Impression: 1. Left pleural reaction with almost total clearing of left lower lobe opacity. 2. Cardiomegaly. Head CT 11/15/21 14:15 IMPRESSION: 1. No evidence of intracranial hemorrhage or mass effect. 2. Mild small vessel changes with mild parenchymal volume loss. 3. No acute intracranial findings. Laboratory Results WBC 4.8 10^3/uL (4.0-10.0) 11/17/21 05:20 RBC 2.96 10^6/uL (4.1-5.3) L 11/17/21 05:20 Hgb 9.6 g/dL (11.7-16.6) L 11/17/21 05:20 Hct 29.2 % (42.0-52.0) L 11/17/21 05:20 MCV 98.6 fl (80-94) H 11/17/21 05:20 MCH 32.4 pg (28.0-34.0) 11/17/21 05:20 MCHC 32.9 g/dL (30.0-36.0) D 11/17/21 05:20 RDW 15.0 % (12.1-15.1) 11/17/21 05:20 Plt Count 149 10^3/cmm (130-400) 11/17/21 05:20 MPV 9.8 fL (7.4-10.4) 11/17/21 05:20 Neut % (Auto) 54.8 % 11/17/21 05:20 Lymph % (Auto) 18.8 % 11/17/21 05:20 Sumner % (Auto) 16.1 % 11/17/21 05:20 Eos % (Auto) 8.7 % 11/17/21 05:20 Baso % (Auto) 1.2 % 11/17/21 05:20 Neut # (Auto) 2.65 10^3/uL (1.8-7.7) 11/17/21 05:20 Lymph # (Auto) 0.9 10^3/uL (0.8-4.8) 11/17/21 05:20 Sumner # (Auto) 0.8 10^3/uL (0.2-0.9) 11/17/21 05:20 Eos # (Auto) 0.4 10^3/uL (0.0-0.8) 11/17/21 05:20 Baso # (Auto) 0.1 10^3/uL (0.0-0.1) 11/17/21 05:20 Nucleated RBC % (auto) 0 % 11/17/21 05:20 Nucleated RBCs # 0.0 /100WBC 11/17/21 05:20 Specimen Type Arterial 11/15/21 14:44 Sample Site Radial, left 11/15/21 14:44 ABG pH 7.43 (7.35-7.45) 11/15/21 14:44 ABG pCO2 40.6 mmHg (35-45) 11/15/21 14:44 ABG pO2 84.0 mmHg (80.0-100.0) 11/15/21 14:44 ABG HCO3 27.0 mmol/L (22-26) H 11/15/21 14:44 ABG O2 Saturation 96.8 11/15/21 14:44 ABG Base Excess 2.5 mmol/L (-2.0-2.0) H 11/15/21 14:44 Marcelo Test Pos 11/15/21 14:44 A-a O2 Gradient 2.0 mmHg (5-10) L 11/15/21 14:44 Hematocrit 32.2 % (42-52) L 11/15/21 14:44 Hgb O2 Saturation 95.0 % (95-100) 11/15/21 14:44 Carboxyhemoglobin 1.6 %THgb (0.4-20.1) 11/15/21 14:44 Methemoglobin 0.3 % (0.4-1.5) L 11/15/21 14:44 Total Hemoglobin 10.5 g/dL (14-18) L 11/15/21 14:44 Sodium 138.0 mmol/L (131-143) 11/15/21 14:44 Potassium 4.5 mmol/L (3.5-5.0) 11/15/21 14:44 Glucose 97.0 mg/dL (70-115) 11/15/21 14:44 Ionized Calcium 1.2 mmol/L (1.1-1.4) 11/15/21 14:44 O2 Delivery Device Room air 11/15/21 14:44 FiO2 21.0 % 11/15/21 14:44 Aircraft Air Conditioning [employer] ID Melva 11/15/21 14:44 Sodium 134 mmol/L (136-145) L 11/17/21 05:20 Potassium 4.8 mmol/L (3.5-5.1) 11/17/21 05:20 Chloride 100 mmol/L (98-107) 11/17/21 05:20 Carbon Dioxide 23 mmol/L (22-29) 11/17/21 05:20 Anion Gap 15.8 (5-19) 11/17/21 05:20 BUN 24 mg/dL (6-20) H 11/17/21 05:20 Creatinine 1.6 mg/dL (0.7-1.2) H 11/17/21 05:20 GFR Calculation 44.8 mL/min (90-130) L 11/17/21 05:20 Glucose 93 mg/dL (65-115) 11/17/21 05:20 Calculated Osmolality 282 mOsm/kg (285-295) L 11/17/21 05:20 Lactic Acid 1.1 mmol/L (0.5-2.2) 11/15/21 14:43 Calcium 9.5 mg/dL (8.5-10.5) 11/17/21 05:20 Magnesium 1.9 mg/dL (1.7-2.3) 11/15/21 13:55 Total Bilirubin 1.0 mg/dL (0.15-1.2) 11/17/21 05:20 AST 24 U/L (0-40) 11/17/21 05:20 ALT 9 U/L (0-41) 11/17/21 05:20 Alkaline Phosphatase 84 IU/L (40-130) 11/17/21 05:20 Ammonia 69 umol/L (16-60) H 11/17/21 05:20 Creatine Kinase 39 U/L (39-308) 11/15/21 13:55 Troponin T Baseline 70 ng/L (0-15) H 11/15/21 13:55 Troponin T 120 Minute 64.01 ng/L (0-15) H 11/15/21 15:57 Delta Troponin T -5.99 ABS# (0-10) L 11/15/21 15:57 Troponin T Hi Sens 6Hr 71.18 ng/L (0-15) H 11/15/21 20:20 Troponin T Hi Sens 6Hr Delta 1.18 ng/L (0-12) 11/15/21 20:20 Total Protein 6.8 g/dL (6.6-8.7) 11/17/21 05:20 Albumin 3.6 g/dL (3.5-5.2) 11/17/21 05:20 Globulin 3.2 g/dL (1.3-4.6) 11/17/21 05:20 Urine Color Yellow (Yellow) 11/15/21 14:49 Urine Appearance Cloudy (CLEAR) 11/15/21 14:49 Urine pH 8 (5-7) H 11/15/21 14:49 Ur Specific [place] 1.015 (1.005-1.030) 11/15/21 14:49 Urine Protein Neg (Negative) 11/15/21 14:49 Urine Glucose (UA) Norm (Normal) 11/15/21 14:49 Urine Ketones Negative (Negative) 11/15/21 14:49 Urine Blood 2+ (Negative) H 11/15/21 14:49 Urine Nitrate Positive (Negative) H 11/15/21 14:49 Urine Bilirubin Neg (Negative) 11/15/21 14:49 Prot Sulfosalicylic Acd Negative (Negative) 11/15/21 14:49 Urine Urobilinogen Norm mg/dL (Negative) 11/15/21 14:49 Ur Leukocyte Esterase 1+ (Negative) H 11/15/21 14:49 Urine RBC 15-25 /hpf (0-2) H 11/15/21 14:49 Urine WBC 15-25 /hpf (0-5) H 11/15/21 14:49 Ur Squamous Epith Cells 0-4 /hpf (0-5) H 11/15/21 14:49 Amorphous Sediment Not Reportable 11/15/21 14:49 Urine Bacteria 3+ /hpf (NONE) H 11/15/21 14:49 Urine Yeast 3+ /hpf H 11/15/21 14:49 Serum Ketones Negative (Negative) 11/15/21 14:43 Vitals Last Vital Signs Temp 98.2 F 11/17/21 13:23 Pulse 87 11/17/21 13:23 Resp 16 11/17/21 13:23 BP 126/78 11/17/21 13:23 Pulse Ox 96 11/17/21 13:23 Discharge Plan Discharge Patient Disposition: Home Condition: Stable Prescriptions: New levetiracetam 500 mg Tablet 1,000 mg PO BID PRN (Reason: Seizure Activity) Qty: 60 0RF cefdinir 300 mg capsule 300 mg PO BID 5 Days Qty: 10 0RF Continued vitamin B complex [B Complex-Vitamin B12] Tablet 1 tab PO DAILY@16 0RF (DME) Cam Walker See Rx Instructions .Route .MEDSUPPLY Qty: 1 0RF Rx Instructions: As directed diltiazem HCl [Cartia XT] 120 mg capsule,extended release 24hr 120 mg PO QAM 0RF levothyroxine 50 mcg tablet 1 tab PO DAILY 0RF rifaximin 550 mg tablet 1 tab PO DAILY 0RF (DME) [place] See Rx Instructions .Route .MEDSUPPLY Qty: 1 0RF Rx Instructions: As directed (DME) [place] to the left and an even-up applied to the right foot See Rx Instructions .Route .MEDSUPPLY Qty: 1 0RF Rx Instructions: As directed by Laureen Spiriva Respimat 2.5 mcg/actuation mist 2 puff inhalation DAILY Qty: 4 0RF tramadol 50 mg Tablet 100 mg PO DAILY PRN (Reason: Pain) 0RF folic acid 1 mg tablet 1 mg PO DAILY@10 0RF fluticasone propionate 50 mcg/actuation spray,suspension 1 - 2 spray intranasal DAILY PRN (Reason: Allergy Symptoms) 0RF albuterol sulfate 90 mcg/actuation HFA aerosol inhaler 2 inh INHALATION Q4H PRN (Reason: shortness of breath/wheezing) 0RF PreserVision AREDS [id number] Capsule 1 cap PO DAILY 0RF ferrous sulfate 27 mg iron Tablet 27 mg PO DAILY 0RF cetirizine [Zyrtec] 10 mg Tablet 10 mg PO DAILY PRN (Reason: Allergy Symptoms) 0RF alfuzosin 10 mg tablet extended release 24 hr 10 mg PO DAILY@13 0RF Rx Instructions: administer after the same meal each day midodrine 5 mg tablet 10 mg PO TID 0RF pantoprazole 40 mg tablet,delayed release (DR/EC) 40 mg PO DAILY 0RF potassium chloride 20 mEq Tablet Extended Release 20 meq PO BID 0RF lactulose 20 gram/30 mL solution 15 ml PO Q6H PRN (Reason: CONSTIPATION) Qty: 0 0RF gabapentin 100 mg Capsule 100 mg PO TID 0RF bumetanide 1 mg tablet 1 mg PO BID Qty: 120 3RF lactulose 10 gram/15 mL solution 10 g PO DAILY PRN (Reason: laxative effect) Qty: 946 4RF spironolactone 100 mg tablet 100 mg PO DAILY Qty: 90 3RF Changed spironolactone 50 mg Tablet 50 mg PO DAILY Qty: 0 4RF Discontinued meloxicam 15 mg Tablet 15 mg PO DAILY 0RF Discharge Orders: Discharge Order (Routine); Ordered 11/17/21 Ordered By: Max Goodson Other Ambulatory Orders: EEG electroencephalogram (Routine) Timeframe: 1 Week Facility: [facility] - Location: Neurology Ordered By: Max Goodson MR head wo con* [id number] (Routine) Timeframe: 1 Week Facility: [facility] - Location: Radiology [facility] Ordered By: Max Goodson Referrals: Tabatha Muniz MD [Physician] - 1 week (possible seizure) Yosvany Segovia MD [Primary Care Provider] - 11/21/21 10:30 am Patient Instructions: Levetiracetam (By injection), Urinary Tract Infection in Men (ED), Urinary Tract Infection in Men (GEN), New-Onset Seizure in Adults (GEN), Opioid Safety Activity Restrictions/Additional Instructions: In case of noted seizure-like activity in upper or lower extremity please take Keppra, seek medical attention. Please make sure to take lactulose, target no less than 2-3 bowel movements a day due to risk of accumulation of ammonia, hepatic encephalopathy, and severe complications including coma, . Continue follow-up with [facility] with regards to liver transplantation consideration. Please do not take meloxicam due to risk to your kidneys and liver. Complete antibiotic course for urinary tract infection. As results of the urine culture come back in the next several days you may be contacted in case changes needed to the antibiotic regimen. Discharge Attestations Time Spent in Discharge Care*: greater than 30 min Status at Discharge: Cognitive status at discharge: cognitively intact, Behavioral status at discharge: cooperative, Quality Metrics Clinical Quality Measures [ No reported AMI, CVA or VTE this stay] Coding Level of Care Code Acute Chg FW DC note Diagnoses Stereotyped movements F98.4 UTI (urinary tract infection) N39.0 SAMI (acute kidney injury) N17.9 Acute encephalopathy G93.40
== END 2021-11-17 13:24 | disposition home or self-care (01) | DRG 441 ==
LOC: ER 15:20 → MEDSURG 19:41
PROVIDERS: Admitting Provider Internal Medicine; Emergency Provider Family Medicine; PCP Family Medicine; Visit Provider Internal Medicine
DX: K72.00 Acute and subacute hepatic failure without coma (principal); G92.8 Other toxic encephalopathy; K76.7 Hepatorenal syndrome; A52.16 Charcot's arthropathy (tabetic); E87.1 Hypo-osmolality and hyponatremia; G40.209 Localization-related (focal) (partial) symptomatic epilepsy and epileptic syndromes with complex partial seizures, not intractable, without status epilepticus; N39.0 Urinary tract infection, site not specified; N17.9 Acute kidney failure, unspecified; K72.10 Chronic hepatic failure without coma; K70.31 Alcoholic cirrhosis of liver with ascites; I48.91 Unspecified atrial fibrillation; N18.9 Chronic kidney disease, unspecified; I50.9 Heart failure, unspecified; N40.1 Benign prostatic hyperplasia with lower urinary tract symptoms; Z87.01 Personal history of pneumonia (recurrent); F17.210 Nicotine dependence, cigarettes, uncomplicated; D64.9 Anemia, unspecified; Z79.891 Long term (current) use of opiate analgesic
CPT/HCPCS: 36415; 36600; 70450; 71045; 80051; 80053; 81001; 82009; 82140; 82330; 82550; 82805; 83605; 83735; 84484; 85025; 87077; 87086; 87186; 93005; 96365; 96367; 96372; 96375; 99285; J0696; J1644; J1953; J2060

== ENCOUNTER → 2021-11-29 16:19 | Outpatient (BNVA) | payer OTHER, MEDICAID, SELFPAY | PROVIDERS: PCP Family Medicine; Visit Provider Nurse Practitioner Family | DX: N39.0 Urinary tract infection, site not specified (principal); R30.0 Dysuria; N40.1 Benign prostatic hyperplasia with lower urinary tract symptoms | CPT/HCPCS: 81003; 87077; 87086; 87184 ==

== ENCOUNTER 2021-12-23 18:51 | Inpatient (IN) | payer OTHER, SELFPAY ==
--- NOTE | 2021-12-23 19:01 | XRR_ITS ---
PROCEDURE INFORMATION: Exam: XR Chest Exam date and time: 12/23/2021 7:32 PM Age: 56 years old Clinical indication: Other: AMS TECHNIQUE: Imaging protocol: XR of the chest. Views: 1 view. COMPARISON: CR XR chest 1V portable [id number] 11/15/2021 2:27 PM FINDINGS: Lungs: Unchanged linear scarring or atelectasis in the left upper lobe Pleural spaces: Unchanged small left pleural effusion. Heart/Mediastinum: Unremarkable. No cardiomegaly. Bones/joints: Unremarkable. XR/XR chest 1V portable [id number] IMPRESSION: No change, small left effusion
--- NOTE | 2021-12-23 19:01 | CTR_ITS ---
PROCEDURE INFORMATION: Exam: CT Head Without Contrast Exam date and time: 12/23/2021 8:01 PM Age: 56 years old Clinical indication: Altered mental status/memory loss; Confusion or disorientation; Additional info: AMS TECHNIQUE: Imaging protocol: Computed tomography of the head without contrast. Radiation optimization: All CT scans at this facility use at least one of these dose optimization techniques: automated exposure control; mA and/or kV adjustment per patient size (includes targeted exams where dose is matched to clinical indication); or iterative reconstruction. COMPARISON: CT head wo con* [id number] 11/15/2021 2:35 PM RADIATION DOSE METRICS: Total DLP (mGy-cm): 949.56 FINDINGS: Brain: No CT evidence for acute ischemia, mass or hemorrhage. No extra-axial fluid collection, midline shift or hydrocephalus. Cerebral ventricles: No ventriculomegaly. Paranasal sinuses: Visualized sinuses are unremarkable. No fluid levels. Mastoid air cells: Visualized mastoid air cells are well aerated. Soft tissues: Unremarkable. Bones/joints: Chronic left orbital floor fracture. CT/CT head wo con* [id number] IMPRESSION: No significant findings
--- NOTE | 2021-12-23 19:02 | ECG_ITS ---
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 Measurements Intervals [place] Rate: 76 P: OR: QRS: 118 QRSD: 99 T: 46 QT: 423 QTc: 477 Interpretive Statements ATRIAL FIBRILLATION INCOMPLETE RIGHT BUNDLE BRANCH BLOCK [90+ ms QRS DURATION, TERMINAL R IN V1/V2, 40+ ms S IN I/aVL/V4/V5/V6] POSSIBLE RIGHT VENTRICULAR HYPERTROPHY [SOME/ALL OF: PROMINENT R IN V1, LATE TRANSITION, RAD, LUCINDA, SSS] ANTEROSEPTAL MYOCARDIAL INFARCTION , OF INDETERMINATE AGE [40+ ms Q WAVE IN V1-V4] Compared to ECG 11/15/2021 16:38:57 No significant changes Electronically Signed On 12-23-2021 22:02:06 CDT by Odin Eddy M.D. [email or web address]
[2021-12-23 19:15] VITALS: BP 129/85; PULSE 81; RESP 20; O2SAT 99; BMI 35.9
--- NOTE | 2021-12-23 19:16 | W.ED.GENADLT ---
HPI - General Adult General: Chief complaint: Altered Mental Status Stated complaint: AMS Time Seen by Provider: 12/23/21 18:56 Source: EMS Mode of arrival: EMS Limitations: no limitations History of Present Illness: 56-year-old male who has a history of cirrhosis states that throughout the day today has been having some periods of confusion. He states at times he was having a hard time using his phone when I states he feels improved he is awake and alert he just states he feels little lethargic he states that he does take lactulose for his ammonia levels he also has had a history of hyponatremia and states he felt like this in the past with hyponatremia denies any headache fever or any other illness. Associated symptoms: Reports confusion; Deny chest pain, dyspnea, nausea, rash or vomiting Review of Systems Const: Denies: fever(s), chills, body aches or change in appetite Eyes: Denies: blurry vision or eye discomfort ENMT: Denies: throat pain or dental pain Card: Denies: chest pain Resp: Denies: dyspnea GI: Denies: abdominal pain, nausea, vomiting or diarrhea : Denies: dysuria Musc: Denies: neck pain or back pain Skin/Breast: Denies: rash Neuro: Reports: confusion Psych: Denies: depression Avinash/Lymph: Denies: easy bruising All/Imm: Denies: urticaria PFS ED PFSH: Medical History A-fib Acute dyspnea Acute encephalopathy Acute hypokalemia Acute hyponatremia Acute kidney injury superimposed on chronic kidney disease SAMI (acute kidney injury) Alcoholic cirrhosis of liver with ascites Anasarca Anasarca Anemia Ascites Ascites due to alcoholic cirrhosis Ataxia Atrial fibrillation and flutter Echocardiogram done in 2019 shows an EF of 40 to 45% with hypokinetic septum, anteroseptum and inferior wall, biatrial enlargement Atrial fibrillation with RVR BPH loc w urin obs/LUTS C. difficile diarrhea Charcot's arthropathy Charcot's joint of left foot Chest pain Pleuritic chest pain: Resolved; CHF (congestive heart failure) CHF (congestive heart failure), NYHA class III Chronic hyponatremia Chronic hyponatremia Decompensation of cirrhosis of liver Dyspnea on exertion Encephalopathy, hepatic End-stage liver disease Erectile dysfunction ETOH abuse Ex-smoker Fracture of fourth metatarsal bone of left foot Fracture of second metatarsal bone of left foot Fracture of third metatarsal bone of left foot Hepatorenal syndrome History of abdominal paracentesis Hx of esophageal varices Hyperkalemia Hyponatremia Hyponatremia Hyponatremia with excess extracellular fluid volume Laceration of left foot Neuropathy Non-pressure chronic ulcer of other part of left foot limited to breakdown of skin Occult blood in stools Peritoneal dialysis catheter in situ Peyronie disease Pleural effusion Pleural effusion associated with hepatic disorder Pneumonia PVD (peripheral vascular disease) Stereotyped movements Upper gastrointestinal hemorrhage due to gastritis Surgical History H/O colonoscopy 10-12 yrs H/O esophagogastroduodenoscopy History of tonsillectomy Hx of umbilical hernia repair Hx of vasectomy Status post surgery (07/05/20) peritoneal catheter for ascites Family History Grandfather CAD (coronary artery disease) Grandmother CAD (coronary artery disease) Cancer Father Cancer Denies family history of Anesthesia complication Bleeding disorder Social History Smoking and tobacco status: current some day smoker Quit status (tobacco): has quit using tobacco Year quit tobacco: 2014 less than a [id number] Second hand smoke exposure: No Smoking risk assessment/counseling performed?: Yes Alcohol intake: current Alcohol intake frequency: 3 or more drinks per day Alcohol type: beer Adopted: No Caregiver/support person: Yes Lives independently: Yes Household members: children Marital status: Current occupational status: unemployed Pets and animals: Yes History of recent travel: No Current gender identity: Male Physical Exam Const: COMMON NORMALS: no acute distress, patient oriented x3 and healthy appearing HENMT: COMMON NORMALS: normocephalic and atraumatic HEAD & SCALP: normocephalic and atraumatic Eye: COMMON NORMALS: Equal, round and reactive pupils present and EOMs intact bilaterally PUPIL: Yes Equal, round and reactive pupils present Neck/C-Spine: COMMON NORMALS: full ROM and supple Chest: COMMONS NORMALS: normal inspection of the chest and normal palpation of entire chest wall Resp: COMMON NORMALS: normal respiratory effort, No retractions, No use of accessory muscles and clear to auscultation bilaterally AUSCULTATION: clear to auscultation bilaterally Cardio: COMMON NORMALS: regular rate, regular rhythm and No murmurs present (Cardio) RATE: regular rate RHYTHM: regular rhythm GI: COMMON NORMALS: Normal to inspection, nondistended, normoactive bowel sounds present, Soft to palpation, non-tender and no masses PALPATION: Yes Soft to palpation Extremity: COMMON NORMALS: normal to inspection and full ROM Neuro: COMMON NORMALS: patient oriented x3, moves all extremities and no focal motor deficits Psych: COMMON NORMALS: mental status grossly normal, Normal thought process present and cooperative THOUGHT PROCESS: Normal thought process present Skin: COMMON NORMALS: no rashes or lesions noted and no wounds GENERAL SKIN EXAM: no rashes or lesions noted Course Vital Signs: Vital signs: Vital Signs Pulse Rate 81 12/23/21 19:15 Respiratory Rate 20 H 12/23/21 19:15 Blood Pressure 129/85 12/23/21 19:15 Pulse Oximetry 99 12/23/21 19:15 [facility] - General Adult Medical Decision Making Patient presents with confusion with increased ammonia consistent with hepatic encephalopathy will admit and give lactulose. He is noncompliant with his lactulose at home. Lab Data : 12/23/21 19:20 12/23/21 19:20 Radiology Impressions Chest X-Ray 12/23/21 19:01 IMPRESSION: No change, small left effusion Head CT 12/23/21 19:01 IMPRESSION: No significant findings Laboratory Results WBC 4.1 10^3/uL (4.0-10.0) 12/23/21 19:20 RBC 4.00 10^6/uL (4.1-5.3) L 12/23/21 19:20 Hgb 13.1 g/dL (11.7-16.6) 12/23/21 19:20 Hct 38.9 % (42.0-52.0) L 12/23/21 19:20 MCV 97.3 fl (80-94) H 12/23/21 19:20 MCH 32.8 pg (28.0-34.0) 12/23/21 19:20 MCHC 33.7 g/dL (30.0-36.0) 12/23/21 19:20 RDW 15.0 % (12.1-15.1) 12/23/21 19:20 Plt Count 186 10^3/cmm (130-400) 12/23/21 19:20 MPV 9.9 fL (7.4-10.4) 12/23/21 19:20 Neut % (Auto) 56.7 % 12/23/21 19:20 Lymph % (Auto) 24.1 % 12/23/21 19:20 [place] % (Auto) 14.4 % 12/23/21 19:20 Eos % (Auto) 2.9 % 12/23/21 19:20 Baso % (Auto) 1.7 % 12/23/21 19:20 Neut # (Auto) 2.33 10^3/uL (1.8-7.7) 12/23/21 19:20 Lymph # (Auto) 1.0 10^3/uL (0.8-4.8) 12/23/21 19:20 [place] # (Auto) 0.6 10^3/uL (0.2-0.9) 12/23/21 19:20 Eos # (Auto) 0.1 10^3/uL (0.0-0.8) 12/23/21 19:20 Baso # (Auto) 0.1 10^3/uL (0.0-0.1) 12/23/21 19:20 Nucleated RBC % (auto) 0 % 12/23/21: Nucleated RBCs # 0.0 /100WBC 12/23/21 19:20 Sodium 133 mmol/L (136-145) L 12/23/21 19:20 Potassium 4.1 mmol/L (3.5-5.1) 12/23/21 19:20 Chloride 95 mmol/L (98-107) L 12/23/21 19:20 Carbon Dioxide 27 mmol/L (22-29) 12/23/21 19:20 Anion Gap 15.1 (5-19) 12/23/21 19:20 BUN 36 mg/dL (6-20) H 12/23/21 19:20 Creatinine 1.6 mg/dL (0.7-1.2) H 12/23/21 19:20 GFR Calculation 44.8 mL/min (90-130) L 12/23/21 19:20 Glucose 145 mg/dL (65-115) H 12/23/21 19:20 Calculated Osmolality 287 mOsm/kg (285-295) 12/23/21 19: Calcium 9.9 mg/dL (8.5-10.5) 12/23/21 19: Total Bilirubin 0.8 mg/dL (0.15-1.2) 12/23/21 19:20 AST 26 U/L (0-40) 12/23/21 19: ALT 16 U/L (0-41) 12/23/21 19: Alkaline Phosphatase 138 IU/L (40-130) H 12/23/21 19:20 Ammonia 135 umol/L (16-60) H 12/23/21 19: NT-Pro-B Natriuret Pep 625 pg/mL (0-125) H 12/23/21 19: Total Protein 7.0 g/dL (6.6-8.7) 12/23/21: Albumin 4.0 g/dL (3.5-5.2) 12/23/21: Globulin 3.0 g/dL (1.3-4.6) 12/23/21 19:20 Urine Color Straw (Yellow) 12/23/21: Urine Appearance Clear (CLEAR) 12/23/21: Urine pH 5 (5-7) 12/23/21: Ur Specific [place] 1.005 (1.005-1.030) 12/23/21: Urine Protein Neg (Negative) 12/23/21: Urine Glucose (UA) Norm (Normal) 12/23/21: Urine Ketones Negative (Negative) 12/23/21: Urine Blood Neg (Negative) 12/23/21: Urine Nitrate Negative (Negative) 12/23/21: Urine Bilirubin Neg (Negative) 12/23/21: Urine Urobilinogen Norm mg/dL (Negative) 12/23/21: Ur Leukocyte Esterase Negative (Negative) 12/23/21: Urine Opiates Screen Negative ng/mL (Negative) 12/23/21: Ur Barbiturates Screen Negative ng/mL (Negative) 12/23/21: Ur Phencyclidine Scrn Negative ng/mL (Negative) 12/23/21: Ur Amphetamines Screen Negative ng/mL (Negative) 12/23/21 19:23 U Benzodiazepines Scrn Negative ng/mL (Negative) 12/23/21 19:23 Urine Cocaine Screen Negative ng/mL (Negative) 12/23/21 19:23 U Marijuana (THC) Screen Negative ng/mL (Negative) 12/23/21 19:23 Ethyl Alcohol < 10 mg/dL (0-10) 12/23/21 19:20 Discharge Plan Discharge Patient Disposition: Admitted As Inpatient Clinical Impression: Acute hepatic encephalopathy Condition: Stable Coding Level of Care Code ED Thermal Cutting Tracer Machine Operator for Tay Fwd Exam Comprehensive
[2021-12-23 19:31] LABS: Basophils # 0.1 10^3/uL (0.0-0.1); Basophils % 1.7 %; Eosinophils # 0.1 10^3/uL (0.0-0.8); Eosinophils % 2.9 %; Hematocrit 38.9 % (42.0-52.0); Hemoglobin 13.1 g/dL (11.7-16.6); Lymphocytes % 24.1 %; Mean Corpuscular HGB Conc 33.7 g/dL (30.0-36.0); Mean Corpuscular Hemoglobin 32.8 pg (28.0-34.0); Mean Corpuscular Volume 97.3 fl (80-94); Mean Platelet Volume 9.9 fL (7.4-10.4); Monocytes # 0.6 10^3/uL (0.2-0.9); Monocytes % 14.4 %; Neutrophils # 2.33 10^3/uL (1.8-7.7); Neutrophils % 56.7 %; Nucleated Red Blood Cells % 0 %; Platelet Count 186 10^3/cmm (130-400); White Blood Count 4.1 10^3/uL (4.0-10.0)
[2021-12-23 19:44] LABS: Amphetamines Screen Urine Negative (Negative); Barbiturates Screen Urine Negative (Negative); Benzodiazepines Screen Urine Negative (Negative); Cocaine Screen Urine Negative (Negative); Opiate Screen Urine Negative (Negative); PCP Screen Urine Negative (Negative); THC Screen Urine Negative (Negative)
[2021-12-23 19:55] LABS: Ammonia 135 umol/L (16-60)
[2021-12-23 20:00] LABS: Alanine Aminotransferase 16 U/L (0-41); Alkaline Phosphatase 138 IU/L (40-130); Anion Gap 15.1 (5-19); Aspartate Amino Transferase 26 U/L (0-40); Blood Urea Nitrogen 36 mg/dL (6-20); Calcium 9.9 mg/dL (8.5-10.5); Carbon Dioxide 27 mmol/L (22-29); Chloride 95 mmol/L (98-107); Glomerular Filtration Rate 44.8 mL/min (90-130); Glucose 145 mg/dL (65-115); NT Pro B Type Natriuretic Pept 625 pg/mL (0-125); Osmolality Calculated 287 mOsm/kg (285-295); Potassium 4.1 mmol/L (3.5-5.1); Sodium 133 mmol/L (136-145); Total Bilirubin 0.8 mg/dL (0.15-1.2)
[2021-12-23 20:03] LABS: Alcohol Level < 10 mg/dL (0-10)
[2021-12-23] MEDS: lactulose oral liq 20 gm/30 mL UDC 30 GM PO (21:27)
--- NOTE | 2021-12-23 21:34 | PM.HP ---
Providers/Chief Complaint Primary Care Provider: Yosvany Segovia MD Chief Complaint: AMS History of Present Illness The patient is a 56-year-old male who presents with chief complaint of I was confused . He states that this has been intermittent and started on this day of December 23, 2021. Early on in my conversation with the patient, who is lucid at the time of my interview, it is clear that he is noncompliant with his lactulose due to diarrhea. His mother interjects/interrupts on numerous occasions in attempts to fabricate stories about the patient's medical compliance despite the patient definitively stating that he is noncompliant with his lactulose. Furthermore, the patient indicates that because of the diarrhea which he attributes to his lactulose, he has difficulty walking to his bedside commode however he keeps the bedside commode, not at his bedside, but rather at a distance from his bedside or the chair where he sits. Unfortunately, during my encounter with the patient and his mother, I was offered circular reasoning in terms of his lack of medical compliance. Upon general review of systems, the patient admits to wheeze. He denies fever, rigors, nausea, vomiting, cough, abdominal pain, diarrhea, myalgia, dysuria, chest pain, dyspnea. He presents for further evaluation Review of Systems General: Reports: 10 or more systems reviewed and unremarkable except in HPI and below Medications/Allergies Home Medications Medication Instructions Recorded Confirmed Last Taken Type vitamin B complex (B 1 tab PO DAILY@16 01/04/20 11/29/21 10/19/21 History Complex-Vitamin B12) tramadol 50 mg tablet 100 mg PO DAILY PRN 05/05/20 11/29/21 07/09/21 History folic acid 1 mg tablet 1 mg PO DAILY@10 08/23/20 11/29/21 10/19/21 History Algaaciq boot #1 ea 09/01/20 11/29/21 Unknown Rx fluticasone propionate 50 1 - 2 spray INTRANASAL DAILY PRN 09/08/20 11/29/21 07/09/21 History mcg/actuation nasal spray,suspension Cam Walker #1 ea NS 10/02/20 11/29/21 Unknown Rx albuterol sulfate 90 mcg/actuation 2 inh INHALATION Q4H PRN 12/11/20 11/29/21 07/09/21 History aerosol inhaler ferrous sulfate 27 mg iron tablet 27 mg PO DAILY 02/11/21 11/29/21 10/19/21 History vitamins A,C,F-nvtd-zigrrq 14,320 1 cap PO DAILY 02/11/21 11/29/21 10/19/21 History unit-226 mg-200 unit capsule (PreserVision AREDS) Algaaciq Boot to the left and an #1 ea 03/23/21 11/29/21 Unknown Rx even-up applied to the right foot diltiazem HCl 120 mg 120 mg PO QAM 04/24/21 11/29/21 10/19/21 History capsule,extended release 24 hr (Cartia XT) alfuzosin 10 mg tablet,extended 10 mg PO DAILY@13 05/24/21 11/29/21 10/19/21 History release 24 hr cetirizine 10 mg tablet (Zyrtec) 10 mg PO DAILY PRN 05/24/21 11/29/21 07/09/21 History levothyroxine 50 mcg tablet 1 tab PO DAILY 08/15/21 11/29/21 10/19/21 History rifaximin 550 mg tablet 1 tab PO DAILY 08/15/21 11/29/21 10/19/21 History midodrine 5 mg tablet 10 mg PO TID 09/01/21 11/29/21 10/19/21 History pantoprazole 40 mg tablet,delayed 40 mg PO DAILY 09/01/21 11/29/21 10/19/21 History release potassium chloride 20 mEq 20 meq PO BID 09/01/21 11/29/21 10/19/21 History tablet,extended release lactulose 20 gram/30 mL oral 15 ml PO Q6H PRN #0 ml 09/05/21 11/29/21 07/09/21 Rx solution gabapentin 100 mg capsule 100 mg PO TID 10/20/21 11/29/21 10/20/21 History bumetanide 1 mg tablet 1 mg PO BID #120 tab 10/26/21 11/29/21 Unknown Rx lactulose 10 gram/15 mL oral 10 g (15 mL) PO DAILY PRN #946 ml 10/26/21 11/29/21 Unknown Rx solution levetiracetam 500 mg tablet 1,000 mg PO BID PRN #60 tab 11/17/21 11/29/21 Unknown Rx spironolactone 50 mg tablet 50 mg PO DAILY #0 tab 11/17/21 11/29/21 10/19/21 Rx ciprofloxacin HCl 500 mg tablet 500 mg PO BID #20 tab 11/29/21 11/29/21 Unknown Rx thiamine HCl (vitamin B1) 50 mg 50 mg PO DAILY 11/29/21 11/29/21 Unknown History tablet Allergies Allergy/AdvReac Type Severity Reaction Status Date / Time Penicillins Allergy ALGY-Difficulty Verified 11/29/21 15:18 Breathing Sulfa (Sulfonamide Allergy Unknown Verified 11/29/21 15:18 Antibiotics) PFSH Acute PFSH: Medical History A-fib Acute dyspnea Acute encephalopathy Acute hypokalemia Acute hyponatremia Acute kidney injury superimposed on chronic kidney disease SAMI (acute kidney injury) Alcoholic cirrhosis of liver with ascites Anasarca Anasarca Anemia Ascites Ascites due to alcoholic cirrhosis Ataxia Atrial fibrillation and flutter Echocardiogram done in 2019 shows an EF of 40 to 45% with hypokinetic septum, anteroseptum and inferior wall, biatrial enlargement Atrial fibrillation with RVR BPH loc w urin obs/LUTS C. difficile diarrhea Charcot's arthropathy Charcot's joint of left foot Chest pain Pleuritic chest pain: Resolved; CHF (congestive heart failure) CHF (congestive heart failure), NYHA class III Chronic hyponatremia Chronic hyponatremia Decompensation of cirrhosis of liver Dyspnea on exertion Encephalopathy, hepatic End-stage liver disease Erectile dysfunction ETOH abuse Ex-smoker Fracture of fourth metatarsal bone of left foot Fracture of second metatarsal bone of left foot Fracture of third metatarsal bone of left foot Hepatorenal syndrome History of abdominal paracentesis Hx of esophageal varices Hyperkalemia Hyponatremia Hyponatremia Hyponatremia with excess extracellular fluid volume Laceration of left foot Neuropathy Non-pressure chronic ulcer of other part of left foot limited to breakdown of skin Occult blood in stools Peritoneal dialysis catheter in situ Peyronie disease Pleural effusion Pleural effusion associated with hepatic disorder Pneumonia PVD (peripheral vascular disease) Stereotyped movements Upper gastrointestinal hemorrhage due to gastritis Surgical History H/O colonoscopy 10-12 yrs H/O esophagogastroduodenoscopy History of tonsillectomy Hx of umbilical hernia repair Hx of vasectomy Status post surgery (07/05/20) peritoneal catheter for ascites Family History Grandfather CAD (coronary artery disease) Grandmother CAD (coronary artery disease) Cancer Father Cancer Denies family history of Anesthesia complication Bleeding disorder Social History Smoking and tobacco status: current some day smoker Quit status (tobacco): has quit using tobacco Year quit tobacco: 2014 less than a [id number] Second hand smoke exposure: No Smoking risk assessment/counseling performed?: Yes Alcohol intake: current Alcohol intake frequency: 3 or more drinks per day Alcohol type: beer Adopted: No Caregiver/support person: Yes Lives independently: Yes Household members: children Marital status: Current occupational status: unemployed Pets and animals: Yes History of recent travel: No Current gender identity: Male Vitals/I&O/Wt Last Vital Signs Pulse 81 12/23/21 19:15 Resp 20 H 12/23/21 19:15 BP 129/85 12/23/21 19:15 Pulse Ox 99 12/23/21 19:15 Weight last 48 hrs Weight 120.202 kg Physical Exam Narrative: General: -Alert -No acute distress -No dyspnea -No tachypnea Head: -Atraumatic -Normocephalic Eyes: -Pupils equally round and reactive to light and accommodation -Extraocular muscles intact Neurological: -Cranial nerves II-XII intact Neck: -No jugular venous distention -No thyromegaly -No cervical lymphadenopathy Heart: -Regular rate -Regular rhythm -No murmurs -No gallops -No rubs Lungs: -No wheeze -No rhonchi -No rales ? Abdomen: -Normal bowel sounds in all four quadrants -No rebound -No guarding -No tenderness Extremities: -2/4 pulse in all four extremities -No clubbing -No cyanosis -No edema -No calf tenderness present bilaterally -Negative Missy?s sign bilaterally Musculoskeletal: -5/5 bilateral upper extremity strength -5/5 bilateral lower extremity strength -Sensorium of bilateral upper extremities are equal and intact -Sensorium of bilateral lower extremities are equal and intact ? Additional Details / Additional Findings / Exceptions / Miscellaneous: Data : 12/23/21 19:20 12/23/21 19:20 A&P Assessment and plan (1) Acute hepatic encephalopathy: Status: Acute Plan Hepatic encephalopathy. This is directly attributable to the patient's medical noncompliance. I an extensive discussion with the patient and his mother regarding his medical compliance yet despite the explanations I provided, they both appeared defiant regarding his future compliance. Will monitor ammonia level intermittently. Xifaxan 550 Mill grams by mouth twice a day plus lactulose 30 g by mouth 4 times a day Medical noncompliance. The patient has been counseled regarding medical compliance and both he, and his mother are argumentative during this conversation Hyponatremia. We will monitor sodium level intermittently. IV normal saline 75 ML's per hour Peyronie's disease Erectile dysfunction BPH Orthostatic hypotension Hypothyroid and. TSH, free T4 pending History of seizure. Seizure precautions Neuropathy. Gabapentin 100 mg by mouth 3 times a day Seasonal allergies CHF, ejection fraction 40-45% Coronary artery disease GERD Hypertension. Cardia XT 120 Mill grams by mouth daily Obesity. The patient becomes regarding lifestyle modification Smoker. The patient becomes regarding smoking cessation Macrocytosis. Check TSH, free T4, B12, folate levels Chronic kidney disease. The patient's baseline creatinine is typically approximately 2. Will monitor creatinine intermittently. IV normal saline 75 ML's per hour History of hyperuricemia History of iron deficiency History of vitamin D deficiency Cirrhosis. Will monitor LFTs periodically with CMP along with PT/INR Esophageal varices Diverticulosis Atrial for ablation. Telemetry monitoring. Cartia XT 120 mg by mouth daily Peripheral vascular disease Left Charcot foot. Wound care consult pending DVT Proflex is. Bilateral SCD Attestations Medical Necessity Statement*: The patient's anticipate hospital length of stay will be greater than 2 midnights for treatment of his hyperammonemia Coding Level of Care Code Acute Senior Facilities Manager for Tay Rust Diagnoses Acute hepatic encephalopathy K72.00
[2021-12-23 21:58] LABS: INR 1.12 (0.8-1.2)
[2021-12-23 22:05] LABS: Bilirubin Urine Neg (Negative); Blood Urine Neg (Negative); Glucose Urine UA Norm (Normal); Ketones Urine Negative (Negative); Leukocyte Esterase Urine Negative (Negative); Nitrate Urine Negative (Negative); Protein Urine Neg (Negative); Specific Gravity, Urine 1.005 (1.005-1.030); Urine Appearance Clear (CLEAR); Urine Color Straw (Yellow); Urobilinogen Urine Norm (Negative); pH Urine 5 (5-7)
[2021-12-23 22:06] LABS: Add Urine Culture? No
[2021-12-23 22:17] VITALS: BP 131/89; PULSE 85; RESP 16; TEMP 36.9; O2SAT 98
[2021-12-23 22:18] VITALS: BMI 37.6
[2021-12-23 22:49] VITALS: PULSE 92
[2021-12-23] MEDS: sodium chloride 0.9% 1,000 ML 75 ML IV (22:51)
[2021-12-23 23:58] LABS: Vitamin B12 499 pg/mL (232-1245)
[2021-12-24] VITALS (10 sets, daily range): BP systolic 93–167; BP diastolic 57–76; PULSE 60–88; RESP 17–20; TEMP 36.3–36.8; O2SAT 96–99
[2021-12-24 00:11] LABS: Folate Level > 20.0 ng/mL (4.5-32.2)
[2021-12-24 01:56] LABS: Free T4 Free Thyroxine 1.22 ng/dL (0.82-1.77)
[2021-12-24] MEDS: dilTIAZem ER (24HR) 120 mg Capsule PO (05:30)
--- NOTE | 2021-12-24 06:00 | PC.NURSE ---
PATIENT ENCOURAGED TO GET UP TO CHAIR FOR BREAKFAST, PATIENT AGREED. UP IN CHAIR WITH STAND BY ASSIST.
--- NOTE | 2021-12-24 10:36 | PC.CHAP ---
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 occupational health and safety officer visit [] Patient/Family/Request visit [] Outpatient visit [] Follow-up visit [] Physician referral [] Code/Alert [] Routine visit [] Staff referral [] Actively dying [] Patient sleeping [] Family support [] [] Out of room [] Palliative care [] [] Receiving care in room [] Pre-surgical visit [] Trauma [] Long length of stay [] ICU visit [] Other: Relational/Emotional Strength [x] Patient feels connected with others/family/visitors/staff [] Distress [] Loneliness/isolation [] Abandonment Spirituality of Patient [x] Person of Jana [x] Attends Catholic of their Jana [x] Believes in Prayer [] Reads Bible or Zoroastrianism materials [] There are Spiritual issues to be addressed Pulling Machine Operator Interventions [x] Prayer [x] Active listening [x] Non-anxious presence [] Spiritual/emotional support [] Crisis/trauma care [] Spiritual counseling [] Bereavement support [] Provided bereavement packet [] Provided Bible/devotional materials [] Provided toy/stuffed animal, coloring book to patient or family member [] Provided Communion [] Anointing/[place] [] Salvation [x] Completed spiritual assessment [] Other: Impact on Illness or Injury [] Angry [] Fearful [] Anxious [] Often cries [] Exhaustion [] Unable to work [] Unable to attend evangelical [] Unable to walk/stand [] Unable to read [] Unable to drive [] Unable to eat/drink [] Unable to sleep [] Unable to be with family [] Patient intubated [] Other: Summary Time spent with patient 10 min
[2021-12-24] MEDS: lactulose oral liq 20 gm/30 mL UDC 30 GM PO ×4 (10:43→20:30)
[2021-12-24] MEDS: gabapentin 100 mg Capsule PO ×3 (10:43→20:30)
[2021-12-24] MEDS: sodium chloride 0.9% 1,000 ML 75 ML IV (10:47)
[2021-12-24 11:30] LABS: Glucose Point of Care 90 mg/dL (70-110)
--- NOTE | 2021-12-24 18:26 | P.PN_ITS ---
Subjective Subjective: Patient was seen and examined this morning, he was alert awake oriented x3, Told that he was not taking lactulose as prescribed at home, currently is fairly compensated and slightly dry Bumex , spironolactone has been kept on hold , a.m. labs likely has not been ordered We will follow labs tomorrow in the morning. Continue gentle IV hydration with normal saline. Medications: Medication Review Details: Generic Name Dose Route Start Last Admin Trade Name Freq PRN Reason Stop Dose Admin Diltiazem HCl 120 mg 12/24/21 06:00 12/24/21 05:30 Diltiazem Er (24 hr) 120 Mg Capsule PO 120 mg QAM DHAVAL Administration Gabapentin 100 mg 12/24/21 09:00 12/24/21 14:35 Gabapentin 100 M g Capsule PO 100 mg TID DHAVAL Administration Sodium Chloride 1,000 mls @ 75 ml s/hr 12/23/21 22:17 12/24/21 10:47 Sodium Chloride 0.9% IV 75 mls/hr .[id number] DHAVAL Administration Lactulose 30 gm 12/24/21 09:00 12/24/21 17:46 Lactulose Oral L iq 20 Gm/30 Ml Udc PO 30 gm QID DHAVAL Administration Rifaximin 550 mg 12/24/21 09:00 12/24/21 17:46 Rifaximin 550 Mg Tablet PO 550 mg BID DHAVAL Administration Protocol Vitals/I&O/Wt Last Vital Signs Temp 97.6 F 12/24/21 16:00 Pulse 61 12/24/21 16:00 Resp 18 12/24/21 16:00 BP 129/76 12/24/21 16:00 Pulse Ox 98 12/24/21 16:00 12/24/21 12/24/21 12/24/21 06:59 14:59 22:59 Intake Total 480 / 480 1375 / 1375 Output Total 201 / 201 400 / 400 600 / 1000 Balance 279 / 279 975 / 975 -600 / 375 Weight last 48 hrs Weight 125.963 kg Weight 120.202 kg Physical Exam Const: COMMON NORMALS: patient oriented x3 HENMT: COMMON NORMALS: normocephalic and atraumatic HEAD & SCALP: normocephalic and atraumatic Chest: CHEST: Yes Symmetrical chest wall rise Resp: COMMON NORMALS: clear to auscultation bilaterally AUSCULTATION: clear to auscultation bilaterally Cardio: COMMON NORMALS: regular rate, regular rhythm, S1 normal heart sound present, S2 normal heart sound present, No gallops present (Cardio), No murmurs present (Cardio), No rub (Cardio) and Peripheral pulses 2+ throughout RATE: regular rate RHYTHM: regular rhythm HEART SOUNDS: S1 normal heart sound present and S2 normal heart sound present PERIPHERAL PULSES: Peripheral pulses 2+ throughout GI: COMMON NORMALS: Normal to inspection, nondistended, normoactive bowel sounds present, Soft to palpation, non-tender, No hepatosplenomegaly present and no masses AUSCULTATION: Yes normoactive bowel sounds PALPATION: Yes Soft to palpation and Yes No hepatosplenomegaly present RECTAL EXAM: Yes deferred Extremity: COMMON NORMALS: no clubbing, cyanosis or edema and no pedal edema Neuro: COMMON NORMALS: patient oriented x3 Data : 12/23/21 19:20 12/23/21 19:20 A&P Assessment and plan (1) Acute hepatic encephalopathy: Status: Acute (2) Seizure: Status: Acute Plan 56-year-old male with past medical history of hypertension Decompensated alcoholic liver cirrhosis , Hx of esophageal varices , A. 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 Assessment # Hepatic encephalopathy: Grade 1 hepatic encephalopathy Patient was not taking lactulose as Prescribed, he supposed to take lactulose 3 times a day, currently was taking lactulose once only. Serum ammonia: 135 CT head without contrast: No acute intracranial pathology X-ray chest: Small left pleural effusion, no infiltrates Continue to monitor ammonia level Lactulose: 30 MG PO QID Rifaximin: 550 MG PO BID Target for 3-4 soft bowel movement Monitor electrolytes Avoid dehydration Currently low clinical suspicion for infection precipitating hepatic encephalopathy Continue to monitor mentation #History of A. 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 twice daily Patient is slightly dry, continue to hold Bumex to avoid dehydration, precipitating hepatic encephalopathy, continue to hold spironolactone. #Decompensated alcoholic liver cirrhosis #Hypothyroidism: TSH : Continue levothyroxine 50 mcg p.o. daily #Chronic hyponatremia: Secondary to SIADH likely secondary to relative hypervolemia secondary to alcoholic cirrhosis. Continue to monitor BMP Continue gentle IV hydration with NS 75 cc an hour #History of esophageal varices: #CKD stage III: Currently serum creatinine at baseline: Continue to monitor intake output charting Avoid nephrotoxic's Monitor BMP #History of seizure: Continue Keppra Neuropathy.? Gabapentin 100 mg by mouth 3 times a day Seasonal allergies Hypertension.? Cardia XT 120 Mill grams by mouth daily Obesity.? The patient becomes regarding lifestyle modification Smoker.? The patient becomes regarding smoking cessation Macrocytosis.? Check TSH, free T4, B12, folate levels DVT Proflex is.? Bilateral SCD Attestations Medical Necessity Statement*: Needs to be in hospital for management of hepatic encephalopathy. Time Spent in Patient Care: 16 - 35 minutes (>than 50% of time spent in counselling and/or direct pt care on unit) . Coding Level of Care Code Acute Public Health Specialist for [facility] Rust Diagnoses Acute hepatic encephalopathy K72.00 Seizure R56.9
[2021-12-24] MEDS: TRAMadol 50 mg Tablet 100 MG PO (22:29)
[2021-12-25] MEDS: sodium chloride 0.9% 1,000 ML 75 ML IV (00:13)
[2021-12-25 03:32] LABS: Basophils # 0.1 10^3/uL (0.0-0.1); Basophils % 1.5 %; Eosinophils # 0.1 10^3/uL (0.0-0.8); Eosinophils % 2.8 %; Hematocrit 33.6 % (42.0-52.0); Hemoglobin 11.3 g/dL (11.7-16.6); Lymphocytes # 0.9 10^3/uL (0.8-4.8); Lymphocytes % 20.1 %; Mean Corpuscular HGB Conc 33.6 g/dL (30.0-36.0); Mean Corpuscular Volume 98.2 fl (80-94); Mean Platelet Volume 9.7 fL (7.4-10.4); Monocytes % 20.8 %; Neutrophils # 2.48 10^3/uL (1.8-7.7); Neutrophils % 54.4 %; Nucleated Red Blood Cells % 0 %; Platelet Count 152 10^3/cmm (130-400); Red Blood Count 3.42 10^6/uL (4.1-5.3); Red Cell Distribution Width 14.8 % (12.1-15.1); White Blood Count 4.6 10^3/uL (4.0-10.0)
[2021-12-25 03:57] LABS: Ammonia 88 umol/L (16-60)
[2021-12-25 04:00] LABS: Alanine Aminotransferase 15 U/L (0-41); Albumin Level 3.2 g/dL (3.5-5.2); Alkaline Phosphatase 99 IU/L (40-130); Anion Gap 10.6 (5-19); Aspartate Amino Transferase 24 U/L (0-40); Blood Urea Nitrogen 25 mg/dL (6-20); Calcium 9.3 mg/dL (8.5-10.5); Carbon Dioxide 27 mmol/L (22-29); Chloride 102 mmol/L (98-107); Globulin 2.9 g/dL (1.3-4.6); Glomerular Filtration Rate 62.4 mL/min (90-130); Glucose 81 mg/dL (65-115); Osmolality Calculated 283 mOsm/kg (285-295); Potassium 4.6 mmol/L (3.5-5.1); Sodium 135 mmol/L (136-145); Total Bilirubin 0.9 mg/dL (0.15-1.2); Total Protein 6.1 g/dL (6.6-8.7)
[2021-12-25 04:43] VITALS: BP 106/59; PULSE 77; RESP 16; TEMP 36.8; O2SAT 95
--- NOTE | 2021-12-25 05:17 | NUR.SHIFT ---
Oriented when awake this shift. Did rest in bed throughout the night. Had complaint of discomfort that was alleviated with prn medication. Up to BSC with stand by assist using walker without distress. Had multiple BM's this shift. Able to independently wipe self and use urinal without assistance. 18 G iv in left AC infusing NS at 75ml/hr.
[2021-12-25] MEDS: levothyroxine 50 mcg Tablet PO (05:59)
[2021-12-25] MEDS: dilTIAZem ER (24HR) 120 mg Capsule PO (05:59)
[2021-12-25 06:00] VITALS: PULSE 77
--- NOTE | 2021-12-25 06:01 | PC.NURSE ---
Patient encouraged to get up to chair for breakfast. Patient declines to get up at this time.
[2021-12-25] MEDS: lactulose oral liq 20 gm/30 mL UDC 30 GM PO ×2 (07:52→13:41)
[2021-12-25] MEDS: thiamine 100 mg Tablet 50 MG PO (07:52)
[2021-12-25] MEDS: gabapentin 100 mg Capsule PO ×2 (07:52→15:06)
[2021-12-25 07:53] VITALS: BP 103/66; PULSE 79; RESP 18; TEMP 36.6; O2SAT 96
[2021-12-25] MEDS: levETIRAcetam 500 mg Tablet 1000 MG PO (07:53)
[2021-12-25] MEDS: pantoprazole DR 40 mg Tablet PO (07:53)
--- NOTE | 2021-12-25 11:29 | PM.DCS ---
Discharge Providers Date of Admission: 12/23/21 22:10 Date of Discharge: December 25, 2021 Attending Provider at Admission: Vinay Lezama DO Attending Provider at Discharge: Matthew Koroma MD Primary Care Provider: Yosvany Segovia MD Diagnoses at Discharge Discharge Diagnosis (1) Acute hepatic encephalopathy: Status: Acute (2) Seizure: Status: Acute Reason for Visit Reason for Visit: AMS Hospital Course Hospital Course 56-year-old male with past medical history of hypertension Decompensated alcoholic liver cirrhosis , Hx of esophageal varices , A. 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 He was admitted for the management of hepatic encephalopathy grade 1: Likely secondary to dehydration, As well as possibly not taking lactulose as prescribed, during the hospital stay he was kept on lactulose, Rifaximin , gentle IV hydration , Bumex spironolactone was kept on hold, 3-4 soft bowel movements were targeted, electrolytes were monitored, low clinical suspicion for infection as a precipitating event for hepatic encephalopathy , Serum ammonia was monitored. At the time of discharge he was alert awake oriented x3 no signs of encephalopathy, he was euvolemic, tolerating diet well. He has been asked to hold Bumex for till , monitor his weight daily if there is an increase in 5 pounds of weight in the next 3 to 4 days, or he started developing increasing shortness of breath, increasing bilateral lower extremity swelling, then resume Bumex, he has been asked to continue with spironolactone, he has been asked to continue with rifaximin, Has been asked to follow-up with his primary care physician in 1 week, for further medical optimization. During this hospital stay he was continued to be managed for his other comorbid conditions. #History of A. fib:: Continue Cardizem Currently well controlled heart rate Not on anticoagulation because of significant risk of GI bleed. 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 Hypothyroidism:Continue levothyroxine 50 mcg p.o. daily Chronic hyponatremia: Secondary to SIADH likely secondary to relative hypervolemia secondary to alcoholic cirrhosis. BMP was monitored responded well to gentle IV hydration.History of esophageal varices: In presence of h/o severe decompensation no role for propranolol. CKD stage III: Currently serum creatinine at baseline:Continue to monitor intake output charting Avoid nephrotoxic's Monitor BMP for his history of seizure: Continue Keppra. Patient responded well to above medical management and was discharged in stable condition to home. Physical Exam Const: COMMON NORMALS: patient oriented x3 HENMT: COMMON NORMALS: normocephalic and atraumatic HEAD & SCALP: normocephalic and atraumatic Chest: CHEST: Yes Symmetrical chest wall rise Resp: COMMON NORMALS: clear to auscultation bilaterally AUSCULTATION: clear to auscultation bilaterally Cardio: COMMON NORMALS: regular rate, regular rhythm, S1 normal heart sound present, S2 normal heart sound present, No gallops present (Cardio), No murmurs present (Cardio), No rub (Cardio) and Peripheral pulses 2+ throughout RATE: regular rate RHYTHM: regular rhythm HEART SOUNDS: S1 normal heart sound present and S2 normal heart sound present PERIPHERAL PULSES: Peripheral pulses 2+ throughout GI: COMMON NORMALS: Normal to inspection, nondistended, normoactive bowel sounds present, Soft to palpation, non-tender, No hepatosplenomegaly present and no masses AUSCULTATION: Yes normoactive bowel sounds PALPATION: Yes Soft to palpation and Yes No hepatosplenomegaly present RECTAL EXAM: Yes deferred Extremity: COMMON NORMALS: no clubbing, cyanosis or edema and no pedal edema Neuro: COMMON NORMALS: patient oriented x3 Discharge Data Studies Completed and Pending Completed Studies During Hospitalization Category Date Time Status CT head wo con* [id number] Urgent Cat Scan 12/23/21 19:01 Completed XR chest 1V portable [id number] Urgent Exams 12/23/21 19:01 Completed Pending at discharge Category Date Time Status Ammonia AM LABS Lab 12/26/21 04:00 Ordered Ammonia AM LABS Lab 12/27/21 04:00 Ordered CBC Auto Diff [Complete Blood Count w/Auto] AM LABS Lab 12/26/21 04:00 Ordered CBC Auto Diff [Complete Blood Count w/Auto] AM LABS Lab 12/27/21 04:00 Ordered CMP [Comprehensive Metabolic Panel] AM LABS Lab 12/26/21 04:00 Ordered CMP [Comprehensive Metabolic Panel] AM LABS Lab 12/27/21 04:00 Ordered Radiology Impressions Chest X-Ray 12/23/21 19:01 IMPRESSION: No change, small left effusion Head CT 12/23/21 19:01 IMPRESSION: No significant findings Laboratory Results WBC 4.6 10^3/uL (4.0-10.0) 12/25/21 02:57 RBC 3.42 10^6/uL (4.1-5.3) L 12/25/21 02:57 Hgb 11.3 g/dL (11.7-16.6) L 12/25/21 02:57 Hct 33.6 % (42.0-52.0) L 12/25/21 02:57 MCV 98.2 fl (80-94) H 12/25/21 02:57 MCH 33.0 pg (28.0-34.0) 12/25/21 02:57 MCHC 33.6 g/dL (30.0-36.0) 12/25/21 02:57 RDW 14.8 % (12.1-15.1) 12/25/21 02:57 Plt Count 152 10^3/cmm (130-400) 12/25/21 02:57 MPV 9.7 fL (7.4-10.4) 12/25/21 02:57 Neut % (Auto) 54.4 % 12/25/21 02:57 Lymph % (Auto) 20.1 % 12/25/21 02:57 [place] % (Auto) 20.8 % 12/25/21 02:57 Eos % (Auto) 2.8 % 12/25/21 02:57 Baso % (Auto) 1.5 % 12/25/21 02:57 Neut # (Auto) 2.48 10^3/uL (1.8-7.7) 12/25/21 02:57 Lymph # (Auto) 0.9 10^3/uL (0.8-4.8) 12/25/21 02:57 [place] # (Auto) 1.0 10^3/uL (0.2-0.9) H 12/25/21 02:57 Eos # (Auto) 0.1 10^3/uL (0.0-0.8) 12/25/21 02:57 Baso # (Auto) 0.1 10^3/uL (0.0-0.1) 12/25/21 02:57 Nucleated RBC % (auto) 0 % 12/25/21 02:57 Nucleated RBCs # 0.0 /100WBC 12/25/21 02:57 PT 14.70 SECONDS (12.1-14.9) 12/23/21 19:20 INR 1.12 (0.8-1.2) 12/23/21 19:20 Sodium 135 mmol/L (136-145) L 12/25/21 02:57 Potassium 4.6 mmol/L (3.5-5.1) 12/25/21 02:57 Chloride 102 mmol/L (98-107) 12/25/21 02:57 Carbon Dioxide 27 mmol/L (22-29) 12/25/21 02:57 Anion Gap 10.6 (5-19) 12/25/21 02:57 BUN 25 mg/dL (6-20) H 12/25/21 02:57 Creatinine 1.2 mg/dL (0.7-1.2) 12/25/21 02:57 GFR Calculation 62.4 mL/min (90-130) L 12/25/21 02:57 Glucose 81 mg/dL (65-115) 12/25/21 02:57 POC Glucose 90 mg/dL (70-110) 12/24/21 11:24 Calculated Osmolality 283 mOsm/kg (285-295) L 12/25/21 02:57 Calcium 9.3 mg/dL (8.5-10.5) 12/25/21 02:57 Total Bilirubin 0.9 mg/dL (0.15-1.2) 12/25/21 02:57 AST 24 U/L (0-40) 12/25/21 02:57 ALT 15 U/L (0-41) 12/25/21 02:57 Alkaline Phosphatase 99 IU/L (40-130) 12/25/21 02:57 Ammonia 88 umol/L (16-60) H 12/25/21 02:57 NT-Pro-B Natriuret Pep 625 pg/mL (0-125) H 12/23/21 19:20 Total Protein 6.1 g/dL (6.6-8.7) L 12/25/21 02:57 Albumin 3.2 g/dL (3.5-5.2) L 12/25/21 02:57 Globulin 2.9 g/dL (1.3-4.6) 12/25/21 02:57 Vitamin B12 499 pg/mL (232-1245) 12/23/21 19:20 Folate > 20.0 ng/mL (4.5-32.2) 12/23/21 19:20 TSH 4.20 uIU/mL (0.27-4.20) 12/23/21 19:20 Free T4 1.22 ng/dL (0.82-1.77) 12/23/21 19:20 Urine Color Cancelled 12/23/21 19:23 Urine Color Straw (Yellow) 12/23/21 19:23 Urine Appearance Cancelled 12/23/21 19: Urine Appearance Clear (CLEAR) 12/23/21 19: Urine pH 5 (5-7) 12/23/21 19: Urine pH Cancelled 12/23/21 19:23 Ur Specific [place] 1.005 (1.005-1.030) 12/23/21 19:23 Ur Specific [place] Cancelled 12/23/21 19:23 Urine Protein Cancelled 12/23/21 19:23 Urine Protein Neg (Negative) 12/23/21 19:23 Urine Glucose (UA) Cancelled 12/23/21 19:23 Urine Glucose (UA) Norm (Normal) 12/23/21 19:23 Urine Ketones Cancelled 12/23/21 19: Urine Ketones Negative (Negative) 12/23/21 19:23 Urine Blood Cancelled 12/23/21 19:23 Urine Blood Neg (Negative) 12/23/21 19:23 Urine Nitrate Cancelled 12/23/21 19:23 Urine Nitrate Negative (Negative) 12/23/21 19:23 Urine Bilirubin Cancelled 12/23/21 19:23 Urine Bilirubin Neg (Negative) 12/23/21 19:23 Prot Sulfosalicylic Acd Cancelled 12/23/21 19:23 Urine Urobilinogen Cancelled 12/23/21 19:23 Urine Urobilinogen Norm mg/dL (Negative) 12/23/21 19:23 Ur Leukocyte Esterase Cancelled 12/23/21 19:23 Ur Leukocyte Esterase Negative (Negative) 12/23/21 19:23 Urine RBC None /hpf (0-2) 12/23/21 19:23 Urine WBC None /hpf (0-5) 12/23/21 19:23 Ur Squamous Epith Cells None /hpf (0-5) 12/23/21 19:23 Amorphous Sediment Not Reportable 12/23/21 19:23 Urine Bacteria None /hpf (NONE) 12/23/21 19:23 Urine Opiates Screen Negative ng/mL (Negative) 12/23/21 19:23 Ur Barbiturates Screen Negative ng/mL (Negative) 12/23/21 19:23 Ur Phencyclidine Scrn Negative ng/mL (Negative) 12/23/21 19:23 Ur Amphetamines Screen Negative ng/mL (Negative) 12/23/21 19:23 U Benzodiazepines Scrn Negative ng/mL (Negative) 12/23/21 19:23 Urine Cocaine Screen Negative ng/mL (Negative) 12/23/21 19:23 U Marijuana (THC) Screen Negative ng/mL (Negative) 12/23/21 19:23 Ethyl Alcohol < 10 mg/dL (0-10) 12/23/21 19:20 Vitals Last Vital Signs Temp 97.8 F 12/25/21 07:53 Pulse 79 12/25/21 07:53 Resp 18 12/25/21 07:53 BP 103/66 12/25/21 07:53 Pulse Ox 96 12/25/21 07:53 Discharge Plan Discharge Patient Disposition: Home Condition: Stable Prescriptions: Continued vitamin B complex [B Complex-Vitamin B12] Tablet 1 tab PO DAILY@16 0RF (DME) Eliezer Hagen See Rx Instructions .Route .MEDSUPPLY Qty: 1 0RF Rx Instructions: As directed diltiazem HCl [Cartia XT] 120 mg capsule,extended release 24hr 120 mg PO QAM 0RF levothyroxine 50 mcg tablet 50 mcg PO QAM 0RF Xifaxan 550 mg tablet 550 mg PO BID 0RF thiamine HCl (vitamin B1) 50 mg tablet 50 mg PO DAILY 0RF (DME) [place] boot See Rx Instructions .Route .MEDSUPPLY Qty: 1 0RF Rx Instructions: As directed (DME) [place] Boot to the left and an even-up applied to the right foot See Rx Instructions .Route .MEDSUPPLY Qty: 1 0RF Rx Instructions: As directed by Laureen tramadol 50 mg Tablet 100 mg PO DAILY PRN (Reason: Pain) 0RF folic acid 1 mg tablet 1 mg PO DAILY@10 0RF fluticasone propionate 50 mcg/actuation spray,suspension 1 - 2 spray intranasal DAILY PRN (Reason: Allergy Symptoms) 0RF albuterol sulfate 90 mcg/actuation HFA aerosol inhaler 2 puff INHALATION Q4H PRN (Reason: shortness of breath/wheezing) 0RF PreserVision AREDS [id number] Capsule 1 cap PO DAILY 0RF cetirizine [Zyrtec] 10 mg Tablet 10 mg PO DAILY 0RF alfuzosin 10 mg tablet extended release 24 hr 10 mg PO DAILY@13 0RF Rx Instructions: administer after the same meal each day midodrine 5 mg tablet 5 mg PO TID 0RF pantoprazole 40 mg tablet,delayed release (DR/EC) 40 mg PO DAILY 0RF gabapentin 100 mg Capsule 100 mg PO TID 0RF spironolactone 50 mg Tablet 50 mg PO DAILY Qty: 0 4RF levetiracetam 500 mg tablet 1,000 mg PO BID 0RF iron 325 mg (65 mg iron) Tablet 325 mg PO DAILY 0RF Changed lactulose 10 gram/15 mL solution 30 ml PO BID 30 Days Qty: 0 0RF Held potassium chloride 20 mEq Tablet Extended Release 20 meq PO BID 0RF Hold Instructions: Resume on 12/30/21. bumetanide 1 mg tablet 1 mg PO BID Qty: 120 3RF Hold Instructions: Resume on 12/30/21. Discontinued furosemide 40 mg tablet 40 mg PO BID 0RF Discharge Orders: Discharge Order (Routine); Ordered 12/25/21 Ordered By: Matthew Koroma Referrals: Yosvany Segovia MD [Primary Care Provider] - 12/31/21 11:30 am Discharge Diet: Regular Patient Instructions: Lactulose (By mouth), Hepatic Encephalopathy (GEN), Opioid Safety Discharge Attestations Time Spent in Discharge Care*: less than 30 min Specific Discharge Activities: educating patient, educating and/or supporting family/caregiver, discussing with pcp/other providers, discussing with rehabilitation caseworker/social workers/dc planners, documenting/other paperwork and evaluating patient/reviewing data Status at Discharge: Cognitive status at discharge: cognitively intact, Behavioral status at discharge: cooperative, Quality Metrics Clinical Quality Measures [ No reported AMI, CVA or VTE this stay] Coding Level of Care Code Acute Chg FW DC note Diagnoses Acute hepatic encephalopathy K72.00 Seizure R56.9
[2021-12-25 11:56] VITALS: BP 121/69; PULSE 68; RESP 18; TEMP 36.9; O2SAT 97
[2021-12-25 15:23] VITALS: BP 121/69; PULSE 68; RESP 18; TEMP 36.9; O2SAT 97
== END 2021-12-25 15:24 | disposition home health service (06) | DRG 442 ==
LOC: ER 21:03 → MEDSURG 12-24 07:27
PROVIDERS: Admitting Provider Internal Medicine; Emergency Provider Emergency Medicine; PCP Family Medicine; Visit Provider Internal Medicine
DX: K72.00 Acute and subacute hepatic failure without coma (principal); E22.2 Syndrome of inappropriate secretion of antidiuretic hormone; I13.0 Hypertensive heart and chronic kidney disease with heart failure and stage 1 through stage 4 chronic kidney disease, or unspecified chronic kidney disease; I50.22 Chronic systolic (congestive) heart failure; I42.6 Alcoholic cardiomyopathy; K72.10 Chronic hepatic failure without coma; K70.30 Alcoholic cirrhosis of liver without ascites; F10.10 Alcohol abuse, uncomplicated; F17.210 Nicotine dependence, cigarettes, uncomplicated; T47.3X6A Underdosing of saline and osmotic laxatives, initial encounter; Z91.128 Patient's intentional underdosing of medication regimen for other reason; N48.6 Induration penis plastica; N52.9 Male erectile dysfunction, unspecified; N40.0 Benign prostatic hyperplasia without lower urinary tract symptoms; I95.1 Orthostatic hypotension; E03.9 Hypothyroidism, unspecified; G62.9 Polyneuropathy, unspecified; N18.30 Chronic kidney disease, stage 3 unspecified; I25.10 Atherosclerotic heart disease of native coronary artery without angina pectoris; K21.9 Gastro-esophageal reflux disease without esophagitis; E66.9 Obesity, unspecified; Z68.37 Body mass index [BMI] 37.0-37.9, adult; E86.0 Dehydration; I48.91 Unspecified atrial fibrillation; M14.672 Charcot's joint, left ankle and foot; I73.9 Peripheral vascular disease, unspecified; K57.90 Diverticulosis of intestine, part unspecified, without perforation or abscess without bleeding
CPT/HCPCS: 36416; 70450; 71045; 80053; 80306; 80307; 81001; 82140; 82607; 82746; 82962; 83880; 84439; 84443; 85025; 85610; 93005; 97116; 97161; 99285; J7030

== ENCOUNTER → 2022-01-29 11:58 | Outpatient (BNVA) | payer OTHER, SELFPAY | PROVIDERS: PCP Family Medicine; Visit Provider Podiatrist Foot & Ankle Surgery | DX: M14.672 Charcot's joint, left ankle and foot (principal) | CPT/HCPCS: 73630 ==

== ENCOUNTER → 2022-03-22 12:00 | Outpatient (BNVA) | payer OTHER, SELFPAY | PROVIDERS: PCP Family Medicine; Visit Provider Podiatrist Foot & Ankle Surgery | DX: M14.672 Charcot's joint, left ankle and foot (principal) | CPT/HCPCS: 73630 ==

== ENCOUNTER 2022-10-21 17:23 | Inpatient (IN) | payer MEDICARE, MEDICAID, SELFPAY ==
[2022-10-21] VITALS (16 sets, daily range): BP systolic 114–137; BP diastolic 64–77; PULSE 83–107; RESP 11–25; TEMP 36.6–37; O2SAT 89–97; BMI 54.2
--- NOTE | 2022-10-21 17:30 | W.ED.LOWEXIN ---
HPI - Extremity Injury (Lower) General: Chief Complaint: Extremity Injury, Lower Stated Complaint: LEFT ANKLE PAIN/ 2 DAYS AGO Time Seen by Provider: 10/21/22 17:30 History of Present Illness: 57-year-old male patient comes in for several complaints today. Patient reports increase in fluid retention, injury to the left ankle x2 days, and severe rash to the skin. Patient states on Friday he had stepped wrong on his ankle and felt a pop in the left ankle and has had continued pain and discomfort to the ankle. Patient does have a cyst to the bottom of the foot which is being managed by Dr. Looney, nail welter. Patient is concerned he may have fractured his ankle. Patient also is concerned about increased fluid retention and states that he has swelling more with increased edema to the groin and penis. Patient is morbidly obese and has a history of peripheral vascular disease, encephalopathy, BPH, dysuria, peritonitis, CHF. Patient also has some extensive redness and drainage to what he reports as a yeast rash to his groin and axilla. Patient was started on nystatin powder but reports no improvement since starting the powder and reports more worsening of symptoms. Patient denies diabetes. Review of Systems Card: Denies: chest pain Resp: Reports: dyspnea Musc: Reports: extremity pain (Left ankle) and extremity swelling Skin/Breast: Reports: erythema (Bilateral axilla and inguinal) PFSH ED PFSH: Medical History A-fib Acute dyspnea Acute encephalopathy Acute hepatic encephalopathy Acute hypokalemia Acute hyponatremia Acute kidney injury superimposed on chronic kidney disease SAMI (acute kidney injury) Alcoholic cirrhosis of liver with ascites Anasarca Anasarca Anemia Ascites Ascites due to alcoholic cirrhosis Ataxia Atrial fibrillation and flutter Echocardiogram done in 2019 shows an EF of 40 to 45% with hypokinetic septum, anteroseptum and inferior wall, biatrial enlargement Atrial fibrillation with RVR BPH loc w urin obs/LUTS C. difficile diarrhea Charcot's arthropathy Charcot's joint of left foot Chest pain Pleuritic chest pain: Resolved; CHF (congestive heart failure) CHF (congestive heart failure), NYHA class III Chronic hyponatremia Chronic hyponatremia Decompensation of cirrhosis of liver Dyspnea on exertion Encephalopathy, hepatic End-stage liver disease Erectile dysfunction ETOH abuse Ex-smoker Fracture of fourth metatarsal bone of left foot Fracture of second metatarsal bone of left foot Fracture of third metatarsal bone of left foot Hepatorenal syndrome History of abdominal paracentesis Hx of esophageal varices Hyperkalemia Hyponatremia Hyponatremia Hyponatremia with excess extracellular fluid volume Laceration of left foot Neuropathy Non-pressure chronic ulcer of other part of left foot limited to breakdown of skin Occult blood in stools Peritoneal dialysis catheter in situ Peyronie disease Pleural effusion Pleural effusion associated with hepatic disorder Pneumonia PVD (peripheral vascular disease) Seizure Stereotyped movements Upper gastrointestinal hemorrhage due to gastritis Surgical History H/O colonoscopy 10-12 yrs H/O esophagogastroduodenoscopy History of tonsillectomy Hx of umbilical hernia repair Hx of vasectomy Status post surgery (07/05/20) peritoneal catheter for ascites Family History Grandfather CAD (coronary artery disease) Grandmother CAD (coronary artery disease) Cancer Father Cancer Denies family history of Anesthesia complication Bleeding disorder Social History Smoking and tobacco status: current some day smoker Quit status (tobacco): has quit using tobacco Year quit tobacco: 2014 less than a [id number] Second hand smoke exposure: No Smoking risk assessment/counseling performed?: Yes Alcohol intake: former Adopted: No Caregiver/support person: Yes Lives independently: Yes Household members: children Marital status: Current occupational status: disabled Pets and animals: Yes History of recent travel: No Current gender identity: Male Physical Exam Const: COMMON NORMALS: alert HENMT: COMMON NORMALS: normocephalic HEAD & SCALP: normocephalic MOUTH: Normal oral and palatal mucosa present Resp: COMMON NORMALS: normal respiratory effort and clear to auscultation bilaterally AUSCULTATION: clear to auscultation bilaterally Cardio: COMMON NORMALS: regular rate and regular rhythm RATE: regular rate RHYTHM: regular rhythm GI: COMMON NORMALS: non-tender : OTHER: Swelling of the penis and scrotum. Inguinal redness with a present intertrigo Extremity: NARRATIVE EXTREMITY EXAM: Generalized anasarca Neuro: SENSORIUM/ORIENTATION: Yes alert Skin: NARRATIVE SKIN EXAM: Gross erythema to the axilla and apron of the abdomen suggestive of intertrigo. Course Vital Signs: Vital signs: Vital Signs Temperature 97.8 F 10/21/22 17:33 Pulse Rate 107 H 10/21/22 18:45 Respiratory Rate 15 10/21/22 18:45 Blood Pressure 114/65 10/21/22 18:45 Pulse Oximetry 94 10/21/22 18:45 Oxygen Delivery Me thod 10/21/22 17:33 MDM - Extremity Injury (Lower) Medical Decision Making Differential diagnoses includes pneumonia, CHF, cellulitis, ankle fracture, intertrigo. 57-year-old male patient comes in today for multiple complaints. Patient has some significant erythema and tenderness to the right axilla. Patient was started on nystatin powder for a yeast rash but it has worsened more to the right than the left with increasing drainage and tenderness. Patient also reports increasing swelling generalized with more scrotal and penile edema. Lungs are decreased. Chest x-ray noted increased edema of the lungs and cardiomegaly. Patient was also concerned about a ankle injury on the left side. X-ray of the ankle showed no fracture. Reviewed patient with Dr. Aldana who agreed with plan for admission. Patient needs admission for control of CHF and management of cellulitis. Discussed with hospitalist Dr. Orellana who accepted patient for admission. Lab Data 10/21/22 18:17 10/21/22 18:17 Radiology Impressions Ankle X-Ray 10/21/22 17:41 IMPRESSION: 1. Negative for fracture or dislocation 2. Calcified heel spur. 3. Scattered vascular calcifications. 4. Second metatarsal proximal metaphyseal fracture suspected, likely chronic. Chest X-Ray 10/21/22 17:41 IMPRESSION: Cardiomegaly and pulmonary vascular congestion. Laboratory Results WBC 7.6 10^3/uL (4.0-10.0) 10/21/22 18:17 RBC 3.02 10^6/uL (4.1-5.3) L 10/21/22 18:17 Hgb 11.7 g/dL (11.7-16.6) 10/21/22 18:17 Hct 35.5 % (42.0-52.0) L 10/21/22 18:17 MCV 117.5 fl (80-94) H 10/21/22 18:17 MCH 38.7 pg (28.0-34.0) H 10/21/22 18:17 MCHC 33.0 g/dL (30.0-36.0) 10/21/22 18:17 RDW 14.6 % (12.1-15.1) 10/21/22 18:17 Plt Count 135 10^3/cmm (130-400) 10/21/22 18:17 MPV 9.8 fL (7.4-10.4) 10/21/22 18:17 Neut % (Auto) 76.1 % 10/21/22 18:17 Lymph % (Auto) 7.7 % 10/21/22 18:17 [place] % (Auto) 12.2 % 10/21/22 18:17 Eos % (Auto) 3.0 % 10/21/22 18:17 Baso % (Auto) 0.5 % 10/21/22 18:17 Neut # (Auto) 5.80 10^3/uL (1.8-7.7) 10/21/22 18:17 Lymph # (Auto) 0.6 10^3/uL (0.8-4.8) L 10/21/22 18:17 [place] # (Auto) 0.9 10^3/uL (0.2-0.9) 10/21/22 18:17 Eos # (Auto) 0.2 10^3/uL (0.0-0.8) 10/21/22 18:17 Baso # (Auto) 0.0 10^3/uL (0.0-0.1) 10/21/22 18:17 Nucleated RBC % (auto) 0 % 10/21/22 18:17 Nucleated RBCs # 0.0 /100WBC 10/21/22 18:17 Sodium 129 mmol/L (136-145) L 10/21/22 18:17 Potassium 4.4 mmol/L (3.5-5.1) 10/21/22 18:17 Chloride 90 mmol/L (98-107) L 10/21/22 18:17 Carbon Dioxide 35 mmol/L (22-29) H 10/21/22 18:17 Anion Gap 8.4 (5-19) 10/21/22 18:17 BUN 18 mg/dL (6-20) 10/21/22 18:17 Creatinine 1.7 mg/dL (0.7-1.2) H 10/21/22 18:17 GFR Calculation 41.6 mL/min (90-130) L 10/21/22 18:17 Glucose 113 mg/dL (65-115) 10/21/22 18:17 Calculated Osmolality 271 mOsm/kg (285-295) L 10/21/22 18:17 Lactic Acid 2.0 mmol/L (0.5-2.2) 10/21/22 18:17 Calcium 8.1 mg/dL (8.5-10.5) L 10/21/22 18:17 Total Bilirubin 1.7 mg/dL (0.15-1.2) H 10/21/22 18:17 AST 19 U/L (0-40) 10/21/22 18:17 ALT 11 U/L (0-41) 10/21/22 18:17 Alkaline Phosphatase 129 U/L (40-130) 10/21/22 18:17 Troponin T Baseline 38 ng/L (0-15) H 10/21/22 18:17 C-Reactive Protein 39.5 mg/L (0.0-4.9) H 10/21/22 18:17 NT-Pro-B Natriuret Pep 1866 pg/mL (0-125) H 10/21/22 18:17 Total Protein 6.0 g/dL (6.6-8.7) L 10/21/22 18:17 Albumin 2.8 g/dL (3.5-5.2) L 10/21/22 18:17 Globulin 3.2 g/dL (1.3-4.6) 10/21/22 18:17 Discharge Plan Discharge Patient Disposition: Admitted As Inpatient Clinical Impression: Cellulitis of axilla, right CHF (congestive heart failure) Qualifiers: Heart failure type: unspecified Heart failure chronicity: chronic Qualified Code(s): I50.9 - Heart failure, unspecified Ankle injury Qualifiers: Encounter type: initial encounter Laterality: left Qualified Code(s): S99.912A - Unspecified injury of left ankle, initial encounter Condition: Stable Coding Level of Care Code ED Clinical Laboratory Scientist for Tay Rust
--- NOTE | 2022-10-21 17:41 | XRR_ITS ---
PROCEDURE INFORMATION: Exam: XR Chest Exam date and time: 10/21/2022 6:01 PM Age: 57 years old Clinical indication: Shortness of breath; Additional info: Fluid overload TECHNIQUE: Imaging protocol: Radiologic exam of the chest. Views: 1 view. COMPARISON: CR XR chest 1V portable [id number] 12/23/2021 7:32 PM FINDINGS: Lungs: Unremarkable. No consolidation. Pleural spaces: Unremarkable. No pleural effusion. No pneumothorax. Heart/Mediastinum: Cardiomegaly and pulmonary vascular congestion. Bones/joints: Unremarkable. XR/XR chest 1V portable [id number] IMPRESSION: Cardiomegaly and pulmonary vascular congestion.
--- NOTE | 2022-10-21 17:41 | XRR_ITS ---
PROCEDURE INFORMATION: Exam: XR Left Ankle Exam date and time: 10/21/2022 6:01 PM Age: 57 years old Clinical indication: Pain; Ankle; Left; Additional info: Injury TECHNIQUE: Imaging protocol: Radiologic exam of the Left ankle. Views: 3 or more views. COMPARISON: CR XR foot LT min 3V* [id number] 01/29/2022 12:02 PM FINDINGS: Bones/joints: Calcified heel spur. Second metatarsal proximal metaphyseal fracture suspected, likely chronic. Soft tissues: Normal. Vasculature: Scattered vascular calcifications. XR/XR ankle LT min 3V* [id number] IMPRESSION: 1. Negative for fracture or dislocation 2. Calcified heel spur. 3. Scattered vascular calcifications. 4. Second metatarsal proximal metaphyseal fracture suspected, likely chronic.
--- NOTE | 2022-10-21 17:42 | ECG_ITS ---
[facility] Test Date: 2022-10-21 Pat Name: Yosvany Soto Department: Room: Gender: Male Glove Printer: : [id number] Requested By: Kirit Campbell Order Number: [id number] Mohamud MD: Binta Pitt M.D. Measurements Intervals [place] Rate: 93 P: 0 TX: 0 QRS: 93 QRSD: 82 T: 56 QT: 354 QTc: 442 Interpretive Statements ATRIAL FIBRILLATION BORDERLINE RIGHT AXIS DEVIATION [QRS AXIS > 90] LOW QRS VOLTAGE IN PRECORDIAL LEADS [QRS DEFLECTION < 1.0 mV IN CHEST LEADS] POSSIBLE RIGHT VENTRICULAR CONDUCTION DELAY [RSR (QR) IN V1/V2] ANTEROSEPTAL MYOCARDIAL INFARCTION , PROBABLY OLD [40+ ms Q WAVE IN V1-V4] Compared to ECG 12/23/2021 19:55:09 Low QRS voltage now present Incomplete right bundle-branch block no longer present Atrial abnormality no longer present Myocardial infarct finding still present Electronically Signed On 10-21-2022 19:57:38 FORENSIC ECONOMIST by Binta Pitt M.D. [email or web address]
[2022-10-21 18:33] LABS: Basophils % 0.5 %; Eosinophils # 0.2 10^3/uL (0.0-0.8); Hematocrit 35.5 % (42.0-52.0); Hemoglobin 11.7 g/dL (11.7-16.6); Lymphocytes # 0.6 10^3/uL (0.8-4.8); Lymphocytes % 7.7 %; Mean Corpuscular Hemoglobin 38.7 pg (28.0-34.0); Mean Corpuscular Volume 117.5 fl (80-94); Mean Platelet Volume 9.8 fL (7.4-10.4); Monocytes # 0.9 10^3/uL (0.2-0.9); Monocytes % 12.2 %; Neutrophils % 76.1 %; Nucleated Red Blood Cells % 0 %; Platelet Count 135 10^3/cmm (130-400); Red Blood Count 3.02 10^6/uL (4.1-5.3); Red Cell Distribution Width 14.6 % (12.1-15.1); White Blood Count 7.6 10^3/uL (4.0-10.0)
[2022-10-21 19:04] LABS: Troponin(5th) Baseline 38 ng/L (0-15)
[2022-10-21 19:12] LABS: Alanine Aminotransferase 11 U/L (0-41); Albumin Level 2.8 g/dL (3.5-5.2); Alkaline Phosphatase 129 U/L (40-130); Anion Gap 8.4 (5-19); Aspartate Amino Transferase 19 U/L (0-40); Blood Urea Nitrogen 18 mg/dL (6-20); C Reactive Protein 39.5 mg/L (0.0-4.9); Calcium 8.1 mg/dL (8.5-10.5); Carbon Dioxide 35 mmol/L (22-29); Chloride 90 mmol/L (98-107); Globulin 3.2 g/dL (1.3-4.6); Glomerular Filtration Rate 41.6 mL/min (90-130); Glucose 113 mg/dL (65-115); NT Pro B Type Natriuretic Pept 1866 pg/mL (0-125); Osmolality Calculated 271 mOsm/kg (285-295); Potassium 4.4 mmol/L (3.5-5.1); Sodium 129 mmol/L (136-145); Total Bilirubin 1.7 mg/dL (0.15-1.2)
[2022-10-21] MEDS: FUROsemide 10 mg/mL SDV 10mL 80 MG IVP (19:40)
--- NOTE | 2022-10-21 20:53 | PC.NURSE ---
Addendum entered by Mohinder Luna RN 10/21/22 20:54: ANA ROSA Irwin notified Original Note: Unable to place merlos catheter in patient d/t severe testicular swelling. Pt able to urinate in urinal with 1 person assistance.
--- NOTE | 2022-10-21 21:00 | P.HP_ITS ---
Providers/Chief Complaint Admitting Physician: Edita Orellana MD Primary Care Provider: Yosvany Segovia MD Chief Complaint: LEFT ANKLE PAIN/ 2 DAYS AGO History of Present Illness Yosvany Soto is a 57 year old male with past medical history of chronic systolic congestive heart failure, chronic hyponatremia, liver cirrhosis due to alcohol use, end-stage liver disease, CKD, generalized anasarca, history of hepatorenal syndrome, seizures, peripheral vascular disease, atrial fibr illation, C. difficile diarrhea, Charcot's arthropathy, esophageal varices presented to the hospital today with complaint of increased generalized edema, left ankle injury and a rash in axillary area. He states on Friday he stepped wrong on his ankle and felt a pop and continued to have pain and discomfort. He sees Dr. Carrera for Charcot's arthropathy and patient's main concern was that me have fractured his ankle. He also has increasing generalized edema including edema to groin area. Patient also has rashes in both axillas and groin area between skin folds. He states he has been taking nystatin powder but there has been no improvement. Otherwise denies nausea vomiting diarrhea at this time. Denies any chest pain. Denies shortness of breath On arrival blood denies pressure 114/65 pulse rate 15, pulse 107, temperature 97.8. Chest x-ray showed cardiomegaly and pulmonary vascular congestion. X-ray of ankle was done which did not show any fracture at this time. There is a calcified heel spur present. Second metatarsal proximal metaphyseal fracture suspected likely chronic. Patient states he is to have home health in the past however they have dropped services stating that he needs higher level of care. He also has considered going to a penitentiary may be for short-term however is unsure. Labs show sodium 129, potassium 4.4, BUN 18, creatinine 1.7. Typically cre atinine is in the 2.2 range it is lower today. Lactic acid 2.0. C-reactive protein 39.5, baseline troponin 38. BNP 1866. Medications/Allergies Home Medications Medication Instructions Recorded Confirmed Last Taken Type vitamin B complex (B 1 tab PO DAILY@16 01/04/20 09/25/22 10/19/21 History Complex-Vitamin B12 tablet) tramadol 50 mg tablet 100 mg PO DAILY PRN Pain 05/05/20 09/25/22 07/09/21 History folic acid 1 mg tablet 1 mg PO DAILY@10 08/23/20 09/25/22 10/19/21 History Barrow boot #1 ea 09/01/20 09/25/22 Unknown Rx fluticasone propionate 50 1 - 2 spray intranasal DAILY PRN 09/08/20 09/25/22 07/09/21 History mcg/actuation nasal Allergy Symptoms spray,suspension albuterol sulfate 90 mcg/actuation 2 puff inhalation Q4H PRN 12/11/20 09/25/22 07/09/21 History aerosol inhaler shortness of breath/wheezing vitamins A,C,U-hqbo-klfqdt 14,320 1 cap PO DAILY 02/11/21 09/25/22 10/19/21 History unit-226 mg-200 unit capsule (PreserVision AREDS) Barrow Boot to the left and an #1 ea 03/23/21 09/25/22 Unknown Rx even-up applied to the right foot diltiazem HCl 120 mg 120 mg PO QAM 04/24/21 09/25/22 10/19/21 History capsule,extended release 24 hr (Cartia XT) cetirizine 10 mg tablet (Zyrtec) 10 mg PO DAILY 05/24/21 09/25/22 07/09/21 History levothyroxine 50 mcg tablet 50 mcg PO QAM 08/15/21 09/25/22 10/19/21 History rifaximin 550 mg tablet (Xifaxan) 550 mg PO BID 08/15/21 09/25/22 10/19/21 History midodrine 5 mg tablet 5 mg PO TID 09/01/21 09/25/22 10/19/21 History pantoprazole 40 mg tablet,delayed 40 mg PO DAILY 09/01/21 09/25/22 10/19/21 History release potassium chloride 20 mEq 20 meq PO BID 09/01/21 09/25/22 10/19/21 History tablet,extended release gabapentin 100 mg capsule 100 mg PO TID 10/20/21 09/25/22 10/20/21 History bumetanide 1 mg tablet 1 mg PO BID #120 tabs 10/26/21 09/25/22 Unknown Rx spironolactone 50 mg tablet 50 mg PO DAILY #0 tabs 11/17/21 09/25/22 10/19/21 Rx thiamine HCl (vitamin B1) 50 mg 50 mg PO DAILY 11/29/21 09/25/22 Unknown History tablet ferrous sulfate 325 mg (65 mg 325 mg PO DAILY 12/24/21 09/25/22 Unknown History iron) tablet (iron) levetiracetam 500 mg tablet 1,000 mg PO BID 12/24/21 09/25/22 Unknown History lactulose 10 gram/15 mL oral 30 ml PO BID 30 days #0 mL 12/25/21 09/25/22 Unknown Rx solution Diabetic Shoe of RT foot #1 ea 01/29/22 09/25/22 Unknown Rx Repairs and Adjustments to #1 ea 02/07/22 09/25/22 Unknown Rx brace/boot Barrow Boot to left #1 ea 03/22/22 09/25/22 Unknown Rx alfuzosin 10 mg tablet,extended 10 mg PO DAILY #30 tabs 03/27/22 09/25/22 Unknown Rx release 24 hr Allergies Allergy/AdvReac Type Severity Reaction Status Date / Time Penicillins Allergy ALGY-Difficulty Verified 09/25/22 14:03 Breathing Sulfa (Sulfonamide Allergy Unknown Verified 09/25/22 14:03 Antibiotics) PFSH Acute PFSH: Medical History (Updated 10/22/22 @ 01:19 by Edita Orellana MD) A-fib Acute dyspnea Acute encephalopathy Acute hepatic encephalopathy Acute hypokalemia Acute hyponatremia Acute kidney injury superimposed on chronic kidney disease SAMI (acute kidney injury) Alcoholic cirrhosis of liver with ascites Anasarca Anasarca Anemia Ascites Ascites due to alcoholic cirrhosis Ataxia Atrial fibrillation and flutter Echocardiogram done in 2019 shows an EF of 40 to 45% with hypokinetic septum, anteroseptum and inferior wall, biatrial enlargement Atrial fibrillation with RVR BPH loc w urin obs/LUTS C. difficile diarrhea Charcot's arthropathy Charcot's joint of left foot Chest pain Pleuritic chest pain: Resolved; CHF (congestive heart failure) CHF (congestive heart failure), NYHA class III Chronic hyponatremia Chronic hyponatremia Decompensation of cirrhosis of liver Dyspnea on exertion Encephalopathy, hepatic End-stage liver disease Erectile dysfunction ETOH abuse Ex-smoker Fracture of fourth metatarsal bone of left foot Fracture of second metatarsal bone of left foot Fracture of third metatarsal bone of left foot Hepatorenal syndrome History of abdominal paracentesis Hx of esophageal varices Hyperkalemia Hyponatremia Hyponatremia Hyponatremia with excess extracellular fluid volume Laceration of left foot Neuropathy Non-pressure chronic ulcer of other part of left foot limited to breakdown of skin Occult blood in stools Peritoneal dialysis catheter in situ Peyronie disease Pleural effusion Pleural effusion associated with hepatic disorder Pneumonia PVD (peripheral vascular disease) Seizure Stereotyped movements Upper gastrointestinal hemorrhage due to gastritis Surgical History H/O colonoscopy 10-12 yrs H/O esophagogastroduodenoscopy History of tonsillectomy Hx of umbilical hernia repair Hx of vasectomy Status post surgery (07/05/20) peritoneal catheter for ascites Family History Grandfather CAD (coronary artery disease) Grandmother CAD (coronary artery disease) Cancer Father Cancer Denies family history of Anesthesia complication Bleeding disorder Social History Smoking and tobacco status: current some day smoker Quit status (tobacco): has quit using tobacco Year quit tobacco: 2014 less than a [id number] Second hand smoke exposure: No Smoking risk assessment/counseling performed?: Yes Alcohol intake: former Adopted: No Caregiver/support person: Yes Lives independently: Yes Household members: children Marital status: Current occupational status: disabled Pets and animals: Yes History of recent travel: No Current gender identity: Male Vitals/I&O/Wt Last Vital Signs Temp 97.8 F 10/21/22 17:33 Pulse 107 H 10/21/22 18:45 Resp 15 10/21/22 18:45 BP 114/65 10/21/22 18:45 Pulse Ox 94 10/21/22 18:45 O2 Del Method 10/21/22 17:33 Weight last 48 hrs Weight 181.437 kg Physical Exam Narrative: General: Alert oriented x3, patient seen laying in bed appearing comfortable. Morbidly obese. Generalized anasarca present. HEENT: Normocephalic, atraumatic, EOMI, breathing on room air. Cardio: Regular rate rhythm, normal S1-S2, muffled heart sounds due to body habitus. Respiratory: Clear to auscultation b/l GI: Abdomen soft, nontender, nondistended, bowel sounds + Scrotal edema present Behavior: Appropriate and cooperative Extremities: Generalized anasarca present. 3+ edema Skin: Erythema bilateral axilla area and between skin folds acute in groin areas. Draining wounds. Chronic wounds present.erythematous rash present b/l forearms, right side worse than left spider angiomata present, gynaecomastia present b/l Data 10/21/22 18:17 10/21/22 18:17 Micro: Microbiology 10/21/22 19:12 Blood Culture - Preliminary Blood SPECIMEN COLLECTED 10/21/22 19:15 Blood Culture - Preliminary Blood SPECIMEN COLLECTED A&P Assessment and plan (1) CHF (congestive heart failure): Qualifiers: Heart failure chronicity: chronic Heart failure type: unspecified Qualified Code(s): I50.9 - Heart failure, unspecified (2) Cellulitis of axilla, right: (3) Ankle injury: Qualifiers: Encounter type: initial encounter Laterality: left Qualified Code(s): S99.912A - Unspecified injury of left ankle, initial encounter (4) PVD (peripheral vascular disease): Plan #Generalized anasarca #Cellulitis, intertrigo axilla and groin areas #Acute on Chronic heart failure with reduced ejection fraction #Alcoholic liver cirrhosis #History of alcohol abuse #History of esophageal varices #History of hypertension #Chronic axillary wounds present #CKD. Creatinine seems to be at baseline -States he is on Bumex 1 mg twice daily at home however does not seem is working really well. - He has stopped taking his lactulose because he says he is unable to clean himself properly and requires help. Lactulose causes him to have diarrhea. - He last saw his bus analyst 1 year ago and was not recommended for liver transplant. He was deemed not to be a candidate for it at the time. ? For now we will continue lactulose, levothyroxine, midodrine, rifaximin, thiamine, folate. -BNP 1861. ? We will start on Bumex 1 mg IV bid ? Place Weir catheter for accurate input and output. ? Obtain abdominal ultrasound to evaluate for ascites. Due to patient's body habitus it is difficult to examine for fluid wave. -Check echocardiogram. ? Check ammonia ? Check TSH, free T4, B12, folate levels ? Sodium 129. Most likely due to volume overload and liver cirrhosis. We will check a urine sodium. ? 2-hour and 6-hour troponin pending at this time. Initial baseline troponin 38. - Continue to wrap LE's with compression wraps. ? Total bilirubin is 1.7. Elevated. Check CT abdomen pelvis ? Check PT/INR -Interdry sheets for skin folds axilla, groin pannus area - Nystatin powder ordered for folds - Vancomycin IV daily - Case management referral - PT Full code DVT prophylaxis: SCDs Attestations Medical Necessity Statement*: > 2 midnight stay for mgmt of anasarca and cellulitis Coding Level of Care Code Acute Code for Chg Fwd Diagnoses CHF (congestive heart failure) I50.9 Heart failure chronicity: chronic Heart failure type: unspecified Cellulitis of axilla, right L03.111 Ankle injury S99.912A Encounter type: initial encounter Laterality: left PVD (peripheral vascular disease) I73.9
[2022-10-21 22:36] LABS: Troponin 5 2HR 33.07 ng/L (0-15)
[2022-10-21] MEDS: heparin 5,000 unit/mL INJ 1 mL 5000 UNIT SUBCUT (23:27)
--- NOTE | 2022-10-21 23:30 | PC.PHAR ---
Pharmacokinetic dosing service Date: 10/21/22 Time: 2329 Objective: Patient: Yosvany Soto Floor: 256-2 Age: 57 yo Serum creatinine: 1.7 mg/dL Height: 72.0 Inches Weight (kg): 181.437 Diagnosis: Relevant medical/social history: Cultures and sensitivities: Other labs: Assessment: IBW (kg): 77.60 Dosing wt(kg): 119.1 Estimated Creatinine clearance (ml/min): 52.0 CRCL method: Cockcroft and Gault using ibw(default). Drug selected: Vancomycin Loading dose (mg): 0 Vd (liters): 107.2 (factor used: 0.9 L/kg) [place] (hr-1): 0.048 Half life (hrs): 14.44 Recommended dose: 1500 mg Interval: 12 hrs Infusion time (hrs): 1.5 Predicted peak (mcg/mL): 30.8 Predicted trough (mcg/mL): 18.61 Adjusted body weight was selected for vancomycin dosing. To switch back, select the total body weight option above. Renal function is stable [ ] /unstable [ ] Recommendations: Give Vancomycin 1500 mg q 12 hrs with an expected Cpeak of 30.8 mcg/ml and an expected Ctrough of 18.61 mcg/ml Renal dosing of other antibiotics (review renal dosing of other medications and list guidelines here): Thank you for the consult, will continue to follow. Signature: Arianna Craven [facility]
--- NOTE | 2022-10-21 23:42 | ECG_ITS ---
[facility] Test Date: 2022-10-22 Pat Name: Yosvany Soto Department: Room: 256 Gender: Male [employer] Worker: : 1965 Requested By: Kirit Campbell Order Number: [id number] Cade MD: Compa Escamilla M.D. Measurements Intervals [place] Rate: 88 P: 0 MA: 0 QRS: 99 QRSD: 82 T: 54 QT: 362 QTc: 438 Interpretive Statements ATRIAL FIBRILLATION WITH ABERRANT CONDUCTION OR VENTRICULAR PREMATURE COMPLEXES BORDERLINE RIGHT AXIS DEVIATION [QRS AXIS > 90] LOW QRS VOLTAGE IN PRECORDIAL LEADS [QRS DEFLECTION < 1.0 mV IN CHEST LEADS] ANTEROSEPTAL MYOCARDIAL INFARCTION , PROBABLY OLD [40+ ms Q WAVE IN V1-V4] Compared to ECG 10/21/2022 18:17:12 Ventricular premature complex(es) now present Aberrant conduction of supraventricular beat(s) now present Myocardial infarct finding still present Electronically Signed On 10-22-2022 7:09:20 PRINT PRODUCTION COORDINATOR by Compa Escamilla M.D. [email or web address]
[2022-10-22] VITALS (8 sets, daily range): BP systolic 107–125; BP diastolic 62–73; PULSE 85–105; RESP 15–19; TEMP 36.6–36.8; O2SAT 90–95
[2022-10-22] MEDS: vancomycin 1,500 MG/300 ML PIGGYBACK 200 MG IV ×2 (01:00→12:47)
--- NOTE | 2022-10-22 01:23 | CTR_ITS ---
PROCEDURE INFORMATION: Exam: CT Abdomen And Pelvis Without Contrast Exam date and time: 10/22/2022 4:10 AM Age: 57 years old Clinical indication: Prior surgery; Surgery type: Hernia repair. Vasectomy. Patient HX: Elevated bilirubin. History of esophageal varices and end stage liver disease. ; Additional info: Bilirubin elevated, liver disease, ascites? TECHNIQUE: Imaging protocol: Computed tomography of the abdomen and pelvis without contrast. Radiation optimization: All CT scans at this facility use at least one of these dose optimization techniques: automated exposure control; mA and/or kV adjustment per patient size (includes targeted exams where dose is matched to clinical indication); or iterative reconstruction. Other protocol: This patient has received 2 known CTs and 0 known cardiac nuclear medicine studies in the 12 months prior to the current study. COMPARISON: CT abdomen pelvis wo con [id number] 09/01/2021 6:29 PM RADIATION DOSE METRICS: Total DLP (mGy-cm): 1417.93 FINDINGS: Tubes, catheters and devices: Weir catheter present. Lungs: The visualized lung bases are clear. Heart: The heart is upper limits normal size. Liver: Severe cirrhosis. Gallbladder and bile ducts: No calcified gallstones or biliary dilation identified. Pancreas: Unremarkable with no suspicious mass. No ductal dilation. Spleen: [id number] splenomegaly. Adrenal glands: Normal. No mass. Kidneys and ureters: No solid renal mass or hydronephrosis. Stomach and bowel: Moderate sigmoid diverticulosis. No small bowel obstruction, abscess or free air. A few areas of equivocal bowel wall thickening are probably due to mural edema in the setting of 3rd spacing of fluid or hypoalbuminemia. Appendix: No evidence of appendicitis. Intraperitoneal space: Only trace perihepatic fluid. No significant ascites. Vasculature: Very small hiatal hernia present with periesophageal uphill varices. The umbilical vein is recanalized. Advanced diffuse vascular calcification noted. Lymph nodes: Scattered small likely reactive mesenteric and retroperitoneal lymph nodes. Urinary bladder: Unremarkable as visualized. Reproductive: Unremarkable as visualized. Bones/joints: Severe L4-S1 DDD with facet arthropathy. Soft tissues: Diffuse advanced anasarca. CT/CT abdomen pelvis wo con [id number] IMPRESSION: 1. The findings have improved mildly from 09/01/2021. 2. Severe cirrhosis again seen with clear evidence of portal hypertension. Multiple varices are seen including esophageal varices. This patient is at increased risk for a variceal bleed. 3. No significant ascites. 4. Fecal filled colon, splenomegaly, and other chronic findings above.
[2022-10-22] MEDS: levothyroxine 50 mcg Tablet PO (05:39)
[2022-10-22] MEDS: dilTIAZem ER (24HR) 120 mg Capsule PO (05:39)
[2022-10-22 06:08] LABS: Basophils % 0.6 %; Eosinophils # 0.3 10^3/uL (0.0-0.8); Hematocrit 33.6 % (42.0-52.0); Hemoglobin 11.4 g/dL (11.7-16.6); Lymphocytes # 0.8 10^3/uL (0.8-4.8); Lymphocytes % 11.6 %; Mean Corpuscular HGB Conc 33.9 g/dL (30.0-36.0); Mean Corpuscular Hemoglobin 39.7 pg (28.0-34.0); Mean Corpuscular Volume 117.1 fl (80-94); Mean Platelet Volume 9.7 fL (7.4-10.4); Monocytes # 0.8 10^3/uL (0.2-0.9); Monocytes % 12.7 %; Neutrophils # 4.55 10^3/uL (1.8-7.7); Neutrophils % 69.6 %; Nucleated Red Blood Cells % 0 %; Platelet Count 120 10^3/cmm (130-400); Red Blood Count 2.87 10^6/uL (4.1-5.3); Red Cell Distribution Width 14.6 % (12.1-15.1); White Blood Count 6.5 10^3/uL (4.0-10.0)
[2022-10-22 06:32] LABS: Alanine Aminotransferase 11 U/L (0-41); Albumin Level 2.7 g/dL (3.5-5.2); Alkaline Phosphatase 114 U/L (40-130); Aspartate Amino Transferase 20 U/L (0-40); Blood Urea Nitrogen 18 mg/dL (6-20); Carbon Dioxide 34 mmol/L (22-29); Chloride 94 mmol/L (98-107); Glomerular Filtration Rate 48.1 mL/min (90-130); Glucose 95 mg/dL (65-115); Magnesium 1.8 mg/dL (1.7-2.3); Osmolality Calculated 280 mOsm/kg (285-295); Sodium 134 mmol/L (136-145); Total Bilirubin 1.7 mg/dL (0.15-1.2); Total Protein 5.7 g/dL (6.6-8.7)
[2022-10-22 06:33] LABS: Troponin 5 6HR 37.87 ng/L (0-15)
[2022-10-22 06:34] LABS: Anion Gap 10.2 (5-19); Potassium 4.2 mmol/L (3.5-5.1)
[2022-10-22 06:38] LABS: Troponin 5 6HR Delta -0.13 ng/L (0-12)
[2022-10-22] MEDS: levETIRAcetam 500 mg Tablet 1000 MG PO ×2 (10:25→19:13)
[2022-10-22] MEDS: bumetanide 0.25 mg/mL SDV 4 mL 1 MG IVP (10:25)
[2022-10-22] MEDS: heparin 5,000 unit/mL INJ 1 mL 5000 UNIT SUBCUT ×2 (10:26→22:26)
[2022-10-22] MEDS: thiamine 100 mg Tablet 50 MG PO (10:26)
[2022-10-22] MEDS: midodrine 5 mg TABLET PO ×3 (10:27→21:26)
[2022-10-22] MEDS: ferrous sulfate EC 325 mg Tablet PO (10:27)
[2022-10-22] MEDS: pantoprazole DR 40 mg Tablet PO (10:27)
[2022-10-22] MEDS: lactulose oral liq 20 gm/30 mL UDC PO ×2 (10:27→19:14)
[2022-10-22] MEDS: folic acid 1 mg Tablet PO (10:27)
[2022-10-22] MEDS: nystatin powder 15 gm Btl 1 APPLIC TOPICAL ×2 (10:28→19:14)
--- NOTE | 2022-10-22 15:19 | PC.NURSE ---
Notified Dr. Goodson patient would like some flonase and breathing treatments and maybe mucinex.
--- NOTE | 2022-10-22 21:14 | PM.PN ---
Subjective Subjective: States he is doing very well. Has had quite a bit of edema. He does get up to get around at home he states about poorly even with a walker. Vitals/I&O/Wt Last Vital Signs Temp 98.0 F 10/22/22 16:00 Pulse 85 10/22/22 16:00 Resp 17 10/22/22 16:00 BP 116/71 10/22/22 16:00 Pulse Ox 92 10/22/22 16:00 O2 Del Method 10/22/22 16:00 10/22/22 10/22/22 10/22/22 06:59 14:59 22:59 Intake Total 300 / 300 960 / 960 660 / 1620 Output Total 1350 / 1350 Balance -1050 / -1050 960 / 960 660 / 1620 Weight last 48 hrs Weight 181.437 kg Physical Exam Const: COMMON NORMALS: patient oriented x3 and alert GENERAL APPEARANCE: cooperative NUTRITIONAL APPEARANCE: obese ORIENTATION/CONSCIOUSNESS: Yes awake HENMT: COMMON NORMALS: oropharynx normal Neck/C-Spine: COMMON NORMALS: no JVD Resp: COMMON NORMALS: normal respiratory effort and clear to auscultation bilaterally AUSCULTATION: clear to auscultation bilaterally Cardio: COMMON NORMALS: no JVD, regular rhythm, S1 normal heart sound present, S2 normal heart sound present and No murmurs present (Cardio) RHYTHM: regular rhythm HEART SOUNDS: S1 normal heart sound present and S2 normal heart sound present GI: COMMON NORMALS: Normal to inspection, nondistended, normoactive bowel sounds present, Soft to palpation and non-tender PALPATION: Yes Soft to palpation Extremity: COMMON NORMALS: no joint enlargement GENERAL: Yes edema (Anasarca of bilateral lower extremities, but also abdomen, lower chest arms) Neuro: COMMON NORMALS: patient oriented x3 and moves all extremities SENSORIUM/ORIENTATION: Yes alert Skin: COMMON NORMALS: no rashes or lesions noted NARRATIVE SKIN EXAM: Severe cellulitis, extensive of bilateral arms and armpits and proximal chest areas, as well as under pannus, groin bilaterally. Erythema, warmth. Exudative drainage. GENERAL SKIN EXAM: no rashes or lesions noted Urinary Catheter Management: Weir: Cath Placed During This Visit: yes Reason for Continuing Indwelling Catheter: Other Urinary Catheter Date of Insertion: 10/21/22 Urinary Catheter Time of Insertion: 23:50 Data 10/22/22 05:23 10/22/22 05:23 Micro: Microbiology 10/21/22 19:12 Blood Culture - Preliminary Blood NEGATIVE TO DATE 10/21/22 19:15 Blood Culture - Preliminary Blood NEGATIVE TO DATE A&P Assessment and plan (1) CHF (congestive heart failure): H&P note reviewed. YONATHAN reviewed. Unclear if charted correctly, but appears to be in positive balance. We will request daily weights to be measured. Acute CHF exacerbation, type unknown, suspected likely systolic with previously decreased ejection fraction. Escalate Bumex dose to 2 mg IV twice daily. With CKD reassess renal function, chemistry requested. Weir for accurate YONATHAN. Follow-up pending echocardiogram. Qualifiers: Heart failure chronicity: chronic Heart failure type: unspecified Qualified Code(s): I50.9 - Heart failure, unspecified (2) Cellulitis of axilla, right: Continue diuresis as above. He has been started on vancomycin, nystatin, continue. Follow-up renal function chemistry requested. Continue Interdry sheets (3) Ankle injury: Qualifiers: Encounter type: initial encounter Laterality: left Qualified Code(s): S99.912A - Unspecified injury of left ankle, initial encounter (4) PVD (peripheral vascular disease): Plan Hyponatremia: Sodium with improvement up to 134. Likely hypovolemic. Requested repeat chemistry. Hyperbilirubinemia: Resolved appreciated. Reviewed CT, gallbladder and bile ducts without calcified gallstones or biliary dilation identified. Follow-up peripheral parameters requested. #Generalized anasarca: Diuresis as above. Continue lower extremity compression wraps. #Cellulitis, intertrigo axilla and groin areas #Acute on Chronic heart failure with reduced ejection fraction #Alcoholic liver cirrhosis: Reviewed CT. No significant ascites. Severe cirrhosis. At risk of variceal bleed. Continue lactulose. #History of alcohol abuse #History of esophageal varices #History of hypertension #Chronic axillary wounds present #CKD. Creatinine seems to be at baseline -States he is on Bumex 1 mg twice daily at home however does not seem is working really well. - He has stopped taking his lactulose because he says he is unable to clean himself properly and requires help. Lactulose causes him to have diarrhea. - He last saw his short order cook 1 year ago and was not recommended for liver transplant. He was deemed not to be a candidate for it at the time. - Case management referral - PT Attestations Medical Necessity Statement*: Continue admission for assessment and management of CHF anasarca, extensive cellulitis. Coding Level of Care Code 01078 Moderate MDM includes risk/complexity, reviewing previous or external records, reviewing test results and ordering lab/other test(s) Diagnoses CHF (congestive heart failure) I50.9 Heart failure chronicity: chronic Heart failure type: unspecified Cellulitis of axilla, right L03.111 Ankle injury S99.912A Encounter type: initial encounter Laterality: left PVD (peripheral vascular disease) I73.9
[2022-10-22] MEDS: bumetanide 0.25 mg/mL SDV 4 mL 2 MG IVP (22:18)
--- NOTE | 2022-10-22 22:39 | USCV_ITS ---
Yosvany Soto Age: 57 Gender: M : 1965 Exam Date: 10/22/2022 14:03 Ordering Phys: Edita Orellana MD Technologist: Mandeep Arroyo Exam Location: [facility] [place] Indication: chf morbid obestity BP: / HR: Rhythm: Sinus Technical Quality: Very technically difficult study MEASUREMENTS (Male / Female) Normal Values FINDINGS Left Ventricle Right Ventricle Right Atrium Left Atrium Mitral Valve Aortic Valve Tricuspid Valve Pulmonic Valve Pericardium Aorta IVC CONCLUSIONS no windows contrast will not work Could not identify any cardiac structure Consider ANDRA, if clinically indicated Dr Odin Eddy MD FACC (Electronically Signed) Final Date: 25 October 2022 16:40 S
[2022-10-22] MEDS: vancomycin 1,500 MG/300 ML PIGGYBACK 250 MG IV (23:38)
[2022-10-23] VITALS (10 sets, daily range): BP systolic 110–135; BP diastolic 48–80; PULSE 79–114; RESP 16–18; TEMP 36.5–37.2; O2SAT 90–96
[2022-10-23] MEDS: dilTIAZem ER (24HR) 120 mg Capsule PO (05:03)
[2022-10-23] MEDS: bumetanide 0.25 mg/mL SDV 4 mL 2 MG IVP ×2 (05:04→15:44)
[2022-10-23] MEDS: levothyroxine 50 mcg Tablet PO (05:04)
[2022-10-23 05:42] LABS: Basophils % 0.6 %; Eosinophils # 0.3 10^3/uL (0.0-0.8); Eosinophils % 5.2 %; Hematocrit 32.7 % (42.0-52.0); Hemoglobin 10.8 g/dL (11.7-16.6); Lymphocytes % 14.7 %; Mean Corpuscular Hemoglobin 38.4 pg (28.0-34.0); Mean Corpuscular Volume 116.4 fl (80-94); Mean Platelet Volume 9.6 fL (7.4-10.4); Monocytes # 0.9 10^3/uL (0.2-0.9); Neutrophils # 4.24 10^3/uL (1.8-7.7); Neutrophils % 64.7 %; Nucleated Red Blood Cells % 0 %; Platelet Count 141 10^3/cmm (130-400); Red Blood Count 2.81 10^6/uL (4.1-5.3); Red Cell Distribution Width 14.6 % (12.1-15.1); White Blood Count 6.6 10^3/uL (4.0-10.0)
[2022-10-23 06:09] LABS: Alanine Aminotransferase 11 U/L (0-41); Albumin Level 2.5 g/dL (3.5-5.2); Alkaline Phosphatase 109 U/L (40-130); Aspartate Amino Transferase 21 U/L (0-40); Blood Urea Nitrogen 19 mg/dL (6-20); Calcium 8.7 mg/dL (8.5-10.5); Carbon Dioxide 33 mmol/L (22-29); Chloride 95 mmol/L (98-107); Glomerular Filtration Rate 41.6 mL/min (90-130); Glucose 91 mg/dL (65-115); Osmolality Calculated 282 mOsm/kg (285-295); Sodium 135 mmol/L (136-145); Total Bilirubin 1.8 mg/dL (0.15-1.2); Total Protein 5.5 g/dL (6.6-8.7)
[2022-10-23 06:15] LABS: Anion Gap 11.2 (5-19); Potassium 4.2 mmol/L (3.5-5.1)
[2022-10-23] MEDS: midodrine 5 mg TABLET PO ×3 (08:32→21:50)
[2022-10-23] MEDS: nystatin powder 15 gm Btl 1 APPLIC TOPICAL (08:32)
[2022-10-23] MEDS: ferrous sulfate EC 325 mg Tablet PO (08:32)
[2022-10-23] MEDS: pantoprazole DR 40 mg Tablet PO (08:32)
[2022-10-23] MEDS: levETIRAcetam 500 mg Tablet 1000 MG PO ×2 (08:33→17:35)
[2022-10-23] MEDS: thiamine 100 mg Tablet 50 MG PO (08:33)
[2022-10-23] MEDS: lactulose oral liq 20 gm/30 mL UDC PO ×2 (08:34→17:35)
[2022-10-23 11:42] LABS: Vancomycin Trough 23.1 ug/mL (10-15)
[2022-10-23] MEDS: heparin 5,000 unit/mL INJ 1 mL 5000 UNIT SUBCUT ×2 (11:42→23:56)
[2022-10-23] MEDS: fluticasone nasal spray 16gm Btl 1 SPRAY NASAL (11:42)
[2022-10-23] MEDS: folic acid 1 mg Tablet PO (11:43)
[2022-10-23] MEDS: TRAMadol 50 mg Tablet 100 MG PO (11:43)
[2022-10-23] MEDS: albuterol 2.5 mg/3 mL Neb INHALATION (14:33)
[2022-10-23] MEDS: gabapentin 100 mg Capsule PO ×2 (15:43→21:50)
[2022-10-23] MEDS: vancomycin 1,500 MG/300 ML PIGGYBACK 200 MG IV (20:12)
--- NOTE | 2022-10-23 20:23 | PC.NURSE ---
This nurse assessed the pts IV site with another nurse at this time and cleaned and redressed the IV site. The patient tolerated this well and did not report any pain with the saline flush and reported that he could taste it as well. This nurse educated the pt to report any pain at the Iv site, the patient verbalized understanding.
--- NOTE | 2022-10-23 21:22 | PM.PN ---
Subjective Subjective: She is having quite a bit of weeping from edematous areas, especially in the right upper extremity. Denies chest pain or pressure. Denies trouble breathing. Vitals/I&O/Wt Last Vital Signs Temp 99.0 F 10/23/22 20:00 Pulse 99 10/23/22 20:00 Resp 18 10/23/22 20:00 BP 117/56 10/23/22 20:00 Pulse Ox 91 10/23/22 20:00 O2 Del Method 10/23/22 20:00 10/23/22 10/23/22 10/23/22 06:59 14:59 22:59 Intake Total 300 / 2880 960 / 960 480 / 1440 Output Total 950 / 950 1000 / 1000 Balance -650 / 1930 960 / 960 -520 / 440 Weight last 48 hrs Weight 201.905 kg Physical Exam Const: COMMON NORMALS: patient oriented x3 and alert GENERAL APPEARANCE: cooperative NUTRITIONAL APPEARANCE: obese ORIENTATION/CONSCIOUSNESS: Yes awake HENMT: COMMON NORMALS: oropharynx normal Neck/C-Spine: COMMON NORMALS: no JVD Resp: COMMON NORMALS: normal respiratory effort and clear to auscultation bilaterally AUSCULTATION: clear to auscultation bilaterally Cardio: COMMON NORMALS: no JVD, regular rhythm, S1 normal heart sound present, S2 normal heart sound present and No murmurs present (Cardio) RHYTHM: regular rhythm HEART SOUNDS: S1 normal heart sound present and S2 normal heart sound present GI: COMMON NORMALS: Normal to inspection, nondistended, normoactive bowel sounds present, Soft to palpation and non-tender PALPATION: Yes Soft to palpation Extremity: COMMON NORMALS: no joint enlargement GENERAL: Yes edema (Anasarca of bilateral lower extremities, but also abdomen, lower chest arms) Neuro: COMMON NORMALS: patient oriented x3 and moves all extremities SENSORIUM/ORIENTATION: Yes alert Skin: COMMON NORMALS: no rashes or lesions noted NARRATIVE SKIN EXAM: Slight improvement in intensity of erythema of arms, armpits, torso. Severe extensive cellulitis of bilateral arms and armpits and proximal chest areas, as well as under pannus, groin bilaterally. Erythema, warmth. Exudative drainage. GENERAL SKIN EXAM: no rashes or lesions noted Urinary Catheter Management: Weir: Cath Placed During This Visit: yes Reason for Continuing Indwelling Catheter: Other Urinary Catheter Date of Insertion: 10/21/22 Urinary Catheter Time of Insertion: 23:50 Data 10/23/22 05:27 10/23/22 05:27 Micro: Microbiology 10/21/22 19:12 Blood Culture - Preliminary Blood NEGATIVE TO DATE 10/21/22 19:15 Blood Culture - Preliminary Blood NEGATIVE TO DATE A&P Assessment and plan (1) CHF (congestive heart failure): Reviewed intake and output data. Despite increasing diuretics he is still in positive balance. Has a quite large oral intake about 3000 mL. Will add fluid restriction 1500 mL. Continue Bumex 2 mg IV twice daily. Additionally add metolazone before evening dose. Follow-up renal function requested. Reviewed this morning's renal function, creatinine appears steady at 1.7. Severe anasarca persists. H&P note reviewed. YONATHAN reviewed. Unclear if charted correctly, but appears to be in positive balance. Daily weights to be measured. Acute CHF exacerbation, type unknown, suspected likely systolic with previously decreased ejection fraction. Weir for accurate YONATHAN. Follow-up pending echocardiogram. Qualifiers: Heart failure chronicity: chronic Heart failure type: unspecified Qualified Code(s): I50.9 - Heart failure, unspecified (2) Cellulitis of axilla, right: Discussed with his nurse. Has quite a bit of maceration especially in the left armpit. Nystatin powder can contribute to an ulceration. Change to cream. Continue diuresis as above. Continue n vancomycin, nystatin. Follow-up renal function chemistry requested. Interval sheets were not working well, getting crumpled up and irritating him. Due to size of his folds changed to pillow cases instead. (3) Ankle injury: Qualifiers: Encounter type: initial encounter Laterality: left Qualified Code(s): S99.912A - Unspecified injury of left ankle, initial encounter (4) PVD (peripheral vascular disease): Plan Hyponatremia: Sodium level reviewed. Continues to improve. Follow-up requested. Likely hypervolemic. Hyperbilirubinemia: Resolved appreciated. Reviewed CT, gallbladder and bile ducts without calcified gallstones or biliary dilation identified. Follow-up liver parameters requested. #Generalized anasarca: Diuresis as above. Continue lower extremity compression wraps. #Cellulitis, intertrigo axilla and groin areas #Acute on Chronic heart failure with reduced ejection fraction #Alcoholic liver cirrhosis: Reviewed CT. No significant ascites. Severe cirrhosis. At risk of variceal bleed. Continue lactulose. #History of alcohol abuse #History of esophageal varices #History of hypertension #Chronic axillary wounds present #CKD. Creatinine seems to be at baseline -States he is on Bumex 1 mg twice daily at home however does not seem is working really well. - He has stopped taking his lactulose because he says he is unable to clean himself properly and requires help. Lactulose causes him to have diarrhea. - He last saw his screwhead stoner and polisher 1 year ago and was not recommended for liver transplant. He was deemed not to be a candidate for it at the time. - Case management referral - PT Attestations Medical Necessity Statement*: Continue admission for assessment management of CHF with anasarca, severe extensive cellulitis. Coding Level of Care Code 36344 High MDM includes risk/complexity, reviewing test results, ordering lab/other test(s) and discussion of management or test(s) w/ other healthcare professional Diagnoses CHF (congestive heart failure) I50.9 Heart failure chronicity: chronic Heart failure type: unspecified Cellulitis of axilla, right L03.111 Ankle injury S99.912A Encounter type: initial encounter Laterality: left PVD (peripheral vascular disease) I73.9
[2022-10-24] VITALS (12 sets, daily range): BP systolic 98–138; BP diastolic 58–76; PULSE 80–98; RESP 16–20; TEMP 36.4–37.2; O2SAT 90–96
[2022-10-24] MEDS: fluticasone nasal spray 16gm Btl 1 SPRAY NASAL (00:07)
--- NOTE | 2022-10-24 01:13 | PC.NURSE ---
This nurse helped ambulate the pt up to the bathroom and provided care by changing dressings on the right leg and right arm they were re wrapped in kerlex and abd pads.
[2022-10-24 05:22] LABS: Basophils % 0.6 %; Eosinophils # 0.3 10^3/uL (0.0-0.8); Eosinophils % 4.1 %; Hematocrit 32.1 % (42.0-52.0); Hemoglobin 10.9 g/dL (11.7-16.6); Lymphocytes # 0.9 10^3/uL (0.8-4.8); Lymphocytes % 13.8 %; Mean Corpuscular Hemoglobin 39.5 pg (28.0-34.0); Mean Corpuscular Volume 116.3 fl (80-94); Mean Platelet Volume 9.6 fL (7.4-10.4); Monocytes # 0.9 10^3/uL (0.2-0.9); Monocytes % 14.7 %; Neutrophils # 4.22 10^3/uL (1.8-7.7); Neutrophils % 66.2 %; Nucleated Red Blood Cells % 0 %; Platelet Count 144 10^3/cmm (130-400); Red Blood Count 2.76 10^6/uL (4.1-5.3); Red Cell Distribution Width 14.7 % (12.1-15.1); White Blood Count 6.4 10^3/uL (4.0-10.0)
[2022-10-24 05:48] LABS: Alanine Aminotransferase 10 U/L (0-41); Albumin Level 2.7 g/dL (3.5-5.2); Alkaline Phosphatase 99 U/L (40-130); Blood Urea Nitrogen 20 mg/dL (6-20); Carbon Dioxide 31 mmol/L (22-29); Chloride 93 mmol/L (98-107); Glomerular Filtration Rate 48.1 mL/min (90-130); Glucose 91 mg/dL (65-115); Osmolality Calculated 278 mOsm/kg (285-295); Sodium 133 mmol/L (136-145); Total Bilirubin 1.5 mg/dL (0.15-1.2); Total Protein 5.7 g/dL (6.6-8.7)
[2022-10-24 05:49] LABS: Anion Gap 13.1 (5-19); Aspartate Amino Transferase 24 U/L (0-40); Potassium 4.1 mmol/L (3.5-5.1)
[2022-10-24] MEDS: levothyroxine 50 mcg Tablet PO (05:55)
[2022-10-24] MEDS: dilTIAZem ER (24HR) 120 mg Capsule PO (05:55)
[2022-10-24] MEDS: bumetanide 0.25 mg/mL SDV 4 mL 2 MG IVP ×2 (05:56→17:30)
[2022-10-24] MEDS: ferrous sulfate EC 325 mg Tablet PO (10:17)
[2022-10-24] MEDS: gabapentin 100 mg Capsule PO ×3 (10:17→21:08)
[2022-10-24] MEDS: alfuzosin 10 mg ER Tablet PO (10:17)
[2022-10-24] MEDS: lactulose oral liq 20 gm/30 mL UDC PO ×2 (10:17→17:30)
[2022-10-24] MEDS: levETIRAcetam 500 mg Tablet 1000 MG PO ×2 (10:17→17:30)
[2022-10-24] MEDS: thiamine 100 mg Tablet 50 MG PO (10:18)
[2022-10-24] MEDS: pantoprazole DR 40 mg Tablet PO (10:18)
[2022-10-24] MEDS: midodrine 5 mg TABLET PO ×3 (10:18→21:08)
[2022-10-24] MEDS: heparin 5,000 unit/mL INJ 1 mL 5000 UNIT SUBCUT ×2 (10:26→23:09)
[2022-10-24] MEDS: folic acid 1 mg Tablet PO (10:26)
--- NOTE | 2022-10-24 12:12 | PC.SOCIAL ---
Pg 2 IMM Explained to pt Pg 2 IMM. No questions voiced. Provided pt a copy. Initialed, dated, & timed a copy & placed in chart.
[2022-10-24] MEDS: nystatin cream 30 gm 1 APPLIC TOPICAL ×2 (13:16→17:30)
[2022-10-24] MEDS: vancomycin 1,500 MG/300 ML PIGGYBACK 200 MG IV (15:46)
[2022-10-24] MEDS: metOLazone 5 MG Tablet PO (15:47)
--- NOTE | 2022-10-24 22:20 | PM.PN ---
Subjective Subjective: Still very edematous, still weeping, however, edema is gradually improving. Some slight improvement in erythema/cellulitis. Some decrease also in scrotal swelling. Vitals/I&O/Wt Last Vital Signs Temp 97.5 F L 10/24/22 16:00 Pulse 92 10/24/22 22:12 Resp 16 10/24/22 22:12 BP 103/61 10/24/22 16:00 Pulse Ox 95 10/24/22 22:12 O2 Del Method 10/24/22 22:12 10/24/22 10/24/22 10/24/22 06:59 14:59 22:59 Intake Total 240 / 240 170 / 410 Output Total 400 / 2200 2725 / 2725 Balance -400 / -460 240 / 240 -2555 / -2315 Weight last 48 hrs Weight 201.026 kg Weight 201.905 kg Physical Exam Const: COMMON NORMALS: patient oriented x3 and alert GENERAL APPEARANCE: cooperative NUTRITIONAL APPEARANCE: obese ORIENTATION/CONSCIOUSNESS: Yes awake HENMT: COMMON NORMALS: oropharynx normal Neck/C-Spine: COMMON NORMALS: no JVD Resp: COMMON NORMALS: normal respiratory effort and clear to auscultation bilaterally AUSCULTATION: clear to auscultation bilaterally Cardio: COMMON NORMALS: no JVD, regular rhythm, S1 normal heart sound present, S2 normal heart sound present and No murmurs present (Cardio) RHYTHM: regular rhythm HEART SOUNDS: S1 normal heart sound present and S2 normal heart sound present GI: COMMON NORMALS: Normal to inspection, nondistended, normoactive bowel sounds present, Soft to palpation and non-tender PALPATION: Yes Soft to palpation Extremity: COMMON NORMALS: no joint enlargement GENERAL: Yes edema (Anasarca of bilateral lower extremities, but also abdomen, lower chest arms) Neuro: COMMON NORMALS: patient oriented x3 and moves all extremities SENSORIUM/ORIENTATION: Yes alert Skin: COMMON NORMALS: no rashes or lesions noted NARRATIVE SKIN EXAM: Further mild improvement in intensity of erythema of arms, armpits, torso. Severe extensive cellulitis of bilateral arms and armpits and proximal chest areas, as well as under pannus, groin bilaterally. Erythema, warmth. Exudative drainage. Excoriations of left armpit. GENERAL SKIN EXAM: no rashes or lesions noted Urinary Catheter Management: Weir: Cath Placed During This Visit: yes Reason for Continuing Indwelling Catheter: Other Urinary Catheter Date of Insertion: 10/21/22 Urinary Catheter Time of Insertion: 23:50 Data 10/24/22 05:00 10/24/22 05:00 A&P Assessment and plan (1) CHF (congestive heart failure): Diuresing well now on review of intake and output. Continue current regimen including metolazone, however, will need close monitoring of renal function. Requested follow-up creatinine. Severe anasarca persists. H&P note reviewed. YONATHAN reviewed. Unclear if charted correctly, but appears to be in positive balance. Daily weights to be measured. Acute CHF exacerbation, type unknown, suspected likely systolic with previously decreased ejection fraction. Weir for accurate YONATHAN. Follow-up pending echocardiogram. Qualifiers: Heart failure chronicity: chronic Heart failure type: unspecified Qualified Code(s): I50.9 - Heart failure, unspecified (2) Cellulitis of axilla, right: Gradually improving cellulitis. Continue antibiotic. Anticipate will continue to improve with treatment of anasarca Continue diuresis as above. Continue n vancomycin, nystatin. Follow-up renal function chemistry requested. Interval sheets were not working well, getting crumpled up and irritating him. Due to size of his folds changed to pillow cases instead. Emollients to dry/cracked areas. (3) Ankle injury: Qualifiers: Encounter type: initial encounter Laterality: left Qualified Code(s): S99.912A - Unspecified injury of left ankle, initial encounter (4) PVD (peripheral vascular disease): Plan Hyperbilirubinemia: Possibly congestive hepatopathy secondary to CHF. He does not have right upper quadrant pain. Bilirubin level appreciated, previously normal, currently elevated 1.5. Requested follow-up. Gallbladder appears okay on CT. Hyponatremia: Sodium level with fluctuation. Today slightly worse to 133. Continue diuresis. Follow-up requested. Likely hypervolemic. Hyperbilirubinemia: Resolved appreciated. Reviewed CT, gallbladder and bile ducts without calcified gallstones or biliary dilation identified. Follow-up liver parameters requested. #Generalized anasarca: Diuresis as above. Continue lower extremity compression wraps. #Cellulitis, intertrigo axilla and groin areas #Acute on Chronic heart failure with reduced ejection fraction #Alcoholic liver cirrhosis: Reviewed CT. No significant ascites. Severe cirrhosis. At risk of variceal bleed. Continue lactulose. #History of alcohol abuse #History of esophageal varices #History of hypertension #Chronic axillary wounds present #CKD. Creatinine seems to be at baseline -States he is on Bumex 1 mg twice daily at home however does not seem is working really well. - He has stopped taking his lactulose because he says he is unable to clean himself properly and requires help. Lactulose causes him to have diarrhea. - He last saw his student records specialist 1 year ago and was not recommended for liver transplant. He was deemed not to be a candidate for it at the time. - Case management referral - PT Attestations Medical Necessity Statement*: Continue admission for assessment of management of CHF in the setting of CKD, anasarca, cellulitis. Diagnoses CHF (congestive heart failure) I50.9 Heart failure chronicity: chronic Heart failure type: unspecified Cellulitis of axilla, right L03.111 Ankle injury S99.912A Encounter type: initial encounter Laterality: left PVD (peripheral vascular disease) I73.9
[2022-10-25] VITALS (11 sets, daily range): BP systolic 97–145; BP diastolic 64–94; PULSE 79–101; RESP 18–19; TEMP 36.7–36.9; O2SAT 90–95
[2022-10-25] MEDS: fluticasone nasal spray 16gm Btl 1 SPRAY NASAL (03:47)
[2022-10-25] MEDS: levothyroxine 50 mcg Tablet PO (05:33)
[2022-10-25] MEDS: dilTIAZem ER (24HR) 120 mg Capsule PO (05:33)
[2022-10-25 05:56] LABS: Basophils # 0.1 10^3/uL (0.0-0.1); Basophils % 0.9 %; Eosinophils # 0.3 10^3/uL (0.0-0.8); Hematocrit 32.3 % (42.0-52.0); Lymphocytes % 17.1 %; Mean Corpuscular HGB Conc 34.1 g/dL (30.0-36.0); Mean Corpuscular Hemoglobin 39.3 pg (28.0-34.0); Mean Corpuscular Volume 115.4 fl (80-94); Mean Platelet Volume 9.5 fL (7.4-10.4); Monocytes # 0.8 10^3/uL (0.2-0.9); Monocytes % 14.2 %; Neutrophils # 3.44 10^3/uL (1.8-7.7); Neutrophils % 62.1 %; Nucleated Red Blood Cells % 0 %; Platelet Count 141 10^3/cmm (130-400); Red Cell Distribution Width 14.7 % (12.1-15.1); White Blood Count 5.6 10^3/uL (4.0-10.0)
[2022-10-25] MEDS: bumetanide 0.25 mg/mL SDV 4 mL 2 MG IVP ×2 (06:18→16:13)
[2022-10-25 06:19] LABS: Alanine Aminotransferase 11 U/L (0-41); Albumin Level 2.5 g/dL (3.5-5.2); Alkaline Phosphatase 104 U/L (40-130); Anion Gap 8.7 (5-19); Aspartate Amino Transferase 23 U/L (0-40); Blood Urea Nitrogen 20 mg/dL (6-20); Calcium 8.7 mg/dL (8.5-10.5); Carbon Dioxide 34 mmol/L (22-29); Chloride 94 mmol/L (98-107); Globulin 3.1 g/dL (1.3-4.6); Glomerular Filtration Rate 44.6 mL/min (90-130); Glucose 134 mg/dL (65-115); Osmolality Calculated 281 mOsm/kg (285-295); Potassium 3.7 mmol/L (3.5-5.1); Sodium 133 mmol/L (136-145); Total Bilirubin 1.6 mg/dL (0.15-1.2); Total Protein 5.6 g/dL (6.6-8.7)
[2022-10-25] MEDS: lactulose oral liq 20 gm/30 mL UDC PO (08:20)
[2022-10-25] MEDS: levETIRAcetam 500 mg Tablet 1000 MG PO ×2 (08:20→18:14)
[2022-10-25] MEDS: midodrine 5 mg TABLET PO ×3 (08:21→20:33)
[2022-10-25] MEDS: gabapentin 100 mg Capsule PO ×3 (08:21→20:33)
[2022-10-25] MEDS: alfuzosin 10 mg ER Tablet PO (08:21)
[2022-10-25] MEDS: thiamine 100 mg Tablet 50 MG PO (08:21)
[2022-10-25] MEDS: pantoprazole DR 40 mg Tablet PO (08:22)
[2022-10-25] MEDS: ferrous sulfate EC 325 mg Tablet PO (08:22)
[2022-10-25] MEDS: vancomycin 1,500 MG/300 ML PIGGYBACK 200 MG IV (08:23)
[2022-10-25] MEDS: nystatin cream 30 gm 1 APPLIC TOPICAL ×2 (11:41→18:16)
[2022-10-25] MEDS: folic acid 1 mg Tablet PO (11:41)
[2022-10-25] MEDS: heparin 5,000 unit/mL INJ 1 mL 5000 UNIT SUBCUT (11:41)
[2022-10-25] MEDS: metOLazone 5 MG Tablet PO (16:12)
[2022-10-25] MEDS: predniSONE 20 mg Tablet 40 MG PO (16:12)
[2022-10-25] MEDS: TRAMadol 50 mg Tablet 100 MG PO (16:25)
--- NOTE | 2022-10-25 16:33 | P.PN_ITS ---
Subjective Subjective: Patient was seen this morning, he tells me that he is feeling a lot better, continues to have edema and anasarca, he does complain of some abdominal distention but its not significant enough to tap he tells me, no fevers overnight, no chest pain, denies any hemoptysis Vitals/I&O/Wt Last Vital Signs Temp 98.1 F 10/25/22 12:00 Pulse 92 10/25/22 12:00 Resp 18 10/25/22 12:00 BP 112/65 10/25/22 12:00 Pulse Ox 95 10/25/22 12:00 O2 Del Method 10/25/22 12:00 10/25/22 10/25/22 10/25/22 06:59 14:59 22:59 Intake Total 480 / 1190 1020 / 1020 Output Total 2100 / 4825 Balance -1620 / -3635 1020 / 1020 Weight last 48 hrs Weight 198.447 kg Weight 201.026 kg Physical Exam Const: COMMON NORMALS: no acute distress and patient oriented x3 Resp: COMMON NORMALS: normal respiratory effort, No retractions, No use of accessory muscles and clear to auscultation bilaterally AUSCULTATION: clear to auscultation bilaterally Cardio: COMMON NORMALS: regular rate, regular rhythm, S1 normal heart sound present and S2 normal heart sound present RATE: regular rate RHYTHM: regular rhythm HEART SOUNDS: S1 normal heart sound present and S2 normal heart sound present GI: COMMON NORMALS: Normal to inspection, nondistended, normoactive bowel sounds present OTHER: Morbidly obese abdomen, anasarca Extremity: NARRATIVE EXTREMITY EXAM: 2+ pitting edema bilateral extremity Cellulitis location, bilateral axilla, groin, well demarcated borders, decreasing in size Neuro: COMMON NORMALS: patient oriented x3 Psych: COMMON NORMALS: mental status grossly normal Urinary Catheter Management: Weir: Cath Placed During This Visit: yes Reason for Continuing Indwelling Catheter: Acute Urinary Retention or Obstruction Urinary Catheter Date of Insertion: 10/21/22 Urinary Catheter Time of Insertion: 23:50 Data 10/25/22 05:00 10/25/22 05:00 A&P Assessment and plan (1) CHF (congestive heart failure): Diuresing well now on review of intake and output. Continue current regimen including metolazone, however, will need close monitoring of renal function. Requested follow-up creatinine. Severe anasarca persists. H&P note reviewed. YONATHAN reviewed. Unclear if charted correctly, but appears to be in positive balance. Daily weights to be measured. Acute CHF exacerbation, type unknown, suspected likely systolic with previously decreased ejection fraction. [place] for accurate YONATHAN. Follow-up pending echocardiogram. Qualifiers: Heart failure chronicity: chronic Heart failure type: unspecified Qualified Code(s): I50.9 - Heart failure, unspecified (2) Cellulitis of axilla, right: Gradually improving cellulitis. Continue antibiotic. Anticipate will continue to improve with treatment of anasarca Continue diuresis as above. Continue n vancomycin, nystatin. Follow-up renal function chemistry requested. Interval sheets were not working well, getting crumpled up and irritating him. Due to size of his folds changed to pillow cases instead. Emollients to dry/cracked areas. (3) Ankle injury: Qualifiers: Encounter type: initial encounter Laterality: left Qualified Code(s): S99.912A - Unspecified injury of left ankle, initial encounter (4) PVD (peripheral vascular disease): (5) End-stage liver disease: (6) Esophageal varices: (7) Chronic kidney disease: (8) Portal hypertension: (9) Splenomegaly: (10) Contraindication to deep vein thrombosis (DVT) prophylaxis: (11) COPD with acute exacerbation: (12) Atrial fibrillation and flutter: (13) Anasarca: (14) Chronic hyponatremia: (15) Morbid obesity: (16) NSTEMI (non-ST elevated myocardial infarction): (17) Hypoalbuminemia: (18) Smoker: Plan Acute systolic diastolic CHF exacerbation, with fluid overload -Has anasarca, 2+ pitting edema -Continue Bumex 2 mg IV push twice daily -Start albumin with Bumex -Continue Zaroxolyn -Monitor urine output monitor creatinine monitor respiratory status Generalized anasarca, as above COPD exacerbation, start prednisone 40 mg p.o. daily History of smoking Cellulitis, and axillary locations, groin locations, continue vancomycin we will consider de-escalating next 24 hours Evidence of esophageal varices on CT scan abdomen pelvis -Hold heparin for DVT prophylaxis -Start Coreg 3.125 twice daily for esophageal varices prophylaxis, will consider referral to general surgery for endoscopy Splenomegaly, monitor Hyperbilirubinemia: Possibly congestive hepatopathy secondary to CHF. Also component related to liver cirrhosis, he does not have right upper quadrant pain. Bilirubin level appreciated, previously normal, currently elevated 1.5. Requested follow-up. Gallbladder appears okay on CT. Hyponatremia: Sodium level with fluctuation. Today slightly worse to 133. Continue diuresis. Follow-up requested. Likely hypervolemic. Hyperbilirubinemia: Resolved appreciated. Reviewed CT, gallbladder and bile ducts without calcified gallstones or biliary dilation identified. Follow-up liver parameters requested. #Generalized anasarca: Diuresis as above. Continue lower extremity compression wraps. #Cellulitis, intertrigo axilla and groin areas #Acute on Chronic heart failure with reduced ejection fraction #Alcoholic liver cirrhosis: Reviewed CT. No significant ascites. Severe cir rhosis. At risk of variceal bleed. Continue lactulose. #History of alcohol abuse #History of esophageal varices #History of hypertension #Chronic axillary wounds present #CKD. Creatinine seems to be at baseline -States he is on Bumex 1 mg twice daily at home however does not seem is working really well. - He has stopped taking his lactulose because he says he is unable to clean himself properly and requires help. Lactulose causes him to have diarrhea. - He last saw his academic administrator 1 year ago and was not recommended for liver transplant. He was deemed not to be a candidate for it at the time. - Case management referral - PT Attestations Medical Necessity Statement*: Patient requires position for acute systolic diastolic CHF exacerbation requiring diuresis, cellulitis requiring antibiotic therapy, now with COPD exacerbation, requiring prednisone therapy Coding Level of Care Code 07756 Diagnoses CHF (congestive heart failure) I50.9 Heart failure chronicity: chronic Heart failure type: unspecified Cellulitis of axilla, right L03.111 Ankle injury S99.912A Encounter type: initial encounter Laterality: left PVD (peripheral vascular disease) I73.9 End-stage liver disease K72.90 Esophageal varices I85.00 Chronic kidney disease N18.9 Portal hypertension K76.6 Splenomegaly R16.1 Contraindication to deep vein thrombosis (DVT) prophylaxis Z53.09 COPD with acute exacerbation J44.1 Atrial fibrillation and flutter I48.91; I48.92 Anasarca R60.1 Chronic hyponatremia E87.1 Morbid obesity E66.01 NSTEMI (non-ST elevated myocardial infarction) I21.4 Hypoalbuminemia E88.09 Smoker F17.200
[2022-10-25] MEDS: carvedilol 3.125 mg Tablet PO (18:15)
[2022-10-26] VITALS (10 sets, daily range): BP systolic 116–156; BP diastolic 75–81; PULSE 76–90; RESP 12–20; TEMP 36.7–36.9; O2SAT 91–95
[2022-10-26] MEDS: vancomycin 1,500 MG/300 ML PIGGYBACK 200 MG IV (01:47)
[2022-10-26 05:35] LABS: Basophils % 0.4 %; Eosinophils % 0.1 %; Hemoglobin 11.3 g/dL (11.7-16.6); Lymphocytes # 0.6 10^3/uL (0.8-4.8); Lymphocytes % 9.2 %; Mean Corpuscular HGB Conc 34.2 g/dL (30.0-36.0); Mean Corpuscular Volume 113.8 fl (80-94); Mean Platelet Volume 9.8 fL (7.4-10.4); Monocytes # 0.5 10^3/uL (0.2-0.9); Neutrophils % 82.1 %; Nucleated Red Blood Cells % 0 %; Platelet Count 143 10^3/cmm (130-400); White Blood Count 6.8 10^3/uL (4.0-10.0)
[2022-10-26 06:05] LABS: Alanine Aminotransferase 12 U/L (0-41); Albumin Level 2.9 g/dL (3.5-5.2); Alkaline Phosphatase 122 U/L (40-130); Anion Gap 12.1 (5-19); Aspartate Amino Transferase 25 U/L (0-40); Blood Urea Nitrogen 22 mg/dL (6-20); Calcium 8.4 mg/dL (8.5-10.5); Carbon Dioxide 32 mmol/L (22-29); Chloride 93 mmol/L (98-107); Globulin 3.3 g/dL (1.3-4.6); Glomerular Filtration Rate 44.6 mL/min (90-130); Glucose 152 mg/dL (65-115); Magnesium 1.9 mg/dL (1.7-2.3); NT Pro B Type Natriuretic Pept 1488 pg/mL (0-125); Osmolality Calculated 282 mOsm/kg (285-295); Phosphorus 2.5 mg/dL (2.5-4.5); Potassium 4.1 mmol/L (3.5-5.1); Sodium 133 mmol/L (136-145); Total Bilirubin 1.1 mg/dL (0.15-1.2); Total Protein 6.2 g/dL (6.6-8.7)
[2022-10-26] MEDS: levothyroxine 50 mcg Tablet PO (06:11)
[2022-10-26] MEDS: albumin 50 G/200 ML BAG 60 G IV (10:17)
[2022-10-26] MEDS: bumetanide 0.25 mg/mL SDV 4 mL 2 MG IVP ×2 (10:19→15:54)
[2022-10-26] MEDS: carvedilol 3.125 mg Tablet PO ×2 (10:20→18:37)
[2022-10-26] MEDS: midodrine 5 mg TABLET PO ×3 (10:20→20:50)
[2022-10-26] MEDS: folic acid 1 mg Tablet PO (10:20)
[2022-10-26] MEDS: alfuzosin 10 mg ER Tablet PO (10:20)
[2022-10-26] MEDS: thiamine 100 mg Tablet 50 MG PO (10:21)
[2022-10-26] MEDS: gabapentin 100 mg Capsule PO ×3 (10:22→20:50)
[2022-10-26] MEDS: nystatin cream 30 gm 1 APPLIC TOPICAL ×2 (10:23→18:37)
[2022-10-26] MEDS: lactulose oral liq 20 gm/30 mL UDC PO ×2 (10:23→18:37)
[2022-10-26] MEDS: ferrous sulfate EC 325 mg Tablet PO (10:23)
[2022-10-26] MEDS: levETIRAcetam 500 mg Tablet 1000 MG PO ×2 (10:23→18:38)
[2022-10-26] MEDS: pantoprazole DR 40 mg Tablet PO (10:23)
--- NOTE | 2022-10-26 12:06 | PC.SOCIAL ---
IMM update IMM updated with patient at bedside. Copy of page 2 provided. Patient verbalized understanding. Copy in chart initialed, dated and timed.
--- NOTE | 2022-10-26 13:37 | P.PN_ITS ---
Subjective Subjective: Patient was seen this morning, he tells me that he did not sleep much last night, he got 3 hours of sleep between 7 and 10, continues to hav repeat edema, he tells me that he has a history of esophageal varices status post band ligation, this was over 2 years ago he does have an appointment with a his sales account specialist in [place] no bloody vomit reported Vitals/I&O/Wt Last Vital Signs Temp 98.0 F 10/26/22 12:00 Pulse 80 10/26/22 12:00 Resp 18 10/26/22 12:00 BP 144/81 10/26/22 12:00 Pulse Ox 95 10/26/22 12:00 O2 Del Method 10/26/22 12:00 10/25/22 10/26/22 10/26/22 22:59 06:59 14:59 Intake Total 720 / 1740 780 / 2520 480 / 480 Output Total 2500 / 2500 1000 / 3500 Balance -1780 / -760 -220 / -980 480 / 480 Weight last 48 hrs Weight 199.212 kg Weight 198.447 kg Physical Exam Const: COMMON NORMALS: no acute distress and patient oriented x3 Resp: COMMON NORMALS: normal respiratory effort, No retractions, No use of accessory muscles and clear to auscultation bilaterally AUSCULTATION: clear to auscultation bilaterally Cardio: COMMON NORMALS: regular rate, regular rhythm, S1 normal heart sound present and S2 normal heart sound present RATE: regular rate RHYTHM: regular rhythm HEART SOUNDS: S1 normal heart sound present and S2 normal heart sound present GI: COMMON NORMALS: Normal to inspection, nondistended, normoactive bowel sounds present, non-tender and no masses OTHER: Obese abdomen with generalized anasarca Extremity: NARRATIVE EXTREMITY EXAM: 1+ pitting bilateral extremity Neuro: COMMON NORMALS: patient oriented x3 Psych: COMMON NORMALS: mental status grossly normal Urinary Catheter Management: Weir: Cath Placed During This Visit: yes Reason for Continuing Indwelling Catheter: Acute Urinary Retention or Obstruct ion Urinary Catheter Date of Insertion: 10/21/22 Urinary Catheter Time of Insertion: 23:50 Data 10/26/22 04:52 10/26/22 04:52 A&P Assessment and plan (1) CHF (congestive heart failure): Diuresing well now on review of intake and output. Continue current regimen including metolazone, however, will need close monitoring of renal function. Requested follow-up creatinine. Severe anasarca persists. H&P note reviewed. YONATHAN reviewed. Unclear if charted correctly, but appears to be in positive balance. Daily weights to be measured. Acute CHF exacerbation, type unknown, suspected likely systolic with previously decreased ejection fraction. [place] for accurate YONATHAN. Follow-up pending echocardiogram. Qualifiers: Heart failure chronicity: chronic Heart failure type: unspecified Qualified Code(s): I50.9 - Heart failure, unspecified (2) Cellulitis of axilla, right: Gradually improving cellulitis. Continue antibiotic. Anticipate will continue to improve with treatment of anasarca Continue diuresis as above. Continue n vancomycin, nystatin. Follow-up renal function chemistry requested. Interval sheets were not working well, getting crumpled up and irritating him. Due to size of his folds changed to pillow cases instead. Emollients to dry/cracked areas. (3) Ankle injury: Qualifiers: Encounter type: initial encounter Laterality: left Qualified Code(s): S99.912A - Unspecified injury of left ankle, initial encounter (4) PVD (peripheral vascular disease): (5) End-stage liver disease: (6) Esophageal varices: (7) Chronic kidney disease: (8) Portal hypertension: (9) Splenomegaly: (10) Contraindication to deep vein thrombosis (DVT) prophylaxis: (11) COPD with acute exacerbation: (12) Atrial fibrillation and flutter: (13) Anasarca: (14) Chronic hyponatremia: (15) Morbid obesity: (16) NSTEMI (non-ST elevated myocardial infarction): (17) Hypoalbuminemia: (18) Smoker: Plan Acute systolic diastolic CHF exacerbation, with fluid overload -Has anasarca, 1+ pitting edema -Continue Bumex 2 mg IV push twice daily, with albumin -Continue Zaroxolyn -Monitor urine output monitor creatinine monitor respiratory status Generalized anasarca, as above COPD exacerbation, continue prednisone 40 mg p.o. daily History of smoking Cellulitis, and axillary locations, groin locations, continue vancomycin we will consider de-escalating next 24 hours Evidence of esophageal varices on CT scan abdomen pelvis -History of esophageal varices status post band ligation over 2 years ago -Hold heparin for DVT prophylaxis -Continue Coreg 3.125 twice daily for esophageal varices prophylaxis, will need follow-up with gastroenterology as in [place] for band ligation Splenomegaly, monitor Hyperbilirubinemia: Possibly congestive hepatopathy secondary to CHF. Also component related to liver cirrhosis, he does not have right upper quadrant pain. Bilirubin level appreciated, previously normal, currently elevated 1.5. Requested follow-up. Gallbladder appears okay on CT. Hyponatremia: Sodium level with fluctuation. Today slightly worse to 133. Continue diuresis. Follow-up requested. Likely hypervolemic. Hyperbilirubinemia: Resolved appreciated. Reviewed CT, gallbladder and bile ducts without calcified gallstones or biliary dilation identified. Follow-up liver parameters requested. #Generalized anasarca: Diuresis as above. Continue lower extremity compression wraps. #Cellulitis, intertrigo axilla and groin areas, de-escalate vancomycin #Acute on Chronic heart failure with reduced ejection fraction #Alcoholic liver cirrhosis: Reviewed CT. No significant ascites. Severe cirrhosis. At risk of variceal bleed. Continue lactulose. #History of alcohol abuse #History of esophageal varices #History of hypertension #Chronic axillary wounds present #CKD. Creatinine seems to be at baseline -States he is on Bumex 1 mg twice daily at home however does not seem is working really well. - He has stopped taking his lactulose because he says he is unable to clean himself properly and requires help. Lactulose causes him to have diarrhea. - He last saw his electrical panel builder 1 year ago and was not recommended for liver transplant. He was deemed not to be a candidate for it at the time. - Case management referral - PT DVT prophylaxis, SCDs, anticoagulation relatively contraindicated due to evidence of esophageal varices Full code Plan for today is to continue diuresis, will de-escalate off vancomycin Attestations Medical Necessity Statement*: Patient requires hospitalization for fluid overload diastolic CHF exacerbation anasarca, COPD exacerbation cellulitis Coding Level of Care Code 52654 Diagnoses CHF (congestive heart failure) I50.9 Heart failure chronicity: chronic Heart failure type: unspecified Cellulitis of axilla, right L03.111 Ankle injury S99.912A Encounter type: initial encounter Laterality: left PVD (peripheral vascular disease) I73.9 End-stage liver disease K72.90 Esophageal varices I85.00 Chronic kidney disease N18.9 Portal hypertension K76.6 Splenomegaly R16.1 Contraindication to deep vein thrombosis (DVT) prophylaxis Z53.09 COPD with acute exacerbation J44.1 Atrial fibrillation and flutter I48.91; I48.92 Anasarca R60.1 Chronic hyponatremia E87.1 Morbid obesity E66.01 NSTEMI (non-ST elevated myocardial infarction) I21.4 Hypoalbuminemia E88.09 Smoker F17.200
[2022-10-26] MEDS: metOLazone 5 MG Tablet PO (15:45)
[2022-10-26] MEDS: predniSONE 20 mg Tablet 40 MG PO (15:46)
[2022-10-26] MEDS: doxycycline 100 mg Tablet PO (18:38)
[2022-10-26 19:44] LABS: Vancomycin Trough 23.5 ug/mL (10-15)
[2022-10-26] MEDS: TRAMadol 50 mg Tablet 100 MG PO (21:55)
[2022-10-27] VITALS (9 sets, daily range): BP systolic 114–154; BP diastolic 69–78; PULSE 72–92; RESP 14–20; TEMP 36.5–36.9; O2SAT 90–94
[2022-10-27 05:54] LABS: Alanine Aminotransferase 14 U/L (0-41); Albumin Level 3.4 g/dL (3.5-5.2); Alkaline Phosphatase 102 U/L (40-130); Blood Urea Nitrogen 24 mg/dL (6-20); Calcium 8.6 mg/dL (8.5-10.5); Carbon Dioxide 29 mmol/L (22-29); Chloride 91 mmol/L (98-107); Globulin 2.5 g/dL (1.3-4.6); Glomerular Filtration Rate 48.1 mL/min (90-130); Glucose 137 mg/dL (65-115); Osmolality Calculated 282 mOsm/kg (285-295); Phosphorus 3.4 mg/dL (2.5-4.5); Sodium 133 mmol/L (136-145); Total Bilirubin 0.8 mg/dL (0.15-1.2); Total Protein 5.9 g/dL (6.6-8.7)
[2022-10-27 05:58] LABS: Basophils % 0.2 %; Eosinophils % 0.2 %; Hematocrit 32.4 % (42.0-52.0); Hemoglobin 10.9 g/dL (11.7-16.6); Lymphocytes # 0.7 10^3/uL (0.8-4.8); Lymphocytes % 8.9 %; Mean Corpuscular HGB Conc 33.6 g/dL (30.0-36.0); Mean Corpuscular Hemoglobin 38.5 pg (28.0-34.0); Mean Corpuscular Volume 114.5 fl (80-94); Mean Platelet Volume 9.9 fL (7.4-10.4); Monocytes # 0.7 10^3/uL (0.2-0.9); Monocytes % 9.1 %; Neutrophils # 6.49 10^3/uL (1.8-7.7); Nucleated Red Blood Cells % 0 %; Platelet Count 139 10^3/cmm (130-400); Red Blood Count 2.83 10^6/uL (4.1-5.3); Red Cell Distribution Width 13.8 % (12.1-15.1)
[2022-10-27 06:01] LABS: Anion Gap 17.5 (5-19); Aspartate Amino Transferase 28 U/L (0-40); Potassium 4.5 mmol/L (3.5-5.1)
[2022-10-27] MEDS: levothyroxine 50 mcg Tablet PO (06:07)
[2022-10-27 06:32] LABS: NT Pro B Type Natriuretic Pept 3359 pg/mL (0-125)
[2022-10-27] MEDS: levETIRAcetam 500 mg Tablet 1000 MG PO ×2 (10:03→17:29)
[2022-10-27] MEDS: doxycycline 100 mg Tablet PO ×2 (10:03→17:29)
[2022-10-27] MEDS: lactulose oral liq 20 gm/30 mL UDC PO ×2 (10:03→17:29)
[2022-10-27] MEDS: carvedilol 3.125 mg Tablet PO ×2 (10:04→17:29)
[2022-10-27] MEDS: alfuzosin 10 mg ER Tablet PO (10:05)
[2022-10-27] MEDS: gabapentin 100 mg Capsule PO ×3 (10:05→22:08)
[2022-10-27] MEDS: folic acid 1 mg Tablet PO (10:06)
[2022-10-27] MEDS: midodrine 5 mg TABLET PO ×3 (10:06→22:08)
[2022-10-27] MEDS: thiamine 100 mg Tablet 50 MG PO (10:06)
[2022-10-27] MEDS: ferrous sulfate EC 325 mg Tablet PO (10:07)
[2022-10-27] MEDS: pantoprazole DR 40 mg Tablet PO (10:07)
[2022-10-27] MEDS: nystatin cream 30 gm 1 APPLIC TOPICAL ×2 (10:08→18:57)
[2022-10-27] MEDS: bumetanide 0.25 mg/mL SDV 4 mL 2 MG IVP ×2 (10:08→16:45)
--- NOTE | 2022-10-27 12:20 | PM.PN ---
Subjective Subjective: Patient was seen this morning, he tells me he feels quite happy this morning, as he is lost about 8 pounds of fluid in the last 24 hours he feels a lot better no nausea, no vomiting, chest pain Vitals/I&O/Wt Last Vital Signs Temp 98.1 F 10/27/22 08:00 Pulse 77 10/27/22 08:00 Resp 18 10/27/22 08:00 BP 121/74 10/27/22 08:00 Pulse Ox 92 10/27/22 08:00 O2 Del Method 10/27/22 08:00 10/26/22 10/27/22 10/27/22 22:59 06:59 14:59 Intake Total 1200 / 1880 240 / 2120 Output Total 2000 / 5000 700 / 5700 Balance -800 / -3120 -460 / -3580 Weight last 48 hrs Weight 195.697 kg Weight 199.212 kg Physical Exam Const: COMMON NORMALS: no acute distress and patient oriented x3 Resp: COMMON NORMALS: normal respiratory effort, No retractions, No use of accessory muscles and clear to auscultation bilaterally AUSCULTATION: clear to auscultation bilaterally Cardio: COMMON NORMALS: regular rate, regular rhythm, S1 normal heart sound present and S2 normal heart sound present RATE: regular rate RHYTHM: regular rhythm HEART SOUNDS: S1 normal heart sound present and S2 normal heart sound present GI: COMMON NORMALS: Normal to inspection, nondistended, normoactive bowel sounds present and non-tender Extremity: NARRATIVE EXTREMITY EXAM: 1+ edema, anasarca Neuro: COMMON NORMALS: patient oriented x3 Psych: COMMON NORMALS: mental status grossly normal Urinary Catheter Management: Weir: Cath Placed During This Visit: yes Reason for Continuing Indwelling Catheter: Acute Urinary Retention or Obstruction Urinary Catheter Date of Insertion: 10/21/22 Urinary Catheter Time of Insertion: 23:50 Data 10/27/22 05:52 10/27/22 05:13 Micro: Microbiology 10/21/22 19:12 Blood Culture - Final Blood NO GROWTH AFTER 5 DAYS 10/21/22 19:15 Blood Culture - Final Blood NO GROWTH AFTER 5 DAYS A&P Assessment and plan (1) CHF (congestive heart failure): Diuresing well now on review of intake and output. Continue current regimen including metolazone, however, will need close monitoring of renal function. Requested follow-up creatinine. Severe anasarca persists. H&P note reviewed. YONATHAN reviewed. Unclear if charted correctly, but appears to be in positive balance. Daily weights to be measured. Acute CHF exacerbation, type unknown, suspected likely systolic with previously decreased ejection fraction. Weir for accurate YONATHAN. Follow-up pending echocardiogram. Qualifiers: Heart failure chronicity: chronic Heart failure type: unspecified Qualified Code(s): I50.9 - Heart failure, unspecified (2) Cellulitis of axilla, right: Gradually improving cellulitis. Continue antibiotic. Anticipate will continue to improve with treatment of anasarca Continue diuresis as above. Continue n vancomycin, nystatin. Follow-up renal function chemistry requested. Interval sheets were not working well, getting crumpled up and irritating him. Due to size of his folds changed to pillow cases instead. Emollients to dry/cracked areas. (3) Ankle injury: Qualifiers: Encounter type: initial encounter Laterality: left Qualified Code(s): S99.912A - Unspecified injury of left ankle, initial encounter (4) PVD (peripheral vascular disease): (5) End-stage liver disease: (6) Esophageal varices: (7) Chronic kidney disease: (8) Portal hypertension: (9) Splenomegaly: (10) Contraindication to deep vein thrombosis (DVT) prophylaxis: (11) COPD with acute exacerbation: (12) Atrial fibrillation and flutter: (13) Anasarca: (14) Chronic hyponatremia: (15) Morbid obesity: (16) NSTEMI (non-ST elevated myocardial infarction): (17) Hypoalbuminemia: (18) Smoker: Plan Acute systolic diastolic CHF exacerbation, with fluid overload -Diuresed over 5.7 L yesterday -Continues to have 1+ pitting edema some anasarca -Continue Bumex 2 mg IV push twice daily, with albumin -Continue Zaroxolyn for 1 more dose, -Monitor urine output monitor creatinine monitor respiratory status Generalized anasarca, as above COPD exacerbation, continue prednisone 40 mg p.o. daily History of smoking Cellulitis, and axillary locations, groin locations de-escalated antibiotics to doxycycline Evidence of esophageal varices on CT scan abdomen pelvis -History of esophageal varices status post band ligation over 2 years ago -Hold heparin for DVT prophylaxis -Continue Coreg 3.125 twice daily for esophageal varices prophylaxis, will need follow-up with gastroenterology as in [place] for band ligation Splenomegaly, monitor Hyperbilirubinemia: Possibly congestive hepatopathy secondary to CHF. Also component related to liver cirrhosis, he does not have right upper quadrant pain. Bilirubin level appreciated, previously normal, currently elevated 0.8. Requested follow-up. Gallbladder appears okay on CT. Hyponatremia: Sodium level with fluctuation. Today slightly worse to 133. Continue diuresis. Follow-up requested. Likely hypervolemic. Hyperbilirubinemia: Resolved appreciated. Reviewed CT, gallbladder and bile ducts without calcified gallstones or biliary dilation identified. Follow-up liver parameters requested. #Generalized anasarca: Diuresis as above. Continue lower extremity compression wraps. #Cellulitis, intertrigo axilla and groin areas, continue doxycycline #Acute on Chronic heart failure with reduced ejection fraction #Alcoholic liver cirrhosis: Reviewed CT. No significant ascites. Severe cirrhosis. At risk of variceal bleed. Continue lactulose. #History of alcohol abuse #History of esophageal varices #History of hypertension #Chronic axillary wounds present #CKD. Creatinine seems to be at baseline -States he is on Bumex 1 mg twice daily at home however does not seem is working really well. - He has stopped taking his lactulose because he says he is unable to clean himself properly and requires help. Lactulose causes him to have diarrhea. - He last saw his code machine operator 1 year ago and was not recommended for liver transplant. He was deemed not to be a candidate for it at the time. - Case management referral - PT DVT prophylaxis, SCDs, anticoagulation relatively contraindicated due to evidence of esophageal varices Full code Plan for today continue diuresis, plan on de-escalating tomorrow, continue antibiotic therapy, Attestations Medical Necessity Statement*: Patient requires hospitalization for acute systolic diastolic CHF exacerbation, fluid overload, continue to diurese Diagnoses CHF (congestive heart failure) I50.9 Heart failure chronicity: chronic Heart failure type: unspecified Cellulitis of axilla, right L03.111 Ankle injury S99.912A Encounter type: initial encounter Laterality: left PVD (peripheral vascular disease) I73.9 End-stage liver disease K72.90 Esophageal varices I85.00 Chronic kidney disease N18.9 Portal hypertension K76.6 Splenomegaly R16.1 Contraindication to deep vein thrombosis (DVT) prophylaxis Z53.09 COPD with acute exacerbation J44.1 Atrial fibrillation and flutter I48.91; I48.92 Anasarca R60.1 Chronic hyponatremia E87.1 Morbid obesity E66.01 NSTEMI (non-ST elevated myocardial infarction) I21.4 Hypoalbuminemia E88.09 Smoker F17.200
[2022-10-27] MEDS: metOLazone 5 MG Tablet PO (13:33)
[2022-10-27] MEDS: predniSONE 20 mg Tablet 40 MG PO (16:44)
[2022-10-27] MEDS: albumin 25 G/100 ML BAG 60 G IV (16:46)
[2022-10-27] MEDS: TRAMadol 50 mg Tablet 100 MG PO (18:57)
[2022-10-28] VITALS (9 sets, daily range): BP systolic 119–150; BP diastolic 66–76; PULSE 77–100; RESP 16–18; TEMP 36.5–36.9; O2SAT 92–95
[2022-10-28] MEDS: TRAMadol 50 mg Tablet PO (03:42)
[2022-10-28 04:14] LABS: Basophils % 0.4 %; Eosinophils # 0.1 10^3/uL (0.0-0.8); Eosinophils % 1.3 %; Hematocrit 33.3 % (42.0-52.0); Hemoglobin 11.4 g/dL (11.7-16.6); Lymphocytes # 0.6 10^3/uL (0.8-4.8); Lymphocytes % 8.6 %; Mean Corpuscular HGB Conc 34.2 g/dL (30.0-36.0); Mean Corpuscular Hemoglobin 39.2 pg (28.0-34.0); Mean Corpuscular Volume 114.4 fl (80-94); Mean Platelet Volume 9.4 fL (7.4-10.4); Monocytes # 0.7 10^3/uL (0.2-0.9); Monocytes % 9.7 %; Neutrophils # 5.54 10^3/uL (1.8-7.7); Nucleated Red Blood Cells % 0 %; Platelet Count 133 10^3/cmm (130-400); Red Blood Count 2.91 10^6/uL (4.1-5.3); Red Cell Distribution Width 14.2 % (12.1-15.1)
[2022-10-28 04:45] LABS: Anion Gap 9.2 (5-19); Blood Urea Nitrogen 32 mg/dL (6-20); Calcium 8.9 mg/dL (8.5-10.5); Carbon Dioxide 37 mmol/L (22-29); Chloride 91 mmol/L (98-107); Glomerular Filtration Rate 48.1 mL/min (90-130); Glucose 145 mg/dL (65-115); NT Pro B Type Natriuretic Pept 2646 pg/mL (0-125); Osmolality Calculated 285 mOsm/kg (285-295); Potassium 4.2 mmol/L (3.5-5.1); Sodium 133 mmol/L (136-145)
[2022-10-28] MEDS: levothyroxine 50 mcg Tablet PO (06:02)
[2022-10-28] MEDS: lactulose oral liq 20 gm/30 mL UDC PO ×2 (08:14→17:20)
[2022-10-28] MEDS: bumetanide 0.25 mg/mL SDV 4 mL 2 MG IVP ×2 (08:14→17:22)
[2022-10-28] MEDS: carvedilol 3.125 mg Tablet PO ×2 (08:15→17:22)
[2022-10-28] MEDS: pantoprazole DR 40 mg Tablet PO (08:16)
[2022-10-28] MEDS: gabapentin 100 mg Capsule PO ×3 (08:16→20:20)
[2022-10-28] MEDS: ferrous sulfate EC 325 mg Tablet PO (08:16)
[2022-10-28] MEDS: alfuzosin 10 mg ER Tablet PO (08:16)
[2022-10-28] MEDS: thiamine 100 mg Tablet 50 MG PO (08:16)
[2022-10-28] MEDS: midodrine 5 mg TABLET PO ×3 (08:17→20:20)
[2022-10-28] MEDS: levETIRAcetam 500 mg Tablet 1000 MG PO ×2 (08:17→17:21)
[2022-10-28] MEDS: doxycycline 100 mg Tablet PO ×2 (08:18→17:20)
[2022-10-28] MEDS: albumin 25 G/100 ML BAG 60 G IV ×2 (08:18→16:17)
--- NOTE | 2022-10-28 10:38 | PC.SOCIAL ---
IMM Update pg 2 of IMM updated and reviewed w/ patient. Copy provided and copy in chart dated and initialed.
[2022-10-28] MEDS: nystatin cream 30 gm 1 APPLIC TOPICAL ×2 (11:19→17:20)
[2022-10-28] MEDS: folic acid 1 mg Tablet PO (11:20)
[2022-10-28] MEDS: predniSONE 20 mg Tablet 40 MG PO (16:18)
--- NOTE | 2022-10-28 16:58 | P.PN_ITS ---
Subjective Subjective: He is overall doing better. Anasarca continues to gradually improve. His abdomen still feels distended, bandlike and he feels that there is fluid inside. Vitals/I&O/Wt Last Vital Signs Temp 98.0 F 10/28/22 15:52 Pulse 88 10/28/22 15:52 Resp 18 10/28/22 15:52 BP 126/71 10/28/22 15:52 Pulse Ox 93 10/28/22 15:52 O2 Del Method 10/28/22 15:52 10/28/22 10/28/22 10/28/22 06:59 14:59 22:59 Intake Total 240 / 1540 700 / 700 Output Total 1500 / 1500 1900 / 1900 Balance -1260 / 40 -1200 / -1200 Weight last 48 hrs Weight 193.094 kg Weight 195.697 kg Physical Exam Const: COMMON NORMALS: patient oriented x3 and alert GENERAL APPEARANCE: cooperative NUTRITIONAL APPEARANCE: obese morbidly obese ORIENTATION/CONSCIOUSNESS: Yes awake HENMT: COMMON NORMALS: oropharynx normal Neck/C-Spine: COMMON NORMALS: no JVD Resp: COMMON NORMALS: normal respiratory effort AUSCULTATION: diminished lung sounds Cardio: COMMON NORMALS: no JVD, regular rhythm, S1 normal heart sound present, S2 normal heart sound present and No murmurs present (Cardio) RHYTHM: regular rhythm HEART SOUNDS: S1 normal heart sound present and S2 normal heart sound present GI: COMMON NORMALS: Normal to inspection, nondistended, normoactive bowel sounds present, Soft to palpation and non-tender PALPATION: Yes Soft to palpation Extremity: COMMON NORMALS: no joint enlargement GENERAL: Yes edema (Improving anasarca of bilateral lower extremities, but also abdomen, lower.) and Yes other findings (Decreased swelling/size of scrotal edema.) Neuro: COMMON NORMALS: patient oriented x3 and moves all extremities SENSORIUM/ORIENTATION: Yes alert Skin: COMMON NORMALS: no rashes or lesions noted NARRATIVE SKIN EXAM: Improving in intensity of erythema of arms with resolution of erythema outside of armpits and abdominal folds, groin, erythema, maceration in armpits groin. Erythema residual bilateral lower extremities. Exudative drainage resolved in right upper extremities, resolving in lower extremities. GENERAL SKIN EXAM: no rashes or lesions noted Urinary Catheter Management: Weir: Cath Placed During This Visit: yes Reason for Continuing Indwelling Catheter: Other Urinary Catheter Date of Insertion: 10/21/22 Urinary Catheter Time of Insertion: 23:50 Data 10/28/22 04:04 10/28/22 04:04 A&P Assessment and plan (1) CHF (congestive heart failure): He is diuresing well, in negative balance, with diminishing anasarca, so far res olving weeping in right upper extremity, still weeping in the armpits, resolving weeping of the legs. Improving cellulitis. Prior hospitalist documentation reviewed. Chemistry panel reviewed, sodium 133, creatinine 1.5, BUN 32. Potassium is normal. Requested repeat chemistry with continued IV diuresis for monitoring of potassium, bicarb, renal function with risk of kidney injury in setting of CKD. Monitor I&O, weights. Metolazone has been discontinued. Weir for accurate YONATHAN. Echocardiogram results appreciated, no windows. Qualifiers: Heart failure chronicity: chronic Heart failure type: unspecified Qualified Code(s): I50.9 - Heart failure, unspecified (2) Cellulitis of axilla, right: Gradually improving cellulitis. Antibiotic de-escalated to doxycycline. Continue. Anticipate will continue to improve with treatment of anasarca Continue diuresis as above. Interdry sheets were not working well, getting crumpled up and irritating him. Due to size of his folds changed to pillow cases instead which have been working better. Emollients to dry/cracked areas. (3) Ankle injury: Qualifiers: Encounter type: initial encounter Laterality: left Qualified Code(s): S99.912A - Unspecified injury of left ankle, initial encounter (4) PVD (peripheral vascular disease): (5) End-stage liver disease: (6) Esophageal varices: (7) Chronic kidney disease: (8) Portal hypertension: He states abdomen still feels distended, feels like he has ascites. He other oliveira has been diuresing well. Do anticipate that with diuresis in case ascites present should be improving. Could benefit from paracentesis, we weighed this with him, but but decision was unless urgently necessary, given he has had resolving multifocal cellulitis, including lower abdomen, would hold off to make sure infection is resolved so as not to cause translocation/peritonitis. (9) Splenomegaly: (10) Contraindication to deep vein thrombosis (DVT) prophylaxis: (11) COPD with acute exacerbation: Diminished air entry, but difficult to examine due to body habitus. Decrease prednisone dose to 20 mg. (12) Atrial fibrillation and flutter: (13) Anasarca: Continue diuresis. He is cumulative negative about 9 L. (14) Chronic hyponatremia: (15) Morbid obesity: Follow-up with primary provider with regards to weight loss options. (16) NSTEMI (non-ST elevated myocardial infarction): (17) Hypoalbuminemia: (18) Smoker: Plan COPD exacerbation, continue prednisone 40 mg p.o. daily History of smoking Cellulitis, and axillary locations, groin locations de-escalated antibiotics to doxycycline Evidence of esophageal varices on CT scan abdomen pelvis -History of esophageal varices status post band ligation over 2 years ago -Hold heparin for DVT prophylaxis -Continue Coreg 3.125 twice daily for esophageal varices prophylaxis, will need follow-up with gastroenterology as in [place] for band ligation Splenomegaly, monitor Hyperbilirubinemia: Liver parameters reviewed, hyperbilirubinemia resolved. Likely secondary to acute CHF. Hyponatremia: Steady around 133. Continue diuresis. Likely hypervolemic. #Cellulitis, intertrigo axilla and groin areas, continue doxycycline #Acute on Chronic heart failure with reduced ejection fraction #Alcoholic liver cirrhosis: Reviewed CT. No significant ascites on presentation. Severe cirrhosis. At risk of variceal bleed. Continue lactulose. Rifaximin. #History of alcohol abuse #History of esophageal varices #History of hypertension #Chronic axillary wounds present #CKD. Creatinine seems to be at baseline -States he is on Bumex 1 mg twice daily at home however does not seem is working really well. - He has stopped taking his lactulose because he says he is unable to clean himself properly and requires help. Lactulose causes him to have diarrhea. - He last saw his beaver trapper 1 year ago and was not recommended for liver transplant. He was deemed not to be a candidate for it at the time. - Case management disposition planning. - PT DVT prophylaxis, SCDs, anticoagulation relatively contraindicated due to evidence of esophageal varices Full code Attestations Medical Necessity Statement*: Continue admission for assessment management of acute CHF, anasarca, extensive cellulitis, in a gentleman with CKD cirrhosis, possible ascites, disposition planning and arrangements. Other Coding Information Focused coding review requested Diagnoses CHF (congestive heart failure) I50.9 Heart failure chronicity: chronic Heart failure type: unspecified Cellulitis of axilla, right L03.111 Ankle injury S99.912A Encounter type: initial encounter Laterality: left PVD (peripheral vascular disease) I73.9 End-stage liver disease K72.90 Esophageal varices I85.00 Chronic kidney disease N18.9 Portal hypertension K76.6 Splenomegaly R16.1 Contraindication to deep vein thrombosis (DVT) prophylaxis Z53.09 COPD with acute exacerbation J44.1 Atrial fibrillation and flutter I48.91; I48.92 Anasarca R60.1 Chronic hyponatremia E87.1 Morbid obesity E66.01 NSTEMI (non-ST elevated myocardial infarction) I21.4 Hypoalbuminemia E88.09 Smoker F17.200
[2022-10-28] MEDS: TRAMadol 50 mg Tablet 100 MG PO (17:21)
[2022-10-29] VITALS (7 sets, daily range): BP systolic 119–136; BP diastolic 51–81; PULSE 78–94; RESP 15–20; TEMP 36.3–36.9; O2SAT 90–95
[2022-10-29] MEDS: acetaminophen 325 mg Tablet 650 MG PO (00:08)
[2022-10-29] MEDS: levothyroxine 50 mcg Tablet PO (05:04)
[2022-10-29] MEDS: artificial tears Op Soln 15 mL Btl 1 DROP EYE-BOTH ×2 (05:07→09:55)
[2022-10-29 05:51] LABS: Anion Gap 16.1 (5-19); Blood Urea Nitrogen 33 mg/dL (6-20); Calcium 8.7 mg/dL (8.5-10.5); Carbon Dioxide 33 mmol/L (22-29); Chloride 91 mmol/L (98-107); Glomerular Filtration Rate 44.6 mL/min (90-130); Glucose 160 mg/dL (65-115); Osmolality Calculated 293 mOsm/kg (285-295); Potassium 4.1 mmol/L (3.5-5.1); Sodium 136 mmol/L (136-145)
[2022-10-29] MEDS: doxycycline 100 mg Tablet PO ×2 (08:46→17:40)
[2022-10-29] MEDS: levETIRAcetam 500 mg Tablet 1000 MG PO ×2 (08:46→17:39)
[2022-10-29] MEDS: lactulose oral liq 20 gm/30 mL UDC PO (08:46)
[2022-10-29] MEDS: carvedilol 3.125 mg Tablet PO ×2 (08:47→17:40)
[2022-10-29] MEDS: thiamine 100 mg Tablet 50 MG PO (08:47)
[2022-10-29] MEDS: predniSONE 20 mg Tablet PO (08:47)
[2022-10-29] MEDS: gabapentin 100 mg Capsule PO ×3 (08:47→20:32)
[2022-10-29] MEDS: ferrous sulfate EC 325 mg Tablet PO (08:48)
[2022-10-29] MEDS: midodrine 5 mg TABLET PO ×3 (08:48→20:33)
[2022-10-29] MEDS: pantoprazole DR 40 mg Tablet PO (08:48)
[2022-10-29] MEDS: alfuzosin 10 mg ER Tablet PO (08:48)
[2022-10-29] MEDS: albumin 25 G/100 ML BAG 60 G IV (09:02)
[2022-10-29] MEDS: bumetanide 0.25 mg/mL SDV 4 mL 2 MG IVP ×2 (09:18→16:14)
[2022-10-29] MEDS: folic acid 1 mg Tablet PO (09:32)
[2022-10-29] MEDS: nystatin cream 30 gm 1 APPLIC TOPICAL (09:32)
[2022-10-29] MEDS: fluticasone nasal spray 16gm Btl 1 SPRAY NASAL (09:55)
[2022-10-29] MEDS: albumin 25 G/100 ML VIAL IV (16:13)
[2022-10-29] MEDS: TRAMadol 50 mg Tablet 100 MG PO (18:11)
--- NOTE | 2022-10-29 21:07 | P.PN_ITS ---
Subjective Subjective: He is overall continue to improve. Edema/anasarca continues to decrease. Persistent Giurgius erythema around the left armpit. Persistent erythema bilateral lower legs. He has worked with physical therapy. Reports significant difficulties trying to turn to his wounds, or even just reaching different body parts. Vitals/I&O/Wt Last Vital Signs Temp 97.5 F L 10/29/22 16:00 Pulse 83 10/29/22 16:00 Resp 16 10/29/22 16:00 BP 125/51 10/29/22 16:00 Pulse Ox 95 10/29/22 16:00 O2 Del Method 10/29/22 08:11 10/29/22 10/29/22 10/29/22 06:59 14:59 22:59 Intake Total 480 / 1820 700 / 700 340 / 1040 Output Total 1100 / 5000 4200 / 4200 Balance -620 / -3180 700 / 700 -3860 / -3160 Weight last 48 hrs Weight 192.096 kg Weight 193.094 kg Physical Exam Const: COMMON NORMALS: patient oriented x3 and alert GENERAL APPEARANCE: cooperative NUTRITIONAL APPEARANCE: obese morbidly obese ORIENTATION/CONSCIOUSNESS: Yes awake HENMT: COMMON NORMALS: oropharynx normal Neck/C-Spine: COMMON NORMALS: no JVD Resp: COMMON NORMALS: normal respiratory effort and clear to auscultation bilaterally AUSCULTATION: clear to auscultation bilaterally and diminished lung sounds Cardio: COMMON NORMALS: no JVD, regular rhythm, S1 normal heart sound present, S2 normal heart sound present and No murmurs present (Cardio) RHYTHM: regular rhythm HEART SOUNDS: S1 normal heart sound present and S2 normal heart sound present GI: COMMON NORMALS: Normal to inspection, nondistended, normoactive bowel sounds present, Soft to palpation and non-tender PALPATION: Yes Soft to palpation Extremity: COMMON NORMALS: no joint enlargement GENERAL: Yes edema (Improving anasarca of bilateral lower extremities, but also abdomen, lower.) and Yes other findings (Decreased swelling/size of scrotal edema.) Neuro: COMMON NORMALS: patient oriented x3 and moves all extremities SENSORIUM/ORIENTATION: Yes alert Skin: COMMON NORMALS: no rashes or lesions noted NARRATIVE SKIN EXAM: Improving in intensity of erythema of arms with resolution of erythema outside of armpits and abdominal folds, skin fissures in groin, erythema, maceration in armpits groin. Erythema residual bilateral lower extremities. Exudative drainage resolved in right upper extremities, resolving in lower extremities. GENERAL SKIN EXAM: no rashes or lesions noted Urinary Catheter Management: Weir: Cath Placed During This Visit: yes Reason for Continuing Indwelling Catheter: Other Urinary Catheter Date of Insertion: 10/21/22 Urinary Catheter Time of Insertion: 23:50 Data 10/28/22 04:04 10/29/22 04:46 A&P Assessment and plan (1) CHF (congestive heart failure): Anasarca is improving well. Continue IV diuretics today. Discussed with him if continues to improve, remains in negative balance, consider switching to oral diuretics tomorrow. He is diuresing well, in negative balance, with diminishing anasarca, so far resolving weeping in right upper extremity, still weeping in the armpits, resolving weeping of the legs. Improving cellulitis. Requested repeat chemistry with continued IV diuresis for monitoring of potassium, bicarb, renal function with risk of kidney injury in setting of CKD. Monitor I&O, weights. Weir for accurate YONATHAN. Echocardiogram - no windows. Qualifiers: Heart failure chronicity: chronic Heart failure type: unspecified Qualified Code(s): I50.9 - Heart failure, unspecified (2) Cellulitis of axilla, right: Gradually improving cellulitis. Antibiotic de-escalated to doxycycline. Continue. Anticipate will continue to improve with treatment of anasarca. Continue doxycycline. Continue diuresis as above. Interdry sheets were not working well, getting crumpled up and irritating him. Due to size of his folds changed to pillow cases instead which have been working better. Emollients to dry/cracked areas. (3) Ankle injury: Qualifiers: Encounter type: initial encounter Laterality: left Qualified Code(s): S99.912A - Unspecified injury of left ankle, initial encounter (4) PVD (peripheral vascular disease): (5) End-stage liver disease: (6) Esophageal varices: (7) Chronic kidney disease: (8) Portal hypertension: He states abdomen still feels distended, feels like he has ascites. He otherw ise has been diuresing well. Do anticipate that with diuresis in case ascites present should be improving. Could benefit from paracentesis, we weighed this with him, but but decision was unless urgently necessary, given he has had resolving multifocal cellulitis, including lower abdomen, would hold off to make sure infection is resolved so as not to cause translocation/peritonitis. (9) Splenomegaly: (10) Contraindication to deep vein thrombosis (DVT) prophylaxis: (11) COPD with acute exacerbation: Decrease prednisone to 10 mg. Diminished air entry, but difficult to examine due to body habitus. (12) Atrial fibrillation and flutter: (13) Anasarca: Continue diuresis. He is cumulative negative about 9 L. (14) Chronic hyponatremia: (15) Morbid obesity: Follow-up with primary provider with regards to weight loss options. (16) NSTEMI (non-ST elevated myocardial infarction): (17) Hypoalbuminemia: (18) Smoker: Plan History of smoking Evidence of esophageal varices on CT scan abdomen pelvis -History of esophageal varices status post band ligation over 2 years ago -Hold heparin for DVT prophylaxis -Continue Coreg 3.125 twice daily for esophageal varices prophylaxis, will need follow-up with gastroenterology as in [place] for band ligation Splenomegaly, monitor Hyperbilirubinemia: Liver parameters reviewed, hyperbilirubinemia resolved. Likely secondary to acute CHF. Hyponatremia: Improved. Sodium level appreciated at 136. Repeat chemistry r equested. Continue diuresis. Likely hypervolemic. #Acute on Chronic heart failure with reduced ejection fraction #Alcoholic liver cirrhosis: Reviewed CT. No significant ascites on presentation. Severe cirrhosis. At risk of variceal bleed. Continue lactulose. Rifaximin. #History of alcohol abuse #History of esophageal varices #History of hypertension #Chronic axillary wounds present #CKD. Creatinine seems to be at baseline Morbid obesity: Quite significant difficulties with self-care. BMI 57.4. Has challenges reaching areas on his body limiting self-care and causing difficulties with ADLs. OT requested. -States he is on Bumex 1 mg twice daily at home however does not seem is working really well. - He has stopped taking his lactulose because he says he is unable to clean himself properly and requires help. Lactulose causes him to have diarrhea. 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 He was deemed not to be a candidate for it at the time. - Case management disposition planning. - PT DVT prophylaxis, SCDs, anticoagulation relatively contraindicated due to evidence of esophageal varices Full code Attestations Medical Necessity Statement*: Continue admission for assessment management of CHF, diuresis with extensive cellulitis, de-escalation of treatment for COPD exacerbation, disposition planning and assessment. Diagnoses CHF (congestive heart failure) I50.9 Heart failure chronicity: chronic Heart failure type: unspecified Cellulitis of axilla, right L03.111 Ankle injury S99.912A Encounter type: initial encounter Laterality: left PVD (peripheral vascular disease) I73.9 End-stage liver disease K72.90 Esophageal varices I85.00 Chronic kidney disease N18.9 Portal hypertension K76.6 Splenomegaly R16.1 Contraindication to deep vein thrombosis (DVT) prophylaxis Z53.09 COPD with acute exacerbation J44.1 Atrial fibrillation and flutter I48.91; I48.92 Anasarca R60.1 Chronic hyponatremia E87.1 Morbid obesity E66.01 NSTEMI (non-ST elevated myocardial infarction) I21.4 Hypoalbuminemia E88.09 Smoker F17.200
[2022-10-30] VITALS: BP 108/57; PULSE 20; RESP 81; TEMP 36.6; O2SAT 94
[2022-10-30 03:58] VITALS: BP 109/68; PULSE 77; RESP 20; TEMP 37.1; O2SAT 93
[2022-10-30 05:42] LABS: Anion Gap 14.2 (5-19); Blood Urea Nitrogen 42 mg/dL (6-20); Calcium 8.5 mg/dL (8.5-10.5); Carbon Dioxide 34 mmol/L (22-29); Chloride 91 mmol/L (98-107); Glomerular Filtration Rate 44.6 mL/min (90-130); Glucose 141 mg/dL (65-115); Osmolality Calculated 295 mOsm/kg (285-295); Potassium 3.2 mmol/L (3.5-5.1); Sodium 136 mmol/L (136-145)
[2022-10-30] MEDS: levothyroxine 50 mcg Tablet PO (06:15)
[2022-10-30 07:17] VITALS: BP 139/45; PULSE 70; RESP 17; TEMP 36.6; O2SAT 92
[2022-10-30] MEDS: alfuzosin 10 mg ER Tablet PO (08:21)
[2022-10-30] MEDS: doxycycline 100 mg Tablet PO (08:22)
[2022-10-30] MEDS: levETIRAcetam 500 mg Tablet 1000 MG PO (08:22)
[2022-10-30] MEDS: gabapentin 100 mg Capsule PO (08:23)
[2022-10-30] MEDS: midodrine 5 mg TABLET PO (08:23)
[2022-10-30] MEDS: ferrous sulfate EC 325 mg Tablet PO (08:23)
[2022-10-30] MEDS: predniSONE 20 mg Tablet 10 MG PO (08:23)
[2022-10-30] MEDS: carvedilol 3.125 mg Tablet PO (08:24)
[2022-10-30] MEDS: lactulose oral liq 20 gm/30 mL UDC PO (08:24)
[2022-10-30] MEDS: pantoprazole DR 40 mg Tablet PO (08:24)
[2022-10-30] MEDS: nystatin cream 30 gm 1 APPLIC TOPICAL (08:25)
[2022-10-30] MEDS: thiamine 100 mg Tablet 50 MG PO (08:25)
[2022-10-30] MEDS: bumetanide 0.25 mg/mL SDV 4 mL 2 MG IVP (08:34)
[2022-10-30] MEDS: albumin 25 G/100 ML VIAL IV (08:38)
--- NOTE | 2022-10-30 09:19 | PC.SOCIAL ---
IMM update IMM updated with patient. Copy Pg 2 provided. Verbalized an understanding. Initialled, dated, timed, and placed in chart.
--- NOTE | 2022-10-30 09:40 | PC.NURSE ---
Bedside report completed with GLEN Rincon at 0710. Pt voiced no needs at this time.
[2022-10-30 09:49] VITALS: PULSE 70; RESP 17; O2SAT 92
[2022-10-30] MEDS: folic acid 1 mg Tablet PO (10:51)
[2022-10-30 11:46] VITALS: BP 147/74; PULSE 103; RESP 17; TEMP 37.3; O2SAT 94
[2022-10-30 12:44] LABS: SARS Covid-2 Antigen negative (Negative)
--- NOTE | 2022-10-30 13:14 | P.DS_ITS ---
Discharge Providers Date of Admission: 10/21/22 19:58 Date of Discharge: October 30, 2022 Attending Provider at Admission: Edita Orellana MD Attending Provider at Discharge: Max Goodson Primary Care Provider: Yosvany Segoiva MD Diagnoses at Discharge Discharge Diagnosis (1) CHF (congestive heart failure): Status: Acute Qualifiers: Heart failure chronicity: chronic Heart failure type: unspecified Qualified Code(s): I50.9 - Heart failure, unspecified (2) Cellulitis of axilla, right: Status: Acute (3) Ankle injury: Status: Acute Qualifiers: Encounter type: initial encounter Laterality: left Qualified Code(s): S99.912A - Unspecified injury of left ankle, initial encounter (4) PVD (peripheral vascular disease): Status: Acute (5) End-stage liver disease: Status: Acute (6) Esophageal varices: Status: Acute (7) Chronic kidney disease: Status: Acute (8) Portal hypertension: Status: Acute (9) Splenomegaly: Status: Acute (10) Contraindication to deep vein thrombosis (DVT) prophylaxis: Status: Acute (11) COPD with acute exacerbation: Status: Acute (12) Atrial fibrillation and flutter: Status: Acute Permanent problem details: Echocardiogram done in 2020 shows an EF of 40 to 45% with hypokinetic septum, anteroseptum and inferior wall, biatrial enlargement (13) Anasarca: Status: Acute (14) Chronic hyponatremia: Status: Acute (15) Morbid obesity: Status: Acute (16) NSTEMI (non-ST elevated myocardial infarction): Status: Acute (17) Hypoalbuminemia: Status: Acute (18) Smoker: Status: Acute Reason for Visit Reason for Visit: LEFT ANKLE PAIN/ 2 DAYS AGO Hospital Course Hospital Course Pleasant 57-year-old gentleman with history of HFpEF, liver cirrhosis and end- stage liver disease, not found to be a candidate for liver transplantation, hepatorenal syndrome, seizures, morbid obesity, BMI 56.4, COPD, atrial fibrillation/flutter, chronic kidney disease, peripheral vascular disease, active smoker, hypoalbuminemia, chronic hyponatremia, CAD, Charcot's arthropathy, esophageal varices, was admitted after presenting with severe generalized edema, large areas of erythema/rash including armpits, arms and torso around armpits, groins, under pannus, as well as bilateral lower extremit ies, also left ankle pain. Ankle x-ray negative for fracture or dislocation. Calcified heel spur. Scattered vascular calcifications. Second metatarsal proximal metaphyseal fracture suspected likely chronic. On presentation found to be hyponatremic, sodium 129, renal function around baseline, BUN 18, creatinine 1.7. Mild elevation of troponin. Was treated with IV diuresis, switch to IV Bumex, which was uptitrated to 2 mg IV twice daily due to initial poor response to diuretic, with also addition of metolazone daily, subsequently diuresing well, echocardiogram was attempted, but there were no windows, electrolytes were monitored, received potassium replacement for mild hypokalemia, renal function was monitored, remaining at baseline. Hyponatremia resolved. Significant anasarca including severe scrotal edema resolving. Extensive cellulitis of multiple areas superimposed on severely edematous weeping areas, especially in the armpits, also right forearm with significant weeping, bilateral groins, under pannus, lower legs, with extremities elevated were possible, currently not treated additionally with scrotal support, initially Interdry sheets for armpits, skin folds and groins, but had to be exchanged for pillowcases to allow for appropriate coverage with morbid obesity, nystatin cream, barrier emollient to prevent further moisture damage were applied. Received treatment with doxycycline, transiently also vancomycin. With treatment, diuresis, cellulitis has been resolving. Quite significant improvement especially in bilateral armpits, resolved in right upper extremity, newly resolving in bilateral lower extremities, cellulitis resolved but still residual maceration in bilateral groins, under pannus. During hospitalization additionally treated for mild COPD exacerbation, received prednisone, she being tapered off. Antibiotic coverage also as above. Breathing treatments. This has resolved. He is doing well on room air. He is quite significantly deconditioned, getting tired with walking with a walker, but has been motivated to work with physical therapy and will benefit from further rehabilitation, is currently excepted for continuation at SNF. Also with significant functional limitation due to exercise, unable to reach his feet to put on his socks, unable to reach other areas of his body to care for them. Will benefit from further occupational therapy as well. He is transitioned to oral diuretics with Bumex 2 mg twice daily. Please reassess his volume status, as well as chemistry panel for electrolytes and renal function. Adjust diuretics as appropriate for continued maintenance to avoid recurrence of anasarca. He is continued on spironolactone as well due to liver cirrhosis. Please arrange follow-up for him with gastroenterology for further assessment of esophageal varices incidentally noted on imaging, consideration of banding. He is started on propranolol. Continue regular follow-up with regards to liver cirrhosis. He continues on lactulose and Xifaxan, target for 2-3 soft bowel movements a day. Once any signs of cellulitis resolved, referral sent for additional assessment with ultrasound to reassess ascites. Reassess for recovery from COPD exacerbation. Follow-up with him regarding weight loss options. Follow-up his other conditions including possible submetatarsal proximal insufficiency fracture suspected chronic, Charcot's arthropathy, cardiovascular disease including PVD, CKD, anemia, COPD, atrial fibrillation, smoking and other chronic conditions. Physical Exam Const: COMMON NORMALS: patient oriented x3 and alert GENERAL APPEARANCE: cooperative NUTRITIONAL APPEARANCE: obese morbidly obese ORIENTATION/CONSCIOUSNESS: Yes awake HENMT: COMMON NORMALS: oropharynx normal Neck/C-Spine: COMMON NORMALS: no JVD Resp: COMMON NORMALS: normal respiratory effort and clear to auscultation bilaterally AUSCULTATION: clear to auscultation bilaterally and diminished lung sounds Cardio: COMMON NORMALS: no JVD, regular rhythm, S1 normal heart sound present, S2 normal heart sound present and No murmurs present (Cardio) RHYTHM: regular rhythm HEART SOUNDS: S1 normal heart sound present and S2 normal heart sound present GI: COMMON NORMALS: Normal to inspection, nondistended, normoactive bowel sounds present, Soft to palpation and non-tender PALPATION: Yes Soft to palpation Extremity: COMMON NORMALS: no joint enlargement GENERAL: Yes edema (Improving anasarca of bilateral lower extremities, but also abdomen, lower.) and Yes other findings (Decreased swelling/size of scrotal edema.) Neuro: COMMON NORMALS: patient oriented x3 and moves all extremities SENSORIUM/ORIENTATION: Yes alert Skin: COMMON NORMALS: no rashes or lesions noted NARRATIVE SKIN EXAM: Improving in intensity of erythema of arms with resolution of erythema outside of armpits and abdominal folds, skin fissures in groin, erythema, maceration in armpits groin. Erythema residual bilateral lower extremities. Exudative drainage resolved in right upper extremities, resolving in lower extremities. GENERAL SKIN EXAM: no rashes or lesions noted Urinary Catheter Management: Weir: Cath Placed During This Visit: yes Reason for Continuing Indwelling Catheter: Other Urinary Catheter Date of Insertion: 10/21/22 Urinary Catheter Time of Insertion: 23:50 Discharge Data Studies Completed and Pending Completed Studies During Hospitalization Category Date Time Status CT abdomen pelvis wo con [id number] Routine Cat Scan 10/22/22 01:23 Completed XR ankle LT min 3V* [id number] Stat Exams 10/21/22 17:41 Completed XR chest 1V portable [id number] Stat Exams 10/21/22 17:41 Completed CV. echo complete* [id number] Routine Ultrasound 10/22/22 22:39 Completed Pending at discharge Category Date Time Status Basic Metabolic Panel AM LABS Lab 10/31/22 04:00 Ordered Radiology Impressions Ankle X-Ray 10/21/22 17:41 IMPRESSION: 1. Negative for fracture or dislocation 2. Calcified heel spur. 3. Scattered vascular calcifications. 4. Second metatarsal proximal metaphyseal fracture suspected, likely chronic. Chest X-Ray 10/21/22 17:41 IMPRESSION: Cardiomegaly and pulmonary vascular congestion. Abdomen/Pelvis CT 10/22/22 01:23 IMPRESSION: 1. The findings have improved mildly from 09/01/2021. 2. Severe cirrhosis again seen with clear evidence of portal hypertension. Multiple varices are seen including esophageal varices. This patient is at increased risk for a variceal bleed. 3. No significant ascites. 4. Fecal filled colon, splenomegaly, and other chronic findings above. Laboratory Results WBC 7.0 10^3/uL (4.0-10.0) 10/28/22 04:04 Corrected WBC Cancelled 10/27/22 05:13 RBC 2.91 10^6/uL (4.1-5.3) L 10/28/22 04:04 Hgb 11.4 g/dL (11.7-16.6) L 10/28/22 04:04 Hct 33.3 % (42.0-52.0) L 10/28/22 04:04 MCV 114.4 fl (80-94) H 10/28/22 04:04 MCH 39.2 pg (28.0-34.0) H 10/28/22 04:04 MCHC 34.2 g/dL (30.0-36.0) 10/28/22 04:04 RDW 14.2 % (12.1-15.1) 10/28/22 04:04 Plt Count 133 10^3/cmm (130-400) 10/28/22 04:04 MPV 9.4 fL (7.4-10.4) 10/28/22 04:04 Gran % Cancelled 10/27/22 05:13 Neut % (Auto) 79.0 % 10/28/22 04:04 Lymph % (Auto) 8.6 % 10/28/22 04:04 [place] % (Auto) 9.7 % 10/28/22 04:04 Eos % (Auto) 1.3 % 10/28/22 04:04 Baso % (Auto) 0.4 % 10/28/22 04:04 Neut # (Auto) 5.54 10^3/uL (1.8-7.7) 10/28/22 04:04 Lymph # (Auto) 0.6 10^3/uL (0.8-4.8) L 10/28/22 04:04 [place] # (Auto) 0.7 10^3/uL (0.2-0.9) 10/28/22 04:04 Eos # (Auto) 0.1 10^3/uL (0.0-0.8) 10/28/22 04:04 Baso # (Auto) 0.0 10^3/uL (0.0-0.1) 10/28/22 04:04 Absolute Gran (auto) Cancelled 10/27/22 05:13 Nucleated RBC % (auto) 0 % 10/28/22 04:04 Nucleated RBCs # 0.0 /100WBC 10/28/22 04:04 Sodium 136 mmol/L (136-145) 10/30/22 05:01 Potassium 3.2 mmol/L (3.5-5.1) L 10/30/22 05:01 Chloride 91 mmol/L (98-107) L 10/30/22 05:01 Carbon Dioxide 34 mmol/L (22-29) H 10/30/22 05:01 Anion Gap 14.2 (5-19) 10/30/22 05:01 BUN 42 mg/dL (6-20) H 10/30/22 05:01 Creatinine 1.6 mg/dL (0.7-1.2) H 10/30/22 05:01 GFR Calculation 44.6 mL/min (90-130) L 10/30/22 05:01 Glucose 141 mg/dL (65-115) H 10/30/22 05:01 Calculated Osmolality 295 mOsm/kg (285-295) 10/30/22 05:01 Lactic Acid 2.0 mmol/L (0.5-2.2) 10/21/22 18:17 Calcium 8.5 mg/dL (8.5-10.5) 10/30/22 05:01 Phosphorus 3.4 mg/dL (2.5-4.5) 10/27/22 05:13 Magnesium 2.0 mg/dL (1.7-2.3) 10/27/22 05:13 Total Bilirubin 0.8 mg/dL (0.15-1.2) 10/27/22 05:13 AST 28 U/L (0-40) 10/27/22 05:13 ALT 14 U/L (0-41) 10/27/22 05:13 Alkaline Phosphatase 102 U/L (40-130) 10/27/22 05:13 Troponin T Baseline 38 ng/L (0-15) H 10/21/22 18:17 Troponin T 120 Minute 33.07 ng/L (0-15) H 10/21/22 21:47 Delta Troponin T -4.93 ABS# (0-10) L 10/21/22 21:47 Troponin T Hi Sens 6Hr 37.87 ng/L (0-15) H 10/22/22 05:23 Troponin T Hi Sens 6Hr Delta -0.13 ng/L (0-12) L 10/22/22 05:23 C-Reactive Protein 39.5 mg/L (0.0-4.9) H 10/21/22 18:17 NT-Pro-B Natriuret Pep 2646 pg/mL (0-125) H 10/28/22 04:04 Total Protein 5.9 g/dL (6.6-8.7) L 10/27/22 05:13 Albumin 3.4 g/dL (3.5-5.2) L 10/27/22 05:13 Globulin 2.5 g/dL (1.3-4.6) 10/27/22 05:13 Vancomycin Trough 23.5 ug/mL (10-15) H 10/26/22 19:04 SARS-CoV-2 Ag (Rapid) negative (Negative) 10/30/22 11:10 Vitals Last Vital Signs Temp 99.2 F 10/30/22 11:46 Pulse 103 H 10/30/22 11:46 Resp 17 10/30/22 11:46 BP 147/74 10/30/22 11:46 Pulse Ox 94 10/30/22 11:46 O2 Del Method 10/30/22 11:46 Discharge Plan Discharge Patient Disposition: Xfer SNF Condition: Stable Prescriptions: New doxycycline monohydrate 100 mg Tablet 100 mg PO BID 2 Days Qty: 4 0RF propranolol 20 mg tablet 20 mg PO BID Qty: 180 0RF prednisone 5 mg tablet See Rx Instructions .ROUTE .COMPLEX Qty: 3 0RF Rx Instructions: Take 1 tab daily for 2 days, half tab daily for 2 days, then stop. Continued vitamin B complex [B Complex-Vitamin B12] Tablet 1 tab PO DAILY@16 diltiazem HCl [Cartia XT] 120 mg capsule,extended release 24hr 120 mg PO QAM levothyroxine 50 mcg tablet 50 mcg PO QAM Xifaxan 550 mg tablet 550 mg PO BID ([facility] [place]) Diabetic Shoe of RT foot See Rx Instructions .Route .MEDSUPPLY Qty: 1 0RF Rx Instructions: As directed thiamine HCl (vitamin B1) 50 mg tablet 50 mg PO DAILY ([facility] [place]) [place] Boot to left See Rx Instructions .Route .MEDSUPPLY Qty: 1 0RF Rx Instructions: As directed by SABI[employer]O ([facility] [place]) Domingo anton See Rx Instructions .Route .MEDSUPPLY Qty: 1 0RF Rx Instructions: As directed ([facility] [place]) [place] Boot to the left and an even-up applied to the right foot See Rx Instructions .Route .MEDSUPPLY Qty: 1 0RF Rx Instructions: As directed by Laureen ([facility] [place]) Repairs and Adjustments to brace/boot See Rx Instructions .Route .MEDSUPPLY Qty: 1 0RF Rx Instructions: As directed by Issa alfuzosin 10 mg tablet extended release 24 hr 10 mg PO DAILY Qty: 30 12RF Rx Instructions: administer after the same meal each day tramadol 50 mg Tablet 100 mg PO DAILY PRN (Reason: Pain) folic acid 1 mg tablet 1 mg PO DAILY@10 fluticasone propionate 50 mcg/actuation spray,suspension 1 - 2 spray intranasal DAILY PRN (Reason: Allergy Symptoms) albuterol sulfate 90 mcg/actuation HFA aerosol inhaler 2 puff INHALATION Q4H PRN (Reason: shortness of breath/wheezing) PreserVision AREDS [phone] [id number] Capsule 1 cap PO DAILY cetirizine [Zyrtec] 10 mg Tablet 10 mg PO DAILY midodrine 5 mg tablet 5 mg PO TID pantoprazole 40 mg tablet,delayed release (DR/EC) 40 mg PO DAILY potassium chloride 20 mEq Tablet Extended Release 20 meq PO BID Hold Instructions: Resume on 12/30/21. gabapentin 100 mg Capsule 100 mg PO TID levetiracetam 500 mg tablet 1,000 mg PO BID ferrous sulfate [iron] 325 mg (65 mg iron) Tablet 325 mg PO DAILY spironolactone 50 mg Tablet 50 mg PO DAILY Qty: 90 4RF Changed bumetanide 1 mg tablet 2 mg PO BID Qty: 180 3RF Discharge Orders: Discharge Order (Routine); Ordered 10/30/22 Ordered By: Max Goodson Referrals: [facility] [Outside] Yosvany Segovia MD [Primary Care Provider] - 4-7 days Binta Pitt MD [Physician] - 2 weeks Discharge Diet: Low Salt Discharge Activity: Increase activity as tolerated and As per PT/OT instructions Activity Restrictions/Additional Instructions: Continue diuretics with Bumex 2 mg twice daily. Reassess volume status, r eassess renal function on Friday. Adjust diuretic based on volume status and to continue maintenance to avoid recurrent buildup of edema/anasarca. Follow-up with cardiology for additional reassessment. Continue pillowcases underarms, groins, to keep dry changed 3 times a day at least. Apply nystatin cream twice daily to armpits, groins. Apply petrolatum/barrier emollient to lower extremities, any other areas at risk of moisture damage. Continue lactulose, rifaximin for liver cirrhosis targeting 2-3 soft bowel movements per day. Continue spironolactone. Reassess chemistry for potassium on Friday. Arrange follow-up with gastroenterology for assessment on possible band ligation of esophageal varices. Once any signs of cellulitis resolved, referral sent for additional assessment with ultrasound to reassess ascites. Continue regular recommended follow-up with regards to liver cirrhosis. If possible he prefers diet without cardiac restriction, is okay with sodium restriction for CHF, reassess sodium in setting of liver cirrhosis on Friday to follow-up for any development of hyponatremia. Reassess for recovery from COPD exacerbation. Follow-up with him regarding weight loss options. Follow-up his other conditions including cardiovascular disease including PVD, CKD, anemia, COPD, atrial fibrillation, smoking and other chronic conditions. Discharge Attestations Time Spent in Discharge Care*: greater than 30 min Status at Discharge: Cognitive status at discharge: cognitively intact , Behavioral status at discharge: [facility] , Quality Metrics Clinical Quality Measures [ No reported AMI, CVA or VTE this stay] Coding Level of Care Code Acute Code for Chg Fwd Diagnoses CHF (congestive heart failure) I50.9 Heart failure chronicity: chronic Heart failure type: unspecified Cellulitis of axilla, right L03.111 Ankle injury S99.912A Encounter type: initial encounter Laterality: left PVD (peripheral vascular disease) I73.9 End-stage liver disease K72.90 Esophageal varices I85.00 Chronic kidney disease N18.9 Portal hypertension K76.6 Splenomegaly R16.1 Contraindication to deep vein thrombosis (DVT) prophylaxis Z53.09 COPD with acute exacerbation J44.1 Atrial fibrillation and flutter I48.91; I48.92 Anasarca R60.1 Chronic hyponatremia E87.1 Morbid obesity E66.01 NSTEMI (non-ST elevated myocardial infarction) I21.4 Hypoalbuminemia E88.09 Smoker F17.200
--- NOTE | 2022-10-30 13:59 | PC.NURSE ---
Report called to Kady Greco LPN, at [facility].
[2022-10-30 14:30] VITALS: BP 147/74; PULSE 103; RESP 17; TEMP 37.3; O2SAT 94
[2022-10-30] MEDS: potassium chloride ER 20 mEq Tablet PO (14:30)
== END 2022-10-30 14:33 | disposition skilled nursing facility (03) | DRG 602 ==
LOC: ER 19:41 → MEDSURG 19:58
PROVIDERS: Family Medicine; Admitting Provider Internal Medicine; Emergency Provider Nurse Practitioner Family; PCP Family Medicine; Visit Provider Internal Medicine
DX: L03.111 Cellulitis of right axilla (principal); I50.23 Acute on chronic systolic (congestive) heart failure; I13.0 Hypertensive heart and chronic kidney disease with heart failure and stage 1 through stage 4 chronic kidney disease, or unspecified chronic kidney disease; L03.314 Cellulitis of groin; I85.00 Esophageal varices without bleeding; Z68.43 Body mass index [BMI] 50.0-59.9, adult; E87.1 Hypo-osmolality and hyponatremia; J44.1 Chronic obstructive pulmonary disease with (acute) exacerbation; K76.6 Portal hypertension; I48.92 Unspecified atrial flutter; N18.9 Chronic kidney disease, unspecified; L30.4 Erythema intertrigo; I73.9 Peripheral vascular disease, unspecified; K70.30 Alcoholic cirrhosis of liver without ascites; F10.11 Alcohol abuse, in remission; I48.91 Unspecified atrial fibrillation; E66.01 Morbid (severe) obesity due to excess calories; K72.10 Chronic hepatic failure without coma; S99.912A Unspecified injury of left ankle, initial encounter; X58.XXXA Exposure to other specified factors, initial encounter; R56.9 Unspecified convulsions; E80.6 Other disorders of bilirubin metabolism; R16.1 Splenomegaly, not elsewhere classified; F17.200 Nicotine dependence, unspecified, uncomplicated
CPT/HCPCS: 36415; 51702; 71045; 73610; 74176; 80048; 80053; 80202; 83605; 83735; 83880; 84100; 84484; 85025; 86140; 87040; 87426; 93005; 93306; 94640; 96372; 96374; 97110; 97116; 97161; 97166; 97530; 97535; 99285; J1644; J1940; J3370; J3490; J7512; J7613; P9046; P9047

== ENCOUNTER 2022-11-04 10:22 | Inpatient (IN) | payer MEDICARE, MEDICAID, SELFPAY ==
[2022-11-04] VITALS (104 sets, daily range): BP systolic 106–160; BP diastolic 67–112; PULSE 64–190; RESP 9–45; TEMP 36.4–37.3; O2SAT 82–98; BMI 56.0
--- NOTE | 2022-11-04 10:49 | XR_ITS ---
WS: [id number] Exam: XR chest 1V portable [id number] Date/Time of Exam: 11/04/2022 10:51 AM Reason For Exam: dyspnea/cough Comparison 10/21/2022. The lungs are clear and fully expanded. Heart size is top limits normal. The mediastinum is unremarka ble for a portable technique. No pleural effusion. Regional bony elements are intact. XR/XR chest 1V portable [id number] IMPRESSION: 1. No acute cardiopulmonary finding.
--- NOTE | 2022-11-04 10:52 | W.ED.GENADLT ---
HPI - General Adult General: Chief complaint: Altered Mental Status Stated complaint: AMS Time Seen by Provider: 11/04/22 10:27 Source: patient Mode of arrival: EMS History of Present Illness: 57-year-old male presents to the emergency room with acute encephalopathy. He has a history of acute hepatic encephalopathy EMS brought from the alf. The report was said overnight he became confused and disoriented he will laugh when asked questions but provides no usable history at all. Patient is nonambulatory has chronic extremity edema. He was recently admitted for severe anasarca. He has chronic swelling of the legs and has an indwelling Weir urine output in the Weir does not appear to be abnormal. He has no fever at this time. He is not in any respiratory distress Onset (ago): hour(s) Relieving factors: none Exacerbating factors: none Treatments prior to arrival: none Review of Systems General: Reports: ROS unobtainable due to mental status PFSH ED PFSH: Medical History (Updated 11/04/22 @ 16:26 by Ghassan Cedeno DO) Alcoholic cirrhosis of liver with ascites Anasarca Anemia Ataxia Atrial fibrillation and flutter BPH loc w urin obs/LUTS C. difficile diarrhea Charcot's arthropathy left foot CHF (congestive heart failure) Echocardiogram done in 2019 shows an EF of 40 to 45% with hypokinetic septum, anteroseptum and inferior wall, biatrial enlargement Chronic hyponatremia varies with volume status Chronic kidney disease COPD (chronic obstructive pulmonary disease) Encephalopathy, hepatic End-stage liver disease Erectile dysfunction Fracture of fourth metatarsal bone of left foot Fracture of second metatarsal bone of left foot Fracture of third metatarsal bone of left foot Hepatorenal syndrome History of abdominal paracentesis History of peritonitis Hx of esophageal varices Hypertension Morbid obesity Neuropathy Non-pressure chronic ulcer of other part of left foot limited to breakdown of skin Occult blood in stools Peritoneal dialysis catheter in situ Removed in 05/2021 due to recurrent bacterial peritonitis Peyronie disease Pleural effusion associated with hepatic disorder Pneumonia Portal hypertension PVD (peripheral vascular disease) Seizure Stereotyped movements Upper gastrointestinal hemorrhage due to gastritis EGD with pyloric ulcer in 05/2021 Surgical History (Updated 11/04/22 @ 16:06 by Wanda Salazar MD) H/O colonoscopy H/O esophagogastroduodenoscopy History of tonsillectomy Hx of umbilical hernia repair Hx of vasectomy Status post surgery (07/05/20) peritoneal catheter for ascites Family History Grandfather CAD (coronary artery disease) Grandmother CAD (coronary artery disease) Cancer Father Cancer Denies family history of Anesthesia complication Bleeding disorder Social History (Updated 11/04/22 @ 16:12 by Wanda Salazar MD) Housing: Residential Marital status: Current occupational status: disabled Current gender identity: Male Physical Exam HENMT: COMMON NORMALS: normocephalic, atraumatic and hearing grossly normal bilaterally HEAD & SCALP: normocephalic and atraumatic Resp: COMMON NORMALS: normal respiratory effort, No retractions, No use of accessory muscles and clear to auscultation bilaterally AUSCULTATION: clear to auscultation bilaterally Cardio: COMMON NORMALS: regular rate, regular rhythm and No murmurs present (Cardio) RATE: regular rate RHYTHM: regular rhythm GI: COMMON NORMALS: Soft to palpation and No hepatosplenomegaly present AUSCULTATION: Yes normoactive bowel sounds PALPATION: Yes Soft to palpation, No Tenderness to palpation present (GI), No Guarding due to palpation present (GI) and Yes No hepatosplenomegaly present Extremity: OTHER: Chronic venous stasis edema with 2+ edema of the lower extremities he has chronic venous stasis edema of the upper extremities as well. Does not appear to have an acute cellulitis. Skin: COMMON NORMALS: no rashes or lesions noted GENERAL SKIN EXAM: no rashes or lesions noted Course Vital Signs: Vital signs: Vital Signs Temperature 97.5 F L 11/04/22 10:27 Pulse Rate 76 11/04/22 15:40 Respiratory Rate 14 11/04/22 15:40 Blood Pressure 116/77 11/04/22 15:40 Pulse Oximetry 95 11/04/22 15:40 Oxygen Delivery Me thod 11/04/22 12:35 [facility] [place] - General Adult Medical Decision Making Patient has acute hepatic encephalopathy. His ammonia level is markedly elevated at over 270. He is not able to follow any directions we will place an NG and give lactulose by NG tube. Chart reviewed. CT head did not show any acute changes no evidence of stroke. He has no signs of sepsis his white count is normal discussed with hospitalist will admit to ICU. Orders written patient also noted to have acute kidney injury and mild cystitis. Medical Records I reviewed the patient's medical records. Lab Data I reviewed the patient's lab results. 11/04/22 10:45 11/04/22 10:45 Radiology Impressions Chest X-Ray 11/04/22 10:49 IMPRESSION: 1. No acute cardiopulmonary finding. Abdomen/Pelvis CT 11/04/22 11:44 IMPRESSION:Images are degraded due to beam hardening artifact from body habitus. 1. Mild rectosigmoid constipation. Sigmoid diverticulosis. No evidence of acute diverticulitis. 2. No evidence of high-grade small or large bowel obstruction. 3. Small esophageal hiatal hernia with periesophageal varices. 4. Small bowel is decompressed. 5. Normal appendix in the RIGHT lower quadrant. 6. Weir catheter. 7. Cirrhotic liver with splenomegaly and upper abdominal and paraesophageal varices. 8. Mild diffuse body wall anasarca. 9. Bibasilar atelectasis with trace pleural fluid. Head CT 11/04/22 11:45 IMPRESSION: 1. No evidence of intracranial hemorrhage or mass effect. 2. Mild small vessel changes. Mild parenchymal volume loss. 3. No acute intracranial findings. Laboratory Results WBC 5.9 10^3/uL (4.0-10.0) 11/04/22 10:45 RBC 3.34 10^6/uL (4.1-5.3) L 11/04/22 10:45 Hgb 12.6 g/dL (11.7-16.6) 11/04/22 10:45 Hct 38.8 % (42.0-52.0) L 11/04/22 10:45 MCV 116.2 fl (80-94) H 11/04/22 10:45 MCH 37.7 pg (28.0-34.0) H 11/04/22 10:45 MCHC 32.5 g/dL (30.0-36.0) 11/04/22 10:45 RDW 13.6 % (12.1-15.1) 11/04/22 10:45 Plt Count 180 10^3/cmm (130-400) 11/04/22 10:45 MPV 10.4 fL (7.4-10.4) 11/04/22 10:45 Neut % (Auto) 69.7 % 11/04/22 10:45 Lymph % (Auto) 11.8 % 11/04/22 10:45 [place] % (Auto) 10.3 % 11/04/22 10:45 Eos % (Auto) 6.9 % 11/04/22 10:45 Baso % (Auto) 1.0 % 11/04/22 10:45 Neut # (Auto) 4.12 10^3/uL (1.8-7.7) 11/04/22 10:45 Lymph # (Auto) 0.7 10^3/uL (0.8-4.8) L 11/04/22 10:45 [place] # (Auto) 0.6 10^3/uL (0.2-0.9) 11/04/22 10:45 Eos # (Auto) 0.4 10^3/uL (0.0-0.8) 11/04/22 10:45 Baso # (Auto) 0.1 10^3/uL (0.0-0.1) 11/04/22 10:45 Nucleated RBC % (auto) 0 % 11/04/22 10:45 Nucleated RBCs # 0.0 /100WBC 11/04/22 10:45 Specimen Type Arterial 11/04/22 11:12 Sample Site Brachial, right 11/04/22 11:12 ABG pH 7.44 (7.35-7.45) 11/04/22 11:12 ABG pCO2 51.8 mmHg (35-45) H 11/04/22 11:12 ABG pO2 77.1 mmHg (80.0-100.0) L 11/04/22 11:12 ABG HCO3 35.3 mmol/L (22-26) H 11/04/22 11:12 ABG O2 Saturation 95.1 11/04/22 11:12 ABG Base Excess 9.6 mmol/L (-2.0-2.0) H 11/04/22 11:12 Marcelo Test N/a 11/04/22 11:12 A-a O2 Gradient 1.0 mmHg (5-10) L 11/04/22 11:12 Hematocrit 39.3 % (42-52) L 11/04/22 11:12 Hgb O2 Saturation 92.1 % (95-100) L 11/04/22 11:12 Carboxyhemoglobin 2.4 %THgb (0.4-20.1) 11/04/22 11:12 Methemoglobin 0.7 % (0.4-1.5) 11/04/22 11:12 Total Hemoglobin 12.8 g/dL (14-18) L 11/04/22 11:12 Sodium 138.0 mmol/L (131-143) 11/04/22 11:12 Potassium 4.6 mmol/L (3.5-5.0) 11/04/22 11:12 Glucose 125.0 mg/dL (70-115) H 11/04/22 11:12 Ionized Calcium 1.2 mmol/L (1.1-1.4) 11/04/22 11:12 O2 Delivery Device Room air 11/04/22 11:12 FiO2 21.0 % 11/04/22 11:12 Railroad Track Inspector ID Amh 11/04/22 11:12 Sodium 136 mmol/L (136-145) 11/04/22 10:45 Potassium 4.9 mmol/L (3.5-5.1) 11/04/22 10:45 Chloride 95 mmol/L (98-107) L 11/04/22 10:45 Carbon Dioxide 33 mmol/L (22-29) H 11/04/22 10:45 Anion Gap 12.9 (5-19) 11/04/22 10:45 BUN 47 mg/dL (6-20) H 11/04/22 10:45 Creatinine 2.1 mg/dL (0.7-1.2) H 11/04/22 10:45 GFR Calculation 32.6 mL/min (90-130) L 11/04/22 10:45 Glucose 123 mg/dL (65-115) H 11/04/22 10:45 Calculated Osmolality 296 mOsm/kg (285-295) H 11/04/22 10:45 Lactic Acid 1.4 mmol/L (0.5-2.2) 11/04/22 10:45 Calcium 9.3 mg/dL (8.5-10.5) 11/04/22 10:45 Magnesium 2.1 mg/dL (1.7-2.3) 11/04/22 10:45 Total Bilirubin 1.5 mg/dL (0.15-1.2) H 11/04/22 10:45 AST 25 U/L (0-40) 11/04/22 10:45 ALT 23 U/L (0-41) 11/04/22 10:45 Alkaline Phosphatase 109 U/L (40-130) 11/04/22 10:45 Ammonia 273 umol/L (16-60) H 11/04/22 11:12 Creatine Kinase 38 U/L (39-308) L 11/04/22 10:45 Troponin T Baseline 53 ng/L (0-15) H 11/04/22 10:45 Troponin T 120 Minute 52.99 ng/L (0-15) H 11/04/22 12:58 Delta Troponin T -0.01 ABS# (0-10) L 11/04/22 12:58 Total Protein 7.0 g/dL (6.6-8.7) 11/04/22 10:45 Albumin 3.8 g/dL (3.5-5.2) 11/04/22 10:45 Globulin 3.2 g/dL (1.3-4.6) 11/04/22 10:45 Lipase 18 U/L (13-60) 11/04/22 10:45 Urine Color Yellow (Yellow) 11/04/22 10:45 Urine Appearance Hazy (CLEAR) A 11/04/22 10:45 Urine pH 7 (5-7) 11/04/22 10:45 Ur Specific [place] 1.010 (1.005-1.030) 11/04/22 10:45 Urine Protein Neg (Negative) 11/04/22 10:45 Urine Glucose (UA) Norm (Normal) 11/04/22 10:45 Urine Ketones Negative (Negative) 11/04/22 10:45 Urine Blood 3+ (Negative) H 11/04/22 10:45 Urine Nitrate Negative (Negative) 11/04/22 10:45 Urine Bilirubin Neg (Negative) 11/04/22 10:45 Urine Urobilinogen Norm mg/dL (Negative) 11/04/22 10:45 Ur Leukocyte Esterase 2+ (Negative) H 11/04/22 10:45 Urine RBC 5-10 /hpf (0-2) H 11/04/22 10:45 Urine WBC 5-10 /hpf (0-5) H 11/04/22 10:45 Ur Squamous Epith Cells None /hpf (0-5) 11/04/22 10:45 Amorphous Sediment Not Reportable 11/04/22 10:45 Urine Bacteria Trace /hpf (NONE) 11/04/22 10:45 Urine Yeast 2+ /hpf H 11/04/22 10:45 Serum Ketones Negative (Negative) 11/04/22 10:45 Discharge Plan Discharge Patient Disposition: Admitted As Inpatient Admit Provider: Wanda Salazar Clinical Impression: Acute hepatic encephalopathy, End-stage liver disease, Contraindication to deep vein thrombosis (DVT) prophylaxis, Acute kidney injury Condition: Stable Coding Level of 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
[2022-11-04 11:00] LABS: Basophils # 0.1 10^3/uL (0.0-0.1); Eosinophils # 0.4 10^3/uL (0.0-0.8); Eosinophils % 6.9 %; Hematocrit 38.8 % (42.0-52.0); Hemoglobin 12.6 g/dL (11.7-16.6); Lymphocytes # 0.7 10^3/uL (0.8-4.8); Lymphocytes % 11.8 %; Mean Corpuscular HGB Conc 32.5 g/dL (30.0-36.0); Mean Corpuscular Hemoglobin 37.7 pg (28.0-34.0); Mean Corpuscular Volume 116.2 fl (80-94); Mean Platelet Volume 10.4 fL (7.4-10.4); Monocytes # 0.6 10^3/uL (0.2-0.9); Monocytes % 10.3 %; Neutrophils # 4.12 10^3/uL (1.8-7.7); Neutrophils % 69.7 %; Nucleated Red Blood Cells % 0 %; Platelet Count 180 10^3/cmm (130-400); Red Blood Count 3.34 10^6/uL (4.1-5.3); Red Cell Distribution Width 13.6 % (12.1-15.1); White Blood Count 5.9 10^3/uL (4.0-10.0)
--- NOTE | 2022-11-04 11:04 | ECG_ITS ---
[facility] Test Date: 2022-11-04 Pat Name: Yosvany Soto Department: Room: Gender: Male Assistant Credit Manager: : 1965 Requested By: Ghassan Brooks Order Number: [id number] Cade MD: Odin Eddy M.D. Measurements Intervals [place] Rate: 66 P: 0 AK: 0 QRS: 98 QRSD: 84 T: 59 QT: 446 QTc: 469 Interpretive Statements ATRIAL FIBRILLATION BORDERLINE RIGHT AXIS DEVIATION [QRS AXIS > 90] LOW QRS VOLTAGE IN PRECORDIAL LEADS [QRS DEFLECTION < 1.0 mV IN CHEST LEADS] ANTEROSEPTAL MYOCARDIAL INFARCTION , OF INDETERMINATE AGE [40+ ms Q WAVE IN V1-V4] Compared to ECG 10/22/2022 00:01:41 Ventricular premature complex(es) no longer present Aberrant conduction of supraventricular beat(s) no longer present Myocardial infarct finding still present Electronically Signed On 11-04-2022 19:07:08 SUSTAINABILITY PURCHASING AGENT by Odin Eddy M.D. [id number]
[2022-11-04 11:12] LABS: Ketone (Acetest) Serum Negative (Negative)
[2022-11-04 11:18] LABS: Add Urine Microscopic? YES; Bilirubin Urine Neg (Negative); Blood Urine 3+ (Negative); Glucose Urine UA Norm (Normal); Ketones Urine Negative (Negative); Leukocyte Esterase Urine 2+ (Negative); Nitrate Urine Negative (Negative); Protein Urine Neg (Negative); Urine Appearance Hazy (CLEAR); Urine Color Yellow (Yellow); Urobilinogen Urine Norm (Negative); pH Urine 7 (5-7)
[2022-11-04 11:19] LABS: Bacteria Urine TRACE /hpf
[2022-11-04 11:20] LABS: Troponin(5th) Baseline 53 ng/L (0-15)
[2022-11-04 11:21] LABS: Add Urine Culture? Yes; Alanine Aminotransferase 23 U/L (0-41); Albumin Level 3.8 g/dL (3.5-5.2); Alkaline Phosphatase 109 U/L (40-130); Anion Gap 12.9 (5-19); Aspartate Amino Transferase 25 U/L (0-40); Blood Urea Nitrogen 47 mg/dL (6-20); Calcium 9.3 mg/dL (8.5-10.5); Carbon Dioxide 33 mmol/L (22-29); Chloride 95 mmol/L (98-107); Creatine Phosphokinase 38 U/L (39-308); Globulin 3.2 g/dL (1.3-4.6); Glomerular Filtration Rate 32.6 mL/min (90-130); Glucose 123 mg/dL (65-115); Lactic Sepsis W/Reflex 1.4 mmol/L (0.5-2.2); Lipase 18 U/L (13-60); Magnesium 2.1 mg/dL (1.7-2.3); Osmolality Calculated 296 mOsm/kg (285-295); Potassium 4.9 mmol/L (3.5-5.1); Sodium 136 mmol/L (136-145); Total Bilirubin 1.5 mg/dL (0.15-1.2)
--- NOTE | 2022-11-04 11:22 | PC.PHAR ---
pt is from [facility] [phone]-per oscar nurse at [facility] states the pt didnt have any medications today-pt had a prednisone written 10/30/22 5mg daily for 2 days then 2.5mg daily for 2 days then stop medication not on mar
[2022-11-04 11:23] LABS: ABG PCO2 51.8 mmHg (35-45); ABG PH Result 7.44 (7.35-7.45); Arterial Blood Gas Hematocrit 39.3 % (42-52); Base Excess ABG 9.6 mmol/L (-2.0-2.0); Blood Gas Operator Identificat AMH; Blood Gas Sample Site Brachial, right; Blood Gas Sample Type Arterial; Carboxyhemoglobin 2.4 %THgb (0.4-20.1); HCO3 ABG 35.3 mmol/L (22-26); HGB O2 Sat 92.1 % (95-100); Ionized Calcium Level - ABG 1.2 mmol/L (1.1-1.4); Methemoglobin 0.7 % (0.4-1.5); Oxygen Device ROOM AIR; Oxygen Saturation ABG 95.1; PO2 ABG 77.1 mmHg (80.0-100.0); Potassium Level - ABG 4.6 mmol/L (3.5-5.0); Total Hemoglobin 12.8 g/dL (14-18)
--- NOTE | 2022-11-04 11:44 | CT_ITS ---
WS: [id number] CT ABDOMEN PELVIS TECHNIQUE: Noncontrast CT of the abdomen and pelvis with coronal and sagittal reformatted images. CLINICAL INFORMATION: abd distention/AMS COMPARISON: CT abdomen pelvis October 22, 2022 DLP: 1818.[address] scans at [facility] use at least one of these dose optimization techniques: automated e xposure control; mA and/or kV adjustment per patient size (includes targeted exams where dose is matc hed to clinical indication); or iterative reconstruction. FINDINGS: Images are degraded due to beam hardening artifact from body habitus. Mild rectosigmoid constipation. Weir catheter. Sigmoid diverticulosis. No evidence of acute divertic ulitis. No evidence of high-grade small or large bowel obstruction. Small esophageal hiatal hernia. P araesophageal varices. A few tiny noncalcified nodules in the lung bases. Bibasilar atelectasis. Trac e pleural fluid in the lung bases. Cirrhotic configuration to the noncontrast liver. Mild splenomegaly. Upper abdominal and paraesophage al varices. Diffuse body wall anasarca. Atrophic noncontrast pancreas appears normal. Splenic artery calcification. Adrenal glands are normal. No hydronephrosis in either kidney. Aortic calcification. S light anterolisthesis L4 on L5. Disc space narrowing worse at L5-S1. Spondylolysis L4-L5. Normal charly tia abdominal aorta. CT/CT abdomen pelvis wo con [id number] IMPRESSION:Images are degraded due to beam hardening artifact from body habitus . 1. Mild rectosigmoid constipation. Sigmoid diverticulosis. No evidence of acut e diverticulitis. 2. No evidence of high-grade small or large bowel obstruction. 3. Small esophageal hiatal hernia with periesophageal varices. 4. Small bowel is decompressed. 5. Normal appendix in the RIGHT lower quadrant. 6. Wier catheter. 7. Cirrhotic liver with splenomegaly and upper abdominal and paraesophageal va rices. 8. Mild diffuse body wall anasarca. 9. Bibasilar atelectasis with trace pleural fluid.
--- NOTE | 2022-11-04 11:45 | CT_ITS ---
WS: [id number] CT HEAD TECHNIQUE: Noncontrast CT of the head obtained from the skullbase to the vertex. CLINICAL INFORMATION: AMS COMPARISON: 12/23/21 DLP: 1162.[address] scans at [facility] use at least one of these dose optimization techniques: automated e xposure control; mA and/or kV adjustment per patient size (includes targeted exams where dose is matc hed to clinical indication); or iterative reconstruction. FINDINGS: No evidence of intracranial hemorrhage or mass effect. Ventricular system and basal cisterns are velásquez nt. Mild small vessel changes with mild parenchymal volume loss. Vascular calcification. No extra-axi al fluid collections. No evidence of mass or mass effect. Paranasal sinuses and mastoid air cells are well aerated. .Normal visualized soft tissues. CT/CT head wo con* [id number] IMPRESSION: 1. No evidence of intracranial hemorrhage or mass effect. 2. Mild small vessel changes. Mild parenchymal volume loss. 3. No acute intracranial findings.
[2022-11-04 11:46] LABS: Ammonia 273 umol/L (16-60)
[2022-11-04 13:36] LABS: Troponin 5 2HR 52.99 ng/L (0-15)
[2022-11-04 13:37] LABS: Troponin 5 2HR Delta -0.01 ABS# (0-10)
[2022-11-04] MEDS: cefTRIAXone 1,000 MG in sodium chloride 0.9% (plus) 50 ML 100 MG IV (14:39)
--- NOTE | 2022-11-04 15:21 | PC.NURSE ---
ATTEMPTED TO PLACE NG TUBE PT TOLERATED POORLY DR. BECKWITH WAS NOTIFIED AWAITING ORDERS FOR SEDATION.
--- NOTE | 2022-11-04 15:38 | PM.HP ---
Providers/Chief Complaint Admitting Physician: Wanda Salazar MD Primary Care Provider: Yosvany Segovia MD Chief Complaint: AMS History of Present Illness Yosvany Soto is a 57 year old male who presented to the emergency room via EMS with a chief complaint of alteration in mental status. He has a history of liver disease. He was just hospitalized from October 21 through October 30. During that stay presenting complaints included left ankle pain and significant rash. Patient was treated for cellulitis involving axilla, lower extremities and groin as well as acute on chronic CHF, acute on chronic COPD among other diagnoses. He had a negative fluid balance of 17 L documented during the course of the hospital stay and weight loss of 13 kg documented. He was treated with IV Bumex and metolazone initially and transition to oral diuresis with an increased dose of bumetanide from 1 mg to 2 mg twice a day and prior dose of spironolactone prior to discharge. Work-up during the course of hospital stay demonstrated CT findings of varices for which he was started on propranolol. He has had to have intervention on the varices in the past. He received antibiotics in the form of doxycycline and vancomycin for cellulitis along with nystatin. He was further treated with prednisone for COPD exacerbation. He received twice daily rifaximin and lactulose while here. At discharge he was sent to [facility] for ongoing care and rehabilitation. Rifaximin was continued at discharge. Its not known if he has had at the last few days. Today he was sent back to the emergency room due to alteration in mental status that is documented in records as being noted around 7 AM today. I am not able to get any history directly from him. He has a known history of chronic liver disease with prior episodes of hepatic encephalopathy among other diagnoses as listed below. Ammonia level was checked and was significantly elevated beyond usual levels at 273. BUN and creatinine were slightly up from prior values at 47/2.1 (42/1.6 on October 30) and urinalysis was suggestive of possible infection. Patient received NG tube with a dose of lactulose and Rocephin in the emergency room. Request was made for admission. Patient's mother arrived after patient had been transferred to the ICU. According to her he was in his usual mental state yesterday. She saw him in the evening leaving around 5 PM before 6 PM [employer] service. He was able to converse at that time. Today he keeps repeating the same thing over and over when he does talk. He has not been cooperative with attempts to try to get him to take oral medications. Patient's mother indicates that he has gotten confused like this in the past with urinary tract infections. Review of Systems General: Reports: ROS unobtainable due to mental status Medications/Allergies Home Medications Medication Instructions Recorded Confirmed Last Taken Type vitamin B complex (Vitamins B 1 tab PO DAILY 01/04/20 11/04/22 11/03/22 History Complex tablet) tramadol 50 mg tablet 100 mg PO DAILY@05/05/20 11/04/22 11/03/22 History folic acid 1 mg tablet 1 mg PO DAILY@08/23/20 11/04/22 11/03/22 History fluticasone propionate 50 1 - 2 spray intranasal DAILY PRN 09/08/20 11/04/22 07/09/21 History mcg/actuation nasal Allergy Symptoms spray,suspension albuterol sulfate 90 mcg/actuation 2 puff inhalation Q4H PRN 12/11/20 11/04/22 07/09/21 History aerosol inhaler shortness of breath/wheezing vitamins A,C,N-jtyo-mvsftf 14,320 1 cap PO DAILY@02/11/21 11/04/22 11/03/22 History unit-226 mg-200 unit capsule (PreserVision AREDS) diltiazem HCl 120 mg 120 mg PO DAILY@04/24/21 11/04/22 11/03/22 History capsule,extended release 24 hr (Cartia XT) cetirizine 10 mg tablet (Zyrtec) 10 mg PO DAILY@05/24/21 11/04/22 11/03/22 History levothyroxine 50 mcg tablet 50 mcg PO QAM 08/15/21 11/04/22 11/03/22 History rifaximin 550 mg tablet (Xifaxan) 550 mg PO BID 08/15/21 11/04/22 11/03/22 History midodrine 5 mg tablet 5 mg PO TID 09/01/21 11/04/22 11/03/22 History pantoprazole 40 mg tablet,delayed 40 mg PO DAILY 09/01/21 11/04/22 11/03/22 History release potassium chloride 20 mEq 20 meq PO BID@,09/01/21 11/04/22 11/03/22 History tablet,extended release gabapentin 100 mg capsule 100 mg PO TID 10/20/21 11/04/22 11/03/22 History thiamine HCl (vitamin B1) 50 mg 50 mg PO DAILY 11/29/21 11/04/22 11/03/22 History tablet ferrous sulfate 325 mg (65 mg 325 mg PO DAILY 12/24/21 11/04/22 11/03/22 History iron) tablet (iron) levetiracetam 500 mg tablet 1,000 mg PO BID 12/24/21 11/04/22 11/03/22 History Diabetic Shoe of RT foot #1 ea 01/29/22 11/04/22 Unknown Rx Repairs and Adjustments to #1 ea 02/07/22 11/04/22 Unknown Rx brace/boot [place] Boot to left #1 ea 03/22/22 11/04/22 Unknown Rx bumetanide 1 mg tablet 2 mg PO BID #180 tabs 10/30/22 11/04/22 11/03/22 Rx Lactobacillus rhamnosus GG 10 1 cap PO DAILY 11/04/22 11/04/22 Unknown History billion cell capsule (Culturelle) acetaminophen 325 mg tablet 325 - 650 mg PO Q4H PRN Pain 11/04/22 11/04/22 Unknown History (Tylenol) alfuzosin 10 mg tablet,extended 10 mg PO DAILY@07 11/04/22 11/04/22 11/03/22 History release 24 hr bisacodyl 10 mg rectal suppository 10 mg [place] DAILY PRN Constipation 11/04/22 11/04/22 Unknown History (Dulcolax (bisacodyl)) ibuprofen 200 mg capsule (Advil 200 mg PO DAILY 11/04/22 11/04/22 11/03/22 History Liqui-Gel) magnesium hydroxide 400 mg/5 mL 30 ml PO DAILY PRN Constipation 11/04/22 11/04/22 Unknown History oral suspension (Milk of Magnesia) nystatin 100,000 unit/gram topical See Rx Instructions .Route .COMPLEX 11/04/22 11/04/22 Unknown History powder (Nyamyc) ondansetron HCl 4 mg tablet 4 mg PO Q4H PRN Nausea And Vomiting 11/04/22 11/04/22 Unknown History propranolol 20 mg tablet 20 mg PO BID@07,19 11/04/22 11/04/22 11/03/22 History sodium phosphates 19 gram-7 118 ml WV DAILY PRN Constipation 11/04/22 11/04/22 Unknown History gram/118 mL enema (Fleet Enema) spironolactone 50 mg tablet 50 mg PO DAILY@07 11/04/22 11/04/22 11/03/22 History Allergies Allergy/AdvReac Type Severity Reaction Status Date / Time Penicillins Allergy ALGY-Difficulty Verified 11/04/22 10:57 Breathing Sulfa (Sulfonamide Allergy Unknown Verified 11/04/22 10:57 Antibiotics) PFSH Acute PFSH: Medical History (Updated 11/04/22 @ 18:26 by Wanda Salazar MD) Alcoholic cirrhosis of liver with ascites Anasarca Anemia Ataxia Atrial fibrillation and flutter BPH loc w urin obs/LUTS C. difficile diarrhea Charcot's arthropathy left foot CHF (congestive heart failure) Echocardiogram done in 2019 shows an EF of 40 to 45% with hypokinetic septum, anteroseptum and inferior wall, biatrial enlargement Chronic hyponatremia varies with volume status Chronic kidney disease COPD (chronic obstructive pulmonary disease) Encephalopathy, hepatic End-stage liver disease not a candidate for transplant or tips at last evaluation Erectile dysfunction Fracture of fourth metatarsal bone of left foot Fracture of second metatarsal bone of left foot Fracture of third metatarsal bone of left foot Hepatorenal syndrome History of abdominal paracentesis History of peritonitis Hx of esophageal varices Hypertension Hypothyroidism Morbid obesity Neuropathy Non-pressure chronic ulcer of other part of left foot limited to breakdown of skin Occult blood in stools Peritoneal dialysis catheter in situ Removed in 05/2021 due to recurrent bacterial peritonitis Peyronie disease Pleural effusion associated with hepatic disorder Pneumonia Portal hypertension PVD (peripheral vascular disease) Seizure Stereotyped movements Upper gastrointestinal hemorrhage due to gastritis EGD with pyloric ulcer in 05/2021 Surgical History (Updated 11/04/22 @ 16:06 by Wanda Salazar MD) H/O colonoscopy H/O esophagogastroduodenoscopy History of tonsillectomy Hx of umbilical hernia repair Hx of vasectomy Status post surgery (07/05/20) peritoneal catheter for ascites Family History Grandfather CAD (coronary artery disease) Grandmother CAD (coronary artery disease) Cancer Father Cancer Denies family history of Anesthesia complication Bleeding disorder Social History (Updated 11/04/22 @ 16:12 by Wanda Salazar MD) Housing: Alf Marital status: Current occupational status: disabled Current gender identity: Male Other [facility] information: Supplemental [facility] Information: Unable to confirm or deny if patient continues to smoke or drink alcohol at this time due to alteration in mental status. According to his mother she does not think that he continues to drink. He does smoke off-and-on but she cannot speak to recent. Old records were reviewed and past medical history and problem list updated to reflect documentation and records with removal of duplicates. Patient had been living on his own with home health prior to skilled placement being arranged after recent admission. Vitals/I&O/Wt Last Vital Signs Temp 97.5 F L 11/04/22 10:27 Pulse 83 11/04/22 15:20 Resp 19 H 11/04/22 15:20 BP 115/69 11/04/22 15:20 Pulse Ox 95 11/04/22 15:20 O2 Del Method 11/04/22 12:35 11/04/22 11/04/22 11/04/22 06:59 14:59 22:59 Intake Total 50 / 50 Balance 50 / 50 Physical Exam Narrative: Patient is lethargic, will arouse with stimulation but does not answer questions and does not cooperative fully with examination. Difficult to really direct. Normocephalic, anicteric, slightly muddy sclera. Pupils are sluggishly reactive bilaterally. Nasopharynx is clear. Oropharynx with dry mucous membranes. Posterior pharynx clear. Neck is large and patient has a grossly normal range of motion moving his head in all directions during attempts to fend off examination. Lungs are clear to auscultation bilaterally although decreased at both bases. He has a regular rhythm, distant heart sounds. Abdomen is soft. Not obviously tender to palpation, not tympanic. Weir catheter is noted in place. External genitalia remain edematous. Pitting edema noted to bilateral lower extremities though all appears significantly improved compared to prior examinations last hospital stay. Right lower extremity is more erythematous and slightly warmer than left lower extremity but again appears grossly improved. Still with erythema in both axilla with some caked nystatin powder noted he has increased vascularity on his cheeks. Scattered ecchymoses on both upper extremities in particular and across his upper chest. Erythema in groin and pannus remains to a degree. Patient has tremor of both upper extremities noted more apparent fully awake though still present at rest. Data 11/04/22 10:45 11/04/22 10:45 Other Labs: Radiology Impressions Chest X-Ray 11/04/22 10:49 IMPRESSION: 1. No acute cardiopulmonary finding. Abdomen/Pelvis CT 11/04/22 11:44 IMPRESSION:Images are degraded due to beam hardening artifact from body habitus. 1. Mild rectosigmoid constipation. Sigmoid diverticulosis. No evidence of acute diverticulitis. 2. No evidence of high-grade small or large bowel obstruction. 3. Small esophageal hiatal hernia with periesophageal varices. 4. Small bowel is decompressed. 5. Normal appendix in the RIGHT lower quadrant. 6. Weir catheter. 7. Cirrhotic liver with splenomegaly and upper abdominal and paraesophageal varices. 8. Mild diffuse body wall anasarca. 9. Bibasilar atelectasis with trace pleural fluid. Head CT 11/04/22 11:45 IMPRESSION: 1. No evidence of intracranial hemorrhage or mass effect. 2. Mild small vessel changes. Mild parenchymal volume loss. 3. No acute intracranial findings. Laboratory Results WBC 5.9 10^3/uL (4.0-10.0) 11/04/22 10:45 RBC 3.34 10^6/uL (4.1-5.3) L 11/04/22 10:45 Hgb 12.6 g/dL (11.7-16.6) 11/04/22 10:45 Hct 38.8 % (42.0-52.0) L 11/04/22 10:45 MCV 116.2 fl (80-94) H 11/04/22 10:45 MCH 37.7 pg (28.0-34.0) H 11/04/22 10:45 MCHC 32.5 g/dL (30.0-36.0) 11/04/22 10:45 RDW 13.6 % (12.1-15.1) 11/04/22 10:45 Plt Count 180 10^3/cmm (130-400) 11/04/22 10:45 MPV 10.4 fL (7.4-10.4) 11/04/22 10:45 Neut % (Auto) 69.7 % 11/04/22 10:45 Lymph % (Auto) 11.8 % 11/04/22 10:45 Tama % (Auto) 10.3 % 11/04/22 10:45 Eos % (Auto) 6.9 % 11/04/22 10:45 Baso % (Auto) 1.0 % 11/04/22 10:45 Neut # (Auto) 4.12 10^3/uL (1.8-7.7) 11/04/22 10:45 Lymph # (Auto) 0.7 10^3/uL (0.8-4.8) L 11/04/22 10:45 [place]ama # (Auto) 0.6 10^3/uL (0.2-0.9) 11/04/22 10:45 Eos # (Auto) 0.4 10^3/uL (0.0-0.8) 11/04/22 10:45 Baso # (Auto) 0.1 10^3/uL (0.0-0.1) 11/04/22 10:45 Nucleated RBC % (auto) 0 % 11/04/22 10:45 Nucleated RBCs # 0.0 /100WBC 11/04/22 10:45 Specimen Type Arterial 11/04/22 11:12 Sample Site Brachial, right 11/04/22 11:12 ABG pH 7.44 (7.35-7.45) 11/04/22 11:12 ABG pCO2 51.8 mmHg (35-45) H 11/04/22 11:12 ABG pO2 77.1 mmHg (80.0-100.0) L 11/04/22 11:12 ABG HCO3 35.3 mmol/L (22-26) H 11/04/22 11:12 ABG O2 Saturation 95.1 11/04/22 11:12 ABG Base Excess 9.6 mmol/L (-2.0-2.0) H 11/04/22 11:12 Marcelo Test N/a 11/04/22 11:12 A-a O2 Gradient 1.0 mmHg (5-10) L 11/04/22 11:12 Hematocrit 39.3 % (42-52) L 11/04/22 11:12 Hgb O2 Saturation 92.1 % (95-100) L 11/04/22 11:12 Carboxyhemoglobin 2.4 %THgb (0.4-20.1) 11/04/22 11:12 Methemoglobin 0.7 % (0.4-1.5) 11/04/22 11:12 Total Hemoglobin 12.8 g/dL (14-18) L 11/04/22 11:12 Sodium 138.0 mmol/L (131-143) 11/04/22 11:12 Potassium 4.6 mmol/L (3.5-5.0) 11/04/22 11:12 Glucose 125.0 mg/dL (70-115) H 11/04/22 11:12 Ionized Calcium 1.2 mmol/L (1.1-1.4) 11/04/22 11:12 O2 Delivery Device Room air 11/04/22 11:12 FiO2 21.0 % 11/04/22 11:12 Project Management Manager ID Amh 11/04/22 11:12 Sodium 136 mmol/L (136-145) 11/04/22 10:45 Potassium 4.9 mmol/L (3.5-5.1) 11/04/22 10:45 Chloride 95 mmol/L (98-107) L 11/04/22 10:45 Carbon Dioxide 33 mmol/L (22-29) H 11/04/22 10:45 Anion Gap 12.9 (5-19) 11/04/22 10:45 BUN 47 mg/dL (6-20) H 11/04/22 10:45 Creatinine 2.1 mg/dL (0.7-1.2) H 11/04/22 10:45 GFR Calculation 32.6 mL/min (90-130) L 11/04/22 10:45 Glucose 123 mg/dL (65-115) H 11/04/22 10:45 Calculated Osmolality 296 mOsm/kg (285-295) H 11/04/22 10:45 Lactic Acid 1.4 mmol/L (0.5-2.2) 11/04/22 10:45 Calcium 9.3 mg/dL (8.5-10.5) 11/04/22 10:45 Magnesium 2.1 mg/dL (1.7-2.3) 11/04/22 10:45 Total Bilirubin 1.5 mg/dL (0.15-1.2) H 11/04/22 10:45 AST 25 U/L (0-40) 11/04/22 10:45 ALT 23 U/L (0-41) 11/04/22 10:45 Alkaline Phosphatase 109 U/L (40-130) 11/04/22 10:45 Ammonia 273 umol/L (16-60) H 11/04/22 11:12 Creatine Kinase 38 U/L (39-308) L 11/04/22 10:45 Troponin T Baseline 53 ng/L (0-15) H 11/04/22 10:45 Troponin T 120 Minute 52.99 ng/L (0-15) H 11/04/22 12:58 Delta Troponin T -0.01 ABS# (0-10) L 11/04/22 12:58 Total Protein 7.0 g/dL (6.6-8.7) 11/04/22 10:45 Albumin 3.8 g/dL (3.5-5.2) 11/04/22 10:45 Globulin 3.2 g/dL (1.3-4.6) 11/04/22 10:45 Lipase 18 U/L (13-60) 11/04/22 10:45 Urine Color Yellow (Yellow) 11/04/22 10:45 Urine Appearance Hazy (CLEAR) A 11/04/22 10:45 Urine pH 7 (5-7) 11/04/22 10:45 Ur Specific [place] 1.010 (1.005-1.030) 11/04/22 10:45 Urine Protein Neg (Negative) 11/04/22 10:45 Urine Glucose (UA) Norm (Normal) 11/04/22 10:45 Urine Ketones Negative (Negative) 11/04/22 10:45 Urine Blood 3+ (Negative) H 11/04/22 10:45 Urine Nitrate Negative (Negative) 11/04/22 10:45 Urine Bilirubin Neg (Negative) 11/04/22 10:45 Urine Urobilinogen Norm mg/dL (Negative) 11/04/22 10:45 Ur Leukocyte Esterase 2+ (Negative) H 11/04/22 10:45 Urine RBC 5-10 /hpf (0-2) H 11/04/22 10:45 Urine WBC 5-10 /hpf (0-5) H 11/04/22 10:45 Ur Squamous Epith Cells None /hpf (0-5) 11/04/22 10:45 Amorphous Sediment Not Reportable 11/04/22 10:45 Urine Bacteria Trace /hpf (NONE) 11/04/22 10:45 Urine Yeast 2+ /hpf H 11/04/22 10:45 Serum Ketones Negative (Negative) 11/04/22 10:45 Micro: Microbiology 11/04/22 11:12 Blood Culture - Preliminary Blood SPECIMEN COLLECTED 11/04/22 10:45 Blood Culture - Preliminary Blood SPECIMEN COLLECTED A&P Assessment and plan (1) Acute hepatic encephalopathy: Current ammonia level is the highest that I see he has had before at 273. Previous high ammonia level was 175 from August 2021 with most recent comparative value from December 2021 at 88. Medication list indicates he was on rifaximin upon recent discharge and to mother's knowledge he was getting it. CT imaging with evidence of constipation. Levels are currently critical. (2) Urinary tract infection: Present on admission, acute cystitis with microscopic hematuria (3) Chronic kidney disease: Stage IIIb with increased BUN and creatinine from baseline secondary to volume depletion. This is either from lack of oral intake in the setting of acute hepatic encephalopathy or from increased oral diuresis to facilitate long-term volume management. (4) End-stage liver disease: Alcoholic liver disease with cirrhosis including ascites, esophageal varices, splenomegaly, some elevation in liver enzymes, hypoproteinemia and hepatic encephalopathy. Current MELD score 18. (5) CHF (congestive heart failure): Chronic, not acutely acute although was discharged from the acute hospitalization, last week with reduced ejection fraction (6) Atrial fibrillation and flutter: Chronic, rate controlled, not a candidate for chronic anticoagulation secondary to known varices and risk of bleeding (7) Esophageal varices: Chronic, started on propranolol last hospital stay, has required invasive intervention in the past per mother (8) BPH loc w urin obs/LUTS: Chronically on alfuzosin (9) COPD (chronic obstructive pulmonary disease): Not currently acute though has recently been on treatment with steroids. Appears to have chronic hypoxic and hypercapnic respiratory failure likely related to obesity hypoventilation along with COPD. Not known to have MELANIE on review of available records but also consideration. (10) Charcot's arthropathy: Of the left foot and ankle, follows with Dr. Carrera (11) BMI 50.0-59.9, adult: Plan History of seizures on chronic Keppra Hypothyroidism on chronic levothyroxine History of neuropathy on chronic gabapentin History of nicotine dependence with cigarettes and alcohol abuse, current utilization unknown Inpatient admission ICU care initially secondary to severity of encephalopathy Attempts to place NG tube initially unsuccessful. Patient developed epistaxis. Mother indicates difficulty with NG tube placement is a recurrent problem. Explained current clinical condition and need to treat urgently to decrease the ammonia level. Mother preference is to avoid NG tube placement if possible. I was at the bedside during NG tube placement attempts. Will initiate lactulose retention enemas and monitor patient tolerance and result Recheck ammonia level Mother aware that sedation including the possibility of intubation may be necessary for NG tube or OG tube for urgent treatment needs for hepatic encephalopathy Rocephin for UTI Follow-up pending cultures Weir catheter for close monitoring of urine output Strict I's and O's and daily weights Hold diuretic therapy currently Low volume IV fluid overnight Repeat laboratory studies in the morning Monitor volume status and respiratory status for clinical change Telemetry monitoring IV metoprolol while unable to take oral propranolol All oral medications currently held due to current mental status Will need to resume oral diltiazem, propranolol, diuretics, Keppra, levothyroxine, oral PPI, oral gabapentin and other usual medications when medically appropriate to do so Would avoid NSAID therapy secondary to risk of bleeding from varices Monitor for recurrent epistaxis from NG tube placement -no ongoing active epistaxis noted from right nares or oropharynx upon direct examination about 10 minutes after NG tube placement Breathing treatments if needed Serial neuro exams Continue nystatin to intertriginous areas Supportive care otherwise Findings, concerns and plans discussed with patient's mother at the bedside and she was given an opportunity to ask questions. She is aware of the critical nature of current illness. Anticipate discharge back to skilled facility once medically stable with evaluation for need to adjust hepatic encephalopathy treatment, diuretics and NSAID therapy prior to disposition. Full code Attestations Medical Necessity Statement*: Anticipated stay greater than 2 midnights in a gentleman with known alcoholic liver disease presenting with severe acute hepatic encephalopathy and urinary tract infection. Given current clinical condition requiring close ICU monitoring, invasive medication administration for encephalopathy along with IV fluids and IV medications while unable to take by mouth, serial laboratory studies. At high risk of rapid clinical decline up to and including the possibility of without intensive care at this time. and High Time for a total of 95 minutes, includes reviewing past or interval history, examining/interviewing patient, placing orders, updating patient/family/other support, discussing plan of care with staff and documenting encounter Diagnoses Acute hepatic encephalopathy K76.82 Urinary tract infection N39.0 Chronic kidney disease N18.9 End-stage liver disease K72.90 CHF (congestive heart failure) I50.9 Atrial fibrillation and flutter I48.91; I48.92 Esophageal varices I85.00 BPH loc w urin obs/LUTS N40.1 COPD (chronic obstructive pulmonary disease) J44.9 Charcot's arthropathy M14.60 BMI 50.0-59.9, adult Z68.43
--- NOTE | 2022-11-04 15:40 | PC.NURSE ---
Transfer Note Patient transferred to ICU from ER via stretcher. Handoff received from ELVIN Vogt. Patient oriented to environment and equipment. Covering service notified. Orders reviewed and will continue to monitor. Patient mother notified. Patient transferred on room air and is confused/disoriented at this time. Unable to answer orientation questions. No open wounds noted upon admit to ICU. Patient does have excoriation to groin & armpits as well as a bulge on bottom of left foot. Patient belongings include shorts which were placed at bedside.
--- NOTE | 2022-11-04 16:30 | PC.NURSE ---
New Orders Received Dr. Salazar at bedside, received verbal orders to apply non-violent wrist restraints due to patient attempting to remove lines.
[2022-11-04] MEDS: lactulose oral liq 20 gm/30 mL UDC 30 GM NG-TUBE (16:36)
[2022-11-04] MEDS: sodium chloride 0.9% 1,000 ML 100 ML IV (16:41)
[2022-11-04 18:01] LABS: INR 1.15 (0.8-1.2)
[2022-11-04 18:02] LABS: Partial Thromboplastin Time 34.2 SECONDS (23.9-36.7)
[2022-11-04] MEDS: nystatin powder 15 gm Btl 1 APPLIC TOPICAL (18:28)
[2022-11-04] MEDS: sodium chloride 0.9% 1,000 ML 75 ML IV (18:29)
[2022-11-04 18:43] LABS: Troponin 5 6HR 54.24 ng/L (0-15)
[2022-11-04 18:45] LABS: Ammonia 97 umol/L (16-60)
[2022-11-04 18:50] LABS: Troponin 5 6HR Delta 1.24 ng/L (0-12)
--- NOTE | 2022-11-04 19:30 | PC.NURSE ---
New Orders Received Dr. Salazar at bedside, gave verbal orders to change Metoprolol 5mg IVP Q4H to Metoprolol 5mg IVP Q6H. Also received verbal orders to non-admin PO Lactulose at this time.
[2022-11-04] MEDS: albuterol 2.5 mg/3 mL Neb INHALATION (20:12)
[2022-11-04] MEDS: ipratropium 0.5 mg/2.5 mL Neb INHALATION (20:12)
[2022-11-04 20:18] LABS: ABG PCO2 47.7 mmHg (35-45); ABG PH Result 7.46 (7.35-7.45); Arterial Blood Gas Hematocrit 38.3 % (42-52); Base Excess ABG 8.3 mmol/L (-2.0-2.0); Blood Gas Allen Test Pos; Blood Gas Sample Site Radial, right; Blood Gas Sample Type Arterial; HCO3 ABG 33.5 mmol/L (22-26); Oxygen Device ROOM AIR; PO2 ABG 78.7 mmHg (80.0-100.0)
[2022-11-04] MEDS: metoprolol tartrate 1 mg/1 mL SDV 5 mL 5 MG IVP (20:26)
[2022-11-04] MEDS: lactulose oral liq 20 gm/30 mL UDC 200 GM PR (21:41)
[2022-11-05] VITALS (61 sets, daily range): BP systolic 103–157; BP diastolic 49–124; PULSE 61–117; RESP 10–34; TEMP 36.4–37.2; O2SAT 88–99
[2022-11-05] MEDS: lactulose oral liq 20 gm/30 mL UDC 200 GM PR (01:57)
[2022-11-05] MEDS: metoprolol tartrate 1 mg/1 mL SDV 5 mL 5 MG IVP ×4 (02:45→20:10)
[2022-11-05] MEDS: albuterol 2.5 mg/3 mL Neb INHALATION ×4 (03:28→20:26)
[2022-11-05] MEDS: ipratropium 0.5 mg/2.5 mL Neb INHALATION ×4 (03:28→20:26)
[2022-11-05 03:41] LABS: ABG PCO2 40.9 mmHg (35-45); Blood Gas Allen Test Pos; Blood Gas Sample Site Radial, right; Blood Gas Sample Type Arterial; Oxygen Device ROOM AIR; PO2 ABG 83.1 mmHg (80.0-100.0)
--- NOTE | 2022-11-05 05:13 | PC.NURSE ---
Pt is able to follow commands but is still confused. Pt demonstrated safely swallowing small sips of water several times. 200g Rectal lactuose changed to 30g oral.
[2022-11-05] MEDS: lactulose oral liq 20 gm/30 mL UDC 30 GM PO ×4 (05:20→20:10)
[2022-11-05 06:39] LABS: Basophils # 0.1 10^3/uL (0.0-0.1); Basophils % 1.2 %; Eosinophils # 0.4 10^3/uL (0.0-0.8); Eosinophils % 5.3 %; Hematocrit 36.3 % (42.0-52.0); Lymphocytes # 0.9 10^3/uL (0.8-4.8); Lymphocytes % 13.4 %; Mean Corpuscular HGB Conc 33.1 g/dL (30.0-36.0); Mean Corpuscular Volume 117.9 fl (80-94); Mean Platelet Volume 10.6 fL (7.4-10.4); Monocytes # 0.9 10^3/uL (0.2-0.9); Monocytes % 13.4 %; Neutrophils # 4.59 10^3/uL (1.8-7.7); Neutrophils % 66.3 %; Nucleated Red Blood Cells % 0 %; Platelet Count 163 10^3/cmm (130-400); Red Blood Count 3.08 10^6/uL (4.1-5.3); Red Cell Distribution Width 13.8 % (12.1-15.1); White Blood Count 6.9 10^3/uL (4.0-10.0)
[2022-11-05 06:51] LABS: Alanine Aminotransferase 20 U/L (0-41); Albumin Level 3.2 g/dL (3.5-5.2); Alkaline Phosphatase 81 U/L (40-130); Ammonia 80 umol/L (16-60); Aspartate Amino Transferase 25 U/L (0-40); Blood Urea Nitrogen 42 mg/dL (6-20); Calcium 9.6 mg/dL (8.5-10.5); Carbon Dioxide 29 mmol/L (22-29); Chloride 102 mmol/L (98-107); Globulin 3.2 g/dL (1.3-4.6); Glomerular Filtration Rate 44.6 mL/min (90-130); Glucose 95 mg/dL (65-115); Magnesium 1.9 mg/dL (1.7-2.3); Osmolality Calculated 300 mOsm/kg (285-295); Phosphorus 2.7 mg/dL (2.5-4.5); Sodium 140 mmol/L (136-145); Total Bilirubin 2.2 mg/dL (0.15-1.2); Total Protein 6.4 g/dL (6.6-8.7)
[2022-11-05] MEDS: pantoprazole 40 mg SDV IVP (09:18)
[2022-11-05] MEDS: nystatin powder 15 gm Btl 1 APPLIC TOPICAL ×2 (09:18→18:25)
--- NOTE | 2022-11-05 09:32 | PC.NURSE ---
Upon morning assessment, patient is still confused, but improved. Is now alert to name and date of . Not to time, or place.
--- NOTE | 2022-11-05 09:32 | PC.NURSE ---
Patient stated that he has to have a bowel movement. According to luis miguel melchor, he transferes from chair to bed at their facility, and his mental status has been improving. Nurse attempted to sit patient up on the side of the bed to assess ability to transfer to bedside commode. Patient is unable to SIt on side of bed, has difficulty following directions, and started to slide out pf bed. Nurse stood in front of patient to prevent him leaving the bed and laid him back down. NUrse attempted to get patient onto a bedpad, but he refused. Patient soiled linens.
--- NOTE | 2022-11-05 12:58 | PM.PN ---
Subjective Subjective: This morning patient is awake and alert Oriented to time place and person Able to provide some history as well Clinically looks dehydrated Dry skin Vitals/I&O/Wt Last Vital Signs Temp 98.9 F 11/05/22 12:00 Pulse 93 11/05/22 12:30 Resp 18 11/05/22 12:30 BP 131/81 11/05/22 12:00 Pulse Ox 93 11/05/22 12:30 O2 Del Method 11/05/22 12:00 11/04/22 11/05/22 11/05/22 22:59 06:59 14:59 Intake Total 253.333 / 253.333 110 / 363.333 Output Total 900 / 900 1600 / 2500 280 / 280 Balance -646.667 / -646.667 -1490 / -2136.667 -280 / -280 Weight last 48 hrs Weight 187.504 kg Physical Exam Narrative: Awake and alert Asterixis negative Clinically dry Abdomen soft Morbidly obese Charcot foot Dry skin No active sign of cellulitis of lower extremities Hemodynamically stable Hemoglobin: Nonfocal neuro exam Urinary Catheter Management: Weir: Cath Placed During This Visit: yes Reason for Continuing Indwelling Catheter: Accurate Measurement of Urinary Output in Critically Ill Patients Urinary Catheter Date of Insertion: 11/04/22 Data 11/05/22 06:22 11/05/22 06:22 Micro: Microbiology 11/04/22 11:12 Blood Culture - Preliminary Blood NEGATIVE TO DATE 11/04/22 10:45 Blood Culture - Preliminary Blood A&P Assessment and plan (1) End-stage liver disease: (2) Atrial fibrillation and flutter: (3) Charcot's joint of left foot: (4) BPH loc w urin obs/LUTS: (5) PVD (peripheral vascular disease): (6) Esophageal varices: (7) Chronic kidney disease: (8) Portal hypertension: (9) Splenomegaly: (10) COPD (chronic obstructive pulmonary disease): (11) Acute hepatic encephalopathy: (12) BMI 50.0-59.9, adult: (13) Urinary tract infection: (14) Hypothyroidism: Plan Acute hepatic encephalopathy: Resolved Secondary to UTI and dehydration Continue IV fluid gentle hydration follow-up urine culture patient is awake and alert, asterixis negative Splenomegaly portal hypertension esophageal varices not a candidate for NG tube placement Continue lactulose and rifaximin Charcot foot No active sign of cellulitis Dry skin, chronic kidney disease stage III: Stable patient is currently doing well on room air, there was consideration given to possible sleep apnea, we can check overnight pulse ox study Start consistent carb diet Encephalopathy: Resolved Plan to discharge him back to the facility tomorrow Attestations Medical Necessity Statement*: cosmo rogers Coding Level of Care Code 48881 Diagnoses End-stage liver disease K72.90 Atrial fibrillation and flutter I48.91; I48.92 Charcot's joint of left foot M14.672 BPH loc w urin obs/LUTS N40.1 PVD (peripheral vascular disease) I73.9 Esophageal varices I85.00 Chronic kidney disease N18.9 Portal hypertension K76.6 Splenomegaly R16.1 COPD (chronic obstructive pulmonary disease) J44.9 Acute hepatic encephalopathy K76.82 BMI 50.0-59.9, adult Z68.43 Urinary tract infection N39.0 Hypothyroidism E03.9
[2022-11-05] MEDS: cefTRIAXone 1,000 MG in sodium chloride 0.9% (plus) 50 ML 100 MG IV (14:06)
[2022-11-05] MEDS: oxyCODONE 5 mg IR Tab/Cap PO (15:57)
--- NOTE | 2022-11-05 17:38 | PC.NURSE ---
SHift SUmmary: Patient's mental status has improved, beginning of shift he was only able to give his name. By end of shift he has been able to correctly answer person, place, time, and situation questions most of the time. He has been having finding words at times. Multiple bowel movements. Attempted to site on side of the bed but due to lack of coordination it was unsafe. Started on consistent carb diet.
[2022-11-06] VITALS (15 sets, daily range): BP systolic 116–166; BP diastolic 69–85; PULSE 54–115; RESP 15–18; TEMP 36.3–37.1; O2SAT 92–97
[2022-11-06] MEDS: metoprolol tartrate 1 mg/1 mL SDV 5 mL 5 MG IVP (01:12)
[2022-11-06] MEDS: albuterol 2.5 mg/3 mL Neb INHALATION ×4 (03:33→19:50)
[2022-11-06] MEDS: ipratropium 0.5 mg/2.5 mL Neb INHALATION ×3 (03:34→19:50)
[2022-11-06] MEDS: oxyCODONE 5 mg IR Tab/Cap PO (04:22)
[2022-11-06 06:05] LABS: Basophils # 0.1 10^3/uL (0.0-0.1); Eosinophils # 0.4 10^3/uL (0.0-0.8); Eosinophils % 5.5 %; Hematocrit 33.5 % (42.0-52.0); Hemoglobin 10.9 g/dL (11.7-16.6); Lymphocytes # 1.2 10^3/uL (0.8-4.8); Lymphocytes % 17.3 %; Mean Corpuscular HGB Conc 32.5 g/dL (30.0-36.0); Mean Corpuscular Hemoglobin 38.4 pg (28.0-34.0); Mean Platelet Volume 10.4 fL (7.4-10.4); Monocytes # 1.2 10^3/uL (0.2-0.9); Monocytes % 17.3 %; Neutrophils # 3.98 10^3/uL (1.8-7.7); Neutrophils % 58.6 %; Nucleated Red Blood Cells % 0 %; Platelet Count 153 10^3/cmm (130-400); Red Blood Count 2.84 10^6/uL (4.1-5.3); Red Cell Distribution Width 13.6 % (12.1-15.1); White Blood Count 6.8 10^3/uL (4.0-10.0)
[2022-11-06 06:38] LABS: Anion Gap 14.8 (5-19); Blood Urea Nitrogen 27 mg/dL (6-20); Calcium 8.8 mg/dL (8.5-10.5); Carbon Dioxide 24 mmol/L (22-29); Chloride 103 mmol/L (98-107); Glomerular Filtration Rate 48.1 mL/min (90-130); Glucose 130 mg/dL (65-115); Osmolality Calculated 293 mOsm/kg (285-295); Potassium 3.8 mmol/L (3.5-5.1); Sodium 138 mmol/L (136-145)
[2022-11-06] MEDS: nystatin powder 15 gm Btl 1 APPLIC TOPICAL ×2 (09:57→18:47)
[2022-11-06] MEDS: lactulose oral liq 20 gm/30 mL UDC 30 GM PO ×3 (09:57→20:57)
[2022-11-06] MEDS: pantoprazole 40 mg SDV IVP (09:58)
--- NOTE | 2022-11-06 11:47 | P.PN_ITS ---
Subjective Subjective: Change IV medications to p.o. Patient is able to tolerate diet Confusion improved Awaiting placement We will follow-up with PT and OT evaluation today Patient is medically cleared to be discharged to go to longterm once gets prior auth Vitals/I&O/Wt Last Vital Signs Temp 98.5 F 11/06/22 10:00 Pulse 115 H 11/06/22 10:00 Resp 18 11/06/22 10:00 BP 135/81 11/06/22 10:00 Pulse Ox 95 11/06/22 10:00 O2 Del Method 11/06/22 10:00 O2 Flow Rate 1 11/05/22 20:33 11/05/22 11/06/22 11/06/22 22:59 06:59 14:59 Intake Total 110 / 110 960 / 1070 400 / 400 Output Total 450 / 730 700 / 1430 Balance -340 / -620 260 / -360 400 / 400 Weight last 48 hrs Weight 186.171 kg Weight 187.504 kg Physical Exam Narrative: Alert no active discomfort No asterixis Clinically stable Morbidly obese Answering my questions appropriately Nonfocal neuro exam GCS 15 Abdomen distended, soft Skin skin is dry Room air without acute exacerbation Charcot foot Urinary Catheter Management: Weir: Cath Placed During This Visit: yes Reason for Continuing Indwelling Catheter: Accurate Measurement of Urinary Output in Critically Ill Patients Urinary Catheter Date of Insertion: 11/04/22 Data 11/06/22 05:42 11/06/22 05:42 Micro: Microbiology 11/04/22 11:12 Blood Culture - Preliminary Blood NEGATIVE TO DATE 11/04/22 10:45 Blood Culture - Preliminary Blood A&P Assessment and plan (1) End-stage liver disease: (2) Atrial fibrillation and flutter: (3) Charcot's joint of left foot: (4) BPH loc w urin obs/LUTS: (5) CHF (congestive heart failure): (6) PVD (peripheral vascular disease): (7) Esophageal varices: (8) Splenomegaly: (9) Portal hypertension: (10) Chronic kidney disease: (11) Acute hepatic encephalopathy: (12) Urinary tract infection: Plan Hepatic encephalopathy resolved Metabolic component resolved as well currently being treated for UTI with ceftriaxone PT/OT today Awaiting transfer to facility Medically cleared Charcot foot no active cellulitis Discontinue IV medication and switch to p.o. Atrial flutter history, start Cardizem p.o. regimen Start p.o. Keppra Continue levothyroxine Consistent carb diet Full code Awaiting placement Attestations Medical Necessity Statement*: Waiting placement, likely discharge later today versus tomorrow Coding Level of Care Code 55300 Diagnoses End-stage liver disease K72.90 Atrial fibrillation and flutter I48.91; I48.92 Charcot's joint of left foot M14.672 BPH loc w urin obs/LUTS N40.1 CHF (congestive heart failure) I50.9 PVD (peripheral vascular disease) I73.9 Esophageal varices I85.00 Splenomegaly R16.1 Portal hypertension K76.6 Chronic kidney disease N18.9 Acute hepatic encephalopathy K76.82 Urinary tract infection N39.0
[2022-11-06] MEDS: cefTRIAXone 1,000 MG in sodium chloride 0.9% (plus) 50 ML 100 MG IV (13:55)
[2022-11-06] MEDS: levETIRAcetam 500 mg Tablet 1000 MG PO (20:52)
[2022-11-07] VITALS (14 sets, daily range): BP systolic 119–143; BP diastolic 72–82; PULSE 56–115; RESP 15–20; TEMP 36.8–37.2; O2SAT 94–98; BMI 55.6
[2022-11-07] MEDS: oxyCODONE 5 mg IR Tab/Cap PO ×2 (01:50→19:50)
[2022-11-07] MEDS: ipratropium 0.5 mg/2.5 mL Neb INHALATION ×4 (02:17→20:27)
[2022-11-07] MEDS: albuterol 2.5 mg/3 mL Neb INHALATION ×4 (02:17→20:27)
[2022-11-07] MEDS: levothyroxine 50 mcg Tablet PO (06:35)
[2022-11-07] MEDS: dilTIAZem ER (24HR) 120 mg Capsule PO (06:35)
--- NOTE | 2022-11-07 09:16 | PC.SOCIAL ---
IMM update IMM Updated with patient. Verbalized an understanding. Copy Pg 2 provided. Initialled, dated, timed, and placed in chart.
[2022-11-07] MEDS: lactulose oral liq 20 gm/30 mL UDC 30 GM PO ×2 (10:15→21:53)
[2022-11-07] MEDS: pantoprazole 40 mg SDV IVP (10:17)
[2022-11-07] MEDS: nystatin powder 15 gm Btl 1 APPLIC TOPICAL ×2 (10:20→18:31)
[2022-11-07] MEDS: levETIRAcetam 500 mg Tablet 1000 MG PO ×2 (10:23→21:52)
--- NOTE | 2022-11-07 10:35 | PM.PN ---
Subjective Subjective: No events overnight Patient is eating breakfast He is motivated and anxious to return to rehab Awaiting prior Auth Did extension course counselor patient regarding lactulose and rifaximin and I did explain the mechanism Vitals/I&O/Wt Last Vital Signs Temp 98.2 F 11/07/22 08:00 Pulse 63 11/07/22 08:00 Resp 18 11/07/22 08:00 BP 119/74 11/07/22 08:00 Pulse Ox 95 11/07/22 08:00 O2 Del Method 11/07/22 08:00 O2 Flow Rate 1 11/06/22 20:00 11/06/22 11/07/22 11/07/22 22:59 06:59 14:59 Intake Total 1530 / 2410 480 / 2890 260 / 260 Output Total 300 / 303 400 / 703 Balance 1230 / 2107 80 / 2187 260 / 260 Weight last 48 hrs Weight 186.171 kg Weight 186.171 kg Physical Exam Narrative: Patient is laying supine Eating breakfast Morbidly obese Ascites No signs of confusion S1, S2 Currently on room air Venous stasis dermatitis Pleasant and cooperative No focal neuro exam Left chest bruise no acute worse Urinary Catheter Management: Weir: Cath Placed During This Visit: yes Reason for Continuing Indwelling Catheter: Other Urinary Catheter Date of Insertion: 11/04/22 Data 11/06/22 05:42 11/06/22 05:42 Micro: Microbiology 11/04/22 10:45 Urine Culture - Final Urine,Clean Catch Morganella morganii 11/04/22 10:45 Blood Culture - Preliminary Blood Staphylococcus sp coag neg A&P Assessment and plan (1) Peyronie disease: (2) Erectile dysfunction: Qualifiers: Erectile dysfunction type: due to other cause Qualified Code(s): N52.8 - Other male erectile dysfunction (3) End-stage liver disease: (4) Charcot's joint of left foot: (5) Atrial fibrillation and flutter: (6) COPD (chronic obstructive pulmonary disease): (7) Splenomegaly: (8) Contraindication to deep vein thrombosis (DVT) prophylaxis: (9) Portal hypertension: (10) Esophageal varices: (11) Hypothyroidism: (12) Physical deconditioning: Plan Hepatic encephalopathy: Resolved Discharged planning: We will prefer him to go back to rehab because of his deconditioning, Charcot foot He has been working with PT here in the hospital Component of UTI: Resolved Hemodynamically stable Chronic kidney disease creatinine stable Chronic anemia stable Awaiting placement Patient does not have enough support at home Would definitely prefer him to go to rehab Urine culture showing Morganella morganii I will switch him to levofloxacin Continue lactulose and rifaximin Attestations Medical Necessity Statement*: Awaiting placement Coding Level of Care Code 77072 Diagnoses Peyronie disease N48.6 Erectile dysfunction N52.8 Erectile dysfunction type: due to other cause End-stage liver disease K72.90 Charcot's joint of left foot M14.672 Atrial fibrillation and flutter I48.91; I48.92 COPD (chronic obstructive pulmonary disease) J44.9 Splenomegaly R16.1 Contraindication to deep vein thrombosis (DVT) prophylaxis Z53.09 Portal hypertension K76.6 Esophageal varices I85.00 Hypothyroidism E03.9 Physical deconditioning R53.81
[2022-11-08] VITALS (7 sets, daily range): BP systolic 128–133; BP diastolic 73–77; PULSE 86–112; RESP 17–19; TEMP 36.6–37.1; O2SAT 90–97; BMI 55.6
[2022-11-08] MEDS: ipratropium 0.5 mg/2.5 mL Neb INHALATION ×2 (02:23→08:58)
[2022-11-08] MEDS: albuterol 2.5 mg/3 mL Neb INHALATION ×2 (02:23→08:59)
[2022-11-08] MEDS: levoFLOXacin 750 mg Tablet PO (06:16)
[2022-11-08] MEDS: dilTIAZem ER (24HR) 120 mg Capsule PO (06:16)
[2022-11-08] MEDS: levothyroxine 50 mcg Tablet PO (06:16)
--- NOTE | 2022-11-08 07:14 | PM.PN ---
Subjective Subjective: Patient is worked with PT yesterday Unfortunately because of lack of orthotics he was not able to participate fully with PT, but he is at risk of falls because of Charcot joint He does need SNF placement We are waiting on prior Auth approval Patient is compliant with lactulose and rifaximin Antibiotics have been changed to p.o. regimen for UTI Tolerating his diet Afebrile Vitals/I&O/Wt Last Vital Signs Temp 98.8 F 11/08/22 04:00 Pulse 112 H 11/08/22 04:00 Resp 19 H 11/08/22 04:00 BP 133/74 11/08/22 04:00 Pulse Ox 90 11/08/22 04:00 O2 Del Method 11/08/22 02:00 O2 Flow Rate 1 11/07/22 20:00 11/07/22 11/08/22 11/08/22 22:59 06:59 14:59 Intake Total 240 / 740 620 / 1360 Output Total 1800 / 1800 300 / 2100 Balance -1560 / -1060 320 / -740 Weight last 48 hrs Weight 186.171 kg Weight 186.171 kg Physical Exam Narrative: Morbidly obese male Lying supine Pleasant and cooperative No active signs of encephalopathy Nonfocal neuro exam Charcot joint without active cellulitis Venous stasis dermatitis Pleasant and cooperative Able to follow commands S1, S2 Currently on room air Urinary Catheter Management: Weir: Cath Placed During This Visit: yes Reason for Continuing Indwelling Catheter: Other Urinary Catheter Date of Insertion: 11/04/22 Data 11/06/22 05:42 11/06/22 05:42 Micro: Microbiology 11/04/22 10:45 Blood Culture - Preliminary Blood Staphylococcus epidermidis A&P Assessment and plan (1) Physical deconditioning: (2) Peyronie disease: (3) End-stage liver disease: (4) Atrial fibrillation and flutter: (5) Charcot's joint of left foot: (6) BPH loc w urin obs/LUTS: (7) CHF (congestive heart failure): (8) PVD (peripheral vascular disease): (9) BMI 50.0-59.9, adult: (10) COPD (chronic obstructive pulmonary disease): (11) Contraindication to deep vein thrombosis (DVT) prophylaxis: (12) Splenomegaly: (13) Urinary tract infection: Plan Hepatic encephalopathy: Resolved with lactulose and rifaximin I have decreased the frequency of lactulose to twice a day UTI: Switch to p.o. antibiotics, Levaquin Physical deconditioning, Charcot foot joint, risk of falls Lives alone, not a candidate to return home We definitely recommend SNF placement Participate with PT on daily basis Chronic liver disease secondary to alcohol not a candidate of transplant or TIPS Continue rifaximin and lactulose Chronic A-fib not a candidate for anticoagulation, continue p.o. AV kelley blocking agents History of portal hypertension splenomegaly and esophageal varices Full code Awaiting placement Attestations Medical Necessity Statement*: Awaiting placement Coding Level of Care Code 03792 Diagnoses Physical deconditioning R53.81 Peyronie disease N48.6 End-stage liver disease K72.90 Atrial fibrillation and flutter I48.91; I48.92 Charcot's joint of left foot M14.672 BPH loc w urin obs/LUTS N40.1 CHF (congestive heart failure) I50.9 PVD (peripheral vascular disease) I73.9 BMI 50.0-59.9, adult Z68.43 COPD (chronic obstructive pulmonary disease) J44.9 Contraindication to deep vein thrombosis (DVT) prophylaxis Z53.09 Splenomegaly R16.1 Urinary tract infection N39.0
--- NOTE | 2022-11-08 07:18 | PM.DCS ---
Discharge Providers Date of Admission: 11/04/22 16:08 Date of Discharge: November 08, 2022 Attending Provider at Admission: Wanda Salazar MD Attending Provider at Discharge: Abdiel Cardona MD Primary Care Provider: Yosvany Segovia MD Diagnoses at Discharge Discharge Diagnosis (1) Physical deconditioning: Status: Acute (2) Peyronie disease: Status: Chronic (3) End-stage liver disease: Status: Chronic Permanent problem details: not a candidate for transplant or tips at last evaluation (4) Atrial fibrillation and flutter: Status: Chronic (5) Charcot's joint of left foot: Status: Chronic (6) BPH loc w urin obs/LUTS: Status: Chronic (7) CHF (congestive heart failure): Status: Chronic Permanent problem details: Echocardiogram done in 2019 shows an EF of 40 to 45% with hypokinetic septum, anteroseptum and inferior wall, biatrial enlargement (8) PVD (peripheral vascular disease): Status: Chronic (9) BMI 50.0-59.9, adult: Status: Chronic (10) COPD (chronic obstructive pulmonary disease): Status: Chronic (11) Contraindication to deep vein thrombosis (DVT) prophylaxis: Status: Acute (12) Splenomegaly: Status: Chronic (13) Urinary tract infection: Status: Acute Reason for Visit Reason for Visit: [facility] Hospital Course Hospital Course 57-year-old male with history of alcohol-related liver cirrhosis, not a candidate of TIPS or liver transplant, was admitted for hepatic encephalopathy with high ammonia level which resolved with lactulose and rifaximin, patient was also diagnosed with UTI required IV ceftriaxone which was transitioned to p.o. Levaquin urine culture showing Morganella, pansensitive, he remained afebrile, he is able to eat on his own, mentation improved significantly, able to participate with PT to some extent, he does have Charcot joint use orthotics,, he will be discharged back to SNF At risk of readmission secondary to hepatic encephalopathy, patient not get nasogastric tube because of esophageal varices, he does have A-fib not a candidate for anticoagulation due to portal hypertension, patient would continue his lactulose and rifaximin regimen. Peer to peer review done patient has been accepted at [facility] for occupational therapy. He did well with physical therapy in the hospital, before his admission he was living alone however because of right shoulder pain he was not able to take care of himself and wash himself properly. I am anticipating he will be discharged from SNF within 4--5 days, and then patient is planning to follow-up with Dr. Carrera for surgical evaluation of Charcot foot, Other comorbid conditions ?HFpEF, liver cirrhosis and end-stage liver disease, not found to be a candidate for liver transplantation, hepatorenal syndrome, seizures, morbid obesity, BMI 56.4, COPD, atrial fibrillation/flutter, chronic kidney disease, peripheral vascular disease, active smoker, hypoalbuminemia, chronic hyponatremia, CAD, Charcot's arthropathy, esophageal varices Physical Exam Narrative: Morbidly obese male Lying supine Pleasant and cooperative No active signs of encephalopathy Nonfocal neuro exam Charcot joint without active cellulitis Venous stasis dermatitis Pleasant and cooperative Able to follow commands S1, S2 Currently on room air Urinary Catheter Management: Weir: Cath Placed During This Visit: yes Reason for Continuing Indwelling Catheter: Other Urinary Catheter Date of Insertion: 11/04/22 Discharge Data Studies Completed and Pending Completed Studies During Hospitalization Category Date Time Status CT abdomen pelvis wo con [id number] Stat Cat Scan 11/04/22 11:[address] head wo con* [id number] Stat Cat Scan 11/04/22 11:45 Completed XR chest 1V portable [id number] Stat Exams 11/04/22 10:49 Completed Pending at discharge Category Date Time Status Blood Culture Stat Lab 11/04/22 11:12 Results Radiology Impressions Chest X-Ray 11/04/22 10:49 IMPRESSION: 1. No acute cardiopulmonary finding. Abdomen/Pelvis CT 11/04/22 11:44 IMPRESSION:Images are degraded due to beam hardening artifact from body habitus. 1. Mild rectosigmoid constipation. Sigmoid diverticulosis. No evidence of acute diverticulitis. 2. No evidence of high-grade small or large bowel obstruction. 3. Small esophageal hiatal hernia with periesophageal varices. 4. Small bowel is decompressed. 5. Normal appendix in the RIGHT lower quadrant. 6. Weir catheter. 7. Cirrhotic liver with splenomegaly and upper abdominal and paraesophageal varices. 8. Mild diffuse body wall anasarca. 9. Bibasilar atelectasis with trace pleural fluid. Head CT 11/04/22 11:45 IMPRESSION: 1. No evidence of intracranial hemorrhage or mass effect. 2. Mild small vessel changes. Mild parenchymal volume loss. 3. No acute intracranial findings. Laboratory Results WBC 6.8 10^3/uL (4.0-10.0) 11/06/22 05:42 RBC 2.84 10^6/uL (4.1-5.3) L 11/06/22 05:42 Hgb 10.9 g/dL (11.7-16.6) L 11/06/22 05:42 Hct 33.5 % (42.0-52.0) L 11/06/22 05:42 MCV 118.0 fl (80-94) H 11/06/22 05:42 MCH 38.4 pg (28.0-34.0) H 11/06/22 05:42 MCHC 32.5 g/dL (30.0-36.0) 11/06/22 05:42 RDW 13.6 % (12.1-15.1) 11/06/22 05:42 Plt Count 153 10^3/cmm (130-400) 11/06/22 05:42 MPV 10.4 fL (7.4-10.4) 11/06/22 05:42 Neut % (Auto) 58.6 % 11/06/22 05:42 Lymph % (Auto) 17.3 % 11/06/22 05:42 [place] % (Auto) 17.3 % 11/06/22 05:42 Eos % (Auto) 5.5 % 11/06/22 05:42 Baso % (Auto) 1.0 % 11/06/22 05:42 Neut # (Auto) 3.98 10^3/uL (1.8-7.7) 11/06/22 05:42 Lymph # (Auto) 1.2 10^3/uL (0.8-4.8) 11/06/22 05:42 [place] # (Auto) 1.2 10^3/uL (0.2-0.9) H 11/06/22 05:42 Eos # (Auto) 0.4 10^3/uL (0.0-0.8) 11/06/22 05:42 Baso # (Auto) 0.1 10^3/uL (0.0-0.1) 11/06/22 05:42 Nucleated RBC % (auto) 0 % 11/06/22 05:42 Nucleated RBCs # 0.0 /100WBC 11/06/22 05:42 PT 15.10 SECONDS (12.1-14.9) H 11/04/22 10:45 INR 1.15 (0.8-1.2) 11/04/22 10:45 APTT 34.2 SECONDS (23.9-36.7) 11/04/22 10:45 Specimen Type Arterial 11/05/22 04:00 Sample Site Radial, right 11/05/22 04:00 ABG pH 7.50 (7.35-7.45) H 11/05/22 04:00 ABG pCO2 40.9 mmHg (35-45) 11/05/22 04:00 ABG pO2 83.1 mmHg (80.0-100.0) 11/05/22 04:00 ABG HCO3 32.0 mmol/L (22-26) H 11/05/22 04:00 ABG O2 Saturation 95.1 11/04/22 11:12 ABG Base Excess 8.0 mmol/L (-2.0-2.0) H 11/05/22 04:00 Marcelo Test Pos 11/05/22 04:00 A-a O2 Gradient 1.0 mmHg (5-10) L 11/04/22 11:12 Hematocrit 37.0 % (42-52) L 11/05/22 04:00 Hgb O2 Saturation 92.1 % (95-100) L 11/04/22 11:12 Carboxyhemoglobin 2.4 %THgb (0.4-20.1) 11/04/22 11:12 Methemoglobin 0.7 % (0.4-1.5) 11/04/22 11:12 Total Hemoglobin 12.8 g/dL (14-18) L 11/04/22 11:12 Sodium 138.0 mmol/L (131-143) 11/04/22 11:12 Potassium 4.6 mmol/L (3.5-5.0) 11/04/22 11:12 Glucose 125.0 mg/dL (70-115) H 11/04/22 11:12 Ionized Calcium 1.2 mmol/L (1.1-1.4) 11/04/22 11:12 O2 Delivery Device Room air 11/05/22 04:00 FiO2 21.0 % 11/04/22 11:12 Band Head Saw Operator ID [email or web address] 11/05/22 04:00 Sodium 138 mmol/L (136-145) 11/06/22 05:42 Potassium 3.8 mmol/L (3.5-5.1) 11/06/22 05:42 Chloride 103 mmol/L (98-107) 11/06/22 05:42 Carbon Dioxide 24 mmol/L (22-29) 11/06/22 05:42 Anion Gap 14.8 (5-19) 11/06/22 05:42 BUN 27 mg/dL (6-20) H 11/06/22 05:42 Creatinine 1.5 mg/dL (0.7-1.2) H 11/06/22 05:42 GFR Calculation 48.1 mL/min (90-130) L 11/06/22 05:42 Glucose 130 mg/dL (65-115) H 11/06/22 05:42 Calculated Osmolality 293 mOsm/kg (285-295) 11/06/22 05:42 Lactic Acid 1.4 mmol/L (0.5-2.2) 11/04/22 10:45 Calcium 8.8 mg/dL (8.5-10.5) 11/06/22 05:42 Phosphorus 2.7 mg/dL (2.5-4.5) 11/05/22 06:22 Magnesium 1.9 mg/dL (1.7-2.3) 11/05/22 06:22 Total Bilirubin 2.2 mg/dL (0.15-1.2) H 11/05/22 06:22 AST 25 U/L (0-40) 11/05/22 06:22 ALT 20 U/L (0-41) 11/05/22 06:22 Alkaline Phosphatase 81 U/L (40-130) 11/05/22 06:22 Ammonia 80 umol/L (16-60) H 11/05/22 06:22 Creatine Kinase 38 U/L (39-308) L 11/04/22 10:45 Troponin T Baseline 53 ng/L (0-15) H 11/04/22 10:45 Troponin T 120 Minute 52.99 ng/L (0-15) H 11/04/22 12:58 Delta Troponin T -0.01 ABS# (0-10) L 11/04/22 12:58 Troponin T Hi Sens 6Hr 54.24 ng/L (0-15) H 11/04/22 18:13 Troponin T Hi Sens 6Hr Delta 1.24 ng/L (0-12) 11/04/22 18:13 Total Protein 6.4 g/dL (6.6-8.7) L 11/05/22 06:22 Albumin 3.2 g/dL (3.5-5.2) L 11/05/22 06:22 Globulin 3.2 g/dL (1.3-4.6) 11/05/22 06:22 Lipase 18 U/L (13-60) 11/04/22 10:45 Urine Color Yellow (Yellow) 11/04/22 10:45 Urine Appearance Hazy (CLEAR) A 11/04/22 10:45 Urine pH 7 (5-7) 11/04/22 10:45 Ur Specific [place] 1.010 (1.005-1.030) 11/04/22 10:45 Urine Protein Neg (Negative) 11/04/22 10:45 Urine Glucose (UA) Norm (Normal) 11/04/22 10:45 Urine Ketones Negative (Negative) 11/04/22 10:45 Urine Blood 3+ (Negative) H 11/04/22 10:45 Urine Nitrate Negative (Negative) 11/04/22 10:45 Urine Bilirubin Neg (Negative) 11/04/22 10:45 Urine Urobilinogen Norm mg/dL (Negative) 11/04/22 10:45 Ur Leukocyte Esterase 2+ (Negative) H 11/04/22 10:45 Urine RBC 5-10 /hpf (0-2) H 11/04/22 10:45 Urine WBC 5-10 /hpf (0-5) H 11/04/22 10:45 Ur Squamous Epith Cells None /hpf (0-5) 11/04/22 10:45 Amorphous Sediment Not Reportable 11/04/22 10:45 Urine Bacteria Trace /hpf (NONE) 11/04/22 10:45 Urine Yeast 2+ /hpf H 11/04/22 10:45 Serum Ketones Negative (Negative) 11/04/22 10:45 Vitals Last Vital Signs Temp 98.8 F 11/08/22 04:00 Pulse 112 H 11/08/22 04:00 Resp 19 H 11/08/22 04:00 BP 133/74 11/08/22 04:00 Pulse Ox 90 11/08/22 04:00 O2 Del Method 11/08/22 02:00 O2 Flow Rate 1 11/07/22 20:00 Discharge Plan Discharge Patient Disposition: Xfer SNF Condition: Stable Prescriptions: New levofloxacin 750 mg Tablet 750 mg PO DAILY@0600 Qty: 5 0RF lactulose 20 gram/30 mL Solution 30 g PO Q12H Qty: 3000 3RF Continued vitamin B complex [Vitamins B Complex] Tablet 1 tab PO DAILY diltiazem HCl [Cartia XT] 120 mg capsule,extended release 24hr 120 mg PO DAILY@07 levothyroxine 50 mcg tablet 50 mcg PO QAM ([facility]) Diabetic Shoe of RT foot See Rx Instructions .Route .MEDSUPPLY Qty: 1 0RF Rx Instructions: As directed thiamine HCl (vitamin B1) 50 mg tablet 50 mg PO DAILY (DME) [place] Boot to left See Rx Instructions .Route .MEDSUPPLY Qty: 1 0RF Rx Instructions: As directed by [facility]ABI[facility] ([facility]) Repairs and Adjustments to brace/boot See Rx Instructions .Route .MEDSUPPLY Qty: 1 0RF Rx Instructions: As directed by [facility] [place] tramadol 50 mg Tablet 100 mg PO DAILY@10 folic acid 1 mg tablet 1 mg PO DAILY@07 fluticasone propionate 50 mcg/actuation spray,suspension 1 - 2 spray intranasal DAILY PRN (Reason: Allergy Symptoms) albuterol sulfate 90 mcg/actuation HFA aerosol inhaler 2 puff INHALATION Q4H PRN (Reason: shortness of breath/wheezing) PreserVision AREDS [id number] Capsule 1 cap PO DAILY@07 cetirizine [Zyrtec] 10 mg Tablet 10 mg PO DAILY@07 midodrine 5 mg tablet 5 mg PO TID pantoprazole 40 mg tablet,delayed release (DR/EC) 40 mg PO DAILY potassium chloride 20 mEq Tablet Extended Release 20 meq PO BID@07,19 Hold Instructions: Resume on 12/30/21. gabapentin 100 mg Capsule 100 mg PO TID levetiracetam 500 mg tablet 1,000 mg PO BID ferrous sulfate [iron] 325 mg (65 mg iron) Tablet 325 mg PO DAILY bumetanide 1 mg tablet 2 mg PO BID Qty: 180 3RF Milk of Magnesia 400 mg/5 mL Suspension 30 ml PO DAILY PRN (Reason: Constipation) Dulcolax (bisacodyl) 10 mg Suppository 10 mg [place] DAILY PRN (Reason: Constipation) Tylenol 325 mg Tablet 325 - 650 mg PO Q4H PRN (Reason: Pain) Advil Liqui-Gel 200 mg Capsule 200 mg PO DAILY Zofran 4 mg Tablet 4 mg PO Q4H PRN (Reason: Nausea And Vomiting) Fleet Enema 19-7 gram/118 mL Enema 118 ml [place] DAILY PRN (Reason: Constipation) Nyamyc 100,000 unit/gram powder See Rx Instructions .ROUTE .COMPLEX Rx Instructions: apply to armpits and groins twice a day until healed Culturelle 10 billion cell Capsule 1 cap PO DAILY propranolol 20 mg tablet 20 mg PO BID@07,19 spironolactone 50 mg tablet 50 mg PO DAILY@07 alfuzosin 10 mg tablet extended release 24 hr 10 mg PO DAILY@07 Rx Instructions: administer after the same meal each day Xifaxan 550 mg tablet 550 mg PO BID Qty: 60 3RF Discharge Orders: Discharge Order (Routine); Ordered 11/08/22 Ordered By: Abdiel Cardona Referrals: Yosvany Segovia MD [Primary Care Provider] - 2 weeks Discharge Diet: Cardiac Discharge Activity: Increase activity as tolerated Patient Instructions: Opioid Safety, Pain Management Discharge Attestations Time Spent in Discharge Care*: less than 30 min Status at Discharge: Cognitive status at discharge: cognitively intact, Behavioral status at discharge: cooperative, Quality Metrics Clinical Quality Measures [ No reported AMI, CVA or VTE this stay] Coding Level of Care Code Acute Code for g Fwd Diagnoses Physical deconditioning R53.81 Peyronie disease N48.6 End-stage liver disease K72.90 Atrial fibrillation and flutter I48.91; I48.92 Charcot's joint of left foot M14.672 BPH loc w urin obs/LUTS N40.1 CHF (congestive heart failure) I50.9 PVD (peripheral vascular disease) I73.9 BMI 50.0-59.9, adult Z68.43 COPD (chronic obstructive pulmonary disease) J44.9 Contraindication to deep vein thrombosis (DVT) prophylaxis Z53.09 Splenomegaly R16.1 Urinary tract infection N39.0
[2022-11-08] MEDS: pantoprazole 40 mg SDV IVP (08:09)
[2022-11-08] MEDS: levETIRAcetam 500 mg Tablet 1000 MG PO (08:09)
[2022-11-08] MEDS: oxyCODONE 5 mg IR Tab/Cap PO (10:37)
[2022-11-08] MEDS: lactulose oral liq 20 gm/30 mL UDC 30 GM PO (10:37)
[2022-11-08 11:21] LABS: SARS Covid-2 Antigen negative (Negative)
== END 2022-11-08 13:20 | disposition skilled nursing facility (03) | DRG 441 ==
LOC: ER 10:54 → ICU 16:02 → MEDSURG 11-05 21:55
PROVIDERS: Admitting Provider Hospitalist; Emergency Provider Family Medicine; PCP Family Medicine; Visit Provider Internal Medicine
DX: K76.82 Hepatic encephalopathy (principal); K76.7 Hepatorenal syndrome; I13.0 Hypertensive heart and chronic kidney disease with heart failure and stage 1 through stage 4 chronic kidney disease, or unspecified chronic kidney disease; I48.20 Chronic atrial fibrillation, unspecified; N13.8 Other obstructive and reflux uropathy; I50.32 Chronic diastolic (congestive) heart failure; N39.0 Urinary tract infection, site not specified; Z68.43 Body mass index [BMI] 50.0-59.9, adult; E87.1 Hypo-osmolality and hyponatremia; K76.6 Portal hypertension; I85.10 Secondary esophageal varices without bleeding; K72.10 Chronic hepatic failure without coma; N48.6 Induration penis plastica; K70.30 Alcoholic cirrhosis of liver without ascites; F10.10 Alcohol abuse, uncomplicated; E11.610 Type 2 diabetes mellitus with diabetic neuropathic arthropathy; N40.1 Benign prostatic hyperplasia with lower urinary tract symptoms; N18.32 Chronic kidney disease, stage 3b; E11.22 Type 2 diabetes mellitus with diabetic chronic kidney disease; E11.51 Type 2 diabetes mellitus with diabetic peripheral angiopathy without gangrene; E11.40 Type 2 diabetes mellitus with diabetic neuropathy, unspecified; J44.9 Chronic obstructive pulmonary disease, unspecified; E66.01 Morbid (severe) obesity due to excess calories; F17.210 Nicotine dependence, cigarettes, uncomplicated; B96.4 Proteus (mirabilis) (morganii) as the cause of diseases classified elsewhere; N52.8 Other male erectile dysfunction; E86.0 Dehydration; E03.9 Hypothyroidism, unspecified; R56.9 Unspecified convulsions; K70.9 Alcoholic liver disease, unspecified; Z79.51 Long term (current) use of inhaled steroids; Z79.891 Long term (current) use of opiate analgesic; I25.10 Atherosclerotic heart disease of native coronary artery without angina pectoris
CPT/HCPCS: 36415; 36600; 70450; 71045; 74176; 80048; 80051; 80053; 81001; 82009; 82140; 82330; 82550; 82803; 82805; 83605; 83690; 83735; 84100; 84484; 85025; 85610; 85730; 87040; 87077; 87086; 87186; 87205; 87426; 93005; 94640; 97110; 97161; 97167; 97530; 97535; 99285; C9113; J0696; J1953; J3490; J7030; J7613; J7644

== ENCOUNTER → 2022-11-27 13:24 | Outpatient (BNVA) | payer MEDICARE, MEDICAID, SELFPAY | PROVIDERS: PCP Family Medicine; Visit Provider Podiatrist Foot & Ankle Surgery | DX: M14.672 Charcot's joint, left ankle and foot (principal); I73.9 Peripheral vascular disease, unspecified | CPT/HCPCS: 73600; 73630; 99213 ==

== ENCOUNTER → 2023-01-09 15:18 | Outpatient (BNVA) | payer MEDICARE, MEDICAID, SELFPAY | PROVIDERS: PCP Family Medicine; Visit Provider Urology | DX: N40.1 Benign prostatic hyperplasia with lower urinary tract symptoms (principal); N52.8 Other male erectile dysfunction | CPT/HCPCS: 51798; 81003; 99213 ==

== ENCOUNTER → 2023-02-12 07:50 | Outpatient (BNVA) | payer MEDICARE, MEDICAID, SELFPAY | PROVIDERS: PCP Family Medicine; Visit Provider Podiatrist Foot & Ankle Surgery | DX: I73.9 Peripheral vascular disease, unspecified (principal); M14.672 Charcot's joint, left ankle and foot | CPT/HCPCS: 99214 ==

== ENCOUNTER 2023-02-12 16:29 | Inpatient (IN) | payer MEDICARE, MEDICAID, SELFPAY ==
[2023-02-12] VITALS (12 sets, daily range): BP systolic 95–133; BP diastolic 64–80; PULSE 67–88; RESP 10–20; TEMP 36.3–36.8; O2SAT 94–100; BMI 56.4
--- NOTE | 2023-02-12 | XR_ITS ---
WS: [id number] Exam: XR ankle RT 2V [id number] Date/Time of Exam: 02/12/2023 12:00 AM Reason For Exam: Irrigation and debridement grade 2 right open ankle fracture Intraoperative AP and lateral C-arm images of the right ankle are submitted for evaluation. Images ob tained for intraoperative purposes. Trimalleolar fracture again noted. External fixator noted in the region of the calcaneus.
--- NOTE | 2023-02-12 16:34 | XRR_ITS ---
PROCEDURE INFORMATION: Exam: XR Right Ankle Exam date and time: 02/12/2023 4:39 PM Age: 57 years old Clinical indication: Injury or trauma; Fall; Sprain or strain; Ankle; Right; Additional info: Open distal tib fib FX TECHNIQUE: Imaging protocol: Radiologic exam of the right ankle. Views: 3 or more views. COMPARISON: No relevant prior studies available. FINDINGS: Bones/joints: Distal fibular metaphyseal vertically oriented fracture with mild displacement. Medial displacement of the tibia relative the talus by at least 16 mm. Posterior malleolar vertically oriented displaced fracture with articular involvement at the tibiotalar joint along with anterior displacement of the distal tibia relative the talus by at least 18 mm. Suspected inferior malleolar tip displaced avulsion fracture. Soft tissues: Soft tissue swelling about the ankle. Vasculature: Scattered vascular calcifications. XR/XR ankle RT min 3V* [id number] IMPRESSION: 1. Distal fibular metaphyseal vertically oriented fracture with mild displacement. 2. Medial displacement of the tibia relative the talus by at least 16 mm. 3. Posterior malleolar vertically oriented displaced fracture with articular involvement at the tibiotalar joint along with anterior displacement of the distal tibia relative the talus by at least 18 mm. 4. Suspected inferior malleolar tip displaced avulsion fracture. 5. Scattered vascular calcifications. 6. Soft tissue swelling about the ankle.
--- NOTE | 2023-02-12 16:36 | W.ED.TRAUMA ---
HPI - Trauma General: Chief Complaint: Trauma Stated Complaint: open tib fx Time Seen by Provider: 02/12/23 16:34 History of Present Illness: Patient presents to the ER by EMS with complaints of open distal tib-fib fracture on the right secondary to falling while getting out of his vehicle. Bleeding is controlled patient has good cap refill and sensation distal to the wound. Patient was given 250 mcg of fentanyl, 4 Zofran, 3 g of Ancef by EMS on route. Patient does have an extensive medical history and is currently wearing a boot on his left foot. Patient is alert and oriented x3 and denies pain anywhere else. Review of Systems General: Reports: 10 or more systems reviewed and unremarkable except in HPI and below PFSH ED PFSH: Medical History Acute hepatic encephalopathy Alcoholic cirrhosis of liver with ascites Anasarca Anemia Ataxia Atrial fibrillation and flutter BMI 50.0-59.9, adult BPH loc w urin obs/LUTS C. difficile diarrhea Charcot's arthropathy left foot Charcot's joint of left foot CHF (congestive heart failure) Echocardiogram done in 2019 shows an EF of 40 to 45% with hypokinetic septum, anteroseptum and inferior wall, biatrial enlargement Chronic hyponatremia varies with volume status Chronic kidney disease Contraindication to deep vein thrombosis (DVT) prophylaxis COPD (chronic obstructive pulmonary disease) Encephalopathy, hepatic End-stage liver disease not a candidate for transplant or tips at last evaluation Erectile dysfunction Esophageal varices Fracture of fourth metatarsal bone of left foot Fracture of second metatarsal bone of left foot Fracture of third metatarsal bone of left foot Hepatorenal syndrome History of abdominal paracentesis History of peritonitis Hx of esophageal varices Hypertension Hypothyroidism Morbid obesity Neuropathy Non-pressure chronic ulcer of other part of left foot limited to breakdown of skin Occult blood in stools Peritoneal dialysis catheter in situ Removed in 05/2021 due to recurrent bacterial peritonitis Peyronie disease Physical deconditioning Pleural effusion associated with hepatic disorder Pneumonia Portal hypertension PVD (peripheral vascular disease) PVD (peripheral vascular disease) Seizure Splenomegaly Stereotyped movements Upper gastrointestinal hemorrhage due to gastritis EGD with pyloric ulcer in 05/2021 Urinary tract infection Surgical History H/O colonoscopy H/O esophagogastroduodenoscopy History of tonsillectomy Hx of umbilical hernia repair Hx of vasectomy Status post surgery (07/05/20) peritoneal catheter for ascites Family History Grandfather CAD (coronary artery disease) Grandmother CAD (coronary artery disease) Cancer Father Cancer Denies family history of Anesthesia complication Bleeding disorder Social History Substance/Drug Use: never Housing: [facility] Marital status: Current occupational status: disabled Do you think of yourself as: Straight/Heterosexual Current gender identity: Male Physical Exam Const: COMMON NORMALS: no acute distress, patient oriented x3, no limitations, alert and well nourished GENERAL APPEARANCE: cooperative and comfortable NUTRITIONAL APPEARANCE: obese HENMT: COMMON NORMALS: normocephalic, atraumatic, hearing grossly normal bilaterally, external ears normal, Normal external nose present and moist oral mucous membranes HEAD & SCALP: normocephalic and atraumatic NOSE: Normal external nose present EXTERNAL EAR: Yes external ears normal Eye: COMMON NORMALS: Equal, round and reactive pupils present, EOMs intact bilaterally, conjunctivae normal and no scleral icterus CONJUNCTIVA: Yes conjunctivae normal PUPIL: Yes Equal, round and reactive pupils present Neck/C-Spine: COMMON NORMALS: no JVD Chest: COMMONS NORMALS: normal inspection of the chest and normal palpation of entire chest wall Resp: COMMON NORMALS: normal respiratory effort, No use of accessory muscles and clear to auscultation bilaterally AUSCULTATION: clear to auscultation bilaterally Cardio: COMMON NORMALS: no JVD, regular rate, regular rhythm, S1 normal heart sound present, S2 normal heart sound present, No gallops present (Cardio), No clicks present (Cardio), No murmurs present (Cardio), No rub (Cardio) and Peripheral pulses 2+ throughout RATE: regular rate RHYTHM: regular rhythm HEART SOUNDS: S1 normal heart sound present and S2 normal heart sound present PERIPHERAL PULSES: Peripheral pulses 2+ throughout GI: COMMON NORMALS: Normal to inspection, nondistended, normoactive bowel sounds present, Soft to palpation, non-tender, No hepatosplenomegaly present and no masses PALPATION: Yes Soft to palpation and Yes No hepatosplenomegaly present Extremity: NARRATIVE EXTREMITY EXAM: Patient has what appears to be a right open distal tib-fib fracture with possible dislocation with about a 5 inch laceration by about 2 inches. Patient does have good cap refill and sensation distal to the wound. Bleeding is controlled. Neuro: COMMON NORMALS: patient oriented x3 SENSORIUM/ORIENTATION: Yes alert Course Vital Signs: Vital signs: Vital Signs Temperature 98.3 F 02/12/23 16:32 Pulse Rate 76 02/12/23 16:32 Respiratory Rate 19 H 02/12/23 16:32 Blood Pressure 95/68 02/12/23 16:32 Pulse Oximetry 96 02/12/23 16:32 Oxygen Delivery Me thod Room Air 02/12/23 16:32 MDM - Trauma Medical Decision Making Patient presents to the ER by EMS with open distal leg fracture secondary to trauma. Patient was given 3 g of Ancef, 250 mcg of fentanyl, 4 mg Zofran on route. Patient already has a boot on the left side and sees Dr. Carrera for it. X-rays was obtained which showed obvious open fracture possible dislocation, Dr. Cuellar was notified lab work was obtained and further imaging and EKG. Dr. Cardona was notified and agreed for admission for care of patient's multiple comorbid conditions. Dr. Cuellar said he probably operate on him tomorrow. Differential Diagnosis Unlikely penetrating abdominal trauma, kidney laceration, fracture of mandible, hemorrhagic shock or gunshot wound of chest cavity Medical Records I reviewed the patient's medical records. Lab Data I reviewed the patient's lab results. 02/12/23 16:48 02/12/23 16:48 Radiology Impressions Chest X-Ray 02/12/23 16:38 IMPRESSION: 1. Possible left posterior 8th rib nondisplaced fracture. 2. Cardiomegaly Laboratory Results WBC 7.6 10^3/uL (4.0-10.0) 02/12/23 16:48 RBC 3.53 10^6/uL (4.1-5.3) L 02/12/23 16:48 Hgb 12.3 g/dL (11.7-16.6) 02/12/23 16:48 Hct 35.7 % (42.0-52.0) L 02/12/23 16:48 MCV 101.1 fl (80-94) H 02/12/23 16:48 MCH 34.8 pg (28.0-34.0) H 02/12/23 16:48 MCHC 34.5 g/dL (30.0-36.0) 02/12/23 16:48 RDW 13.3 % (12.1-15.1) 02/12/23 16:48 Plt Count 139 10^3/cmm (130-400) 02/12/23 16:48 MPV 9.9 fL (7.4-10.4) 02/12/23 16:48 Neut % (Auto) 70.0 % 02/12/23 16:48 Lymph % (Auto) 13.7 % 02/12/23 16:48 [place] % (Auto) 12.7 % 02/12/23 16:48 Eos % (Auto) 2.6 % 02/12/23 16:48 Baso % (Auto) 0.7 % 02/12/23 16:48 Neut # (Auto) 5.30 10^3/uL (1.8-7.7) 02/12/23 16:48 Lymph # (Auto) 1.0 10^3/uL (0.8-4.8) 02/12/23 16:48 [place] # (Auto) 1.0 10^3/uL (0.2-0.9) H 02/12/23 16:48 Eos # (Auto) 0.2 10^3/uL (0.0-0.8) 02/12/23 16:48 Baso # (Auto) 0.1 10^3/uL (0.0-0.1) 02/12/23 16:48 Nucleated RBC % (auto) 0 % 02/12/23 16:48 Nucleated RBCs # 0.0 /100WBC 02/12/23 16:48 Discharge Plan Discharge Patient Disposition: Admitted As Inpatient Clinical Impression: Ankle fracture, right Qualifiers: Encounter type: initial encounter Fracture type: open Condition: Stable Coding Level of Care Code ED Managing Consultant Clinical Professor for Tay Rust
--- NOTE | 2023-02-12 16:38 | XRR_ITS ---
PROCEDURE INFORMATION: Exam: XR Chest Exam date and time: 02/12/2023 4:52 PM Age: 57 years old Clinical indication: Injury or trauma; Fall; Blunt trauma (contusions or hematomas) TECHNIQUE: Imaging protocol: Radiologic exam of the chest. Views: 1 view. COMPARISON: CR XR chest 1V portable [id number] 11/04/2022 11:14 AM FINDINGS: Lungs: Unremarkable. No consolidation. Pleural spaces: Unremarkable. No pleural effusion. No pneumothorax. Heart/Mediastinum: Cardiomegaly. Bones/joints: Possible left posterior 8th rib nondisplaced fracture. XR/XR chest 1V portable [id number] IMPRESSION: 1. Possible left posterior 8th rib nondisplaced fracture. 2. Cardiomegaly
[2023-02-12 16:54] LABS: Basophils # 0.1 10^3/uL (0.0-0.1); Basophils % 0.7 %; Eosinophils # 0.2 10^3/uL (0.0-0.8); Eosinophils % 2.6 %; Hematocrit 35.7 % (42.0-52.0); Hemoglobin 12.3 g/dL (11.7-16.6); Lymphocytes % 13.7 %; Mean Corpuscular HGB Conc 34.5 g/dL (30.0-36.0); Mean Corpuscular Hemoglobin 34.8 pg (28.0-34.0); Mean Corpuscular Volume 101.1 fl (80-94); Mean Platelet Volume 9.9 fL (7.4-10.4); Monocytes % 12.7 %; Nucleated Red Blood Cells % 0 %; Platelet Count 139 10^3/cmm (130-400); Red Blood Count 3.53 10^6/uL (4.1-5.3); Red Cell Distribution Width 13.3 % (12.1-15.1); White Blood Count 7.6 10^3/uL (4.0-10.0)
[2023-02-12] MEDS: fentaNYL 50 mcg/mL INJ 2mL 100 MCG IVP (17:15)
[2023-02-12] MEDS: sodium chloride 0.9% 1,000 ML 999 ML IV (17:15)
[2023-02-12 17:23] LABS: INR 1.16 (0.8-1.2)
--- NOTE | 2023-02-12 17:25 | PM.HP ---
Providers/Chief Complaint Primary Care Provider: Yosvany Segovia MD Chief Complaint: open tib fx History of Present Illness Yosvany Soto is a 57 year old male HFpEF, liver cirrhosis and end-stage liver disease, not found to be a candidate for liver transplantation, hepatorenal syndrome, seizures, morbid obesity, BMI 56.4, COPD, atrial fibrillation/flutter, chronic kidney disease, peripheral vascular disease, active smoker, hypoalbuminemia, chronic hyponatremia, CAD, Charcot's arthropathy, esophageal varices fell in his yard when he was getting out of his truck which he is attributing to his left knee buckling losing balance. Is not experience any chest pain, shortness of breath, syncope. He has been compliant with his medications. No recent episode of confusion. XR/XR ankle RT min 3V* [id number] IMPRESSION: 1. ? Distal fibular metaphyseal vertically oriented fracture with mild displacement. 2. ? Medial displacement of the tibia relative the talus by at least 16 mm. 3. ? Posterior malleolar vertically oriented displaced fracture with articular involvement at the tibiotalar joint along with anterior displacement of the distal tibia relative the talus by at least 18 mm. 4. ? Suspected inferior malleolar tip displaced avulsion fracture. 5. ? Scattered vascular calcifications. 6. ? Soft tissue swelling about the ankle He has been diagnosed with nondisplaced left eighth rib fracture as well Review of Systems Eyes: Denies: change in vision ENMT: Denies: throat pain Card: Denies: chest pain Resp: Denies: dyspnea GI: Reports: nausea : Denies: flank pain Musc: Denies: neck pain Skin/Breast: Denies: rash Neuro: Denies: headache(s) Psych: Reports: anxiety Endo: Denies: polyuria Avinash/Lymph: Denies: easy bruising All/Imm: Denies: urticaria Medications/Allergies Home Medications Medication Instructions Recorded Confirmed Last Taken Type vitamin B complex (Vitamins B 1 tab PO DAILY 01/04/20 02/13/23 11/03/22 History Complex tablet) tramadol 50 mg tablet 100 mg PO QAM 05/05/20 02/13/23 11/03/22 History folic acid 1 mg tablet 1 mg PO DAILY@07 08/23/20 02/13/23 11/03/22 History fluticasone propionate 50 2 spray intranasal DAILY 09/08/20 02/13/23 07/09/21 History mcg/actuation nasal spray,suspension (Flonase Allergy Relief) albuterol sulfate 90 mcg/actuation 1 puff inhalation Q4H PRN 12/11/20 02/13/23 07/09/21 History aerosol inhaler shortness of breath/wheezing vitamins A,C,B-kmaw-vqzuie 4,296 1 cap PO DAILY@02/11/21 02/13/23 11/03/22 History mcg-226 mg-90 mg capsule (PreserVision AREDS) diltiazem HCl 120 mg 120 mg PO DAILY@04/24/21 02/13/23 11/03/22 History capsule,extended release 24 hr (Cartia XT) cetirizine 10 mg tablet (Zyrtec) 10 mg PO DAILY@05/24/21 02/13/23 11/03/22 History levothyroxine 50 mcg tablet 50 mcg PO QAM 08/15/21 02/13/23 11/03/22 History midodrine 5 mg tablet 5 mg PO TID 09/01/21 02/13/23 11/03/22 History pantoprazole 40 mg tablet,delayed 40 mg PO DAILY 09/01/21 02/13/23 11/03/22 History release potassium chloride 20 mEq 20 meq PO BID@09/01/21 02/13/23 11/03/22 History tablet,extended release gabapentin 100 mg capsule 100 mg PO TID 10/20/21 02/13/23 11/03/22 History thiamine HCl (vitamin B1) 50 mg 50 mg PO DAILY 11/29/21 02/13/23 11/03/22 History tablet ferrous sulfate 325 mg (65 mg 325 mg PO DAILY 12/24/21 02/13/23 11/03/22 History iron) tablet (iron) levetiracetam 500 mg tablet 1,000 mg PO BID 12/24/21 02/13/23 11/03/22 History Diabetic Shoe of RT foot #1 ea 01/29/22 02/13/23 Unknown Rx Repairs and Adjustments to #1 ea 02/07/22 02/13/23 Unknown Rx brace/boot [employer] Boot to left #1 ea 03/22/22 02/13/23 Unknown Rx acetaminophen 325 mg tablet 325 - 650 mg PO Q4H PRN Pain 11/04/22 02/13/23 Unknown History (Tylenol) alfuzosin 10 mg tablet,extended 10 mg PO DAILY@11/04/22 02/13/23 11/03/22 History release 24 hr ibuprofen 200 mg capsule (Advil 400 mg PO Q6H PRN Pain 11/04/22 02/13/23 11/03/22 History Liqui-Gel) spironolactone 50 mg tablet 50 mg PO DAILY@11/04/22 02/13/23 11/03/22 History rifaximin 550 mg tablet (Xifaxan) 550 mg PO BID #60 tabs 11/08/22 02/13/23 11/03/22 Rx furosemide 40 mg tablet 80 mg PO BID 02/13/23 02/13/23 Unknown History lactulose 20 gram/30 mL oral See Rx Instructions .Route .COMPLEX 02/13/23 02/13/23 Unknown History solution naloxone 4 mg/actuation nasal spray 4 mg intranasal Q3M PRN overdose 02/13/23 02/13/23 Unknown History Allergies Allergy/AdvReac Type Severity Reaction Status Date / Time Penicillins Allergy ALGY-Difficulty Verified 02/12/23 16:36 Breathing Sulfa (Sulfonamide Allergy Unknown Verified 02/12/23 16:36 Antibiotics) PFSH Acute PFSH: Medical History Acute hepatic encephalopathy Alcoholic cirrhosis of liver with ascites Anasarca Anemia Ataxia Atrial fibrillation and flutter BMI 50.0-59.9, adult BPH loc w urin obs/LUTS C. difficile diarrhea Charcot's arthropathy left foot Charcot's joint of left foot CHF (congestive heart failure) Echocardiogram done in 2019 shows an EF of 40 to 45% with hypokinetic septum, anteroseptum and inferior wall, biatrial enlargement Chronic hyponatremia varies with volume status Chronic kidney disease Contraindication to deep vein thrombosis (DVT) prophylaxis COPD (chronic obstructive pulmonary disease) Encephalopathy, hepatic End-stage liver disease not a candidate for transplant or tips at last evaluation Erectile dysfunction Esophageal varices Fracture of fourth metatarsal bone of left foot Fracture of second metatarsal bone of left foot Fracture of third metatarsal bone of left foot Hepatorenal syndrome History of abdominal paracentesis History of peritonitis Hx of esophageal varices Hypertension Hypothyroidism Morbid obesity Neuropathy Non-pressure chronic ulcer of other part of left foot limited to breakdown of skin Occult blood in stools Peritoneal dialysis catheter in situ Removed in 05/2021 due to recurrent bacterial peritonitis Peyronie disease Physical deconditioning Pleural effusion associated with hepatic disorder Pneumonia Portal hypertension PVD (peripheral vascular disease) PVD (peripheral vascular disease) Seizure Splenomegaly Stereotyped movements Upper gastrointestinal hemorrhage due to gastritis EGD with pyloric ulcer in 05/2021 Urinary tract infection Surgical History H/O colonoscopy H/O esophagogastroduodenoscopy History of tonsillectomy Hx of umbilical hernia repair Hx of vasectomy Status post surgery (07/05/20) peritoneal catheter for ascites Family History Grandfather CAD (coronary artery disease) Grandmother CAD (coronary artery disease) Cancer Father Cancer Denies family history of Anesthesia complication Bleeding disorder Social History Substance/Drug Use: never Housing: [facility] Marital status: Current occupational status: disabled Do you think of yourself as: Straight/Heterosexual Current gender identity: Male Vitals/I&O/Wt Last Vital Signs Temp 98.3 F 02/12/23 16:32 Pulse 76 02/12/23 16:32 Resp 20 H 02/12/23 17:15 BP 95/68 02/12/23 16:32 Pulse Ox 99 02/12/23 17:15 O2 Del Method Room Air 02/12/23 16:32 Weight last 48 hrs Weight 188.694 kg Physical Exam Narrative: Morbidly obese male No active signs of hepatic encephalopathy abdomen distended nontender rt Lower extremity with lymphedema wraps Left leg covered in offloading boot Awake and alert Variable S1-S2 Currently on 2.5 L Pleasant and cooperative Complaining of pain in his legs Data 02/13/23 03:46 02/13/23 03:46 A&P Assessment and plan (1) Open fracture dislocation of right ankle: (2) Ankle fracture, right: Qualifiers: Encounter type: initial encounter Fracture type: open (3) Ankle injury: Qualifiers: Encounter type: initial encounter Laterality: left Qualified Code(s): S99.912A - Unspecified injury of left ankle, initial encounter Plan Right ankle open fracture Plan for surgical intervention tonight Monitor for any signs of vascular compromise ER nurse to do arterial Doppler In case of hypotension related to liver cirrhosis patient may benefit from albumin and Levophed after surgery No active signs of hepatic encephalopathy We will continue lactulose tomorrow Patient is full code Patient follows up with Dr. Carrera for his left foot he was due for CT scan to decide debridement versus intervention N.p.o. for now DVT prophylaxis on hold onto surgery I have requested Weir catheter placement No preoperative clearance needed for the urgent nature of surgery Nondisplaced left rib fracture Opioids along bowel regimen Attestations Medical Necessity Statement*: More than 2 midnights anticipated for management of lower extremity fracture Diagnoses Open fracture dislocation of right ankle S82.891B Ankle fracture, right S82.891A Encounter type: initial encounter Fracture type: open Ankle injury S99.912A Encounter type: initial encounter Laterality: left
[2023-02-12] MEDS: orphenadrine 30 mg/mL Inj 2 mL 60 MG IVP (17:30)
[2023-02-12 17:31] LABS: Alanine Aminotransferase 13 U/L (0-41); Albumin Level 3.1 g/dL (3.5-5.2); Alkaline Phosphatase 155 U/L (40-130); Anion Gap 13.8 (5-19); Aspartate Amino Transferase 22 U/L (0-40); Blood Urea Nitrogen 16 mg/dL (6-20); Calcium 8.7 mg/dL (8.5-10.5); Carbon Dioxide 28 mmol/L (22-29); Chloride 95 mmol/L (98-107); Glomerular Filtration Rate 52.1 mL/min (90-130); Glucose 107 mg/dL (65-115); Osmolality Calculated 278 mOsm/kg (285-295); Potassium 3.8 mmol/L (3.5-5.1); Sodium 133 mmol/L (136-145); Total Bilirubin 0.8 mg/dL (0.15-1.2); Total Protein 6.1 g/dL (6.6-8.7)
--- NOTE | 2023-02-12 17:46 | ECG_ITS ---
[facility] Test Date: 2023-02-12 Pat Name: Yosvany Soto Department: Room: Gender: Male Mosaicist: : 1965 Requested By: Monty Lam Order Number: [id number] Cade MD: Binta Pitt M.D. Measurements Intervals [place] Rate: 80 P: 0 MT: 0 QRS: 99 QRSD: 107 T: 59 QT: 425 QTc: 491 Interpretive Statements ATRIAL FIBRILLATION BORDERLINE RIGHT AXIS DEVIATION [QRS AXIS > 90] LOW QRS VOLTAGE IN PRECORDIAL LEADS [QRS DEFLECTION < 1.0 mV IN CHEST LEADS] SEPTAL MYOCARDIAL INFARCTION , PROBABLY OLD [40+ ms Q WAVE IN V1/V2] Compared to ECG 11/04/2022 11:04:43 No significant changes Electronically Signed On 02-13-2023 7:22:40 CDT by Binta Pitt M.D. [email or web address]
--- NOTE | 2023-02-12 18:16 | PM.HP ---
Providers/Chief Complaint Admitting Physician: Ted Cuellar MD; orthopedic surgeon Primary Care Provider: Yosvany Segovia MD Chief Complaint: open tib fx History of Present Illness Yosvany Soto is a 57 year old male who describes injuring his right ankle today stepping out of the truck. He is a larger male at he stepped down and twisted his ankle with it giving way and the resulting open wound medially. He was transferred by EMS here to our hospital radiographs have revealed a fracture dislocation of the right ankle. The patient is well-known to this institution for multiple medical problems. He was discharged from the hospital on 11/08/2023 after admission for hepatic encephalopathy. He apparently was doing well up until 3:00 today with the ankle injury. Medications/Allergies Home Medications Medication Instructions Recorded Confirmed Last Taken Type vitamin B complex (Vitamins B 1 tab PO DAILY 01/04/20 02/12/23 11/03/22 History Complex tablet) tramadol 50 mg tablet 100 mg PO DAILY@05/05/20 02/12/23 11/03/22 History folic acid 1 mg tablet 1 mg PO DAILY@08/23/20 02/12/23 11/03/22 History fluticasone propionate 50 1 - 2 spray intranasal DAILY PRN 09/08/20 02/12/23 07/09/21 History mcg/actuation nasal Allergy Symptoms spray,suspension albuterol sulfate 90 mcg/actuation 2 puff inhalation Q4H PRN 12/11/20 02/12/23 07/09/21 History aerosol inhaler shortness of breath/wheezing vitamins A,C,Q-cckb-mkcgeu 4,296 1 cap PO DAILY@02/11/21 02/12/23 11/03/22 History mcg-226 mg-90 mg capsule (PreserVision AREDS) diltiazem HCl 120 mg 120 mg PO DAILY@04/24/21 02/12/23 11/03/22 History capsule,extended release 24 hr (Cartia XT) cetirizine 10 mg tablet (Zyrtec) 10 mg PO DAILY@05/24/21 02/12/23 11/03/22 History levothyroxine 50 mcg tablet 50 mcg PO QAM 08/15/21 02/12/23 11/03/22 History midodrine 5 mg tablet 5 mg PO TID 09/01/21 02/12/23 11/03/22 History pantoprazole 40 mg tablet,delayed 40 mg PO DAILY 09/01/21 02/12/23 11/03/22 History release potassium chloride 20 mEq 20 meq PO BID@07,09/01/21 02/12/23 11/03/22 History tablet,extended release gabapentin 100 mg capsule 100 mg PO TID 10/20/21 02/12/23 11/03/22 History thiamine HCl (vitamin B1) 50 mg 50 mg PO DAILY 11/29/21 02/12/23 11/03/22 History tablet ferrous sulfate 325 mg (65 mg 325 mg PO DAILY 12/24/21 02/12/23 11/03/22 History iron) tablet (iron) levetiracetam 500 mg tablet 1,000 mg PO BID 12/24/21 02/12/23 11/03/22 History Diabetic Shoe of RT foot #1 ea 01/29/22 02/12/23 Unknown Rx Repairs and Adjustments to #1 ea 02/07/22 02/12/23 Unknown Rx brace/boot [employer] Boot to left #1 ea 03/22/22 02/12/23 Unknown Rx bumetanide 1 mg tablet 2 mg PO BID #180 tabs 10/30/22 02/12/23 11/03/22 Rx Lactobacillus rhamnosus GG 10 1 cap PO DAILY 11/04/22 02/12/23 Unknown History billion cell capsule (Culturelle) acetaminophen 325 mg tablet 325 - 650 mg PO Q4H PRN Pain 11/04/22 02/12/23 Unknown History (Tylenol) alfuzosin 10 mg tablet,extended 10 mg PO DAILY@07 11/04/22 02/12/23 11/03/22 History release 24 hr bisacodyl 10 mg rectal suppository 10 mg DE DAILY PRN Constipation 11/04/22 02/12/23 Unknown History (Dulcolax (bisacodyl)) ibuprofen 200 mg capsule (Advil 200 mg PO DAILY 11/04/22 02/12/23 11/03/22 History Liqui-Gel) magnesium hydroxide 400 mg/5 mL 30 ml PO DAILY PRN Constipation 11/04/22 02/12/23 Unknown History oral suspension (Milk of Magnesia) nystatin 100,000 unit/gram topical See Rx Instructions .Route .COMPLEX 11/04/22 02/12/23 Unknown History powder ([facility]) ondansetron HCl 4 mg tablet 4 mg PO Q4H PRN Nausea And Vomiting 11/04/22 02/12/23 Unknown History propranolol 20 mg tablet 20 mg PO BID@07,19 11/04/22 02/12/23 11/03/22 History sodium phosphates 19 gram-7 118 ml DE DAILY PRN Constipation 11/04/22 02/12/23 Unknown History gram/118 mL enema (Fleet Enema) spironolactone 50 mg tablet 50 mg PO DAILY@07 11/04/22 02/12/23 11/03/22 History lactulose 20 gram/30 mL oral 30 g (45 mL) PO Q12H #3,000 mL 11/08/22 02/12/23 Unknown Rx solution levofloxacin 750 mg tablet 750 mg PO DAILY@0600 #5 tabs 11/08/22 02/12/23 Unknown Rx rifaximin 550 mg tablet (Xifaxan) 550 mg PO BID #60 tabs 11/08/22 02/12/23 11/03/22 Rx Allergies Allergy/AdvReac Type Severity Reaction Status Date / Time Penicillins Allergy ALGY-Difficulty Verified 02/12/23 16:36 Breathing Sulfa (Sulfonamide Allergy Unknown Verified 02/12/23 16:36 Antibiotics) PFSH Acute PFSH: Medical History Acute hepatic encephalopathy Alcoholic cirrhosis of liver with ascites Anasarca Anemia Ataxia Atrial fibrillation and flutter BMI 50.0-59.9, adult BPH loc w urin obs/LUTS C. difficile diarrhea Charcot's arthropathy left foot Charcot's joint of left foot CHF (congestive heart failure) Echocardiogram done in 2019 shows an EF of 40 to 45% with hypokinetic septum, anteroseptum and inferior wall, biatrial enlargement Chronic hyponatremia varies with volume status Chronic kidney disease Contraindication to deep vein thrombosis (DVT) prophylaxis COPD (chronic obstructive pulmonary disease) Encephalopathy, hepatic End-stage liver disease not a candidate for transplant or tips at last evaluation Erectile dysfunction Esophageal varices Fracture of fourth metatarsal bone of left foot Fracture of second metatarsal bone of left foot Fracture of third metatarsal bone of left foot Hepatorenal syndrome History of abdominal paracentesis History of peritonitis Hx of esophageal varices Hypertension Hypothyroidism Morbid obesity Neuropathy Non-pressure chronic ulcer of other part of left foot limited to breakdown of skin Occult blood in stools Peritoneal dialysis catheter in situ Removed in 05/2021 due to recurrent bacterial peritonitis Peyronie disease Physical deconditioning Pleural effusion associated with hepatic disorder Pneumonia Portal hypertension PVD (peripheral vascular disease) PVD (peripheral vascular disease) Seizure Splenomegaly Stereotyped movements Upper gastrointestinal hemorrhage due to gastritis EGD with pyloric ulcer in 05/2021 Urinary tract infection Surgical History H/O colonoscopy H/O esophagogastroduodenoscopy History of tonsillectomy Hx of umbilical hernia repair Hx of vasectomy Status post surgery (07/05/20) peritoneal catheter for ascites Family History Grandfather CAD (coronary artery disease) Grandmother CAD (coronary artery disease) Cancer Father Cancer Denies family history of Anesthesia complication Bleeding disorder Social History Substance/Drug Use: never Housing: [facility] Marital status: Current occupational status: disabled Do you think of yourself as: Straight/Heterosexual Current gender identity: Male Vitals/I&O/Wt Last Vital Signs Temp 98.3 F 02/12/23 16:32 Pulse 76 02/12/23 16:32 Resp 20 H 02/12/23 17:15 BP 95/68 02/12/23 16:32 Pulse Ox 99 02/12/23 17:15 O2 Del Method Room Air 02/12/23 16:32 Weight last 48 hrs Weight 416 lb Physical Exam Narrative: The patient is a morbidly obese white male supine on the stretcher. HEAD: Normocephalic/atraumatic. NECK: Soft supple nontender. HEART: Normal heart sounds, regular rhythm. CHEST: Clear to auscultation. ABDOMEN: Soft nontender nondistended. He has clear external rotation of his right ankle. There is a large wound extending from just medial to his of Achilles extending up over the medial malleolus to the anterior ankle. The wound itself feels very clean. Measures approximately 10 cm long. The medial malleolus is visualized hanging out of the skin. Limb was provisionally revealed reduced. After better alignment I still was unable to Doppler a dorsalis pedis or tibialis posterior pulse. He could clearly fire his gastrocsoleus and tibialis and toe extensor and flexor tendons but displayed no purposeful movement. Sensation is grossly intact to light touch throughout the foot. Data 02/12/23 16:48 02/12/23 16:48 Xray Ortho: My impression: 3 views of the right ankle are reviewed. He appears to have a fracture dislocation of the ankle. The ankle is displaced posteriorly and laterally. He is a posterior malleolar fracture and spiral fracture of the fibula. No medial fracture is identified. A&P Assessment and plan (1) Open fracture dislocation of right ankle: The patient has a unstable fracture dislocation of the right ankle. With the degree of displacement vascularity of the foot is compromised. This is a large open wound and I think our best option would be to proceed to the operating room for aggressive irrigation and debridement and a loose closure. I think an external fixator would be the best choice to provide provisional stability until her soft tissue envelope heals. The patient has a severe ankle injury and multiple medical comorbidities. I made him well aware of the risk that could include loss of the lower leg. I discussed risk of bleeding infection. Discussed the likely need for multiple procedures. He has multiple Medical comorbidities and I will involve medicine in his care. We will proceed to the operating room tonight for exploration of wound, irrigation and debridement, and external fixator placement. Attestations Medical Necessity Statement*: Needs admission to the hospital for surgical treatment IV and biotics and medical management Coding Level of Care Code Acute Code for [facility] Diagnoses Open fracture dislocation of right ankle S82.891B
--- NOTE | 2023-02-12 18:17 | ANES.PREANE2 ---
Pre-Anesthetic Assessment Height/Weight: Height 1.83 m Weight 188.694 kg Temp Pulse Resp BP Pulse Ox O2 Del Method 98.3 F 76 20 H 95/68 99 Room Air 02/12/23 16:32 02/12/23 16:32 02/12/23 17:15 02/12/23 16:32 02/12/23 17:15 02/12/23 16:32 I & D w/ ex fix Familial anesthetic complications: None Was Beta Rosana taken within 24 hours: N/A Was Clonidine taken within 24 hours: N/A Last intake: > 8hrs Social No alcohol and No tobacco ETOH abuse Exam alert, oriented x 3, clear to auscultation bilaterally and regular rate & rhythm Airway Mallampati: Class III Dentition: chipped CV/HEM Atrial Fibrillation, Congestive Heart Failure and Hypertension CKD Hepatic ESLD w/ hx acoholic cirrhosis Metabolic Morbid Obesity Anesthetic Plan ASA status: 4 Anesthesia: General and Regional (specify below) Risk of > 500 ml blood loss (7ml/kg in children): No Medications/Allergies Home Medications Medication Instructions Recorded Confirmed Last Taken Type vitamin B complex (Vitamins B 1 tab PO DAILY 01/04/20 02/12/23 11/03/22 History Complex tablet) tramadol 50 mg tablet 100 mg PO DAILY@05/05/20 02/12/23 11/03/22 History folic acid 1 mg tablet 1 mg PO DAILY@08/23/20 02/12/23 11/03/22 History fluticasone propionate 50 1 - 2 spray intranasal DAILY PRN 09/08/20 02/12/23 07/09/21 History mcg/actuation nasal Allergy Symptoms spray,suspension albuterol sulfate 90 mcg/actuation 2 puff inhalation Q4H PRN 12/11/20 02/12/23 07/09/21 History aerosol inhaler shortness of breath/wheezing vitamins A,C,W-lumo-vwwqsa 4,296 1 cap PO DAILY@02/11/21 02/12/23 11/03/22 History mcg-226 mg-90 mg capsule (PreserVision AREDS) diltiazem HCl 120 mg 120 mg PO DAILY@04/24/21 02/12/23 11/03/22 History capsule,extended release 24 hr (Cartia XT) cetirizine 10 mg tablet (Zyrtec) 10 mg PO DAILY@07 05/24/21 02/12/23 11/03/22 History levothyroxine 50 mcg tablet 50 mcg PO QAM 08/15/21 02/12/23 11/03/22 History midodrine 5 mg tablet 5 mg PO TID 09/01/21 02/12/23 11/03/22 History pantoprazole 40 mg tablet,delayed 40 mg PO DAILY 09/01/21 02/12/23 11/03/22 History release potassium chloride 20 mEq 20 meq PO BID@09/01/21 02/12/23 11/03/22 History tablet,extended release gabapentin 100 mg capsule 100 mg PO TID 10/20/21 02/12/23 11/03/22 History thiamine HCl (vitamin B1) 50 mg 50 mg PO DAILY 11/29/21 02/12/23 11/03/22 History tablet ferrous sulfate 325 mg (65 mg 325 mg PO DAILY 12/24/21 02/12/23 11/03/22 History iron) tablet (iron) levetiracetam 500 mg tablet 1,000 mg PO BID 12/24/21 02/12/23 11/03/22 History Diabetic Shoe of RT foot #1 ea 01/29/22 02/12/23 Unknown Rx Repairs and Adjustments to #1 ea 02/07/22 02/12/23 Unknown Rx brace/boot [place] Boot to left #1 ea 03/22/22 02/12/23 Unknown Rx bumetanide 1 mg tablet 2 mg PO BID #180 tabs 10/30/22 02/12/23 11/03/22 Rx Lactobacillus rhamnosus GG 10 1 cap PO DAILY 11/04/22 02/12/23 Unknown History billion cell capsule (Culturelle) acetaminophen 325 mg tablet 325 - 650 mg PO Q4H PRN Pain 11/04/22 02/12/23 Unknown History (Tylenol) alfuzosin 10 mg tablet,extended 10 mg PO DAILY@07 11/04/22 02/12/23 11/03/22 History release 24 hr bisacodyl 10 mg rectal suppository 10 mg MI DAILY PRN Constipation 11/04/22 02/12/23 Unknown History (Dulcolax (bisacodyl)) ibuprofen 200 mg capsule (Advil 200 mg PO DAILY 11/04/22 02/12/23 11/03/22 History Liqui-Gel) magnesium hydroxide 400 mg/5 mL 30 ml PO DAILY PRN Constipation 11/04/22 02/12/23 Unknown History oral suspension (Milk of Magnesia) nystatin 100,000 unit/gram topical See Rx Instructions .Route .COMPLEX 11/04/22 02/12/23 Unknown History powder (Nyamyc) ondansetron HCl 4 mg tablet 4 mg PO Q4H PRN Nausea And Vomiting 11/04/22 02/12/23 Unknown History propranolol 20 mg tablet 20 mg PO BID@07,19 11/04/22 02/12/23 11/03/22 History sodium phosphates 19 gram-7 118 ml MI DAILY PRN Constipation 11/04/22 02/12/23 Unknown History gram/118 mL enema (Fleet Enema) spironolactone 50 mg tablet 50 mg PO DAILY@07 11/04/22 02/12/23 11/03/22 History lactulose 20 gram/30 mL oral 30 g (45 mL) PO Q12H #3,000 mL 11/08/22 02/12/23 Unknown Rx solution levofloxacin 750 mg tablet 750 mg PO DAILY@0600 #5 tabs 11/08/22 02/12/23 Unknown Rx rifaximin 550 mg tablet (Xifaxan) 550 mg PO BID #60 tabs 11/08/22 02/12/23 11/03/22 Rx Allergies Allergy/AdvReac Type Severity Reaction Status Date / Time Penicillins Allergy ALGY-Difficulty Verified 02/12/23 16:36 Breathing Sulfa (Sulfonamide Allergy Unknown Verified 02/12/23 16:36 Antibiotics) [facility] Anesthesia Medical History Acute hepatic encephalopathy Alcoholic cirrhosis of liver with ascites Anasarca Anemia Ataxia Atrial fibrillation and flutter BMI 50.0-59.9, adult BPH loc w urin obs/LUTS C. difficile diarrhea Charcot's arthropathy left foot Charcot's joint of left foot CHF (congestive heart failure) Echocardiogram done in 2019 shows an EF of 40 to 45% with hypokinetic septum, anteroseptum and inferior wall, biatrial enlargement Chronic hyponatremia varies with volume status Chronic kidney disease Contraindication to deep vein thrombosis (DVT) prophylaxis COPD (chronic obstructive pulmonary disease) Encephalopathy, hepatic End-stage liver disease not a candidate for transplant or tips at last evaluation Erectile dysfunction Esophageal varices Fracture of fourth metatarsal bone of left foot Fracture of second metatarsal bone of left foot Fracture of third metatarsal bone of left foot Hepatorenal syndrome History of abdominal paracentesis History of peritonitis Hx of esophageal varices Hypertension Hypothyroidism Morbid obesity Neuropathy Non-pressure chronic ulcer of other part of left foot limited to breakdown of skin Occult blood in stools Peritoneal dialysis catheter in situ Removed in 05/2021 due to recurrent bacterial peritonitis Peyronie disease Physical deconditioning Pleural effusion associated with hepatic disorder Pneumonia Portal hypertension PVD (peripheral vascular disease) PVD (peripheral vascular disease) Seizure Splenomegaly Stereotyped movements Upper gastrointestinal hemorrhage due to gastritis EGD with pyloric ulcer in 05/2021 Urinary tract infection Surgical History H/O colonoscopy H/O esophagogastroduodenoscopy History of tonsillectomy Hx of umbilical hernia repair Hx of vasectomy Status post surgery (07/05/20) peritoneal catheter for ascites Family History Grandfather CAD (coronary artery disease) Grandmother CAD (coronary artery disease) Cancer Father Cancer Denies family history of Anesthesia complication Bleeding disorder Social History Substance/Drug Use: never 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 Marital status: Current occupational status: disabled Do you think of yourself as: Straight/Heterosexual Current gender identity: Male Data Anesthesia 02/12/23 16:48 02/12/23 16:48 Short CBC 02/12/23 Range/Units 16:48 WBC 7.6 (4.0-10.0) 10^3/uL Hgb 12.3 (11.7-16.6) g/dL Hct 35.7 L (42.0-52.0) % MCV 101.1 H (80-94) fl Plt Count 139 (130-400) 10^3/cmm Neut % (Auto) 70.0 % Neut # (Auto) 5.30 (1.8-7.7) 10^3/uL BMP 02/12/23 16:48 Sodium 133 L Potassium 3.8 Chloride 95 L Carbon Dioxide 28 BUN 16 Creatinine 1.4 H Glucose 107 Calcium 8.7 Liver Function 02/12/23 Range/Units 16:48 Total Bilirubin 0.8 (0.15-1.2) mg/dL AST 22 (0-40) U/L ALT 13 (0-41) U/L Alkaline Phosphatase 155 H (40-130) U/L Albumin 3.1 L (3.5-5.2) g/dL Blood Bank 02/12/23 17:23 Blood Type O Positive Rho(D) Type Positive Coags 02/12/23 16:48 PT 15.20 H INR 1.16 Cardiac Studies: Echocardiogram 10/22/22 Echocardiogram Ultrasound 05/31/20
[2023-02-12] MEDS: ceFAZolin 3,000 MG in sodium chloride 0.9% (100 ml) 100 ML 200 MG IV (19:35)
--- NOTE | 2023-02-12 21:30 | P.OP_ITS ---
Operative Report Date of procedure: February 12, 2023 Pre-op diagnosis: Preop Diagnosis Open right ankle fracture dislocation Post-op diagnosis: same Procedure done: Irrigation and debridement grade 2 right open ankle fracture dislocation External fixator placement right lower extremity Implants: [place] external fixator Pathology: none sent Surgeon: Ted Cuellar Anesthesia: General Estimated blood loss (mL): 20 Complications: None Findings: The patient had a open right ankle fracture dislocation. There is a 18 cm long laceration beginning from the medial aspect of the skin overlying Achilles extending proximally and anteriorly across the ankle joint and to the anterior distal third of the leg. There is exposed medial tibia and ankle joint within the wound. Radiographs revealed a lateral and posterior malleolar fracture. Multiple intraoperative small medial malleolar fragments were identified the time of surgery. No gross contamination was identified Condition: stable Disposition: PACU Brief History: Mr. Soto is a 57-year-old male who twisted his ankle getting out of his truck with a grade 2 open ankle trimalleolar fracture dislocation. He was taken to the operating room for aggressive irrigation debridement wound closure and external fixator placement to a stabilized to the ankle Procedure: The patient was taken to the operating room. He was given 3 g of Ancef and 80 mg of gentamicin. Spinal anesthesia was provided by the anesthesia service. A timeout was performed. The right lower extremity was prepped and draped in the usual fashion with the right ankle exposed. Initially aggressive debridement of the ankle was accomplished with a pulse lavage. Approximately 6 L of fluid were irrigated through the ankle joint and over the medial tissues. Loose and devitalized tissue was debrided back with scissors and electrocautery. With the ankle unstable and externally rotated a small stab wound was made of the medial calcaneus and the calcaneal pin passed across the calcaneus through the medial skin exiting the lateral skin. Attention was then focused on closure of the wound. Use of interrupted #1 and 0 Vicryl suture the wound was loosely closed approximating all skin edges. Next 2 half pins were placed over the anterior medial tibia. Pins were then linked by medial and lateral bar to the calcaneal pin. Under visualization of fluoroscopy pin position was verified. The ankle was reduced and the fixator tightened. The lower leg was cleaned with saline. Pin sites the medial wound was covered with Xeroform gauze. 4 x 4's and ABD pads were placed over the medial wound and 4 x 4's placed over the tibial and calcaneal pin sites. Kerlix roll and Josh wrap was applied. At the conclusion of the procedure a dopplerable dorsalis pedis and tibialis posterior pulse were noted and the foot seem well-perfused. The patient was taken to recovery in stable condition.
[2023-02-12] MEDS: acetaminophen 500 mg Tablet 1000 MG PO (21:50)
[2023-02-12] MEDS: sodium chloride 0.9% 1,000 ML 80 ML IV (21:51)
--- NOTE | 2023-02-12 22:06 | PC.NURSE ---
Patient came to floor with merlos catheter in place.
--- NOTE | 2023-02-12 22:11 | PC.NURSE ---
Pharmacy will need to be called in AM to complete patient's med rec.
--- NOTE | 2023-02-12 22:15 | ANE.PACU2 ---
Inpatient post-anesthesia follow up: Airway intact: Yes Vital signs: Temperature 97.4 F Pulse Rate 82 Respiratory Rate 16 Blood Pressure 113/67 Pulse Oximetry 91 Oxygen Delivery Me thod Room Air Oxygen Flow Rate Fraction of Inspir ed Oxygen Hydration adequate: Yes Nausea and vomiting: No Pain level: 1 Mental status: Baseline
[2023-02-13] VITALS (11 sets, daily range): BP systolic 110–117; BP diastolic 67–79; PULSE 74–82; RESP 16–20; TEMP 36.6–36.8; O2SAT 90–97
[2023-02-13] MEDS: oxyCODONE 5 mg IR Tab/Cap PO ×4 (00:49→19:52)
[2023-02-13] MEDS: morphine 4 mg/mL SDV 1 mL 2 MG IVP (01:34)
--- NOTE | 2023-02-13 01:58 | PC.NURSE ---
Addendum entered by Maria Elena Zamora RN 02/13/23 03:11: Notified of monitoring tech of 1.4. Toradol x1 ordered. Original Note: Patient c/o pain 8/10 not relieved by PRN Oxy or PRN Morphine. Dr. Watson notified.
[2023-02-13] MEDS: ceFAZolin 1,000 MG in sodium chloride 0.9% (plus) 50 ML 100 MG IV ×3 (03:19→19:53)
[2023-02-13] MEDS: ketorolac 30 mg/mL INJ 15 MG IVP (03:19)
[2023-02-13 04:45] LABS: Basophils % 0.4 %; Eosinophils # 0.1 10^3/uL (0.0-0.8); Eosinophils % 1.6 %; Hematocrit 33.5 % (42.0-52.0); Hemoglobin 11.1 g/dL (11.7-16.6); Lymphocytes # 0.9 10^3/uL (0.8-4.8); Lymphocytes % 9.8 %; Mean Corpuscular HGB Conc 33.1 g/dL (30.0-36.0); Mean Corpuscular Hemoglobin 34.8 pg (28.0-34.0); Mean Platelet Volume 10.2 fL (7.4-10.4); Monocytes % 11.1 %; Neutrophils # 6.88 10^3/uL (1.8-7.7); Neutrophils % 76.8 %; Nucleated Red Blood Cells % 0 %; Platelet Count 151 10^3/cmm (130-400); Red Blood Count 3.19 10^6/uL (4.1-5.3); Red Cell Distribution Width 13.2 % (12.1-15.1)
[2023-02-13] MEDS: acetaminophen 500 mg Tablet 1000 MG PO ×3 (04:46→19:52)
[2023-02-13 05:07] LABS: Blood Urea Nitrogen 16 mg/dL (6-20); Calcium 8.4 mg/dL (8.5-10.5); Carbon Dioxide 29 mmol/L (22-29); Chloride 97 mmol/L (98-107); Glomerular Filtration Rate 48.1 mL/min (90-130); Glucose 107 mg/dL (65-115); Magnesium 2.1 mg/dL (1.7-2.3); Osmolality Calculated 280 mOsm/kg (285-295); Phosphorus 4.2 mg/dL (2.5-4.5); Sodium 134 mmol/L (136-145)
[2023-02-13 05:10] LABS: Anion Gap 12.7 (5-19); Potassium 4.7 mmol/L (3.5-5.1)
--- NOTE | 2023-02-13 06:30 | PC.NURSE ---
Patient currently resting with eyes closed. Appears to be comfortable. Will continue to monitor and reassess.
--- NOTE | 2023-02-13 08:46 | PM.PN ---
Subjective Subjective: Status post intervention Postop day 1 No postoperative complications Hemoglobin stable Afebrile Pain well managed Patient was stating that he would like to go home with a talked about rehab because now he has an external fixator he wants able to go home and his home health services personnel will not be able to take care of him at all he is willing to consider rehab/SNF Vitals/I&O/Wt Last Vital Signs Temp 97.4 F L 02/12/23 21:38 Pulse 82 02/13/23 07:59 Resp 16 02/13/23 07:59 BP 113/67 02/13/23 06:12 Pulse Ox 91 02/13/23 07:59 O2 Del Method Room Air 02/13/23 07:59 02/12/23 02/13/23 02/13/23 22:59 06:59 14:59 Intake Total 1202 / 1202 50 / 1252 Output Total / Balance 1177 / 1177 50 / 1227 Weight last 48 hrs Weight 188.694 kg Physical Exam Narrative: Morbidly obese Also hepatic encephalopathy GCS 15 Nonfocal neuro exam Right leg with external fixator No signs of vascular compromise Hemodynamically stable Abdomen distended nontender GCS 15 Currently on room air Urinary Catheter Management: Weir: Cath Placed During This Visit: yes Reason for Continuing Indwelling Catheter: Required Immobilization for Trauma or Surgery or Anesthesia Urinary Catheter Date of Insertion: 02/12/23 Urinary Catheter Time of Insertion: 21:00 Data 02/13/23 03:46 02/13/23 03:46 A&P Assessment and plan (1) Open fracture dislocation of right ankle: (2) Ankle fracture, right: Qualifiers: Encounter type: initial encounter Fracture type: open Plan Right ankle fracture Postop days 1 No perioperative complications Hemoglobin and blood pressure stable Afebrile Doing well room air Opioids for analgesia along bowel regimen I would continue lactulose because he carries history of liver cirrhosis Continue heparin for DVT prophylaxis no active signs of variceal bleed I would avoid Celebrex that can make him vulnerable to develop a clot he also history of variceal bleed, portal hypertension Continue diet PT/PT most likely will need SNF Liver cirrhosis without active signs of decompensation Attestations Medical Necessity Statement*: Continue medical management Diagnoses Open fracture dislocation of right ankle S82.891B Ankle fracture, right S82.891A Encounter type: initial encounter Fracture type: open
--- NOTE | 2023-02-13 08:47 | PC.PHAR ---
pt states he knows what medications he takes -pt states he takes lactulose three to four times a week ext doesnt show when last filled rx written11/08/22 30g [id number] states he is still taking kcl 20meq bid ext med history shows last filled 11/20/22 30d/s-notes are made in the pharmacy comments
[2023-02-13] MEDS: heparin 5,000 unit/mL INJ 1 mL 5000 UNIT SUBCUT ×2 (10:19→19:52)
--- NOTE | 2023-02-13 10:55 | PC.CHAP ---
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 visit [] Patient/Family/Request visit [] Outpatient visit [] Follow-up visit [] Physician referral [] Code/Alert [x] Routine visit [] Staff referral [] Actively dying [] Patient sleeping [] Family support [] [] Out of room [] Palliative care [] [x] Receiving care in room [] Pre-surgical visit [] Trauma [] Long length of stay [] ICU visit [] Other: Relational/Emotional Strength [x] Patient feels connected with others/family/visitors/staff [] Distress [] Loneliness/isolation [] Abandonment Spirituality of Patient [x] Person of Jana [x] Attends Zoroastrianism of their Jana [x] Believes in Prayer [] Reads Bible or Hindu materials [] There are Spiritual issues to be addressed Transfer Clerk Interventions [x] Prayer [x] Active listening [x] Non-anxious presence [x] Spiritual/emotional support [] Crisis/trauma care [x] Spiritual counseling [] Bereavement support [] Provided bereavement packet [] Provided Bible/devotional materials [] Provided toy/stuffed animal, coloring book to patient or family member [] Provided Communion [] Anointing/[place] [] Salvation [x] Completed spiritual assessment [] Other: Impact on Illness or Injury [] Angry [] Fearful [] Anxious [] Often cries [] Exhaustion [] Unable to work [] Unable to attend sabianist [] Unable to walk/stand [] Unable to read [] Unable to drive [] Unable to eat/drink [] Unable to sleep [] Unable to be with family [] Patient intubated [] Other: Summary Surgery on leslye has a brace will go to rehab and then he well be able to go home Time spent with patient 10 mins
--- NOTE | 2023-02-13 12:39 | PM.PN ---
Subjective Subjective: Pain reasonably well controlled. Weir in place. Tolerating p.o. intake Vitals/I&O/Wt Last Vital Signs Temp 97.4 F L 02/12/23 21:38 Pulse 82 02/13/23 07:59 Resp 16 02/13/23 10:18 BP 113/67 02/13/23 06:12 Pulse Ox 91 02/13/23 07:59 O2 Del Method Room Air 02/13/23 07:59 02/12/23 02/13/23 02/13/23 22:59 06:59 14:59 Intake Total 1202 / 1202 50 / 1252 1480 / 1480 Output Total 25 / Balance 1177 / 1177 50 / 1227 1480 / 1480 Weight last 48 hrs Weight 416 lb Physical Exam Narrative: Some bloody drainage staining dressing. Toes warm and well-perfused. Sensation grossly intact to light touch throughout exposed right foot. Moves toes right foot Urinary Catheter Management: [place]: Cath Placed During This Visit: yes Reason for Continuing Indwelling Catheter: Required Immobilization for Trauma or Surgery or Anesthesia Urinary Catheter Date of Insertion: 02/12/23 Urinary Catheter Time of Insertion: 21:00 Data 02/13/23 03:46 02/13/23 03:46 A&P Assessment and plan (1) Open fracture dislocation of right ankle: Foot appears well perfused and no obvious sensory deficits at this point. Of course my greatest concern at this point would be wound complications with the extensive medial wound with the open fracture. We will treat with IV Ancef for 48 hours prophylactically. The patient already was very limited in his ambulatory status due to pain in both knees and a Charcot foot on the left. I do not think he will really be an ambulatory candidate until we can clear him for some weightbearing on the right leg. This likely will not be for at least 3 months time. I will put an order in for shelter placement. Attestations Medical Necessity Statement*: Needs placement. Coding Level of Care Code Acute Code for [facility] Diagnoses Open fracture dislocation of right ankle S82.891B
[2023-02-13] MEDS: lactulose oral liq 20 gm/30 mL UDC PO (19:53)
--- NOTE | 2023-02-13 21:44 | PC.NURSE ---
Patient did not have IV upon my arrival on shift.
[2023-02-14] VITALS (15 sets, daily range): BP systolic 107–139; BP diastolic 53–74; PULSE 76–99; RESP 16–18; TEMP 36.6–37.2; O2SAT 90–98
[2023-02-14] MEDS: oxyCODONE 5 mg IR Tab/Cap PO ×5 (02:04→21:08)
[2023-02-14 05:03] LABS: Basophils # 0.1 10^3/uL (0.0-0.1); Basophils % 0.7 %; Eosinophils # 0.3 10^3/uL (0.0-0.8); Eosinophils % 3.5 %; Hematocrit 29.8 % (42.0-52.0); Hemoglobin 9.9 g/dL (11.7-16.6); Mean Corpuscular HGB Conc 33.2 g/dL (30.0-36.0); Mean Corpuscular Hemoglobin 34.7 pg (28.0-34.0); Mean Corpuscular Volume 104.6 fl (80-94); Mean Platelet Volume 10.3 fL (7.4-10.4); Monocytes % 12.8 %; Neutrophils # 5.31 10^3/uL (1.8-7.7); Neutrophils % 69.5 %; Nucleated Red Blood Cells % 0 %; Platelet Count 124 10^3/cmm (130-400); Red Blood Count 2.85 10^6/uL (4.1-5.3); Red Cell Distribution Width 13.2 % (12.1-15.1); White Blood Count 7.6 10^3/uL (4.0-10.0)
[2023-02-14 05:24] LABS: Alanine Aminotransferase 7 U/L (0-41); Albumin Level 2.7 g/dL (3.5-5.2); Alkaline Phosphatase 126 U/L (40-130); Anion Gap 12.6 (5-19); Aspartate Amino Transferase 21 U/L (0-40); Blood Urea Nitrogen 21 mg/dL (6-20); Carbon Dioxide 26 mmol/L (22-29); Chloride 93 mmol/L (98-107); Globulin 2.9 g/dL (1.3-4.6); Glomerular Filtration Rate 41.6 mL/min (90-130); Glucose 102 mg/dL (65-115); Osmolality Calculated 267 mOsm/kg (285-295); Potassium 4.6 mmol/L (3.5-5.1); Sodium 127 mmol/L (136-145); Total Protein 5.6 g/dL (6.6-8.7)
[2023-02-14] MEDS: acetaminophen 500 mg Tablet 1000 MG PO (05:48)
[2023-02-14] MEDS: heparin 5,000 unit/mL INJ 1 mL 5000 UNIT SUBCUT ×2 (08:49→21:10)
[2023-02-14] MEDS: sennosides-docusate Tablet 1 TAB PO (08:51)
[2023-02-14] MEDS: lactulose oral liq 20 gm/30 mL UDC PO ×2 (08:52→21:09)
--- NOTE | 2023-02-14 11:31 | PM.PN ---
Subjective Subjective: Patient is agreeable for rehab Family at the bedside Patient is complaining of headache He is denying history of sleep apnea We will give him Tylenol Vitals/I&O/Wt Last Vital Signs Temp 97.9 F 02/14/23 08:40 Pulse 99 02/14/23 08:40 Resp 18 02/14/23 08:40 BP 110/53 02/14/23 08:40 Pulse Ox 96 02/14/23 08:40 O2 Del Method Nasal Cannula 02/14/23 08:40 O2 Flow Rate 2 02/14/23 08:06 02/13/23 02/14/23 02/14/23 22:59 06:59 14:59 Intake Total 530 / 2540 Output Total 800 / 800 650 / 1450 Balance -270 / 1740 -650 / 1090 Weight last 48 hrs Weight 188.694 kg Physical Exam Narrative: Patient laying supine Currently on room air Right leg without vascular compromise External fixator without any acute complications Abdomen soft distended No signs of confusion S1, S2 Pleasant and cooperative Urinary Catheter Management: [place]: Cath Placed During This Visit: yes Reason for Continuing Indwelling Catheter: Required Immobilization for Trauma or Surgery or Anesthesia Urinary Catheter Date of Insertion: 02/12/23 Urinary Catheter Time of Insertion: 21:00 Data 02/14/23 04:39 02/14/23 04:39 A&P Assessment and plan (1) Ankle injury: Qualifiers: Encounter type: initial encounter Laterality: left Qualified Code(s): S99.912A - Unspecified injury of left ankle, initial encounter (2) Ankle fracture, right: Qualifiers: Encounter type: initial encounter Fracture type: open (3) Open fracture dislocation of right ankle: Plan Open right ankle fracture status post intervention External fixator in place We will need SNF placement Patient is agreeable Parents at the bedside Liver cirrhosis history no active signs of encephalopathy or decompensation Continue lactulose twice a day Headache: We will give him CPAP for tonight Tylenol for now Opioids morphine along lactulose for now DVT prophylaxis with heparin Full code will put him on cardiac diet Attestations Medical Necessity Statement*: Awaiting placement Diagnoses Ankle injury S99.912A Encounter type: initial encounter Laterality: left Ankle fracture, right S82.891A Encounter type: initial encounter Fracture type: open Open fracture dislocation of right ankle S82.892G
--- NOTE | 2023-02-14 11:55 | PM.PN ---
Subjective Subjective: Mr. Soto complains of some pain Vitals/I&O/Wt Last Vital Signs Temp 97.9 F 02/14/23 08:40 Pulse 99 02/14/23 08:40 Resp 18 02/14/23 08:40 BP 110/53 02/14/23 08:40 Pulse Ox 96 02/14/23 08:40 O2 Del Method Nasal Cannula 02/14/23 08:40 O2 Flow Rate 2 02/14/23 08:06 02/13/23 02/14/23 02/14/23 22:59 06:59 14:59 Intake Total 530 / 2540 Output Total 800 / 800 650 / 1450 Balance -270 / 1740 -650 / 1090 Weight last 48 hrs Weight 416 lb Physical Exam Narrative: Dressings changed. No evidence of skin necrosis or purulent drainage. Ankle wound and pin sites appear benign. Expected swelling ankle and foot Urinary Catheter Management: [place]: Cath Placed During This Visit: yes Reason for Continuing Indwelling Catheter: Required Immobilization for Trauma or Surgery or Anesthesia Urinary Catheter Date of Insertion: 02/12/23 Urinary Catheter Time of Insertion: 21:00 Data 02/14/23 04:39 02/14/23 04:39 A&P Assessment and plan (1) Open fracture dislocation of right ankle: Ankle appears benign. Progress has been very slow with therapy. Will need placement for some time until weightbearing status improves. I would anticipate at least 3 months until weightbearing on the right foot can be tolerated Attestations Medical Necessity Statement*: Needs residential placement Coding Level of Care Code Acute Code for [facility] Fwd Diagnoses Open fracture dislocation of right ankle S82.891B
[2023-02-14] MEDS: gabapentin 100 mg Capsule PO ×2 (15:47→21:08)
[2023-02-14] MEDS: levETIRAcetam 500 mg Tablet 1000 MG PO (17:21)
--- NOTE | 2023-02-14 23:40 | PC.NURSE ---
O2 SAT O2 sat was in upper 80's with VS check. Was awakened from sleep. Tells me he's been told he needs a sleep study done. Placed on 2l NC while sleeping
[2023-02-15] VITALS (9 sets, daily range): BP systolic 112–133; BP diastolic 62–74; PULSE 74–96; RESP 16–20; TEMP 36.8–37.1; O2SAT 91–95
[2023-02-15 05:34] LABS: Alanine Aminotransferase < 5 U/L (0-41); Albumin Level 2.8 g/dL (3.5-5.2); Alkaline Phosphatase 135 U/L (40-130); Anion Gap 11.6 (5-19); Aspartate Amino Transferase 20 U/L (0-40); Basophils % 0.4 %; Blood Urea Nitrogen 28 mg/dL (6-20); Calcium 8.2 mg/dL (8.5-10.5); Carbon Dioxide 29 mmol/L (22-29); Chloride 93 mmol/L (98-107); Eosinophils # 0.3 10^3/uL (0.0-0.8); Eosinophils % 3.9 %; Globulin 2.7 g/dL (1.3-4.6); Glomerular Filtration Rate 44.6 mL/min (90-130); Glucose 101 mg/dL (65-115); Hematocrit 27.9 % (42.0-52.0); Hemoglobin 9.3 g/dL (11.7-16.6); Lymphocytes # 1.1 10^3/uL (0.8-4.8); Lymphocytes % 15.7 %; Mean Corpuscular HGB Conc 33.3 g/dL (30.0-36.0); Mean Corpuscular Hemoglobin 34.4 pg (28.0-34.0); Mean Corpuscular Volume 103.3 fl (80-94); Mean Platelet Volume 10.3 fL (7.4-10.4); Monocytes % 14.3 %; Neutrophils # 4.71 10^3/uL (1.8-7.7); Nucleated Red Blood Cells % 0 %; Osmolality Calculated 274 mOsm/kg (285-295); Platelet Count 140 10^3/cmm (130-400); Potassium 4.6 mmol/L (3.5-5.1); Red Cell Distribution Width 13.2 % (12.1-15.1); Sodium 129 mmol/L (136-145); Total Bilirubin 1.1 mg/dL (0.15-1.2); Total Protein 5.5 g/dL (6.6-8.7); White Blood Count 7.3 10^3/uL (4.0-10.0)
[2023-02-15] MEDS: spironolactone 25 mg Tablet 100 MG PO (06:23)
[2023-02-15] MEDS: oxyCODONE 5 mg IR Tab/Cap PO ×3 (06:23→17:15)
[2023-02-15] MEDS: dilTIAZem ER (24HR) 120 mg Capsule PO (06:24)
[2023-02-15] MEDS: lactulose oral liq 20 gm/30 mL UDC PO ×2 (09:09→20:40)
[2023-02-15] MEDS: levETIRAcetam 500 mg Tablet 1000 MG PO ×2 (09:09→17:15)
[2023-02-15] MEDS: sennosides-docusate Tablet 1 TAB PO (09:09)
[2023-02-15] MEDS: potassium chloride ER 20 mEq Tablet PO (09:10)
[2023-02-15] MEDS: gabapentin 100 mg Capsule PO ×3 (09:10→20:40)
[2023-02-15] MEDS: FUROsemide 40 mg Tablet 80 MG PO (09:10)
[2023-02-15] MEDS: ferrous sulfate EC 325 mg Tablet PO (09:10)
[2023-02-15] MEDS: thiamine 100 mg Tablet 50 MG PO (09:11)
[2023-02-15] MEDS: heparin 5,000 unit/mL INJ 1 mL 5000 UNIT SUBCUT ×2 (09:11→20:40)
[2023-02-15] MEDS: morphine 4 mg/mL SDV 1 mL 2 MG IVP (09:17)
--- NOTE | 2023-02-15 10:57 | PC.SOCIAL ---
IMM Update pg 2 of IMM updated and reviewed w/ patient. Copy provided and Copy dated, initialed and placed in chart.
--- NOTE | 2023-02-15 11:31 | PC.NURSE ---
Fixator pins to right leg draining small to moderate amount of blood. Area cleaned and reinforced with ABD pads per orders.
--- NOTE | 2023-02-15 14:05 | P.PN_ITS ---
Subjective Subjective: Pain better. Awaiting placement Vitals/I&O/Wt Last Vital Signs Temp 98.4 F 02/15/23 12:06 Pulse 75 02/15/23 12:06 Resp 18 02/15/23 12:06 BP 114/62 02/15/23 12:06 Pulse Ox 94 02/15/23 12:06 O2 Del Method Room Air 02/15/23 12:06 O2 Flow Rate 2 02/15/23 07:36 02/14/23 02/15/23 02/15/23 22:59 06:59 14:59 Intake Total 680 / 1160 500 / 1660 960 / 960 Output Total 700 / 700 1450 / 2150 Balance -20 / 460 -950 / -490 960 / 960 Physical Exam Narrative: Right ankle wound clean with decreasing draingage. No skin necrosis. Moves toes. Toes well perfused. Sensation intact foot and toes. Urinary Catheter Management: [place]: Cath Placed During This Visit: yes Reason for Continuing Indwelling Catheter: Required Immobilization for Trauma or Surgery or Anesthesia Urinary Catheter Date of Insertion: 02/12/23 Urinary Catheter Time of Insertion: 21:00 Data 02/15/23 04:09 02/15/23 04:09 A&P Assessment and plan (1) Open fracture dislocation of right ankle: Ankle wound appears to be stable3. Awaiting snf placement. Attestations Medical Necessity Statement*: Awaiting SNF Coding Level of Care Code Acute Code for [facility] Fwd Diagnoses Open fracture dislocation of right ankle S82.891B
[2023-02-15] MEDS: alum-mag-hydroxide-sime 30 mL UDC PO (20:40)
[2023-02-15] MEDS: famotidine 20 mg/2 mL INJ IVP (21:15)
--- NOTE | 2023-02-15 21:18 | PM.PN ---
Subjective Subjective: Reports pain is adequately controlled. Endorses constipation. Denies fevers, chills, or emesis. Medications: Reviewed: Yes Vitals/I&O/Wt Last Vital Signs Temp 98.2 F 02/15/23 20:06 Pulse 82 02/15/23 20:06 Resp 16 02/15/23 20:06 BP 116/74 02/15/23 20:06 Pulse Ox 91 02/15/23 20:06 O2 Del Method Nasal Cannula 02/15/23 19:46 O2 Flow Rate 2 02/15/23 19:46 02/15/23 02/15/23 02/15/23 06:59 14:59 22:59 Intake Total 500 / 1660 960 / 960 480 / 1440 Output Total 1450 / 2150 1800 / 1800 Balance -950 / -490 960 / 960 -1320 / -360 Physical Exam Narrative: General: Patient is awake and alert. Head: Normocephalic. Atraumatic. EOM intact. Neck: No JVD. Cardiovascular: RRR. No gallops. No murmurs. Lungs: Clear to auscultation, no use of accessory muscles, no crackles or wheezes. Skin: No jaundice. No rashes. Abdomen: Normal bowel sounds, abdomen soft and nontender. Genito Urinary: Genital exam not performed since complaints not related. Rectal: Rectal exam not performed since no symptoms indicated blood loss. Extremities: No cyanosis or clubbing. Exfix on lower extremity. Musculoskeletal: Normal muscle mass. Neurological: No myoclonus. Moves all 4 extremities. Urinary Catheter Management: Weir: Cath Placed During This Visit: yes Reason for Continuing Indwelling Catheter: Acute Urinary Retention or Obstruction Urinary Catheter Date of Insertion: 02/12/23 Urinary Catheter Time of Insertion: 21:00 Data 02/15/23 04:09 02/15/23 04:09 A&P Assessment and plan (1) Ankle injury: Qualifiers: Encounter type: initial encounter Laterality: left Qualified Code(s): S99.912A - Unspecified injury of left ankle, initial encounter (2) Ankle fracture, right: Qualifiers: Encounter type: initial encounter Fracture type: open (3) Open fracture dislocation of right ankle: Plan Open right ankle fracture status post intervention External fixator in place Continue therapy Will need post acute care Analgesics as needed Monitor bowel movements Liver cirrhosis Continue lactulose twice a day Headache CPAP trial Tylenol as needed DVT ppx: Heparin Code: Full Code Attestations Medical Necessity Statement*: Patient requires ongoing hospitalized care Coding Level of Care Code Acute Code for Chg Fwd Diagnoses Ankle injury S99.912A Encounter type: initial encounter Laterality: left Ankle fracture, right S82.891A Encounter type: initial encounter Fracture type: open Open fracture dislocation of right ankle S82.891B
[2023-02-16] VITALS (9 sets, daily range): BP systolic 112–135; BP diastolic 65–76; PULSE 80–90; RESP 14–18; TEMP 36.4–37.2; O2SAT 92–96
[2023-02-16 05:08] LABS: Basophils % 0.4 %; Eosinophils # 0.2 10^3/uL (0.0-0.8); Eosinophils % 3.2 %; Hematocrit 28.9 % (42.0-52.0); Hemoglobin 9.6 g/dL (11.7-16.6); Mean Corpuscular HGB Conc 33.2 g/dL (30.0-36.0); Mean Corpuscular Hemoglobin 34.8 pg (28.0-34.0); Mean Corpuscular Volume 104.7 fl (80-94); Mean Platelet Volume 9.8 fL (7.4-10.4); Monocytes % 14.5 %; Neutrophils # 4.79 10^3/uL (1.8-7.7); Neutrophils % 67.3 %; Nucleated Red Blood Cells % 0 %; Platelet Count 147 10^3/cmm (130-400); Red Blood Count 2.76 10^6/uL (4.1-5.3); Red Cell Distribution Width 13.3 % (12.1-15.1); White Blood Count 7.1 10^3/uL (4.0-10.0)
[2023-02-16] MEDS: spironolactone 25 mg Tablet 100 MG PO (06:03)
[2023-02-16] MEDS: dilTIAZem ER (24HR) 120 mg Capsule PO (06:03)
[2023-02-16 06:08] LABS: Albumin Level 2.9 g/dL (3.5-5.2); Anion Gap 14.2 (5-19); Blood Urea Nitrogen 29 mg/dL (6-20); Calcium 8.4 mg/dL (8.5-10.5); Carbon Dioxide 29 mmol/L (22-29); Chloride 94 mmol/L (98-107); Glomerular Filtration Rate 52.1 mL/min (90-130); Glucose 127 mg/dL (65-115); Magnesium 2.5 mg/dL (1.7-2.3); Phosphorus 3.9 mg/dL (2.5-4.5); Potassium 5.2 mmol/L (3.5-5.1); Sodium 132 mmol/L (136-145)
[2023-02-16] MEDS: gabapentin 100 mg Capsule PO ×3 (09:30→21:17)
[2023-02-16] MEDS: levETIRAcetam 500 mg Tablet 1000 MG PO ×2 (09:30→18:08)
[2023-02-16] MEDS: lactulose oral liq 20 gm/30 mL UDC PO ×3 (09:30→21:18)
[2023-02-16] MEDS: potassium chloride ER 20 mEq Tablet PO (09:30)
[2023-02-16] MEDS: thiamine 100 mg Tablet 50 MG PO (09:30)
[2023-02-16] MEDS: sennosides-docusate Tablet 1 TAB PO (09:30)
[2023-02-16] MEDS: FUROsemide 40 mg Tablet 80 MG PO (09:30)
[2023-02-16] MEDS: ferrous sulfate EC 325 mg Tablet PO (09:30)
[2023-02-16] MEDS: heparin 5,000 unit/mL INJ 1 mL 5000 UNIT SUBCUT ×2 (09:31→21:17)
[2023-02-16] MEDS: famotidine 20 mg/2 mL INJ IVP (09:52)
[2023-02-16] MEDS: oxyCODONE 5 mg IR Tab/Cap PO ×2 (14:54→21:17)
[2023-02-16] MEDS: hyDROXYzine 25 mg Capsule PO (14:55)
--- NOTE | 2023-02-16 17:39 | PM.PN ---
Subjective Subjective: Patient reports diffuse itching. Reports pain is controlled on current medications. Reports no bowel movement but states he does not feel constipated. Mother is bedside and updated on progress. Denies fevers, chills, nausea or emesis. Medications: Reviewed: Yes Vitals/I&O/Wt Last Vital Signs Temp 99 F 02/16/23 15:41 Pulse 82 02/16/23 15:41 Resp 15 02/16/23 15:41 BP 112/76 02/16/23 15:41 Pulse Ox 96 02/16/23 15:41 O2 Del Method Room Air 02/16/23 08:00 O2 Flow Rate 1.5 02/16/23 08:00 02/16/23 02/16/23 02/16/23 06:59 14:59 22:59 Intake Total 720 / 720 260 / 980 Output Total 1900 / 3700 1400 / 1400 Balance -1900 / -2140 -680 / -680 260 / -420 Physical Exam Narrative: General: Patient is awake and alert. Laying in bed. Head: Normocephalic. Atraumatic. EOM intact. Neck: No JVD. Cardiovascular: RRR. No gallops. No murmurs. Lungs: Clear to auscultation, no use of accessory muscles, no crackles or wheezes. Skin: No jaundice. No rashes. Abdomen: Normal bowel sounds, abdomen soft and nontender. Extremities: No cyanosis or clubbing. Ex fix on right lower extremity. Musculoskeletal: Normal muscle mass. Neurological: No myoclonus. Moves all 4 extremities. Urinary Catheter Management: Weir: Cath Placed During This Visit: yes Reason for Continuing Indwelling Catheter: Required Immobilization for Trauma or Surgery or Anesthesia Urinary Catheter Date of Insertion: 02/12/23 Urinary Catheter Time of Insertion: 21:00 Data 02/16/23 04:12 02/16/23 04:12 A&P Assessment and plan (1) Ankle injury: Qualifiers: Encounter type: initial encounter Laterality: left Qualified Code(s): S99.912A - Unspecified injury of left ankle, initial encounter (2) Ankle fracture, right: Qualifiers: Encounter type: initial encounter Fracture type: open (3) Open fracture dislocation of right ankle: Plan Open right ankle fracture status post ex fix -Continue therapy -Will need post acute care, CM working on -Analgesics as needed -Continue gabapentin -Monitor bowel movements Pruritus -Hydroxyzine PRN Liver cirrhosis -Continue lactulose -Continue Xifaxan -Continue Aldactone -Continue Lasix -Continue thiamine Headache -CPAP trial -Tylenol as needed Hypertension -Continue diltizem DVT ppx: Heparin Code: Full Code Attestations Medical Necessity Statement*: Pt requires ongoing hospitalized care as he is not safe for discharge. Coding Level of Care Code Acute Code for Chg Fwd Diagnoses Ankle injury S99.912A Encounter type: initial encounter Laterality: left Ankle fracture, right S82.891A Encounter type: initial encounter Fracture type: open Open fracture dislocation of right ankle S82.891B
[2023-02-16] MEDS: famotidine 20 mg Tablet PO (18:08)
[2023-02-17] VITALS (11 sets, daily range): BP systolic 113–153; BP diastolic 64–79; PULSE 80–102; RESP 16–20; TEMP 36.3–37.3; O2SAT 91–97
[2023-02-17 05:36] LABS: Basophils # 0.1 10^3/uL (0.0-0.1); Basophils % 0.6 %; Eosinophils # 0.3 10^3/uL (0.0-0.8); Eosinophils % 3.6 %; Hematocrit 29.7 % (42.0-52.0); Hemoglobin 9.9 g/dL (11.7-16.6); Lymphocytes # 1.3 10^3/uL (0.8-4.8); Mean Corpuscular HGB Conc 33.3 g/dL (30.0-36.0); Mean Corpuscular Hemoglobin 34.6 pg (28.0-34.0); Mean Corpuscular Volume 103.8 fl (80-94); Mean Platelet Volume 9.8 fL (7.4-10.4); Monocytes # 1.2 10^3/uL (0.2-0.9); Monocytes % 14.4 %; Neutrophils # 5.15 10^3/uL (1.8-7.7); Neutrophils % 64.8 %; Nucleated Red Blood Cells % 0 %; Platelet Count 159 10^3/cmm (130-400); Red Blood Count 2.86 10^6/uL (4.1-5.3); Red Cell Distribution Width 13.5 % (12.1-15.1)
[2023-02-17 05:51] LABS: Albumin Level 2.8 g/dL (3.5-5.2); Anion Gap 11.6 (5-19); Blood Urea Nitrogen 24 mg/dL (6-20); Calcium 8.6 mg/dL (8.5-10.5); Carbon Dioxide 31 mmol/L (22-29); Chloride 96 mmol/L (98-107); Glomerular Filtration Rate 68.8 mL/min (90-130); Glucose 99 mg/dL (65-115); Phosphorus 3.1 mg/dL (2.5-4.5); Potassium 4.6 mmol/L (3.5-5.1); Sodium 134 mmol/L (136-145)
[2023-02-17] MEDS: dilTIAZem ER (24HR) 120 mg Capsule PO (06:44)
[2023-02-17] MEDS: hyDROXYzine 25 mg Capsule PO (06:44)
[2023-02-17] MEDS: spironolactone 25 mg Tablet 100 MG PO (06:44)
[2023-02-17] MEDS: sennosides-docusate Tablet 1 TAB PO (08:19)
[2023-02-17] MEDS: levETIRAcetam 500 mg Tablet 1000 MG PO ×2 (08:19→18:15)
[2023-02-17] MEDS: FUROsemide 40 mg Tablet 80 MG PO (08:19)
[2023-02-17] MEDS: lactulose oral liq 20 gm/30 mL UDC PO ×7 (08:19→23:35)
[2023-02-17] MEDS: gabapentin 100 mg Capsule PO ×3 (08:19→19:43)
[2023-02-17] MEDS: famotidine 20 mg Tablet PO ×2 (08:19→18:15)
[2023-02-17] MEDS: ferrous sulfate EC 325 mg Tablet PO (08:19)
[2023-02-17] MEDS: thiamine 100 mg Tablet 50 MG PO (08:19)
[2023-02-17] MEDS: potassium chloride ER 20 mEq Tablet PO (08:19)
[2023-02-17] MEDS: heparin 5,000 unit/mL INJ 1 mL 5000 UNIT SUBCUT ×2 (09:32→19:43)
--- NOTE | 2023-02-17 10:24 | PC.SOCIAL ---
IMM Updated Updated pt on IMM. No questions voiced. Provided pt a copy. Initialed, dated, & timed copy in chart.
--- NOTE | 2023-02-17 13:25 | P.PN_ITS ---
Subjective Subjective: Patient was seen and examined this morning he was complaining of constipation.Changes has been made to laxative regimen. Medications: Reviewed: Yes Medication Review Details: Generic Name Dose Route Start Last Admin Trade Name Abiodun PRN Reason Stop Dose Admin Diltiazem HCl 120 mg 02/15/23 07:00 02/17/23 06:44 Diltiazem Er (24 hr) 120 Mg Capsule PO 120 mg DAILY@07 DHAVAL Administration Famotidine 20 mg 02/16/23 18:00 02/17/23 08:19 Famotidine 20 Mg Tablet PO 20 mg BID DHAVAL Administration Ferrous Sulfate 325 mg 02/15/23 09:00 02/17/23 08:19 Ferrous Sulfate Ec 325 Mg Tablet PO 325 mg DAILY DHAVAL Administration Furosemide 80 mg 02/15/23 08:00 02/17/23 08:19 Furosemide 40 Mg Tablet PO 80 mg DAILY@0800 DHAVAL Administration Gabapentin 100 mg 02/14/23 15:00 02/17/23 08:19 Gabapentin 100 M g Capsule PO 100 mg TID DHAVAL Administration Heparin Sodium (Po rcine) 5,000 unit 02/13/23 09:30 02/17/23 09:32 Heparin 5,000 Un it/Ml Inj 1 Ml SUBCUT 5,000 unit Q12H DHAVAL Administration Hydroxyzine Pamoat e 25 mg 02/16/23 13:53 02/17/23 06:44 Hydroxyzine 25 M g Capsule PO 25 mg TID PRN Administration ITCHING Lactulose 20 gm 02/13/23 09:00 02/17/23 08:19 Lactulose Oral L iq 20 Gm/30 Ml Udc PO 20 gm Q12H DHAVAL Administration Levetiracetam 1,000 mg 02/14/23 18:00 02/17/23 08:19 Levetiracetam 50 0 Mg Tablet PO 1,000 mg BID DHAVAL Administration Oxycodone HCl 5 - 10 mg 02/12/23 21:38 02/16/23 21:17 Oxycodone 5 Mg I r Tab/Cap PO 10 mg Q4H PRN Administration MODERATE TO SEVER E PAIN Potassium Chloride 20 meq 02/15/23 09:00 02/17/23 08:19 Potassium Chlori de Er 20 Meq Table t PO 20 meq DAILY DHAVAL Administration Rifaximin 550 mg 02/14/23 18:00 02/17/23 08:58 Rifaximin 550 Mg Tablet PO 550 mg BID DHAVAL Administration Protocol Senna/Docusate Sod ium 1 tab 02/13/23 09:00 02/17/23 08:19 Sennosides-Docus ate Tablet PO 1 tab DAILY DHAVAL Administration Spironolactone 100 mg 02/15/23 07:00 02/17/23 06:44 Spironolactone 2 5 Mg Tablet PO 100 mg DAILY@07 DHAVAL Administration Thiamine Mononitra te 50 mg 02/15/23 09:00 02/17/23 08:19 Thiamine 100 Mg Tablet PO 50 mg DAILY DHAVAL Administration Vitals/I&O/Wt Last Vital Signs Temp 99.2 F 02/17/23 08:00 Pulse 102 H 02/17/23 08:00 Resp 19 H 02/17/23 08:00 BP 153/79 02/17/23 08:00 Pulse Ox 94 02/17/23 08:00 O2 Del Method Room Air 02/17/23 08:00 O2 Flow Rate 1.5 02/17/23 08:00 02/16/23 02/17/23 02/17/23 22:59 06:59 14:59 Intake Total 260 / 980 240 / 240 Output Total 2000 / 3400 1800 / 5200 775 / 775 Balance -1740 / -2420 -1800 / -4220 -535 / -535 Physical Exam Const: COMMON NORMALS: patient oriented x3 HENMT: COMMON NORMALS: normocephalic and atraumatic HEAD & SCALP: normocephalic and atraumatic Chest: CHEST: Yes Symmetrical chest wall rise Resp: COMMON NORMALS: clear to auscultation bilaterally EFFORT & I NSPECTION: Yes symmetric chest movement AUSCULTATION: clear to auscultation bilaterally Cardio: COMMON NORMALS: regular rate, regular rhythm, S1 normal heart sound present, S2 normal heart sound present, No gallops present (Cardio), No murmurs present (Cardio), No rub (Cardio) and Peripheral pulses 2+ throughout RATE: regular rate RHYTHM: regular rhythm HEART SOUNDS: S1 normal heart sound present and S2 normal heart sound present PERIPHERAL PULSES: Peripheral pulses 2+ throughout GI: COMMON NORMALS: Normal to inspection, nondistended, normoactive bowel sounds present, Soft to palpation, non-tender, No hepatosplenomegaly present and no masses AUSCULTATION: Yes normoactive bowel sounds PALPATION: Yes Soft to palpation and Yes No hepatosplenomegaly present RECTAL EXAM: Yes deferred Extremity: COMMON NORMALS: no clubbing, cyanosis or edema and no pedal edema Neuro: COMMON NORMALS: patient oriented x3 Urinary Catheter Management: Weir: Cath Placed During This Visit: yes Reason for Continuing Indwelling Catheter: Other Urinary Catheter Date of Insertion: 02/12/23 Urinary Catheter Time of Insertion: 21:00 Data 02/17/23 04:38 02/17/23 04:38 A&P Assessment and plan (1) Ankle injury: Qualifiers: Encounter type: initial encounter Laterality: left Qualified Code(s): S99.912A - Unspecified injury of left ankle, initial encounter (2) Ankle fracture, right: Qualifiers: Encounter type: initial encounter Fracture type: open (3) Open fracture dislocation of right ankle: (4) Constipation: Plan Open right ankle fracture status post intervention External fixator in place We will need SNF placement Patient is agreeable Parents at the bedside Liver cirrhosis history no active signs of encephalopathy or decompensation Continue lactulose twice a day Headache: We will give him CPAP for tonight Tylenol for now Opioids morphine along lactulose for now DVT prophylaxis with heparin Full code will put him on cardiac diet Attestations Medical Necessity Statement*: Currently he is awaiting placement. Coding Level of Care Code Acute Code for Chg Fwd Diagnoses Ankle injury S99.912A Encounter type: initial encounter Laterality: left Ankle fracture, right S82.891A Encounter type: initial encounter Fracture type: open Open fracture dislocation of right ankle S82.891B Constipation K59.00
--- NOTE | 2023-02-17 14:01 | PC.OT ---
Addendum to treatment plan on 02-13-2023 (5144): Add treatment duration to 4 week (5/week, M-F). This is done as the treatment plan can not be edited due to expiration of editing window.
[2023-02-17] MEDS: oxyCODONE 5 mg IR Tab/Cap PO ×3 (14:38→23:35)
--- NOTE | 2023-02-17 15:52 | P.PN_ITS ---
Subjective Subjective: Yosvany planes of ankle pain. Up in chair. Vitals/I&O/Wt Last Vital Signs Temp 98.8 F 02/17/23 12:00 Pulse 88 02/17/23 12:00 Resp 18 02/17/23 14:38 BP 129/64 02/17/23 12:00 Pulse Ox 97 02/17/23 12:00 O2 Del Method Room Air 02/17/23 12:00 O2 Flow Rate 1.5 02/17/23 08:00 02/17/23 02/17/23 02/17/23 06:59 14:59 22:59 Intake Total 600 / 600 Output Total 1800 / 5200 775 / 775 Balance -1800 / -4220 -175 / -175 Physical Exam Narrative: Dressing changes. Increased serous drainage from incision. Pin sites clean. Urinary Catheter Management: Weir: Cath Placed During This Visit: yes Reason for Continuing Indwelling Catheter: Other Urinary Catheter Date of Insertion: 02/12/23 Urinary Catheter Time of Insertion: 21:00 Data 02/17/23 04:38 02/17/23 04:38 A&P Assessment and plan (1) Open fracture dislocation of right ankle: Continue to mobilize bed to chair. With Charcot arthropathy left foot will not be able to ambulate. Patient is Terry lift dependent. Will need usp. Attestations Medical Necessity Statement*: Awaiting usp Coding Level of Care Code Acute Code for [facility] Fwd Diagnoses Open fracture dislocation of right ankle S82.891B
[2023-02-18] VITALS (9 sets, daily range): BP systolic 101–144; BP diastolic 53–74; PULSE 80–91; RESP 16–19; TEMP 36.4–37.3; O2SAT 90–94
[2023-02-18] MEDS: lactulose oral liq 20 gm/30 mL UDC PO ×3 (02:18→05:48)
[2023-02-18] MEDS: oxyCODONE 5 mg IR Tab/Cap PO ×3 (03:40→19:55)
[2023-02-18 04:48] LABS: Basophils # 0.1 10^3/uL (0.0-0.1); Basophils % 0.7 %; Eosinophils # 0.3 10^3/uL (0.0-0.8); Eosinophils % 3.1 %; Hematocrit 31.4 % (42.0-52.0); Hemoglobin 10.4 g/dL (11.7-16.6); Lymphocytes # 1.1 10^3/uL (0.8-4.8); Lymphocytes % 12.5 %; Mean Corpuscular HGB Conc 33.1 g/dL (30.0-36.0); Mean Corpuscular Hemoglobin 34.4 pg (28.0-34.0); Mean Platelet Volume 9.4 fL (7.4-10.4); Monocytes # 1.4 10^3/uL (0.2-0.9); Monocytes % 15.1 %; Nucleated Red Blood Cells % 0 %; Platelet Count 174 10^3/cmm (130-400); Red Blood Count 3.02 10^6/uL (4.1-5.3); Red Cell Distribution Width 13.7 % (12.1-15.1)
[2023-02-18 05:08] LABS: Alanine Aminotransferase 9 U/L (0-41); Albumin Level 2.8 g/dL (3.5-5.2); Alkaline Phosphatase 141 U/L (40-130); Anion Gap 13.4 (5-19); Aspartate Amino Transferase 26 U/L (0-40); Blood Urea Nitrogen 20 mg/dL (6-20); Calcium 8.6 mg/dL (8.5-10.5); Carbon Dioxide 29 mmol/L (22-29); Chloride 93 mmol/L (98-107); Glomerular Filtration Rate 56.7 mL/min (90-130); Glucose 101 mg/dL (65-115); Osmolality Calculated 275 mOsm/kg (285-295); Potassium 4.4 mmol/L (3.5-5.1); Sodium 131 mmol/L (136-145); Total Bilirubin 1.3 mg/dL (0.15-1.2); Total Protein 5.8 g/dL (6.6-8.7)
[2023-02-18] MEDS: spironolactone 25 mg Tablet 100 MG PO (05:48)
[2023-02-18] MEDS: dilTIAZem ER (24HR) 120 mg Capsule PO (05:48)
[2023-02-18] MEDS: levETIRAcetam 500 mg Tablet 1000 MG PO ×2 (08:49→17:56)
[2023-02-18] MEDS: famotidine 20 mg Tablet PO ×2 (08:49→17:56)
[2023-02-18] MEDS: thiamine 100 mg Tablet 50 MG PO (08:50)
[2023-02-18] MEDS: FUROsemide 40 mg Tablet 80 MG PO (08:50)
[2023-02-18] MEDS: ferrous sulfate EC 325 mg Tablet PO (08:50)
[2023-02-18] MEDS: potassium chloride ER 20 mEq Tablet PO (08:50)
[2023-02-18] MEDS: gabapentin 100 mg Capsule PO ×3 (08:50→19:55)
[2023-02-18] MEDS: heparin 5,000 unit/mL INJ 1 mL 5000 UNIT SUBCUT ×2 (11:34→19:55)
[2023-02-18] MEDS: neomycin-poly-bacitracin oint 28 gm 1 APPLIC TOPICAL (13:44)
[2023-02-18] MEDS: hyDROXYzine 25 mg Capsule PO (17:55)
--- NOTE | 2023-02-18 19:16 | PM.PN ---
Subjective Subjective: Patient was seen and examined this morning pain is better controlled no acute events, Medications: Reviewed: Yes Medication Review Details: Generic Name Dose Route Start Last Admin Trade Name Freq PRN Reason Stop Dose Admin Diltiazem HCl 120 mg 02/15/23 07:00 02/18/23 05:48 Diltiazem Er (24 hr) 120 Mg Capsule PO 120 mg DAILY@07 DHAVAL Administration Famotidine 20 mg 02/16/23 18:00 02/18/23 17:56 Famotidine 20 Mg Tablet PO 20 mg BID DHAVAL Administration Ferrous Sulfate 325 mg 02/15/23 09:00 02/18/23 08:50 Ferrous Sulfate Ec 325 Mg Tablet PO 325 mg DAILY DHAVAL Administration Furosemide 80 mg 02/15/23 08:00 02/18/23 08:50 Furosemide 40 Mg Tablet PO 80 mg DAILY@0800 DHAVAL Administration Gabapentin 100 mg 02/14/23 15:00 02/18/23 14:58 Gabapentin 100 M g Capsule PO 100 mg TID DHAVAL Administration Heparin Sodium (Po rcine) 5,000 unit 02/13/23 09:30 02/18/23 11:34 Heparin 5,000 Un it/Ml Inj 1 Ml SUBCUT 5,000 unit Q12H [facility] Administration Hydroxyzine Pamoat e 25 mg 02/16/23 13:53 02/18/23 17:55 Hydroxyzine 25 M g Capsule PO 25 mg TID PRN Administration ITCHING Lactulose 20 gm 02/13/23 09:00 02/18/23 18:56 Lactulose Oral L iq 20 Gm/30 Ml Udc PO Not Given Q12H [facility] Levetiracetam 1,000 mg 02/14/23 18:00 02/18/23 17:56 Levetiracetam 50 0 Mg Tablet PO 1,000 mg BID DHAVAL Administration Neomycin/Polymyxin /Bacitracin 1 applic 02/18/23 13:00 02/18/23 13:44 Ykkmuswh-Okfe-Pn citracin Oint 28 G m TOPICAL 1 applic DAILY DHAVAL Administration Potassium Chloride 20 meq 02/15/23 09:00 02/18/23 08:50 Potassium Chlori de Er 20 Meq Table t PO 20 meq DAILY DHAVAL Administration Rifaximin 550 mg 02/14/23 18:00 02/18/23 17:56 Rifaximin 550 Mg Tablet PO 550 mg BID DHAVAL Administration Protocol Senna/Docusate Sod ium 1 tab 02/13/23 09:00 02/18/23 08:51 Sennosides-Docus ate Tablet PO Not Given DAILY [facility] Spironolactone 100 mg 02/15/23 07:00 02/18/23 05:48 Spironolactone 2 5 Mg Tablet PO 100 mg DAILY@07 DHAVAL Administration Thiamine Mononitra te 50 mg 02/15/23 09:00 02/18/23 08:50 Thiamine 100 Mg Tablet PO 50 mg DAILY DHAVAL Administration Vitals/I&O/Wt Last Vital Signs Temp 99.1 F 02/18/23 16:00 Pulse 80 02/18/23 16:00 Resp 19 H 02/18/23 16:00 BP 110/68 02/18/23 16:00 Pulse Ox 91 02/18/23 16:00 O2 Del Method Room Air 02/18/23 16:00 O2 Flow Rate 1.5 02/18/23 08:00 02/18/23 02/18/23 02/18/23 06:59 14:59 22:59 Intake Total 480 / 480 240 / 720 Output Total 1450 / 4625 1999 Balance -1450 / -3665 480 / 480 -1760 / -1280 Physical Exam Const: COMMON NORMALS: patient oriented x3 HENMT: COMMON NORMALS: normocephalic and atraumatic HEAD & SCALP: normocephalic and atraumatic Chest: CHEST: Yes Symmetrical chest wall rise Resp: COMMON NORMALS: clear to auscultation bilaterally EFFORT & INSPECTION: Yes symmetric chest movement AUSCULTATION: clear to auscultation bilaterally Cardio: COMMON NORMALS: regular rate, regular rhythm, S1 normal heart sound present, S2 normal heart sound present, No gallops present (Cardio), No murmurs present (Cardio), No rub (Cardio) and Peripheral pulses 2+ throughout RATE: regular rate RHYTHM: regular rhythm HEART SOUNDS: S1 normal heart sound present and S2 normal heart sound present PERIPHERAL PULSES: Peripheral pulses 2+ throughout GI: COMMON NORMALS: Normal to inspection, nondistended, normoactive bowel sounds present, Soft to palpation, non-tender, No hepatosplenomegaly present and no masses AUSCULTATION: Yes normoactive bowel sounds PALPATION: Yes Soft to palpation and Yes No hepatosplenomegaly present RECTAL EXAM: Yes deferred Extremity: COMMON NORMALS: no clubbing, cyanosis or edema and no pedal edema Neuro: COMMON NORMALS: patient oriented x3 Urinary Catheter Management: Weir: Cath Placed During This Visit: yes Reason for Continuing Indwelling Catheter: Required Immobilization for Trauma or Surgery or Anesthesia Urinary Catheter Date of Insertion: 02/12/23 Urinary Catheter Time of Insertion: 21:00 Data 02/18/23 04:38 02/18/23 04:38 A&P Assessment and plan (1) Ankle injury: Qualifiers: Encounter type: initial encounter Laterality: left Qualified Code(s): S99.912A - Unspecified injury of left ankle, initial encounter (2) Ankle fracture, right: Qualifiers: Encounter type: initial encounter Fracture type: open (3) Open fracture dislocation of right ankle: (4) Constipation: Plan Open right ankle fracture status post intervention External fixator in place We will need SNF placement Patient is agreeable Parents at the bedside Liver cirrhosis history no active signs of encephalopathy or decompensation Continue lactulose twice a day Headache: We will give him CPAP for tonight Tylenol for now Opioids morphine along lactulose for now DVT prophylaxis with heparin Full code will put him on cardiac diet Attestations Medical Necessity Statement*: Awaiting placement Coding Level of Care Code Acute Code for Chg Fwd Diagnoses Ankle injury S99.912A Encounter type: initial encounter Laterality: left Ankle fracture, right S82.891A Encounter type: initial encounter Fracture type: open Open fracture dislocation of right ankle S82.891B Constipation K59.00
--- NOTE | 2023-02-18 21:48 | PC.NURSE ---
Addendum entered by Maria Elena Zamora RN 02/18/23 22:19: Morphine x1 and Flonase ordered. Original Note: Patient is asking for something for pain. He cannot have another dose of PRN Oxy until midnight. He is also asking for Flonase and states he uses it at home. Dr. Orellana notified.
[2023-02-18] MEDS: fluticasone nasal spray 16gm Btl 2 SPRAY NASAL (22:32)
[2023-02-18] MEDS: morphine 4 mg/mL SDV 1 mL 2 MG IM (22:33)
[2023-02-19] VITALS (13 sets, daily range): BP systolic 122–148; BP diastolic 60–78; PULSE 70–85; RESP 15–18; TEMP 36.4–37.2; O2SAT 92–97
[2023-02-19] MEDS: oxyCODONE 5 mg IR Tab/Cap PO ×5 (00:29→23:20)
[2023-02-19] MEDS: spironolactone 25 mg Tablet 100 MG PO (04:54)
[2023-02-19] MEDS: dilTIAZem ER (24HR) 120 mg Capsule PO (04:54)
[2023-02-19] MEDS: gabapentin 100 mg Capsule PO ×3 (08:25→20:32)
[2023-02-19] MEDS: FUROsemide 40 mg Tablet 80 MG PO (08:25)
[2023-02-19] MEDS: potassium chloride ER 20 mEq Tablet PO (08:26)
[2023-02-19] MEDS: thiamine 100 mg Tablet 50 MG PO (08:26)
[2023-02-19] MEDS: ferrous sulfate EC 325 mg Tablet PO (08:26)
[2023-02-19] MEDS: famotidine 20 mg Tablet PO ×2 (08:26→17:31)
[2023-02-19] MEDS: levETIRAcetam 500 mg Tablet 1000 MG PO ×2 (08:26→17:31)
[2023-02-19] MEDS: lactulose oral liq 20 gm/30 mL UDC PO ×2 (08:26→20:32)
[2023-02-19] MEDS: heparin 5,000 unit/mL INJ 1 mL 5000 UNIT SUBCUT ×2 (08:27→20:32)
[2023-02-19] MEDS: neomycin-poly-bacitracin oint 28 gm 1 APPLIC TOPICAL (08:33)
--- NOTE | 2023-02-19 14:23 | PM.PN ---
Subjective Subjective: Pain better. Awaiting placement. Vitals/I&O/Wt Last Vital Signs Temp 97.8 F 02/19/23 11:47 Pulse 79 02/19/23 11:47 Resp 18 02/19/23 14:08 BP 141/73 02/19/23 11:47 Pulse Ox 96 02/19/23 11:47 O2 Del Method Room Air 02/19/23 11:47 O2 Flow Rate 1.5 02/18/23 08:00 02/18/23 02/19/23 02/19/23 22:59 06:59 14:59 Intake Total 240 / 720 300 / 300 Output Total 1999 / 1999 1400 / 3400 3400 / 3400 Balance -1760 / -1280 -1400 / -2680 -3100 / -3100 Physical Exam Narrative: See original drainage from medial wound. Pin sites clean. Quite a bit of a swelling from mid leg distal. Moves toes. Sensation intact light touch. Urinary Catheter Management: Weir: Cath Placed During This Visit: yes Reason for Continuing Indwelling Catheter: Required Immobilization for Trauma or Surgery or Anesthesia Urinary Catheter Date of Insertion: 02/12/23 Urinary Catheter Time of Insertion: 21:00 Data 02/18/23 04:38 02/18/23 04:38 A&P Assessment and plan (1) Open fracture dislocation of right ankle: Bandages appear benign and drainage decreasing. Okay for discharge to residential when approved by insurance. Will consider definitive stabilization ankle once wounds are completely benign. This will be at least 3 weeks away. We will follow-up with patient in 2 weeks. Attestations Medical Necessity Statement*: Awaiting insurance approval for residential. Coding Level of Care Code Acute Code for [facility] Fwd Diagnoses Open fracture dislocation of right ankle S82.891B
--- NOTE | 2023-02-19 15:41 | PC.SOCIAL ---
IMM Update pg 2 of IMM updated and reviewed w/ patient. Copy provided and Copy in chart dated, and initialed.
--- NOTE | 2023-02-19 19:59 | PM.PN ---
Subjective Subjective: He states that he still feels he cannot mobilize very well. While staying in the chair his legs swelled up. Swelling now is decreasing with elevating leg in bed. This morning sat up at the edge of the bed with assistance requested to be laid back down after about 10 minutes. He is concerned he is not ready to go and feels he might appeal his discharge. Vitals/I&O/Wt Last Vital Signs Temp 98.9 F 02/19/23 19:57 Pulse 70 02/19/23 19:57 Resp 16 02/19/23 19:57 BP 138/75 02/19/23 19:57 Pulse Ox 93 02/19/23 19:57 O2 Del Method Room Air 02/19/23 15:09 O2 Flow Rate 1.5 02/18/23 08:00 02/19/23 02/19/23 02/19/23 06:59 14:59 22:59 Intake Total 300 / 300 1920 / 2220 Output Total 1400 / 3400 3400 / 3400 450 / 3850 Balance -1400 / -2680 -3100 / -3100 1470 / -1630 Physical Exam Const: COMMON NORMALS: patient oriented x3 and alert GENERAL APPEARANCE: cooperative NUTRITIONAL APPEARANCE: obese morbidly obese ORIENTATION/CONSCIOUSNESS: Yes awake HENMT: COMMON NORMALS: oropharynx normal Neck/C-Spine: COMMON NORMALS: no JVD Resp: COMMON NORMALS: normal respiratory effort and clear to auscultation bilaterally AUSCULTATION: clear to auscultation bilaterally Cardio: COMMON NORMALS: no JVD, regular rhythm, S1 normal heart sound present, S2 normal heart sound present and No murmurs present (Cardio) RHYTHM: regular rhythm HEART SOUNDS: S1 normal heart sound present and S2 normal heart sound present GI: COMMON NORMALS: Normal to inspection, nondistended, normoactive bowel sounds present, Soft to palpation and non-tender PALPATION: Yes Soft to palpation Extremity: COMMON NORMALS: no joint enlargement and no pedal edema NARRATIVE EXTREMITY EXAM: 2+ edema RLE OTHER: Right ankle in external fixator Neuro: COMMON NORMALS: patient oriented x3 and moves all extremities SENSORIUM/ORIENTATION: Yes alert Skin: COMMON NORMALS: no rashes or lesions noted GENERAL SKIN EXAM: no rashes or lesions noted Urinary Catheter Management: Weir: Cath Placed During This Visit: yes Reason for Continuing Indwelling Catheter: Required Immobilization for Trauma or Surgery or Anesthesia Urinary Catheter Date of Insertion: 02/12/23 Urinary Catheter Time of Insertion: 21:00 Data 02/18/23 04:38 02/18/23 04:38 A&P Assessment and plan (1) Ankle injury: Qualifiers: Encounter type: initial encounter Laterality: left Qualified Code(s): S99.912A - Unspecified injury of left ankle, initial encounter (2) Ankle fracture, right: Qualifiers: Encounter type: initial encounter Fracture type: open (3) Open fracture dislocation of right ankle: (4) Constipation: Plan Open right ankle fracture status post intervention Discussed with case management, continue arrangements for SNF. He feels he would like to stay here longer to get sober stronger before he goes, however, discussed with him that would be the purpose of rehabilitation. Discussed risks of prolonged hospitalization including hospital-acquired infections. He states will consider, although may still consider appealing his discharge. We are currently awaiting authorization for SNF for rehabilitation. External fixator in place Orthopedic documentation reviewed, noted okay for discharge. Definitive stabilization to be considered once wounds completely benign. At least 3 weeks away. He is to follow-up in 2 weeks. Liver cirrhosis: Continue lactulose, rifaximin. Spironolactone. Monitor for decompensation. Currently doing well. CHF: Currently without decompensation. COPD: Currently without decompensation Hypothyroidism: Resume levothyroxine Headache: Resolved. Tylenol as needed. Opioids morphine along lactulose for now DVT prophylaxis with heparin Full code will put him on cardiac diet Attestations Medical Necessity Statement*: Continue hospitalization pending prior authorization for continued rehabilitation at SNF, following right ankle fracture and stabilization, nonweightbearing on either foot, and gentleman with morbid obesity and multiple comorbidities including liver cirrhosis, CHF, COPD, and other. Diagnoses Ankle injury S99.912A Encounter type: initial encounter Laterality: left Ankle fracture, right S82.891A Encounter type: initial encounter Fracture type: open Open fracture dislocation of right ankle S82.891B Constipation K59.00
[2023-02-20] VITALS (10 sets, daily range): BP systolic 116–138; BP diastolic 66–81; PULSE 67–81; RESP 16–19; TEMP 36.4–37.2; O2SAT 92–98
[2023-02-20] MEDS: oxyCODONE 5 mg IR Tab/Cap PO ×2 (05:20→20:53)
[2023-02-20] MEDS: levothyroxine 50 mcg Tablet PO (05:21)
[2023-02-20] MEDS: spironolactone 25 mg Tablet 100 MG PO (06:14)
[2023-02-20] MEDS: dilTIAZem ER (24HR) 120 mg Capsule PO (06:14)
[2023-02-20] MEDS: levETIRAcetam 500 mg Tablet 1000 MG PO (10:03)
[2023-02-20] MEDS: sennosides-docusate Tablet 1 TAB PO (10:03)
[2023-02-20] MEDS: potassium chloride ER 20 mEq Tablet PO (10:03)
[2023-02-20] MEDS: gabapentin 100 mg Capsule PO ×3 (10:03→20:54)
[2023-02-20] MEDS: ferrous sulfate EC 325 mg Tablet PO (10:03)
[2023-02-20] MEDS: FUROsemide 40 mg Tablet 80 MG PO (10:04)
[2023-02-20] MEDS: thiamine 100 mg Tablet 50 MG PO (10:04)
[2023-02-20] MEDS: lactulose oral liq 20 gm/30 mL UDC PO ×2 (10:04→20:54)
[2023-02-20] MEDS: famotidine 20 mg Tablet PO (10:04)
[2023-02-20] MEDS: heparin 5,000 unit/mL INJ 1 mL 5000 UNIT SUBCUT ×2 (10:05→20:54)
--- NOTE | 2023-02-20 14:26 | PC.OT ---
Patient stated that he is visiting with his family( dad and mother) and requested not to do therapy today. He stated that he will be going to a [facility] this afternoon. nurse stated that the patient will be d/c to [facility] today . ot treatment was not provided per patient request.
--- NOTE | 2023-02-20 14:33 | PC.OT ---
patient requested to hold OT services. patient has his parents visiting him at this time and also he will be going to the [facility] this afternoon. OT services help per patient request.
[2023-02-20 15:00] LABS: SARS Covid-2 Antigen negative (Negative)
[2023-02-20] MEDS: hyDROXYzine 25 mg Capsule PO (16:30)
--- NOTE | 2023-02-20 16:54 | PM.DCS ---
Discharge Providers Date of Admission: 02/12/23 18:44 Date of Discharge: February 20, 2023 Attending Provider at Admission: Abdiel Cardona MD Attending Provider at Discharge: Max Goodson Primary Care Provider: Yosvany Segovia MD Diagnoses at Discharge Discharge Diagnosis (1) Ankle injury: Status: Acute Qualifiers: Encounter type: initial encounter Laterality: left Qualified Code(s): S99.912A - Unspecified injury of left ankle, initial encounter (2) Ankle fracture, right: Status: Acute Qualifiers: Encounter type: initial encounter Fracture type: open (3) Open fracture dislocation of right ankle: Status: Acute (4) Constipation: Status: Acute Reason for Visit Reason for Visit: open tib fx Brief History: Yosvany Soto is a 57 year old male HFpEF, liver cirrhosis and end-stage liver disease, not found to be a candidate for liver transplantation, hepatorenal syndrome, seizures, morbid obesity, BMI 56.4, COPD, atrial fibrillation/flutter, chronic kidney disease, peripheral vascular disease, active smoker, hypoalbuminemia, chronic hyponatremia, CAD, Charcot's arthropathy, esophageal varices fell in his yard when he was getting out of his truck which he is attributing to his left knee buckling losing balance.? Is not experience any chest pain, shortness of breath, syncope.? He has been compliant with his medications.? No recent episode of confusion. Hospital Course Hospital Course He was assessed by orthopedics and underwent irrigation debridement grade 2 right open ankle fracture dislocation with placement of external fixator. Has done well postoperatively without signs of hepatic encephalopathy, compensated CHF, COPD, otherwise cleared for discharge by orthopedics, will need definitive stabilization, to be considered once wounds completely benign, expected at least 3 weeks away. Needs to follow-up in 2 weeks. Continue wound care. Continue mobilize bed to chair. Terry lift dependent. Nonweightbearing on the right, with Charcot foot on the left will not be able to ambulate. Continues on prophylactic Lovenox additional 21 days due to risk of DVT. Weir catheter was going to be removed, but he has morbid obesity and states cannot use a urinal, as he is currently bedbound, Weir for now his cath. Depending on ability to assist and with improvement of mobility consider removal of catheter. Physical Exam Const: COMMON NORMALS: patient oriented x3 and alert GENERAL APPEARANCE: cooperative NUTRITIONAL APPEARANCE: obese morbidly obese ORIENTATION/CONSCIOUSNESS: Yes awake HENMT: COMMON NORMALS: oropharynx normal Neck/C-Spine: COMMON NORMALS: no JVD Resp: COMMON NORMALS: normal respiratory effort and clear to auscultation bilaterally AUSCULTATION: clear to auscultation bilaterally Cardio: COMMON NORMALS: no JVD, regular rhythm, S1 normal heart sound present, S2 normal heart sound present and No murmurs present (Cardio) RHYTHM: regular rhythm HEART SOUNDS: S1 normal heart sound present and S2 normal heart sound present GI: COMMON NORMALS: Normal to inspection, nondistended, normoactive bowel sounds present, Soft to palpation and non-tender PALPATION: Yes Soft to palpation Extremity: COMMON NORMALS: no joint enlargement and no pedal edema NARRATIVE EXTREMITY EXAM: 2+ edema RLE OTHER: Right ankle in external fixator Neuro: COMMON NORMALS: patient oriented x3 and moves all extremities SENSORIUM/ORIENTATION: Yes alert Skin: COMMON NORMALS: no rashes or lesions noted GENERAL SKIN EXAM: no rashes or lesions noted Urinary Catheter Management: Weir: Cath Placed During This Visit: yes Reason for Continuing Indwelling Catheter: Required Immobilization for Trauma or Surgery or Anesthesia Urinary Catheter Date of Insertion: 02/12/23 Urinary Catheter Time of Insertion: 21:00 Discharge Data Studies Completed and Pending Completed Studies During Hospitalization Category Date Time Status XR ankle RT 2V [id number] Routine Exams 02/12/23 Completed XR ankle RT min 3V* [id number] Stat Exams 02/12/23 16:34 Completed XR chest 1V portable [id number] Stat Exams 02/12/23 16:38 Completed Radiology Impressions Ankle X-Ray 02/12/23 16:34 IMPRESSION: 1. Distal fibular metaphyseal vertically oriented fracture with mild displacement. 2. Medial displacement of the tibia relative the talus by at least 16 mm. 3. Posterior malleolar vertically oriented displaced fracture with articular involvement at the tibiotalar joint along with anterior displacement of the distal tibia relative the talus by at least 18 mm. 4. Suspected inferior malleolar tip displaced avulsion fracture. 5. Scattered vascular calcifications. 6. Soft tissue swelling about the ankle. Chest X-Ray 02/12/23 16:38 IMPRESSION: 1. Possible left posterior 8th rib nondisplaced fracture. 2. Cardiomegaly Laboratory Results WBC 9.0 10^3/uL (4.0-10.0) 02/18/23 04:38 RBC 3.02 10^6/uL (4.1-5.3) L 02/18/23 04:38 Hgb 10.4 g/dL (11.7-16.6) L 02/18/23 04:38 Hct 31.4 % (42.0-52.0) L 02/18/23 04:38 MCV 104.0 fl (80-94) H 02/18/23 04:38 MCH 34.4 pg (28.0-34.0) H 02/18/23 04:38 MCHC 33.1 g/dL (30.0-36.0) 02/18/23 04:38 RDW 13.7 % (12.1-15.1) 02/18/23 04:38 Plt Count 174 10^3/cmm (130-400) 02/18/23 04:38 MPV 9.4 fL (7.4-10.4) 02/18/23 04:38 Neut % (Auto) 68.0 % 02/18/23 04:38 Lymph % (Auto) 12.5 % 02/18/23 04:38 Sharkey % (Auto) 15.1 % 02/18/23 04:38 Eos % (Auto) 3.1 % 02/18/23 04:38 Baso % (Auto) 0.7 % 02/18/23 04:38 Neut # (Auto) 6.10 10^3/uL (1.8-7.7) 02/18/23 04:38 Lymph # (Auto) 1.1 10^3/uL (0.8-4.8) 02/18/23 04:38 Sharkey # (Auto) 1.4 10^3/uL (0.2-0.9) H 02/18/23 04:38 Eos # (Auto) 0.3 10^3/uL (0.0-0.8) 02/18/23 04:38 Baso # (Auto) 0.1 10^3/uL (0.0-0.1) 02/18/23 04:38 Nucleated RBC % (auto) 0 % 02/18/23 04:38 Nucleated RBCs # 0.0 /100WBC 02/18/23 04:38 PT 15.20 SECONDS (12.1-14.9) H 02/12/23 16:48 INR 1.16 (0.8-1.2) 02/12/23 16:48 Sodium 131 mmol/L (136-145) L 02/18/23 04:38 Potassium 4.4 mmol/L (3.5-5.1) 02/18/23 04:38 Chloride 93 mmol/L (98-107) L 02/18/23 04:38 Carbon Dioxide 29 mmol/L (22-29) 02/18/23 04:38 Anion Gap 13.4 (5-19) 02/18/23 04:38 BUN 20 mg/dL (6-20) 02/18/23 04:38 Creatinine 1.3 mg/dL (0.7-1.2) H 02/18/23 04:38 GFR Calculation 56.7 mL/min (90-130) L 02/18/23 04:38 Glucose 101 mg/dL (65-115) 02/18/23 04:38 Calculated Osmolality 275 mOsm/kg (285-295) L 02/18/23 04:38 Calcium 8.6 mg/dL (8.5-10.5) 02/18/23 04:38 Phosphorus 3.1 mg/dL (2.5-4.5) 02/17/23 04:38 Magnesium 2.5 mg/dL (1.7-2.3) H 02/16/23 04:12 Total Bilirubin 1.3 mg/dL (0.15-1.2) H 02/18/23 04:38 AST 26 U/L (0-40) 02/18/23 04:38 ALT 9 U/L (0-41) 02/18/23 04:38 Alkaline Phosphatase 141 U/L (40-130) H 02/18/23 04:38 Total Protein 5.8 g/dL (6.6-8.7) L 02/18/23 04:38 Albumin 2.8 g/dL (3.5-5.2) L 02/18/23 04:38 Globulin 3.0 g/dL (1.3-4.6) 02/18/23 04:38 SARS-CoV-2 Ag (Rapid) negative (Negative) 02/20/23 14:35 Blood Type O Positive 02/12/23 17:23 Rho(D) Type Positive 02/12/23 17:23 Antibody Screen Negative 02/12/23 17:23 Vitals Last Vital Signs Temp 98.4 F 02/20/23 11:20 Pulse 74 02/20/23 11:20 Resp 18 02/20/23 11:20 BP 116/70 02/20/23 11:20 Pulse Ox 93 02/20/23 11:20 O2 Del Method Room Air 02/20/23 11:20 O2 Flow Rate 1.5 02/20/23 08:00 Discharge Plan Discharge Patient Disposition: Xfer SNF Condition: Stable Prescriptions: New Lovenox 30 mg/0.3 mL syringe 30 mg SUBCUT Q24H 21 Days Qty: 6.3 0RF Continued vitamin B complex [Vitamins B Complex] Tablet 1 tab PO DAILY diltiazem HCl [Cartia XT] 120 mg capsule,extended release 24hr 120 mg PO DAILY@07 levothyroxine 50 mcg tablet 50 mcg PO QAM ([facility] [place] Diabetic Shoe of RT foot See Rx Instructions .Route .MEDSUPPLY Qty: 1 0RF Rx Instructions: As directed thiamine HCl (vitamin B1) 50 mg tablet 50 mg PO DAILY (DME) [place] Boot to left See Rx Instructions .Route .MEDSUPPLY Qty: 1 0RF Rx Instructions: As directed by SABI&O ([facility] [place]) Repairs and Adjustments to brace/boot See Rx Instructions .Route .MEDSUPPLY Qty: 1 0RF Rx Instructions: As directed by [facility] folic acid 1 mg tablet 1 mg PO DAILY@07 fluticasone propionate [Flonase Allergy Relief] 50 mcg/actuation spray,suspension 2 spray intranasal DAILY albuterol sulfate 90 mcg/actuation HFA aerosol inhaler 1 puff INHALATION Q4H PRN (Reason: shortness of breath/wheezing) PreserVision AREDS [phone] Capsule 1 cap PO DAILY@07 cetirizine [Zyrtec] 10 mg Tablet 10 mg PO DAILY@07 midodrine 5 mg tablet 5 mg PO TID pantoprazole 40 mg tablet,delayed release (DR/EC) 40 mg PO DAILY potassium chloride 20 mEq Tablet Extended Release 20 meq PO BID@, Hold Instructions: Resume on 12/30/21. gabapentin 100 mg Capsule 100 mg PO TID levetiracetam 500 mg tablet 1,000 mg PO BID ferrous sulfate [iron] 325 mg (65 mg iron) Tablet 325 mg PO DAILY furosemide 40 mg tablet 80 mg PO BID lactulose 20 gram/30 mL Solution See Rx Instructions .ROUTE .COMPLEX Rx Instructions: 30ml po three to four times a week naloxone 4 mg/actuation [place],Non-Aerosol 4 mg INTRANASAL Q3M PRN (Reason: overdose) Rx Instructions: spray 1 dose into ONE nostril; alternate nostrils w each dose until help arrives tramadol 50 mg Tablet 100 mg PO QAM Qty: 12 0RF acetaminophen [Tylenol] 325 mg Tablet 325 - 650 mg PO Q4H PRN (Reason: Pain) spironolactone 50 mg tablet 50 mg PO DAILY@07 alfuzosin 10 mg tablet extended release 24 hr 10 mg PO DAILY@07 Rx Instructions: administer after the same meal each day Xifaxan 550 mg tablet 550 mg PO BID Qty: 60 3RF Discontinued ibuprofen [Advil Liqui-Gel] 200 mg Capsule 400 mg PO Q6H PRN (Reason: Pain) Discharge Orders: Discharge Order (Routine); Ordered 02/20/23 Ordered By: Max Goodson Referrals: Ted Cuellar MD [Physician] - 03/05/23 1:30 pm Yosvany Segovia MD [Primary Care Provider] - 1 week Discharge Diet: Cardiac Discharge Activity: Limit activity as instructed and As per PT/OT instructions Patient Instructions: Opioid Safety Assessment: Strict nonweightbearing right ankle Clean pin sites daily with hydrogen peroxide and cover with Neosporin Replace clean dressing over medial ankle wound daily until drainage subsides. Continue lactulose, target 2-3 soft bowel movements per day to avoid hepatic encephalopathy. Continue follow-up regarding chronic conditions including congestive heart failure, COPD. Weir catheter was going to be removed, but he has morbid obesity and states cannot use a urinal, as he is currently bedbound, Weir for now his cath. Depending on ability to assist and with improvement of mobility consider removal of catheter. Discharge Attestations Time Spent in Discharge Care*: greater than 30 min Status at Discharge: Cognitive status at discharge: cognitively intact, Behavioral status at discharge: cooperative, Quality Metrics Clinical Quality Measures [ No reported AMI, CVA or VTE this stay] Coding Level of Care Code 85878 Total time (in minutes) for Discharge: 40 Diagnoses Ankle injury S99.912A Encounter type: initial encounter Laterality: left Ankle fracture, right S82.891A Encounter type: initial encounter Fracture type: open Open fracture dislocation of right ankle S82.891B Constipation K59.00
--- NOTE | 2023-02-20 19:04 | PC.NURSE ---
Called marcela to inquire about ride for patient to go to [facility], the patient accounting representative stated that they had called [facility] and Catarina stated they could not take the patient due to short staffing and stated that the facility was [place] far out of their [place] to send a truck there right now he suggested to Marcela to call [facility].
[2023-02-21 03:42] VITALS: BP 126/70; PULSE 74; RESP 18; O2SAT 96
[2023-02-21 05:13] VITALS: RESP 17
[2023-02-21] MEDS: levothyroxine 50 mcg Tablet PO (05:13)
[2023-02-21] MEDS: oxyCODONE 5 mg IR Tab/Cap PO (05:13)
[2023-02-21] MEDS: spironolactone 25 mg Tablet 100 MG PO (06:10)
[2023-02-21] MEDS: dilTIAZem ER (24HR) 120 mg Capsule PO (06:11)
[2023-02-21 08:00] VITALS: BP 114/66; PULSE 82; RESP 18; TEMP 36.8; O2SAT 94
--- NOTE | 2023-02-21 08:47 | PC.SOCIAL ---
IMM Updated Updated pt on IMM. No questions voiced. Provided pt a copy. Initialed, dated, & timed copy in chart.
[2023-02-21 09:05] VITALS: BP 114/66; PULSE 82; RESP 18; TEMP 36.8; O2SAT 94
== END 2023-02-21 09:06 | disposition skilled nursing facility (03) | DRG 464 ==
LOC: ER 17:22 → MEDSURG 18:45
PROVIDERS: Internal Medicine; Orthopaedic Surgery; Admitting Provider Internal Medicine; Emergency Provider Emergency Medicine; PCP Family Medicine; Visit Provider Internal Medicine
PROC: 0JBQ0ZZ Excision of Right Foot Subcutaneous Tissue and Fascia, Open Approach (ICD-10-PCS; principal; 2023-02-12 18:45)
PROC: 0JBQ0ZZ Excision of Right Foot Subcutaneous Tissue and Fascia, Open Approach (ICD-10-PCS; 2023-02-12 18:45)
DX: S82.891B Other fracture of right lower leg, initial encounter for open fracture type I or II (principal); E87.1 Hypo-osmolality and hyponatremia; Z68.43 Body mass index [BMI] 50.0-59.9, adult; I13.0 Hypertensive heart and chronic kidney disease with heart failure and stage 1 through stage 4 chronic kidney disease, or unspecified chronic kidney disease; I50.22 Chronic systolic (congestive) heart failure; I85.10 Secondary esophageal varices without bleeding; K76.6 Portal hypertension; W18.39XA Other fall on same level, initial encounter; K59.00 Constipation, unspecified; K70.30 Alcoholic cirrhosis of liver without ascites; F10.10 Alcohol abuse, uncomplicated; E66.01 Morbid (severe) obesity due to excess calories; J44.9 Chronic obstructive pulmonary disease, unspecified; I48.91 Unspecified atrial fibrillation; N18.9 Chronic kidney disease, unspecified; I73.9 Peripheral vascular disease, unspecified; F17.200 Nicotine dependence, unspecified, uncomplicated; I25.10 Atherosclerotic heart disease of native coronary artery without angina pectoris; M14.672 Charcot's joint, left ankle and foot; Z79.51 Long term (current) use of inhaled steroids; E03.9 Hypothyroidism, unspecified; G62.9 Polyneuropathy, unspecified; N40.1 Benign prostatic hyperplasia with lower urinary tract symptoms; Z79.891 Long term (current) use of opiate analgesic
CPT/HCPCS: 36415; 51702; 71045; 73600; 73610; 73630; 76000; 80048; 80053; 80069; 83735; 84100; 85025; 85610; 86850; 86900; 87426; 93005; 94660; 96361; 96372; 96374; 96375; 97110; 97161; 97165; 97530; 97535; 99285; C1713; J0690; J1580; J1644; J1885; J2270; J2360; J2704; J3010; J3490; J7030

== ENCOUNTER → 2023-03-04 15:57 | Outpatient (BNVA) | payer MEDICARE, MEDICAID, SELFPAY | PROVIDERS: PCP Family Medicine; Visit Provider Radiology Diagnostic Radiology | DX: S82.891B Other fracture of right lower leg, initial encounter for open fracture type I or II (principal); X58.XXXA Exposure to other specified factors, initial encounter; Y79.2 Prosthetic and other implants, materials and accessory orthopedic devices associated with adverse incidents; T84.89XA Other specified complication of internal orthopedic prosthetic devices, implants and grafts, initial encounter; T84.7XXA Infection and inflammatory reaction due to other internal orthopedic prosthetic devices, implants and grafts, initial encounter | CPT/HCPCS: 73600; 99024 ==

== ENCOUNTER → 2023-03-06 15:25 | Outpatient (BNVA) | payer MEDICARE, MEDICAID, SELFPAY | PROVIDERS: PCP Family Medicine; Visit Provider Podiatrist Foot & Ankle Surgery | DX: T84.7XXA Infection and inflammatory reaction due to other internal orthopedic prosthetic devices, implants and grafts, initial encounter (principal); T84.89XA Other specified complication of internal orthopedic prosthetic devices, implants and grafts, initial encounter; S82.891B Other fracture of right lower leg, initial encounter for open fracture type I or II; X58.XXXA Exposure to other specified factors, initial encounter; Y79.2 Prosthetic and other implants, materials and accessory orthopedic devices associated with adverse incidents | CPT/HCPCS: 36415; 80053; 85025; 85651; 99214 ==

== ENCOUNTER → 2023-03-21 12:57 | Outpatient (BNVA) | payer MEDICARE, MEDICAID, SELFPAY | PROVIDERS: PCP Family Medicine; Visit Provider Podiatrist Foot & Ankle Surgery | DX: T84.7XXA Infection and inflammatory reaction due to other internal orthopedic prosthetic devices, implants and grafts, initial encounter (principal); T84.89XA Other specified complication of internal orthopedic prosthetic devices, implants and grafts, initial encounter; S82.891B Other fracture of right lower leg, initial encounter for open fracture type I or II; Y79.2 Prosthetic and other implants, materials and accessory orthopedic devices associated with adverse incidents; X58.XXXA Exposure to other specified factors, initial encounter | CPT/HCPCS: 36415; 73610; 80053; 85025; 85651; 86140; 99024; 99213 ==

== ENCOUNTER → 2023-03-28 14:19 | Outpatient (BNVA) | payer MEDICARE, MEDICAID, SELFPAY | PROVIDERS: PCP Family Medicine; Visit Provider Podiatrist Foot & Ankle Surgery | DX: S82.891B Other fracture of right lower leg, initial encounter for open fracture type I or II (principal); S82.891A Other fracture of right lower leg, initial encounter for closed fracture; L97.512 Non-pressure chronic ulcer of other part of right foot with fat layer exposed; X58.XXXA Exposure to other specified factors, initial encounter | CPT/HCPCS: 36415; 73610; 80053; 85025; 85651; 86140; 99214 ==

== ENCOUNTER → 2023-04-03 14:01 | Outpatient (BNVA) | payer MEDICARE, MEDICAID, SELFPAY | PROVIDERS: PCP Family Medicine; Visit Provider Podiatrist Foot & Ankle Surgery | DX: S82.8 Other fractures of lower leg (principal); S82.851 Displaced trimalleolar fracture of right lower leg; X58.XXXD Exposure to other specified factors, subsequent encounter | CPT/HCPCS: 73610; 99214 ==

== ENCOUNTER 2023-04-07 10:05 | Day surgery (SDC) | payer MEDICARE, MEDICAID, SELFPAY ==
[2023-04-04 08:44] VITALS: BMI 54.2
[2023-04-07] VITALS (8 sets, daily range): BP systolic 101–136; BP diastolic 71–85; PULSE 72–88; RESP 16–18; TEMP 36.1–36.6; O2SAT 96–99
--- NOTE | 2023-04-07 11:02 | ANES.PREANE2 ---
Pre-Anesthetic Assessment Height/Weight: Height 1.83 m Weight 181.437 kg Temp Pulse Resp BP Pulse Ox O2 Del Method 97.0 F L 83 18 129/85 97 Room Air 04/07/23 10:39 04/07/23 10:39 04/07/23 10:39 04/07/23 10:39 04/07/23 10:39 04/07/23 10:39 Preop Diagnosis: Open fracture, right ankle Operation Date: 04/07/23 12:00 Proposed Procedures p ?Incision down to bone right ankle 73878, S82.891B,L97.319(Right) - Amaury Carrera DPM Familial anesthetic complications: None Was Beta Rosana taken within 24 hours: N/A Was Clonidine taken within 24 hours: N/A Last intake: Intake Last Liquid Date 04/06/23 Last Liquid Time 18:00 Last Solid Date 04/06/23 Last Solid Time 17:00 Social No alcohol and No tobacco Exam alert, oriented x 3, clear to auscultation bilaterally and regular rate & rhythm Airway Mallampati: Class III Dentition: chipped Pulmonary None reported CV/HEM Atrial Fibrillation, Congestive Heart Failure and Hypertension Hepatic ESLD w/ cirrhosis Anesthetic Plan ASA status: 4 Anesthesia: MAC and Regional (specify below) Risk of > 500 ml blood loss (7ml/kg in children): No Medications/Allergies Home Medications Medication Instructions Recorded Confirmed Last Taken Type vitamin B complex (Vitamins B 1 tab PO DAILY 01/04/20 04/04/23 04/04/23 History Complex tablet) folic acid 1 mg tablet 1 mg PO DAILY@08/23/20 04/04/23 04/04/23 History fluticasone propionate 50 2 spray intranasal DAILY 09/08/20 04/04/23 04/04/23 History mcg/actuation nasal spray,suspension (Flonase Allergy Relief) albuterol sulfate 90 mcg/actuation 1 puff inhalation Q4H PRN 12/11/20 04/04/23 04/03/23 History aerosol inhaler shortness of breath/wheezing vitamins A,C,W-oply-onhmnx 4,296 1 cap PO DAILY@02/11/21 04/04/23 04/04/23 History mcg-226 mg-90 mg capsule (PreserVision AREDS) diltiazem HCl 120 mg 120 mg PO DAILY@04/24/21 04/04/23 04/04/23 History capsule,extended release 24 hr (Cartia XT) cetirizine 10 mg tablet (Zyrtec) 10 mg PO DAILY@05/24/21 04/04/23 04/04/23 History levothyroxine 50 mcg tablet 50 mcg PO QAM 08/15/21 04/04/23 04/04/23 History midodrine 5 mg tablet 5 mg PO TID 09/01/21 04/04/23 04/04/23 History pantoprazole 40 mg tablet,delayed 40 mg PO DAILY 09/01/21 04/04/23 04/04/23 History release potassium chloride 20 mEq 20 meq PO BID@09/01/21 04/04/23 04/04/23 History tablet,extended release gabapentin 100 mg capsule 100 mg PO TID 10/20/21 04/04/23 04/04/23 History thiamine HCl (vitamin B1) 50 mg 50 mg PO DAILY 11/29/21 04/04/23 04/04/23 History tablet ferrous sulfate 325 mg (65 mg 325 mg PO DAILY 12/24/21 04/04/23 04/04/23 History iron) tablet (iron) levetiracetam 500 mg tablet 1,000 mg PO BID 12/24/21 04/04/23 04/04/23 History Diabetic Shoe of RT foot #1 ea 01/29/22 04/04/23 Unknown Rx Repairs and Adjustments to #1 ea 02/07/22 04/04/23 Unknown Rx brace/boot [place] Boot to left #1 ea 03/22/22 04/04/23 Unknown Rx acetaminophen 325 mg tablet 325 - 650 mg PO Q4H PRN Pain 11/04/22 04/04/23 Unknown History (Tylenol) alfuzosin 10 mg tablet,extended 10 mg PO DAILY@11/04/22 04/04/23 04/04/23 History release 24 hr spironolactone 50 mg tablet 50 mg PO DAILY@11/04/22 04/04/23 04/04/23 History rifaximin 550 mg tablet (Xifaxan) 550 mg PO BID #60 tabs 11/08/22 04/04/23 04/04/23 Rx furosemide 40 mg tablet 80 mg PO BID 02/13/23 04/04/23 04/04/23 History lactulose 20 gram/30 mL oral See Rx Instructions .Route .COMPLEX 02/13/23 04/04/23 04/04/23 History solution naloxone 4 mg/actuation nasal spray 4 mg intranasal Q3M PRN overdose 02/13/23 04/04/23 Unknown History tramadol 50 mg tablet 100 mg PO QAM #12 tabs 02/20/23 04/04/23 04/04/23 Rx XL Cam Boot to the right #1 ea 03/21/23 04/04/23 Unknown Rx Allergies Allergy/AdvReac Type Severity Reaction Status Date / Time Penicillins Allergy Severe ALGY-Difficulty Verified 04/07/23 10:34 Breathing Sulfa (Sulfonamide Allergy Severe ALGY-Swell Verified 04/07/23 10:34 Antibiotics) Lip/Tongue/Throat [facility] Anesthesia Medical History Acute hepatic encephalopathy Alcoholic cirrhosis of liver with ascites Anasarca Anemia Ataxia Atrial fibrillation and flutter BMI 50.0-59.9, adult BPH loc w urin obs/LUTS C. difficile diarrhea Charcot's arthropathy left foot Charcot's joint of left foot CHF (congestive heart failure) Echocardiogram done in 2019 shows an EF of 40 to 45% with hypokinetic septum, anteroseptum and inferior wall, biatrial enlargement Chronic hyponatremia varies with volume status Chronic kidney disease Contraindication to deep vein thrombosis (DVT) prophylaxis COPD (chronic obstructive pulmonary disease) Encephalopathy, hepatic End-stage liver disease not a candidate for transplant or tips at last evaluation Erectile dysfunction Esophageal varices Fracture of fourth metatarsal bone of left foot Fracture of second metatarsal bone of left foot Fracture of third metatarsal bone of left foot Hepatorenal syndrome History of abdominal paracentesis History of peritonitis Hx of esophageal varices Hypertension Hypothyroidism Morbid obesity Neuropathy Non-pressure chronic ulcer of other part of left foot limited to breakdown of skin Occult blood in stools Peritoneal dialysis catheter in situ Removed in 05/2021 due to recurrent bacterial peritonitis Peyronie disease Physical deconditioning Pleural effusion associated with hepatic disorder Pneumonia Portal hypertension PVD (peripheral vascular disease) PVD (peripheral vascular disease) Seizure Splenomegaly Stereotyped movements Upper gastrointestinal hemorrhage due to gastritis EGD with pyloric ulcer in 05/2021 Urinary tract infection Surgical History H/O colonoscopy H/O esophagogastroduodenoscopy History of tonsillectomy Hx of umbilical hernia repair Hx of vasectomy Status post surgery (07/05/20) peritoneal catheter for ascites Family History Grandfather CAD (coronary artery disease) Grandmother CAD (coronary artery disease) Cancer Father Cancer Denies family history of Anesthesia complication Bleeding disorder Social History Substance/Drug Use: never Housing: [facility] Marital status: Current occupational status: disabled Do you think of yourself as: Straight/Heterosexual Current gender identity: Male Data Anesthesia Cardiac Studies: Echocardiogram 10/22/22 Echocardiogram Ultrasound 05/31/20
[2023-04-07 11:21] LABS: Erythrocyte Sedimentation Rate 38 mm/hr (0-10)
--- NOTE | 2023-04-07 11:24 | ANES.PROC ---
Anesthesia Procedures Procedure/Date: 04/07/23 Nerve Block ^: Nerve Block 1: Main Anesthesia: other Time Out Performed: Yes Consent: from patient, from other, risks and benefits reviewed and patient agrees to proceed Nerve block location: popliteal (R) Anesthesia monitors applied: pulse oximetry, EKG, BP cuff and oxygen Nerve block position: supine Anesthetic Used: ropivicaine 0.5% (30 ml) and with decadron (4 mg) Ultrasound used to: recognize landmarks Nerve Stimulator Used?: No Interscalene/Femoral BLK: 4 stimuplex 21 g needle used for position and inplane approach, visualize local anesthetic spread and no vascular puncture identified Injection: neg aspiration of heme Patient Tolerated Procedure: well Complications: none
[2023-04-07 11:26] LABS: Alanine Aminotransferase 15 U/L (0-41); Albumin Level 3.4 g/dL (3.5-5.2); Alkaline Phosphatase 116 U/L (40-130); Anion Gap 11.5 (5-19); Aspartate Amino Transferase 23 U/L (0-40); Blood Urea Nitrogen 20 mg/dL (6-20); C Reactive Protein 9.1 mg/L (0.0-4.9); Calcium 9.1 mg/dL (8.5-10.5); Carbon Dioxide 32 mmol/L (22-29); Chloride 93 mmol/L (98-107); Globulin 3.6 g/dL (1.3-4.6); Glomerular Filtration Rate 47.9 mL/min (90-130); Glucose 106 mg/dL (65-115); Osmolality Calculated 279 mOsm/kg (285-295); Potassium 3.5 mmol/L (3.5-5.1); Sodium 133 mmol/L (136-145); Total Bilirubin 1.2 mg/dL (0.15-1.2)
[2023-04-07] MEDS: sodium chloride 0.9% 1,000 ML 30 ML IV (11:26)
--- NOTE | 2023-04-07 12:11 | W.PM.OPSUD ---
Surgery/Procedure H&P Update DATE OF PROCEDURE: April 07, 2023 DATE H&P PERFORMED: 04/03/23 CHANGES TO PREVIOUS DOCUMENTATION: None PREOP DIAGNOSIS: Open fracture, right ankle PLANNED PROCEDURE: Operation Date: 04/07/23 12:00 Proposed Procedures p ?Incision down to bone right ankle 15679, S82.891B,L97.319(Right) - Amaury Carrera DPM
--- NOTE | 2023-04-07 12:12 | PM.OP ---
Operative Report Date of procedure: April 07, 2023 Pre-op diagnosis: Preop Diagnosis Open fracture, right ankle Post-op diagnosis: Open fracture right ankle Post-op findings: None Procedure done: Incision down to bone cortex right talus and calcaneus. CPT code 99457 Implants: 4-0 nylon Specimens removed/disposition: Bone right talus and right calcaneus sent to microbiology as separate specimens for Gram stain, culture and sensitivity. Pathology: None Surgeon: Amaury Carrera D.P.M. Rn House Supervisor: Sherif Estimated blood loss: 5 See intraoperative documentation. IV fluids: 0 Urine output: 0 Complications: None Brief History: Elevated sed rate could be due to underlying comorbidity unrelated to his right ankle fracture.? Unfortunately continues to trend upward.? Patient feels that he is in limbo being staged out for an ankle fusion, I continue expressed my concern that proceeding with a ankle fusion which would require implantation of hardware in the presence of a potential infection would result in failure and potential limb threatening infection.? Next back step will be bone biopsy and bone culture to rule out right ankle as the source of elevated ESR and CRP.? Patient is agreeable.? We will schedule outpatient surgery for Bone biopsy of the right calcaneus and the right talus. I reviewed at length with the patient, the risks, potential complications, benefits, alternatives, expectations, and typical outcomes associated with the surgery. The risks and potential complications were explained in detail, including but not limited to infection, wound dehiscence or soft tissue complications, bleeding and hematoma, chronic edema, neuritis or nerve damage producing numbness or chronic pain, CRPS, failure to relieve pain or worsening pain, thick / painful / unsightly scar, limited motion / stiffness, malposition, delayed union, malunion, or nonunion, fracture, reaction to implants, anesthetic complications, venous thromboembolism, and deformity recurrence.? I discussed the notion of no regrets with the patient as it pertains to complications and outcomes. The patient seemed to understand the nature of the proposed care and required convalescence. They asked appropriate questions, answered to their satisfaction. They are aware no guarantees can be made as to a satisfactory outcome and they understand there may be other possible unforeseen complications or outcomes not listed here that will be treated accordingly if they arise. There were no written or implied guarantees given to the patient. They gave informed consent to proceed. ordered right ankle X ray 3 view educated to pt bone culture is needed stop antibiotics to take an out patient surgery to identify causative organisms at present, will be off of antibiotics for nearly 1 week to help reduce risk of antibiotic suppression scheduling surgery date on Friday April 07, 2023 at noon Procedure: Under mild sedation the patient was brought to the operating room and remained on the gurney in supine position. A timeout was performed. Anesthesia was administered by the anesthesia service. Popliteal block was performed per anesthesia preoperatively to the right lower extremity. The right lower extremity was scrubbed, prepped and draped utilizing normal aseptic technique. No Esmarch bandage utilized. Well-padded right ankle tourniquet inflated to 250 mmHg. Attention was directed to the left lateral ankle. Just superior to the sinus tract from previous calcaneal pin from external fixator a trocar was inserted through skin and contact made with the talar body laterally, bone cortex and woven bone was incised and passed from the operative field to be sent to microbiology for Gram stain, culture and sensitivity. This incision was irrigated with saline solution and closed with 4-0 nylon. Just inferior to the sinus tract from the previous calcaneal pin from external fixator a trocar was inserted laterally at the calcaneal body and incised with the cortex and woven bone sent to microbiology for Gram stain, culture and sensitivity. This incision was irrigated and closed with 4-0 nylon. The incision was dressed with Adaptic, sterile 4 x 4's, Kerlix and Josh wrap. Cam boot was applied to the right lower extremity. Tourniquet was then deflated at the right ankle and a prompt hyperemic response was noted to the distal digits of the right foot. Patient tolerated the procedure and anesthesia well and was transferred to the PACU with vital signs stable and vascular status intact. Following a period of postoperative monitoring he will be transferred back to the senior care facility. He will resume oral antibiotics starting tomorrow morning. He is to remain strict nonweightbearing to the right lower extremity and immobilized at all times with a cam boot.
--- NOTE | 2023-04-07 13:21 | ANE.PACU2 ---
Inpatient post-anesthesia follow up: Airway intact: Yes Vital signs: Temperature 97.8 F Pulse Rate 81 Respiratory Rate 16 Blood Pressure 136/78 Pulse Oximetry 98 Oxygen Delivery Me thod Room Air Oxygen Flow Rate 6 Fraction of Inspir ed Oxygen Hydration adequate: Yes Nausea and vomiting: Yes Pain level: 1 Mental status: Baseline
--- NOTE | 2023-04-18 | XR_ITS ---
WS: [id number] XR ankle RT 2V [id number] REASON FOR EXAM: Right ankle orif. or pic FINDINGS: Plate and screw arthrodesis of the tibiotalar joint. Arthrodesis alignment appropriate. Surgical appliances intact and in proper position and alignment.
== END 2023-04-07 14:02 | disposition home or self-care (01) ==
PROVIDERS: PCP Family Medicine; Visit Provider Podiatrist Foot & Ankle Surgery
PROC: (CPT 28005; principal; 2023-04-07 12:00)
DX: S82.91XB Unspecified fracture of right lower leg, initial encounter for open fracture type I or II (principal); X58.XXXA Exposure to other specified factors, initial encounter; I11.0 Hypertensive heart disease with heart failure; I50.9 Heart failure, unspecified; I48.91 Unspecified atrial fibrillation; K72.10 Chronic hepatic failure without coma; K74.60 Unspecified cirrhosis of liver
CPT/HCPCS: 28005; 36415; 80053; 85651; 86140; 87070; 87176; 87205; J2250; J2704; J2795; J3490; J7030

== ENCOUNTER → 2023-04-14 11:04 | Outpatient (BNVA) | payer MEDICARE, MEDICAID, SELFPAY | PROVIDERS: PCP Family Medicine; Visit Provider Podiatrist Foot & Ankle Surgery | DX: S82.851 Displaced trimalleolar fracture of right lower leg (principal); X58.XXXD Exposure to other specified factors, subsequent encounter | CPT/HCPCS: 99214 ==

== ENCOUNTER 2023-04-18 18:15 | Observation (INO) | payer MEDICARE, MEDICAID, SELFPAY ==
[2023-04-17 10:53] VITALS: BMI 50.1
[2023-04-18] VITALS (14 sets, daily range): BP systolic 97–144; BP diastolic 61–83; PULSE 76–100; RESP 14–20; TEMP 36.1–36.7; O2SAT 93–98
--- NOTE | 2023-04-18 | XR_ITS ---
WS: [id number] XR ankle RT 2V [id number] REASON FOR EXAM: Right ankle orif. or pic FINDINGS: Plate and screw arthrodesis of the tibiotalar joint. Arthrodesis alignment appropriate. Surgical appliances intact and in proper position and alignment. IMPRESSION: Right ankle arthrodesis without abnormality.
[2023-04-18] MEDS: sodium chloride 0.9% 1,000 ML 30 ML IV (11:27)
[2023-04-18] MEDS: gabapentin 300 mg Capsule PO (11:56)
[2023-04-18] MEDS: CELEcoxib 200 mg Capsule 400 MG PO (11:57)
--- NOTE | 2023-04-18 12:43 | ANES.PREANE2 ---
Pre-Anesthetic Assessment Height/Weight: Height 1.83 m Weight 167.829 kg Temp Pulse Resp BP Pulse Ox O2 Del Method 97.3 F L 100 20 H 140/82 97 Room Air 04/18/23 10:35 04/18/23 10:35 04/18/23 10:35 04/18/23 10:35 04/18/23 10:35 04/18/23 10:40 Preop Diagnosis: Right ankle fracture Operation Date: 04/18/23 11:50 Proposed Procedures p ?Right ankle fusion 67119,S82.851H(Right) - Amaury Carrera DPM Last intake: Intake Last Liquid Date 04/17/23 Last Liquid Time 19:00 Last Solid Date 04/17/23 Last Solid Time 17:00 Social Alcohol and Tobacco Exam Normal Cardiopulmonary exam Airway Submandibular: within normal limits Cervical ROM: Other (limited) Mallampati: Class II Pulmonary Chronic Obstructive Pulmonary Disease, Exertional Dyspnea and Shortness of Breath CV/HEM Anemia and Hypertension Hepatic Cirrhosis (EtOH) GI Gastroesophageal Reflux Disease Metabolic Diabetes Mellitus, Hyperlipidemia, Morbid Obesity and Thyroid Disease [facility] Osteoarthritis/DJD Anesthetic Plan ASA status: 4 Anesthesia: General (GETA) Medications/Allergies Home Medications Medication Instructions Recorded Confirmed Last Taken Type vitamin B complex (Vitamins B 1 tab PO DAILY 01/04/20 04/17/23 04/17/23 History Complex tablet) folic acid 1 mg tablet 1 mg PO DAILY@08/23/20 04/18/23 04/17/23 History fluticasone propionate 50 2 spray intranasal DAILY 09/08/20 04/18/23 04/15/23 History mcg/actuation nasal spray,suspension (Flonase Allergy Relief) albuterol sulfate 90 mcg/actuation 1 puff inhalation Q4H PRN 12/11/20 04/18/23 10 Days Ago History aerosol inhaler shortness of breath/wheezing ~04/08/23 vitamins A,C,E-vubk-rxsyca 4,296 1 cap PO DAILY@02/11/21 04/18/23 04/17/23 History mcg-226 mg-90 mg capsule (PreserVision AREDS) diltiazem HCl 120 mg 120 mg PO DAILY@04/24/21 04/17/23 04/17/23 History capsule,extended release 24 hr (Cartia XT) cetirizine 10 mg tablet (Zyrtec) 10 mg PO DAILY@05/24/21 04/18/23 04/17/23 History levothyroxine 50 mcg tablet 50 mcg PO QAM 08/15/21 04/17/23 04/17/23 History midodrine 5 mg tablet 5 mg PO TID 09/01/21 04/17/23 04/17/23 History pantoprazole 40 mg tablet,delayed 40 mg PO DAILY 09/01/21 04/18/23 04/17/23 History release potassium chloride 20 mEq 20 meq PO BID@09/01/21 04/17/23 04/17/23 History tablet,extended release gabapentin 100 mg capsule 100 mg PO TID 10/20/21 04/17/23 04/17/23 History thiamine HCl (vitamin B1) 50 mg 50 mg PO DAILY 11/29/21 04/17/23 04/17/23 History tablet ferrous sulfate 325 mg (65 mg 325 mg PO DAILY 12/24/21 04/17/23 04/17/23 History iron) tablet (iron) levetiracetam 500 mg tablet 1,000 mg PO BID 12/24/21 04/17/23 04/17/23 History Diabetic Shoe of RT foot #1 ea 01/29/22 04/14/23 Unknown Rx Repairs and Adjustments to #1 ea 02/07/22 04/14/23 Unknown Rx brace/boot [place] Boot to left #1 ea 03/22/22 04/14/23 Unknown Rx alfuzosin 10 mg tablet,extended 10 mg PO DAILY@11/04/22 04/17/23 04/17/23 History release 24 hr spironolactone 50 mg tablet 50 mg PO DAILY@11/04/22 04/17/23 04/17/23 History rifaximin 550 mg tablet (Xifaxan) 550 mg PO BID #60 tabs 11/08/22 04/17/23 04/17/23 Rx furosemide 40 mg tablet 80 mg PO BID 02/13/23 04/17/23 04/17/23 History lactulose 20 gram/30 mL oral See Rx Instructions .Route .COMPLEX 02/13/23 04/17/23 04/17/23 History solution naloxone 4 mg/actuation nasal spray 4 mg intranasal Q3M PRN overdose 02/13/23 04/14/23 Unknown History tramadol 50 mg tablet 100 mg PO QAM #12 tabs 02/20/23 04/17/23 04/17/23 Rx XL [place] Boot to the right #1 ea 03/21/23 04/14/23 Unknown Rx oxycodone 5 mg tablet 5 mg PO Q4-5H 04/17/23 04/17/23 04/17/23 History Allergies Allergy/AdvReac Type Severity Reaction Status Date / Time Penicillins Allergy Severe ALGY-Difficulty Verified 04/14/23 11:08 Breathing Sulfa (Sulfonamide Allergy Severe ALGY-Swell Verified 04/14/23 11:08 Antibiotics) Lip/Tongue/Throat Current Medications Generic Name Dose Route Start Last Admin Trade Name Freq PRN Reason Stop Dose Admin Sodium Chloride 1,000 mls @ 30 mls/hr 04/18/23 10:15 04/18/23 11:27 Sodium Chloride 0.9% IV 04/19/23 10:14 30 mls/hr .Q24H DHAVAL Administration PFSH Anesthesia Medical History Acute hepatic encephalopathy Alcoholic cirrhosis of liver with ascites Anasarca Anemia Ataxia Atrial fibrillation and flutter BMI 50.0-59.9, adult BPH loc w urin obs/LUTS C. difficile diarrhea Charcot's arthropathy left foot Charcot's joint of left foot CHF (congestive heart failure) Echocardiogram done in 2019 shows an EF of 40 to 45% with hypokinetic septum, anteroseptum and inferior wall, biatrial enlargement Chronic hyponatremia varies with volume status Chronic kidney disease Contraindication to deep vein thrombosis (DVT) prophylaxis COPD (chronic obstructive pulmonary disease) Encephalopathy, hepatic End-stage liver disease not a candidate for transplant or tips at last evaluation Erectile dysfunction Esophageal varices Fracture of fourth metatarsal bone of left foot Fracture of second metatarsal bone of left foot Fracture of third metatarsal bone of left foot Hepatorenal syndrome History of abdominal paracentesis History of peritonitis Hx of esophageal varices Hypertension Hypothyroidism Morbid obesity Neuropathy Non-pressure chronic ulcer of other part of left foot limited to breakdown of skin Occult blood in stools Peritoneal dialysis catheter in situ Removed in 05/2021 due to recurrent bacterial peritonitis Peyronie disease Physical deconditioning Pleural effusion associated with hepatic disorder Pneumonia Portal hypertension PVD (peripheral vascular disease) PVD (peripheral vascular disease) Seizure Splenomegaly Stereotyped movements Upper gastrointestinal hemorrhage due to gastritis EGD with pyloric ulcer in 05/2021 Urinary tract infection Surgical History H/O colonoscopy H/O esophagogastroduodenoscopy History of tonsillectomy Hx of umbilical hernia repair Hx of vasectomy Status post surgery (07/05/20) peritoneal catheter for ascites Family History Grandfather CAD (coronary artery disease) Grandmother CAD (coronary artery disease) Cancer Father Cancer Denies family history of Anesthesia complication Bleeding disorder Social History Substance/Drug Use: never Housing: Prison Marital status: Current occupational status: disabled Do you think of yourself as: Straight/Heterosexual Current gender identity: Male Data Anesthesia Cardiac Studies: Echocardiogram 10/22/22 Echocardiogram Ultrasound 05/31/20
--- NOTE | 2023-04-18 14:32 | W.PM.OPSUD ---
Surgery/Procedure H&P Update DATE OF PROCEDURE: April 18, 2023 DATE H&P PERFORMED: 04/07/23 CHANGES TO PREVIOUS DOCUMENTATION: none PREOP DIAGNOSIS: Right ankle fracture PLANNED PROCEDURE: Operation Date: 04/18/23 11:50 Proposed Procedures p ?Right ankle fusion 91776,S82.851H(Right) - Amaury Carrera DPM
[2023-04-18] MEDS: clindamycin 600 MG/50 ML PREMIX 100 MG IV (14:47)
[2023-04-18] MEDS: BUPivacaine 0.5% INJ 30 mL INJECTION (17:45)
--- NOTE | 2023-04-18 18:09 | PM.OP ---
Operative Report Date of procedure: April 18, 2023 Pre-op diagnosis: Right trimalleolar fracture Post-op diagnosis: Same Post-op findings: None Procedure done: Right ankle fusion CPT code 50741 Implants: [place] contoured anterior talofibular plate, Silver back [place] locking and nonlocking 4.2 millimeter screws [place] 7 mm headed partially-threaded screw V92 5 cc Specimens removed/disposition: None Pathology: None Surgeon: Amaury Carrera D.P.M. Stud Master/Mistress: Eliza Estimated blood loss: 25 See intraoperative documentation IV fluids: None Urine output: See intraoperative documentation Brief History: 58-year-old male presents to clinic for follow-up evaluation of right ankle fracture, he is here to discuss surgical timing of more definitive procedure.? Tentative plans for right ankle fusion.? Patient sustained a open right trimalleolar fracture on 02/12/2023, initial irrigation and repair of laceration was performed by Dr. Cuellar on 02/12/2023, external fixator was also applied on this date with plans for staged procedure once infection is cleared.? Patient was placed into a fdc and was started on antibiotics.? His postoperative course was complicated by a fall out of bed jarring the external fixator and loosening the transaxial pin through the calcaneus necessitating its removal by Dr. Cuellar in clinic.? After consulting with Dr. Cuellar and the patient the surgical management of his right ankle fracture trended towards an ankle fusion as a more definitive option.? Have been trending inflammatory markers, performed bone cultures surgical cultures of the calcaneus and the talus were taken of the right ankle and foot.? Cultures were negative.? Inflammatory markers have trended downward.? Patient wishes to proceed with surgical intervention as awaited risk knowing that he is at risk for further infection, loss of limb and loss of life.? I reviewed at length with the patient, the risks, potential complications, benefits, alternatives, expectations, and typical outcomes associated with the surgery. The risks and potential complications were explained in detail, including but not limited to infection, wound dehiscence or soft tissue complications, bleeding and hematoma, chronic edema, neuritis or nerve damage producing numbness or chronic pain, CRPS, failure to relieve pain or worsening pain, thick / painful / unsightly scar, limited motion / stiffness, malposition, delayed union, malunion, or nonunion, fracture, reaction to implants, anesthetic complications, venous thromboembolism, and deformity recurrence.? I discussed the notion of no regrets with the patient as it pertains to complications and outcomes. The patient seemed to understand the nature of the proposed care and required convalescence. They asked appropriate questions, answered to their satisfaction. They are aware no guarantees can be made as to a satisfactory outcome and they understand there may be other possible unforeseen complications or outcomes not listed here that will be treated accordingly if they arise. There were no written or implied guarantees given to the patient. They gave informed consent to proceed. Procedure: Under mild sedation patient was brought to the operating room, spinal block was performed per anesthesia. Anesthesia was then administered by the anesthesia service. Well-padded pneumatic tourniquet applied to the right high calf. Right lower extremity was scrubbed, prepped and draped utilizing normal aseptic technique. Right foot was exanguinated with an Esmarch bandage and a tourniquet inflated to 250 mmHg. Attention was directed to the right anterior ankle. Gross instability of the right ankle was appreciated with manually manipulated the ankle and foot. A linear longitudinal incision was made at the anterior ankle for anterior approach, skin incision was performed with a #15 blade approximately 1 cm lateral to the anterior tibial crest and just lateral to the border of the tibialis anterior tendon coursing over the ankle joint and distally directly over the talar neck. Dissection was carried down through skin and skin and subcutaneous tissue utilizing sharp and blunt technique. Care was taken to retract and preserve neurovascular and tendinous structures. All bleeders were ligated and cauterized as necessary. Tibialis anterior tendon was retracted medially and neurovascular bundle and extensor hallucis longus tendon was retracted laterally. Capsular incision was performed as well as periosteal incision. Ankle was distracted and denuded of all articular surface both at the talar dome and tibial plafond followed by subchondral drilling. V92 was packed voids and the ankle was reduced near neutral as possible, previous malunion contributed to intraoperative difficulty obtaining neutral of dorsiflexion. Ankle joint neutral dorsiflexion was obtained and the foot was slightly externally rotated. The fusion was then stabilized utilizing a [place] anterior talofibular contoured Silver back plate with a combination of locking and nonlocking 4.2 millimeter screws, 4 in the tibia and 4 in the talus followed by a homerun screw with a [place] 7 mm short thread, care was taken to not cross the subtalar joint. Excellent bony apposition and compression noted at the arthrodesis site. Any loose voids were packed with V92. The incision was irrigated. AP, oblique and lateral views confirmed excellent placement of hardware. No adjacent joints were violated. Ankle joint dorsiflexion to neutral also appreciated. The incision was further irrigated and closed in a layered fashion. Extensor retinaculum, deep fascia and tendon sheath were reapproximated with 2-0 Vicryl. Subcutaneous tissue with 3-0 Vicryl and skin with 3-0 nylon. The incision was dressed with Unna boot, sterile 4 x 4, Kerlix, well-padded short leg cast with ankle and foot held in neutral. Tourniquet was deflated and a prompt hyperemic response was noted to the distal digits of the right foot. Patient tolerated the procedure and anesthesia well and was transferred to the PACU with vital signs stable and vascular status intact. Following a period of postoperative monitoring he will be transferred to [facility]. Consulted Dr. Goodson for admission postoperatively for pain control. After observation patient will be transferred back to [facility] in [facility] where he has been residing during his recovery. Will continue doxycycline. Patient is to be strict nonweightbearing to the right lower extremity and elevate the right foot while resting. Will be following up with Dr. Carrera in podiatry clinic postoperatively, this will be arranged with his nursing facility.
--- NOTE | 2023-04-18 19:07 | PM.HP ---
Providers/Chief Complaint Admitting Physician: Max Goodson Primary Care Provider: Yosvany Segovia MD Chief Complaint: S82.851H History of Present Illness Pleasant 58-year-old gentleman with history of HFpEF, liver cirrhosis, end-stage liver disease, not candidate for liver transplantation, hepatorenal syndrome, seizures, morbid obesity, COPD, atrial fibrillation/flutter, CKD, PVD, smoking, hypoalbuminemia, chronic hyponatremia, CAD, Charcot's arthropathy, esophageal varices, history of fall, open trimalleolar right ankle fracture 02/12 for which he underwent debridement, stabilization with external fixator antibiotics during prior hospitalization discharged on 02/19, with plans for definitive stabilization and 3 weeks, nonweightbearing on right lower extremity, highly dependent, continue mobilization bed to chair, due to Charcot foot on the left unable to ambulate, discharged with prolonged DVT prophylaxis to [facility] in [place], in the interim with additional injury to fixator, loosening and concern for resultant infection of hardware with uptrend of inflammatory markers, treated with wound care and cephalexin, necessitating hardware removal in office by orthopedics. Inflammatory markers noted trending down. Bone cultures of calcaneus and talus performed and were negative. Today he underwent planned right ankle fusion as opposed to ORIF due to high concern for poor healing with bladder, with request by podiatry for admission overnight for observation and optimization of pain control with anticipated return to [facility] tomorrow with continued outpatient follow-up. To be continued on doxycycline. Procedure performed under MAC anesthesia, vital signs stable currently, did have Weir catheter placed which still in place. Minimal blood loss. He is awake and alert, and reports doing well but was hungry and was furnished with a sandwich. He is to be strict nonweightbearing on right lower extremity, elevate right foot while resting. Review of Systems Const: Denies: fever(s) or chills ENMT: Denies: throat pain Card: Denies: chest pain, edema, pre-syncope or dyspnea on exertion Resp: Denies: dyspnea, productive cough, change in phlegm color or hemoptysis GI: Denies: abdominal pain, nausea or vomiting Skin/Breast: Denies: new lesions Neuro: Denies: headache(s), confusion or seizure-like activity Medications/Allergies Home Medications Medication Instructions Recorded Confirmed Last Taken Type vitamin B complex (Vitamins B 1 tab PO DAILY 01/04/20 04/17/23 04/17/23 History Complex tablet) folic acid 1 mg tablet 1 mg PO DAILY@08/23/20 04/18/23 04/17/23 History fluticasone propionate 50 2 spray intranasal DAILY 09/08/20 04/18/23 04/15/23 History mcg/actuation nasal spray,suspension (Flonase Allergy Relief) albuterol sulfate 90 mcg/actuation 1 puff inhalation Q4H PRN 12/11/20 04/18/23 10 Days Ago History aerosol inhaler shortness of breath/wheezing ~04/08/23 vitamins A,C,T-[id number]-[id number] 4,296 1 cap PO DAILY@02/11/21 04/18/23 04/17/23 History mcg-226 mg-90 mg capsule (PreserVision AREDS) diltiazem HCl 120 mg 120 mg PO DAILY@04/24/21 04/17/23 04/17/23 History capsule,extended release 24 hr (Cartia XT) cetirizine 10 mg tablet (Zyrtec) 10 mg PO DAILY@05/24/21 04/18/23 04/17/23 History levothyroxine 50 mcg tablet 50 mcg PO QAM 08/15/21 04/17/23 04/17/23 History midodrine 5 mg tablet 5 mg PO TID 09/01/21 04/17/23 04/17/23 History pantoprazole 40 mg tablet,delayed 40 mg PO DAILY 09/01/21 04/18/23 04/17/23 History release potassium chloride 20 mEq 20 meq PO BID@09/01/21 04/17/23 04/17/23 History tablet,extended release gabapentin 100 mg capsule 100 mg PO TID 10/20/21 04/17/23 04/17/23 History thiamine HCl (vitamin B1) 50 mg 50 mg PO DAILY 11/29/21 04/17/23 04/17/23 History tablet ferrous sulfate 325 mg (65 mg 325 mg PO DAILY 12/24/21 04/17/23 04/17/23 History iron) tablet (iron) levetiracetam 500 mg tablet 1,000 mg PO BID 12/24/21 04/17/23 04/17/23 History Diabetic Shoe of RT foot #1 ea 01/29/22 04/14/23 Unknown Rx Repairs and Adjustments to #1 ea 02/07/22 04/14/23 Unknown Rx brace/boot [place] Boot to left #1 ea 03/22/22 04/14/23 Unknown Rx alfuzosin 10 mg tablet,extended 10 mg PO DAILY@11/04/22 04/17/23 04/17/23 History release 24 hr spironolactone 50 mg tablet 50 mg PO DAILY@11/04/22 04/17/23 04/17/23 History rifaximin 550 mg tablet (Xifaxan) 550 mg PO BID #60 tabs 11/08/22 04/17/23 04/17/23 Rx furosemide 40 mg tablet 80 mg PO BID 02/13/23 04/17/23 04/17/23 History lactulose 20 gram/30 mL oral See Rx Instructions .Route .COMPLEX 02/13/23 04/17/23 04/17/23 History solution naloxone 4 mg/actuation nasal spray 4 mg intranasal Q3M PRN overdose 02/13/23 04/14/23 Unknown History tramadol 50 mg tablet 100 mg PO QAM #12 tabs 02/20/23 04/17/23 04/17/23 Rx XL [place] Boot to the right #1 ea 03/21/23 04/14/23 Unknown Rx oxycodone 5 mg tablet 5 mg PO Q4-5H 04/17/23 04/17/23 04/17/23 History Allergies Allergy/AdvReac Type Severity Reaction Status Date / Time Penicillins Allergy Severe ALGY-Difficulty Verified 04/14/23 11:08 Breathing Sulfa (Sulfonamide Allergy Severe ALGY-Swell Verified 04/14/23 11:08 Antibiotics) Lip/Tongue/Throat PFSH Acute PFSH: Medical History Acute hepatic encephalopathy Alcoholic cirrhosis of liver with ascites Anasarca Anemia Ataxia Atrial fibrillation and flutter BMI 50.0-59.9, adult BPH loc w urin obs/LUTS C. difficile diarrhea Charcot's arthropathy left foot Charcot's joint of left foot CHF (congestive heart failure) Echocardiogram done in 2019 shows an EF of 40 to 45% with hypokinetic septum, anteroseptum and inferior wall, biatrial enlargement Chronic hyponatremia varies with volume status Chronic kidney disease Contraindication to deep vein thrombosis (DVT) prophylaxis COPD (chronic obstructive pulmonary disease) Encephalopathy, hepatic End-stage liver disease not a candidate for transplant or tips at last evaluation Erectile dysfunction Esophageal varices Fracture of fourth metatarsal bone of left foot Fracture of second metatarsal bone of left foot Fracture of third metatarsal bone of left foot Hepatorenal syndrome History of abdominal paracentesis History of peritonitis Hx of esophageal varices Hypertension Hypothyroidism Morbid obesity Neuropathy Non-pressure chronic ulcer of other part of left foot limited to breakdown of skin Occult blood in stools Peritoneal dialysis catheter in situ Removed in 05/2021 due to recurrent bacterial peritonitis Peyronie disease Physical deconditioning Pleural effusion associated with hepatic disorder Pneumonia Portal hypertension PVD (peripheral vascular disease) PVD (peripheral vascular disease) Seizure Splenomegaly Stereotyped movements Upper gastrointestinal hemorrhage due to gastritis EGD with pyloric ulcer in 05/2021 Urinary tract infection Surgical History H/O colonoscopy H/O esophagogastroduodenoscopy History of tonsillectomy Hx of umbilical hernia repair Hx of vasectomy Status post surgery (07/05/20) peritoneal catheter for ascites Family History Grandfather CAD (coronary artery disease) Grandmother CAD (coronary artery disease) Cancer Father Cancer Denies family history of Anesthesia complication Bleeding disorder Social History Substance/Drug Use: never Housing: Long-Term Marital status: Current occupational status: disabled Do you think of yourself as: Straight/Heterosexual Current gender identity: Male Vitals/I&O/Wt Last Vital Signs Temp 97 F L 04/18/23 17:58 Pulse 78 04/18/23 18:26 Resp 16 04/18/23 18:26 BP 105/65 04/18/23 18:26 Pulse Ox 97 04/18/23 18:26 O2 Del Method Room Air 04/18/23 18:43 04/18/23 04/18/23 04/18/23 06:59 14:59 22:59 Intake Total 50 / 50 Output Total 625 / 625 Balance -575 / -575 Weight last 48 hrs Weight 167.829 kg Physical Exam Narrative: Accompanied by family. Const: COMMON NORMALS: patient oriented x3 and alert GENERAL APPEARANCE: cooperative NUTRITIONAL APPEARANCE: obese morbidly obese ORIENTATION/CONSCIOUSNESS: Yes awake HENMT: COMMON NORMALS: oropharynx normal Neck/C-Spine: COMMON NORMALS: no JVD Resp: COMMON NORMALS: normal respiratory effort and clear to auscultation bilaterally AUSCULTATION: clear to auscultation bilaterally Cardio: COMMON NORMALS: no JVD, regular rhythm, S1 normal heart sound present, S2 normal heart sound present and No murmurs present (Cardio) RHYTHM: regular rhythm HEART SOUNDS: S1 normal heart sound present and S2 normal heart sound present GI: COMMON NORMALS: Normal to inspection, nondistended, normoactive bowel sounds present, Soft to palpation and non-tender PALPATION: Yes Soft to palpation OTHER: Large pannus. Extremity: COMMON NORMALS: no joint enlargement OTHER: RLE cast. Right side toes appear perfused, warm to touch. Trace LLE edema. Left Charcot foot. Neuro: COMMON NORMALS: patient oriented x3 and moves all extremities SENSORIUM/ORIENTATION: Yes alert Skin: COMMON NORMALS: no rashes or lesions noted GENERAL SKIN EXAM: no rashes or lesions noted Urinary Catheter Management: Weir: Cath Placed During This Visit: yes Reason for Continuing Indwelling Catheter: Perioperative Use in Selected Surgeries Urinary Catheter Date of Insertion: 04/18/23 Urinary Catheter Time of Insertion: 15:10 A&P Assessment and plan (1) Open right trimalleolar fracture: Status post uncomplicated right ankle fixation, to be continued on doxycycline, so far doing well. Observation in the hospital postoperatively and optimization of pain control. Follow-up blood counts, chemistry. He is to remain strict nonweightbearing right lower extremity, elevate while at rest, nonambulatory due to left Charcot foot. At risk of DVT. To continue on VTE prophylaxis with Lovenox. Tylenol, oxycodone, tramadol for pain currently. Gabapentin. IV Dilaudid for severe breakthrough pain. Monitor mental status. At risk of encephalopathy. Naloxone as needed requested. Weir catheter in place postoperatively. Discussed with podiatry. Nursing staff. Orthopedics note reviewed. Qualifiers: Encounter type: subsequent encounter Open fracture type: open type I or II Fracture healing: with delayed healing Qualified Code(s): S82.851H - Displaced trimalleolar fracture of right lower leg, subsequent encounter for open fracture type I or II with delayed healing Plan Liver cirrhosis with history of encephalopathy: Continue lactulose. Rifaximin. Currently awake and alert, no sign of encephalopathy at the moment. Spironolactone. Atrial fibrillation: Continue diltiazem. Anemia: Continue iron CKD: History of hepatorenal syndrome. Continue midodrine. Hypothyroidism: Continue levothyroxine. Seizures: Continue Keppra. GERD: Continue pantoprazole Obesity: Has been nonweightbearing, needing Terry lift assistance History of C. difficile BPH CHF: Currently not exacerbation Chronic hyponatremia: Recheck chemistry COPD: Currently on exacerbation Other medical problems Attestations Medical Necessity Statement*: Place in observation for monitoring following right ankle fusion and pain control optimization in a gentleman with multiple comorbidities including end-stage liver disease with liver cirrhosis with recurrent hepatic encephalopathy and other as above. Diagnoses Open right trimalleolar fracture S82.851H Encounter type: subsequent encounter Open fracture type: open type I or II Fracture healing: with delayed healing
[2023-04-18] MEDS: doxycycline 100 MG in sodium chloride 0.9% (plus) 100 ML IV (20:24)
[2023-04-18] MEDS: midodrine 5 mg TABLET PO (20:24)
[2023-04-18] MEDS: oxyCODONE 5 mg IR Tab/Cap PO (20:24)
[2023-04-18] MEDS: gabapentin 100 mg Capsule PO (20:24)
[2023-04-19] VITALS (11 sets, daily range): BP systolic 131–154; BP diastolic 75–86; PULSE 72–89; RESP 17–18; TEMP 36.3–37; O2SAT 93–98
[2023-04-19] MEDS: oxyCODONE 5 mg IR Tab/Cap PO ×5 (00:05→14:58)
--- NOTE | 2023-04-19 00:05 | PC.NURSE ---
This nurse administered a small, white, round 5mg oxycodone IR pill to patient and placed the pill directly in the patient's mouth. This nurse placed the patient's straw in the patient's mouth to get a drink to swallow pill down; however, the patient did not have enough water in his pitcher to take a drink. This nurse stepped to the sink in patient's room to refill the patient's water. The pitcher was approximately filled to the 250-300mL water line when the patient stated, Hey! I did not get that pill. It must have came out when you pulled the straw out. This nurse checked in the straw and the cup for the pill and poured out the water to see if the pill went down the straw into the cup. No pill residue was found. This nurse and TIFFANIE Darling as witness in the room immediately started looking in the patient's bed, in and under patient's gown, in and around patient's folds, and all blankets and sheets were shaken out. This nurse and TIFFANIE Darling rolled the patient to each side, removing any excess blankets and checking underneath each layer of turn sheets to see if the pill rolled underneath the patient. When unable to find the pill, this nurse immediately notified GLEN Reynolds Charge of patient's comment. GLEN Reynolds Charge came to room and assisted to roll patient again in search of the pill as well as looking in patient's mouth with no sign of residue. Patient's bed was completely moved from area and the floor was swept. Medication left on MAR as administered due to not being able to locate the pill to waste it after patient stated it came out of his mouth. Dr. Balnd was notified of the event and patient's request for another pain pill as well as a muscle relaxer.
[2023-04-19] MEDS: cyclobenzaprine 10 mg Tablet 5 MG PO ×2 (02:14→12:22)
[2023-04-19 04:21] LABS: Hematocrit 35.1 % (42.0-52.0); Hemoglobin 11.9 g/dL (11.7-16.6); Lymphocytes # 0.3 10^3/uL (0.8-4.8); Lymphocytes % 4.2 %; Mean Corpuscular HGB Conc 33.9 g/dL (30.0-36.0); Mean Corpuscular Hemoglobin 33.6 pg (28.0-34.0); Mean Corpuscular Volume 99.2 fl (80-94); Mean Platelet Volume 10.4 fL (7.4-10.4); Monocytes # 0.6 10^3/uL (0.2-0.9); Monocytes % 7.4 %; Neutrophils # 6.53 10^3/uL (1.8-7.7); Nucleated Red Blood Cells % 0 %; Platelet Count 129 10^3/cmm (130-400); Red Blood Count 3.54 10^6/uL (4.1-5.3); White Blood Count 7.4 10^3/uL (4.0-10.0)
[2023-04-19 04:35] LABS: Alanine Aminotransferase 14 U/L (0-41); Albumin Level 3.3 g/dL (3.5-5.2); Alkaline Phosphatase 98 U/L (40-130); Anion Gap 14.1 (5-19); Aspartate Amino Transferase 23 U/L (0-40); Blood Urea Nitrogen 28 mg/dL (6-20); Carbon Dioxide 28 mmol/L (22-29); Chloride 96 mmol/L (98-107); Globulin 2.7 g/dL (1.3-4.6); Glomerular Filtration Rate 47.9 mL/min (90-130); Glucose 142 mg/dL (65-115); Osmolality Calculated 286 mOsm/kg (285-295); Potassium 4.1 mmol/L (3.5-5.1); Sodium 134 mmol/L (136-145); Total Bilirubin 1.1 mg/dL (0.15-1.2)
[2023-04-19] MEDS: TRAMadol 50 mg Tablet 100 MG PO (06:18)
[2023-04-19] MEDS: spironolactone 25 mg Tablet 50 MG PO (06:18)
[2023-04-19] MEDS: levothyroxine 50 mcg Tablet PO (06:18)
[2023-04-19] MEDS: folic acid 1 mg Tablet PO (06:18)
[2023-04-19] MEDS: dilTIAZem ER (24HR) 120 mg Capsule PO (06:18)
[2023-04-19] MEDS: enoxaparin 30 mg/0.3 mL Syringe SUBCUT (06:19)
[2023-04-19] MEDS: cetirizine 10 mg Tablet PO (06:19)
[2023-04-19] MEDS: alfuzosin 10 mg ER Tablet PO (06:20)
[2023-04-19] MEDS: doxycycline 100 MG in sodium chloride 0.9% (plus) 100 ML IV (08:50)
[2023-04-19] MEDS: fluticasone nasal spray 16gm Btl 2 SPRAY INTRANASAL (08:50)
[2023-04-19] MEDS: gabapentin 100 mg Capsule PO ×2 (08:51→14:58)
[2023-04-19] MEDS: ferrous sulfate EC 325 mg Tablet PO (08:51)
[2023-04-19] MEDS: midodrine 5 mg TABLET PO ×2 (08:51→14:57)
[2023-04-19] MEDS: pantoprazole DR 40 mg Tablet PO (08:52)
[2023-04-19] MEDS: thiamine 100 mg Tablet 50 MG PO (08:52)
[2023-04-19] MEDS: levETIRAcetam 500 mg Tablet 1000 MG PO (08:52)
[2023-04-19] MEDS: FUROsemide 40 mg Tablet 80 MG PO (08:53)
--- NOTE | 2023-04-19 09:18 | PC.PHAR ---
pt is from [facility] [phone] celis fax mar and tar for pt
--- NOTE | 2023-04-19 10:58 | ANE.PACU2 ---
Inpatient post-anesthesia follow up: Vital signs: Temperature 97.4 F Pulse Rate 87 Respiratory Rate 18 Blood Pressure 150/82 Pulse Oximetry 96 Oxygen Delivery Me thod Room Air Oxygen Flow Rate Fraction of Inspir ed Oxygen Hydration adequate: Yes Nausea and vomiting: No Pain level: 1 Mental status: Baseline
[2023-04-19] MEDS: lactulose oral liq 20 gm/30 mL UDC PO (12:23)
--- NOTE | 2023-04-19 13:51 | PC.NURSE ---
Called report to Calista Sampson LPN at [facility].
--- NOTE | 2023-04-19 14:43 | PC.NURSE ---
notified Dr. Goodson about patients merlos. Dr. Goodson stated to remove merlos.
--- NOTE | 2023-04-19 17:28 | P.DS_ITS ---
Discharge Providers Date of Admission: 04/18/23 18:15 Date of Discharge: April 19, 2023 Attending Provider at Admission: Max Goodson Attending Provider at Discharge: Max Goodson Primary Care Provider: Yosvany Segovia MD Diagnoses at Discharge Discharge Diagnosis (1) Open right trimalleolar fracture: Details from hospital stay: Status post right ankle fusion. Cast in place. Status: Acute Qualifiers: Encounter type: subsequent encounter Open fracture type: open type I or II Fracture healing: with delayed healing Qualified Code(s): S82.851H - Displaced trimalleolar fracture of right lower leg, subsequent encounter for open fracture type I or II with delayed healing Other Information Additional DC diagnoses/information: Liver cirrhosis with history of encephalopathy: Continue lactulose.? Rifaximin.? Currently awake and alert, no sign of encephalopathy at the moment.? Spironolactone. Atrial fibrillation: Continue diltiazem. Anemia: Continue iron CKD: History of hepatorenal syndrome.? Continue midodrine. Hypothyroidism: Continue levothyroxine. Seizures: Continue Keppra. GERD: Continue pantoprazole Obesity: Has been nonweightbearing, needing Terry lift assistance History of C. difficile BPH CHF: Currently not exacerbation Chronic hyponatremia: Recheck chemistry COPD: Currently no exacerbation Other medical problems Reason for Visit Reason for Visit: S82.851H Brief History: Pleasant 58-year-old gentleman with history of HFpEF, liver cirrhosis, end-stage liver disease, not candidate for liver transplantation, hepatorenal syndrome, seizures, morbid obesity, COPD, atrial fibrillation/flutter, CKD, PVD, smoking, hypoalbuminemia, chronic hyponatremia, CAD, Charcot's arthropathy, esophageal varices, history of fall, open trimalleolar right ankle fracture 02/12 for which he underwent debridement, stabilization with external fixator antibiotics during prior hospitalization discharged on 02/19, with plans for definitive stabilization and 3 weeks, nonweightbearing on right lower extremity, highly dependent, continue mobilization bed to chair, due to Charcot foot on the left unable to ambulate, discharged with prolonged DVT prophylaxis to jail in [place], in the interim with additional injury to fixator, loosening and concern for resultant infection of hardware with uptrend of inflammatory markers, treated with wound care and cephalexin, necessitating hardware removal in office by orthopedics.? Inflammatory markers noted trending down.? Bone cultures of calcaneus and talus performed and were negative. Today he underwent planned right ankle fusion as opposed to ORIF due to high concern for poor healing with bladder, with request by podiatry for admission overnight for observation and optimization of pain control with anticipated return to jail tomorrow with continued outpatient follow-up.? To be continued on doxycycline.? Procedure performed under MAC anesthesia, vital signs stable, did have Weir catheter in the hospital.? Minimal intraoperative blood loss.? Strict nonweightbearing on right lower extremity, elevate right foot while resting. Hospital Course Hospital Course Did well after hospitalization, overnight with some pain, did require tramadol in addition to oxycodone, doing better in the morning. Discussed with podiatry, case management, and the transition for continued care over at SNF. Does state that recently he has been getting lactulose only 3 times a week and ends up not always having a bowel movement daily, concern regarding constipation. Please increase lactulose to daily currently, target 2 soft stools per day to avoid hepatic encephalopathy. Per discussion with podiatry he is to remain strictly nonweightbearing on right lower extremity. He is already nonweightbearing on left lower extremity as well due to Charcot's foot. Requiring Terry lift. Continue doxycycline per podiatry and he will be reassessed in the office in the next 1-2 weeks. Physical Exam Narrative: Awake, alert, no chest pain or pressure. No difficulty breathing. Overnight bothered by some pain, now doing better. Const: COMMON NORMALS: patient oriented x3 and alert GENERAL APPEARANCE: cooperative NUTRITIONAL APPEARANCE: obese morbidly obese ORIENTATION/CONSCIOUSNESS: Yes awake HENMT: COMMON NORMALS: oropharynx normal Neck/C-Spine: COMMON NORMALS: no JVD Resp: COMMON NORMALS: normal respiratory effort and clear to auscultation bilaterally AUSCULTATION: clear to auscultation bilaterally Cardio: COMMON NORMALS: no JVD, regular rhythm, S1 normal heart sound present, S2 normal heart sound present and No murmurs present (Cardio) RHYTHM: regular rhythm HEART SOUNDS: S1 normal heart sound present and S2 normal heart sound present GI: COMMON NORMALS: Normal to inspection, nondistended, normoactive bowel sounds present, Soft to palpation and non-tender PALPATION: Yes Soft to palpation OTHER: Large pannus. Extremity: COMMON NORMALS: no joint enlargement and no pedal edema OTHER: RLE cast. Right side toes appear perfused, warm to touch. Trace LLE edema. Left Charcot foot. Neuro: COMMON NORMALS: patient oriented x3 and moves all extremities SENSORIUM/ORIENTATION: Yes alert Skin: COMMON NORMALS: no rashes or lesions noted GENERAL SKIN EXAM: no rashes or lesions noted Urinary Catheter Management: Weir: Cath Placed During This Visit: yes, but has since been removed by the nurse Reason for Continuing Indwelling Catheter: Perioperative Use in Selected Surgeries Urinary Catheter Date of Insertion: 04/18/23 Urinary Catheter Time of Insertion: 15:10 Date Urinary Catheter Removed: 04/19/23 Time Urinary Catheter Discontinued: 15:09 Discharge Data Studies Completed and Pending Pending at discharge Category Date Time Status C-arm Mini [id number] Routine Exams 04/18/23 10:07 Ordered Laboratory Results WBC 7.4 10^3/uL (4.0-10.0) 04/19/23 03:47 RBC 3.54 10^6/uL (4.1-5.3) L 04/19/23 03:47 Hgb 11.9 g/dL (11.7-16.6) 04/19/23 03:47 Hct 35.1 % (42.0-52.0) L 04/19/23 03:47 MCV 99.2 fl (80-94) H 04/19/23 03:47 MCH 33.6 pg (28.0-34.0) 04/19/23 03:47 MCHC 33.9 g/dL (30.0-36.0) 04/19/23 03:47 RDW 13.0 % (12.1-15.1) 04/19/23 03:47 Plt Count 129 10^3/cmm (130-400) L 04/19/23 03:47 MPV 10.4 fL (7.4-10.4) 04/19/23 03:47 Neut % (Auto) 88.0 % 04/19/23 03:47 Lymph % (Auto) 4.2 % 04/19/23 03:47 [place] % (Auto) 7.4 % 04/19/23 03:47 Eos % (Auto) 0.0 % 04/19/23 03:47 Baso % (Auto) 0.0 % 04/19/23 03:47 Neut # (Auto) 6.53 10^3/uL (1.8-7.7) 04/19/23 03:47 Lymph # (Auto) 0.3 10^3/uL (0.8-4.8) L 04/19/23 03:47 [place] # (Auto) 0.6 10^3/uL (0.2-0.9) 04/19/23 03:47 Eos # (Auto) 0.0 10^3/uL (0.0-0.8) 04/19/23 03:47 Baso # (Auto) 0.0 10^3/uL (0.0-0.1) 04/19/23 03:47 Nucleated RBC % (auto) 0 % 04/19/23 03:47 Nucleated RBCs # 0.0 /100WBC 04/19/23 03:47 Sodium 134 mmol/L (136-145) L 04/19/23 03:47 Potassium 4.1 mmol/L (3.5-5.1) 04/19/23 03:47 Chloride 96 mmol/L (98-107) L 04/19/23 03:47 Carbon Dioxide 28 mmol/L (22-29) 04/19/23 03:47 Anion Gap 14.1 (5-19) 04/19/23 03:47 BUN 28 mg/dL (6-20) H 04/19/23 03:47 Creatinine 1.5 mg/dL (0.7-1.2) H 04/19/23 03:47 GFR Calculation 47.9 mL/min (90-130) L 04/19/23 03:47 Glucose 142 mg/dL (65-115) H 04/19/23 03:47 Calculated Osmolality 286 mOsm/kg (285-295) 04/19/23 03:47 Calcium 9.0 mg/dL (8.5-10.5) 04/19/23 03:47 Total Bilirubin 1.1 mg/dL (0.15-1.2) 04/19/23 03:47 AST 23 U/L (0-40) 04/19/23 03:47 ALT 14 U/L (0-41) 04/19/23 03:47 Alkaline Phosphatase 98 U/L (40-130) 04/19/23 03:47 Total Protein 6.0 g/dL (6.6-8.7) L 04/19/23 03:47 Albumin 3.3 g/dL (3.5-5.2) L 04/19/23 03:47 Globulin 2.7 g/dL (1.3-4.6) 04/19/23 03:47 Vitals Last Vital Signs Temp 98.3 F 04/19/23 15:45 Pulse 73 04/19/23 15:45 Resp 18 04/19/23 15:45 BP 131/75 04/19/23 15:45 Pulse Ox 95 04/19/23 15:45 O2 Del Method Room Air 04/19/23 15:06 Discharge Plan Discharge Patient Disposition: Home Condition: Stable Prescriptions: New doxycycline hyclate 100 mg capsule 100 mg PO BID 14 Days Qty: 28 0RF Continued vitamin B complex [Vitamins B Complex] Tablet 1 tab PO DAILY@07 diltiazem HCl [Cardizem CD] 120 mg capsule,extended release 24hr 120 mg PO DAILY@07 levothyroxine 50 mcg tablet 50 mcg PO DAILY@06 (DME) Diabetic Shoe of RT foot See Rx Instructions .Route .MEDSUPPLY Qty: 1 0RF Rx Instructions: As directed thiamine HCl (vitamin B1) 50 mg tablet 50 mg PO DAILY@07 ([facility]) Knik Boot to left See Rx Instructions .Route .MEDSUPPLY Qty: 1 0RF Rx Instructions: As directed by [facility] ([facility]) XL Cam Boot to the right See Rx Instructions .Route .MEDSUPPLY Qty: 1 0RF Rx Instructions: As directed ([facility]) Repairs and Adjustments to brace/boot See Rx Instructions .Route .MEDSUPPLY Qty: 1 0RF Rx Instructions: As directed by [employer] folic acid 1 mg tablet 1 mg PO DAILY@07 fluticasone propionate [Flonase Allergy Relief] 50 mcg/actuation spray,suspension 2 spray intranasal DAILY@07 albuterol sulfate 90 mcg/actuation HFA aerosol inhaler 1 puff INHALATION Q4H PRN (Reason: shortness of breath/wheezing) [employer]er[employer]ision AREDS [phone] [id number]-[id number] Capsule 1 cap PO DAILY@07 cetirizine [Zyrtec] 10 mg Tablet 10 mg PO DAILY@07 midodrine 5 mg tablet 5 mg PO TID pantoprazole 40 mg tablet,delayed release (DR/EC) 40 mg PO DAILY@07 potassium chloride 20 mEq Tablet Extended Release 20 meq PO BID@, Hold Instructions: Resume on 12/30/21. gabapentin 100 mg Capsule 100 mg PO TID levetiracetam 500 mg tablet 1,000 mg PO BID ferrous sulfate [iron] 325 mg (65 mg iron) Tablet 325 mg PO DAILY@07 furosemide 40 mg tablet 80 mg PO BID@07,12 naloxone 4 mg/actuation [place],Non-Aerosol 4 mg INTRANASAL Q3M PRN (Reason: overdose) Rx Instructions: spray 1 dose into ONE nostril; alternate nostrils w each dose until help arrives spironolactone 50 mg tablet 50 mg PO DAILY@07 alfuzosin 10 mg tablet extended release 24 hr 10 mg PO DAILY@07 Rx Instructions: administer after the same meal each day Tylenol 325 mg Tablet 325 - 650 mg PO Q4H PRN (Reason: Pain) Milk of Magnesia 400 mg/5 mL Suspension 30 ml PO DAILY PRN (Reason: Constipation) Rx Instructions: IF NO BM FOR 3 DAYS Dulcolax (bisacodyl) 10 mg Suppository 10 mg [place] DAILY PRN (Reason: Constipation) Rx Instructions: FOR NO BM FOR 4 DAYS Fleet Enema 19-7 gram/118 mL Enema 118 ml VA DAILY PRN (Reason: Constipation) Rx Instructions: IF NO BM FOR 5 DAYS oxycodone 5 mg tablet 5 mg PO Q6H PRN (Reason: Pain) Changed lactulose 20 gram/30 mL Solution 30 ml PO DAILY Qty: 1200 0RF Discontinued ibuprofen 200 mg Tablet 400 mg PO Q6H PRN (Reason: Pain) Discharge Orders: Discharge Order (Routine); Ordered 04/19/23 Ordered By: Max Goodson Referrals: Primary, provider [Other] - 7-10 days Amaury Carrera DPM [Physician] - 7-10 days (Please call [phone] on Friday to set up an appointment to see Dr. Carrera. ) Discharge Activity: As per PT/OT instructions Patient Instructions: Doxycycline (By mouth), Opioid Safety Activity Restrictions/Additional Instructions: Nonweightbearing on right lower extremity. Follow-up with podiatry and primary provider after ankle fusion surgery. Continue lactulose daily at this time. Target 2 soft bowel movements per day to prevent hepatic encephalopathy. Avoid constipation. Discharge Attestations Time Spent in Discharge Care*: greater than 30 min Status at Discharge: Cognitive status at discharge: cognitively intact , Behavioral status at discharge: cooperative , Quality Metrics Clinical Quality Measures [ No reported AMI, CVA or VTE this stay] Coding Level of Care Code 46926 Total time (in minutes) for Discharge: 45 Diagnoses Open right trimalleolar fracture S82.851H Encounter type: subsequent encounter Open fracture type: open type I or II Fracture healing: with delayed healing
== END 2023-04-19 15:45 | disposition skilled nursing facility (03) ==
LOC: MEDSURG 18:16
PROVIDERS: Podiatrist Foot & Ankle Surgery; Admitting Provider Internal Medicine; PCP Family Medicine; Visit Provider Internal Medicine
PROC: (CPT 28740; principal; 2023-04-18 11:40)
DX: S82.851A Displaced trimalleolar fracture of right lower leg, initial encounter for closed fracture (principal); I11.0 Hypertensive heart disease with heart failure; I50.30 Unspecified diastolic (congestive) heart failure; K72.10 Chronic hepatic failure without coma; K70.30 Alcoholic cirrhosis of liver without ascites; K76.7 Hepatorenal syndrome; J44.9 Chronic obstructive pulmonary disease, unspecified; I48.91 Unspecified atrial fibrillation; I48.92 Unspecified atrial flutter; N18.9 Chronic kidney disease, unspecified; E88.09 Other disorders of plasma-protein metabolism, not elsewhere classified; E87.1 Hypo-osmolality and hyponatremia; I25.10 Atherosclerotic heart disease of native coronary artery without angina pectoris; D64.9 Anemia, unspecified; G40.909 Epilepsy, unspecified, not intractable, without status epilepticus; E66.01 Morbid (severe) obesity due to excess calories; Z68.43 Body mass index [BMI] 50.0-59.9, adult; Z88.0 Allergy status to penicillin; Z88.2 Allergy status to sulfonamides; W19.XXXA Unspecified fall, initial encounter
CPT/HCPCS: 27870; 36415; 51702; 73600; 76000; 80053; 85025; 96372; C1713 ×2; C1762; G0378; J1100; J1650; J2250; J2704; J3490; J7030

== ENCOUNTER → 2023-04-24 14:32 | Outpatient (BNVA) | payer MEDICAID, SELFPAY | PROVIDERS: PCP Family Medicine; Visit Provider Podiatrist Foot & Ankle Surgery | DX: S82.851 Displaced trimalleolar fracture of right lower leg (principal); S99.912D Unspecified injury of left ankle, subsequent encounter; X58.XXXD Exposure to other specified factors, subsequent encounter | CPT/HCPCS: 99024 ==

== ENCOUNTER → 2023-05-08 10:40 | Outpatient (BNVA) | payer MEDICARE, MEDICAID, SELFPAY | PROVIDERS: PCP Family Medicine; Visit Provider Podiatrist Foot & Ankle Surgery | DX: Z98.890 Other specified postprocedural states (principal); S82.891B Other fracture of right lower leg, initial encounter for open fracture type I or II; S82.891A Other fracture of right lower leg, initial encounter for closed fracture; X58.XXXA Exposure to other specified factors, initial encounter | CPT/HCPCS: 73610 ==

== ENCOUNTER 2023-05-08 14:42 | Outpatient (CLI) | payer MEDICARE, MEDICAID, SELFPAY | END 2023-05-08 14:43 | disposition home or self-care (01) | LOC: SPT 14:43 | PROVIDERS: PCP Family Medicine; Visit Provider Podiatrist Foot & Ankle Surgery | DX: Z46.89 Encounter for fitting and adjustment of other specified devices (principal); S82.851D Displaced trimalleolar fracture of right lower leg, subsequent encounter for closed fracture with routine healing; X58.XXXD Exposure to other specified factors, subsequent encounter | CPT/HCPCS: 97760; 99024; L4361 ==

== ENCOUNTER → 2023-06-19 11:24 | Outpatient (BNVA) | payer MEDICARE, MEDICAID, SELFPAY | PROVIDERS: PCP Family Medicine; Visit Provider Podiatrist Foot & Ankle Surgery | DX: Z98.890 Other specified postprocedural states; S93.04XA Dislocation of right ankle joint, initial encounter; W19.XXXA Unspecified fall, initial encounter; Z98.1 Arthrodesis status | CPT/HCPCS: 73610; 99214 ==

== ENCOUNTER 2023-06-22 15:36 | Emergency (ER) | payer MEDICARE, MEDICAID, SELFPAY ==
[2023-06-22 15:39] VITALS: BP 137/95; PULSE 75; RESP 24; TEMP 36.9; O2SAT 97; BMI 40.2
--- NOTE | 2023-06-22 15:42 | XRR_ITS ---
PROCEDURE INFORMATION: Exam: XR Chest Exam date and time: 06/22/2023 4:36 PM Age: 58 years old Clinical indication: Cough and dyspnea; Additional info: Dyspnea/cough TECHNIQUE: Imaging protocol: Radiologic exam of the chest. Views: 1 view. COMPARISON: CR XR chest 1V portable [id number] 02/12/2023 4:52 PM FINDINGS: Lungs: Unremarkable. No consolidation. Pleural spaces: Unremarkable. No pleural effusion. No pneumothorax. Heart/Mediastinum: Cardiac silhouette is mildly enlarged. Bones/joints: Unremarkable. XR/XR chest 1V portable [id number] IMPRESSION: Mild cardiomegaly otherwise negative chest.
--- NOTE | 2023-06-22 15:44 | ECG_ITS ---
[facility] Test Date: 2023-06-22 Pat Name: Yosvany Soto Department: Room: Gender: Male [employer]ician: : 1965 Requested By: Ghassan Brooks Order Number: [id number] Cade MD: Compa Escamilla M.D. Measurements Intervals [place] Rate: 67 P: 0 UT: 0 QRS: 120 QRSD: 93 T: 58 QT: 406 QTc: 431 Interpretive Statements ATRIAL FIBRILLATION INCOMPLETE RIGHT BUNDLE BRANCH BLOCK [90+ ms QRS DURATION, TERMINAL R IN V1/V2, 40+ ms S IN I/aVL/V4/V5/V6] POSSIBLE RIGHT VENTRICULAR HYPERTROPHY [SOME/ALL OF: PROMINENT R IN V1, LATE TRANSITION, RAD, LUCINDA, SSS] ANTEROSEPTAL MYOCARDIAL INFARCTION , PROBABLY OLD [40+ ms Q WAVE IN V1-V4] Compared to ECG 02/12/2023 17:46:39 Incomplete right bundle-branch block now present Myocardial infarct finding still present Electronically Signed On 06-22-2023 22:51:47 CDT by Compa Escamilla M.D. [id number]
--- NOTE | 2023-06-22 15:56 | CTR_ITS ---
PROCEDURE INFORMATION: Exam: CT Abdomen And Pelvis Without Contrast Exam date and time: 06/22/2023 4:33 PM Age: 58 years old Clinical indication: Abdominal pain; Generalized TECHNIQUE: Imaging protocol: Computed tomography of the abdomen and pelvis without contrast. Radiation optimization: All CT scans at this facility use at least one of these dose optimization techniques: automated exposure control; mA and/or kV adjustment per patient size (includes targeted exams where dose is matched to clinical indication); or iterative reconstruction. REPORTING DATA: Count of CT and Cardiac NM exams in prior 12 months: This patient has received 3 known CTs and 0 known cardiac nuclear medicine studies in the 12 months prior to the current study. COMPARISON: CT abdomen pelvis wo con [id number] 11/04/2022 11:[address] abdomen and pelvis performed August 2021 RADIATION DOSE METRICS: Total DLP (mGy-cm): 1544.13 FINDINGS: Lungs: Minor atelectatic changes at the lung bases. Liver: Liver has a cirrhotic contour unchanged. Gallbladder and bile ducts: Normal. No calcified stones. No ductal dilation. Pancreas: Unremarkable. Main pancreatic duct is not significantly dilated. Unremarkable. Main pancreatic duct is not significantly dilated. Spleen: Spleen is mildly enlarged, unchanged. Adrenal glands: Normal. No mass. Kidneys and ureters: Normal. No hydronephrosis. Stomach and bowel: Moderate degree of stool throughout the large bowel most pronounced within the rectum which is somewhat distended likely reflecting some degree of fecal impaction and constipation. Scattered diverticuli descending and sigmoid colon. No evidence of acute diverticulitis. Appendix: No evidence of acute appendicitis. Intraperitoneal space: Accentuated portosystemic collaterals within the upper abdomen consistent with portal hypertension Vasculature: Scattered atherosclerotic changes of the abdominal aorta and iliac vessels. No aortic aneurysm. Lymph nodes: Unremarkable. No enlarged lymph nodes. Urinary bladder: Unremarkable as visualized. Reproductive: Unremarkable as visualized. Bones/joints: Moderate-advanced degenerative changes involving the mid-lower lumbar spine. No acute bony abnormalities. Soft tissues: There is mild indistinct fat stranding and fascial thickening lateral to the right colon stable from previous exams dating back to August 2021 presumed chronic in nature but of uncertain etiology.. CT/CT abdomen pelvis wo con [id number] IMPRESSION: 1. No acute findings within the abdomen or pelvis. 2. Findings consistent with constipation and some degree of fecal impaction in the rectosigmoid. 3. Colonic diverticulosis. No evidence of acute diverticulitis. 4. Cirrhosis with mild splenomegaly and a portosystemic collaterals consistent with portal hypertension, stable. 5. Chronic pericolonic fat changes lateral to the right colon stable from earlier studies.
[2023-06-22] MEDS: sodium chloride 0.9% 1,000 ML 999 ML IV (16:16)
--- NOTE | 2023-06-22 16:17 | ED_ITS ---
HPI - Abdominal Pain General: Chief Complaint: Abdominal Pain Stated Complaint: ABD PAIN Time Seen by Provider: 06/22/23 15:39 Source: patient Mode of arrival: EMS History of Present Illness: 58-year-old super morbidly obese male who presents to the emergency room with complaints of abdominal pain and cramping that is intermittent. [facility]. He had had a right foot fracture was unable to get up and ambulate. He is got Charcot foot bilaterally. He had surgery on the right foot and was in rehab [facility] jail. He left a few days ago he thought he could manage on his own at home. He has been taking oxycodone for pain. He is having abdominal pain and cramping but no vomiting or diarrhea mostly abdominal discomfort has resolved with the time he arrives here he denies dysuria urgency frequency fever sweats or chills MD elicited complaint: abdominal pain Pertinent past history: constipation Onset (ago): hour(s) Pain Consistency: intermittent and now resolved Location: Diffuse Severity: moderate Quality: cramping Exacerbating factors: nothing Relieving factors: nothing Associated Symptoms: Denies chills, dysuria and fever(s) Review of Systems Const: Denies: fever(s) or chills Card: Denies: chest pain Resp: Denies: dyspnea GI: Denies: abdominal pain : Denies: dysuria, urinary frequency or urinary urgency Musc: Denies: neck pain or back pain Skin/Breast: Denies: rash PFSH ED PFSH: Medical History Acute hepatic encephalopathy Alcoholic cirrhosis of liver with ascites Anasarca Anemia Ataxia Atrial fibrillation and flutter BMI 50.0-59.9, adult BPH loc w urin obs/LUTS C. difficile diarrhea Charcot's arthropathy left foot Charcot's joint of left foot CHF (congestive heart failure) Echocardiogram done in 2019 shows an EF of 40 to 45% with hypokinetic septum, anteroseptum and inferior wall, biatrial enlargement Chronic hyponatremia varies with volume status Chronic kidney disease Contraindication to deep vein thrombosis (DVT) prophylaxis COPD (chronic obstructive pulmonary disease) Encephalopathy, hepatic End-stage liver disease not a candidate for transplant or tips at last evaluation Erectile dysfunction Esophageal varices Fracture of fourth metatarsal bone of left foot Fracture of second metatarsal bone of left foot Fracture of third metatarsal bone of left foot Hepatorenal syndrome History of abdominal paracentesis History of peritonitis Hx of esophageal varices Hypertension Hypothyroidism Morbid obesity Neuropathy Non-pressure chronic ulcer of other part of left foot limited to breakdown of skin Occult blood in stools Peritoneal dialysis catheter in situ Removed in 05/2021 due to recurrent bacterial peritonitis Peyronie disease Physical deconditioning Pleural effusion associated with hepatic disorder Pneumonia Portal hypertension PVD (peripheral vascular disease) PVD (peripheral vascular disease) Seizure Splenomegaly Stereotyped movements Upper gastrointestinal hemorrhage due to gastritis EGD with pyloric ulcer in 05/2021 Urinary tract infection Surgical History H/O colonoscopy H/O esophagogastroduodenoscopy History of tonsillectomy Hx of umbilical hernia repair Hx of vasectomy Status post surgery (07/05/20) peritoneal catheter for ascites Family History Grandfather CAD (coronary artery disease) Grandmother CAD (coronary artery disease) Cancer Father Cancer Denies family history of Anesthesia complication Bleeding disorder Social History Substance/Drug Use: never Housing: Penitentiary Marital status: Current occupational status: disabled Do you think of yourself as: Straight/Heterosexual Current gender identity: Male Physical Exam Const: GENERAL APPEARANCE: cooperative and comfortable OR IENTATION/CONSCIOUSNESS: Yes awake, Yes oriented to person, Yes oriented to place and Yes oriented to time HENMT: COMMON NORMALS: normocephalic, atraumatic and hearing grossly normal bilaterally HEAD & SCALP: normocephalic and atraumatic Resp: COMMON NORMALS: normal respiratory effort, No retractions, No use of accessory muscles and clear to auscultation bilaterally AUSCULTATION: clear to auscultation bilaterally Cardio: COMMON NORMALS: regular rate, regular rhythm and No murmurs present (Cardio) RATE: regular rate RHYTHM: regular rhythm GI: COMMON NORMALS: Soft to palpation and No hepatosplenomegaly present AUSCULTATION: Yes normoactive bowel sounds PALPATION: Yes Soft to palpation, No Tenderness to palpation present (GI), No Guarding due to palpation present (GI) and Yes No hepatosplenomegaly present Extremity: COMMON NORMALS: normal to inspection, capillary refill normal, no clubbing, cyanosis or edema, no calf tenderness and no pedal edema Neuro: SENSORIUM/ORIENTATION: Yes oriented to person, Yes oriented to place and Yes oriented to time Skin: OTHER: Superficial decubitus ulcers on the presacral area Course Vital Signs: Vital signs: Vital Signs Temperature 98.4 F 06/22/23 15:39 Pulse Rate 65 06/22/23 16:20 Respiratory Rate 18 06/22/23 16:20 Blood Pressure 141/79 06/22/23 16:20 Pulse Oximetry 96 06/22/23 16:20 Oxygen Delivery Me thod Room Air 06/22/23 16:20 MDM - Abdominal Pain Medical Decision Making Relief of impaction with enema. Discharge patient home he does have some superficial denuding of the skin over the sacral area we will have him apply mupirocin over those areas. MiraLAX daily 1 capful for prevention of co nstipation. Follow-up with his primary care doctor in the next 2 to 3 days. Medical Records I reviewed the patient's medical records. Lab Data I reviewed the patient's lab results. 06/22/23 16:15 06/22/23 16:15 Labs/Radiology: Radiology Impressions Chest X-Ray 06/22/23 15:42 IMPRESSION: Mild cardiomegaly otherwise negative chest. Abdomen/Pelvis CT 06/22/23 15:56 IMPRESSION: 1. No acute findings within the abdomen or pelvis. 2. Findings consistent with constipation and some degree of fecal impaction in the rectosigmoid. 3. Colonic diverticulosis. No evidence of acute diverticulitis. 4. Cirrhosis with mild splenomegaly and a portosystemic collaterals consistent with portal hypertension, stable. 5. Chronic pericolonic fat changes lateral to the right colon stable from earlier studies. Laboratory Results WBC 6.25 10^3/uL (3.29-11.43) 06/22/23 16:15 RBC 3.59 10^6/uL (3.85-5.65) L 06/22/23 16:15 Hgb 12.30 g/dL (11.27-16.99) 06/22/23 16:15 Hct 35.7 % (37-53) L 06/22/23 16:15 MCV 99.4 fl (82-101) 06/22/23 16:15 MCH 34.3 pg (27-33) H 06/22/23 16:15 MCHC 34.5 g/dL (30-55) 06/22/23 16:15 RDW 14.1 % (12.1-15.1) 06/22/23 16:15 Plt Count 173 10^3/cmm (157-399) 06/22/23 16:15 MPV 9.8 fL (7.4-10.4) 06/22/23 16:15 Neut % (Auto) 70.8 % 06/22/23 16:15 Lymph % (Auto) 12.2 % 06/22/23 16:15 [place] % (Auto) 13.3 % 06/22/23 16:15 Eos % (Auto) 2.4 % 06/22/23 16:15 Baso % (Auto) 1.0 % 06/22/23 16:15 Neut # (Auto) 4.43 10^3/uL (1.8-7.7) 06/22/23 16:15 Lymph # (Auto) 0.8 10^3/uL (0.8-4.8) 06/22/23 16:15 [place] # (Auto) 0.8 10^3/uL (0.2-0.9) 06/22/23 16:15 Eos # (Auto) 0.2 10^3/uL (0.0-0.8) 06/22/23 16:15 Baso # (Auto) 0.1 10^3/uL (0.0-0.1) 06/22/23 16:15 Nucleated RBC % (auto) 0 % 06/22/23 16:15 Nucleated RBCs # 0.0 /100WBC 06/22/23 16:15 Sodium 132 mmol/L (136-145) L 06/22/23 16:15 Potassium 3.9 mmol/L (3.5-5.1) 06/22/23 16:15 Chloride 96 mmol/L (98-107) L 06/22/23 16:15 Carbon Dioxide 27 mmol/L (22-29) 06/22/23 16:15 Anion Gap 12.9 (5-19) 06/22/23 16:15 BUN 17 mg/dL (6-20) 06/22/23 16:15 Creatinine 1.2 mg/dL (0.7-1.2) 06/22/23 16:15 GFR Calculation 62.0 mL/min (90-130) L 06/22/23 16:15 Glucose 118 mg/dL (65-115) H 06/22/23 16:15 Calculated Osmolality 277 mOsm/kg (285-295) L 06/22/23 16:15 Calcium 9.1 mg/dL (8.5-10.5) 06/22/23 16:15 Total Bilirubin 1.6 mg/dL (0.15-1.2) H 06/22/23 16:15 AST 20 U/L (0-40) 06/22/23 16:15 ALT 14 U/L (0-41) 06/22/23 16:15 Alkaline Phosphatase 88 U/L (40-130) 06/22/23 16:15 Total Protein 6.8 g/dL (6.6-8.7) 06/22/23 16:15 Albumin 3.5 g/dL (3.5-5.2) 06/22/23 16:15 Globulin 3.3 g/dL (1.3-4.6) 06/22/23 16:15 Lipase 20 U/L (13-60) 06/22/23 16:15 All radiology interpretation(s) finalized by discharge Discharge Plan Discharge Patient Disposition: Home Clinical Impression: Constipation, Decubitus ulcer of sacral area Condition: Stable Prescriptions: New polyethylene glycol 3350 17 gram/dose powder 17 g PO DAILY Qty: 850 0RF mupirocin 2 % ointment 1 applic topical BID Qty: 50 0RF Rx Instructions: Apply to affected area twice daily No Action vitamin B complex [Vitamins B Complex] Tablet 1 tab PO DAILY@07 diltiazem HCl [Cardizem CD] 120 mg capsule,extended release 24hr 120 mg PO DAILY@07 levothyroxine 50 mcg tablet 50 mcg PO DAILY@06 (DME) Diabetic Shoe of RT foot See Rx Instructions .Route .MEDSUPPLY Qty: 1 0RF Rx Instructions: As directed thiamine HCl (vitamin B1) 50 mg tablet 50 mg PO DAILY@07 (DME) CAM BOOT See Rx Instructions .Route .MEDSUPPLY Qty: 1 0RF Rx Instructions: As directed (DME) [place] boot to right See Rx Instructions .Route .MEDSUPPLY Qty: 1 0RF Rx Instructions: As directed by [facility] (DME) Wheel chair with elevated foot rests and seat cushion See Rx Instructions .Route .MEDSUPPLY Qty: 1 0RF Rx Instructions: As directed by HOME (DME) [place] Boot to left See Rx Instructions .Route .MEDSUPPLY Qty: 1 0RF Rx Instructions: As directed by [facility] (DME) SOPHIA Martins Boot to the right See Rx Instructions .Route .MEDSUPPLY Qty: 1 0RF Rx Instructions: As directed (DME) Repairs and Adjustments to brace/boot See Rx Instructions .Route .MEDSUPPLY Qty: 1 0RF Rx Instructions: As directed by [facility] [place] folic acid 1 mg tablet 1 mg PO DAILY@07 fluticasone propionate [Flonase Allergy Relief] 50 mcg/actuation spray,suspension 2 spray intranasal DAILY@07 albuterol sulfate 90 mcg/actuation HFA aerosol inhaler 1 puff INHALATION Q4H PRN (Reason: shortness of breath/wheezing) PreserVision AREDS [id number] Capsule 1 cap PO DAILY@07 cetirizine [Zyrtec] 10 mg Tablet 10 mg PO DAILY@07 midodrine 5 mg tablet 5 mg PO TID pantoprazole 40 mg tablet,delayed release (DR/EC) 40 mg PO DAILY@07 potassium chloride 20 mEq Tablet Extended Release 20 meq PO BID@,19 Hold Instructions: Resume on 12/30/21. gabapentin 100 mg Capsule 100 mg PO TID levetiracetam 500 mg tablet 1,000 mg PO BID ferrous sulfate [iron] 325 mg (65 mg iron) Tablet 325 mg PO DAILY@07 furosemide 40 mg tablet 80 mg PO BID@07,12 naloxone 4 mg/actuation [place],Non-Aerosol 4 mg INTRANASAL Q3M PRN (Reason: overdose) Rx Instructions: spray 1 dose into ONE nostril; alternate nostrils w each dose until help arrives spironolactone 50 mg tablet 50 mg PO DAILY@07 alfuzosin 10 mg tablet extended release 24 hr 10 mg PO DAILY@07 Rx Instructions: administer after the same meal each day Tylenol 325 mg Tablet 325 - 650 mg PO Q4H PRN (Reason: Pain) Milk of Magnesia 400 mg/5 mL Suspension 30 ml PO DAILY PRN (Reason: Constipation) Rx Instructions: IF NO BM FOR 3 DAYS Dulcolax (bisacodyl) 10 mg Suppository 10 mg [place] DAILY PRN (Reason: Constipation) Rx Instructions: FOR NO BM FOR 4 DAYS Fleet Enema 19-7 gram/118 mL Enema 118 ml [place] DAILY PRN (Reason: Constipation) Rx Instructions: IF NO BM FOR 5 DAYS oxycodone 5 mg tablet 5 mg PO Q6H PRN (Reason: Pain) lactulose 20 gram/30 mL Solution 30 ml PO DAILY Qty: 1200 0RF Discharge Orders: Discharge ED (Routine); Ordered 06/22/23 Ordered By: Ghassan Cedeno Referrals: Yosvany Segovia MD [Primary Care Provider] - Discharge Diet: Usual diet Discharge Activity: Increase activity as tolerated Patient Instructions: Opioid Safety, Pain Management Activity Restrictions/Additional Instructions: MiraLAX daily 1 capful mixed with liquid of your choice. Follow-up with your primary care doctor within the next week. Coding Level of Care Code ED Pipe Manufacture Supervisor for Tay Rust
[2023-06-22] MEDS: ondansetron 2 mg/ML SDV 2 mL 4 MG IVP (16:18)
[2023-06-22 16:20] VITALS: BP 141/79; PULSE 65; RESP 18; O2SAT 95; O2SAT 96
[2023-06-22 16:27] LABS: Basophils # 0.1 10^3/uL (0.0-0.1); Eosinophils # 0.2 10^3/uL (0.0-0.8); Eosinophils % 2.4 %; Hematocrit 35.7 % (37-53); Lymphocytes # 0.8 10^3/uL (0.8-4.8); Lymphocytes % 12.2 %; Mean Corpuscular HGB Conc 34.5 g/dL (30-55); Mean Corpuscular Hemoglobin 34.3 pg (27-33); Mean Corpuscular Volume 99.4 fl (82-101); Mean Platelet Volume 9.8 fL (7.4-10.4); Monocytes # 0.8 10^3/uL (0.2-0.9); Monocytes % 13.3 %; Neutrophils # 4.43 10^3/uL (1.8-7.7); Neutrophils % 70.8 %; Nucleated Red Blood Cells % 0 %; Platelet Count 173 10^3/cmm (157-399); Red Blood Count 3.59 10^6/uL (3.85-5.65); Red Cell Distribution Width 14.1 % (12.1-15.1); White Blood Count 6.25 10^3/uL (3.29-11.43)
[2023-06-22 16:54] LABS: Alanine Aminotransferase 14 U/L (0-41); Albumin Level 3.5 g/dL (3.5-5.2); Alkaline Phosphatase 88 U/L (40-130); Anion Gap 12.9 (5-19); Aspartate Amino Transferase 20 U/L (0-40); Blood Urea Nitrogen 17 mg/dL (6-20); Calcium 9.1 mg/dL (8.5-10.5); Carbon Dioxide 27 mmol/L (22-29); Chloride 96 mmol/L (98-107); Globulin 3.3 g/dL (1.3-4.6); Glucose 118 mg/dL (65-115); Lipase 20 U/L (13-60); Osmolality Calculated 277 mOsm/kg (285-295); Potassium 3.9 mmol/L (3.5-5.1); Sodium 132 mmol/L (136-145); Total Bilirubin 1.6 mg/dL (0.15-1.2); Total Protein 6.8 g/dL (6.6-8.7)
[2023-06-22 18:56] VITALS: BP 152/99; PULSE 76; RESP 20; O2SAT 97
[2023-06-22 19:32] VITALS: BP 152/99; PULSE 70; RESP 20; O2SAT 98
== END 2023-06-22 20:43 | disposition home or self-care (01) ==
PROVIDERS: Emergency Provider Family Medicine; PCP Family Medicine
DX: K59.00 Constipation, unspecified (principal); L89.151 Pressure ulcer of sacral region, stage 1; K57.30 Diverticulosis of large intestine without perforation or abscess without bleeding; I13.0 Hypertensive heart and chronic kidney disease with heart failure and stage 1 through stage 4 chronic kidney disease, or unspecified chronic kidney disease; N18.9 Chronic kidney disease, unspecified; I50.9 Heart failure, unspecified; J44.9 Chronic obstructive pulmonary disease, unspecified
CPT/HCPCS: 71045; 74176; 80053; 83690; 85025; 93005; 96374; 99285; J2405; J7030

== ENCOUNTER 2023-06-23 11:23 | Inpatient (IN) | payer MEDICARE, MEDICAID, SELFPAY ==
[2023-06-23] VITALS (7 sets, daily range): BP systolic 98–148; BP diastolic 60–89; PULSE 61–84; RESP 16–19; TEMP 36.6–36.7; O2SAT 92–97; BMI 40.2
[2023-06-23 11:56] LABS: Basophils # 0.1 10^3/uL (0.0-0.1); Basophils % 1.1 %; Eosinophils # 0.3 10^3/uL (0.0-0.8); Eosinophils % 5.4 %; Hematocrit 35.3 % (37-53); Lymphocytes # 1.2 10^3/uL (0.8-4.8); Lymphocytes % 21.4 %; Mean Corpuscular Hemoglobin 33.7 pg (27-33); Mean Corpuscular Volume 99.2 fl (82-101); Monocytes # 0.6 10^3/uL (0.2-0.9); Monocytes % 11.4 %; Neutrophils # 3.25 10^3/uL (1.8-7.7); Neutrophils % 60.5 %; Nucleated Red Blood Cells % 0 %; Platelet Count 172 10^3/cmm (157-399); Red Blood Count 3.56 10^6/uL (3.85-5.65); Red Cell Distribution Width 14.2 % (12.1-15.1); White Blood Count 5.37 10^3/uL (3.29-11.43)
--- NOTE | 2023-06-23 11:57 | W.ED.WEAKNES ---
HPI - Weakness General: Chief complaint: Weakness Stated complaint: weakness in legs Time Seen by Provider: 06/23/23 11:23 Source: patient and EMS Mode of arrival: EMS Limitations: physical limitation History of Present Illness: Patient is a 58-year-old male who presents the emergency room via EMS for increased weakness and debility. Patient reports that he injured his foot approximately 4 months ago and was in [facility] for rehabilitation. Patient states that he did not have adequate rehab services and is unable to care for himself at home. Patient reports that he was in the emergency room last night for constipation. Patient went back home and was unable to stand, and states this has been an issue since fpc discharge. Patient reports that he would like fpc placement for further rehabilitation. Patient denies any chest pain, shortness of breath, nausea, vomiting, or abdominal pain. No other complaints at this time. MD Complaint: generalized weakness Duration: constant Location: LLE and RLE Severity: severe Associated symptoms: Denies chest pain, chills, fever(s), headache(s), nausea or vomiting Review of Systems Const: Denies: fever(s) or chills Eyes: Denies: change in vision or blurry vision ENMT: Denies: throat pain or mouth pain Card: Denies: chest pain or palpitations Resp: Denies: dyspnea or productive cough GI: Denies: abdominal pain, nausea or vomiting : Denies: flank pain or urinary urgency Musc: Reports: extremity pain, extremity swelling, limited range of motion and muscle weakness Skin/Breast: Denies: rash or pruritus Neuro: Denies: headache(s) or numbness in extremities Psych: Denies: anxiety [facility] ED PFSH: Medical History Acute hepatic encephalopathy Alcoholic cirrhosis of liver with ascites Anasarca Anemia Ataxia Atrial fibrillation and flutter BMI 50.0-59.9, adult BPH loc w urin obs/LUTS C. difficile diarrhea Charcot's arthropathy left foot Charcot's joint of left foot CHF (congestive heart failure) Echocardiogram done in 2019 shows an EF of 40 to 45% with hypokinetic septum, anteroseptum and inferior wall, biatrial enlargement Chronic hyponatremia varies with volume status Chronic kidney disease Contraindication to deep vein thrombosis (DVT) prophylaxis COPD (chronic obstructive pulmonary disease) Encephalopathy, hepatic End-stage liver disease not a candidate for transplant or tips at last evaluation Erectile dysfunction Esophageal varices Fracture of fourth metatarsal bone of left foot Fracture of second metatarsal bone of left foot Fracture of third metatarsal bone of left foot Hepatorenal syndrome History of abdominal paracentesis History of peritonitis Hx of esophageal varices Hypertension Hypothyroidism Morbid obesity Neuropathy Non-pressure chronic ulcer of other part of left foot limited to breakdown of skin Occult blood in stools Peritoneal dialysis catheter in situ Removed in 05/2021 due to recurrent bacterial peritonitis Peyronie disease Physical deconditioning Pleural effusion associated with hepatic disorder Pneumonia Portal hypertension PVD (peripheral vascular disease) PVD (peripheral vascular disease) Seizure Splenomegaly Stereotyped movements Upper gastrointestinal hemorrhage due to gastritis EGD with pyloric ulcer in 05/2021 Urinary tract infection Surgical History H/O colonoscopy H/O esophagogastroduodenoscopy History of tonsillectomy Hx of umbilical hernia repair Hx of vasectomy Status post surgery (07/05/20) peritoneal catheter for ascites Family History Grandfather CAD (coronary artery disease) Grandmother CAD (coronary artery disease) Cancer Father Cancer Denies family history of Anesthesia complication Bleeding disorder Social History Substance/Drug Use: never Housing: Penitentiary Marital status: Current occupational status: disabled Do you think of yourself as: Straight/Heterosexual Current gender identity: Male Physical Exam Const: COMMON NORMALS: patient oriented x3 and alert GENERAL APPEARANCE: cooperative and ill appearing ORIENTATION/CONSCIOUSNESS: Yes awake, Yes oriented to person, Yes oriented to place and Yes oriented to time HENMT: COMMON NORMALS: normocephalic HEAD & SCALP: normocephalic FACE & SINUS: normal facial exam Eye: COMMON NORMALS: Equal, round and reactive pupils present and EOMs intact bilaterally GENERAL EYE: appearance normal, both eyes and all related structures PUPIL: Yes Equal, round and reactive pupils present Neck/C-Spine: COMMON NORMALS: full ROM, no lymphadenopathy and no JVD Lymph: LYMPHATIC: no lymphadenopathy noted Chest: CHEST: Yes Symmetrical chest wall rise Resp: COMMON NORMALS: normal respiratory effort EFFORT & INSPECTION: Yes symmetric chest movement Cardio: COMMON NORMALS: no JVD and S1 normal heart sound present HEART SOUNDS: S1 normal heart sound present GI: COMMON NORMALS: Normal to inspection, nondistended, normoactive bowel sounds present INSPECTION: Yes normal to inspection AUSCULTATION: Yes normoactive bowel sounds : COMMON NORMALS: Yes no CVA tenderness BLADDER/KIDNEY EXAM: Yes no CVA tenderness Back/Pelvis: COMMON NORMALS: no CVA tenderness Extremity: OTHER: 4+ pitting edema to bilateral lower extremity. Boot in place to right lower foot. Neuro: COMMON NORMALS: patient oriented x3 SENSORIUM/ORIENTATION: Yes alert, Yes oriented to person, Yes oriented to place and Yes oriented to time SPEECH: speech normal Psych: COMMON NORMALS: mental status grossly normal Skin: GENERAL SKIN EXAM: crusts and dry skin Course Vital Signs: Vital signs: Vital Signs Temperature 98.1 F 06/23/23 11:24 Pulse Rate 68 06/23/23 12:45 Respiratory Rate 17 06/23/23 12:45 Blood Pressure 98/60 06/23/23 12:45 Pulse Oximetry 92 06/23/23 12:45 Oxygen Delivery Me thod Room Air 06/23/23 12:45 MDM - Weakness Medical Decision Making Patient presents for generalized weakness he is not able to ambulate he is not been taking care of himself at home and was to be placed in a fpc again. Did attempt fpc placement from the ER and was unsuccessful spoke to the hospitalist will admit this time for likely fpc placement Medical Records I reviewed the patient's medical records. Lab Data I reviewed the patient's lab results. 06/23/23 11:45 06/23/23 11:45 Laboratory Results WBC 5.37 10^3/uL (3.29-11.43) 06/23/23 11:45 RBC 3.56 10^6/uL (3.85-5.65) L 06/23/23 11:45 Hgb 12.00 g/dL (11.27-16.99) 06/23/23 11:45 Hct 35.3 % (37-53) L 06/23/23 11:45 MCV 99.2 fl (82-101) 06/23/23 11:45 MCH 33.7 pg (27-33) H 06/23/23 11:45 MCHC 34.0 g/dL (30-55) 06/23/23 11:45 RDW 14.2 % (12.1-15.1) 06/23/23 11:45 Plt Count 172 10^3/cmm (157-399) 06/23/23 11:45 MPV 10.0 fL (7.4-10.4) 06/23/23 11:45 Neut % (Auto) 60.5 % 06/23/23 11:45 Lymph % (Auto) 21.4 % 06/23/23 11:45 [place] % (Auto) 11.4 % 06/23/23 11:45 Eos % (Auto) 5.4 % 06/23/23 11:45 Baso % (Auto) 1.1 % 06/23/23 11:45 Neut # (Auto) 3.25 10^3/uL (1.8-7.7) 06/23/23 11:45 Lymph # (Auto) 1.2 10^3/uL (0.8-4.8) 06/23/23 11:45 [place] # (Auto) 0.6 10^3/uL (0.2-0.9) 06/23/23 11:45 Eos # (Auto) 0.3 10^3/uL (0.0-0.8) 06/23/23 11:45 Baso # (Auto) 0.1 10^3/uL (0.0-0.1) 06/23/23 11:45 Nucleated RBC % (auto) 0 % 06/23/23 11:45 Nucleated RBCs # 0.0 /100WBC 06/23/23 11:45 Sodium 130 mmol/L (136-145) L 06/23/23 11:45 Potassium 3.5 mmol/L (3.5-5.1) 06/23/23 11:45 Chloride 95 mmol/L (98-107) L 06/23/23 11:45 Carbon Dioxide 27 mmol/L (22-29) 06/23/23 11:45 Anion Gap 11.5 (5-19) 06/23/23 11:45 BUN 14 mg/dL (6-20) 06/23/23 11:45 Creatinine 1.1 mg/dL (0.7-1.2) 06/23/23 11:45 GFR Calculation 68.5 mL/min (90-130) L 06/23/23 11:45 Glucose 73 mg/dL (65-115) 06/23/23 11:45 Calculated Osmolality 269 mOsm/kg (285-295) L 06/23/23 11:45 Calcium 8.8 mg/dL (8.5-10.5) 06/23/23 11:45 No radiology studies performed this visit Discharge Plan Discharge Patient Disposition: Placed in Observation Clinical Impression: Generalized weakness Condition: Stable Prescriptions: No Action vitamin B complex [Vitamins B Complex] Tablet 1 tab PO DAILY@07 diltiazem HCl [Cardizem CD] 120 mg capsule,extended release 24hr 120 mg PO DAILY@07 levothyroxine 50 mcg tablet 50 mcg PO DAILY@06 ([facility]) Diabetic Shoe of RT foot See Rx Instructions .Route .MEDSUPPLY Qty: 1 0RF Rx Instructions: As directed thiamine HCl (vitamin B1) 50 mg tablet 50 mg PO DAILY@07 ([facility]) LUZ YATES See Rx Instructions .Route .MEDSUPPLY Qty: 1 0RF Rx Instructions: As directed ([facility]) Domingo yates to right See Rx Instructions .Route .MEDSUPPLY Qty: 1 0RF Rx Instructions: As directed by [facility] ([facility]) Wheel chair with elevated foot rests and seat cushion See Rx Instructions .Route .MEDSUPPLY Qty: 1 0RF Rx Instructions: As directed by HOME ([facility]) Domingo Yates to left See Rx Instructions .Route .MEDSUPPLY Qty: 1 0RF Rx Instructions: As directed by [facility] ([facility]) SOPHIA Yates to the right See Rx Instructions .Route .MEDSUPPLY Qty: 1 0RF Rx Instructions: As directed ([facility]) Repairs and Adjustments to brace/boot See Rx Instructions .Route .MEDSUPPLY Qty: 1 0RF Rx Instructions: As directed by [facility] [place] folic acid 1 mg tablet 1 mg PO DAILY@07 fluticasone propionate [Flonase Allergy Relief] 50 mcg/actuation spray,suspension 2 spray intranasal DAILY@07 albuterol sulfate 90 mcg/actuation HFA aerosol inhaler 1 puff INHALATION Q4H PRN (Reason: shortness of breath/wheezing) PreserVision AREDS [id number] Capsule 1 cap PO DAILY@07 cetirizine [Zyrtec] 10 mg Tablet 10 mg PO DAILY@07 midodrine 5 mg tablet 5 mg PO TID pantoprazole 40 mg tablet,delayed release (DR/EC) 40 mg PO DAILY@07 potassium chloride 20 mEq Tablet Extended Release 20 meq PO BID@07,19 Hold Instructions: Resume on 12/30/21. gabapentin 100 mg Capsule 100 mg PO TID levetiracetam 500 mg tablet 1,000 mg PO BID ferrous sulfate [iron] 325 mg (65 mg iron) Tablet 325 mg PO DAILY furosemide 40 mg tablet 80 mg PO BID@07,12 naloxone 4 mg/actuation [place],Non-Aerosol 4 mg INTRANASAL Q3M PRN (Reason: overdose) Rx Instructions: spray 1 dose into ONE nostril; alternate nostrils w each dose until help arrives spironolactone 50 mg tablet 50 mg PO DAILY@07 alfuzosin 10 mg tablet extended release 24 hr 10 mg PO DAILY@07 Rx Instructions: administer after the same meal each day acetaminophen [Tylenol] 325 mg Tablet 325 - 650 mg PO Q4H PRN (Reason: Pain) magnesium hydroxide [Milk of Magnesia] 400 mg/5 mL Suspension 30 ml PO DAILY PRN (Reason: Constipation) Rx Instructions: IF NO BM FOR 3 DAYS bisacodyl [Dulcolax (bisacodyl)] 10 mg Suppository 10 mg [place] DAILY PRN (Reason: Constipation) Rx Instructions: FOR NO BM FOR 4 DAYS Fleet Enema 19-7 gram/118 mL Enema 118 ml [place] DAILY PRN (Reason: Constipation) Rx Instructions: IF NO BM FOR 5 DAYS oxycodone 5 mg tablet 5 mg PO Q6H PRN (Reason: Pain) lactulose 20 gram/30 mL Solution 30 ml PO DAILY Qty: 1200 0RF polyethylene glycol 3350 17 gram/dose powder 17 g PO DAILY Qty: 850 0RF Rx Instructions: not started as of 06/23/23 mupirocin 2 % ointment 1 applic topical BID Qty: 50 0RF Rx Instructions: Apply to affected area twice daily Xifaxan 550 mg tablet 550 mg PO BID Rx Instructions: rx filled 06/19/23 Referrals: Yosvany Segovia MD [Primary Care Provider] - Coding Level of Care Code ED Leadership Development Instructor for Tay Rust
[2023-06-23 12:17] LABS: Anion Gap 11.5 (5-19); Blood Urea Nitrogen 14 mg/dL (6-20); Calcium 8.8 mg/dL (8.5-10.5); Carbon Dioxide 27 mmol/L (22-29); Chloride 95 mmol/L (98-107); Glomerular Filtration Rate 68.5 mL/min (90-130); Glucose 73 mg/dL (65-115); Osmolality Calculated 269 mOsm/kg (285-295); Potassium 3.5 mmol/L (3.5-5.1); Sodium 130 mmol/L (136-145)
--- NOTE | 2023-06-23 12:24 | PC.PHAR ---
pt states he takes care of his own medications-pt states he was discharged from [facility] [phone] on 06/19/23-pt states his meds are the same as when he was seen on 04/19/23 meds from 04/19/23 were entered from the pts mar at the time-went over each med we had from 04/19/23 and pt states he is still taking-ext shows xifaxin 550mg bid was filled 06/19/23 30d/s pt states he is taking -
--- NOTE | 2023-06-23 13:27 | PC.SOCIAL ---
SNF Placement Patient is agreeable to SNF placement. He states that he does not want to return to [facility]. He is under the impression that his son has been talking to [facility] and they acted like they would accept him. Referral faxed to [facility], Chintan Sal, [facility]. [facility], [facility], [facility], [facility]. Chintan Sal declines referral; stating that they do not have a bed available. [facility]; Anju states that they cannot accomodate over 400lbs. Charting indicates that patient weighs 297lbs. Called ER and asked if weight was from today,weight was stated by patient at yesterdays ER visit. Requested an accurate weight of patient for placement purposes.
--- NOTE | 2023-06-23 15:09 | PC.SOCIAL ---
Patient declined by [facility], [place], and [facility]. Spoke with Madai at [facility], she states that they have not reviewed yet.
--- NOTE | 2023-06-23 16:05 | PC.SOCIAL ---
Social Service Note Anju from [facility] reports that they are unable to accept due to patients size and they do not have a bariatric bed available. Tamra @ [facility] reports that they have referral and will discuss w/ therapy in the morning.
--- NOTE | 2023-06-23 17:14 | PM.HP ---
Providers/Chief Complaint Admitting Physician: Max Goodson Primary Care Provider: Yosvany Segovia MD Chief Complaint: leg pain History of Present Illness Yosvany Soto is a 58 year [id number] male with history of HFpEF, liver cirrhosis, end-stage liver disease, not candidate for liver transplantation, hepatorenal syndrome, seizures, morbid obesity, COPD, atrial fibrillation/flutter, CKD, PVD, smoking, hypoalbuminemia, chronic hyponatremia, CAD, Charcot's arthropathy, esophageal varices, history of fall, open trimalleolar right ankle fracture 02/12 for which he underwent debridement, stabilization with external fixator antibiotics during prior hospitalization discharged on 02/19, with R ankle fusion in the beginning of April, with follow-up with podiatry with dislocation of talus and calcaneus, well-healing right ankle arthrodesis showing bony union, intact hardware, consideration was given to casting versus a boot with recommendation for [place] boot due to requirement of triplane support which has been ordered. He had underwent rehabilitation in [place] since last discharge from the hospital, although feels it was inadequate and was discharged home too early, states has not been able to get up on his own, has assistance from his son at home has been unreliable, but states that he is not ready to be bedbound at this time, fears that this may become the case in case he is not having further support and therapy. Arrangements were attempted from ER but unsuccessful so far tonight. He has a pressure ulcer on his back. He has been constipated. [facility] has been receiving lactulose only once a week. Review of Systems Const: Denies: fever(s), chills, body aches or malaise ENMT: Denies: throat pain, oral sores or ear or mastoid pain Card: Denies: chest pain, edema, pre-syncope or dyspnea on exertion Resp: Denies: dyspnea, productive cough, change in phlegm color or hemoptysis GI: Reports: constipation; Denies: abdominal pain, nausea, vomiting, diarrhea, hematochezia or melena : Denies: flank pain, difficulty urinating, urinary frequency or hematuria Musc: Denies: back pain, joint swelling or joint redness Skin/Breast: Denies: rash or new lesions Neuro: Denies: headache(s), numbness in extremities, weakness in extremities, dizziness, confusion or seizure-like activity Medications/Allergies Home Medications Medication Instructions Recorded Confirmed Last Taken Type vitamin B complex (Vitamins B 1 tab PO DAILY@01/04/20 06/23/23 04/04/23 History Complex tablet) folic acid 1 mg tablet 1 mg PO DAILY@08/23/20 06/23/23 04/04/23 History fluticasone propionate 50 2 spray intranasal DAILY@09/08/20 06/23/23 04/04/23 History mcg/actuation nasal spray,suspension (Flonase Allergy Relief) albuterol sulfate 90 mcg/actuation 1 puff inhalation Q4H PRN 12/11/20 06/23/23 04/03/23 History aerosol inhaler shortness of breath/wheezing vitamins A,C,D-ljcw-bpbrud 4,296 1 cap PO DAILY@02/11/21 06/23/23 04/04/23 History mcg-226 mg-90 mg capsule (PreserVision AREDS) diltiazem HCl 120 mg 120 mg PO DAILY@04/24/21 06/23/23 04/04/23 History capsule,extended release 24 hr (Cardizem CD) cetirizine 10 mg tablet (Zyrtec) 10 mg PO DAILY@05/24/21 06/23/23 04/04/23 History levothyroxine 50 mcg tablet 50 mcg PO DAILY@08/15/21 06/23/23 04/04/23 History midodrine 5 mg tablet 5 mg PO TID 09/01/21 06/23/23 04/04/23 History pantoprazole 40 mg tablet,delayed 40 mg PO DAILY@09/01/21 06/23/23 04/04/23 History release potassium chloride 20 mEq 20 meq PO BID@09/01/21 06/23/23 04/04/23 History tablet,extended release gabapentin 100 mg capsule 100 mg PO TID 10/20/21 06/23/23 04/04/23 History thiamine HCl (vitamin B1) 50 mg 50 mg PO DAILY@11/29/21 06/23/23 04/04/23 History tablet ferrous sulfate 325 mg (65 mg 325 mg PO DAILY 12/24/21 06/23/23 04/04/23 History iron) tablet (iron) levetiracetam 500 mg tablet 1,000 mg PO BID 12/24/21 06/23/23 04/04/23 History Diabetic Shoe of RT foot #1 ea 01/29/22 06/23/23 Unknown Rx Repairs and Adjustments to #1 ea 02/07/22 06/23/23 Unknown Rx brace/boot [place] Boot to left #1 ea 03/22/22 06/23/23 Unknown Rx alfuzosin 10 mg tablet,extended 10 mg PO DAILY@11/04/22 06/23/23 04/04/23 History release 24 hr spironolactone 50 mg tablet 50 mg PO DAILY@11/04/22 06/23/23 04/04/23 History furosemide 40 mg tablet 80 mg PO BID@02/13/23 06/23/23 04/04/23 History naloxone 4 mg/actuation nasal spray 4 mg intranasal Q3M PRN overdose 02/13/23 06/23/23 Unknown History XL Cam Boot to the right #1 ea 03/21/23 06/23/23 Unknown Rx acetaminophen 325 mg tablet 325 - 650 mg PO Q4H PRN Pain 04/19/23 06/23/23 Unknown History (Tylenol) bisacodyl 10 mg rectal suppository 10 mg LA DAILY PRN Constipation 04/19/23 06/23/23 Unknown History (Dulcolax (bisacodyl)) lactulose 20 gram/30 mL oral 30 ml PO DAILY #1,200 mL 04/19/23 06/23/23 04/04/23 Rx solution magnesium hydroxide 400 mg/5 mL 30 ml PO DAILY PRN Constipation 04/19/23 06/23/23 Unknown History oral suspension (Milk of Magnesia) oxycodone 5 mg tablet 5 mg PO Q6H PRN Pain 04/19/23 06/23/23 Unknown History sodium phosphates 19 gram-7 118 ml LA DAILY PRN Constipation 04/19/23 06/23/23 Unknown History gram/118 mL enema (Fleet Enema) CAM BOOT #1 ea 05/08/23 06/23/23 Unknown Rx [place] boot to right #1 ea 06/19/23 06/23/23 Unknown Rx Wheel chair with elevated foot #1 ea 06/19/23 06/23/23 Unknown Rx rests and seat cushion mupirocin 2 % topical ointment 1 applic topical BID #50 grams 06/22/23 06/23/23 Unknown Rx polyethylene glycol 3350 17 17 g PO DAILY #850 grams 06/22/23 06/23/23 Unknown Rx gram/dose oral powder rifaximin 550 mg tablet (Xifaxan) 550 mg PO BID 06/23/23 06/23/23 Unknown History Allergies Allergy/AdvReac Type Severity Reaction Status Date / Time Penicillins Allergy Severe ALGY-Difficulty Verified 06/23/23 11:39 Breathing Sulfa (Sulfonamide Allergy Severe ALGY-Swell Verified 06/23/23 11:39 Antibiotics) Lip/Tongue/Throat PFSH Acute PFSH: Medical History Acute hepatic encephalopathy Alcoholic cirrhosis of liver with ascites Anasarca Anemia Ataxia Atrial fibrillation and flutter BMI 50.0-59.9, adult BPH loc w urin obs/LUTS C. difficile diarrhea Charcot's arthropathy left foot Charcot's joint of left foot CHF (congestive heart failure) Echocardiogram done in 2019 shows an EF of 40 to 45% with hypokinetic septum, anteroseptum and inferior wall, biatrial enlargement Chronic hyponatremia varies with volume status Chronic kidney disease Contraindication to deep vein thrombosis (DVT) prophylaxis COPD (chronic obstructive pulmonary disease) Encephalopathy, hepatic End-stage liver disease not a candidate for transplant or tips at last evaluation Erectile dysfunction Esophageal varices Fracture of fourth metatarsal bone of left foot Fracture of second metatarsal bone of left foot Fracture of third metatarsal bone of left foot Hepatorenal syndrome History of abdominal paracentesis History of peritonitis Hx of esophageal varices Hypertension Hypothyroidism Morbid obesity Neuropathy Non-pressure chronic ulcer of other part of left foot limited to breakdown of skin Occult blood in stools Peritoneal dialysis catheter in situ Removed in 05/2021 due to recurrent bacterial peritonitis Peyronie disease Physical deconditioning Pleural effusion associated with hepatic disorder Pneumonia Portal hypertension PVD (peripheral vascular disease) PVD (peripheral vascular disease) Seizure Splenomegaly Stereotyped movements Upper gastrointestinal hemorrhage due to gastritis EGD with pyloric ulcer in 05/2021 Urinary tract infection Surgical History H/O colonoscopy H/O esophagogastroduodenoscopy History of tonsillectomy Hx of umbilical hernia repair Hx of vasectomy Status post surgery (07/05/20) peritoneal catheter for ascites Family History Grandfather CAD (coronary artery disease) Grandmother CAD (coronary artery disease) Cancer Father Cancer Denies family history of Anesthesia complication Bleeding disorder Social History Substance/Drug Use: never Housing: Alf Marital status: Current occupational status: disabled Do you think of yourself as: Straight/Heterosexual Current gender identity: Male Vitals/I&O/Wt Last Vital Signs Temp 98.1 F 06/23/23 11:24 Pulse 68 06/23/23 12:45 Resp 17 06/23/23 12:45 BP 98/60 06/23/23 12:45 Pulse Ox 92 06/23/23 12:45 O2 Del Method Room Air 06/23/23 12:45 Weight last 48 hrs Weight 134.717 kg Physical Exam Const: COMMON NORMALS: patient oriented x3 and alert GENERAL APPEARANCE: cooperative NUTRITIONAL APPEARANCE: obese ORIENTATION/CONSCIOUSNESS: Yes awake HENMT: COMMON NORMALS: oropharynx normal Neck/C-Spine: COMMON NORMALS: no JVD Resp: COMMON NORMALS: normal respiratory effort and clear to auscultation bilaterally AUSCULTATION: clear to auscultation bilaterally Cardio: COMMON NORMALS: no JVD, regular rhythm, S1 normal heart sound present, S2 normal heart sound present and No murmurs present (Cardio) RHYTHM: regular rhythm HEART SOUNDS: S1 normal heart sound present and S2 normal heart sound present GI: COMMON NORMALS: Normal to inspection, nondistended, normoactive bowel sounds present, Soft to palpation and non-tender PALPATION: Yes Soft to palpation Extremity: COMMON NORMALS: no joint enlargement and no pedal edema NARRATIVE EXTREMITY EXAM: RLE in cam boot Neuro: COMMON NORMALS: patient oriented x3 and moves all extremities SENSORIUM/ORIENTATION: Yes alert Skin: COMMON NORMALS: no rashes or lesions noted GENERAL SKIN EXAM: no rashes or lesions noted Data 06/23/23 11:45 06/23/23 11:45 A&P Assessment and plan (1) Generalized weakness: Physical deconditioning. Has adjusted had rehabilitation, however, feels it was not adequate enough. He does not feel strong enough to be able to function dependently despite assistive devices he has currently. Case management working on disposition. Will obtain assessment by PT as well. At current time with cam boot nonweightbearing on right lower extremity, [place] boot is being ordered by podiatry. Generally weak, deconditioned. Does have decubitus ulcer on the bottom. Having constipation. Reviewed social security assessor documentation. Discussed with ER physician. (2) Decubitus ulcer of sacral area: Reposition, wound care with foam dressing. (3) Constipation: He has been constipated. Increase lactulose to twice daily. Milk of magnesia, Dulcolax, MiraLAX. At risk of hepatic encephalopathy. Target at least 1-2 BM per day. Plan Prior trimalleolar right ankle fracture status post ankle fusion, Charcot's arthropathy. Reviewed podiatry documentation. Liver cirrhosis, continue spironolactone, lactulose. He has been constipated. Increase lactulose to twice daily. Milk of magnesia, Dulcolax, MiraLAX. History hepatorenal syndrome: Continue monitoring. HFpEF: Not in exacerbation: Continue Lasix, spironolactone COPD: Not in exacerbation: Continue breathing treatments Seizure disorder: Continue Keppra Hypothyroidism: Continue levothyroxine morbid obesity Atrial fibrillation/flutter CKD PVD Smoking Hypoalbuminemia Chronic hyponatremia CAD Charcot's arthropathy BPH: Continue alfuzosin Other medical problems. Attestations Medical Necessity Statement*: Place in observation for additional assessment management with generalized weakness, physical deconditioning, unable to function at home, lacking support in a gentleman with right ankle fracture/status post fusion, Charcot arthropathy, morbid obesity, decubitus ulcer, liver cirrhosis, and multiple additional comorbidities as above. Diagnoses Generalized weakness R53.1 Decubitus ulcer of sacral area L89.159 Constipation K59.00
[2023-06-23] MEDS: levETIRAcetam 500 mg Tablet 1000 MG PO (20:22)
[2023-06-23] MEDS: oxyCODONE 5 mg IR Tab/Cap PO (20:22)
[2023-06-23] MEDS: gabapentin 100 mg Capsule PO (20:22)
[2023-06-23] MEDS: midodrine 5 mg TABLET PO (20:22)
[2023-06-23] MEDS: lactulose oral liq 20 gm/30 mL UDC PO (20:23)
[2023-06-24] VITALS (8 sets, daily range): BP systolic 100–135; BP diastolic 65–74; PULSE 68–88; RESP 16–18; TEMP 36.8–36.9; O2SAT 94–96
[2023-06-24] MEDS: cetirizine 10 mg Tablet PO (06:19)
[2023-06-24] MEDS: dilTIAZem ER (24HR) 120 mg Capsule PO (06:19)
[2023-06-24] MEDS: potassium chloride ER 20 mEq Tablet PO ×2 (06:19→18:02)
[2023-06-24] MEDS: fluticasone nasal spray 16gm Btl 2 SPRAY INTRANASAL (06:19)
[2023-06-24] MEDS: folic acid 1 mg Tablet PO (06:19)
[2023-06-24] MEDS: levothyroxine 50 mcg Tablet PO (06:20)
[2023-06-24] MEDS: alfuzosin 10 mg ER Tablet PO (06:20)
[2023-06-24] MEDS: FUROsemide 40 mg Tablet 80 MG PO ×2 (06:20→11:30)
[2023-06-24] MEDS: oxyCODONE 5 mg IR Tab/Cap PO ×3 (06:20→21:22)
[2023-06-24] MEDS: thiamine 100 mg Tablet 50 MG PO (06:20)
[2023-06-24] MEDS: spironolactone 25 mg Tablet 50 MG PO (06:20)
[2023-06-24] MEDS: pantoprazole DR 40 mg Tablet PO (06:20)
[2023-06-24] MEDS: lactulose oral liq 20 gm/30 mL UDC PO ×2 (07:46→18:02)
--- NOTE | 2023-06-24 09:35 | PC.CHAP ---
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 child psychologist visit [] Patient/Family/Request visit [] Outpatient visit [] Follow-up visit [] Physician referral [] Code/Alert [x] Routine visit [] Staff referral [] Actively dying [] Patient sleeping [] Family support [] [] Out of room [] Palliative care [] [] Receiving care in room [] Pre-surgical visit [] Trauma [] Long length of stay [] ICU visit [] Other: Relational/Emotional Strength [x] Patient feels connected with others/family/visitors/staff [] Distress [] Loneliness/isolation [] Abandonment Spirituality of Patient [x] Person of Jana [] Attends Jehov[employer] Witness of their Jana [x] Believes in Prayer [] Reads Bible or Latter Day materials [] There are Spiritual issues to be addressed Cloth Bin Packer Interventions [x] Prayer [x] Active listening [] Non-anxious presence [x] Spiritual/emotional support [] Crisis/trauma care [] Spiritual counseling [] Bereavement support [] Provided bereavement packet [] Provided Bible/devotional materials [] Provided toy/stuffed animal, coloring book to patient or family member [] Provided Communion [] Anointing/[place] [] Salvation [x] Completed spiritual assessment [] Other: Impact on Illness or Injury [] Angry [] Fearful [] Anxious [] Often cries [] Exhaustion [] Unable to work [] Unable to attend pentecostal [] Unable to walk/stand [] Unable to read [] Unable to drive [] Unable to eat/drink [] Unable to sleep [] Unable to be with family [] Patient intubated [] Other: Summary Time spent with patient 5 min
[2023-06-24] MEDS: ferrous sulfate EC 325 mg Tablet PO (11:04)
[2023-06-24] MEDS: levETIRAcetam 500 mg Tablet 1000 MG PO ×2 (11:05→18:02)
[2023-06-24] MEDS: gabapentin 100 mg Capsule PO ×3 (11:05→20:44)
[2023-06-24] MEDS: midodrine 5 mg TABLET PO (11:05)
--- NOTE | 2023-06-24 14:56 | PM.PN ---
Subjective Subjective: No new symptoms today. He is working with case management with regards to placement. Needing help with urinal as he cannot reach. Will work with physical therapy. Vitals/I&O/Wt Last Vital Signs Temp 98.4 F 06/24/23 11:16 Pulse 78 06/24/23 11:16 Resp 18 06/24/23 11:16 BP 135/72 06/24/23 11:16 Pulse Ox 94 06/24/23 11:16 O2 Del Method Room Air 06/24/23 11:16 06/23/23 06/24/23 06/24/23 22:59 06:59 14:59 Intake Total 240 / 240 600 / 600 Output Total 250 / 250 600 / 600 Balance 240 / 240 -250 / -10 0 / 0 Weight last 48 hrs Weight 134.717 kg Physical Exam Const: COMMON NORMALS: patient oriented x3 and alert GENERAL APPEARANCE: cooperative NUTRITIONAL APPEARANCE: obese ORIENTATION/CONSCIOUSNESS: Yes awake HENMT: COMMON NORMALS: oropharynx normal Neck/C-Spine: COMMON NORMALS: no JVD Resp: COMMON NORMALS: normal respiratory effort and clear to auscultation bilaterally AUSCULTATION: clear to auscultation bilaterally Cardio: COMMON NORMALS: no JVD, regular rhythm, S1 normal heart sound present, S2 normal heart sound present and No murmurs present (Cardio) RHYTHM: regular rhythm HEART SOUNDS: S1 normal heart sound present and S2 normal heart sound present GI: COMMON NORMALS: Normal to inspection, nondistended, normoactive bowel sounds present, Soft to palpation and non-tender PALPATION: Yes Soft to palpation Extremity: COMMON NORMALS: no joint enlargement and no pedal edema NARRATIVE EXTREMITY EXAM: RLE in cam boot Neuro: COMMON NORMALS: patient oriented x3 and moves all extremities SENSORIUM/ORIENTATION: Yes alert Skin: COMMON NORMALS: no rashes or lesions noted GENERAL SKIN EXAM: no rashes or lesions noted Data 06/23/23 11:45 06/23/23 11:45 A&P Assessment and plan (1) Generalized weakness: Physical deconditioning. Discussed with case management, discussed with physical therapist. Continue PT. Continue arrangements for placement. With obesity, physical deconditioning, nonweightbearing on the right side his functional capacity is very limited with poor social support he is currently unable to safely return home. Reviewed supportive employment case manager note. So far no luck with finding placement. Reviewed podiatry note. [place] boot has been ordered. Generally weak, deconditioned. Does have decubitus ulcer on the bottom. Resume lactulose twice daily at this time. Noted having a bowel movement. Target 1-2 bowel movements per day. Check TSH, check magnesium. Hold midodrine w BP elevated. (2) Decubitus ulcer of sacral area: Reposition, wound care with foam dressing. (3) Constipation: He has been constipated. Continue escalated bowel regimen. Lactulose twice daily. Milk of magnesia, Dulcolax, MiraLAX. At risk of hepatic encephalopathy. Target at least 1-2 BM per day. Plan Prior trimalleolar right ankle fracture status post ankle fusion, Charcot's arthropathy. Reviewed podiatry documentation. Liver cirrhosis, continue spironolactone, lactulose. He has been constipated. Increase lactulose to twice daily. Milk of magnesia, Dulcolax, MiraLAX. Midodrine held today as blood pressure elevated. History hepatorenal syndrome: Continue monitoring. HFpEF: Not in exacerbation: Continue Lasix, spironolactone COPD: Not in exacerbation: Continue breathing treatments Seizure disorder: Continue Keppra Hypothyroidism: Continue levothyroxine, check TSH. morbid obesity Atrial fibrillation/flutter: Continue Cardizem. Check Mg. CKD PVD Smoking Hypoalbuminemia Chronic hyponatremia CAD Charcot's arthropathy BPH: Continue alfuzosin Other medical problems. Attestations Medical Necessity Statement*: Continue admission needed due to generalized weakness, functional decline, and with morbid obesity, nonweightbearing status on right lower extremity, deconditioning, underlying liver cirrhosis, additional comorbidities. and High MDM includes amount and/or complexity of data reviewed/ordered [ ordered lab(s)/test(s) and other healthcare professional discussion] as documented Diagnoses Generalized weakness R53.1 Decubitus ulcer of sacral area L89.159 Constipation K59.00
[2023-06-24 16:48] LABS: Magnesium 1.9 mg/dL (1.7-2.3); Thyroid Stimulating Hormone 7.18 uIU/mL (0.27-4.20)
[2023-06-25] VITALS (9 sets, daily range): BP systolic 110–139; BP diastolic 57–82; PULSE 65–100; RESP 16–20; TEMP 36.4–36.9; O2SAT 94–97
[2023-06-25] MEDS: folic acid 1 mg Tablet PO (06:30)
[2023-06-25] MEDS: pantoprazole DR 40 mg Tablet PO (06:30)
[2023-06-25] MEDS: levothyroxine 50 mcg Tablet PO (06:30)
[2023-06-25] MEDS: alfuzosin 10 mg ER Tablet PO (06:30)
[2023-06-25] MEDS: cetirizine 10 mg Tablet PO (06:30)
[2023-06-25] MEDS: dilTIAZem ER (24HR) 120 mg Capsule PO (06:31)
[2023-06-25] MEDS: potassium chloride ER 20 mEq Tablet PO ×2 (06:31→18:15)
[2023-06-25] MEDS: thiamine 100 mg Tablet 50 MG PO (06:31)
[2023-06-25] MEDS: FUROsemide 40 mg Tablet 80 MG PO ×2 (06:31→11:45)
[2023-06-25] MEDS: fluticasone nasal spray 16gm Btl 2 SPRAY INTRANASAL (06:32)
[2023-06-25] MEDS: spironolactone 25 mg Tablet 50 MG PO (06:34)
[2023-06-25] MEDS: oxyCODONE 5 mg IR Tab/Cap PO ×2 (06:34→18:14)
[2023-06-25] MEDS: lactulose oral liq 20 gm/30 mL UDC PO ×2 (06:54→18:15)
[2023-06-25] MEDS: ferrous sulfate EC 325 mg Tablet PO (08:31)
[2023-06-25] MEDS: gabapentin 100 mg Capsule PO ×3 (08:31→20:10)
[2023-06-25] MEDS: polyethylene glycol 3350 Pkt 17 gm PO (08:31)
[2023-06-25] MEDS: levETIRAcetam 500 mg Tablet 1000 MG PO ×2 (08:31→18:15)
[2023-06-25] MEDS: midodrine 5 mg TABLET PO (08:32)
--- NOTE | 2023-06-25 11:38 | P.PN_ITS ---
Subjective Subjective: No changes in symptoms. Vitals/I&O/Wt Last Vital Signs Temp 97.6 F 06/25/23 07:39 Pulse 78 06/25/23 07:39 Resp 18 06/25/23 07:39 BP 128/81 06/25/23 07:39 Pulse Ox 96 06/25/23 07:39 O2 Del Method Room Air 06/25/23 07:39 O2 Flow Rate 0 06/25/23 08:50 06/24/23 06/25/23 06/25/23 22:59 06:59 14:59 Intake Total 240 / 840 480 / 480 Output Total 525 / 1125 150 / 1275 Balance -285 / -285 -150 / -435 480 / 480 Physical Exam Const: COMMON NORMALS: patient oriented x3 and alert GENERAL APPEARANCE: cooperative NUTRITIONAL APPEARANCE: obese ORIENTATION/CONSCIOUSNESS: Yes awake HENMT: COMMON NORMALS: oropharynx normal Neck/C-Spine: COMMON NORMALS: no JVD Resp: COMMON NORMALS: normal respiratory effort and clear to auscultation bilaterally AUSCULTATION: clear to auscultation bilaterally Cardio: COMMON NORMALS: no JVD, regular rhythm, S1 normal heart sound present, S2 normal heart sound present and No murmurs present (Cardio) RHYTHM: regular rhythm HEART SOUNDS: S1 normal heart sound present and S2 normal heart sound present GI: COMMON NORMALS: Normal to inspection, nondistended, normoactive bowel s ounds present, Soft to palpation and non-tender PALPATION: Yes Soft to pa lpation Extremity: COMMON NORMALS: no joint enlargement and no pedal edema NARRATIVE EXTREMITY EXAM: RLE in cam boot Neuro: COMMON NORMALS: patient oriented x3 and moves all extremities SENSORIUM/ORIENTATION: Yes alert Skin: COMMON NORMALS: no rashes or lesions noted GENERAL SKIN EXAM: no rashes or lesions noted Data 06/23/23 11:45 06/23/23 11:45 A&P Assessment and plan (1) Generalized weakness: Reviewed TSH, noted elevated. May have degree of hypothyroidism contributing. Increase levothyroxine to 63 mcg daily. Reviewed magnesium level. PT note reviewed. Continued arrangements for placement. Case management note reviewed. Discussed with case management. Physical deconditioning. Discussed with case management, discussed with physical therapist. Continue PT. Continue arrangements for placement. With obesity, physical deconditioning, nonweightbearing on the right side his functional capacity is very limited with poor social support he is currently unable to safely return home. Reviewed case aide note. So far no luck with finding placement. Reviewed podiatry note. [place] boot has been ordered. Generally weak, deconditioned. Does have decubitus ulcer on the bottom. Resume lactulose twice daily at this time. Noted having a bowel movement. Target 1-2 bowel movements per day. Decrease midodrine dose. (2) Decubitus ulcer of sacral area: Reposition, wound care with foam dressing. (3) Constipation: He has been constipated. Continue escalated bowel regimen. Lactulose twice daily. Milk of magnesia, Dulcolax, MiraLAX. At risk of hepatic encephalopathy. Target at least 1-2 BM per day. Plan Prior trimalleolar right ankle fracture status post ankle fusion, Charcot's arthropathy. Reviewed podiatry documentation. Liver cirrhosis, continue spironolactone, lactulose. Decrease midodrine dose. He has been constipated. Increase lactulose to twice daily. Milk of magnesia, Dulcolax, MiraLAX. History hepatorenal syndrome: Continue monitoring. HFpEF: Not in exacerbation: Continue Lasix, spironolactone COPD: Not in exacerbation: Continue breathing treatments Seizure disorder: Continue Keppra Hypothyroidism: Increase levothyroxine, Reviewed TSH. morbid obesity Atrial fibrillation/flutter: Continue Cardizem. Check Mg. CKD PVD Smoking Hypoalbuminemia Chronic hyponatremia CAD Charcot's arthropathy BPH: Continue alfuzosin Other medical problems. Attestations Medical Necessity Statement*: Continue admission for plan of generalized weakness, deconditioning, postdischarge planning and arrangements. and High MDM includes amount and/or complexity of data reviewed/ordered [ previous or external records, resulted lab(s)/test(s) and other healthcare professional discussion] as documented Diagnoses Generalized weakness R53.1 Decubitus ulcer of sacral area L89.159 Constipation K59.00
[2023-06-25] MEDS: midodrine 5 mg TABLET 2.5 MG PO ×2 (14:35→20:10)
[2023-06-26] VITALS (8 sets, daily range): BP systolic 109–137; BP diastolic 70–85; PULSE 62–82; RESP 16–18; TEMP 36.8–37; O2SAT 90–95
[2023-06-26] MEDS: oxyCODONE 5 mg IR Tab/Cap PO ×3 (00:24→15:01)
[2023-06-26] MEDS: levothyroxine 125 mcg Tablet 62.5 MCG PO (05:05)
[2023-06-26] MEDS: FUROsemide 40 mg Tablet 80 MG PO ×2 (06:15→11:41)
[2023-06-26] MEDS: alfuzosin 10 mg ER Tablet PO (06:15)
[2023-06-26] MEDS: cetirizine 10 mg Tablet PO (06:16)
[2023-06-26] MEDS: folic acid 1 mg Tablet PO (06:16)
[2023-06-26] MEDS: dilTIAZem ER (24HR) 120 mg Capsule PO (06:16)
[2023-06-26] MEDS: spironolactone 25 mg Tablet 50 MG PO (06:16)
[2023-06-26] MEDS: thiamine 100 mg Tablet 50 MG PO (06:17)
[2023-06-26] MEDS: pantoprazole DR 40 mg Tablet PO (06:17)
[2023-06-26] MEDS: fluticasone nasal spray 16gm Btl 2 SPRAY INTRANASAL (06:18)
[2023-06-26] MEDS: potassium chloride ER 20 mEq Tablet PO ×2 (06:27→18:08)
[2023-06-26] MEDS: lactulose oral liq 20 gm/30 mL UDC PO ×2 (06:30→18:08)
[2023-06-26] MEDS: midodrine 5 mg TABLET 2.5 MG PO ×3 (10:24→20:20)
[2023-06-26] MEDS: gabapentin 100 mg Capsule PO ×3 (10:25→20:20)
[2023-06-26] MEDS: levETIRAcetam 500 mg Tablet 1000 MG PO ×2 (10:25→17:08)
[2023-06-26] MEDS: ferrous sulfate EC 325 mg Tablet PO (10:25)
[2023-06-26] MEDS: nystatin cream 30 gm 1 APPLIC TOPICAL ×2 (11:42→17:08)
--- NOTE | 2023-06-26 13:14 | PM.PN ---
Subjective Subjective: Discussed with him regarding changes to levothyroxine with noted elevated TSH. He does note that he has been having some symptoms of hypothyroidism including constipation. He is working with case management regarding post discharge planning/placement. Vitals/I&O/Wt Last Vital Signs Temp 98.4 F 06/26/23 12:00 Pulse 82 06/26/23 12:00 Resp 17 06/26/23 12:00 BP 125/74 06/26/23 12:00 Pulse Ox 95 06/26/23 12:00 O2 Del Method Room Air 06/26/23 12:00 O2 Flow Rate 0 06/25/23 08:50 06/25/23 06/26/23 06/26/23 22:59 06:59 14:59 Intake Total 600 / 1320 480 / 480 Output Total 800 / 1700 650 / 2350 300 / 300 Balance -200 / -380 -650 / -1030 180 / 180 Weight last 48 hrs Weight 170.097 kg Physical Exam Const: COMMON NORMALS: patient oriented x3 and alert GENERAL APPEARANCE: cooperative NUTRITIONAL APPEARANCE: obese ORIENTATION/CONSCIOUSNESS: Yes awake HENMT: COMMON NORMALS: oropharynx normal Neck/C-Spine: COMMON NORMALS: no JVD Resp: COMMON NORMALS: normal respiratory effort and clear to auscultation bilaterally AUSCULTATION: clear to auscultation bilaterally Cardio: COMMON NORMALS: no JVD, regular rhythm, S1 normal heart sound present, S2 normal heart sound present and No murmurs present (Cardio) RHYTHM: regular rhythm HEART SOUNDS: S1 normal heart sound present and S2 normal heart sound present GI: COMMON NORMALS: Normal to inspection, nondistended, normoactive bowel sounds present, Soft to palpation and non-tender PALPATION: Yes Soft to palpation Extremity: COMMON NORMALS: no joint enlargement and no pedal edema NARRATIVE EXTREMITY EXAM: RLE in cam boot Neuro: COMMON NORMALS: patient oriented x3 and moves all extremities SENSORIUM/ORIENTATION: Yes alert Skin: COMMON NORMALS: no rashes or lesions noted GENERAL SKIN EXAM: no rashes or lesions noted Data 06/23/23 11:45 06/23/23 11:45 A&P Assessment and plan (1) Generalized weakness: Discussed with him increasing levothyroxine dose. Discussed with case management - pending post discharge arrangements. PT note reviewed. Physical deconditioning. Discussed with case management, discussed with physical therapist. Continue PT. Continue arrangements for placement. With obesity, physical deconditioning, nonweightbearing on the right side his functional capacity is very limited with poor social support he is currently unable to safely return home. Reviewed case management director note. So far no luck with finding placement. Reviewed podiatry note. [place] boot has been ordered. Generally weak, deconditioned. Does have decubitus ulcer on the bottom. Resume lactulose twice daily at this time. Noted having a bowel movement. Target 1-2 bowel movements per day. Blood pressures reviewed, noted doing better with decreasing midodrine dose. (2) Decubitus ulcer of sacral area: Reposition, wound care with foam dressing. (3) Constipation: He has been constipated. Continue escalated bowel regimen. Lactulose twice daily. Milk of magnesia, Dulcolax, MiraLAX. At risk of hepatic encephalopathy. Target at least 1-2 BM per day. Plan Prior trimalleolar right ankle fracture status post ankle fusion, Charcot's arthropathy. Reviewed podiatry documentation. Intertrigo: Add nystatin cream. Liver cirrhosis, continue spironolactone, lactulose. Decrease midodrine dose. He has been constipated. Increase lactulose to twice daily. Milk of magnesia, Dulcolax, MiraLAX. History hepatorenal syndrome: Continue monitoring. HFpEF: Not in exacerbation: Continue Lasix, spironolactone COPD: Not in exacerbation: Continue breathing treatments Seizure disorder: Continue Keppra Hypothyroidism: Increase levothyroxine, Reviewed TSH. morbid obesity Atrial fibrillation/flutter: Continue Cardizem. Check Mg. CKD PVD Smoking Hypoalbuminemia Chronic hyponatremia CAD Charcot's arthropathy BPH: Continue alfuzosin Other medical problems. Attestations Medical Necessity Statement*: Continue admission for plan of generalized weakness, deconditioning, postdischarge planning and arrangements. Diagnoses Generalized weakness R53.1 Decubitus ulcer of sacral area L89.159 Constipation K59.00
[2023-06-27] VITALS (7 sets, daily range): BP systolic 105–120; BP diastolic 60–73; PULSE 66–85; RESP 17–19; TEMP 36.6–37; O2SAT 96–98
[2023-06-27] MEDS: oxyCODONE 5 mg IR Tab/Cap PO ×3 (00:04→15:05)
[2023-06-27] MEDS: levothyroxine 125 mcg Tablet 62.5 MCG PO (05:25)
[2023-06-27] MEDS: potassium chloride ER 20 mEq Tablet PO (06:16)
[2023-06-27] MEDS: thiamine 100 mg Tablet 50 MG PO (06:17)
[2023-06-27] MEDS: cetirizine 10 mg Tablet PO (06:17)
[2023-06-27] MEDS: spironolactone 25 mg Tablet 50 MG PO (06:17)
[2023-06-27] MEDS: alfuzosin 10 mg ER Tablet PO (06:17)
[2023-06-27] MEDS: dilTIAZem ER (24HR) 120 mg Capsule PO (06:17)
[2023-06-27] MEDS: pantoprazole DR 40 mg Tablet PO (06:17)
[2023-06-27] MEDS: folic acid 1 mg Tablet PO (06:18)
[2023-06-27] MEDS: fluticasone nasal spray 16gm Btl 2 SPRAY INTRANASAL (06:18)
[2023-06-27] MEDS: FUROsemide 40 mg Tablet 80 MG PO ×2 (07:02→11:27)
[2023-06-27] MEDS: lactulose oral liq 20 gm/30 mL UDC PO (07:02)
[2023-06-27] MEDS: midodrine 5 mg TABLET 2.5 MG PO ×2 (09:38→15:05)
[2023-06-27] MEDS: polyethylene glycol 3350 Pkt 17 gm PO (09:38)
[2023-06-27] MEDS: levETIRAcetam 500 mg Tablet 1000 MG PO (09:38)
[2023-06-27] MEDS: gabapentin 100 mg Capsule PO ×2 (09:39→15:05)
[2023-06-27] MEDS: ferrous sulfate EC 325 mg Tablet PO (09:39)
[2023-06-27] MEDS: nystatin cream 30 gm 1 APPLIC TOPICAL (09:39)
--- NOTE | 2023-06-27 10:02 | P.DS_ITS ---
Discharge Providers Date of Admission: 06/24/23 15:18 Date of Discharge: June 27, 2023 Attending Provider at Admission: Max Goodson Attending Provider at Discharge: Max Goodson Primary Care Provider: Yosvany Segovia MD Diagnoses at Discharge Discharge Diagnosis (1) Generalized weakness: Status: Acute (2) Decubitus ulcer of sacral area: Status: Acute (3) Constipation: Status: Acute Reason for Visit Reason for Visit: leg pain Brief History: Yosvany Soto is a 58 year [id number] male with history of HFpEF, liver cirrhosis, end-stage liver disease, not candidate for liver transplantation, hepatorenal syndrome, seizures, morbid obesity, COPD, atrial fibrillation/flutter, CKD, PVD, smoking, hypoalbuminemia, chronic hyponatremia, CAD, Charcot's arthropathy, esophageal varices, history of fall, open trimalleolar right ankle fracture 02/12 for which he underwent debridement, stabilization with external fixator antibiotics during prior hospitalization discharged on 02/19, with R ankle fusion in the beginning of April, with follow- up with podiatry with dislocation of talus and calcaneus, well-healing right ankle arthrodesis showing bony union, intact hardware, consideration was given to casting versus a boot with recommendation for [place] boot due to requirement of triplane support which has been ordered. ? He had underwent rehabilitation in [place] since last discharge from the hospital, although feels it was inadequate and was discharged home too early, states has not been able to get up on his own, has assistance from his son at home has been unreliable, but states that he is not ready to be bedbound at this time, fears that this may become the case in case he is not having further support and therapy. ? Arrangements were attempted from ER but unsuccessful so far tonight. He has a pressure ulcer on his back. He has been constipated.? States has been receiving lactulose only once a week. Hospital Course Hospital Course Additional assessment revealed hypothyroidism suboptimally controlled with symptoms of constipation, feeling cold, TSH elevated 7.18. Levothyroxine dose was increased up to 63 mcg. Please follow-up thyroid function in 3 weeks. Nystatin cream started for intertrigo. Bowel regimen was escalated for constipation. Please continue lactulose and rifaximin, target 1-2 bowel movements per day to avoid hepatic encephalopathy. He was assessed and worked with physical therapy during hospitalization. As per discussion with podiatry with Cam boot securely in place can bear weight on right lower extremity only for a transfer. Otherwise nonweightbearing on right lower extremity until cleared to do so. Elevate RLE. Podiatry is working on arrangements for a UTE boot. He has a follow-up appointment. He is currently accepted at [facility] for further care. Physical Exam Const: COMMON NORMALS: patient oriented x3 and alert GENERAL APPEARANCE: cooperative NUTRITIONAL APPEARANCE: obese ORIENTATION/CONSCIOUSNESS: Yes awake HENMT: COMMON NORMALS: oropharynx normal Neck/C-Spine: COMMON NORMALS: no JVD Resp: COMMON NORMALS: normal respiratory effort and clear to auscultation bilaterally AUSCULTATION: clear to auscultation bilaterally Cardio: COMMON NORMALS: no JVD, regular rhythm, S1 normal heart sound present, S2 normal heart sound present and No murmurs present (Cardio) RHYTHM: regular rhythm HEART SOUNDS: S1 normal heart sound present and S2 normal heart sound present GI: COMMON NORMALS: Normal to inspection, nondistended, normoactive bowel sounds present, Soft to palpation and non-tender PALPATION: Yes Soft to palpation Extremity: COMMON NORMALS: no joint enlargement and no pedal edema NARRATIVE EXTREMITY EXAM: RLE in cam boot Neuro: COMMON NORMALS: patient oriented x3 and moves all extremities SENSORIUM/ORIENTATION: Yes alert Skin: COMMON NORMALS: no rashes or lesions noted GENERAL SKIN EXAM: no rashes or lesions noted Discharge Data Studies Completed and Pending Laboratory Results WBC 5.37 10^3/uL (3.29-11.43) 06/23/23 11:45 RBC 3.56 10^6/uL (3.85-5.65) L 06/23/23 11:45 Hgb 12.00 g/dL (11.27-16.99) 06/23/23 11:45 Hct 35.3 % (37-53) L 06/23/23 11:45 MCV 99.2 fl (82-101) 06/23/23 11:45 MCH 33.7 pg (27-33) H 06/23/23 11:45 MCHC 34.0 g/dL (30-55) 06/23/23 11:45 RDW 14.2 % (12.1-15.1) 06/23/23 11:45 Plt Count 172 10^3/cmm (157-399) 06/23/23 11:45 MPV 10.0 fL (7.4-10.4) 06/23/23 11:45 Neut % (Auto) 60.5 % 06/23/23 11:45 Lymph % (Auto) 21.4 % 06/23/23 11:45 [place] % (Auto) 11.4 % 06/23/23 11:45 Eos % (Auto) 5.4 % 06/23/23 11:45 Baso % (Auto) 1.1 % 06/23/23 11:45 Neut # (Auto) 3.25 10^3/uL (1.8-7.7) 06/23/23 11:45 Lymph # (Auto) 1.2 10^3/uL (0.8-4.8) 06/23/23 11:45 [place] # (Auto) 0.6 10^3/uL (0.2-0.9) 06/23/23 11:45 Eos # (Auto) 0.3 10^3/uL (0.0-0.8) 06/23/23 11:45 Baso # (Auto) 0.1 10^3/uL (0.0-0.1) 06/23/23 11:45 Nucleated RBC % (auto) 0 % 06/23/23 11:45 Nucleated RBCs # 0.0 /100WBC 06/23/23 11:45 Sodium 130 mmol/L (136-145) L 06/23/23 11:45 Potassium 3.5 mmol/L (3.5-5.1) 06/23/23 11:45 Chloride 95 mmol/L (98-107) L 06/23/23 11:45 Carbon Dioxide 27 mmol/L (22-29) 06/23/23 11:45 Anion Gap 11.5 (5-19) 06/23/23 11:45 BUN 14 mg/dL (6-20) 06/23/23 11:45 Creatinine 1.1 mg/dL (0.7-1.2) 06/23/23 11:45 GFR Calculation 68.5 mL/min (90-130) L 06/23/23 11:45 Glucose 73 mg/dL (65-115) 06/23/23 11:45 Calculated Osmolality 269 mOsm/kg (285-295) L 06/23/23 11:45 Calcium 8.8 mg/dL (8.5-10.5) 06/23/23 11:45 Magnesium 1.9 mg/dL (1.7-2.3) 06/23/23 11:45 TSH 7.18 uIU/mL (0.27-4.20) H 06/23/23 11:45 Vitals Last Vital Signs Temp 98.6 F 06/27/23 07:56 Pulse 85 06/27/23 07:56 Resp 17 06/27/23 07:56 BP 117/73 06/27/23 07:56 Pulse Ox 97 06/27/23 07:56 O2 Del Method Room Air 06/27/23 07:56 O2 Flow Rate 0 06/25/23 08:50 Discharge Plan Discharge Patient Disposition: Xfer SNF Condition: Stable Prescriptions: New levothyroxine 13 mcg capsule 13 mcg PO DAILY Qty: 30 0RF Rx Instructions: Together with 50mcg for total 63 mcg daily nystatin 100,000 unit/gram Cream 1 applic topical BID 14 Days Qty: 30 0RF Continued vitamin B complex [Vitamins B Complex] Tablet 1 tab PO DAILY@07 diltiazem HCl [Cardizem CD] 120 mg capsule,extended release 24hr 120 mg PO DAILY@07 levothyroxine 50 mcg tablet 50 mcg PO DAILY@06 ([facility] Diabetic Shoe of RT foot See Rx Instructions .Route .MEDSUPPLY Qty: 1 0RF Rx Instructions: As directed thiamine HCl (vitamin B1) 50 mg tablet 50 mg PO DAILY@07 ([facility]) LUZ GOMEZOT See Rx Instructions .Route .MEDSUPPLY Qty: 1 0RF Rx Instructions: As directed ([facility]) Domingo gomezot to right See Rx Instructions .Route .MEDSUPPLY Qty: 1 0RF Rx Instructions: As directed by [facility] ([facility]) Wheel chair with elevated foot rests and seat cushion See Rx Instructions .Route .MEDSUPPLY Qty: 1 0RF Rx Instructions: As directed by HOME ([facility]) [place] Boot to left See Rx Instructions .Route .MEDSUPPLY Qty: 1 0RF Rx Instructions: As directed by [employer] ([facility]) SOPHIA Aguiar to the right See Rx Instructions .Route .MEDSUPPLY Qty: 1 0RF Rx Instructions: As directed (DME) Repairs and Adjustments to brace/boot See Rx Instructions .Route .MEDSUPPLY Qty: 1 0RF Rx Instructions: As directed by [employer] folic acid 1 mg tablet 1 mg PO DAILY@07 fluticasone propionate [Flonase Allergy Relief] 50 mcg/actuation spray,suspension 2 spray intranasal DAILY@07 albuterol sulfate 90 mcg/actuation HFA aerosol inhaler 1 puff INHALATION Q4H PRN (Reason: shortness of breath/wheezing) [employer] AREDS [phone] [id number] Capsule 1 cap PO DAILY@07 cetirizine [Zyrtec] 10 mg Tablet 10 mg PO DAILY@07 midodrine 5 mg tablet 5 mg PO TID pantoprazole 40 mg tablet,delayed release (DR/EC) 40 mg PO DAILY@07 potassium chloride 20 mEq Tablet Extended Release 20 meq PO BID@07,19 Hold Instructions: Resume on 12/30/21. gabapentin 100 mg Capsule 100 mg PO TID levetiracetam 500 mg tablet 1,000 mg PO BID ferrous sulfate [iron] 325 mg (65 mg iron) Tablet 325 mg PO DAILY furosemide 40 mg tablet 80 mg PO BID@07,12 naloxone 4 mg/actuation [place],Non-Aerosol 4 mg INTRANASAL Q3M PRN (Reason: overdose) Rx Instructions: spray 1 dose into ONE nostril; alternate nostrils w each dose until help arrives spironolactone 50 mg tablet 50 mg PO DAILY@07 alfuzosin 10 mg tablet extended release 24 hr 10 mg PO DAILY@07 Rx Instructions: administer after the same meal each day acetaminophen [Tylenol] 325 mg Tablet 325 - 650 mg PO Q4H PRN (Reason: Pain) magnesium hydroxide [Milk of Magnesia] 400 mg/5 mL Suspension 30 ml PO DAILY PRN (Reason: Constipation) Rx Instructions: IF NO BM FOR 3 DAYS bisacodyl [Dulcolax (bisacodyl)] 10 mg Suppository 10 mg ND DAILY PRN (Reason: Constipation) Rx Instructions: FOR NO BM FOR 4 DAYS [place] Enema 19-7 gram/118 mL Enema 118 ml ND DAILY PRN (Reason: Constipation) Rx Instructions: IF NO BM FOR 5 DAYS oxycodone 5 mg tablet 5 mg PO Q6H PRN (Reason: Pain) lactulose 20 gram/30 mL Solution 30 ml PO DAILY Qty: 1200 0RF polyethylene glycol 3350 17 gram/dose powder 17 g PO DAILY Qty: 850 0RF Rx Instructions: not started as of 06/23/23 mupirocin 2 % ointment 1 applic topical BID Qty: 50 0RF Rx Instructions: Apply to affected area twice daily Xifaxan 550 mg tablet 550 mg PO BID Rx Instructions: rx filled 06/19/23 Discharge Orders: Discharge Order (Routine); Ordered 06/27/23 Ordered By: Max Goodson Referrals: SNF, PCP [Other] - 4-7 days [facility] [Other] (Per appointment) Yosvany Segovia MD [Primary Care Provider] - Discharge Diet: Regular Discharge Activity: Limit activity as instructed and As per PT/OT instructions Activity Restrictions/Additional Instructions: Non-weightbearing on RLE until cleared by podiatry, except if cam boot is on snugly can put weight only for a transfer. Elevate RLE. Please follow up with podiatry Dr Carrera as per appointment scheduled with clinic. They are working on arrangements for a UTE boot. With regards to liver cirrhosis, continue lactulose, rifaximin, target 1-2 bowel movements daily. Resume follow-up after discharge. Avoid constipation. Follow-up TSH in 3 weeks Discharge Attestations Time Spent in Discharge Care*: greater than 30 min Status at Discharge: Cognitive status at discharge: cognitively intact , Behavioral status at discharge: cooperative , Quality Metrics Clinical Quality Measures [ No reported AMI, CVA or VTE this stay] Coding Level of Care Code 46880 Total time (in minutes) for Discharge: 40 Diagnoses Generalized weakness R53.1 Decubitus ulcer of sacral area L89.159 Constipation K59.00
== END 2023-06-27 17:32 | disposition skilled nursing facility (03) | DRG 948 ==
LOC: ER 16:06 → MEDSURG 06-24 07:14
PROVIDERS: Admitting Provider Internal Medicine; Emergency Provider Emergency Medicine; PCP Family Medicine; Visit Provider Internal Medicine
DX: R53.1 Weakness (principal); I13.0 Hypertensive heart and chronic kidney disease with heart failure and stage 1 through stage 4 chronic kidney disease, or unspecified chronic kidney disease; I50.32 Chronic diastolic (congestive) heart failure; Z68.43 Body mass index [BMI] 50.0-59.9, adult; E87.1 Hypo-osmolality and hyponatremia; K76.6 Portal hypertension; L89.151 Pressure ulcer of sacral region, stage 1; E03.9 Hypothyroidism, unspecified; K59.00 Constipation, unspecified; Z79.891 Long term (current) use of opiate analgesic; N18.9 Chronic kidney disease, unspecified; K70.30 Alcoholic cirrhosis of liver without ascites; E66.01 Morbid (severe) obesity due to excess calories; J44.9 Chronic obstructive pulmonary disease, unspecified; I48.91 Unspecified atrial fibrillation; I73.9 Peripheral vascular disease, unspecified; G62.9 Polyneuropathy, unspecified; F17.210 Nicotine dependence, cigarettes, uncomplicated; I25.10 Atherosclerotic heart disease of native coronary artery without angina pectoris; M14.672 Charcot's joint, left ankle and foot; N40.1 Benign prostatic hyperplasia with lower urinary tract symptoms; L30.4 Erythema intertrigo; Z75.1 Person awaiting admission to adequate facility elsewhere; Z98.1 Arthrodesis status; G40.909 Epilepsy, unspecified, not intractable, without status epilepticus
CPT/HCPCS: 71045; 74176; 80048; 80053; 83690; 83735; 84443; 85025; 93005; 96374; 97110; 97161; 97530; 99285; G0378; J2405; J7030

== ENCOUNTER 2023-07-05 03:41 | Emergency (ER) | payer MEDICARE, MEDICAID, SELFPAY ==
[2023-07-05 03:45] VITALS: BP 152/84; PULSE 72; RESP 16; TEMP 36.7; O2SAT 96; BMI 43.9
--- NOTE | 2023-07-05 04:14 | XRR_ITS ---
PROCEDURE INFORMATION: Exam: XR Chest Exam date and time: 07/05/2023 4:22 AM Age: 58 years old Clinical indication: Other: AMS; Patient HX: Arrival from halfway for confusion. History of chf. TECHNIQUE: Imaging protocol: Radiologic exam of the chest. Views: 1 view. COMPARISON: CR (CHEST, ) 06/22/2023 4:36 PM FINDINGS: Lungs: Unremarkable. No consolidation. Pleural spaces: Unremarkable. No pleural effusion. No pneumothorax. Heart/Mediastinum: Unremarkable. No cardiomegaly. Bones/joints: Unremarkable. XR/XR chest 1V portable [id number] IMPRESSION: No acute findings.
[2023-07-05 04:21] VITALS: BP 152/84; PULSE 99; RESP 16; O2SAT 96
[2023-07-05 04:25] LABS: Glucose Point of Care 96 mg/dL (70-110)
[2023-07-05 04:27] LABS: Basophils # 0.1 10^3/uL (0.0-0.1); Basophils % 1.1 %; Eosinophils # 0.3 10^3/uL (0.0-0.8); Eosinophils % 3.9 %; Hematocrit 39.6 % (37-53); Lymphocytes # 1.3 10^3/uL (0.8-4.8); Lymphocytes % 19.6 %; Mean Corpuscular HGB Conc 33.3 g/dL (30-55); Mean Corpuscular Hemoglobin 33.3 pg (27-33); Mean Platelet Volume 9.9 fL (7.4-10.4); Monocytes # 0.9 10^3/uL (0.2-0.9); Monocytes % 13.4 %; Neutrophils # 3.98 10^3/uL (1.8-7.7); Neutrophils % 61.7 %; Nucleated Red Blood Cells % 0 %; Platelet Count 155 10^3/cmm (157-399); Red Blood Count 3.96 10^6/uL (3.85-5.65); Red Cell Distribution Width 14.6 % (12.1-15.1); White Blood Count 6.44 10^3/uL (3.29-11.43)
[2023-07-05 04:50] LABS: Ammonia 145 umol/L (16-60)
[2023-07-05 04:52] LABS: Alanine Aminotransferase 14 U/L (0-41); Albumin Level 3.7 g/dL (3.5-5.2); Alkaline Phosphatase 93 U/L (40-130); Anion Gap 14.7 (5-19); Aspartate Amino Transferase 22 U/L (0-40); Blood Urea Nitrogen 21 mg/dL (6-20); C Reactive Protein 5.5 mg/L (0.0-4.9); Calcium 9.7 mg/dL (8.5-10.5); Carbon Dioxide 30 mmol/L (22-29); Chloride 97 mmol/L (98-107); Globulin 3.2 g/dL (1.3-4.6); Glomerular Filtration Rate 56.5 mL/min (90-130); Glucose 103 mg/dL (65-115); Osmolality Calculated 289 mOsm/kg (285-295); Potassium 3.7 mmol/L (3.5-5.1); Sodium 138 mmol/L (136-145); Total Bilirubin 1.3 mg/dL (0.15-1.2); Total Protein 6.9 g/dL (6.6-8.7)
[2023-07-05 04:53] LABS: Alcohol Level < 10 mg/dL (0-10); Lactic Sepsis W/Reflex 1.7 mmol/L (0.5-2.2)
[2023-07-05 05:06] VITALS: BP 152/84; PULSE 82; O2SAT 96
[2023-07-05 05:08] LABS: Add Urine Microscopic? NO; Charge for UA Resulting for Rev
[2023-07-05 05:21] LABS: Specific Gravity, Urine 1.005 (1.005-1.030); Urine Appearance Clear (CLEAR); Urine Color Yellow (Yellow); pH Urine 7 (5-7)
[2023-07-05 05:22] LABS: Bilirubin Urine Neg (Negative); Blood Urine Neg (Negative); Glucose Urine UA Norm (Normal); Ketones Urine Negative (Negative); Leukocyte Esterase Urine Negative (Negative); Nitrate Urine Negative (Negative); Protein Urine Neg (Negative); Urobilinogen Urine 1 mg/dL (Negative)
--- NOTE | 2023-07-05 06:47 | PC.NURSE ---
Report was given to Paige Ponce in [facility]. No questions were asked and EMS was contacted to transfer patient back to facility.
[2023-07-05] MEDS: acetaminophen 325 mg Tablet 650 MG PO (10:28)
--- NOTE | 2023-07-05 16:29 | W.ED.AMS ---
HPI - Altered Mental Status General: Chief Complaint: Altered Mental Status Stated Complaint: CONFUSED Time Seen by Provider: 07/05/23 04:13 History of Present Illness: 58 year old male alf patient presenting this morning with confusion. Evidently nursing staff woke him this morning, and he seemed confused. On arrival, he is essentially alert and oriented times four. He believes that he ?feels a little funny? like his ammonia level might be high. There's no history of fever, no vomiting. He knows that he has had a decrease in number of bowel movements since being sent to the alf several days ago from this facility. Review of Systems Const: Denies: fever(s) Eyes: Denies: change in vision ENMT: Denies: throat pain Card: Denies: chest pain Resp: Denies: dyspnea GI: Reports: nausea; Denies: abdominal pain, vomiting or diarrhea : Denies: flank pain Neuro: Reports: confusion and Slurred speech present PFSH ED PFSH: Medical History Acute hepatic encephalopathy Alcoholic cirrhosis of liver with ascites Anasarca Anemia Ataxia Atrial fibrillation and flutter BMI 50.0-59.9, adult BPH loc w urin obs/LUTS C. difficile diarrhea Charcot's arthropathy left foot Charcot's joint of left foot CHF (congestive heart failure) Echocardiogram done in 2019 shows an EF of 40 to 45% with hypokinetic septum, anteroseptum and inferior wall, biatrial enlargement Chronic hyponatremia varies with volume status Chronic kidney disease Contraindication to deep vein thrombosis (DVT) prophylaxis COPD (chronic obstructive pulmonary disease) Encephalopathy, hepatic End-stage liver disease not a candidate for transplant or tips at last evaluation Erectile dysfunction Esophageal varices Fracture of fourth metatarsal bone of left foot Fracture of second metatarsal bone of left foot Fracture of third metatarsal bone of left foot Hepatorenal syndrome History of abdominal paracentesis History of peritonitis Hx of esophageal varices Hypertension Hypothyroidism Morbid obesity Neuropathy Non-pressure chronic ulcer of other part of left foot limited to breakdown of skin Occult blood in stools Peritoneal dialysis catheter in situ Removed in 05/2021 due to recurrent bacterial peritonitis Peyronie disease Physical deconditioning Pleural effusion associated with hepatic disorder Pneumonia Portal hypertension PVD (peripheral vascular disease) PVD (peripheral vascular disease) Seizure Splenomegaly Stereotyped movements Upper gastrointestinal hemorrhage due to gastritis EGD with pyloric ulcer in 05/2021 Urinary tract infection Surgical History H/O colonoscopy H/O esophagogastroduodenoscopy History of tonsillectomy Hx of umbilical hernia repair Hx of vasectomy Status post surgery (07/05/20) peritoneal catheter for ascites Family History Grandfather CAD (coronary artery disease) Grandmother CAD (coronary artery disease) Cancer Father Cancer Denies family history of Anesthesia complication Bleeding disorder Social History Substance/Drug Use: never Housing: Snf Marital status: Current occupational status: disabled Do you think of yourself as: Straight/Heterosexual Current gender identity: Male Physical Exam Const: COMMON NORMALS: no acute distress GENERAL APPEARANCE: cooperative NUTRITIONAL APPEARANCE: obese HENMT: COMMON NORMALS: normocephalic, atraumatic and Normal external nose present HEAD & SCALP: normocephalic and atraumatic FACE & SINUS: normal facial exam NOSE: Normal external nose present Eye: COMMON NORMALS: Equal, round and reactive pupils present and EOMs intact bilaterally SCLERA: sclerae normal PUPIL: Yes Equal, round and reactive pupils present Neck/C-Spine: COMMON NORMALS: supple GENERAL: Yes trachea midline Chest: CHEST: Yes Symmetrical chest wall rise Resp: COMMON NORMALS: normal respiratory effort, No retractions, No use of accessory muscles and clear to auscultation bilaterally AUSCULTATION: clear to auscultation bilaterally Cardio: COMMON NORMALS: regular rate and regular rhythm RATE: regular rate RHYTHM: regular rhythm Extremity: GENERAL: Yes edema Neuro: NATHALIE COMA SCALE: document GCS findings [place] coma scale eye opening: Spontaneous Nathalie coma scale verbal response: Orientated [place] coma scale motor response: Obey commands [place] coma scale total score: 15 SPEECH: abnormal speech Details: slurred Skin: NARRATIVE SKIN EXAM: pressure ulcers as documented by nursing Course Vital Signs: Vital signs: Vital Signs Temperature 98.1 F 07/05/23 03:45 Pulse Rate 82 07/05/23 05:06 Respiratory Rate 16 07/05/23 04:21 Blood Pressure 152/84 07/05/23 05:06 Pulse Oximetry 96 07/05/23 05:06 Oxygen Delivery Me thod Room Air 07/05/23 05:06 MDM - Altered Mental Status Medical Decision Making This patient is mostly appropriate on examination. He has no focal neurologic deficits. His battles have been stable here. Laboratory shows a platelet count of 155, creatinine of 1.3. Both are baseline. Chest X-ray is negative. He does not have belly tenderness. Urinalysis is normal. CRP is only 5.5. Building Amin is 1.3, lactic acid 1.7. His ammonia level is 145. This is significantly elevated, however not near the highest he has been. He has noticed a decrease in bowel movements. He'll be placed on magnesium citrate, and Lactulose will be increased to three times daily, until the patient is having more than two bowel movements daily. Ammonia level to be checked on Friday period to return for worsening symptoms. Lab Data 07/05/23 04:06 07/05/23 04:06 Radiology Impressions Chest X-Ray 07/05/23 04:14 IMPRESSION: No acute findings. Laboratory Results WBC 6.44 10^3/uL (3.29-11.43) 07/05/23 04:06 RBC 3.96 10^6/uL (3.85-5.65) 07/05/23 04:06 Hgb 13.20 g/dL (11.27-16.99) 07/05/23 04:06 Hct 39.6 % (37-53) 07/05/23 04:06 MCV 100.0 fl (82-101) 07/05/23 04:06 MCH 33.3 pg (27-33) H 07/05/23 04:06 MCHC 33.3 g/dL (30-55) 07/05/23 04:06 RDW 14.6 % (12.1-15.1) 07/05/23 04:06 Plt Count 155 10^3/cmm (157-399) L 07/05/23 04:06 MPV 9.9 fL (7.4-10.4) 07/05/23 04:06 Neut % (Auto) 61.7 % 07/05/23 04:06 Lymph % (Auto) 19.6 % 07/05/23 04:06 [place] % (Auto) 13.4 % 07/05/23 04:06 Eos % (Auto) 3.9 % 07/05/23 04:06 Baso % (Auto) 1.1 % 07/05/23 04:06 Neut # (Auto) 3.98 10^3/uL (1.8-7.7) 07/05/23 04:06 Lymph # (Auto) 1.3 10^3/uL (0.8-4.8) 07/05/23 04:06 [place] # (Auto) 0.9 10^3/uL (0.2-0.9) 07/05/23 04:06 Eos # (Auto) 0.3 10^3/uL (0.0-0.8) 07/05/23 04:06 Baso # (Auto) 0.1 10^3/uL (0.0-0.1) 07/05/23 04:06 Nucleated RBC % (auto) 0 % 07/05/23 04:06 Nucleated RBCs # 0.0 /100WBC 07/05/23 04:06 Sodium 138 mmol/L (136-145) 07/05/23 04:06 Potassium 3.7 mmol/L (3.5-5.1) 07/05/23 04:06 Chloride 97 mmol/L (98-107) L 07/05/23 04:06 Carbon Dioxide 30 mmol/L (22-29) H 07/05/23 04:06 Anion Gap 14.7 (5-19) 07/05/23 04:06 BUN 21 mg/dL (6-20) H 07/05/23 04:06 Creatinine 1.3 mg/dL (0.7-1.2) H 07/05/23 04:06 GFR Calculation 56.5 mL/min (90-130) L 07/05/23 04:06 Glucose 103 mg/dL (65-115) 07/05/23 04:06 POC Glucose 96 mg/dL (70-110) 07/05/23 04:18 Calculated Osmolality 289 mOsm/kg (285-295) 07/05/23 04:06 Lactic Acid 1.7 mmol/L (0.5-2.2) 07/05/23 04:06 Calcium 9.7 mg/dL (8.5-10.5) 07/05/23 04:06 Total Bilirubin 1.3 mg/dL (0.15-1.2) H 07/05/23 04:06 AST 22 U/L (0-40) 07/05/23 04:06 ALT 14 U/L (0-41) 07/05/23 04:06 Alkaline Phosphatase 93 U/L (40-130) 07/05/23 04:06 Ammonia 145 umol/L (16-60) H 07/05/23 04:06 C-Reactive Protein 5.5 mg/L (0.0-4.9) H 07/05/23 04:06 Total Protein 6.9 g/dL (6.6-8.7) 07/05/23 04:06 Albumin 3.7 g/dL (3.5-5.2) 07/05/23 04:06 Globulin 3.2 g/dL (1.3-4.6) 07/05/23 04:06 Urine Color Yellow (Yellow) 07/05/23 05:05 Urine Appearance Clear (CLEAR) 07/05/23 05:05 Urine pH 7 (5-7) 07/05/23 05:05 Ur Specific [place] 1.005 (1.005-1.030) 07/05/23 05:05 Urine Protein Neg (Negative) 07/05/23 05:05 Urine Glucose (UA) Norm (Normal) 07/05/23 05:05 Urine Ketones Negative (Negative) 07/05/23 05:05 Urine Blood Neg (Negative) 07/05/23 05:05 Urine Nitrate Negative (Negative) 07/05/23 05:05 Urine Bilirubin Neg (Negative) 07/05/23 05:05 Urine Urobilinogen 1 mg/dL (Negative) H 07/05/23 05:05 Ur Leukocyte Esterase Negative (Negative) 07/05/23 05:05 Ethyl Alcohol < 10 mg/dL (0-10) 07/05/23 04:06 XR interpretation done by ED provider, pending radiology final review Discharge Plan Discharge Patient Disposition: Home Clinical Impression: Acute hepatic encephalopathy Condition: Stable Prescriptions: New Citrate of Magnesia Solution 300 ml PO DAILY Qty: 296 0RF No Action vitamin B complex [Vitamins B Complex] Tablet 1 tab PO DAILY@07 diltiazem HCl [Cardizem CD] 120 mg capsule,extended release 24hr 120 mg PO DAILY@07 levothyroxine 50 mcg tablet 50 mcg PO DAILY@06 (DME) Diabetic Shoe of RT foot See Rx Instructions .Route .MEDSUPPLY Qty: 1 0RF Rx Instructions: As directed thiamine HCl (vitamin B1) 50 mg tablet 50 mg PO DAILY@07 (DME) CAM BOOT See Rx Instructions .Route .MEDSUPPLY Qty: 1 0RF Rx Instructions: [place] [place]ingo boot to right See Rx Instructions .Route .MEDSUPPLY Qty: 1 0RF Rx Instructions: As directed by [facility] [place] [place] Wheel chair with elevated foot rests and seat cushion See Rx Instructions .Route .MEDSUPPLY Qty: 1 0RF Rx Instructions: As directed by [place] Domingo Boot to left See Rx Instructions .Route .MEDSUPPLY Qty: 1 0RF Rx Instructions: As directed by [facility] [place] SOPHIA Martins Boot to the right See Rx Instructions .Route .MEDSUPPLY Qty: 1 0RF Rx Instructions: As [place] [place] Repairs and Adjustments to brace/boot See Rx Instructions .Route .MEDSUPPLY Qty: 1 0RF Rx Instructions: As directed by [facility] folic acid 1 mg tablet 1 mg PO DAILY@07 fluticasone propionate [Flonase Allergy Relief] 50 mcg/actuation spray,suspension 2 spray intranasal DAILY@07 albuterol sulfate 90 mcg/actuation HFA aerosol inhaler 1 puff INHALATION Q4H PRN (Reason: shortness of breath/wheezing) PreserVision AREDS [id number] Capsule 1 cap PO DAILY@07 cetirizine [Zyrtec] 10 mg Tablet 10 mg PO DAILY@07 midodrine 5 mg tablet 5 mg PO TID pantoprazole 40 mg tablet,delayed release (DR/EC) 40 mg PO DAILY@07 potassium chloride 20 mEq Tablet Extended Release 20 meq PO BID@ Hold Instructions: Resume on 12/30/21. gabapentin 100 mg Capsule 100 mg PO TID levetiracetam 500 mg tablet 1,000 mg PO BID ferrous sulfate [iron] 325 mg (65 mg iron) Tablet 325 mg PO DAILY furosemide 40 mg tablet 80 mg PO BID@, naloxone 4 mg/actuation Tolar,Non-Aerosol 4 mg INTRANASAL Q3M PRN (Reason: overdose) Rx Instructions: spray 1 dose into ONE nostril; alternate nostrils w each dose until help arrives spironolactone 50 mg tablet 50 mg PO DAILY@07 alfuzosin 10 mg tablet extended release 24 hr 10 mg PO DAILY@07 Rx Instructions: administer after the same meal each day acetaminophen [Tylenol] 325 mg Tablet 325 - 650 mg PO Q4H PRN (Reason: Pain) magnesium hydroxide [Milk of Magnesia] 400 mg/5 mL Suspension 30 ml PO DAILY PRN (Reason: Constipation) Rx Instructions: IF NO BM FOR 3 DAYS bisacodyl [Dulcolax (bisacodyl)] 10 mg Suppository 10 mg MO DAILY PRN (Reason: Constipation) Rx Instructions: FOR NO BM FOR 4 DAYS Fleet Enema 19-7 gram/118 mL Enema 118 ml MO DAILY PRN (Reason: Constipation) Rx Instructions: IF NO BM FOR 5 DAYS oxycodone 5 mg tablet 5 mg PO Q6H PRN (Reason: Pain) lactulose 20 gram/30 mL Solution 30 ml PO DAILY Qty: 1200 0RF polyethylene glycol 3350 17 gram/dose powder 17 g PO DAILY Qty: 850 0RF Rx Instructions: not started as of 06/23/23 mupirocin 2 % ointment 1 applic topical BID Qty: 50 0RF Rx Instructions: Apply to affected area twice daily Xifaxan 550 mg tablet 550 mg PO BID Rx Instructions: rx filled 06/19/23 levothyroxine 13 mcg capsule 13 mcg PO DAILY Qty: 30 0RF Rx Instructions: Together with 50mcg for total 63 mcg daily nystatin 100,000 unit/gram Cream 1 applic topical BID 14 Days Qty: 30 0RF Discharge Orders: Discharge ED (Routine); Ordered 07/05/23 Ordered By: Reji Dupont Referrals: Yosvany Segovia MD [Primary Care Provider] - 1-3 days Patient Instructions: Hepatic Encephalopathy (DC) Activity Restrictions/Additional Instructions: Use the magnesium citrate today. This should produce a bowel movement significant enough to begin to decrease the ammonia level. Following this, increase lactulose from once a day, to 3 times daily. Check ammonia level on Saturday 07/07 and report level 2 attending physician. Return for worsening symptoms despite treatment. Coding Level of Care Code ED Clinical Lab Assistant for Tay Rust
== END 2023-07-05 12:55 | disposition home or self-care (01) ==
PROVIDERS: Emergency Provider Emergency Medicine; PCP Family Medicine
DX: K76.82 Hepatic encephalopathy (principal); I13.0 Hypertensive heart and chronic kidney disease with heart failure and stage 1 through stage 4 chronic kidney disease, or unspecified chronic kidney disease; N18.9 Chronic kidney disease, unspecified; I50.9 Heart failure, unspecified; J44.9 Chronic obstructive pulmonary disease, unspecified
CPT/HCPCS: 36416; 71045; 80053; 80307; 81003; 82140; 82962; 83605; 85025; 86140; 99284

== ENCOUNTER → 2023-07-07 12:41 | Outpatient (BNVA) | payer MEDICARE, MEDICAID, SELFPAY | PROVIDERS: PCP Family Medicine; Visit Provider Nurse Practitioner Family | DX: R30.0 Dysuria (principal); R31.9 Hematuria, unspecified | CPT/HCPCS: 81003; 87077; 87086; 87184 ==

== ENCOUNTER 2023-07-10 14:01 | Outpatient (CLI) | payer MEDICARE, MEDICAID, SELFPAY ==
[2023-07-10 14:53] LABS: Ammonia 126 umol/L (16-60)
== END 2023-07-10 14:02 | disposition home or self-care (01) ==
LOC: LAB 14:05
PROVIDERS: PCP Family Medicine; Visit Provider Nurse Practitioner Family
DX: K74.60 Unspecified cirrhosis of liver (principal); R79.89 Other specified abnormal findings of blood chemistry
CPT/HCPCS: 36415; 82140

== ENCOUNTER → 2023-07-17 15:21 | Outpatient (BNVA) | payer MEDICARE, MEDICAID, SELFPAY | PROVIDERS: PCP Family Medicine; Visit Provider Podiatrist Foot & Ankle Surgery | DX: Z98.890 Other specified postprocedural states; S93.04XD Dislocation of right ankle joint, subsequent encounter; X58.XXXD Exposure to other specified factors, subsequent encounter; Z98.1 Arthrodesis status | CPT/HCPCS: 73610; 99213 ==

== ENCOUNTER → 2023-07-25 13:13 | Outpatient (BNVA) | payer MEDICARE, MEDICAID, SELFPAY | PROVIDERS: PCP Family Medicine; Visit Provider Family Medicine | DX: R30.0 Dysuria (principal) | CPT/HCPCS: 81000 ==

== ENCOUNTER → 2023-08-20 14:12 | Outpatient (BNVA) | payer MEDICARE, MEDICAID, SELFPAY | PROVIDERS: PCP Family Medicine; Visit Provider Nurse Practitioner Family | DX: R30.9 Painful micturition, unspecified (principal) | CPT/HCPCS: 81003; 87077; 87086; 87184 ==

== ENCOUNTER → 2023-10-20 14:02 | Outpatient (BNVA) | payer MEDICARE, MEDICAID, SELFPAY | PROVIDERS: PCP Family Medicine; Visit Provider Podiatrist Foot & Ankle Surgery | DX: Z98.1 Arthrodesis status (principal); M25.371 Other instability, right ankle; S93.04XS Dislocation of right ankle joint, sequela; X58.XXXS Exposure to other specified factors, sequela | CPT/HCPCS: 73610; 99214 ==

== ENCOUNTER 2023-11-10 13:02 | Outpatient (CLI) | payer MEDICARE, MEDICAID, SELFPAY ==
--- NOTE | 2023-11-10 13:00 | USCV_ITS ---
Yosvany Soto Age: 58 Gender: M : 1965 Exam Date: 11/10/2023 13:38 Ordering Phys: Yosvany Segovia MD Technologist: YADIRA [place] [facility] [place]ication: Pre surgery eval BP: 128 / 72 HR: Rhythm: Atrial fibrillation Technical Quality: Very technically difficult study MEASUREMENTS (Male / Female) Normal Values 2D ECHO LA Diameter 3.8 cm DOPPLER AV Peak Velocity 100.0 cm/s LVOT Peak Velocity 92.0 cm/s MV Area PHT 3.0 cm squared Mitral E to A Ratio 7.5 TR Peak Velocity 121.0 cm/s TR Peak Gradient 5.9 mmHg TR Mean Velocity 100.0 cm/s TR Mean Gradient 4.2 mmHg TR Velocity Time Integral 26.6 cm TV Peak E Velocity 1.0 cm/s FINDINGS Left Ventricle Right Ventricle Right Atrium Left Atrium Mitral Valve Aortic Valve Tricuspid Valve Pulmonic Valve Pericardium Aorta IVC CONCLUSIONS Technically very limited quality echocardiogram. Difficult to visualize cardiac structures. Grossly LV systolic function is normal. All the valves are not well-visualized, however by Doppler exam, no significant aortic stenosis seen. Comparison with prior echocardiograms not possible because of poor visualization of cardiac structures on current study. Compa Escamilla MD (Electronically Signed) Final Date: 17 November 2023 11:31 S
== END 2023-11-10 13:03 | disposition home or self-care (01) ==
LOC: RAD 13:02
PROVIDERS: PCP Family Medicine; Visit Provider Family Medicine
DX: I48.91 Unspecified atrial fibrillation (principal)
CPT/HCPCS: 93306

== ENCOUNTER 2023-11-21 08:27 | Day surgery (SDC) | payer MEDICARE, MEDICAID, SELFPAY ==
[2023-11-21] VITALS (12 sets, daily range): BP systolic 105–148; BP diastolic 56–88; PULSE 64–82; RESP 13–20; TEMP 36.1–36.2; O2SAT 91–100; BMI 44.9
[2023-11-21] MEDS: albuterol 2.5 mg/3 mL Neb INHALATION (09:13)
[2023-11-21] MEDS: sodium chloride 0.9% 1,000 ML 30 ML IV (09:44)
--- NOTE | 2023-11-21 09:52 | W.PM.OPSUD ---
Surgery/Procedure H&P Update DATE OF PROCEDURE: November 21, 2023 DATE H&P PERFORMED: 10/20/23 H&P UPDATE INFORMATION: I have reviewed H&P completed within last 30 days, I have examined patient prior to procedure, No changes to prior documentation and H&P is in [facility] [place] EMR on date indicated PREOP DIAGNOSIS: Right talonavicular and subtalar joint dislocation PLANNED PROCEDURE: Operation Date: 11/21/23 10:00 Proposed Procedures p Subtalar Joint Fusion(Right) - Amaury Carrera DPM s Talonavicular Joint Fusion(Right) - Amaury Carrera DPM s Hardware Removal/ Possible hardware removal right ankle(Right) - Amaury Carrera DPM
--- NOTE | 2023-11-21 10:14 | P.ANESASSM_ITS ---
Pre-Anesthetic Assessment Height/Weight: Height 1.85 m Weight 154.221 kg Temp Pulse Resp BP Pulse Ox O2 Del Method 97.1 F L 81 16 148/73 95 Nasal Cannula 11/21/23 08:53 11/21/23 09:11 11/21/23 09:11 11/21/23 08:53 11/21/23 09:11 11/21/23 09:11 Preop Diagnosis: Right talonavicular and subtalar joint dislocation Operation Date: 11/21/23 10:00 Proposed Procedures p Subtalar Joint Fusion(Right) - Amaury Carrera DPM s Talonavicular Joint Fusion(Right) - JADE Pemberton Hardware Removal/ Possible hardware removal right ankle(Right) - Amaury Carrera DPM Last intake: Intake Last Liquid Date 11/20/23 Last Liquid Time 23:30 Last Solid Date 11/20/23 Last Solid Time 17:30 Social Alcohol and Tobacco Exam Normal Cardiopulmonary exam Airway Submandibular: within normal limits Cervical ROM: Other (limited) Mallampati: Class II Dentition: chipped Comments: Comments: Poor dentition. Pulmonary Chronic Obstructive Pulmonary Disease, Exertional Dyspnea and Shortness of Breath CV/HEM Anemia and Hypertension Hepatic Cirrhosis (EtOH) GI Gastroesophageal Reflux Disease Metabolic Diabetes Mellitus, Hyperlipidemia, Morbid Obesity and Thyroid Disease Musc/skel Osteoarthritis/DJD Anesthetic Plan ASA status: 4 Anesthesia: General (GETA) Medications/Allergies Home Medications Medication Instructions Recorded Confirmed Last Taken Type vitamin B complex (Vitamins B 1 tab PO DAILY@01/04/20 11/20/23 11/20/23 History Complex tablet) folic acid 1 mg tablet 1 mg PO DAILY@08/23/20 11/20/23 11/20/23 History fluticasone propionate 50 2 spray intranasal DAILY@09/08/20 11/21/23 11/21/23 History mcg/actuation nasal spray,suspension (Flonase Allergy Relief) albuterol sulfate 90 mcg/actuation 1 puff inhalation Q4H PRN 12/11/20 11/20/23 04/03/23 History aerosol inhaler shortness of breath/wheezing vitamins A,C,E-myzu-kyfewv 4,296 1 cap PO DAILY@02/11/21 11/20/23 11/20/23 History mcg-226 mg-90 mg capsule (PreserVision AREDS) diltiazem HCl 120 mg 120 mg PO DAILY@04/24/21 11/21/23 11/21/23 History capsule,extended release 24 hr (Cardizem CD) cetirizine 10 mg tablet (Zyrtec) 10 mg PO DAILY@05/24/21 11/20/23 04/04/23 History levothyroxine 50 mcg tablet 50 mcg PO DAILY@08/15/21 11/21/23 11/21/23 History midodrine 5 mg tablet 5 mg PO TID 09/01/21 11/20/23 11/20/23 History pantoprazole 40 mg tablet,delayed 40 mg PO DAILY@09/01/21 11/20/23 11/20/23 History release potassium chloride 20 mEq 20 meq PO BID@09/01/21 11/20/23 11/20/23 History tablet,extended release gabapentin 100 mg capsule 100 mg PO TID 10/20/21 11/21/23 11/21/23 History thiamine HCl (vitamin B1) 50 mg 50 mg PO DAILY@11/29/21 11/20/23 11/20/23 History tablet ferrous sulfate 325 mg (65 mg 325 mg PO DAILY 12/24/21 11/20/23 11/20/23 History iron) tablet (iron) levetiracetam 500 mg tablet 1,000 mg PO BID 12/24/21 11/21/23 11/21/23 History alfuzosin 10 mg tablet,extended 10 mg PO DAILY@11/04/22 11/20/23 11/20/23 History release 24 hr spironolactone 50 mg tablet 50 mg PO DAILY@11/04/22 11/20/23 11/20/23 History furosemide 40 mg tablet 80 mg PO BID@02/13/23 11/20/23 11/20/23 History acetaminophen 325 mg tablet 325 - 650 mg PO Q4H PRN Pain 04/19/23 11/20/23 Unknown History (Tylenol) lactulose 20 gram/30 mL oral 30 ml PO DAILY #1,200 mL 04/19/23 11/20/23 11/20/23 Rx solution sodium phosphates 19 gram-7 118 ml ME DAILY PRN Constipation 04/19/23 11/20/23 Unknown History gram/118 mL enema (Fleet Enema) CAM BOOT #1 ea 05/08/23 11/04/23 Unknown Rx Wheel chair with elevated foot #1 ea 06/19/23 11/04/23 Unknown Rx rests and seat cushion rifaximin 550 mg tablet (Xifaxan) 550 mg PO BID 06/23/23 11/20/23 11/20/23 Histo ry levothyroxine 13 mcg capsule 13 mcg PO DAILY #30 caps 06/27/23 11/21/23 11/21/23 Rx hydrocodone 7.5 mg-acetaminophen 1 tab PO Q8H PRN Pain 11/04/23 11/21/23 11/21/23 History 325 mg tablet hydrocodone 10 mg-acetaminophen 1 tab PO Q6H PRN pain 7 days #28 11/20/23 Unknown Rx 325 mg tablet tabs Allergies Allergy/AdvReac Type Severity Reaction Status Date / Time Penicillins Allergy Severe ALGY-Difficulty Verified 10/20/23 13:52 Breathing Sulfa (Sulfonamide Allergy Severe ALGY-Swell Verified 10/20/23 13:52 Antibiotics) Lip/Tongue/Throat Current Medications Generic Name Dose Route Start Last Admin Trade Name Freq PRN Reason Stop Dose Admin Sodium Chloride 1,000 mls @ 30 mls/hr 11/21/23 08:45 11/21/23 09:44 Sodium Chloride 0.9% IV 11/22/23 08:44 30 mls/hr .Q24H DHAVAL Administration PFSH Anesthesia Medical History Unspecified atrial flutter Alcoholic polyneuropathy Advanced chronic obstructive pulmonary disease Hepatic failure, unspecified without coma Chronic atrial fibrillation, unspecified Physical deconditioning Hypothyroidism Urinary tract infection BMI 50.0-59.9, adult Acute hepatic encephalopathy Hypertension COPD (chronic obstructive pulmonary disease) History of peritonitis Morbid obesity Contraindication to deep vein thrombosis (DVT) prophylaxis Splenomegaly Portal hypertension Chronic kidney disease Esophageal varices PVD (peripheral vascular disease) Seizure Stereotyped movements Anasarca CHF (congestive heart failure) Echocardiogram done in 2019 shows an EF of 40 to 45% with hypokinetic septum, anteroseptum and inferior wall, biatrial enlargement Encephalopathy, hepatic Upper gastrointestinal hemorrhage due to gastritis EGD with pyloric ulcer in 05/2021 Occult blood in stools Peritoneal dialysis catheter in situ Removed in 05/2021 due to recurrent bacterial peritonitis Anemia Alcoholic cirrhosis of liver with ascites Hepatorenal syndrome BPH loc w urin obs/LUTS C. difficile diarrhea Chronic hyponatremia varies with volume status Pleural effusion associated with hepatic disorder Pneumonia Fracture of fourth metatarsal bone of left foot Fracture of third metatarsal bone of left foot Fracture of second metatarsal bone of left foot Non-pressure chronic ulcer of other part of left foot limited to breakdown of skin Charcot's joint of left foot Atrial fibrillation and flutter Ataxia Hx of esophageal varices Charcot's arthropathy left foot Neuropathy PVD (peripheral vascular disease) End-stage liver disease not a candidate for transplant or tips at last evaluation Erectile dysfunction Peyronie disease Surgical History Status post surgery (07/05/20) peritoneal catheter for ascites History of tonsillectomy H/O colonoscopy H/O esophagogastroduodenoscopy History of abdominal paracentesis Hx of umbilical hernia repair Hx of vasectomy Family History Grandfather CAD (coronary artery disease) Grandmother CAD (coronary artery disease) Cancer Father Cancer Denies family history of Anesthesia complication Bleeding disorder Social History Substance/Drug Use: never Housing: Halfway Marital status: Current occupational status: disabled Do you think of yourself as: Straight/Heterosexual Current gender identity: Male Data Anesthesia Cardiac Studies: Echocardiogram 11/10/23 Echocardiogram Ultrasound 05/31/20
[2023-11-21] MEDS: clindamycin 600 MG/50 ML PREMIX 100 MG IV (10:30)
--- NOTE | 2023-11-21 10:49 | PC.NURSE ---
PT ARRIVING FROM [facility]. PT VERBALIZED KNOWLEDGE OF WOUNDS IN VARIOUS STAGES OF HEALING ON BUTTOCKS. RN VISUALIZED SKIN TEAR ON LEFT HIP WHERE BRIEF WAS ON PT. PT AWARE OF SKIN TEAR, VERBALIZED THAT THIS IS NOT A NEW TEAR.
[2023-11-21] MEDS: BUPivacaine 0.5% INJ 30 mL INJECTION (11:11)
[2023-11-21] MEDS: lidocaine 2% INJ 20 mL INJECTION (11:11)
--- NOTE | 2023-11-21 12:46 | P.BOP_ITS ---
Date of Procedure: 11/21/23 Surgeon: Amaury Carrera DPM Compensation Business Partner(s): ISAIAS Gorman Procedure(s) performed: Right subtalar joint and talonavicular joint fusion Findings of the procedure(s): Poor bone density Estimated blood loss: 10 cc Specimen(s) removed: none Post-operative diagnosis: Right subtalar joint and talonavicular joint dislocation No complications with anesthesia or surgery.
[2023-11-21] MEDS: ketorolac 30 mg/mL INJ IVP (12:53)
--- NOTE | 2023-11-21 13:01 | XR_ITS ---
WS: [id number] Right foot, 3 views, 11/21/2023 Clinical Data: post op Comparison: Right ankle, 10/20/2023 Findings: The complex fusion of the ankle joint with an anterior plate fixed with multiple screws remains in go od position. There is also an additional oblique screw fusing the ankle joint. The screws are in the distal tibia and the talus. Additional screws have been added to fuse the posterior talocalcaneal articulation. There is also a screw to fuse the anterior portion of the calcaneus with the talus. There is a medial plate with mul tiple screws reducing the dislocation between the talus and tarsal navicular. A fiberglass cast stabi lizes the new arthrodesis. Impression: 1. New complex arthrodesis fusing the talocalcaneal and talo navicular articulations. 2. Old fusion of the right ankle with an anterior plate and screws in the distal right tibia and the talus.
[2023-11-21] MEDS: HYDROcodone-acetaminophen 10-325 mg Tablet 1 TAB PO (13:56)
--- NOTE | 2023-11-21 14:25 | ANE.PACU2 ---
Inpatient post-anesthesia follow up: Airway intact: Yes Vital signs: Temperature 97.0 F Pulse Rate 68 Respiratory Rate 18 Blood Pressure 133/70 Pulse Oximetry 91 Oxygen Delivery Me thod Room Air Oxygen Flow Rate 6 Fraction of Inspir ed Oxygen Hydration adequate: Yes Nausea and vomiting: No Pain level: 4 Mental status: Baseline
[2023-11-21] MEDS: cyclobenzaprine 10 mg Tablet PO (14:44)
[2023-11-21] MEDS: oxyCODONE 10 mg ER (12 HR) Tablet PO (14:47)
--- NOTE | 2023-11-21 15:17 | P.OP_ITS ---
Operative Report Date of procedure: November 21, 2023 Pre-op diagnosis: Closed dislocation of right talus at subtalar joint and talonavicular joint. Post-op diagnosis: Same Post-op findings: Poor bone density Procedure done: Right subtalar joint fusion. CPT code 49131 Right talonavicular joint fusion. CPT code 65941 Surgeon: Amaury Carrera DPM [employer] Supervisor: Sherif ESPARZA Estimated blood loss: 5 See intraoperative documentation IV fluids: See intraoperative documentation Urine output: 0 Complications: None Findings: Poor bone density Brief History: Patient has had a history of injuries, initially had an open trimalleolar fracture managed by another physician, was complicated with external fixator that was damage when the patient fell out of his bed at a long term causing further injury, he is also status post right ankle joint fusion, had uneventful healing of the fusion site, unfortunately has instability and dislocation of the subtalar joint and talonavicular joint necessitating additional fusions as he has failed to heal this conservatively with offloading and nonweightbearing for greater than 8 weeks. I reviewed at length with the patient, the risks, potential complications, benefits, alternatives, expectations, and typical outcomes associated with the surgery. The risks and potential complications were explained in detail, including but not limited to infection, wound dehiscence or soft tissue complications, bleeding and hematoma, chronic edema, neuritis or nerve damage producing numbness or chronic pain, CRPS, failure to relieve pain or worsening pain, thick / painful / unsightly scar, limited motion / stiffness, malposition, delayed union, malunion, or nonunion, fracture, reaction to implan ts, anesthetic complications, venous thromboembolism, and deformity recurrence. I discussed the notion of no regrets with the patient as it pertains to complications and outcomes. The patient seemed to understand the nature of the proposed care and required convalescence. They asked appropriate questions, answered to their satisfaction. They are aware no guarantees can be made as to a satisfactory outcome and they understand there may be other possible unforeseen complications or outcomes not listed here that will be treated accordingly if they arise. There were no written or implied guarantees given to the patient. They gave informed consent to proceed. Procedure: Under mild sedation the patient was brought to the operating room and placed onto the operating table in supine position. A timeout was performed. Anesthesia was then administered by the anesthesia service. Well-padded pneumatic tourniquet applied to the right high calf. Right lower extremity was scrubbed, prepped and draped utilizing normal aseptic technique. Right foot was then exanguinated with an Esmarch bandage and tourniquet inflated to 250 mmHg. Attention was directed to the left subtalar joint where inversion and eversion was excessive indicating instability at the subtalar joint, greater than 40 degrees of inversion and 20 degrees of eversion was appreciated intraoperatively prior to incision making. Incision was planned as a sinus tarsi approach, skin incision performed with #15 blade with dissection carried down through subcutaneous tissue to the layer of joint capsule of the lateral aspect of the subtalar joint. Extensor digitorum brevis was reflected from its origin exposing the sinus tarsi, care was taken to retract and preserve neurovascular and tendinous structures. All bleeders were ligated and cauterized as necessary. Peroneal tendons were protected inferiorly. Subtalar joint was distracted and prepped for arthrodesis all cartilage was denuded, saline flush followed by subchondral drilling at the inferior portion of the talus and the superior portion of the calcaneus within the subtalar joint followed by reduction to slight valgus and temporary fixation. A total of 3 screws from inferior to superior and posterior to anterior were driven across the subtalar joint, these were not in parallel fashion due to running into existing hardware. 7 mm screw x 3 were utilized to fixate the subtalar joint, of note calcaneus and talus bone density were soft. The incision was irrigated with copious amounts of sterile saline solution. AP, oblique and lateral views confirmed placement within the calcaneus and talar body and neck to be excellent. Incision was irrigated further with saline solution and extensor digitorum br constanza was reattached to its origin with 2-0 Vicryl, deep tissues closed with 2-0 Vicryl, subcutaneous tissue with 4-0 Vicryl and skin with 4-0 nylon. Percutaneous sites in the posterior and inferior calcaneus reapproximated 4-0 nylon. Attention was directed to the dorsal medial aspect of the right talonavicular joint where incision was made medial and parallel to the extensor hallucis longus tendon through skin with #15 blade with dissection carried down to the talonavicular joint utilizing sharp and blunt technique. Care was taken to retract and preserve neurovascular and tendinous structures. All bleeders were ligated and cauterized as necessary. The talonavicular joint was distracted and denuded of all articular surface, saline flush followed by subchondral drilling with fenestrating drill bit, of note the talar head and navicular body were of poor density, bone was soft and difficult to fixate, for this reason locking screws and plates were utilized as well as a homerun screw. A cristopher bear plate was oriented at the dorsal medial aspect of the right subtalar joint and attempted reduction of the joint was performed followed by fixation utilizing 4 locking screws 2 on each side of the joint and a 4.0 mm homerun screw from distal medial to proximal lateral. Excellent placement of hardware was confirmed with AP, bleak and lateral view of intraoperative fluoroscopy. Incisi on was then irrigated with saline solution and closed in a layered fashion. Joint capsule reapproximated with 3-0 Vicryl, subcutaneous tissue with 4-0 Vicryl and skin with 4-0 nylon. The incisions were then dressed with Adaptic, sterile 4 x 4's, Kerlix and application of a well-padded short leg cast was performed with foot and ankle in neutral position. Tourniquet was deflated and a prompt hyperemic response was noted to the distal digits of the right foot. Patient tolerated the procedure and anesthesia well and was transferred to the PACU with vital signs stable and vascular status intact. Following a period of postoperative monitoring he will be discharged back to his nursing care facility in [place] where he is to remain strict nonweightbearing and immobilized with a short leg cast advised elevation at all times while resting preferably above the hip. He was given at home care instructions, pain medication and scheduled follow-up as well as my cell phone number to contact me with any postoperative questions or concerns.
== END 2023-11-21 14:52 | disposition home or self-care (01) ==
PROVIDERS: PCP Family Medicine; Visit Provider Podiatrist Foot & Ankle Surgery
PROC: (CPT 28725; principal; 2023-11-21 09:50)
PROC: (CPT 28725; 2023-11-21 09:50)
PROC: (CPT 28725; 2023-11-21 09:50)
DX: S93.04XA Dislocation of right ankle joint, initial encounter (principal); X58.XXXA Exposure to other specified factors, initial encounter; J44.9 Chronic obstructive pulmonary disease, unspecified; K21.9 Gastro-esophageal reflux disease without esophagitis; E11.9 Type 2 diabetes mellitus without complications; E78.5 Hyperlipidemia, unspecified; E66.01 Morbid (severe) obesity due to excess calories; Z68.41 Body mass index [BMI] 40.0-44.9, adult; I48.20 Chronic atrial fibrillation, unspecified; E03.9 Hypothyroidism, unspecified; Z86.718 Personal history of other venous thrombosis and embolism; I11.0 Hypertensive heart disease with heart failure; I50.9 Heart failure, unspecified; N40.1 Benign prostatic hyperplasia with lower urinary tract symptoms; N13.8 Other obstructive and reflux uropathy; I48.91 Unspecified atrial fibrillation
CPT/HCPCS: 28725; 28740; 73630; 76000; 94640; C1713; J1100; J1885; J2371; J2405; J2704; J3010; J3490; J7030; J7613

== ENCOUNTER → 2023-11-27 16:46 | Outpatient (BNVA) | payer MEDICARE, MEDICAID, SELFPAY | PROVIDERS: PCP Family Medicine; Visit Provider Podiatrist Foot & Ankle Surgery | DX: Z98.890 Other specified postprocedural states (principal); S93.04XD Dislocation of right ankle joint, subsequent encounter; Z98.1 Arthrodesis status; X58.XXXD Exposure to other specified factors, subsequent encounter | CPT/HCPCS: 29445 ==

== ENCOUNTER → 2023-12-11 15:34 | Outpatient (BNVA) | payer MEDICARE, MEDICAID, SELFPAY | PROVIDERS: PCP Family Medicine; Visit Provider Podiatrist Foot & Ankle Surgery | DX: Z98.1 Arthrodesis status (principal); Z98.890 Other specified postprocedural states; S93.04XD Dislocation of right ankle joint, subsequent encounter; X58.XXXD Exposure to other specified factors, subsequent encounter | CPT/HCPCS: 29405; 73630; 74018 ==

== ENCOUNTER → 2023-12-25 15:16 | Outpatient (BNVA) | payer MEDICARE, MEDICAID, SELFPAY | PROVIDERS: PCP Nurse Practitioner Family; Visit Provider Podiatrist Foot & Ankle Surgery | DX: Z98.890 Other specified postprocedural states (principal); S93.04XD Dislocation of right ankle joint, subsequent encounter; X58.XXXD Exposure to other specified factors, subsequent encounter; Z98.1 Arthrodesis status; L60.0 Ingrowing nail | CPT/HCPCS: 29405; 73610; 73630; 99213 ==

== ENCOUNTER 2023-12-25 16:18 | Outpatient (CLI) | payer MEDICARE, MEDICAID, SELFPAY ==
--- NOTE | 2023-12-25 16:24 | XR_ITS ---
WS: [id number] K[facility], AP view, 12/25/2023 Clinical Data: K56.7 - Ileus, unspecified Comparison: [facility]UB, 12/11/2023 Findings: No abnormal intraabdominal masses or calcifications are seen. There is no dilatated small bowel or ev idence of obstruction. There is fecal material in the rectum. There is a moderate amount of air throughout the colon. Impression: 1. Mild colonic ileus. 2. Fecal impaction.
== END 2023-12-25 16:19 | disposition home or self-care (01) ==
LOC: RAD 16:20
PROVIDERS: PCP Nurse Practitioner Family; Visit Provider Nurse Practitioner Family
DX: K56.7 Ileus, unspecified (principal); K59.04 Chronic idiopathic constipation
CPT/HCPCS: 74018

== ENCOUNTER → 2024-01-08 15:40 | Outpatient (BNVA) | payer MEDICARE, MEDICAID, SELFPAY | PROVIDERS: PCP Nurse Practitioner Family; Visit Provider Podiatrist Foot & Ankle Surgery | DX: Z98.890 Other specified postprocedural states (principal); Z98.1 Arthrodesis status | CPT/HCPCS: 29405; 73630; 99024 ==

== ENCOUNTER → 2024-01-22 15:38 | Outpatient (BNVA) | payer MEDICARE, MEDICAID, SELFPAY | PROVIDERS: PCP Nurse Practitioner Family; Visit Provider Podiatrist Foot & Ankle Surgery | DX: Z98.1 Arthrodesis status (principal); Z98.890 Other specified postprocedural states | CPT/HCPCS: 73630; 99024 ==

== ENCOUNTER → 2024-02-05 14:02 | Outpatient (BNVA) | payer MEDICARE, MEDICAID, SELFPAY | PROVIDERS: PCP Nurse Practitioner Family; Visit Provider Podiatrist Foot & Ankle Surgery | DX: Z98.890 Other specified postprocedural states (principal) | CPT/HCPCS: 29405; 73630; 99024 ==

== ENCOUNTER → 2024-03-11 13:49 | Outpatient (BNVA) | payer MEDICARE, MEDICAID, SELFPAY | PROVIDERS: PCP Nurse Practitioner Family; Visit Provider Podiatrist Foot & Ankle Surgery | DX: Z98.890 Other specified postprocedural states (principal); Z98.1 Arthrodesis status; R26.89 Other abnormalities of gait and mobility; Z91.81 History of falling; R53.81 Other malaise; M85.871 Other specified disorders of bone density and structure, right ankle and foot; M96.89 Other intraoperative and postprocedural complications and disorders of the musculoskeletal system | CPT/HCPCS: 73630; 99213 ==

== ENCOUNTER → 2024-04-01 15:34 | Outpatient (BNVA) | payer MEDICARE, MEDICAID, SELFPAY | PROVIDERS: PCP Nurse Practitioner Family; Visit Provider Podiatrist Foot & Ankle Surgery | DX: Z98.1 Arthrodesis status (principal); R26.89 Other abnormalities of gait and mobility; Z91.81 History of falling; R53.81 Other malaise; M85.871 Other specified disorders of bone density and structure, right ankle and foot; M96.89 Other intraoperative and postprocedural complications and disorders of the musculoskeletal system | CPT/HCPCS: 29405; 73630 ==

== ENCOUNTER → 2024-04-29 14:54 | Outpatient (BNVA) | payer MEDICARE, MEDICAID, SELFPAY | PROVIDERS: PCP Nurse Practitioner Family; Visit Provider Podiatrist Foot & Ankle Surgery | DX: Z98.890 Other specified postprocedural states (principal); Z98.1 Arthrodesis status; R26.89 Other abnormalities of gait and mobility; Z91.81 History of falling; R53.81 Other malaise; M85.871 Other specified disorders of bone density and structure, right ankle and foot; M96.89 Other intraoperative and postprocedural complications and disorders of the musculoskeletal system | CPT/HCPCS: 73630; 99213 ==

== ENCOUNTER → 2024-06-24 15:10 | Outpatient (BNVA) | payer MEDICARE, MEDICAID, SELFPAY | PROVIDERS: PCP Nurse Practitioner Family; Visit Provider Podiatrist Foot & Ankle Surgery | DX: Z98.890 Other specified postprocedural states (principal); Z98.1 Arthrodesis status; R26.89 Other abnormalities of gait and mobility; Z91.81 History of falling; R53.81 Other malaise; M85.871 Other specified disorders of bone density and structure, right ankle and foot; M96.89 Other intraoperative and postprocedural complications and disorders of the musculoskeletal system | CPT/HCPCS: 73630; 99213 ==

== ENCOUNTER 2024-07-01 15:14 | Outpatient (CLI) | payer MEDICARE, MEDICAID, SELFPAY ==
--- NOTE | 2024-07-01 15:15 | MRR_ITS ---
PROCEDURE INFORMATION: Exam: MR Left Upper Extremity Joint Without Contrast; Shoulder Exam date and time: 07/01/2024 4:02 PM Age: 59 years old Clinical indication: Pain; Shoulder; Left; Additional info: M25.512 - pain in left shoulder TECHNIQUE: Imaging protocol: Magnetic resonance imaging of the left upper extremity without contrast. Exam focused on the shoulder. COMPARISON: CT chest abd pel wo con 05/26/2021 10:19 AM FINDINGS: Bones/joints: Severe arthritic changes are noted with total loss of glenohumeral joint space and prominent subchondral bony sclerosis and cyst formation involving the glenoid fossa and the humeral head. Bony spurring is also noted. A small joint effusion is noted. Glenoid labrum: Unremarkable. No evidence of tear. Bursae: A small amount of fluid is noted in the subacromial bursa. Supraspinatus tendon: There is full-thickness tearing involving the distal aspect of the supraspinatus tendon. Infraspinatus tendon: Unremarkable. No evidence of tear. Subscapularis tendon: Unremarkable. No evidence of tear. Teres minor tendon: Unremarkable. No evidence of tear. Tendon of biceps brachii: Unremarkable. No evidence of tear. Glenohumeral ligaments: Unremarkable. Soft tissues: Unremarkable. MR/MR shoulder LT wo con* [id number] IMPRESSION: 1. Severe arthritic changes with joint effusion 2. Partial tearing of the supraspinatus tendon with subacromial bursitis
== END 2024-07-01 15:15 | disposition home or self-care (01) ==
LOC: RAD 15:15
PROVIDERS: PCP Nurse Practitioner Family; Visit Provider Nurse Practitioner Family
DX: M19.012 Primary osteoarthritis, left shoulder (principal); M75.122 Complete rotator cuff tear or rupture of left shoulder, not specified as traumatic
CPT/HCPCS: 73221

== ENCOUNTER 2024-07-21 10:00 | Outpatient (CLI) | payer MEDICARE, MEDICAID, SELFPAY ==
--- NOTE | 2024-07-21 10:00 | US_ITS ---
WS: [id number] Complete ABDOMINAL ULTRASOUND HISTORY: Z87.898 - Personal history of other specified conditions COMPARISON: 10/25/2021 Liver: 18.1 cm in length. Liver is echogenic and heterogeneous with marked nodularity of the surface. No mass identified but the liver is poorly visualized in its entirety. Portal Vein: Normal hepatopetal flow with monophasic waveform. Gallbladder: Normally distended gallbladder with no stones or wall thickening. CBD: 0.5 cm Pancreas: Obscured by bowel gas. Right kidney: 9.4 cm x 6.2 x 5.8 cm. Cortex:1.0 cm. Poorly visualized kidney. No hydronephrosis. Mass would be difficult to exclude. Left kidney: 9.1 cm x 5.8 cm x 5.9 cm. Cortex: 1.0 cm. Poorly visualized kidney. No hydronephrosis. Mass would be difficult to exclude. Spleen: 15.6 cm. Enlarged. Aorta and IVC: Poorly visualized. US/US abdomen complete* [id number] Impression: 1. Very limited abdominal ultrasound due to body habitus. 2. Advanced hepatic cirrhosis with portal hypertension. 3. Spleen is enlarged. 4. Negative gallbladder.
== END 2024-07-21 10:17 | disposition home or self-care (01) ==
PROVIDERS: PCP Nurse Practitioner Family; Visit Provider Nurse Practitioner Family
DX: K74.60 Unspecified cirrhosis of liver (principal); K76.6 Portal hypertension; Z87.898 Personal history of other specified conditions; R16.1 Splenomegaly, not elsewhere classified
CPT/HCPCS: 76700

== ENCOUNTER → 2024-08-17 10:20 | Outpatient (BNVA) | payer MEDICARE, MEDICAID, SELFPAY | PROVIDERS: PCP Nurse Practitioner Family; Visit Provider Student in an Organized Health Care Education/Training Program | DX: M19.012 Primary osteoarthritis, left shoulder | CPT/HCPCS: 73030; 99204 ==

== ENCOUNTER 2024-09-18 21:24 | Emergency (ER) | payer MEDICARE, MEDICAID, SELFPAY ==
[2024-09-18 21:25] VITALS: BP 152/63; PULSE 115; RESP 15; TEMP 37.1; O2SAT 99; BMI 52.7
[2024-09-18 22:43] VITALS: BP 135/74; PULSE 110; RESP 18; O2SAT 94
[2024-09-18 22:55] LABS: Basophils # 0.1 10^3/uL (0.0-0.1); Basophils % 0.4 %; Eosinophils # 0.2 10^3/uL (0.0-0.8); Eosinophils % 0.7 %; Hematocrit 33.6 % (37-53); Lymphocytes # 0.3 10^3/uL (0.8-4.8); Lymphocytes % 1.2 %; Mean Corpuscular HGB Conc 32.4 g/dL (30-55); Mean Corpuscular Volume 104.7 fl (82-101); Mean Platelet Volume 9.8 fL (7.4-10.4); Monocytes # 1.1 10^3/uL (0.2-0.9); Monocytes % 4.9 %; Neutrophils % 92.3 %; Nucleated Red Blood Cells % 0 %; Platelet Count 169 10^3/cmm (157-399); Red Blood Count 3.21 10^6/uL (3.85-5.65); Red Cell Distribution Width 14.9 % (12.1-15.1); White Blood Count 22.06 10^3/uL (3.29-11.43)
[2024-09-18 23:01] LABS: Bacteria Urine None Seen /hpf; Hyaline Casts Urine 1.65 /lpf; RBC Urine 0-2 /hpf (0-2); Squamous Epithelial Cell Urine 0-5 /hpf (0-5); WBC Urine 0-5 /hpf (0-5)
--- NOTE | 2024-09-18 23:01 | CTR_ITS ---
PROCEDURE INFORMATION: Exam: CT Abdomen And Pelvis Without Contrast Exam date and time: 09/18/2024 11:13 PM Age: 59 years old Clinical indication: Pain and abnormal findings; Abnormal lab test; Abnormal kidney function lab tests and elevated wbc; Abdominal pain; Prior surgery; Surgery date: 6+ months; Surgery type: Hernia repair; Patient HX: Suprapubic pain with urinary retention. Leukocytosis and zarina. ; Additional info: Suprapubic pain, urinary outlet obstruction TECHNIQUE: Imaging protocol: Computed tomography of the abdomen and pelvis without contrast. Radiation optimization: All CT scans at this facility use at least one of these dose optimization techniques: automated exposure control; mA and/or kV adjustment per patient size (includes targeted exams where dose is matched to clinical indication); or iterative reconstruction. COMPARISON: CT abdomen pelvis wo con [id number] 04/24/2023 16:33 RADIATION DOSE METRICS: Total DLP (mGy-cm): 1577.23 FINDINGS: Lungs: The visualized lung negrete show mild bibasilar atelectasis. Liver: Shrunken, macronodular liver, consistent with cirrhosis. Gallbladder and biliary ducts: No calcified gallstones. No ductal dilation. Pancreas: Normal size and homogeneous density. No ductal dilation. Spleen: There is splenomegaly. Adrenal glands: Normal. No mass. Kidneys and ureters: There is no hydronephrosis. No renal or obstructive ureteral calculi are identified. Stomach and bowel: There are no abnormally dilated loops of bowel. There is moderate fecal burden, worst in the rectosigmoid, consistent with constipation. There is thickening of the sigmoid wall as seen in stercoral proctocolitis. Appendix: No evidence of appendicitis. Intraperitoneal space: There is trace ascites. Vasculature: There is portal hypertension with paraesophageal varices (axial series 4, images 19 - 34; coronal series 6, images 88-121). Lymph nodes: No enlarged retroperitoneal or mesenteric lymph nodes. Urinary bladder: The bladder is decompressed by Weir catheter.There is prominent bladder wall thickening. Reproductive: Unremarkable as visualized. Bones/joints: Multilevel degenerative disc disease without significant central spinal canal stenosis. There are multilevel facet arthrosis and posterior hypertrophic bony changes with corresponding neural foraminal narrowing.Grade 1 retrolisthesis of L2 without associated fracture, presumed to be degenerative in etiology. Soft tissues: A 2.3 cm calcified nodule adjacent to the medial wall of the sigmoid, suggestive of old fat necrosis. CT/CT kidney stone [id number] IMPRESSION: 1. Bladder wall thickening suggesting cystitis, incomplete distention or chronic outflow obstruction. A Weir catheter is seen in place. 2. Moderate fecal burden, worst in the rectosigmoid with probable stercoral proctocolitis. 3. Findings consistent with cirrhosis of the liver with portal hypertension and prominent lower esophageal varices.
--- NOTE | 2024-09-18 23:01 | XRR_ITS ---
PROCEDURE INFORMATION: Exam: XR Chest Exam date and time: 09/18/2024 11:03 PM Age: 59 years old Clinical indication: Shortness of breath; Patient HX: SOB; Fluid retention TECHNIQUE: Imaging protocol: Radiologic exam of the chest. Views: 1 view. COMPARISON: CR XR chest 2V* [id number] 01/15/2024 16:59 FINDINGS: Lungs: There is no evidence of focal pulmonary consolidation. Normal pulmonary vascularity. Pleural spaces: No pleural effusion or pneumothorax. Heart/Mediastinum: Borderline heart size. Bones/joints: No acute fracture is identified. XR/XR chest 1V portable [id number] IMPRESSION: 1. Borderline heart size. 2. No acute cardiopulmonary findings.
[2024-09-18 23:07] LABS: Alanine Aminotransferase 28 U/L (0-41); Albumin Level 3.5 g/dL (3.5-5.2); Alkaline Phosphatase 155 U/L (40-130); Anion Gap 22.6 (5-19); Aspartate Amino Transferase 36 U/L (0-40); Bilirubin Urine Negative (Negative); Blood Urea Nitrogen 22 mg/dL (8-23); Blood Urine Negative (Negative); Calcium 8.6 mg/dL (8.5-10.5); Carbon Dioxide 29 mmol/L (22-29); Chloride 94 mmol/L (98-107); Creatinine Clr Calc Pharmacy 89.2702; Globulin 3.2 g/dL (1.3-4.6); Glomerular Filtration Rate 47.7 mL/min (90-130); Glucose 114 mg/dL (65-115); Glucose Urine UA Negative (Normal); Ketones Urine Negative (Negative); Leukocyte Esterase Urine Negative (Negative); Nitrate Urine Negative (Negative); Osmolality Calculated 296 mOsm/kg (285-295); Potassium 4.6 mmol/L (3.5-5.1); Protein Urine Negative (Negative); Sodium 141 mmol/L (136-145); Specific Gravity, Urine 1.012 (1.005-1.030); Total Protein 6.7 g/dL (6.6-8.7); Urine Appearance Clear (CLEAR); Urine Color Yellow (Yellow); pH Urine 6.5 (5-7)
[2024-09-18 23:29] LABS: Magnesium 1.9 mg/dL (1.7-2.3); NT Pro B Type Natriuretic Pept 430 pg/mL (0-125)
--- NOTE | 2024-09-18 23:43 | ED_ITS ---
HPI - General Adult 2 General: Chief complaint: General Medical Stated complaint: fluid retention Time Seen by Provider: 09/18/24 21:42 History of Present Illness: 59-year-old male patient presenting from [facility] environment. He has chronic edema, especially of his lower extremities and scrotum. He states that he has had a significant weight gain fluid oliveira over the past few days. He has redness and irritation to his scrotum and lower belly wall. He has some generalized pelvic discomfort, and some shortness of breath. No fever. Related Data Home Medications Medication Instructions Recorded Confirmed vitamin B complex (Vitamins B 1 tab PO DAILY@01/04/20 09/16/24 Complex tablet) folic acid 1 mg tablet 1 mg PO DAILY@08/23/20 09/16/24 fluticasone propionate 50 2 spray intranasal DAILY@09/08/20 09/16/24 mcg/actuation nasal spray,suspension (Flonase Allergy Relief) albuterol sulfate 90 mcg/actuation 1 puff inhalation Q4H PRN 12/11/20 09/16/24 aerosol inhaler shortness of breath/wheezing vitamins A,C,[id number] 4,296 1 cap PO DAILY@02/11/21 09/16/24 mcg-226 mg-90 mg capsule (PreserVision AREDS) diltiazem HCl 120 mg 120 mg PO DAILY@04/24/21 09/16/24 capsule,extended release 24 hr (Cardizem CD) cetirizine 10 mg tablet (Zyrtec) 10 mg PO DAILY@05/24/21 09/16/24 levothyroxine 50 mcg tablet 50 mcg PO DAILY@08/15/21 09/16/24 midodrine 5 mg tablet 5 mg PO TID 09/01/21 09/16/24 pantoprazole 40 mg tablet,delayed 40 mg PO DAILY@09/01/21 09/16/24 release potassium chloride 20 mEq 20 meq PO BID@09/01/21 09/16/24 tablet,extended release gabapentin 100 mg capsule 100 mg PO TID 10/20/21 09/16/24 thiamine HCl (vitamin B1) 50 mg 50 mg PO DAILY@11/29/21 09/16/24 tablet ferrous sulfate 325 mg (65 mg 325 mg PO DAILY 12/24/21 09/16/24 iron) tablet (iron) levetiracetam 500 mg tablet 1,000 mg PO BID 12/24/21 09/16/24 alfuzosin 10 mg tablet,extended 10 mg PO DAILY@11/04/22 09/16/24 release 24 hr spironolactone 50 mg tablet 50 mg PO DAILY@11/04/22 09/16/24 acetaminophen 325 mg tablet 325 - 650 mg PO Q4H PRN Pain 04/19/23 09/16/24 (Tylenol) sodium phosphates 19 gram-7 118 ml HI DAILY PRN Constipation 04/19/23 09/16/24 gram/118 mL enema (Fleet Enema) rifaximin 550 mg tablet (Xifaxan) 550 mg PO BID 06/23/23 09/16/24 furosemide 40 mg tablet 40 mg PO QAM 09/16/24 09/16/24 Previous Rx's Medication Instructions Recorded lactulose 20 gram/30 mL oral 30 ml PO DAILY #1,200 mL 04/19/23 solution CAM BOOT #1 ea 05/08/23 Wheel chair with elevated foot #1 ea 06/19/23 rests and seat cushion levothyroxine 13 mcg capsule 13 mcg PO DAILY #30 caps 06/27/23 ascorbic acid (vitamin C) 1,000 mg 1,000 mg PO Q12H 30 days #60 tabs 11/27/23 tablet,extended release cholecalciferol (vitamin D3) 25 25 mcg PO DAILY 30 days #30 caps 11/27/23 mcg (1,000 unit) capsule calcium carbonate 500 mg PO DAILY 30 days #60 tabs 12/02/23 cyclobenzaprine 10 mg tablet 10 mg PO Q8H PRN muscle spasm 30 01/08/24 days #90 [address] [employer] #1 ea 03/11/24 tramadol 50 mg tablet 50 mg PO BID PRN pain #60 tabs 08/04/24 levofloxacin 500 mg tablet 500 mg PO DAILY 7 days #7 tabs 09/19/24 magnesium citrate 296 ml PO DAILY #296 mL 09/19/24 Allergies Allergy/AdvReac Type Severity Reaction Status Date / Time Penicillins Allergy Severe ALGY-Difficulty Verified 08/17/24 10:30 Breathing Sulfa (Sulfonamide Allergy Severe ALGY-Swell Verified 08/17/24 10:30 Antibiotics) Lip/Tongue/Throat [facility] ED 2 PFS: Medical History Physical deconditioning Unspecified atrial flutter Alcoholic polyneuropathy Advanced chronic obstructive pulmonary disease Hepatic failure, unspecified without coma Chronic atrial fibrillation, unspecified Hypothyroidism Urinary tract infection BMI 50.0-59.9, adult Acute hepatic encephalopathy Hypertension COPD (chronic obstructive pulmonary disease) History of peritonitis Morbid obesity Contraindication to deep vein thrombosis (DVT) prophylaxis Splenomegaly Portal hypertension Chronic kidney disease Esophageal varices PVD (peripheral vascular disease) Seizure Stereotyped movements Anasarca CHF (congestive heart failure) Echocardiogram done in 2019 shows an EF of 40 to 45% with hypokinetic septum, anteroseptum and inferior wall, biatrial enlargement Encephalopathy, hepatic Upper gastrointestinal hemorrhage due to gastritis EGD with pyloric ulcer in 05/2021 Occult blood in stools Peritoneal dialysis catheter in situ Removed in 05/2021 due to recurrent bacterial peritonitis Anemia Alcoholic cirrhosis of liver with ascites Hepatorenal syndrome BPH loc w urin obs/LUTS C. difficile diarrhea Chronic hyponatremia varies with volume status Pleural effusion associated with hepatic disorder Pneumonia Fracture of fourth metatarsal bone of left foot Fracture of third metatarsal bone of left foot Fracture of second metatarsal bone of left foot Non-pressure chronic ulcer of other part of left foot limited to breakdown of skin Charcot's joint of left foot Atrial fibrillation and flutter Ataxia Hx of esophageal varices Charcot's arthropathy left foot Neuropathy PVD (peripheral vascular disease) End-stage liver disease not a candidate for transplant or tips at last evaluation Erectile dysfunction Peyronie disease Surgical History Status post surgery (07/05/20) peritoneal catheter for ascites History of tonsillectomy H/O colonoscopy H/O esophagogastroduodenoscopy History of abdominal paracentesis Hx of umbilical hernia repair Hx of vasectomy Family History Grandfather CAD (coronary artery disease) Grandmother CAD (coronary artery disease) Cancer Father Cancer Denies family history of Anesthesia complication Bleeding disorder Social History Smoking and tobacco/nicotine status: current every day tobacco/nicotine user Substance/Drug Use: never Housing: Half-Way Marital status: Current occupational status: disabled Do you think of yourself as: Straight/Heterosexual Current gender identity: Male Physical Exam 2 Const: COMMON NORMALS: no acute distress GENERAL APPEARANCE: cooperative and Edematous; not ill appearing NUTRITIONAL APPEARANCE: obese ORIENTATION/CONSCIOUSNESS: Yes awake, Yes oriented to person, Yes oriented to place and Yes oriented to time HENMT: COMMON NORMALS: normocephalic, atraumatic and Normal external nose present HEAD & SCALP: normocephalic and atraumatic FACE & SINUS: face symmetric NOSE: Normal external nose present Eye: COMMON NORMALS: Equal, round and reactive pupils present PUPIL: Yes Equal, round and reactive pupils present Neck/C-Spine: GENERAL: Yes trachea midline Resp: COMMON NORMALS: normal respiratory effort, No use of accessory muscles and clear to auscultation bilaterally AUSCULTATION: clear to auscultation bilaterally and diminished lung sounds Cardio: COMMON NORMALS: regular rhythm RATE: tachycardic (Mild) RHYTHM: regular rhythm GI: COMMON NORMALS: Soft to palpation and non-tender INSPECTION: Yes Abdominal wall edema and Yes Abdominal panniculus present PALPATION: Yes Soft to palpation OTHER: Pelvic wall cellulitis present. : OTHER: Scrotal swelling with some redness present. Extremity: NARRATIVE EXTREMITY EXAM: Grossly edematous, wrapped lower extremities. Evidence of chronic venous stasis dermatitis with wounds. Neuro: SENSORIUM/ORIENTATION: Yes oriented to person, Yes oriented to place and Yes oriented to time Course 2 Vital Signs: Vital signs: Vital Signs Temperature 98.8 F 09/18/24 21:25 Pulse Rate 101 H 09/19/24 06:22 Respiratory Rate 19 H 09/19/24 06:22 Blood Pressure 120/70 09/19/24 06:22 Pulse Oximetry 91 09/19/24 06:22 Oxygen Delivery Me thod Room Air 09/19/24 06:22 [facility] - General Adult Medical Decision Making This patient is grossly edematous. He does have some scrotal swelling as well. He has a mild cellulitis around his scrotum with no definite abscess. His white blood cell count is elevated at 22. His hemoglobin is 11. His creatinine is 1.5. Weir was placed on his arrival, with immediate output of greater than [address] scan, he has bladder wall thickening suggestive of outflow obstruction. His urinalysis is negative for infection or hematuria. His chest x-ray shows no acute findings. He is given 80 mg of IV Lasix. His saturations remained above 90% on room air. He has findings consistent with stercoral colitis and constipation on CT as well. He will be covered with Levaquin for this and his cellulitis, as he is penicillin allergic. Weir will remain in place as he obviously has an outflow obstruction. [facility] and with Weir catheter placement after being given Lasix here. To return for any worsening symptoms. Lab Data 09/18/24 22:34 09/18/24 22:34 Radiology Impressions Abdomen/Pelvis CT 09/18/24 23:01 IMPRESSION: 1. Bladder wall thickening suggesting cystitis, incomplete distention or chronic outflow obstruction. A Weir catheter is seen in place. 2. Moderate fecal burden, worst in the rectosigmoid with probable stercoral proctocolitis. 3. Findings consistent with cirrhosis of the liver with portal hypertension and prominent lower esophageal varices. Chest X-Ray 09/18/24 23:01 IMPRESSION: 1. Borderline heart size. 2. No acute cardiopulmonary findings. Laboratory Results WBC 22.06 10^3/uL (3.29-11.43) H 09/18/24 22:34 RBC 3.21 10^6/uL (3.85-5.65) L 09/18/24 22:34 Hgb 10.90 g/dL (11.27-16.99) L 09/18/24 22:34 Hct 33.6 % (37-53) L 09/18/24 22:34 MCV 104.7 fl (82-101) H 09/18/24 22:34 MCH 34.0 pg (27-33) H 09/18/24 22:34 MCHC 32.4 g/dL (30-55) 09/18/24 22:34 RDW 14.9 % (12.1-15.1) 09/18/24 22:34 Plt Count 169 10^3/cmm (157-399) 09/18/24 22:34 MPV 9.8 fL (7.4-10.4) 09/18/24 22:34 Neut % (Auto) 92.3 % 09/18/24 22:34 Lymph % (Auto) 1.2 % 09/18/24 22:34 [place] % (Auto) 4.9 % 09/18/24 22:34 Eos % (Auto) 0.7 % 09/18/24 22:34 Baso % (Auto) 0.4 % 09/18/24 22:34 Neut # (Auto) 20.40 10^3/uL (1.8-7.7) H 09/18/24 22:34 Lymph # (Auto) 0.3 10^3/uL (0.8-4.8) L 09/18/24 22:34 [place] # (Auto) 1.1 10^3/uL (0.2-0.9) H 09/18/24 22:34 Eos # (Auto) 0.2 10^3/uL (0.0-0.8) 09/18/24 22:34 Baso # (Auto) 0.1 10^3/uL (0.0-0.1) 09/18/24 22:34 Nucleated RBC % (auto) 0 % 09/18/24: Nucleated RBCs # 0.0 /100WBC 09/18/24 22:34 Sodium 141 mmol/L (136-145) 09/18/24 22:34 Potassium 4.6 mmol/L (3.5-5.1) 09/18/24 22:34 Chloride 94 mmol/L (98-107) L 09/18/24 22:34 Carbon Dioxide 29 mmol/L (22-29) 09/18/24 22:34 Anion Gap 22.6 (5-19) H 09/18/24 22:34 BUN 22 mg/dL (8-23) 09/18/24 22:34 Creatinine 1.5 mg/dL (0.7-1.2) H 09/18/24 22:34 GFR Calculation 47.7 mL/min (90-130) L 09/18/24 22:34 Glucose 114 mg/dL (65-115) 09/18/24 22:34 Calculated Osmolality 296 mOsm/kg (285-295) H 09/18/24 22:34 Calcium 8.6 mg/dL (8.5-10.5) 09/18/24 22:34 Magnesium 1.9 mg/dL (1.7-2.3) 09/18/24 22:34 Total Bilirubin 1.0 mg/dL (0.15-1.2) 09/18/24 22:34 AST 36 U/L (0-40) 09/18/24 22:34 ALT 28 U/L (0-41) 09/18/24 22:34 Alkaline Phosphatase 155 U/L (40-130) H 09/18/24 22: NT-Pro-B Natriuret Pep 430 pg/mL (0-125) H 09/18/24 22:34 Total Protein 6.7 g/dL (6.6-8.7) 09/18/24 22: Albumin 3.5 g/dL (3.5-5.2) 09/18/24 22: Globulin 3.2 g/dL (1.3-4.6) 09/18/24 22:34 Urine Color Yellow (Yellow) 09/18/24: Urine Appearance Clear (CLEAR) 09/18/24 22: Urine pH 6.5 (5-7) 09/18/24:34 Ur Specific [place] 1.012 (1.005-1.030) 09/18/24:34 Urine Protein Negative (Negative) 09/18/24 22: Urine Glucose (UA) Negative (Normal) 09/18/24 22: Urine Ketones Negative (Negative) 09/18/24 22:34 Urine Blood Negative (Negative) 09/18/24 22:34 Urine Nitrate Negative (Negative) 09/18/24: Urine Bilirubin Negative (Negative) 09/18/24 22:34 Urine Urobilinogen 1.0 mg/dL (Negative) 09/18/24 22:34 Ur Leukocyte Esterase Negative (Negative) 09/18/24 22:34 Urine RBC 0-2 /hpf (0-2) 09/18/24 22:34 Urine WBC 0-5 /hpf (0-5) 09/18/24 22:34 Ur Squamous Epith Cells 0-5 /hpf (0-5) 09/18/24 22:34 Amorphous Sediment Not Reportable 09/18/24 22:34 Urine Bacteria None seen /hpf (NONE) 09/18/24 22: Hyaline Casts 1.65 /lpf 09/18/24 22:34 All radiology interpretation(s) finalized by discharge Discharge Plan Discharge Patient Disposition: Home Clinical Impression: Acute on chronic urinary retention, Generalized edema due to fluid overload, Stercoral colitis Cellulitis Qualifiers: Site of cellulitis of trunk: perineum Constipation Qualifiers: Constipation type: chronic idiopathic constipation Qualified Code(s): K59.04 - Chronic idiopathic constipation Condition: Stable Prescriptions: New levofloxacin 500 mg tablet 500 mg PO DAILY 7 Days Qty: 7 0RF magnesium citrate Solution 296 ml PO DAILY Qty: 296 0RF No Action vitamin B complex [Vitamins B Complex] Tablet 1 tab PO DAILY@07 diltiazem HCl [Cardizem CD] 120 mg capsule,extended release 24hr 120 mg PO DAILY@07 levothyroxine 50 mcg tablet 50 mcg PO DAILY@06 thiamine HCl (vitamin B1) 50 mg tablet 50 mg PO DAILY@07 (DME) CAM BOOT See Rx Instructions .Route .MEDSUPPLY Qty: 1 0RF Rx Instructions: As directed (DME) Wheel chair with elevated foot rests and seat cushion See Rx Instructions .Route .MEDSUPPLY Qty: 1 0RF Rx Instructions: As directed by HOME ascorbic acid (vitamin C) 1,000 mg tablet extended release 1,000 mg PO Q12H 30 Days Qty: 60 2RF cholecalciferol (vitamin D3) 25 mcg (1,000 unit) capsule 25 mcg PO DAILY 30 Days Qty: 30 2RF cyclobenzaprine 10 mg tablet 10 mg PO Q8H PRN (Reason: muscle spasm) 30 Days Qty: 90 0RF calcium carbonate 500 mg calcium (1,250 mg) tablet 500 mg PO DAILY 30 Days Qty: 60 2RF (DME) [employer] See Rx Instructions .Route .MEDSUPPLY Qty: 1 0RF Rx Instructions: As directed The Lesa Davila tramadol 50 mg tablet 50 mg PO BID PRN (Reason: pain) Qty: 60 5RF folic acid 1 mg tablet 1 mg PO DAILY@07 fluticasone propionate [Flonase Allergy Relief] 50 mcg/actuation spray,suspension 2 spray intranasal DAILY@07 albuterol sulfate 90 mcg/actuation HFA aerosol inhaler 1 puff INHALATION Q4H PRN (Reason: shortness of breath/wheezing) PreserVision AREDS 14,320-226-200 [id number] Capsule 1 cap PO DAILY@07 cetirizine [Zyrtec] 10 mg Tablet 10 mg PO DAILY@07 midodrine 5 mg tablet 5 mg PO TID pantoprazole 40 mg tablet,delayed release (DR/EC) 40 mg PO DAILY@07 potassium chloride 20 mEq Tablet Extended Release 20 meq PO BID@07,19 Hold Instructions: Resume on 12/30/21. gabapentin 100 mg Capsule 100 mg PO TID levetiracetam 500 mg tablet 1,000 mg PO BID ferrous sulfate [iron] 325 mg (65 mg iron) Tablet 325 mg PO DAILY furosemide 40 mg tablet 40 mg PO QAM Rx Instructions: Advised to increase to 60mg qam for 5 days starting 09/08/24, then resume 40mg daily. spironolactone 50 mg tablet 50 mg PO DAILY@07 alfuzosin 10 mg tablet extended release 24 hr 10 mg PO DAILY@07 Rx Instructions: administer after the same meal each day acetaminophen [Tylenol] 325 mg Tablet 325 - 650 mg PO Q4H PRN (Reason: Pain) Fleet Enema 19-7 gram/118 mL Enema 118 ml HI DAILY PRN (Reason: Constipation) Rx Instructions: IF NO BM FOR 5 DAYS lactulose 20 gram/30 mL Solution 30 ml PO DAILY Qty: 1200 0RF Xifaxan 550 mg tablet 550 mg PO BID Rx Instructions: rx filled 06/19/23 levothyroxine 13 mcg capsule 13 mcg PO DAILY Qty: 30 0RF Rx Instructions: Together with 50mcg for total 63 mcg daily Discharge Orders: Discharge ED (Routine); Ordered 09/19/24 Ordered By: Reji Dupont Referrals: Clarissa Ramirez NP [Primary Care Provider] - 1-3 days Patient Instructions: Constipation (ED), Urinary Retention in Men (ED), Cellulitis (ED), Opioid Safety, Pain Management Activity Restrictions/Additional Instructions: Medications as directed. Increase lactulose to 3 times daily dosing until stools are soft and frequent. Then you may reduce to twice daily. Weir can come out in 7 days. Urology referral as an outpatient can be considered. Return for fever, vomiting, worsening swelling despite treatment, worsening trouble breathing, any other concerning symptoms. 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
[2024-09-19 00:56] VITALS: BP 133/79; PULSE 105; RESP 14; O2SAT 91
[2024-09-19] MEDS: FUROsemide 10 mg/mL SDV 10mL 80 MG IVP (01:41)
[2024-09-19 02:53] VITALS: BP 118/67; PULSE 117; RESP 13; O2SAT 91
[2024-09-19 03:54] VITALS: BP 98/57; PULSE 107; RESP 19; O2SAT 91
[2024-09-19 05:20] VITALS: BP 120/60; PULSE 100; RESP 20; O2SAT 90
[2024-09-19 06:22] VITALS: BP 120/70; PULSE 101; RESP 19; O2SAT 91
== END 2024-09-19 10:24 | disposition home or self-care (01) ==
PROVIDERS: Emergency Provider Emergency Medicine; PCP Nurse Practitioner Family
DX: R33.9 Retention of urine, unspecified (principal); R60.0 Localized edema; K52.89 Other specified noninfective gastroenteritis and colitis; L03.315 Cellulitis of perineum; K59.04 Chronic idiopathic constipation; Z72.0 Tobacco use; J44.9 Chronic obstructive pulmonary disease, unspecified; I13.0 Hypertensive heart and chronic kidney disease with heart failure and stage 1 through stage 4 chronic kidney disease, or unspecified chronic kidney disease; N18.9 Chronic kidney disease, unspecified; I50.9 Heart failure, unspecified
CPT/HCPCS: 51702; 71045; 74176; 80053; 81001; 83735; 83880; 85025; 96374; 99285; J1940

== ENCOUNTER → 2024-10-07 14:56 | Outpatient (BNVA) | payer MEDICARE, MEDICAID, SELFPAY | PROVIDERS: PCP Nurse Practitioner Family; Visit Provider Podiatrist Foot & Ankle Surgery | DX: Z98.1 Arthrodesis status (principal); R26.89 Other abnormalities of gait and mobility; Z91.81 History of falling; R53.81 Other malaise; M85.871 Other specified disorders of bone density and structure, right ankle and foot; M96.89 Other intraoperative and postprocedural complications and disorders of the musculoskeletal system; Z98.890 Other specified postprocedural states | CPT/HCPCS: 73630 ==

== ENCOUNTER 2024-10-07 15:26 | Emergency (ER) | payer MEDICARE, MEDICAID, SELFPAY ==
--- NOTE | 2024-10-07 15:28 | CT_ITS ---
WS: [id number] CT HEAD NONCONTRAST HISTORY: Symptoms of acute stroke TECHNIQUE: Contiguous axial imaging performed through the brain. Bone and soft tissue windows. Sagitt al and coronal reformats reviewed. All CT scans at [facility] use at least one of these dose optimization techniques: automated exposure control; mA and/or kV adjustment per patient size (includ es targeted exams where dose is matched to clinical indication); or iterative reconstruction. DLP: 2324.18 mGy COMPARISON: 11/04/2022 No acute intracranial hemorrhage, midline shift or mass effect. Moderate symmetric atrophy and mild small vessel disease. Ventricles: Normal size with no hydrocephalus. No inferior displacement of the cerebellar tonsils. Paranasal sinuses: As visualized are clear. Mastoid air cells: Well pneumatized. Calvarium and scalp: Skull is intact with no soft tissue edema or swelling. CT/CT head thrombolytic 49304 IMPRESSION: 1. No acute intracranial hemorrhage or edema. 2. Moderate atrophy with mild small vessel disease. Notified Melanie Aldana MD at 10/07/2024 3:48 PM.
[2024-10-07 15:39] VITALS: BP 116/53; PULSE 68; RESP 16; TEMP 36.7; O2SAT 100; BMI 47.6
--- NOTE | 2024-10-07 15:39 | ECG_ITS ---
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 Measurements Intervals [place] Rate: 63 P: 0 MT: 0 QRS: 101 QRSD: 98 T: 70 QT: 425 QTc: 436 Interpretive Statements ATRIAL FIBRILLATION RIGHT AXIS DEVIATION [QRS AXIS > 100] LOW QRS VOLTAGE IN PRECORDIAL LEADS [QRS DEFLECTION < 1.0 mV IN CHEST LEADS] SEPTAL MYOCARDIAL INFARCTION , OF INDETERMINATE AGE [40+ ms Q WAVE IN V1/V2] Compared to ECG 06/22/2023 15:44:12 Right-axis deviation now present Low QRS voltage now present Incomplete right bundle-branch block no longer present Atrial abnormality no longer present Myocardial infarct finding still present Electronically Signed On 10-08-2024 09:00:01 BOTTOM BLEACHER by Compa Escamilla M.D. [email or web address]
[2024-10-07 15:44] LABS: Glucose Point of Care 119 mg/dL (70-110)
--- NOTE | 2024-10-07 15:44 | W.ED.NEUROSD ---
HPI - Neuro Symptoms/Deficit General: Chief Complaint: Neuro Symptoms/Deficit Stated Complaint: stroke alert Time Seen by Provider: 10/07/24 15:27 Source: patient Mode of arrival: ambulatory Limitations: no limitations History of Present Illness: Yosvany is a 59-year-old male presenting as a code stroke from podiatry clinic. He was talking and acting normally until around 15:15 he began slurring his words and acting sleepy, he was difficult to arouse. Patient reports that when this happened he was in a significant amount of pain following debridement of his right foot, and began feeling nauseous and lightheaded. Following the CT scan, patient was conversational and able to speak in full sentences describing the event. He has not had any recent illnesses, but endorses significant chronic pain mostly secondary to his chronic leg wounds. Patient is now back to his baseline with no focal deficits Related Data Home Medications Medication Instructions Recorded Confirmed vitamin B complex (Vitamins B 1 tab PO DAILY@01/04/20 10/07/24 Complex tablet) folic acid 1 mg tablet 1 mg PO DAILY@08/23/20 10/07/24 fluticasone propionate 50 2 spray intranasal DAILY@09/08/20 10/07/24 mcg/actuation nasal spray,suspension (Flonase Allergy Relief) albuterol sulfate 90 mcg/actuation 1 puff inhalation Q4H PRN 12/11/20 10/07/24 aerosol inhaler shortness of breath/wheezing diltiazem HCl 120 mg 120 mg PO DAILY@04/24/21 10/07/24 capsule,extended release 24 hr (Cardizem CD) cetirizine 10 mg tablet (Zyrtec) 10 mg PO DAILY@05/24/21 10/07/24 levothyroxine 50 mcg tablet 50 mcg PO DAILY@08/15/21 10/07/24 midodrine 5 mg tablet 5 mg PO TID 09/01/21 10/07/24 potassium chloride 20 mEq 20 meq PO BID@09/01/21 10/07/24 tablet,extended release gabapentin 100 mg capsule 100 mg PO TID 10/20/21 10/07/24 thiamine HCl (vitamin B1) 50 mg 50 mg PO DAILY@11/29/21 10/07/24 tablet ferrous sulfate 325 mg (65 mg 325 mg PO DAILY 12/24/21 10/07/24 iron) tablet (iron) levetiracetam 500 mg tablet 1,000 mg PO BID 12/24/21 10/07/24 alfuzosin 10 mg tablet,extended 10 mg PO DAILY@11/04/22 10/07/24 release 24 hr spironolactone 50 mg tablet 50 mg PO DAILY@11/04/22 10/07/24 acetaminophen 325 mg tablet 325 - 650 mg PO Q4H PRN Pain 04/19/23 10/07/24 (Tylenol) aluminum-mag hydroxide-simethicone 5 ml PO QID PRN 10/05/24 10/07/24 400 mg-400 mg-40 mg/5 mL oral susp (Mylanta Maximum Strength) apixaban 5 mg tablet (Eliquis) 5 mg PO BID 10/05/24 10/07/24 aspirin 81 mg tablet,delayed 81 mg PO DAILY 10/05/24 10/07/24 release bisacodyl 5 mg tablet,delayed 5 mg PO DAILY 10/05/24 10/07/24 release bumetanide 1 mg tablet 1 mg PO DAILY 10/05/24 10/07/24 cephalexin 500 mg capsule 500 mg PO BID 10/05/24 10/07/24 docusate sodium 100 mg capsule 100 mg PO DAILY 10/05/24 10/07/24 doxycycline hyclate 100 mg capsule 100 mg PO BID 10/05/24 10/07/24 fluticasone propionate 50 1 spray intranasal BID 10/05/24 10/07/24 mcg/actuation nasal spray,suspension phenylephrine 0.25 %-mineral oil 1 applic RI DAILY 10/05/24 10/07/24 14 %-petrolatm 74.9 % rectal ointment (Preparation H) polyethylene glycol 3350 17 4 g PO DAILY 10/05/24 10/07/24 gram/dose oral powder Previous Rx's Medication Instructions Recorded lactulose 20 gram/30 mL oral 30 ml PO DAILY #1,200 mL 04/19/23 solution CAM BOOT #1 ea 05/08/23 Wheel chair with elevated foot #1 ea 06/19/23 rests and seat cushion ascorbic acid (vitamin C) 1,000 mg 1,000 mg PO Q12H 30 days #60 tabs 03/14/24 tablet,extended release cholecalciferol (vitamin D3) 25 25 mcg PO DAILY 30 days #30 caps 11/27/23 mcg (1,000 unit) capsule calcium carbonate 500 mg PO DAILY 30 days #60 tabs 12/02/23 [place] Boot for the Right Foot #1 ea 03/11/24 tramadol 50 mg tablet 50 mg PO BID PRN pain #60 tabs 08/04/24 magnesium citrate 296 ml PO DAILY #296 mL 09/19/24 Allergies Allergy/AdvReac Type Severity Reaction Status Date / Time Penicillins Allergy Severe ALGY-Difficulty Verified 10/07/24 15:16 Breathing Sulfa (Sulfonamide Allergy Severe ALGY-Swell Verified 10/07/24 15:16 Antibiotics) Lip/Tongue/Throat PFSH ED PFSH: Medical History Physical deconditioning Unspecified atrial flutter Alcoholic polyneuropathy Advanced chronic obstructive pulmonary disease Hepatic failure, unspecified without coma Chronic atrial fibrillation, unspecified Hypothyroidism Urinary tract infection BMI 50.0-59.9, adult Acute hepatic encephalopathy Hypertension COPD (chronic obstructive pulmonary disease) History of peritonitis Morbid obesity Contraindication to deep vein thrombosis (DVT) prophylaxis Splenomegaly Portal hypertension Chronic kidney disease Esophageal varices PVD (peripheral vascular disease) Seizure Stereotyped movements Anasarca CHF (congestive heart failure) Echocardiogram done in 2019 shows an EF of 40 to 45% with hypokinetic septum, anteroseptum and inferior wall, biatrial enlargement Encephalopathy, hepatic Upper gastrointestinal hemorrhage due to gastritis EGD with pyloric ulcer in 05/2021 Occult blood in stools Peritoneal dialysis catheter in situ Removed in 05/2021 due to recurrent bacterial peritonitis Anemia Alcoholic cirrhosis of liver with ascites Hepatorenal syndrome BPH loc w urin obs/LUTS C. difficile diarrhea Chronic hyponatremia varies with volume status Pleural effusion associated with hepatic disorder Pneumonia Fracture of fourth metatarsal bone of left foot Fracture of third metatarsal bone of left foot Fracture of second metatarsal bone of left foot Non-pressure chronic ulcer of other part of left foot limited to breakdown of skin Charcot's joint of left foot Atrial fibrillation and flutter Ataxia Hx of esophageal varices Charcot's arthropathy left foot Neuropathy PVD (peripheral vascular disease) End-stage liver disease not a candidate for transplant or tips at last evaluation Erectile dysfunction Peyronie disease Surgical History Status post surgery (07/05/20) peritoneal catheter for ascites History of tonsillectomy H/O colonoscopy H/O esophagogastroduodenoscopy History of abdominal paracentesis Hx of umbilical hernia repair Hx of vasectomy Family History Grandfather CAD (coronary artery disease) Grandmother CAD (coronary artery disease) Cancer Father Cancer Denies family history of Anesthesia complication Bleeding disorder Social History Smoking and tobacco/nicotine status: former use of tobacco/nicotine Substance/Drug Use: never 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 Marital status: Current occupational status: disabled Do you think of yourself as: Straight/Heterosexual Current gender identity: Male NIH stroke score NIHSS: Level Of Consciousness - 1a: 0 Level Of Consciousness Questions - 1b: Both Correct Level Of Consciousness Commands - 1c: Both Correct Best Gaze - 2: Normal Visual Jay - 3: No Visual Loss Facial Palsy - 4: Normal Motor Arm Right - 5: No Drift Motor Arm Left - 5: No Drift Motor Leg Right - 6: No Drift Motor Leg Left - 6: No Drift Limb Ataxia - 7: Absent Sensory - 8: Normal Best Language - 9: No Aphasia Dysarthia - 10: Normal Extinction And Inattention - 11: 0 Score: Total Score: 0 Physical Exam Const: COMMON NORMALS: patient oriented x3 HENMT: COMMON NORMALS: normocephalic and atraumatic HEAD & SCALP: normocephalic and atraumatic Eye: COMMON NORMALS: Equal, round and reactive pupils present and EOMs intact bilaterally PUPIL: Yes Equal, round and reactive pupils present Chest: COMMONS NORMALS: normal inspection of the chest and normal palpation of entire chest wall Resp: COMMON NORMALS: normal respiratory effort, No retractions, No use of accessory muscles and clear to auscultation bilaterally AUSCULTATION: clear to auscultation bilaterally Cardio: COMMON NORMALS: regular rate and No murmurs present (Cardio) RATE: regular rate GI: COMMON NORMALS: Normal to inspection, nondistended, normoactive bowel sounds present, Soft to palpation and non-tender PALPATION: Yes Soft to palpation Extremity: COMMON NORMALS: normal to inspection and full ROM Neuro: COMMON NORMALS: patient oriented x3, moves all extremities and no focal motor deficits Psych: COMMON NORMALS: mental status grossly normal, Normal thought process present and cooperative THOUGHT PROCESS: Normal thought process present Course Vital Signs: Vital signs: Vital Signs Temperature 98.1 F 10/07/24 15:39 Pulse Rate 72 10/07/24 16:33 Respiratory Rate 16 10/07/24 15:39 Blood Pressure 127/55 10/07/24 16:33 Pulse Oximetry 100 10/07/24 16:33 Oxygen Delivery Me thod Room Air 10/07/24 15:39 MDM - Neuro Symptoms/Deficit Medical Decision Making Yosvany is a 59-year-old male presenting as a code stroke from podiatry clinic with last known well 15: 15. Patient became diaphoretic and nauseous secondary to severe pain following his podiatry procedure. Upon evaluation following his CT head, patient with NIHSS of 0 and no focal neurodeficits on exam. Vitals overall unremarkable. CT head without acute abnormalities. Patient given morphine for pain. Patient presents here after a syncopal event he has no signs of stroke is likely syncopal event from being under pain his head CT here is normal he is at his baseline he feels improved he stable for discharge back to the longterm Medical Records I reviewed the patient's medical records. Lab Data I reviewed the patient's lab results. 10/07/24 15:51 10/07/24 15:[address] 10/07/24 15:28 IMPRESSION: 1. No acute intracranial hemorrhage or edema. 2. Moderate atrophy with mild small vessel disease. Notified Melanie Aldana MD at 10/07/2024 3:48 PM. Chest X-Ray 10/07/24 15:58 Impression: Cardiomegaly and atherosclerosis. Laboratory Results WBC 11.02 10^3/uL (3.29-11.43) 10/07/24 15:51 RBC 2.88 10^6/uL (3.85-5.65) L 10/07/24 15:51 Hgb 9.60 g/dL (11.27-16.99) L 10/07/24 15:51 Hct 29.6 % (37-53) L 10/07/24 15:51 MCV 102.8 fl (82-101) H 10/07/24 15:51 MCH 33.3 pg (27-33) H 10/07/24 15:51 MCHC 32.4 g/dL (30-55) 10/07/24 15:51 RDW 14.5 % (12.1-15.1) 10/07/24 15:51 Plt Count 264 10^3/cmm (157-399) 10/07/24 15:51 MPV 9.9 fL (7.4-10.4) 10/07/24 15:51 Neut % (Auto) 75.4 % 10/07/24 15:51 Lymph % (Auto) 9.3 % 10/07/24 15:51 [place] % (Auto) 10.6 % 10/07/24 15:51 Eos % (Auto) 3.4 % 10/07/24 15:51 Baso % (Auto) 0.8 % 10/07/24 15:51 Neut # (Auto) 8.31 10^3/uL (1.8-7.7) H 10/07/24 15:51 Lymph # (Auto) 1.0 10^3/uL (0.8-4.8) 10/07/24 15:51 [place] # (Auto) 1.2 10^3/uL (0.2-0.9) H 10/07/24 15:51 Eos # (Auto) 0.4 10^3/uL (0.0-0.8) 10/07/24 15:51 Baso # (Auto) 0.1 10^3/uL (0.0-0.1) 10/07/24 15:51 Nucleated RBC % (auto) 0 % 10/07/24 15:51 Nucleated RBCs # 0.0 /100WBC 10/07/24 15:51 PT 21.20 SECONDS (12.1-14.9) H 10/07/24 15:51 INR 1.72 (0.8-1.2) H 10/07/24 15:51 APTT 40.7 SECONDS (23.9-36.7) H 10/07/24 15:51 Sodium 132 mmol/L (136-145) L 10/07/24 15:51 Potassium 4.5 mmol/L (3.5-5.1) 10/07/24 15:51 Chloride 94 mmol/L (98-107) L 10/07/24 15:51 Carbon Dioxide 29 mmol/L (22-29) 10/07/24 15:51 Anion Gap 13.5 (5-19) 10/07/24 15:51 BUN 22 mg/dL (8-23) 10/07/24 15:51 Creatinine 2.1 mg/dL (0.7-1.2) H 10/07/24 15:51 GFR Calculation 32.4 mL/min (90-130) L 10/07/24 15:51 Glucose 111 mg/dL (65-115) 10/07/24 15:51 POC Glucose 119 mg/dL (70-110) H 10/07/24 15:34 Calculated Osmolality 278 mOsm/kg (285-295) L 10/07/24 15:51 Calcium 8.6 mg/dL (8.5-10.5) 10/07/24 15:51 Total Bilirubin 0.9 mg/dL (0.15-1.2) 10/07/24 15:51 AST 22 U/L (0-40) 10/07/24 15:51 ALT 14 U/L (0-41) 10/07/24 15:51 Alkaline Phosphatase 116 U/L (40-130) 10/07/24 15:51 Total Protein 6.5 g/dL (6.6-8.7) L 10/07/24 15:51 Albumin 2.9 g/dL (3.5-5.2) L 10/07/24 15:51 Globulin 3.6 g/dL (1.3-4.6) 10/07/24 15:51 All radiology interpretation(s) finalized by discharge EKG Data EKG 1: I personally reviewed and interpreted this EKG as follows: EKG interpretation date: 10/07/24 EKG interpretation time: 15:39 Interpretation: afib hr [address] elevation qrs 98 qtc 432 Discharge Plan Discharge Patient Disposition: Home Clinical Impression: Syncope Condition: Stable Prescriptions: No Action vitamin B complex [Vitamins B Complex] Tablet 1 tab PO DAILY@07 diltiazem HCl [Cardizem CD] 120 mg capsule,extended release 24hr 120 mg PO DAILY@07 levothyroxine 50 mcg tablet 50 mcg PO DAILY@06 thiamine HCl (vitamin B1) 50 mg tablet 50 mg PO DAILY@07 (DME) CAM BOOT See Rx Instructions .Route .MEDSUPPLY Qty: 1 0RF Rx Instructions: As directed ([facility] [place]) Wheel chair with elevated foot rests and seat cushion See Rx Instructions .Route .MEDSUPPLY Qty: 1 0RF Rx Instructions: As directed by HOME ascorbic acid (vitamin C) 1,000 mg tablet extended release 1,000 mg PO Q12H 30 Days Qty: 60 2RF cholecalciferol (vitamin D3) 25 mcg (1,000 unit) capsule 25 mcg PO DAILY 30 Days Qty: 30 2RF doxycycline hyclate 100 mg capsule 100 mg PO BID aspirin 81 mg tablet,delayed release (DR/EC) 81 mg PO DAILY cephalexin 500 mg capsule 500 mg PO BID docusate sodium 100 mg capsule 100 mg PO DAILY bumetanide 1 mg tablet 1 mg PO DAILY bisacodyl 5 mg tablet,delayed release (DR/EC) 5 mg PO DAILY polyethylene glycol 3350 17 gram/dose powder 4 g PO DAILY fluticasone propionate 50 mcg/actuation spray,suspension 1 spray intranasal BID Rx Instructions: administer into each nostril alum-mag hydroxide-simeth [Mylanta Maximum Strength] 400-400-40 mg/5 mL suspension 5 ml PO QID PRN Eliquis 5 mg tablet 5 mg PO BID Preparation H 0.25-14-74.9 % ointment 1 applic RI DAILY calcium carbonate 500 mg calcium (1,250 mg) tablet 500 mg PO DAILY 30 Days Qty: 60 2RF (DME) [place] Boot for the Right Foot See Rx Instructions .Route .MEDSUPPLY Qty: 1 0RF Rx Instructions: As directed [facility] Lesa Davila tramadol 50 mg tablet 50 mg PO BID PRN (Reason: pain) Qty: 60 5RF folic acid 1 mg tablet 1 mg PO DAILY@07 fluticasone propionate [Flonase Allergy Relief] 50 mcg/actuation spray,suspension 2 spray intranasal DAILY@07 albuterol sulfate 90 mcg/actuation HFA aerosol inhaler 1 puff INHALATION Q4H PRN (Reason: shortness of breath/wheezing) cetirizine [Zyrtec] 10 mg Tablet 10 mg PO DAILY@07 midodrine 5 mg tablet 5 mg PO TID potassium chloride 20 mEq Tablet Extended Release 20 meq PO BID@07,19 Hold Instructions: Resume on 12/30/21. gabapentin 100 mg Capsule 100 mg PO TID levetiracetam 500 mg tablet 1,000 mg PO BID ferrous sulfate [iron] 325 mg (65 mg iron) Tablet 325 mg PO DAILY spironolactone 50 mg tablet 50 mg PO DAILY@07 alfuzosin 10 mg tablet extended release 24 hr 10 mg PO DAILY@07 Rx Instructions: administer after the same meal each day acetaminophen [Tylenol] 325 mg Tablet 325 - 650 mg PO Q4H PRN (Reason: Pain) lactulose 20 gram/30 mL Solution 30 ml PO DAILY Qty: 1200 0RF magnesium citrate Solution 296 ml PO DAILY Qty: 296 0RF Discharge Orders: Discharge ED (Routine); Ordered 10/07/24 Ordered By: Melanie Aldana Referrals: Clarissa Ramirez PROFESSOR OF GEOGRAPHY [Primary Care Provider] - Discharge Diet: Advance as tolerated Discharge Activity: Resume usual activity Patient Instructions: Syncope (ED) Coding Level of Care Code ED Regulator Operator for Tay Rust
[2024-10-07 15:57] LABS: Basophils # 0.1 10^3/uL (0.0-0.1); Basophils % 0.8 %; Eosinophils # 0.4 10^3/uL (0.0-0.8); Eosinophils % 3.4 %; Hematocrit 29.6 % (37-53); Lymphocytes % 9.3 %; Mean Corpuscular HGB Conc 32.4 g/dL (30-55); Mean Corpuscular Hemoglobin 33.3 pg (27-33); Mean Corpuscular Volume 102.8 fl (82-101); Mean Platelet Volume 9.9 fL (7.4-10.4); Monocytes # 1.2 10^3/uL (0.2-0.9); Monocytes % 10.6 %; Neutrophils # 8.31 10^3/uL (1.8-7.7); Neutrophils % 75.4 %; Nucleated Red Blood Cells % 0 %; Platelet Count 264 10^3/cmm (157-399); Red Blood Count 2.88 10^6/uL (3.85-5.65); Red Cell Distribution Width 14.5 % (12.1-15.1); White Blood Count 11.02 10^3/uL (3.29-11.43)
--- NOTE | 2024-10-07 15:58 | XR_ITS ---
WS: [id number] Portable AP upright chest, 10/07/2024 Clinical Data: syncope Comparison: Portable chest, 09/18/2024 Findings: No nodules, masses or effusions are seen. The heart is enlarged. The pulmonary vascularity is not increased. No pneumonia or pneumothorax is seen. The aortic arch shows mild tortuosity. There is a recording device overlying the aortic arch. XR/XR chest 1V portable [id number] Impression: Cardiomegaly and atherosclerosis.
[2024-10-07 16:15] LABS: INR 1.72 (0.8-1.2)
[2024-10-07 16:16] LABS: Partial Thromboplastin Time 40.7 SECONDS (23.9-36.7)
[2024-10-07 16:18] LABS: Alanine Aminotransferase 14 U/L (0-41); Albumin Level 2.9 g/dL (3.5-5.2); Alkaline Phosphatase 116 U/L (40-130); Anion Gap 13.5 (5-19); Aspartate Amino Transferase 22 U/L (0-40); Blood Urea Nitrogen 22 mg/dL (8-23); Calcium 8.6 mg/dL (8.5-10.5); Carbon Dioxide 29 mmol/L (22-29); Chloride 94 mmol/L (98-107); Creatinine Clr Calc Pharmacy 60.0205; Globulin 3.6 g/dL (1.3-4.6); Glomerular Filtration Rate 32.4 mL/min (90-130); Glucose 111 mg/dL (65-115); Osmolality Calculated 278 mOsm/kg (285-295); Potassium 4.5 mmol/L (3.5-5.1); Sodium 132 mmol/L (136-145); Total Bilirubin 0.9 mg/dL (0.15-1.2); Total Protein 6.5 g/dL (6.6-8.7)
[2024-10-07] MEDS: morphine 4 mg/mL SDV 1 mL IVP (16:28)
[2024-10-07 16:33] VITALS: BP 127/55; PULSE 72; O2SAT 100
[2024-10-07] MEDS: oxyCODONE-APAP 5-325 mg Tablet 1 TAB PO (17:42)
[2024-10-07] MEDS: HYDROmorphone 1 mg/mL INJ 1 mL 0.4 MG IVP (17:42)
[2024-10-07 17:47] VITALS: BP 132/63; PULSE 84; O2SAT 99
[2024-10-07 18:04] VITALS: BP 146/62; PULSE 71; O2SAT 100
== END 2024-10-07 18:10 | disposition home or self-care (01) ==
PROVIDERS: Emergency Provider Emergency Medicine; PCP Nurse Practitioner Family
DX: R55 Syncope and collapse (principal); Z79.82 Long term (current) use of aspirin; Z79.01 Long term (current) use of anticoagulants; Z87.891 Personal history of nicotine dependence; J44.9 Chronic obstructive pulmonary disease, unspecified; I13.2 Hypertensive heart and chronic kidney disease with heart failure and with stage 5 chronic kidney disease, or end stage renal disease; I50.9 Heart failure, unspecified; N18.6 End stage renal disease
CPT/HCPCS: 36416; 70450; 71045; 80053; 82962; 85025; 85610; 85730; 93005; 96374; 96375; 99213; 99285; J1171; J2270

== ENCOUNTER → 2025-01-14 08:00 | Outpatient (BNVA) | payer MEDICARE, MEDICAID, SELFPAY | PROVIDERS: PCP Nurse Practitioner Family; Visit Provider Nurse Practitioner Family | DX: L03.115 Cellulitis of right lower limb (principal) | CPT/HCPCS: 80053; 85025; 86140 ==

== ENCOUNTER → 2025-01-17 09:32 | Outpatient (BNVA) | payer MEDICARE, MEDICAID, SELFPAY | PROVIDERS: PCP Nurse Practitioner Family; Visit Provider Nurse Practitioner Family | DX: D64.9 Anemia, unspecified (principal) | CPT/HCPCS: 85025 ==

== ENCOUNTER 2025-02-26 17:41 | Emergency (ER) | payer MEDICARE, MEDICAID, SELFPAY ==
[2025-02-26 17:53] VITALS: BP 127/63; PULSE 68; RESP 20; TEMP 37.1; O2SAT 100; BMI 42.8
--- NOTE | 2025-02-26 18:12 | XRR_ITS ---
PROCEDURE INFORMATION: Exam: XR Chest Exam date and time: 02/26/2025 6:22 PM Age: 59 years old Clinical indication: Other: Weakness TECHNIQUE: Imaging protocol: Radiologic exam of the chest. Views: 1 view. COMPARISON: CR XR chest 1V portable [id number] 10/07/2024 4:04 PM FINDINGS: Lungs: Unremarkable. No consolidation. Pleural spaces: Unremarkable. No pleural effusion. No pneumothorax. Heart/Mediastinum: Unremarkable. No cardiomegaly. Bones/joints: Unremarkable. XR/XR chest 1V portable [id number] IMPRESSION: No acute findings.
--- NOTE | 2025-02-26 18:12 | ECG_ITS ---
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 Measurements Intervals [place] Rate: 68 P: 0 ND: 0 QRS: 83 QRSD: 101 T: 65 QT: 431 QTc: 460 Interpretive Statements ATRIAL FIBRILLATION LOW QRS VOLTAGE IN PRECORDIAL LEADS [QRS DEFLECTION < 1.0 mV IN CHEST LEADS] ANTEROSEPTAL MYOCARDIAL INFARCTION , OF INDETERMINATE AGE [40+ ms Q WAVE IN V1-V4] Compared to ECG 10/07/2024 15:39:58 Right-axis deviation no longer present Myocardial infarct finding still present Electronically Signed On 02-27-2025 21:38:07 CDT by Odin Eddy M.D. [email or web address]
[2025-02-26 18:52] LABS: Basophils # 0.1 10^3/uL (0.0-0.1); Basophils % 1.5 %; Eosinophils # 0.4 10^3/uL (0.0-0.8); Eosinophils % 7.8 %; Hematocrit 30.3 % (37-53); Mean Corpuscular HGB Conc 31.4 g/dL (30-55); Mean Corpuscular Hemoglobin 30.9 pg (27-33); Mean Corpuscular Volume 98.7 fl (82-101); Mean Platelet Volume 9.2 fL (7.4-10.4); Monocytes # 0.5 10^3/uL (0.2-0.9); Monocytes % 11.4 %; Neutrophils % 57.1 %; Nucleated Red Blood Cells % 0 %; Platelet Count 171 10^3/cmm (157-399); Red Blood Count 3.07 10^6/uL (3.85-5.65); Red Cell Distribution Width 20.5 % (12.1-15.1); White Blood Count 4.73 10^3/uL (3.29-11.43)
--- NOTE | 2025-02-26 19:00 | W.ED.WEAKNES ---
HPI - Weakness General: Chief complaint: Weakness Stated complaint: weakness Time Seen by Provider: 02/26/25 17:52 History of Present Illness: Patient is a 59-year-old male with alcoholic liver cirrhosis, A-fib, intolerant to AC due to recent anemia requiring transfusion, resides at residential facility that reports to our facility due to weakness the last 3 days. Patient states that he cannot stay awake. He is weak. No BM in 2 days. He states he has been compliant to his lactulose. He does admit to a little bit of confusion. Denies any dysuria. He has a wound to his right lower leg posterior that is under care at long-term. No chest discomfort or shortness of breath. Associated symptoms: Reports easy bruising; Denies chest pain, chills, fever(s), headache(s), nausea or vomiting Review of Systems General: Reports: 10 or more systems reviewed and unremarkable except in HPI and below Const: Reports: malaise; Denies: fever(s) or chills Card: Denies: chest pain or palpitations Resp: Denies: dyspnea or non-productive cough GI: Denies: abdominal pain, nausea or vomiting : Denies: flank pain or difficulty urinating Musc: Denies: neck pain or back pain Skin/Breast: Reports: skin tenderness and non-healing lesions; Denies: rash or pruritus Neuro: Reports: weakness in extremities; Denies: headache(s), numbness in extremities or sensory changes Psych: Reports: sleeping more; Denies: anxiety or depression Endo: Reports: tired all the time; Denies: polyuria or polydipsia Avinash/Lymph: Reports: easy bruising and easy bleeding PFS ED PFSH: Medical History Physical deconditioning Unspecified atrial flutter Alcoholic polyneuropathy Advanced chronic obstructive pulmonary disease Hepatic failure, unspecified without coma Chronic atrial fibrillation, unspecified Hypothyroidism Urinary tract infection BMI 50.0-59.9, adult Acute hepatic encephalopathy Hypertension COPD (chronic obstructive pulmonary disease) History of peritonitis Morbid obesity Contraindication to deep vein thrombosis (DVT) prophylaxis Splenomegaly Portal hypertension Chronic kidney disease Esophageal varices PVD (peripheral vascular disease) Seizure Stereotyped movements Anasarca CHF (congestive heart failure) Echocardiogram done in 2019 shows an EF of 40 to 45% with hypokinetic septum, anteroseptum and inferior wall, biatrial enlargement Encephalopathy, hepatic Upper gastrointestinal hemorrhage due to gastritis EGD with pyloric ulcer in 05/2021 Occult blood in stools Peritoneal dialysis catheter in situ Removed in 05/2021 due to recurrent bacterial peritonitis Anemia Alcoholic cirrhosis of liver with ascites Hepatorenal syndrome BPH loc w urin obs/LUTS C. difficile diarrhea Chronic hyponatremia varies with volume status Pleural effusion associated with hepatic disorder Pneumonia Fracture of fourth metatarsal bone of left foot Fracture of third metatarsal bone of left foot Fracture of second metatarsal bone of left foot Non-pressure chronic ulcer of other part of left foot limited to breakdown of skin Charcot's joint of left foot Atrial fibrillation and flutter Ataxia Hx of esophageal varices Charcot's arthropathy left foot Neuropathy PVD (peripheral vascular disease) End-stage liver disease not a candidate for transplant or tips at last evaluation Erectile dysfunction Peyronie disease Surgical History Status post surgery (07/05/20) peritoneal catheter for ascites History of tonsillectomy H/O colonoscopy H/O esophagogastroduodenoscopy History of abdominal paracentesis Hx of umbilical hernia repair Hx of vasectomy Family History Grandfather CAD (coronary artery disease) Grandmother CAD (coronary artery disease) Cancer Father Cancer Denies family history of Anesthesia complication Bleeding disorder Social History Smoking and tobacco/nicotine status: former use of tobacco/nicotine Substance/Drug Use: never Housing: Skilled Nursing Marital status: Current occupational status: disabled Do you think of yourself as: Straight/Heterosexual Current gender identity: Male Physical Exam Const: COMMON NORMALS: no acute distress, patient oriented x3 and well nourished EXAM LIMITATIONS: physical limitations GENERAL APPEARANCE: cooperative and comfortable NUTRITIONAL APPEARANCE: obese ORIENTATION/CONSCIOUSNESS: Yes awake, Yes oriented to person, Yes oriented to place and Yes oriented to time HENMT: COMMON NORMALS: normocephalic and atraumatic HEAD & SCALP: normocephalic and atraumatic Neck/C-Spine: COMMON NORMALS: full ROM, no lymphadenopathy and supple Chest: COMMONS NORMALS: normal inspection of the chest Resp: COMMON NORMALS: normal respiratory effort and clear to auscultation bilaterally EFFORT & INSPECTION: Yes able to speak in complete sentences AUSCULTATION: clear to auscultation bilaterally GI: COMMON NORMALS: Normal to inspection, nondistended, normoactive bowel sounds present, Soft to palpation and No hepatosplenomegaly present INSPECTION: No Abdominal wall edema, No Anasarca, No abdominal distension, Yes central obesity, No caput medusae present and No Fluid wave present AUSCULTATION: Yes normoactive bowel sounds PALPATION: Yes Soft to palpation and Yes No hepatosplenomegaly present PERCUSSION: no fluid wave Extremity: COMMON NORMALS: full ROM and capillary refill normal GENERAL: Yes edema (bilat) RIGHT LOWER EXTREMITY: Yes upper leg Right upper leg: Yes inspection (wound to posterior Lower leg) EXTREMITY IMAGE (BACK):  1. wound Neuro: COMMON NORMALS: patient oriented x3 SENSORIUM/ORIENTATION: Yes oriented to person, Yes oriented to place and Yes oriented to time Course Vital Signs: Vital signs: Vital Signs Temperature 98.7 F 02/26/25 17:53 Pulse Rate 68 02/26/25 17:53 Respiratory Rate 20 H 02/26/25 17:53 Blood Pressure 127/63 02/26/25 17:53 Pulse Oximetry 100 02/26/25 17:53 Oxygen Delivery Me thod Room Air 02/26/25 17:53 MDM - Weakness Medical Decision Making Patient is a 59-year-old gentleman with confusion, and weakness. On reevaluation his confusion has really resolved. He did not recall my initial evaluation at bedside and for medical screening examination. His mother is present at bedside on reevaluation. Discussed with him the protocol for hepatic encephalopathy and stools of 3?5 daily. Patient denies any recent stools. Lactulose was increased to every 6 hours for goal of 2-3 stools daily after initial BMs. Lab Data 02/26/25 18:38 02/26/25 18:38 Radiology Impressions Chest X-Ray 02/26/25 18:12 IMPRESSION: No acute findings. Laboratory Results WBC 4.73 10^3/uL (3.29-11.43) 02/26/25 18:38 RBC 3.07 10^6/uL (3.85-5.65) L 02/26/25 18:38 Hgb 9.50 g/dL (11.27-16.99) L 02/26/25 18:38 Hct 30.3 % (37-53) L 02/26/25 18:38 MCV 98.7 fl (82-101) 02/26/25 18:38 MCH 30.9 pg (27-33) 02/26/25 18: MCHC 31.4 g/dL (30-55) 02/26/25 18:38 RDW 20.5 % (12.1-15.1) H 02/26/25 18:38 Plt Count 171 10^3/cmm (157-399) 02/26/25 18:38 MPV 9.2 fL (7.4-10.4) 02/26/25 18:38 Neut % (Auto) 57.1 % 02/26/25 18:38 Lymph % (Auto) 22.0 % 02/26/25 18:38 [place] % (Auto) 11.4 % 02/26/25 18:38 Eos % (Auto) 7.8 % 02/26/25 18:38 Baso % (Auto) 1.5 % 02/26/25 18:38 Neut # (Auto) 2.70 10^3/uL (1.8-7.7) 02/26/25 18:38 Lymph # (Auto) 1.0 10^3/uL (0.8-4.8) 02/26/25 18:38 [place] # (Auto) 0.5 10^3/uL (0.2-0.9) 02/26/25 18:38 Eos # (Auto) 0.4 10^3/uL (0.0-0.8) 02/26/25 18:38 Baso # (Auto) 0.1 10^3/uL (0.0-0.1) 02/26/25 18: Nucleated RBC % (auto) 0 % 02/26/25 18: Nucleated RBCs # 0.0 /100WBC 02/26/25 18:38 Sodium 133 mmol/L (136-145) L 02/26/25 18:38 Potassium 4.0 mmol/L (3.5-5.1) 02/26/25 18: Chloride 93 mmol/L (98-107) L 02/26/25 18:38 Carbon Dioxide 27 mmol/L (22-29) 02/26/25 18:38 Anion Gap 17.0 (5-19) 02/26/25 18:38 BUN 19 mg/dL (8-23) 02/26/25 18:38 Creatinine 1.3 mg/dL (0.7-1.2) H 02/26/25 18:38 GFR Calculation 56.3 mL/min (90-130) L 02/26/25 18:38 Glucose 103 mg/dL (65-115) 02/26/25 18:38 Calculated Osmolality 279 mOsm/kg (285-295) L 02/26/25 18:38 Lactic Acid 1.3 mmol/L (0.5-2.2) 02/26/25 18:38 Calcium 9.2 mg/dL (8.5-10.5) 02/26/25 18:38 Magnesium 2.2 mg/dL (1.7-2.3) 02/26/25 18:38 Total Bilirubin 0.6 mg/dL (0.15-1.2) 02/26/25 18:38 AST 20 U/L (0-40) 02/26/25 18:38 ALT 15 U/L (0-41) 02/26/25 18:38 Alkaline Phosphatase 103 U/L (40-130) 02/26/25 18:38 Ammonia 110 umol/L (16-60) H 02/26/25 18:38 Troponin T Baseline 63 ng/L (0-15) H 02/26/25 18:38 Troponin T 120 Minute 59.91 ng/L (0-15) H 02/26/25 20:16 Delta Troponin T -3.09 ABS# (0-10) L 02/26/25 20:16 NT-Pro-B Natriuret Pep 98 pg/mL (0-125) 02/26/25 18:38 Total Protein 6.1 g/dL (6.6-8.7) L 02/26/25 18:38 Albumin 3.2 g/dL (3.5-5.2) L 02/26/25 18:38 Globulin 2.9 g/dL (1.3-4.6) 02/26/25 18:38 Urine Color Yellow (Yellow) 02/26/25 20:03 Urine Appearance Clear (CLEAR) 02/26/25 20:03 Urine pH 7.0 (5-7) 02/26/25 20:03 Ur Specific [place] 1.009 (1.005-1.030) 02/26/25 20:03 Urine Protein Negative (Negative) 02/26/25 20:03 Urine Glucose (UA) Negative (Normal) 02/26/25 20:03 Urine Ketones Negative (Negative) 02/26/25 20:03 Urine Blood Negative (Negative) 02/26/25 20:03 Urine Nitrate Negative (Negative) 02/26/25 20:03 Urine Bilirubin Negative (Negative) 02/26/25 20:03 Urine Urobilinogen 0.2 mg/dL (Negative) 02/26/25 20:03 Ur Leukocyte Esterase Negative (Negative) 02/26/25 20:03 Urine RBC 0-2 /hpf (0-2) 02/26/25 20:03 Urine WBC 0-5 /hpf (0-5) 02/26/25 20:03 Ur Squamous Epith Cells 0-5 /hpf (0-5) 02/26/25 20:03 Amorphous Sediment Not Reportable 02/26/25 20:03 Urine Bacteria None seen /hpf (NONE) 02/26/25 20:03 Hyaline Casts 2.05 /lpf 02/26/25 20:03 Influenza A (PCR) Negative (Negative) 02/26/25 18:42 Influenza Type B (PCR) Negative (Negative) 02/26/25 18:42 RSV (PCR) Negative (Negative) 02/26/25 18:42 SARS-CoV-2 (PCR) Negative (Negative) 02/26/25 18:42 All radiology interpretation(s) finalized by discharge EKG Data EKG 1: Interpretation: A-fib, rate of 64, QTc 424 Computer generated interpretation: Atrial fibrillation, borderline right axis deviation, low QRS voltage in precordial leads Discharge Plan Discharge Patient Disposition: Home Clinical Impression: Acute hepatic encephalopathy Condition: Stable Prescriptions: New lactulose 10 gram/15 mL solution 20 g PO Q6H 3 Days Qty: 360 0RF Rx Instructions: until desired laxative effect No Action vitamin B complex [Vitamins B Complex] Tablet 1 tab PO DAILY@07 diltiazem HCl [Cardizem CD] 120 mg capsule,extended release 24hr 120 mg PO DAILY@07 levothyroxine 50 mcg tablet 50 mcg PO DAILY@06 thiamine HCl (vitamin B1) 50 mg tablet 50 mg PO DAILY@07 (DME) CAM BOOT See Rx Instructions .Route .MEDSUPPLY Qty: 1 0RF Rx Instructions: As directed (DME) Wheel chair with elevated foot rests and seat cushion See Rx Instructions .Route .MEDSUPPLY Qty: 1 0RF Rx Instructions: As directed by HOME ascorbic acid (vitamin C) 1,000 mg tablet extended release 1,000 mg PO Q12H 30 Days Qty: 60 2RF cholecalciferol (vitamin D3) 25 mcg (1,000 unit) capsule 25 mcg PO DAILY 30 Days Qty: 30 2RF aspirin 81 mg tablet,delayed release (DR/EC) 81 mg PO DAILY cephalexin 500 mg capsule 500 mg PO BID docusate sodium 100 mg capsule 100 mg PO DAILY bumetanide 1 mg tablet 1 mg PO DAILY bisacodyl 5 mg tablet,delayed release (DR/EC) 5 mg PO DAILY polyethylene glycol 3350 17 gram/dose powder 4 g PO DAILY fluticasone propionate 50 mcg/actuation spray,suspension 1 spray intranasal BID Rx Instructions: administer into each nostril alum-mag hydroxide-simeth [Mylanta Maximum Strength] 400-400-40 mg/5 mL suspension 5 ml PO QID PRN Preparation H 0.25-14-74.9 % ointment 1 applic AR DAILY vancomycin 125 mg capsule 125 mg PO QID naloxone [Rextovy] 4 mg/actuation spray,non-aerosol 4 mg intranasal Q2M PRN Rx Instructions: spray 1 dose into ONE nostril; alternate nostrils w each dose until help arrives calcium carbonate 500 mg calcium (1,250 mg) tablet 500 mg PO DAILY 30 Days Qty: 60 2RF (DME) [place] Boot for the Right Foot See Rx Instructions .Route .MEDSUPPLY Qty: 1 0RF Rx Instructions: As directed [facility] tramadol 50 mg tablet 100 mg PO BID PRN (Reason: pain) Qty: 120 5RF folic acid 1 mg tablet 1 mg PO DAILY@07 fluticasone propionate [Flonase Allergy Relief] 50 mcg/actuation spray,suspension 2 spray intranasal DAILY@07 albuterol sulfate 90 mcg/actuation HFA aerosol inhaler 1 puff INHALATION Q4H PRN (Reason: shortness of breath/wheezing) cetirizine [Zyrtec] 10 mg Tablet 10 mg PO DAILY@ midodrine 5 mg tablet 5 mg PO TID potassium chloride 20 mEq Tablet Extended Release 20 meq PO BID@, gabapentin 100 mg Capsule 100 mg PO TID levetiracetam 500 mg tablet 1,000 mg PO BID ferrous sulfate [iron] 325 mg (65 mg iron) Tablet 325 mg PO DAILY spironolactone 50 mg tablet 50 mg PO DAILY@07 alfuzosin 10 mg tablet extended release 24 hr 10 mg PO DAILY@07 Rx Instructions: administer after the same meal each day acetaminophen [Tylenol] 325 mg Tablet 325 - 650 mg PO Q4H PRN (Reason: Pain) lactulose 20 gram/30 mL Solution 30 ml PO DAILY Qty: 1200 0RF magnesium citrate Solution 296 ml PO DAILY Qty: 296 0RF Discharge Orders: Discharge ED (Routine); Ordered 02/26/25 Ordered By: Hilda Thacker Referrals: Clarissa Ramirez NP [Primary Care Provider, Family Practice] Discharge Diet: Low Salt Discharge Activity: Resume usual activity Patient Instructions: Hepatic Encephalopathy (DC), Opioid Safety, Pain Management Activity Restrictions/Additional Instructions: Increase your lactulose to every 6 hours until 3?4 stools/24 hours Caution on any type of opioid medications/tramadol. This will worsen hepatic encephalopathy and decreased stools which also worsens hepatic encephalopathy Return to ED if no improvement Repeat lab work in 2 days, ammonia level with facility physician. Send results to facility physician Low-salt diet Print Language: Hungarian Coding Level of Care Code ED Shop Estimator for Chg Fwd Related Data Home Medications ?Medication ?Instructions ?Recorded ?Confirmed vitamin B complex (Vitamins B 1 tab PO DAILY@01/04/20 02/08/25 Complex tablet) folic acid 1 mg tablet 1 mg PO DAILY@08/23/20 01/19/25 fluticasone propionate 50 2 spray intranasal DAILY@09/08/20 01/19/25 mcg/actuation nasal spray,suspension (Flonase Allergy Relief) albuterol sulfate 90 mcg/actuation 1 puff inhalation Q4H PRN 12/11/20 02/08/25 aerosol inhaler shortness of breath/wheezing diltiazem HCl 120 mg 120 mg PO DAILY@04/24/21 02/08/25 capsule,extended release 24 hr (Cardizem CD) cetirizine 10 mg tablet (Zyrtec) 10 mg PO DAILY@05/24/21 02/08/25 levothyroxine 50 mcg tablet 50 mcg PO DAILY@08/15/21 02/08/25 midodrine 5 mg tablet 5 mg PO TID 09/01/21 02/08/25 potassium chloride 20 mEq 20 meq PO BID@09/01/21 02/08/25 tablet,extended release gabapentin 100 mg capsule 100 mg PO TID 10/20/21 02/08/25 thiamine HCl (vitamin B1) 50 mg 50 mg PO DAILY@11/29/21 02/08/25 tablet ferrous sulfate 325 mg (65 mg 325 mg PO DAILY 12/24/21 02/08/25 iron) tablet (iron) levetiracetam 500 mg tablet 1,000 mg PO BID 12/24/21 02/08/25 alfuzosin 10 mg tablet,extended 10 mg PO DAILY@11/04/22 02/08/25 release 24 hr spironolactone 50 mg tablet 50 mg PO DAILY@11/04/22 02/08/25 acetaminophen 325 mg tablet 325 - 650 mg PO Q4H PRN Pain 04/19/23 02/08/25 (Tylenol) aluminum-mag hydroxide-simethicone 5 ml PO QID PRN 10/05/24 02/08/25 400 mg-400 mg-40 mg/5 mL oral susp (Mylanta Maximum Strength) aspirin 81 mg tablet,delayed 81 mg PO DAILY 10/05/24 02/08/25 release bisacodyl 5 mg tablet,delayed 5 mg PO DAILY 10/05/24 02/08/25 release bumetanide 1 mg tablet 1 mg PO DAILY 10/05/24 01/19/25 cephalexin 500 mg capsule 500 mg PO BID 10/05/24 01/19/25 docusate sodium 100 mg capsule 100 mg PO DAILY 10/05/24 02/08/25 fluticasone propionate 50 1 spray intranasal BID 10/05/24 02/08/25 mcg/actuation nasal spray,suspension phenylephrine 0.25 %-mineral oil 1 applic AR DAILY 10/05/24 01/19/25 14 %-petrolatm 74.9 % rectal ointment (Preparation H) polyethylene glycol 3350 17 4 g PO DAILY 10/05/24 02/08/25 gram/dose oral powder naloxone 4 mg/actuation nasal 4 mg intranasal Q2M PRN 02/08/25 02/08/25 spray (Rextovy) vancomycin 125 mg capsule 125 mg PO QID 02/08/25 02/08/25 Previous Rx's ?Medication ?Instructions ?Recorded lactulose 20 gram/30 mL oral 30 ml PO DAILY #1,200 mL 04/19/23 solution CAM BOOT #1 ea 05/08/23 Wheel chair with elevated foot #1 ea 06/19/23 rests and seat cushion ascorbic acid (vitamin C) 1,000 mg 1,000 mg PO Q12H 30 days #60 tabs 11/27/23 tablet,extended release cholecalciferol (vitamin D3) 25 25 mcg PO DAILY 30 days #30 caps 11/27/23 mcg (1,000 unit) capsule calcium carbonate 500 mg PO DAILY 30 days #60 tabs 12/02/23 [place] Boot for the Right Foot #1 ea 03/11/24 magnesium citrate 296 ml PO DAILY #296 mL 09/19/24 tramadol 50 mg tablet 100 mg (2 x 50 mg) PO BID PRN pain 10/26/24 #120 tabs lactulose 10 gram/15 mL oral 20 g (30 mL) PO Q6H 72 hours #360 02/26/25 solution mL Allergies Allergy/AdvReac Type Severity Reaction Status Date / Time Penicillins Allergy Severe ALGY-Difficulty Verified 10/15/24 07:22 Breathing Sulfa (Sulfonamide Allergy Severe ALGY-Swell Verified 10/15/24 07:22 Antibiotics) Lip/Tongue/Throat
[2025-02-26 19:13] LABS: Ammonia 110 umol/L (16-60); Lactic Sepsis W/Reflex 1.3 mmol/L (0.5-2.2)
[2025-02-26 19:14] LABS: Troponin(5th) Baseline 63 ng/L (0-15)
[2025-02-26 19:24] LABS: Alanine Aminotransferase 15 U/L (0-41); Albumin Level 3.2 g/dL (3.5-5.2); Alkaline Phosphatase 103 U/L (40-130); Aspartate Amino Transferase 20 U/L (0-40); Blood Urea Nitrogen 19 mg/dL (8-23); Calcium 9.2 mg/dL (8.5-10.5); Carbon Dioxide 27 mmol/L (22-29); Chloride 93 mmol/L (98-107); Creatinine Clr Calc Pharmacy 91.3737; Globulin 2.9 g/dL (1.3-4.6); Glomerular Filtration Rate 56.3 mL/min (90-130); Glucose 103 mg/dL (65-115); Magnesium 2.2 mg/dL (1.7-2.3); NT Pro B Type Natriuretic Pept 98 pg/mL (0-125); Osmolality Calculated 279 mOsm/kg (285-295); Sodium 133 mmol/L (136-145); Total Bilirubin 0.6 mg/dL (0.15-1.2); Total Protein 6.1 g/dL (6.6-8.7)
[2025-02-26 19:28] LABS: Influenza A NEGATIVE (Negative); Influenza B NEGATIVE (Negative); Respiratory Syncytial Virus Ce NEGATIVE (Negative); SARS-CoV-2 PCR NEGATIVE (Negative)
[2025-02-26] MEDS: lactulose oral liq 20 gm/30 mL UDC 30 GM PO (19:40)
[2025-02-26 20:11] LABS: Bilirubin Urine Negative (Negative); Blood Urine Negative (Negative); Glucose Urine UA Negative (Normal); Ketones Urine Negative (Negative); Leukocyte Esterase Urine Negative (Negative); Nitrate Urine Negative (Negative); Protein Urine Negative (Negative); Specific Gravity, Urine 1.009 (1.005-1.030); Urine Appearance Clear (CLEAR); Urine Color Yellow (Yellow); Urobilinogen Urine 0.2 mg/dL (Negative)
[2025-02-26 20:15] LABS: Add Urine Microscopic? YES; Bacteria Urine None Seen /hpf; Hyaline Casts Urine 2.05 /lpf; RBC Urine 0-2 /hpf (0-2); Squamous Epithelial Cell Urine 0-5 /hpf (0-5); WBC Urine 0-5 /hpf (0-5)
--- NOTE | 2025-02-26 20:20 | ECG_ITS ---
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 Measurements Intervals [place] Rate: 64 P: 0 CT: 0 QRS: 96 QRSD: 89 T: 69 QT: 415 QTc: 429 Interpretive Statements ATRIAL FIBRILLATION BORDERLINE RIGHT AXIS DEVIATION [QRS AXIS > 90] LOW QRS VOLTAGE IN PRECORDIAL LEADS [QRS DEFLECTION < 1.0 mV IN CHEST LEADS] ANTEROSEPTAL MYOCARDIAL INFARCTION , OF INDETERMINATE AGE [40+ ms Q WAVE IN V1-V4] Compared to ECG 02/26/2025 18:07:50 No significant changes Electronically Signed On 02-27-2025 21:46:30 CDT by Odin Eddy M.D. [email or web address]
[2025-02-26 20:44] LABS: Troponin 5 2HR 59.91 ng/L (0-15)
[2025-02-26 20:46] LABS: Troponin 5 2HR Delta -3.09 ABS# (0-10)
== END 2025-02-27 00:31 | disposition home or self-care (01) ==
PROVIDERS: Emergency Provider Physician Assistant; PCP Nurse Practitioner Family
DX: K76.82 Hepatic encephalopathy (principal); Z11.52 Encounter for screening for COVID-19; Z79.82 Long term (current) use of aspirin; Z87.891 Personal history of nicotine dependence; J44.9 Chronic obstructive pulmonary disease, unspecified; I13.0 Hypertensive heart and chronic kidney disease with heart failure and stage 1 through stage 4 chronic kidney disease, or unspecified chronic kidney disease; N18.9 Chronic kidney disease, unspecified; I50.9 Heart failure, unspecified
CPT/HCPCS: 36415; 71045; 80053; 81001; 82140; 83605; 83735; 83880; 84484; 85025; 87637; 93005; 99285; J9999

== ENCOUNTER 2025-03-17 13:06 | Inpatient (IN) | payer MEDICARE, MEDICAID, SELFPAY ==
--- OUTSIDE RECORDS SUMMARY | 2025-01-26 08:45 | XMS_ITS ---
Author Organization [facility] Address [address] [place] [address] Care Team Providers Care Monomer Recovery Operator Name Role Phone Sherice, Karen Unavailable [phone] Scotty Steward JR Unavailable [phone] REASON FOR VISIT [id number] 2 week f/u - Stasis dermatitis Encounters Encounter Location Date Provider Diagnosis [facility] [address] [place] [address] 01/26/2025 Scotty Steward Non-pressure chronic ulcer of right lower leg, unspecified ulcer stage L97.919 ; Chronic venous stasis dermatitis I87.2 ; Venous insufficiency (chronic) (peripheral) I87.2 ; Non-pressure chronic ulcer of right calf with fat layer exposed L97.212 and Morbid obesity E66.01 Assessments Encounter Date Diagnosis (ICD Code) Assessment Notes Treatment Notes Treatment Clinical Notes Section Notes 01/26/2025 Non-pressure chronic ulcer of right lower leg, unspecified ulcer stage (ICD-10 - L97.919) 1. 59 yo white male with a history of alcoholic cirhosis with varices, A. fib., COPD, Charcot foot, and morbid obesity 2. Severe bilateral LE stasis dermatitis, with large stasis related RLE ulceration, and secondary limb threatening SSTI - Dermatitis: weight loss, diuresis (though legs look good today, trace only edema) - continue compression stockings - juxta lite compression - Continue Prednisone 5 mg 1 QD 3. Secondarily infected ulceration Improved with antibiotics and steroids - 12-09-24; WC MRSA, Enterococcus faecalis (S: Amp, and Vanco)-CRP is improving, so we know wound healing is occuring - Completed #14 zyvox (01-10-25)(cover s both the enterococcus, and the MRSA, and he is allergic to PCN's), and doxy as it has anti-inflammato ry effects (blocks MMPs) leading to improved wound healing times 4. Antibiotics; Completed 14 days of Zyvox, doxy (completed 01-10-25) - 01-26-25 continue doxycycline 100 twice daily (01-12-25) Duration depends on wound healing/Patient response 5. Morbid obesity - Could not procure Ozempic outpatient, will work with family caseworker to see if Victoza is an option Labs 01-12-25 W 9.8, Complaint Analyst 1.28, CRP 2.75, PLT 145, Hgb 6.1, RBC 2.00, HCT 18.8 Follow up; Laura Ulrich 01/26/2025 Chronic venous stasis dermatitis (ICD-10 - I87.2) 1. 59 yo white male with a history of alcoholic cirhosis with varices, A. fib., COPD, Charcot foot, and morbid obesity 2. Severe bilateral LE stasis dermatitis, with large stasis related RLE ulceration, and secondary limb threatening SSTI - Dermatitis: weight loss, diuresis (though legs look good today, trace only edema) - continue compression stockings - juxta lite compression - Continue Prednisone 5 mg 1 QD 3. Secondarily infected ulceration Improved with antibiotics and steroids - 12-09-24; MRSA, Enterococcus faecalis (S: Amp, and Vanco)-CRP is improving, so we know wound healing is occuring - Completed #14 zyvox (01-10-25)(cover s both the enterococcus, and the MRSA, and he is allergic to PCN's), and doxy as it has anti-inflammato ry effects (blocks MMPs) leading to improved wound healing times 4. Antibiotics; Completed 14 days of Zyvox, doxy (completed 01-10-25) - 01-26-25 continue doxycycline 100 twice daily (01-12-25) Duration depends on wound healing/Patient response 5. Morbid obesity - Could not procure Ozempic outpatient, will work with family caseworker to see if Victoza is an option Labs 01-12-25 W 9.8, Complaint Analyst 1.28, CRP 2.75, PLT 145, Hgb 6.1, RBC 2.00, HCT 18.8 Follow up; Laura Sandhu [facility] 01/26/2025 Venous insufficiency (chronic) (peripheral) (ICD-10 - I87.2) 1. 59 yo white male with a history of alcoholic cirhosis with varices, A. fib., COPD, Charcot foot, and morbid obesity 2. Severe bilateral LE stasis dermatitis, with large stasis related RLE ulceration, and secondary limb threatening SSTI - Dermatitis: weight loss, diuresis (though legs look good today, trace only edema) - continue compression stockings - juxta lite compression - Continue Prednisone 5 mg 1 QD 3. Secondarily infected ulceration Improved with antibiotics and steroids - 12-09-24; WC MRSA, Enterococcus faecalis (S: Amp, and Vanco)-CRP is improving, so we know wound healing is occuring - Completed #14 zyvox (01-10-25)(cover s both the enterococcus, and the MRSA, and he is allergic to PCN's), and doxy as it has anti-inflammato ry effects (blocks MMPs) leading to improved wound healing times 4. Antibiotics; Completed 14 days of Zyvox, doxy (completed 01-10-25) - 01-26-25 continue doxycycline 100 twice daily (01-12-25) Duration depends on wound healing/Patient response 5. Morbid obesity - Could not procure Ozempic outpatient, will work with family caseworker to see if Victoza is an option Labs 01-12-25 W 9.8, Complaint Analyst 1.28, CRP 2.75, PLT 145, Hgb 6.1, RBC 2.00, HCT 18.8 Follow up; Laura Sandhu Ulrich 01/26/2025 Non-pressure chronic ulcer of right calf with fat layer exposed (ICD-10 - L97.212) 1. 59 yo white male with a history of alcoholic cirhosis with varices, A. fib., COPD, Charcot foot, and morbid obesity 2. Severe bilateral LE stasis dermatitis, with large stasis related RLE ulceration, and secondary limb threatening SSTI - Dermatitis: weight loss, diuresis (though legs look good today, trace only edema) - continue compression stockings - juxta lite compression - Continue Prednisone 5 mg 1 QD 3. Secondarily infected ulceration Improved with antibiotics and steroids - 12-09-24; WC MRSA, Enterococcus faecalis (S: Amp, and Vanco)-CRP is improving, so we know wound healing is occuring - Completed #14 zyvox (01-10-25)(cover s both the enterococcus, and the MRSA, and he is allergic to PCN's), and doxy as it has anti-inflammato ry effects (blocks MMPs) leading to improved wound healing times 4. Antibiotics; Completed 14 days of Zyvox, doxy (completed 01-10-25) - 01-26-25 continue doxycycline 100 twice daily (01-12-25) Duration depends on wound healing/Patient response 5. Morbid obesity - Could not procure Ozempic outpatient, will work with family caseworker to see if Victoza is an option Labs 01-12-25 W 9.8, Complaint Analyst 1.28, CRP 2.75, PLT 145, Hgb 6.1, RBC 2.00, HCT 18.8 Follow up; Laura Ulrich 01/26/2025 Morbid obesity (ICD-10 - E66.01) 1. 59 yo white male with a history of alcoholic cirhosis with varices, A. fib., COPD, Charcot foot, and morbid obesity 2. Severe bilateral LE stasis dermatitis, with large stasis related RLE ulceration, and secondary limb threatening SSTI - Dermatitis: weight loss, diuresis (though legs look good today, trace only edema) - continue compression stockings - juxta lite compression - Continue Prednisone 5 mg 1 QD 3. Secondarily infected ulceration Improved with antibiotics and steroids - 12-09-24; WC MRSA, Enterococcus faecalis (S: Amp, and Vanco)-CRP is improving, so we know wound healing is occuring - Completed #14 zyvox (01-10-25)(cover s both the enterococcus, and the MRSA, and he is allergic to PCN's), and doxy as it has anti-inflammato ry effects (blocks MMPs) leading to improved wound healing times 4. Antibiotics; Completed 14 days of Zyvox, doxy (completed 01-10-25) - 01-26-25 continue doxycycline 100 twice daily (01-12-25) Duration depends on wound healing/Patient response 5. Morbid obesity - Could not procure Ozempic outpatient, will work with family caseworker to see if Victoza is an option Labs 01-12-25 W 9.8, Complaint Analyst 1.28, CRP 2.75, PLT 145, Hgb 6.1, RBC 2.00, HCT 18.8 Follow up; Laura Ulrich Plan Of Treatment Pending Test Test Name Order Date CBC w\ Auto Diff [id number] 01/26/2025 Comprehensive Metabolic Panel (CMP) 8005 3 01/26/2025 CRP [id number] 01/26/2025 Progress Notes * Yosvany MÉNDEZ SDOB:1964 (59 yo M)Acc No.[id number]:01/26/2025 Progress Notes Patient: Yosvany AUGUSTE Provider: Gracia Steward MD :1965 A ge:59 Y S ex:Male Date:01/26/2025 Address:[address] [place] [address], [place] [id number] Subjective: * Chief Complaints: * 1 . [id number] 2 week f/u - Stasis dermatitis. * HPI: P paolo Note: U -01-12-2025 (seen by Sherice MALIK) The patient is 59 year old white male with a history of alcoholic cirhosis with varices, A. fib., COPD, charcot foot, and morbid obesity. Presented to the emergency room with increased lower extremity edema and pain in his right hip. He was hospitalized last month due to left lower extremity cellulitis. He believed the left leg was worse, and that the problem has progressed to the the right hip. His weight has led to his immobility and he is a resident at the [facility]. He has never been on weight loss medications. Dr. Steward was consulted he was treated for stasis dermatitis/stasis ulceration and limb threatening skin and soft tissue infection. He was discharged to the facility on Zyvox and doxycycline. He has completed his antibiotics. He reports his insurance is not covering the Ozempic, and he is trying to get juxta lite compression stockings. 01-26-25;. * Medical History: Objective: * Vitals: Assessment: * Assessment: 1. N on-pressure chronic ulcer of right lower leg, unspecified ulcer stage - L97.919 (Primary)? 2. C hronic venous stasis dermatitis - I87.2 3 . V enous insufficiency (chronic) (peripheral) - I87.2 4 . N on-pressure chronic ulcer of right calf with fat layer exposed - L97.212 5 . M orbid obesity - E66.01 ? 1. 59 yo white male with a h istory of alcoholic cirhosis with varices, A. fib., COPD, Charcot foot, and morbid obesity 2. Severe bilateral LE stasis dermatitis, with large stasis related RLE ulceration, and secondary limb threatening SSTI - Dermatitis: weight loss, diuresis (though legs look good today, trace only edema) - continue compression stockings - juxta lite compression - Continue Prednisone 5 mg 1 QD 3. Secondarily infected ulceration Improved with antibiotics and steroids - 12-09-24; WC MRSA, Enterococcus faecalis (S: Amp, and Vanco)-CRP is improving, so we know wound healing is occuring - Completed #14 zyvox (01-10-25)(covers both the enterococcus, and the MRSA, and he is allergic to PCN's), and doxy as it has anti-inflammatory effects (blocks MMPs) leading to improved wound healing times 4. Antibiotics; Completed 14 days of Z yvox, doxy (completed 01-10-25) - 01-26-25 continue doxycycline 100 twice daily (01-12-25) Duration depends on wound healing/Patient response 5. Morbid obesity - Could not procure Ozempic outpatient, will work with family caseworker to see if Victoza is an option Labs 01-12-25 W 9.8, Complaint Analyst 1.28, CRP 2.75, PLT 145,Hgb 6.1, RBC 2.00, HCT 18.8 Follow up; Laura Ulrich Plan: * Treatment: Forms: * Billing Information: * Visit Code: * Procedure Codes: Care Plan Details* * Electronic signature of Bryan Steward JR, MD on 03/17/2025 at 01:16 PM CDT Sign off status: Pending * Provider: Gracia Steward MD Date: 0 01/26/2025 Generated for Rafai gerhard/Radha/eTtensmitting on: 03/17/2025 01:16 PM CDT
--- OUTSIDE RECORDS SUMMARY | 2025-02-09 09:30 | XMS_ITS ---
Author Organization [facility] Address [address] [place] [address] Care Team Providers Care Strawberry Grower Name Role Phone Karen Smiley Unavailable [phone] Scotty Steward JR Unavailable [phone] REASON FOR VISIT [phone] 2 week f/u - Stasis dermatitis Medications Medication SIG (Take, Route, Frequency, Duration) Notes Start Date End Date Status Guar Gum - as directed Active Doxycycline Hyclate 100 MG 1 capsule Orally BID Active predniSONE 10 MG 1 tablet with food o r milk Orally BID 01/12/2025 Active Linezolid 600 MG 1 tablet Orally ever y 12 hrs Active Nicotine Step 2 14 MG/24HR 1 patch to sk in Transdermal Once a day Active Amiodarone HCl 200 MG 1 tablet Orally On ce a day Active Ammonium Lactate 12 % 1 application Exte rnally Twice a day Active Al Hyd-Mg Tr-Alg Ac-Sod Bicarb Active Alfuzosin HCl ER 10 MG 1 tablet immediat kaylynn after the same meal Orally Once a day Active Tylenol 325 MG 1 tablet as needed Orally every 6 hrs Active Ascorbic Acid 1000 MG 1 tablet Orally On ce a day Active Aspirin 81 81 MG 1 tablet Orally Once a day Active Apixaban 5 MG as directed Orally BID Active Baclofen 10 MG 1 tablet as needed Orally Twice a day Active Clotrimazole-Betamethasone 1-0.05 % 1 application Externally Twice a day Active Cholecalciferol 25 MCG (1000 UT) 1 capsule Orally Once a day Active Calcium Carbonate 600 MG 1 tablet with f ood Orally Twice a day Active Cetirizine HCl 10 MG 1 tablet Orally Onc e a day Active Bisacodyl 5 MG 4 tablets Orally Onc e a day 01/12/2025 Active Bumetanide 1 MG 1 tablet Orally BID 01/12/2025 Active Ferrous Sulfate 325 (65 Fe) MG 1 tablet Orally every other day 01/12/2025 Active Fluticasone Propionate 50 MCG/ACT 1 spray in each nostril Nasally Twice a day Active Docusate Sodium 100 MG 1 capsule as need ed Orally Once a day Active dilTIAZem HCl 120 MG as directed Orally Active Gabapentin 100 MG 1 capsule at bedtime Orally TID 01/12/2025 Active Magnesium Hydroxide 1200 MG as directed Orally Active Midodrine HCl 5 MG 1 tablet Orally TID 01/12/2025 Active levETIRAcetam 1000 MG 1 tablet Orally ev tori 12 hrs Active Levothyroxine Sodium 50 MCG 1 tablet in the morning on an empty stomach Orally Once a day Active Lactulose 10 GM/15ML 15 mL as needed Ora lly Once a day Active Refresh Active Ondansetron HCl 8 MG 1 tablet as needed Orally every 8 hours 01/12/2025 Active Vitamin B Complex Ac tive PreserVision AREDS A ctive Mineral Oil Active traMADol HCl 100 MG 1 tablet as needed Orally BID 01/12/2025 Active Saccharomyces boulardii 250 MG as directed Orally Active Spironolactone 50 MG 1 tablet Orally Onc e a day Active Polyethylene Glycol 3350 17 GM/SCOOP 1 scoop mixed with 8 ounces of fluid Orally Once a day Active Potassium Chloride ER 20 MEQ 1 tablet wi th food Orally Once a day Active Encounters Encounter Location Date Provider Diagnosis [facility] [address] [place] [id number] 02/09/2025 Scotty Steward Non-pressure chronic ulcer of right lower leg, unspecified ulcer stage L97.919 ; Chronic venous stasis dermatitis I87.2 ; Venous insufficiency (chronic) (peripheral) I87.2 ; Non-pressure chronic ulcer of right calf with fat layer exposed L97.212 and Morbid obesity E66.01 Assessments Encounter Date Diagnosis (ICD Code) Assessment Notes Treatment Notes Treatment Clinical Notes Section Notes 02/09/2025 Non-pressure chronic ulcer of right lower leg, unspecified ulcer stage (ICD-10 - L97.919) 1. 59 yo white male with a history of alcoholic cirrhosis with varices, A. fib., COPD, Charcot foot, and morbid obesity 2. Severe bilateral LE stasis dermatitis, with large stasis related RLE ulceration, and secondary limb threatening SSTI - Dermatitis: weight loss, diuresis (though legs look good today, trace only edema) compression stockings - Order juxta lite compression - Continue Prednisone 5 mg QD 3. Secondarily infected ulceration Improved with [...] leading to improved wound healing times 4. Antibiotics day #14: Zyvox, doxy (completed 01-10-25) -02-09-25 continue Doxycycline 100 twice daily (01-12-25) Duration depends on wound healing/Patient response 5. Morbid obesity - Could not procure Ozempic outpatient, will work with case specialist to see if Victoza is an option Labs 01-12-25 W 9.8, Dredge Pipe Operator 1.28, CRP 2.75 Follow up; Laura Ulrich 02/09/2025 Chronic venous stasis dermatitis (ICD-10 - I87.2) 1. 59 yo white male with a history of alcoholic cirrhosis with varices, A. fib., COPD, Charcot foot, and morbid obesity 2. Severe bilateral LE stasis dermatitis, with large stasis related RLE ulceration, and secondary limb threatening SSTI - Dermatitis: weight loss, diuresis (though legs look good today, trace only edema) compression stockings - Order juxta lite compression - Continue Prednisone 5 mg QD 3. Secondarily infected ulceration Improved with [...] leading to improved wound healing times 4. Antibiotics day #14: Zyvox, doxy (completed 01-10-25) -02-09-25 continue Doxycycline 100 twice daily (01-12-25) Duration depends on wound healing/Patient response 5. Morbid obesity - Could not procure Ozempic outpatient, will work with case specialist to see if Victoza is an option Labs 01-12-25 W 9.8, Dredge Pipe Operator 1.28, CRP 2.75 [facility] 02/09/2025 Venous insufficiency (chronic) (peripheral) (ICD-10 - I87.2) 1. 59 yo white male with a history of alcoholic cirrhosis with varices, A. fib., COPD, Charcot foot, and morbid obesity 2. Severe bilateral LE stasis dermatitis, with large stasis related RLE ulceration, and secondary limb threatening SSTI - Dermatitis: weight loss, diuresis (though legs look good today, trace only edema) compression stockings - Order juxta lite compression - Continue Prednisone 5 mg QD 3. Secondarily infected ulceration Improved with [...] leading to improved wound healing times 4. Antibiotics day #14: Zyvox, doxy (completed 01-10-25) -02-09-25 continue Doxycycline 100 twice daily (01-12-25) Duration depends on wound healing/Patient response 5. Morbid obesity - Could not procure Ozempic outpatient, will work with case specialist to see if Victoza is an option Labs 01-12-25 W 9.8, Dredge Pipe Operator 1.28, CRP 2.75 Follow up; Laura Sandhu Ulrich 02/09/2025 Non-pressure chronic ulcer of right calf with fat layer exposed (ICD-10 - L97.212) 1. 59 yo white male with a history of alcoholic cirrhosis with varices, A. fib., COPD, Charcot foot, and morbid obesity 2. Severe bilateral LE stasis dermatitis, with large stasis related RLE ulceration, and secondary limb threatening SSTI - Dermatitis: weight loss, diuresis (though legs look good today, trace only edema) compression stockings - Order juxta lite compression - Continue Prednisone 5 mg QD 3. Secondarily infected ulceration Improved with [...] leading to improved wound healing times 4. Antibiotics day #14: Zyvox, doxy (completed 01-10-25) -02-09-25 continue Doxycycline 100 twice daily (01-12-25) Duration depends on wound healing/Patient response 5. Morbid obesity - Could not procure Ozempic outpatient, will work with case specialist to see if Victoza is an option Labs 01-12-25 W 9.8, Dredge Pipe Operator 1.28, CRP 2.75 Follow up; Laura Ulrich 02/09/2025 Morbid obesity (ICD-10 - E66.01) 1. 59 yo white male with a history of alcoholic cirrhosis with varices, A. fib., COPD, Charcot foot, and morbid obesity 2. Severe bilateral LE stasis dermatitis, with large stasis related RLE ulceration, and secondary limb threatening SSTI - Dermatitis: weight loss, diuresis (though legs look good today, trace only edema) compression stockings - Order juxta lite compression - Continue Prednisone 5 mg QD 3. Secondarily infected ulceration Improved with [...] leading to improved wound healing times 4. Antibiotics day #14: Zyvox, doxy (completed 01-10-25) -02-09-25 continue Doxycycline 100 twice daily (01-12-25) Duration depends on wound healing/Patient response 5. Morbid obesity - Could not procure Ozempic outpatient, will work with case specialist to see if Victoza is an option Labs 01-12-25 W 9.8, Dredge Pipe Operator 1.28, CRP 2.75 Follow up; Laura Ulrich Plan Of Treatment Pending Test Test Name Order Date CBC w\ Auto Diff [id number] 02/09/2025 Comprehensive Metabolic Panel (CMP) 8005 3 02/09/2025 CRP [id number] 02/09/2025 Progress Notes * Yosvany MÉNDEZ SDOB:1964 (59 yo M)Acc No.[id number]:02/09/2025 Progress Notes Patient: Yosvany AUGUSTE Provider: Gracia Steward MD :1965 A ge:59 Y S ex:Male Date:02/09/2025 Address:[address] [place] [address], [facility] Subjective: * Chief Complaints: * 1 . [id number] 2 week f/u - Stasis dermatitis. * HPI: P paolo Note: HFU 01-12-25 b y Karen Smiley APRN- The patient is 59 year old white [...] and he is a resident at the [facility]. He has never been on weight loss medications. Dr. Steward was consulted he was treated for stasis dermatitis/stasis ulceration and limb threatening skin and soft tissue infection. He was discharged to the facility on Zyvox and doxycycline. He has completed his antibiotics. He reports his insurance is not covering the Ozempic, and he is trying to get juxta lite compression stockings. 02-09-25;. * Medical History: * Medications: T aking traMADol HCl 100 MG Tablet 1 tablet as needed Orally BID , Taking Spironolactone 50 MG Tablet 1 tablet Orally Once a day , Taking Saccharomyces boulardii 250 MG Capsule as directed Orally , Taking Potassium Chloride ER 20 MEQ Tablet Extended Release 1 tablet with food Orally Once a day , Taking Polyethylene Glycol 3350 17 GM/SCOOP Powder 1 scoop mixed with 8 ounces of fluid Orally Once a day , Taking Ondansetron HCl 8 MG Tablet 1 tablet as needed Orally every 8 hours , Taking Refresh , Taking PreserVision AREDS , Taking Vitamin B Complex , Taking Mineral Oil , Taking Midodrine HCl 5 MG Tablet 1 tablet Orally TID , Taking Magnesium Hydroxide 1200 MG Tablet as directed Orally , Taking Levothyroxine Sodium 50 MCG Tablet 1 tablet in the morning on an empty stomach Orally Once a day , Taking levETIRAcetam 1000 MG Tablet 1 tablet Orally every 12 hrs , Taking Lactulose 10 GM/15ML Solution 15 mL as needed Orally Once a day , Taking Gabapentin 100 MG Capsule 1 capsule at bedtime Orally TID , Taking Fluticasone Propionate 50 MCG/ACT Suspension 1 spray in each nostril Nasally Twice a day , Taking Ferrous Sulfate 325 (65 Fe) MG Tablet 1 tablet Orally every other day , Taking Docusate Sodium 100 MG Capsule 1 capsule as needed Orally Once a day , Taking dilTIAZem HCl 120 MG Tablet as directed Orally , Taking Cholecalciferol 25 MCG (1000 UT) Capsule 1 capsule Orally Once a day , Taking Cetirizine HCl 10 MG Tablet 1 tablet Orally Once a day , Taking Calcium Carbonate 600 MG Tablet 1 tablet with food Orally Twice a day , Taking Bumetanide 1 MG Tablet 1 tablet Orally BID , Taking Bisacodyl 5 MG Tablet Delayed Release 4 tablets Orally Once a day , Taking Clotrimazole-Betamethasone 1-0.05 % Cream 1 application Externally Twice a day , Taking Baclofen 10 MG Tablet 1 tablet as needed Orally Twice a day , Taking Aspirin 81 81 MG Tablet Delayed Release 1 tablet Orally Once a day , Taking Ascorbic Acid 1000 MG Tablet 1 tablet Orally Once a day , Taking Apixaban 5 MG Tablet as directed Orally BID , Taking Ammonium Lactate 12 % Lotion 1 application Externally Twice a day , Taking Amiodarone HCl 200 MG Tablet 1 tablet Orally Once a day , Taking Alfuzosin HCl ER 10 MG Tablet Extended Release 24 Hour 1 tablet immediately after the same meal Orally Once a day , Taking Al Hyd-Mg Tr-Alg Ac- Sod Bicarb , Taking Tylenol 325 MG Tablet 1 tablet as needed Orally every 6 hrs , Taking predniSONE 10 MG Tablet 1 tablet with food or milk Orally BID , Taking Nicotine Step 2 14 MG/24HR Patch 24 Hour 1 patch to skin Transdermal Once a day , Taking Linezolid 600 MG Tablet 1 tablet Orally every 12 hrs , Taking Guar Gum - Powder as directed , Taking Doxycycline Hyclate 100 MG Capsule 1 capsule Orally BID Objective: * Vitals: Assessment: * Assessment: 1. [...] male with a h istory of alcoholic cirrhosis with varices, A. fib., COPD, Charcot foot, and morbid obesity 2. Severe bilateral LE stasis dermatitis, with large stasis related RLE ulceration, and secondary limb threatening SSTI - Dermatitis: weight loss, diuresis (though legs look good today, trace only edema) compression stockings - Order juxta lite compression - Continue Prednisone 5 mg QD 3. Secondarily infected ulceration Improved with antibiotics and steroids - 12-09-24; WC MRSA, Enterococcus faecalis (S: Amp, and Vanco)-CRP is improving, so we know wound healing is occuring - Completed #14 zyvox (01-10-25)(covers both the enterococcus, and the MRSA, and he is allergic to PCN's), and doxy as it has anti-inflammatory effects (blocks MMPs) leading to improved wound healing times 4. Antibiotics day #14: Zyvox, doxy (completed 01-10-25) -02-09-25 continue Doxycycline 100 twice daily (01-12-25) Duration depends on wound healing/Patient response 5. Morbid obesity - Could not procure Ozempic outpatient, will work with case specialist to see if Victoza is an option Labs 01-12-25 W 9.8, Dredge Pipe Operator 1.28, CRP 2.75 Follow up; Laura Ulrich Plan: * Treatment: Forms: * Billing Information: * Visit Code: * Procedure Codes: Care Plan Details* * Electronic signature of Bryan Steward JR, MD on 03/17/2025 at 01:16 PM CDT Sign off status: Pending * Provider: Gracia Steward MD Date: 02/09/2025 Generated for Lisa hennessy/Radha/Bin on: 03/17/2025 01:16 PM CDT
--- NOTE | 2025-03-17 13:11 | XR_ITS ---
WS: [id number] XR chest 1V portable [id number] REASON FOR EXAM: chest pain FINDINGS: Chest is unchanged compared to the examination of 02/16/2025. Prominent mediastinum and mild cardiomegaly. Mild to moderate tortuosity and ectasia of the thoracic aorta. Congestion of the central pulmonary veins. No acute pulmonary parenchymal or pleural disease. 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 XR/XR chest 1V portable [id number] IMPRESSION: Chest is stable compared to the previous examination 02/26/2025. Cardiomegaly with mild central venous congestion. No acute abnormality identifi ed.
--- NOTE | 2025-03-17 13:13 | ECG_ITS ---
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
[2025-03-17 13:14] VITALS: BP 131/95; PULSE 74; RESP 17; TEMP 36.5; O2SAT 100; BMI 41.1
--- NOTE | 2025-03-17 13:14 | W.ED.CHESTPA ---
HPI - Chest Pain General: Chief Complaint: Chest Pain Stated Complaint: chest pain Time Seen by Provider: 03/17/25 13:11 History of Present Illness: 59-year-old male presents to the emergency room from [facility] with chest pain that he relates began about 630 this morning when he first woke up radiates into his neck and into his back he is most concerned about the pain in his neck and across his shoulder blades. Associated symptoms: Deny abdominal pain, dyspnea or fever(s) Related Data Home Medications ?Medication ?Instructions ?Recorded ?Confirmed vitamin B complex (Vitamins B 1 tab PO DAILY@01/04/20 03/17/25 Complex tablet) fluticasone propionate 50 2 spray intranasal DAILY@09/08/20 03/17/25 mcg/actuation nasal spray,suspension (Flonase Allergy Relief) albuterol sulfate 90 mcg/actuation 1 puff inhalation Q4H PRN 12/11/20 03/17/25 aerosol inhaler shortness of breath/wheezing diltiazem HCl 120 mg 120 mg PO DAILY@04/24/21 03/17/25 capsule,extended release 24 hr (Cardizem CD) cetirizine 10 mg tablet (Zyrtec) 10 mg PO DAILY@05/24/21 03/17/25 levothyroxine 50 mcg tablet 50 mcg PO DAILY@08/15/21 03/17/25 midodrine 5 mg tablet 5 mg PO TID 09/01/21 03/17/25 potassium chloride 20 mEq 20 meq PO BID@,09/01/21 03/17/25 tablet,extended release gabapentin 100 mg capsule 100 mg PO TID 10/20/21 03/17/25 levetiracetam 500 mg tablet 1,000 mg PO BID 12/24/21 03/17/25 alfuzosin 10 mg tablet,extended 10 mg PO DAILY@11/04/22 03/17/25 release 24 hr spironolactone 50 mg tablet 100 mg PO DAILY@11/04/22 03/17/25 acetaminophen 325 mg tablet 325 - 650 mg PO Q4H PRN Pain 04/19/23 03/17/25 (Tylenol) aluminum-mag hydroxide-simethicone 30 ml PO QID PRN Constipation 10/05/24 03/17/25 400 mg-400 mg-40 mg/5 mL oral susp (Mylanta Maximum Strength) bisacodyl 5 mg tablet,delayed 5 mg PO DAILY 10/05/24 03/17/25 release bumetanide 1 mg tablet 2 mg PO BID 10/05/24 03/17/25 docusate sodium 100 mg capsule 100 mg PO DAILY 10/05/24 03/17/25 phenylephrine 0.25 %-mineral oil 1 applic PA Q6H 10/05/24 03/17/25 14 %-petrolatm 74.9 % rectal ointment (Preparation H) polyethylene glycol 3350 17 17 g PO DAILY 10/05/24 03/17/25 gram/dose oral powder (Miralax) naloxone 4 mg/actuation nasal 4 mg intranasal Q2M PRN Allergic 02/08/25 03/17/25 spray (Narcan) Symptoms lactulose 10 gram/15 mL oral 45 g PO QID hepatic encephalopathy 03/05/25 03/17/25 solution Saccharomyces boulardii 10 billion 10,000 mmu cells PO DAILY 03/17/25 03/17/25 cell capsule amiodarone 200 mg tablet 200 mg PO DAILY 03/17/25 03/17/25 ammonium lactate 12 % lotion 1 applic topical BID 03/17/25 03/17/25 baclofen 10 mg tablet 10 mg PO BID 03/17/25 03/17/25 calcium carbonate 1,000 mg PO DAILY 03/17/25 03/17/25 carboxymethylcellulose sodium 0.5 1 drp ophthalmic (eye) DAILY dry 03/17/25 03/17/25 % eye drops (Refresh Tears) eyes dextran 70-hypromellose eye drops 1 drp ophthalmic (eye) QID PRN dry 03/17/25 03/17/25 in a dropperette (Artificial Tears eyes (PF) drops in a dropperette) magnesium hydroxide 400 mg/5 mL 30 ml PO DAILY PRN constipation 03/17/25 03/17/25 oral suspension (Milk of Magnesia) ondansetron HCl 8 mg tablet 8 mg PO Q8H 03/17/25 03/17/25 sodium phosphates 19 gram-7 118 ml PA DAILY PRN Constipation 03/17/25 03/17/25 gram/118 mL enema (Fleet Enema) thiamine mononitrate (vit B1) 100 100 mg PO DAILY 03/17/25 03/17/25 mg tablet tramadol 50 mg tablet 100 mg PO TID PRN pain 03/17/25 03/17/25 Previous Rx's ?Medication ?Instructions ?Recorded CAM BOOT #1 ea 05/08/23 Wheel chair with elevated foot #1 ea 06/19/23 rests and seat cushion ascorbic acid (vitamin C) 1,000 mg 1,000 mg PO Q12H 30 days #60 tabs 11/27/23 tablet,extended release cholecalciferol (vitamin D3) 25 25 mcg PO DAILY 30 days #30 caps 11/27/23 mcg (1,000 unit) capsule Kenaitze Boot for the Right Foot #1 ea 03/11/24 Allergies Allergy/AdvReac Type Severity Reaction Status Date / Time Penicillins Allergy Severe ALGY-Difficulty Verified 10/15/24 07:22 Breathing Sulfa (Sulfonamide Allergy Severe ALGY-Swell Verified 10/15/24 07:22 Antibiotics) Lip/Tongue/Throat Review of Systems Const: Denies: fever(s) or chills Card: Reports: chest pain, edema and swelling of feet/ankles Resp: Denies: dyspnea GI: Denies: abdominal pain : Denies: dysuria, urinary frequency or urinary urgency Musc: Denies: neck pain or back pain Skin/Breast: Denies: rash PFSH ED PFSH: Medical History (Updated 03/18/25 @ 06:22 by Ghassan Cedeno DO) Chronic kidney disease Physical deconditioning Unspecified atrial flutter Alcoholic polyneuropathy Advanced chronic obstructive pulmonary disease Hepatic failure, unspecified without coma Chronic atrial fibrillation, unspecified Hypothyroidism Urinary tract infection BMI 50.0-59.9, adult Acute hepatic encephalopathy Hypertension COPD (chronic obstructive pulmonary disease) History of peritonitis Morbid obesity Contraindication to deep vein thrombosis (DVT) prophylaxis Splenomegaly Portal hypertension Esophageal varices PVD (peripheral vascular disease) Seizure Stereotyped movements Anasarca CHF (congestive heart failure) Echocardiogram done in 2019 shows an EF of 40 to 45% with hypokinetic septum, anteroseptum and inferior wall, biatrial enlargement Encephalopathy, hepatic Upper gastrointestinal hemorrhage due to gastritis EGD with pyloric ulcer in 05/2021 Occult blood in stools Peritoneal dialysis catheter in situ Removed in 05/2021 due to recurrent bacterial peritonitis Anemia Alcoholic cirrhosis of liver with ascites Hepatorenal syndrome BPH loc w urin obs/LUTS C. difficile diarrhea Chronic hyponatremia varies with volume status Pleural effusion associated with hepatic disorder Pneumonia Fracture of fourth metatarsal bone of left foot Fracture of third metatarsal bone of left foot Fracture of second metatarsal bone of left foot Non-pressure chronic ulcer of other part of left foot limited to breakdown of skin Charcot's joint of left foot Atrial fibrillation and flutter Ataxia Hx of esophageal varices Charcot's arthropathy left foot Neuropathy PVD (peripheral vascular disease) End-stage liver disease not a candidate for transplant or tips at last evaluation Erectile dysfunction Peyronie disease Surgical History Status post surgery (07/05/20) peritoneal catheter for ascites History of tonsillectomy H/O colonoscopy H/O esophagogastroduodenoscopy History of abdominal paracentesis Hx of umbilical hernia repair Hx of vasectomy Family History Grandfather CAD (coronary artery disease) Grandmother CAD (coronary artery disease) Cancer Father Cancer Denies family history of Anesthesia complication Bleeding disorder Social History Smoking and tobacco/nicotine status: former use of tobacco/nicotine Substance/Drug Use: never 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 Marital status: Current occupational status: disabled Do you think of yourself as: Straight/Heterosexual Current gender identity: Male Physical Exam Const: GENERAL APPEARANCE: cooperative ORIENTATION/CONSCIOUSNESS: Yes awake, Yes oriented to person, Yes oriented to place and Yes oriented to time HENMT: COMMON NORMALS: normocephalic, atraumatic and hearing grossly normal bilaterally HEAD & SCALP: normocephalic and atraumatic Resp: COMMON NORMALS: normal respiratory effort, No retractions, No use of accessory muscles and clear to auscultation bilaterally AUSCULTATION: clear to auscultation bilaterally Cardio: COMMON NORMALS: regular rate, regular rhythm and No murmurs present (Cardio) RATE: regular rate RHYTHM: regular rhythm GI: COMMON NORMALS: Soft to palpation and No hepatosplenomegaly present AUSCULTATION: Yes normoactive bowel sounds PALPATION: Yes Soft to palpation, No Tenderness to palpation present (GI), No Guarding due to palpation present (GI) and Yes No hepatosplenomegaly present Extremity: COMMON NORMALS: normal to inspection, capillary refill normal, no clubbing, cyanosis or edema, no calf tenderness and no pedal edema Neuro: SENSORIUM/ORIENTATION: Yes oriented to person, Yes oriented to place and Yes oriented to time Skin: COMMON NORMALS: no rashes or lesions noted GENERAL SKIN EXAM: no rashes or lesions noted Course Vital Signs: Vital signs: Vital Signs Temperature 97.8 F 03/18/25 04:00 Pulse Rate 91 03/18/25 04:00 Respiratory Rate 20 H 03/18/25 04:00 Blood Pressure 113/73 03/18/25 04:00 Pulse Oximetry 98 03/18/25 04:00 Oxygen Delivery Me thod Room Air 03/18/25 04:00 MDM - Chest Pain Medical Decision Making Patient significantly fluid overloaded and extremities early congestive heart failure noted on his chest x-ray. He was given Lasix in the emergency room as blood pressure will need to be monitored closely has had issues with chronic kidney disease in the past when diuresed has developed worsening renal function. Will place on observation for diuresis medication adjustments to resolve his exacerbation of congestive heart failure Medical Records I reviewed the patient's medical records. Lab Data I reviewed the patient's lab results. 03/18/25 02:51 03/18/25 02:51 Radiology Impressions Chest X-Ray 03/17/25 13:11 IMPRESSION: Chest is stable compared to the previous examination 02/26/2025. Cardiomegaly with mild central venous congestion. No acute abnormality identified. Laboratory Results WBC 9.86 10^3/uL (3.29-11.43) 03/17/25 13:28 RBC 3.56 10^6/uL (3.85-5.65) L 03/17/25 13:28 Hgb 11.30 g/dL (11.27-16.99) 03/17/25 13:28 Hct 35.1 % (37-53) L 03/17/25 13:28 MCV 98.6 fl (82-101) 03/17/25 13:28 MCH 31.7 pg (27-33) 03/17/25 13:28 MCHC 32.2 g/dL (30-55) 03/17/25 13:28 RDW 17.8 % (12.1-15.1) H 03/17/25 13:28 Plt Count 208 10^3/cmm (157-399) 03/17/25 13:28 MPV 9.3 fL (7.4-10.4) 03/17/25 13:28 Neut % (Auto) 81.8 % 03/17/25 13:28 Lymph % (Auto) 5.9 % 03/17/25 13:28 [place] % (Auto) 9.5 % 03/17/25 13:28 Eos % (Auto) 1.5 % 03/17/25 13:28 Baso % (Auto) 0.8 % 03/17/25 13: Neut # (Auto) 8.06 10^3/uL (1.8-7.7) H 03/17/25 13:28 Lymph # (Auto) 0.6 10^3/uL (0.8-4.8) L 03/17/25 13:28 [place] # (Auto) 0.9 10^3/uL (0.2-0.9) 03/17/25 13:28 Eos # (Auto) 0.2 10^3/uL (0.0-0.8) 03/17/25 13:28 Baso # (Auto) 0.1 10^3/uL (0.0-0.1) 03/17/25 13: Nucleated RBC % (auto) 0 % 03/17/25 13: Nucleated RBCs # 0.0 /100WBC 03/17/25 13:28 Specimen Type Arterial 03/17/25 13:25 Sample Site Radial, right 03/17/25 13:25 ABG pH 7.47 (7.35-7.45) H 03/17/25 13:25 ABG pCO2 43.0 mmHg (35-45) 03/17/25 13:25 ABG pO2 84.2 mmHg (80.0-100.0) 03/17/25 13:25 ABG PO2/FiO2 Ratio 400 03/17/25 13:25 ABG HCO3 31.1 mmol/L (22-26) H 03/17/25 13:25 ABG O2 Saturation 95.5 03/17/25 13:25 ABG Base Excess 6.6 mmol/L (-2.0-2.0) H 03/17/25 13:25 Marcelo Test Pos 03/17/25 13:25 A-a O2 Gradient 1.6 mmHg (5-10) L 03/17/25 13:25 Hematocrit 36.4 % (42-52) L 03/17/25 13:25 Hgb O2 Saturation 93.8 % (95-100) L 03/17/25 13:25 Carboxyhemoglobin 1.1 %THgb (0.4-20.1) 03/17/25 13:25 Methemoglobin 0.6 % (0.4-1.5) 03/17/25 13:25 Total Hemoglobin 11.9 g/dL (14-18) L 03/17/25 13:25 Sodium 132.0 mmol/L (131-143) 03/17/25 13:25 Potassium 4.3 mmol/L (3.5-5.0) 03/17/25 13:25 Glucose 130.0 mg/dL (70-115) H 03/17/25 13:25 Ionized Calcium 1.2 mmol/L (1.1-1.4) 03/17/25 13:25 O2 Delivery Device Room air 03/17/25 13:25 FiO2 21.0 % 03/17/25 13:25 Veneer Press Operator ID [place] 03/17/25 13:25 Sodium 132 mmol/L (136-145) L 03/17/25 13:28 Potassium 4.3 mmol/L (3.5-5.1) 03/17/25 13:28 Chloride 90 mmol/L (98-107) L 03/17/25 13:28 Carbon Dioxide 30 mmol/L (22-29) H 03/17/25 13:28 Anion Gap 16.3 (5-19) 03/17/25 13:28 BUN 23 mg/dL (8-23) 03/17/25 13:28 Creatinine 1.2 mg/dL (0.7-1.2) 03/17/25 13:28 GFR Calculation 61.8 mL/min (90-130) L 03/17/25 13:28 Glucose 124 mg/dL (65-115) H 03/17/25 13:28 Calculated Osmolality 279 mOsm/kg (285-295) L 03/17/25 13:28 Calcium 9.9 mg/dL (8.5-10.5) 03/17/25 13:28 Total Bilirubin 0.7 mg/dL (0.15-1.2) 03/17/25 13:28 AST 27 U/L (0-40) 03/17/25 13:28 ALT 26 U/L (0-41) 03/17/25 13:28 Alkaline Phosphatase 117 U/L (40-130) 03/17/25 13:28 Ammonia 72 umol/L (16-60) H 03/17/25 13:28 Troponin T Baseline 38 ng/L (0-15) H 03/17/25 13:28 Troponin T 120 Minute 38.18 ng/L (0-15) H 03/17/25 15:25 Delta Troponin T 0.18 ABS# (0-10) 03/17/25 15:25 C-Reactive Protein 29.4 mg/L (0.0-4.9) H 03/17/25 13:28 NT-Pro-B Natriuret Pep 192 pg/mL (0-125) H 03/17/25 13:28 Total Protein 7.4 g/dL (6.6-8.7) 03/17/25 13:28 Albumin 3.4 g/dL (3.5-5.2) L 03/17/25 13:28 Globulin 4.0 g/dL (1.3-4.6) 03/17/25 13:28 TSH 4.81 uIU/mL (0.27-4.20) H 03/17/25 13:28 All radiology interpretation(s) finalized by discharge Discharge Plan Discharge Patient Disposition: Placed in Observation Admit Provider: Edita Orellana Clinical Impression: CHF exacerbation, Cirrhosis, Chronic kidney disease, Chronic atrial fibrillation, unspecified, Morbid obesity with BMI of 40.0-44.9, adult Coding Level of Care Code ED Transformation Manager for Tay Rust
--- OUTSIDE RECORDS SUMMARY | 2025-03-17 13:16 | XMS_ITS | Clinical Summary ---
Author Organization [facility] Address [address] [place] [address] Care Team Providers Care Admin Assistant Name Role Phone Lay Segovia MD Primary Care Provider [phone] Allergies Active Allergy Reactions Criticality Noted Date Comments Penicillins Other (See Comments) 03/25/2018 Mom told him he was allergic Sulfa (Sulfonamide Antibiotics) Other (See Comments) 03/25/2018 Mom told him he was allergic Medications folic acid (FOLVITE) 1 mg tablet Take 1 Tablet (1 mg) by mouth daily. 30 Tablet 03/29/2018 1:47 PM CDT 8 Active vitamin B complex Tablet Sustained Release Take 1 Tablet by mouth daily. Active traMADol (ULTRAM) 50 mg tablet Take 50 mg by mouth 1 time daily as needed for Pain. Active pantoprazole (PROTONIX) 40 mg Tablet, Delayed Release (E.C.) Take 1 Tablet (40 mg) by mouth every 12 hours. 60 Tablet 1 06/07/2018 12:21 PM CDT 8 Active Additional Information Patient taking differently:40 mg OralDAILY, Reported on 10/07/2018 lactulose (ENULOSE) 10 gram/15 mL 10 gram/15 mL solution Take 15 ml's by mouth 3 times daily. 1350 mL 3 06/07/2018 12:21 PM CDT 8 Active Additional Information Patient taking differently: 10 GramOralTWO TIMES DAILY, Reported on 12/01/2018 ferrous fumarate (FERRETTS) 325 mg (106 mg iron) Tablet Take 325 mg by mouth daily. Active vit C/vit E/lutein/min/om ega-3 (OCUVITE ORAL) Take by mouth 2 times daily. Active spironolactone (ALDACTONE) 100 mg tablet Take 50 mg by mouth 2 times daily. Not currently using 9 Active vitamin E 400 unit capsule Take 400 Units by mouth daily. Active diltiaZEM (CARDIZEM) 120 mg Tablet Take 1 Tablet (120 mg) by mouth every 6 hours. 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 90 Tablet 1 Active nadoloL (CORGARD) 20 mg tablet Take 1 Tablet (20 mg) by mouth daily. 30 Tablet 1 Active Active Problems Problem Noted Date Diagnosed Date Pleural effusion on left 09/08/2020 Persistent atrial fibrillation 07/24/2020 Persistent atrial fibrillati on with rapid ventricular response 04/25/2020 Other secondary thrombocytopenia 04/25/2020 Umbilical hernia without obstruction and without gangrene 12/01/2018 Constipation 10/08/2018 Decompensated hepatic cirrhosis 06/02/2018 PUD (peptic ulcer disease) 06/02/2018 Hyponatremia 06/02/2018 Ascites 06/02/2018 Chronic liver disease due to alcohol 03/25/2018 Increased ammonia level 03/25/2018 Alcohol withdrawal seizure 03/25/2018 Thrombocytopenia 03/25/2018 Acute upper gastrointestinal hemorrhage 03/25/20 18 Melena 03/25/2018 Acute blood loss anemia 03/25/2018 Obesity 03/25/2018 Secondary esophageal varices with bleeding Atrial fibrillation with rapid ventricular respo nse Hypokalemia Hypomagnesemia Resolved Problems Problem Noted Date Diagnosed Date Resolved Date Occult blood positive stool 06/02/2018 06/07/2018 Hepatic encephalopathy 06/02/201806/07 Immunizations Immunization Administration Dates Next Due (HAVRIX/VAQTA)(19 YRS UP) HE PATITIS A VACCINE ADULT DOSAGE 1 ML IMM 01/06/2019 (RECOMBIVAX HB/ENGERIX-B)(11 YR UP) HEPATITIS B VACCINE 10 MCG/1 ML OR 20 MCG/1 ML ADOL OR ADULT 2 - 3 DOSE PF, IM 01/06/2019 Hepatitis B Vaccine 09/22/2002 Influenza Seasonal Unspecified Formulation IM Family History Medical History Relation Name Comments Colon Cancer Neg Hx Social History Tobacco Use Types Packs/Day Years Used Date Smoking Tobacco: Former Cigarettes Q uit: 03/25/2015 Smokeless Tobacco: Current Chew Alcohol Use Standard Drinks/Week Comments Yes 0 (1 standard drink = 0.6 oz pur e alcohol) quit February 2018 Sex and Gender Information Value Date Recorded Sex Assigned at Not on file Legal Sex Male 6:53 AM [employer] Gender Identity Not on file Sexual Orientation Not on file Last Filed Vital Signs Vital Sign Reading Time Taken Comments Blood Pressure 117/61 09/15/2020 11:40 AM [employer] EXEC[employer]IVE SECURITY Pulse 79 09/15/2020 11:40 AM [employer]IVE [employer] Temperature 36.3 C (97.4 F) 09/15/2020 11:40 AM [employer] Respiratory Rate 18 09/15/2020 11:4 0 AM [employer] EXEC[employer]IVE [employer]ITY Oxygen Saturation 98% 09/15/2020 11: 40 AM [employer] EX[employer]IVE [employer] Inhaled Oxygen Concentration - - Weight 130.8 kg (288 lb 6.4 oz) 09/15/2020 5:33 AM [employer] Height 182.9 cm (6') 09/12/2020 4:17 AM [employer] Body Mass Index 39.11 09/12/2020 4:17 AM [employer] Plan of Treatment Health Maintenance Due Date Last Done Comments DTAP/TDAP/TD VACCINES (1 - Tdap) 1983 COLORECTAL SCREENING 2009 Colorectal Cancer Screening 2009 FIT-DNA Q 3 years 2009 FIT/FOBT Q 1 year 2009 Flex Sig/CT Colonography Q 5 years 2009 ZOSTER VACCINE (1 of 2) 2014 HEPATITIS B VACCINES (2 of 3 - Risk 3-dose series) 02/03/2019 01/06/2019, 09/22/2002 UPPER GI ENDOSCOPY 09/11/2021 09/11/2020, 0 04/25/2020, 11/13/2018, Additional history exists RSV VACCINE (60+ or ) (1 - Risk 60-74 years 1-dose series) 2024 INFLUENZA VACCINE (#1) 2024 07/03/2018 Medical Devices Implanted Type Area Boardmarker Device Identifier Shelf Expiration Date Model / Serial / Lot Mesh Ventralight St 4x6in [id number] - [id number] Implanted:Qty: 1 on 12/02/2018 by Bney Rouse MD at [facility] Mesh N/A: Abdomen CR [employer] 09/11/2020 [id number] / / [id number] Ligator Band Super 7 [id number] - [id number] Implanted:Qty: 1 on 03/25/2018 by Neal King MD at [facility] Other N/A: Esophagus [employer] [id number] / / [id number] Description:one band placed Ligator Band Super 7 [id number] - [id number] Implanted:Qty: 1 on 06/04/2018 by Edgar Batista MD at [facility] Other N/A: Esophagus [employer] 03/05/2019 [id number] / / [id number] Description:4 bands placed Ligator Band 4 Super 7 [id number] - [id number] Implanted:Qty: 1 on 04/25/2020 by Neal King MD at [facility] Other N/A: Esophagus [employer] 03/30/2021 [id number] / / Description:4 bands deployed , 3 implanted Insurance RX [facility] Commercial * Guarantor: [id number] Account Type Relation to Patient Date of Phone Billing Address Workers Comp Employer [employer] Advance Directives For more information, please contact: [phone] * Full Code (Latest Code Status on File) Date Activated Date Inactivated Comments 09/08/2020 10:18 PM 09/15/2020 3:50 PM * Full Code Date Activated Date Inactivated Comments 04/25/2020 7:27 PM 04/28/2020 5:45 PM * Full Code Date Activated Date Inactivated Comments 04/25/2020 8:53 AM 04/25/2020 11:54 AM * Full Code Date Activated Date Inactivated Comments 12/02/2018 8:49 AM 12/02/2018 3:25 PM * Full Code Date Activated Date Inactivated Comments 12/02/2018 5:48 AM 12/02/2018 8:49 AM Care Teams Admin Assistant Relationship Specialty Start Date End Date Lay Segovia MD [address] [place] [phone] PCP - General Family Practice 06/15/18
--- OUTSIDE RECORDS SUMMARY | 2025-03-17 13:16 | XMS_ITS | Clinical Summary ---
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 Change to every other day dosing 9 Active traMADoL (ULTRAM) 50 mg tablet Take 50 mg by mouth 1 time daily as needed for Pain. 8 Active vitamin B complex Tablet Sustained Release Take 1 Tablet by mouth daily. 8 Active fluticasone propionate (FLONASE) 50 mcg/spray Merrick, Suspension nasal inhaler Administer 2 Sprays in each nostril daily. Active diltiaZEM (CARDIZEM CD) 120 mg Controlled Delivery 24 hour capsule Take 120 mg by mouth daily. Active vit C/E/zinc/lutein /zeaxanthin (OCUVITE EYE HEALTH ORAL) Take by mouth 2 times daily. Active levothyroxine 50 mcg tablet 2 Active aspirin 81 mg chewable tablet (SENG CHEWABLE) Take 81 mg by mouth daily. Active amiodarone (CORDARONE) 200 mg tablet Take 200 mg by mouth daily. 5 Active Eliquis 5 mg tablet Take 5 mg by mouth 2 times daily. 5 Active baclofen (LIORESAL) 10 mg tablet Take 10 mg by mouth 2 times daily as needed for Pain. 5 Active alfuzosin (UROXATRAL) 10 mg Extended Release 24 hour tablet Take 10 mg by mouth daily. Active albuterol sulfate HFA 90 mcg/actuation aerosol inhaler Take 1 Puff by inhalation every 4 hours as needed for Shortness of Breath or Wheezing. Active cetirizine (ZyrTEC) 10 mg tablet Take 10 mg by mouth daily. Active gabapentin (NEURONTIN) 100 mg capsule Take 100 mg by mouth 3 times daily. Active levETIRAcetam (KEPPRA) 1,000 mg tablet Take 1,000 mg by mouth 2 times daily. 5 Active midodrine (PROAMATINE) 5 mg tablet Take 5 mg by mouth 3 times daily. Active potassium CHLORIDE (K-DUR,KLOR-CON M20) 20 mEq Extended Release tablet Take 20 mEq by mouth 2 times daily. Active spironolactone (ALDACTONE) 50 mg tablet Take 100 mg by mouth daily. Active acetaminophen (TYLENOL) 325 mg tablet Take 650 mg by mouth every 4 hours as needed for Pain. Active ammonium lactate (LAC-HYDRIN) 12 % Cream Apply to affected area daily. Apply to BLE. When applying to RLE follow wound care order Active ARTIFICIAL TEARS,HYPROMELL OSE, OP 1 Drop by Ophthalmic route every 4 hours as needed for Other (See Comment) (dry eyes). May keep at bedside Active bisacodyL (DULCOLAX) 5 mg Delayed Release tablet Take 5-20 mg by mouth 1 time daily as needed for Constipation. Active calcium as CARBONATE (TUMS ULTRA) 1,000 mg (400 mg elemental) Tablet, Chewable Take 400 mg by mouth daily. Active docusate sodium (COLACE) 100 mg capsule Take 100 mg by mouth daily. Active guar gum (BENEFIBER HEALTHY BALANCE) 4 gram/5 gram Take 4 Grams by mouth daily. Active phenyleph-min oil-petrolatum (Hemorrhoidal,P E-min oil-muna,) 0.25-14-74.9 % Ointment Insert 1 Gram by rectum every 6 hours as needed for Itching or Hemorrhoids. Active lactulose (ENULOSE) 10 gram/15 mL oral solution Take 30 Grams by mouth 3 times daily. Active magnesium HYDROXIDE (MILK OF MAGNESIA) 400 mg/5 mL suspension Take 30 mL by mouth 1 time daily as needed for Constipation. If no BM in 3 days Active polyethylene glycol (MIRALAX) 17 gram Powder in Packet Take 17 Grams by mouth daily. Active aluminum-magnes ium HYDROXIDE-simet hicone (MAALOX PLUS ES) 400-400-40 mg/5 mL suspension Take 30 mL by mouth every 6 hours as needed for Dyspepsia. Active ondansetron (ZOFRAN) 8 mg Tablet Take 8 mg by mouth every 8 hours as needed for Nausea/Emesis. Active Saccharomyces boulardii (FLORASTOR) 250 mg Capsule Take 250 mg by mouth daily. Active carboxymethylce llulose (REFRESH EYE DROPS) 1 % solution Administer 1 Drop in both eyes 3 times daily as needed for Discomfort. Active ascorbic acid, vitamin C, (VITAMIN C) 1,000 mg Tablet Take 1,000 mg by mouth daily. Active cholecalciferol , vitamin D3, 1,000 unit Take 1,000 Units by mouth daily. Active bumetanide (BUMEX) 1 mg tablet Take 2 Tablets (2 mg) by mouth daily AND 1 Tablet (1 mg) daily after lunch. 5 Active thiamine mononitrate (VITAMIN B-1) 100 mg tablet Take 1 Tablet (100 mg) by mouth daily. 5 Active naloxone (NARCAN) 4 mg/spray Merrick, Non-Aerosol EMERGENCY USE ONLY: Administer 1 spray (4 mg) in one nostril one time. May repeat in alternating nostrils every 2-3 min until responsive or EMS arrives. 5 Active zinc OXIDE-cod liver oil (DESITIN) 40 % Paste Apply to affected area 2 times daily. 5 Active cefdinir (OMNICEF) 300 mg capsule Take 1 Capsule (300 mg) by mouth every 12 hours for 10 days. 5 02/22/20 25 doxycycline hyclate (VIBRAMYCIN) 100 mg capsule Take 1 Capsule (100 mg) by mouth 2 times daily for 10 days. 5 02/22/20 25 Active Problems Problem Noted Date Diagnosed Date Protein-calorie malnutrition, moderate Severe sepsis without septic shock 02/08/2025 Acquired hypothyroidism 02/08/2025 Seizure disorder 02/08/2025 Neuropathy 02/08/2025 ASCVD (arteriosclerotic cardiovascular disease) 02/08/2025 Cellulitis of right lower extremity 02/08/2025 ESBL (extended spectrum beta -lactamase) producing bacteria infection 01/25/2025 Spontaneous bacterial peritonitis 01/22/2025 Chronic anticoagulation 01/22/2025 Chewing tobacco nicotine dependence without comp lication 01/22/2025 Morbid obesity with BMI of 45.0-49.9, adult 01/13 Severe anemia 01/18/2025 Alcoholic cirrhosis 01/18/2025 Coagulopathy 01/18/2025 Anemia 01/18/2025 Anemia requiring transfusions 01/18/2025 Pleural effusion on left 09/08/2020 Persistent atrial fibrillation 07/24/2020 Persistent atrial fibrillati on with rapid ventricular response 04/25/2020 Other secondary thrombocytopenia 04/25/2020 Umbilical hernia without obstruction and without gangrene 12/01/2018 Constipation 10/08/2018 Decompensated hepatic cirrhosis 06/02/2018 PUD (peptic ulcer disease) 06/02/2018 Ascites 06/02/2018 Hyponatremia 06/02/2018 Increased ammonia level 03/25/2018 Acute upper gastrointestinal hemorrhage 03/25/20 18 Obesity 03/25/2018 Chronic liver disease due to alcohol 03/25/2018 Thrombocytopenia 03/25/2018 Acute blood loss anemia 03/25/2018 Alcohol withdrawal seizure 03/25/2018 Melena 03/25/2018 Secondary esophageal varices with bleeding Hypokalemia Atrial fibrillation with rapid ventricular respo nse Hypomagnesemia Resolved Problems Problem Noted Date Diagnosed Date Resolved Date Hepatic encephalopathy 06/02/201806/07 Occult blood positive stool 06/02/2018 06/07/2018 Encounters Date Type Department Care Team Description 5 External Device Data STL ABSTRACTION Provider, Abstract 5 Orders Only [facility] [place] [address] [facility] [address] [place] [address] Carey Michel MD Thrombocytopenia (Primary Dx) 5 External Device Data STL ABSTRACTION Provider, Abstract 5 2:00 AM CDT - 5 11:59 PM CDT Hospital Encounter [facility] [address] [place] [phone] Chen Magaña MD Ambulance, [facility] Discharge Disposition: Intermediate Care Facility 5 4:21 PM CDT - 5 9:20 AM CDT Hospital Encounter [facility] 7[facility] Medical Surgical [address] [place] [phone] Carlos Manuel Baldwin DO Patel, Taksh, MD Dhakal, Prabin, MD Severe sepsis without septic shock (CMS/HCC) Discharge Disposition: Medicaid Nursing Facility 5 Travel 5 12:15 AM CDT - 5 11:59 PM CDT Hospital Encounter [facility] [address] [place] [phone] Jose Chaves MD Ambulance, [facility] Discharge Disposition: Intermediate Care Facility 5 External Device Data STL ABSTRACTION Provider, Abstract 5 External Device Data STL ABSTRACTION Provider, Abstract 5 Results Follow-Up [facility] Gastroenterology [address] [place] [address] Toni Webb MD PATHOLOGY, BONE MARROW ASPIRATION & BIOPSY, FLOW CYTOMETRY PANEL, FLOW CYTOMETRY REPORT 5 2:00 PM CDT - 5 2:20 PM CDT Surgery [facility] Endoscopy [address] [place] [phone] Toni Webb MD COLONOSCOPY 5 1:45 PM CDT Anesthesia Event [facility] Endoscopy [address] [place] [phone] Abbey Tian MD Wickenhauser, Desiree, CRNA 5 Orders Only [facility] HIM [address] [place] [phone] Provider, Abstract 5 1:57 PM CDT Anesthesia Event [facility] End[facility] [address] [place] [phone] Abbey Tian MD Whitford, Chastidy Anne, [facility] 5 1:40 PM CDT - 5 2:00 PM CDT Surgery [facility] End[facility] [address] [place] [phone] Toni Webb MD ESOPHAGOGASTRODUODENOSCOPY 5 External Device Data STL ABSTRACTION Provider, Abstract 5 External Device Data STL ABSTRACTION Provider, Abstract 5 External Device Data STL ABSTRACTION Provider, Abstract 5 [id number] [place] [phone] Provider, Abstract 5 Orders Only [facility] Information Management [place] [address] [place] [address] Provider, Abstract 5 7:45 PM CDT - 5 1:59 PM CDT Hospital Encounter [facility] 7[facility] Medical Surgical [address] [place] [phone] Billie, MD Saravanan Calvillo, DO Darell Maldonado Anthony Charles, DO Virji, Jose Ames MD Severe anemia Discharge Disposition: Medicaid Nursing Facility 5 Travel 5 Orders Only [id number] [place] [phone] Provider, Abstract 5 Orders Only [id number] [place] [phone] Provider, Abstract from Last 3 Months Immunizations Immunization Administration Dates Next Due (ABRYSVO)(60 YR UP/GA 32-36 WKS) RSV, BIVALENT, PROTEIN SUBUNIT RSVPREF, DILUENT RECONSTITUTED, 0.5 ML, PF 01/08/2024 (HAVRIX/VAQTA)(19 YRS UP) HE PATITIS A VACCINE ADULT DOSAGE 1 ML IMM 01/06/2019 (PREVNAR 20)(6 WKS UP) PNEUM OCOCCAL CONJUGATE VACCINE 20-VALENT (PCV20), POLYSACCHARIDE [id number] CONJUGATE, ADJUVANT 0.5 ML (PF) IM 07/15/2024 (RECOMBIVAX HB/ENGERIX-B)(11 YR UP) HEPATITIS B VACCINE 10 MCG/1 ML OR 20 MCG/1 ML ADOL OR ADULT 2 - 3 DOSE PF, IM 01/06/2019 (SPIKEVAX) (12 YRS UP PRIMAR Y SERIES) COVID-19 VACCINE - MRNA-1273(PF) 100 MCG/0.5 ML IM SUSP 12/14/2020 Hepatitis A Vaccine 07/30/2019 Hepatitis B Vaccine 02/05/2019,09/22/2002 Influenza Seasonal Unspecifi ed Formulation IM 06/30/2023,06/21/2022,07/03/2018 Family History Medical History Relation Name Comments Colon Cancer Neg Hx Social History Tobacco Use Types Packs/Day Years Used Date Smoking Tobacco: Former Cigarettes Q uit: 03/25/2015 Smokeless Tobacco: Former Tobacco Cessation:Counseling Given: Not Answered Alcohol Use Standard Drinks/Week Comments Not Currently 0 (1 standard drink = 0.6 oz pur e alcohol) Feeling Safe Answer Date Recorded Are you in a relationship wi th someone who hurts you emotionally and/or physically? 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 Gender Identity Not on file Sexual Orientation Not on file Last Filed Vital Signs Vital Sign Reading Time Taken Comments Blood Pressure 96/40 02/12/2025 7:57 AM CDT Pulse 89 02/12/2025 7:57 AM CDT Temperature 36.4 C (97.6 F) 02/12/2025 7:57 AM CDT Respiratory Rate 16 02/12/2025 7:57 AM CDT Oxygen Saturation 98% 02/12/2025 7:57 AM CDT Inhaled Oxygen Concentration - - Weight 171.9 kg (378 lb 15.5 oz) 02/12/2025 5:00 AM CDT Height 188 cm (6' 2 ) 02/08/2025 11:19 PM CDT Body Mass Index 48.66 02/08/2025 11:19 PM CDT Plan of Treatment Upcoming Encounters Date Type Department Care Team (Late st Contact Info) Description 03/22/2025 3:20 PM CDT Office Visit [facility] [place] [address] [facility] 2 [place] [address] Carey Michel MD [address] [phone] 04/07/2025 2:00 PM CDT Office Visit [facility]- [place] [address] [facility] [address] [place] [address] Indy Camara, ANA ROSA [address] [facility] [address] [place] [address] Health Maintenance Due Date Last Done Comments Pre-Diabetes and Diabetes Screening 1965 DTAP/TDAP/TD VACCINES (1 - Tdap) 1983 Traditional Medicare (ACO) A nnual Wellness Visit 1983 FIT-DNA Q 3 years 2009 FIT/FOBT Q 1 year 2009 Flex Sig/CT Colonography Q 5 years 2009 ZOSTER VACCINE (1 of 2) 2014 HEPATITIS B VACCINES (2 of 3 - Risk 3-dose series) 03/05/2019 02/05/2019, 01/06/2019, 09/22/2002 COVID-19 Vaccine (2023-2 5 season) 2024 03/25/2024, 07/28/2023, 07/03/2022, Additional history exists INFLUENZA VACCINE (#1) 2025 , 06/21/2022, 07/03/2018 UPPER GI ENDOSCOPY 08/10/2026 08/10/2024, 04/24/2022 COLORECTAL SCREENING 01/21/2028 01/20/2025, 01/21/20 Colorectal Cancer Screening 01/21/2028 RSV VACCINE (60+ or ) Completed 01/08/2024 Medical Devices Implanted Type Area Fisher Oyster Device Identifier Shelf Expiration Date Model / Serial / Lot Mesh Ventralight St 4x6in [id number] - [id number] Implanted:Qty: 1 on 12/02/2018 by Beny Rouse MD Mesh N/A: Abdomen CR [employer] 09/11/2020 [id number] / / [id number] Ligator Band Super 7 [id number] - [id number] Implanted:Qty: 1 on 03/25/2018 by Neal King MD Other N/A: Esophagus [employer] [id number] / / [id number] Description:one band placed Ligator Band Super 7 [id number] - [id number] Implanted:Qty: 1 on 06/04/2018 by Edgar Batista MD Other N/A: Esophagus [employer] 03/05/2019 [id number] / / [id number] Description:4 bands placed Ligator Band 4 Super 7 [id number] - [id number] Implanted:Qty: 1 on 04/25/2020 by Neal King MD Other N/A: Esophagus [employer] 03/30/2021 [id number] / / Description:4 bands deployed , 3 implanted Procedures Procedure Name Priority Date/Time Associated Diagnosis Comments TELEMETRY REPORT 02/15/2025 2:31 AM CDT DIFFERENTIAL, MANUAL Routine 02/12/2025 6:22 AM CDT VANCOMYCIN LEVEL RANDOM Routine 02/13/20 6:22 AM CDT BASIC METABOLIC PANEL Routine 02/12/2025 6:22 AM CDT CBC WITH DIFFERENTIAL Routine 02/12/2025 6:22 AM CDT DIFFERENTIAL, MANUAL Routine 02/11/2025 8:07 AM CDT VANCOMYCIN LEVEL RANDOM Routine 02/12/20 8:07 AM CDT BASIC METABOLIC PANEL Routine 02/11/2025 8:07 AM CDT CBC WITH DIFFERENTIAL Routine 02/11/2025 8:07 AM CDT DIFFERENTIAL, MANUAL Routine 02/10/2025 7:19 AM CDT VANCOMYCIN LEVEL RANDOM Routine 02/11/20 7:19 AM CDT BASIC METABOLIC PANEL Routine 02/10/2025 7:19 AM CDT CBC WITH DIFFERENTIAL Routine 02/10/2025 7:19 AM CDT US VENOUS DOPPLER LEG BILATERAL Routine 02/09/2025 11:56 AM CDT MICHELLE AURIS SURVEILLANCE SCREEN Routine 02/09/2025 10:49 AM CDT DIFFERENTIAL, MANUAL Routine 02/09/2025 5:58 AM CDT VANCOMYCIN LEVEL RANDOM Timed Study 02/10/20 5:58 AM CDT BASIC METABOLIC PANEL Routine 02/09/2025 5:58 AM CDT CBC WITH DIFFERENTIAL Routine 02/09/2025 5:58 AM CDT LACTIC ACID Stat 02/08/2025 9:52 PM CDT DIFFERENTIAL, MANUAL Stat 02/08/2025 5:00 PM CDT LACTIC ACID Stat 02/08/2025 5:00 PM CDT COMPREHENSIVE METABOLIC PANEL Stat 5:00 PM CDT PTT Stat 02/08/2025 5:00 PM CDT PROTIME-INR Stat 02/08/2025 5:00 PM CDT CBC WITH DIFFERENTIAL Stat 02/08/2025 5:00 PM CDT BLOOD CULTURE Stat 02/08/2025 5:00 PM CDT BLOOD CULTURE Stat 02/08/2025 5:00 PM CDT BLOOD CULTURE Stat 02/08/2025 5:00 PM CDT BLOOD CULTURE Stat 02/08/2025 5:00 PM CDT EKG 12-LEAD Stat 02/08/2025 4:20 PM CDT TELEMETRY REPORT 02/04/2025 3:12 AM CDT MAGNESIUM LEVEL Routine 02/03/2025 4:15 AM CDT BASIC METABOLIC PANEL Routine 02/03/2025 4:15 AM CDT CBC WITH DIFFERENTIAL Routine 02/03/2025 4:15 AM CDT BASIC METABOLIC PANEL Routine 02/02/2025 2:12 PM CDT CBC WITH DIFFERENTIAL Routine 02/02/2025 2:12 PM CDT BASIC METABOLIC PANEL Routine 02/01/2025 6:38 AM CDT CBC WITH DIFFERENTIAL Routine 02/01/2025 6:38 AM CDT MAGNESIUM LEVEL Routine 01/31/2025 6:03 AM CDT BASIC METABOLIC PANEL Routine 01/31/2025 6:03 AM CDT CBC WITH DIFFERENTIAL Routine 01/31/2025 6:03 AM CDT MAGNESIUM LEVEL Routine 01/30/2025 10:41 AM CDT BASIC METABOLIC PANEL Routine 01/30/2025 10:41 AM CDT CBC WITH DIFFERENTIAL Routine 01/30/2025 6:30 AM CDT BASIC METABOLIC PANEL Routine 01/29/2025 8:26 AM CDT CBC WITH DIFFERENTIAL Routine 01/29/2025 8:26 AM CDT POTASSIUM LEVEL Routine 01/28/2025 11:46 PM CDT TRANSFUSE PACKED RED BLOOD CELLS Routine 01/28/2025 5:45 PM CDT TYPE AND SCREEN Routine 01/28/2025 11:15 AM CDT PREPARE RED BLOOD CELLS Routine 01/29/20 10:34 AM CDT MAGNESIUM LEVEL Routine 01/28/2025 8:39 AM CDT BASIC METABOLIC PANEL Routine 01/28/2025 8:39 AM CDT CBC WITH DIFFERENTIAL Routine 01/28/2025 8:39 AM CDT OCCULT BLOOD GUAIAC DIAGNOSTIC Stat 0 01/27/2025 9:52 AM CDT MAGNESIUM LEVEL Routine 01/27/2025 5:48 AM CDT BASIC METABOLIC PANEL Routine 01/27/2025 5:48 AM CDT CBC WITH DIFFERENTIAL Routine 01/27/2025 5:48 AM CDT MAGNESIUM LEVEL Routine 01/26/2025 6:37 AM CDT BASIC METABOLIC PANEL Routine 01/26/2025 6:37 AM CDT CBC WITH DIFFERENTIAL Routine 01/26/2025 6:37 AM CDT BASIC METABOLIC PANEL Timed Study 01/25/2025 5:09 PM CDT PT EVAL AND TREAT Pending Discharge 01/25/2025 12:51 PM CDT MAGNESIUM LEVEL Routine 01/25/2025 4:38 AM CDT BASIC METABOLIC PANEL Routine 01/25/2025 4:38 AM CDT CBC WITH DIFFERENTIAL Routine 01/25/2025 4:37 AM CDT CBC WITH DIFFERENTIAL Routine 01/24/2025 7:56 AM CDT BASIC METABOLIC PANEL Routine 01/24/2025 6:29 AM CDT BASIC METABOLIC PANEL Routine 01/23/2025 5:10 AM CDT CBC WITH DIFFERENTIAL Routine 01/23/2025 5:10 AM CDT BASIC METABOLIC PANEL Routine 01/22/2025 1:18 AM CDT CBC WITH DIFFERENTIAL Routine 01/22/2025 1:18 AM CDT HEMOGLOBIN AND HEMATOCRIT Routine 2024 4:42 PM CDT TRANSFUSE PACKED RED BLOOD CELLS Routine 01/21/2025 1:46 PM CDT IR BIOPSY BONE MARROW Routine 01/21/2025 12:22 PM CDT FLOW CYTOMETRY REPORT Routine 01/21/2025 12:10 PM CDT BONE MARROW ASPIRATION & BIOPSY Pathology 01/21/2025 12:10 PM CDT CELL COUNT, BONE MARROW Pathology 01/22/20 12:10 PM CDT FLOW CYTOMETRY PANEL Routine 01/21/2025 12:10 PM CDT TYPE AND SCREEN Routine 01/21/2025 7:59 AM CDT HEMOGLOBIN AND HEMATOCRIT Routine 2024 6:18 AM CDT PREPARE RED BLOOD CELLS Routine 01/22/20 6:00 AM CDT BASIC METABOLIC PANEL Routine 01/21/2025 5:41 AM CDT CBC WITH DIFFERENTIAL Routine 01/21/2025 5:41 AM CDT COLONOSCOPY REPORT 01/20/2025 2:28 PM CDT PATHOLOGY Pathology 01/20/2025 2:16 PM CDT COLONOSCOPY 01/20/2025 2:00 PM CDT Case Notes 01/20 0700 hgb 6.3, to get transfused. K+ 2.6 nurse to get orders to replace and both labs STAT recheck. stools clear - KT 1205- STAT labs being drawn - KT POTASSIUM LEVEL Stat 01/20/2025 12:15 PM CDT HEMOGLOBIN AND HEMATOCRIT Stat 2024 12:15 PM CDT TRANSFUSE PACKED RED BLOOD CELLS Routine 01/20/2025 8:29 AM CDT PREPARE RED BLOOD CELLS Routine 01/21/20 6:00 AM CDT MAGNESIUM LEVEL Routine 01/20/2025 5:31 AM CDT BASIC METABOLIC PANEL Routine 01/20/2025 5:31 AM CDT CBC WITH DIFFERENTIAL Routine 01/20/2025 5:31 AM CDT URINALYSIS W/REFLEX MICROSCOPIC Routine 01/19/2025 11:34 PM CDT URINE CULTURE Routine 01/19/2025 11:34 PM CDT UPPER ENDOSCOPY REPORT 2:12 PM CDT ESOPHAGOGASTRODUODENOSCOPY 01/19 1:40 PM CDT Case Notes 01/19 0750 patient drink all prep and stools brown. more prep ordered. Platelets 38, hgb 7.0 and K+ 3.0. message sent to nurse and st card - KT Per St. Card okay with platelets at 38. 40meq of oral K+ ordered. If cannot get prepped today, will proceed with EGD only - KT 1145- proceed with EGD only per Dr. Gupta , can scope at 1330 - KT BASIC METABOLIC PANEL Routine 01/19/2025 6:15 AM CDT CBC WITH DIFFERENTIAL Routine 01/19/2025 6:15 AM CDT ZINC LEVEL Routine 01/19/2025 6:15 AM CDT COPPER LEVEL Routine 01/19/2025 6:15 AM CDT T4 FREE Routine 01/18/2025 5:47 PM CDT HEMOGLOBIN AND HEMATOCRIT Routine 2024 5:47 PM CDT KAPPA/LAMBDA LIGHT CHAINS Routine 2024 5:47 PM CDT PROTEIN ELECTROPHORESIS W/REFLEX,SERUM Routine 01/18/2025 5:47 PM CDT TSH REFLEXIVE Routine 01/18/2025 5:47 PM CDT HIV DETECTION W/REFLX CONFIRMATION Routine 01/18/2025 5:47 PM CDT ACUTE HEPATITIS PANEL Routine 01/18/2025 5:47 PM CDT VITAMIN B12 AND FOLATE Routine 5:47 PM CDT SEDIMENTATION RATE Routine 01/18/2025 10:36 AM CDT RETICULOCYTES Routine 01/18/2025 10:36 AM CDT LACTATE DEHYDROGENASE Routine 01/18/2025 10:36 AM CDT COMPREHENSIVE METABOLIC PANEL Stat 10:36 AM CDT HEMOGLOBIN AND HEMATOCRIT Stat 2024 10:36 AM CDT US ABDOMEN LIMITED Stat 01/18/2025 8:53 AM CDT PLATELET COUNT Stat 01/18/2025 5:20 AM CDT HEMOGLOBIN AND HEMATOCRIT Stat 2024 5:20 AM CDT TRANSFUSE PACKED RED BLOOD CELLS Routine 01/18/2025 2:31 AM CDT FIBRINOGEN QUANTITATIVE Stat 01/19/20 2:19 AM CDT D-DIMER Stat 01/18/2025 2:19 AM CDT PREPARE RED BLOOD CELLS Stat 01/19/20 1:58 AM CDT HEMOGLOBIN AND HEMATOCRIT Stat 2024 1:43 AM CDT PULSE OXIMETRY, SPOT Stat 01/18/2025 1:29 AM CDT TRANSFUSE PACKED RED BLOOD CELLS Routine 01/17/2025 11:20 PM CDT INSERT MIDLINE IV Stat 01/17/2025 11:06 PM CDT PSA Routine 01/17/2025 11:04 PM CDT C-REACTIVE PROTEIN Routine 01/17/2025 11:04 PM CDT HAPTOGLOBIN Routine 01/17/2025 11:04 PM CDT FERRITIN Stat 01/17/2025 11:04 PM CDT IRON, TIBC, AND PERCENT SATURATION Stat 01/17/2025 11:04 PM CDT BILIRUBIN DIRECT Stat 01/17/2025 11:04 PM CDT PHOSPHORUS Stat 01/17/2025 11:04 PM CDT MAGNESIUM LEVEL Stat 01/17/2025 11:04 PM CDT COMPREHENSIVE METABOLIC PANEL Stat 11:04 PM CDT EKG 12-LEAD Stat 01/17/2025 10:36 PM CDT PREPARE RED BLOOD CELLS Stat 01/18/20 25 9:39 PM CDT CBC WITH DIFFERENTIAL Stat 01/17/2025 9:10 PM CDT DIRECT ANTIGLOBULIN TEST Routine 025 8:28 PM CDT TYPE AND SCREEN Stat 01/17/2025 8:28 PM CDT PTT Stat 01/17/2025 8:28 PM CDT PROTIME-INR Stat 01/17/2025 8:28 PM CDT BASIC METABOLIC PANEL Routine 01/14/2025 10:06 AM CDT BASIC METABOLIC PANEL Routine 01/14/2025 7:31 AM CDT COMPREHENSIVE METABOLIC PANEL Routine 10:06 AM CDT BASIC METABOLIC PANEL Routine 01/12/2025 7:31 AM CDT COMPREHENSIVE METABOLIC PANEL Routine 9:30 AM CDT BASIC METABOLIC PANEL Routine 12/25/2024 9:29 AM CDT BASIC METABOLIC PANEL Routine 12/24/2024 9:31 AM CDT BASIC METABOLIC PANEL Routine 12/23/2024 9:28 AM CDT BASIC METABOLIC PANEL Routine 12/21/2024 9:33 AM CDT BASIC METABOLIC PANEL Routine 12/20/2024 9:32 AM CDT BASIC METABOLIC PANEL Routine 12/19/2024 12:50 PM CDT from Last 3 Months Results * TELEMETRY REPORT (02/15/2025 2:31 AM CDT) Only the most recent of2 resultswithin the time period is included. us Provider Scanning ECG ORDERABLES Final Result * MANUAL DIFFERENTIAL (02/12/2025 6:22 AM CDT) Only the most recent of5 resultswithin the time period is included. PLATELET EST. Adequate 02/12/2025 7:05 AM CDT [facility] ANISOCYTOSIS 3+ /hpf 02/12/2025 7:05 AM CDT [facility] POIKILOCYTES 1+ /hpf 02/12/2025 7:05 AM CDT [facility] POLYCHROMASIA 1+ /hpf 02/12/2025 7:05 AM CDT [facility] Blood Venipuncture / Unknown 02/12/2025 6:22 AM CDT 02/12/2025 6:27 AM CDT Goldie Whitney MD HEMATOLOGY ORDERABLES COM Final Result [facility] CLIA # [id number] [address] [place] [address] * (ABNORMAL) CBC WITH DIFFERENTIAL (02/12/2025 6:22 AM CDT) Only the most recent of22 resultswithin the time period is included. WBC 5.9 4.8 - 10.8 K/uL 02/12/2025 7:05 AM [facility] RBC 2.92(L) 4.60 - 6.20 M/uL 02/12/2025 7:05 AM [facility] HEMOGLOBIN 8.8(L) 14.0 - 18.0 g/dL 02/12/2025 7:05 AM [facility] HEMATOCRIT 28.0(L) 41.0 - 53.0 % 02/12/2025 7:05 AM [facility] MCV 95.9 84.0 - 103.0 fL 02/12/2025 7:05 AM [facility] MCH 30.1 27.0 - 34.0 pg 02/12/2025 7:05 AM [facility] MCHC 31.4 30.0 - 35.0 g/dL 02/12/2025 7:05 AM [facility] PLATELETS 150 140 - 440 K/uL 02/12/2025 7:05 AM [facility] MPV 9.7 8.9 - 12.8 fL 02/12/2025 7:05 AM [facility] RDW 21.2(H) 11.0 - 14.5 % 02/12/2025 7:05 AM [facility] RDW-STDEV 72.8(H) 37.0 - 54.0 fL 02/12/2025 7:05 AM [facility] NEUTROPHILS 54 42 - 75 % 02/12/2025 7:05 AM [facility] LYMPHOCYTES 21(L) 24 - 44 % 02/12/2025 7:05 AM CDT [facility] MONOCYTES 15(H) 2 - 10 % 02/12/2025 7:05 AM CDT [facility] EOSINOPHILS 5 0 - 7 % 02/12/2025 7:05 AM [facility] BASOPHILS 1 0 - 1 % 02/12/2025 7:05 AM T [facility] IMMATURE GRANULOCYTES 4(H) 0 - 2 % 02/12/2025 7:05 AM T [facility] NEUTROPHIL ABSOLUTE 3.15 2.00 - 8.00 K/uL 02/12/2025 7:05 AM T [facility] LYMPHOCYTE ABSOLUTE 1.23 1.20 - 4.00 K/uL 02/12/2025 7:05 AM T [facility] MONOCYTE ABSOLUTE 0.87(H) 0.10 - 0.60 K/uL 02/12/2025 7:05 AM [facility] EOSINOPHIL ABSOLUTE 0.30 0.00 - 0.70 K/uL 02/12/2025 7:05 AM [facility] BASOPHILS ABSOLUTE 0.07 0.00 - 0.20 K/uL 02/12/2025 7:05 AM [facility] IMMATURE GRANULOCYTES ABSOLUTE 0.23(H) 0.00 - 0.10 K/uL 02/12/2025 7:05 AM [facility] SMEAR REVIEWED: SR - See Smear Review on Manual Diff. 02/12/2025 7:05 AM [facility] Blood Venipuncture / Unknown 02/12/2025 6:22 AM CDT 02/12/2025 6:27 AM CDT us Goldie Whitney MD HEMATOLOGY ORDERABLES Final Resu lt [facility] CLIA # [id number] [address] [address] [place] [address] * VANCOMYCIN LEVEL RANDOM (02/12/2025 6:22 AM CDT) Only the most recent of4 resultswithin the time period is included. Pathologist [facility] [place] VANCOMYCIN, RANDOM 15.9 5.0 - 50.0 ug/mL 02/12/2025 7:06 AM [facility] Blood Venipuncture / Unknown 02/12/2025 6:22 AM CDT 02/12/2025 6:27 AM CDT Narrative [facility] - 02/12/2025 7:06 AM T Vancomycin Therapeutic Ranges: Vancomycin Trough: 10 - 20 mcg/mL Vancomycin Peak: 25 - 50 mcg/mL us Chen Magaña MD CHEMISTRY ORDERABLES [id number] [address] [place] [address] * (ABNORMAL) BASIC METABOLIC PANEL (02/12/2025 6:22 AM CDT) Only the most recent of30 resultswithin the time period is included. Pathologist [facility] [place] SODIUM 129(L) 136 - 145 mmol/L 02/12/2025 7:06 AM [facility] POTASSIUM 3.6 3.5 - 5.1 mmol/L 02/12/2025 7:06 AM [facility] CHLORIDE 93(L) 98 - 107 mmol/L 02/12/2025 7:06 AM [facility] CO2 27 22 - 29 mmol/L 02/12/2025 7:06 AM [facility] CALCIUM 8.0(L) 8.8 - 10.2 mg/dL 02/12/2025 7:06 AM [facility] BUN 18 8 - 23 mg/dL 02/12/2025 7:06 AM [facility] CREATININE 1.34(H) 0.67 - 1.17 mg/dL 02/12/2025 7:06 AM [facility] GLUCOSE 135(H) 74 - 99 mg/dL 02/12/2025 7:06 AM T [facility] GFR >60 >=60 mL/min/1. 73 sq meter 02/12/2025 7:06 AM T [facility] Comment:eGFR calculated with 2020 CKD-EPI equation. Vegetarian diet, extremely high or low muscle mass, and may affect results. Cystatin C with Glomerular Filtration Rate is a suitable alternative for these patients. ANION GAP 9 9 - 20 mmol/L 02/12/2025 7:06 AM CDT [facility] Blood Venipuncture / Unknown 02/12/2025 6:22 AM CDT 02/12/2025 6:27 AM CDT us Goldie Whitney MD CHEMISTRY ORDERABLES Final Resul t Performing Organization Address City/State/[facility] Co de Phone Number [facility] CLIA # [id number] [address] [id number] * US VENOUS DOPPLER LEG BILATERAL (02/09/2025 11:56 AM CDT) Anatomical Region Laterality Modality Lower Extremity Ultrasound 02/09/2025 11:1 0 AM CDT Narrative 02/09/2025 6:17 PM CDT [facility] Noninvasive Vascular Laboratory [address] [place] [address] Noninvasive Vascular Lab Venous Exam Complete Lower Extremity Duplex (Report amended ) Patient: Lay Soto Study ID: US VENOUS DOPPLE Gender: M : 1965 Age: 59 Room: 52 Height: Weight: BSA: Pt status: Inpatient Study Date: 02/09/2025 Study Time: 11:10:30 AM BSA: Ordering: Chen Magaña Interpreting:Prince Giuliano Home Lending Officer: Dorina Mendez Indications: DVT. Summary Impression: No evidence of deep or superficial venous thrombosis involving the visualized right lower extremity and left lower extremity. Bilateral mid-distal femoral veins and peroneal veins not visualized. Clinical correlation is recommended. Study data: Complete lower extremity venous duplex evaluation. Doppler flow study including spectral analysis, color and arroyo scale imaging. Location: Bedside. Patient status: Inpatient. Study status: Routine. Procedure: A vascular evaluation was performed. Image quality was fair. The study was technically limited due to edema and body habitus. Incidental findings: Soft tissue edema is noted incidentally on the right. If clinically indicated, further follow-up is recommended. Soft tissue edema is noted incidentally on the left. If clinically indicated, further follow-up is recommended. Venous flow and imaging: - Right common femoral Patent; Normal phasicity; spontaneous; compressible; normal augmentation - Right profunda femoral Patent; Normal phasicity; spontaneous; compressible; normal augmentation - Right femoral Not well visualized. Normal phasicity; spontaneous; compressible; normal augmentation - Right popliteal Patent; Normal phasicity; spontaneous; compressible; normal augmentation - Right small saphenous Patent; Compressible - Right posterior tibial Patent; Compressible; normal augmentation - Right peroneal Not well visualized. Compressible; normal augmentation - Right great saphenous Patent; Compressible - Left common femoral Patent; Normal phasicity; spontaneous; compressible; normal augmentation - Left profunda femoral Patent; Normal phasicity; spontaneous; compressible; normal augmentation - Left femoral Not well visualized. Normal phasicity; spontaneous; compressible; normal augmentation - Left popliteal Patent; Normal phasicity; spontaneous; compressible; normal augmentation - Left small saphenous Patent; Compressible - Left posterior tibial Patent; Compressible; normal augmentation - Left peroneal Not well visualized. Compressible; normal augmentation - Left great saphenous Patent; Compressible [facility] is accredited with the Intersocietal Commission for the Accreditation of Vascular Laboratories (ICAVL) Prince Ladi Confirmed 02/09/2025 18:18 Procedure Note Prince Nobles MD - 02/09/2025 [facility] Noninvasive Vascular Laboratory [address] [place] [address] Noninvasive Vascular Lab Venous Exam Complete Lower Extremity Duplex (Report amended ) Patient: Lay Soto Study ID: US VENOUS DOPPLE Gender: M : 1965 Age: 59 Room: 71 Height: Weight: BSA: Pt status: Inpatient Study Date: 02/09/2025 Study Time: 11:10:30 AM BSA: Ordering: Chen Magaña Interpreting:Prince Giuliano Home Lending Officer: Dorina Mendez Indications: DVT. Summary Impression: No evidence of deep or superficial venous thrombosis involving thevisualized right lower extremity and left lower extremity. Bilateral mid-distalfemoral veins and peroneal veins not visualized. Clinical correlation isrecommended. Study data: Complete lower extremity venous duplex evaluation.Doppler flow study including spectral analysis, color and arroyo scale imaging. Location: Bedside. Patient status: Inpatient. Study status:Routine. Procedure: A vascular evaluation was performed. Image quality was fair.The study was technically limited due to edema and body habitus. Incidental findings: Soft tissue edema is noted incidentally on theright. If clinically indicated, further follow-up is recommended. Soft tissue edemais noted incidentally on the left. If clinically indicated, further follow-upis recommended. Venous flow and imaging: - Right common femoral Patent; Normal phasicity; spontaneous;compressible; normal augmentation - Right profunda femoral Patent; Normal phasicity; spontaneous;compressible; normal augmentation - Right femoral Not well visualized. Normal phasicity; spontaneous; compressible; normal augmentation - Right popliteal Patent; Normal phasicity; spontaneous; compressible;normal augmentation - Right small saphenous Patent; Compressible - Right posterior tibial Patent; Compressible; normal augmentation - Right peroneal Not well visualized. Compressible; normal augmentation - Right great saphenous Patent; Compressible - Left common femoral Patent; Normal phasicity; spontaneous;compressible; normal augmentation - Left profunda femoral Patent; Normal phasicity; spontaneous;compressible; normal augmentation - Left femoral Not well visualized. Normal phasicity; spontaneous; compressible; normal augmentation - Left popliteal Patent; Normal phasicity; spontaneous; compressible;normal augmentation - Left small saphenous Patent; Compressible - Left posterior tibial Patent; Compressible; normal augmentation - Left peroneal Not well visualized. Compressible; normal augmentation - Left great saphenous Patent; Compressible [facility] V[facility] Lab is accredited with theIntersocietal Commission for the Accreditation of Vascular Laboratories (ICAVL) Amended Prince Giuliano Confirmed 02/09/2025 18:18 Chen Magaña MD US ORDERABLES Edited Result - Final * MICHELLE AURIS SURVEILLANCE SCREEN (02/09/2025 10:49 AM CDT) CULTURE No Michelle auris isolated 02/12/2025 8:42 AM CDT [facility] Surveillance (Axilla/Groin) 02/09/2025 10:49 AM CDT 02/09/2025 10:59 AM CDT Chen Magaña MD MICROBIOLOGY - GENERAL ORDERABL ES Final Result Performing Organization Address City/[facility]/ZIP Co de Phone Number [facility] CLIA # [id number] [address] [place] [address] [place] [address] * (ABNORMAL) LACTIC ACID (02/08/2025 9:52 PM CDT) Only the most recent of2 resultswithin the time period is included. LACTIC ACID 2.6(H) <=2.0 mmol/L 02/08/2025 10:40 PM CDT [facility] Blood Venipuncture / Unknown 02/08/2025 9:52 PM CDT 02/08/2025 10:11 PM CDT Goldie Whitney MD CHEMISTRY ORDERABLES Final Resul t [facility] CLIA # [id number] [address] [place] [address] * BLOOD CULTURE (02/08/2025 5:00 PM CDT) Only the most recent of2 resultswithin the time period is included. BLOOD CULTURE No growth 02/13/2025 7:25 PM CDT [facility] Blood (Peripheral) Venipuncture / Unknown 02/08/2025 5:00 PM CDT 02/08/2025 5:20 PM CDT us Jasmina Yari Stewart RESIDENT CARE MANAGER MICROBIOLOGY - GENERAL ORDERA BLES Final Result Performing Organization Address [facility] Co de Phone Number [facility] CLIA # [id number] [address] [address] [place] [address] * (ABNORMAL) PTT (02/08/2025 5:00 PM CDT) Only the most recent of2 resultswithin the time period is included. PTT 42.5(H) 24.8 - 37.2 seconds 02/08/2025 5:41 PM CDT [facility] Blood Venipuncture / Unknown 02/08/2025 5:00 PM CDT 02/08/2025 5:22 PM CDT Narrative [facility] - 02/08/2025 5:41 PM CDT Therapeutic Range: Hi-level PE/DVT heparin protocol 80.1 - 95.0 sec Lo-level PE/DVT heparin protocol 70.1 - 85.0 sec Cardiac Heparin Protocol 70.1 - 100.0 sec us Jasmina Yari Stewart RESIDENT CARE MANAGER HEMATOLOGY ORDERABLES Final R esult Performing Organization Address City/[facility]/ZIP Co de Phone Number [facility] CLIA # [id number] [address] [address] [place], [place] [address] * (ABNORMAL) PROTIME-INR (02/08/2025 5:00 PM CDT) Only the most recent of2 resultswithin the time period is included. Pathologist [facility] [place] PROTIME 21.3(H) 12.7 - 14.9 Seconds 02/08/2025 5:41 PM CDT [facility] INR 1.8(H) 0.8 - 1.2 02/08/2025 5:41 PM CDT [facility] Blood Venipuncture / Unknown 02/08/2025 5:00 PM CDT 02/08/2025 5:22 PM CDT Narrative [facility] - 02/08/2025 5:41 PM CDT Expected Values for INR: DVT/PE Goal INR 2.5; range 2.0 - 3.0 Valve Replacement Tissue Goal INR 2.5; range 2.0 - 3.0 Valve Replacement Mechanical Goal INR 3.0; range 2.5 - 3.5 POST-TX Goal INR 2.5; range 2.0 - 3.0 or Goal INR 3.0; range 2.5 - 3.5 Atrial Fibrillation Goal INR 2.5; range 2.0 - 3.0 Ischemic Stroke Goal INR 2.5; range 2.0 - 3.0 us Jasmina Stewart RESIDENT CARE MANAGER HEMATOLOGY ORDERABLES Final R esult [facility] CLIA # [id number] [address] [facility] [place] [address] * (ABNORMAL) COMPREHENSIVE METABOLIC PANEL (02/08/2025 5:00 PM CDT) Only the most recent of5 resultswithin the time period is included. [facility] SODIUM 126(L) 136 - 145 mmol/L 02/08/2025 5:58 PM CDT [facility] POTASSIUM 3.8 3.5 - 5.1 mmol/L 02/08/2025 5:58 PM [facility] CHLORIDE 89(L) 98 - 107 mmol/L 02/08/2025 5:58 PM [facility] CO2 23 22 - 29 mmol/L 02/08/2025 5:58 PM [facility] CALCIUM 8.7(L) 8.8 - 10.2 mg/dL 02/08/2025 5:58 PM [facility] BUN 20 8 - 23 mg/dL 02/08/2025 5:58 PM [facility] CREATININE 1.39(H) 0.67 - 1.17 mg/dL 02/08/2025 5:58 PM [facility] GLUCOSE 119(H) 74 - 99 mg/dL 02/08/2025 5:58 PM [facility] TOTAL PROTEIN 5.5(L) 6.4 - 8.3 g/dL 02/08/2025 5:58 PM [facility] ALBUMIN 2.7(L) 3.5 - 5.2 g/dL 02/08/2025 5:58 PM [facility] BILIRUBIN TOTAL 1.7(H) 0.0 - 1.0 mg/dL 02/08/2025 5:58 PM [facility] ALKALINE PHOSPHATASE 121 40 - 129 U/L 02/08/2025 5:58 PM [facility] AST 28 10 - 50 U/L 02/08/2025 5:58 PM [facility] ALT 23 <=50 U/L 02/08/2025 5:58 PM [facility] GFR 58(L) >=60 mL/min/1. 73 sq meter 02/08/2025 5:58 PM [facility] Comment:eGFR calculated with 2020 CKD-EPI equation. Vegetarian diet, extremely high or low muscle mass, and may affect results. Cystatin C with Glomerular Filtration Rate is a suitable alternative for these patients. ANION GAP 14 9 - 20 mmol/L 02/08/2025 5:58 PM [facility] Blood Venipuncture / Unknown 02/08/2025 5:00 PM CDT 02/08/2025 5:22 PM CDT us Jasmina Stewart RESIDENT CARE MANAGER CHEMISTRY ORDERABLES Final Re sult [facility] CLIA # [id number] [address] [place] [address] * EKG 12-LEAD (02/08/2025 4:20 PM CDT) Only the most recent of2 resultswithin the time period is included. 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1965 Requested By: Order Number: [id number] Reading MD: Siri Mcclendon Measurements Intervals Harrison Rate: 113 P: 0 OR: 0 QRS: 114 QRSD: 78 T: 32 QT: 282 QTc: 386 Interpretive Statements Atrial fibrillation with rapid ventricular response Right axis deviation Low voltage QRS Septal infarct, age undetermined Abnormal ECG Electronically Signed On 02-08-2025 19:05:57 CDT by Siri Mcclendon Procedure Note Siri Mcclendon, - 02/08/[address] [address] Test Date: 2025-02-08 Pat Name: LAY SOTO Department: 11 Room: Gender: 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1965 Requested By: Order Number: [id number] Reading MD: Siri Mccelndon Measurements Intervals Harrison Rate: 113 P: 0 OR: 0 QRS: 114 QRSD: 78 T: 32 QT: 282 QTc: 386 Interpretive Statements Atrial fibrillation with rapid ventricular response Right axis deviation Low voltage QRS Septal infarct, age undetermined Abnormal ECG Electronically Signed On 02-08-2025 19:05:57 CDT by Siri Mcclendon us Jasmina Stewart NP ECG ORDERABLES Final Result Performing Organization Address City/[facility] de Phone Number INTERFACE SYSTEM Refer to clinic/hospital department * MAGNESIUM LEVEL (02/03/2025 4:15 AM CDT) Only the most recent of9 resultswithin the time period is included. MAGNESIUM 2.1 1.6 - 2.4 mg/dL 02/03/2025 6:23 AM CDT [facility] Blood Venipuncture / Unknown 02/03/2025 4:15 AM CDT 02/03/2025 4:36 AM CDT us Kasia Coe DO CHEMISTRY ORDERABLES Final R esult Performing Organization Address [facility] de Phone Number [facility] CLIA # [id number] [address] [place] [address] * POTASSIUM LEVEL (01/28/2025 11:46 PM CDT) Only the most recent of2 resultswithin the time period is included. POTASSIUM 3.8 3.5 - 5.1 mmol/L 01/29/2025 12:15 AM CDT [facility] Blood Venipuncture / Unknown 01/28/2025 11:46 PM CDT 01/28/2025 11:49 PM CDT us Jose Chaves MD CHEMISTRY ORDERABLES Final Result Performing Organization Address [facility] Co de Phone Number [facility] CLIA # [id number] [address] [place] [address] * TRANSFUSE RED BLOOD CELLS (01/28/2025 9:45 PM CDT) Only the most recent of5 resultswithin the time period is included. us Jose Chaves MD BLOOD TRANSFUSION ORDERABL ES Final Result * TYPE AND SCREEN (01/28/2025 11:15 AM CDT) Only the most recent of3 resultswithin the time period is included. ABO GROUP O 01/28/2025 12:29 PM CDT [facility] RH (D) TYPE Positive 01/28/2025 12:29 PM CDT [facility] ANTIBODY SCREEN Negative 01/28/2025 12:29 PM CDT [facility] Blood Venipuncture / Unknown 01/28/2025 11:15 AM CDT 01/28/2025 11:19 AM CDT Jose Chaves MD BLOOD BANK ORDERABLES Edit ed Result - Final [facility] CLIA#[id number] [address] [place] [address], * PREPARE RED BLOOD CELLS (01/28/2025 10:34 AM CDT) Only the most recent of5 resultswithin the time period is included. COMPONENT TYPE [id number] [facility] COMPONENT IDENTIFICATION [id number] [facility] UNIT ABO O [facility] UNIT RH POS [facility] CROSSMATCH Compatible [facility] COMPONENT STATUS Transfused [facility] COMPONENT EXPIRATION DATE/TIME [id number] [facility] COMPONENT CODING SYSTEM [address] [facility] VOLUME, BLOOD PRODUCT 350 [facility] Other, specify 01/28/2025 10 :34 AM CDT Jose Chaves MD LAB TRANSFUSION ORDERABLES Edited Result - Final Performing Organization Address [facility]/ZIP Co de Phone Number [facility] CLIA#[id number] [address] [place] [address], * OCCULT BLOOD GUAIAC DIAGNOSTIC (01/27/2025 9:52 AM CDT) OCCULT BLOOD, STOOL Negative Negative 01/27/2025 9:59 AM CDT [facility] Stool STOOL SPECIMEN / Unknown Collection / Unknown 01/27/2025 9:52 AM CDT 01/27/2025 9:56 AM CDT Marcin Wise MD BODY FLUIDS AND STOOLS Final Result Performing Organization Address [facility] Co de Phone Number [facility] CLIA # [id number] [address] [place] [address] * (ABNORMAL) HEMOGLOBIN AND HEMATOCRIT (01/21/2025 4:42 PM CDT) Only the most recent of7 resultswithin the time period is included. [facility] HEMOGLOBIN 8.1(L) 14.0 - 18.0 g/dL 01/21/2025 5:07 PM CDT [facility] HEMATOCRIT 24.6(L) 41.0 - 53.0 % 01/21/2025 5:07 PM CDT [facility] Blood Venipuncture / Unknown 01/21/2025 4:42 PM CDT 01/21/2025 4:57 PM CDT Sandeep Lozoya DO HEMATOLOGY ORDERABL ES Final Result Performing Organization Address [facility]/ZIP Co de Phone Number [facility] CLIA # [id number] [address] [place] [id number] * IR BIOPSY BONE MARROW (01/21/2025 12:22 PM CDT) Anatomical Region Laterality Modality X-Ray Angiograph y 01/21/2025 12:2 2 PM CDT Impressions 01/21/2025 1:39 PM CDT IMPRESSION: Please see below. Exam: IR BIOPSY BONE MARROW Date/Time of Exam: 01/21/2025 12:22 PM Reason For Exam: Other - Please see comments. This procedure was performed and preliminary findings dictated by Angel Null PA-C. Supervision and final interpretation by Dr. Pina. CONSENT: Risks, benefits, and alternatives of the procedure were discussed with the patient. Specific risks of bone marrow aspiration and /or core biopsy of the posterior iliac crest include, but not limited to: bleeding, hematoma, discomfort at the site of the biopsy, and infection. Procedure may need to be repeated in the event the sample obtained is inadequate or non-diagnostic. Additional complications of anesthesia include, but not limited to: allergic/drug reaction and breathing problems. Written informed consent was obtained from the patient. Description of Procedure: The patient was placed in a prone position, and fluoroscopy was utilized to evaluate the Right posterior iliac crest for needle insertion site. The area was marked, prepped, and draped in the usual sterile fashion. All elements of maximal sterile barrier technique, including hand hygiene and cutaneous antisepsis with an antisepsis agent, were used. A time out was performed to verify the patient and procedure. Local anesthesia was achieved with 1% lidocaine overlying the proposed needle course. Under fluoroscopic guidance, a Jamshidi needle was advanced into the bone space via power drill. Approximately 10 mL of bone marrow aspirate as well as a bone biopsy were collected at that time and sent to the laboratory for ordered specimens. Patient tolerated the procedure well without complication. Estimated Blood Loss: Minimal Narrative Procedure Note Devin Pina MD - 01/21/2025 IMPRESSION: Please see below. Exam: IR BIOPSY BONE MARROW Date/Time of Exam: 01/21/2025 12:22 PM Reason For Exam: Other - Please see comments. This procedure was performed and preliminary findings dictated by Angel Null PA-C. Supervision and final interpretation by Dr. Pina. CONSENT: Risks, benefits, and alternatives of the procedure were discussed with the patient. Specific risks of bone marrow aspiration and /or core biopsy of the posterior iliac crest include, but not limited to: bleeding, hematoma, discomfort at the site of the biopsy, and infection. Procedure may need to be repeated in the event the sample obtained is inadequate or non-diagnostic. Additional complications of anesthesia include, but not limited to: allergic/drug reaction and breathing problems. Written informed consent was obtained from the patient. Description of Procedure: The patient was placed in a prone position, and fluoroscopy was utilized to evaluate the Right posterior iliac crest for needle insertion site. The area was marked, prepped, and draped in the usual sterile fashion. All elements of maximal sterile barrier technique, including hand hygiene and cutaneous antisepsis with an antisepsis agent, were used. A time out was performed to verify the patient and procedure. Local anesthesia was achieved with 1% lidocaine overlying the proposed needle course. Under fluoroscopic guidance, a Jamshidi needle was advanced into the bone space via power drill. Approximately 10 mL of bone marrow aspirate as well as a bone biopsy were collected at that time and sent to the laboratory for ordered specimens. Patient tolerated the procedure well without complication. Estimated Blood Loss: Minimal Arnulfo Marie NP IR ORDERABLES Final Result * CELL COUNT, BONE MARROW (01/21/2025 12:10 PM CDT) Bone marrow ALL BONE MARROW / Unknown Collection / Unknown 01/21/2025 12:10 PM CDT 01/21/2025 12:32 PM CDT Arnulfo Marie NP HEMATOLOGY ORDERABLES Final Result [facility] CLIA # [id number] [address] [place] [address] * FLOW CYTOMETRY PANEL (01/21/2025 12:10 PM CDT) FLOW CYTOMETRY INTERP See Separate Pathology Report 01/24/2025 7:30 AM CDT [facility] Bone marrow ALL BONE MARROW / Unknown Collection / Unknown 01/21/2025 12:10 PM CDT 01/21/2025 12:19 PM CDT Arnulfo Marie NP PATHOLOGY/CYTOLOGY ORDERABLE S Final Result [facility] CLIA # [id number] [address] [place] [address] [place] [address] * BONE MARROW ASPIRATION & BIOPSY (01/21/2025 12:10 PM CDT) CASE REPORT Surgical Pathology Report Case: [id number] Authorizing Provider: Arnulfo Marie NP Collected: 01/21/2025 12:10 PM Ordering Location: [facility] Received: 01/21/2025 12:32 PM Medical Surgical Pathologist: Malaika Reyna MD Specimens: A) - Bone marrow, right posterior iliac crest, clot B) - Bone marrow, right posterior iliac crest, biopsy C) - Peripheral Blood Smear 9:45 AM CDT [facility] FINAL DIAGNOSIS A/B/C. Bone marrow and peripheral blood; aspirate, clot, and core biopsy; right posterior iliac crest - Borderline hypocellular for age marrow with trilineage hematopoiesis showing markedly diminished erythropoiesis, megakaryocyte hyperplasia with atypical forms, and normal-appearing myelopoiesis with peripheral blood monocytosis - No circulating blasts, increase in bone marrow blasts, or abnormal lymphoid population identified - Adequate stainable iron stores - See diagnosis comment Malaika Reyna MD [id number] 9:45 AM CDT [facility] at 0944 CDT Preliminary result electronically signed by Malaika Reyna MD on 01/24/2025 at 1516 CDT DIAGNOSIS COMMENT The histologic features in conjunction with the pronounced anemia and thrombocytopenia with monocytosis raised consideration for an underlying chronic disorder of hematopoiesis (such as myelodysplastic syndrome or chronic myelomonocytic leukemia). However, no abnormalities are identified by either karyotype or NeoType MDS/CMML profile. Given these negative studies, the changes are favored to represent marrow injury with subsequent reactive/regenerative changes. 9:45 AM [facility] GROSS DESCRIPTION A. Received fresh in a syringe labeled Charles is a single syringe containing 1.1 mL of dark partially clotted bone marrow. The marrow is filtered to form a 2.5 x 1.3 x 0.5 cm clot. The clot is sectioned and entirely submitted in A1. B. Received in formalin labeled Charles are 2 bone cores ranging from 0.6-1.0 cm in greatest dimension. The specimen is submitted entirely in B1, following light decalcification. Siri Howe 9:45 AM [facility] MICROSCOPIC DESCRIPTION Peripheral Blood CBC (01/21/2025): Hgb 6.8 g/dL; RBC 2.30 x10(12)/L; MCV 91.7 fL; RDW 14.8%; WBC 6.21 x10(9)/L; PLT 43 x10(9)/L. Automated white blood cell differential %: neutrophils 60.4; lymphocytes 17.4; monocytes 17.2; eosinophils 4.2, basophils 0.3, immature granulocytes 0.5. Peripheral smear: White blood cells are quantitatively normal overall, although absolute monocytosis is present. The neutrophils show complete maturation with no dysplasia and no circulating blasts. The monocytes are polymorphous. Red cells are markedly decreased in quantity with increased anisopoikilocytosis including elliptocytes, microcytes, and macrocytes. No significant schistocytes. Platelets are markedly decreased in quantity but generally small with normal granulation. No significant platelet clumps. Bone Marrow Aspirate/Touch Imprint Quality: Cellular. M:E ratio: Increased, 4-5:1 Erythroid precursors: Normoblastic maturation. Granulocytic/monocytic precursors: Normal maturation; blasts not increased (<3%). Megakaryocytes: Mostly normal with occasional large markedly irregular or hypersegmented forms and occasional stripped nuclei. A rare micro megakaryocyte is also seen. Lymphocytes: Not increased; No cytologic atypia. Plasma cells: Not increased (<5%); No cytologic atypia. Bone Marrow Biopsy/Clot Quality: Adequate. Cellularity: Borderline hypocellular for age, 30% Erythroid precursors: Decreased quantity; left shifted maturation with few small erythroid islands. Granulocytic/monocytic precursors: Normal quantity; progressive maturation; normal distribution. Megakaryocytes: Increased quantity; abnormally large forms; loose aggregates without tight clusters Lymphocytes: No lymphoid infiltrates. Plasma cells: Not increased. Special Studies Iron stain: Adequate storage iron. Sideroblasts present; ring sideroblasts not identified. Flow cytometry: No diagnostic immunophenotypic abnormalities. A separate report is available ([id number]). Karyotype: 45,X,-Y[1-]/46,XY[10]; Abnormal Male Karyotype. 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 NeoType MDS/CMML profile preliminary: No pathogenic mutations are detected in any of the genes on the NGS panel. Please see the complete scanned report for full details, including a list of genes analyzed. However 9:45 AM T [facility] CLINICAL INFORMATION None provided. Chart review shows severe anemia and thrombocytopenia. 9:45 AM T [facility] COMMENT The [employer] voice-activated dictation system may have been used in the creation of this report. Inherent to this system is the possibility of errors in syntax, grammar, punctuation, or other areas that could impact interpretation. If there are interpretive questions about the report, please contact the performing pathologist. Unless gross only is specified in the diagnosis, the microscopic examination substantiates the above cited diagnosis. The performance characteristics of all immunohistochemical stains cited in this report (if any) were determined by the [facility] of [facility] in compliance with CLIA'88 regulations. Some of these tests rely on the use of analyte specific reagents and are subject to specific labeling requirements by the FDA. All controls show appropriate reactivity. This testing was developed by the [facility]ohist[facility] of [facility]. It has not been cleared or approved by the FDA. The FDA has determined that such clearance or approval is not necessary. 9:45 AM CDT [facility] Bone marrow ALL BONE MARROW / Unknown Collection / Unknown 01/21/2025 12:10 PM CDT 01/21/2025 12:32 PM CDT Bone marrow specimen (specimen) ALL BONE MARROW / Unknown 01/21/2025 12:10 PM CDT 01/21/2025 12:32 PM CDT Bone marrow specimen (specimen) (Peripheral Blood Smear) 01/21/2025 12:10 PM CDT 01/21/2025 12:32 PM CDT Arnulfo Marie NP PATHOLOGY/CYTOLOGY ORDERABLE S Final Result [facility] CLIA # [id number] [address] [place] [address] * FLOW CYTOMETRY REPORT (01/21/2025 12:10 PM CDT) CASE REPORT Surgical Pathology Report Case: [id number] Authorizing Provider: Arnulfo Marie NP Collected: 01/21/2025 12:10 PM Ordering Location: [facility] Received: 01/21/2025 12:36 PM Medical Surgical Pathologist: Malaika Reyna MD Specimen: Bone marrow 5 6:55 AM CDT [facility] FINAL DIAGNOSIS FLOW CYTOMETRIC ANALYSIS. FINAL PATHOLOGY DIAGNOSIS IN SEPARATE REPORT. SPECIMEN: - Bone marrow aspirate INTERPRETATION: - No diagnostic immunophenotypic abnormalities detected - This is ONLY an interpretation of the flow cytometry study; for the final/integrated pathology diagnosis see bone marrow case [id number] Malaika Reyna MD [id number] 5 6:55 AM CDT [facility] at 0655 CDT DIAGNOSIS COMMENT No immunophenotypic evidence of a lymphoproliferative disorder, acute leukemia, increase in blasts, or plasma cell neoplasm is identified. Myeloproliferative neoplasms and myelodysplastic syndromes may not show antigenic abnormalities on myeloid cells and cannot be ruled out by flow cytometry. Please correlate the result with morphological findings, other pertinent laboratory data and clinical information. 5 6:55 AM CDT [facility] IMMUNOPHENOTYPIC ANALYSIS Lymphocytes are 7% of total analyzed events. T-cells (69% of lymphoid cells) show a CD4/CD8 ratio of about 4.4 without overt phenotypic abnormality. NK-cells (15% of lymphoid cells) are unremarkable. Mature B-cells (13% of lymphoid cells) are polyclonal (kappa:lambda 1.5). KF71-bmqarfzj events (1% of total cells) are not increased. Plasma cells are not increased and show unremarkable surface marker expression. Markers analyzed: CD2, CD3, CD4, CD5, CD7, CD8, CD10, CD11b, CD11c, CD13, CD14, CD16, CD19, CD20, CD23, CD33, CD34, CD38, CD45, CD56, CD57, CD64, CD117, HLA-DR, surface kappa, surface lambda (total = 26) 5 6:55 AM CDT [facility] COMMENT Flow cytometry was performed at [facility] ([address] [place] [address], 2nd floor, room #[id number] in [place], [place]) and interpreted in-house at [facility] in [facility]. 5 6:55 AM CDT [facility] Bone marrow ALL BONE MARROW / Unknown Collection / Unknown 01/21/2025 12:10 PM CDT 01/21/2025 12:36 PM CDT Arnulfo Marie NP PATHOLOGY/CYTOLOGY ORDERABLE S Final Result [facility] CLIA # [id number] [address] [place] [address] * COLONOSCOPY REPORT (01/20/2025 2:28 PM CDT) Narrative Procedure Note Toni Webb MD - 01/20/2025 2:28 PM CDT [facility] GI Patient Name: Lay Soto Procedure Date: 01/20/2025 Date of : 1965 Admit Type: Inpatient Age: 59 Attending MD: Toni Webb , , Procedure: Colonoscopy Indications: Anemia, exclude GI source of blood loss Providers: Toni Webb Referring MD: Medicines: Monitored Anesthesia Care Complications: No immediate complications. Procedure: After I obtained informed consent, the scope was passed under direct vision. Throughout the procedure, the patient's blood pressure, pulse, and oxygen saturations were monitored continuously. The Colonoscope was introduced through the anus and advanced to the cecum, identified by appendiceal orifice and ileocecal valve. The colonoscopy was unusually difficult due to poor bowel prep, a redundant colon, significant looping and the patient's body habitus. Successful completion of the procedure was aided by applying abdominal pressure. The patient tolerated the procedure well. The quality of the bowel preparation was evaluated using the BBPS (Baldwin Bowel Preparation Scale) with scores of: Right Colon = 1 (portion of mucosa seen, but other areas not well seen due to staining, residual stool and/or opaque liquid), Transverse Colon = 2 (minor amount of residual staining, small fragments of stool and/or opaque liquid, but mucosa seen well) and Left Colon = 2 (minor amount of residual staining, small fragments of stool and/or opaque liquid, but mucosa seen well). The total BBPS score equals 5. Estimated Blood Loss: Estimated blood loss was minimal. Findings: A 10 mm polyp was found in the cecum. The polyp was sessile. The polyp was removed with a cold snare. Resection and retrieval were complete. Multiple diverticula were found in the sigmoid colon. The exam was otherwise without abnormality on direct and retroflexion views. Impression: - One 10 mm polyp in the cecum, removed with a cold snare. Resected and retrieved. - Diverticulosis in the sigmoid colon. - The examination was otherwise normal on direct and retroflexion views. Recommendation: Repeat colonoscopy recommended. Assess for alternate sources of anemia / RP bleeding if anemia persists despite transfusion. Toni Webb, 01/20/2025 2:28:27 PM Number of Addenda: 0 Note Initiated On: 01/20/2025 1:43 PM Scope Withdrawal Time Scope In: Scope Out: [address] [place], [place] Toni Webb MD GI PROCEDURE ORDERABLES Final Result * PATHOLOGY (01/20/2025 2:16 PM CDT) CASE REPORT Surgical Pathology Report Case: [id number] Authorizing Provider: Toni Webb MD Collected: 01/20/2025 02:16 PM Ordering Location: [facility] Received: 01/21/2025 07:26 AM Endoscopy Pathologist: Ezekiel Madrigal MD Specimen: Cecum, polyp 12:04 PM CDT [facility] FINAL DIAGNOSIS A. Colon polyp, cecum, polypectomy - Fragments of adenomatous polyp Ezekiel Madrigal MD [id number] 12:04 PM CDT [facility] at 1204 CDT GROSS DESCRIPTION A. Received in a container of formalin labeled Soto -cecum polyp is a single fragment of mucosa, 0.9 cm in greatest dimension. The specimen is submitted entirely in A1. Siri Howe 12:04 PM CDT [facility] OPERATIVE PROCEDURE 1: COLONOSCOPY 12:04 PM CDT [facility] COMMENT The [employer] voice-activated dictation system may have been used in the creation of this report. Inherent to this system is the possibility of errors in syntax, grammar, punctuation, or other areas that could impact interpretation. If there are interpretive questions about the report, please contact the performing pathologist. Unless gross only is specified in the diagnosis, the microscopic examination substantiates the above cited diagnosis. The performance characteristics of all immunohistochemical stains cited in this report (if any) were determined by the [facility] of [facility] in compliance with CLIA'88 regulations. Some of these tests rely on the use of analyte specific reagents and are subject to specific labeling requirements by the FDA. All controls show appropriate reactivity. This testing was developed by the [facility] of [facility]. It has not been cleared or approved by the FDA. The FDA has determined that such clearance or approval is not necessary. 12:04 PM CDT [facility] Tissue (Cecum) Collection / Unknown 01/20/2025 2:16 PM CDT 01/21/2025 7:26 AM CDT Comment:Verified by HP / TB Lay Segovia MD us Toni Webb MD PATHOLOGY/CYTOLOGY ADDYSamara NORTH Final Result [facility] CLIA # [id number] [address] [address] [place] [address] * (ABNORMAL) URINALYSIS WITH REFLEX MICROSCOPIC (01/19/2025 11:34 PM CDT) COLOR UA Yellow Pale to Dark Yellow 01/20/2025 12:01 AM T [facility] CLARITY UA Clear Clear 01/20/2025 12:01 AM T [facility] SPECIFIC GRAVITY UA 1.014 1.003 - 1.035 01/20/2025 12:01 AM [facility] PH UA 6.0 5.0 - 8.0 01/20/2025 12:01 AM T [facility] LEUKOCYTE ESTERASE UA 3+(A) Negative 01/20/2025 12:01 AM T [facility] NITRITE UA Negative Negative 01/20/2025 12:01 AM T [facility] PROTEIN UA Negative Negative 01/20/2025 12:01 AM [facility] GLUCOSE UA Negative Negative 01/20/2025 12:01 AM [facility] KETONES UA Negative Negative 01/20/2025 12:01 AM T [facility] UROBILINOGEN UA <2.0 <2.0 mg/dL 12:01 AM T [facility] BILIRUBIN UA Negative Negative 01/20/2025 12:01 AM T [facility] BLOOD UA Negative Negative 01/20/2025 12:01 AM [facility] WBC UA 51-100(A) 0 - 2 /hpf 01/20/2025 12:01 AM T [facility] RBC UA 0-2 0 - 2 /hpf 01/20/2025 12:01 AM CDT [facility] BACTERIA UA Negative Negative /hpf 01/20/2025 12:01 AM CDT [facility] Urine URINE SPECIMEN OBTAINED BY CLEAN CATCH PROCEDURE / Unknown Collection / Unknown 01/19/2025 11:34 PM CDT 01/19/2025 11:42 PM CDT Sandeep Lozoya DO URINE ORDERABLES Fi nal Result [facility] CLIA # [id number] [address] [address] * (ABNORMAL) URINE CULTURE (01/19/2025 11:34 PM CDT) CULTURE ESCHERICHIA COLI(A) MARK MCG/ML 01/23/2025 11:21 AM CDT [facility] Comment:Multiple drug resist ant organism (MDRO). Urine (Urine, indwelling (Suprapubic) catheter) Collection / Unknown 01/19/2025 11:34 PM CDT 01/19/2025 11:42 PM CDT Narrative [facility] - 01/23/2025 11:21 AM CDT MDRO E coli called to Urmila Wang RN ([id number]) by Leona Caballero on 01/23/2025 at 11:19 AM with verbal readback. Organism Antibiotic Method Susceptibility Escherichia coli CEFAZOLIN MARK MCG/ML >=64 mcg/mL: Resistant Escherichia coli CEFEPIME MARK MCG/ML >=64 mcg/mL: Resistant Escherichia coli CEFTRIAXONE MARK MCG/ML >=64 mcg/mL: Resistant Escherichia coli CEFTAZIDIME MARK MCG/ML >=64 mcg/mL: Resistant Escherichia coli MEROPENEM MARK MCG/ML <=0.25 mcg/mL: Susceptible Escherichia coli GENTAMICIN MARK MCG/ML <=1 mcg/mL: Susceptible Escherichia coli TOBRAMYCIN MARK MCG/ML <=1 mcg/mL: Susceptible Escherichia coli CIPROFLOXACIN MARK MCG/ML >=4 mcg/mL: Resistant Escherichia coli LEVOFLOXACIN MARK MCG/ML >=8 mcg/mL: Resistant Escherichia coli TRIMETHOPRIM/ SULFAMETHOXAZOLE MARK MCG/ML <=20 mcg/mL: Susceptible Escherichia coli NITROFURANTOIN MARK MCG/ML <=16 mcg/mL: Susceptible Escherichia coli AMPICILLIN MARK MCG/ML >=32 mcg/mL: Resistant Escherichia coli AMPICILLIN/ SULBACTAM MARK MCG/ML >=32 mcg/mL: Resistant Escherichia coli PIPERACILLIN/ TAZOBACTAM MARK MCG/ML 8 mcg/mL: Susceptible Comment:Aminoglycosides shou ld not be used as monotherapy for infections outside the urinary tract. Consultation with an infectious diseases specialist is recommended. Sandeep Lozoya DO MICROBIOLOGY - GENE RAL ORDERABLES Final Result [facility] CLIA # [id number] [address] [place] [address] * UPPER ENDOSCOPY REPORT (01/19/2025 2:12 PM CDT) Narrative Procedure Note Toni Webb MD - 01/19/2025 2:12 PM CDT [facility] Patient Name: Lay Soto Procedure Date: 01/19/2025 Date of : 1965 Admit Type: Inpatient Age: 59 Attending MD: Toni Webb , , Procedure: Upper GI endoscopy Indications: Suspected upper gastrointestinal bleeding Providers: Toni Webb Referring MD: Medicines: Monitored Anesthesia Care Complications: No immediate complications. Procedure: After obtaining informed consent, the endoscope was passed under direct vision. Throughout the procedure, the patient's blood pressure, pulse, and oxygen saturations were monitored continuously. The Endoscope was introduced through the mouth, and advanced to the second part of duodenum. The upper GI endoscopy was accomplished without difficulty. The patient tolerated the procedure well. Estimated Blood Loss: Estimated blood loss: none. Findings: The esophagus was normal. Moderate portal hypertensive gastropathy was found in the entire examined stomach. The exam of the stomach was otherwise normal. The examined duodenum was normal. Impression: - Normal esophagus. - Portal hypertensive gastropathy. - Normal examined duodenum. - No specimens collected. Recommendation: CSP tomorrow Toni Webb, 01/19/2025 2:12:48 PM Number of Addenda: 0 Note Initiated On: 01/19/2025 12:53 PM Scope Withdrawal Time Scope In: Scope Out: [address] [place] Toni Webb MD GI PROCEDURE ORDERABLES Final Result * ZINC LEVEL (01/19/2025 6:15 AM CDT) ZINC LEVEL 74 60 - 130 mcg/dL 01/21/2025 9:21 PM CDT [facility] Comment: (Note) This test was developed and its analytical performance characteristics have been determined by [employer]. It has not been cleared or approved by the FDA. This assay has been validated pursuant to the CLIA regulations and is used for clinical purposes. [facility] [address] [place] [address],[place] [address] MD, PhD Blood Venipuncture / Unknown 01/19/2025 6:15 AM CDT 01/19/2025 6:19 AM CDT Narrative [facility] - 01/21/2025 9:21 PM CDT Performing Organization Information: Site ID: [id number] Name: [facility] Address: [address] [place] [address], [address] [address]: [address] MD,PhD Becca Lea RESIDENT CARE MANAGER CHEMISTRY ORDERABLES Final Result [facility] * COPPER LEVEL (01/19/2025 6:15 AM CDT) COPPER LEVEL 91 70 - 175 mcg/dL 01/21/2025 10:20 PM CDT [facility] Comment: (Note) This test was developed and its analytical performance characteristics have been determined by [facility]. It has not been cleared or approved by the FDA. This assay has been validated pursuant to the CLIA regulations and is used for clinical purposes. [facility] [address] [place] [address],[address] [facility] [address] MD, PhD Blood Venipuncture / Unknown 01/19/2025 6:15 AM CDT 01/19/2025 6:19 AM CDT Narrative [facility] - 01/21/2025 10:20 PM CDT Performing Organization Information: Site ID: [id number] Name: [facility] Address: [address] [place] [address], [address] [place] [address]: [address] MD,PhD Becca Lea RESIDENT CARE MANAGER CHEMISTRY ORDERABLES Final Result Performing Organization Address City/[facility]/ZIP Co de Phone Number [facility] * HIV DETECTION W/REFLX CONFIRMATION (01/18/2025 5:47 PM CDT) Pathologist [facility] [place] HIV-1 AND 2 ABS AND HIV-1 AG Non-reacti ve Non-React nataliia 01/18/2025 7:01 PM CDT [facility] Blood Venipuncture / Unknown 01/18/2025 5:47 PM CDT 01/18/2025 5:59 PM CDT Becca Lea RESIDENT CARE MANAGER CHEMISTRY ORDERABLES Final Result Performing Organization Address City/[facility]/ZIP Co de Phone Number [facility] CLIA # [id number] [address] [place] [address] * (ABNORMAL) TSH REFLEXIVE (01/18/2025 5:47 PM CDT) Pathologist [facility] [place] TSH 9.27(H) 0.27 - 4.20 uIU/mL 01/18/2025 6:40 PM CDT [facility] Blood Venipuncture / Unknown 01/18/2025 5:47 PM CDT 01/18/2025 5:59 PM CDT Becca Lea RESIDENT CARE MANAGER CHEMISTRY ORDERABLES Final Result Performing Organization Address [facility] Co de Phone Number [facility] CLIA # [id number] [address] [address] * ACUTE HEPATITIS PANEL (01/18/2025 5:47 PM CDT) [facility] HEPATITIS B SURFACE AG NON-REACT NATALIIA Non-react nataliia 01/18/2025 7:01 PM CDT [facility] Comment:A non-reactive test result does not exclude the possibility of exposure to or infection with hepatitis B. HEPATITIS B CORE IGM NON-REACT NATALIIA Non-react nataliia 01/18/2025 7:01 PM CDT [facility] Comment:IgM antibodies to HB c were not detected; does not exclude the possibility of exposure to HBV. HEPATITIS A IGM Non-react nataliia Non-react nataliia 01/18/2025 7:01 PM CDT [facility] Comment:A negative test resu lt does not exclude the possibility of exposure to Hepatitis A virus. HEPATITIS C AB NON-REACT NATALIIA Non-react nataliia 01/18/2025 7:01 PM CDT [facility] Comment:Antibodies to HCV we re not detected, does not exclude the possibility of exposure to HCV. Blood Venipuncture / Unknown 01/18/2025 5:47 PM CDT 01/18/2025 5:59 PM CDT Becca Lea RESIDENT CARE MANAGER CHEMISTRY ORDERABLES Final Result Performing Organization Address City/[facility]/ZIP Co de Phone Number [facility] CLIA # [id number] [address] [place], [place] [address] * (ABNORMAL) VITAMIN B12 AND FOLATE (01/18/2025 5:47 PM CDT) [facility] VITAMIN B12 1,250(H) 211 - 946 pg/mL 01/18/2025 7:55 PM CDT [facility] FOLATE, SERUM >20.0(H) 3.1 - 17.5 ng/mL 01/18/2025 7:55 PM CDT [facility] Blood Venipuncture / Unknown 01/18/2025 5:47 PM CDT 01/18/2025 5:59 PM CDT us Becca Lea RESIDENT CARE MANAGER CHEMISTRY ORDERABLES Final Result [facility] CLIA # [id number] [address] [place] [address] * (ABNORMAL) KAPPA/LAMBDA, FREE LIGHT CHAINS (01/18/2025 5:47 PM CDT) KAPPA FREE LIGHT CHAIN 43.4(H) 3.3 - 19.4 mg/L 01/21/2025 11:44 AM CDT [facility] LAMBDA FREE LIGHT CHAIN 27.4(H) 5.7 - 26.3 mg/L 01/21/2025 11:44 AM CDT [facility] KAPPA/LAMBDA LIGHT CHAIN RATIO 1.58 0.26 - 1.65 01/21/2025 11:44 AM CDT [facility] Comment: Free kappa/lambda ratio in serum of normal individuals is 0.26-1.65. Excess production of free kappa or lambda chains can alter this ratio. Monoclonal free light chains are found in serum of patients with multiple myeloma, Waldenstrom's macroglobulinemia, mu-heavy chain disease, primary amyloidosis, light chain deposition disease, monoclonal gammopathy of undetermined significance, and lymphoproliferative disorders. Measurement of free light chain concentration in serum is useful for diagnosis, prognosis, monitoring disease activity and following response to therapy of these disorders. Blood Venipuncture / Unknown 01/18/2025 5:47 PM CDT 01/18/2025 5:59 PM CDT Narrative [facility] - 01/21/2025 11:44 AM CDT Performing Organization Information: Site ID: [place] Name: [facility] Address: [address] [id number] Director: Jodee Miles MD Becca Lea RESIDENT CARE MANAGER CHEMISTRY ORDERABLES Final Result [facility] * T4 FREE (01/18/2025 5:47 PM CDT) Pathologist [facility] [place] T4 FREE 1.37 0.81 - 1.70 ng/dL 01/18/2025 7:15 PM CDT [facility] Blood Venipuncture / Unknown 01/18/2025 5:47 PM CDT 01/18/2025 5:59 PM CDT Becca Lea NP CHEMISTRY ORDERABLES Final Result Performing Organization Address [facility]/ZIP Co de Phone Number [facility] CLIA # [id number] [address] [place] [address] * (ABNORMAL) PROTEIN ELECTROPHORESIS W/REFLEX,SERUM (01/18/2025 5:47 PM CDT) Pathologist [facility] [place] TOTAL PROTEIN 4.9(L) 6.4 - 8.3 g/dL 01/20/2025 2:56 PM CDT [facility] ALBUMIN SPE 2.75(L) 3.50 - 5.20 g/dL 01/20/2025 2:56 PM CDT [facility] ALPHA 1 GLOBULIN SPE 0.40 0.21 - 0.45 g/dL 01/20/2025 2:56 PM CDT [facility] ALPHA 2 GLOBULIN SPE 0.50 0.50 - 1.01 g/dL 01/20/2025 2:56 PM CDT [facility] BETA GLOBULIN 0.61 0.60 - 1.06 g/dL 01/20/2025 2:56 PM CDT [facility] GAMMA GLOBULIN 0.61 0.60 - 1.33 g/dL 01/20/2025 2:56 PM CDT [facility] SPE INTERP See Interpretation Below 01/20/2025 2:56 PM CDT [facility] Comment: Nonspecific changes. No monoclonal proteinemia detected. Interpreted by: Jesus Triana M.D. INTERPRETED BY: Jesus Triana MD 01/20/2025 2:56 PM CDT [facility] Blood Venipuncture / Unknown 01/18/2025 5:47 PM CDT 01/18/2025 5:59 PM CDT Becca Lea NP CHEMISTRY ORDERABLES Final Result Performing Organization Address [facility] Co de Phone Number [facility] CLIA # [id number] [address] [place] [address] [place] [address] * (ABNORMAL) SEDIMENTATION RATE (01/18/2025 10:36 AM CDT) ESR (SEDIMENTATION RATE) 29(H) 0 - 10 mm/Hr 01/18/2025 4:00 PM CDT [facility] Blood Venipuncture / Unknown 01/18/2025 10:36 AM CDT 01/18/2025 10:47 AM CDT Becca Lea NP HEMATOLOGY ORDERABLES Swati l Result Performing Organization Address [facility]/ZIP Co de Phone Number [facility] CLIA # [id number] [address] [place] [address] * (ABNORMAL) RETICULOCYTES (01/18/2025 10:36 AM CDT) RETICULOCYTES 0.6(L) 0.9 - 2.2 % 01/18/2025 3:41 PM CDT [facility] IMMATURE RETIC FRACTION 2.4(L) 4.3 - 16.9 % 01/18/2025 3:41 PM CDT [facility] RETICULOCYTE, ABSOLUTE 0.0100(L) 0.0260 - 0.0950 10e6/uL 01/18/2025 3:41 PM CDT [facility] RETICULOCYTE HEMOGLOBIN CONTENT 35.4 28.6 - 37.4 pg 01/18/2025 3:41 PM CDT [facility] Blood Venipuncture / Unknown 01/18/2025 10:36 AM CDT 01/18/2025 10:47 AM CDT Becca Lea RESIDENT CARE MANAGER HEMATOLOGY ORDERABLES Swati l Result Performing Organization Address [facility] Co de Phone Number [facility] CLIA # [id number] [address] [address] [place] [address] * LACTATE DEHYDROGENASE (01/18/2025 10:36 AM CDT) LD (LACTATE DEHYDROGENASE) 193 135 - 225 U/L 01/18/2025 3:56 PM CDT [facility] Comment:Slight hemolysis pre sent. Result may be falsely elevated. Blood Venipuncture / Unknown 01/18/2025 10:36 AM CDT 01/18/2025 10:47 AM CDT Becca Lea NP CHEMISTRY ORDERABLES Final Result Performing Organization Address [facility]/ZIP Co de Phone Number [facility] CLIA # [id number] [address] [address] * US ABDOMEN LIMITED (01/18/2025 8:53 AM CDT) Anatomical Region Laterality Modality Abdomen Ultrasound 01/18/2025 8:53 AM CDT Impressions 01/18/2025 9:03 AM CDT IMPRESSION: 1. Limited exam as described. 2. Fatty liver and/or diffuse hepatocellular disease with diffuse increased echotexture, similar to the prior study. Borderline gallbladder wall thickening at 3.1 mm. No well-defined gallstones and no reported right upper quadrant tenderness. 3. Trace perihepatic ascites. No paracentesis performed. Narrative 01/18/2025 9:03 AM CDT Exam: US ABDOMEN LIMITED Date/Time of Exam: 01/18/2025 8:53 AM Reason For Exam: Ascites. Diagnosis: Anemia, unspecified type; Thrombocytopenia. Comparison: Limited abdominal ultrasound 02/20/2022. Findings: Limited visualization of the liver parenchyma in part related to body habitus. Again noted is diffuse increased liver echotexture. Minimal perihepatic ascites. No additional ascites identified and a paracentesis was not performed. The gallbladder is poorly defined. The gallbladder wall measures 3.1 mm which is slightly thickened. No sonographic Hinson sign. The common bile duct is 6.2 mm. The pancreas is obscured by overlying bowel gas. The right kidney is 10.6 cm is poorly visualized. No discrete mass or fluid. Procedure Note Jarocho Bocanegra MD - 01/18/2025 Exam: US ABDOMEN LIMITED Date/Time of Exam: 01/18/2025 8:53 AM Reason For Exam: Ascites. Diagnosis: Anemia, unspecified type; Thrombocytopenia. Comparison: Limited abdominal ultrasound 02/20/2022. Findings: Limited visualization of the liver parenchyma in part related to body habitus. Again noted is diffuse increased liver echotexture. Minimal perihepatic ascites. No additional ascites identified and a paracentesis was not performed. The gallbladder is poorly defined. The gallbladder wall measures 3.1 mm which is slightly thickened. No sonographic Hinson sign. The common bile duct is 6.2 mm. The pancreas is obscured by overlying bowel gas. The right kidney is 10.6 cm is poorly visualized. No discrete mass or fluid. IMPRESSION: 1. Limited exam as described. 2. Fatty liver and/or diffuse hepatocellular disease with diffuse increased echotexture, similar to the prior study. Borderline gallbladder wall thickening at 3.1 mm. No well-defined gallstones and no reported right upper quadrant tenderness. 3. Trace perihepatic ascites. No paracentesis performed. Kasia Coe DO US ORDERABLES Final Result * (ABNORMAL) PLATELET COUNT (01/18/2025 5:20 AM CDT) [facility] PLATELETS 51(L) 140 - 440 K/uL 01/18/2025 7:13 AM CDT [facility] MPV 11.4 8.9 - 12.8 fL 01/18/2025 7:13 AM CDT [facility] Blood Venipuncture / Unknown 01/18/2025 5:20 AM CDT 01/18/2025 5:33 AM CDT Kasia Coe DO HEMATOLOGY ORDERABLES Final Result Performing Organization Address City/[facility] Co de Phone Number [facility] CLIA # [id number] [address] [address] * FIBRINOGEN QUANTITATIVE (01/18/2025 2:19 AM CDT) [facility] FIBRINOGEN 249 200 - 400 mg/dL 01/18/2025 2:48 AM CDT [facility] Blood Venipuncture / Unknown 01/18/2025 2:19 AM CDT 01/18/2025 2:26 AM CDT Kasia Coe DO HEMATOLOGY ORDERABLES Final Result Performing Organization Address City/[facility]/ZIP Co de Phone Number [facility] CLIA # [id number] [address] [address] [place] [address] * D-DIMER (01/18/2025 2:19 AM CDT) [facility] D-DIMER QUANT <0.27 0.00 - 0.50 ug/mL FEU 01/18/2025 2:48 AM CDT [facility] Blood Venipuncture / Unknown 01/18/2025 2:19 AM CDT 01/18/2025 2:26 AM CDT Narrative [facility] - 01/18/2025 2:48 AM CDT D-Dimer assay cutoff value for exclusion of DVT and/or PE is <0.50 ug/mL FEU. As D-Dimer levels increase naturally with age, age stratification for patients over 50 is potentially more appropriate in determining whether a patient should undergo further evaluation for DVT and/or PE than a general cutoff of 0.50 ug/mL FEU. Clinical consideration is recommended. Age Stratified Cutoff Values: 50-60 years: 0.50-0.60 ug/mL FEU 61-70 years: 0.61-0.70 ug/mL FEU 71-80 years: 0.71-0.80 ug/mL FEU Kasia Coe DO HEMATOLOGY ORDERABLES Final Result [facility] CLIA # [id number] [address] [place] [address] * INSERT MIDLINE IV (01/17/2025 11:06 PM CDT) Narrative Kady Swan, GLEN - 01/17/2025 11:06 PM CDT Kady Swan RN 01/17/2025 11:08 PM VASCULAR ACCESS NOTE Midline PATIENT NAME: Lay Soto DATE OF : 1965 CSN: [id number] DATE: 01/17/2025 Room: 02/18 Admit Date: 01/17/2025 Hospital day: LOS: 0 days LINE STATUS: A Midline catheter was successfully inserted and can be used Adult Midline Catheter 01/17/252304 Left: basilic vein (Active) 01/17/252304 basilic vein Earliest Known Present: Present on Admission: No Orientation: Left: Size: Number of Insertion Attempts: 1 Insertion: Patient Tolerance: tolerated well Insertion: Pain Prevention: distraction Power Injectable Compatable: Yes Earliest Known Removed: Removal Indication: Removal Interventions: *Procedural Assist Insertion of Midline catheter WO SQ port >5 yrs 01/17/252305 Inserted Catheter Length (cm) 10 01/17/252305 Midline Catheter (WDL) WDL 01/17/252305 *Blood draw from Midline catheter Blood draw from Midline catheter placed in current admission 01/17/252305 Extremity Circumference, Mid-Upper (cm) 37 01/17/252305 Patency flushes w/o difficulty;positive blood return 01/17/252305 Line Interventions IV capped;aspirate discarded;system flushed 01/17/252305 Dressing Type/Securement antimicrobial dressing;catheter securement device utilized;site adhesive 01/17/252305 Dressing Changed Date 01/17/25 01/17/252305 Needleless Connector Changed Date 01/17/25 01/17/252305 Line Criteria Poor venous access 01/17/252305 Number of days: 0 MIDLINE PROCEDURE AND LAB COLLECTION Ultrasound assessment was performed to assess adequacy of vascular anatomy Adequate vessel was located with less than 45% catheter to vein ratio. Insertion site cleansed for 30 seconds with Chlora-prep Allowed to dry before initial needle stick. A midline was inserted in the BASILIC vein of the left upper arm using ultrasound guidance under sterile technique. 20gauge, 10cm Secure port adhesive used Yes 1 attempts 40minutes required to complete procedure Positive blood return visualized. Neutral pressure cap applied Catheter flushed easily with 5ml of Normal Saline Transparent antimicrobial dressing applied Antimicrobial cap placed Dressing with date, time and initials of RN Labs collected yes No blood cultures Patient tolerated procedure well. Primary care nurse notified of catheter placement Kady Swan RN CARE AND MAINTENANCE This is not a central line. NO BLOOD PRESSURES on arm with powerglide Requires physician order for blood draws The midline is indicated for use as a peripheral IV access only Can remain in place UP TO 29 DAYS as long as catheter insertion site and extremity remain asymptomatic The midline is CT injectable with a maximum pressure of 325psi with rate of 5ml/sec (20 gauge), and 7ml/sec (18 gauge) Securely apply neutral OR positive pressure cap when not in use. Flush catheter with 10ml normal saline before blood draw, after every use, and EVERY 12 HOURS for all in-patients Flush catheter once weekly when not in use(outpatient setting). Flush catheter using pulsating start-stop technique Always use 10ml syringe After blood sampling, flush catheter with 20ml normal saline Change dressing every 7 days and as needed using sterile technique Marcin Wise MD IV THERAPY ORDERABLES Edited Result - Final * (ABNORMAL) IRON, TIBC, AND PERCENT SATURATION (01/17/2025 11:04 PM CDT) IRON 182(H) 59 - 158 ug/dL 01/18/2025 8:50 AM CDT [facility] TIBC 01/18/2025 8:50 AM CDT [facility] Comment:Unable to calculate due to low UIBC. IRON % SATURATION 01/18/2025 8:50 AM CDT [facility] Comment: Unable to calculate due to low UIBC. Blood Venipuncture / Unknown 01/17/2025 11:04 PM CDT 01/17/2025 11:24 PM CDT Toni Webb MD CHEMISTRY ORDERABLES Fi nal Result [facility] CLIA # [id number] [facility] [address] * (ABNORMAL) C-REACTIVE PROTEIN (01/17/2025 11:04 PM CDT) CRP 76.6(H) 0.0 - 5.0 mg/L 01/18/2025 4:00 PM CDT [facility] Blood Venipuncture / Unknown 01/17/2025 11:04 PM CDT 01/17/2025 11:24 PM CDT Becca Lea NP CHEMISTRY ORDERABLES Final Result [facility] CLIA # [id number] [address] [address] * PSA (01/17/2025 11:04 PM CDT) PSA 0.3 0.0 - 4.0 ng/mL 01/18/2025 4:50 PM CDT [facility] Blood Venipuncture / Unknown 01/17/2025 11:04 PM CDT 01/17/2025 11:24 PM CDT Narrative [facility] - 01/18/2025 4:50 PM CDT The concentration of PSA in a given specimen, as determined by assays from different manufacturers, can vary because of differences in assay methods and reagent specificity. Values obtained with different assay methods cannot be used interchangeably. The testing method in use is the SUSANA Electrochemiluminescence Immunoassay. Becca Lea RESIDENT CARE MANAGER CHEMISTRY ORDERABLES Final Result Performing Organization Address City/[facility] Co de Phone Number [facility] CLIA # [id number] [address] [address] * PHOSPHORUS (01/17/2025 11:04 PM CDT) PHOSPHORUS 3.1 2.5 - 4.5 mg/dL 01/18/2025 12:53 AM CDT [facility] Blood Venipuncture / Unknown 01/17/2025 11:04 PM CDT 01/17/2025 11:24 PM CDT Kasia Coe DO CHEMISTRY ORDERABLES Final R esult [facility] CLIA # [id number] [address] [place] [address] * HAPTOGLOBIN (01/17/2025 11:04 PM CDT) HAPTOGLOBIN 105 30 - 200 mg/dL 01/18/2025 4:25 PM CDT [facility] Blood Venipuncture / Unknown 01/17/2025 11:04 PM CDT 01/17/2025 11:24 PM CDT us Becca Lea RESIDENT CARE MANAGER CHEMISTRY ORDERABLES Final Result Performing Organization Address City/[facility]/ZIP Co de Phone Number [facility] CLIA # [id number] [address] [place] [address] * (ABNORMAL) FERRITIN (01/17/2025 11:04 PM CDT) FERRITIN 1,922.0(H) 30.0 - 400.0 ng/mL 01/18/2025 8:38 AM CDT [facility] Blood Venipuncture / Unknown 01/17/2025 11:04 PM CDT 01/17/2025 11:24 PM CDT Toni Webb MD CHEMISTRY ORDERABLES Fi nal Result Performing Organization Address [facility] Co de Phone Number [facility] CLIA # [id number] [address] [place] [address] * (ABNORMAL) BILIRUBIN DIRECT (01/17/2025 11:04 PM CDT) BILIRUBIN DIRECT 0.7(H) 0.0 - 0.3 mg/dL 01/18/2025 2:25 AM CDT [facility] Blood Venipuncture / Unknown 01/17/2025 11:04 PM CDT 01/17/2025 11:24 PM CDT Kasia Coe DO CHEMISTRY ORDERABLES Final R esult Performing Organization Address City/[facility]/ZIP Co de Phone Number [facility] CLIA # [id number] [address] [address] * DIRECT ANTIGLOBULIN TEST W/REFLEX (01/17/2025 8:28 PM CDT) DIRECT ANTIGLOBULIN POLY Negative 01/18/2025 5:15 PM CDT [facility] Blood Venipuncture / Unknown 01/17/2025 8:28 PM CDT 01/18/2025 4:13 PM CDT us Becca Lea RESIDENT CARE MANAGER BLOOD BANK ORDERABLES Swati dc Result [facility] CLIA#[id number] [facility] [place] [address], from Last 3 Months Additional Health Concerns Infection Onset Date Last Indicated 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) 01/19/2025 01/19/2025 Insurance RX [facility] [employer] MED[place] B Advance Directives For more information, please contact: [phone] * Full Code (Latest Code Status on File) Date Activated Date Inactivated Comments 02/08/2025 8:43 PM 02/12/2025 11:20 AM * Full Code Date Activated Date Inactivated Comments 01/18/2025 1:29 AM 02/03/2025 4:09 PM * Full Code Date Activated Date Inactivated Comments 08/10/2024 1:31 PM 08/10/2024 4:44 PM * Full Code Date Activated Date Inactivated Comments 04/24/2022 11:00 AM 04/24/2022 2:35 PM Care Teams Trestle Mainternance Laborer Relationship Specialty Start Date End Date Lay Segovia MD [address] [place] [id number] PCP - General Family Practice 06/15/18
--- OUTSIDE RECORDS SUMMARY | 2025-03-17 13:16 | XMS_ITS | Encounter Summary ---
Author Organization [facility] Address 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
--- OUTSIDE RECORDS SUMMARY | 2025-03-17 13:17 | XMS_ITS | Encounter Summary ---
Author Organization [facility] Address [address] [place] [address] Care Team Providers Care Commercial Relief Driver Name Role Phone Yosvany Segovia MD Primary Care Provider [phone]- [phone] Encounter Details Date Type Department Care Team (Late st Contact Info) Description 09/24/2007 Outpatient Historical [facility] [address] [place] [phone] Timothy Riggs MD [address] [place] [address] Social History Tobacco Use Types Packs/Day Years Used Date Smoking Tobacco: Never Assessed Sex and Gender Information Value Date Recorded Sex Assigned at Not on file 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 Gender Identity Not on file Sexual Orientation Not on file documented as of this encounter Plan of Treatment Not on file documented as of this encounter Visit Diagnoses Not on filedocumented in this encounter Additional Health Concerns Infection Onset Date Last Indicated Resolved Time R/O COVID-19 09/08/2020 09/08/2020 09/09/2020 1:54 AM ADVERTISING LAYOUT WORKER documented as of this encounter Care Teams Commercial Relief Driver Relationship Specialty Start Date End Date Yosvany Segovia MD [address] [facility] 1 [place] [phone] PCP - General Family Practice 06/15/18 documented as of this encounter
--- OUTSIDE RECORDS SUMMARY | 2025-03-17 13:17 | XMS_ITS | Encounter Summary ---
Author Organization [facility] Address [address] [place] [address] Care Team Providers Care Luggage Attendant Name Role Phone Yosvany Segovia MD Primary Care Provider [phone]- [phone] Encounter Details Date Type Department Care Team (Late st Contact Info) Description 09/23/2007 Outpatient Historical [facility] [address] [place] [phone] Timothy Riggs MD [address] [place] [address] Social History Tobacco Use Types Packs/Day Years Used Date Smoking Tobacco: Never Assessed Sex and Gender Information Value Date Recorded Sex Assigned at Not on file 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 Gender Identity Not on file Sexual Orientation Not on file documented as of this encounter Plan of Treatment Not on file documented as of this encounter Visit Diagnoses Not on filedocumented in this encounter Additional Health Concerns Infection Onset Date Last Indicated Resolved Time R/O COVID-19 09/08/2020 09/08/2020 09/09/2020 1:54 AM FLOW NURSE documented as of this encounter Care Teams Luggage Attendant Relationship Specialty Start Date End Date Yosvany Segovia MD [address] [facility] [address] [place] [phone] PCP - General Family Practice 06/15/18 documented as of this encounter
--- OUTSIDE RECORDS SUMMARY | 2025-03-17 13:17 | XMS_ITS | Patient Health Record ---
Author Organization [facility] Address [address] [place] [address] Care Team Providers Care Plate Furnace Operator Name Role Phone Karen Smiley Unavailable [phone] Scotty Steward JR Unavailable [phone] Allergies Allergen (clinical drug ingredient) Drug/Non Drug Allergy documented on EMR Reaction Allergy Type Onset Date Status Penicillin Unknown Drug Allergy Active Substance with sulfonamide structure and antibacterial mechanism of action (substance) Sulfa Antibiotics Unknown Drug Allergy Active Results Component Value Reference Range Notes CBC w\ Auto Diff [id number] Reviewed date:01/14/2025 10:09:00 AM Interpretation: Performing Lab: Notes/Report: Diagnosis Description: Non-pressure chronic ulcer of right calf with fat layer exposed WBC 9.8 4.5-11.0 X10'3 RBC 2.00 4.50-5.90 X10'6 Hgb 6.1 13.5-17.5 G/DL Called to Clive infante's office, left message with answering machine, AM to follow up 01/12/2025 20:47:45 Bao. Hct 18.8 41.0-53.0 % Called to Deya cordova's office, left message with answering machine, AM to follow up 01/12/2025 20:47:45 Bao. MCV 94.0 80.0-100.0 FL MCH 30.5 27.0-31.0 PG MCHC 32.4 31.0-37.0 G/DL Platelet 145 150-400 X10'3 RDW-SD 48.0 35.0-49.0 FL RDW-CV 14.1 12.2-15.6 % MPV 11.5 9.2-12.0 FL Neutro Auto% 84.3 40.0-70.0 % Lymph Auto% 9.2 22.0-44.0 % [place] Auto% 5.7 3.0-7.0 % Eos Auto% .3 2.0-4.0 % Baso Auto% 0.0 0.0-1.0 % Imm Gran% .5 .0-.4 % Neutro Abs 8.23 .80-7.70 Absolute Neutrophil Count 8230 Lymph Abs .90 .10-4.10 [place]age Abs .56 .20-1.00 Eos Abs .03 .00-.40 Baso Abs .00 .00-.20 Imm Gran Abs .05 .00-.10 NRBC# .00 .00-.20 NRBC% .00 .00-.20 /100 int act WBC's Comprehensive Metabolic Pane l (CMP) [id number] Reviewed date:01/14/2025 10:09:00 AM Interpretation: Performing Lab: Notes/Report: Diagnosis Description: Non-pressure chronic ulcer of right calf with fat layer exposed Glucose Serum 129 71-110 MG/DL Testing perfor med at [facility], [address] [place] [address] [place] [address]. CLIA ID#: [id number] BUN 49 7-21 MG/DL Creat 1.28 .57-1.17 MG/DL P-dlcega-s-benzoquinone imine (NAPQI) is a metabolite of acetaminophen, NAPQI concentrations of apparoximately 10 mg/L correlation to toxic levels of acetaminophen demonstrates a greater than or equil to 10% change in results. NAPQI concentrations greater than this may lead to falsely depressed results for patient samples. Use of this assay is not recommended for patients undergoing treatment with phenindione, due to the potential for falsely depressed results. GFR 63.6 Calculation per formed from GFR calculator provided by the [employer]. Glomerular Filtration rate(GRF) is the best overall index of kidney function. Normal GFR varies according to age,sex, body size, and declines with age. The [employer] recommends using the CKD-EPI Creatinine Equation(2020) to estimate GFR. BUN/Creat Ratio 38.3 12.0-20.0 % Total Protein 5.9 5.8-8.0 G/DL Albumin 3.9 3.2-4.8 G/DL Globulin 2.0 2.3-3.5 G/DL Alb/Glob 2.0 0.8-2.2 Calcium 9.2 8.7-10.4 MG/DL Sodium 130 136-145 MMOL/L Potassium 3.9 3.5-5.1 MMOL/L Chloride 90 98-107 MMOL/L CO2 22.4 20.0-31.0 MMOL/L Anion Gap 22 5-15 Alk Phos 92 46-116 Bili Total 1.4 .3-1.2 MG/DL Use of this ass ay is not recommended for patients undergoing treatment with eltrombopag due to the potential for falsely elevated results. AST/SGOT 24 15-37 UNIT/L ALT/SGPT 44 12-78 UNIT/L Osmo Serum,Calculated 285 280-300 MOSM/KG CRP [id number] Reviewed date:01/14/2025 09:10:45 AM Interpretation: Performing Lab: Notes/Report: Diagnosis Description: Non-pressure chronic ulcer of right calf with fat layer exposed CRP 2.75 .40-1.00 MG/DL Reason For Referral No Information Medications Medication SIG (Take, Route, Frequency, Duration) Notes Start Date End Date Status Refresh Active Ascorbic Acid 1000 MG 1 tablet Orally On ce a day Active Ondansetron HCl 8 MG 1 tablet as needed Orally every 8 hours 01/12/2025 Active Aspirin 81 81 MG 1 tablet Orally Once a day Active Vitamin B Complex Ac tive PreserVision AREDS A ctive Apixaban 5 MG as directed Orally BID Active Mineral Oil Active Amiodarone HCl 200 MG 1 tablet Orally On ce a day Active Ammonium Lactate 12 % 1 application Exte rnally Twice a day Active Magnesium Hydroxide 1200 MG as directed Orally Active Al Hyd-Mg Tr-Alg Ac-Sod Bicarb Active Midodrine HCl 5 MG 1 tablet Orally TID 01/12/2025 Active Alfuzosin HCl ER 10 MG 1 tablet immediat kaylynn after the same meal Orally Once a day Active levETIRAcetam 1000 MG 1 tablet Orally ev tori 12 hrs Active predniSONE 10 MG 1 tablet with food o r milk Orally BID 01/12/2025 Active Levothyroxine Sodium 50 MCG 1 tablet in the morning on an empty stomach Orally Once a day Active Tylenol 325 MG 1 tablet as needed Orally every 6 hrs Active Gabapentin 100 MG 1 capsule at bedtime Orally TID 01/12/2025 Active Linezolid 600 MG 1 tablet Orally ever y 12 hrs Active Lactulose 10 GM/15ML 15 mL as needed Ora lly Once a day Active Nicotine Step 2 14 MG/24HR 1 patch to sk in Transdermal Once a day Active Ferrous Sulfate 325 (65 Fe) MG 1 tablet Orally every other day 01/12/2025 Active Fluticasone Propionate 50 MCG/ACT 1 spray in each nostril Nasally Twice a day Active Guar Gum - as directed Active Docusate Sodium 100 MG 1 capsule as need ed Orally Once a day Active Doxycycline Hyclate 100 MG 1 capsule Orally BID Active Cholecalciferol 25 MCG (1000 UT) 1 capsule Orally Once a day Active dilTIAZem HCl 120 MG as directed Orally Active traMADol HCl 100 MG 1 tablet as needed Orally BID 01/12/2025 Active Calcium Carbonate 600 MG 1 tablet with f ood Orally Twice a day Active Cetirizine HCl 10 MG 1 tablet Orally Onc e a day Active Saccharomyces boulardii 250 MG as directed Orally Active Bisacodyl 5 MG 4 tablets Orally Onc e a day 01/12/2025 Active Spironolactone 50 MG 1 tablet Orally Onc e a day Active Bumetanide 1 MG 1 tablet Orally BID 01/12/2025 Active Polyethylene Glycol 3350 17 GM/SCOOP 1 scoop mixed with 8 ounces of fluid Orally Once a day Active Baclofen 10 MG 1 tablet as needed Orally Twice a day Active Potassium Chloride ER 20 MEQ 1 tablet wi th food Orally Once a day Active Clotrimazole-Betamethasone 1-0.05 % 1 application Externally Twice a day Active Social History Tobacco Use: Social History Observation Description Date Details (start date - stop date) Unknown Tobacco Control (Standard) Question Answer Notes Tobacco use: Uses tobacco in other forms Problems Problem Type SNOMED Code ICD Code Onset Dates Problem Status W/U Status Risk Notes Problem [id number] Venous insufficiency (chronic) (peripheral) (I87.2) Active confirmed Problem 67359113352210077 Non-pressure chronic ulcer of right calf with fat layer exposed (L97.212) Active confirmed Problem 74670318 Allergy status to penicillin (Z88.0) Active confirmed Problem 033792916 Morbid obesity (E66.01) Active confirmed Problem 80627711 Chronic venous stasis dermatitis (I87.2) Active confirmed Problem 20473815205610906 Non-pressure chronic ulcer of right lower leg, unspecified ulcer stage (L97.919) Active confirmed Vital Signs Heart Rate 44 /min 01/12/2025 Temperature 97.6 degrees Fahrenheit 01/12/2025 Respiratory Rate 16 /min 01/12/2025 Oximetry 99 % 01/12/2025 Blood pressure diastolic 78 mm Hg 01/12/2025 Weight-kg 151.5 kg 01/12/2025 Blood pressure systolic 140 mm Hg 01/12/2025 Weight 334.0 lbs 01/12/2025 Encounters Encounter Location Date Provider Diagnosis [facility] [address] [place] [address], [place] [address] 01/12/2025 [facility] Non-pressure chronic ulcer of right lower leg, unspecified ulcer stage L97.919 ; Chronic venous stasis dermatitis I87.2 ; Venous insufficiency (chronic) (peripheral) I87.2 ; Non-pressure chronic ulcer of right calf with fat layer exposed L97.212 and Morbid obesity E66.01 [facility] [address] [place] [address], [place] [address] 01/12/2025 [facility] [address] [place] [address], [place] [address] 01/13/2025 [facility] [address] [place] [address], [place] [address] 01/14/2025 [facility] Assessments Encounter Date Diagnosis (ICD Code) Assessment Notes Treatment Notes Treatment Clinical Notes Section Notes 01/12/2025 Chronic venous stasis dermatitis (ICD-10 - I87.2) [...] Antibiotics day #14: Zyvox, doxy (completed 01-10-25) - Restart doxycycline 100 twice daily (01-12-25) Duration depends on wound healing/Patient response 6. Morbid obesity - Could not procure Ozempic outpatient, will work with pillowcase cutter to see if Victoza is an option Check labs today and repeat in 2 weeks 01/12/2025 Non-pressure chronic ulcer of right lower leg, [...] Antibiotics day #14: Zyvox, doxy (completed 01-10-25) - Restart doxycycline 100 twice daily (01-12-25) Duration depends on wound healing/Patient response 6. Morbid obesity - Could not procure Ozempic outpatient, will work with pillowcase cutter to see if Victoza is an option Check labs today and repeat in 2 weeks 01/12/2025 Venous insufficiency (chronic) (peripheral) (ICD-10 - I87.2) [...] Antibiotics day #14: Zyvox, doxy (completed 01-10-25) - Restart doxycycline 100 twice daily (01-12-25) Duration depends on wound healing/Patient response 6. Morbid obesity - Could not procure Ozempic outpatient, will work with pillowcase cutter to see if Victoza is an option Check labs today and repeat in 2 weeks 01/12/2025 Non-pressure chronic ulcer of right calf with [...] Antibiotics day #14: Zyvox, doxy (completed 01-10-25) - Restart doxycycline 100 twice daily (01-12-25) Duration depends on wound healing/Patient response 6. Morbid obesity - Could not procure Ozempic outpatient, will work with pillowcase cutter to see if Victoza is an option Check labs today and repeat in 2 weeks 01/12/2025 Morbid obesity (ICD-10 - E66.01) 1. 59 [...] Antibiotics day #14: Zyvox, doxy (completed 01-10-25) - Restart doxycycline 100 twice daily (01-12-25) Duration depends on wound healing/Patient response 6. Morbid obesity - Could not procure Ozempic outpatient, will work with pillowcase cutter to see if Victoza is an option Check labs today and repeat in 2 weeks 01/12/2025 Other Hospital records reviewed, medication list reviewed and reconciled 1. 59 yo white male with a [...] Antibiotics day #14: Zyvox, doxy (completed 01-10-25) - Restart doxycycline 100 twice daily (01-12-25) Duration depends on wound healing/Patient response 6. Morbid obesity - Could not procure Ozempic outpatient, will work with pillowcase cutter to see if Victoza is an option Check labs today and repeat in 2 weeks 01/26/2025 1. 59 yo white male with a [...] not procure Ozempic outpatient, will work with pillowcase cutter to see if Victoza is an option Labs 01-12-25 W 9.8, Personal Protection Specialist 1.28, CRP 2.75, PLT 145, Hgb 6.1, RBC 2.00, HCT 18.8 Follow up; Laura Ulrich 02/09/2025 1. 59 yo white male with a [...] not procure Ozempic outpatient, will work with pillowcase cutter to see if Victoza is an option Labs 01-12-25 W 9.8, Personal Protection Specialist 1.28, CRP 2.75 Follow up; Laura Ulrich Plan Of Treatment No Information Insurance Providers Payer Name Payer Address Payer Phone Subscriber Number Group Number Insured Name Patient Relationship to Insured Coverage Start Date Coverage End Date [place] Medicare [address] [place] [address] [id number] Yosvany Soto Self - patient is the insured [employer] CLAIMS [address] [place] [address] [phone] [id number] Yosvany Soto Self - patient is the insured [place] Medicaid [address] [place] [address] [phone] [id number] Yosvany Soto Self - patient is the insured Medical (General) History Medical History History ICD Code Pneumonia blood transfusion Low Blood Pressure Surgical History Surgery Date(Month/Year) hernia repair hematoma R leg Hospitalization History Reason Date(Month/Year) see above
[2025-03-17 13:34] LABS: Hematocrit 35.1 % (37-53); Hemoglobin 11.30 g/dL (11.27-16.99); Mean Corpuscular HGB Conc 32.2 g/dL (30-55); Mean Corpuscular Hemoglobin 31.7 pg (27-33); Mean Corpuscular Volume 98.6 fl (82-101); Nucleated Red Blood Cells % 0 %; Platelet Count 208 10^3/cmm (157-399); Red Blood Count 3.56 10^6/uL (3.85-5.65); White Blood Count 9.86 10^3/uL (3.29-11.43)
[2025-03-17 13:36] LABS: ABG PCO2 43.0 mmHg (35-45); ABG PH Result 7.47 (7.35-7.45); Alveolar-Arterial Oxygen Gradi 1.6 mmHg (5-10); Arterial Blood Gas Hematocrit 36.4 % (42-52); Blood Gas Allen Test Pos; Blood Gas Operator Identificat WALCI; Blood Gas Sample Site Radial, right; Blood Gas Sample Type Arterial; Carboxyhemoglobin 1.1 %THgb (0.4-20.1); Glucose Level-ABG 130.0 mg/dL (70-115); HCO3 ABG 31.1 mmol/L (22-26); Ionized Calcium Level - ABG 1.2 mmol/L (1.1-1.4); Methemoglobin 0.6 % (0.4-1.5); Oxygen Saturation ABG 95.5; PO2 ABG 84.2 mmHg (80.0-100.0); PO2 FiO2 Ratio Arterial Blood 400; Potassium Level - ABG 4.3 mmol/L (3.5-5.0); Sodium Level - ABG 132.0 mmol/L (131-143)
[2025-03-17 13:51] LABS: Troponin(5th) Baseline 38 ng/L (0-15)
[2025-03-17 13:58] LABS: Ammonia 72 umol/L (16-60)
[2025-03-17 14:01] LABS: Alanine Aminotransferase 26 U/L (0-41); Albumin Level 3.4 g/dL (3.5-5.2); Alkaline Phosphatase 117 U/L (40-130); Anion Gap 16.3 (5-19); Aspartate Amino Transferase 27 U/L (0-40); Blood Urea Nitrogen 23 mg/dL (8-23); Calcium 9.9 mg/dL (8.5-10.5); Carbon Dioxide 30 mmol/L (22-29); Chloride 90 mmol/L (98-107); Creatinine Clr Calc Pharmacy 99.4259; Globulin 4.0 g/dL (1.3-4.6); Glucose 124 mg/dL (65-115); Osmolality Calculated 279 mOsm/kg (285-295); Potassium 4.3 mmol/L (3.5-5.1); Sodium 132 mmol/L (136-145); Total Protein 7.4 g/dL (6.6-8.7)
[2025-03-17 14:15] LABS: NT Pro B Type Natriuretic Pept 192 pg/mL (0-125)
--- NOTE | 2025-03-17 15:25 | ECG_ITS ---
[email or web address] Test Date: 2025-03-17 Pat Name: Yosvany Soto Department: Room: Gender: Male Cow Trimmer: : 1965 Requested By: Ghassan Brooks Order Number: [id number] Reading MD: Measurements Intervals Decker Rate: 81 P: 0 ME: 0 QRS: 108 QRSD: 90 T: 61 QT: 377 QTc: 438 Interpretive Statements ATRIAL FIBRILLATION RIGHT AXIS DEVIATION [QRS AXIS > 100] LOW QRS VOLTAGE IN PRECORDIAL LEADS [QRS DEFLECTION < 1.0 mV IN CHEST LEADS] ANTEROSEPTAL MYOCARDIAL INFARCTION , PROBABLY OLD [40+ ms Q WAVE IN V1-V4] Compared to ECG 03/17/2025 13:13:48 No significant changes [email or web address]
[2025-03-17 15:33] VITALS: BP 114/77; PULSE 82; O2SAT 99
[2025-03-17 15:54] LABS: Troponin 5 2HR 38.18 ng/L (0-15); Troponin 5 2HR Delta 0.18 ABS# (0-10)
[2025-03-17] MEDS: FUROsemide 10 mg/mL SDV 10mL 80 MG IVP (16:25)
--- NOTE | 2025-03-17 16:41 | PM.HP ---
Providers/Chief Complaint Primary Care Provider: Clarissa Ramirez NP Chief Complaint: chest pain History of Present Illness Yosvany Soto is a 59 year old male history of HFpEF, liver cirrhosis, end-stage liver disease, not candidate for liver transplantation, hepatorenal syndrome, seizures, morbid obesity, COPD, atrial fibrillation/flutter, CKD, PVD, smoking, hypoalbuminemia, chronic hyponatremia, CAD, Charcot's arthropathy, esophageal varices, history of fall, open trimalleolar right ankle fracture 02/12/23 for which he underwent debridement, stabilization with external fixator antibiotics during prior hospitalization discharged on 02/19/23 not on anticoagulation anymore due to recent anemia requiring transfusion who presents to the hospital from a residential facility for complaint of chest pain that began around 630 this morning when he first wake up. It was radiating into his back and into his neck and his shoulder blades. Patient does have a history of esophageal varices and chronic kidney disease. Patient appeared fluid overloaded in the ER therefore was given 80 of Lasix x 1. He denies nausea vomiting diarrhea constipation at this time. He has been complaining of chest pain that started this morning. He may have slept wrong he is not sure. He says his neck hurts and his chest hurts every time he breathes or tries to move. 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 He states he has pain in the left shoulder all the time but is now also having chest pain radiating to the neck. I palpated the neck area and pain was producible. Denies any diaphoresis sense of impending doom. He says he is hungry right now. Medications/Allergies Home Medications ?Medication ?Instructions ?Recorded ?Confirmed ?Last Taken ?Type vitamin B complex (Vitamins B 1 tab PO DAILY@01/04/20 03/17/25 03/17/25 07:00 History Complex tablet) fluticasone propionate 50 2 spray intranasal DAILY@09/08/20 03/17/25 03/17/25 07:00 History mcg/actuation nasal spray,suspension (Flonase Allergy Relief) albuterol sulfate 90 mcg/actuation 1 puff inhalation Q4H PRN 12/11/20 03/17/25 04/03/23 History aerosol inhaler shortness of breath/wheezing diltiazem HCl 120 mg 120 mg PO DAILY@04/24/21 03/17/25 03/17/25 07:00 History capsule,extended release 24 hr (Cardizem CD) cetirizine 10 mg tablet (Zyrtec) 10 mg PO DAILY@05/24/21 03/17/25 03/17/25 07:00 History levothyroxine 50 mcg tablet 50 mcg PO DAILY@08/15/21 03/17/25 03/17/25 06:00 History midodrine 5 mg tablet 5 mg PO TID 09/01/21 03/17/25 03/17/25 History potassium chloride 20 mEq 20 meq PO BID@,09/01/21 03/17/25 03/17/25 07:00 History tablet,extended release gabapentin 100 mg capsule 100 mg PO TID 10/20/21 03/17/25 03/17/25 07:00 History levetiracetam 500 mg tablet 1,000 mg PO BID 12/24/21 03/17/25 03/17/25 History alfuzosin 10 mg tablet,extended 10 mg PO DAILY@11/04/22 03/17/25 03/17/25 07:00 History release 24 hr spironolactone 50 mg tablet 100 mg PO DAILY@11/04/22 03/17/25 03/17/25 07:00 History acetaminophen 325 mg tablet 325 - 650 mg PO Q4H PRN Pain 04/19/23 03/17/25 Unknown History (Tylenol) CAM BOOT #1 ea 05/08/23 03/17/25 Unknown Rx Wheel chair with elevated foot #1 ea 06/19/23 03/17/25 Unknown Rx rests and seat cushion ascorbic acid (vitamin C) 1,000 mg 1,000 mg PO Q12H 30 days #60 tabs 11/27/23 03/17/25 03/16/25 12:00 Rx tablet,extended release cholecalciferol (vitamin D3) 25 25 mcg PO DAILY 30 days #30 caps 11/27/23 03/17/25 03/17/25 07:00 Rx mcg (1,000 unit) capsule [place] Boot for the Right Foot #1 ea 03/11/24 03/17/25 Unknown Rx aluminum-mag hydroxide-simethicone 30 ml PO QID PRN Constipation 10/05/24 03/17/25 Unknown History 400 mg-400 mg-40 mg/5 mL oral susp (Mylanta Maximum Strength) bisacodyl 5 mg tablet,delayed 5 mg PO DAILY 10/05/24 03/17/25 03/17/25 History release bumetanide 1 mg tablet 2 mg PO BID 10/05/24 03/17/25 03/17/25 History docusate sodium 100 mg capsule 100 mg PO DAILY 10/05/24 03/17/25 03/17/25 07:00 History phenylephrine 0.25 %-mineral oil 1 applic IA Q6H 10/05/24 03/17/25 Unknown History 14 %-petrolatm 74.9 % rectal ointment (Preparation H) polyethylene glycol 3350 17 17 g PO DAILY 10/05/24 03/17/25 03/17/25 History gram/dose oral powder (Miralax) naloxone 4 mg/actuation nasal 4 mg intranasal Q2M PRN Allergic 02/08/25 03/17/25 Unknown History spray (Narcan) Symptoms lactulose 10 gram/15 mL oral 45 g PO QID hepatic encephalopathy 03/05/25 03/17/25 Unknown History solution Saccharomyces boulardii 10 billion 10,000 mmu cells PO DAILY 03/17/25 03/17/25 03/17/25 07:00 History cell capsule amiodarone 200 mg tablet 200 mg PO DAILY 03/17/25 03/17/25 03/17/25 07:00 History ammonium lactate 12 % lotion 1 applic topical BID 03/17/25 03/17/25 03/16/25 History baclofen 10 mg tablet 10 mg PO BID 03/17/25 03/17/25 03/17/25 History calcium carbonate 1,000 mg PO DAILY 03/17/25 03/17/25 03/17/25 History carboxymethylcellulose sodium 0.5 1 drp ophthalmic (eye) DAILY dry 03/17/25 03/17/25 Unknown History % eye drops (Refresh Tears) eyes dextran 70-hypromellose eye drops 1 drp ophthalmic (eye) QID PRN dry 03/17/25 03/17/25 Unknown History in a dropperette (Artificial Tears eyes (PF) drops in a dropperette) magnesium hydroxide 400 mg/5 mL 30 ml PO DAILY PRN constipation 03/17/25 03/17/25 Unknown History oral suspension (Milk of Magnesia) ondansetron HCl 8 mg tablet 8 mg PO Q8H 03/17/25 03/17/25 Unknown History sodium phosphates 19 gram-7 118 ml IA DAILY PRN Constipation 03/17/25 03/17/25 Unknown History gram/118 mL enema (Fleet Enema) thiamine mononitrate (vit B1) 100 100 mg PO DAILY 03/17/25 03/17/25 03/17/25 07:00 History mg tablet tramadol 50 mg tablet 100 mg PO TID PRN pain 03/17/25 03/17/25 03/17/25 History Allergies Allergy/AdvReac Type Severity Reaction Status Date / Time Penicillins Allergy Severe ALGY-Difficulty Verified 10/15/24 07:22 Breathing Sulfa (Sulfonamide Allergy Severe ALGY-Swell Verified 10/15/24 07:22 Antibiotics) Lip/Tongue/Throat PFSH Acute PFSH: Medical History (Updated 03/17/25 @ 16:53 by Edita Orellana MD) Chronic kidney disease Physical deconditioning Unspecified atrial flutter Alcoholic polyneuropathy Advanced chronic obstructive pulmonary disease Hepatic failure, unspecified without coma Chronic atrial fibrillation, unspecified Hypothyroidism Urinary tract infection BMI 50.0-59.9, adult Acute hepatic encephalopathy Hypertension COPD (chronic obstructive pulmonary disease) History of peritonitis Morbid obesity Contraindication to deep vein thrombosis (DVT) prophylaxis Splenomegaly Portal hypertension Esophageal varices PVD (peripheral vascular disease) Seizure Stereotyped movements Anasarca CHF (congestive heart failure) Echocardiogram done in 2019 shows an EF of 40 to 45% with hypokinetic septum, anteroseptum and inferior wall, biatrial enlargement Encephalopathy, hepatic Upper gastrointestinal hemorrhage due to gastritis EGD with pyloric ulcer in 05/2021 Occult blood in stools Peritoneal dialysis catheter in situ Removed in 05/2021 due to recurrent bacterial peritonitis Anemia Alcoholic cirrhosis of liver with ascites Hepatorenal syndrome BPH loc w urin obs/LUTS C. difficile diarrhea Chronic hyponatremia varies with volume status Pleural effusion associated with hepatic disorder Pneumonia Fracture of fourth metatarsal bone of left foot Fracture of third metatarsal bone of left foot Fracture of second metatarsal bone of left foot Non-pressure chronic ulcer of other part of left foot limited to breakdown of skin Charcot's joint of left foot Atrial fibrillation and flutter Ataxia Hx of esophageal varices Charcot's arthropathy left foot Neuropathy PVD (peripheral vascular disease) End-stage liver disease not a candidate for transplant or tips at last evaluation Erectile dysfunction Peyronie disease Surgical History Status post surgery (07/05/20) peritoneal catheter for ascites History of tonsillectomy H/O colonoscopy H/O esophagogastroduodenoscopy History of abdominal paracentesis Hx of umbilical hernia repair Hx of vasectomy Family History Grandfather CAD (coronary artery disease) Grandmother CAD (coronary artery disease) Cancer Father Cancer Denies family history of Anesthesia complication Bleeding disorder Social History Smoking and tobacco/nicotine status: former use of tobacco/nicotine Substance/Drug Use: never Housing: [facility] Marital status: Current occupational status: disabled Do you think of yourself as: Straight/Heterosexual Current gender identity: Male Vitals/I&O/Wt Last Vital Signs Temp 97.7 F 03/17/25 13:14 Pulse 82 03/17/25 15:33 Resp 17 03/17/25 13:14 BP 114/77 03/17/25 15:33 Pulse Ox 99 03/17/25 15:33 O2 Del Method Room Air 03/17/25 13:14 Weight last 48 hrs Weight 145.15 kg Physical Exam Narrative: General: Alert oriented x3, patient seen laying in bed appearing comfortable at this time. Saturating 99% on room air. Not requiring any oxygen at this time. HEENT: Normocephalic, atraumatic, EOMI, Cardio: Regular rate rhythm, normal S1-S2, Respiratory: Clear to auscultation bilaterally no wheezes no rhonchi. GI: Abdomen soft, nontender, mildly distended, bowel sounds + Behavior: Appropriate and cooperative Extremities: Trace edema bilateral lower extremities. Data 03/17/25 13:28 03/17/25 13:28 A&P Assessment and plan (1) CHF (congestive heart failure): (2) CHF exacerbation: (3) Chronic atrial fibrillation, unspecified: (4) Obesity: (5) Cirrhosis: (6) Alcoholic cirrhosis of liver: (7) Chronic kidney disease: (8) Chest pain: Plan # Chest pain reproducible to palpation and movement. 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 #History of anemia requiring blood transfusion ? Patient complains of chest pain. Initial troponin 38, 2-hour troponin 38.18. Await 6-hour troponin. ? EKG did not show any acute ischemic changes. ? Aspirin 324 given x 1 ? Continue furosemide 40 IV twice daily ? Continue home amiodarone, baclofen, diltiazem 30 every 6 ? Continue Keppra 1000 twice daily, levothyroxine 50 ? Continue midodrine 5 3 times daily ? Continue spironolactone, potassium. ? Place Weir catheter for accurate output ? Check echocardiogram to rule out wall motion abnormalities. ? Patient is not on anticoagulation due to history of anemia. ? Creatinine 1.2 today. ? Check CBC CMP in a.m. ? Check PT/INR ? Continue home lactulose ? Patient's chest pain is most likely musculoskeletal in origin. It is reproducible on palpation at the neck region and chest region. He states every time he moves or breathes it hurts. ? I will order hydrocodone 5 every 8 hours for chest pain. Full code DVT prophylaxis: SCDs PDMP PDMP Reviewed: Not Reviewed Attestations Medical Necessity Statement*: chest pain, CHF exacerbation Diagnoses CHF (congestive heart failure) I50.9 CHF exacerbation I50.9 Chronic atrial fibrillation, unspecified I48.20 Obesity E66.9 Cirrhosis K74.60 Alcoholic cirrhosis of liver K70.30 Chronic kidney disease N18.9 Chest pain R07.9
[2025-03-17 17:08] VITALS: BP 126/83; PULSE 79; RESP 16; O2SAT 100
[2025-03-17 17:35] LABS: Thyroid Stimulating Hormone 4.81 uIU/mL (0.27-4.20)
[2025-03-17 17:53] LABS: Lactic Sepsis W/Reflex 1.8 mmol/L (0.5-2.2)
[2025-03-17 17:58] VITALS: RESP 24
[2025-03-17] MEDS: morphine 4 mg/mL SDV 1 mL 2 MG IVP (17:58)
[2025-03-17] MEDS: lactulose oral liq 20 gm/30 mL UDC 45 GM PO ×2 (17:59→20:24)
[2025-03-17 18:53] VITALS: BP 131/80; PULSE 75; RESP 17; O2SAT 96
--- NOTE | 2025-03-17 19:19 | ECG_ITS ---
transOMIC Test Date: 2025-03-17 Pat Name: Yosvany Soto Department: Room: 105 Gender: Male [employer]: : 1965 Requested By: Ghassan Brooks Order Number: [id number] Reading MD: Measurements Intervals [place] Rate: 69 P: 0 NM: 0 QRS: 99 QRSD: 103 T: 57 QT: 423 QTc: 455 Interpretive Statements ATRIAL FIBRILLATION BORDERLINE RIGHT AXIS DEVIATION [QRS AXIS > 90] LOW QRS VOLTAGE IN PRECORDIAL LEADS [QRS DEFLECTION < 1.0 mV IN CHEST LEADS] POSSIBLE ANTERIOR MYOCARDIAL INFARCTION , OF INDETERMINATE AGE [30 ms Q WAVE IN V3/V4, OR R < 0.2 mV IN V4] Compared to ECG 03/17/2025 15:25:34 No significant changes [email or web address]
[2025-03-17 20:00] VITALS: BP 115/61; PULSE 73; RESP 21; TEMP 36.7; O2SAT 95
[2025-03-17 20:27] LABS: Troponin 5 6HR 35.39 ng/L (0-15)
[2025-03-17 20:29] LABS: Troponin 5 6HR Delta -2.61 ng/L (0-12)
[2025-03-18] VITALS (13 sets, daily range): BP systolic 91–127; BP diastolic 63–81; PULSE 74–100; RESP 16–22; TEMP 36.5–36.7; O2SAT 92–99
[2025-03-18 03:38] LABS: Hematocrit 33.6 % (37-53); Hemoglobin 10.50 g/dL (11.27-16.99); Mean Corpuscular HGB Conc 31.3 g/dL (30-55); Mean Corpuscular Hemoglobin 31.1 pg (27-33); Mean Corpuscular Volume 99.4 fl (82-101); Nucleated Red Blood Cells % 0 %; Platelet Count 201 10^3/cmm (157-399); Red Blood Count 3.38 10^6/uL (3.85-5.65); White Blood Count 9.02 10^3/uL (3.29-11.43)
[2025-03-18 04:03] LABS: Alanine Aminotransferase 31 U/L (0-41); Albumin Level 3.1 g/dL (3.5-5.2); Alkaline Phosphatase 112 U/L (40-130); Aspartate Amino Transferase 37 U/L (0-40); Blood Urea Nitrogen 26 mg/dL (8-23); Calcium 9.7 mg/dL (8.5-10.5); Carbon Dioxide 30 mmol/L (22-29); Chloride 91 mmol/L (98-107); Creatinine Clr Calc Pharmacy 85.2222; Globulin 3.9 g/dL (1.3-4.6); Glucose 103 mg/dL (65-115); Magnesium 2.1 mg/dL (1.7-2.3); Osmolality Calculated 279 mOsm/kg (285-295); Sodium 132 mmol/L (136-145); Total Protein 7.0 g/dL (6.6-8.7)
[2025-03-18 04:11] LABS: Anion Gap 15.9 (5-19); Potassium 4.9 mmol/L (3.5-5.1)
[2025-03-18] MEDS: HYDROcodone-acetaminophen 5-325 mg Tablet 1 TAB PO (05:10)
--- NOTE | 2025-03-18 08:22 | ECG_ITS ---
[facility] Test Date: 2025-03-18 Pat Name: Yosvany Soto Department: Room: 105 Gender: Male [employer]: : 1965 Requested By: Edita Orellana Order Number: [id number] Reading MD: Measurements Intervals [place] Rate: 81 P: 0 ND: 0 QRS: 104 QRSD: 108 T: 40 QT: 381 QTc: 444 Interpretive Statements ATRIAL FIBRILLATION RIGHT AXIS DEVIATION [QRS AXIS > 100] LOW QRS VOLTAGE IN PRECORDIAL LEADS [QRS DEFLECTION < 1.0 mV IN CHEST LEADS] INCOMPLETE RIGHT BUNDLE BRANCH BLOCK [90+ ms QRS DURATION, TERMINAL R IN V1/V2, 40+ ms S IN I/aVL/V4/V5/V6] Compared to ECG 03/17/2025 19:19:23 Incomplete right bundle-branch block now present Myocardial infarct finding no longer present [id number]
[2025-03-18] MEDS: morphine 4 mg/mL SDV 1 mL IVP (08:46)
[2025-03-18 09:28] LABS: Troponin(5th) Baseline 47 ng/L (0-15)
--- NOTE | 2025-03-18 09:31 | PC.NURSE ---
Patient refused lactulose this am. Dr Orellana is aware
--- NOTE | 2025-03-18 10:13 | USCV_ITS ---
Yosvany Soto Age: 59 Gender: M : 1965 Exam Date: 03/18/2025 16:00 Ordering Phys: Edita Orellana MD Technologist: Payam Moe Exam Location: [facility] [place] Indication: chest pain BP: 118 / 70 HR: 81 Rhythm: Sinus Technical Quality: Adequate MEASUREMENTS (Male / Female) Normal Values 2D ECHO LV Diastolic Diameter PLAX 3.7 cm 4.2 - 5.9 / 3.9 - 5.3 cm IVS Diastolic Thickness 1.1 cm 0.6 - 1.0 / 0.6 - 0.9 cm IVS Systolic Thickness 1.8 cm LVPW Diastolic Thickness 1.4 cm 0.6 - 1.0 / 0.6 - 0.9 cm LVPW Systolic Thickness 1.5 cm LVOT Diameter 2.0 cm LV Ejection Fraction 2D Teich 77.3 % LV Ejection Fraction MOD 4C 78.3 % LV Ejection Fraction MOD 2C 65.6 % LV Ejection Fraction 2C AL 65.0 % LA Diameter 3.4 cm RA Systolic Volume 4C AL 34.5 ml RA Systolic Volume 4C MOD 35.5 ml LA Sys Volume AL 54.7 cm cubed LA Sys Volume Index AL 18.7 cm cubed/m squared Aorta at Sinotubular Diameter 2.4 cm IVC Diameter 2.2 cm M-MODE LA Ao Ratio MM 1.4 AV Cusp Separation MM 1.6 cm DOPPLER AV Peak Velocity 141.7 cm/s LVOT Peak Velocity 99.0 cm/s AV Area Cont Eq vti 2.4 cm squared AV Area Cont Eq pk 2.2 cm squared MV Peak Velocity 135.0 cm/s MV Area PHT 5.2 cm squared Mitral E to A Ratio 28.5 TR Peak Velocity 207.0 cm/s TR Peak Gradient 17.1 mmHg TR Mean Velocity 176.0 cm/s TR Mean Gradient 13.0 mmHg TR Velocity Time Integral 47.0 cm PV Peak Velocity 89.0 cm/s RV Ejection Time 0.2 s FINDINGS Left Ventricle Normal left ventricular size, systolic function and wall thickness, with no regional wall motion abnormalities. Left ventricular ejection fraction is estimated at 60 %. In the presence of atrial fibrillation diastolic function cannot be assessed accurately Right Ventricle The right ventricle is normal in size and function. Right Atrium The right atrium is normal in size. Left Atrium The left atrium is normal in size. Mitral Valve Moderate mitral annular calcification. No mitral valve stenosis. Trace mitral valve regurgitation. Aortic Valve Structurally normal aortic valve without significant sclerosis or stenosis. There is no aortic regurgitation. Tricuspid Valve Structurally normal tricuspid valve without significant stenosis or regurgitation. Pulmonary artery systolic pressure is normal. Pulmonic Valve Structurally normal pulmonic valve without significant stenosis. There is no pulmonic regurgitation. Pericardium Normal pericardium without effusion. Aorta Normal ascending aorta dimension. IVC The inferior vena cava appears normal. CONCLUSIONS Normal left ventricular size, systolic function and wall thickness, with no regional wall motion abnormalities. Left ventricular ejection fraction is estimated at 60 %. In the presence of atrial fibrillation diastolic function cannot be assessed accurately No significant valve abnormalities. There is no pericardial effusion. Right atrial pressure is around 5 mm of mercury. Abdiel Strong MD (Electronically Signed) Final Date: 18 March 2025 17:51 S
[2025-03-18 11:20] LABS: Troponin 5 2HR 51.72 ng/L (0-15); Troponin 5 2HR Delta 4.72 ABS# (0-10)
--- NOTE | 2025-03-18 11:25 | P.PN_ITS ---
Subjective 2 Subjective: seen today complains of chest pain and neck pain states morphine and lidocaine patch resolved neck pain vitals are stable pain is reproducible to palpation pt is bedbound, doesnot walk cr 1.4 today Vitals/I&O/Wt Last Vital Signs Temp 97.9 F 03/18/25 08:00 Pulse 83 03/18/25 08:04 Resp 22 H 03/18/25 08:46 BP 108/70 03/18/25 08:00 Pulse Ox 95 03/18/25 08:04 O2 Del Method Room Air 03/18/25 08:04 03/17/25 03/18/25 03/18/25 22:59 06:59 14:59 Intake Total 360 / 360 240 / 600 360 / 360 Output Total 450 / 450 800 / 1250 600 / 600 Balance -90 / -90 -560 / -650 -240 / -240 Weight last 48 hrs Weight 155.99 kg Weight 145.15 kg Physical Exam 2 Narrative: General: Alert oriented x3, patient seen laying in bed appearing comfortable at this time. Saturating 99% on room air. Not requiring any oxygen at this time. HEENT: Normocephalic, atraumatic, EOMI, neck pain reproducible to palpation, no neck stiffness Cardio: Regular rate rhythm, normal S1-S2, Respiratory: Clear to auscultation bilaterally no wheezes no rhonchi. GI: Abdomen soft, nontender, mildly distended, bowel sounds + Behavior: Appropriate and cooperative Extremities: Trace edema bilateral lower extremities. Data 03/18/25 02:51 03/18/25 02:51 A&P Assessment and plan (1) CHF (congestive heart failure): (2) CHF exacerbation: (3) Chronic atrial fibrillation, unspecified: (4) Obesity: (5) Cirrhosis: (6) Alcoholic cirrhosis of liver: (7) Chronic kidney disease: (8) Chest pain: Plan #Chest pain reproducible to palpation and movement. 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 #History of anemia requiring blood transfusion ? Patient complains of chest pain. Initial troponin 38, 2-hour troponin 38.18. Await 6-hour troponin. ? EKG did not show any acute ischemic changes. ? Aspirin 324 given x 1 ? Continue furosemide 40 IV twice daily ? Continue home amiodarone, baclofen, diltiazem 30 every 6 ? Continue Keppra 1000 twice daily, levothyroxine 50 ? Continue midodrine 5 3 times daily ? Continue spironolactone, potassium. ? Place Weir catheter for accurate output ? Check echocardiogram to rule out wall motion abnormalities. ? Patient is not on anticoagulation due to history of anemia. ? Creatinine 1.2 today. ? Check CBC CMP in a.m. ? Check PT/INR ? Continue home lactulose ? Patient's chest pain is most likely musculoskeletal in origin. It is reproducible on palpation at the neck region and chest region. He states every time he moves or breathes it hurts. ? I will order hydrocodone 5 every 8 hours for chest pain. Full code DVT prophylaxis: SCDs 03/18/2025 cr at pt's baseline 1.2-1.4 continue lasix 40 bid echo pending neck pain present but relieved with lidocaine patch and morphine i still dont believe this is cardiac in origin ekg non ischemic will check trops again echo pending check ct chest and neck PDMP PDMP Reviewed: Not Reviewed Attestations 2 Medical Necessity Statement*: chest pain, CHF exacerbation Diagnoses CHF (congestive heart failure) I50.9 CHF exacerbation I50.9 Chronic atrial fibrillation, unspecified I48.20 Obesity E66.9 Cirrhosis K74.60 Alcoholic cirrhosis of liver K70.30 Chronic kidney disease N18.9 Chest pain R07.9
--- NOTE | 2025-03-18 12:59 | PM.CONSULT ---
Providers/Reason For Consult Consulting Physician/Specialty*: Dr. Orellana Reason for Consult*: Chest pain Attending Physician: Edita Orellana MD Primary Care Provider: Clarissa Ramirez NP History of Present Illness History of Present Illness Yosvany Soto is a 59 year old male past medical history significant for morbid obesity with possible diastolic dysfunction, normal ejection fraction by echocardiogram in October 2024, patient says he had normal angiogram as an outside hospital denies smoking, he has significant history of liver cirrhosis with esophageal varices admitted with volume overload status was diuresed effectively now complains of chest pain which he describes only on taking deep breath sometime he feels that pain while taking a deep breath goes towards the neck sometimes central chest but denies any exertional component to it. Twelve-lead EKG did not show significant ST changes, third-generation troponin has not jumped out of the proportion Review of Systems Const: Denies: fever(s) or chills Eyes: Denies: photophobia ENMT: Denies: enlarged tonsils Card: Reports: chest pain, edema and swelling of feet/ankles Resp: Denies: dyspnea GI: Denies: abdominal pain : Denies: dysuria, urinary frequency or urinary urgency Musc: Denies: neck pain, back pain or joint warmth Skin/Breast: Reports: surgical incision; Denies: rash Psych: Reports: sleeping more All/Imm: Denies: acute wheezing Medications/Allergies Home Medications ?Medication ?Instructions ?Recorded ?Confirmed ?Last Taken ?Type vitamin B complex (Vitamins B 1 tab PO DAILY@01/04/20 03/17/25 03/17/25 07:00 History Complex tablet) fluticasone propionate 50 2 spray intranasal DAILY@09/08/20 03/17/25 03/17/25 07:00 History mcg/actuation nasal spray,suspension (Flonase Allergy Relief) albuterol sulfate 90 mcg/actuation 1 puff inhalation Q4H PRN 12/11/20 03/17/25 04/03/23 History aerosol inhaler shortness of breath/wheezing diltiazem HCl 120 mg 120 mg PO DAILY@04/24/21 03/17/25 03/17/25 07:00 History capsule,extended release 24 hr (Cardizem CD) cetirizine 10 mg tablet (Zyrtec) 10 mg PO DAILY@05/24/21 03/17/25 03/17/25 07:00 History levothyroxine 50 mcg tablet 50 mcg PO DAILY@08/15/21 03/17/25 03/17/25 06:00 History midodrine 5 mg tablet 5 mg PO TID 09/01/21 03/17/25 03/17/25 History potassium chloride 20 mEq 20 meq PO BID@07,19 09/01/21 03/17/25 03/17/25 07:00 History tablet,extended release gabapentin 100 mg capsule 100 mg PO TID 10/20/21 03/17/25 03/17/25 07:00 History levetiracetam 500 mg tablet 1,000 mg PO BID 12/24/21 03/17/25 03/17/25 History alfuzosin 10 mg tablet,extended 10 mg PO DAILY@11/04/22 03/17/25 03/17/25 07:00 History release 24 hr spironolactone 50 mg tablet 100 mg PO DAILY@11/04/22 03/17/25 03/17/25 07:00 History acetaminophen 325 mg tablet 325 - 650 mg PO Q4H PRN Pain 04/19/23 03/17/25 Unknown History (Tylenol) CAM BOOT #1 ea 05/08/23 03/17/25 Unknown Rx Wheel chair with elevated foot #1 ea 06/19/23 03/17/25 Unknown Rx rests and seat cushion ascorbic acid (vitamin C) 1,000 mg 1,000 mg PO Q12H 30 days #60 tabs 11/27/23 03/17/25 03/16/25 12:00 Rx tablet,extended release cholecalciferol (vitamin D3) 25 25 mcg PO DAILY 30 days #30 caps 11/27/23 03/17/25 03/17/25 07:00 Rx mcg (1,000 unit) capsule Beaver Boot for the Right Foot #1 ea 03/11/24 03/17/25 Unknown Rx aluminum-mag hydroxide-simethicone 30 ml PO QID PRN Constipation 10/05/24 03/17/25 Unknown History 400 mg-400 mg-40 mg/5 mL oral susp (Mylanta Maximum Strength) bisacodyl 5 mg tablet,delayed 5 mg PO DAILY 10/05/24 03/17/2503/17/25 History release bumetanide 1 mg tablet 2 mg PO BID 10/05/24 03/17/25 03/17/25 History docusate sodium 100 mg capsule 100 mg PO DAILY 10/05/24 03/17/25 03/17/25 07:00 History phenylephrine 0.25 %-mineral oil 1 applic HI Q6H 10/05/24 03/17/25 Unknown History 14 %-petrolatm 74.9 % rectal ointment (Preparation H) polyethylene glycol 3350 17 17 g PO DAILY 10/05/24 03/17/25 03/17/25 History gram/dose oral powder (Miralax) naloxone 4 mg/actuation nasal 4 mg intranasal Q2M PRN Allergic 02/08/25 03/17/25 Unknown History spray (Narcan) Symptoms lactulose 10 gram/15 mL oral 45 g PO QID hepatic encephalopathy 03/05/25 03/17/25 Unknown History solution Saccharomyces boulardii 10 billion 10,000 mmu cells PO DAILY 03/17/25 03/17/25 03/17/25 07:00 History cell capsule amiodarone 200 mg tablet 200 mg PO DAILY 03/17/25 03/17/25 03/17/25 07:00 History ammonium lactate 12 % lotion 1 applic topical BID 03/17/25 03/17/25 03/16/25 History baclofen 10 mg tablet 10 mg PO BID 03/17/25 03/17/25 03/17/25 History calcium carbonate 1,000 mg PO DAILY 03/17/25 03/17/25 03/17/25 History carboxymethylcellulose sodium 0.5 1 drp ophthalmic (eye) DAILY dry 03/17/25 03/17/25 Unknown History % eye drops (Refresh Tears) eyes dextran 70-hypromellose eye drops 1 drp ophthalmic (eye) QID PRN dry 03/17/25 03/17/25 Unknown History in a dropperette (Artificial Tears eyes (PF) drops in a dropperette) magnesium hydroxide 400 mg/5 mL 30 ml PO DAILY PRN constipation 03/17/25 03/17/25 Unknown History oral suspension (Milk of Magnesia) ondansetron HCl 8 mg tablet 8 mg PO Q8H 03/17/25 03/17/25 Unknown History sodium phosphates 19 gram-7 118 ml HI DAILY PRN Constipation 03/17/25 03/17/25 Unknown History gram/118 mL enema (Fleet Enema) thiamine mononitrate (vit B1) 100 100 mg PO DAILY 03/17/25 03/17/25 03/17/25 07:00 History mg tablet tramadol 50 mg tablet 100 mg PO TID PRN pain 03/17/25 03/17/25 03/17/25 History Allergies Allergy/AdvReac Type Severity Reaction Status Date / Time Penicillins Allergy Severe ALGY-Difficulty Verified 10/15/24 07:22 Breathing Sulfa (Sulfonamide Allergy Severe ALGY-Swell Verified 10/15/24 07:22 Antibiotics) Lip/Tongue/Throat Current Medications Generic Name Dose Route Start Last Admin Trade Name Freq PRN Reason Stop Dose Admin Hydrocodone Bitart/Acetaminophen 1 tab 03/17/25 17:49 03/18/25 05:10 Hydrocodone-Acetaminophen 5-325 Mg Tablet PO 1 tab Q8H PRN Administration MODERATE PAIN Amiodarone HCl 200 mg 03/18/25 09:00 03/18/25 08:47 Amiodarone 200 Mg Tablet PO 200 mg DAILY DHAVAL Administration Baclofen 10 mg 03/17/25 18:00 03/18/25 08:47 Baclofen 10 Mg Tablet PO 10 mg BID DHAVAL Administration Gabapentin 100 mg 03/17/25 21:00 03/18/25 08:47 Gabapentin 100 Mg Capsule PO 100 mg TID DHAVAL Administration Lactulose 45 gm 03/17/25 17:23 03/18/25 11:34 Lactulose Oral Liq 20 Gm/30 Ml Udc PO Not Given QID DHAVAL Levetiracetam 1,000 mg 03/17/25 18:00 03/18/25 08:46 Levetiracetam 500 Mg Tablet PO 1,000 mg BID DHAVAL Administration Levothyroxine Sodium 50 mcg 03/18/25 06:00 03/18/25 05:10 Levothyroxine 50 Mcg Tablet PO 50 mcg DAILY@06 DHAVAL Administration Midodrine 5 mg 03/17/25 21:00 03/18/25 08:47 Midodrine 5 Mg Tablet PO 5 mg TID DHAVAL Administration Non-Formulary Medication 1 tab 03/18/25 07:00 03/18/25 08:55 Vitamin B Complex [Vitamins B Complex] PO Not Given DAILY@ [facility] Pantoprazole Sodium 40 mg 03/18/25 09:00 03/18/25 08:[address] 40 Mg Tablet PO 40 mg DAILY DHAVAL Administration Spironolactone 50 mg 03/18/25 07:00 03/18/25 05:10 Spironolactone 25 Mg Tablet PO 50 mg DAILY@07 [facility] Administration Thiamine Mononitrate 100 mg 03/18/25 09:00 03/18/25 08:47 Thiamine 100 Mg Tablet PO 100 mg DAILY DHAVAL Administration Vitamin D 1,000 unit 03/18/25 09:00 03/18/25 08:47 Cholecalciferol (Vitamin D3) 1,000 Unit Tablet PO 1,000 unit DAILY DHAVAL Administration PFSH Acute PFSH: Medical History (Updated 03/18/25 @ 15:31 by Abdiel Strong MD) Chronic kidney disease Physical deconditioning Unspecified atrial flutter Alcoholic polyneuropathy Advanced chronic obstructive pulmonary disease Hepatic failure, unspecified without coma Chronic atrial fibrillation, unspecified Hypothyroidism Urinary tract infection BMI 50.0-59.9, adult Acute hepatic encephalopathy Hypertension COPD (chronic obstructive pulmonary disease) History of peritonitis Morbid obesity Contraindication to deep vein thrombosis (DVT) prophylaxis Splenomegaly Portal hypertension Esophageal varices PVD (peripheral vascular disease) Seizure Stereotyped movements Anasarca CHF (congestive heart failure) Echocardiogram done in 2019 shows an EF of 40 to 45% with hypokinetic septum, anteroseptum and inferior wall, biatrial enlargement Encephalopathy, hepatic Upper gastrointestinal hemorrhage due to gastritis EGD with pyloric ulcer in 05/2021 Occult blood in stools Peritoneal dialysis catheter in situ Removed in 05/2021 due to recurrent bacterial peritonitis Anemia Alcoholic cirrhosis of liver with ascites Hepatorenal syndrome BPH loc w urin obs/LUTS C. difficile diarrhea Chronic hyponatremia varies with volume status Pleural effusion associated with hepatic disorder Pneumonia Fracture of fourth metatarsal bone of left foot Fracture of third metatarsal bone of left foot Fracture of second metatarsal bone of left foot Non-pressure chronic ulcer of other part of left foot limited to breakdown of skin Charcot's joint of left foot Atrial fibrillation and flutter Ataxia Hx of esophageal varices Charcot's arthropathy left foot Neuropathy PVD (peripheral vascular disease) End-stage liver disease not a candidate for transplant or tips at last evaluation Erectile dysfunction Peyronie disease Surgical History Status post surgery (07/05/20) peritoneal catheter for ascites History of tonsillectomy H/O colonoscopy H/O esophagogastroduodenoscopy History of abdominal paracentesis Hx of umbilical hernia repair Hx of vasectomy Family History Grandfather CAD (coronary artery disease) Grandmother CAD (coronary artery disease) Cancer Father Cancer Denies family history of Anesthesia complication Bleeding disorder Social History Smoking and tobacco/nicotine status: former use of tobacco/nicotine Substance/Drug Use: never Housing: Snf Marital status: Current occupational status: disabled Do you think of yourself as: Straight/Heterosexual Current gender identity: Male Dietary Habits: Current diet type/program: regular Caffeine: Yes Vitals/I&O/Wt Last Vital Signs Temp 97.8 F 03/18/25 11:49 Pulse 88 03/18/25 11:49 Resp 16 03/18/25 11:49 BP 118/70 03/18/25 11:49 Pulse Ox 95 03/18/25 11:49 O2 Del Method Room Air 03/18/25 11:49 03/17/25 03/18/25 03/18/25 22:59 06:59 14:59 Intake Total 360 / 360 240 / 600 480 / 480 Output Total 450 / 450 800 / 1250 950 / 950 Balance -90 / -90 -560 / -650 -470 / -470 Weight last 48 hrs Weight 343 lb 14.4 oz Weight 320 lb Physical Exam Const: OTHER: GENERAL: Patient is alert, awake and oriented x3. HEART: Regular S1 and S2. No murmur, rub or gallop. LUNGS: Clear to auscultate bilaterally. CENTRAL NERVOUS SYSTEM: Grossly nonfocal. EXTREMITIES: Lower extremities with 1+ edema bilaterally. Data 03/18/25 02:51 03/18/25 02:51 A&P Assessment and plan (1) Chest pain: (2) Severe sepsis without septic shock: (3) Alcoholic cirrhosis of liver: (4) CHF exacerbation: Plan Patient chest pain is of atypical character and nature, it is worse on deep breath and in between breath and holding breath alleviate the pain. According to him he had negative angiogram in the past. There is no significant EKG changes arrhythmia or significant increase in troponin. At this point will treat him with pain management pain appeared to be more pleuritic in nature we can use morphine 2 mg as needed every 4 hours since cannot use NSAIDs due to liver problem and varices. Echocardiogram will be obtained to rule out pericardial effusion. Continue rest of management as per medicine Will follow-up on the patient PDMP PDMP Reviewed: Not Reviewed Consult Attestations Medical Necessity Statement: As per medicine Coding Level of Care Code Acute Code for Chg Fwd Diagnoses Chest pain on breathing R07.1 Chest pain type: chest pain on breathing Severe sepsis without septic shock A41.9; R65.20 Alcoholic cirrhosis of liver K70.30 CHF exacerbation I50.9
--- NOTE | 2025-03-18 13:12 | CTR_ITS ---
PROCEDURE INFORMATION: Exam: CT Neck With Contrast Exam date and time: 03/18/2025 3:33 PM Age: 59 years old Clinical indication: Neck pain; Additional info: Neck pain, don't give extra contrast bolus, use residual from pe study TECHNIQUE: Imaging protocol: Computed tomography of the neck with contrast. Radiation optimization: All CT scans at this facility use at least one of these dose optimization techniques: automated exposure control; mA and/or kV adjustment per patient size (includes targeted exams where dose is matched to clinical indication); or iterative reconstruction. Contrast material: OMNIPAQUE 350; Contrast volume: 40 ml; Contrast route: INTRAVENOUS (IV); COMPARISON: CT cervical spin wo con* [id number] 06/19/2018 4:32 PM RADIATION DOSE METRICS: Total DLP (mGy-cm): 397 FINDINGS: Salivary glands: Normal. Glands are normal in size. Teeth: Dental caries. Pharynx: Unremarkable. No significant tonsillar enlargement. Larynx: Unremarkable. Epiglottis is normal. Thyroid: Normal. No enlarged or calcified nodules. Trachea: Visualized trachea is unremarkable. Lungs: Unremarkable as visualized. Lymph nodes: No abscess, lymphadenopathy or mass. Vasculature: Abnormal medial course of the bilateral carotid arteries and jugular veins. Bones/joints: Bony fusion of the C3-C4 and C5 vertebral bodies with architectural distortion. Severe degenerative disc disease at C5-C6 and C6-C7 with associated endplate changes. Severe bilateral neural foraminal narrowing at C5-C6. Soft tissues: Unremarkable. No significant soft tissue swelling. CT/CT neck w con* [id number] IMPRESSION: 1. Bony fusion of the C3-C4 and C5 vertebral bodies with architectural distortion. Grade 1 anterolisthesis of C2 on C3. 2. Severe degenerative disc disease at C5-C6 and C6-C7 with associated endplate changes. 3. Abnormal medial course of the bilateral carotid arteries and jugular veins. 4. No abscess, lymphadenopathy or mass.
--- NOTE | 2025-03-18 13:12 | CTR_ITS ---
PROCEDURE INFORMATION: Exam: CTA Chest With Contrast Exam date and time: 03/18/2025 3:33 PM Age: 59 years old Clinical indication: Chest wall pain; Additional info: Pe protocol, R/O aortic dissection TECHNIQUE: Imaging protocol: Computed tomographic angiography of the chest with contrast. Exam focused on the arteries. 3D rendering (Not supervised by radiologist): MIP and/or 3D reconstructed images were created by the technologist. Radiation optimization: All CT scans at this facility use at least one of these dose optimization techniques: automated exposure control; mA and/or kV adjustment per patient size (includes targeted exams where dose is matched to clinical indication); or iterative reconstruction. Contrast material: OMNIPAQUE 350; Contrast volume: 85 ml; Contrast route: INTRAVENOUS (IV); COMPARISON: CT angio chest w abd pel w con 11/23/2020 1:55 AM RADIATION DOSE METRICS: Total DLP (mGy-cm): 532.5 FINDINGS: Limitations: Suboptimal image quality due to streak artifact from the upper extremities. Pulmonary arteries: Normal. No pulmonary emboli. Aorta: Suboptimal opacification of the aorta. No aortic aneurysm. No definite aortic dissection. Scattered atherosclerotic calcifications. Veins: Paraesophageal and upper abdominal varices. Lungs: Scattered mild atelectasis. Dependent atelectasis in bilateral lung bases. No consolidation. No masses. Pleural spaces: Trace bilateral pleural effusions. Heart: Small pericardial effusion. Mitral annular calcifications. Coronary arteries: Multivessel coronary artery calcifications. Lymph nodes: Unremarkable. No enlarged lymph nodes. Liver: Cirrhotic liver morphology. Bones/joints: Unremarkable. No acute fracture. Soft tissues: Unremarkable. CT/CT angio chest [id number] IMPRESSION: 1. Suboptimal opacification of the thoracic aorta limits assessment. No definite dissection. 2. No pulmonary embolism. 3. Trace bilateral pleural effusions with adjacent compressive atelectasis. 4. Small pericardial effusion.
--- NOTE | 2025-03-18 14:22 | ECG_ITS ---
[employer] Test Date: 2025-03-18 Pat Name: Yosvany Soto Department: Room: 105 Gender: Male Box [employer]: : 1965 Requested By: Edita Orellana Order Number: [id number] Reading MD: Measurements Intervals [place] Rate: 84 P: 0 SC: 0 QRS: 102 QRSD: 98 T: 39 QT: 360 QTc: 426 Interpretive Statements ATRIAL FIBRILLATION RIGHT AXIS DEVIATION [QRS AXIS > 100] INCOMPLETE RIGHT BUNDLE BRANCH BLOCK [90+ ms QRS DURATION, TERMINAL R IN V1/V2, 40+ ms S IN I/aVL/V4/V5/V6] Compared to ECG 03/18/2025 08:57:24 No significant changes [email or web address]
[2025-03-18 14:41] LABS: INR 1.14 (0.8-1.2); Prothrombin Time 15.40 SECONDS (12.1-14.9)
[2025-03-18] MEDS: morphine 4 mg/mL SDV 1 mL 2 MG IVP (15:23)
--- NOTE | 2025-03-18 15:27 | PC.NURSE ---
Patient off the floor to CT
[2025-03-18 15:33] LABS: Troponin 5 6HR 53.46 ng/L (0-15); Troponin 5 6HR Delta 6.46 ng/L (0-12)
[2025-03-18] MEDS: iohexol 350 mg/mL 500 mL Btl (per mL) IV (15:41)
[2025-03-18] MEDS: lactulose oral liq 20 gm/30 mL UDC 45 GM PO ×2 (16:55→20:20)
[2025-03-19] VITALS (7 sets, daily range): BP systolic 108–121; BP diastolic 64–77; PULSE 79–99; RESP 14–24; TEMP 36.6–36.8; O2SAT 96–99
[2025-03-19 04:19] LABS: Hematocrit 30.3 % (37-53); Hemoglobin 9.60 g/dL (11.27-16.99); Mean Corpuscular HGB Conc 31.7 g/dL (30-55); Mean Corpuscular Hemoglobin 31.5 pg (27-33); Mean Corpuscular Volume 99.3 fl (82-101); Nucleated Red Blood Cells % 0 %; Platelet Count 197 10^3/cmm (157-399); Red Blood Count 3.05 10^6/uL (3.85-5.65); White Blood Count 7.40 10^3/uL (3.29-11.43)
[2025-03-19 04:40] LABS: Anion Gap 14.5 (5-19); Blood Urea Nitrogen 26 mg/dL (8-23); Calcium 9.5 mg/dL (8.5-10.5); Carbon Dioxide 28 mmol/L (22-29); Chloride 90 mmol/L (98-107); Creatinine Clr Calc Pharmacy 103.4407; Glucose 124 mg/dL (65-115); Magnesium 2.2 mg/dL (1.7-2.3); Osmolality Calculated 272 mOsm/kg (285-295); Potassium 4.5 mmol/L (3.5-5.1); Sodium 128 mmol/L (136-145)
[2025-03-19] MEDS: lactulose oral liq 20 gm/30 mL UDC 45 GM PO ×3 (07:39→20:49)
[2025-03-19] MEDS: HYDROcodone-acetaminophen 5-325 mg Tablet 1 TAB PO ×2 (07:42→20:50)
--- NOTE | 2025-03-19 08:36 | PC.NURSE ---
This RN present with student during medication passes. Student performed appropriately using all rights and identifiers.
[2025-03-19 13:07] LABS: Uric Acid 10.1 mg/dL (3.4-7.0)
--- NOTE | 2025-03-19 14:09 | P.PN_ITS ---
Subjective 2 Subjective: seen today ct neck shows cervical disease ct chest r/o PE /aortic dissection on 2L NC from night time sodium worsening at 128 at this time today he says neck pain is chronic Vitals/I&O/Wt Last Vital Signs Temp 97.8 F 03/19/25 12:00 Pulse 83 03/19/25 14:00 Resp 24 H 03/19/25 12:00 BP 120/64 03/19/25 12:00 Pulse Ox 98 03/19/25 12:00 O2 Del Method Nasal Cannula 03/19/25 12:00 O2 Flow Rate 2 03/19/25 09:35 03/18/25 03/19/25 03/19/25 22:59 06:59 14:59 Intake Total 240 / 720 240 / 960 240 / 240 Output Total 1125 / 2075 600 / 2675 850 / 850 Balance -885 / -1355 -360 / -1715 -610 / -610 Weight last 48 hrs Weight 155.979 kg Weight 155.99 kg Physical Exam 2 Narrative: General: Alert oriented x3, patient seen laying in bed appearing comfortable at this time. Saturating 99% on room air. Not requiring any oxygen at this time. HEENT: Normocephalic, atraumatic, EOMI, neck pain reproducible to palpation, no neck stiffness Cardio: Regular rate rhythm, normal S1-S2, Respiratory: Clear to auscultation bilaterally no wheezes no rhonchi. GI: Abdomen soft, nontender, mildly distended, bowel sounds + Behavior: Appropriate and cooperative Extremities: 2+ edema bilateral lower extremities. Data 03/19/25 04:01 03/19/25 04:01 A&P Assessment and plan (1) CHF (congestive heart failure): (2) CHF exacerbation: (3) Chronic atrial fibrillation, unspecified: (4) Obesity: (5) Cirrhosis: (6) Alcoholic cirrhosis of liver: (7) Chronic kidney disease: (8) Chest pain: Plan #Chest pain reproducible to palpation and movement. 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 #History of anemia requiring blood transfusion ? Patient complains of chest pain. Initial troponin 38, 2-hour troponin 38.18. Await 6-hour troponin. ? EKG did not show any acute ischemic changes. ? Aspirin 324 given x 1 ? Continue furosemide 40 IV twice daily ? Continue home amiodarone, baclofen, diltiazem 30 every 6 ? Continue Keppra 1000 twice daily, levothyroxine 50 ? Continue midodrine 5 3 times daily ? Continue spironolactone, potassium. ? Place Weir catheter for accurate output ? Check echocardiogram to rule out wall motion abnormalities. ? Patient is not on anticoagulation due to history of anemia. ? Creatinine 1.2 today. ? Check CBC CMP in a.m. ? Check PT/INR ? Continue home lactulose ? Patient's chest pain is most likely musculoskeletal in origin. It is reproducible on palpation at the neck region and chest region. He states every time he moves or breathes it hurts. ? I will order hydrocodone 5 every 8 hours for chest pain. Full code DVT prophylaxis: SCDs 03/18/2025 cr at pt's baseline 1.2-1.4 continue lasix 40 bid echo pending neck pain present but relieved with lidocaine patch and morphine i still dont believe this is cardiac in origin ekg non ischemic will check trops again echo pending check ct chest and neck 03/19/2025 pt appears more fluid overloaded today will increase diuretic dosing hyponatremia most likely 2/2 to hypervolemia patient on o2 2L NC neck pain he states is chronic but better today denies chest pain today nephrology consulted appreciate cardiology recommendations plan to dc back to [place] in next 24-48 hours PDMP PDMP Reviewed: Not Reviewed Attestations 2 Medical Necessity Statement*: hyponatremic today, fluid overload, requires more diuresis Diagnoses CHF (congestive heart failure) I50.9 CHF exacerbation I50.9 Chronic atrial fibrillation, unspecified I48.20 Obesity E66.9 Cirrhosis K74.60 Alcoholic cirrhosis of liver K70.30 Chronic kidney disease N18.9 Chest pain on breathing R07.1 Chest pain type: chest pain on breathing
--- NOTE | 2025-03-19 15:05 | P.PN_ITS ---
Subjective 2 Subjective: Patient states chest pain is better evaluation of the cervical and the thoracic disks with CT scan has been ordered by the medicine Vitals/I&O/Wt Last Vital Signs Temp 97.8 F 03/19/25 12:00 Pulse 83 03/19/25 14:00 Resp 24 H 03/19/25 12:00 BP 120/64 03/19/25 12:00 Pulse Ox 98 03/19/25 12:00 O2 Del Method Nasal Cannula 03/19/25 12:00 O2 Flow Rate 2 03/19/25 09:35 03/19/25 03/19/25 03/19/25 06:59 14:59 22:59 Intake Total 240 / 960 480 / 480 Output Total 600 / 2675 850 / 850 Balance -360 / -1715 -370 / -370 Weight last 48 hrs Weight 343 lb 14 oz Weight 343 lb 14.4 oz Physical Exam 2 Const: OTHER: GENERAL: Patient is alert, awake and oriented x3. HEART: Regular S1 and S2. No murmur, rub or gallop. LUNGS: Clear to auscultate bilaterally. CENTRAL NERVOUS SYSTEM: Grossly nonfocal. EXTREMITIES: Lower extremities with 1+ edema bilaterally. Data 03/19/25 04:01 03/19/25 04:01 A&P Assessment and plan (1) Chest pain: (2) Severe sepsis without septic shock: (3) Alcoholic cirrhosis of liver: (4) CHF exacerbation: Plan Patient chest pain is of atypical character and nature, it is worse on deep breath and in between breath and holding breath alleviate the pain. According to him he had negative angiogram in the past. There is no significant EKG changes arrhythmia or significant increase in troponin. At this point will treat him with pain management pain appeared to be more pleuritic in nature we can use morphine 2 mg as needed every 4 hours since cannot use NSAIDs due to liver problem and varices. Echocardiogram will be obtained to rule out pericardial effusion. Continue rest of management as per medicine Will follow-up on the patient On today's visit dated 03/19/2025, patient chest pain is better, it is atypical continue pain management with morphine. PDMP PDMP Reviewed: Not Reviewed Attestations 2 Medical Necessity Statement*: As per medicine Coding Level of Care Code Acute Code for [facility] Fwd Diagnoses Chest pain on breathing R07.1 Chest pain type: chest pain on breathing Severe sepsis without septic shock A41.9; R65.20 Alcoholic cirrhosis of liver K70.30 CHF exacerbation I50.9
[2025-03-19] MEDS: bumetanide 0.25 mg/mL SDV 10 mL 2 MG IVP (16:04)
[2025-03-19 16:05] LABS: Urine Random Sodium < 20 mmol/L
--- NOTE | 2025-03-19 17:22 | PM.CONSULT ---
Providers/Reason For Consult Consulting Physician/Specialty*: kommana/Nephrology Reason for Consult*: Hyponatremia Attending Physician: Edita Orellana MD Primary Care Provider: Clarissa Ramirez NP History of Present Illness History of Present Illness Yosvany Soto is a 59 year old male Patient is a 59-year-old male with past medical history of congestive cardiac failure, liver cirrhosis and end-stage liver disease, prior history of hepatorenal syndrome, chronic kidney disease stage III, peripheral vascular disease chronic anemia was admitted to the hospital on 03/17/2025 from a residential facility due to chest pain. Patient was taking midodrine, spironolactone Bumex at home. On presentation lab data significant for sodium of 132, creatinine of 1.2. Patient was started on IV diuretics and was continued on Aldactone since presentation. Over the course of the last 2 days sodium levels have dropped down to 128, creatinine has peaked at 1.4 then that has improved to 1.2 currently. Blood pressures in the 1 teens range currently. Review of Systems Narrative: Other review of systems negative Medications/Allergies Home Medications ?Medication ?Instructions ?Recorded ?Confirmed ?Last Taken ?Type vitamin B complex (Vitamins B 1 tab PO DAILY@01/04/20 03/17/25 03/17/25 07:00 History Complex tablet) fluticasone propionate 50 2 spray intranasal DAILY@09/08/20 03/17/25 03/17/25 07:00 History mcg/actuation nasal spray,suspension (Flonase Allergy Relief) albuterol sulfate 90 mcg/actuation 1 puff inhalation Q4H PRN 12/11/20 03/17/25 04/03/23 History aerosol inhaler shortness of breath/wheezing diltiazem HCl 120 mg 120 mg PO DAILY@04/24/21 03/17/25 03/17/25 07:00 History capsule,extended release 24 hr (Cardizem CD) cetirizine 10 mg tablet (Zyrtec) 10 mg PO DAILY@05/24/21 03/17/25 03/17/25 07:00 History levothyroxine 50 mcg tablet 50 mcg PO DAILY@08/15/21 03/17/25 03/17/25 06:00 History midodrine 5 mg tablet 5 mg PO TID 09/01/21 03/17/2525 History potassium chloride 20 mEq 20 meq PO BID@07,19 09/01/21 03/17/25 03/17/25 07:00 History tablet,extended release gabapentin 100 mg capsule 100 mg PO TID 10/20/21 03/17/25 03/17/25 07:00 History levetiracetam 500 mg tablet 1,000 mg PO BID 12/24/21 03/17/25 03/17/25 History alfuzosin 10 mg tablet,extended 10 mg PO DAILY@11/04/22 03/17/25 03/17/25 07:00 History release 24 hr spironolactone 50 mg tablet 100 mg PO DAILY@11/04/22 03/17/25 03/17/25 07:00 History acetaminophen 325 mg tablet 325 - 650 mg PO Q4H PRN Pain 04/19/23 03/17/25 Unknown History (Tylenol) CAM BOOT #1 ea 05/08/23 03/17/25 Unknown Rx Wheel chair with elevated foot #1 ea 06/19/23 03/17/25 Unknown Rx rests and seat cushion ascorbic acid (vitamin C) 1,000 mg 1,000 mg PO Q12H 30 days #60 tabs 11/27/23 03/17/25 03/16/25 12:00 Rx tablet,extended release cholecalciferol (vitamin D3) 25 25 mcg PO DAILY 30 days #30 caps 11/27/23 03/17/25 03/17/25 07:00 Rx mcg (1,000 unit) capsule [place] Boot for the Right Foot #1 ea 03/11/24 03/17/25 Unknown Rx aluminum-mag hydroxide-simethicone 30 ml PO QID PRN Constipation 10/05/24 03/17/25 Unknown History 400 mg-400 mg-40 mg/5 mL oral susp (Mylanta Maximum Strength) bisacodyl 5 mg tablet,delayed 5 mg PO DAILY 10/05/24 03/17/25 03/17/25 History release bumetanide 1 mg tablet 2 mg PO BID 10/05/24 03/17/25 03/17/25 History docusate sodium 100 mg capsule 100 mg PO DAILY 10/05/24 03/17/25 03/17/25 07:00 History phenylephrine 0.25 %-mineral oil 1 applic ND Q6H 10/05/24 03/17/25 Unknown History 14 %-petrolatm 74.9 % rectal ointment (Preparation H) polyethylene glycol 3350 17 17 g PO DAILY 10/05/24 03/17/25 03/17/25 History gram/dose oral powder (Miralax) naloxone 4 mg/actuation nasal 4 mg intranasal Q2M PRN Allergic 02/08/25 03/17/25 Unknown History spray (Narcan) Symptoms lactulose 10 gram/15 mL oral 45 g PO QID hepatic encephalopathy 03/05/25 03/17/25 Unknown History solution Saccharomyces boulardii 10 billion 10,000 mmu cells PO DAILY 03/17/25 03/17/25 03/17/25 07:00 History cell capsule amiodarone 200 mg tablet 200 mg PO DAILY 03/17/25 03/17/25 03/17/25 07:00 History ammonium lactate 12 % lotion 1 applic topical BID 03/17/25 03/17/25 03/16/25 History baclofen 10 mg tablet 10 mg PO BID 03/17/25 03/17/25 03/17/25 History calcium carbonate 1,000 mg PO DAILY 03/17/25 03/17/25 03/17/25 History carboxymethylcellulose sodium 0.5 1 drp ophthalmic (eye) DAILY dry 03/17/25 03/17/25 Unknown History % eye drops (Refresh Tears) eyes dextran 70-hypromellose eye drops 1 drp ophthalmic (eye) QID PRN dry 03/17/25 03/17/25 Unknown History in a dropperette (Artificial Tears eyes (PF) drops in a dropperette) magnesium hydroxide 400 mg/5 mL 30 ml PO DAILY PRN constipation 03/17/25 03/17/25 Unknown History oral suspension (Milk of Magnesia) ondansetron HCl 8 mg tablet 8 mg PO Q8H 03/17/25 03/17/25 Unknown History sodium phosphates 19 gram-7 118 ml ND DAILY PRN Constipation 03/17/25 03/17/25 Unknown History gram/118 mL enema (Fleet Enema) thiamine mononitrate (vit B1) 100 100 mg PO DAILY 03/17/25 03/17/25 03/17/25 07:00 History mg tablet tramadol 50 mg tablet 100 mg PO TID PRN pain 03/17/25 03/17/25 03/17/25 History Allergies Allergy/AdvReac Type Severity Reaction Status Date / Time Penicillins Allergy Severe ALGY-Difficulty Verified 10/15/24 07:22 Breathing Sulfa (Sulfonamide Allergy Severe ALGY-Swell Verified 10/15/24 07:22 Antibiotics) Lip/Tongue/Throat Current Medications Generic Name Dose Route Start Last Admin Trade Name Freq PRN Reason Stop Dose Admin Hydrocodone Bitart/Acetaminophen 1 tab 03/17/25 17:49 03/19/25 07:42 Hydrocodone-Acetaminophen 5-325 Mg Tablet PO 1 tab Q8H PRN Administration MODERATE PAIN Amiodarone HCl 200 mg 03/18/25 09:00 03/19/25 07:43 Amiodarone 200 Mg Tablet PO 200 mg DAILY DHAVAL Administration Baclofen 10 mg 03/17/25 18:00 03/19/25 16:04 Baclofen 10 Mg Tablet PO 10 mg BID DHAVAL Administration Bumetanide 2 mg 03/19/25 15:30 03/19/25 16:04 Bumetanide 0.25 Mg/Ml Sdv 10 Ml IVP 2 mg Q12H DHAVAL Administration Gabapentin 100 mg 03/17/25 21:00 03/19/25 16:04 Gabapentin 100 Mg Capsule PO 100 mg TID DHAVAL Administration Lactulose 45 gm 03/17/25 17:23 03/19/25 16:04 Lactulose Oral Liq 20 Gm/30 Ml Udc PO 45 gm QID DHAVAL Administration Levetiracetam 1,000 mg 03/17/25 18:00 03/19/25 16:04 Levetiracetam 500 Mg Tablet PO 1,000 mg BID DHAVAL Administration Levothyroxine Sodium 50 mcg 03/18/25 06:00 03/19/25 05:59 Levothyroxine 50 Mcg Tablet PO 50 mcg DAILY@06 DHAVAL Administration Lidocaine 1 patch 03/18/25 21:00 03/19/25 07:48 Lidocaine 5% Patch TOPICAL Not Given [id number] DHAVAL Midodrine 5 mg 03/17/25 21:00 03/19/25 16:04 Midodrine 5 Mg Tablet PO 5 mg TID DHAVAL Administration Morphine Sulfate 2 mg 03/18/25 14:16 03/18/25 15:23 Morphine 4 Mg/Ml Sdv 1 Ml IVP 2 mg Q4H PRN Administration SEVERE PAIN Non-Formulary Medication 1 tab 03/18/25 07:00 03/19/25 05:57 Vitamin B Complex [Vitamins B Complex] PO Not Given DAILY@07 [facility] Pantoprazole Sodium 40 mg 03/18/25 09:00 03/19/25 07:[address] 40 Mg Tablet PO 40 mg DAILY DHAVAL Administration Spironolactone 50 mg 03/18/25 07:00 03/19/25 05:59 Spironolactone 25 Mg Tablet PO 50 mg DAILY@07 [facility] Administration Thiamine Mononitrate 100 mg 03/18/25 09:00 03/19/25 07:43 Thiamine 100 Mg Tablet PO 100 mg DAILY [facility] Administration Vitamin D 1,000 unit 03/18/25 09:00 03/19/25 07:41 Cholecalciferol (Vitamin D3) 1,000 Unit Tablet PO 1,000 unit DAILY DHAVAL Administration PFSH Acute PFSH: Medical History (Updated 03/18/25 @ 15:31 by Abdiel Strong MD) Chronic kidney disease Physical deconditioning Unspecified atrial flutter Alcoholic polyneuropathy Advanced chronic obstructive pulmonary disease Hepatic failure, unspecified without coma Chronic atrial fibrillation, unspecified Hypothyroidism Urinary tract infection BMI 50.0-59.9, adult Acute hepatic encephalopathy Hypertension COPD (chronic obstructive pulmonary disease) History of peritonitis Morbid obesity Contraindication to deep vein thrombosis (DVT) prophylaxis Splenomegaly Portal hypertension Esophageal varices PVD (peripheral vascular disease) Seizure Stereotyped movements Anasarca CHF (congestive heart failure) Echocardiogram done in 2019 shows an EF of 40 to 45% with hypokinetic septum, anteroseptum and inferior wall, biatrial enlargement Encephalopathy, hepatic Upper gastrointestinal hemorrhage due to gastritis EGD with pyloric ulcer in 05/2021 Occult blood in stools Peritoneal dialysis catheter in situ Removed in 05/2021 due to recurrent bacterial peritonitis Anemia Alcoholic cirrhosis of liver with ascites Hepatorenal syndrome BPH loc w urin obs/LUTS C. difficile diarrhea Chronic hyponatremia varies with volume status Pleural effusion associated with hepatic disorder Pneumonia Fracture of fourth metatarsal bone of left foot Fracture of third metatarsal bone of left foot Fracture of second metatarsal bone of left foot Non-pressure chronic ulcer of other part of left foot limited to breakdown of skin Charcot's joint of left foot Atrial fibrillation and flutter Ataxia Hx of esophageal varices Charcot's arthropathy left foot Neuropathy PVD (peripheral vascular disease) End-stage liver disease not a candidate for transplant or tips at last evaluation Erectile dysfunction Peyronie disease Surgical History Status post surgery (07/05/20) peritoneal catheter for ascites History of tonsillectomy H/O colonoscopy H/O esophagogastroduodenoscopy History of abdominal paracentesis Hx of umbilical hernia repair Hx of vasectomy Family History Grandfather CAD (coronary artery disease) Grandmother CAD (coronary artery disease) Cancer Father Cancer Denies family history of Anesthesia complication Bleeding disorder Social History Smoking and tobacco/nicotine status: former use of tobacco/nicotine Substance/Drug Use: never Housing: Care Home Marital status: Current occupational status: disabled Do you think of yourself as: Straight/Heterosexual Current gender identity: Male Vitals/I&O/Wt Last Vital Signs Temp 97.8 F 03/19/25 12:00 Pulse 83 03/19/25 14:00 Resp 24 H 03/19/25 12:00 BP 120/64 03/19/25 12:00 Pulse Ox 98 03/19/25 12:00 O2 Del Method Nasal Cannula 03/19/25 12:00 O2 Flow Rate 2 03/19/25 09:35 03/19/25 03/19/25 03/19/25 06:59 14:59 22:59 Intake Total 240 / 960 480 / 480 Output Total 600 / 2675 850 / 850 Balance -360 / -1715 -370 / -370 Weight last 48 hrs Weight 155.979 kg Weight 155.99 kg Physical Exam Narrative: Patient is an obese male with no acute distress PERRLA S1-S2 regular rate and rhythm per report Lungs with decreased breath sounds bilaterally Abdomen soft distended Has pedal edema Data 03/19/25 04:01 03/19/25 04:01 A&P Assessment and plan (1) Chronic kidney disease: (2) Hyponatremia: Plan 1. Acute on chronic hyponatremia: Sodium levels at baseline are in the low 130s range. Sodium on presentation was 132 that has worsened to 128 today. Hyponatremia from underlying liver disease, worsened now with possible intravascular volume depletion in setting of total body volume overload.. Noted urine sodium less than 20 and urine osmolality pending. - Will place on IV albumin, fluid restriction to 1500 mL/day - Also will resume IV Bumex today and continue Aldactone. 2. End-stage liver disease, with prior history of hepatorenal syndrome 3. SAMI, on CKD, creatinine is at baseline currently 4. Chest pain, noncardiac and pleuritic in nature per cards Patient evaluated using audiovisual cart. Time spent 40 minutes. PDMP PDMP Reviewed: Not Reviewed Consult Attestations Medical Necessity Statement: Per medicine team Coding Level of Care Code Acute Code for g Fwd Diagnoses Chronic kidney disease N18.9 Hyponatremia E87.1
[2025-03-20] VITALS (12 sets, daily range): BP systolic 101–128; BP diastolic 58–69; PULSE 64–93; RESP 12–25; TEMP 36.3–37.2; O2SAT 95–98
[2025-03-20 03:20] LABS: Hematocrit 27.9 % (37-53); Hemoglobin 8.90 g/dL (11.27-16.99); Mean Corpuscular HGB Conc 31.9 g/dL (30-55); Mean Corpuscular Hemoglobin 31.4 pg (27-33); Mean Corpuscular Volume 98.6 fl (82-101); Nucleated Red Blood Cells % 0 %; Platelet Count 224 10^3/cmm (157-399); Red Blood Count 2.83 10^6/uL (3.85-5.65); White Blood Count 7.34 10^3/uL (3.29-11.43)
[2025-03-20 03:37] LABS: Anion Gap 14.0 (5-19); Blood Urea Nitrogen 25 mg/dL (8-23); Calcium 9.3 mg/dL (8.5-10.5); Carbon Dioxide 30 mmol/L (22-29); Chloride 91 mmol/L (98-107); Creatinine Clr Calc Pharmacy 103.4367; Glucose 111 mg/dL (65-115); Magnesium 2.1 mg/dL (1.7-2.3); Osmolality Calculated 277 mOsm/kg (285-295); Potassium 4.0 mmol/L (3.5-5.1); Sodium 131 mmol/L (136-145)
[2025-03-20] MEDS: bumetanide 0.25 mg/mL SDV 10 mL 2 MG IVP ×3 (04:54→23:11)
[2025-03-20] MEDS: lactulose oral liq 20 gm/30 mL UDC 45 GM PO ×3 (08:09→20:37)
[2025-03-20] MEDS: morphine 4 mg/mL SDV 1 mL 2 MG IVP ×3 (08:18→20:37)
--- NOTE | 2025-03-20 10:13 | P.PN_ITS ---
Subjective 2 Subjective: seen today requiring 2L NC normally not on O2 at home denies neck pain, denies chest pain today Vitals/I&O/Wt Last Vital Signs Temp 97.4 F L 03/20/25 08:00 Pulse 71 03/20/25 09:57 Resp 16 03/20/25 09:57 BP 126/58 03/20/25 08:00 Pulse Ox 97 03/20/25 09:57 O2 Del Method Nasal Cannula 03/20/25 09:57 O2 Flow Rate 3 03/20/25 09:57 03/19/25 03/20/25 03/20/25 22:59 06:59 14:59 Intake Total 960 / 1440 300 / 1740 240 / 240 Output Total 475 / 1325 1650 / 2975 800 / 800 Balance 485 / 115 -1350 / -1235 -560 / -560 Weight last 48 hrs Weight 155.582 kg Weight 155.979 kg Physical Exam 2 Narrative: General: Alert oriented x3, patient seen laying in bed appearing comfortable at this time. on 2L NC HEENT: Normocephalic, atraumatic, EOMI, Cardio: Regular rate rhythm, normal S1-S2, Respiratory: Clear to auscultation bilaterally no wheezes no rhonchi. GI: Abdomen soft, nontender, obese rounded abdomen, bowel sounds + Extremities: 2+ edema bilateral lower extremities. Data 03/20/25 02:27 03/20/25 02:27 A&P Assessment and plan (1) CHF (congestive heart failure): (2) CHF exacerbation: (3) Chronic atrial fibrillation, unspecified: (4) Obesity: (5) Cirrhosis: (6) Alcoholic cirrhosis of liver: (7) Chronic kidney disease: (8) Chest pain: Plan #Chest pain reproducible to palpation and movement. - RESOLVED #Acute on chronic heart failure with preserved ejection fraction #End-stage liver cirrhosis not candidate for liver transplant #History of COPD #Atrial fibrillation, rate controlled not on anticoagulation #Chronic hyponatremia #Coronary disease #Esophageal varices #history of trimalleolar ankle fracture 2022. #History of anemia requiring blood transfusion ? Patient complains of chest pain. Initial troponin 38, 2-hour troponin 38.18. Await 6-hour troponin. ? EKG did not show any acute ischemic changes. ? Aspirin 324 given x 1 ? Continue furosemide 40 IV twice daily ? Continue home amiodarone, baclofen, diltiazem 30 every 6 ? Continue Keppra 1000 twice daily, levothyroxine 50 ? Continue midodrine 5 3 times daily ? Continue spironolactone, potassium. ? Place Weir catheter for accurate output ? Check echocardiogram to rule out wall motion abnormalities. ? Patient is not on anticoagulation due to history of anemia. ? Creatinine 1.2 today. ? Check CBC CMP in a.m. ? Check PT/INR ? Continue home lactulose ? Patient's chest pain is most likely musculoskeletal in origin. It is reproducible on palpation at the neck region and chest region. He states every time he moves or breathes it hurts. ? I will order hydrocodone 5 every 8 hours for chest pain. Full code DVT prophylaxis: SCDs 03/18/2025 cr at pt's baseline 1.2-1.4 continue lasix 40 bid echo pending neck pain present but relieved with lidocaine patch and morphine i still dont believe this is cardiac in origin ekg non ischemic will check trops again echo pending check ct chest and neck 03/19/2025 pt appears more fluid overloaded today will increase diuretic dosing hyponatremia most likely 2/2 to hypervolemia patient on o2 2L NC neck pain he states is chronic but better today denies chest pain today nephrology consulted appreciate cardiology recommendations plan to dc back to [place] in next 24-48 hours 03/20/2025 denies cp, neck pain today on 2L NC continue bumex 2 mg q12h check chest xray appreicate nephro recommendations pt most likely has underlying MELANIE will need sleep study outpatient pt is 4L neg since admission will check overnight pulse ox today he can probably go back to [place] friday. PDMP PDMP Reviewed: Not Reviewed Attestations 2 Medical Necessity Statement*: supplemental o2 requirement today, possible dc in next 24 hours Diagnoses CHF (congestive heart failure) I50.9 CHF exacerbation I50.9 Chronic atrial fibrillation, unspecified I48.20 Obesity E66.9 Cirrhosis K74.60 Alcoholic cirrhosis of liver K70.30 Chronic kidney disease N18.9 Chest pain on breathing R07.1 Chest pain type: chest pain on breathing
--- NOTE | 2025-03-20 11:03 | P.PN_ITS ---
Subjective 2 Subjective: no new c/o 3L UOP Medications: Reviewed: Yes Vitals/I&O/Wt Last Vital Signs Temp 97.4 F L 03/20/25 08:00 Pulse 71 03/20/25 09:57 Resp 16 03/20/25 09:57 BP 126/58 03/20/25 08:00 Pulse Ox 97 03/20/25 09:57 O2 Del Method Nasal Cannula 03/20/25 09:57 O2 Flow Rate 3 03/20/25 09:57 03/19/25 03/20/25 03/20/25 22:59 06:59 14:59 Intake Total 960 / 1440 300 / 1740 240 / 240 Output Total 475 / 1325 1650 / 2975 800 / 800 Balance 485 / 115 -1350 / -1235 -560 / -560 Weight last 48 hrs Weight 155.582 kg Weight 155.979 kg Physical Exam 2 Narrative: Patient is an obese male with no acute distress PERRLA S1-S2 regular rate and rhythm per report Lungs with decreased breath sounds bilaterally Abdomen soft distended Has pedal edema Data 03/20/25 02:27 03/20/25 02:27 A&P Assessment and plan (1) Chronic kidney disease: (2) Hyponatremia: Plan 1. Acute on chronic hyponatremia: Sodium levels at baseline are in the low 130s range. Sodium on presentation was 132 that has worsened to 128 today. Hyponatremia from underlying liver disease, worsened now with possible intravascular volume depletion in setting of total body volume overload.. Noted urine sodium less than 20 and urine osmolality pending. - Will place on IV albumin, fluid restriction to 1500 mL/day - continue IV Bumex and continue Aldactone. -Na improved to 131 today 2. End-stage liver disease, with prior history of hepatorenal syndrome 3. SAMI, on CKD, creatinine is at baseline currently 4. Chest pain, noncardiac and pleuritic in nature per cards Patient evaluated using audiovisual cart. Time spent 40 minutes. PDMP PDMP Reviewed: Not Reviewed Attestations 2 Medical Necessity Statement*: per franciscoco Coding Level of Care Code Acute Code for Chg Fwd Diagnoses Chronic kidney disease N18.9 Hyponatremia E87.1
--- NOTE | 2025-03-20 14:29 | P.PN_ITS ---
Subjective 2 Subjective: Denies any chest pain thinks it is getting better, chest pain corrected is atypical Medications: Reviewed: Yes Vitals/I&O/Wt Last Vital Signs Temp 97.7 F 03/20/25 12:00 Pulse 93 03/20/25 14:00 Resp 14 03/20/25 12:53 BP 122/65 03/20/25 12:00 Pulse Ox 97 03/20/25 12:00 O2 Del Method Room Air 03/20/25 12:00 O2 Flow Rate 3 03/20/25 09:57 03/19/25 03/20/25 03/20/25 22:59 06:59 14:59 Intake Total 960 / 1440 300 / 1740 530 / 530 Output Total 475 / 1325 1650 / 2975 2100 / 2100 Balance 485 / 115 -1350 / -1235 -1570 / -1570 Weight last 48 hrs Weight 343 lb Weight 343 lb 14 oz Physical Exam 2 Const: OTHER: GENERAL: Patient is alert, awake and oriented x3. HEART: Regular S1 and S2. No murmur, rub or gallop. LUNGS: Clear to auscultate bilaterally. CENTRAL NERVOUS SYSTEM: Grossly nonfocal. EXTREMITIES: Lower extremities with trace edema bilaterally. Data 03/20/25 02:27 03/20/25 02:27 A&P Assessment and plan (1) Chest pain: (2) Severe sepsis without septic shock: (3) Alcoholic cirrhosis of liver: (4) CHF exacerbation: Plan Patient chest pain is of atypical character and nature, it is worse on deep breath and in between breath and holding breath alleviate the pain. According to him he had negative angiogram in the past. There is no significant EKG changes arrhythmia or significant increase in troponin. At this point will treat him with pain management pain appeared to be more pleuritic in nature we can use morphine 2 mg as needed every 4 hours since cannot use NSAIDs due to liver problem and varices. Echocardiogram will be obtained to rule out pericardial effusion. Continue rest of management as per medicine Will follow-up on the patient On today's visit dated 03/19/2025, patient chest pain is better, it is atypical continue pain management with morphine. On today's visit dated 03/20/2025 patient continues to do fine from cardiovascular perspective PDMP PDMP Reviewed: Not Reviewed Attestations 2 Medical Necessity Statement*: As per medicine Coding Level of Care Code Acute Code for Chg Fwd Diagnoses Chest pain on breathing R07.1 Chest pain type: chest pain on breathing Severe sepsis without septic shock A41.9; R65.20 Alcoholic cirrhosis of liver K70.30 CHF exacerbation I50.9
--- NOTE | 2025-03-20 22:19 | PC.RESP ---
overnight pulse ox started on patient at 2210. patient on baseline room air currently, will continue to monitor.
[2025-03-21 03:26] VITALS: BP 109/65; PULSE 79; RESP 19; TEMP 36.9; O2SAT 94
[2025-03-21 04:01] LABS: Hematocrit 28.5 % (37-53); Hemoglobin 9.20 g/dL (11.27-16.99); Mean Corpuscular HGB Conc 32.3 g/dL (30-55); Mean Corpuscular Hemoglobin 31.7 pg (27-33); Mean Corpuscular Volume 98.3 fl (82-101); Nucleated Red Blood Cells % 0 %; Platelet Count 216 10^3/cmm (157-399); Red Blood Count 2.90 10^6/uL (3.85-5.65); White Blood Count 6.86 10^3/uL (3.29-11.43)
[2025-03-21 04:14] LABS: Alanine Aminotransferase 21 U/L (0-41); Albumin Level 3.0 g/dL (3.5-5.2); Alkaline Phosphatase 91 U/L (40-130); Anion Gap 17.5 (5-19); Aspartate Amino Transferase 24 U/L (0-40); Blood Urea Nitrogen 24 mg/dL (8-23); Calcium 9.1 mg/dL (8.5-10.5); Carbon Dioxide 29 mmol/L (22-29); Chloride 94 mmol/L (98-107); Creatinine Clr Calc Pharmacy 102.9704; Globulin 3.2 g/dL (1.3-4.6); Glucose 95 mg/dL (65-115); Magnesium 1.8 mg/dL (1.7-2.3); Osmolality Calculated 288 mOsm/kg (285-295); Potassium 3.5 mmol/L (3.5-5.1); Sodium 137 mmol/L (136-145); Total Protein 6.2 g/dL (6.6-8.7)
--- NOTE | 2025-03-21 04:33 | PC.RESP ---
patient O2 sat decreased to 78% RT placed patient on 3lpm nc at this time.
[2025-03-21 07:42] VITALS: PULSE 83; RESP 20; O2SAT 97
[2025-03-21 08:00] VITALS: BP 123/92; PULSE 87; RESP 26; TEMP 36.6; O2SAT 91
--- NOTE | 2025-03-21 09:31 | PC.SOCIAL ---
IMM Update pg 2 of IMM Updated and reviewed w/ patient. Copy provided and copy dated, initialed and placed in chart.
[2025-03-21] MEDS: lactulose oral liq 20 gm/30 mL UDC 45 GM PO (09:37)
--- NOTE | 2025-03-21 09:45 | P.PN_ITS ---
<Statement entered by Abdiel Strong MD - 03/22/25 21:24> Patient was evaluated and cared for in conjunction with an advanced practice practitioner. I personally examined the patient and reviewed the chart and all pertinent data including imaging, telemetry, and laboratory results. I discussed the patient in detail with the advanced practice practitioner. Please see their note for complete H&P testing result and agreed upon plan of care for the patient. Subjective 2 Subjective: He reports not feeling well this morning, has more pain in the upper back and left shoulder. Denies chest pain. Medications: Reviewed: Yes Vitals/I&O/Wt Last Vital Signs Temp 97.9 F 03/21/25 08:00 Pulse 87 03/21/25 08:00 Resp 26 H 03/21/25 08:00 BP 123/92 03/21/25 08:00 Pulse Ox 91 03/21/25 08:00 O2 Del Method Nasal Cannula 03/21/25 08:00 O2 Flow Rate 2 03/21/25 07:42 03/20/25 03/21/25 03/21/25 22:59 06:59 14:59 Intake Total 360 / 890 Output Total 600 / 4025 1325 / 4025 Balance -600 / -3135 -965 / -3135 Weight last 48 hrs Weight 341 lb 1.6 oz Weight 343 lb Physical Exam 2 Const: COMMON NORMALS: no acute distress and patient oriented x3 GENERAL APPEARANCE: cooperative and comfortable ORIENTATION/CONSCIOUSNESS: Yes awake, Yes oriented to person, Yes oriented to place and Yes oriented to time Chest: COMMONS NORMALS: normal inspection of the chest and normal palpation of entire chest wall CHEST: Yes Symmetrical chest wall rise Resp: COMMON NORMALS: normal respiratory effort, No retractions, No use of accessory muscles and clear to auscultation bilaterally EFFORT & INSPECTION: Yes symmetric chest movement AUSCULTATION: clear to auscultation bilaterally Cardio: COMMON NORMALS: regular rate, regular rhythm, S1 normal heart sound present, S2 normal heart sound present, No gallops present (Cardio), No clicks present (Cardio), No murmurs present (Cardio) and No rub (Cardio) RATE: r egular rate RHYTHM: regular rhythm HEART SOUNDS: S1 normal heart sound present and S2 normal heart sound present PERIPHERAL PULSES: radial pulses present Extremity: COMMON NORMALS: no pedal edema Neuro: COMMON NORMALS: patient oriented x3 and moves all extremities S ENSORIUM/ORIENTATION: Yes oriented to person, Yes oriented to place and Yes oriented to time Data 03/21/25 02:12 03/21/25 02:12 A&P Assessment and plan (1) Chest pain: (2) Alcoholic cirrhosis of liver: (3) CHF exacerbation: (4) Severe sepsis without septic shock: Plan He has joint pain worse with movement, no chest pain. Blood pressure well- controlled without hypotension. Continue amiodarone, spironolactone, Bumex, midodrine. PDMP PDMP Reviewed: Not Reviewed Attestations 2 Medical Necessity Statement*: Per hospitalist Coding Level of Care Code [facility] Diagn[facility] Chest pain on breathing R07.1 Chest pain type: chest pain on breathing Alcoholic cirrhosis of liver K70.30 CHF exacerbation I50.9 Severe sepsis without septic shock A41.9; R65.20
[2025-03-21] MEDS: bumetanide 0.25 mg/mL SDV 10 mL 2 MG IVP (10:07)
--- NOTE | 2025-03-21 10:08 | PC.CHAP ---
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 log buncher visit [] Patient/Family/Request visit [] Outpatient visit [] Follow-up visit [] Physician referral [] Code/Alert [x] Routine visit [] Staff referral [] Actively dying [] Patient sleeping [] Family support [] [] Out of room [] Palliative care [] [] Receiving care in room [] Pre-surgical visit [] Trauma [] Long length of stay [] ICU visit [] Other: Relational/Emotional Strength [] Patient feels connected with others/family/visitors/staff [] Distress [] Loneliness/isolation [] Abandonment Spirituality of Patient [x] Person of Jana [] Attends Holiness of their Jana [x] Believes in Prayer [] Reads Bible or Congregational materials [] There are Spiritual issues to be addressed [employer] Mechanic Interventions [x] Prayer [x] Active listening [] Non-anxious presence [] Spiritual/emotional support [] Crisis/trauma care [] Spiritual counseling [] Bereavement support [] Provided bereavement packet [x] Provided Bible/devotional materials [] Provided toy/stuffed animal, coloring book to patient or family member [] Provided Communion [] Anointing/[place] [] Salvation [x] Completed spiritual assessment [] Other: Impact on Illness or Injury [] Angry [] Fearful [] Anxious [] Often cries [] Exhaustion [] Unable to work [] Unable to attend rastafarian [] Unable to walk/stand [] Unable to read [] Unable to drive [] Unable to eat/drink [] Unable to sleep [] Unable to be with family [] Patient intubated [] Other: Summary Time spent with patient 5min
--- NOTE | 2025-03-21 11:45 | P.PN_ITS ---
Subjective 2 Subjective: no new c/o Medications: Reviewed: Yes Vitals/I&O/Wt Last Vital Signs Temp 97.9 F 03/21/25 08:00 Pulse 87 03/21/25 08:00 Resp 26 H 03/21/25 08:00 BP 123/92 03/21/25 08:00 Pulse Ox 91 03/21/25 08:00 O2 Del Method Nasal Cannula 03/21/25 08:00 O2 Flow Rate 2 03/21/25 07:42 03/20/25 03/21/25 03/21/25 22:59 06:59 14:59 Intake Total 360 / 890 240 / 240 Output Total 600 / 2700 1325 / 4025 Balance -600 / -2170 -965 / -3135 240 / 240 Weight last 48 hrs Weight 154.72 kg Weight 155.582 kg Physical Exam 2 Narrative: Patient is an obese male with no acute distress PERRLA S1-S2 regular rate and rhythm per report Lungs with decreased breath sounds bilaterally Abdomen soft distended Has pedal edema Data 03/21/25 02:12 03/21/25 02:12 A&P Assessment and plan (1) Chronic kidney disease: (2) Hyponatremia: Plan 1. Acute on chronic hyponatremia: Sodium levels at baseline are in the low 130s range. Sodium on presentation was 132 that has worsened to 128 today. Hyponatremia from underlying liver disease, worsened now with possible intravascular volume depletion in setting of total body volume overload.. Noted urine sodium less than 20 and urine osmolality pending. - Will place on IV albumin, fluid restriction to 1500 mL/day - on IV Bumex -can switch to PO bumex , and continue Aldactone. -Na improved to 137 today 2. End-stage liver disease, with prior history of hepatorenal syndrome 3. SAMI, on CKD, creatinine is at baseline currently 4. Chest pain, noncardiac and pleuritic in nature per cards Patient evaluated using audiovisual cart. Time spent 40 minutes. PDMP PDMP Reviewed: Not Reviewed Attestations 2 Medical Necessity Statement*: per juan Coding Level of Care Code Acute Code for Chg Fwd Diagnoses Chronic kidney disease N18.9 Hyponatremia E87.1
--- NOTE | 2025-03-21 12:30 | P.DS_ITS ---
Discharge Providers Date of Admission: 03/19/25 15:42 Date of Discharge: March 21, 2025 Attending Provider at Admission: Edita Orellana MD Attending Provider at Discharge: Max Goodson Primary Care Provider: Clarissa Ramirez NP Diagnoses at Discharge Discharge Diagnosis (1) Chronic kidney disease: (2) Hyponatremia: Reason for Visit Reason for Visit: chest pain Brief History: Yosvany Soto is a 59 year old male history of HFpEF, liver cirrhosis, end- stage liver disease, not candidate for liver transplantation, hepatorenal syndrome, seizures, morbid obesity, COPD, atrial fibrillation/flutter, CKD, PVD, smoking, hypoalbuminemia, chronic hyponatremia, CAD, Charcot's arthropathy, esophageal varices, history of fall, open trimalleolar right ankle fracture 02/12/23 for which he underwent debridement, stabilization with external fixator antibiotics during prior hospitalization discharged on 02/19/23 not on anticoagulation anymore due to recent anemia requiring transfusion who presents to the hospital from a residential facility for complaint of chest pain that began around 630 this morning when he first wake up. It was radiating into his back and into his neck and his shoulder blades. Patient does have a history of esophageal varices and chronic kidney disease. Patient appeared fluid overload ed in the ER therefore was given 80 of Lasix x 1. He denies nausea vomiting diarrhea constipation at this time. He has been complaining of chest pain that started this morning. He may have slept wrong he is not sure. He says his neck hurts and his chest hurts every time he breathes or tries to move. 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 He states he has pain in the left shoulder all the time but is now also having chest pain radiating to the neck. I palpated the neck area and pain was producible. Denies any diaphoresis sense of impending doom. He says he is hungry right now. Hospital Course Hospital Course He was admitted for further assessment on cardiac stepdown unit, received aspirin, with acute on chronic diastolic congestive heart failure started on treatment with IV diuretic with Bumex and albumin. Troponin series with mild flat elevation. Echocardiogram was obtained which showed ejection fraction of 60% no regional wall motion abnormality without significant valvular abnormalities no pericardial effusion. He was further assessed by cardiology as well and underwent CT angiogram chest as well which showed suboptimal vesication of thoracic aorta but without definitive dissection no PE incidentally noted trace bilateral pleural effusions, small pericardial effusion. Neck CT showed bony fusion of C3-4 and 5 vertebral bodies with architectural distortion and grade 1 anterolisthesis C2 on C3. Severe degenerative disc disease at C5-C6 and C6-C7 with associated endplate changes abnormal medial course of bilateral carotid arteries and jugular veins. No abscess lymphadenopathy or mass. His volume status gradually improved with diuresis. Based on the assessment during hospitalization in conjunction with cardiology team his chest pain was deemed likely noncardiac thought to be musculoskeletal and he received further treatment with acetaminophen and lidocaine patches and morphine. Pain overall is showing improvement although has not entirely resolved. He is bothered by some pain in his right shoulder as well. Physical Exam Const: COMMON NORMALS: patient oriented x3 and alert GENERAL APPEARANCE: cooperative ORIENTATION/CONSCIOUSNESS: Yes awake HENMT: COMMON NORMALS: oropharynx normal Neck/C-Spine: COMMON NORMALS: no JVD Resp: COMMON NORMALS: normal respiratory effort and clear to auscultation bilaterally AUSCULTATION: clear to auscultation bilaterally Cardio: COMMON NORMALS: no JVD, regular rhythm, S1 normal heart sound present, S2 normal heart sound present and No murmurs present (Cardio) RHYTHM: regular rhythm HEART SOUNDS: S1 normal heart sound present and S2 normal heart sound present GI: COMMON NORMALS: Normal to inspection, nondistended, normoactive bowel sounds present, Soft to palpation and non-tender PALPATION: Yes Soft to palpation Extremity: COMMON NORMALS: no joint enlargement and no pedal edema OTHER: Right shoulder without erythema or swelling. Neuro: COMMON NORMALS: patient oriented x3 and moves all extremities SENSORIUM/ORIENTATION: Yes alert Skin: COMMON NORMALS: no rashes or lesions noted GENERAL SKIN EXAM: no angel hes or lesions noted Discharge Data Studies Completed and Pending Completed Studies During Hospitalization Category Date Time Status CT angio chest [id number] Stat Cat Scan 03/18/25 13:[address] neck w con* [id number] Stat Cat Scan 03/18/25 13:12 Completed XR chest 1V portable [id number] Stat Exams 03/17/25 13:11 Completed CV. echo complete* [id number] Stat Ultrasound 03/18/25 10:13 Completed Pending at discharge Category Date Time Status Osmolality Urine Routine Lab 03/19/25 14:31 Received Radiology Impressions Chest X-Ray 03/17/25 13:11 IMPRESSION: Chest is stable compared to the previous examination 02/26/2025. Cardiomegaly with mild central venous congestion. No acute abnormality identified. Chest CTA 03/18/25 13:12 IMPRESSION: 1. Suboptimal opacification of the thoracic aorta limits assessment. No definite dissection. 2. No pulmonary embolism. 3. Trace bilateral pleural effusions with adjacent compressive atelectasis. 4. Small pericardial effusion. Neck CT 03/18/25 13:12 IMPRESSION: 1. Bony fusion of the C3-C4 and C5 vertebral bodies with architectural distortion. Grade 1 anterolisthesis of C2 on C3. 2. Severe degenerative disc disease at C5-C6 and C6-C7 with associated endplate changes. 3. Abnormal medial course of the bilateral carotid arteries and jugular veins. 4. No abscess, lymphadenopathy or mass. Laboratory Results WBC 6.86 10^3/uL (3.29-11.43) 03/21/25 02:12 RBC 2.90 10^6/uL (3.85-5.65) L 03/21/25 02:12 Hgb 9.20 g/dL (11.27-16.99) L 03/21/25 02:12 Hct 28.5 % (37-53) L 03/21/25 02:12 MCV 98.3 fl (82-101) 03/21/25 02:12 MCH 31.7 pg (27-33) 03/21/25 02:12 MCHC 32.3 g/dL (30-55) 03/21/25 02:12 RDW 17.3 % (12.1-15.1) H 03/21/25 02:12 Plt Count 216 10^3/cmm (157-399) 03/21/25 02:12 MPV 10.0 fL (7.4-10.4) 03/21/25 02:12 Neut % (Auto) 63.0 % 03/21/25 02:12 Lymph % (Auto) 18.7 % 03/21/25 02:12 [place] % (Auto) 12.5 % 03/21/25 02:12 Eos % (Auto) 4.5 % 03/21/25 02:12 Baso % (Auto) 1.0 % 03/21/25 02:12 Neut # (Auto) 4.32 10^3/uL (1.8-7.7) 03/21/25 02:12 Lymph # (Auto) 1.3 10^3/uL (0.8-4.8) 03/21/25 02:12 [place] # (Auto) 0.9 10^3/uL (0.2-0.9) 03/21/25 02:12 Eos # (Auto) 0.3 10^3/uL (0.0-0.8) 03/21/25 02:12 Baso # (Auto) 0.1 10^3/uL (0.0-0.1) 03/21/25 02:12 Nucleated RBC % (auto) 0 % 03/21/25 02:12 Nucleated RBCs # 0.0 /100WBC 03/21/25 02:12 PT 15.40 SECONDS (12.1-14.9) H 03/18/25 13:53 INR 1.14 (0.8-1.2) 03/18/25 13:53 D-Dimer 0.99 ug/mLFEU (0-0.59) H 03/18/25 13:53 Specimen Type Arterial 03/17/25 13:25 Sample Site Radial, right 03/17/25 13:25 ABG pH 7.47 (7.35-7.45) H 03/17/25 13:25 ABG pCO2 43.0 mmHg (35-45) 03/17/25 13:25 ABG pO2 84.2 mmHg (80.0-100.0) 03/17/25 13:25 ABG PO2/FiO2 Ratio 400 03/17/25 13:25 ABG HCO3 31.1 mmol/L (22-26) H 03/17/25 13:25 ABG O2 Saturation 95.5 03/17/25 13:25 ABG Base Excess 6.6 mmol/L (-2.0-2.0) H 03/17/25 13:25 Marcelo Test Pos 03/17/25 13:25 A-a O2 Gradient 1.6 mmHg (5-10) L 03/17/25 13:25 Hematocrit 36.4 % (42-52) L 03/17/25 13:25 Hgb O2 Saturation 93.8 % (95-100) L 03/17/25 13:25 Carboxyhemoglobin 1.1 %THgb (0.4-20.1) 03/17/25 13:25 Methemoglobin 0.6 % (0.4-1.5) 03/17/25 13:25 Total Hemoglobin 11.9 g/dL (14-18) L 03/17/25 13:25 Sodium 132.0 mmol/L (131-143) 03/17/25 13:25 Potassium 4.3 mmol/L (3.5-5.0) 03/17/25 13:25 Glucose 130.0 mg/dL (70-115) H 03/17/25 13:25 Ionized Calcium 1.2 mmol/L (1.1-1.4) 03/17/25 13:25 O2 Delivery Device Room air 03/17/25 13:25 FiO2 21.0 % 03/17/25 13:25 Supply Coordinator ID [place] 03/17/25 13:25 Sodium 137 mmol/L (136-145) 03/21/25 02:12 Potassium 3.5 mmol/L (3.5-5.1) 03/21/25 02:12 Chloride 94 mmol/L (98-107) L 03/21/25 02:12 Carbon Dioxide 29 mmol/L (22-29) 03/21/25 02:12 Anion Gap 17.5 (5-19) 03/21/25 02:12 BUN 24 mg/dL (8-23) H 03/21/25 02:12 Creatinine 1.2 mg/dL (0.7-1.2) 03/21/25 02:12 GFR Calculation 61.8 mL/min (90-130) L 03/21/25 02:12 Glucose 95 mg/dL (65-115) 03/21/25 02:12 Calculated Osmolality 288 mOsm/kg (285-295) 03/21/25 02:12 Lactic Acid 1.8 mmol/L (0.5-2.2) 03/17/25 17:16 Uric Acid 10.1 mg/dL (3.4-7.0) H 03/19/25 04:01 Calcium 9.1 mg/dL (8.5-10.5) 03/21/25 02:12 Magnesium 1.8 mg/dL (1.7-2.3) 03/21/25 02:12 Total Bilirubin 0.6 mg/dL (0.15-1.2) 03/21/25 02:12 AST 24 U/L (0-40) 03/21/25 02:12 ALT 21 U/L (0-41) 03/21/25 02:12 Alkaline Phosphatase 91 U/L (40-130) 03/21/25 02:12 Ammonia 72 umol/L (16-60) H 03/17/25 13:28 Troponin T Baseline 47 ng/L (0-15) H 03/18/25 08:44 Troponin T 120 Minute 51.72 ng/L (0-15) H 03/18/25 10:34 Delta Troponin T 4.72 ABS# (0-10) 03/18/25 10:34 Troponin T Hi Sens 6Hr 53.46 ng/L (0-15) H 03/18/25 13:53 Troponin T Hi Sens 6Hr Delta 6.46 ng/L (0-12) 03/18/25 13:53 C-Reactive Protein 29.4 mg/L (0.0-4.9) H 03/17/25 13:28 NT-Pro-B Natriuret Pep 192 pg/mL (0-125) H 03/17/25 13:28 Total Protein 6.2 g/dL (6.6-8.7) L 03/21/25 02:12 Albumin 3.0 g/dL (3.5-5.2) L 03/21/25 02:12 Globulin 3.2 g/dL (1.3-4.6) 03/21/25 02:12 TSH 4.81 uIU/mL (0.27-4.20) H 03/17/25 13:28 Ur Random Sodium < 20 mmol/L 03/19/25 14:31 Vitals Last Vital Signs Temp 97.9 F 03/21/25 08:00 Pulse 87 03/21/25 08:00 Resp 26 H 03/21/25 08:00 BP 123/92 03/21/25 08:00 Pulse Ox 91 03/21/25 08:00 O2 Del Method Nasal Cannula 03/21/25 08:00 O2 Flow Rate 2 03/21/25 07:42 Discharge Plan Discharge Patient Disposition: Xfer SNF Condition: Stable Prescriptions: New lidocaine 5 % Adhesive Patch,Medicated 2 patch topical [id number] Qty: 30 0RF Continued vitamin B complex [Vitamins B Complex] Tablet 1 tab PO DAILY@07 diltiazem HCl [Cardizem CD] 120 mg capsule,extended release 24hr 120 mg PO DAILY@07 levothyroxine 50 mcg tablet 50 mcg PO DAILY@06 (DME) CAM BOOT See Rx Instructions .Route .MEDSUPPLY Qty: 1 0RF Rx Instructions: As directed (DME) Wheel chair with elevated foot rests and seat cushion See Rx Instructions .Route .MEDSUPPLY Qty: 1 0RF Rx Instructions: As directed by HOME ascorbic acid (vitamin C) 1,000 mg tablet extended release 1,000 mg PO Q12H 30 Days Qty: 60 2RF cholecalciferol (vitamin D3) 25 mcg (1,000 unit) capsule 25 mcg PO DAILY 30 Days Qty: 30 2RF docusate sodium 100 mg capsule 100 mg PO DAILY bumetanide 1 mg tablet 2 mg PO BID bisacodyl 5 mg tablet,delayed release (DR/EC) 5 mg PO DAILY polyethylene glycol 3350 [Miralax] 17 gram/dose powder 17 g PO DAILY alum-mag hydroxide-simeth [Mylanta Maximum Strength] 400-400-40 mg/5 mL suspension 30 ml PO QID PRN (Reason: Constipation) Preparation H 0.25-14-74.9 % ointment 1 applic ID Q6H naloxone [Narcan] 4 mg/actuation spray,non-aerosol 4 mg intranasal Q2M PRN (Reason: Allergic Symptoms) Rx Instructions: spray 1 dose into ONE nostril; alternate nostrils w each dose until help arrives lactulose 10 gram/15 mL solution 45 g PO QID (DME) [place] Boot for the Right Foot See Rx Instructions .Route .MEDSUPPLY Qty: 1 0RF Rx Instructions: As directed The Lesa Davila fluticasone propionate [Flonase Allergy Relief] 50 mcg/actuation spray,suspension 2 spray intranasal DAILY@07 albuterol sulfate 90 mcg/actuation HFA aerosol inhaler 1 puff INHALATION Q4H PRN (Reason: shortness of breath/wheezing) cetirizine [Zyrtec] 10 mg Tablet 10 mg PO DAILY@07 midodrine 5 mg tablet 5 mg PO TID potassium chloride 20 mEq Tablet Extended Release 20 meq PO BID@07,19 gabapentin 100 mg Capsule 100 mg PO TID levetiracetam 500 mg tablet 1,000 mg PO BID ammonium lactate 12 % Lotion 1 applic TOPICAL BID amiodarone 200 mg tablet 200 mg PO DAILY baclofen 10 mg tablet 10 mg PO BID Artificial Tears (PF) Dropperette 1 drp OPHTHALMIC (EYE) QID PRN (Reason: dry eyes ) ondansetron HCl 8 mg tablet 8 mg PO Q8H magnesium hydroxide [Milk of Magnesia] 400 mg/5 mL Suspension 30 ml PO DAILY PRN (Reason: constipation ) carboxymethylcellulose sodium [Refresh Tears] 0.5 % Drops 1 drp OPHTHALMIC (EYE) DAILY Fleet Enema 19-7 gram/118 mL Enema 118 ml ID DAILY PRN (Reason: Constipation) thiamine mononitrate (vit B1) 100 mg Tablet 100 mg PO DAILY Saccharomyces boulardii 10 billion cell Capsule 10,000 mmu cells PO DAILY tramadol 50 mg tablet 100 mg PO TID PRN (Reason: pain) calcium carbonate 500 mg calcium (1,250 mg) tablet 1,000 mg PO DAILY spironolactone 50 mg tablet 100 mg PO DAILY@07 alfuzosin 10 mg tablet extended release 24 hr 10 mg PO DAILY@07 Rx Instructions: administer after the same meal each day acetaminophen [Tylenol] 325 mg Tablet 325 - 650 mg PO Q4H PRN (Reason: Pain) Discharge Orders: Discharge Order (Routine); Ordered 03/21/25 Ordered By: Max Goodson Referrals: [facility] [Outside] Indy Lemos FNP [Nurse Practitioner, Cardiology] - 2 weeks Referral Note: We have notified your physician's clinic of the need for a follow-up appointment to be scheduled. If you have not heard from them within the next 2 business days, please call them directly. Clarissa Ramirez NP [Primary Care Provider, Family Practice] - 4-7 days Referral Note: Patient is scheduled for an sleep sleep study 05/02/25 @ 8:00p.m. Discharge Activity: Oxygen as instructed Patient Instructions: Lidocaine Patch (On the skin) (Lidoderm, Novaplus Lidocaine), Cirrhosis of the Liver (DC), Sepsis (DC), CHF Stoplight, Chest Pain Stoplight, Opioid Safety, Patient Portal & Stephany Instructions Activity Restrictions/Additional Instructions: Please continue fluid restriction 1.5 L total per 24 hours. Continue follow-up with cardiology, GI with regards to your liver, and seek follow-up with nephrology for continued assessment of your chronic kidney disease. Continue oxygen 2 L nasal cannula, wean off as tolerating. Target oxygen satu ration 88-92%. Please follow-up for sleep study due to suspected sleep apnea. Maintain nighttime nasal cannula oxygen of 3 L until sleep study is done. Discharge Attestations Time Spent in Discharge Care*: greater than 30 min Status at Discharge: Cognitive status at discharge: cognitively intact , Behavioral status at discharge: [facility] , Quality Metrics Clinical Quality Measures [ No reported AMI, CVA or VTE this stay] Coding Level of Care Code 87263 Total time (in minutes) for Discharge: 45 Diagnoses Chronic kidney disease N18.9 Hyponatremia E87.1
--- NOTE | 2025-03-21 14:02 | PC.NURSE ---
Report called to Lenore with [facility] at 1400. All questions answered. [facility] and they stated it would be a while before they're able to get to him.
--- NOTE | 2025-03-21 14:07 | PC.NURSE ---
I called back to [facility] and let them know that we have arranged stretcher transport through [facility]. Radha verbalizes understanding and asked that we update with a time when we receive it from [facility].
[2025-03-21] MEDS: morphine 4 mg/mL SDV 1 mL 2 MG IVP (14:28)
[2025-03-21 16:00] VITALS: BP 113/67; PULSE 69; RESP 11; TEMP 36.4; O2SAT 97
== END 2025-03-21 18:16 | disposition intermediate care facility (04) | DRG 291 ==
LOC: ER 14:09 → CSU 16:47
PROVIDERS: Hospitalist; Admitting Provider Internal Medicine; Emergency Provider Family Medicine; PCP Nurse Practitioner Family; Visit Provider Internal Medicine
DX: I13.0 Hypertensive heart and chronic kidney disease with heart failure and stage 1 through stage 4 chronic kidney disease, or unspecified chronic kidney disease (principal); I50.33 Acute on chronic diastolic (congestive) heart failure; E87.1 Hypo-osmolality and hyponatremia; Z68.41 Body mass index [BMI] 40.0-44.9, adult; I48.20 Chronic atrial fibrillation, unspecified; I85.00 Esophageal varices without bleeding; N18.30 Chronic kidney disease, stage 3 unspecified; K72.10 Chronic hepatic failure without coma; K70.30 Alcoholic cirrhosis of liver without ascites; E66.01 Morbid (severe) obesity due to excess calories; J44.9 Chronic obstructive pulmonary disease, unspecified; I73.9 Peripheral vascular disease, unspecified; I25.10 Atherosclerotic heart disease of native coronary artery without angina pectoris; M14.60 Charcot's joint, unspecified site; R07.89 Other chest pain; G62.1 Alcoholic polyneuropathy; E03.9 Hypothyroidism, unspecified; Z87.891 Personal history of nicotine dependence
CPT/HCPCS: 36415; 36600; 70491; 71045; 71275; 80048; 80051; 80053; 82140; 82330; 82805; 83605; 83735; 83880; 83935; 84300; 84443; 84484; 84550; 85025; 85378; 85610; 86140; 93005; 93010; 93306; 94664; 94762; 96374; 96376; 99285; G0378; J1938; J2270; J3490; J9999; P9047; Q3014

== ENCOUNTER → 2025-04-29 11:44 | Outpatient (BNVA) | payer MEDICARE, MEDICAID, SELFPAY | PROVIDERS: PCP Nurse Practitioner Family; Visit Provider Student in an Organized Health Care Education/Training Program | DX: M25.512 Pain in left shoulder (principal) | CPT/HCPCS: 20610; 77002; J3301; J9999 ==